=== PATIENT | male | born 1940 | race Caucasian/White ===

== ENCOUNTER → 2016-12-11 | Outpatient (CLI) | payer MEDICARE, OTHER ==
[~2016-12-11] MED LIST: ACET-461 PO; ACET325T49; ACHD5005 PO; ALBU17AE23; ALBU17AE23 IH; ALBU18HF2 INH; ALBU8.5H2 IH; AMLO10TA82 PO; ASPI-892 PO; ATEN25TA PO; ATOR40TA PO; ATOR40TA70 PO; AZEL137S7 NS; AZEL6DRO5 OP; AZELASTINE 0.05% OU; CETI10TA17 PO; CHOL10003 PO; CHOL2000 PO; CITA40TA19 PO; CLOP75TA PO; CLOP75TA28 PO; CTLP20T PO; CYCL10TA9 PO; DCS100C PO; DEXL60CA5 PO; DIPH1TAB25 PO; DOCU100T7 PO; DULO60CA58 PO; ESCI20TA2; FAMO40TA6 PO; FISH OIL 1,2001 EAC1 PO; FLUO20CA42 PO; FRSM40T PO; GABA600T2 PO; HYDR-2941 PO; HYDR-34 PO; HYDR-3816 PO; HYDR1TAB66 PO; IPRA0.2S51 IH; IPRA30SP NS; IPRATROPIUM 0.06% NSEACH; LACT1CAP8 PO; LEVO5TAB2; LEVO750T39 PO; LOSA100T16 PO; LOSA100T28 PO; MELO-195 PO; METR500T PO; NFIPRATRNS NS; NITR0.3T6 SL; NTR.4SL SL; OMEP-10; ONDN4T PO; PANT40SU PO; PNT40TEC PO; PREG100C PO; RT-ALBUINH IH; SENN1TAB76 PO; SIMV80TA3 PO; ZOLP10TA5 PO; ZYRTEC OTC PO; [UNRECOGNIZED DRUG - SUPPLY]
[2016-12-11 15:12] LABS: RED BLOOD COUNT 4.67 10^6/uL (4.35-5.85)
--- NOTE | 2016-12-11 15:19 | Diagnostic Imaging Report ---
INDICATION: Cough and congestion with shortness of breath x 4 days. TECHNIQUE: Two view chest, 3:09 p.m. CORRELATION STUDY: 10/19/2015. FINDINGS: The heart size, mediastinal configuration and pulmonary vasculature are within normal limits. Lung grant are mildly hyperinflated. There is suggestion of perhaps minimal increased density at the left lung base which may reflect minimal atelectasis or less likely infiltrate. Multilevel degenerative changes with bridging osteophytes of the thoracic spine. Old healed right superior rib fractures. IMPRESSION: Suggestion of a very small area of atelectasis or early developing infiltrate at the left lung base superimposed on hyperinflated lung grant. Dictated by: Dictated on workstation # [id number]
== END ==
LOC: RAD 14:19
PROVIDERS: ATTEND Nurse Practitioner
DX: R05 Cough (principal); R09.89 Other specified symptoms and signs involving the circulatory and respiratory systems
CPT/HCPCS: 36415; 71020; 85027

== ENCOUNTER 2016-12-25 10:10 | Observation (INO) | payer MEDICARE, OTHER ==
[~2016-12-25] VITALS: Ht 177.8 cm; Wt 107.6 kg
[~2016-12-25 10:10] MED LIST changes: -ALBU18HF2 INH; -CYCL10TA9 PO; -PREG100C PO
[2016-12-25] MEDS ORDERED: NS IV 1000 ML 3,000 ML IV PRN (10:30)
[2016-12-25 11:05] LABS: BASOPHILS % (AUTO) 0 % (0-10); EOSINOPHILS # (AUTO) 0.1 10^3/uL (0.0-0.3); EOSINOPHILS % (AUTO) 2 % (0-10); LYMPHOCYTES # (AUTO) 1.5 X 10^3 (1.0-4.0); LYMPHOCYTES % (AUTO) 16 % (12-44); MEAN CORPUSCULAR HEMOGLOBIN 30 PG (25-34); MEAN CORPUSCULAR HGB CONC 33 G/DL (32-36); MEAN CORPUSCULAR VOLUME 91 FL (80-99); MEAN PLATELET VOLUME 9.9 FL (7.4-10.4); MONOCYTES # (AUTO) 1.4 X 10^3 (0.0-1.0); MONOCYTES % (AUTO) 15 % (0-12); NEUTROPHILS % (AUTO) 67 % (42-75); PLATELET COUNT 212 10^3/uL (130-400); RED BLOOD COUNT 4.82 10^6/uL (4.35-5.85); RED CELL DISTRIBUTION WIDTH 14.9 % (10.0-14.5); WHITE BLOOD COUNT 9.1 10^3/uL (4.3-11.0)
--- NOTE | 2016-12-25 11:07 | Diagnostic Imaging Report ---
INDICATION: Hypotension. Portable chest 10:54 a.m. Heart size and pulmonary vascularity are normal. Lungs are clear. There are no effusions or pneumothoraces. IMPRESSION: Negative chest. Dictated by: Dictated on workstation # [id number]
[2016-12-25 11:15] LABS: PROTHROMBIN TIME PATIENT 12.9 SEC (12.2-14.7)
[2016-12-25 11:24] LABS: ALANINE AMINOTRANSFERASE 44 U/L (0-55); ALBUMIN 3.3 G/DL (3.2-4.5); ANION GAP 7 MMOL/L (5-14); ASPARTATE AMINO TRANSFERASE 22 U/L (5-34); BILIRUBIN,TOTAL 0.8 MG/DL (0.1-1.0); BLOOD UREA NITROGEN 38 MG/DL (7-18); BUN/CREATININE RATIO 37; CALCIUM 8.4 MG/DL (8.5-10.1); CARBON DIOXIDE 24 MMOL/L (21-32); CHLORIDE 105 MMOL/L (98-107); CREATININE SERUM 1.03 MG/DL (0.60-1.30); GFR ESTIMATED > 60; GLUCOSE 96 MG/DL (70-105); POTASSIUM 4.8 MMOL/L (3.6-5.0); SODIUM 136 MMOL/L (135-145)
--- NOTE | 2016-12-25 11:26 | ED General ---
General Chief Complaint: Cardiac/General Problems Stated Complaint: LOW BLOOD PRESSURE Nursing Triage Note: ARRIVED VIA WC FROM HOME. STATES HIS BP HAS BEEN LOW X2 DAYS ET UNABLE TO GET IT UP. Nursing Sepsis Screen: No Definite Risk Source of Information: Patient Exam Limitations: No Limitations History of Present Illness Time Seen by Provider: 10:15 Initial Comments Here from home with report of low blood pressure over the last couple of days. He is very weak when he tries to get up. Recently treated for pneumonia but states that is improved. Denies nausea or vomiting. Denies fevers. Does report 20 pound weight loss in the last couple of months. His is in the hospital and he is at home tending for himself with respect to meals. He admits to not eating very much and states he is drinking okay but not sure. He states that his blood pressure home was too low for his blood pressure cuff to read Timing/Duration: 2-3 Days, Getting Worse Severity: Moderate Associated Systoms: No Chest Pain, No Fever/Chills, No Nausea/Vomiting, No Shortness of Air, Weakness Allergies and Home Medications Allergies Coded Allergies: Sulfa (Sulfonamide Antibiotics) (Verified Allergy, Unknown, 08/20/15) Home Medications Acetaminophen 500 Mg Tablet, 1,000 MG PO Q6H PRN, (Reported) TAKES 2 (500 MG) TABLETS Albuterol Sulfate 18 Gm Hfa.aer.ad, 2 PUFF INH Q4H PRN for SHORTNESS OF BREATH, (Reported) Aspirin 81 Mg Tablet., 81 MG PO DAILY, (Reported) Atenolol 25 Mg Tablet, 25 MG PO BID, (Reported) Atorvastatin Calcium 40 Mg Tablet, 40 MG PO HS, (Reported) Clopidogrel Bisulfate 75 Mg Tablet, 75 MG PO EVERY OTHER DAY, (Reported) Dexlansoprazole 60 Mg Cap., 60 MG PO DAILY, (Reported) Docusate Sodium 100 Mg Capsule, 100 MG PO BID PRN for CONSTIPATION, (Reported) Duloxetine HCl 60 Mg Capsule., 60 MG PO BID, (Reported) Famotidine 40 Mg Tablet, 40 MG PO HS, (Reported) Gabapentin 600 Mg Tablet, 600 MG PO TID, (Reported) Hydrocodone/Acetaminophen 1 Each Tablet, 1 TAB PO TID PRN for PAIN, (Reported) Ipratropium [place] 15 Ml Naspr, 2 SPRAYS NS DAILY PRN for ALLERGIES, (Reported) Losartan Potassium 100 Mg Tablet, 100 MG PO DAILY, (Reported) Nitroglycerin 0.4 Mg Tab, 0 SL PRN, (Reported) 1 TAB EVERY 5 MINUTES X 3 DOSES NEEDED FOR CHEST PAIN [place]-3 Fatty Acids/Fish Oil 1 Each Capsule, 1,200 MG PO DAILY, (Reported) Pregabalin 100 Mg Capsule, 100 MG PO BID, (Reported) Zolpidem Tartrate 10 Mg Tablet, 10 MG PO HS, (Reported) Constitutional: see HPI, No chills, No fever, weakness EENTM: see HPI Respiratory: no symptoms reported, No short of breath, No wheezing Cardiovascular: No chest pain, edema, No palpitations Gastrointestinal: No abdominal pain, No nausea, No vomiting Genitourinary: no symptoms reported, No dysuria, No pain Musculoskeletal: No back pain, muscle weakness Skin: lesions (abrasion to the forehead from fall) Psychiatric/Neurological: Denies Headache, Weakness Hematologic/Lymphatic: No Symptoms Reported All Other Systems Reviewed Negative Unless Noted: Yes Past Iigvgkk-Yjcsuf-Clkvtp Hx Patient Social History Alcohol Use: Occasionally Uses Recreational Drug Use: No Smoking Status: Former Smoker Former Smoker/When Quit: December 30, 2011 Recent Foreign Travel: No Contact w/Someone Who Travel: No Recent Infectious Disease Expo: Yes Recent Hopitalizations: Yes Immunizations Up To Date Tetanus Booster (TDap): More than 5yrs PED Vaccines UTD: No Date of Pneumonia Vaccine: May 31, 2014 Date of Influenza Vaccine: May 31, 2015 Surgeries HX Surgeries: Yes (back, prostate, colonoscopy, CARDIAC CATH/STENT) Surgeries: Cardiac, Coronary Stent, Eye Surgery, Orthopedic Respiratory Hx Respiratory Disorders: Yes (COPD) Respiratory Disorders: Pneumonia, Sleep Apnea, COPD Cardiovascular Hx Cardiac Disorders: Yes (STENTS) Cardiac Disorders: Coronary Artery Disease, High Cholesterol, Hypertension Neurological Hx Neurological Disorders: No Reproductive System Hx Reproductive Disorders: No Sexually Transmitted Disease: No HIV/AIDS: No Genitourinary Hx Genitourinary Disorders: Yes Gastrointestinal Hx Gastrointestinal Disorders: Yes (ABDOMINAL PAIN AT TIMES) Gastrointestinal Disorders: Gastroesophageal Reflux, Diverticulosis, Hemorrhoids Musculoskeletal Hx Musculoskeletal Disorders: Yes (ARTHRITIS "ALL OVER") Musculoskeletal Disorders: Arthritis Endocrine Hx Endocrine Disorders: No HEENT HX ENT Disorders: No Loss of Vision: Denies Hearing Impairment: Denies Cancer Hx Cancer: No Psychosocial Hx Psychiatric Problems: Yes Behavioral Health Disorders: Depression Integumentary HX Skin/Integumentary Disorder: No Blood Transfusions Hx Blood Disorders: No Reviewed Nursing Assessment Reviewed/Agree w Nursing PMH: Yes Family Medical History Significant Family History: No Pertinent Family Hx Family Medial History: Patient reports no known family medical history. Physical Exam-Suspected Sepsis Physical Exam Vital Signs Vital Sign - Last 12Hours 12/25/16 10:10 Temp 97.4 Pulse 74 Resp 16 B/P (MAP) 77/56 Pulse Ox 100 Capillary Refill : Less Than 3 Seconds Blood Pressure Mean: 63 General Appearance: WD/WN, Mild Distress (weakness) HEENT: PERRL/EOMI, Pharynx Normal Neck: Non Tender, Supple Respiratory: Lungs Clear, Normal Breath Sounds Cardiovascular: Regular Rate, Rhythm, No Murmur Gastrointestinal: Non Tender, Soft Back: Normal Inspection, No CVA Tenderness, No Vertebral Tenderness Extremity: Normal Range of Motion, Non Tender, Pedal Edema (1+ bilateral lower extremities) Neurologic/Psychiatric: Alert, Oriented x3, Motor Weakness (global) Skin: warm/dry, pallor, other (2 x 2 centimeter abrasion to the center of the forehead at hairline.) Focused Exam Lactic Acid Level Laboratory Tests Test 12/25/16 10:46 Lactic Acid Level 1.12 MMOL/L (0.50-2.00) Progress/Results/Core Measures Suspected Sepsis Recent Fever Within 48 Hours: Yes Infection Criteria Present: Suspected New Infection New/Unexplained Altered Menta: No Sepsis Screen: No Definite Risk Sepsis Diagnosis: SIRS Temperature:97.4 Pulse: 74 Respiratory Rate: 16 Laboratory Tests 12/25/16 10:46: White Blood Count 9.1 Blood Pressure 77 /56 Mean: 63 Laboratory Tests 12/25/16 10:46: Creatinine 1.03, INR Comment 1.0, Platelet Count 212, Total Bilirubin 0.8 Results/Orders Lab Results Laboratory Tests Test 12/25/16 10:46 12/25/16 11:23 Range/Units White Blood Count 9.1 4.3-11.0 10^3/uL Red Blood Count 4.82 4.35-5.85 10^6/uL Hemoglobin 14.6 13.3-17.7 G/DL Hematocrit 44 40-54 % Mean Corpuscular Volume 91 80-99 FL Mean Corpuscular Hemoglobin 30 25-34 PG Mean Corpuscular Hemoglobin Concent 33 32-36 G/DL Red Cell Distribution Width 14.9 H 10.0-14.5 % Platelet Count 212 130-400 10^3/uL Mean Platelet Volume 9.9 7.4-10.4 FL Neutrophils (%) (Auto) 67 42-75 % Lymphocytes (%) (Auto) 16 12-44 % Monocytes (%) (Auto) 15 H 0-12 % Eosinophils (%) (Auto) 2 0-10 % Basophils (%) (Auto) 0 0-10 % Neutrophils # (Auto) 6.0 1.8-7.8 X 10^3 Lymphocytes # (Auto) 1.5 1.0-4.0 X 10^3 Monocytes # (Auto) 1.4 H 0.0-1.0 X 10^3 Eosinophils # (Auto) 0.1 0.0-0.3 10^3/uL Basophils # (Auto) 0.0 0.0-0.1 10^3/uL Prothrombin Time 12.9 12.2-14.7 SEC INR Comment 1.0 0.8-1.4 Activated Partial Thromboplast Time 26 24-35 SEC Sodium Level 136 135-145 MMOL/L Potassium Level 4.8 3.6-5.0 MMOL/L Chloride Level 105 98-107 MMOL/L Carbon Dioxide Level 24 21-32 MMOL/L Anion Gap 7 5-14 MMOL/L Blood Urea Nitrogen 38 H 7-18 MG/DL Creatinine 1.03 0.60-1.30 MG/DL Estimat Glomerular Filtration Rate > 60 BUN/Creatinine Ratio 37 Glucose Level 96 70-105 MG/DL Lactic Acid Level 1.12 0.50-2.00 MMOL/L Calcium Level 8.4 L 8.5-10.1 MG/DL Total Bilirubin 0.8 0.1-1.0 MG/DL Aspartate Amino Transf (AST/SGOT) 22 5-34 U/L Alanine Aminotransferase (ALT/SGPT) 44 0-55 U/L Alkaline Phosphatase 71 40-136 U/L Troponin I < 0.30 <0.30 NG/ML Total Protein 6.0 L 6.4-8.2 G/DL Albumin 3.3 3.2-4.5 G/DL Urine Color YELLOW Urine Clarity CLEAR Urine pH 6 5-9 Urine Specific [place] 1.015 L 1.016-1.022 Urine Protein NEGATIVE NEGATIVE Urine Glucose (UA) NEGATIVE NEGATIVE Urine Ketones NEGATIVE NEGATIVE Urine Nitrite NEGATIVE NEGATIVE Urine Bilirubin NEGATIVE NEGATIVE Urine Urobilinogen NORMAL NORMAL MG/DL Urine Leukocyte Esterase NEGATIVE NEGATIVE Urine RBC (Auto) NEGATIVE NEGATIVE Urine RBC NONE /HPF Urine WBC NONE /HPF Urine Squamous Epithelial Cells 0-2 /HPF Urine Crystals NONE /LPF Urine Bacteria NEGATIVE /HPF Urine Casts NONE /LPF Urine Mucus NEGATIVE /LPF Urine Culture Indicated NO My Orders Orders - CALIN QUILES MD Cbc With Automated Diff (12/25/16 10:25) Comprehensive Metabolic Panel (12/25/16 10:25) Lactic Acid Analyzer (12/25/16 10:25) Blood Culture (12/25/16 10:25) Sputum Culture (12/25/16 10:25) Ua Culture If Indicated (12/25/16 10:25) Protime With Inr (12/25/16 10:25) Partial Thromboplastin Time (12/25/16 10:25) Chest 1 View, Ap/Pa Only (12/25/16 10:25) O2 (12/25/16 10:25) Saline Lock/Iv-Start (12/25/16 10:25) Saline Lock/Iv-Start (12/25/16 10:25) Ekg Tracing (12/25/16 10:25) Troponin I (12/25/16 10:25) Vital Signs Adult Sepsis Patie Q1HR (12/25/16 10:25) Remove Rings In Anticipation O (12/25/16 10:25) Ns Iv 1000 Ml (Sodium Chloride 0.9%) (12/25/16 10:30) Ct Head Wo (12/25/16 11:26) Medications Given in ED Current Medications Medications Dose Ordered Sig/Zohreh Route Start Time Stop Time Status Last Admin Dose Admin Sodium Chloride 3,000 ml @ 1,500 mls/hr PRN PRN IV 12/25/16 10:30 12/25/16 10:35 1,500 MLS/HR Vital Signs/I&O Vital Sign - Last 12Hours 12/25/16 12/25/16 10:10 12:00 Temp 97.4 Pulse 74 57 60 64 Resp 16 B/P (MAP) 77/56 Pulse Ox 100 Capillary Refill : Less Than 3 Seconds Blood Pressure Mean: 63 Progress Note : Progress Note Seen and evaluated. Initial blood pressure 70s over 50s. IV, labs, UA, EKG, chest x-ray, normal saline 30 mL/kg bolus, blood cultures and lactic acid ordered. We will get CT head due to fall yesterday and abrasion to the forehead. Monitor patient. Patient is improving throughout course of fluid administration. 1215: Orthostatic blood pressures taken and patient remains orthostatic with respect to blood pressure with a drop of 20 points on systolic pressure. Heart rate is remaining the same and I think this is medication effect. Patient states he feels better but still gets dizzy with standing and still is on the hypotensive side. 1242: I did discuss the case with Dr. Piper. She accepts patient for admission, observation status. She is finishing his third liter of fluid now and blood pressure is 98/49 with heart rate of 60. ECG Initial ECG Impression Date: Dec 25, 2016 Initial ECG Impression Time: 10:19 Initial ECG Rate: 59 Initial ECG Rhythm: Normal Sinus Comment Sinus rhythm with normal axis. No evidence of ST elevation MO. Similar to previous of 10/19/15. Interpreted by me. Diagnostic Imaging Diagonstic Imaging: Xray Plain Films/CT/US/NM/MRI: chest Comments [facility] [place], [place] NAME: STEPHANY TIJERINA [facility] REC#: [id number] PT STATUS: REG ER : 1940 PHYSICIAN: CALIN QUILES MD ADMIT DATE: 12/25/16/ER Draft Date of Exam:12/25/16 CHEST 1 VIEW, AP/PA ONLY INDICATION: Hypotension. Portable chest 10:54 a.m. Heart size and pulmonary vascularity are normal. Lungs are clear. There are no effusions or pneumothoraces. IMPRESSION: Negative chest. Dictated on workstation # [id number] Dict: 12/25/16 1104 Trans: 12/25/16 1107 [facility] [id number] Interpreted by: CALIN ALMANZAR Electronically signed by: Diagonstic Imaging: CT Plain Films/CT/US/NM/MRI: head Comments [facility]. [place], [place] NAME: STEPHANY TIJERINA [facility] REC#: [id number] PT STATUS: REG ER : 1940 PHYSICIAN: CALIN QUILES MD ADMIT DATE: 12/25/16/ER Draft Date of Exam:12/25/16 CT HEAD WO PROCEDURE: CT head without contrast. TECHNIQUE: Multiple contiguous axial images were obtained through the brain without the use of intravenous contrast. INDICATION: Low blood pressure and confusion when the patient stands. No prior similar studies are available for comparison. FINDINGS: There is no intracranial hemorrhage. Prominent periventricular and deep white hypodensities are likely secondary to chronic microvascular ischemic changes. No ventriculomegaly and no extra-axial fluid collection seen. The calvarium, the paranasal sinuses and orbits appear grossly unremarkable. IMPRESSION: White matter findings are suggestive of chronic microvascular ischemic changes. No intracranial hemorrhage. Dictated on workstation # [id number] Dict: 12/25/16 1153 Trans: 12/25/16 1158 [facility] [id number] Interpreted by: JHON DIAZ MD Electronically signed by: Departure Communication Time/Spoke to Admitting Phy: 12:42 Impression Impression: Primary Impression: Orthostatic hypotension Disposition: ADMITTED INPATIENT Condition: Stable Decision to Admit Reason: Admit from ER (General) Decision to Admit/Date: Dec 25, 2016 Time/Decision to Admit Time: 12:42 Departure-Patient Inst. Referrals: KENYETTA PIPER DO (PCP/Family) Primary Care Physician CALIN QUILES MD Dec 25, 2016 11:26
[2016-12-25 11:30] LABS: TROPONIN I < 0.30 NG/ML (<0.30)
[2016-12-25 11:36] LABS: BILIRUBIN,URINE NEGATIVE (NEGATIVE); KETONES,URINE NEGATIVE (NEGATIVE); LEUKOCYTE ESTERASE ,URINE NEGATIVE (NEGATIVE); NITRITE,URINE NEGATIVE (NEGATIVE); PH,URINE 6 (5-9); PROTEIN,URINE NEGATIVE (NEGATIVE); UROBILINOGEN,URINE NORMAL (NORMAL)
[2016-12-25 11:45] LABS: SQUAMOUS EPITHELIAL CELL,UR 0-2 /HPF
--- NOTE | 2016-12-25 11:58 | Diagnostic Imaging Report ---
PROCEDURE: CT head without contrast. TECHNIQUE: Multiple contiguous axial images were obtained through the brain without the use of intravenous contrast. INDICATION: Low blood pressure and confusion when the patient stands. No prior similar studies are available for comparison. FINDINGS: There is no intracranial hemorrhage. Prominent periventricular and deep white hypodensities are likely secondary to chronic microvascular ischemic changes. No ventriculomegaly and no extra-axial fluid collection seen. The calvarium, the paranasal sinuses and orbits appear grossly unremarkable. IMPRESSION: White matter findings are suggestive of chronic microvascular ischemic changes. No intracranial hemorrhage. Dictated by: Dictated on workstation # [id number]
[2016-12-25] MEDS ORDERED: PREG100C PO (12:49)
[2016-12-25] MEDS ORDERED: ALBU18HF2 INH (12:49)
[2016-12-25] MEDS ORDERED: CATHETER FLUSH 10 ML SYR IV PRN (14:30)
[2016-12-25] MEDS ORDERED: CYCL10TA9 PO (14:38)
[2016-12-25 14:40] VITALS: BP 141/74
[2016-12-25] MEDS: NS IV 1000 ML 1,000 ML IV SCH (14:47)
[2016-12-25] MEDS ORDERED: RT-ALBUTEROL SULF 2.5 MG/3 ML PRE-MIX VIAL IH PRN (16:30)
[2016-12-25 16:50] VITALS: BP 104/54
[2016-12-25] MEDS ORDERED: PATIENT MAY USE OWN MEDS, ALL MC SCH (18:15)
[2016-12-25] MEDS ORDERED: TEMAZEPAM 15 MG (RESTORIL) CAP PO PRN (18:15)
[2016-12-25] MEDS ORDERED: RX-ALBUTEROL INHALER (VENTOLIN HFA) 18 GM IH PRN (18:15)
[2016-12-25] MEDS ORDERED: ACETAMINOPHEN 500 MG TAB (TYLENOL) PO PRN (18:15)
[2016-12-25] MEDS ORDERED: CYCLOBENZAPRINE 10 MG (FLEXERIL) TAB PO PRN (18:15)
--- NOTE | 2016-12-25 18:17 | History & Physicial ---
History of Present Illness History of Present Illness Reason for visit/HPI This is a 76 year old male who presented to the emergency room with complaint of low blood pressure and weakness. He was found to be hypotensive in the emergency room with a blood pressure of 77/56 and was severely orthostatic as well. He was given IV boluses in the emergency room but remained hypotensive and orthostatic. He does admit to poor recent oral intake due to recent pneumonia and his being in the hospital. His workup in the emergency room was essentially normal except for his hypotension and orthostasis. It was decided to admit him for observation and monitor his vitals and adjust his blood pressure medications. Date of Admission Dec 25, 2016 at 13:08 I consulted on this patient on 12/25/16 18:12 Attending Physician Haylee Piper DO Admitting Physician Haylee Piper DO Consult Allergies and Home Medications Allergies Coded Allergies: Sulfa (Sulfonamide Antibiotics) (Verified Allergy, Unknown, 08/20/15) Home Medications Acetaminophen 500 Mg Tablet, 1,000 MG PO Q6H PRN for PAIN-MILD, (Reported) TAKES 2 (500 MG) TABLETS Albuterol Sulfate 18 Gm Hfa.aer.ad, 2 PUFF INH Q4H PRN for SHORTNESS OF BREATH, (Reported) Aspirin 81 Mg Tablet.dr, 81 MG PO DAILY, (Reported) Atenolol 25 Mg Tablet, 25 MG PO BID, (Reported) Atorvastatin Calcium 40 Mg Tablet, 40 MG PO DAILY, (Reported) Cyclobenzaprine HCl 10 Mg Tablet, 10 MG PO TID PRN for MUSCLE SPASMS, (Reported) Dexlansoprazole 60 Mg Cap.mp, 60 MG PO DAILY, (Reported) Docusate Sodium 100 Mg Capsule, 100 MG PO HS, (Reported) Duloxetine HCl 60 Mg Capsule.dr, 60 MG PO BID, (Reported) Ipratropium [place] 15 Ml Naspr, 2 SPRAYS NS DAILY PRN for ALLERGIES, (Reported) Losartan Potassium 100 Mg Tablet, 100 MG PO DAILY, (Reported) [place]-3 Fatty Acids/Fish Oil 1 Each Capsule, 1,200 MG PO DAILY, (Reported) Pregabalin 100 Mg Capsule, 100 MG PO BID, (Reported) Past [place]-Hgvvgw-Wqeaak Hx Patient Social History Alcohol Use: Denies Use Recreational Drug Use: No Smoking Status: Never a Smoker Former smoker/When Quit: December 30, 2011 Physical Abuse Screen: No Sexual Abuse: No Recent Foreign Travel: No Contact w/other who traveled: No Recent Hopitalizations: No Recent Infectious Disease Expo: No Immunizations Up To Date Tetanus Booster (TDap): More than 5yrs Date of Pneumonia Vaccine: May 31, 2014 Date of Influenza Vaccine: May 31, 2015 Seasonal Allergies Seasonal Allergies: Yes Surgeries HX Surgeries: Yes (back, prostate, colonoscopy, CARDIAC CATH/STENT) Surgeries: Cardiac, Coronary Stent, Eye Surgery, Orthopedic Respiratory Hx Respiratory Disorders: Yes (COPD) Respiratory Disorders: COPD Cardiovascular Hx Cardiovascular Disorders: Yes (STENTS) Cardiac Disorders: Coronary Artery Disease, High Cholesterol, Hypertension Neurological Hx Neurological Disorders: No Reproductive System Hx Reproductive Disorders: No Sexually Transmitted Disease: No HIV/AIDS: No Genitourinary Hx Genitourinary Disorders: Yes Gastrointestinal Hx Gastrointestinal Disorders: Yes (ABDOMINAL PAIN AT TIMES) Gastrointestinal Disorders: Gastroesophageal Reflux, Diverticulosis, Hemorrhoids Musculoskeletal Hx Musculoskeletal Disorders: Yes (ARTHRITIS "ALL OVER") Musculoskeletal Disorders: Arthritis Endocrine Hx Endocrine Disorders: No HEENT HX ENT Disorders: No Loss of Vision: Denies Hearing Impairment: Denies Cancer Hx Cancer: No Psychosocial Hx Psychiatric Problems: Yes Behavioral Health Disorders: Depression Integumentary HX Skin/Integumentary Disorder: No Blood Transfusions Hx Blood Disorders: No Adverse Reaction to a Blood Tr: No Reviewed Nursing Assessment Reviewed/Agree w Nursing PMH: Yes Family Medical History Significant Family History: No Pertinent Family Hx Family Hx: Patient reports no known family medical history. Constitutional: weakness EENTM: No blurred vision, No dental problems, No double vision, No ear discharge, No ear pain, No epistaxis, No eye pain, No hearing loss, No hoarseness, No mouth pain, No mouth swelling, No no symptoms reported, No nose congestion, No nose pain, No other, No see HPI, No tearing, No throat pain, No throat swelling, No vision loss Respiratory: No no symptoms reported, No see HPI, No cough, No dyspnea on exertion, No hemoptysis, No orthopnea, No phlegm, No short of breath, No stridor , No wheezing, No other Cardiovascular: other (low blood pressure) Gastrointestinal: No RUQ, No LUQ, No RLQ, No LLQ, No no symptoms reported, No see HPI, No abdominal pain, No constipation, No diarrhea, No dysphagia, No hematemesis, No heartburn, No jaundice, No loss of appetite, No melena, No nausea, No vomiting, No other Genitourinary: No no symptoms reported, No see HPI, No decreased output, No discharge, No dysuria, No frequency, No hematuria, No hesitancy, No incontinence , No nocturia, No pain, No other Musculoskeletal: back pain (chronic) Skin: No no symptoms reported, No see HPI, No change in color, No change in hair/nails, No dryness, No hx of skin cancer, No lesions, No lumps, No pruritus , No rash, No other Psychiatric/Neurological: Pre-Existing Deficit, Weakness Physical Exam Vital Signs Vital Sign - Last 12Hours 12/25/16 12/25/16 10:10 14:40 Temp 97.4 Pulse 74 Resp 16 B/P (MAP) 77/56 Pulse Ox 100 O2 Delivery Room Air Capillary Refill : Less Than 3 Seconds General Appearance: No Apparent Distress HEENT: Normal ENT Inspection Neck: Supple Respiratory: Lungs Clear Cardiovascular: Regular Rate, Rhythm, Systolic Murmur Gastrointestinal: Normal Bowel Sounds, Non Tender, Soft Rectal: Deferred Back: No CVA Tenderness Extremity: Non Tender, No Calf Tenderness, No Pedal Edema Neurologic/Psychiatric: Alert, Oriented x3, Motor Weakness (generalized) Skin: Normal Color, Warm/Dry Comments Laboratory Tests 12/25/16 10:46: White Blood Count 9.1, Red Blood Count 4.82, Hemoglobin 14.6, Hematocrit 44, Mean Corpuscular Volume 91, Mean Corpuscular Hemoglobin 30, Mean Corpuscular Hemoglobin Concent 33, Red Cell Distribution Width 14.9H, Platelet Count 212, Mean Platelet Volume 9.9, Neutrophils (%) (Auto) 67, Lymphocytes (%) (Auto) 16, Monocytes (%) (Auto) 15H, Eosinophils (%) (Auto) 2, Basophils (%) (Auto) 0, Neutrophils # (Auto) 6.0, Lymphocytes # (Auto) 1.5, Monocytes # (Auto) 1.4H, Eosinophils # (Auto) 0.1, Basophils # (Auto) 0.0, Prothrombin Time 12.9, INR Comment 1.0, Activated Partial Thromboplast Time 26, Sodium Level 136, Potassium Level 4.8, Chloride Level 105, Carbon Dioxide Level 24, Anion Gap 7, Blood Urea Nitrogen 38H, Creatinine 1.03, Estimat Glomerular Filtration Rate > 60, BUN/Creatinine Ratio 37, Glucose Level 96, Lactic Acid Level 1.12, Calcium Level 8.4L, Total Bilirubin 0.8, Aspartate Amino Transf (AST/SGOT) 22, Alanine Aminotransferase (ALT/SGPT) 44, Alkaline Phosphatase 71, Troponin I < 0.30, Total Protein 6.0L, Albumin 3.3 12/25/16 11:23: Urine Color YELLOW, Urine Clarity CLEAR, Urine pH 6, Urine Specific [place] 1.015L, Urine Protein NEGATIVE, Urine Glucose (UA) NEGATIVE, Urine Ketones NEGATIVE, Urine Nitrite NEGATIVE, Urine Bilirubin NEGATIVE, Urine Urobilinogen NORMAL, Urine Leukocyte Esterase NEGATIVE, Urine RBC (Auto) NEGATIVE, Urine RBC NONE, Urine WBC NONE, Urine Squamous Epithelial Cells 0-2, Urine Crystals NONE, Urine Bacteria NEGATIVE, Urine Casts NONE, Urine Mucus NEGATIVE, Urine Culture Indicated NO Assessment/Plan Assessment and Plan 1. Acute Hypotension with Orthostasis--admit, hydrate, hold BP meds, monitor BP 2. Sinus Bradycardia--hold atenolol and monitor on telemetry 3. COPD--stable 4. Recent pneumonia--resolved 5. Chronic Back Pain--stable Problems: Clinical Quality Measures DVT/VTE Risk/Contraindication: Risk Factor Score Per Nursin RFS Level Per Nursing on Admit: 4+=Very High HAYLEE PIPER DO Dec 25, 2016 18:17
[2016-12-25 18:25] VITALS: BP 131/61
[2016-12-25 20:05] VITALS: BP 130/74
[2016-12-25] MEDS: Duloxetine HCl 60 MG PO SCH (20:44)
[2016-12-25] MEDS: PREGABALIN 50 MG (LYRICA) CAP PO SCH (20:44)
[2016-12-25] MEDS ORDERED: DOCUSATE SODIUM 100 MG (COLACE) CAP PO SCH (21:00)
[2016-12-25] MEDS ORDERED: ATORVASTATIN 40 MG (LIPITOR) TABLET PO SCH (21:00)
[2016-12-26 00:31] VITALS: BP 128/70
[2016-12-26] MEDS: NS IV 1000 ML 1,000 ML IV SCH (02:30)
[2016-12-26 04:34] VITALS: BP 141/66
[2016-12-26 06:55] LABS: BASOPHILS % (AUTO) 0 % (0-10); EOSINOPHILS # (AUTO) 0.1 10^3/uL (0.0-0.3); EOSINOPHILS % (AUTO) 2 % (0-10); LYMPHOCYTES # (AUTO) 1.9 X 10^3 (1.0-4.0); LYMPHOCYTES % (AUTO) 23 % (12-44); MEAN CORPUSCULAR HEMOGLOBIN 30 PG (25-34); MEAN CORPUSCULAR HGB CONC 33 G/DL (32-36); MEAN CORPUSCULAR VOLUME 93 FL (80-99); MEAN PLATELET VOLUME 10.3 FL (7.4-10.4); MONOCYTES # (AUTO) 1.2 X 10^3 (0.0-1.0); MONOCYTES % (AUTO) 15 % (0-12); NEUTROPHILS % (AUTO) 61 % (42-75); PLATELET COUNT 170 10^3/uL (130-400); RED BLOOD COUNT 4.31 10^6/uL (4.35-5.85); RED CELL DISTRIBUTION WIDTH 15.1 % (10.0-14.5); WHITE BLOOD COUNT 8.1 10^3/uL (4.3-11.0)
[2016-12-26 07:16] LABS: ALANINE AMINOTRANSFERASE 35 U/L (0-55); ALBUMIN 2.9 G/DL (3.2-4.5); ANION GAP 7 MMOL/L (5-14); ASPARTATE AMINO TRANSFERASE 19 U/L (5-34); BILIRUBIN,TOTAL 0.5 MG/DL (0.1-1.0); BLOOD UREA NITROGEN 29 MG/DL (7-18); BUN/CREATININE RATIO 32; CALCIUM 7.8 MG/DL (8.5-10.1); CARBON DIOXIDE 23 MMOL/L (21-32); CHLORIDE 110 MMOL/L (98-107); CREATININE SERUM 0.92 MG/DL (0.60-1.30); GFR ESTIMATED > 60; GLUCOSE 89 MG/DL (70-105); POTASSIUM 4.9 MMOL/L (3.6-5.0); SODIUM 140 MMOL/L (135-145); TOTAL PROTEIN 5.3 G/DL (6.4-8.2)
[2016-12-26 07:30] VITALS: BP 127/74
[2016-12-26] MEDS ORDERED: ASPIRIN E.C. 81 MG (ECOTRIN) TAB PO SCH (09:00)
[2016-12-26] MEDS ORDERED: DEXLANSOPRAZOLE 60 MG PO SCH (09:00)
[2016-12-26] MEDS ORDERED: LOSA100T28 PO (09:08)
[2016-12-26] MEDS ORDERED: ATEN25TA PO (09:08)
--- NOTE | 2016-12-26 09:09 | Discharge Inst-Simple/Standard ---
Discharge Inst-Standard Patient Instructions/Follow Up Plan of Care/Instructions/FU: Fwup with me in 1 week Activity as Tolerated: Yes Discharge Diet: Cardiac Diet KENYETTA BALDWIN DO Dec 26, 2016 09:09
[2016-12-26] MEDS: Duloxetine HCl 60 MG PO SCH (09:13)
--- NOTE | 2016-12-26 09:13 | Discharge Summary ---
Diagnosis/Chief Complaint Date of Admission Dec 25, 2016 at 13:08 Date of Discharge Discharge Date: Dec 26, 2016 Admission Diagnosis Admission Diagnosis 1. Acute Hypotension with Orthostasis--admit, hydrate, hold BP meds, monitor BP 2. Sinus Bradycardia--hold atenolol and monitor on telemetry 3. COPD--stable 4. Recent pneumonia--resolved 5. Chronic Back Pain--stable Discharge Diagnosis 1. Acute Hypotension with Orthostasis--admit, hydrate, hold BP meds, monitor BP 2. Sinus Bradycardia--hold atenolol and monitor on telemetry 3. COPD--stable 4. Recent pneumonia--resolved 5. Chronic Back Pain--stable Reason Hospital Visit This is a 76 year old male who presented to the emergency room with complaint of low blood pressure and weakness. He was found to be hypotensive in the emergency room with a blood pressure of 77/56 and was severely orthostatic as well. He was given IV boluses in the emergency room but remained hypotensive and orthostatic. He does admit to poor recent oral intake due to recent pneumonia and his being in the hospital. His workup in the emergency room was essentially normal except for his hypotension and orthostasis. It was decided to admit him for observation and monitor his vitals and adjust his blood pressure medications. Discharge Summary Hospital Course Hospital Course This is a 76 year old male who presented to the emergency room with complaint of low blood pressure and weakness. He was found to be hypotensive in the emergency room with a blood pressure of 77/56 and was severely orthostatic as well. He was given IV boluses in the emergency room but remained hypotensive and orthostatic. He does admit to poor recent oral intake due to recent pneumonia and his being in the hospital. His workup in the emergency room was essentially normal except for his hypotension and orthostasis. It was decided to admit him for observation and monitor his vitals and adjust his blood pressure medications. He was admitted to the medical floor and his atenolol and cozaar were held. His blood pressure improved with hydration. His pulse also improved up to the 70s from the 50s. He was feeling much better by the following morning and was up ambulating with no weakness and no dizziness. It was decided he could go home with adjustment of his BP meds decreasing his cozaar to 50mg q AM and atenolol to 25mg q HS. He will followup in my office in 1 week. Labs Laboratory Tests 12/25/16 10:46: Red Cell Distribution Width 14.9H, Monocytes (%) (Auto) 15H, Monocytes # (Auto) 1.4H, Blood Urea Nitrogen 38H, Calcium Level 8.4L, Total Protein 6.0L 12/25/16 11:23: Urine Specific Ward 1.015L 12/26/16 05:42: Red Cell Distribution Width 15.1H, Monocytes (%) (Auto) 15H, Monocytes # (Auto) 1.2H, Blood Urea Nitrogen 29H, Calcium Level 7.8L, Total Protein 5.3L, Red Blood Count 4.31L, Hemoglobin 13.0L, Chloride Level 110H, Albumin 2.9L Procedures None. Discharge Physical Examination Allergies: Coded Allergies: Sulfa (Sulfonamide Antibiotics) (Verified Allergy, Unknown, 08/20/15) Vitals & I&Os Vital Signs Date Time Temp Pulse Resp B/P (MAP) Pulse Ox O2 Delivery O2 Flow Rate FiO2 12/26/16 07:30 96.3 70 16 127/74 97 Room Air General Appearance: Alert, Oriented X3, Cooperative, No Acute Distress Respiratory: Clear to Auscultation Cardiovascular: Regular Rate Abdominal: Normal Bowel Sounds, Soft Extremities: No Clubbing, No Cyanosis, No Edema Neuro: Normal Gait, Normal Speech Psych/Mental Status: Mental Status NL, Mood NL Discharge Home Medications Reviewed and agree with Discharge Medication list on patient's Discharge Instruction sheet Instructions to Patient/Family Please see electonic discharge instructions given to patient. Clinical Quality Measures DVT/VTE Risk/Contraindication: Risk Factor Score Per Nursin RFS Level Per Nursing on Admit: 4+=Very High KENYETTA BALDWIN DO Dec 26, 2016 09:13
[2016-12-26] MEDS: PREGABALIN 50 MG (LYRICA) CAP PO SCH (09:26)
== END 2016-12-26 09:08 | disposition home or self-care (01) ==
LOC: EDUNIT# 10:10 → ER 10:12 → UNDOADMOB 13:08 → 4TH 13:08 → UNDODISOB 12-26 11:18
PROVIDERS: ADMIT Family Medicine; ATTEND Family Medicine
DX: I95.1 Orthostatic hypotension (principal); R00.1 Bradycardia, unspecified; J44.9 Chronic obstructive pulmonary disease, unspecified; I10 Essential (primary) hypertension; M54.9 Dorsalgia, unspecified; Z87.01 Personal history of pneumonia (recurrent); Z95.5 Presence of coronary angioplasty implant and graft; Z87.891 Personal history of nicotine dependence
CPT/HCPCS: 36415; 70450; 71010; 80053; 81000; 83605; 84484; 85025; 85610; 85730; 87040; 93005; 94760; 96360; 96361; 99211; G0378

== ENCOUNTER → 2016-12-30 | Outpatient (CLI) | payer MEDICARE, OTHER ==
[~2016-12-30] MED LIST changes: +ALBU18HF2 INH; +CYCL10TA9 PO; +PREG100C PO
--- NOTE | 2017-01-01 08:36 | ECHOCARDIOGRAPHY REPORT ---
DATE OF SERVICE: 12/30/2016 DATE OF SERVICE; 12/30/2016 ORDERING PHYSICIAN: Dr. Evans. PRIMARY PHYSICIAN: Dr. Piper. CLINICAL DIAGNOSIS: Shortness of breath, coronary artery disease. MEASUREMENTS: Left atrium 3.7 Aortic root 3.5 LV diameter, diastolic 4.3. IVS thickness, diastolic 1. LVPW thickness, diastolic 1. DESCRIPTION: Two-dimensional echocardiography shows normal global left ventricular systolic function. The study is technically difficult and not ideal for wall motion analysis. Aortic, mitral and tricuspid valve leaflets, to the extent visualized, seems to have good leaflet excursion. The aortic valve leaflet structure is not very well visualized. There appears to mild mitral annular calcification and mild aortic valve sclerosis. There is no significant pericardial effusion. Doppler imaging does not indicate any significant valvular stenosis. Doppler imaging is indicative of trivial mitral and tricuspid regurgitation. Pulmonary artery systolic pressure is estimated at approximately 25 to 30 mmHg. Good subcostal views are not available. On the views available, there was no evidence of any significant intracardiac shunt. Inferior vena cava appears to be of normal size and does exhibit inspiratory collapse. CONCLUSIONS: 1. Technically difficult study. 2. Normal global left ventricular systolic function with ejection fraction of approximately 50 to 55%. 3. Trivial mitral and tricuspid regurgitation. 4. Pulmonary artery systolic pressure is estimated at 25 to 30 mmHg. Job ID: [id number] DocumentID: [id number] Dictated Date: 12/31/2016 16:16:04 [employer] Date: 01/01/2017 08:07:48 Dictated By: JIM EVANS MD, MA, FACP, FACC,
== END ==
LOC: CARD 10:38
PROVIDERS: ATTEND Internal Medicine Cardiovascular Disease
DX: I25.10 Atherosclerotic heart disease of native coronary artery without angina pectoris (principal); R06.02 Shortness of breath; I65.23 Occlusion and stenosis of bilateral carotid arteries; J43.8 Other emphysema; Z87.891 Personal history of nicotine dependence; E78.4 Other hyperlipidemia; I10 Essential (primary) hypertension; I70.213 Atherosclerosis of native arteries of extremities with intermittent claudication, bilateral legs
CPT/HCPCS: 93306; 93923

== ENCOUNTER 2017-01-16 11:01 | Outpatient (CLI) | payer MEDICARE, OTHER ==
[~2017-01-16] VITALS: Ht 177.8 cm; Wt 107.6 kg
[2017-01-16] MEDS ORDERED: TRIAMCINOLONE ACET (KENALOG-40) 40 MG/ML 1 ML VIAL ONE (11:15)
[2017-01-16] MEDS ORDERED: BUPIVACAINE 0.25% 30 ML (SENSORCAINE) VIAL ONE (11:15)
[2017-01-16 11:21] VITALS: BP 127/57
[2017-01-16 12:00] VITALS: BP 137/57
--- NOTE | 2017-01-16 12:41 | Pain Medicine-Procedure ---
Procedure Pre-Op/Post-Op Diagnosis Diagnosis: disc disorder with radiculopathy, lumbar Indications for Operation Low back pain Attending Surgeon Magui Procedure Date of Service: January 16, 2017 Procedure: Lumbar Epidural Steroid Injection at the L5-S1 level under Fluoroscopic Guidance Procedure: Patient was identified in the holding area. After risks, benefits, and alternatives were discussed with the patient, informed consent was obtained. Patient was brought to the fluoroscopy suite and placed prone on the procedure room table. A time out was performed. Vital signs were monitored throughout the procedure. The patients low back was prepped and draped in the usual sterile fashion. The patients skin was anesthetized using 2% Lidocaine. A Tuohy needle was inserted and advanced to the L5-S1 epidural space under fluoroscopic guidance using the loss of resistance technique and intermittent projection of fluoroscopy. There was no paresthesia with needle placement. The needle position was confirmed in both the AP and lateral view. After negative aspiration 2ml of contrast was injected under live fluoroscopy which showed good spread of the contrast in the epidural space at the appropriate level, there was no intravascular or subarachnoid spread. Again, after negative aspiration for heme or CSF, 2 ml of 0.25% Bupivicaine, 2ml of preservative free normal saline, and 80mg of Kenalog was injected. The needle was removed and a sterile bandage was placed and the patient was transferred to the recovery area in stable condition. After a brief period of observation, patient was discharged to home with no new neurological deficits and no apparent complications. Complications none YAYA MARIE MD January 16, 2017 12:41 pm
== END 2017-01-16 12:02 | disposition home or self-care (01) ==
LOC: CARD 11:01
PROVIDERS: ATTEND Pain Medicine Pain Medicine
DX: M51.16 Intervertebral disc disorders with radiculopathy, lumbar region (principal); Z79.899 Other long term (current) drug therapy; M79.1 Myalgia
CPT/HCPCS: 62323

== ENCOUNTER 2017-04-29 19:43 | Inpatient (IN) | payer MEDICARE, OTHER, MEDICAID ==
[~2017-04-29] VITALS: Ht 157.5 cm; Wt 114.8 kg
[2017-04-29] MEDS ORDERED: DOPamine DRIP 250 ML IV ONE (19:54)
[2017-04-29] MEDS ORDERED: NS IV 1000 ML 1,000 ML IV ONE (20:00)
[2017-04-29] MEDS ORDERED: LACTATED RINGERS 1,000 ML IV ONE (20:00)
[2017-04-29] MEDS ORDERED: DOPamine DRIP 250 ML IV SCH (20:00)
[2017-04-29] MEDS ORDERED: ONDANSETRON 4 MG/2 ML (SDV) Z0FRAN ONE (20:04)
[2017-04-29 20:09] LABS: BASOPHILS # (AUTO) 0.1 10^3/uL (0.0-0.1); BASOPHILS % (AUTO) 2 % (0-10); EOSINOPHILS # (AUTO) 0.2 10^3/uL (0.0-0.3); EOSINOPHILS % (AUTO) 4 % (0-10); LYMPHOCYTES # (AUTO) 1.7 X 10^3 (1.0-4.0); LYMPHOCYTES % (AUTO) 32 % (12-44); MEAN CORPUSCULAR HEMOGLOBIN 32 PG (25-34); MEAN CORPUSCULAR HGB CONC 33 G/DL (32-36); MEAN CORPUSCULAR VOLUME 97 FL (80-99); MONOCYTES % (AUTO) 18 % (0-12); NEUTROPHILS # (AUTO) 2.4 X 10^3 (1.8-7.8); NEUTROPHILS % (AUTO) 45 % (42-75); PLATELET COUNT 220 10^3/uL (130-400); RED BLOOD COUNT 3.88 10^6/uL (4.35-5.85); RED CELL DISTRIBUTION WIDTH 12.5 % (10.0-14.5); WHITE BLOOD COUNT 5.4 10^3/uL (4.3-11.0)
[2017-04-29] MEDS ORDERED: ONDANSETRON 4 MG/2 ML (SDV) Z0FRAN IVP ONE ×2 (20:15→22:30)
[2017-04-29 20:20] LABS: PROTHROMBIN TIME PATIENT 13.7 SEC (12.2-14.7)
[2017-04-29 20:30] LABS: ALBUMIN 3.5 GM/DL (3.2-4.5); BILIRUBIN,TOTAL 0.5 MG/DL (0.1-1.0); CALCIUM 8.3 MG/DL (8.5-10.1); CREATININE SERUM 1.22 MG/DL (0.60-1.30); MAGNESIUM 2.1 MG/DL (1.8-2.4); POTASSIUM 4.1 MMOL/L (3.6-5.0); TOTAL PROTEIN 6.6 GM/DL (6.4-8.2)
[2017-04-29 20:37] LABS: BAND NEUTROPHILS 0 %; BASOPHILS % (MANUAL) 1 %; EOSINOPHILS % (MANUAL) 4 %; LYMPHOCYTES % (MANUAL) 27 %; NEUTROPHILS % (MANUAL) 53 %
[2017-04-29] MEDS ORDERED: fentaNYL INJECTION 100 MCG/2 ML AMP ONE (20:37)
[2017-04-29] MEDS ORDERED: fentaNYL INJECTION 100 MCG/2 ML AMP IVP STA ×2 (20:42→21:14)
--- NOTE | 2017-04-29 20:50 | Diagnostic Imaging Report ---
INDICATION: Hypertensive and bradycardia Semiupright portable view of the chest is obtained. Comparison is made to study of 12/25/2016. FINDINGS: Heart size and pulmonary vascularity are within normal limits, and the lungs are clear, bilaterally. IMPRESSION: Unremarkable chest. Dictated by: Dictated on workstation # [id number]
[2017-04-29] MEDS ORDERED: morphine INJ 10 MG/ML 1ML (SYR OR VIAL) IVP STA ×3 (21:21→22:21)
[2017-04-29] MEDS ORDERED: HEParin 1000 UNIT/ML (10ML VIAL) FOR BOLUS IV SCH (21:45)
[2017-04-29] MEDS ORDERED: ASPIRIN 81 MG CHEW (CHILDREN'S ASA) PO ONE (21:45)
[2017-04-29] MEDS ORDERED: NITROGLYCERIN DRIP 25 MG/D5W 250 ML IV SCH (21:45)
[2017-04-29] MEDS ORDERED: CLOPIDOGREL 300 MG (PLAVIX) TABLET PO ONE (21:45)
[2017-04-29] MEDS ORDERED: PANTOPRAZOLE 40 MG/10 ML (PROTONIX) VIAL IV ONE (22:30)
[2017-04-29] MEDS ORDERED: SCOPOLAMINE 1.5 MG (TRANSDERM-SCOP) PATCH TD ONE (22:45)
[2017-04-29 23:00] VITALS: BP 99/58
[2017-04-29] MEDS ORDERED: morphine INJ 4 MG/ML 1 ML (VIAL/SYRINGE) IV PRN (23:15)
[2017-04-29] MEDS ORDERED: 1/2 NS IV SOLUTION 1,000 ML IV SCH (23:15)
[2017-04-29] MEDS ORDERED: NITROGLYCERIN SUBLINGUAL 0.4 MG TAB (NITROSTAT) SL PRN (23:15)
[2017-04-29] MEDS: D5 1/2 NS 1000 ML IV SOLUTION 1,000 ML IV SCH (23:29)
[2017-04-30] VITALS (24 sets, daily range): BP systolic 94–136; BP diastolic 44–82
[2017-04-30] MEDS: DOPamine DRIP 400 MG/250 ML D5W (PRE-MIX) IV SCH ×4 (01:03→22:01)
[2017-04-30] MEDS: NITROGLYCERIN DRIP 25 MG/250 ML D5W (PRE-MIX) IV SCH ×2 (02:48→22:46)
--- NOTE | 2017-04-30 02:49 | ED General ---
General Chief Complaint: Cardiac/General Problems Stated Complaint: CHEST PAIN WITH ACUTE ISCHEMIC EKG CHANGES Nursing Triage Note: Pt. presented via EMS secondary to hypotension and difficulty staying awake. Pt. was hypotensive and bradycardiac upon EMS arrival. Nursing Sepsis Screen: No Definite Risk Source of Information: Patient Exam Limitations: No Limitations History of Present Illness Time Seen by Provider: 19:50 Initial Comments PT ARRIVES VIA EMS FROM HOME PT STATES HE BECAME VERY WEAK AND TIRED--STATES HE HASN'T FELT WELL ALL DAY WITH GENERALIZED WEAKNESS AND FATIGUE, BUT 30 MINUTES AGO, HE HAD JUST TAKEN HIS EVENING MEDICATIONS ( INCLUDING LYRICA 100 MG, HYDROCODONE 7.5 MG AND ATENOLOL, AMONG OTHERS ) AND SHORTLY AFTER THAT HE BEGAN TO FEEL MUCH WORSE-- THESE ARE ALL NORMAL/REGULAR MEDICATIONS/ REGULAR DOSES AND DID NOT TAKE MORE THAN PRESCRIBED NO SYNCOPE--JUST GENERALIZED WEAKNESS AND TOO WEAK TO STAND PT DENIES CHEST PAIN NO SHORTNESS OF BREATH + NAUSEA, NO VOMITING NO HEADACHE NO VISION CHANGES NO PARESTHESIAS OR MOTOR DEFICITS HAS NOT HAD MUCH INTAKE TODAY, STATES HE HAS BEEN DRINKING WATER, AND HAS VOIDED 3-4 TIMES TODAY NO PROBLEMS URINATING NO ABDOMINAL PAIN PT HAS CHRONIC BACK PAIN AND BILATERAL HIP PAIN AND HAD A TRIAL/TEMPORARY NERVE/ SPINAL STIMULATOR REMOVED [address] 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 BALDWIN GRAINING MACHINE OPERATOR: DR. SPARROW Allergies and Home Medications Allergies Coded Allergies: Sulfa (Sulfonamide Antibiotics) (Verified Allergy, Unknown, 08/20/15) Home Medications Acetaminophen 500 Mg Tablet, 1,000 MG PO Q6H PRN for PAIN-MILD, (Reported) TAKES 2 (500 MG) TABLETS Albuterol Sulfate 18 Gm Hfa.aer.ad, 2 PUFF INH Q4H PRN for SHORTNESS OF BREATH, (Reported) Aspirin 81 Mg Tablet., 81 MG PO DAILY, (Reported) Atenolol 25 Mg Tablet, 25 MG PO HS for 30 Days, #30 Prescribed by: KENYETTA BALDWIN on 12/26/16 0908 Atorvastatin Calcium 40 Mg Tablet, 40 MG PO DAILY, (Reported) Cyclobenzaprine HCl 10 Mg Tablet, 10 MG PO TID PRN for MUSCLE SPASMS, (Reported) Dexlansoprazole 60 Mg Cap.mp, 60 MG PO DAILY, (Reported) Docusate Sodium 100 Mg Capsule, 100 MG PO HS, (Reported) Duloxetine HCl 60 Mg Capsule.dr, 60 MG PO BID, (Reported) Ipratropium [place] 15 Ml Naspr, 2 SPRAYS NS DAILY PRN for ALLERGIES, (Reported) Losartan Potassium 100 Mg Tablet, 50 MG PO DAILY, #30 Take 1/2 tab of 100mg dose in AM Prescribed by: KENYETTA BALDWIN on 12/26/16 0908 [place]-3 Fatty Acids/Fish Oil 1 Each Capsule, 1,200 MG PO DAILY, (Reported) Pregabalin 100 Mg Capsule, 100 MG PO BID, (Reported) Constitutional: see HPI, No chills, No diaphoresis, No dizziness, No fever, malaise, weakness EENTM: no symptoms reported Respiratory: no symptoms reported, No cough, No dyspnea on exertion, No short of breath, No wheezing Cardiovascular: no symptoms reported, No chest pain, No edema, Hx of Intervention, No palpitations, No syncope, vascular heart diseas, other (S/P STENTS IN LEGS, HEART AND CAROTIDS) Gastrointestinal: see HPI, No abdominal pain, No diarrhea, loss of appetite, nausea, No vomiting Genitourinary: no symptoms reported Musculoskeletal: see HPI, back pain, other (BILATERAL HIP PAIN ) Skin: no symptoms reported Psychiatric/Neurological: No Symptoms Reported, Denies Headache, Denies Numbness, Denies Paresthesia, Denies Seizure, Denies Tingling, Denies Tremors, Denies Weakness Hematologic/Lymphatic: No Symptoms Reported Immunological/Allergic: no symptoms reported Past Ygqbcbo-Cjevrd-Bozonu Hx Patient Social History Alcohol Use: Denies Use Recreational Drug Use: No Smoking Status: Former Smoker Type Used: Cigarettes Former Smoker, Quit: Aug 31, 2012 Recent Foreign Travel: No Contact w/Someone Who Travel: No Recent Infectious Disease Expo: No Recent Hopitalizations: No Physical Abuse: No Sexual Abuse: No Immunizations Up To Date Tetanus Booster (TDap): More than 5yrs PED Vaccines UTD: No Date of Pneumonia Vaccine: May 31, 2014 Date of Influenza Vaccine: May 31, 2015 Seasonal Allergies Seasonal Allergies: Yes Surgeries History of Surgeries: Yes (back, prostate, colonoscopy, CARDIAC CATH/STENTS, STENTS IN CAROTID ARTERY, STENTS IN LEGS; TEMPORARY/TRIAL NERVE/SPINAL STIMULATOR) Surgeries: Cardiac, Coronary Stent, Eye Surgery, Orthopedic, Vascular Surgery Respiratory History of Respiratory Disorde: Yes (COPD) Respiratory Disorders: Pneumonia, COPD Currently Using CPAP: No Currently Using BIPAP: No Cardiovascular History of Cardiac Disorders: Yes (STENTS IN HEART, CAROTID ARTERY, LEGS) Cardiac Disorders: Coronary Artery Disease, High Cholesterol, Hypertension, Peripheral Vascular Neurological History of Neurological Disord: No Reproductive System Hx Reproductive Disorders: No Sexually Transmitted Disease: No HIV/AIDS: No Genitourinary History of Genitourinary Disor: Yes Genitourinary Disorders: Prostate Problems Gastrointestinal History of Gastrointestinal Di: Yes (ABDOMINAL PAIN AT TIMES) Gastrointestinal Disorders: Gastroesophageal Reflux, Diverticulosis, Hemorrhoids Musculoskeletal History of Musculoskeletal Dis: Yes (ARTHRITIS "ALL OVER") Musculoskeletal Disorders: Degenerate Disk Disease, Arthritis, Chronic Back Pain Endocrine History of Endocrine Disorders: No HEENT History of HEENT Disorders: No Loss of Vision: Denies Hearing Impairment: Denies Cancer History of Cancer: No Psychosocial History of Psychiatric Problem: Yes Behavioral Health Disorders: Depression Suicide Risk Score: 0 Integumentary History of Skin or Integumenta: No Blood Transfusions History of Blood Disorders: No Adverse Reaction to a Blood Tr: No Family Medical History Significant Family History: No Pertinent Family Hx Family Medial History: Patient reports no known family medical history. Physical Exam Vital Signs Vital Sign - Last 12Hours 04/29/17 04/29/17 04/29/17 20:09 20:16 23:00 Temp 96.8 Pulse 54 Resp 14 B/P (MAP) 71/24 Pulse Ox 98 O2 Delivery Nasal Cannula O2 Flow Rate 2.00 FiO2 100 Capillary Refill : Greater Than 3 Seconds General Appearance: Other (LETHARGIC, KEEPS EYES CLOSED, BUT DOES OPEN THEM ON COMMAND AND ANSWERS ALL QUESTIONS APPROPRIATELY. ) HEENT: PERRL/EOMI, Other (ORAL MUCOSA DRY) Neck: Non Tender Respiratory: Normal Breath Sounds, No Accessory Muscle Use, No Respiratory Distress Cardiovascular: Regular Rate, Rhythm, No Murmur Gastrointestinal: Normal Bowel Sounds, No Organomegaly, No Pulsatile Mass, Non Tender, Soft Back: No CVA Tenderness, Other (TENDERNESS TO GENERAL LUMBAR AREA. 2 PUNCTURE SITES TO UPPER/MID LUMBAR AREA ( ONE ON EACH SIDE OF SPINE) WITH BANDAIDS THAT AREA CLEAN, DRY AND INTACT. NO EVIDENCE OF INFECTION OR BLEEDING OR DRAINAGE OF CSF. ) Extremity: Normal Range of Motion, Non Tender, No Calf Tenderness, Pedal Edema (TRACE BILATERALLY) Neurologic/Psychiatric: Alert (BUT LETHARGIC), Oriented x3, No Motor/Sensory Deficits, sew on operator II-XII Norm as Tested Skin: Warm/Dry, Pallor Focused Exam Evaluation Lactate Level Laboratory Tests 04/29/17 20:30: Lactic Acid Level 1.38 Progress/Results/Core Measures Results/Orders Lab Results Laboratory Tests Test 04/29/17 20:00 04/29/17 20:30 04/29/17 22:40 Range/Units White Blood Count 5.4 4.3-11.0 10^3/uL Red Blood Count 3.88 L 4.35-5.85 10^6/uL Hemoglobin 12.3 L 13.3-17.7 G/DL Hematocrit 38 L 40-54 % Mean Corpuscular Volume 97 80-99 FL Mean Corpuscular Hemoglobin 32 25-34 PG Mean Corpuscular Hemoglobin Concent 33 32-36 G/DL Red Cell Distribution Width 12.5 10.0-14.5 % Platelet Count 220 130-400 10^3/uL Mean Platelet Volume 10.0 7.4-10.4 FL Neutrophils (%) (Auto) 45 42-75 % Lymphocytes (%) (Auto) 32 12-44 % Monocytes (%) (Auto) 18 H 0-12 % Eosinophils (%) (Auto) 4 0-10 % Basophils (%) (Auto) 2 0-10 % Neutrophils # (Auto) 2.4 1.8-7.8 X 10^3 Lymphocytes # (Auto) 1.7 1.0-4.0 X 10^3 Monocytes # (Auto) 1.0 0.0-1.0 X 10^3 Eosinophils # (Auto) 0.2 0.0-0.3 10^3/uL Basophils # (Auto) 0.1 0.0-0.1 10^3/uL Neutrophils % (Manual) 53 % Lymphocytes % (Manual) 27 % Monocytes % (Manual) 15 % Eosinophils % (Manual) 4 % Basophils % (Manual) 1 % Band Neutrophils 0 % Blood Morphology Comment NORMAL Prothrombin Time 13.7 12.2-14.7 SEC INR Comment 1.0 0.8-1.4 Activated Partial Thromboplast Time 30 24-35 SEC Sodium Level 138 135-145 MMOL/L Potassium Level 4.1 3.6-5.0 MMOL/L Chloride Level 103 98-107 MMOL/L Carbon Dioxide Level 24 21-32 MMOL/L Anion Gap 11 5-14 MMOL/L Blood Urea Nitrogen 27 H 7-18 MG/DL Creatinine 1.22 0.60-1.30 MG/DL Estimat Glomerular Filtration Rate 58 BUN/Creatinine Ratio 22 Glucose Level 98 70-105 MG/DL Calcium Level 8.3 L 8.5-10.1 MG/DL Magnesium Level 2.1 1.8-2.4 MG/DL Total Bilirubin 0.5 0.1-1.0 MG/DL Aspartate Amino Transf (AST/SGOT) 21 5-34 U/L Alanine Aminotransferase (ALT/SGPT) 17 0-55 U/L Alkaline Phosphatase 63 40-136 U/L Troponin I < 0.30 < 0.30 <0.30 NG/ML B-Type Natriuretic Peptide 73.7 <100.0 PG/ML Total Protein 6.6 6.4-8.2 GM/DL Albumin 3.5 3.2-4.5 GM/DL TSH [place] Testing 4.78 0.35-4.94 UIU/ML Lactic Acid Level 1.38 0.50-2.00 MMOL/L My Orders Orders - MELISSA LYNCH DO Saline Lock/Iv-Start (04/29/17 20:00) Ekg Tracing (04/29/17 20:00) O2 (04/29/17 20:00) Monitor-Rhythm Ecg Trace Only (04/29/17 20:00) Cbc With Automated Diff (04/29/17 20:00) Comprehensive Metabolic Panel (04/29/17 20:00) Lactic Acid Analyzer (04/29/17 20:00) Magnesium (04/29/17 20:00) Protime With Inr (04/29/17 20:00) Partial Thromboplastin Time (04/29/17 20:00) Ua Culture If Indicated (04/29/17 20:00) Blood Culture (04/29/17 20:00) Saline Lock/Iv-Start (04/29/17 20:00) Ns Iv 1000 Ml (Sodium Chloride 0.9%) (04/29/17 20:00) Lactated Ringers (Lr 1000 Ml Iv Solution (04/29/17 20:00) Dopamine Drip (Dopamine Drip) (04/29/17 20:00) Dopamine Drip (Dopamine Drip) (04/29/17 19:54) Ondansetron Injection (Zofran Injectio (04/29/17 20:15) Ondansetron Injection (Zofran Injectio (04/29/17 20:04) Chest 1 View, Ap/Pa Only (04/29/17 20:11) Manual Differential (04/29/17 20:00) Troponin I (04/29/17 20:13) BNP (04/29/17 20:42) Fentanyl Injection (Sublimaze Injection (04/29/17 20:42) Fentanyl Injection (Sublimaze Injection (04/29/17 20:37) Fentanyl Injection (Sublimaze Injection (04/29/17 21:14) Morphine Injection (Morphine Injection (04/29/17 21:21) Aspirin Chewable Tablet (Baby Aspirin Ch (04/29/17 21:45) Clopidogrel Tablet (Plavix Tablet) (04/29/17 21:45) Heparin (Bolus Per Protocol) (Heparin (B (04/29/17 21:45) Nitroglycerin Drip 25 Mg/D5w (Nitroglyce (04/29/17 21:45) Ekg Tracing (04/29/17 21:57) Ekg Tracing (04/29/17 21:57) Morphine Injection (Morphine Injection (04/29/17 22:08) Cortisol Pm (04/29/17 22:15) Thyroid Analyzer (04/29/17 22:15) Ondansetron Injection (Zofran Injectio (04/29/17 22:30) Morphine Injection (Morphine Injection (04/29/17 22:21) Pantoprazole Injection (Protonix Injecti (04/29/17 22:30) Ekg Tracing (04/29/17 22:26) Troponin I (04/29/17 22:27) Scopolamine Patch (Transderm-Scop Patch) (04/29/17 22:45) Medications Given in ED Current Medications Medications Dose Ordered Sig/Zohreh Route Start Time Stop Time Status Last Admin Dose Admin Aspirin 324 mg ONCE ONCE PO 04/29/17 21:45 04/29/17 21:46 DC 04/29/17 21:46 324 MG Clopidogrel Bisulfate 300 mg ONCE ONCE PO 04/29/17 21:45 04/29/17 21:46 DC 04/29/17 21:45 300 MG Lactated Ringer's 1,000 ml @ 0 mls/hr Q0M ONCE IV 04/29/17 20:00 04/29/17 20:02 DC 04/29/17 20:15 0 MLS/HR Ondansetron HCl 8 mg ONCE ONCE IVP 04/29/17 20:15 04/29/17 20:16 DC 04/29/17 20:15 8 MG Sodium Chloride 1,000 ml @ 0 mls/hr Q0M ONCE IV 04/29/17 20:00 04/29/17 20:02 DC 04/29/17 20:15 0 MLS/HR Vital Signs/I&O Vital Sign - Last 12Hours 04/29/17 04/29/17 04/29/17 04/29/17 20:09 20:14 20:16 21:48 Pulse 54 Resp 14 B/P (MAP) 71/24 64/26 96/43 Pulse Ox 98 98 98 O2 Delivery Nasal Cannula O2 Flow Rate 2.00 FiO2 100 04/29/17 04/29/17 04/29/17 04/30/17 22:50 23:00 23:15 00:00 Temp 96.8 Pulse 84 92 Resp 16 B/P (MAP) 99/58 Pulse Ox 98 97 97 O2 Delivery Room Air Nasal Cannula Nasal Cannula Nasal Cannula O2 Flow Rate 4.00 4.00 3.00 04/30/17 04/30/17 04/30/17 00:00 01:00 01:03 Temp 96.8 Pulse 89 79 89 Resp 16 B/P (MAP) 108/63 108/63 Pulse Ox 98 98 O2 Delivery Nasal Cannula Nasal Cannula O2 Flow Rate 4.00 4.00 Blood Pressure Mean: 78 Progress Note : Progress Note BP SHOWED NO IMPROVEMENT WITH FLUID BOLUS, AND CONTINUED TO DROP INTO 60'S/30'S SO DOPAMINE DRIP INITIATED AND BP UP TO MID 80'S TO MID 90'S 2030--PT BEGAN TO C/O MID CHEST PAIN RATES 7-8/10 --REPEAT EKG DONE WHICH SHOWS DIFFUSE ACUTE ISCHEMIC CHANGES. GIVEN FENTANYL WITH PAIN DOWN TO A 3/10 PT CONTINUED TO HAVE WAXING AND WANING OF CHEST PAIN, WITHOUT COMPLETE RELIEF OF PAIN --GIVEN ADDITIONAL FENTANYL AND THEN MORPHINE, WITH IMPROVEMENT IN PAIN OVERALL. 2224--PT NOW WITH INCREASED CHEST PAIN AGAIN--REPEAT EKG DOES NOT SHOW ANY WORSENING, AND SHOWS DECREASE IN ST SEGMENT DEPRESSION AND T-WAVE INVERSION. ORDERS FOR ADDITION OF NITROGLYCERINE DRIP WITH INCREASE IN DOPAMINE DOSE PER DR. GLEZ PAIN BACK DOWN TO 3/10 WITH THE ABOVE AND ADDITIONAL MORPHINE. ECG Initial ECG Impression Time: 19:50 Initial ECG Rate: 53 Initial ECG Rhythm: Normal Sinus Initial ECG Impression: Normal Initial ECG Comparisson: No Previous ECG Available EKG : EKG Time: 20:37 Rate: 87 Rhythm: Normal Sinus (WITH ACUTE SIGNIFICANT ST SEGMENT DEPRESSION AND T- WAVE INVERSION IN INFERIOR AND ANTERIOR-LATERAL LEADS. CHANGED FROM PREVIOUS) Comment EKG#3 AT 2111--NSR, RATE 87. STILL WITH DIFFUSE ST SEGMENT DEPRESSION AND T- WAVE INVERSION, BUT NOT QUITE PRONOUNCED THE ONE DONE AT 2036 EKG#4 AT 2225--NSR, RATE 94. ST SEGMENT DEPRESSION AND T-WAVE INVERSION LESS PRONOUNCED THAN THE ONE DONE AT 2111 Diagnostic Imaging Comments CXR--NO ACUTE PROCESS, PER RADIOLOGIST REPORT @ 2224 Reviewed: Reviewed by Me Critical Care Note Critical Care Total Time (minutes) 2 HOURS Departure Communication (Admissions) Family Conversation DISCUSSED THE SERIOUSNESS / CRITICAL NATURE AND COMPLEXITIES OF PT'S CONDITION WITH PT AND SON. THEY BOTH APPEAR TO UNDERSTAND BOTH PT AND SON STATE THAT PT IS TO BE A DNR, AND HAVE SIGNED PAPERS HERE IN THE PAST FOR THIS. Progress Notes 2044--SPOKE WITH DR. GLEZ, GRAINING MACHINE OPERATOR MICROFILM CAMERA OPERATOR. HE CANNOT ADVISE ON WHETHER TO GIVE ANY ANTICOAGULATION OR ANY MEDICATIONS AT THIS TIME, ( DUE TO RECENT SURGERY, PERSISTENT HYPOTENSION, ETC) HE ADVISES TO CONSULT DR. BURGER, AND ORTHOPEDIC SURGEON 2050--SPOKE WITH DR. BURGER, DIGITAL MEDIA STRATEGIST/CRITICAL CARE PHYSICIAN. HE WILL SEE PT IN CONSULT, HE ADVISES ECHOCARDIOGRAM IN AM, ADDITIONAL LAB, HE CANNOT ADVISE ON WHETHER TO GIVE PT ANTICOAGULATION OR ANY MEDICATIONS AT THIS TIME. 2058--SPOKE WITH DR. FLOWER, ORTHOPEDIC SURGEON MICROFILM CAMERA OPERATOR FOR ORTHO-4 STATES. HE DEFERS TO CARDIOLOGY FOR DECISION ON ANTICOAGULATION. 2104--SPOKE WITH DR. BALDWIN, PT'S PCP. SHE ACCEPTS PT FOR ADMIT AND WILL CONSULT OTHERS. SHE DEFERS TO CARDIOLOGY FOR DECISION ON ANTICOAGULATION 2116--SPOKE WITH DR. GLEZ AGAIN. I WILL ATTEMPT TO CONTACT SPINE SURGEON AND WILL CALL HIM BACK. 2122--SPOKE WITH DR. FLOWER AGAIN AND HE WILL CONTACT DR. BRADY AND HAVE HIM CALL ME 2129--SPOKE WITH DR. BRADY. PT IS NEUROLOGICALLY INTACT, WITH NO MRI CAPABILITIES TONIGHT, AND HAS UNSTABLE VITAL SIGNS, WITH EVIDENCE OF ACUTE CARDIAC EVENT/ISCHEMIA HE ADVISES TO PROCEED WITH ANTICOAGULATION AND TREAT THE ACUTE CARDIAC PROBLEM. 2139--SPOKE WITH DR. GLEZ AGAIN AND HE ADVISES TO GIVE FULL ASPIRIN, PLAVIX 300 MG AND HEPARIN BOLUS OF 5000 UNITS. PHOTOS OF EKG'S TAKEN AND SENT IN TEXT TO HIM BY GAS STATION MANAGER AT DR. GLEZ'S REQUEST. 2225--SPOKE WITH DR. GLEZ AGAIN AND HE ADVISES NITROGLYCERINE DRIP WITH INCREASED DOSE OF DOPAMINE, PT IS STILL HAVING CHEST PAIN. Impression Impression: Primary Impression: CHEST PAIN WITH ACUTE ISCHEMIC CHANGES ON EKG Additional Impressions: Severe hypotension RECENT REMOVAL OF TRIAL/TEMPORARY SPINAL STIMULATOR CHRONIC BACK PAIN DIFFUSE ASVD Dehydration Disposition: ADMITTED INPATIENT Condition: Critical Admissions Decision to Admit Reason: Admit from ER (General) Decision to Admit/Date: Apr 29, 2017 Time/Decision to Admit Time: 21:40 Departure-Patient Inst. Referrals: KENYETAT BALDWIN DO (PCP) Primary Care Physician MELISSA LYNCH DO Apr 30, 2017 02:49
[2017-04-30 05:02] LABS: BASOPHILS # (AUTO) 0.1 10^3/uL (0.0-0.1); BASOPHILS % (AUTO) 1 % (0-10); EOSINOPHILS # (AUTO) 0.1 10^3/uL (0.0-0.3); EOSINOPHILS % (AUTO) 1 % (0-10); LYMPHOCYTES # (AUTO) 1.6 X 10^3 (1.0-4.0); LYMPHOCYTES % (AUTO) 17 % (12-44); MEAN CORPUSCULAR HEMOGLOBIN 31 PG (25-34); MEAN CORPUSCULAR HGB CONC 33 G/DL (32-36); MEAN CORPUSCULAR VOLUME 96 FL (80-99); MEAN PLATELET VOLUME 9.8 FL (7.4-10.4); MONOCYTES # (AUTO) 2.2 X 10^3 (0.0-1.0); MONOCYTES % (AUTO) 24 % (0-12); NEUTROPHILS # (AUTO) 5.2 X 10^3 (1.8-7.8); NEUTROPHILS % (AUTO) 57 % (42-75); PLATELET COUNT 212 10^3/uL (130-400); RED BLOOD COUNT 3.67 10^6/uL (4.35-5.85); RED CELL DISTRIBUTION WIDTH 12.1 % (10.0-14.5); WHITE BLOOD COUNT 9.2 10^3/uL (4.3-11.0)
[2017-04-30] MEDS ORDERED: LIDOCAINE UROJET 2% GEL 10 ML PKG ONE (05:21)
[2017-04-30 05:27] LABS: ALANINE AMINOTRANSFERASE 15 U/L (0-55); ALBUMIN 3.3 GM/DL (3.2-4.5); ANION GAP 8 MMOL/L (5-14); ASPARTATE AMINO TRANSFERASE 17 U/L (5-34); BILIRUBIN,TOTAL 0.5 MG/DL (0.1-1.0); BLOOD UREA NITROGEN 27 MG/DL (7-18); BUN/CREATININE RATIO 20; CALCIUM 7.7 MG/DL (8.5-10.1); CARBON DIOXIDE 22 MMOL/L (21-32); CHLORIDE 104 MMOL/L (98-107); CREATININE SERUM 1.37 MG/DL (0.60-1.30); GFR ESTIMATED 51; GLUCOSE 194 MG/DL (70-105); MAGNESIUM 1.7 MG/DL (1.8-2.4); POTASSIUM 4.2 MMOL/L (3.6-5.0); SODIUM 134 MMOL/L (135-145); TOTAL PROTEIN 5.9 GM/DL (6.4-8.2)
[2017-04-30 05:37] LABS: MYOGLOBIN SERUM 161.4 NG/ML (10.0-92.0)
[2017-04-30] MEDS: D5 1/2 NS 1000 ML IV SOLUTION 1,000 ML IV SCH (06:02)
[2017-04-30 06:08] LABS: PH,URINE 6 (5-9)
[2017-04-30 06:09] LABS: BILIRUBIN,URINE NEGATIVE (NEGATIVE); KETONES,URINE NEGATIVE (NEGATIVE); LEUKOCYTE ESTERASE ,URINE NEGATIVE (NEGATIVE); NITRITE,URINE NEGATIVE (NEGATIVE); PROTEIN,URINE NEGATIVE (NEGATIVE); UROBILINOGEN,URINE NORMAL (NORMAL)
[2017-04-30 06:10] LABS: HYALINE CASTS, URINE RARE /LPF; SQUAMOUS EPITHELIAL CELL,UR RARE /HPF
[2017-04-30] MEDS ORDERED: NS IV 1000 ML 1,000 ML ONE ×2 (06:33→12:47)
--- NOTE | 2017-04-30 07:01 | Pulmonary Consultation ---
History of Present Illness History of Present Illness Date of Consultation 04/30/17 06:54 Time Seen by Provider: 06:54 Date of Admission History of Present Illness 76yo with hx of chronic back pain and recent nerve stimulater removal 2 days prior to admission presented to ED secondary to generalized weakness, and fatigue. Pt does take lyrica, hydrocodone at home. PT received 10mg of morphine and fentanyl in the ED. Upon ED admission patient was too weak to stand. During ED admission pt started having CP and EKG changes per ED doctor. Pt has also been complaining of severe midepigastric 10/10 abdominal pain and nausea. PT is currently very lethargic and will not stay awake to questions. unable to obtain ROS. I am consulted for ICU management. Pt was also lethargic in ED however did receive 10mg of morphine in ED. Allergies and Home Medications Allergies Coded Allergies: Sulfa (Sulfonamide Antibiotics) (Verified Allergy, Unknown, 08/20/15) Home Medications Acetaminophen 500 Mg Tablet, 1,000 MG PO Q6H PRN for PAIN-MILD, (Reported) TAKES 2 (500 MG) TABLETS Albuterol Sulfate 18 Gm Hfa.aer.ad, 2 PUFF INH Q4H PRN for SHORTNESS OF BREATH, (Reported) Aspirin 81 Mg Tablet., 81 MG PO DAILY, (Reported) Atenolol 25 Mg Tablet, 25 MG PO HS for 30 Days, #30 Prescribed by: KENYETTA BALDWIN on 12/26/16 0908 Atorvastatin Calcium 40 Mg Tablet, 40 MG PO DAILY, (Reported) Cyclobenzaprine HCl 10 Mg Tablet, 10 MG PO TID PRN for MUSCLE SPASMS, (Reported) Dexlansoprazole 60 Mg Cap., 60 MG PO DAILY, (Reported) Docusate Sodium 100 Mg Capsule, 100 MG PO HS, (Reported) Duloxetine HCl 60 Mg Capsule., 60 MG PO BID, (Reported) Ipratropium [place] 15 Ml Naspr, 2 SPRAYS NS DAILY PRN for ALLERGIES, (Reported) Losartan Potassium 100 Mg Tablet, 50 MG PO DAILY, #30 Take 1/2 tab of 100mg dose in AM Prescribed by: KENYETTA BALDWIN on 12/26/16 0908 [place]-3 Fatty Acids/Fish Oil 1 Each Capsule, 1,200 MG PO DAILY, (Reported) Pregabalin 100 Mg Capsule, 100 MG PO BID, (Reported) Past Ojduojn-Qsgouq-Oxsniz Hx Patient Social History Alcohol Use: Denies Use Recreational Drug Use: No Smoking Status: Former Smoker Type Used: Cigarettes Former Smoker, Quit: Aug 31, 2012 Recent Foreign Travel: No Contact w/Someone Who Travel: No Recent Infectious Disease Expo: No Recent Hopitalizations: No Physical Abuse: No Sexual Abuse: No Immunizations Up To Date Tetanus Booster (TDap): More than 5yrs PED Vaccines UTD: No Date of Pneumonia Vaccine: May 31, 2014 Date of Influenza Vaccine: May 31, 2015 Seasonal Allergies Seasonal Allergies: Yes Surgeries History of Surgeries: Yes (back, prostate, colonoscopy, CARDIAC CATH/STENTS, STENTS IN CAROTID ARTERY, STENTS IN LEGS; TEMPORARY/TRIAL NERVE/SPINAL STIMULATOR) Surgeries: Cardiac, Coronary Stent, Eye Surgery, Orthopedic, Vascular Surgery Respiratory History of Respiratory Disorde: Yes (COPD) Respiratory Disorders: Pneumonia, COPD Currently Using CPAP: No Currently Using BIPAP: No Cardiovascular History of Cardiac Disorders: Yes (STENTS IN HEART, CAROTID ARTERY, LEGS) Cardiac Disorders: Coronary Artery Disease, High Cholesterol, Hypertension, Peripheral Vascular Neurological History of Neurological Disord: No Reproductive System Hx Reproductive Disorders: No Sexually Transmitted Disease: No HIV/AIDS: No Genitourinary History of Genitourinary Disor: Yes Genitourinary Disorders: Prostate Problems Gastrointestinal History of Gastrointestinal Di: Yes (ABDOMINAL PAIN AT TIMES) Gastrointestinal Disorders: Gastroesophageal Reflux, Diverticulosis, Hemorrhoids Musculoskeletal History of Musculoskeletal Dis: Yes (ARTHRITIS "ALL OVER") Musculoskeletal Disorders: Degenerate Disk Disease, Arthritis, Chronic Back Pain Endocrine History of Endocrine Disorders: No HEENT History of HEENT Disorders: No Loss of Vision: Denies Hearing Impairment: Denies Cancer History of Cancer: No Psychosocial History of Psychiatric Problem: Yes Behavioral Health Disorders: Depression Suicide Risk Score: 0 Integumentary History of Skin or Integumenta: No Blood Transfusions History of Blood Disorders: No Adverse Reaction to a Blood Tr: No Family Medical History Significant Family History: No Pertinent Family Hx Family Medial History: Patient reports no known family medical history. Review of Systems Time Seen by Provider: 07:20 Exam Exam Vital Signs Date Time Temp Pulse Resp B/P (MAP) Pulse Ox O2 Delivery O2 Flow Rate FiO2 04/30/17 06:00 65 27 96/45 98 Nasal Cannula 3.00 04/30/17 05:00 67 14 100/57 99 Nasal Cannula 3.00 04/30/17 04:00 72 14 94/73 100 Nasal Cannula 3.00 04/30/17 04:00 98.6 04/30/17 04:00 98 Nasal Cannula 3.00 04/30/17 03:00 77 114/74 100 Nasal Cannula 3.00 04/30/17 02:00 64 116/66 97 Nasal Cannula 3.00 04/30/17 01:03 96.8 89 16 108/63 98 Nasal Cannula 4.00 04/30/17 01:00 79 04/30/17 01:00 77 108/68 98 Nasal Cannula 3.00 04/30/17 00:40 97.6 Nasal Cannula 3.00 04/30/17 00:00 89 108/63 98 Nasal Cannula 4.00 04/30/17 00:00 97 Nasal Cannula 3.00 04/29/17 23:15 Nasal Cannula 4.00 04/29/17 23:00 96.8 92 99/58 97 Nasal Cannula 4.00 04/29/17 22:50 84 16 98 Room Air 04/29/17 21:48 96/43 04/29/17 20:16 98 Nasal Cannula 2.00 100 04/29/17 20:14 64/26 98 04/29/17 20:09 54 14 71/24 98 General Appearance: Other (LETHARGIC, KEEPS EYES CLOSED, BUT DOES OPEN THEM ON COMMAND AND ANSWERS ALL QUESTIONS APPROPRIATELY. ) HEENT: PERRL/EOMI, Other (ORAL MUCOSA DRY) Neck: Non Tender Respiratory: Normal Breath Sounds, No Accessory Muscle Use, No Respiratory Distress Cardiovascular: Regular Rate, Rhythm, No Murmur Capillary Refill: Greater Than 3 Seconds Extremity: Normal Range of Motion, Non Tender, No Calf Tenderness, Pedal Edema (TRACE BILATERALLY) Neurologic/Psychiatric: Alert (BUT LETHARGIC), Oriented x3, No Motor/Sensory Deficits, bilingual research interviewer II-XII Norm as Tested, Depressed Affect Skin: Warm/Dry, Pallor Results Lab Laboratory Tests 04/29/17 20:00 04/30/17 04:35 Assessment/Plan Assessment/Plan Hypotension probably secondary to dehydration -check thyroid studies, random cortisol -Echocardiogram this AM -antunez cultures pending -IVF - Change IVF to NS -Start solucortef 100mg IV Q8 as trial Dehydration with decreased UO -IVF Chronic back pain Recent removal of spinal stimulator -ortho consulted -MRI is pending -Pt received 10mg of morphine in ED plus fentanyl Lethargic probably secondary to pain meds in ED -check CT of head with and without -check ABG, and accu check -Hold pain meds until patient is more awake CP with EKG changes in ED -cardiology consulted -troponins pending -repeat EKG Abdominal pain -Pt was complaining of 10/10 abdominal pain last night however currently he is too lethargic to access MS -CT of abdomen with and without Morbid obesity 255 Clinical Quality Measures DVT/VTE Risk/Contraindication: Risk Factor Score Per Nursin RFS Level Per Nursing on Admit: 2=Moderate OTONIEL BURGER DO Apr 30, 2017 07:01
[2017-04-30] MEDS ORDERED: SODIUM PHOSPHATE INJ 30 MM in NS (IVPB) 250 ML IV NR (07:15)
[2017-04-30] MEDS ORDERED: NS IV 1000 ML 1,000 ML IV SCH (07:15)
[2017-04-30 07:38] LABS: ABG BASE EXCESS -5.3 MMOL/L (-2.5-2.5); ABG HCO3 21 MMOL/L (23-27); ABG OXYGEN SATURATION 98 % (94-100); ABG PCO2 50 MMHG (35-45); ABG PO2 98 MMHG (79-93); ABG TCO2 22.5 MMOL/L (21.0-31.0)
[2017-04-30 07:44] LABS: ABG PH 7.24 (7.37-7.43); ALLENS TEST YES-POS; PATIENT TEMP 96.8
[2017-04-30] MEDS: MAGNESIUM 1 GM/100 ML IVPB 100 ML IV SCH ×2 (07:56→10:00)
[2017-04-30] MEDS ORDERED: CATHETER FLUSH 10 ML SYR IV PRN (08:00)
[2017-04-30] MEDS ORDERED: NS 100 ML (IVPB) BAG IV ONE (08:00)
[2017-04-30] MEDS ORDERED: IOHEXOL 350 MG/ML 100 ML (OMNIPAQUE 350) VIAL IV ONE (08:00)
[2017-04-30] MEDS: ASPIRIN E.C. 325 MG (ECOTRIN) TABLET PO SCH (08:14)
--- NOTE | 2017-04-30 08:57 | Consultation-Cardiology ---
HPI-Cardiology Cardiology Consultation: Date of Consultation 04/30/17 Time Seen by Provider: 09:30 Date of Admission 04-29-17 Attending Physician Kenyetta Piper DO Admitting Physician Kenyetta Piper DO Consulting Physician Juanjo Evans MD HPI: Chief Complaint: Chest pain Mr. Nichols is a 76 year old male admitted to ICU from the ED. He is currently lethargic and on Bi-pap. His daughter is at the bedside. He opens his eyes to verbal stimuli. He denies any chest pain at this time. He states he does not recall the events of last evening. The daughter at the bedside does not live locally and is unaware of the events leading up to his admission. Information has been obtained from a chart review and speaking with the nurse. He had a back stimulator removed approx a week ago at [facility] [place] [facility]. He began to feel weak and unwell yesterday with increasing lethargy. According to the ED he c/o CP, mid-sternal in the ED. Review of Systems-Cardiology Review of Systems Constitutional: As described under HPI Respiratory: As described under HPI Cardiovascular: As described under HPI Other comments ROS to the extent that it could be obtained is as noted in HPI [id number]-Tpyifj Hx Patient Social History Alcohol Use: Denies Use Recreational Drug Use: No Smoking Status: Former Smoker Former smoker/When Quit: December 30, 2011 Type Used: Cigarettes Recent Foreign Travel: No Recent Infectious Disease Expo: No Physical Abuse Screen: No Sexual Abuse: No Immunizations Up To Date Tetanus Booster (TDap): More than 5yrs Date of Pneumonia Vaccine: May 31, 2014 Date of Influenza Vaccine: May 31, 2015 Past Medical History PMH As described under Assessment. Family Medical History Family History: Patient reports no known family medical history. Allergies and Home Medications Allergies Coded Allergies: Sulfa (Sulfonamide Antibiotics) (Verified Allergy, Unknown, 08/20/15) Home Medications Acetaminophen 500 Mg Tablet, 1,000 MG PO Q6H PRN for PAIN-MILD, (Reported) TAKES 2 (500 MG) TABLETS Albuterol Sulfate 18 Gm Hfa.aer.ad, 2 PUFF INH Q4H PRN for SHORTNESS OF BREATH, (Reported) Aspirin 81 Mg Tablet.dr, 81 MG PO DAILY, (Reported) Atenolol 25 Mg Tablet, 25 MG PO BID, (Reported) Atorvastatin Calcium 40 Mg Tablet, 40 MG PO DAILY, (Reported) Dexlansoprazole 60 Mg Cap.bp, 60 MG PO DAILY, (Reported) Docusate Sodium 100 Mg Capsule, 100 MG PO HS PRN for CONSTIPATION-1ST LINE, ( Reported) Duloxetine HCl 60 Mg Capsule.dr, 60 MG PO BID, (Reported) Hydrocodone/Acetaminophen 1 Each Tablet, 1 TAB PO Q6H PRN for PAIN-MODERATE, ( Reported) Ipratropium [place] 15 Ml Naspr, 2 SPRAYS NS DAILY PRN for ALLERGIES, (Reported) Losartan Potassium 100 Mg Tablet, 100 MG PO DAILY, (Reported) [place]-3 Fatty Acids/Fish Oil 1 Each Capsule, 1,200 MG PO DAILY, (Reported) Pregabalin 100 Mg Capsule, 100 MG PO BID, (Reported) Tizanidine HCl 4 Mg Tablet, 4 MG PO BID PRN for MUSCLE SPASMS, (Reported) Physical Exam-Cardiology Physical Exam Vital Signs/I&O Vital Sign - Last 12Hours 04/29/17 04/29/17 04/29/17 04/30/17 22:50 23:00 23:15 00:00 Temp 96.8 Pulse 84 92 Resp 16 B/P (MAP) 99/58 Pulse Ox 98 97 97 O2 Delivery Room Air Nasal Cannula Nasal Cannula Nasal Cannula O2 Flow Rate 4.00 4.00 3.00 04/30/17 04/30/17 04/30/17 04/30/17 00:00 00:40 01:00 01:00 Temp 97.6 Pulse 89 77 79 B/P (MAP) 108/63 108/68 Pulse Ox 98 98 O2 Delivery Nasal Cannula Nasal Cannula Nasal Cannula O2 Flow Rate 4.00 3.00 3.00 04/30/17 04/30/17 04/30/17 04/30/17 01:03 02:00 03:00 04:00 Temp 96.8 Pulse 89 64 77 Resp 16 B/P (MAP) 108/63 116/66 114/74 Pulse Ox 98 97 100 98 O2 Delivery Nasal Cannula Nasal Cannula Nasal Cannula Nasal Cannula O2 Flow Rate 4.00 3.00 3.00 3.00 04/30/17 04/30/17 04/30/17 04/30/17 04:00 04:00 05:00 06:00 Temp 98.6 Pulse 72 67 65 Resp 14 14 27 B/P (MAP) 94/73 100/57 96/45 Pulse Ox 100 99 98 O2 Delivery Nasal Cannula Nasal Cannula Nasal Cannula O2 Flow Rate 3.00 3.00 3.00 04/30/17 04/30/17 04/30/17 07:00 07:55 09:41 Temp 96.8 Pulse 67 67 95 Resp 13 16 B/P (MAP) 121/72 Pulse Ox 100 99 O2 Delivery Nasal Cannula O2 Flow Rate 2.00 21.00 Capillary Refill : Greater Than 3 Seconds Constitutional: other (Lethargic) HEENT: PERRL, No discharge, hearing is well preserved, oral hygience is good, No ulceration, No xanthelasmas are seen Neck: No carotid bruit, carotid pulses are 2 + bilaterally Respiratory: other (diminished bases bilat; fair air entry) Cardiovascular: regular rate-rhythm, No JVD, S1 and S2 Gastrointestinal: No tender, soft, audible bowel sounds Rectal: deferred Genital/Rectal: other (Urinary catheter to DD with yellow urine) Extremities: no lower extremity edema bilateral Neurologic/Psychiatric: other (lethargic, moves all extremities) Skin: No ulcerations Data Review Labs Laboratory Tests 04/29/17 20:00: White Blood Count 5.4, Red Blood Count 3.88L, Hemoglobin 12.3L, Hematocrit 38L, Mean Corpuscular Volume 97, Mean Corpuscular Hemoglobin 32, Mean Corpuscular Hemoglobin Concent 33, Red Cell Distribution Width 12.5, Platelet Count 220, Mean Platelet Volume 10.0, Neutrophils (%) (Auto) 45, Lymphocytes (%) (Auto) 32 , Monocytes (%) (Auto) 18H, Eosinophils (%) (Auto) 4, Basophils (%) (Auto) 2, Neutrophils # (Auto) 2.4, Lymphocytes # (Auto) 1.7, Monocytes # (Auto) 1.0, Eosinophils # (Auto) 0.2, Basophils # (Auto) 0.1, Neutrophils % (Manual) 53, Lymphocytes % (Manual) 27, Monocytes % (Manual) 15, Eosinophils % (Manual) 4, Basophils % (Manual) 1, Band Neutrophils 0, Blood Morphology Comment NORMAL, Prothrombin Time 13.7, INR Comment 1.0, Activated Partial Thromboplast Time 30, Sodium Level 138, Potassium Level 4.1, Chloride Level 103, Carbon Dioxide Level 24, Anion Gap 11, Blood Urea Nitrogen 27H, Creatinine 1.22, Estimat Glomerular Filtration Rate 58, BUN/Creatinine Ratio 22, Glucose Level 98, Calcium Level 8.3L, Magnesium Level 2.1, Total Bilirubin 0.5, Aspartate Amino Transf (AST/SGOT ) 21, Alanine Aminotransferase (ALT/SGPT) 17, Alkaline Phosphatase 63, Troponin I < 0.30, B-Type Natriuretic Peptide 73.7, Total Protein 6.6, Albumin 3.5, TSH [place] Testing 4.78 04/29/17 20:30: Lactic Acid Level 1.38 04/29/17 22:40: Troponin I < 0.30 04/30/17 04:35: White Blood Count 9.2, Red Blood Count 3.67L, Hemoglobin 11.5L, Hematocrit 35L, Mean Corpuscular Volume 96, Mean Corpuscular Hemoglobin 31, Mean Corpuscular Hemoglobin Concent 33, Red Cell Distribution Width 12.1, Platelet Count 212, Mean Platelet Volume 9.8, Neutrophils (%) (Auto) 57, Lymphocytes (%) (Auto) 17, Monocytes (%) (Auto) 24H, Eosinophils (%) (Auto) 1, Basophils (%) (Auto) 1, Neutrophils # (Auto) 5.2, Lymphocytes # (Auto) 1.6, Monocytes # (Auto) 2.2H, Eosinophils # (Auto) 0.1, Basophils # (Auto) 0.1, Sodium Level 134L, Potassium Level 4.2, Chloride Level 104, Carbon Dioxide Level 22, Anion Gap 8, Blood Urea Nitrogen 27H, Creatinine 1.37H, Estimat Glomerular Filtration Rate 51, BUN/ Creatinine Ratio 20, Glucose Level 194H, Calcium Level 7.7L, Magnesium Level 1.7L, Total Bilirubin 0.5, Aspartate Amino Transf (AST/SGOT) 17, Alanine Aminotransferase (ALT/SGPT) 15, Alkaline Phosphatase 60, Troponin I < 0.30, Total Protein 5.9L, Albumin 3.3, Phosphorus Level 2.0L, Myoglobin 161.4H 04/30/17 05:50: Urine Color YELLOW, Urine Clarity CLEAR, Urine pH 6, Urine Specific [place] 1.015L, Urine Protein NEGATIVE, Urine Glucose (UA) NEGATIVE, Urine Ketones NEGATIVE, Urine Nitrite NEGATIVE, Urine Bilirubin NEGATIVE, Urine Urobilinogen NORMAL, Urine Leukocyte Esterase NEGATIVE, Urine RBC (Auto) NEGATIVE, Urine RBC NONE, Urine WBC NONE, Urine Squamous Epithelial Cells RARE, Urine Crystals NONE , Urine Bacteria NEGATIVE, Urine Casts PRESENT, Urine Hyaline Casts RARE, Urine Mucus NEGATIVE, Urine Culture Indicated NO 04/30/17 07:25: Blood Gas Puncture Site RT RAD, Blood Gas Patient Temperature 96.8, Arterial Blood pH 7.24*L, Arterial Blood Partial Pressure CO2 50H, Arterial Blood Partial Pressure O2 98H, Arterial Blood HCO3 21L, Arterial Blood Total CO2 22.5 , Arterial Blood Oxygen Saturation 98, Arterial Blood Base Excess -5.3L, [place] Test YES-POS, Blood Gas Ventilator Setting NO, Blood Gas Inspired Oxygen 2L Radiology NAME: STEPHANY NICHOLS MED REC#: [id number] PT STATUS: ADM IN : 1940 PHYSICIAN: KENYETTA PIPER DO ADMIT DATE: 04/29/17/ICU Draft Date of Exam:04/30/17 CHEST 1 VIEW, AP/PA ONLY Clinical indication: Patient with chest pain. Exam: Portable chest x-ray semiupright view. Comparison: Portable chest x-ray dated 04/29/2017. Findings: Low lung volumes are seen with suspected mild bibasilar atelectasis. Otherwise, lungs are clear. There is no pleural effusion or pneumothorax. Cardiac silhouette is upper limits of normal for portable projection. There is no significant pulmonary vascular congestion. There are degenerative spurs seen throughout the spine. Impression: Mild bibasilar atelectasis. Otherwise there is no radiographic evidence of acute cardiopulmonary process. Dictated on workstation # [id number] Dict: 04/30/17 0744 Trans: 04/30/17 0910 [facility] [id number] Interpreted by: CHRISSIE PLASCENCIA MD Electronically signed by: NAME: STEPHANY NICHOLS MED REC#: [id number] PT STATUS: ADM IN : 1940 PHYSICIAN: OTONIEL QUIROS DO ADMIT DATE: 04/29/17/ICU Draft Date of Exam:04/30/17 CT HEAD W WO Clinical indication: Patient with lethargy. Exam: Axial CT scan of the brain performed without and with IV contrast. Comparison: Head CT without contrast dated 12/25/2016. Findings: There is no evidence of acute cerebral infarct, intracranial hemorrhage, hydrocephalus, or gross mass effect. There is no abnormal IV contrast enhancement. There are patchy confluent areas of low-attenuation white matter changes seen throughout both cerebral hemispheres which are also noted on the prior study. There is no new areas of transcortical low-attenuation abnormalities. There is normal lake-white matter distinction. The brain parenchymal volume appears appropriate for patient's age. There is no significant midline shift or herniation. There is no evidence of hydrocephalus. The basal cisterns are unremarkable. The skull, extracranial soft tissue, and orbits are unremarkable. There is mild mucosal thickening involving ethmoid sinus and both maxillary sinuses. Impression: 1: There is no interval evidence of acute cerebral infarction, intracranial hemorrhage, hydrocephalus, or enhancing mass. 2: Age-related brain parenchymal changes with chronic small vessel ischemic disease. 3: Mild paranasal sinus disease. Dictated on workstation # [id number] Dict: 04/30/17 0918 Trans: 04/30/17 0927 [facility] [id number] Interpreted by: CHRISSIE PLASCENCIA MD Electronically signed by: NAME: STEPHANY NICHOLS [facility] REC#: [id number] PT STATUS: ADM IN : 1940 PHYSICIAN: OTONIEL QUIROS DO ADMIT DATE: 04/29/17/ICU Draft Date of Exam:04/30/17 CT ABDOMEN/PELVIS W PROCEDURE: CT abdomen and pelvis with contrast. TECHNIQUE: Multiple contiguous axial images were obtained through the abdomen and pelvis after administration of intravenous contrast. INDICATION: Lethargy While I have no previous for comparison the exam can be interpreted in correlation with relevant overlapped images obtained at the time of chest CT 11/19/2015. Lung bases were nonacute. The liver and gallbladder are unremarkable. The spleen, adrenals and pancreas unremarkable. There are nonobstructing calculi within left lower pole calyces measuring maximal 5.5 mm. Stone mid third right renal cortical cyst with a diameter of 1.9 cm showing no complexity. There is no hydronephrosis and no enhancing solid or suspicious renal nodularity. The adrenals are negative. There is no abdominal pelvic ascites, abscess, hematoma or fluid collection. Urinary bladder nearly empty collapsed around an inflated Morrison retention balloon which likely accounts for the small amount of intravesical air. The appendix is normal. There is no pneumatosis or free air. There is no bowel obstruction nor evidence for ileus. There is at least moderate severity of aortoiliac and mesenteric atherosclerotic vascular disease showing a mixed calcified and noncalcified plaque without aneurysm. The aorta showed no hemodynamically significant stenosis. Calcified plaque at the celiac takeoff did not result in a hemodynamically significant stenosis. Mixed plaque at the proximal SMA narrows the lumen by about 50%. The FRANNIE is identified and patent. Renal ostial plaques did not result in a high-grade stenosis. There were no findings suggestive of CT evidence for end organ involvement by ischemia. IMPRESSION: Nonobstructing left-sided nephrolithiasis, nonaneurysmal atherosclerosis without findings of acute end organ ischemia, no obstructive phenomena or inflammatory process or acute appearing abnormalities identified. Dictated on workstation # [id number] Dict: 04/30/17 0914 Trans: 04/30/17 0926 [facility] [id number] Interpreted by: ANUP BARRIOS Electronically signed by: ECG Impression ECG Comment EKG of 04-30-17 0501 - NSR A/P-Cardiology Assessment/Admission Diagnosis Shock, non-cardiac, etiology undetermined Transient coronary ischemia (without CT) due to shock on top of known moderate CAD, now resolved with improvement of bp Acute renal insufficiency - likely ATN d/t hypotension Confusion and lethargy of undetermined etiology - possibly d/t pain medications Removal of a spine stimulatory approx a [facility] ago [facility] There is at least moderate severity of aortoiliac and mesenteric atherosclerotic vascular disease per CT of 04-30-17 Coronary artery disease with a history of drug-eluting stenting of the left circumflex and obtuse marginal in November 2004. Left cardiac catheterization of May 2011 showed that the stents were patent and there was moderate disease of the coronary arteries. Left ventricular ejection fraction was 50-55 percent. LVEDP was elevated MPI of June 28, 2015 showed no evidence of significant myocardial ischemia or infarction. Normal regional wall motion. LVEF 72% Echo of 12/30/16: LVEF 50-55%, triv MR & TR, PASP 25-30 mmHg. 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 on MRI of October 2010 Hypertension Intolerance to SANGEETHA inhibitors because of cough Nonspecific intolerance to ezetimibe and also to statins, but currently able to take atorvastatin Degenerative joint disease Chronic low backache and bilateral sciatica Chronic obstructive pulmonary disease History of tobacco use from which he is now refraining History of prostate problems Chronic neuropathy involving both arms History of cervical spinal surgery several years ago Obesity with a body mass index of approximately 38.5 Osteoporosis and osteomalacia Sleep apnea being treated with CPAP, but studies of 2014, according to the patient, indicate resolution of sleep apnea. This is followed by Dr Flores No evidence of abdominal aortic aneurysm on abdominal aortic ultrasound of 12/10 Discussion and Recomendations Chest pain of undetermined etiology, no evidence of AMI. EKG in ED shows ischemic changes, possibly r/t hypotension. EKG this morning has returned to his baseline. No further c/o CP. He remains lethargic, but is improving gradually. Remains on Bi-pap. Remains on Dopamine gtt d/t hypotension which is being titrated down. Hypotension possibly d/t pain medications and intravascular volume depletion. Continue IVF. Hold anti-hypertensives for now. Resume ASA and Plavix PHU. Echocardiogram pending. Monitor lab closely. Further recommendations will be based on his hospital course. We would like to thank medical services for this consult. This consult is being scribed by Concepcion Conrad APRN on behalf of Dr. Evans after discussion regarding plan of care. Clinical Quality Measures DVT/VTE Risk/Contraindication: Risk Factor Score Per Nursin RFS Level Per Nursing on Admit: 2=Moderate Physician Assessment Physician Assessment No cp at this time. Somewhat confused. On BiPAP Lungs: fair air entry; increase exp phase; a few scattered rhoncih Cor: S1, S2, regular, soft RALF at cardiac base Ext: no c/c/e A&R * As documented in our note above that I updated (italics) and as noted below * LVEF and ECG are currently normal and there is no evidence of ac CT. Shock appears non-cardiogenic. Given this clinical scenarion and acute renal insuff and mental obtundation, card cath may offer more risk than benefit at this stage * We have discontinued heparin * Continue antiplatelet therapy (given h/o CAD) if no Medical/Surgical contraindications * Prognosis is guarded * I discussed his case in detail with his fam (daughter) * I discussed his case in detail with Dr Quiros of the ICU Svce * Dr Otoole covering the Card Svce beginning this evening ERICK CONRAD [facility] Apr 30, 2017 08:57 JUANJO EVANS [facility] Apr 30, 2017 10:40
[2017-04-30] MEDS ORDERED: PANTOPRAZOLE 40 MG/10 ML (PROTONIX) VIAL IV SCH (09:00)
--- NOTE | 2017-04-30 09:11 | Diagnostic Imaging Report ---
Clinical indication: Patient with chest pain. Exam: Portable chest x-ray semiupright view. Comparison: Portable chest x-ray dated 04/29/2017. Findings: Low lung volumes are seen with suspected mild bibasilar atelectasis. Otherwise, lungs are clear. There is no pleural effusion or pneumothorax. Cardiac silhouette is upper limits of normal for portable projection. There is no significant pulmonary vascular congestion. There are degenerative spurs seen throughout the spine. Impression: Mild bibasilar atelectasis. Otherwise there is no radiographic evidence of acute cardiopulmonary process. Dictated by: Dictated on workstation # [id number]
--- NOTE | 2017-04-30 09:26 | Diagnostic Imaging Report ---
PROCEDURE: CT abdomen and pelvis with contrast. TECHNIQUE: Multiple contiguous axial images were obtained through the abdomen and pelvis after administration of intravenous contrast. INDICATION: Lethargy While I have no previous for comparison the exam can be interpreted in correlation with relevant overlapped images obtained at the time of chest CT 11/19/2015. Lung bases were nonacute. The liver and gallbladder are unremarkable. The spleen, adrenals and pancreas unremarkable. There are nonobstructing calculi within left lower pole calyces measuring maximal 5.5 mm. Stone mid third right renal cortical cyst with a diameter of 1.9 cm showing no complexity. There is no hydronephrosis and no enhancing solid or suspicious renal nodularity. The adrenals are negative. There is no abdominal pelvic ascites, abscess, hematoma or fluid collection. Urinary bladder nearly empty collapsed around an inflated Morrison retention balloon which likely accounts for the small amount of intravesical air. The appendix is normal. There is no pneumatosis or free air. There is no bowel obstruction nor evidence for ileus. There is at least moderate severity of aortoiliac and mesenteric atherosclerotic vascular disease showing a mixed calcified and noncalcified plaque without aneurysm. The aorta showed no hemodynamically significant stenosis. Calcified plaque at the celiac takeoff did not result in a hemodynamically significant stenosis. Mixed plaque at the proximal SMA narrows the lumen by about 50%. The FRANNIE is identified and patent. Renal ostial plaques did not result in a high-grade stenosis. There were no findings suggestive of CT evidence for end organ involvement by ischemia. IMPRESSION: Nonobstructing left-sided nephrolithiasis, nonaneurysmal atherosclerosis without findings of acute end organ ischemia, no obstructive phenomena or inflammatory process or acute appearing abnormalities identified. Dictated by: Dictated on workstation # [id number]
--- NOTE | 2017-04-30 09:28 | Diagnostic Imaging Report ---
Clinical indication: Patient with lethargy. Exam: Axial CT scan of the brain performed without and with IV contrast. Comparison: Head CT without contrast dated 12/25/2016. Findings: There is no evidence of acute cerebral infarct, intracranial hemorrhage, hydrocephalus, or gross mass effect. There is no abnormal IV contrast enhancement. There are patchy confluent areas of low-attenuation white matter changes seen throughout both cerebral hemispheres which are also noted on the prior study. There is no new areas of transcortical low-attenuation abnormalities. There is normal lake-white matter distinction. The brain parenchymal volume appears appropriate for patient's age. There is no significant midline shift or herniation. There is no evidence of hydrocephalus. The basal cisterns are unremarkable. The skull, extracranial soft tissue, and orbits are unremarkable. There is mild mucosal thickening involving ethmoid sinus and both maxillary sinuses. Impression: 1: There is no interval evidence of acute cerebral infarction, intracranial hemorrhage, hydrocephalus, or enhancing mass. 2: Age-related brain parenchymal changes with chronic small vessel ischemic disease. 3: Mild paranasal sinus disease. Dictated by: Dictated on workstation # [id number]
[2017-04-30] MEDS ORDERED: TIZA4TAB3 PO (09:31)
[2017-04-30] MEDS ORDERED: LOSA100T28 PO (09:31)
[2017-04-30] MEDS ORDERED: HYDR-3816 PO (09:31)
[2017-04-30] MEDS ORDERED: ATEN25TA PO (09:31)
[2017-04-30] MEDS ORDERED: DEXL60CA PO (09:31)
[2017-04-30] MEDS: NS IV 1000 ML 1,000 ML IV SCH ×2 (12:57→17:59)
[2017-04-30] MEDS: HYDROCORTISONE 100 MG/2 ML (Solu-CORTEF) VIAL IV SCH ×2 (14:00→22:02)
--- NOTE | 2017-04-30 18:03 | History & Physicial ---
History of Present Illness History of Present Illness Reason for visit/HPI This is a 76 year old male who was brought to the emergency room with weakness and lethargy. He has a history of chronic back pain and had a nerve stimulator removed 2 days prior. Upon examination in the emergency room he was complaining of severe epigastric pain as well as chest pain and did have new EKG changes. He was given morphine and fentanyl and then had lethargy and did require placement on BIPAP and admission to the ICU. He was found to be dehydrated with hypotension as well as acute renal insufficiency. He will be admitted to the ICU with both cardiology and pulmonology consult. Date of Admission Apr 29, 2017 at 10:07 pm Date Seen by Provider: Apr 30, 2017 Time Seen by Provider: 11:45 I consulted on this patient on 04/30/17 17:56 Attending Physician Haylee Piper DO Admitting Physician Haylee Piper DO Consult Allergies and Home Medications Allergies Coded Allergies: Sulfa (Sulfonamide Antibiotics) (Verified Allergy, Unknown, 08/20/15) Home Medications Acetaminophen 500 Mg Tablet, 1,000 MG PO Q6H PRN for PAIN-MILD, (Reported) TAKES 2 (500 MG) TABLETS Albuterol Sulfate 18 Gm Hfa.aer.ad, 2 PUFF INH Q4H PRN for SHORTNESS OF BREATH, (Reported) Aspirin 81 Mg Tablet., 81 MG PO DAILY, (Reported) Atenolol 25 Mg Tablet, 25 MG PO BID, (Reported) Atorvastatin Calcium 40 Mg Tablet, 40 MG PO DAILY, (Reported) Dexlansoprazole 60 Mg Cap.bp, 60 MG PO DAILY, (Reported) Docusate Sodium 100 Mg Capsule, 100 MG PO HS PRN for CONSTIPATION-1ST LINE, ( Reported) Duloxetine HCl 60 Mg Capsule.dr, 60 MG PO BID, (Reported) Hydrocodone/Acetaminophen 1 Each Tablet, 1 TAB PO Q6H PRN for PAIN-MODERATE, ( Reported) Ipratropium [place] 15 Ml Naspr, 2 SPRAYS NS DAILY PRN for ALLERGIES, (Reported) Losartan Potassium 100 Mg Tablet, 100 MG PO DAILY, (Reported) [place]-3 Fatty Acids/Fish Oil 1 Each Capsule, 1,200 MG PO DAILY, (Reported) Pregabalin 100 Mg Capsule, 100 MG PO BID, (Reported) Tizanidine HCl 4 Mg Tablet, 4 MG PO BID PRN for MUSCLE SPASMS, (Reported) Past Vthpaap-Fpeplp-Fwouov Hx Patient Social History Alcohol Use: Denies Use Recreational Drug Use: No Smoking Status: Former Smoker Former Smoker, Quit: Aug 31, 2012 Type Used: Cigarettes Physical Abuse Screen: No Sexual Abuse: No Recent Foreign Travel: No Contact w/other who traveled: No Recent Hopitalizations: No Recent Infectious Disease Expo: No Immunizations Up To Date Tetanus Booster (TDap): More than 5yrs Pediatric: No Date of Pneumonia Vaccine: May 31, 2014 Date of Influenza Vaccine: May 31, 2015 Seasonal Allergies Seasonal Allergies: Yes Surgeries Yes (back, prostate, colonoscopy, CARDIAC CATH/STENTS, STENTS IN CAROTID ARTERY , STENTS IN LEGS; TEMPORARY/TRIAL NERVE/SPINAL STIMULATOR) Cardiac, Coronary Stent, Eye Surgery, Orthopedic, Vascular Surgery Respiratory Yes (COPD) COPD Currently Using CPAP: No Currently Using BIPAP: No Cardiovascular Yes (STENTS IN HEART, CAROTID ARTERY, LEGS) Coronary Artery Disease, High Cholesterol, Hypertension, Peripheral Vascular Neurological No Reproductive System Hx Reproductive Disorders: No Sexually Transmitted Disease: No HIV/AIDS: No Genitourinary Yes Prostate Problems Gastrointestinal Yes (ABDOMINAL PAIN AT TIMES) Gastroesophageal Reflux, Diverticulosis, Hemorrhoids Musculoskeletal Yes (ARTHRITIS "ALL OVER") Degenerate Disk Disease, Arthritis, Chronic Back Pain Endocrine History of Endocrine Disorders: No HEENT History of HEENT Disorders: No Loss of Vision: Denies Hearing Impairment: Denies Cancer No Psychosocial History of Psychiatric Problem: Yes Behavioral Health Disorders: Depression Integumentary History of Skin or Integumenta: No Blood Transfusions History of Blood Disorders: No Adverse Reaction to a Blood Tr: No Family Medical History Significant Family History: No Pertinent Family Hx Family Hx: Patient reports no known family medical history. Constitutional: weakness EENTM: No see HPI, No no symptoms reported, No ear discharge, No hearing loss, No ear pain, No blurred vision, No double vision, No eye pain, No tearing, No vision loss, No dental problems, No hoarseness, No mouth pain, No mouth swelling , No epistaxis, No nose congestion, No nose pain, No throat pain, No throat swelling, No other Respiratory: No no symptoms reported, No see HPI, No cough, No dyspnea on exertion, No hemoptysis, No orthopnea, No phlegm, No short of breath, No stridor , No wheezing, No other Cardiovascular: chest pain Gastrointestinal: abdominal pain Genitourinary: decreased output Musculoskeletal: back pain Skin: No no symptoms reported, No see HPI, No change in color, No change in hair/nails, No dryness, No hx of skin cancer, No lesions, No lumps, No pruritus , No rash, No other Psychiatric/Neurological: Numbness, Weakness Physical Exam Vital Signs Vital Sign - Last 12Hours 04/29/17 04/29/17 04/29/17 20:09 20:16 23:00 Temp 96.8 Pulse 54 Resp 14 B/P (MAP) 71/24 Pulse Ox 98 O2 Delivery Nasal Cannula O2 Flow Rate 2.00 FiO2 100 Capillary Refill : Greater Than 3 Seconds General Appearance: Other (drowsy on BIPAP) HEENT: Other (on BIPAP) Neck: Supple Respiratory: Lungs Clear, Decreased Breath Sounds Cardiovascular: Regular Rate, Rhythm, Systolic Murmur, Gallop/S4 Gastrointestinal: Normal Bowel Sounds, Non Tender, Soft Rectal: Deferred Back: No CVA Tenderness Extremity: Non Tender, No Calf Tenderness, No Pedal Edema Neurologic/Psychiatric: Disoriented x3 Skin: Warm/Dry Comments Laboratory Tests 04/29/17 20:00: White Blood Count 5.4, Red Blood Count 3.88L, Hemoglobin 12.3L, Hematocrit 38L, Mean Corpuscular Volume 97, Mean Corpuscular Hemoglobin 32, Mean Corpuscular Hemoglobin Concent 33, Red Cell Distribution Width 12.5, Platelet Count 220, Mean Platelet Volume 10.0, Neutrophils (%) (Auto) 45, Lymphocytes (%) (Auto) 32 , Monocytes (%) (Auto) 18H, Eosinophils (%) (Auto) 4, Basophils (%) (Auto) 2, Neutrophils # (Auto) 2.4, Lymphocytes # (Auto) 1.7, Monocytes # (Auto) 1.0, Eosinophils # (Auto) 0.2, Basophils # (Auto) 0.1, Neutrophils % (Manual) 53, Lymphocytes % (Manual) 27, Monocytes % (Manual) 15, Eosinophils % (Manual) 4, Basophils % (Manual) 1, Band Neutrophils 0, Blood Morphology Comment NORMAL, Prothrombin Time 13.7, INR Comment 1.0, Activated Partial Thromboplast Time 30, Sodium Level 138, Potassium Level 4.1, Chloride Level 103, Carbon Dioxide Level 24, Anion Gap 11, Blood Urea Nitrogen 27H, Creatinine 1.22, Estimat Glomerular Filtration Rate 58, BUN/Creatinine Ratio 22, Glucose Level 98, Calcium Level 8.3L, Magnesium Level 2.1, Total Bilirubin 0.5, Aspartate Amino Transf (AST/SGOT ) 21, Alanine Aminotransferase (ALT/SGPT) 17, Alkaline Phosphatase 63, Troponin I < 0.30, B-Type Natriuretic Peptide 73.7, Total Protein 6.6, Albumin 3.5, TSH [place] Testing 4.78 04/29/17 20:30: Lactic Acid Level 1.38 04/29/17 22:40: Troponin I < 0.30 04/30/17 04:35: White Blood Count 9.2, Red Blood Count 3.67L, Hemoglobin 11.5L, Hematocrit 35L, Mean Corpuscular Volume 96, Mean Corpuscular Hemoglobin 31, Mean Corpuscular Hemoglobin Concent 33, Red Cell Distribution Width 12.1, Platelet Count 212, Mean Platelet Volume 9.8, Neutrophils (%) (Auto) 57, Lymphocytes (%) (Auto) 17, Monocytes (%) (Auto) 24H, Eosinophils (%) (Auto) 1, Basophils (%) (Auto) 1, Neutrophils # (Auto) 5.2, Lymphocytes # (Auto) 1.6, Monocytes # (Auto) 2.2H, Eosinophils # (Auto) 0.1, Basophils # (Auto) 0.1, Sodium Level 134L, Potassium Level 4.2, Chloride Level 104, Carbon Dioxide Level 22, Anion Gap 8, Blood Urea Nitrogen 27H, Creatinine 1.37H, Estimat Glomerular Filtration Rate 51, BUN/ Creatinine Ratio 20, Glucose Level 194H, Calcium Level 7.7L, Magnesium Level 1.7L, Total Bilirubin 0.5, Aspartate Amino Transf (AST/SGOT) 17, Alanine Aminotransferase (ALT/SGPT) 15, Alkaline Phosphatase 60, Troponin I < 0.30, Total Protein 5.9L, Albumin 3.3, Phosphorus Level 2.0L, Myoglobin 161.4H, Free Thyroxine 0.77 04/30/17 05:50: Urine Color YELLOW, Urine Clarity CLEAR, Urine pH 6, Urine Specific [place] 1.015L, Urine Protein NEGATIVE, Urine Glucose (UA) NEGATIVE, Urine Ketones NEGATIVE, Urine Nitrite NEGATIVE, Urine Bilirubin NEGATIVE, Urine Urobilinogen NORMAL, Urine Leukocyte Esterase NEGATIVE, Urine RBC (Auto) NEGATIVE, Urine RBC NONE, Urine WBC NONE, Urine Squamous Epithelial Cells RARE, Urine Crystals NONE , Urine Bacteria NEGATIVE, Urine Casts PRESENT, Urine Hyaline Casts RARE, Urine Mucus NEGATIVE, Urine Culture Indicated NO, Urine Opiates Screen POSITIVEH, Urine Oxycodone Screen NEGATIVE, Urine Methadone Screen NEGATIVE, Urine Propoxyphene Screen NEGATIVE, Urine Barbiturates Screen NEGATIVE, Ur Tricyclic Antidepressants Screen NEGATIVE, Urine Phencyclidine Screen NEGATIVE, Urine Amphetamines Screen NEGATIVE, Urine Methamphetamines Screen NEGATIVE, Urine Benzodiazepines Screen NEGATIVE, Urine Cocaine Screen NEGATIVE, Urine Cannabinoids Screen NEGATIVE 04/30/17 07:25: Blood Gas Puncture Site RT RAD, Blood Gas Patient Temperature 96.8, Arterial Blood pH 7.24*L, Arterial Blood Partial Pressure CO2 50H, Arterial Blood Partial Pressure O2 98H, Arterial Blood HCO3 21L, Arterial Blood Total CO2 22.5 , Arterial Blood Oxygen Saturation 98, Arterial Blood Base Excess -5.3L, [place] Test YES-POS, Blood Gas Ventilator Setting NO, Blood Gas Inspired Oxygen 2L Microbiology 04/29/17 Blood Culture - Preliminary, Resulted No growth Assessment/Plan Assessment and Plan 1. Acute Hypotension due to Dehydration--admit and hydrate and monitor BP 2. Acute Renal Insufficiency--monitor Cr with hydration 3. Altered Mental Status--on BIPAP, likely from fentanyl and morphine 4. Chronic Back Pain with recent removal of nerve stimulator--cultures pending 5. Chest Pain with EKG changes--cardiology consulted Problems: Clinical Quality Measures DVT/VTE Risk/Contraindication: Risk Factor Score Per Nursin RFS Level Per Nursing on Admit: 2=Moderate HAYLEE PIPER DO Apr 30, 2017 6:03 pm
[2017-05-01] VITALS (12 sets, daily range): BP systolic 102–162; BP diastolic 49–79
[2017-05-01] MEDS: NS IV 1000 ML 1,000 ML IV SCH ×4 (01:00→21:40)
[2017-05-01 05:09] LABS: BASOPHILS % (AUTO) 0 % (0-10); EOSINOPHILS % (AUTO) 0 % (0-10); LYMPHOCYTES # (AUTO) 0.9 X 10^3 (1.0-4.0); LYMPHOCYTES % (AUTO) 12 % (12-44); MEAN CORPUSCULAR HEMOGLOBIN 31 PG (25-34); MEAN CORPUSCULAR HGB CONC 32 G/DL (32-36); MEAN CORPUSCULAR VOLUME 97 FL (80-99); MEAN PLATELET VOLUME 10.2 FL (7.4-10.4); MONOCYTES # (AUTO) 0.8 X 10^3 (0.0-1.0); MONOCYTES % (AUTO) 10 % (0-12); NEUTROPHILS # (AUTO) 5.9 X 10^3 (1.8-7.8); NEUTROPHILS % (AUTO) 78 % (42-75); PLATELET COUNT 155 10^3/uL (130-400); RED BLOOD COUNT 3.38 10^6/uL (4.35-5.85); RED CELL DISTRIBUTION WIDTH 12.4 % (10.0-14.5); WHITE BLOOD COUNT 7.5 10^3/uL (4.3-11.0)
[2017-05-01 05:33] LABS: ANION GAP 9 MMOL/L (5-14); BLOOD UREA NITROGEN 18 MG/DL (7-18); BUN/CREATININE RATIO 20; CALCIUM 7.5 MG/DL (8.5-10.1); CARBON DIOXIDE 17 MMOL/L (21-32); CHLORIDE 114 MMOL/L (98-107); CREATININE SERUM 0.91 MG/DL (0.60-1.30); GFR ESTIMATED > 60; GLUCOSE 117 MG/DL (70-105); MAGNESIUM 1.9 MG/DL (1.8-2.4); PHOSPHORUS 2.6 MG/DL (2.3-4.7); POTASSIUM 4.6 MMOL/L (3.6-5.0); SODIUM 140 MMOL/L (135-145)
--- NOTE | 2017-05-01 06:22 | Pulmonary Progress Note ---
Subjective Time Seen by Provider: 06:28 Subjective/Events-last exam PT is doing much better. He is awake/alert and off dopamine. Exam Exam Vital Signs Date Time Temp Pulse Resp B/P (MAP) Pulse Ox O2 Delivery O2 Flow Rate FiO2 05/01/17 06:00 64 12 124/56 98 Room Air 05/01/17 05:00 64 21 126/57 100 Room Air 05/01/17 04:07 98.1 Room Air 05/01/17 04:00 62 11 131/53 100 Room Air 05/01/17 04:00 98 Room Air 05/01/17 03:00 62 13 100 Room Air 05/01/17 02:00 64 12 111/53 100 Room Air 05/01/17 01:00 73 05/01/17 01:00 75 16 106/49 98 Room Air 05/01/17 00:57 99.1 Room Air 05/01/17 00:00 65 10 102/51 99 Room Air 05/01/17 00:00 97 Room Air 04/30/17 23:00 64 12 103/63 100 Room Air 04/30/17 22:01 100.0 66 16 102/50 100 2.00 04/30/17 22:00 64 11 136/72 98 Room Air 04/30/17 21:00 66 16 102/50 100 Room Air 04/30/17 21:00 NIV Bilevel 21 04/30/17 20:26 98 Nasal Cannula 2.00 04/30/17 20:00 62 18 126/78 97 NIV Bilevel 21.00 04/30/17 20:00 63 14 97 21.00 04/30/17 19:49 100.0 61 18 114/57 98 NIV Bilevel 21.00 04/30/17 19:00 63 04/30/17 18:00 76 14 126/55 96 NIV Bilevel 21.00 04/30/17 17:00 78 11 129/53 95 NIV Bilevel 21.00 04/30/17 16:36 75 16 96 21.00 04/30/17 16:25 NIV Bilevel 21 04/30/17 16:25 98.5 04/30/17 16:00 79 11 122/49 96 NIV Bilevel 21.00 04/30/17 15:00 69 17 124/58 96 NIV Bilevel 21.00 04/30/17 14:07 72 10 96/39 97 NIV/Bilevel 21.00 04/30/17 14:00 70 16 95/81 97 NIV Bilevel 21.00 04/30/17 14:00 69 16 96 21.00 04/30/17 13:00 70 14 112/54 96 NIV Bilevel 21.00 04/30/17 13:00 71 04/30/17 12:05 98.6 04/30/17 12:05 NIV Bilevel 21 04/30/17 12:00 73 12 121/82 95 NIV Bilevel 21.00 04/30/17 11:03 67 16 97 21.00 04/30/17 11:00 69 11 105/52 96 NIV Bilevel 21.00 04/30/17 10:00 66 12 109/62 95 NIV Bilevel 21.00 04/30/17 09:41 95 16 99 21.00 04/30/17 09:25 NIV Bilevel 21.00 04/30/17 09:05 97.6 04/30/17 09:00 71 11 101/44 95 Nasal Cannula 3.00 04/30/17 08:00 Nasal Cannula 2.00 04/30/17 08:00 69 13 108/81 95 Nasal Cannula 3.00 04/30/17 07:55 96.8 67 13 121/72 100 Nasal Cannula 2.00 04/30/17 07:45 96.8 04/30/17 07:00 66 11 101/62 100 Nasal Cannula 3.00 04/30/17 07:00 67 General Appearance: No Apparent Distress, WD/WN, Other HEENT: PERRL/EOMI, Pharynx Normal Neck: Supple Respiratory: Lungs Clear, Decreased Breath Sounds Cardiovascular: Regular Rate, Rhythm, Systolic Murmur, Gallop/S4 Capillary Refill: Greater Than 3 Seconds Extremity: Non Tender, No Calf Tenderness, No Pedal Edema Neurologic/Psychiatric: Alert, Oriented x3 Skin: Normal Color, Warm/Dry Lymphatic: No Adenopathy Results Lab Laboratory Tests 04/29/17 20:00 04/30/17 04:35 05/01/17 04:51 Assessment/Plan Assessment/Plan Hypotension probably secondary to dehydration -thyroid studies, random cortisol pending -antunez cultures pending -IVF -Start solucortef 100mg IV Q8 --D/C Dehydration with decreased UO -IVF Chronic back pain Recent removal of spinal stimulator -ortho consulted -MRI is pending Lethargic probably secondary to pain meds in ED -probably secondary to pain meds and c02 narcosis CP with EKG changes in ED - Abdominal pain -CT of abdomen reviewed Morbid obesity Labs and radiology reviewed Transfer to 4th floor. D/C aravind, ashly retana 30 min spent with patient and medical team discussing current management. Clinical Quality Measures DVT/VTE Risk/Contraindication: Risk Factor Score Per Nursin RFS Level Per Nursing on Admit: 2=Moderate OTONIEL BURGER DO May 01, 2017 06:22
--- NOTE | 2017-05-01 08:00 | Diagnostic Imaging Report ---
INDICATION: Followup chest, chest pain, ICU care management. COMPARISON STUDY: Chest radiograph from yesterday. FINDINGS: Portable upright view of the chest demonstrates previous mild prominence of the pulmonary vessels have resolved. Heart size remains upper normal with mild calcification of the aorta. A central venous catheter has been placed with its tip near the atriocaval junction. No pneumothorax or pleural effusion is present. IMPRESSION: 1. Interval placement of a right subclavian catheter in good position. 2. Mild congestion has resolved. Dictated by: Dictated on workstation # [id number]
[2017-05-01] MEDS: ASPIRIN E.C. 325 MG (ECOTRIN) TABLET PO SCH (08:55)
[2017-05-01] MEDS ORDERED: ACETAMINOPHEN 500 MG TAB (TYLENOL) PO PRN (11:15)
[2017-05-01] MEDS ORDERED: PATIENT MAY USE OWN MEDS, ALL MC SCH (11:15)
[2017-05-01] MEDS ORDERED: DOCUSATE SODIUM 100 MG (COLACE) CAP PO PRN (11:15)
[2017-05-01] MEDS ORDERED: HYDROcodone/APAP 7.5 MG/325 MG (LORTAB, LORCET PLUS) TABLET PO PRN (11:15)
--- NOTE | 2017-05-01 11:24 | Progress Note (SOAP) ---
Subjective Date Seen by Provider: May 01, 2017 Time Seen by Provider: 11:15 Subjective/Events-last exam Fwup acute hypotension due to dehydration, acute renal insufficiency, altered mental status, chronic back pain with recent nerve stimulator trial and removal. Off of dopamine drip and BIPAP and awake and alert. Patient states he took 7 days of lasix during his nerve stimulator trial as he had swelling in his feet and legs. Then following the removal of the nerve stimulator, he had clear fluid draining from the site for at least 24hrs. The family still reports some confusion at times. The patient is asking to go home today. Objective Exam Vital Signs Date Time Temp Pulse Resp B/P (MAP) Pulse Ox O2 Delivery O2 Flow Rate FiO2 05/01/17 08:00 98 Room Air 05/01/17 07:53 98.6 77 23 132/62 98 Room Air 05/01/17 07:00 64 05/01/17 06:00 64 12 124/56 98 Room Air 05/01/17 05:00 64 21 126/57 100 Room Air 05/01/17 04:07 98.1 Room Air 05/01/17 04:00 62 11 131/53 100 Room Air 05/01/17 04:00 98 Room Air 05/01/17 03:00 62 13 100 Room Air 05/01/17 02:00 64 12 111/53 100 Room Air 05/01/17 01:00 73 05/01/17 01:00 75 16 106/49 98 Room Air 05/01/17 00:57 99.1 Room Air 05/01/17 00:00 65 10 102/51 99 Room Air 05/01/17 00:00 97 Room Air 04/30/17 23:00 64 12 103/63 100 Room Air 04/30/17 22:01 100.0 66 16 102/50 100 2.00 04/30/17 22:00 64 11 136/72 98 Room Air 04/30/17 21:00 66 16 102/50 100 Room Air 04/30/17 21:00 NIV Bilevel 21 04/30/17 20:26 98 Nasal Cannula 2.00 04/30/17 20:00 62 18 126/78 97 NIV Bilevel 21.00 04/30/17 20:00 63 14 97 21.00 04/30/17 19:49 100.0 61 18 114/57 98 NIV Bilevel 21.00 8/31/17 19:00 63 04/30/17 18:00 76 14 126/55 96 NIV Bilevel 21.00 04/30/17 17:00 78 11 129/53 95 NIV Bilevel 21.00 04/30/17 16:36 75 16 96 21.00 04/30/17 16:25 NIV Bilevel 21 04/30/17 16:25 98.5 04/30/17 16:00 79 11 122/49 96 NIV Bilevel 21.00 04/30/17 15:00 69 17 124/58 96 NIV Bilevel 21.00 04/30/17 14:07 72 10 96/39 97 NIV/Bilevel 21.00 04/30/17 14:00 70 16 95/81 97 NIV Bilevel 21.00 04/30/17 14:00 69 16 96 21.00 04/30/17 13:00 70 14 112/54 96 NIV Bilevel 21.00 04/30/17 13:00 71 04/30/17 12:05 98.6 04/30/17 12:05 NIV Bilevel 21 04/30/17 12:00 73 12 121/82 95 NIV Bilevel 21.00 I & O 05/02/17 07:00 Intake Total 360 ml Output Total 650 ml Balance -290 ml Capillary Refill : Less Than 3 Seconds General Appearance: No Apparent Distress Neck: Supple Respiratory: Lungs Clear Cardiovascular: Regular Rate, Rhythm, Systolic Murmur, Gallop/S4 Gastrointestinal: normal bowel sounds, non tender, soft Extremity: Non Tender, No Calf Tenderness, No Pedal Edema Neurologic/Psychiatric: Alert, Oriented x3 Results Lab Laboratory Tests 05/01/17 04:51: White Blood Count 7.5, Red Blood Count 3.38L, Hemoglobin 10.6L, Hematocrit 33L, Mean Corpuscular Volume 97, Mean Corpuscular Hemoglobin 31, Mean Corpuscular Hemoglobin Concent 32, Red Cell Distribution Width 12.4, Platelet Count 155, Mean Platelet Volume 10.2, Neutrophils (%) (Auto) 78H, Lymphocytes (%) (Auto) 12 , Monocytes (%) (Auto) 10, Eosinophils (%) (Auto) 0, Basophils (%) (Auto) 0, Neutrophils # (Auto) 5.9, Lymphocytes # (Auto) 0.9L, Monocytes # (Auto) 0.8, Eosinophils # (Auto) 0.0, Basophils # (Auto) 0.0, Sodium Level 140, Potassium Level 4.6, Chloride Level 114H, Carbon Dioxide Level 17L, Anion Gap 9, Blood Urea Nitrogen 18, Creatinine 0.91, Estimat Glomerular Filtration Rate > 60, BUN/ Creatinine Ratio 20, Glucose Level 117H, Calcium Level 7.5L, Phosphorus Level 2.6, Magnesium Level 1.9 Microbiology 04/29/17 Blood Culture - Preliminary, Resulted No growth 04/29/17 MRSA Screen - Final, Complete MRSA not isolated Assessment/Plan Assessment/Plan Assess & Plan/Chief Complaint 1. Acute Hypotension due to Dehydration--off dopamine drip and Cr back to normal with BP much improved--will not restart cozaar or atenolol yet as BP is still running 120s/70s, cultures negative so far 2. Acute Renal Insufficiency--improved with hydration 3. Altered Mental Status--improving, felt to be secondary to narcotic buildup due to his renal insufficiency 4. Chronic Back Pain--Recent Nerve Stimulator trial--ortho has been called to assess patient 5. GERD--resume PPI 6. Chest Pain--Resolved 7. Abdominal Pain--resolved and CT scan of abdomen/pelvis negative for any acute process 8. Transfer to medical floor, remove nazario catheter, up to chair and ambulate Clinical Quality Measures DVT/VTE Risk/Contraindication: Risk Factor Score Per Nursin RFS Level Per Nursing on Admit: 2=Moderate KENYETTA BALDWIN DO May 01, 2017 11:24
[2017-05-01] MEDS ORDERED: DULoxetine 30 MG (CYMBALTA) CAP PO SCH (11:30)
[2017-05-01] MEDS: DEXLANSOPRAZOLE 60 MG PO SCH (12:04)
[2017-05-01] MEDS: DULoxetine 60 MG CAPSULE PO SCH (12:05)
[2017-05-01] MEDS ORDERED: RT-ALBUTEROL HFA (VENTOLIN) PER PUFF IH PRN (18:00)
[2017-05-01] MEDS ORDERED: RT-ALBUTEROL SULF 2.5 MG/3 ML PRE-MIX VIAL IH PRN (18:15)
[2017-05-01] MEDS ORDERED: RT-ALBUTEROL SULF 2.5 MG/3 ML PRE-MIX VIAL ONE (20:10)
[2017-05-01] MEDS: PREGABALIN 100 MG (LYRICA) CAPSULE PO SCH (20:30)
--- NOTE | 2017-05-01 21:47 | Cardiology Progress Note ---
Cardiology SOAP Progress Note Subjective: Late entry. patient seen at 7.30 am. No complaints. Normal mental status. Objective: I&O/Vital Signs Vital Sign - Last 12Hours 05/01/17 05/01/17 05/01/17 05/01/17 12:09 13:00 13:00 16:00 Temp 98.0 98.4 99.1 Pulse 81 88 78 83 Resp 17 20 22 B/P (MAP) 134/79 103/57 126/58 Pulse Ox 99 95 97 O2 Delivery Room Air Room Air Room Air 05/01/17 05/01/17 19:00 20:00 Temp 99.1 Pulse 76 83 Resp 20 B/P (MAP) 162/67 Pulse Ox 97 O2 Delivery Room Air Intake and Output 05/02/17 00:00 Intake Total 1600 ml Output Total 400 ml Balance 1200 ml Weight (Pounds): 254 Weight (Ounces): 1.0 Weight (Calculated Kilograms): 115.402399 Constitutional: other (Lethargic) Respiratory: other (diminished bases bilat; fair air entry) Cardiovascular: regular rate-rhythm, No JVD, S1 and S2 Gastrointestional: No tender, soft, audible bowel sounds Genital/Rectal: other (Urinary catheter to DD with yellow urine) Extremities: no lower extremity edema bilateral Neurologic/Psychiatric: No doughnut glazier II-XII nml as tested, No no motor/sensory deficits, No alert, No normal mood/affect, No oriented x 3, No abnormal cerebellar tests, No abnormal doughnut glazier II-XII, No abnormal gait, No aphasia, No EOM palsy, No facial droop, No motor weakness, No sensory deficit, No depressed affect, No disoriented x 3, No grossly intact, No power is 5/5 both on sides Skin: No ulcerations Results/Procedures: Labs Laboratory Tests 05/01/17 04:51: White Blood Count 7.5, Red Blood Count 3.38L, Hemoglobin 10.6L, Hematocrit 33L, Mean Corpuscular Volume 97, Mean Corpuscular Hemoglobin 31, Mean Corpuscular Hemoglobin Concent 32, Red Cell Distribution Width 12.4, Platelet Count 155, Mean Platelet Volume 10.2, Neutrophils (%) (Auto) 78H, Lymphocytes (%) (Auto) 12 , Monocytes (%) (Auto) 10, Eosinophils (%) (Auto) 0, Basophils (%) (Auto) 0, Neutrophils # (Auto) 5.9, Lymphocytes # (Auto) 0.9L, Monocytes # (Auto) 0.8, Eosinophils # (Auto) 0.0, Basophils # (Auto) 0.0, Sodium Level 140, Potassium Level 4.6, Chloride Level 114H, Carbon Dioxide Level 17L, Anion Gap 9, Blood Urea Nitrogen 18, Creatinine 0.91, Estimat Glomerular Filtration Rate > 60, BUN/ Creatinine Ratio 20, Glucose Level 117H, Calcium Level 7.5L, Phosphorus Level 2.6, Magnesium Level 1.9 Microbiology 04/29/17 Blood Culture - Preliminary, Resulted No growth 04/29/17 MRSA Screen - Final, Complete MRSA not isolated A/P: Assessment/Dx: Shock, non-cardiac, etiology undetermined Transient coronary ischemia (without MN) due to shock on top of known moderate CAD, now resolved with improvement of bp Acute renal insufficiency - likely ATN d/t hypotension Confusion and lethargy of undetermined etiology - possibly d/t pain medications Removal of a spine stimulatory approx a week ago at [facility] There is at least moderate severity of aortoiliac and mesenteric atherosclerotic vascular disease per CT of 04-30-17 Coronary artery disease with a history of drug-eluting stenting of the left circumflex and obtuse marginal in November 2004. Left cardiac catheterization of May 2011 showed that the stents were patent and there was moderate disease of the coronary arteries. Left ventricular ejection fraction was 50-55 percent. LVEDP was elevated MPI of June 28, 2015 showed no evidence of significant myocardial ischemia or infarction. Normal regional wall motion. LVEF 72% Echo of 12/30/16: LVEF 50-55%, triv MR & TR, PASP 25-30 mmHg. 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 on MRI of October 2010 Hypertension Intolerance to SANGEETHA inhibitors because of cough Nonspecific intolerance to ezetimibe and also to statins, but currently able to take atorvastatin Degenerative joint disease Chronic low backache and bilateral sciatica Chronic obstructive pulmonary disease History of tobacco use from which he is now refraining History of prostate problems Chronic neuropathy involving both arms History of cervical spinal surgery several years ago Obesity with a body mass index of approximately 38.5 Osteoporosis and osteomalacia Sleep apnea being treated with CPAP, but studies of 2014, according to the patient, indicate resolution of sleep apnea. This is followed by Dr Flores No evidence of abdominal aortic aneurysm on abdominal aortic ultrasound of 12/10 Plan: Chest pain likely due to cardiac underperfusion due to shock (which is likely non-cardiac in origin). No evidence of myocardial injury (MN) since three sets of troponin negative. EKG improved, shock resolved - could be non-cardiac in origin (dehydration, epidural pain meds?). Continue aspirin, plavix. no further heparin required. I do not recommend cath urgently since patient also has acute on chronic kidney injury. May need either nuclear stress test or cath in the near future. Thank you for your consultation. Please call me if you have any questions. Mary Otoole MD, FACP, FACC, FSCAI, FHRS, CCDS Interventional Cardiology Cardiac Electrophysiology Vascular Medicine and Endovascular Interventions Inga OTOOLE MD May 01, 2017 9:47 pm
[2017-05-02] VITALS (8 sets, daily range): BP systolic 121–150; BP diastolic 55–70
[2017-05-02] MEDS: DEXLANSOPRAZOLE 60 MG PO SCH (05:48)
[2017-05-02 06:06] LABS: BASOPHILS % (AUTO) 0 % (0-10); EOSINOPHILS % (AUTO) 0 % (0-10); LYMPHOCYTES # (AUTO) 1.1 X 10^3 (1.0-4.0); LYMPHOCYTES % (AUTO) 6 % (12-44); MEAN CORPUSCULAR HEMOGLOBIN 32 PG (25-34); MEAN CORPUSCULAR HGB CONC 33 G/DL (32-36); MEAN CORPUSCULAR VOLUME 96 FL (80-99); MEAN PLATELET VOLUME 10.2 FL (7.4-10.4); MONOCYTES % (AUTO) 11 % (0-12); NEUTROPHILS # (AUTO) 14.8 X 10^3 (1.8-7.8); NEUTROPHILS % (AUTO) 82 % (42-75); PLATELET COUNT 179 10^3/uL (130-400); RED BLOOD COUNT 3.55 10^6/uL (4.35-5.85); RED CELL DISTRIBUTION WIDTH 12.9 % (10.0-14.5); WHITE BLOOD COUNT 17.9 10^3/uL (4.3-11.0)
[2017-05-02 06:19] LABS: ANION GAP 9 MMOL/L (5-14); BLOOD UREA NITROGEN 13 MG/DL (7-18); BUN/CREATININE RATIO 17; CALCIUM 7.7 MG/DL (8.5-10.1); CARBON DIOXIDE 19 MMOL/L (21-32); CHLORIDE 110 MMOL/L (98-107); CREATININE SERUM 0.77 MG/DL (0.60-1.30); GFR ESTIMATED > 60; GLUCOSE 100 MG/DL (70-105); POTASSIUM 3.9 MMOL/L (3.6-5.0); SODIUM 138 MMOL/L (135-145)
[2017-05-02 06:24] LABS: BAND NEUTROPHILS 4 %; BASOPHILS % (MANUAL) 0 %; EOSINOPHILS % (MANUAL) 0 %; LYMPHOCYTES % (MANUAL) 3 %; NEUTROPHILS % (MANUAL) 78 %; REACTIVE LYMPHOCYTES 2 %
[2017-05-02] MEDS: RT-ALBUTEROL SULF 2.5 MG/3 ML PRE-MIX VIAL IH SCH ×2 (07:35→21:18)
[2017-05-02] MEDS ORDERED: ASPIRIN E.C. 81 MG (ECOTRIN) TAB PO SCH (09:00)
[2017-05-02] MEDS: DULoxetine 60 MG CAPSULE PO SCH ×2 (09:01→20:15)
[2017-05-02] MEDS: PREGABALIN 100 MG (LYRICA) CAPSULE PO SCH ×2 (09:01→20:14)
--- NOTE | 2017-05-02 09:37 | Progress Note-Hospitalist ---
Subjective HPI/CC On Admission Date Seen by Provider: May 02, 2017 Time Seen by Provider: 09:10 Subjective/Events-last exam patient has become progressively more hypoxic with desaturations with any movement. Blood pressure has recovered and he now is tachycardic. He appears weak and pale this morning. He has been afebrile however his white count is markedly elevated this morning. he has not received any doses of steroids. he seems to be confused and his is adamant that there is no way she can take him home in his current condition. He was a full assist just to sit him up for me to examine his back and listened to his lungs. Review of Systems Pulmonary: Dyspnea Neurological: Weakness Objective Exam Vital Signs Vital Sign - Last 12Hours 04/29/17 04/29/17 04/29/17 20:09 20:16 23:00 Temp 96.8 Pulse 54 Resp 14 B/P (MAP) 71/24 Pulse Ox 98 O2 Delivery Nasal Cannula O2 Flow Rate 2.00 FiO2 100 Capillary Refill : Less Than 3 Seconds General Appearance: Mild Distress, Obese HEENT: Pale Conjunctivae (R) Neck: Limited Range of Motion, Other (short thick full) Respiratory: Decreased Breath Sounds, Wheezing Cardiovascular: Tachycardia Gastrointestinal: Normal Bowel Sounds, Non Tender, Soft Rectal: Deferred Back: Normal Inspection Extremity: No Pedal Edema Neurologic/Psychiatric: Alert, Other (confused with a rambling speech) Skin: Pallor Results/Procedures Lab Laboratory Tests 05/02/17 05:50 Radiology portable chest x-ray per my exam this morning shows a right lower lobe infiltrate. Assessment/Plan Assessment and Plan Assess & Plan/Chief Complaint 1. Acute Hypotension due to Hjfbmafipnh-xjalgard-pt'll restart his beta alireza secondary to the tachycardia, monitor his blood pressure closely. 2. Acute Renal Insufficiency--resolved 3. Altered Mental Status--possibly secondary to hypercapnic respiratory failure we'll recheck his ABG 4. Chronic Back Pain--Recent Nerve Stimulator trial--ortho has been called to assess patient, there is no evidence of infection currently at the site 5. GERD--resume PPI 6. Chest Pain--Resolved-EKG this morning shows no evidence of acute process, only a sinus tachycardia 7. Abdominal Pain--resolved and CT scan of abdomen/pelvis negative for any acute process 8. Hospital acquired right lower lobe pneumonia with elevated white count of 19, 000. We'll begin vancomycin and cefepime. Blood cultures are negative. We'll recheck a ABG because of his increased confusion. Begin BiPAP as necessary. 9. underlying obstructive sleep apnea 10. DVT prophylaxis currently contraindicated secondary to recent removal of nerve stimulator per my understanding will check with orthopedic surgery as this patient is at high risk for DVT and pulmonary emboli SHANNAN RAMOS MD May 02, 2017 09:37
--- NOTE | 2017-05-02 09:37 | Diagnostic Imaging Report ---
CLINICAL INDICATION: Patient with hypoxia with increased WBC. EXAMINATION: Portable chest x-ray upright view. COMPARISON: Portable chest x-ray upright view dated 05/01/2017. FINDINGS: There is interval development of atelectasis in the right midlung field, right lung base. There is also minimal atelectasis in the left lung base. Cardiac silhouette is within upper limits of normal. Stable minimal prominent pulmonary vascular congestion. There is no pleural effusion or pneumothorax. Again seen right PICC line with tip in the cavoatrial junction. IMPRESSION: 1: Interval progression of bibasilar atelectasis. 2: Stable upper limits of normal heart size. 3: Stable minimal pulmonary vascular congestion. Dictated by: Dictated on workstation # [id number]
[2017-05-02] MEDS ORDERED: VANCOMYCIN INJECTION 1,750 MG in NS IV 500 ML 500 ML IV SCH (10:00)
[2017-05-02 10:17] LABS: ABG BASE EXCESS -5.4 MMOL/L (-2.5-2.5); ABG HCO3 18 MMOL/L (23-27); ABG OXYGEN SATURATION 98 % (94-100); ABG PCO2 29 MMHG (35-45); ABG PH 7.42 (7.37-7.43); ABG PO2 90 MMHG (79-93); ABG TCO2 19.2 MMOL/L (21.0-31.0)
[2017-05-02] MEDS: CEFEPIME INJECTION 2,000 MG in NS (IVPB) 50 ML IV SCH ×2 (10:25→20:15)
[2017-05-02] MEDS: ATENOLOL 25 MG (TENORMIN) TAB PO SCH ×2 (10:25→20:15)
[2017-05-02 10:34] LABS: ALLENS TEST YES-POS; PATIENT TEMP 98.2
[2017-05-02] MEDS ORDERED: FUROSEMIDE 40 MG/4 ML INJ (LASIX) IVP ONE (10:45)
--- NOTE | 2017-05-02 12:47 | Cardiology Progress Note ---
Cardiology SOAP Progress Note Subjective: No complaints Objective: I&O/Vital Signs Vital Sign - Last 12Hours 05/02/17 05/02/17 05/02/17 05/02/17 01:00 01:32 01:38 04:05 Temp 98.2 Pulse 111 104 104 119 Resp 32 22 B/P (MAP) 147/55 Pulse Ox 99 99 94 O2 Delivery Nasal Cannula O2 Flow Rate 28.00 2.00 FiO2 28 05/02/17 05/02/17 07:35 08:35 Temp 99.8 Pulse 116 Resp 22 B/P (MAP) 125/59 Pulse Ox 92 99 O2 Delivery Nasal Cannula Room Air O2 Flow Rate 2.00 Weight (Pounds): 260 Weight (Ounces): 0.0 Weight (Calculated Kilograms): 117.845960 Constitutional: other (Lethargic) Respiratory: wheezing, other (diminished bases bilat; fair air entry) Cardiovascular: regular rate-rhythm, No JVD, S1 and S2 Gastrointestional: No tender, soft, audible bowel sounds Genital/Rectal: other (Urinary catheter to DD with yellow urine) Extremities: no lower extremity edema bilateral Neurologic/Psychiatric: No cargo service agent II-XII nml as tested, No no motor/sensory deficits, No alert, No normal mood/affect, No oriented x 3, No abnormal cerebellar tests, No abnormal cargo service agent II-XII, No abnormal gait, No aphasia, No EOM palsy, No facial droop, No motor weakness, No sensory deficit, No depressed affect, No disoriented x 3, No grossly intact, No power is 5/5 both on sides Skin: No ulcerations Results/Procedures: Labs Laboratory Tests 05/02/17 05:50: White Blood Count 17.9H, Red Blood Count 3.55L, Hemoglobin 11.2L, Hematocrit 34L , Mean Corpuscular Volume 96, Mean Corpuscular Hemoglobin 32, Mean Corpuscular Hemoglobin Concent 33, Red Cell Distribution Width 12.9, Platelet Count 179, Mean Platelet Volume 10.2, Neutrophils (%) (Auto) 82H, Lymphocytes (%) (Auto) 6L , Monocytes (%) (Auto) 11, Eosinophils (%) (Auto) 0, Basophils (%) (Auto) 0, Neutrophils # (Auto) 14.8H, Lymphocytes # (Auto) 1.1, Monocytes # (Auto) 2.0H, Eosinophils # (Auto) 0.0, Basophils # (Auto) 0.0, Neutrophils % (Manual) 78, Lymphocytes % (Manual) 3, Monocytes % (Manual) 13, Eosinophils % (Manual) 0, Basophils % (Manual) 0, Band Neutrophils 4, Reactive Lymphocytes 2, Blood Morphology Comment NORMAL, Sodium Level 138, Potassium Level 3.9, Chloride Level 110H, Carbon Dioxide Level 19L, Anion Gap 9, Blood Urea Nitrogen 13, Creatinine 0.77, Estimat Glomerular Filtration Rate > 60, BUN/Creatinine Ratio 17, Glucose Level 100, Calcium Level 7.7L, Troponin I < 0.30, B-Type Natriuretic Peptide 582.9H 05/02/17 10:10: Blood Gas Puncture Site RT RADIAL, Blood Gas Patient Temperature 98.2, Arterial Blood pH 7.42, Arterial Blood Partial Pressure CO2 29L, Arterial Blood Partial Pressure O2 90, Arterial Blood HCO3 18L, Arterial Blood Total CO2 19.2L, Arterial Blood Oxygen Saturation 98, Arterial Blood Base Excess -5.4L, Esau Test YES-POS, Blood Gas Ventilator Setting NO, Blood Gas Inspired Oxygen 2 Microbiology 04/29/17 Blood Culture - Preliminary, Resulted No growth 04/29/17 MRSA Screen - Final, Complete MRSA not isolated A/P: Assessment/Dx: Shock, non-cardiac, etiology undetermined Transient coronary ischemia (without TX) due to shock on top of known moderate CAD, resolved Acute renal insufficiency - likely ATN d/t hypotension Confusion and lethargy of undetermined etiology - possibly d/t pain medications Removal of a spine stimulatory approx a week ago at [facility] There is at least moderate severity of aortoiliac and mesenteric atherosclerotic vascular disease per CT of 04-30-17 Coronary artery disease with a history of drug-eluting stenting of the left circumflex and obtuse marginal in November 2004. Left cardiac catheterization of May 2011 showed that the stents were patent and there was moderate disease of the coronary arteries. Left ventricular ejection fraction was 50-55 percent. LVEDP was elevated MPI of June 28, 2015 showed no evidence of significant myocardial ischemia or infarction. Normal regional wall motion. LVEF 72% Echo of 12/30/16: LVEF 50-55%, triv MR & TR, PASP 25-30 mmHg. 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 on MRI of October 2010 Hypertension Intolerance to SANGEETHA inhibitors because of cough Nonspecific intolerance to ezetimibe and also to statins, but currently able to take atorvastatin Degenerative joint disease Chronic low backache and bilateral sciatica Chronic obstructive pulmonary disease History of tobacco use from which he is now refraining History of prostate problems Chronic neuropathy involving both arms History of cervical spinal surgery several years ago Obesity with a body mass index of approximately 38.5 Osteoporosis and osteomalacia Sleep apnea being treated with CPAP, but studies of 2014, according to the patient, indicate resolution of sleep apnea. This is followed by Dr Flores No evidence of abdominal aortic aneurysm on abdominal aortic ultrasound of 12/10 Plan: Chest pain likely due to cardiac underperfusion due to shock (which is likely non-cardiac in origin). No evidence of myocardial injury (TX) since three sets of troponin negative. EKG improved, shock resolved - could be non-cardiac in origin (dehydration, epidural pain meds?). Continue aspirin, plavix. no further heparin required. I do not recommend cath urgently since patient also has acute on chronic kidney injury. May need either nuclear stress test or cath in the near future. Follow-up with Dr. Evans as an outpatient. Thank you for your consultation. Please call me if you have any questions. Mary Glez MD, FACP, FACC, FSCAI, FHRS, CCDS Interventional Cardiology Cardiac Electrophysiology Vascular Medicine and Endovascular Interventions Inga GLEZ MD May 02, 2017 12:47 pm
[2017-05-02] MEDS: ASPIRIN E.C. 81 MG (ECOTRIN) TAB PO SCH (14:06)
[2017-05-02] MEDS: ENOXAPARIN 40 MG/0.4 ML (LOVENOX) SYR SC SCH (14:06)
[2017-05-02] MEDS: VANCOMYCIN 1250 MG/NS 250 ML IVPB IV SCH ×2 (20:46)
[2017-05-03 04:00] VITALS: BP 135/65
[2017-05-03 05:42] LABS: BASOPHILS % (AUTO) 0 % (0-10); EOSINOPHILS # (AUTO) 0.1 10^3/uL (0.0-0.3); EOSINOPHILS % (AUTO) 1 % (0-10); LYMPHOCYTES # (AUTO) 1.3 X 10^3 (1.0-4.0); LYMPHOCYTES % (AUTO) 9 % (12-44); MEAN CORPUSCULAR HEMOGLOBIN 32 PG (25-34); MEAN CORPUSCULAR HGB CONC 33 G/DL (32-36); MEAN CORPUSCULAR VOLUME 97 FL (80-99); MONOCYTES # (AUTO) 1.4 X 10^3 (0.0-1.0); MONOCYTES % (AUTO) 10 % (0-12); NEUTROPHILS # (AUTO) 11.8 X 10^3 (1.8-7.8); NEUTROPHILS % (AUTO) 81 % (42-75); PLATELET COUNT 155 10^3/uL (130-400); RED CELL DISTRIBUTION WIDTH 12.7 % (10.0-14.5); WHITE BLOOD COUNT 14.6 10^3/uL (4.3-11.0)
[2017-05-03 06:09] LABS: ALANINE AMINOTRANSFERASE 19 U/L (0-55); ALBUMIN 2.6 GM/DL (3.2-4.5); ANION GAP 10 MMOL/L (5-14); ASPARTATE AMINO TRANSFERASE 46 U/L (5-34); BILIRUBIN,TOTAL 0.7 MG/DL (0.1-1.0); BLOOD UREA NITROGEN 11 MG/DL (7-18); BUN/CREATININE RATIO 16; CALCIUM 7.5 MG/DL (8.5-10.1); CARBON DIOXIDE 19 MMOL/L (21-32); CHLORIDE 109 MMOL/L (98-107); GFR ESTIMATED > 60; GLUCOSE 104 MG/DL (70-105); POTASSIUM 3.8 MMOL/L (3.6-5.0); SODIUM 138 MMOL/L (135-145); TOTAL PROTEIN 5.5 GM/DL (6.4-8.2)
[2017-05-03] MEDS: DEXLANSOPRAZOLE 60 MG PO SCH (06:16)
[2017-05-03] MEDS: RT-ALBUTEROL SULF 2.5 MG/3 ML PRE-MIX VIAL IH SCH ×2 (07:58→19:38)
[2017-05-03 08:35] VITALS: BP 146/79
[2017-05-03] MEDS: ATENOLOL 25 MG (TENORMIN) TAB PO SCH ×2 (08:49→20:42)
[2017-05-03] MEDS: ASPIRIN E.C. 81 MG (ECOTRIN) TAB PO SCH (08:49)
[2017-05-03] MEDS: DULoxetine 60 MG CAPSULE PO SCH ×2 (08:50→20:43)
[2017-05-03] MEDS: CEFEPIME INJECTION 2,000 MG in NS (IVPB) 50 ML IV SCH ×2 (08:51→20:42)
[2017-05-03] MEDS ORDERED: TROUGH ORDER-PHARMACY XX NR (09:00)
[2017-05-03] MEDS: PREGABALIN 100 MG (LYRICA) CAPSULE PO SCH ×2 (09:02→20:46)
--- NOTE | 2017-05-03 09:44 | Progress Note-Hospitalist ---
Subjective HPI/CC On Admission Date Seen by Provider: May 03, 2017 Time Seen by Provider: 09:10 Subjective/Events-last exam patient says he feels much better today. He is awake and alert. He is full assist in trying to get him to sit up but then he says once up he can walk with a walker or cane. He is much more oriented today and not confused. Review of Systems Neurological: Weakness Objective Exam Vital Signs Vital Sign - Last 12Hours 04/29/17 04/29/17 04/29/17 20:09 20:16 23:00 Temp 96.8 Pulse 54 Resp 14 B/P (MAP) 71/24 Pulse Ox 98 O2 Delivery Nasal Cannula O2 Flow Rate 2.00 FiO2 100 Capillary Refill : Less Than 3 SecondsLess Than 3 Seconds General Appearance: Chronically ill HEENT: Normal ENT Inspection Neck: Normal Inspection Respiratory: Crackles, Decreased Breath Sounds Cardiovascular: Regular Rate, Rhythm, No Gallop, No Murmur Gastrointestinal: Normal Bowel Sounds, Soft Rectal: Deferred Extremity: Non Tender, No Calf Tenderness, No Pedal Edema Neurologic/Psychiatric: Alert, Oriented x3 Skin: Pallor Results/Procedures Lab Laboratory Tests 05/03/17 05:30 Assessment/Plan Assessment and Plan Assess & Plan/Chief Complaint 1. Acute Hypotension due to Awnszbnavmx-mvogiuek-vt'll restart his beta alireza secondary to the tachycardia, Will restart his ARB today secondary to the increased blood pressure 2. Acute Renal Insufficiency--resolved 3. Altered Mental Status--most likely secondary to development of a pneumonia, no evidence of hypercapnic respiratory failure on his ABG yesterday. 4. Chronic Back Pain--Recent Nerve Stimulator trial--ortho has been called to assess patient, there is no evidence of infection currently at the site-have started DVT prophylaxis after checking with Dr. Eugene. 5. GERD--resume PPI 6. Chest Pain--Resolved-EKG this morning shows no evidence of acute process, only a sinus tachycardia 7. Abdominal Pain--resolved and CT scan of abdomen/pelvis negative for any acute process 8. Hospital acquired right lower lobe pneumonia with elevated white count of 19, 000. We'll begin vancomycin and cefepime. Blood cultures are negative. ABG was okay. Begin BiPAP as necessary. 9. underlying obstructive sleep apnea 10. DVT prophylaxis started yesterday after okay from Dr. Eugene 11. Mild fluid overload improved today with a BNP down to 320 SHANNAN RAMOS MD May 03, 2017 9:44 am
[2017-05-03] MEDS: LOSARTAN 50 MG (COZAAR) TAB PO SCH (10:51)
[2017-05-03] MEDS: VANCOMYCIN 1250 MG/NS 250 ML IVPB IV SCH ×4 (10:51→21:17)
[2017-05-03 12:00] VITALS: BP 133/68
[2017-05-03] MEDS: ENOXAPARIN 40 MG/0.4 ML (LOVENOX) SYR SC SCH (14:50)
[2017-05-03 16:41] VITALS: BP 139/64
[2017-05-03 19:35] VITALS: BP 147/67
[2017-05-03 23:55] VITALS: BP 144/66
[2017-05-04 03:45] VITALS: BP 152/67
[2017-05-04] MEDS: DEXLANSOPRAZOLE 60 MG PO SCH (06:02)
[2017-05-04] MEDS: RT-ALBUTEROL SULF 2.5 MG/3 ML PRE-MIX VIAL IH SCH ×2 (07:18→20:40)
[2017-05-04 08:00] VITALS: BP 164/72
[2017-05-04] MEDS: CEFEPIME INJECTION 2,000 MG in NS (IVPB) 50 ML IV SCH ×2 (08:57→20:34)
[2017-05-04] MEDS: ATENOLOL 25 MG (TENORMIN) TAB PO SCH ×2 (08:57→20:34)
[2017-05-04] MEDS: PREGABALIN 100 MG (LYRICA) CAPSULE PO SCH ×2 (08:57→20:34)
[2017-05-04] MEDS: LOSARTAN 50 MG (COZAAR) TAB PO SCH ×2 (08:57→20:34)
[2017-05-04] MEDS: ASPIRIN E.C. 81 MG (ECOTRIN) TAB PO SCH (08:57)
[2017-05-04] MEDS: DULoxetine 60 MG CAPSULE PO SCH ×2 (08:58→20:35)
[2017-05-04] MEDS: VANCOMYCIN 1250 MG/NS 250 ML IVPB IV SCH ×4 (09:30→21:07)
[2017-05-04 12:00] VITALS: BP 145/66
--- NOTE | 2017-05-04 12:43 | Progress Note (SOAP) ---
Subjective Date Seen by Provider: May 04, 2017 Time Seen by Provider: 12:40 Subjective/Events-last exam Fwup hypotension/dehydration, AMS, GERD, chronic back pain, hospital acquired pneumonia. C/O constipation and dysuria/urinary retention. Started back on BP meds yesterday due to elevated BP. Objective Exam Vital Signs Date Time Temp Pulse Resp B/P (MAP) Pulse Ox O2 Delivery O2 Flow Rate FiO2 05/04/17 08:00 97.7 82 18 164/72 99 Nasal Cannula 2.00 05/04/17 07:51 Nasal Cannula 3.00 05/04/17 07:18 98 Nasal Cannula 2.00 05/04/17 03:45 97.6 81 18 152/67 97 Nasal Cannula 2.00 05/04/17 01:00 87 05/03/17 23:55 97.4 98 20 144/66 96 Nasal Cannula 2.00 05/03/17 20:15 Nasal Cannula 2.00 05/03/17 19:38 Nasal Cannula 2.00 05/03/17 19:35 97.0 65 20 147/67 98 Nasal Cannula 2.00 05/03/17 19:00 85 05/03/17 16:41 97.1 81 20 139/64 99 Nasal Cannula 2.00 I & O 05/05/17 07:00 Intake Total 312.5 ml Balance 312.5 ml Capillary Refill : Less Than 3 SecondsLess Than 3 Seconds General Appearance: No Apparent Distress Neck: Supple Respiratory: Crackles (bases), Decreased Breath Sounds Cardiovascular: Regular Rate, Rhythm Gastrointestinal: normal bowel sounds, non tender, soft Extremity: Non Tender, No Calf Tenderness, No Pedal Edema Neurologic/Psychiatric: Alert, Oriented x3 Skin: Warm/Dry Results Lab Microbiology 04/29/17 Blood Culture - Preliminary, Resulted No growth 04/29/17 MRSA Screen - Final, Complete MRSA not isolated Assessment/Plan Assessment/Plan Assess & Plan/Chief Complaint 1. Acute Hypotension due to Dehydration--resolved, now back to hypertensive 2. Acute Renal Insufficiency--improved with hydration 3. Altered Mental Status--resolved 4. Chronic Back Pain--Recent Nerve Stimulator trial, back on lower dose hydrocodone 5. GERD--on PPI 6. Chest Pain--Resolved 7. Abdominal Pain/Constipation--add MOM and senokot 8. Hospital Acquired Pneumonia--continue abx and repeat WBC count and CXR in AM 9. Dysuria/Urinary Retention--check UA 10. HTN--back on atenolol and cozaar but will increase cozaar dose Clinical Quality Measures DVT/VTE Risk/Contraindication: Risk Factor Score Per Nursin RFS Level Per Nursing on Admit: 2=Moderate KENYETTA BALDWIN DO May 04, 2017 12:43
[2017-05-04] MEDS ORDERED: SENNA W/DOCUSATE (SENOKOT S) TABLET PO ONE (12:45)
[2017-05-04] MEDS ORDERED: MILK OF MAGNESIA 400 MG/5 ML 30 ML UDC PO NR (12:45)
[2017-05-04] MEDS ORDERED: SENNOSIDES 8.6 MG (SENOKOT) TAB ONE (12:58)
[2017-05-04] MEDS: ENOXAPARIN 40 MG/0.4 ML (LOVENOX) SYR SC SCH (13:07)
[2017-05-04 16:00] VITALS: BP 162/70
--- NOTE | 2017-05-04 19:13 | Diagnostic Imaging Report ---
EXAM: Two views of the chest are compared to a prior study from May 02, 2017. INDICATION: Pneumonia. FINDINGS: Aeration of the right lung base appears improved. There are small bilateral pleural effusions demonstrated on the lateral view. There is flattening of diaphragms compatible with air trapping and underlying COPD. Heart size is stable. Right PICC line, unchanged in position. There is no pneumothorax. IMPRESSION: 1. Improving basilar aeration with persistent bilateral pleural effusions. 2. Pulmonary hyperinflation and air trapping. 3. Enlarged cardiac silhouette without evidence of failure. Dictated by: Dictated on workstation # [id number]
[2017-05-04 20:00] VITALS: BP 162/67
[2017-05-04 21:00] LABS: KETONES,URINE 1+ (NEGATIVE); LEUKOCYTE ESTERASE ,URINE 3+ (NEGATIVE); NITRITE,URINE NEGATIVE (NEGATIVE); PH,URINE 6 (5-9); PROTEIN,URINE 2+ (NEGATIVE); UROBILINOGEN,URINE 4 MG/DL (NORMAL)
[2017-05-04 21:20] LABS: BILIRUBIN,URINE 1+ (NEGATIVE); WBC,URINE 25-50 /HPF
[2017-05-05] VITALS (7 sets, daily range): BP systolic 154–168; BP diastolic 70–82
[2017-05-05] MEDS: DEXLANSOPRAZOLE 60 MG PO SCH (06:06)
[2017-05-05] MEDS: RT-ALBUTEROL SULF 2.5 MG/3 ML PRE-MIX VIAL IH SCH ×2 (06:26→19:16)
[2017-05-05 06:30] LABS: BASOPHILS % (AUTO) 1 % (0-10); EOSINOPHILS # (AUTO) 0.2 10^3/uL (0.0-0.3); EOSINOPHILS % (AUTO) 4 % (0-10); LYMPHOCYTES # (AUTO) 1.1 X 10^3 (1.0-4.0); LYMPHOCYTES % (AUTO) 23 % (12-44); MEAN CORPUSCULAR HEMOGLOBIN 31 PG (25-34); MEAN CORPUSCULAR HGB CONC 33 G/DL (32-36); MEAN CORPUSCULAR VOLUME 97 FL (80-99); MEAN PLATELET VOLUME 9.5 FL (7.4-10.4); MONOCYTES % (AUTO) 19 % (0-12); NEUTROPHILS # (AUTO) 2.6 X 10^3 (1.8-7.8); NEUTROPHILS % (AUTO) 53 % (42-75); PLATELET COUNT 192 10^3/uL (130-400); RED BLOOD COUNT 3.41 10^6/uL (4.35-5.85); RED CELL DISTRIBUTION WIDTH 12.8 % (10.0-14.5); WHITE BLOOD COUNT 4.9 10^3/uL (4.3-11.0)
[2017-05-05 06:47] LABS: ANION GAP 11 MMOL/L (5-14); BLOOD UREA NITROGEN 6 MG/DL (7-18); BUN/CREATININE RATIO 9; CARBON DIOXIDE 22 MMOL/L (21-32); CHLORIDE 110 MMOL/L (98-107); CREATININE SERUM 0.68 MG/DL (0.60-1.30); GFR ESTIMATED > 60; GLUCOSE 105 MG/DL (70-105); POTASSIUM 3.6 MMOL/L (3.6-5.0); SODIUM 143 MMOL/L (135-145)
[2017-05-05] MEDS: ASPIRIN E.C. 81 MG (ECOTRIN) TAB PO SCH (08:38)
[2017-05-05] MEDS: ATENOLOL 25 MG (TENORMIN) TAB PO SCH (08:38)
[2017-05-05] MEDS: LOSARTAN 50 MG (COZAAR) TAB PO SCH ×2 (08:38→20:38)
[2017-05-05] MEDS: DULoxetine 60 MG CAPSULE PO SCH ×2 (08:38→20:39)
[2017-05-05] MEDS: CATHETER FLUSH 10 ML SYR IV PRN ×4 (08:39→17:34)
[2017-05-05] MEDS: CEFEPIME INJECTION 2,000 MG in NS (IVPB) 50 ML IV SCH ×2 (08:39→20:38)
[2017-05-05] MEDS: PREGABALIN 100 MG (LYRICA) CAPSULE PO SCH ×2 (08:40→20:38)
[2017-05-05] MEDS: VANCOMYCIN 1250 MG/NS 250 ML IVPB IV SCH ×4 (09:19→21:26)
--- NOTE | 2017-05-05 10:40 | Progress Note-Cardiology ---
Cardiology SOAP Progress Note Subjective: Sitting up in bed with family x2 at the bedside. No c/o CP, palpitations, syncope or near syncope. C/O dyspnea. C/O expiratory wheezing. Objective: I&O/Vital Signs Vital Sign - Last 12Hours 05/05/17 05/05/17 05/05/17 05/05/17 00:00 01:00 04:00 06:26 Temp 97.3 98.4 Pulse 83 75 92 Resp 19 18 B/P (MAP) 160/71 168/82 Pulse Ox 96 97 98 O2 Delivery Nasal Cannula Nasal Cannula Nasal Cannula O2 Flow Rate 2.00 2.00 2.00 05/05/17 05/05/17 05/05/17 07:30 08:00 09:31 Temp 97.6 Pulse 80 92 Resp 20 B/P (MAP) 157/79 Pulse Ox 97 97 O2 Delivery Nasal Cannula Nasal Cannula O2 Flow Rate 2.00 2.00 FiO2 18 Weight (Pounds): 256 Weight (Ounces): 7.4 Weight (Calculated Kilograms): 116.545202 Constitutional: AAO x 3 Respiratory: wheezing (expiratoery wheezes) Cardiovascular: regular rate-rhythm, No JVD, S1 and S2 Gastrointestional: No tender, soft, audible bowel sounds Extremities: no lower extremity edema bilateral Neurologic/Psychiatric: grossly intact Skin: No ulcerations Results/Procedures: Labs Laboratory Tests 05/04/17 20:35: Urine Color YELLOW, Urine Clarity SLIGHTLY CLOUDY, Urine pH 6, Urine Specific [place] 1.020, Urine Protein 2+H, Urine Glucose (UA) NEGATIVE, Urine Ketones 1+H , Urine Nitrite NEGATIVE, Urine Bilirubin 1+H, Urine Urobilinogen 4H, Urine Leukocyte Esterase 3+H, Urine RBC (Auto) 3+H, Urine RBC 2-5H, Urine WBC 25-50H, Urine Squamous Epithelial Cells 5-10, Urine Crystals NONE, Urine Bacteria NEGATIVE, Urine Casts NONE, Urine Mucus NEGATIVE, Urine Other FEW SPERMH, Urine Culture Indicated YES 05/05/17 06:21: White Blood Count 4.9, Red Blood Count 3.41L, Hemoglobin 10.7L, Hematocrit 33L, Mean Corpuscular Volume 97, Mean Corpuscular Hemoglobin 31, Mean Corpuscular Hemoglobin Concent 33, Red Cell Distribution Width 12.8, Platelet Count 192, Mean Platelet Volume 9.5, Neutrophils (%) (Auto) 53, Lymphocytes (%) (Auto) 23, Monocytes (%) (Auto) 19H, Eosinophils (%) (Auto) 4, Basophils (%) (Auto) 1, Neutrophils # (Auto) 2.6, Lymphocytes # (Auto) 1.1, Monocytes # (Auto) 1.0, Eosinophils # (Auto) 0.2, Basophils # (Auto) 0.0, Sodium Level 143, Potassium Level 3.6, Chloride Level 110H, Carbon Dioxide Level 22, Anion Gap 11, Blood Urea Nitrogen 6L, Creatinine 0.68, Estimat Glomerular Filtration Rate > 60, BUN/ Creatinine Ratio 9, Glucose Level 105, Calcium Level 8.0L Microbiology 04/29/17 Blood Culture - Preliminary, Resulted No growth 04/29/17 MRSA Screen - Final, Complete MRSA not isolated Procedures NAME: STEPHANY TIJERINA [facility] REC#: [id number] PT STATUS: ADM IN : 1940 PHYSICIAN: KENYETTA BALDWIN DO ADMIT DATE: 04/29/17 Signed Date of Exam: 05/04/17 CHEST PA/LAT (2 VIEW) EXAM: Two views of the chest are compared to a prior study from May 02, 2017. INDICATION: Pneumonia. FINDINGS: Aeration of the right lung base appears improved. There are small bilateral pleural effusions demonstrated on the lateral view. There is flattening of diaphragms compatible with air trapping and underlying COPD. Heart size is stable. Right PICC line, unchanged in position. There is no pneumothorax. IMPRESSION: 1. Improving basilar aeration with persistent bilateral pleural effusions. 2. Pulmonary hyperinflation and air trapping. 3. Enlarged cardiac silhouette without evidence of failure. Dictated by: Dictated on workstation # [id number] Dict: 05/04/171851 Trans: 05/04/171930 Interpreted by: CLARITA MERRITT MD Electronically signed by: CLARITA MERRITT MD 05/04/171930 A/P: Assessment: Shock, non-cardiac, etiology undetermined - resolved Transient coronary ischemia (without PR) due to shock on top of known moderate CAD, now resolved with improvement of bp Acute renal insufficiency - likely ATN d/t hypotension - improved Confusion and lethargy of undetermined etiology - possibly d/t pain medications - resolved Removal of a spine stimulatory approx a week ago [facility] There is at least moderate severity of aortoiliac and mesenteric atherosclerotic vascular disease per CT of 04-30-17 Coronary artery disease with a history of drug-eluting stenting of the left circumflex and obtuse marginal in November 2004. Left cardiac catheterization of May 2011 showed that the stents were patent and there was moderate disease of the coronary arteries. Left ventricular ejection fraction was 50-55 percent. LVEDP was elevated MPI of June 28, 2015 showed no evidence of significant myocardial ischemia or infarction. Normal regional wall motion. LVEF 72% Echo of 12/30/16: LVEF 50-55%, triv MR & TR, PASP 25-30 mmHg. 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 on MRI of October 2010 Hypertension Intolerance to SANGEETHA inhibitors because of cough Nonspecific intolerance to ezetimibe and also to statins, but currently able to take atorvastatin Degenerative joint disease Chronic low backache and bilateral sciatica Chronic obstructive pulmonary disease History of tobacco use from which he is now refraining History of prostate problems Chronic neuropathy involving both arms History of cervical spinal surgery several years ago Obesity with a body mass index of approximately 38.5 Osteoporosis and osteomalacia Sleep apnea being treated with CPAP, but studies of 2014, according to the patient, indicate resolution of sleep apnea. This is followed by Dr Flores No evidence of abdominal aortic aneurysm on abdominal aortic ultrasound of 12/10 Plan: BP not well controlled - will increase Atenolol dose to 50mg BID Pt and family requesting pulmonology consult with Dr. Quiros Monitor labs Physician Assessment Physician Assessment Lungs: fair air entry, prolonged exp, exp wheezes Cor: reg Ext: no c/c/e A&R * As documented in our note above that I updated (italics) and as noted below * Conservative cardiac management * Ok to discharge from cardiac standpoint * I discussed his CV issue with him and his and answered questions * He requests that Dr Quiros see him regarding CPAP for sleep apnea ERICK NASH [facility] May 05, 2017 10:39 JIM SPARROW MD [facility] May 05, 2017 11:47
[2017-05-05] MEDS ORDERED: ATENOLOL 25 MG (TENORMIN) TAB PO NR (10:45)
--- NOTE | 2017-05-05 12:30 | Progress Note (SOAP) ---
Subjective Date Seen by Provider: May 05, 2017 Time Seen by Provider: 12:28 Subjective/Events-last exam Fwup hypotension/dehydration, AMS, GERD, chronic back pain, hospital acquired pneumonia. Had BM yesterday. C/O short of air/wheezy today. Objective Exam Vital Signs Date Time Temp Pulse Resp B/P (MAP) Pulse Ox O2 Delivery O2 Flow Rate FiO2 05/05/17 11:54 97 Nasal Cannula 2.00 05/05/17 09:31 92 97 18 05/05/17 08:00 97.6 80 20 157/79 97 Nasal Cannula 2.00 05/05/17 07:30 Nasal Cannula 2.00 05/05/17 06:26 98 Nasal Cannula 2.00 05/05/17 04:00 98.4 92 18 168/82 97 Nasal Cannula 2.00 05/05/17 01:00 75 05/05/17 00:00 97.3 83 19 160/71 96 Nasal Cannula 2.00 05/04/17 21:00 Nasal Cannula 2.00 05/04/17 20:42 96 Nasal Cannula 2.00 05/04/17 20:00 98.7 86 18 162/67 99 Nasal Cannula 2.00 05/04/17 19:00 65 05/04/17 16:00 98.6 76 18 162/70 98 Nasal Cannula 2.00 Capillary Refill : Less Than 3 SecondsLess Than 3 Seconds General Appearance: No Apparent Distress Neck: Supple Respiratory: Decreased Breath Sounds, Wheezing (bases) Cardiovascular: Regular Rate, Rhythm, Systolic Murmur, Gallop/S4 Gastrointestinal: normal bowel sounds, non tender, soft Extremity: Non Tender, No Calf Tenderness, No Pedal Edema Neurologic/Psychiatric: Alert, Oriented x3 Results Lab Laboratory Tests 05/04/17 20:35: Urine Color YELLOW, Urine Clarity SLIGHTLY CLOUDY, Urine pH 6, Urine Specific [place] 1.020, Urine Protein 2+H, Urine Glucose (UA) NEGATIVE, Urine Ketones 1+H , Urine Nitrite NEGATIVE, Urine Bilirubin 1+H, Urine Urobilinogen 4H, Urine Leukocyte Esterase 3+H, Urine RBC (Auto) 3+H, Urine RBC 2-5H, Urine WBC 25-50H, Urine Squamous Epithelial Cells 5-10, Urine Crystals NONE, Urine Bacteria NEGATIVE, Urine Casts NONE, Urine Mucus NEGATIVE, Urine Other FEW SPERMH, Urine Culture Indicated YES 05/05/17 06:21: White Blood Count 4.9, Red Blood Count 3.41L, Hemoglobin 10.7L, Hematocrit 33L, Mean Corpuscular Volume 97, Mean Corpuscular Hemoglobin 31, Mean Corpuscular Hemoglobin Concent 33, Red Cell Distribution Width 12.8, Platelet Count 192, Mean Platelet Volume 9.5, Neutrophils (%) (Auto) 53, Lymphocytes (%) (Auto) 23, Monocytes (%) (Auto) 19H, Eosinophils (%) (Auto) 4, Basophils (%) (Auto) 1, Neutrophils # (Auto) 2.6, Lymphocytes # (Auto) 1.1, Monocytes # (Auto) 1.0, Eosinophils # (Auto) 0.2, Basophils # (Auto) 0.0, Sodium Level 143, Potassium Level 3.6, Chloride Level 110H, Carbon Dioxide Level 22, Anion Gap 11, Blood Urea Nitrogen 6L, Creatinine 0.68, Estimat Glomerular Filtration Rate > 60, BUN/ Creatinine Ratio 9, Glucose Level 105, Calcium Level 8.0L Microbiology 04/29/17 Blood Culture - Preliminary, Resulted No growth 04/29/17 MRSA Screen - Final, Complete MRSA not isolated Assessment/Plan Assessment/Plan Assess & Plan/Chief Complaint 1. Acute Hypotension due to Dehydration--resolved, now back to hypertensive 2. Acute Renal Insufficiency--improved with hydration 3. Altered Mental Status--resolved 4. Chronic Back Pain--Recent Nerve Stimulator trial, back on lower dose hydrocodone 5. GERD--on PPI 6. Chest Pain--Resolved 7. Abdominal Pain/Constipation--improved after MOM and senokot 8. Hospital Acquired Pneumonia--improving but will add spiriva and solumedrol due to wheezing and shortness of air 9. Dysuria/Urinary Retention--looks like UTI--await urine culture 10. HTN--back on atenolol and cozaar but will increase cozaar dose Clinical Quality Measures DVT/VTE Risk/Contraindication: Risk Factor Score Per Nursin RFS Level Per Nursing on Admit: 2=Moderate KENYETTA BALDWIN DO May 05, 2017 12:30
[2017-05-05] MEDS: methylPREDNISolone 40 MG/ML (Solu-MEDROL) VIAL IV SCH ×3 (12:45→23:20)
--- NOTE | 2017-05-05 13:10 | Pulmonary Progress Note ---
Subjective Time Seen by Provider: 13:14 Subjective/Events-last exam PT feels more SOB. Exam Exam Vital Signs Date Time Temp Pulse Resp B/P (MAP) Pulse Ox O2 Delivery O2 Flow Rate FiO2 05/05/17 11:54 97 Nasal Cannula 2.00 05/05/17 09:31 92 97 18 05/05/17 08:00 97.6 80 20 157/79 97 Nasal Cannula 2.00 05/05/17 07:30 Nasal Cannula 2.00 05/05/17 06:26 98 Nasal Cannula 2.00 05/05/17 04:00 98.4 92 18 168/82 97 Nasal Cannula 2.00 05/05/17 01:00 75 05/05/17 00:00 97.3 83 19 160/71 96 Nasal Cannula 2.00 05/04/17 21:00 Nasal Cannula 2.00 05/04/17 20:42 96 Nasal Cannula 2.00 05/04/17 20:00 98.7 86 18 162/67 99 Nasal Cannula 2.00 05/04/17 19:00 65 05/04/17 16:00 98.6 76 18 162/70 98 Nasal Cannula 2.00 General Appearance: No Apparent Distress HEENT: Normal ENT Inspection Neck: Supple Respiratory: Decreased Breath Sounds, Wheezing (bases) Cardiovascular: Regular Rate, Rhythm, Systolic Murmur, Gallop/S4 Capillary Refill: Less Than 3 Seconds Gastrointestinal: normal bowel sounds, non tender, soft Extremity: Non Tender, No Calf Tenderness, No Pedal Edema Neurologic/Psychiatric: Alert, Oriented x3 Skin: Warm/Dry Lymphatic: No Adenopathy Results Lab Laboratory Tests 05/05/17 06:21 Assessment/Plan Assessment/Plan Pneumonia [facility] acute bronchitits -Solumedrol was added -Currently on vanco, cefepime -Cultures are negative S/P acute hypotension secondary to dehydration - now resolved MS changes - now improved PUlmoamry edema with increased SOB BNP is 324 -Lasix 40mg IV X 1 ACE -CPAP therapy -- pt needs a new machine. Will have him do a PSG as out patient in the lab so we can get him a new machine. PT will probably need oxygen with his CPAP vs BiPAP machine Abdominal pain -CT of abdomen reviewed Morbid obesity pt will need oxygen desaturation testing prior to discharge. 232 Clinical Quality Measures DVT/VTE Risk/Contraindication: Risk Factor Score Per Nursin RFS Level Per Nursing on Admit: 2=Moderate OTONIEL BURGER DO May 05, 2017 13:10
[2017-05-05] MEDS ORDERED: FUROSEMIDE 40 MG/4 ML INJ (LASIX) IVP NR (13:15)
[2017-05-05] MEDS: ENOXAPARIN 40 MG/0.4 ML (LOVENOX) SYR SC SCH (14:19)
[2017-05-05] MEDS: UMECLIDINIUM BROMIDE (INCRUSE ELLIPTA) 7'S IH SCH (14:36)
[2017-05-05] MEDS: ATENOLOL 50 MG (TENORMIN) TAB PO SCH (20:38)
[2017-05-06] VITALS: BP 169/73
[2017-05-06 04:00] VITALS: BP 162/72
[2017-05-06] MEDS: methylPREDNISolone 40 MG/ML (Solu-MEDROL) VIAL IV SCH ×2 (06:15→11:55)
[2017-05-06] MEDS: DEXLANSOPRAZOLE 60 MG PO SCH (06:16)
[2017-05-06 06:30] LABS: ANION GAP 10 MMOL/L (5-14); BLOOD UREA NITROGEN 11 MG/DL (7-18); BUN/CREATININE RATIO 15; CALCIUM 8.2 MG/DL (8.5-10.1); CARBON DIOXIDE 24 MMOL/L (21-32); CHLORIDE 109 MMOL/L (98-107); CREATININE SERUM 0.71 MG/DL (0.60-1.30); GFR ESTIMATED > 60; GLUCOSE 143 MG/DL (70-105); POTASSIUM 3.9 MMOL/L (3.6-5.0); SODIUM 143 MMOL/L (135-145)
[2017-05-06] MEDS: UMECLIDINIUM BROMIDE (INCRUSE ELLIPTA) 7'S IH SCH (07:16)
[2017-05-06] MEDS: RT-ALBUTEROL SULF 2.5 MG/3 ML PRE-MIX VIAL IH SCH (07:16)
[2017-05-06 08:07] VITALS: BP 158/68
[2017-05-06] MEDS: CEFEPIME INJECTION 2,000 MG in NS (IVPB) 50 ML IV SCH (09:31)
[2017-05-06] MEDS: CATHETER FLUSH 10 ML SYR IV PRN ×3 (09:31→11:55)
[2017-05-06] MEDS: ATENOLOL 50 MG (TENORMIN) TAB PO SCH (09:31)
[2017-05-06] MEDS: LOSARTAN 50 MG (COZAAR) TAB PO SCH (09:32)
[2017-05-06] MEDS: DULoxetine 60 MG CAPSULE PO SCH (09:32)
[2017-05-06] MEDS: ASPIRIN E.C. 81 MG (ECOTRIN) TAB PO SCH (09:33)
[2017-05-06] MEDS: PREGABALIN 100 MG (LYRICA) CAPSULE PO SCH (09:34)
[2017-05-06] MEDS: VANCOMYCIN 1250 MG/NS 250 ML IVPB IV SCH ×2 (10:11)
--- NOTE | 2017-05-06 12:07 | Pulmonary Progress Note ---
Subjective Time Seen by Provider: 08:15 Subjective/Events-last exam No complications noted. Pt has no complaints. Exam Exam Vital Signs Date Time Temp Pulse Resp B/P (MAP) Pulse Ox O2 Delivery O2 Flow Rate FiO2 05/06/17 11:23 96 2.00 05/06/17 08:07 96.8 63 20 158/68 96 Nasal Cannula 2.00 05/06/17 08:00 Nasal Cannula 2.00 05/06/17 07:16 96 Nasal Cannula 1.50 05/06/17 04:00 96.8 64 16 162/72 97 Nasal Cannula 2.50 05/06/17 01:00 64 05/06/17 00:00 97.4 61 20 169/73 96 Nasal Cannula 2.50 05/05/17 21:00 Nasal Cannula 2.00 05/05/17 19:32 99.6 67 19 157/73 95 Nasal Cannula 2.00 05/05/17 19:16 95 Nasal Cannula 1.50 05/05/17 19:00 66 05/05/17 16:16 100.3 69 18 154/70 100 Nasal Cannula 2.00 General Appearance: No Apparent Distress HEENT: Normal ENT Inspection Neck: Supple Respiratory: Decreased Breath Sounds, Wheezing (bases) Cardiovascular: Regular Rate, Rhythm, Systolic Murmur, Gallop/S4 Capillary Refill: Less Than 3 Seconds Gastrointestinal: normal bowel sounds, non tender, soft Extremity: Non Tender, No Calf Tenderness, No Pedal Edema Neurologic/Psychiatric: Alert, Oriented x3 Skin: Warm/Dry Lymphatic: No Adenopathy Results Lab Laboratory Tests 05/05/17 06:21 05/06/17 05:25 Assessment/Plan Assessment/Plan Pneumonia [facility] acute bronchitits -Solumedrol -Currently on vanco, cefepime -Cultures are negative S/P acute hypotension secondary to dehydration - now resolved MS changes - now improved PUlmoamry edema with increased SOB BNP is 324 -Lasix 40mg IV X 1 ACE -CPAP therapy -- pt needs a new machine. Will have him do a PSG as out patient in the lab so we can get him a new machine. PT will probably need oxygen with his CPAP vs BiPAP machine Abdominal pain -CT of abdomen reviewed Morbid obesity pt will need oxygen desaturation testing prior to discharge. 232 Clinical Quality Measures DVT/VTE Risk/Contraindication: Risk Factor Score Per Nursin RFS Level Per Nursing on Admit: 2=Moderate OTONIEL BURGER DO May 06, 2017 12:07
[2017-05-06 12:47] VITALS: BP 155/65
[2017-05-06] MEDS: ENOXAPARIN 40 MG/0.4 ML (LOVENOX) SYR SC SCH (13:04)
[2017-05-06] MEDS ORDERED: HYDR-3816 PO (13:06)
[2017-05-06] MEDS ORDERED: CEFD300C3 PO (13:06)
[2017-05-06] MEDS ORDERED: ATEN50TA PO (13:06)
[2017-05-06] MEDS ORDERED: PRD20T PO (13:06)
--- NOTE | 2017-05-06 13:10 | Discharge Inst-Simple/Standard ---
Discharge Inst-Standard Discharge Medications New, Converted or Re-Newed RX: Transmitted to Pharmacy Patient Instructions/Follow Up Plan of Care/Instructions/FU: Fwup with Dr. Quiros tomorrow Dr. Evans in [address] Piper in 2weeks Activity as Tolerated: Yes Discharge Diet: Cardiac Diet Planned Outpatient Orders/Ref. Home oxygen use KENYETTA PIPER DO May 06, 2017 1:10 pm
[2017-05-06 15:18] VITALS: BP 155/65
--- NOTE | 2017-05-06 17:57 | Progress Note-Cardiology ---
Cardiology SOAP Progress Note Subjective: Shortness of breath better today. No cp or palp or syncope. Wishes to go home Objective: I&O/Vital Signs Vital Sign - Last 12Hours 05/06/17 05/06/17 05/06/17 05/06/17 07:16 08:00 08:07 11:23 Temp 96.8 Pulse 63 Resp 20 B/P (MAP) 158/68 Pulse Ox 96 96 96 O2 Delivery Nasal Cannula Nasal Cannula Nasal Cannula O2 Flow Rate 1.50 2.00 2.00 2.00 05/06/17 05/06/17 12:47 15:18 Temp 97.8 Pulse 67 67 Resp 20 20 B/P (MAP) 155/65 155/65 Pulse Ox 95 95 O2 Delivery Nasal Cannula Nasal Cannula O2 Flow Rate 3.00 2.00 FiO2 100 Intake and Output 05/07/17 00:00 Intake Total 750 ml Output Total 275 ml Balance 475 ml Weight (Pounds): 253 Weight (Ounces): 3.0 Weight (Calculated Kilograms): 114.416353 Constitutional: AAO x 3 Respiratory: wheezing (expiratoery wheezes) Cardiovascular: regular rate-rhythm, No JVD, S1 and S2 Gastrointestional: No tender, soft, audible bowel sounds Extremities: no lower extremity edema bilateral Neurologic/Psychiatric: grossly intact Skin: No ulcerations Results/Procedures: Labs Laboratory Tests 05/06/17 05:25: Sodium Level 143, Potassium Level 3.9, Chloride Level 109H, Carbon Dioxide Level 24, Anion Gap 10, Blood Urea Nitrogen 11, Creatinine 0.71, Estimat Glomerular Filtration Rate > 60, BUN/Creatinine Ratio 15, Glucose Level 143H, Calcium Level 8.2L Microbiology 04/29/17 Blood Culture - Final, Complete No growth 04/29/17 MRSA Screen - Final, Complete MRSA not isolated 05/04/17 Urine Culture - Final, Complete NO GROWTH A/P: Assessment: Shock, non-cardiac, etiology undetermined - resolved Transient coronary ischemia (without CT) due to shock on top of known moderate CAD, now resolved with improvement of bp Acute renal insufficiency - likely ATN d/t hypotension - improved Confusion and lethargy of undetermined etiology - possibly d/t pain medications - resolved Removal of a spine stimulatory approx a week ago at [facility] There is at least moderate severity of aortoiliac and mesenteric atherosclerotic vascular disease per CT of 04-30-17 Coronary artery disease with a history of drug-eluting stenting of the left circumflex and obtuse marginal in November 2004. Left cardiac catheterization of May 2011 showed that the stents were patent and there was moderate disease of the coronary arteries. Left ventricular ejection fraction was 50-55 percent. LVEDP was elevated MPI of June 28, 2015 showed no evidence of significant myocardial ischemia or infarction. Normal regional wall motion. LVEF 72% Echo of 12/30/16: LVEF 50-55%, triv MR & TR, PASP 25-30 mmHg. 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 on MRI of October 2010 Hypertension Intolerance to SANGEETHA inhibitors because of cough Nonspecific intolerance to ezetimibe and also to statins, but currently able to take atorvastatin Degenerative joint disease Chronic low backache and bilateral sciatica Chronic obstructive pulmonary disease History of tobacco use from which he is now refraining History of prostate problems Chronic neuropathy involving both arms History of cervical spinal surgery several years ago Obesity with a body mass index of approximately 38.5 Osteoporosis and osteomalacia Sleep apnea being treated with CPAP, but studies of 2014, according to the patient, indicate resolution of sleep apnea. This is followed by Dr Flores No evidence of abdominal aortic aneurysm on abdominal aortic ultrasound of 12/10 Plan: I discussed his case in detail with Dr Quiros of pulm services today We recommend continuing conservative cardiac management We recommend close outpatient card f/y [facility]IM SPARROW MD [facility] May 06, 2017 17:57
--- NOTE | 2017-05-08 10:53 | Physician Query Clarification ---
PQ-Conflicting Diagnosis Admission/Discharge Admission Date: Apr 29, 2017 at 22:07 Discharge Date: May 06, 2017 at 15:23 The medical record reflects the following clinical scenario: History/Risk Factors: Dehydration Hypotension Clinical Findings: Blood pressure readings of 71/24, 64/26 on admission Treatment: IV fluids 1,000ml@0mls/hr wide open, IV Dopamine HCI/Dextrose Question: Do you agree with the impression of Shock, non-cardiac per Dr. Otoole and Dr. Evans consult and progress notes? Please document a response below. PHYSICIAN RESPONSE Do you agree w/Consulting Dx?: Yes In responding to this query, please exercise your independent professional judgment. The purpose of this communication is to more accurately reflect the complexity of your patients condition. The fact that a question is asked does not imply that any particular answer is desired or expected. Thank you for your timely response to this clarification. Requestors name: Ritu Nava [facility] Phone # ext [phone] or [phone] THIS PHYSICIAN QUERY FORM IS A PERMANENT PART OF THE MEDICAL RECORD RITU NAVA May 08, 2017 10:53 KEYNETTA BALDWIN DO May 12, 2017 15:10
--- NOTE | 2017-05-08 11:11 | Physician Query Clarification ---
PQ-Conflicting Diagnosis Admission/Discharge Admission Date: Apr 29, 2017 at 22:07 Discharge Date: May 06, 2017 at 15:23 The medical record reflects the following clinical scenario: History/Risk Factors: Dehydration Hypotension Clinical Findings: BUN 27, Creatinine 1.22 and 1.37, eGFR 58. Treatment: IV Sodium Chloride 1,000ml@0 mls/hr wide open, IV Lactated Ringer's 1,000ml@0mls /hr wide open IV Dopamine HCI/Dextrose 250 ml@0mls/hr protocol Question: Do you agree with the impression of "likely acute tubular necrosis per Dr. Otoole and Dr. Evans consult/progress notes? Please document a response below. PHYSICIAN RESPONSE Do you agree w/Consulting Dx?: No In responding to this query, please exercise your independent professional judgment. The purpose of this communication is to more accurately reflect the complexity of your patients condition. The fact that a question is asked does not imply that any particular answer is desired or expected. Thank you for your timely response to this clarification. Requestors name: Ritu Nava [facility] Phone # ext [phone] or [phone] THIS PHYSICIAN QUERY FORM IS A PERMANENT PART OF THE MEDICAL RECORD RITU NAVA May 08, 2017 11:11 KENYETTA BALDWIN DO May 12, 2017 15:10
--- NOTE | 2017-05-12 20:15 | Discharge Summary ---
Diagnosis/Chief Complaint Date of Admission Apr 29, 2017 at 22:07 Date of Discharge May 06, 2017 at 15:23 Discharge Date: May 06, 2017 Admission Diagnosis Admission Diagnosis 1. Acute Hypotension due to Dehydration--admit and hydrate and monitor BP 2. Acute Renal Insufficiency--monitor Cr with hydration 3. Altered Mental Status--on BIPAP, likely from fentanyl and morphine 4. Chronic Back Pain with recent removal of nerve stimulator--cultures pending 5. Chest Pain with EKG changes--cardiology consulted Discharge Diagnosis 1. Acute Hypotension/Noncardiac Shock due to Dehydration--resolved 2. Acute Renal Insufficiency due to Dehydration--resolved 3. Altered Mental Status--likely from pain medications 4. Chronic Back Pain with recent removal of nerve stimulator--stable 5. Chest Pain with EKG changes--known CAD but no evidence of acute coronary syndrome 6. Hospital Acquired Pneumonia--resolved 7. Exacerbation of COPD--improved 8. Pulmonary Edema--improved 9. Hypertension--stable, back on home meds 10. GERD--improved Reason Hospital Visit This is a 76 year old male who was brought to the emergency room with weakness and lethargy. He has a history of chronic back pain and had a nerve stimulator removed 2 days prior. Upon examination in the emergency room he was complaining of severe epigastric pain as well as chest pain and did have new EKG changes. He was given morphine and fentanyl and then had lethargy and did require placement on BIPAP and admission to the ICU. He was found to be dehydrated with hypotension as well as acute renal insufficiency. He will be admitted to the ICU with both cardiology and pulmonology consult. Discharge Summary Hospital Course Hospital Course This is a 76 year old male who was brought to the emergency room with weakness and lethargy. He has a history of chronic back pain and had a nerve stimulator removed 2 days prior. Upon examination in the emergency room he was complaining of severe epigastric pain as well as chest pain and did have new EKG changes. He was given morphine and fentanyl and then had lethargy and did require placement on BIPAP and admission to the ICU. He was found to be dehydrated with hypotensive noncardiogenic shock as well as acute renal insufficiency. He was admitted to the ICU with both cardiology and pulmonology consult. The EKG changes were felt to be related to his noncardiogenic shock and there was no evidence of an acute coronary syndrome. He was able to be taken off of the BIPAP by the following hospital day once he was less lethargic and more alert. He did have to be placed on dopamine for his hypotension but was weaned off of this during his second hospital day and continued on IVFs. He was able to be transferred to the medical floor but the following day developed cough, fever, elevated WBC and new infiltrates on CXR. He was started on IV vancomycin and cefepime. His WBC count improved to 4.9 the day prior to discharge and his CXR showed resolution of his infiltrates. He did have exacerbation of his COPD requiring IV solumedrol but his wheezing was resolved after 24hrs of the solumedrol. His initial creatinine was 1.22 with a high of 1.37 on hospital day #2 and was down to 0.71 by discharge. He had to be restarted on his home blood pressure medications due to elevated blood pressure prior to discharge. He was also restarted on his home hydrocodone for pain but the dose was reduced to 1/2 tablet. By the time of discharge, he was awake, alert and afebrile. He had no cough or wheezing and had been up ambulating with no shortness of air. It was decided that he could be discharged home on oral prednisone and oral antibiotics and he will followup with pulmonology tomorrow. He will followup in my office in 1week and with cardiology in 2 weeks. Procedures None. Discharge Physical Examination Allergies: Coded Allergies: Sulfa (Sulfonamide Antibiotics) (Verified Allergy, Unknown, 08/20/15) Vitals & I&Os Vital Signs Date Time Temp Pulse Resp B/P (MAP) Pulse Ox O2 Delivery O2 Flow Rate FiO2 05/06/17 15:18 67 20 155/65 95 Nasal Cannula 2.00 100 05/06/17 12:47 97.8 General Appearance: Alert, Oriented X3, No Acute Distress Respiratory: Clear to Auscultation Cardiovascular: Regular Rate Abdominal: Normal Bowel Sounds, Soft, No Tenderness Extremities: No Clubbing, No Cyanosis, No Edema Psych/Mental Status: Mental Status NL Discharge Home Medications Reviewed and agree with Discharge Medication list on patient's Discharge Instruction sheet Instructions to Patient/Family Please see electronic discharge instructions given to patient. Clinical Quality Measures DVT/VTE Risk/Contraindication: Risk Factor Score Per Nursin RFS Level Per Nursing on Admit: 2=Moderate ORENDER,KENYETTA S DO May 12, 2017 20:15
== END 2017-05-06 15:23 | disposition home or self-care (01) | DRG 314 ==
LOC: EDUNIT# 19:43 → ER 19:44 → ICU 22:07 → 4TH 05-01 12:16
PROVIDERS: ADMIT Family Medicine; ATTEND Family Medicine
DX: I95.9 Hypotension, unspecified (principal); R57.8 Other shock; E86.0 Dehydration; N28.9 Disorder of kidney and ureter, unspecified; J44.1 Chronic obstructive pulmonary disease with (acute) exacerbation; J44.0 Chronic obstructive pulmonary disease with (acute) lower respiratory infection; J18.9 Pneumonia, unspecified organism; Z68.42 Body mass index [BMI] 45.0-49.9, adult; Z66 Do not resuscitate; J81.1 Chronic pulmonary edema; R07.9 Chest pain, unspecified; R94.31 Abnormal electrocardiogram [ECG] [EKG]; J20.9 Acute bronchitis, unspecified; I10 Essential (primary) hypertension; I25.10 Atherosclerotic heart disease of native coronary artery without angina pectoris; I70.0 Atherosclerosis of aorta; K21.9 Gastro-esophageal reflux disease without esophagitis; R41.82 Altered mental status, unspecified; R53.83 Other fatigue; T40.2X5A Adverse effect of other opioids, initial encounter; T40.4X5A Adverse effect of other synthetic narcotics, initial encounter; M54.9 Dorsalgia, unspecified; G47.33 Obstructive sleep apnea (adult) (pediatric); E87.70 Fluid overload, unspecified; R33.9 Retention of urine, unspecified; K59.00 Constipation, unspecified; Z98.890 Other specified postprocedural states; E66.01 Morbid (severe) obesity due to excess calories; Z95.1 Presence of aortocoronary bypass graft; Z95.5 Presence of coronary angioplasty implant and graft
CPT/HCPCS: 36415; 36569; 70470; 71010; 71020; 74177; 76937; 80048; 80053; 80202; 80306; 81000; 82533; 82805; 83605; 83735; 83874; 83880; 84100; 84439; 84443; 84481; 84484; 85007; 85025; 85027; 85610; 85730; 87040; 87081; 87088; 93005; 93041; 93306; 94640; 94660; 94664; 94760; 94761; 96374; 96375; 96376

== ENCOUNTER → 2017-05-18 | Outpatient (CLI) | payer MEDICARE, OTHER ==
[~2017-05-18] MED LIST changes: +ATEN50TA PO; +CEFD300C3 PO; +DEXL60CA PO; +PRD20T PO; +RT-ALBUTEROL SULF 2.5 MG/3 ML PRE-MIX VIAL IH ONE; +RT-ALBUTEROL SULF 2.5 MG/3 ML PRE-MIX VIAL ONE; +TIZA4TAB3 PO
== END ==
LOC: RT 14:17
PROVIDERS: ATTEND Nurse Practitioner Family
DX: J43.8 Other emphysema (principal); R09.02 Hypoxemia
CPT/HCPCS: 94060; 94640; 94726; 94729

== ENCOUNTER 2017-05-23 19:54 | Outpatient (CLI) | payer MEDICARE, OTHER, MEDICAID ==
[~2017-05-23 19:54] MED LIST changes: -RT-ALBUTEROL SULF 2.5 MG/3 ML PRE-MIX VIAL IH ONE; -RT-ALBUTEROL SULF 2.5 MG/3 ML PRE-MIX VIAL ONE
== END 2017-05-24 06:30 | disposition home or self-care (01) ==
LOC: SLEEP 19:54
PROVIDERS: ATTEND Nurse Practitioner Family
DX: G47.33 Obstructive sleep apnea (adult) (pediatric) (principal); G47.50 Parasomnia, unspecified; R09.02 Hypoxemia
CPT/HCPCS: 95810

== ENCOUNTER → 2017-05-26 | Outpatient (CLI) | payer MEDICARE, OTHER ==
[~2017-05-26] MED LIST changes: +CATHETER FLUSH 10 ML SYR IV PRN; +REGADENOSON 0.4 MG/5 ML SYR (LEXISCAN) IV ONE
[2017-05-26 09:15] VITALS: BP 188/77
[2017-05-26 09:20] VITALS: BP 161/68
--- NOTE | 2017-05-27 08:09 | STRESS TEST ---
DATE OF SERVICE: 05/26/2017 RESTING AND POST REGADENOSON [id number]-A TETROFOSMIN SPECT CT IMAGING CLINICAL DIAGNOSIS: Baseline images were carried out after injection of 10.96 mCi [id number]-74-w Tetrofosmin. This was followed by 0.4 mg of Regadenoson and 31.1 mCi of [id number]-95-x Tetrofosmin for stress imaging. The electrocardiogram showed sinus rhythm at baseline and it did not change significantly with the Regadenoson infusion. There was nonspecific ST abnormality throughout the study. Overall, he tolerated the procedure well. Review of images at rest and following stress does not indicate any significant perfusion defects consistent with significant myocardial ischemia or infarction. Gated images show normal global left ventricular systolic function with normal regional wall motion. Left ventricular ejection fraction is calculated to be 70%. Left ventricular end diastolic volume is 49 mL. TID is absent (0.99). CONCLUSIONS: 1. No evidence of any significant myocardial ischemia or infarction on this study. 2. Normal regional wall motion. 3. Normal global left ventricular systolic function with a calculated ejection fraction of 70%. Job ID: [id number] DocumentID: [id number] Dictated Date: 05/26/2017 14:54:30 Bass Singer Date: 05/27/2017 07:08:10 Dictated By: JIM SPARROW MD, MA, FACP, FACC,
== END ==
LOC: CARD 07:35
PROVIDERS: ATTEND Internal Medicine Cardiovascular Disease
DX: I25.10 Atherosclerotic heart disease of native coronary artery without angina pectoris (principal); I65.23 Occlusion and stenosis of bilateral carotid arteries; J43.8 Other emphysema; I10 Essential (primary) hypertension; E78.4 Other hyperlipidemia; I95.2 Hypotension due to drugs
CPT/HCPCS: 78452; 93017

== ENCOUNTER 2018-05-15 11:06 | Emergency (ER) | payer MEDICARE, OTHER ==
[~2018-05-15] VITALS: Ht 177.8 cm; Wt 109.8 kg
[~2018-05-15 11:06] MED LIST changes: -CATHETER FLUSH 10 ML SYR IV PRN; -HYDR-3816 PO; -LOSA100T28 PO; +LOSA100T8 PO; -REGADENOSON 0.4 MG/5 ML SYR (LEXISCAN) IV ONE
--- OUTSIDE RECORDS SUMMARY | 2018-05-15 11:18 | XMS REPORT | Continuity of Care Document ---
Author Author [facility] Organization [facility] Address Unknown Phone Unavailable Allergies Active Description Code Type Severity Reaction Onset Reported/Identified Relationship to Patient Clinical Status Yes Sulfa (Sulfonamide Antibiotics) [id number] Drug Allergy Unknown N/A 2014 Medications There is no data. Problems Date Dx Coded Attending Type Code Diagnosis Diagnosed By 06/05/2011 Ot 272.4 06/05/2011 Ot 305.1 06/05/2011 Ot 414.00 06/05/2011 Ot 786.05 06/05/2011 Ot 786.50 06/05/2011 Ot V45.82 06/05/2011 Ot V58.66 06/05/2011 Ot V58.69 06/17/2011 Ot 305.1 06/17/2011 Ot 401.9 06/17/2011 Ot 414.01 06/17/2011 Ot 447.9 06/17/2011 Ot 786.05 06/17/2011 Ot 786.50 06/17/2011 Ot V58.63 06/17/2011 Ot V58.66 06/17/2011 Ot V58.69 12/25/2011 Ot 278.00 OBESITY, NOS 12/25/2011 Ot 305.1 TOBACCO USE DISORDER 12/25/2011 Ot 354.9 MONONEURITIS ARM NOS 12/25/2011 Ot 401.9 HYPERTENSION NOS 12/25/2011 Ot 414.01 CORONARY ATHEROSCLEROSIS OF THE [place] CORON 12/25/2011 Ot 433.10 CAROTID ARTERY OCCLUSION W O CEREBRAL IN 12/25/2011 Ot 443.9 PERIPH VASCULAR DIS NOS 12/25/2011 Ot 496 CHR AIRWAY OBSTRUCT NEC 12/25/2011 Ot 715.90 OSTEOARTHROS NOS-UNSPEC 12/25/2011 Ot 722.0 CERVICAL DISC DISPLACMNT 12/25/2011 Ot 729.81 SWELLING OF LIMB 12/25/2011 Ot 733.00 OSTEOPOROSIS NOS 12/25/2011 Ot 780.57 UNSPECIFIED SLEEP APNEA 12/25/2011 Ot 786.59 CHEST PAIN NEC 12/25/2011 Ot 789.06 ABDOMINAL PAIN, EPIGASTRIC 12/25/2011 Ot V45.82 PERCUTANEOUS TRANSLUM CORON ANGIOPLASTY 12/25/2011 Ot V85.36 BODY MASS INDEX 36.0-36.9, ADULT 02/06/2012 Ot 530.11 REFLUX ESOPHAGITIS 02/06/2012 Ot 535.40 OTH SPECIFIED GASTRITIS,W/O MENTION OF H 02/06/2012 Ot 553.3 DIAPHRAGMATIC HERNIA 01/29/2013 TOYA MAHAJAN, JERONIMO Ball Ot 241.0 NONTOX UNINODULAR GOITER 04/27/2013 MERCEDES SMART MD Ot 211.3 BENIGN NEOPLASM LG BOWEL 04/27/2013 MERCEDES SMART MD Ot 455.0 INT HEMORRHOID W/O COMPL 04/27/2013 MERCEDES SMART MD Ot 455.3 EXT HEMORRHOID W/O COMPL 04/27/2013 MERCEDES SMART MD Ot 562.10 DIVERTICULOSIS COLON (W/O MENT OF HEMORR 08/05/2013 TRIXIE MAHAJAN, VANDANA Diaz Ot 787.01 NAUSEA WITH VOMITING 08/05/2013 TRIXIE MAHAJAN, VANDANA Diaz Ot 787.91 DIARRHEA 08/05/2013 TRIXIE MAHAJAN, VANDANA Diaz Ot 789.00 ABDOMINAL PAIN, UNSPECIFIED SITE 11/05/2013 TRIXIE MAHAJAN, VANDANA Diaz Ot 787.91 DIARRHEA 01/23/2014 CATINA MAHAJAN, MAGDA S Ot 787.91 DIARRHEA 10/28/2014 Ot 327.51 PERIODIC LIMB MOVEMENT DISORDER 10/28/2014 Ot 786.09 RESPIRATORY ABNORM NEC 12/06/2014 MERCEDES SMART MD Ot 211.4 BENIGN NEOPL RECTUM/ANUS 12/06/2014 MERCEDES SMART MD Ot 272.0 PURE HYPERCHOLESTEROLEM 12/06/2014 MERCEDES SMART MD Ot 401.9 HYPERTENSION NOS 12/06/2014 MERCEDES SMART MD Ot 414.01 CORONARY ATHEROSCLEROSIS OF THE [place] CORON 12/06/2014 MERCEDES SMART MD Ot 455.0 INT HEMORRHOID W/O COMPL 12/06/2014 MERCEDES SMART MD Ot 455.3 EXT HEMORRHOID W/O COMPL 12/06/2014 MERCEDES SMART MD Ot 496 CHR AIRWAY OBSTRUCT NEC 12/06/2014 MERCEDES SMART MD Ot 562.10 DIVERTICULOSIS COLON (W/O MENT OF HEMORR 12/08/2014 Ot 592.0 12/08/2014 Ot V72.81 12/08/2014 Ot V72.83 12/08/2014 Ot V74.8 12/08/2014 Ot 592.0 12/08/2014 Ot 414.01 12/08/2014 Ot 553.1 12/08/2014 Ot V72.63 12/08/2014 Ot V72.81 12/08/2014 Ot V74.8 12/08/2014 Ot 553.1 12/08/2014 Ot 722.4 12/08/2014 Ot 401.9 12/08/2014 Ot 414.00 12/08/2014 Ot 443.9 12/08/2014 Ot 786.05 12/08/2014 Ot 786.50 12/08/2014 Ot V58.63 12/08/2014 Ot V58.66 12/08/2014 Ot V58.69 12/08/2014 Ot V72.63 12/08/2014 Ot V72.81 12/08/2014 Ot 241.0 12/08/2014 Ot 241.0 12/08/2014 Ot V72.84 12/08/2014 Ot 722.52 12/08/2014 Ot 241.0 12/08/2014 Ot 241.0 12/08/2014 Ot 719.45 12/08/2014 TOYA MAHAJAN, JERONIMO P Ot 241.0 12/08/2014 TOYA MAHAJAN, JERONIMO P Ot 241.0 12/08/2014 TOYA MAHAJAN, JERONIMO P Ot V72.63 12/08/2014 TOYA MAHAJAN, JERONIMO P Ot V72.81 12/08/2014 TOYA MAHAJAN, JERONIMO P Ot V74.8 12/08/2014 BING MAHAJAN, MERCEDES Ot V72.84 12/08/2014 BING MAHAJAN, MERCEDES Ot 787.91 12/08/2014 BING MAHAJAN, MERCEDES Ot 789.1 12/08/2014 BING MAHAJAN, MERCEDES Ot 787.3 12/08/2014 BING MAHAJAN, MERCEDES Ot 787.91 12/08/2014 BING MAHAJAN, MERCEDES Ot 789.00 12/08/2014 KYARA MAHAJAN FACC, JIM [facility] CCDS Ot 414.01 12/08/2014 KYARA MAHAJAN FACC, JIM [facility] CCDS Ot 786.50 12/08/2014 Ot 787.91 12/08/2014 CHENG FATIMA DO Ot 787.91 12/08/2014 Ot 787.91 12/08/2014 BING MAHAJAN, MERCEDES Ot V72.84 12/19/2014 BING MAHAJAN, MERCEDES Ot V72.84 03/06/2015 Ot 414.01 03/06/2015 Ot 553.1 03/06/2015 Ot V72.63 03/06/2015 Ot V72.81 03/06/2015 Ot V74.8 03/06/2015 Ot 553.1 03/06/2015 Ot 722.4 03/06/2015 Ot 401.9 03/06/2015 Ot 414.00 03/06/2015 Ot 443.9 03/06/2015 Ot 786.05 03/06/2015 Ot 786.50 03/06/2015 Ot V58.63 03/06/2015 Ot V58.66 03/06/2015 Ot V58.69 03/06/2015 Ot V72.63 03/06/2015 Ot V72.81 03/06/2015 Ot 241.0 03/06/2015 Ot 241.0 03/06/2015 Ot V72.84 03/06/2015 Ot 722.52 03/06/2015 Ot 241.0 03/06/2015 Ot 241.0 03/06/2015 Ot 719.45 03/06/2015 TOYA MAHAJAN, JREONIMO P Ot 241.0 03/06/2015 TOYA MAHAJAN, JERONIMO P Ot 241.0 03/06/2015 TOYA MAHAJAN, JERONIMO P Ot V72.63 03/06/2015 TOYA MAHAJAN, JERONIMO P Ot V72.81 03/06/2015 TOYA MAHAJAN, JERONIMO P Ot V74.8 03/06/2015 BING MAHAJAN, MERCEDES Ot V72.84 03/06/2015 BING MAHAJAN, MERCEDES Ot 787.91 03/06/2015 BING MAHAJAN, MERCEDES Ot 789.1 03/06/2015 BING MAHAJAN, MERCEDES Ot 787.3 03/06/2015 BING MAHAJAN, MERCEDES Ot 787.91 03/06/2015 BING MAHAJAN, MERCEDES Ot 789.00 03/06/2015 KYARA MAHAJAN [facility], ALI [facility] CCDS Ot 414.01 03/06/2015 KYARA MAHAJAN FAC, ALI FACP CCDS Ot 786.50 03/06/2015 Ot 787.91 03/06/2015 YARAARCNEIO DO CHENG Willian Ot 787.91 03/06/2015 Ot 787.91 03/06/2015 BING MAHAJAN, MERCEDES Ot V72.84 06/12/2015 Ot 553.1 06/12/2015 Ot V72.63 06/12/2015 Ot V72.81 06/12/2015 Ot V74.8 06/12/2015 Ot 553.1 06/12/2015 Ot 722.4 06/12/2015 Ot 401.9 06/12/2015 Ot 414.00 06/12/2015 Ot 443.9 06/12/2015 Ot 786.05 06/12/2015 Ot 786.50 06/12/2015 Ot V58.63 06/12/2015 Ot V58.66 06/12/2015 Ot V58.69 06/12/2015 Ot V72.63 06/12/2015 Ot V72.81 06/12/2015 Ot 241.0 06/12/2015 Ot 241.0 06/12/2015 Ot V72.84 06/12/2015 Ot 722.52 06/12/2015 Ot 241.0 06/12/2015 Ot 241.0 06/12/2015 Ot 719.45 06/12/2015 TOYA MAHAJAN, JERONIMO P Ot 241.0 06/12/2015 TOYA MAHAJAN, JERONIMO P Ot 241.0 06/12/2015 TOYA MAHAJAN, JERONIMO P Ot V72.63 06/12/2015 TOYA MAHAJAN, JERONIMO P Ot V72.81 06/12/2015 TOYA MAHAJAN, JERONIMO P Ot V74.8 06/12/2015 BING MAHAJAN, MERCEDES Ot V72.84 06/12/2015 BING MAHAJAN, TOMAAKI Ot 787.91 06/12/2015 BING MAHAJAN, MERCEDES Ot 789.1 06/12/2015 BING MAHAJAN, MERCEDES Ot 787.3 06/12/2015 BING MAHAJAN, MERCEDES Ot 787.91 06/12/2015 BING MAHAJAN, TOMAAKI Ot 789.00 06/12/2015 KYARA MAHAJAN [facility], [facility] CCDS Ot 414.01 06/12/2015 KYARA MAHAJAN FAC, ALI FACP CCDS Ot 786.50 06/12/2015 Ot 787.91 06/12/2015 CHENG FATIMA DO Ot 787.91 06/12/2015 Ot 787.91 06/12/2015 MERCEDES SMART MD Ot V72.84 06/22/2015 Ot 553.1 06/22/2015 Ot V72.63 06/22/2015 Ot V72.81 06/22/2015 Ot V74.8 06/22/2015 Ot 553.1 06/22/2015 Ot 722.4 06/22/2015 Ot 401.9 06/22/2015 Ot 414.00 06/22/2015 Ot 443.9 06/22/2015 Ot 786.05 06/22/2015 Ot 786.50 06/22/2015 Ot V58.63 06/22/2015 Ot V58.66 06/22/2015 Ot V58.69 06/22/2015 Ot V72.63 06/22/2015 Ot V72.81 06/22/2015 Ot 241.0 06/22/2015 Ot 241.0 06/22/2015 Ot V72.84 06/22/2015 Ot 722.52 06/22/2015 Ot 241.0 06/22/2015 Ot 241.0 06/22/2015 Ot 719.45 06/22/2015 TOYA MAHAJAN, JERONIMO Ball Ot 241.0 06/22/2015 TOYA MAHAJAN, JERONIMO P Ot 241.0 06/22/2015 TOYA MAHAJAN, JERONIMO P Ot V72.63 06/22/2015 TOYA MAHAJAN, JERONIMO P Ot V72.81 06/22/2015 TOYA MAHAJAN, JERONIMO Ball Ot V74.8 06/22/2015 BING MAHAJAN, MERCEDES Ot V72.84 06/22/2015 BING MAHAJAN, MERCEDES Ot 787.91 06/22/2015 BING MAHAJAN, MERCEDES Ot 789.1 06/22/2015 BING MAHAJAN, MERCEDES Ot 787.3 06/22/2015 BING MAHAJAN, MERCEDES Ot 787.91 06/22/2015 BING MAHAJAN, MERCEDES Ot 789.00 06/22/2015 KYARA MAHAJAN FACC, ALI FACP CCDS Ot 414.01 06/22/2015 KYARA MAHAJAN FACC, ALI FACP CCDS Ot 786.50 06/22/2015 Ot 787.91 06/22/2015 AKUA RESENDIZ CHENG Willian Ot 787.91 06/22/2015 Ot 787.91 06/22/2015 BING MAHAJAN, MERCEDES Ot V72.84 06/27/2015 Ot 553.1 06/27/2015 Ot V72.63 06/27/2015 Ot V72.81 06/27/2015 Ot V74.8 06/27/2015 Ot 553.1 06/27/2015 Ot 722.4 06/27/2015 Ot 401.9 06/27/2015 Ot 414.00 06/27/2015 Ot 443.9 06/27/2015 Ot 786.05 06/27/2015 Ot 786.50 06/27/2015 Ot V58.63 06/27/2015 Ot V58.66 06/27/2015 Ot V58.69 06/27/2015 Ot V72.63 06/27/2015 Ot V72.81 06/27/2015 Ot 241.0 06/27/2015 Ot 241.0 06/27/2015 Ot V72.84 06/27/2015 Ot 722.52 06/27/2015 Ot 241.0 06/27/2015 Ot 241.0 06/27/2015 Ot 719.45 06/27/2015 TOYA MAHAJAN, JERONIMO Ball Ot 241.0 06/27/2015 TOYA MAHAJAN, JERONIMO Ball Ot 241.0 06/27/2015 TOYA MAHAJAN, JERONIMO Ball Ot V72.63 06/27/2015 TOYA MAHAJAN, JERONIMO Ball Ot V72.81 06/27/2015 TOYA MAHAJAN, JERONIMO Ball Ot V74.8 06/27/2015 BING MAHAJAN, MERCEDES Ot V72.84 06/27/2015 BING MAHAJAN, MERCEDES Ot 787.91 06/27/2015 BING MAHAJAN, MERCEDES Ot 789.1 06/27/2015 BING MAHAJAN, MERCEDES Ot 787.3 06/27/2015 BING MAHAJAN, MERCEDES Ot 787.91 06/27/2015 BING MAHAJAN, MERCEDES Ot 789.00 06/27/2015 KYARA MAHAJAN FACC, ALI FACP CCDS Ot 414.01 06/27/2015 KYARA MAHAJAN FACC, ALI FACP CCDS Ot 786.50 06/27/2015 Ot 787.91 06/27/2015 CHENG FATIMA DO Ot 787.91 06/27/2015 Ot 787.91 06/27/2015 MERCEDES SMART MD Ot V72.84 07/02/2015 HAYLEE BLADWIN DO Ot E04.1 07/02/2015 BAIMA, ERICK L BUSINESS EMPLOYMENT SPECIALIST Ot E78.5 07/02/2015 BAIMA, ERICK L BUSINESS EMPLOYMENT SPECIALIST Ot I10 07/02/2015 BAIMA, ERICK L BUSINESS EMPLOYMENT SPECIALIST Ot I25.10 07/02/2015 BAIMA, ERICK L BUSINESS EMPLOYMENT SPECIALIST Ot I73.9 07/02/2015 BAIMA, ERICK L BUSINESS EMPLOYMENT SPECIALIST Ot I77.9 07/02/2015 BAIMA, ERICK L BUSINESS EMPLOYMENT SPECIALIST Ot R07.9 07/18/2015 HAYLEE BALDWIN DO Ot E04.1 07/23/2015 BAIMA, ERICK L BUSINESS EMPLOYMENT SPECIALIST Ot E78.5 07/23/2015 BAIMA, ERICK L BUSINESS EMPLOYMENT SPECIALIST Ot I10 07/23/2015 BAIMA, ERICK L BUSINESS EMPLOYMENT SPECIALIST Ot I25.10 07/23/2015 BAIMA, ERICK L BUSINESS EMPLOYMENT SPECIALIST Ot I73.9 07/23/2015 BAIMA, ERICK L BUSINESS EMPLOYMENT SPECIALIST Ot I77.9 07/23/2015 BAIMA, ERICK L BUSINESS EMPLOYMENT SPECIALIST Ot R07.9 07/30/2015 FRANK MAHAJAN, YAYA Moreno Ot M54.5 07/30/2015 FRANK MAHAJAN, YAYA Moreno Ot M54.6 08/02/2015 HAYLEE BALDWIN DO S Ot E04.1 08/02/2015 BAIMA, ERICK L BUSINESS EMPLOYMENT SPECIALIST Ot E78.5 08/02/2015 BAIMA, ERICK L BUSINESS EMPLOYMENT SPECIALIST Ot I10 08/02/2015 BAIMA, ERICK L BUSINESS EMPLOYMENT SPECIALIST Ot I25.10 08/02/2015 BAIMA, ERICK L BUSINESS EMPLOYMENT SPECIALIST Ot I73.9 08/02/2015 BAIMA, ERICK L BUSINESS EMPLOYMENT SPECIALIST Ot I77.9 08/02/2015 BAIMA, ERICK L BUSINESS EMPLOYMENT SPECIALIST Ot R07.9 08/02/2015 BAIMA, ERICK L BUSINESS EMPLOYMENT SPECIALIST Ot E78.5 08/02/2015 BAIMA, ERICK L BUSINESS EMPLOYMENT SPECIALIST Ot I10 08/02/2015 BAIMAERICK BUSINESS EMPLOYMENT SPECIALIST Ot I25.10 08/02/2015 BAIMAERICK L BUSINESS EMPLOYMENT SPECIALIST Ot I73.9 08/02/2015 BAIMAERICK L BUSINESS EMPLOYMENT SPECIALIST Ot I77.9 08/02/2015 BAIMAERICK L BUSINESS EMPLOYMENT SPECIALIST Ot R07.9 08/02/2015 BAIMAERICK L BUSINESS EMPLOYMENT SPECIALIST Ot E78.5 08/02/2015 BAIMAERICK L BUSINESS EMPLOYMENT SPECIALIST Ot I10 08/02/2015 BAIMAERICK L BUSINESS EMPLOYMENT SPECIALIST Ot I25.10 08/02/2015 BAIMAERICK BUSINESS EMPLOYMENT SPECIALIST Ot I73.9 08/02/2015 BAIMAERICK L BUSINESS EMPLOYMENT SPECIALIST Ot I77.9 08/02/2015 BAIMAERICK BUSINESS EMPLOYMENT SPECIALIST Ot R07.9 08/02/2015 HAYLEE BALDWIN DO Ot E04.1 08/13/2015 YAYA MARIE MD Ot M54.5 08/13/2015 YAYA MARIE MD Ot M54.6 08/13/2015 YAYA MARIE MD Ot M54.5 08/13/2015 YAYA MARIE MD Ot M54.6 08/20/2015 Ot 787.91 08/20/2015 Ot 787.91 08/23/2015 CHENG FATIMA DO Ot D72.829 ELEVATED WHITE BLOOD CELL COUNT, UNSPECI 08/23/2015 CHENG FATIMA DO Ot F32.9 MAJOR DEPRESSIVE DISORDER, SINGLE EPISOD 08/23/2015 CHENG FATIMA DO Ot J18.9 PNEUMONIA, UNSPECIFIED ORGANISM 08/23/2015 CHENG FATIMA DO Ot J44.9 CHRONIC OBSTRUCTIVE PULMONARY DISEASE, U 08/23/2015 CHENG FATIMA DO Ot K21.9 GASTRO-ESOPHAGEAL REFLUX DISEASE WITHOUT 08/23/2015 CHENG FATIMA DO Ot R91.1 SOLITARY PULMONARY NODULE 08/23/2015 CHENG FATIMA DO Ot Z87.891 PERSONAL HISTORY OF NICOTINE DEPENDENCE 09/06/2015 YAYA MARIE MD Ot M47.816 09/06/2015 YAYA MARIE MD Ot M51.16 09/06/2015 YAYA MARIE MD, Ot Z79.899 09/14/2015 YAYA MARIE MD Ot M47.816 09/14/2015 YAYA MARIE MD, Ot M51.16 09/14/2015 YAYA MARIE MD, Ot Z79.899 09/14/2015 YAYA MARIE MD, Ot M47.816 09/14/2015 YAYA MARIE MD, Ot M51.16 09/14/2015 YAYA MARIE MD, Ot Z79.899 10/05/2015 YAYA MARIE MD, Ot M47.816 SPONDYLOSIS W/O MYELOPATHY OR RADICULOPA 10/05/2015 YAYA MARIE MD, Ot M51.16 INTERVERTEBRAL DISC DISORDERS W RADICULO 10/05/2015 YAYA MARIE MD, Ot Z79.02 SENIOR LIVING (CURRENT) USE OF ANTITHROMBOTI 10/05/2015 YAYA MARIE MD, Ot Z79.899 OTHER SENIOR LIVING (CURRENT) DRUG THERAPY 10/19/2015 MELISSA LYNCH DO Ot F17.211 NICOTINE DEPENDENCE, CIGARETTES, IN [place] 10/19/2015 MELISSA LYNCH DO Ot I10 ESSENTIAL (PRIMARY) HYPERTENSION 10/19/2015 MELISSA LYNCH DO Ot J44.9 CHRONIC OBSTRUCTIVE PULMONARY DISEASE, U 12/11/2015 BAIMA, ERICK L BUSINESS EMPLOYMENT SPECIALIST Ot E78.5 12/11/2015 BAIMA, ERICK L BUSINESS EMPLOYMENT SPECIALIST Ot I10 12/11/2015 BAIMA, ERICK L BUSINESS EMPLOYMENT SPECIALIST Ot I25.10 12/11/2015 BAIMA, ERICK L BUSINESS EMPLOYMENT SPECIALIST Ot I73.9 12/11/2015 BAIMA, ERICK L BUSINESS EMPLOYMENT SPECIALIST Ot I77.9 12/11/2015 BAIMA, ERICK L BUSINESS EMPLOYMENT SPECIALIST Ot R07.9 12/11/2015 BAIMA, ERICK L BUSINESS EMPLOYMENT SPECIALIST Ot E78.5 12/11/2015 BAIMA, ERICK L BUSINESS EMPLOYMENT SPECIALIST Ot I10 12/11/2015 BAIMA, ERICK L BUSINESS EMPLOYMENT SPECIALIST Ot I25.10 12/11/2015 BAIMA, ERICK L BUSINESS EMPLOYMENT SPECIALIST Ot I73.9 12/11/2015 BAIMA, ERICK L BUSINESS EMPLOYMENT SPECIALIST Ot I77.9 12/11/2015 BAIMA, ERICK L BUSINESS EMPLOYMENT SPECIALIST Ot R07.9 12/11/2015 HAYLEE BALDWIN DO Ot E04.1 12/11/2015 YAYA MARIE MD Ot M54.5 12/11/2015 YAYA MARIE MD Ot M54.6 12/11/2015 YAYA MARIE MD Ot M47.816 12/11/2015 YAYA MARIE MD Ot M51.16 12/11/2015 YAYA MARIE MD, Ot Z79.899 12/11/2015 LATRICIA ALVARES TECHNOLOGY PROGRAM MANAGER Ot M47.21 12/11/2015 LATRICIA ALVARES APRN Ot R91.1 12/11/2015 BAIMAERICK L BUSINESS EMPLOYMENT SPECIALIST Ot E78.5 12/11/2015 BAIMA ERICK L BUSINESS EMPLOYMENT SPECIALIST Ot I10 12/11/2015 BAIMA ERICK L BUSINESS EMPLOYMENT SPECIALIST Ot I25.10 12/11/2015 BAIMA, ERICK L BUSINESS EMPLOYMENT SPECIALIST Ot I73.9 12/11/2015 BAIMA ERICK L BUSINESS EMPLOYMENT SPECIALIST Ot I77.9 12/11/2015 BAIMA ERICK L BUSINESS EMPLOYMENT SPECIALIST Ot R07.9 12/11/2015 HAYLEE BALDWIN DO Ot E04.1 12/11/2015 YAYA MARIE MD Ot M54.5 12/11/2015 YAYA MARIE MD Ot M54.6 12/11/2015 YAYA MARIE MD Ot M47.816 12/11/2015 YAYA MARIE MD Ot M51.16 12/11/2015 YAYA MARIE MD Ot Z79.899 12/11/2015 LATRICIA ALVARES APRN Ot M47.21 12/11/2015 LATRICIA ALVARES APRN Ot R91.1 12/11/2015 LATRICIA ALVARES APRN Ot M47.21 12/11/2015 LATRICIA ALVARES APRN Ot R91.1 12/17/2015 YAYA MARIE MD Ot M47.816 SPONDYLOSIS W/O MYELOPATHY OR RADICULOPA 12/17/2015 YAYA MARIE MD Ot M51.16 INTERVERTEBRAL DISC DISORDERS W RADICULO 12/17/2015 YAYA MARIE MD Ot Z79.02 FORM MAKER (CURRENT) USE OF ANTITHROMBOTI 12/17/2015 YAYA MARIE MD Ot Z79.899 OTHER SENIOR LIVING (CURRENT) DRUG THERAPY 12/24/2015 LATRICIA ALVARES APRN Ot 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, OCCIPT- 12/24/2015 LATRICIA ALVARES APRN Ot R91.1 SOLITARY PULMONARY NODULE 12/24/2015 LATRICIA ALVARES APRN Ot 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, OCCIPT- 12/24/2015 LATRICIA ALVARES APRN Ot R91.1 SOLITARY PULMONARY NODULE 01/07/2016 LATRICIA ALVARES APRN Ot 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, OCCIPT- 01/07/2016 LATRICIA ALVARES APRN Ot R91.1 SOLITARY PULMONARY NODULE 07/08/2016 HAYLEE BALDWIN DO Ot E04.1 NONTOXIC SINGLE THYROID NODULE 12/11/2016 Ot 241.0 NONTOX UNINODULAR GOITER 12/11/2016 Ot 241.0 NONTOX UNINODULAR GOITER 12/11/2016 Ot V72.84 EXAM PRE- OPERATIVE NOS 12/11/2016 Ot 722.52 LUMB/ LUMBOSAC DISC DEGEN 12/11/2016 Ot 241.0 NONTOX UNINODULAR GOITER 12/11/2016 Ot 241.0 NONTOX UNINODULAR GOITER 12/11/2016 Ot 719.45 JOINT PAIN- PELVIS 12/11/2016 TOYA MAHAJAN, JERONIMO Ball Ot 241.0 NONTOX UNINODULAR GOITER 12/11/2016 TOYA MAHAJAN, JERONIMO Ball Ot 241.0 NONTOX UNINODULAR GOITER 12/11/2016 TOYA MAHAJAN, JERONIMO Ball Ot V72.63 PRE-PROCEDURAL LABORATORY EXAMINATION 12/11/2016 JERONIMO PITTMAN MD Ot V72.81 XAVU-COL-IJJNINITO CARDIOVASCULAR 12/11/2016 JERONIMO PITTMAN MD Ot V74.8 SCREEN-BACTERIAL DIS NEC 12/11/2016 MERCEDES SMART MD Ot V72.84 EXAM PRE-OPERATIVE NOS 12/11/2016 MERCEDES SMART MD Ot 787.91 DIARRHEA 12/11/2016 MERCEDES SMART MD Ot 789.1 HEPATOMEGALY 12/11/2016 MERCEDES SMART MD Ot 787.3 FLATUL/ERUCTAT/GAS PAIN 12/11/2016 MERCEDES SMART MD Ot 787.91 DIARRHEA 12/11/2016 MERCEDES SMART MD Ot 789.00 ABDOMINAL PAIN, UNSPECIFIED SITE 12/11/2016 KYARA MAHAJAN [facility], [facility] CCDS Ot 414.01 CORONARY ATHEROSCLEROSIS OF THE [place] CORON 12/11/2016 KYARA MAHAJAN [facility], [facility] CCDS Ot 786.50 CHEST PAIN NOS 12/11/2016 Ot 787.91 DIARRHEA 12/11/2016 CHENG FATIMA DO Ot 787.91 DIARRHEA 12/11/2016 Ot 787.91 DIARRHEA 12/11/2016 MERCEDES SMART MD Ot V72.84 EXAM PRE-OPERATIVE NOS 12/11/2016 ERICK NASH BUSINESS EMPLOYMENT SPECIALIST Ot E78.5 HYPERLIPIDEMIA, UNSPECIFIED 12/11/2016 BAIFLACO FORTUNEHER L BUSINESS EMPLOYMENT SPECIALIST Ot I10 ESSENTIAL (PRIMARY) HYPERTENSION 12/11/2016 BAIERICK FROTUNE L BUSINESS EMPLOYMENT SPECIALIST Ot 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 12/11/2016 BAIMAFLACOERICK L BUSINESS EMPLOYMENT SPECIALIST Ot I73.9 PERIPHERAL VASCULAR DISEASE, UNSPECIFIED 12/11/2016 ZOËMAERICK L BUSINESS EMPLOYMENT SPECIALIST Ot I77.9 DISORDER OF ARTERIES AND ARTERIOLES, UNS 12/11/2016 BAIERICK FORTUNE L BUSINESS EMPLOYMENT SPECIALIST Ot R07.9 CHEST PAIN, UNSPECIFIED 12/11/2016 HAYLEE BALDWIN DO Ot E04.1 NONTOXIC SINGLE THYROID NODULE 12/11/2016 YAYA MARIE MD Ot M54.5 LOW BACK PAIN 12/11/2016 YAYA MARIE MD Ot M54.6 PAIN IN THORACIC SPINE 12/11/2016 YAYA MARIE MD Ot M47.816 SPONDYLOSIS W/O MYELOPATHY OR RADICULOPA 12/11/2016 YAYA MARIE MD Ot M51.16 INTERVERTEBRAL DISC DISORDERS W RADICULO 12/11/2016 YAYA MARIE MD Ot Z79.899 OTHER SENIOR LIVING (CURRENT) DRUG THERAPY 12/11/2016 LATRICIA ALVARES APRN Ot 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, OCCIPT- 12/11/2016 LATRICIA ALVARES APRN Ot R91.1 SOLITARY PULMONARY NODULE 12/16/2016 LATRICIA ALVARES APRN Ot R05 COUGH 12/16/2016 LATRICIA ALVARES TECHNOLOGY PROGRAM MANAGER Ot R09.89 OTH SYMPTOMS AND SIGNS INVOLVING THE CIR 12/19/2016 KYARA MAHAJAN [facility], [facility] CCDS Ot 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 12/22/2016 KYARA MAHAJAN [facility], [facility] CCDS Ot 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 12/26/2016 SEEMA BALDWIN DOLINE S Ot I10 ESSENTIAL (PRIMARY) HYPERTENSION 12/26/2016 GILNDSEEMA MARKHAM DOLINE S Ot I95.1 ORTHOSTATIC HYPOTENSION 12/26/2016 GILNDER KARIME RESENDIZHAYLEE S Ot J44.9 CHRONIC OBSTRUCTIVE PULMONARY DISEASE, U 12/26/2016 GILNDER DO, HAYLEE S Ot M54.9 DORSALGIA, UNSPECIFIED 12/26/2016 GILNDER SEEMA RESENDIZLINE S Ot R00.1 BRADYCARDIA, UNSPECIFIED 12/26/2016 GILNDER , HAYLEE S Ot Z87.01 PERSONAL HISTORY OF PNEUMONIA (RECURRENT 12/26/2016 SEEMA BALDWIN DOLINE S Ot Z87.891 PERSONAL HISTORY OF NICOTINE DEPENDENCE 12/26/2016 SEEMA BALDWIN DOLINE S Ot Z95.5 PRESENCE OF CORONARY ANGIOPLASTY IMPLANT 12/30/2016 Ot 241.0 NONTOX UNINODULAR GOITER 12/30/2016 Ot 241.0 NONTOX UNINODULAR GOITER 12/30/2016 Ot V72.84 EXAM PRE- OPERATIVE NOS 12/30/2016 Ot 722.52 LUMB/ LUMBOSAC DISC DEGEN 12/30/2016 Ot 241.0 NONTOX UNINODULAR GOITER 12/30/2016 Ot 241.0 NONTOX UNINODULAR GOITER 12/30/2016 Ot 719.45 JOINT PAIN- PELVIS 12/30/2016 JERONIMO PITTMAN MD Ot 241.0 NONTOX UNINODULAR GOITER 12/30/2016 JERONIMO PITTMAN MD Ot 241.0 NONTOX UNINODULAR GOITER 12/30/2016 JERONIMO PITTMAN MD Ot V72.63 PRE-PROCEDURAL LABORATORY EXAMINATION 12/30/2016 JERONIMO PITTMAN MD Ot V72.81 [id number] CARDIOVASCULAR 12/30/2016 JERONIMO PITTMAN MD Ot V74.8 SCREEN-BACTERIAL DIS NEC 12/30/2016 MERCEDES SMART MD Ot V72.84 EXAM PRE-OPERATIVE NOS 12/30/2016 MERCEDES SMART MD Ot 787.91 DIARRHEA 12/30/2016 BING MAHAJAN, MERCEDES Ot 789.1 HEPATOMEGALY 12/30/2016 MERCEDES SMART MD Ot 787.3 FLATUL/ERUCTAT/GAS PAIN 12/30/2016 MERCEDES SMART MD Ot 787.91 DIARRHEA 12/30/2016 MERCEDES SMART MD Ot 789.00 ABDOMINAL PAIN, UNSPECIFIED SITE 12/30/2016 KYARA MAHAJAN FAC, ALI FAC CCDS Ot 414.01 CORONARY ATHEROSCLEROSIS OF THE [place] CORON 12/30/2016 KYARA MAHAJAN FAC, ALI FAC CCDS Ot 786.50 CHEST PAIN NOS 12/30/2016 Ot 787.91 DIARRHEA 12/30/2016 CHENG FATIMA DO Ot 787.91 DIARRHEA 12/30/2016 Ot 787.91 DIARRHEA 12/30/2016 MERCEDES SMART MD Ot V72.84 EXAM PRE-OPERATIVE NOS 12/30/2016 ERICK NASH BUSINESS EMPLOYMENT SPECIALIST Ot E78.5 HYPERLIPIDEMIA, UNSPECIFIED 12/30/2016 ERICK NASH BUSINESS EMPLOYMENT SPECIALIST Ot I10 ESSENTIAL (PRIMARY) HYPERTENSION 12/30/2016 ERICK NASH BUSINESS EMPLOYMENT SPECIALIST Ot 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 12/30/2016 ERICK NASH BUSINESS EMPLOYMENT SPECIALIST Ot I73.9 PERIPHERAL VASCULAR DISEASE, UNSPECIFIED 12/30/2016 ERICK NASH BUSINESS EMPLOYMENT SPECIALIST Ot I77.9 DISORDER OF ARTERIES AND ARTERIOLES, UNS 12/30/2016 ERICK NASH BUSINESS EMPLOYMENT SPECIALIST Ot R07.9 CHEST PAIN, UNSPECIFIED 12/30/2016 HAYLEE BALDWIN DO Ot E04.1 NONTOXIC SINGLE THYROID NODULE 12/30/2016 YAYA MARIE MD Ot M54.5 LOW BACK PAIN 12/30/2016 YAYA MARIE MD Ot M54.6 PAIN IN THORACIC SPINE 12/30/2016 YAYA MARIE MD Ot M47.816 SPONDYLOSIS W/O MYELOPATHY OR RADICULOPA 12/30/2016 YAYA MARIE MD Ot M51.16 INTERVERTEBRAL DISC DISORDERS W RADICULO 12/30/2016 YAYA MARIE MD Ot Z79.899 OTHER FORM MAKER (CURRENT) DRUG THERAPY 12/30/2016 LATRICIA ALVARES APRN Ot 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, OCCIPT- 12/30/2016 LATRICIA ALVARES TECHNOLOGY PROGRAM MANAGER Ot R91.1 SOLITARY PULMONARY NODULE 12/30/2016 LATRICIA ALVARES TECHNOLOGY PROGRAM MANAGER Ot R05 COUGH 12/30/2016 LATRICIA ALVARES TECHNOLOGY PROGRAM MANAGER Ot R09.89 OTH SYMPTOMS AND SIGNS INVOLVING THE CIR 12/30/2016 KYARA MAHAJAN FACC, ALI FACP CCDS Ot 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 12/30/2016 KYARA MAHAJAN FACC, ALI FACP CCDS Ot 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 12/30/2016 KYARA MAHAJAN FACC, ALI FACP CCDS Ot 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 12/30/2016 KYARA MAHAJAN FACC, ALI FACP CCDS Ot 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 12/31/2016 KYARA MAHAJAN FACC, ALI FACP CCDS Ot E78.4 OTHER HYPERLIPIDEMIA 12/31/2016 KYARA MAHAJAN FACC, ALI FACP CCDS Ot I10 ESSENTIAL (PRIMARY) HYPERTENSION 12/31/2016 KYARA MAHAJAN FACC, ALI FACP CCDS Ot 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 12/31/2016 KYARA MAHAJAN FACC, ALI FACP CCDS Ot 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 12/31/2016 KYARA MAHAJAN FACC, ALI FACP CCDS Ot I70.213 ATHSCL [place] ARTERIES OF EXTRM W INTRMT 12/31/2016 KYARA MAHAJAN FACC, ALI FACP CCDS Ot J43.8 OTHER EMPHYSEMA 12/31/2016 KYARA MAHAJAN FACC, ALI FACP CCDS Ot R06.02 SHORTNESS OF BREATH 12/31/2016 KYARA MAHAJAN FACC, ALI FACP CCDS Ot Z87.891 PERSONAL HISTORY OF NICOTINE DEPENDENCE 01/07/2017 LATRICIA ALVARES TECHNOLOGY PROGRAM MANAGER Ot R05 COUGH 01/07/2017 LATRICIA ALVARES TECHNOLOGY PROGRAM MANAGER Ot R09.89 OTH SYMPTOMS AND SIGNS INVOLVING THE CIR 01/13/2017 LATRICIA ALVARES TECHNOLOGY PROGRAM MANAGER Ot R05 COUGH 01/13/2017 LATRICIA ALVARES TECHNOLOGY PROGRAM MANAGER Ot R09.89 OTH SYMPTOMS AND SIGNS INVOLVING THE CIR 01/16/2017 YAYA MARIE MD Ot M51.16 INTERVERTEBRAL DISC DISORDERS W RADICULO 01/16/2017 YAYA MARIE MD Ot M79.1 MYALGIA 01/16/2017 YAYA MARIE MD Ot Z79.899 OTHER FORM MAKER (CURRENT) DRUG THERAPY 01/21/2017 KYARA MAHAJAN FACC, ALI FACP CCDS Ot E78.4 OTHER HYPERLIPIDEMIA 01/21/2017 KYARA MAHAJAN FACC, ALI FACP CCDS Ot I10 ESSENTIAL (PRIMARY) HYPERTENSION 01/21/2017 KYARA MAHAJAN FACWillie, ALI FACP CCDS Ot 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 01/21/2017 KYARA MAHAJAN FACC, ALI FACP CCDS Ot 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 01/21/2017 KYARA MAHAJAN FACC, ALI FACP CCDS Ot I70.213 ATHSCL [place] ARTERIES OF EXTRM W INTRMT 01/21/2017 KYARA DENSONC, ALI FACP CCDS Ot J43.8 OTHER EMPHYSEMA 01/21/2017 KYARA MAHAJAN FACC, ALI FACP CCDS Ot R06.02 SHORTNESS OF BREATH 01/21/2017 KYARA MAHAJAN FACC, ALI FACP CCDS Ot Z87.891 PERSONAL HISTORY OF NICOTINE DEPENDENCE 01/21/2017 YAYA MARIE MD Ot M51.16 INTERVERTEBRAL DISC DISORDERS W RADICULO 01/21/2017 YAYA MARIE MD Ot M79.1 MYALGIA 01/21/2017 YAYA MARIE MD Ot Z79.899 OTHER [facility]ENIOR LIVING (CURRENT) DRUG THERAPY 02/02/2017 KYARA MAHAJAN FACC, JIM FACP CCDS Ot E78.4 OTHER HYPERLIPIDEMIA 02/02/2017 KYARA MAHAJAN FACC, ALI FACP CCDS Ot I10 ESSENTIAL (PRIMARY) HYPERTENSION 02/02/2017 KYARA MAHAJAN FACC, ALI FACP CCDS Ot 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 02/02/2017 KYARA MAHAJAN FACC, ALI FACP CCDS Ot 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 02/02/2017 KYRAA MAHAJAN FACC, ALI FACP CCDS Ot I70.213 ATHSCL [place] ARTERIES OF EXTRM W INTRMT 02/02/2017 KYARA MAHAJAN FACC, ALI FACP CCDS Ot J43.8 OTHER EMPHYSEMA 02/02/2017 KYARA MAHAJAN FACC, ALI FAC CCDS Ot R06.02 SHORTNESS OF BREATH 02/02/2017 KYARA MAHAJAN [facility] CCDS Ot Z87.891 PERSONAL HISTORY OF NICOTINE DEPENDENCE 05/02/2017 SEEMA BALDWIN DOLINE S Ot E66.01 MORBID (SEVERE) OBESITY DUE TO EXCESS CA 05/02/2017 GILNDER , HAYLEE S Ot E86.0 DEHYDRATION 05/02/2017 SEEMA BALDWIN DOLINE S Ot 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 05/02/2017 GILNDER , HAYLEE S Ot I70.0 ATHEROSCLEROSIS OF [place] 05/02/2017 GILNDSHAHRZAD RESENDIZ, HAYLEE S Ot K55.1 CHRONIC VASCULAR DISORDERS OF INTESTINE 05/02/2017 KEITHER DO HAYLEE S Ot M54.9 DORSALGIA, UNSPECIFIED 05/02/2017 GILNDER HAYLEE S Ot N17.0 ACUTE KIDNEY FAILURE WITH TUBULAR NECROS 05/02/2017 GILNDER HAYLEE S Ot N28.9 DISORDER OF KIDNEY AND URETER, UNSPECIFI 05/02/2017 GILNDER DO HAYLEE S Ot R07.9 CHEST PAIN, UNSPECIFIED 05/02/2017 GILNDER DO, HAYLEE S Ot R10.13 EPIGASTRIC PAIN 05/02/2017 NICOLASA RESENDIZ, HAYLEE S Ot R41.82 ALTERED MENTAL STATUS, UNSPECIFIED 05/02/2017 GILNDER , HAYLEE S Ot R53.83 OTHER FATIGUE 05/02/2017 GILNDER HAYLEE S Ot R57.9 SHOCK, UNSPECIFIED 05/02/2017 GILNDER DO, HAYLEE S Ot T40.2X5A ADVERSE EFFECT OF OTHER OPIOIDS, INITIAL 05/02/2017 GILNDER , HAYLEE S Ot T40.4X5A ADVERSE EFFECT OF OTHER SYNTHETIC NARCOT 05/02/2017 GILNDSHAHRZAD RESENDIZ, HAYLEE S Ot Z68.42 BODY MASS INDEX (BMI) 45.0-49.9, ADULT 05/02/2017 GILNDER HAYLEE S Ot Z95.1 PRESENCE OF AORTOCORONARY BYPASS GRAFT 05/02/2017 KEITHSHAHRZAD RESENDIZ HAYLEE S Ot Z95.5 PRESENCE OF CORONARY ANGIOPLASTY IMPLANT 05/02/2017 SEEMA BALDWIN DOLINE S Ot Z98.890 OTHER SPECIFIED POSTPROCEDURAL STATES 05/02/2017 HAYLEE BALDWIN DO S Ot E66.01 MORBID (SEVERE) OBESITY DUE TO EXCESS CA 05/02/2017 SEEMA BALDWIN DOLINE S Ot E86.0 DEHYDRATION 05/02/2017 SEEMA BALDWIN DOLINE S Ot 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 05/02/2017 SEEMA BALDWIN DOLINE S Ot I70.0 ATHEROSCLEROSIS OF [place] 05/02/2017 SEEMA BALDWIN DOLINE S Ot K55.1 CHRONIC VASCULAR DISORDERS OF INTESTINE 05/02/2017 SEEMA BALDWIN DOLINE S Ot M54.9 DORSALGIA, UNSPECIFIED 05/02/2017 SEEMA BALDWIN DOLINE S Ot N17.0 ACUTE KIDNEY FAILURE WITH TUBULAR NECROS 05/02/2017 SEEMA BALDWIN DOLINE S Ot N28.9 DISORDER OF KIDNEY AND URETER, UNSPECIFI 05/02/2017 NICOLASA RESENDIZ HAYLEE S Ot R07.9 CHEST PAIN, UNSPECIFIED 05/02/2017 NICOLASA RESENDIZ HAYLEE S Ot R10.13 EPIGASTRIC PAIN 05/02/2017 SEEMA BALDWIN DOLINE S Ot R41.82 ALTERED MENTAL STATUS, UNSPECIFIED 05/02/2017 SEEMA BALDWIN DOLINE S Ot R53.83 OTHER FATIGUE 05/02/2017 SEEMA BALDWIN DOLINE S Ot R57.9 SHOCK, UNSPECIFIED 05/02/2017 NICOLASA RESENDIZ HAYLEE S Ot T40.2X5A ADVERSE EFFECT OF OTHER OPIOIDS, INITIAL 05/02/2017 SEEMA BALDWIN DOLINE S Ot T40.4X5A ADVERSE EFFECT OF OTHER SYNTHETIC NARCOT 05/02/2017 SEEMA BALDWIN DOLINE S Ot Z68.42 BODY MASS INDEX (BMI) 45.0-49.9, ADULT 05/02/2017 SEEMA BALDWIN DOLINE S Ot Z95.1 PRESENCE OF AORTOCORONARY BYPASS GRAFT 05/02/2017 NICOLASA RESENDIZ HAYLEE S Ot Z95.5 PRESENCE OF CORONARY ANGIOPLASTY IMPLANT 05/02/2017 NICOLASA RESENDIZ HAYLEE S Ot Z98.890 OTHER SPECIFIED POSTPROCEDURAL STATES 05/03/2017 GILNDER SEEMA RESENDIZLINE S Ot E66.01 MORBID (SEVERE) OBESITY DUE TO EXCESS CA 05/03/2017 NICOLASA RESENDIZ, HAYLEE S Ot E86.0 DEHYDRATION 05/03/2017 KEITHER , HAYLEE S Ot 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 05/03/2017 SEEMA BALDWIN DOLINE S Ot I70.0 ATHEROSCLEROSIS OF [place] 05/03/2017 SEEMA BALDWIN DOLINE S Ot K55.1 CHRONIC VASCULAR DISORDERS OF INTESTINE 05/03/2017 KEITHER , HAYLEE S Ot M54.9 DORSALGIA, UNSPECIFIED 05/03/2017 GILNDER , HAYLEE S Ot N17.0 ACUTE KIDNEY FAILURE WITH TUBULAR NECROS 05/03/2017 KEITHER , HAYLEE S Ot N28.9 DISORDER OF KIDNEY AND URETER, UNSPECIFI 05/03/2017 KEITHER HAYLEE S Ot R07.9 CHEST PAIN, UNSPECIFIED 05/03/2017 KEITHER , HAYLEE S Ot R10.13 EPIGASTRIC PAIN 05/03/2017 NICOLASA RESENDIZ, HAYLEE S Ot R41.82 ALTERED MENTAL STATUS, UNSPECIFIED 05/03/2017 NICOLASA RESENDIZ, HAYLEE S Ot R53.83 OTHER FATIGUE 05/03/2017 NICOLASA RESENDIZ, HAYLEE S Ot R57.9 SHOCK, UNSPECIFIED 05/03/2017 SEEMA BALDWIN DOLINE S Ot T40.2X5A ADVERSE EFFECT OF OTHER OPIOIDS, INITIAL 05/03/2017 SEEMA BALDWIN DOLINE S Ot T40.4X5A ADVERSE EFFECT OF OTHER SYNTHETIC NARCOT 05/03/2017 NICOLASA RESENDIZ, HAYLEE S Ot Z68.42 BODY MASS INDEX (BMI) 45.0-49.9, ADULT 05/03/2017 NICOLASA RESENDIZ HAYLEE S Ot Z95.1 PRESENCE OF AORTOCORONARY BYPASS GRAFT 05/03/2017 NICOLASA RESENDIZ, HAYLEE S Ot Z95.5 PRESENCE OF CORONARY ANGIOPLASTY IMPLANT 05/03/2017 NICOLASA RESENDIZ HAYLEE S Ot Z98.890 OTHER SPECIFIED POSTPROCEDURAL STATES 05/04/2017 ORENDER DO, HAYLEE S Ot E66.01 MORBID (SEVERE) OBESITY DUE TO EXCESS CA 05/04/2017 GILNDSEEMA MARKHAM DOLINE S Ot E86.0 DEHYDRATION 05/04/2017 NICOLASA RESENDIZ HAYLEE S Ot 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 05/04/2017 SEEMA BALDWIN DOLINE S Ot I70.0 ATHEROSCLEROSIS OF [place] 05/04/2017 HAYLEE BALDWIN DO S Ot K55.1 CHRONIC VASCULAR DISORDERS OF INTESTINE 05/04/2017 GILNDER HAYLEE S Ot M54.9 DORSALGIA, UNSPECIFIED 05/04/2017 GILNDER HAYLEE S Ot N17.0 ACUTE KIDNEY FAILURE WITH TUBULAR NECROS 05/04/2017 NICOLASA RESENDIZ HAYLEE S Ot N28.9 DISORDER OF KIDNEY AND URETER, UNSPECIFI 05/04/2017 NICOLASA RESENDIZ HAYLEE S Ot R07.9 CHEST PAIN, UNSPECIFIED 05/04/2017 NICOLASA RESENDIZ HAYLEE S Ot R10.13 EPIGASTRIC PAIN 05/04/2017 NICOLASA RESENDIZ HAYLEE S Ot R41.82 ALTERED MENTAL STATUS, UNSPECIFIED 05/04/2017 NICOLASA RESENDIZ HAYLEE S Ot R53.83 OTHER FATIGUE 05/04/2017 NICOLASA RESENDIZ HAYLEE S Ot R57.9 SHOCK, UNSPECIFIED 05/04/2017 NICOLASA RESENDIZ HAYLEE S Ot T40.2X5A ADVERSE EFFECT OF OTHER OPIOIDS, INITIAL 05/04/2017 NICOLASA RESNEDIZ HAYLEE S Ot T40.4X5A ADVERSE EFFECT OF OTHER SYNTHETIC NARCOT 05/04/2017 NICOLASA RESENDIZ HAYLEE S Ot Z68.42 BODY MASS INDEX (BMI) 45.0-49.9, ADULT 05/04/2017 NICOLASA RESENDIZ HAYLEE S Ot Z95.1 PRESENCE OF AORTOCORONARY BYPASS GRAFT 05/04/2017 KEITHSHAHRZAD RESENDIZ HAYLEE S Ot Z95.5 PRESENCE OF CORONARY ANGIOPLASTY IMPLANT 05/04/2017 KEITHSHAHRZAD RESENDIZ HAYLEE S Ot Z98.890 OTHER SPECIFIED POSTPROCEDURAL STATES 05/05/2017 KEITHSHAHRZAD RESENDIZ HAYLEE S Ot E66.01 MORBID (SEVERE) OBESITY DUE TO EXCESS CA 05/05/2017 SEEMA BALDWIN DOLINE S Ot E86.0 DEHYDRATION 05/05/2017 SEEMA BALDWIN DOLINE S Ot 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 05/05/2017 SEEMA BALDWIN DOLINE S Ot I70.0 ATHEROSCLEROSIS OF [place] 05/05/2017 NICOLASA RESENDIZ HAYLEE S Ot K55.1 CHRONIC VASCULAR DISORDERS OF INTESTINE 05/05/2017 NICOLASA RESENDIZ HAYLEE S Ot M54.9 DORSALGIA, UNSPECIFIED 05/05/2017 NICOLASA RESENDIZ HAYLEE S Ot N17.0 ACUTE KIDNEY FAILURE WITH TUBULAR NECROS 05/05/2017 NICOLASA RESENDIZ HAYLEE S Ot N28.9 DISORDER OF KIDNEY AND URETER, UNSPECIFI 05/05/2017 NICOLASA RESENDIZ HAYLEE S Ot R07.9 CHEST PAIN, UNSPECIFIED 05/05/2017 NICOLASA RESENDIZ HAYLEE S Ot R10.13 EPIGASTRIC PAIN 05/05/2017 NICOLASA RESENDIZ HAYLEE S Ot R41.82 ALTERED MENTAL STATUS, UNSPECIFIED 05/05/2017 NICOLASA RESENDIZ HAYLEE S Ot R53.83 OTHER FATIGUE 05/05/2017 NICOLASA RESENDIZ HAYLEE S Ot R57.9 SHOCK, UNSPECIFIED 05/05/2017 NICOLASA RESENDIZ HAYLEE S Ot T40.2X5A ADVERSE EFFECT OF OTHER OPIOIDS, INITIAL 05/05/2017 NICOLASA RESENDIZ HAYLEE S Ot T40.4X5A ADVERSE EFFECT OF OTHER SYNTHETIC NARCOT 05/05/2017 GILFRANCISCO RESENDIZ HAYLEE S Ot Z68.42 BODY MASS INDEX (BMI) 45.0-49.9, ADULT 05/05/2017 GILFRANCISCO RESENDIZ HAYLEE S Ot Z95.1 PRESENCE OF AORTOCORONARY BYPASS GRAFT 05/05/2017 KEITHSHAHRZAD RESENDIZ HAYLEE S Ot Z95.5 PRESENCE OF CORONARY ANGIOPLASTY IMPLANT 05/05/2017 KEITHSHAHRZAD RESENDIZ HAYLEE S Ot Z98.890 OTHER SPECIFIED POSTPROCEDURAL STATES 05/06/2017 KEITHSHAHRZAD RESENDIZ HAYLEE S Ot E66.01 MORBID (SEVERE) OBESITY DUE TO EXCESS CA 05/06/2017 GILCONORSHAHRZAD RESENDIZ HAYLEE S Ot E86.0 DEHYDRATION 05/06/2017 NICOLASA RESENDIZ HAYLEE S Ot 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 05/06/2017 NICOLASA RESENDIZ HAYLEE S Ot I70.0 ATHEROSCLEROSIS OF [place] 05/06/2017 NICOLASA RESENDIZ HAYLEE S Ot K55.1 CHRONIC VASCULAR DISORDERS OF INTESTINE 05/06/2017 NICOLASA RESENDIZ HAYLEE S Ot M54.9 DORSALGIA, UNSPECIFIED 05/06/2017 NICOLASA RESENDIZ HAYLEE S Ot N17.0 ACUTE KIDNEY FAILURE WITH TUBULAR NECROS 05/06/2017 NICOLASA RESENDIZ HAYLEE S Ot N28.9 DISORDER OF KIDNEY AND URETER, UNSPECIFI 05/06/2017 NICOLASA RESENDIZ HAYLEE S Ot R07.9 CHEST PAIN, UNSPECIFIED 05/06/2017 NICOLASA RESENDIZ HAYLEE S Ot R10.13 EPIGASTRIC PAIN 05/06/2017 NICOLASA RESENDIZ HAYLEE S Ot R41.82 ALTERED MENTAL STATUS, UNSPECIFIED 05/06/2017 NICOLASA RESENDIZ HAYLEE S Ot R53.83 OTHER FATIGUE 05/06/2017 NICOLASA RESENDIZ HAYLEE S Ot R57.9 SHOCK, UNSPECIFIED 05/06/2017 NICOLASA RESENDIZ HAYLEE S Ot T40.2X5A ADVERSE EFFECT OF OTHER OPIOIDS, INITIAL 05/06/2017 NICOLASA RESENDIZ HAYLEE S Ot T40.4X5A ADVERSE EFFECT OF OTHER SYNTHETIC NARCOT 05/06/2017 GILFRANCISCO RESENDIZ HAYLEE S Ot Z68.42 BODY MASS INDEX (BMI) 45.0-49.9, ADULT 05/06/2017 KEITHSHAHRZAD DO HAYLEE S Ot Z95.1 PRESENCE OF AORTOCORONARY BYPASS GRAFT 05/06/2017 KEITHSHAHRZAD DO HAYLEE S Ot Z95.5 PRESENCE OF CORONARY ANGIOPLASTY IMPLANT 05/06/2017 KEITHSHAHRZAD DO HAYLEE S Ot Z98.890 OTHER SPECIFIED POSTPROCEDURAL STATES 05/06/2017 KEITHSHAHRZAD DO HAYLEE S Ot E66.01 MORBID (SEVERE) OBESITY DUE TO EXCESS CA 05/06/2017 KEITHSHAHRZAD DO HAYLEE S Ot E86.0 DEHYDRATION 05/06/2017 NICOLASA RESENDIZ HAYLEE S Ot E87.70 FLUID OVERLOAD, UNSPECIFIED 05/06/2017 ORENDER DO, HYALEE S Ot G47.33 OBSTRUCTIVE SLEEP APNEA (ADULT) (PEDIATR 05/06/2017 ORENDER DO, HAYLEE S Ot I10 ESSENTIAL (PRIMARY) HYPERTENSION 05/06/2017 ORENDER DO, HAYLEE S Ot 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 05/06/2017 ORENDER DO, HAYLEE S Ot I70.0 ATHEROSCLEROSIS OF [place] 05/06/2017 ORENDER DO, HAYLEE S Ot I95.9 HYPOTENSION, UNSPECIFIED 05/06/2017 ORENDER DO, HAYLEE S Ot J18.9 PNEUMONIA, UNSPECIFIED ORGANISM 05/06/2017 ORENDER DO, HAYLEE S Ot J20.9 ACUTE BRONCHITIS, UNSPECIFIED 05/06/2017 ORENDER DO, HAYLEE S Ot J44.0 CHRONIC OBSTRUCTIVE PULMON DISEASE W ACU 05/06/2017 ORENDER DO HAYLEE S Ot J44.1 CHRONIC OBSTRUCTIVE PULMONARY DISEASE W 05/06/2017 GILNDER DOKARIMEHAYLEE S Ot J81.1 CHRONIC PULMONARY EDEMA 05/06/2017 ORENDER DO HAYLEE S Ot K21.9 GASTRO-ESOPHAGEAL REFLUX DISEASE WITHOUT 05/06/2017 ORENDER DO, HAYLEE S Ot K55.1 CHRONIC VASCULAR DISORDERS OF INTESTINE 05/06/2017 GILNDER DO, HAYLEE S Ot K59.00 CONSTIPATION, UNSPECIFIED 05/06/2017 ORENDER DO, HAYLEE S Ot M54.9 DORSALGIA, UNSPECIFIED 05/06/2017 ORENDER DO, HAYLEE S Ot N17.0 ACUTE KIDNEY FAILURE WITH TUBULAR NECROS 05/06/2017 ORENDER DO, HAYLEE S Ot N28.9 DISORDER OF KIDNEY AND URETER, UNSPECIFI 05/06/2017 ORENDER DO, HAYLEE S Ot R07.9 CHEST PAIN, UNSPECIFIED 05/06/2017 ORENDER DO, HAYLEE S Ot R33.9 RETENTION OF URINE, UNSPECIFIED 05/06/2017 ORENDER DO, HAYLEE S Ot R41.82 ALTERED MENTAL STATUS, UNSPECIFIED 05/06/2017 ORENDER DO, HAYLEE S Ot R53.83 OTHER FATIGUE 05/06/2017 ORENDER DO, HAYLEE S Ot R57.8 OTHER SHOCK 05/06/2017 SEEMA BALDWIN DOLINE S Ot R57.9 SHOCK, UNSPECIFIED 05/06/2017 SEEMA BALDWIN DOLINE S Ot R94.31 ABNORMAL ELECTROCARDIOGRAM [ECG] [EKG] 05/06/2017 HAYLEE BALDWIN DO Ot T40.2X5A ADVERSE EFFECT OF OTHER OPIOIDS, INITIAL 05/06/2017 SEEMA BALDWIN DOLINE S Ot T40.4X5A ADVERSE EFFECT OF OTHER SYNTHETIC NARCOT 05/06/2017 SEEMA BALDWIN DOLINE S Ot Z66 DO NOT RESUSCITATE 05/06/2017 SEEMA BALDWIN DOLINE S Ot Z68.42 BODY MASS INDEX (BMI) 45.0-49.9, ADULT 05/06/2017 SEEMA BALDWIN DOLINE S Ot Z95.1 PRESENCE OF AORTOCORONARY BYPASS GRAFT 05/06/2017 SEEMA BALDWIN DOLINE S Ot Z95.5 PRESENCE OF CORONARY ANGIOPLASTY IMPLANT 05/06/2017 SEEMA BALDWIN DOLINE S Ot Z98.890 OTHER SPECIFIED POSTPROCEDURAL STATES 05/20/2017 MYRNA PANDYA TECHNOLOGY PROGRAM MANAGER Ot J43.8 OTHER EMPHYSEMA 05/20/2017 MYRNA PANDYA TECHNOLOGY PROGRAM MANAGER Ot R09.02 HYPOXEMIA 05/22/2017 KRANTHI PANDYAINE E TECHNOLOGY PROGRAM MANAGER Ot G47.33 OBSTRUCTIVE SLEEP APNEA (ADULT) (PEDIATR 05/23/2017 KRANTHI PANDYAINE E TECHNOLOGY PROGRAM MANAGER Ot G47.33 OBSTRUCTIVE SLEEP APNEA (ADULT) (PEDIATR 05/24/2017 MUMTAZ MYRNA E TECHNOLOGY PROGRAM MANAGER Ot G47.33 OBSTRUCTIVE SLEEP APNEA (ADULT) (PEDIATR 05/24/2017 MUMTAZ MYRNA E TECHNOLOGY PROGRAM MANAGER Ot G47.50 PARASOMNIA, UNSPECIFIED 05/24/2017 MUMTAZ MYRNA E TECHNOLOGY PROGRAM MANAGER Ot R09.02 HYPOXEMIA 05/25/2017 MYRNA PANDYA E TECHNOLOGY PROGRAM MANAGER Ot G47.33 OBSTRUCTIVE SLEEP APNEA (ADULT) (PEDIATR 05/25/2017 MUMTAZ MYRNA E TECHNOLOGY PROGRAM MANAGER Ot G47.50 PARASOMNIA, UNSPECIFIED 05/25/2017 MYRNA PANDYA TECHNOLOGY PROGRAM MANAGER Ot R09.02 HYPOXEMIA 05/27/2017 KYARA MAHAJAN FACC, JIM FLORES CCDS Ot E78.4 OTHER HYPERLIPIDEMIA 05/27/2017 KYARA MAHAJAN FACC, ALI FACP CCDS Ot I10 ESSENTIAL (PRIMARY) HYPERTENSION 05/27/2017 KYARA MAHAJAN FACC, ALI FACP CCDS Ot 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 05/27/2017 KYARA MAHAJAN FACC, ALI FACP CCDS Ot 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 05/27/2017 KYARA MAHAJAN FACC, ALI FACP CCDS Ot I95.2 HYPOTENSION DUE TO DRUGS 05/27/2017 KYARA MAHAJAN FACC, ALI FACP CCDS Ot J43.8 OTHER EMPHYSEMA 05/27/2017 KYARA MAHAJAN FACC, ALI FACP CCDS Ot E78.4 OTHER HYPERLIPIDEMIA 05/27/2017 KYARA MAHAJAN FACC, ALI FACP CCDS Ot I10 ESSENTIAL (PRIMARY) HYPERTENSION 05/27/2017 KYARA MAHAJAN FACC, ALI FACP CCDS Ot 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 05/27/2017 KYARA MAHAJAN FACC, ALI FACP CCDS Ot 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 05/27/2017 KYARA MAHAJAN FACC, ALI FACP CCDS Ot I95.2 HYPOTENSION DUE TO DRUGS 05/27/2017 KYARA MAHAJAN FACC, ALI FACP CCDS Ot J43.8 OTHER EMPHYSEMA 06/16/2017 KYARA MAHAJAN FACC, ALI FACP CCDS Ot E78.4 OTHER HYPERLIPIDEMIA 06/16/2017 KYARA MAHAJAN FACC, ALI FACP CCDS Ot I10 ESSENTIAL (PRIMARY) HYPERTENSION 06/16/2017 KYARA MAHAJAN FACC, ALI FACP CCDS Ot 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 06/16/2017 KYARA MAHAJAN FACC, ALI FACP CCDS Ot 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 06/16/2017 KYARA MAHAJAN FACC, ALI FACP CCDS Ot I95.2 HYPOTENSION DUE TO DRUGS 06/16/2017 KYARA MAHAJAN FACC, ALI FACP CCDS Ot J43.8 OTHER EMPHYSEMA 06/29/2017 KYARA MAHAJAN FACC, ALI FACP CCDS Ot E78.4 OTHER HYPERLIPIDEMIA 06/29/2017 KYARA MAHAJAN FACC, ALI FACP CCDS Ot I10 ESSENTIAL (PRIMARY) HYPERTENSION 06/29/2017 KYARA MAHAJAN FACC, ALI FACP CCDS Ot 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 06/29/2017 KYARA MAHAJAN FACC, ALI FACP CCDS Ot 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 06/29/2017 KYARA MAHAJAN FACC, ALI FACP CCDS Ot I95.2 HYPOTENSION DUE TO DRUGS 06/29/2017 KYARA MAHAJAN FACC, ALI FACP CCDS Ot J43.8 OTHER EMPHYSEMA 06/29/2017 KYARA MAHAJAN FACC, ALI FACP CCDS Ot E78.4 OTHER HYPERLIPIDEMIA 06/29/2017 KYARA MAHAJAN FACC, ALI FACP CCDS Ot I10 ESSENTIAL (PRIMARY) HYPERTENSION 06/29/2017 KYARA MAHAJAN FACC, ALI FACP CCDS Ot 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 06/29/2017 KYARA MAHAJAN FACC, ALI FACP CCDS Ot 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 06/29/2017 KYARA MAHAJAN FACC, ALI FACP CCDS Ot I95.2 HYPOTENSION DUE TO DRUGS 06/29/2017 KYARA MAHAJAN FAC, ALI FACP CCDS Ot J43.8 OTHER EMPHYSEMA 07/08/2017 MYRNA PANDYA TECHNOLOGY PROGRAM MANAGER Ot J43.8 OTHER EMPHYSEMA 07/08/2017 MYRNA PANDYA TECHNOLOGY PROGRAM MANAGER Ot R09.02 HYPOXEMIA 07/27/2017 MYRNA PANDYA TECHNOLOGY PROGRAM MANAGER Ot J43.8 OTHER EMPHYSEMA 07/27/2017 MYRNA PANDYA TECHNOLOGY PROGRAM MANAGER Ot R09.02 HYPOXEMIA 12/15/2017 Ot 241.0 NONTOX UNINODULAR GOITER 12/15/2017 Ot 719.45 JOINT PAIN- PELVIS 12/15/2017 JERONIMO PITTMAN MD Ot 241.0 NONTOX UNINODULAR GOITER 12/15/2017 JERONIMO PITTMAN MD Ot 241.0 NONTOX UNINODULAR GOITER 12/15/2017 JERONIMO PITTMAN MD Ot V72.63 PRE-PROCEDURAL LABORATORY EXAMINATION 12/15/2017 JERONIMO PITTMAN MD Ot V72.81 [id number] CARDIOVASCULAR 12/15/2017 JERONIMO PITTMAN MD Ot V74.8 SCREEN-BACTERIAL DIS NEC 12/15/2017 MERCEDES SMART MD Ot V72.84 EXAM PRE-OPERATIVE NOS 12/15/2017 MERCEDES SMART MD Ot 787.91 DIARRHEA 12/15/2017 MERCEDES SMART MD Ot 789.1 HEPATOMEGALY 12/15/2017 MERCEDES SMART MD Ot 787.3 FLATUL/ERUCTAT/GAS PAIN 12/15/2017 MERCEDES SMART MD Ot 787.91 DIARRHEA 12/15/2017 MERCEDES SMART MD Ot 789.00 ABDOMINAL PAIN, UNSPECIFIED SITE 12/15/2017 KYARA MAHAJAN FAC, ALI FACP CCDS Ot 414.01 CORONARY ATHEROSCLEROSIS OF THE [place] CORON 12/15/2017 KYARA MAHAJAN FAC, ALI FACP CCDS Ot 786.50 CHEST PAIN NOS 12/15/2017 Ot 787.91 DIARRHEA 12/15/2017 CHENG FATIMA DO Ot 787.91 DIARRHEA 12/15/2017 Ot 787.91 DIARRHEA 12/15/2017 MERCEDES SMART MD Ot V72.84 EXAM PRE-OPERATIVE NOS 12/15/2017 ERICK NASH BUSINESS EMPLOYMENT SPECIALIST Ot E78.5 HYPERLIPIDEMIA, UNSPECIFIED 12/15/2017 ERICK NASH L BUSINESS EMPLOYMENT SPECIALIST Ot I10 ESSENTIAL (PRIMARY) HYPERTENSION 12/15/2017 ERICK NASH L BUSINESS EMPLOYMENT SPECIALIST Ot 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 12/15/2017 ERICK NASH L BUSINESS EMPLOYMENT SPECIALIST Ot I73.9 PERIPHERAL VASCULAR DISEASE, UNSPECIFIED 12/15/2017 ERICK NASH L BUSINESS EMPLOYMENT SPECIALIST Ot I77.9 DISORDER OF ARTERIES AND ARTERIOLES, UNS 12/15/2017 ERICK NASH L BUSINESS EMPLOYMENT SPECIALIST Ot R07.9 CHEST PAIN, UNSPECIFIED 12/15/2017 HAYLEE BALDWIN DO Ot E04.1 NONTOXIC SINGLE THYROID NODULE 12/15/2017 YAYA MARIE MD Ot M54.5 LOW BACK PAIN 12/15/2017 YAYA MARIE MD Ot M54.6 PAIN IN THORACIC SPINE 12/15/2017 YAYA MARIE MD Ot M47.816 SPONDYLOSIS W/O MYELOPATHY OR RADICULOPA 12/15/2017 YAYA MARIE MD Ot M51.16 INTERVERTEBRAL DISC DISORDERS W RADICULO 12/15/2017 YAYA MARIE MD Ot Z79.899 OTHER SENIOR LIVING (CURRENT) DRUG THERAPY 12/15/2017 LATRICIA ALVARES APRN Ot 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, OCCIPT- 12/15/2017 DIA, ALTRICIA N TECHNOLOGY PROGRAM MANAGER Ot R91.1 SOLITARY PULMONARY NODULE 12/15/2017 LATRICIA ALVARES TECHNOLOGY PROGRAM MANAGER Ot R05 COUGH 12/15/2017 LATRICIA ALVARES TECHNOLOGY PROGRAM MANAGER Ot R09.89 OTH SYMPTOMS AND SIGNS INVOLVING THE CIR 12/15/2017 KYARA MAHAJAN FACC, ALI FACP CCDS Ot E78.4 OTHER HYPERLIPIDEMIA 12/15/2017 KYARA MAHAJAN FACC, ALI FACP CCDS Ot I10 ESSENTIAL (PRIMARY) HYPERTENSION 12/15/2017 KYARA MAHAJAN FACC, ALI FACP CCDS Ot 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 12/15/2017 KYARA MAHAJAN FACC, ALI FACP CCDS Ot 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 12/15/2017 KYARA MAHAJAN FACC, ALI FACP CCDS Ot I70.213 ATHSCL [place] ARTERIES OF EXTRM W INTRMT 12/15/2017 KYARA MAHAJAN FACC, ALI FACP CCDS Ot J43.8 OTHER EMPHYSEMA 12/15/2017 KYARA MAHAJAN FACC, ALI FACP CCDS Ot R06.02 SHORTNESS OF BREATH 12/15/2017 KYARA MAHAJAN FACC, ALI FACP CCDS Ot Z87.891 PERSONAL HISTORY OF NICOTINE DEPENDENCE 12/15/2017 MYRNA PANDYA APRN Ot J43.8 OTHER EMPHYSEMA 12/15/2017 MYRNA PANDYA APRN Ot R09.02 HYPOXEMIA 12/15/2017 KYARA MAHAJAN FACC, ALI FACP CCDS Ot E78.4 OTHER HYPERLIPIDEMIA 12/15/2017 KYARA MAHAJAN FACC, ALI FACP CCDS Ot I10 ESSENTIAL (PRIMARY) HYPERTENSION 12/15/2017 KYARA MAHAJAN FACC, ALI FACP CCDS Ot 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 12/15/2017 KYARA MAHAJAN FACC, ALI FACP CCDS Ot 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 12/15/2017 KYARA MAHAJAN FACC, ALI FACP CCDS Ot I95.2 HYPOTENSION DUE TO DRUGS 12/15/2017 KYARA MAHAJAN FACC, ALI FACP CCDS Ot J43.8 OTHER EMPHYSEMA Procedures Code Description Performed By Performed On 01.29 THYROID FIELD ASPIRATION 12/23/2012 Results Test Result Range Automated blood complete blood count (hemogram) panel - 12/11/16 15:09 Blood leukocytes automated count (number/volume) 18.0 10*3/uL 4.3-11.0 Blood erythrocytes automated count (number/volume) 4.67 10*6/uL 4.35-5.85 Venous blood hemoglobin measurement (mass/volume) 14.0 g/dL 13.3-17.7 Blood hematocrit (volume fraction) 43 % 40-54 Automated erythrocyte mean corpuscular volume 92 [foz_us] 80-99 Automated erythrocyte mean corpuscular hemoglobin (mass per erythrocyte) 30 pg 25-34 Automated erythrocyte mean corpuscular hemoglobin concentration measurement ( mass/volume) 33 g/dL 32-36 Automated erythrocyte distribution width ratio 15.0 % 10.0-14.5 Automated blood platelet count (count/volume) 189 10*3/uL 130-400 Automated blood platelet mean volume measurement 10.0 [foz_us] 7.4-10.4 Complete blood count (CBC) with automated white blood cell (WBC) differential - 12/25/16 10:46 Blood leukocytes automated count (number/volume) 9.1 10*3/uL 4.3-11.0 Blood erythrocytes automated count (number/volume) 4.82 10*6/uL 4.35-5.85 Venous blood hemoglobin measurement (mass/volume) 14.6 g/dL 13.3-17.7 Blood hematocrit (volume fraction) 44 % 40-54 Automated erythrocyte mean corpuscular volume 91 [foz_us] 80-99 Automated erythrocyte mean corpuscular hemoglobin (mass per erythrocyte) 30 pg 25-34 Automated erythrocyte mean corpuscular hemoglobin concentration measurement ( mass/volume) 33 g/dL 32-36 Automated erythrocyte distribution width ratio 14.9 % 10.0-14.5 Automated blood platelet count (count/volume) 212 10*3/uL 130-400 Automated blood platelet mean volume measurement 9.9 [foz_us] 7.4-10.4 Automated blood neutrophils/100 leukocytes 67 % 42-75 Automated blood lymphocytes/100 leukocytes 16 % 12-44 Blood monocytes/100 leukocytes 15 % 0-12 Automated blood eosinophils/100 leukocytes 2 % 0-10 Automated blood basophils/100 leukocytes 0 % 0-10 Blood neutrophils automated count (number/volume) 6.0 10*3 1.8-7.8 Blood lymphocytes automated count (number/volume) 1.5 10*3 1.0-4.0 Blood monocytes automated count (number/volume) 1.4 10*3 0.0-1.0 Automated eosinophil count 0.1 10*3/uL 0.0-0.3 Automated blood basophil count (count/volume) 0.0 10*3/uL 0.0-0.1 PT panel in platelet poor plasma by coagulation assay - 12/25/16 10:46 Prothrombin time (PT) in platelet poor plasma by coagulation assay 12.9 s 12.2-14.7 INR in platelet poor plasma or blood by coagulation assay 1.0 0.8-1.4 Activated partial thromboplastin time (aPTT) in platelet poor plasma bycoagulation assay - 12/25/16 10:46 Activated partial thromboplastin time (aPTT) in platelet poor plasma bycoagulation assay 26 s 24-35 Blood lactic acid measurement (moles/volume) - 12/25/16 10:46 Blood lactic acid measurement (moles/volume) 1.12 mmol/L 0.50-2.00 Comprehensive metabolic panel - 12/25/16 10:46 Serum or plasma sodium measurement (moles/volume) 136 mmol/L 135-145 Serum or plasma potassium measurement (moles/volume) 4.8 mmol/L 3.6-5.0 Serum or plasma chloride measurement (moles/volume) 105 mmol/L 98-107 Carbon dioxide 24 mmol/L 21-32 Serum or plasma anion gap determination (moles/volume) 7 mmol/L 5-14 Serum or plasma urea nitrogen measurement (mass/volume) 38 mg/dL 7-18 Serum or plasma creatinine measurement (mass/volume) 1.03 mg/dL 0.60-1.30 Serum or plasma urea nitrogen/creatinine mass ratio 37 NRG Serum or plasma creatinine measurement with calculation of estimated glomerular filtration rate > NRG Serum or plasma glucose measurement (mass/volume) 96 mg/dL 70-105 Serum or plasma calcium measurement (mass/volume) 8.4 mg/dL 8.5-10.1 Serum or plasma total bilirubin measurement (mass/volume) 0.8 mg/dL 0.1-1.0 Serum or plasma alkaline phosphatase measurement (enzymatic activity/volume) 71 U/L 40-136 Serum or plasma aspartate aminotransferase measurement (enzymatic activity/ volume) 22 U/L 5-34 Serum or plasma alanine aminotransferase measurement (enzymatic activity/volume ) 44 U/L 0-55 Serum or plasma protein measurement (mass/volume) 6.0 g/dL 6.4-8.2 Serum or plasma albumin measurement (mass/volume) 3.3 g/dL 3.2-4.5 Serum or plasma troponin i.cardiac measurement (mass/volume) - 12/25/16 10:46 Serum or plasma troponin i.cardiac measurement (mass/volume) < ng/ mL <0.30 Bacterial blood culture - 12/25/16 10:46 Bacterial blood culture NG NRG Bacterial blood culture - 12/25/16 10:58 Bacterial blood culture NG NRG Complete urinalysis with reflex to culture - 12/25/16 11:23 Urine color determination YELLOW NRG Urine clarity determination CLEAR NRG Urine pH measurement by test strip 6 5-9 Specific gravity of urine by test strip 1.015 1.016- 1.022 Urine protein assay by test strip, semi-quantitative NEGATIVE NEGATIVE Urine glucose detection by automated test strip NEGATIVE NEGATIVE Erythrocytes detection in urine sediment by light microscopy NEGATIVE NEGATIVE Urine ketones detection by automated test strip NEGATIVE NEGATIVE Urine nitrite detection by test strip NEGATIVE NEGATIVE Urine total bilirubin detection by test strip NEGATIVE NEGATIVE Urine urobilinogen measurement by automated test strip (mass/volume) NORMAL NORMAL Urine leukocyte esterase detection by dipstick NEGATIVE NEGATIVE Automated urine sediment erythrocyte count by microscopy (number/high power field) NONE NRG Automated urine sediment leukocyte count by microscopy (number/high power field ) NONE NRG Bacteria detection in urine sediment by light microscopy NEGATIVE NRG Squamous epithelial cells detection in urine sediment by light microscopy 0-2 NRG Crystals detection in urine sediment by light microscopy NONE NRG Casts detection in urine sediment by light microscopy NONE NRG Mucus detection in urine sediment by light microscopy NEGATIVE NRG Complete urinalysis with reflex to culture NO NRG Complete blood count (CBC) with automated white blood cell (WBC) differential - 12/26/16 05:42 Blood leukocytes automated count (number/volume) 8.1 10*3/uL 4.3-11.0 Blood erythrocytes automated count (number/volume) 4.31 10*6/uL 4.35-5.85 Venous blood hemoglobin measurement (mass/volume) 13.0 g/dL 13.3-17.7 Blood hematocrit (volume fraction) 40 % 40-54 Automated erythrocyte mean corpuscular volume 93 [foz_us] 80-99 Automated erythrocyte mean corpuscular hemoglobin (mass per erythrocyte) 30 pg 25-34 Automated erythrocyte mean corpuscular hemoglobin concentration measurement ( mass/volume) 33 g/dL 32-36 Automated erythrocyte distribution width ratio 15.1 % 10.0-14.5 Automated blood platelet count (count/volume) 170 10*3/uL 130-400 Automated blood platelet mean volume measurement 10.3 [foz_us] 7.4-10.4 Automated blood neutrophils/100 leukocytes 61 % 42-75 Automated blood lymphocytes/100 leukocytes 23 % 12-44 Blood monocytes/100 leukocytes 15 % 0-12 Automated blood eosinophils/100 leukocytes 2 % 0-10 Automated blood basophils/100 leukocytes 0 % 0-10 Blood neutrophils automated count (number/volume) 5.0 10*3 1.8-7.8 Blood lymphocytes automated count (number/volume) 1.9 10*3 1.0-4.0 Blood monocytes automated count (number/volume) 1.2 10*3 0.0-1.0 Automated eosinophil count 0.1 10*3/uL 0.0-0.3 Automated blood basophil count (count/volume) 0.0 10*3/uL 0.0-0.1 Comprehensive metabolic panel - 12/26/16 05:42 Serum or plasma sodium measurement (moles/volume) 140 mmol/L 135-145 Serum or plasma potassium measurement (moles/volume) 4.9 mmol/L 3.6-5.0 Serum or plasma chloride measurement (moles/volume) 110 mmol/L 98-107 Carbon dioxide 23 mmol/L 21-32 Serum or plasma anion gap determination (moles/volume) 7 mmol/L 5-14 Serum or plasma urea nitrogen measurement (mass/volume) 29 mg/dL 7-18 Serum or plasma creatinine measurement (mass/volume) 0.92 mg/dL 0.60-1.30 Serum or plasma urea nitrogen/creatinine mass ratio 32 NRG Serum or plasma creatinine measurement with calculation of estimated glomerular filtration rate > NRG Serum or plasma glucose measurement (mass/volume) 89 mg/dL 70-105 Serum or plasma calcium measurement (mass/volume) 7.8 mg/dL 8.5-10.1 Serum or plasma total bilirubin measurement (mass/volume) 0.5 mg/dL 0.1-1.0 Serum or plasma alkaline phosphatase measurement (enzymatic activity/volume) 71 U/L 40-136 Serum or plasma aspartate aminotransferase measurement (enzymatic activity/ volume) 19 U/L 5-34 Serum or plasma alanine aminotransferase measurement (enzymatic activity/volume ) 35 U/L 0-55 Serum or plasma protein measurement (mass/volume) 5.3 g/dL 6.4-8.2 Serum or plasma albumin measurement (mass/volume) 2.9 g/dL 3.2-4.5 Complete blood count (CBC) with automated white blood cell (WBC) differential - 04/29/17 20:00 Blood leukocytes automated count (number/volume) 5.4 10*3/uL 4.3-11.0 Blood erythrocytes automated count (number/volume) 3.88 10*6/uL 4.35-5.85 Venous blood hemoglobin measurement (mass/volume) 12.3 g/dL 13.3-17.7 Blood hematocrit (volume fraction) 38 % 40-54 Automated erythrocyte mean corpuscular volume 97 [foz_us] 80-99 Automated erythrocyte mean corpuscular hemoglobin (mass per erythrocyte) 32 pg 25-34 Automated erythrocyte mean corpuscular hemoglobin concentration measurement ( mass/volume) 33 g/dL 32-36 Automated erythrocyte distribution width ratio 12.5 % 10.0-14.5 Automated blood platelet count (count/volume) 220 10*3/uL 130-400 Automated blood platelet mean volume measurement 10.0 [foz_us] 7.4-10.4 Automated blood neutrophils/100 leukocytes 45 % 42-75 Automated blood lymphocytes/100 leukocytes 32 % 12-44 Blood monocytes/100 leukocytes 18 % 0-12 Automated blood eosinophils/100 leukocytes 4 % 0-10 Automated blood basophils/100 leukocytes 2 % 0-10 Blood neutrophils automated count (number/volume) 2.4 10*3 1.8-7.8 Blood lymphocytes automated count (number/volume) 1.7 10*3 1.0-4.0 Blood monocytes automated count (number/volume) 1.0 10*3 0.0-1.0 Automated eosinophil count 0.2 10*3/uL 0.0-0.3 Automated blood basophil count (count/volume) 0.1 10*3/uL 0.0-0.1 PT panel in platelet poor plasma by coagulation assay - 04/29/17 20:00 Prothrombin time (PT) in platelet poor plasma by coagulation assay 13.7 s 12.2-14.7 INR in platelet poor plasma or blood by coagulation assay 1.0 0.8-1.4 Activated partial thromboplastin time (aPTT) in platelet poor plasma bycoagulation assay - 04/29/17 20:00 Activated partial thromboplastin time (aPTT) in platelet poor plasma bycoagulation assay 30 s 24-35 Comprehensive metabolic panel - 04/29/17 20:00 Serum or plasma sodium measurement (moles/volume) 138 mmol/L 135-145 Serum or plasma potassium measurement (moles/volume) 4.1 mmol/L 3.6-5.0 Serum or plasma chloride measurement (moles/volume) 103 mmol/L 98-107 Carbon dioxide 24 mmol/L 21-32 Serum or plasma anion gap determination (moles/volume) 11 mmol/L 5-14 Serum or plasma urea nitrogen measurement (mass/volume) 27 mg/dL 7-18 Serum or plasma creatinine measurement (mass/volume) 1.22 mg/dL 0.60-1.30 Serum or plasma urea nitrogen/creatinine mass ratio 22 NRG Serum or plasma creatinine measurement with calculation of estimated glomerular filtration rate 58 NRG Serum or plasma glucose measurement (mass/volume) 98 mg/dL 70-105 Serum or plasma calcium measurement (mass/volume) 8.3 mg/dL 8.5-10.1 Serum or plasma total bilirubin measurement (mass/volume) 0.5 mg/dL 0.1-1.0 Serum or plasma alkaline phosphatase measurement (enzymatic activity/volume) 63 U/L 40-136 Serum or plasma aspartate aminotransferase measurement (enzymatic activity/ volume) 21 U/L 5-34 Serum or plasma alanine aminotransferase measurement (enzymatic activity/volume ) 17 U/L 0-55 Serum or plasma protein measurement (mass/volume) 6.6 g/dL 6.4-8.2 Serum or plasma albumin measurement (mass/volume) 3.5 g/dL 3.2-4.5 Magnesium - 04/29/17 20:00 Magnesium 2.1 mg/dL 1.8-2.4 Blood manual differential performed detection - 04/29/17 20:00 Blood monocytes/100 leukocytes 15 % NRG Manual blood segmented neutrophils/100 leukocytes 53 % NRG Blood band neutrophils/100 leukocytes 0 % NRG Manual blood lymphocytes/100 leukocytes 27 % NRG Manual eosinophils/100 leukocytes in nose 4 % NRG Manual blood basophils/100 leukocytes 1 % NRG Blood erythrocyte morphology finding identification NORMAL NRG Serum or plasma lithium measurement (moles/volume) - 04/29/17 20:00 BNP level 73.7 pg/mL <100.0 Serum or plasma troponin i.cardiac measurement (mass/volume) - 04/29/17 20:00 Serum or plasma troponin i.cardiac measurement (mass/volume) < ng/ mL <0.30 Serum or plasma thyrotropin measurement by detection limit <=0.05 miu/l (units/ volume) - 04/29/17 20:00 Serum or plasma thyrotropin measurement by detection limit <=0.05 miu/l (units/ volume) 4.78 u[iU]/mL 0.35-4.94 Serum or plasma cortisol measurement (mass/volume) - 04/29/17 20:00 Cortisol PM 7.3 % 3.0-16.0 Bacterial blood culture - 04/29/17 20:10 Bacterial blood culture NG NRG Blood lactic acid measurement (moles/volume) - 04/29/17 20:30 Blood lactic acid measurement (moles/volume) 1.38 mmol/L 0.50-2.00 Bacterial blood culture - 04/29/17 20:30 Bacterial blood culture NG NRG Serum or plasma troponin i.cardiac measurement (mass/volume) - 04/29/17 22:40 Serum or plasma troponin i.cardiac measurement (mass/volume) < ng/ mL <0.30 Methicillin resistant Staphylococcus aureus (MRSA) screening culture - 23:05 Methicillin resistant Staphylococcus aureus (MRSA) screening culture NEG NRG Complete blood count (CBC) with automated white blood cell (WBC) differential - 04/30/17 04:35 Blood leukocytes automated count (number/volume) 9.2 10*3/uL 4.3-11.0 Blood erythrocytes automated count (number/volume) 3.67 10*6/uL 4.35-5.85 Venous blood hemoglobin measurement (mass/volume) 11.5 g/dL 13.3-17.7 Blood hematocrit (volume fraction) 35 % 40-54 Automated erythrocyte mean corpuscular volume 96 [foz_us] 80-99 Automated erythrocyte mean corpuscular hemoglobin (mass per erythrocyte) 31 pg 25-34 Automated erythrocyte mean corpuscular hemoglobin concentration measurement ( mass/volume) 33 g/dL 32-36 Automated erythrocyte distribution width ratio 12.1 % 10.0-14.5 Automated blood platelet count (count/volume) 212 10*3/uL 130-400 Automated blood platelet mean volume measurement 9.8 [foz_us] 7.4-10.4 Automated blood neutrophils/100 leukocytes 57 % 42-75 Automated blood lymphocytes/100 leukocytes 17 % 12-44 Blood monocytes/100 leukocytes 24 % 0-12 Automated blood eosinophils/100 leukocytes 1 % 0-10 Automated blood basophils/100 leukocytes 1 % 0-10 Blood neutrophils automated count (number/volume) 5.2 10*3 1.8-7.8 Blood lymphocytes automated count (number/volume) 1.6 10*3 1.0-4.0 Blood monocytes automated count (number/volume) 2.2 10*3 0.0-1.0 Automated eosinophil count 0.1 10*3/uL 0.0-0.3 Automated blood basophil count (count/volume) 0.1 10*3/uL 0.0-0.1 Comprehensive metabolic panel - 04/30/17 04:35 Serum or plasma sodium measurement (moles/volume) 134 mmol/L 135-145 Serum or plasma potassium measurement (moles/volume) 4.2 mmol/L 3.6-5.0 Serum or plasma chloride measurement (moles/volume) 104 mmol/L 98-107 Carbon dioxide 22 mmol/L 21-32 Serum or plasma anion gap determination (moles/volume) 8 mmol/L 5-14 Serum or plasma urea nitrogen measurement (mass/volume) 27 mg/dL 7-18 Serum or plasma creatinine measurement (mass/volume) 1.37 mg/dL 0.60-1.30 Serum or plasma urea nitrogen/creatinine mass ratio 20 NRG Serum or plasma creatinine measurement with calculation of estimated glomerular filtration rate 51 NRG Serum or plasma glucose measurement (mass/volume) 194 mg/dL 70-105 Serum or plasma calcium measurement (mass/volume) 7.7 mg/dL 8.5-10.1 Serum or plasma total bilirubin measurement (mass/volume) 0.5 mg/dL 0.1-1.0 Serum or plasma alkaline phosphatase measurement (enzymatic activity/volume) 60 U/L 40-136 Serum or plasma aspartate aminotransferase measurement (enzymatic activity/ volume) 17 U/L 5-34 Serum or plasma alanine aminotransferase measurement (enzymatic activity/volume ) 15 U/L 0-55 Serum or plasma protein measurement (mass/volume) 5.9 g/dL 6.4-8.2 Serum or plasma albumin measurement (mass/volume) 3.3 g/dL 3.2-4.5 Serum or plasma phosphate measurement (mass/volume) - 04/30/17 04:35 Serum or plasma phosphate measurement (mass/volume) 2.0 mg/dL 2.3-4.7 Magnesium - 04/30/17 04:35 Magnesium 1.7 mg/dL 1.8-2.4 Serum or plasma troponin i.cardiac measurement (mass/volume) - 04/30/17 04:35 Serum or plasma troponin i.cardiac measurement (mass/volume) < ng/ mL <0.30 Myoglobin, serum - 04/30/17 04:35 Myoglobin, serum 161.4 ng/mL 10.0-92.0 Serum or plasma thyroxine (T4) free measurement (mass/volume) - 04/30/17 04:35 Serum or plasma thyroxine (T4) free measurement (mass/volume) 0.77 ng/dL 0.70-1.48 Complete urinalysis with reflex to culture - 04/30/17 05:50 Urine color determination YELLOW NRG Urine clarity determination CLEAR NRG Urine pH measurement by test strip 6 5-9 Specific gravity of urine by test strip 1.015 1.016- 1.022 Urine protein assay by test strip, semi-quantitative NEGATIVE NEGATIVE Urine glucose detection by automated test strip NEGATIVE NEGATIVE Erythrocytes detection in urine sediment by light microscopy NEGATIVE NEGATIVE Urine ketones detection by automated test strip NEGATIVE NEGATIVE Urine nitrite detection by test strip NEGATIVE NEGATIVE Urine total bilirubin detection by test strip NEGATIVE NEGATIVE Urine urobilinogen measurement by automated test strip (mass/volume) NORMAL NORMAL Urine leukocyte esterase detection by dipstick NEGATIVE NEGATIVE Automated urine sediment erythrocyte count by microscopy (number/high power field) NONE NRG Automated urine sediment leukocyte count by microscopy (number/high power field ) NONE NRG Bacteria detection in urine sediment by light microscopy NEGATIVE NRG Squamous epithelial cells detection in urine sediment by light microscopy RARE NRG Crystals detection in urine sediment by light microscopy NONE NRG Casts detection in urine sediment by light microscopy PRESENT NRG Mucus detection in urine sediment by light microscopy NEGATIVE NRG Complete urinalysis with reflex to culture NO NRG Hyaline casts detection in urine sediment by light microscopy RARE NRG Urine drug screening test - 04/30/17 05:50 Urine phencyclidine detection by screening method NEGATIVE NEGATIVE Urine benzodiazepines detection by screening method NEGATIVE NEGATIVE Urine cocaine detection NEGATIVE NEGATIVE Urine amphetamines detection by screening method NEGATIVE NEGATIVE Urine methamphetamine detection by screening method NEGATIVE NEGATIVE Urine cannabinoids detection by screening method NEGATIVE NEGATIVE Urine opiates detection by screening method POSITIVE NEGATIVE Urine barbiturates detection NEGATIVE NEGATIVE Screening urine tricyclic antidepressants detection NEGATIVE NEGATIVE Urine methadone detection by screening method NEGATIVE NEGATIVE Urine oxycodone detection NEGATIVE NEGATIVE Urine propoxyphene detection NEGATIVE NEGATIVE Arterial blood gas measurement - 04/30/17 07:25 Blood pCO2 50 mm[Hg] 35-45 Blood pO2 98 mm[Hg] 79-93 Arterial blood bicarbonate measurement (moles/volume) 21 mmol/L 23-27 Arterial blood base excess by calculation -5.3 mmol/L - 2.5-2.5 Arterial blood oxygen saturation measurement 98 % 94-100 * Inhaled oxygen flow rate 2L NRG Arterial blood pH measurement with patient temperature correction 7.24 7.37-7.43 Arterial blood carbon dioxide, total measurement (moles/volume) 22.5 mmol/L 21.0-31.0 Body site RT RAD NRG Assessment of wrist artery patency prior to arterial puncture YES- POS NRG Setting of ventilation mode NO NRG Measurement of body temperature 96.8 NRG TRIIODOTHRYONINE T3 FREE - 04/30/17 07:25 TRIIODOTHYRONINE T3 FREE 2.4 pg/mL 2.4-4.5 Complete blood count (CBC) with automated white blood cell (WBC) differential - 05/01/17 04:51 Blood leukocytes automated count (number/volume) 7.5 10*3/uL 4.3-11.0 Blood erythrocytes automated count (number/volume) 3.38 10*6/uL 4.35-5.85 Venous blood hemoglobin measurement (mass/volume) 10.6 g/dL 13.3-17.7 Blood hematocrit (volume fraction) 33 % 40-54 Automated erythrocyte mean corpuscular volume 97 [foz_us] 80-99 Automated erythrocyte mean corpuscular hemoglobin (mass per erythrocyte) 31 pg 25-34 Automated erythrocyte mean corpuscular hemoglobin concentration measurement ( mass/volume) 32 g/dL 32-36 Automated erythrocyte distribution width ratio 12.4 % 10.0-14.5 Automated blood platelet count (count/volume) 155 10*3/uL 130-400 Automated blood platelet mean volume measurement 10.2 [foz_us] 7.4-10.4 Automated blood neutrophils/100 leukocytes 78 % 42-75 Automated blood lymphocytes/100 leukocytes 12 % 12-44 Blood monocytes/100 leukocytes 10 % 0-12 Automated blood eosinophils/100 leukocytes 0 % 0-10 Automated blood basophils/100 leukocytes 0 % 0-10 Blood neutrophils automated count (number/volume) 5.9 10*3 1.8-7.8 Blood lymphocytes automated count (number/volume) 0.9 10*3 1.0-4.0 Blood monocytes automated count (number/volume) 0.8 10*3 0.0-1.0 Automated eosinophil count 0.0 10*3/uL 0.0-0.3 Automated blood basophil count (count/volume) 0.0 10*3/uL 0.0-0.1 Whole blood basic metabolic panel - 05/01/17 04:51 Serum or plasma sodium measurement (moles/volume) 140 mmol/L 135-145 Serum or plasma potassium measurement (moles/volume) 4.6 mmol/L 3.6-5.0 Serum or plasma chloride measurement (moles/volume) 114 mmol/L 98-107 Carbon dioxide 17 mmol/L 21-32 Serum or plasma anion gap determination (moles/volume) 9 mmol/L 5-14 Serum or plasma urea nitrogen measurement (mass/volume) 18 mg/dL 7-18 Serum or plasma creatinine measurement (mass/volume) 0.91 mg/dL 0.60-1.30 Serum or plasma urea nitrogen/creatinine mass ratio 20 NRG Serum or plasma creatinine measurement with calculation of estimated glomerular filtration rate > NRG Serum or plasma glucose measurement (mass/volume) 117 mg/dL 70-105 Serum or plasma calcium measurement (mass/volume) 7.5 mg/dL 8.5-10.1 Serum or plasma phosphate measurement (mass/volume) - 05/01/17 04:51 Serum or plasma phosphate measurement (mass/volume) 2.6 mg/dL 2.3-4.7 Magnesium - 05/01/17 04:51 Magnesium 1.9 mg/dL 1.8-2.4 Complete blood count (CBC) with automated white blood cell (WBC) differential - 05/02/17 05:50 Blood leukocytes automated count (number/volume) 17.9 10*3/uL 4.3-11.0 Blood erythrocytes automated count (number/volume) 3.55 10*6/uL 4.35-5.85 Venous blood hemoglobin measurement (mass/volume) 11.2 g/dL 13.3-17.7 Blood hematocrit (volume fraction) 34 % 40-54 Automated erythrocyte mean corpuscular volume 96 [foz_us] 80-99 Automated erythrocyte mean corpuscular hemoglobin (mass per erythrocyte) 32 pg 25-34 Automated erythrocyte mean corpuscular hemoglobin concentration measurement ( mass/volume) 33 g/dL 32-36 Automated erythrocyte distribution width ratio 12.9 % 10.0-14.5 Automated blood platelet count (count/volume) 179 10*3/uL 130-400 Automated blood platelet mean volume measurement 10.2 [foz_us] 7.4-10.4 Automated blood neutrophils/100 leukocytes 82 % 42-75 Automated blood lymphocytes/100 leukocytes 6 % 12-44 Blood monocytes/100 leukocytes 11 % 0-12 Automated blood eosinophils/100 leukocytes 0 % 0-10 Automated blood basophils/100 leukocytes 0 % 0-10 Blood neutrophils automated count (number/volume) 14.8 10*3 1.8-7.8 Blood lymphocytes automated count (number/volume) 1.1 10*3 1.0-4.0 Blood monocytes automated count (number/volume) 2.0 10*3 0.0-1.0 Automated eosinophil count 0.0 10*3/uL 0.0-0.3 Automated blood basophil count (count/volume) 0.0 10*3/uL 0.0-0.1 Whole blood basic metabolic panel - 05/02/17 05:50 Serum or plasma sodium measurement (moles/volume) 138 mmol/L 135-145 Serum or plasma potassium measurement (moles/volume) 3.9 mmol/L 3.6-5.0 Serum or plasma chloride measurement (moles/volume) 110 mmol/L 98-107 Carbon dioxide 19 mmol/L 21-32 Serum or plasma anion gap determination (moles/volume) 9 mmol/L 5-14 Serum or plasma urea nitrogen measurement (mass/volume) 13 mg/dL 7-18 Serum or plasma creatinine measurement (mass/volume) 0.77 mg/dL 0.60-1.30 Serum or plasma urea nitrogen/creatinine mass ratio 17 NRG Serum or plasma creatinine measurement with calculation of estimated glomerular filtration rate > NRG Serum or plasma glucose measurement (mass/volume) 100 mg/dL 70-105 Serum or plasma calcium measurement (mass/volume) 7.7 mg/dL 8.5-10.1 Blood manual differential performed detection - 05/02/17 05:50 Blood monocytes/100 leukocytes 13 % NRG Manual blood segmented neutrophils/100 leukocytes 78 % NRG Blood band neutrophils/100 leukocytes 4 % NRG Manual blood lymphocytes/100 leukocytes 3 % NRG Manual eosinophils/100 leukocytes in nose 0 % NRG Manual blood basophils/100 leukocytes 0 % NRG Blood lymphocytes variant/100 leukocytes 2 % NRG Blood erythrocyte morphology finding identification NORMAL NRG Serum or plasma troponin i.cardiac measurement (mass/volume) - 05/02/17 05:50 Serum or plasma troponin i.cardiac measurement (mass/volume) < ng/ mL <0.30 Serum or plasma lithium measurement (moles/volume) - 05/02/17 05:50 BNP level 582.9 pg/mL <100.0 Arterial blood gas measurement - 05/02/17 10:10 Blood pCO2 29 mm[Hg] 35-45 Blood pO2 90 mm[Hg] 79-93 Arterial blood bicarbonate measurement (moles/volume) 18 mmol/L 23-27 Arterial blood base excess by calculation -5.4 mmol/L - 2.5-2.5 Arterial blood oxygen saturation measurement 98 % 94-100 * Inhaled oxygen flow rate 2 NRG Arterial blood pH measurement with patient temperature correction 7.42 7.37-7.43 Arterial blood carbon dioxide, total measurement (moles/volume) 19.2 mmol/L 21.0-31.0 Body site RT RADIAL NRG Assessment of wrist artery patency prior to arterial puncture YES- POS NRG Setting of ventilation mode NO NRG Measurement of body temperature 98.2 NRG Complete blood count (CBC) with automated white blood cell (WBC) differential - 05/03/17 05:30 Blood leukocytes automated count (number/volume) 14.6 10*3/uL 4.3-11.0 Blood erythrocytes automated count (number/volume) 3.20 10*6/uL 4.35-5.85 Venous blood hemoglobin measurement (mass/volume) 10.1 g/dL 13.3-17.7 Blood hematocrit (volume fraction) 31 % 40-54 Automated erythrocyte mean corpuscular volume 97 [foz_us] 80-99 Automated erythrocyte mean corpuscular hemoglobin (mass per erythrocyte) 32 pg 25-34 Automated erythrocyte mean corpuscular hemoglobin concentration measurement ( mass/volume) 33 g/dL 32-36 Automated erythrocyte distribution width ratio 12.7 % 10.0-14.5 Automated blood platelet count (count/volume) 155 10*3/uL 130-400 Automated blood platelet mean volume measurement 10.0 [foz_us] 7.4-10.4 Automated blood neutrophils/100 leukocytes 81 % 42-75 Automated blood lymphocytes/100 leukocytes 9 % 12-44 Blood monocytes/100 leukocytes 10 % 0-12 Automated blood eosinophils/100 leukocytes 1 % 0-10 Automated blood basophils/100 leukocytes 0 % 0-10 Blood neutrophils automated count (number/volume) 11.8 10*3 1.8-7.8 Blood lymphocytes automated count (number/volume) 1.3 10*3 1.0-4.0 Blood monocytes automated count (number/volume) 1.4 10*3 0.0-1.0 Automated eosinophil count 0.1 10*3/uL 0.0-0.3 Automated blood basophil count (count/volume) 0.0 10*3/uL 0.0-0.1 Comprehensive metabolic panel - 05/03/17 05:30 Serum or plasma sodium measurement (moles/volume) 138 mmol/L 135-145 Serum or plasma potassium measurement (moles/volume) 3.8 mmol/L 3.6-5.0 Serum or plasma chloride measurement (moles/volume) 109 mmol/L 98-107 Carbon dioxide 19 mmol/L 21-32 Serum or plasma anion gap determination (moles/volume) 10 mmol/L 5-14 Serum or plasma urea nitrogen measurement (mass/volume) 11 mg/dL 7-18 Serum or plasma creatinine measurement (mass/volume) 0.70 mg/dL 0.60-1.30 Serum or plasma urea nitrogen/creatinine mass ratio 16 NRG Serum or plasma creatinine measurement with calculation of estimated glomerular filtration rate > NRG Serum or plasma glucose measurement (mass/volume) 104 mg/dL 70-105 Serum or plasma calcium measurement (mass/volume) 7.5 mg/dL 8.5-10.1 Serum or plasma total bilirubin measurement (mass/volume) 0.7 mg/dL 0.1-1.0 Serum or plasma alkaline phosphatase measurement (enzymatic activity/volume) 56 U/L 40-136 Serum or plasma aspartate aminotransferase measurement (enzymatic activity/ volume) 46 U/L 5-34 Serum or plasma alanine aminotransferase measurement (enzymatic activity/volume ) 19 U/L 0-55 Serum or plasma protein measurement (mass/volume) 5.5 g/dL 6.4-8.2 Serum or plasma albumin measurement (mass/volume) 2.6 g/dL 3.2-4.5 Serum or plasma lithium measurement (moles/volume) - 05/03/17 05:30 BNP level 324.2 pg/mL <100.0 Vancomycin trough - 05/03/17 08:55 Vancomycin trough 15.5 ug/mL 10.0-20.0 Complete urinalysis with reflex to culture - 05/04/17 20:35 Urine color determination YELLOW NRG Urine clarity determination SLIGHTLY CLOUDY NRG Urine pH measurement by test strip 6 5-9 Specific gravity of urine by test strip 1.020 1.016- 1.022 Urine protein assay by test strip, semi-quantitative 2+ NEGATIVE Urine glucose detection by automated test strip NEGATIVE NEGATIVE Erythrocytes detection in urine sediment by light microscopy 3+ NEGATIVE Urine ketones detection by automated test strip 1+ NEGATIVE Urine nitrite detection by test strip NEGATIVE NEGATIVE Urine total bilirubin detection by test strip 1+ NEGATIVE Urine urobilinogen measurement by automated test strip (mass/volume) 4 mg/dL NORMAL Urine leukocyte esterase detection by dipstick 3+ NEGATIVE Automated urine sediment erythrocyte count by microscopy (number/high power field) [HPF] NRG Automated urine sediment leukocyte count by microscopy (number/high power field ) [HPF] NRG Bacteria detection in urine sediment by light microscopy NEGATIVE NRG Squamous epithelial cells detection in urine sediment by light microscopy 5-10 NRG Crystals detection in urine sediment by light microscopy NONE NRG Casts detection in urine sediment by light microscopy NONE NRG Mucus detection in urine sediment by light microscopy NEGATIVE NRG Complete urinalysis with reflex to culture YES NRG Other elements identification in urine sediment by light microscopy FEW SPERM NRG Bacterial urine culture - 05/04/17 20:35 Bacterial urine culture NG NRG Complete blood count (CBC) with automated white blood cell (WBC) differential - 05/05/17 06:21 Blood leukocytes automated count (number/volume) 4.9 10*3/uL 4.3-11.0 Blood erythrocytes automated count (number/volume) 3.41 10*6/uL 4.35-5.85 Venous blood hemoglobin measurement (mass/volume) 10.7 g/dL 13.3-17.7 Blood hematocrit (volume fraction) 33 % 40-54 Automated erythrocyte mean corpuscular volume 97 [foz_us] 80-99 Automated erythrocyte mean corpuscular hemoglobin (mass per erythrocyte) 31 pg 25-34 Automated erythrocyte mean corpuscular hemoglobin concentration measurement ( mass/volume) 33 g/dL 32-36 Automated erythrocyte distribution width ratio 12.8 % 10.0-14.5 Automated blood platelet count (count/volume) 192 10*3/uL 130-400 Automated blood platelet mean volume measurement 9.5 [foz_us] 7.4-10.4 Automated blood neutrophils/100 leukocytes 53 % 42-75 Automated blood lymphocytes/100 leukocytes 23 % 12-44 Blood monocytes/100 leukocytes 19 % 0-12 Automated blood eosinophils/100 leukocytes 4 % 0-10 Automated blood basophils/100 leukocytes 1 % 0-10 Blood neutrophils automated count (number/volume) 2.6 10*3 1.8-7.8 Blood lymphocytes automated count (number/volume) 1.1 10*3 1.0-4.0 Blood monocytes automated count (number/volume) 1.0 10*3 0.0-1.0 Automated eosinophil count 0.2 10*3/uL 0.0-0.3 Automated blood basophil count (count/volume) 0.0 10*3/uL 0.0-0.1 Whole blood basic metabolic panel - 05/05/17 06:21 Serum or plasma sodium measurement (moles/volume) 143 mmol/L 135-145 Serum or plasma potassium measurement (moles/volume) 3.6 mmol/L 3.6-5.0 Serum or plasma chloride measurement (moles/volume) 110 mmol/L 98-107 Carbon dioxide 22 mmol/L 21-32 Serum or plasma anion gap determination (moles/volume) 11 mmol/L 5-14 Serum or plasma urea nitrogen measurement (mass/volume) 6 mg/dL 7-18 Serum or plasma creatinine measurement (mass/volume) 0.68 mg/dL 0.60-1.30 Serum or plasma urea nitrogen/creatinine mass ratio 9 NRG Serum or plasma creatinine measurement with calculation of estimated glomerular filtration rate > NRG Serum or plasma glucose measurement (mass/volume) 105 mg/dL 70-105 Serum or plasma calcium measurement (mass/volume) 8.0 mg/dL 8.5-10.1 Whole blood basic metabolic panel - 05/06/17 05:25 Serum or plasma sodium measurement (moles/volume) 143 mmol/L 135-145 Serum or plasma potassium measurement (moles/volume) 3.9 mmol/L 3.6-5.0 Serum or plasma chloride measurement (moles/volume) 109 mmol/L 98-107 Carbon dioxide 24 mmol/L 21-32 Serum or plasma anion gap determination (moles/volume) 10 mmol/L 5-14 Serum or plasma urea nitrogen measurement (mass/volume) 11 mg/dL 7-18 Serum or plasma creatinine measurement (mass/volume) 0.71 mg/dL 0.60-1.30 Serum or plasma urea nitrogen/creatinine mass ratio 15 NRG Serum or plasma creatinine measurement with calculation of estimated glomerular filtration rate > NRG Serum or plasma glucose measurement (mass/volume) 143 mg/dL 70-105 Serum or plasma calcium measurement (mass/volume) 8.2 mg/dL 8.5-10.1 Encounters ACCT No. Visit Date/Time Discharge Status Pt. Type Provider Facility Loc./Unit Complaint [id number] 05/26/2017 07:35:00 05/26/2017 23:59:59 CLS Outpatient KYARA MAHAJAN FACC, JIM FLORES CCDS [facility] CARD CAD I25.10 [id number] 05/23/2017 19:54:00 05/24/2017 06:30:00 DIS Outpatient MYRNA PANDYA APRN [facility] SLEEP ACE G47.33 [id number] 05/18/2017 14:17:00 05/18/2017 23:59:59 CLS Outpatient MYRNA PANDYA APRN [facility] RT COPD J43.8 [id number] 04/29/2017 22:07:00 05/06/2017 15:23:00 DIS Inpatient HAYLEE BALDWIN DO [facility] 4TH CHEST PAIN WITH ACUTE ISCHEMIC EKG CHANGES [id number] 01/16/2017 11:01:00 01/16/2017 12:02:00 DIS Outpatient YAYA MARIE MD [facility] CARD DISC DISORDER [id number] 12/30/2016 10:38:00 12/30/2016 23:59:59 CLS Outpatient KYARA MAHAJAN FACC, JIM FLORES CCDS [facility] CARD R06.02 I25.10 I65.23 [id number] 12/25/2016 13:08:00 12/26/2016 11:18:00 DIS Inpatient NICOLASA HAYLEE RESENDIZ S [facility] 4TH ORTHOSTATIC HTN [id number] 12/11/2016 14:19:00 12/11/2016 23:59:59 CLS Outpatient LATRICIA ALVARES APRN [facility] RAD COUGH,CHEST CONGESTION [id number] 12/17/2015 12:28:00 12/17/2015 13:26:00 DIS Outpatient YAYA MARIE MD [facility] CARD DISC DISORDER W/ RADICULOPATHY [id number] 11/19/2015 10:13:00 11/19/2015 23:59:59 CLS Outpatient LATRICIA ALVARES APRN [facility] RAD FOLLOW UP FOR LUNG NODULE [id number] 10/19/2015 18:11:00 10/19/2015 20:07:00 DIS Emergency SYED MELISSA RESENDIZ [facility] ER PULSE;BP [id number] 10/05/2015 07:23:00 10/05/2015 08:12:00 DIS Outpatient YAYA MARIE MD [facility] CARD DISC DISORDER [id number] 08/21/2015 08:27:00 08/23/2015 13:24:00 DIS Inpatient CHENG FATIMA DO [facility] 4TH LLL PNEUMONIA LEUKOCYTOSIS [id number] 08/13/2015 13:07:00 08/13/2015 23:59:59 CLS Outpatient YAYA MARIE MD [facility] CARD DISC DISORDER W/ RADICULOPATHY LUMBAR [id number] 07/04/2015 08:51:00 07/04/2015 23:59:59 CLS Outpatient YAYA MARIE MD [facility] RAD LOW BACK PAIN [id number] 06/28/2015 07:01:00 06/28/2015 23:59:59 CLS Outpatient ZOËTONG ERICK Jesus COPPOLA [facility] CARD CAD,CP [id number] 06/27/2015 08:19:00 06/27/2015 23:59:59 CLS Outpatient GILHAYLEE SINGH DO [facility] RAD THYROID NODULE [id number] 12/06/2014 09:10:00 12/06/2014 12:49:00 DIS [facility]; BLOOD IN STOOLS [id number] 12/05/2014 05:44:00 12/05/2014 23:59:59 CLS Outpatient MERCEDES SMART MD [facility] PREOP HISTORY OF POLYPS; BLOOD IN STOOLS [id number] 10/25/2013 11:42:00 01/23/2014 00:01:00 DIS Outpatient MAGDA DOMINIQUE MD [facility] LAB DIARRHEA [id number] 11/15/2013 13:00:00 11/15/2013 23:59:59 CLS Outpatient CHENG FATIMA DO [facility] LAB DIARRHEA [id number] 08/11/2013 12:00:00 11/05/2013 00:01:00 DIS Outpatient VANDANA MARCUM MD [facility] LAB CHRONIC DIARRHEA [id number] 08/05/2013 10:55:00 08/05/2013 14:55:00 DIS Emergency VANDANA MARCUM MD [facility] ER DIARRHEA/VOMITING [id number] 06/20/2013 10:31:00 06/20/2013 23:59:59 CLS Outpatient KYARA MAHAJAN FACC, JIM DENSONP CCDS [facility] RAD CP,CAD,HTN, HLP [id number] 04/28/2013 09:29:00 04/28/2013 23:59:59 CLS Outpatient MERCEDES SMART MD [facility] RAD ABD PAIN,BLOATING, DIARRHEA [id number] 04/27/2013 08:35:00 04/27/2013 13:00:00 DIS Outpatient MERCEDES SMART MD [facility] ABDOMINAL PAIN [id number] 04/22/2013 07:38:00 04/22/2013 23:59:59 CLS Outpatient MERCEDES SMART MD [facility] RAD DIARRHEA [id number] 04/20/2013 07:15:00 04/20/2013 23:59:59 CLS Outpatient MERCEDES SMART MD [facility] PREOP ABDOMINAL PAIN [id number] 01/28/2013 06:51:00 01/29/2013 08:00:00 DIS Outpatient JERONIMO PITTMAN MD [facility] RIGHT THYROID NODULE [id number] 01/25/2013 14:31:00 01/25/2013 23:59:59 CLS Outpatient JERONIMO PITTMAN MD [facility] PREOP RIGHT THYROID NODULE [id number] 12/23/2012 10:27:00 12/23/2012 23:59:59 CLS Outpatient JERONIMO PITTMAN MD [facility] RAD THYROID NODULE [id number] 05/15/2018 11:09:00 ACT Emergency VANDANA MARCUM MD [facility] ER WHEEZING,COUGH,HEADACHE [id number] 12/08/2014 09:56:00 Document Registration [id number] 12/08/2014 09:56:00 Document Registration [id number] 12/08/2014 09:56:00 Document Registration [id number] 12/08/2014 09:56:00 Document Registration [id number] 12/08/2014 09:56:00 Document Registration [id number] 12/08/2014 09:56:00 Document Registration [id number] 12/08/2014 09:56:00 Document Registration [id number] 10/27/2014 20:51:00 Document Registration [id number] 01/24/2014 00:00:00 Document Registration [id number] 11/06/2013 00:00:00 Document Registration [id number] 11/25/2012 09:48:00 Document Registration [id number] 09/09/2012 07:57:00 Document Registration [id number] 05/19/2012 12:16:00 Document Registration [id number] 02/06/2012 08:09:00 Document Registration [id number] 02/05/2012 08:37:00 Document Registration [id number] 01/08/2012 07:20:00 Document Registration [id number] 12/29/2011 13:23:00 Document Registration [id number] 12/24/2011 16:05:00 Document Registration [id number] 06/17/2011 05:31:00 Document Registration [id number] 06/16/2011 09:40:00 Document Registration [id number] 06/05/2011 15:31:00 Document Registration [id number] 11/28/2010 09:37:00 Document Registration [id number] 04/02/2010 06:01:00 Document Registration [id number] 07/19/2009 13:39:00 Document Registration [id number] 07/02/2009 08:41:00 Document Registration 12/201505/12/2018 15:09:16 Haylee Maldonado
[2018-05-15 11:39] VITALS: BP 145/70
[2018-05-15 11:43] VITALS: BP 145/69
[2018-05-15 11:44] VITALS: BP 143/60
--- NOTE | 2018-05-15 11:46 | ED General ---
General Chief Complaint: Cough/Cold/Flu Symptoms Stated Complaint: WHEEZING,COUGH,HEADACHE Nursing Triage Note: complaint of cough/headache since thursday Nursing Sepsis Screen: No Definite Risk Source of Information: Patient Exam Limitations: No Limitations History of Present Illness Date Seen by Provider: May 15, 2018 Time Seen by Provider: 11:20 Initial Comments This 77-year-old gentleman presents to the emergency room with several complaints. He has not been feeling well since last week. He complains of cough and shortness of breath. He was wheezing significantly earlier today at home. His son also notes that his oxygen saturation on a home pulse oximeter was in the 70s. Patient uses oxygen at night and does have COPD for which she uses inhalers. He does not have a nebulizer machine. He also complains of rather diffuse generalized aching and arthralgias. He has headache and lightheadedness as well as exacerbation of chronic tinnitus. Head symptoms seem to be worse upon standing. He has been afebrile. He denies any known tick bites. He has had no recent medication changes. Allergies and Home Medications Allergies Coded Allergies: Sulfa (Sulfonamide Antibiotics) (Verified Allergy, Unknown, 08/20/15) Home Medications Acetaminophen 500 Mg Tablet, 1,000 MG PO Q6H PRN for PAIN-MILD, (Reported) TAKES 2 (500 MG) TABLETS Albuterol Sulfate 18 Gm Hfa.aer.ad, 2 PUFF INH Q4H PRN for SHORTNESS OF BREATH, (Reported) Aspirin 81 Mg Tablet., 81 MG PO DAILY, (Reported) Atenolol 50 Mg Tablet, 50 MG PO BID Prescribed by: KENYETTA BALDWIN on 05/06/17 1306 Atorvastatin Calcium 40 Mg Tablet, 40 MG PO DAILY, (Reported) Cefdinir 300 Mg Capsule, 300 MG PO BID Prescribed by: KENYETTA BALDWIN on 05/06/17 1306 Dexlansoprazole 60 Mg Cap.bp, 60 MG PO DAILY, (Reported) Docusate Sodium 100 Mg Capsule, 100 MG PO HS PRN for CONSTIPATION-1ST LINE, ( Reported) Duloxetine HCl 60 Mg Capsule., 60 MG PO BID, (Reported) Hydrocodone Bit/Acetaminophen 1 Each Tablet, 0.5 EA PO Q4H PRN for PAIN-MODERATE Prescribed by: KENYETTA BALDWIN on 05/06/17 1306 Ipratropium [place] 15 Ml Naspr, 2 SPRAYS NS DAILY PRN for ALLERGIES, (Reported) Losartan Potassium 100 Mg Tablet, 100 MG PO DAILY, (Reported) Polson-3 Fatty Acids/Fish Oil 1 Each Capsule, 1,200 MG PO DAILY, (Reported) Prednisone 20 Mg Tab, 20 MG PO BID Prescribed by: KENYETTA BALDWIN on 05/06/17 1306 Pregabalin 100 Mg Capsule, 100 MG PO BID, (Reported) Patient Home Medication List Home Medication List Reviewed: Yes Review of Systems Review of Systems Constitutional: see HPI EENTM: see HPI Respiratory: see HPI Cardiovascular: see HPI Gastrointestinal: no symptoms reported Genitourinary: frequency Musculoskeletal: see HPI Skin: no symptoms reported Psychiatric/Neurological: See HPI Hematologic/Lymphatic: No Symptoms Reported Past Wxtphrx-Fvlvzs-Pvcfec Hx Patient Social History Type Used: Cigarettes Former Smoker, Quit: Aug 31, 2012 Recent Foreign Travel: No Contact w/Someone Who Travel: No Recent Infectious Disease Expo: No Recent Hopitalizations: No Physical Abuse: No Sexual Abuse: No Mistreated: No Fear: No Immunizations Up To Date Tetanus Booster (TDap): More than 5yrs PED Vaccines UTD: No Date of Pneumonia Vaccine: May 31, 2014 Date of Influenza Vaccine: May 31, 2015 Seasonal Allergies Seasonal Allergies: Yes Past Medical History Surgeries: Yes Cardiac, Coronary Stent, Eye Surgery, Orthopedic, Vascular Surgery Respiratory: Yes (COPD) Pneumonia, COPD Currently Using CPAP: No Currently Using BIPAP: No Cardiac: Yes (STENTS IN HEART, CAROTID ARTERY, LEGS) Coronary Artery Disease, High Cholesterol, Hypertension, Peripheral Vascular Neurological: No Reproductive Disorders: No Sexually Transmitted Disease: No HIV/AIDS: No Genitourinary: Yes Prostate Problems Gastrointestinal: Yes (ABDOMINAL PAIN AT TIMES) Gastroesophageal Reflux, Diverticulosis, Hemorrhoids Musculoskeletal: Yes (ARTHRITIS "ALL OVER") Degenerate Disk Disease, Arthritis, Chronic Back Pain Endocrine: No HEENT: No Loss of Vision: Denies Hearing Impairment: Denies Cancer: No Psychosocial: Yes Depression Integumentary: No Blood Disorders: No Adverse Reaction/Blood Tranf: No Family Medical History Patient reports no known family medical history. No Pertinent Family Hx Physical Exam Vital Signs Vital Signs - First Documented 05/15/18 11:27 Temp 99.8 Pulse 71 Resp 20 B/P (MAP) 131/57 (81) Pulse Ox 95 O2 Delivery Room Air Capillary Refill : Less Than 3 Seconds Height, Weight, BMI Height: 5'10.00" Weight: 242lbs. 3.0oz. 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 Norm as Tested Skin: Normal Color, Warm/Dry Progress/Results/Core Measures Suspected Sepsis Recent Fever Within 48 Hours: No Infection Criteria Present: None New/Unexplained Altered Menta: No Sepsis Screen: No Definite Risk SIRS Temperature:99.8 Pulse: 71 Respiratory Rate: 20 Laboratory Tests 05/15/18 11:40: White Blood Count 12.8H Blood Pressure 131 /57 Mean: 81 Laboratory Tests 05/15/18 11:40: Creatinine 0.88, Platelet Count 187, Total Bilirubin 1.1H Results/Orders Lab Results Laboratory Tests Test 05/15/18 11:40 05/15/18 12:30 Range/Units White Blood Count 12.8 H 4.3-11.0 10^3/uL Red Blood Count 3.86 L 4.35-5.85 10^6/uL Hemoglobin 13.0 L 13.3-17.7 G/DL Hematocrit 39 L 40-54 % Mean Corpuscular Volume 101 H 80-99 FL Mean Corpuscular Hemoglobin 34 25-34 PG Mean Corpuscular Hemoglobin Concent 33 32-36 G/DL Red Cell Distribution Width 13.6 10.0-14.5 % Platelet Count 187 130-400 10^3/uL Mean Platelet Volume 10.0 7.4-10.4 FL Neutrophils (%) (Auto) 73 42-75 % Lymphocytes (%) (Auto) 9 L 12-44 % Monocytes (%) (Auto) 17 H 0-12 % Eosinophils (%) (Auto) 1 0-10 % Basophils (%) (Auto) 0 0-10 % Neutrophils # (Auto) 9.3 H 1.8-7.8 X 10^3 Lymphocytes # (Auto) 1.2 1.0-4.0 X 10^3 Monocytes # (Auto) 2.1 H 0.0-1.0 X 10^3 Eosinophils # (Auto) 0.1 0.0-0.3 10^3/uL Basophils # (Auto) 0.0 0.0-0.1 10^3/uL Sodium Level 134 L 135-145 MMOL/L Potassium Level 4.4 3.6-5.0 MMOL/L Chloride Level 97 L 98-107 MMOL/L Carbon Dioxide Level 26 21-32 MMOL/L Anion Gap 11 5-14 MMOL/L Blood Urea Nitrogen 11 7-18 MG/DL Creatinine 0.88 0.60-1.30 MG/DL Estimat Glomerular Filtration Rate > 60 BUN/Creatinine Ratio 13 Glucose Level 119 H 70-105 MG/DL Calcium Level 8.9 8.5-10.1 MG/DL Corrected Calcium 9.1 8.5-10.1 MG/DL Magnesium Level 1.9 1.8-2.4 MG/DL Total Bilirubin 1.1 H 0.1-1.0 MG/DL Aspartate Amino Transf (AST/SGOT) 14 5-34 U/L Alanine Aminotransferase (ALT/SGPT) 17 0-55 U/L Alkaline Phosphatase 71 40-136 U/L Total Creatine Kinase 75 30-200 U/L Troponin I < 0.30 <0.30 NG/ML C-Reactive Protein High Sensitivity 19.46 H 0.00-0.50 MG/DL B-Type Natriuretic Peptide 138.1 H <100.0 PG/ML Total Protein 7.2 6.4-8.2 GM/DL Albumin 3.8 3.2-4.5 GM/DL TSH [place] Testing 2.07 0.35-4.94 UIU/ML Urine Color MAGDA H Urine Clarity SLIGHTLY CLOUDY Urine pH 6 5-9 Urine Specific [place] 1.010 L 1.016-1.022 Urine Protein 1+ H NEGATIVE Urine Glucose (UA) NEGATIVE NEGATIVE Urine Ketones NEGATIVE NEGATIVE Urine Nitrite NEGATIVE NEGATIVE Urine Bilirubin NEGATIVE NEGATIVE Urine Urobilinogen 1 NORMAL MG/DL Urine Leukocyte Esterase 1+ H NEGATIVE Urine RBC (Auto) NEGATIVE NEGATIVE Urine RBC NONE /HPF Urine WBC 0-2 /HPF Urine Squamous Epithelial Cells 0-2 /HPF Urine Crystals NONE /LPF Urine Bacteria NEGATIVE /HPF Urine Casts NONE /LPF Urine Mucus NEGATIVE /LPF Urine Culture Indicated NO My Orders Orders - VANDANA MARCUM MD BNP (05/15/18 11:31) Cbc With Automated Diff (05/15/18 11:31) Comprehensive Metabolic Panel (05/15/18 11:31) Creatine Kinase (05/15/18 11:31) Hs C Reactive Protein (05/15/18 11:31) Magnesium (05/15/18 11:31) Thyroid Analyzer (05/15/18 11:31) Troponin I (05/15/18 11:31) Ua Culture If Indicated (05/15/18 11:31) Chest Pa/Lat (2 View) (05/15/18 11:31) Saline Lock/Iv-Start (05/15/18 11:31) Ekg Tracing (05/15/18 11:31) Orthostatic Vital Signs (Adult (05/15/18 11:31) Vital Signs/I&O 05/15/18 05/15/18 05/15/18 05/15/18 11:27 11:27 11:39 11:43 Temp 99.8 Pulse 71 73 71 Resp 20 B/P (MAP) 131/57 (81) 145/70 (95) 145/69 (94) Pulse Ox 95 O2 Delivery Room Air Room Air 05/15/18 05/15/18 11:44 14:01 Temp 98.0 Pulse 73 88 Resp 20 B/P (MAP) 145/65 143/60 (87) Pulse Ox 98 O2 Delivery Room Air Capillary Refill : Less Than 3 Seconds Blood Pressure Mean: 81 Progress Note : Progress Note Workup was unremarkable except for leukocytosis and CRP. No source of infection can be found. Patient was offered empiric antibiotics but declined. He commits to returning if symptoms worsen. He was advised to follow-up with his primary care provider on Thursday morning. Patient dismissal was delayed due to other critical emergencies. Patient chose to leave without receiving his written discharge instructions. Oxygen saturation prior to departure was in the low to mid 90s on room air. ECG Initial ECG Impression Date: May 15, 2018 Initial ECG Impression Time: 11:38 Initial ECG Rate: 64 Initial ECG Rhythm: Normal Sinus Initial ECG Intervals: Normal Initial ECG Impression: Normal Comment Normal sinus rhythm with no ST elevation or depression. No abnormal intervals or axis deviation. Diagnostic Imaging Diagonstic Imaging: Xray Plain Films/CT/US/NM/MRI: chest Comments Chest x-ray viewed by me and report reviewed. See report below: NAME: STEPHANY TIJERINA MED REC#: [id number] PT STATUS: REG ER : 1940 PHYSICIAN: VANDANA MARCUM MD ADMIT DATE: 05/15/18/ER Draft Date of Exam:05/15/18 CHEST PA/LAT (2 VIEW) INDICATION: Shortness of breath. COMPARISON: 05/04/2017. FINDINGS: No focal pneumonic consolidation, pleural effusion or pneumothorax. Normal heart size and pulmonary vasculature. Epidural spinal stimulator leads are seen terminating over the mid thoracic vertebral levels. IMPRESSION: No acute cardiopulmonary process. Dictated on workstation # [id number] Dict: 05/15/18 1213 Trans: 05/15/18 1217 [facility] [id number] Interpreted by: RAFA MONTGOMERY MD Departure Impression Primary Impression: Leukocytosis Qualified Codes: D72.829 - Elevated white blood cell count, unspecified Additional Impressions: Myalgia COPD (chronic obstructive pulmonary disease) Qualified Codes: J44.9 - Chronic obstructive pulmonary disease, unspecified Lightheadedness Disposition: 01 HOME, SELF-CARE Condition: Stable Departure-Patient Inst. Decision time for Depature: 14:01 Referrals: KENYETTA BALDWIN DO (PCP/Family) Primary Care Physician Patient Instructions: Chronic Obstructive Pulmonary Disease (COPD), Including Emphysema Copy Copies To 1: KENYETTA BALDWIN DO Copies To 2: JIM SPARROW MD [facility] VANDANA MARCUM MD May 15, 2018 11:46
[2018-05-15 11:51] VITALS: BP 143/60
[2018-05-15 11:51] LABS: BASOPHILS % (AUTO) 0 % (0-10); EOSINOPHILS # (AUTO) 0.1 10^3/uL (0.0-0.3); EOSINOPHILS % (AUTO) 1 % (0-10); HEMATOCRIT 39 % (40-54); LYMPHOCYTES # (AUTO) 1.2 X 10^3 (1.0-4.0); LYMPHOCYTES % (AUTO) 9 % (12-44); MEAN CORPUSCULAR HEMOGLOBIN 34 PG (25-34); MEAN CORPUSCULAR HGB CONC 33 G/DL (32-36); MEAN CORPUSCULAR VOLUME 101 FL (80-99); MONOCYTES # (AUTO) 2.1 X 10^3 (0.0-1.0); MONOCYTES % (AUTO) 17 % (0-12); NEUTROPHILS # (AUTO) 9.3 X 10^3 (1.8-7.8); NEUTROPHILS % (AUTO) 73 % (42-75); PLATELET COUNT 187 10^3/uL (130-400); RED BLOOD COUNT 3.86 10^6/uL (4.35-5.85); RED CELL DISTRIBUTION WIDTH 13.6 % (10.0-14.5); WHITE BLOOD COUNT 12.8 10^3/uL (4.3-11.0)
[2018-05-15 12:12] LABS: ALANINE AMINOTRANSFERASE 17 U/L (0-55); ALBUMIN 3.8 GM/DL (3.2-4.5); ALKALINE PHOSPHATASE 71 U/L (40-136); BILIRUBIN,TOTAL 1.1 MG/DL (0.1-1.0); BUN/CREATININE RATIO 13; CALCIUM 8.9 MG/DL (8.5-10.1); CARBON DIOXIDE 26 MMOL/L (21-32); CHLORIDE 97 MMOL/L (98-107); CREATINE KINASE 75 U/L (30-200); CREATININE SERUM 0.88 MG/DL (0.60-1.30); GFR ESTIMATED > 60; GLUCOSE 119 MG/DL (70-105); MAGNESIUM 1.9 MG/DL (1.8-2.4); POTASSIUM 4.4 MMOL/L (3.6-5.0); SODIUM 134 MMOL/L (135-145); TOTAL PROTEIN 7.2 GM/DL (6.4-8.2)
--- NOTE | 2018-05-15 12:17 | Diagnostic Imaging Report ---
CHEST PA/LAT (2 VIEW) INDICATION: Shortness of breath. COMPARISON: 05/04/2017. FINDINGS: No focal pneumonic consolidation, pleural effusion or pneumothorax. Normal heart size and pulmonary vasculature. Epidural spinal stimulator leads are seen terminating over the mid thoracic vertebral levels. IMPRESSION: No acute cardiopulmonary process. Dictated by: Dictated on workstation # [id number]
[2018-05-15 12:25] LABS: TSH (THYROID ANALYZER) 2.07 UIU/ML (0.35-4.94)
[2018-05-15 12:41] LABS: BILIRUBIN,URINE NEGATIVE (NEGATIVE); CLARITY,URINE SLIGHTLY CLOUDY; COLOR,URINE AMBER; GLUCOSE, URINE (UA) NEGATIVE (NEGATIVE); KETONES,URINE NEGATIVE (NEGATIVE); LEUKOCYTE ESTERASE ,URINE 1+ (NEGATIVE); NITRITE,URINE NEGATIVE (NEGATIVE); PH,URINE 6 (5-9); PROTEIN,URINE 1+ (NEGATIVE); UROBILINOGEN,URINE 1 MG/DL (NORMAL)
[2018-05-15 13:11] LABS: BACTERIA,URINE NEGATIVE /HPF; SQUAMOUS EPITHELIAL CELL,UR 0-2 /HPF; WBC,URINE 0-2 /HPF
[2018-05-15 14:01] VITALS: BP 145/65
== END 2018-05-15 14:01 | disposition home or self-care (01) ==
LOC: EDUNIT# 11:06 → ER 11:09
DX: D72.829 Elevated white blood cell count, unspecified (principal); J44.9 Chronic obstructive pulmonary disease, unspecified; M79.1 Myalgia; R42 Dizziness and giddiness; I25.10 Atherosclerotic heart disease of native coronary artery without angina pectoris; I10 Essential (primary) hypertension; E78.00 Pure hypercholesterolemia, unspecified; I73.9 Peripheral vascular disease, unspecified; F32.9 Major depressive disorder, single episode, unspecified; K21.9 Gastro-esophageal reflux disease without esophagitis; Z87.19 Personal history of other diseases of the digestive system; Z88.2 Allergy status to sulfonamides; Z79.51 Long term (current) use of inhaled steroids; Z79.82 Long term (current) use of aspirin; Z99.81 Dependence on supplemental oxygen; Z87.891 Personal history of nicotine dependence; Z95.5 Presence of coronary angioplasty implant and graft; Z87.01 Personal history of pneumonia (recurrent)
CPT/HCPCS: 36415; 71046; 80053; 81000; 82550; 83735; 83880; 84443; 84484; 85025; 86141; 93005

== ENCOUNTER 2019-03-16 05:38 | Outpatient (CLI) | payer MEDICARE, OTHER ==
[~2019-03-16] VITALS: Ht 177.8 cm; Wt 111.2 kg
[~2019-03-16 05:38] MED LIST changes: -GABA600T2 PO; +GBPN600T PO; +LOSA100T57 PO; -LOSA100T8 PO
[2019-03-17] MEDS ORDERED: FURO40TA4 PO (08:50)
[2019-03-17] MEDS ORDERED: METH750T3 PO (08:50)
[2019-03-17] MEDS ORDERED: DOCU100T7 PO (08:50)
[2019-03-17] MEDS ORDERED: BUDE10.2 IH (08:50)
[2019-03-17] MEDS ORDERED: MONT10TA24 PO (08:50)
[2019-03-17] MEDS ORDERED: ASPI-999 PO (08:50)
[2019-03-17] MEDS ORDERED: PREG150C PO (08:50)
== END 2019-03-17 08:54 | disposition home or self-care (01) ==
LOC: PREOP 05:38
PROVIDERS: ATTEND Specialist
DX: Z01.818 Encounter for other preprocedural examination (principal)

== ENCOUNTER 2019-03-18 09:27 | Day surgery (SDC) | payer MEDICARE, OTHER ==
[~2019-03-18] VITALS: Ht 177.8 cm; Wt 111.2 kg
[~2019-03-18 09:27] MED LIST changes: +ASPI-999 PO; +BUDE10.2 IH; +FURO40TA4 PO; +METH750T3 PO; +MONT10TA24 PO; +PREG150C PO
[2019-03-18] MEDS ORDERED: TIMOLOL MALEATE 0.5% 5 ML (TIMOPTIC) BTL OU PRN (09:45)
[2019-03-18] MEDS ORDERED: LIDOCAINE PF 1% 2 ML AMP IR PRN (09:45)
[2019-03-18] MEDS ORDERED: POVIDONE (BETADINE) OPHTH SOLN 5% 30 ML OP ONE (09:45)
[2019-03-18] MEDS ORDERED: MOXIFLOXACIN OPHTH SOLN 5 MG/ML 0.3 ML SYRINGE OP ONE (09:45)
[2019-03-18] MEDS: TETRACAINE 0.5% OPHTH SOLN 4 ML BTL (SINGLE DOSE ONLY) OU PRN ×4 (09:46→10:12)
[2019-03-18 09:47] VITALS: BP 136/66
[2019-03-18] MEDS: CYCLOPENTOLATE 1% (CYCLOGYL) 2 ML DROPS OP SCH ×3 (10:02→10:13)
[2019-03-18] MEDS: PHENYLEPHRINE 10% OPHTH (NEO-SYN) 5 ML BTL OU SCH ×3 (10:02→10:13)
--- NOTE | 2019-03-18 10:23 | Ophthalmologist Pre-Op Note ---
Pre-Operative Progress Note H&P Reviewed The H&P was reviewed, patient examined and no changes noted. Date H&P Reviewed: Mar 18, 2019 Time H&P Reviewed: 10:22 Pre-Op Dx Cataract, Right Eye LULU LENZ MD Mar 18, 2019 10:22
[2019-03-18] MEDS ORDERED: MIDAZOLAM 2 MG/2 ML (VERSED) VIAL ONE (10:26)
--- NOTE | 2019-03-18 10:58 | Ophthalmology Operative Report ---
Cataract removal/placement IOL PREOPERATIVE DIAGNOSIS: Cataract Right Eye POSTOPERATIVE DIAGNOSIS: Cataract Right Eye PROCEDURE: Cataract removal and placement of posterior chamber implant, right eye SURGEON: Ahsan Lenz ANESTHESIA: Topical with sedation COMPLICATIONS: None ESTIMATED BLOOD LOSS: Minimal DESCRIPTION OF PROCEDURE: After proper informed consent was obtained, the patient, a [id number] male, was taken to the Operating Room and the right eye was anesthetized with tetracaine. The right eye was then prepped and draped in the usual manner. A wire lid speculum was placed. A paracentesis was made at the left hand position. Preservative free lidocaine was injected into the anterior chamber followed by viscoelastic. A clear corneal incision was made in the temporal position. A capsulorrhexis was preformed and the central nuclear and cortical material were removed. The posterior capsule was polished and Piter 21.5 [id number] IOL was placed into the capsular bag. The residual viscoelastic was aspirated and balanced saline solution was injected into the anterior chamber. Moxifloxacin was injected into the anterior chamber. The wound was checked and found to be water tight. The patient tolerated the procedure well without complications. AHSAN LENZ MD Mar 18, 2019 10:58
[2019-03-18 11:02] VITALS: BP 131/62
--- NOTE | 2019-03-18 12:50 | Anesthesia-General Post-Op ---
MAC Patient Condition Mental Status/LOC: Same as Preop Cardiovascular: Satisfactory Nausea/Vomiting: Absent Respiratory: Satisfactory Pain: Controlled Complications: Absent Post Op Complications Complications None Follow Up Care/Instructions Patient Instructions None needed. Anesthesiology Discharge Order Discharge Order Patient is doing well, no complaints, stable vital signs, no apparent adverse anesthesia problems. No complications reported per nursing. HIRAM ANDREA CRNA Mar 18, 2019 12:49
--- OUTSIDE RECORDS SUMMARY | 2019-03-18 19:05 | XMS REPORT | Continuity of Care Document ---
Author Organization Unknown Address Unknown Allergies Active Description Code Type Severity Reaction Onset Reported/Identified Relationship to Patient Clinical Status Yes Sulfa (Sulfonamide Antibiotics) [id number] Drug Allergy Unknown N/A 03/16/2019 Medications There is no data. 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 12/06/2014 MERCEDES SMART MD Ot 272.0 PURE HYPERCHOLESTEROLEM 12/06/2014 MERCEDES SMART MD Ot 401.9 HYPERTENSION NOS 12/06/2014 MERCEDES SMART MD Ot 414.01 CORONARY ATHEROSCLEROSIS OF [place] CORON 12/06/2014 MERCEDES SMART MD Ot 455.0 [...] MAHAJAN, MERCEDES Ot V72.84 12/08/2014 BING MAHAJAN, TOMAAKI Ot 787.91 12/08/2014 BING MAHAJAN, TOMAAKI Ot 789.1 12/08/2014 BING MAHAJAN, TOMAACHUCK Ot 787.3 12/08/2014 BING MAHAJAN, TAKAACHUCK Ot 787.91 12/08/2014 BING MAHAJAN, TAKAACHUCK Ot 789.00 12/08/2014 KYARA MAHAJAN FACC, ALI FACP CCDS Ot 414.01 12/08/2014 KYARA MAHAJAN FACC, ALI FACP CCDS Ot 786.50 12/08/2014 Ot 787.91 12/08/2014 AKUA CHENG RESENDIZ Ot 787.91 12/08/2014 Ot 787.91 12/08/2014 BING [...] 241.0 03/06/2015 Ot 719.45 03/06/2015 TOYA MAHAJAN, JERONIMO P Ot 241.0 03/06/2015 TOYA MAHAJAN, JERONIMO P Ot 241.0 03/06/2015 TOYA MAHAJAN, JERONIMO P Ot V72.63 03/06/2015 TOYA MAHAJAN, JERONIMO P Ot V72.81 03/06/2015 TOYA MAHAJAN, JERONIMO P Ot V74.8 03/06/2015 BING MAHAJAN, MERCEDES Ot V72.84 03/06/2015 BING MAHAJAN, MERCEDES Ot 787.91 03/06/2015 BING MAHAJAN, MERCEEDS Ot 789.1 03/06/2015 BING MAHAJAN, MERCEDES Ot 787.3 03/06/2015 BING MAHAJAN, MERCEDES Ot 787.91 03/06/2015 BING MAHAJAN, MERCEDES Ot 789.00 03/06/2015 KYARA MAHAJAN [facility], [facility] CCDS Ot 414.01 03/06/2015 KYARA MAHAJAN FAC, ALI FAC CCDS Ot 786.50 03/06/2015 Ot 787.91 03/06/2015 AKUA RESENDIZ CHENG Dorsey Ot 787.91 03/06/2015 Ot 787.91 03/06/2015 BING [...] MAHAJAN, MERCEDES Ot V72.84 06/12/2015 BING MAHAJAN, MERCEDES Ot 787.91 06/12/2015 BING MAHAJAN, MERCEDES Ot 789.1 06/12/2015 BING MAHAJAN, MERCEDES Ot 787.3 06/12/2015 BING MAHAJAN, MERCEDES Ot 787.91 06/12/2015 BING MAHAJAN, MERCEDES Ot 789.00 06/12/2015 KYARA MAHAJAN FAC, ALI FAC CCDS Ot 414.01 06/12/2015 KYARA MAHAJAN FACC, ALI FACP CCDS Ot 786.50 06/12/2015 Ot 787.91 06/12/2015 CHENG FATIMA DO Ot 787.91 06/12/2015 Ot 787.91 06/12/2015 BING MAHAJAN, MERCEDES Ot V72.84 06/22/2015 Ot 553.1 06/22/2015 Ot [...] Ball Ot 241.0 06/22/2015 TOYA MAHAJAN, JERONIMO Ball Ot 241.0 06/22/2015 TOYA MAHAJAN, JERONIMO Ball Ot V72.63 06/22/2015 TOYA MAHAJAN, JERONIMO Ball Ot V72.81 06/22/2015 TOYA MAHAJAN, JERONIMO Ball [...] CCDS Ot 786.50 06/22/2015 Ot 787.91 06/22/2015 CHENG FATIMA DO Ot 787.91 06/22/2015 Ot 787.91 06/22/2015 MERCEDES SMART MD Ot V72.84 06/27/2015 Ot 553.1 06/27/2015 Ot [...] TOYA MAHAJAN, JERONIMO Ball Ot V74.8 06/27/2015 MERCEDES SMART MD Ot V72.84 06/27/2015 MERCEDES SMART MD Ot 787.91 06/27/2015 MERCEDES SMART MD Ot 789.1 06/27/2015 MERCEDES SMART MD Ot 787.3 06/27/2015 MERCEDES SMART MD Ot 787.91 06/27/2015 MERCEDES SMART MD Ot 789.00 06/27/2015 KYARA MAHAJAN FACWillie, JIM FACP CCDS Ot 414.01 06/27/2015 KYARA MAHAJAN FACWillie, ALI FACP CCDS Ot 786.50 06/27/2015 Ot 787.91 06/27/2015 CHENG FATIMA DO Ot 787.91 06/27/2015 Ot 787.91 06/27/2015 BING MAHAJAN, MERCEDES Ot V72.84 07/02/2015 KENYETTA BALDWIN DO Ot E04.1 07/02/2015 BAIMA, ERICK L ACCOUNTS RECEIVABLE COLLECTOR Ot E78.5 07/02/2015 BAIMA, ERICK L ACCOUNTS RECEIVABLE COLLECTOR Ot I10 07/02/2015 BAIMA, ERICK L ACCOUNTS RECEIVABLE COLLECTOR Ot I25.10 07/02/2015 BAIMA, ERICK L ACCOUNTS RECEIVABLE COLLECTOR Ot I73.9 07/02/2015 BAIMA, ERICK L ACCOUNTS RECEIVABLE COLLECTOR Ot I77.9 07/02/2015 BAIMA, ERICK L ACCOUNTS RECEIVABLE COLLECTOR Ot R07.9 07/18/2015 KENYETTA BALDWIN DO Ot E04.1 07/23/2015 BAIMA, ERICK L ACCOUNTS RECEIVABLE COLLECTOR Ot E78.5 07/23/2015 BAIMA, ERICK L ACCOUNTS RECEIVABLE COLLECTOR Ot I10 07/23/2015 BAIMA, ERICK L ACCOUNTS RECEIVABLE COLLECTOR Ot I25.10 07/23/2015 BAIMA, ERICK L ACCOUNTS RECEIVABLE COLLECTOR Ot I73.9 07/23/2015 BAIMA, ERICK L ACCOUNTS RECEIVABLE COLLECTOR Ot I77.9 07/23/2015 BAIMA, ERICK L ACCOUNTS RECEIVABLE COLLECTOR Ot R07.9 07/30/2015 FRANK MAHAJAN, YAYA Moreno Ot M54.5 07/30/2015 FRANK MAHAJAN, YAYA Moreno Ot M54.6 08/02/2015 KENYETTA BALDWIN DO S Ot E04.1 08/02/2015 BAIMA, ERICK L ACCOUNTS RECEIVABLE COLLECTOR Ot E78.5 08/02/2015 BAIMA, ERICK L ACCOUNTS RECEIVABLE COLLECTOR Ot I10 08/02/2015 BAIMA, ERICK L ACCOUNTS RECEIVABLE COLLECTOR Ot I25.10 08/02/2015 BAIMA, ERICK L ACCOUNTS RECEIVABLE COLLECTOR Ot I73.9 08/02/2015 BAIMA, ERICK L ACCOUNTS RECEIVABLE COLLECTOR Ot I77.9 08/02/2015 BAIMA, ERICK L ACCOUNTS RECEIVABLE COLLECTOR Ot R07.9 08/02/2015 BAIMA, ERICK L ACCOUNTS RECEIVABLE COLLECTOR Ot E78.5 08/02/2015 BAIMA, ERICK L ACCOUNTS RECEIVABLE COLLECTOR Ot I10 08/02/2015 BAIMA, ERICK L ACCOUNTS RECEIVABLE COLLECTOR Ot I25.10 08/02/2015 BAIMAERICK ACCOUNTS RECEIVABLE COLLECTOR Ot I73.9 08/02/2015 BAIMAERICK ACCOUNTS RECEIVABLE COLLECTOR Ot I77.9 08/02/2015 BAIMAERICK ACCOUNTS RECEIVABLE COLLECTOR Ot R07.9 08/02/2015 BAIMAERICK ACCOUNTS RECEIVABLE COLLECTOR Ot E78.5 08/02/2015 BAIMAERICK L ACCOUNTS RECEIVABLE COLLECTOR Ot I10 08/02/2015 BAIMAERICK ACCOUNTS RECEIVABLE COLLECTOR Ot I25.10 08/02/2015 BAIMAERICK ACCOUNTS RECEIVABLE COLLECTOR Ot I73.9 08/02/2015 BAIMAERICK ACCOUNTS RECEIVABLE COLLECTOR Ot I77.9 08/02/2015 BAIMAERICK ACCOUNTS RECEIVABLE COLLECTOR Ot R07.9 08/02/2015 KENYETTA BALDWIN DO Ot E04.1 08/13/2015 YAYA MARIE [...] MARIE MD Ot M51.16 09/06/2015 YAYA MARIE MD Ot Z79.899 09/14/2015 YAYA MARIE MD Ot M47.816 09/14/2015 YAYA MARIE MD, Ot M51.16 09/14/2015 YAYA MARIE MD Ot Z79.899 09/14/2015 YAYA MARIE MD, Ot M47.816 09/14/2015 YAYA MARIE MD, Ot M51.16 09/14/2015 YAYA MARIE MD, Ot Z79.899 10/05/2015 YAYA MARIE MD, Ot M47.816 SPONDYLOSIS W/O MYELOPATHY OR RADICULOPA 10/05/2015 YAYA MARIE MD, Ot M51.16 INTERVERTEBRAL DISC DISORDERS W RADICULO 10/05/2015 YAYA MARIE MD, Ot Z79.02 FPC (CURRENT) USE OF ANTITHROMBOTI 10/05/2015 YAYA MARIE MD, Ot Z79.899 OTHER FPC (CURRENT) DRUG THERAPY 10/19/2015 MELISSA LYNCH DO Ot F17.211 NICOTINE DEPENDENCE, CIGARETTES, IN [place] 10/19/2015 MELISSA LYNCH DO Ot I10 ESSENTIAL (PRIMARY) HYPERTENSION 10/19/2015 MELISSA LYNCH DO Ot J44.9 CHRONIC OBSTRUCTIVE PULMONARY DISEASE, U 12/11/2015 BAIMA, ERICK L ACCOUNTS RECEIVABLE COLLECTOR Ot E78.5 12/11/2015 BAIMA, ERICK L ACCOUNTS RECEIVABLE COLLECTOR Ot I10 12/11/2015 BAIMA, ERICK L ACCOUNTS RECEIVABLE COLLECTOR Ot I25.10 12/11/2015 BAIMA, ERICK L ACCOUNTS RECEIVABLE COLLECTOR Ot I73.9 12/11/2015 BAIMA, ERICK L ACCOUNTS RECEIVABLE COLLECTOR Ot I77.9 12/11/2015 BAIMA, ERICK L ACCOUNTS RECEIVABLE COLLECTOR Ot R07.9 12/11/2015 BAIMA, ERICK L ACCOUNTS RECEIVABLE COLLECTOR Ot E78.5 12/11/2015 BAIMA, ERICK L ACCOUNTS RECEIVABLE COLLECTOR Ot I10 12/11/2015 BAIMA, ERICK L ACCOUNTS RECEIVABLE COLLECTOR Ot I25.10 12/11/2015 BAIMA, ERICK L ACCOUNTS RECEIVABLE COLLECTOR Ot I73.9 12/11/2015 BAIMA, ERICK L ACCOUNTS RECEIVABLE COLLECTOR Ot I77.9 12/11/2015 BAIMA, ERICK L ACCOUNTS RECEIVABLE COLLECTOR Ot R07.9 12/11/2015 KENYETTA BALDWIN DO Ot E04.1 12/11/2015 YAYA MARIE MD Ot M54.5 12/11/2015 YAYA MARIE MD Ot M54.6 12/11/2015 YAYA MARIE MD, Ot M47.816 12/11/2015 YAYA MARIE MD Ot M51.16 12/11/2015 YAYA MARIE MD, Ot Z79.899 12/11/2015 LATRICIA ALVARES APRN Ot M47.21 12/11/2015 LATRICIA ALVARES APRN Ot R91.1 12/11/2015 BAIERICK FORTUNE Jesus ACCOUNTS RECEIVABLE COLLECTOR Ot E78.5 12/11/2015 BAIMA ERICK L ACCOUNTS RECEIVABLE COLLECTOR Ot I10 12/11/2015 BAIMA ERICK L ACCOUNTS RECEIVABLE COLLECTOR Ot I25.10 12/11/2015 BAIMA ERICK L ACCOUNTS RECEIVABLE COLLECTOR Ot I73.9 12/11/2015 BAIMA ERICK L ACCOUNTS RECEIVABLE COLLECTOR Ot I77.9 12/11/2015 BAIMAERICK L ACCOUNTS RECEIVABLE COLLECTOR Ot R07.9 12/11/2015 KENYETTA BALDWIN DO Ot E04.1 12/11/2015 YAYA MARIE MD Ot M54.5 12/11/2015 YAYA MARIE MD Ot M54.6 12/11/2015 YAYA MARIE MD Ot M47.816 12/11/2015 YAAY MARIE MD Ot M51.16 12/11/2015 YAYA MARIE MD, Ot Z79.899 12/11/2015 LATRICIA ALVARES APRN Ot M47.21 12/11/2015 LATRICIA ALVARES APRN Ot R91.1 12/11/2015 LATRICIA ALVARES APRN Ot M47.21 12/11/2015 LATRICIA ALVARES APRN Ot R91.1 12/17/2015 YAYA MARIE MD Ot M47.816 SPONDYLOSIS W/O MYELOPATHY OR RADICULOPA 12/17/2015 YAYA MARIE MD Ot M51.16 INTERVERTEBRAL DISC DISORDERS W RADICULO 12/17/2015 YAYA MARIE MD Ot Z79.02 FPC (CURRENT) USE OF ANTITHROMBOTI 12/17/2015 YAYA MARIE MD Ot Z79.899 OTHER FPC (CURRENT) DRUG THERAPY 12/24/2015 LATRICIA ALVARES APRN Ot 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, OCCIPT- 12/24/2015 LATRICIA ALVARES PRICE ECONOMIST Ot R91.1 SOLITARY PULMONARY NODULE 12/24/2015 LATRICIA ALVARES PRICE ECONOMIST Ot M47.21 OT SPONDYLOSIS W RADICULOPATHY, OCCIPT- 12/24/2015 LATRICIA ALVARES PRICE ECONOMIST Ot R91.1 SOLITARY PULMONARY NODULE 01/07/2016 LATRICIA ALVARES PRICE ECONOMIST Ot M47.21 OT SPONDYLOSIS W RADICULOPATHY, OCCIPT- 01/07/2016 LATRICIA ALVARES PRICE ECONOMIST Ot R91.1 SOLITARY PULMONARY NODULE 07/08/2016 KENYETTA BALDWIN DO Ot E04.1 NONTOXIC SINGLE THYROID NODULE 12/11/2016 Ot 241.0 NONTOX UNINODULAR GOITER 12/11/2016 Ot 241.0 NONTOX UNINODULAR GOITER 12/11/2016 Ot V72.84 EXAM PRE-OPERATIVE NOS 12/11/2016 Ot 722.52 LUMB/LUMBOSAC DISC DEGEN 12/11/2016 Ot 241.0 NONTOX UNINODULAR GOITER 12/11/2016 Ot 241.0 NONTOX UNINODULAR GOITER 12/11/2016 Ot 719.45 JOINT PAIN-PELVIS 12/11/2016 TOYA MAHAJAN, JERONIMO Ball Ot 241.0 NONTOX UNINODULAR GOITER 12/11/2016 TOYA MAHAJAN, JERONIMO Ball Ot 241.0 NONTOX UNINODULAR GOITER 12/11/2016 TOYA MAHAJAN, JERONIMO Ball Ot V72.63 PRE-PROCEDURAL LABORATORY EXAMINATION 12/11/2016 TOYA MAHAJAN, JERONIMO Ball Ot V72.81 [id number] CARDIOVASCULAR 12/11/2016 TOYA MAHAAJN, JERONIMO Ball Ot V74.8 SCREEN-BACTERIAL DIS NEC 12/11/2016 MERCEDES SMART MD Ot V72.84 EXAM PRE-OPERATIVE NOS 12/11/2016 MERCEDES SMART MD Ot 787.91 DIARRHEA 12/11/2016 MERCEDES SMART MD Ot 789.1 HEPATOMEGALY 12/11/2016 MERCEDES SMART MD Ot 787.3 FLATUL/ERUCTAT/GAS PAIN 12/11/2016 MERCEDES SMART MD Ot 787.91 DIARRHEA 12/11/2016 KIDO MD, TAKAAKI Ot 789.00 ABDOMINAL PAIN, UNSPECIFIED SITE 12/11/2016 KYARA MAHAJAN [facility], ALI JARETT CCDS Ot 414.01 CORONARY ATHEROSCLEROSIS OF [place] CORON 12/11/2016 KYARA MAHAJAN [facility], [facility] CCDS Ot 786.50 CHEST PAIN NOS 12/11/2016 Ot 787.91 DIARRHEA 12/11/2016 CHENG FATIMA DO Ot 787.91 DIARRHEA 12/11/2016 Ot 787.91 DIARRHEA 12/11/2016 MERCEDES SMART MD Ot V72.84 EXAM PRE-OPERATIVE NOS 12/11/2016 SAAD ERICK L ACCOUNTS RECEIVABLE COLLECTOR Ot E78.5 HYPERLIPIDEMIA, UNSPECIFIED 12/11/2016 BAIMA ERICK L ACCOUNTS RECEIVABLE COLLECTOR Ot I10 ESSENTIAL (PRIMARY) HYPERTENSION 12/11/2016 BAIMA ERICK L ACCOUNTS RECEIVABLE COLLECTOR Ot I25.10 ATHSCL HEART DISEASE OF [place] CORONARY 12/11/2016 BAIFLACO FORTUNEHER L ACCOUNTS RECEIVABLE COLLECTOR Ot I73.9 PERIPHERAL VASCULAR DISEASE, UNSPECIFIED 12/11/2016 ERICK NASH L ACCOUNTS RECEIVABLE COLLECTOR Ot I77.9 DISORDER OF ARTERIES AND ARTERIOLES, UNS 12/11/2016 ZOËMA ERICK L ACCOUNTS RECEIVABLE COLLECTOR Ot R07.9 CHEST PAIN, UNSPECIFIED 12/11/2016 KENYETTA BALDWIN DO Ot E04.1 NONTOXIC SINGLE THYROID NODULE 12/11/2016 YAYA MARIE MD Ot M54.5 LOW BACK PAIN 12/11/2016 YAYA MARIE MD Ot M54.6 PAIN IN THORACIC SPINE 12/11/2016 YAYA MARIE MD Ot M47.816 SPONDYLOSIS W/O MYELOPATHY OR RADICULOPA 12/11/2016 YAYA MARIE MD Ot M51.16 INTERVERTEBRAL DISC DISORDERS W RADICULO 12/11/2016 YAYA MARIE MD Ot Z79.899 OTHER ASSET SPECIALIST (CURRENT) DRUG THERAPY 12/11/2016 LATRICIA ALVARSE APRN Ot 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, OCCIPT- 12/11/2016 LATRICIA ALVARES PRICE ECONOMIST Ot R91.1 SOLITARY PULMONARY NODULE 12/16/2016 LATRICIA ALVARES PRICE ECONOMIST Ot R05 COUGH 12/16/2016 LATRICIA ALVARES PRICE ECONOMIST Ot R09.89 OTH SYMPTOMS AND SIGNS INVOLVING THE CIR 12/19/2016 KYARA MAHAJAN [facility], [facility] Ot I25.10 ATHSCL HEART DISEASE OF [place] CORONARY 12/22/2016 KYARA MAHAJAN [facility], [facility] Ot I25.10 ATHSCL HEART DISEASE OF [place] CORONARY 12/26/2016 SEEMA BALDWIN DOLINE S Ot I10 ESSENTIAL (PRIMARY) HYPERTENSION 12/26/2016 SEEMA BALDWIN DOLINE S Ot I95.1 ORTHOSTATIC HYPOTENSION 12/26/2016 SEEMA BALDWIN DOLINE S Ot J44.9 CHRONIC OBSTRUCTIVE PULMONARY DISEASE, U 12/26/2016 SEEMA BALDWIN DOLINE S Ot M54.9 DORSALGIA, UNSPECIFIED 12/26/2016 SEEMA BALDWIN DOLINE S Ot R00.1 BRADYCARDIA, UNSPECIFIED 12/26/2016 SEEMA BALDWIN DOLINE S Ot Z87.01 PERSONAL HISTORY OF PNEUMONIA (RECURRENT 12/26/2016 SEEMA BALDWIN DOLINE S Ot Z87.891 PERSONAL HISTORY OF NICOTINE DEPENDENCE 12/26/2016 SEEMA BALDWIN DOLINE S Ot Z95.5 PRESENCE OF CORONARY ANGIOPLASTY IMPLANT 12/30/2016 Ot 241.0 NONTOX UNINODULAR GOITER 12/30/2016 Ot 241.0 NONTOX UNINODULAR GOITER 12/30/2016 Ot V72.84 EXAM PRE-OPERATIVE NOS 12/30/2016 Ot 722.52 LUMB/LUMBOSAC DISC DEGEN 12/30/2016 Ot 241.0 NONTOX UNINODULAR GOITER 12/30/2016 Ot 241.0 NONTOX UNINODULAR GOITER 12/30/2016 Ot 719.45 JOINT PAIN-PELVIS 12/30/2016 JERONIMO PITTMAN MD Ot 241.0 NONTOX UNINODULAR GOITER 12/30/2016 JERONIMO PITTMAN MD Ot 241.0 NONTOX UNINODULAR GOITER 12/30/2016 JERONIMO PITTMAN MD Ot V72.63 PRE-PROCEDURAL LABORATORY EXAMINATION 12/30/2016 JERONIMO PITTMAN MD Ot V72.81 [id number] CARDIOVASCULAR 12/30/2016 JERONIMO PITTMAN MD Ot V74.8 SCREEN-BACTERIAL DIS NEC 12/30/2016 MERCEDES SMART MD Ot V72.84 EXAM PRE-OPERATIVE NOS 12/30/2016 MERCEDES SMART MD Ot 787.91 DIARRHEA 12/30/2016 MERCEDES SMART MD Ot 789.1 HEPATOMEGALY 12/30/2016 MERCEDES SMART MD Ot 787.3 FLATUL/ERUCTAT/GAS PAIN 12/30/2016 MERCEDES SMART MD Ot 787.91 DIARRHEA 12/30/2016 MERCEDES SMART MD Ot 789.00 ABDOMINAL PAIN, UNSPECIFIED SITE 12/30/2016 KYARA MAHAJAN FAC, AL[facility] CCDS Ot 414.01 CORONARY ATHEROSCLEROSIS OF [place] CORON 12/30/2016 KYARA MAHAJAN FAC, ALI [facility] CCDS Ot 786.50 CHEST PAIN NOS 12/30/2016 Ot 787.91 DIARRHEA 12/30/2016 GELARCENIO RESENDIZ CHENG Willian Ot 787.91 DIARRHEA 12/30/2016 Ot 787.91 DIARRHEA 12/30/2016 MERCEDES SMART MD Ot V72.84 EXAM PRE-OPERATIVE NOS 12/30/2016 ERICK NASH ACCOUNTS RECEIVABLE COLLECTOR Ot E78.5 HYPERLIPIDEMIA, UNSPECIFIED 12/30/2016 ERICK NASH L ACCOUNTS RECEIVABLE COLLECTOR Ot I10 ESSENTIAL (PRIMARY) HYPERTENSION 12/30/2016 ERICK NASH ACCOUNTS RECEIVABLE COLLECTOR Ot I25.10 ATHSCL HEART DISEASE OF [place] CORONARY 12/30/2016 ERICK NASH ACCOUNTS RECEIVABLE COLLECTOR Ot I73.9 PERIPHERAL VASCULAR DISEASE, UNSPECIFIED 12/30/2016 ERICK NASH ACCOUNTS RECEIVABLE COLLECTOR Ot I77.9 DISORDER OF ARTERIES AND ARTERIOLES, UNS 12/30/2016 ERICK NASH ACCOUNTS RECEIVABLE COLLECTOR Ot R07.9 CHEST PAIN, UNSPECIFIED 12/30/2016 KENYETTA BALDWIN DO Ot E04.1 NONTOXIC SINGLE THYROID NODULE 12/30/2016 YAYA MARIE MD Ot M54.5 LOW BACK PAIN 12/30/2016 YAYA MARIE MD Ot M54.6 PAIN IN THORACIC SPINE 12/30/2016 YAYA MARIE MD Ot M47.816 SPONDYLOSIS W/O MYELOPATHY OR RADICULOPA 12/30/2016 YAYA MARIE MD Ot M51.16 INTERVERTEBRAL DISC DISORDERS W RADICULO 12/30/2016 YAYA MARIE MD Ot Z79.899 OTHER FPC (CURRENT) DRUG THERAPY 12/30/2016 LATRICIA ALVARES APRN Ot 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, OCCIPT- 12/30/2016 LATRICIA ALVARES PRICE ECONOMIST Ot R91.1 SOLITARY PULMONARY NODULE 12/30/2016 LATRICIA ALVARES PRICE ECONOMIST Ot R05 COUGH 12/30/2016 LATRICIA ALVARES PRICE ECONOMIST Ot R09.89 OTH SYMPTOMS AND SIGNS INVOLVING THE CIR 12/30/2016 KYARA MAHAJAN FACC, ALI FACP CCDS Ot I25.10 ATHSCL HEART DISEASE OF [place] CORONARY 12/30/2016 KYARA DENSONC, ALI FACP CCDS Ot I25.10 ATHSCL HEART DISEASE OF [place] CORONARY 12/30/2016 KYARA DENSONC, ALI FACP CCDS Ot I25.10 ATHSCL HEART DISEASE OF [place] CORONARY 12/30/2016 KYARA MAHAJAN FACC, ALI FACP CCDS Ot I25.10 ATHSCL HEART DISEASE OF [place] CORONARY 12/31/2016 KYARA MAHAJAN FACC, ALI FACP CCDS Ot E78.4 OTHER HYPERLIPIDEMIA 12/31/2016 KYARA MAHAJAN FACC, ALI FACP CCDS Ot I10 ESSENTIAL (PRIMARY) HYPERTENSION 12/31/2016 KYARA MAHAJAN FACC, ALI FACP CCDS Ot I25.10 ATHSCL HEART DISEASE OF [place] CORONARY 12/31/2016 KYARA MAHAJAN FACC, ALI FACP CCDS Ot 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 12/31/2016 KYARA MAHAJAN FACC, ALI FACP CCDS Ot I70.213 ATHSCL [place] ARTERIES OF EXTRM W INTRMT 12/31/2016 KYARA DENSONC, ALI FACP CCDS Ot J43.8 OTHER EMPHYSEMA 12/31/2016 KYARA MAHAJAN FACC, ALI FACP CCDS Ot R06.02 SHORTNESS OF BREATH 12/31/2016 KYARA MAHAJAN FACC, ALI FACP CCDS Ot Z87.891 PERSONAL HISTORY OF NICOTINE DEPENDENCE 01/07/2017 LATRICIA ALVARES PRICE ECONOMIST Ot R05 COUGH 01/07/2017 LATRICIA ALVARES PRICE ECONOMIST Ot R09.89 OTH SYMPTOMS AND SIGNS INVOLVING THE CIR 01/13/2017 LATRICIA ALVARES PRICE ECONOMIST Ot R05 COUGH 01/13/2017 LATRICIA ALAVRES PRICE ECONOMIST Ot R09.89 OTH SYMPTOMS AND SIGNS INVOLVING THE CIR 01/16/2017 YAYA MARIE MD Ot M51.16 INTERVERTEBRAL DISC DISORDERS W RADICULO 01/16/2017 YAYA MARIE MD Ot M79.1 MYALGIA 01/16/2017 YAYA MARIE MD Ot Z79.899 OTHER ASSET SPECIALIST (CURRENT) DRUG THERAPY 01/21/2017 KYARA MAHAJAN FACC, ALI FACP CCDS Ot E78.4 OTHER HYPERLIPIDEMIA 01/21/2017 KYARA MAHAJAN FACC, ALI FACP CCDS Ot I10 ESSENTIAL (PRIMARY) HYPERTENSION 01/21/2017 KYARA MAHAJAN FACWillie, ALI FACP CCDS Ot I25.10 ATHSCL HEART DISEASE OF [place] CORONARY 01/21/2017 KYARA MAHAJAN FACC, ALI FACP CCDS Ot 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 01/21/2017 KYARA MAHAJAN FACC, ALI FACP CCDS Ot I70.213 ATHSCL [place] ARTERIES OF EXTRM W INTRMT 01/21/2017 KYARA MAHAJAN FACC, ALI FACP CCDS Ot J43.8 OTHER EMPHYSEMA 01/21/2017 KYARA MAHAJAN FACC, ALI FACP CCDS Ot R06.02 SHORTNESS OF BREATH 01/21/2017 KYARA MAHAJAN FACC, ALI FACP CCDS Ot Z87.891 PERSONAL HISTORY OF NICOTINE DEPENDENCE 01/21/2017 YAYA MARIE MD Ot M51.16 INTERVERTEBRAL DISC DISORDERS W RADICULO 01/21/2017 YAYA MARIE MD Ot M79.1 MYALGIA 01/21/2017 YAYA MARIE MD Ot Z79.899 OTHER FPC (CURRENT) DRUG THERAPY 02/02/2017 KYARA MAHAJAN FACC, JIM FACP CCDS Ot E78.4 OTHER HYPERLIPIDEMIA 02/02/2017 KYARA MAHAJAN FACC, ALI FACP CCDS Ot I10 ESSENTIAL (PRIMARY) HYPERTENSION 02/02/2017 KYARA MAHAJAN FACC, ALI FACP CCDS Ot I25.10 ATHSCL HEART DISEASE OF [place] CORONARY 02/02/2017 KYARA MAHAJAN FACC, ALI FACP CCDS Ot 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 02/02/2017 KYARA DENSONC, ALI FACP CCDS Ot I70.213 ATHSCL [place] ARTERIES OF EXTRM W INTRMT 02/02/2017 KYARA MAHAJAN FACC, ALI FACP CCDS Ot J43.8 OTHER EMPHYSEMA 02/02/2017 KYARA DENSONC, ALI FACP CCDS Ot R06.02 SHORTNESS OF BREATH 02/02/2017 KYARA MAHAJAN [facility], [facility] CCDS Ot Z87.891 PERSONAL HISTORY OF NICOTINE DEPENDENCE 05/02/2017 SEEMA BALDWIN DOLINE S Ot E66.01 MORBID (SEVERE) OBESITY DUE TO EXCESS CA 05/02/2017 GILNDER , KENYETTA S Ot E86.0 DEHYDRATION 05/02/2017 GILNDSEEMA MARKHAM DOLINE S Ot I25.10 ATHSCL HEART DISEASE OF [place] CORONARY 05/02/2017 GILNDER DO, KENYETTA S Ot I70.0 ATHEROSCLEROSIS OF [place] 05/02/2017 GILNDER , KENYETTA S Ot K55.1 CHRONIC VASCULAR DISORDERS OF INTESTINE 05/02/2017 GILNDER DO, KENYETTA S Ot M54.9 DORSALGIA, UNSPECIFIED 05/02/2017 GILNDER DO, KENYETTA S Ot N17.0 ACUTE KIDNEY FAILURE WITH TUBULAR NECROS 05/02/2017 GILNDER KENYETTA S Ot N28.9 DISORDER OF KIDNEY AND URETER, UNSPECIFI 05/02/2017 GILNDER DO, KENYETTA S Ot R07.9 CHEST PAIN, UNSPECIFIED 05/02/2017 GILNDER DO, KENYETTA S Ot R10.13 EPIGASTRIC PAIN 05/02/2017 GILNDER , KENYETTA S Ot R41.82 ALTERED MENTAL STATUS, UNSPECIFIED 05/02/2017 GILNDER DO, KENYETTA S Ot R53.83 OTHER FATIGUE 05/02/2017 GILNDER , KENYETTA S Ot R57.9 SHOCK, UNSPECIFIED 05/02/2017 GILNDER , KENYETTA S Ot T40.2X5A ADVERSE EFFECT OF OTHER OPIOIDS, INITIAL 05/02/2017 GILNDER DO, KENYETTA S Ot T40.4X5A ADVERSE EFFECT OF OTHER SYNTHETIC NARCOT 05/02/2017 GILNDER DO, KENYETTA S Ot Z68.42 BODY MASS INDEX (BMI) 45.0-49.9, ADULT 05/02/2017 GILNDER DO, KENYETTA S Ot Z95.1 PRESENCE OF AORTOCORONARY BYPASS GRAFT 05/02/2017 GILNDER DO KENYETTA S Ot Z95.5 PRESENCE OF CORONARY ANGIOPLASTY IMPLANT 05/02/2017 GILNDER DO, KENYETTA S Ot Z98.890 OTHER SPECIFIED POSTPROCEDURAL STATES 05/02/2017 SEEMA BALDWIN DOLINE S Ot E66.01 MORBID (SEVERE) OBESITY DUE TO EXCESS CA 05/02/2017 SEEMA BALDWIN DOLINE S Ot E86.0 DEHYDRATION 05/02/2017 SEEMA BALDWIN DOLINE S Ot I25.10 ATHSCL HEART DISEASE OF [place] CORONARY 05/02/2017 SEEMA BALDWIN DOLINE S Ot I70.0 ATHEROSCLEROSIS OF [place] 05/02/2017 NICOLASA RESENDIZ KENYETTA S Ot K55.1 CHRONIC VASCULAR DISORDERS OF INTESTINE 05/02/2017 NICOLASA RESENDIZ KENYETTA S Ot M54.9 DORSALGIA, UNSPECIFIED 05/02/2017 NICOLASA RESENDIZ KENYETTA S Ot N17.0 ACUTE KIDNEY FAILURE WITH TUBULAR NECROS 05/02/2017 NICOLASA RESENDIZ KENYETTA S Ot N28.9 DISORDER OF KIDNEY AND URETER, UNSPECIFI 05/02/2017 NICOLASA RESENDIZ KENYETTA S Ot R07.9 CHEST PAIN, UNSPECIFIED 05/02/2017 NICOLASA RESENDIZ KENYETTA S Ot R10.13 EPIGASTRIC PAIN 05/02/2017 NICOLASA RESENDIZ KENYETTA S Ot R41.82 ALTERED MENTAL STATUS, UNSPECIFIED 05/02/2017 NICOLASA RESENDIZ KENYETTA S Ot R53.83 OTHER FATIGUE 05/02/2017 NICOLASA RESENDIZ KENYETTA S Ot R57.9 SHOCK, UNSPECIFIED 05/02/2017 NICOLASA RESENDIZ KENYETTA S Ot T40.2X5A ADVERSE EFFECT OF OTHER OPIOIDS, INITIAL 05/02/2017 NICOLASA RESENDIZ KENYETTA S Ot T40.4X5A ADVERSE EFFECT OF OTHER SYNTHETIC NARCOT 05/02/2017 GILNDSHAHRZAD RESENDIZ KENYETTA S Ot Z68.42 BODY MASS INDEX (BMI) 45.0-49.9, ADULT 05/02/2017 GILFRANCISCO RESENDIZ KENYETTA S Ot Z95.1 PRESENCE OF AORTOCORONARY BYPASS GRAFT 05/02/2017 KEITHSHAHRZAD RESENDIZ KENYETTA S Ot Z95.5 PRESENCE OF CORONARY ANGIOPLASTY IMPLANT 05/02/2017 NICOLASA RESENDIZ KENYETTA S Ot Z98.890 OTHER SPECIFIED POSTPROCEDURAL STATES 05/03/2017 SEEMA BALDWIN DOLINE S Ot E66.01 MORBID (SEVERE) OBESITY DUE TO EXCESS CA 05/03/2017 SEEMA BALDWIN DOLINE S Ot E86.0 DEHYDRATION 05/03/2017 SEEMA BALDWIN DOLINE S Ot I25.10 ATHSCL HEART DISEASE OF [place] CORONARY 05/03/2017 SEEMA BALDWIN DOLINE S Ot I70.0 ATHEROSCLEROSIS OF [place] 05/03/2017 SEEMA BALDWIN DOLINE S Ot K55.1 CHRONIC VASCULAR DISORDERS OF INTESTINE 05/03/2017 NICOLASA RESENDIZ KENYETTA S Ot M54.9 DORSALGIA, UNSPECIFIED 05/03/2017 SEEMA BALDWIN DOLINE S Ot N17.0 ACUTE KIDNEY FAILURE WITH TUBULAR NECROS 05/03/2017 SEEMA BALDWIN DOLINE S Ot N28.9 DISORDER OF KIDNEY AND URETER, UNSPECIFI 05/03/2017 NICOLASA RESENDIZ KENYETTA S Ot R07.9 CHEST PAIN, UNSPECIFIED 05/03/2017 NICOLASA RESENDIZ KENYETTA S Ot R10.13 EPIGASTRIC PAIN 05/03/2017 NICOLASA RESENDIZ KENYETTA S Ot R41.82 ALTERED MENTAL STATUS, UNSPECIFIED 05/03/2017 SEEMA BALDWIN DOLINE S Ot R53.83 OTHER FATIGUE 05/03/2017 SEEMA BALDWIN DOLINE S Ot R57.9 SHOCK, UNSPECIFIED 05/03/2017 SEEMA BALDWIN DOLINE S Ot T40.2X5A ADVERSE EFFECT OF OTHER OPIOIDS, INITIAL 05/03/2017 SEEMA BALDWIN DOLINE S Ot T40.4X5A ADVERSE EFFECT OF OTHER SYNTHETIC NARCOT 05/03/2017 NICOLASA RESENDIZ KENYETTA S Ot Z68.42 BODY MASS INDEX (BMI) 45.0-49.9, ADULT 05/03/2017 SEEMA BALDWIN DOLINE S Ot Z95.1 PRESENCE OF AORTOCORONARY BYPASS GRAFT 05/03/2017 NICOLASA RESENDIZ KENYETTA S Ot Z95.5 PRESENCE OF CORONARY ANGIOPLASTY IMPLANT 05/03/2017 SEEMA BALDWIN DOLINE S Ot Z98.890 OTHER SPECIFIED POSTPROCEDURAL STATES 05/04/2017 NICOLASA RESENDIZ KENYETTA S Ot E66.01 MORBID (SEVERE) OBESITY DUE TO EXCESS CA 05/04/2017 GILNDER DO, KENYETTA S Ot E86.0 DEHYDRATION 05/04/2017 GILNDER SEEMA RESENDIZLINE S Ot I25.10 ATHSCL HEART DISEASE OF [place] CORONARY 05/04/2017 NICOLASA RESENDIZ, KENYETTA S Ot I70.0 ATHEROSCLEROSIS OF [place] 05/04/2017 GILNDER , KENYETTA S Ot K55.1 CHRONIC VASCULAR DISORDERS OF INTESTINE 05/04/2017 GILNDER DO, KENYETTA S Ot M54.9 DORSALGIA, UNSPECIFIED 05/04/2017 GILNDER DO, KENYETTA S Ot N17.0 ACUTE KIDNEY FAILURE WITH TUBULAR NECROS 05/04/2017 GILNDER DO, KENYETTA S Ot N28.9 DISORDER OF KIDNEY AND URETER, UNSPECIFI 05/04/2017 GILNDER DO, KENYETTA S Ot R07.9 CHEST PAIN, UNSPECIFIED 05/04/2017 GILNDER DO, KENYETTA S Ot R10.13 EPIGASTRIC PAIN 05/04/2017 NICOLASA RESENDIZ, KENYETTA S Ot R41.82 ALTERED MENTAL STATUS, UNSPECIFIED 05/04/2017 GILNDER DO, KENYETTA S Ot R53.83 OTHER FATIGUE 05/04/2017 GILNDER DO, KENYETTA S Ot R57.9 SHOCK, UNSPECIFIED 05/04/2017 GILNDER DO, KENYETTA S Ot T40.2X5A ADVERSE EFFECT OF OTHER OPIOIDS, INITIAL 05/04/2017 GILNDER SEEMA RESENDIZLINE S Ot T40.4X5A ADVERSE EFFECT OF OTHER SYNTHETIC NARCOT 05/04/2017 SEEMA BALDWIN DOLINE S Ot Z68.42 BODY MASS INDEX (BMI) 45.0-49.9, ADULT 05/04/2017 GILNDER , KENYETTA S Ot Z95.1 PRESENCE OF AORTOCORONARY BYPASS GRAFT 05/04/2017 GILNDER , KENYETTA S Ot Z95.5 PRESENCE OF CORONARY ANGIOPLASTY IMPLANT 05/04/2017 NICOLASA RESENDIZ, KENYETTA S Ot Z98.890 OTHER SPECIFIED POSTPROCEDURAL STATES 05/05/2017 GILNDSEEMA MARKHAM DOLINE S Ot E66.01 MORBID (SEVERE) OBESITY DUE TO EXCESS CA 05/05/2017 GILNDER DO, KENYETTA S Ot E86.0 DEHYDRATION 05/05/2017 NICOLASA RESENDIZ KENYETTA S Ot I25.10 ATHSCL HEART DISEASE OF [place] CORONARY 05/05/2017 NICOLASA RESENDIZ KENYETTA S Ot I70.0 ATHEROSCLEROSIS OF [place] 05/05/2017 NICOLASA RESENDIZ KENYETTA S Ot K55.1 CHRONIC VASCULAR DISORDERS OF INTESTINE 05/05/2017 NICOLASA RESENDIZ KENYETTA S Ot M54.9 DORSALGIA, UNSPECIFIED 05/05/2017 NICOLASA RESENDIZ KENYETTA S Ot N17.0 ACUTE KIDNEY FAILURE WITH TUBULAR NECROS 05/05/2017 [facility] S Ot N28.9 DISORDER OF KIDNEY AND URETER, UNSPECIFI 05/05/2017 NICOLASA RESENDIZ KENYETTA S Ot R07.9 CHEST PAIN, UNSPECIFIED 05/05/2017 KEITH KENYETTA S Ot R10.13 EPIGASTRIC PAIN 05/05/2017 NICOLASA RESENDIZ KENYETTA S Ot R41.82 ALTERED MENTAL STATUS, UNSPECIFIED 05/05/2017 NICOLASA RESENDIZ KENYETTA S Ot R53.83 OTHER FATIGUE 05/05/2017 KEITH KENYETTA S Ot R57.9 SHOCK, UNSPECIFIED 05/05/2017 NICOLASA RESENDIZ KENYETTA S Ot T40.2X5A ADVERSE EFFECT OF OTHER OPIOIDS, INITIAL 05/05/2017 NICOLASA RESENDIZ KENYETTA S Ot T40.4X5A ADVERSE EFFECT OF OTHER SYNTHETIC NARCOT 05/05/2017 GILFRANCISCO RESENDIZ KENYETTA S Ot Z68.42 BODY MASS INDEX (BMI) 45.0-49.9, ADULT 05/05/2017 NICOLASA RESENDIZ KENYETTA S Ot Z95.1 PRESENCE OF AORTOCORONARY BYPASS GRAFT 05/05/2017 KEITHSHAHRZAD RESENDIZ KENYETTA S Ot Z95.5 PRESENCE OF CORONARY ANGIOPLASTY IMPLANT 05/05/2017 KEITHSHAHRZAD RESENDIZ KENYETTA S Ot Z98.890 OTHER SPECIFIED POSTPROCEDURAL STATES 05/06/2017 KEITHSHAHRZAD RESENDIZ KENYETTA S Ot E66.01 MORBID (SEVERE) OBESITY DUE TO EXCESS CA 05/06/2017 KEITHSHAHRZAD DO KENYETTA S Ot E86.0 DEHYDRATION 05/06/2017 GILFRANCISCO RESENDIZ KENYETTA S Ot I25.10 ATHSCL HEART DISEASE OF [place] CORONARY 05/06/2017 NICOLASA RESENDIZ KENYETTA S Ot I70.0 ATHEROSCLEROSIS OF [place] 05/06/2017 KEITHSHAHRZAD RESENDIZ KENYETTA S Ot K55.1 CHRONIC VASCULAR DISORDERS OF INTESTINE 05/06/2017 NICOLASA RESENDIZ KENYETTA S Ot M54.9 DORSALGIA, UNSPECIFIED 05/06/2017 GILCONORER DO KENYETTA S Ot N17.0 ACUTE KIDNEY FAILURE WITH TUBULAR NECROS 05/06/2017 GILNDER KENYETTA S Ot N28.9 DISORDER OF KIDNEY AND URETER, UNSPECIFI 05/06/2017 KEITHER KENYETTA S Ot R07.9 CHEST PAIN, UNSPECIFIED 05/06/2017 KEITHSHAHRZAD RESENDIZ KENYETTA S Ot R10.13 EPIGASTRIC PAIN 05/06/2017 NICOLASA RESENDIZ KENYETTA S Ot R41.82 ALTERED MENTAL STATUS, UNSPECIFIED 05/06/2017 NICOLASA RESENDIZ KENYETTA S Ot R53.83 OTHER FATIGUE 05/06/2017 KEITHSHAHRZAD RESENDIZ KENYETTA S Ot R57.9 SHOCK, UNSPECIFIED 05/06/2017 KEITHSHAHRZAD RESENDIZ KENYETTA S Ot T40.2X5A ADVERSE EFFECT OF OTHER OPIOIDS, INITIAL 05/06/2017 KEITHSHAHRZAD RESENDIZ KENYETTA S Ot T40.4X5A ADVERSE EFFECT OF OTHER SYNTHETIC NARCOT 05/06/2017 NICOLASA RESENDIZ KENYETTA S Ot Z68.42 BODY MASS INDEX (BMI) 45.0-49.9, ADULT 05/06/2017 NICOLASA RESENDIZ KENYETTA S Ot Z95.1 PRESENCE OF AORTOCORONARY BYPASS GRAFT 05/06/2017 NICOLASA RESENDIZ KENYETTA S Ot Z95.5 PRESENCE OF CORONARY ANGIOPLASTY IMPLANT 05/06/2017 NICOLASA RESENDIZ KENYETTA S Ot Z98.890 OTHER SPECIFIED POSTPROCEDURAL STATES 05/06/2017 NICOLASA RESENDIZ KENYETTA S Ot E66.01 MORBID (SEVERE) OBESITY DUE TO EXCESS CA 05/06/2017 SEEMA BALDWIN DOLINE S Ot E86.0 DEHYDRATION 05/06/2017 NICOLASA RESENDIZ KENYETTA S Ot E87.70 FLUID OVERLOAD, UNSPECIFIED 05/06/2017 ORENDER DO, KENYETTA S Ot G47.33 OBSTRUCTIVE SLEEP APNEA (ADULT) (PEDIATR 05/06/2017 ORENDER DO, KENYETTA S Ot I10 ESSENTIAL (PRIMARY) HYPERTENSION 05/06/2017 GILNDER DO KENYETTA S Ot I25.10 ATHSCL HEART DISEASE OF [place] CORONARY 05/06/2017 ORENDER DO, KENYETTA S Ot I70.0 ATHEROSCLEROSIS OF [place] 05/06/2017 GILNDER DO KENYETTA S Ot I95.9 HYPOTENSION, UNSPECIFIED 05/06/2017 ORENDER DO, KENYETTA S Ot J18.9 PNEUMONIA, UNSPECIFIED ORGANISM 05/06/2017 ORENDER DO KENYETTA S Ot J20.9 ACUTE BRONCHITIS, UNSPECIFIED 05/06/2017 GILNDER DO KENYETTA S Ot J44.0 CHRONIC OBSTRUCTIVE PULMON DISEASE W ACU 05/06/2017 GILNDER DOKARIMEKENYETTA S Ot J44.1 CHRONIC OBSTRUCTIVE PULMONARY DISEASE W 05/06/2017 GILNDER SEEMA RESENDIZLINE S Ot J81.1 CHRONIC PULMONARY EDEMA 05/06/2017 GILNDER DO KENYETTA S Ot K21.9 GASTRO-ESOPHAGEAL REFLUX DISEASE WITHOUT 05/06/2017 ORENDER DO, KENYETTA S Ot K55.1 CHRONIC VASCULAR DISORDERS OF INTESTINE 05/06/2017 GILNDER DOKARIMEKENYETTA S Ot K59.00 CONSTIPATION, UNSPECIFIED 05/06/2017 GILNDER DO KENYETTA S Ot M54.9 DORSALGIA, UNSPECIFIED 05/06/2017 GILNDER DO KENYETTA S Ot N17.0 ACUTE KIDNEY FAILURE WITH TUBULAR NECROS 05/06/2017 GILNDER DO, KENYETTA S Ot N28.9 DISORDER OF KIDNEY AND URETER, UNSPECIFI 05/06/2017 GILNDER DO, KENYETTA S Ot R07.9 CHEST PAIN, UNSPECIFIED 05/06/2017 GILNDER DO, KENYETTA S Ot R33.9 RETENTION OF URINE, UNSPECIFIED 05/06/2017 GILNDER DO, KENYETTA S Ot R41.82 ALTERED MENTAL STATUS, UNSPECIFIED 05/06/2017 ORENDER DO KENYETTA S Ot R53.83 OTHER FATIGUE 05/06/2017 ORENDER DO, KENYETTA S Ot R57.8 OTHER SHOCK 05/06/2017 SEEMA BALDWIN DOLINE S Ot R57.9 SHOCK, UNSPECIFIED 05/06/2017 KENYETTA BALDWIN DO Ot R94.31 ABNORMAL ELECTROCARDIOGRAM [ECG] [EKG] 05/06/2017 KENYETTA BALDWIN DO Ot T40.2X5A ADVERSE EFFECT OF [...] Ot Z98.890 OTHER SPECIFIED POSTPROCEDURAL STATES 05/20/2017 KRANTHI PANDYAINE E PRICE ECONOMIST Ot J43.8 OTHER EMPHYSEMA 05/20/2017 KRANTHI PANDYAINE E PRICE ECONOMIST Ot R09.02 HYPOXEMIA 05/22/2017 KRANTHI PANDYAINE E PRICE ECONOMIST Ot G47.33 OBSTRUCTIVE SLEEP APNEA (ADULT) (PEDIATR 05/23/2017 KRANTHI PANDYAINE E PRICE ECONOMIST Ot G47.33 OBSTRUCTIVE SLEEP APNEA (ADULT) (PEDIATR 05/24/2017 KRANTHI PANDYAINE E PRICE ECONOMIST Ot G47.33 OBSTRUCTIVE SLEEP APNEA (ADULT) (PEDIATR 05/24/2017 MUMTAZ MYRNA E PRICE ECONOMIST Ot G47.50 PARASOMNIA, UNSPECIFIED 05/24/2017 MUMTAZ MYRNA E PRICE ECONOMIST Ot R09.02 HYPOXEMIA 05/25/2017 KRANTHI PANDYAINE E PRICE ECONOMIST Ot G47.33 OBSTRUCTIVE SLEEP APNEA (ADULT) (PEDIATR 05/25/2017 KRANTHI PANDYAINE E PRICE ECONOMIST Ot G47.50 PARASOMNIA, UNSPECIFIED 05/25/2017 MYRNA PANDYA PRICE ECONOMIST Ot R09.02 HYPOXEMIA 05/27/2017 KYARA MAHAJAN FACC, JIM DENSONP CCDS Ot E78.4 OTHER HYPERLIPIDEMIA 05/27/2017 KYARA MAHAJAN FACC, ALI FACP CCDS Ot I10 ESSENTIAL (PRIMARY) HYPERTENSION 05/27/2017 KYARA MAHAJAN FACC, ALI FACP CCDS Ot I25.10 ATHSCL HEART DISEASE OF [place] CORONARY 05/27/2017 KYARA MAHAJAN FACC, ALI FACP [...] CCDS Ot I25.10 ATHSCL HEART DISEASE OF [place] CORONARY 05/27/2017 KYARA MAHAJAN FACC, ALI FACP CCDS Ot 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 05/27/2017 KYARA MAHAJAN FACC, ALI FACP CCDS Ot I95.2 HYPOTENSION DUE TO DRUGS 05/27/2017 KYARA DENSONC, ALI FACP CCDS Ot J43.8 OTHER EMPHYSEMA 06/16/2017 KYARA MAHAJAN FACC, ALI FACP CCDS Ot E78.4 OTHER HYPERLIPIDEMIA 06/16/2017 KYARA MAHAJAN FACC, ALI FACP CCDS Ot I10 ESSENTIAL (PRIMARY) HYPERTENSION 06/16/2017 KYARA MAHAJAN FACC, ALI FACP CCDS Ot I25.10 ATHSCL HEART DISEASE OF [place] CORONARY 06/16/2017 KYARA MAHAJAN FACC, ALI FACP [...] CCDS Ot I25.10 ATHSCL HEART DISEASE OF [place] CORONARY 06/29/2017 KYARA MAHAJAN FAC, ALI FACP CCDS Ot I65.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 AND [...] CCDS Ot I25.10 ATHSCL HEART DISEASE OF [place] CORONARY 06/29/2017 KYARA MAHAJAN FACC, ALI FACP CCDS Ot 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 06/29/2017 KYARA MAHAJAN FACC, ALI FACP CCDS Ot I95.2 HYPOTENSION DUE TO DRUGS 06/29/2017 KYARA MAHAJAN FAC, ALI FACP CCDS Ot J43.8 OTHER EMPHYSEMA 07/08/2017 MYRNA PANDYA PRICE ECONOMIST Ot J43.8 OTHER EMPHYSEMA 07/08/2017 MYRNA PANDYA PRICE ECONOMIST Ot R09.02 HYPOXEMIA 07/27/2017 MYRNA PANDYA PRICE ECONOMIST Ot J43.8 OTHER EMPHYSEMA 07/27/2017 MYRNA PANDYA PRICE ECONOMIST Ot R09.02 HYPOXEMIA 12/15/2017 Ot 241.0 NONTOX UNINODULAR GOITER 12/15/2017 Ot 719.45 JOINT PAIN-PELVIS 12/15/2017 JERONIMO PITTMAN MD Ot 241.0 NONTOX UNINODULAR GOITER 12/15/2017 JERONIMO PITTMAN MD Ot 241.0 NONTOX UNINODULAR GOITER 12/15/2017 JERONIMO PITTMAN MD Ot V72.63 PRE-PROCEDURAL LABORATORY EXAMINATION 12/15/2017 JERONIMO PITTMAN MD Ot V72.81 [id number] CARDIOVASCULAR 12/15/2017 JERONIMO PITTMAN MD Ot V74.8 SCREEN-BACTERIAL DIS NEC 12/15/2017 MERCEDES SMART MD Ot V72.84 EXAM PRE-OPERATIVE NOS 12/15/2017 MERCEDES SMART MD Ot 787.91 DIARRHEA 12/15/2017 MERCEDES SMART MD Ot 789.1 HEPATOMEGALY 12/15/2017 KIDO MD, TAKAAKI Ot 787.3 FLATUL/ERUCTAT/GAS PAIN 12/15/2017 MERCEDES SMART MD Ot 787.91 DIARRHEA 12/15/2017 MERCEDES SMART MD Ot 789.00 ABDOMINAL PAIN, UNSPECIFIED SITE 12/15/2017 KYARA MAHAJAN FAC, ALI FACP CCDS Ot 414.01 CORONARY ATHEROSCLEROSIS OF [place] CORON 12/15/2017 KYARA MAHAJAN FAC, ALI FACP CCDS Ot 786.50 CHEST PAIN NOS 12/15/2017 Ot 787.91 DIARRHEA 12/15/2017 CHENG FATIMA DO Ot 787.91 DIARRHEA 12/15/2017 Ot 787.91 DIARRHEA 12/15/2017 MERCEDES SMART MD Ot V72.84 EXAM PRE-OPERATIVE NOS 12/15/2017 ERICK NASH ACCOUNTS RECEIVABLE COLLECTOR Ot E78.5 HYPERLIPIDEMIA, UNSPECIFIED 12/15/2017 BAIERICK FORTUNE L ACCOUNTS RECEIVABLE COLLECTOR Ot I10 ESSENTIAL (PRIMARY) HYPERTENSION 12/15/2017 BAIERICK FORTUNE L ACCOUNTS RECEIVABLE COLLECTOR Ot I25.10 ATHSCL HEART DISEASE OF [place] CORONARY 12/15/2017 BAIMAERICK L ACCOUNTS RECEIVABLE COLLECTOR Ot I73.9 PERIPHERAL VASCULAR DISEASE, UNSPECIFIED 12/15/2017 BAIMAERICK L ACCOUNTS RECEIVABLE COLLECTOR Ot I77.9 DISORDER OF ARTERIES AND ARTERIOLES, UNS 12/15/2017 ERICK NASH ACCOUNTS RECEIVABLE COLLECTOR Ot R07.9 CHEST PAIN, UNSPECIFIED 12/15/2017 NICOLASA RESENDIZ KENYETTA S Ot E04.1 NONTOXIC SINGLE THYROID NODULE 12/15/2017 YAYA MAREI MD Ot M54.5 LOW BACK PAIN 12/15/2017 YAYA MARIE MD Ot M54.6 PAIN IN THORACIC SPINE 12/15/2017 YAYA MARIE MD Ot M47.816 SPONDYLOSIS W/O MYELOPATHY OR RADICULOPA 12/15/2017 YAYA MARIE MD Ot M51.16 INTERVERTEBRAL DISC DISORDERS W RADICULO 12/15/2017 YAYA MARIE MD Ot Z79.899 OTHER ASSET SPECIALIST (CURRENT) DRUG THERAPY 12/15/2017 LATRICIA ALVARES APRN Ot 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, OCCIPT- 12/15/2017 LATRICIA ALVARES APRN Ot R91.1 SOLITARY PULMONARY NODULE 12/15/2017 LATRICIA ALVARES PRICE ECONOMIST Ot R05 COUGH 12/15/2017 LATRICIA ALVARES PRICE ECONOMIST Ot R09.89 OTH SYMPTOMS AND SIGNS INVOLVING THE CIR 12/15/2017 KYARA MAHAJAN FACC, ALI FACP CCDS Ot E78.4 OTHER HYPERLIPIDEMIA 12/15/2017 KYARA DENSONC, ALI FACP CCDS Ot I10 ESSENTIAL (PRIMARY) HYPERTENSION 12/15/2017 KYARA MAHAJAN FACC, ALI FACP CCDS Ot I25.10 ATHSCL HEART DISEASE OF [place] CORONARY 12/15/2017 KYARA DENSONC, ALI FACP CCDS Ot 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 12/15/2017 KYARA MAHAJAN FACC, ALI FACP CCDS Ot I70.213 ATHSCL [place] ARTERIES OF EXTRM W INTRMT 12/15/2017 KYARA [...] CCDS Ot I25.10 ATHSCL HEART DISEASE OF [place] CORONARY 12/15/2017 KYARA MAHAJAN FACC, ALI FACP CCDS Ot 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 12/15/2017 KYARA MAHAJAN FACC, ALI FACP CCDS Ot I95.2 HYPOTENSION DUE TO DRUGS 12/15/2017 KYARA MAHAJAN FACC, ALI FACP CCDS Ot J43.8 OTHER EMPHYSEMA 05/15/2018 Ot 241.0 NONTOX UNINODULAR GOITER 05/15/2018 JERONIMO PITTMAN MD Ot 241.0 NONTOX UNINODULAR GOITER 05/15/2018 JERONIMO PITTMAN MD Ot 241.0 NONTOX UNINODULAR GOITER 05/15/2018 TOYA MAHAJAN, JERONIMO Ball Ot V72.63 PRE-PROCEDURAL LABORATORY EXAMINATION 05/15/2018 TOYA MAHAJAN, JERONIMO Ball Ot V72.81 [id number] CARDIOVASCULAR 05/15/2018 JERONIMO PITTMAN MD Ot V74.8 SCREEN-BACTERIAL DIS NEC 05/15/2018 MERCEDES SMART MD Ot V72.84 EXAM PRE-OPERATIVE NOS 05/15/2018 BING MAHAJAN, MERCEDES Ot 787.91 DIARRHEA 05/15/2018 MERCEDES SMART MD Ot 789.1 HEPATOMEGALY 05/15/2018 MERCEDES SMART MD Ot 787.3 FLATUL/ERUCTAT/GAS PAIN 05/15/2018 MERCEDES SMART MD Ot 787.91 DIARRHEA 05/15/2018 MERCEDES SMART MD Ot 789.00 ABDOMINAL PAIN, UNSPECIFIED SITE 05/15/2018 KYARA MAHAJAN FACC, ALI FACP CCDS Ot 414.01 CORONARY ATHEROSCLEROSIS OF [place] CORON 05/15/2018 KYARA MAHAJAN FACC, ALI FACP CCDS Ot 786.50 CHEST PAIN NOS 05/15/2018 Ot 787.91 DIARRHEA 05/15/2018 GELARCENIO RESENDIZ CHENG Willian Ot 787.91 DIARRHEA 05/15/2018 Ot 787.91 DIARRHEA 05/15/2018 MERCEDES SMART MD Ot V72.84 EXAM PRE-OPERATIVE NOS 05/15/2018 ERICK NASH ACCOUNTS RECEIVABLE COLLECTOR Ot E78.5 HYPERLIPIDEMIA, UNSPECIFIED 05/15/2018 ERICK NASH ACCOUNTS RECEIVABLE COLLECTOR Ot I10 ESSENTIAL (PRIMARY) HYPERTENSION 05/15/2018 ERICK NASH ACCOUNTS RECEIVABLE COLLECTOR Ot I25.10 ATHSCL HEART DISEASE OF [place] CORONARY 05/15/2018 ERICK NSAH ACCOUNTS RECEIVABLE COLLECTOR Ot I73.9 PERIPHERAL VASCULAR DISEASE, UNSPECIFIED 05/15/2018 ERICK NASH ACCOUNTS RECEIVABLE COLLECTOR Ot I77.9 DISORDER OF ARTERIES AND ARTERIOLES, UNS 05/15/2018 ERICK NASH ACCOUNTS RECEIVABLE COLLECTOR Ot R07.9 CHEST PAIN, UNSPECIFIED 05/15/2018 KENYETTA BALDWIN DO Ot E04.1 NONTOXIC SINGLE THYROID NODULE 05/15/2018 FRANK MAAHJAN, YAYA Moreno Ot M54.5 LOW BACK PAIN 05/15/2018 YAYA MARIE MD Ot M54.6 PAIN IN THORACIC SPINE 05/15/2018 YAYA MARIE MD Ot M47.816 SPONDYLOSIS W/O MYELOPATHY OR RADICULOPA 05/15/2018 YAYA MARIE MD Ot M51.16 INTERVERTEBRAL DISC DISORDERS W RADICULO 05/15/2018 YAYA MARIE MD Ot Z79.899 OTHER FPC (CURRENT) DRUG THERAPY 05/15/2018 LATRICIA ALVARES PRICE ECONOMIST Ot 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, OCCIPT- 05/15/2018 LATRICIA ALVARES PRICE ECONOMIST Ot R91.1 SOLITARY PULMONARY NODULE 05/15/2018 LATRICIA ALVARES PRICE ECONOMIST Ot R05 COUGH 05/15/2018 LATRICIA ALVARES PRICE ECONOMIST Ot R09.89 OTH SYMPTOMS AND SIGNS INVOLVING THE CIR 05/15/2018 KYARA MAHAJAN FACC, ALI FACP CCDS Ot E78.4 OTHER HYPERLIPIDEMIA 05/15/2018 KYARA MAHAJAN FACC, ALI FACP CCDS Ot I10 ESSENTIAL (PRIMARY) HYPERTENSION 05/15/2018 KYARA MAHAJAN FACC, ALI FACP CCDS Ot I25.10 ATHSCL HEART DISEASE OF [place] CORONARY 05/15/2018 KYARA MAHAJAN FACC, ALI FACP CCDS Ot 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 05/15/2018 KYARA MAHAJAN FACC, ALI FACP CCDS Ot I70.213 ATHSCL [place] ARTERIES OF EXTRM W INTRMT 05/15/2018 KYARA MAHAJAN FACC, ALI FACP CCDS Ot J43.8 OTHER EMPHYSEMA 05/15/2018 KYARA MAHAJAN FACC, ALI FACP CCDS Ot R06.02 SHORTNESS OF BREATH 05/15/2018 KYARA MAHAJAN FACC, ALI FACP CCDS Ot Z87.891 PERSONAL HISTORY OF NICOTINE DEPENDENCE 05/15/2018 MYRNA PANDYA APRN Ot J43.8 OTHER EMPHYSEMA 05/15/2018 MYRNA PANDYA APRN Ot R09.02 HYPOXEMIA 05/15/2018 KYARA MAHAJAN FACC, ALI FACP CCDS Ot E78.4 OTHER HYPERLIPIDEMIA 05/15/2018 KYARA MAHAJAN FACC, ALI FACP CCDS Ot I10 ESSENTIAL (PRIMARY) HYPERTENSION 05/15/2018 KYARA MAHAJAN FACC, ALI FACP CCDS Ot I25.10 ATHSCL HEART DISEASE OF [place] CORONARY 05/15/2018 KYARA MAHAJAN FAC, ALI FACP CCDS Ot 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 05/15/2018 KYARA MAHAJAN FAC, ALI FACP CCDS Ot I95.2 HYPOTENSION DUE TO DRUGS 05/15/2018 KYARA MAHAJAN FAC, ALI FACP CCDS Ot J43.8 OTHER EMPHYSEMA 05/15/2018 VANDANA MARCUM MD Ot D72.829 ELEVATED WHITE BLOOD CELL COUNT, UNSPECI 05/15/2018 VANDANA MARCUM MD Ot E78.00 PURE HYPERCHOLESTEROLEMIA, UNSPECIFIED 05/15/2018 VANDANA MARCUM MD Ot F32.9 MAJOR DEPRESSIVE DISORDER, SINGLE EPISOD 05/15/2018 VANDANA MARCUM MD Ot I10 ESSENTIAL (PRIMARY) HYPERTENSION 05/15/2018 VANDANA MARCUM MD Ot I25.10 ATHSCL HEART DISEASE OF [place] CORONARY 05/15/2018 VANDANA MARCUM MD Ot I73.9 PERIPHERAL VASCULAR DISEASE, UNSPECIFIED 05/15/2018 VANDANA MARCUM MD Ot J44.9 CHRONIC OBSTRUCTIVE PULMONARY DISEASE, U 05/15/2018 VANDANA MARCUM MD Ot K21.9 GASTRO-ESOPHAGEAL REFLUX DISEASE WITHOUT 05/15/2018 VANDANA MARCUM MD Ot M79.1 MYALGIA 05/15/2018 VANDANA MARCUM MD Ot R05 COUGH 05/15/2018 VANDANA MARCUM MD, Ot R42 DIZZINESS AND GIDDINESS 05/15/2018 VANDANA MARCUM MD Ot Z79.51 ASSET SPECIALIST (CURRENT) USE OF INHALED STERO 05/15/2018 VANDANA MARCUM MD Ot Z79.82 ASSET SPECIALIST (CURRENT) USE OF ASPIRIN 05/15/2018 VANDANA MARCUM MD, Ot Z87.01 PERSONAL HISTORY OF PNEUMONIA (RECURRENT 05/15/2018 VANDANA MARCUM MD, Ot Z87.19 PERSONAL HISTORY OF OTHER DISEASES OF TH 05/15/2018 VANDANA MARCUM MD, Ot Z87.891 PERSONAL HISTORY OF NICOTINE DEPENDENCE 05/15/2018 VANDANA MARCUM MD, Ot Z88.2 ALLERGY STATUS TO SULFONAMIDES STATUS 05/15/2018 VANDANA MARCUM MD Ot Z95.5 PRESENCE OF CORONARY ANGIOPLASTY IMPLANT 05/15/2018 VANDANA MARCUM MD, Ot Z99.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 ON SUPPLEMENTAL OXYGEN 05/18/2018 VANDANA MARCUM MD, Ot D72.829 ELEVATED WHITE BLOOD CELL COUNT, UNSPECI 05/18/2018 VANDANA MARCUM MD Ot E78.00 PURE HYPERCHOLESTEROLEMIA, UNSPECIFIED 05/18/2018 VANDANA MARCUM MD, Ot F32.9 MAJOR DEPRESSIVE DISORDER, SINGLE EPISOD 05/18/2018 VANDANA MARCUM MD, Ot I10 ESSENTIAL (PRIMARY) HYPERTENSION 05/18/2018 VANDANA MARCUM MD, Ot I25.10 ATHSCL HEART DISEASE OF [place] CORONARY 05/18/2018 VANDANA MARCUM MD, Ot I73.9 PERIPHERAL VASCULAR DISEASE, UNSPECIFIED 05/18/2018 VANDANA MARCUM MD, Ot J44.9 CHRONIC OBSTRUCTIVE PULMONARY DISEASE, U 05/18/2018 VANDANA MARCUM MD, Ot K21.9 GASTRO-ESOPHAGEAL REFLUX DISEASE WITHOUT 05/18/2018 VANDANA MARCUM MD Ot M79.1 MYALGIA 05/18/2018 VANDANA MARCUM MD, Ot R05 COUGH 05/18/2018 VANDANA MARCUM MD, Ot R42 DIZZINESS AND GIDDINESS 05/18/2018 VANDANA MARCUM MD Ot Z79.51 FPC (CURRENT) USE OF INHALED STERO 05/18/2018 VANDANA MARCUM MD, Ot Z79.82 ASSET SPECIALIST (CURRENT) USE OF ASPIRIN 05/18/2018 VANDANA MARCUM MD, Ot Z87.01 PERSONAL HISTORY OF PNEUMONIA (RECURRENT 05/18/2018 VANDANA MARCUM MD, Ot Z87.19 PERSONAL HISTORY OF OTHER DISEASES OF TH 05/18/2018 VANDANA MARCUM MD, Ot Z87.891 PERSONAL HISTORY OF NICOTINE DEPENDENCE 05/18/2018 VANDANA MARCUM MD, Ot Z88.2 ALLERGY STATUS TO SULFONAMIDES STATUS 05/18/2018 TRIXIE MAHAJAN, VANDANA Diaz Ot Z95.5 PRESENCE OF CORONARY ANGIOPLASTY IMPLANT 05/18/2018 TRIXIE MAHAJAN, VANDANA Diaz Ot Z99.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 ON SUPPLEMENTAL OXYGEN 03/16/2019 Ot 787.91 DIARRHEA 03/16/2019 Ot 787.91 DIARRHEA 03/17/2019 YOANNA MAHAJAN, LULU Lee Ot Z01.818 ENCOUNTER FOR OTHER PREPROCEDURAL EXAMIN Procedures Code Description Performed By Performed On [...] Automated erythrocyte mean corpuscular hemoglobin concentration measurement (mass/volume) 33 g/dL 32-36 Automated erythrocyte distribution width ratio 15.0 % 10.0- 14.5 Automated blood platelet count (count/volume) 189 10*3/uL [...] Automated erythrocyte mean corpuscular hemoglobin concentration measurement (mass/volume) 33 g/dL 32-36 Automated erythrocyte distribution width ratio 14.9 % 10.0- 14.5 Automated blood platelet count (count/volume) 212 10*3/uL [...] Blood monocytes automated count (number/volume) 1.4 10*3 0.0- 1.0 Automated eosinophil count 0.1 10*3/uL 0.0-0.3 Automated [...] Blood lactic acid measurement (moles/volume) 1.12 mmol/L 0.50- 2.00 Comprehensive metabolic panel - 12/25/16 10:46 Serum [...] Serum or plasma aspartate aminotransferase measurement (enzymatic activity/volume) 22 U/L 5-34 Serum or plasma alanine aminotransferase measurement (enzymatic activity/volume) 44 U/L 0-55 Serum or plasma protein measurement (mass/volume) 6.0 g/dL 6.4-8.2 Serum or plasma albumin measurement (mass/volume) 3.3 g/dL 3.2-4.5 Serum or plasma troponin i.cardiac measurement (mass/volume) - 12/25/16 10:46 Serum or plasma troponin i.cardiac measurement (mass/volume) < ng/mL <0.30 Bacterial blood culture - 12/25/16 10:46 Bacterial blood culture NG NRG Bacterial blood culture - 12/25/16 10:58 Bacterial blood culture NG NRG Complete urinalysis with reflex to culture - 12/25/16 11:23 Urine color determination YELLOW NRG Urine clarity determination CLEAR NRG Urine pH measurement by test strip 6 5-9 Specific gravity of urine by test strip 1.015 1.016-1.022 Urine protein assay by test strip, semi-quantitative [...] sediment leukocyte count by microscopy (number/high power field) NONE NRG Bacteria detection in urine sediment [...] Automated erythrocyte mean corpuscular hemoglobin concentration measurement (mass/volume) 33 g/dL 32-36 Automated erythrocyte distribution width ratio 15.1 % 10.0- 14.5 Automated blood platelet count (count/volume) 170 10*3/uL [...] Blood monocytes automated count (number/volume) 1.2 10*3 0.0- 1.0 Automated eosinophil count 0.1 10*3/uL 0.0-0.3 Automated [...] Serum or plasma aspartate aminotransferase measurement (enzymatic activity/volume) 19 U/L 5-34 Serum or plasma alanine aminotransferase measurement (enzymatic activity/volume) 35 U/L 0-55 Serum or plasma protein [...] Automated erythrocyte mean corpuscular hemoglobin concentration measurement (mass/volume) 33 g/dL 32-36 Automated erythrocyte distribution width ratio 12.5 % 10.0- 14.5 Automated blood platelet count (count/volume) 220 10*3/uL [...] Blood monocytes automated count (number/volume) 1.0 10*3 0.0- 1.0 Automated eosinophil count 0.2 10*3/uL 0.0-0.3 Automated [...] Serum or plasma aspartate aminotransferase measurement (enzymatic activity/volume) 21 U/L 5-34 Serum or plasma alanine aminotransferase measurement (enzymatic activity/volume) 17 U/L 0-55 Serum or plasma protein [...] or plasma troponin i.cardiac measurement (mass/volume) < ng/mL <0.30 Serum or plasma thyrotropin measurement by detection limit <=0.05 miu/l (units/volume) - 04/29/17 20:00 Serum or plasma thyrotropin measurement by detection limit <=0.05 miu/l (units/volume) 4.78 u[iU]/mL 0.35-4.94 Serum or plasma cortisol measurement (mass/volume) - 04/29/17 20:00 Cortisol PM 7.3 % 3.0-16.0 Bacterial blood culture - 04/29/17 20:10 Bacterial blood culture NG NRG Blood lactic acid measurement (moles/volume) - 04/29/17 20:30 Blood lactic acid measurement (moles/volume) 1.38 mmol/L 0.50- 2.00 Bacterial blood culture - 04/29/17 20:30 Bacterial blood culture NG NRG Serum or plasma troponin i.cardiac measurement (mass/volume) - 04/29/17 22:40 Serum or plasma troponin i.cardiac measurement (mass/volume) < ng/mL <0.30 Methicillin resistant Staphylococcus aureus (MRSA) screening culture - 08/30/17 23:05 Methicillin resistant Staphylococcus aureus (MRSA) screening [...] Automated erythrocyte mean corpuscular hemoglobin concentration measurement (mass/volume) 33 g/dL 32-36 Automated erythrocyte distribution width ratio 12.1 % 10.0- 14.5 Automated blood platelet count (count/volume) 212 10*3/uL [...] Blood monocytes automated count (number/volume) 2.2 10*3 0.0- 1.0 Automated eosinophil count 0.1 10*3/uL 0.0-0.3 Automated [...] Serum or plasma aspartate aminotransferase measurement (enzymatic activity/volume) 17 U/L 5-34 Serum or plasma alanine aminotransferase measurement (enzymatic activity/volume) 15 U/L 0-55 Serum or plasma protein [...] or plasma troponin i.cardiac measurement (mass/volume) < ng/mL <0.30 Myoglobin, serum - 04/30/17 04:35 Myoglobin, [...] gravity of urine by test strip 1.015 1.016-1.022 Urine protein assay by test strip, semi-quantitative [...] sediment leukocyte count by microscopy (number/high power field) NONE NRG Bacteria detection in urine sediment [...] blood base excess by calculation -5.3 mmol/L -2.5-2.5 Arterial blood oxygen saturation measurement 98 % 94-100 * Inhaled oxygen flow rate 2L NRG Arterial blood pH measurement with patient temperature correction 7.24 7.37-7.43 Arterial blood carbon dioxide, total measurement (moles/volume) 22.5 mmol/L 21.0-31.0 Body site RT RAD NRG Assessment of wrist artery patency prior to arterial puncture YES-POS NRG Setting of ventilation mode NO NRG [...] Automated erythrocyte mean corpuscular hemoglobin concentration measurement (mass/volume) 32 g/dL 32-36 Automated erythrocyte distribution width ratio 12.4 % 10.0- 14.5 Automated blood platelet count (count/volume) 155 10*3/uL [...] Blood monocytes automated count (number/volume) 0.8 10*3 0.0- 1.0 Automated eosinophil count 0.0 10*3/uL 0.0-0.3 Automated [...] Automated erythrocyte mean corpuscular hemoglobin concentration measurement (mass/volume) 33 g/dL 32-36 Automated erythrocyte distribution width ratio 12.9 % 10.0- 14.5 Automated blood platelet count (count/volume) 179 10*3/uL [...] Blood monocytes automated count (number/volume) 2.0 10*3 0.0- 1.0 Automated eosinophil count 0.0 10*3/uL 0.0-0.3 Automated [...] or plasma troponin i.cardiac measurement (mass/volume) < ng/mL <0.30 Serum or plasma lithium measurement (moles/volume) - 05/02/17 05:50 BNP level 582.9 pg/mL <100.0 Arterial blood gas measurement - 05/02/17 10:10 Blood pCO2 29 mm[Hg] 35-45 Blood pO2 90 mm[Hg] 79-93 Arterial blood bicarbonate measurement (moles/volume) 18 mmol/L 23-27 Arterial blood base excess by calculation -5.4 mmol/L -2.5-2.5 Arterial blood oxygen saturation measurement 98 % 94-100 * Inhaled oxygen flow rate 2 NRG Arterial blood pH measurement with patient temperature correction 7.42 7.37-7.43 Arterial blood carbon dioxide, total measurement (moles/volume) 19.2 mmol/L 21.0-31.0 Body site RT RADIAL NRG Assessment of wrist artery patency prior to arterial puncture YES-POS NRG Setting of ventilation mode NO NRG [...] Automated erythrocyte mean corpuscular hemoglobin concentration measurement (mass/volume) 33 g/dL 32-36 Automated erythrocyte distribution width ratio 12.7 % 10.0- 14.5 Automated blood platelet count (count/volume) 155 10*3/uL [...] Blood monocytes automated count (number/volume) 1.4 10*3 0.0- 1.0 Automated eosinophil count 0.1 10*3/uL 0.0-0.3 Automated [...] Serum or plasma aspartate aminotransferase measurement (enzymatic activity/volume) 46 U/L 5-34 Serum or plasma alanine aminotransferase measurement (enzymatic activity/volume) 19 U/L 0-55 Serum or plasma protein [...] gravity of urine by test strip 1.020 1.016-1.022 Urine protein assay by test strip, semi-quantitative [...] sediment leukocyte count by microscopy (number/high power field) [HPF] NRG Bacteria detection in urine sediment [...] Automated erythrocyte mean corpuscular hemoglobin concentration measurement (mass/volume) 33 g/dL 32-36 Automated erythrocyte distribution width ratio 12.8 % 10.0- 14.5 Automated blood platelet count (count/volume) 192 10*3/uL [...] Blood monocytes automated count (number/volume) 1.0 10*3 0.0- 1.0 Automated eosinophil count 0.2 10*3/uL 0.0-0.3 Automated [...] plasma calcium measurement (mass/volume) 8.2 mg/dL 8.5-10.1 Complete blood count (CBC) with automated white blood cell (WBC) differential - 05/15/18 11:40 Blood leukocytes automated count (number/volume) 12.8 10*3/uL 4.3-11.0 Blood erythrocytes automated count (number/volume) 3.86 10*6/uL 4.35-5.85 Venous blood hemoglobin measurement (mass/volume) 13.0 g/dL 13.3-17.7 Blood hematocrit (volume fraction) 39 % 40-54 Automated erythrocyte mean corpuscular volume 101 [foz_us] 80-99 Automated erythrocyte mean corpuscular hemoglobin (mass per erythrocyte) 34 pg 25-34 Automated erythrocyte mean corpuscular hemoglobin concentration measurement (mass/volume) 33 g/dL 32-36 Automated erythrocyte distribution width ratio 13.6 % 10.0- 14.5 Automated blood platelet count (count/volume) 187 10*3/uL 130-400 Automated blood platelet mean volume measurement 10.0 [foz_us] 7.4-10.4 Automated blood neutrophils/100 leukocytes 73 % 42-75 Automated blood lymphocytes/100 leukocytes 9 % 12-44 Blood monocytes/100 leukocytes 17 % 0-12 Automated blood eosinophils/100 leukocytes 1 % 0-10 Automated blood basophils/100 leukocytes 0 % 0-10 Blood neutrophils automated count (number/volume) 9.3 10*3 1.8-7.8 Blood lymphocytes automated count (number/volume) 1.2 10*3 1.0-4.0 Blood monocytes automated count (number/volume) 2.1 10*3 0.0- 1.0 Automated eosinophil count 0.1 10*3/uL 0.0-0.3 Automated blood basophil count (count/volume) 0.0 10*3/uL 0.0-0.1 Comprehensive metabolic panel - 05/15/18 11:40 Serum or plasma sodium measurement (moles/volume) 134 mmol/L 135-145 Serum or plasma potassium measurement (moles/volume) 4.4 mmol/L 3.6-5.0 Serum or plasma chloride measurement (moles/volume) 97 mmol/L 98-107 Carbon dioxide 26 mmol/L 21-32 Serum or plasma anion gap determination (moles/volume) 11 mmol/L 5-14 Serum or plasma urea nitrogen measurement (mass/volume) 11 mg/dL 7-18 Serum or plasma creatinine measurement (mass/volume) 0.88 mg/dL 0.60-1.30 Serum or plasma urea nitrogen/creatinine mass ratio 13 NRG Serum or plasma creatinine measurement with calculation of estimated glomerular filtration rate > NRG Serum or plasma glucose measurement (mass/volume) 119 mg/dL 70-105 Serum or plasma calcium measurement (mass/volume) 8.9 mg/dL 8.5-10.1 Serum or plasma total bilirubin measurement (mass/volume) 1.1 mg/dL 0.1-1.0 Serum or plasma alkaline phosphatase measurement (enzymatic activity/volume) 71 U/L 40-136 Serum or plasma aspartate aminotransferase measurement (enzymatic activity/volume) 14 U/L 5-34 Serum or plasma alanine aminotransferase measurement (enzymatic activity/volume) 17 U/L 0-55 Serum or plasma protein measurement (mass/volume) 7.2 g/dL 6.4-8.2 Serum or plasma albumin measurement (mass/volume) 3.8 g/dL 3.2-4.5 CALCIUM CORRECTED 9.1 mg/dL 8.5-10.1 Magnesium - 05/15/18 11:40 Magnesium 1.9 mg/dL 1.8-2.4 Serum or plasma creatine kinase measurement (enzymatic activity/volume) - 05/15/18 11:40 Serum or plasma creatine kinase measurement (enzymatic activity/volume) 75 U/L 30-200 Serum or plasma troponin i.cardiac measurement (mass/volume) - 05/15/18 11:40 Serum or plasma troponin i.cardiac measurement (mass/volume) < ng/mL <0.30 Serum or plasma lithium measurement (moles/volume) - 05/15/18 11:40 BNP level 138.1 pg/mL <100.0 Serum or plasma thyrotropin measurement by detection limit <=0.05 miu/l (units/volume) - 05/15/18 11:40 Serum or plasma thyrotropin measurement by detection limit <=0.05 miu/l (units/volume) 2.07 u[iU]/mL 0.35-4.94 Serum or plasma C reactive protein measurement (mass/volume) - 05/15/18 11:40 Serum or plasma C reactive protein measurement (mass/volume) 19.46 mg/dL 0.00-0.50 Complete urinalysis with reflex to culture - 05/15/18 12:30 Urine color determination MAGDA NRG Urine clarity determination SLIGHTLY CLOUDY NRG Urine pH measurement by test strip 6 5-9 Specific gravity of urine by test strip 1.010 1.016-1.022 Urine protein assay by test strip, semi-quantitative 1+ NEGATIVE Urine glucose detection by automated test strip NEGATIVE NEGATIVE Erythrocytes detection in urine sediment by light microscopy NEGATIVE NEGATIVE Urine ketones detection by automated test strip NEGATIVE NEGATIVE Urine nitrite detection by test strip NEGATIVE NEGATIVE Urine total bilirubin detection by test strip NEGATIVE NEGATIVE Urine urobilinogen measurement by automated test strip (mass/volume) 1 mg/dL NORMAL Urine leukocyte esterase detection by dipstick 1+ NEGATIVE Automated urine sediment erythrocyte count by microscopy (number/high power field) NONE NRG Automated urine sediment leukocyte count by microscopy (number/high power field) [HPF] NRG Bacteria detection in urine sediment by light microscopy NEGATIVE NRG Squamous epithelial cells detection in urine sediment by light microscopy 0-2 NRG Crystals detection in urine sediment by light microscopy NONE NRG Casts detection in urine sediment by light microscopy NONE NRG Mucus detection in urine sediment by light microscopy NEGATIVE NRG Complete urinalysis with reflex to culture NO NRG Encounters ACCT No. Visit Date/Time Discharge Status Pt. Type Provider Facility Loc./Unit Complaint [id number] 03/18/2019 09:27:00 03/18/2019 11:02:00 DIS Outpatient LULU LENZ MD [facility] SDC RIGHT EYE [id number] 03/16/2019 05:38:00 03/17/2019 08:54:00 DIS Outpatient LULU LENZ MD [facility] PREOP RIGHT CATARACT [id number] 05/15/2018 11:09:00 05/15/2018 14:01:00 DIS Emergency VANDANA MARCUM MD [facility] ER WHEEZING,COUGH,HEADACHE [id number] 05/26/2017 07:35:00 05/26/2017 23:59:59 CLS Outpatient KYARA MAHAJAN FACC, JIM FLORES CCDS [facility] CARD CAD I25.10 [id number] 05/23/2017 19:54:00 05/24/2017 06:30:00 DIS Outpatient MYRNA PANDYA APRN [facility] SLEEP ACE G47.33 [id number] 05/18/2017 14:17:00 05/18/2017 23:59:59 CLS Outpatient MYRNA PANDYA APRN [facility] RT COPD J43.8 [id number] 04/29/2017 22:07:00 05/06/2017 15:23:00 DIS Inpatient GILKENYETTA SINGH DO [facility] 4TH CHEST PAIN WITH ACUTE ISCHEMIC EKG CHANGES [id number] 01/16/2017 11:01:00 01/16/2017 12:02:00 DIS Outpatient YAYA MARIE MD [facility] CARD DISC DISORDER [id number] 12/30/2016 10:38:00 12/30/2016 23:59:59 CLS Outpatient KYARA MAHAJAN FACC, JIM FLORES CCDS [facility] CARD R06.02 I25.10 I65.23 [id number] 12/25/2016 13:08:00 12/26/2016 11:18:00 DIS Inpatient KENYETTA BALDWIN DO [facility] 4TH ORTHOSTATIC HTN [id number] 12/11/2016 14:19:00 12/11/2016 23:59:59 CLS Outpatient LATRICIA ALVARES APRN [facility] RAD COUGH,CHEST CONGESTION [id number] 12/17/2015 12:28:00 12/17/2015 13:26:00 DIS Outpatient YAYA MARIE MD [facility] CARD DISC DISORDER W/RADICULOPATHY [id number] 11/19/2015 10:13:00 11/19/2015 23:59:59 CLS Outpatient LATRICIA ALVARES PRICE ECONOMIST [facility] RAD FOLLOW UP FOR LUNG NODULE [id number] 10/19/2015 18:11:00 10/19/2015 20:07:00 DIS Emergency SYED MELISSA RESENDIZ [facility] ER PULSE;BP [id number] 10/05/2015 07:23:00 10/05/2015 08:12:00 DIS Outpatient YAYA MARIE MD [facility] CARD DISC DISORDER [id number] 08/21/2015 08:27:00 08/23/2015 13:24:00 DIS Inpatient CHENG FATIMA DO [facility] 4TH LLL PNEUMONIA LEUKOCYTOSIS [id number] 08/13/2015 13:07:00 08/13/2015 23:59:59 CLS Outpatient YAYA MARIE MD [facility] CARD DISC DISORDER W/ RADICULOPATHY LUMBAR [id number] 07/04/2015 08:51:00 07/04/2015 23:59:59 CLS Outpatient YAYA MARIE MD [facility] RAD LOW BACK PAIN [id number] 06/28/2015 07:01:00 06/28/2015 23:59:59 CLS Outpatient ERICK NASH [facility] CARD CAD,CP [id number] 06/27/2015 08:19:00 06/27/2015 23:59:59 CLS Outpatient KENYETTA BALDWIN DO [facility] RAD THYROID NODULE [id number] 12/06/2014 09:10:00 12/06/2014 12:49:00 DIS Out[facility]; BLOOD IN STOOLS [id number] 12/05/2014 05:44:00 12/05/2014 23:59:59 CLS Outpatient MERCEDES SMART MD [facility] PREOP HISTORY OF POLYPS; BLOOD IN STOOLS [id number] 10/25/2013 11:42:00 01/23/2014 00:01:00 DIS Outpatient MAGDA DOMINIQUE MD [facility] LAB DIARRHEA [id number] 11/15/2013 13:00:00 11/15/2013 23:59:59 CLS Outpatient CHENG FATIMA DO [facility] LAB DIARRHEA [id number] 08/11/2013 12:00:00 11/05/2013 00:01:00 DIS Outpatient VANDANA MARCUM MD [facility] LAB CHRONIC DIARRHEA [id number] 08/05/2013 10:55:00 08/05/2013 14:55:00 DIS Emergency VANDANA MARCUM MD [facility] ER DIARRHEA/VOMITING [id number] 06/20/2013 10:31:00 06/20/2013 23:59:59 CLS Outpatient KYARA MAHAJAN FACC, ALI FACP CCDS [facility] RAD CP,CAD,HTN,HLP [id number] 04/28/2013 09:29:00 04/28/2013 23:59:59 CLS Outpatient MERCEDES SMART MD [facility] RAD ABD PAIN,BLOATING,DIARRHEA [id number] 04/27/2013 08:35:00 04/27/2013 13:00:00 DIS Outpatient MERCEDES SMART MD [facility] SDC ABDOMINAL PAIN [id number] 04/22/2013 07:38:00 04/22/2013 23:59:59 CLS Outpatient MERCEDES SMART MD [facility] RAD DIARRHEA [id number] 04/20/2013 07:15:00 04/20/2013 23:59:59 CLS Outpatient MERCEDES SMART MD [facility] PREOP ABDOMINAL PAIN [id number] 01/28/2013 06:51:00 01/29/2013 08:00:00 DIS Outpatient JERONIMO PITTMAN MD [facility] SDC RIGHT THYROID NODULE [id number] 01/25/2013 14:31:00 01/25/2013 23:59:59 CLS Outpatient JERONIMO PITTMAN MD [facility] PREOP RIGHT THYROID NODULE [id number] 12/23/2012 10:27:00 12/23/2012 23:59:59 CLS Outpatient JERONIMO PITTMAN MD [facility] RAD THYROID NODULE [id number] 12/08/2014 09:56:00 Document Registration [id number] 12/08/2014 09:56:00 Document Registration [id number] 12/08/2014 09:56:00 Document Registration [id number] 12/08/2014 09:56:00 Document Registration [id number] 12/08/2014 09:56:00 Document Registration [id number] 12/08/2014 09:56:00 Document Registration [id number] 12/08/2014 09:56:00 Document Registration [id number] 10/27/2014 20:51:00 Document Registration [id number] 01/24/2014 00:00:00 Document Registration [id number] 11/06/2013 00:00:00 Document Registration [id number] 11/25/2012 09:48:00 Document Registration [id number] 09/09/2012 07:57:00 Document Registration [id number] 05/19/2012 12:16:00 Document Registration [id number] 02/06/2012 08:09:00 Document Registration [id number] 02/05/2012 08:37:00 Document Registration [id number] 01/08/2012 07:20:00 Document Registration [id number] 12/29/2011 13:23:00 Document Registration [id number] 12/24/2011 16:05:00 Document Registration [id number] 06/17/2011 05:31:00 Document Registration [id number] 06/16/2011 09:40:00 Document Registration [id number] 06/05/2011 15:31:00 Document Registration [id number] 11/28/2010 09:37:00 Document Registration [id number] 04/02/2010 06:01:00 Document Registration [id number] 07/19/2009 13:39:00 Document Registration [id number] 07/02/2009 08:41:00 Document Registration
== END 2019-03-18 11:02 | disposition home or self-care (01) ==
LOC: SDC 09:27
PROVIDERS: ATTEND Specialist
DX: H25.11 Age-related nuclear cataract, right eye (principal); Z80.3 Family history of malignant neoplasm of breast; Z87.891 Personal history of nicotine dependence; I11.0 Hypertensive heart disease with heart failure; I50.9 Heart failure, unspecified; J45.909 Unspecified asthma, uncomplicated; I06.9 Rheumatic aortic valve disease, unspecified; F32.9 Major depressive disorder, single episode, unspecified; E78.00 Pure hypercholesterolemia, unspecified; E78.5 Hyperlipidemia, unspecified; Z79.82 Long term (current) use of aspirin; Z79.899 Other long term (current) drug therapy

== ENCOUNTER 2019-09-21 12:03 | Inpatient (IN) | payer MEDICARE, OTHER ==
[~2019-09-21] VITALS: Ht 177.8 cm; Wt 110.9 kg
[~2019-09-21 12:03] MED LIST changes: -DULO60CA58 PO; +DULO60CA59 PO; -TIZA4TAB3 PO; +TIZA4TAB4 PO
--- NOTE | 2019-09-21 12:20 | NUR ---
STEPHANY TIJERINA SR admitted to room 411-1, with an admitting diagnosis of COMMUNITY ACQUIRED PNEUMONIA AND COPD EXACERBATION, on 09/21/19 from DIRECT ADMIT via AMBULATORY, accompanied by . STEPHANY TIJERINA SR introduced to surroundings, call light, bed controls, phone, TV, temperature control, lights, meal times, smoking policy, visitor policy, side rail policy, bathrooms and showers. Patient Rights given to patient in the handbook. STEPHANY TIJERINA SR verbalizes understanding that [facility] is not responsible for the loss or damage to any personal effects or valuables that are kept in the patients possession during their hospitalization. The following Patient Care Plans were discussed with the PATIENT: Discharge Planning, PNEUMONIA, COPD and KNOWLEDGE DEFICIT. STEPHANY TIJERINA SR verbalizes understanding of Interdisciplinary Patient Education. Patient and/or family were informed about the Rapid Response Team and its purpose.
[2019-09-21 12:25] VITALS: BP 144/64
[2019-09-21] MEDS ORDERED: PATIENT MAY USE OWN MEDS, ALL PO SCH (12:30)
[2019-09-21] MEDS ORDERED: methylPREDNISolone 125 MG (Solu-MEDROL) VIAL IM NR (12:30)
[2019-09-21] MEDS ORDERED: HYDROcodone/APAP 10 MG/325 MG (LORTAB) TAB PO PRN (12:30)
[2019-09-21] MEDS ORDERED: ACETAMINOPHEN 325 MG TABLET PO PRN (12:30)
--- NOTE | 2019-09-21 12:39 | History & Physical ---
History of Present Illness History of Present Illness Reason for visit/HPI This is a 78 year old male with a known history of COPD who had been seen at my office the last 2 days for COPD exacerbation with a lower respiratory tract infection. He had been given rocephin IM and solumedrol IM in my office and was doing nebulizer treatments at home with duoneb. However, today he was worse with hypoxia in my office as well. It was decided to directly admit him for fur ther evaluation and treatment. Date of Admission Sep 21, 2019 at 12:14 Date Seen by a Provider: Sep 21, 2019 Time Seen by a Provider: 11:30 I consulted on this patient on 09/21/19 12:32 Attending Physician Haylee Piper DO Admitting Physician Haylee Piper DO Consult Allergies and Home Medications Allergies Coded Allergies: Sulfa (Sulfonamide Antibiotics) (Verified Allergy, Unknown, 03/16/19) Home Medications Albuterol Sulfate 18 Gm Hfa.aer.ad, 2 PUFF INH Q4H PRN for SHORTNESS OF BREATH, (Reported) Aspirin 81 Mg Tab.chew, 81 MG PO DAILY, (Reported) Atenolol 50 Mg Tablet, 50 MG PO BID Prescribed by: HAYLEE PIPER on 05/06/17 1306 Atorvastatin Calcium 40 Mg Tablet, 40 MG PO DAILY, (Reported) Budesonide/Formoterol Fumarate 10.2 Gm Hfa.aer.ad, 2 PUFF IH BID, (Reported) Dexlansoprazole 60 Mg Cap.bp, 60 MG PO DAILY, (Reported) Docusate Sodium 100 Mg Tablet, 100 MG PO DAILY, (Reported) Duloxetine HCl 60 Mg Capsule.dr, 60 MG PO DAILY, (Reported) Furosemide 40 Mg Tablet, 40 MG PO DAILY, (Reported) Hydrocodone Bit/Acetaminophen 1 Each Tablet, 0.5 EA PO Q4H PRN for PAIN-MODERATE Prescribed by: HAYLEE PIPER on 05/06/17 1306 Methocarbamol 750 Mg Tablet, 750 MG PO HS, (Reported) Montelukast Sodium 10 Mg Tablet, 10 MG PO DAILY, (Reported) Pregabalin 150 Mg Capsule, 150 MG PO BID, (Reported) Patient Home Medication List Home Medication List Reviewed: Yes Past Mssguzc-Eluafg-Nujppt Hx Past Med/Social Hx: Reviewed Nursing Past Med/Soc Hx Patient Social History Former Smoker, Quit: Aug 31, 2012 Type Used: Cigarettes Recent Foreign Travel: No Contact w/other who traveled: No Recent Hopitalizations: No Immunizations Up To Date Tetanus Booster (TDap): More than 5yrs Pediatric: No Date of Pneumonia Vaccine: May 31, 2014 Date of Influenza Vaccine: May 31, 2015 Seasonal Allergies Seasonal Allergies: Yes Past Medical History Surgeries: Cardiac, Coronary Stent, Eye Surgery, Orthopedic, Vascular Surgery Respiratory: COPD Currently Using CPAP: No Currently Using BIPAP: No Cardiac: Coronary Artery Disease, High Cholesterol, Hypertension, Peripheral Vascular Reproductive: No Sexually Transmitted Disease: No HIV/AIDS: No Genitourinary: Prostate Problems Gastrointestinal: Gastroesophageal Reflux, Diverticulosis, Hemorrhoids Musculoskeletal: Degenerate Disk Disease, Arthritis, Chronic Back Pain Loss of Vision: Denies Hearing Impairment: Denies Psychosocial: Depression History of Blood Disorders: No Adverse Reaction to Blood Humphreys: No Family History Patient reports no known family medical history. No Pertinent Family Hx Review of Systems Constitutional: diaphoresis, weakness EENTM: nose congestion Respiratory: cough, dyspnea on exertion, short of breath, wheezing Cardiovascular: No no symptoms reported, No see HPI, No chest pain, No edema, No Hx of Intervention, No palpitations, No syncope, No vascular heart diseas, No other Gastrointestinal: No RUQ, No LUQ, No RLQ, No LLQ, No no symptoms reported, No see HPI, No abdominal pain, No constipation, No diarrhea, No dysphagia, No hematemesis, No heartburn, No jaundice, No loss of appetite, No melena, No nausea, No vomiting, No other Genitourinary: No no symptoms reported, No see HPI, No decreased output, No discharge, No dysuria, No frequency, No hematuria, No hesitancy, No incontinence, No nocturia, No pain, No other Musculoskeletal: back pain (chronic), muscle weakness Skin: No no symptoms reported, No see HPI, No change in color, No change in hair/nails, No dryness, No hx of skin cancer, No lesions, No lumps, No pruritus, No rash, No other Psychiatric/Neurological: Pre-Existing Deficit, Weakness Physical Exam Vital Signs Capillary Refill : Height, Weight, BMI Height: 5'10.00" Weight: 245lbs. 3.0oz. 111.955418ro; 45.4 BMI Method:Stated General Appearance: Mild Distress HEENT: TMs Normal, Pharyngeal Erythema Neck: Supple Respiratory: Decreased Breath Sounds, Rhonci, Wheezing Cardiovascular: Regular Rate, Rhythm, Systolic Murmur, Gallop/S4 Gastrointestinal: Normal Bowel Sounds, Non Tender, Soft Rectal: Deferred Back: No CVA Tenderness Extremity: Non Tender, No Calf Tenderness, No Pedal Edema Neurologic/Psychiatric: Alert, Oriented x3, Motor Weakness (using cane) Skin: Warm/Dry, Ecchymosis (senile) Assessment/Plan Assessment and Plan 1. Acute Pneumonia--admit and check CXR, cover with rocephin and zithromax, check sputum culture 2. COPD with acute exacerbation--admit and start SVNs with duoneb as well as IV solumedrol 3. Hypoxia--start oxygen via NC at 2L 4. Hypertension--resume home atenolol 5. Chronic Back Pain with Lower Extremity Weakness--weakness worsening with current illness Admission Diagnosis Admission Status: Inpatient Order (span 2 midnights) Reason for Inpatient Admission: Will need IV antibiotics due to failed outpatient treatment as well as IV solumedrol then weaned from the solumedrol HAYLEE PIPER DO Sep 21, 2019 12:39
[2019-09-21] MEDS ORDERED: AZITHROMYCIN INJECTION 500 MG in NS (IVPB) 250 ML IV NR (12:45)
--- NOTE | 2019-09-21 12:58 | Diagnostic Imaging Report ---
INDICATION: Shortness of air. COMPARISON: 05/15/2018. FINDINGS: The lungs are clear. The heart size and vascularity are within normal limits. There is no effusion or pneumothorax. No failure pattern. Spinal stimulator paddles project in stable alignment. IMPRESSION: Stable chest. Dictated by: Dictated on workstation # [id number]
[2019-09-21 13:31] LABS: BASOPHILS % (AUTO) 1 % (0-10); EOSINOPHILS % (AUTO) 0 % (0-10); HEMATOCRIT 32 % (40-54); HEMOGLOBIN 10.6 G/DL (13.3-17.7); LYMPHOCYTES # (AUTO) 0.8 X 10^3 (1.0-4.0); LYMPHOCYTES % (AUTO) 20 % (12-44); MEAN CORPUSCULAR HEMOGLOBIN 36 PG (25-34); MEAN CORPUSCULAR HGB CONC 33 G/DL (32-36); MEAN CORPUSCULAR VOLUME 108 FL (80-99); MEAN PLATELET VOLUME 10.5 FL (7.4-10.4); MONOCYTES # (AUTO) 0.9 X 10^3 (0.0-1.0); MONOCYTES % (AUTO) 23 % (0-12); NEUTROPHILS # (AUTO) 2.2 X 10^3 (1.8-7.8); NEUTROPHILS % (AUTO) 57 % (42-75); RED CELL DISTRIBUTION WIDTH 14.6 % (10.0-14.5); WHITE BLOOD COUNT 3.9 10^3/uL (4.3-11.0)
[2019-09-21 13:32] LABS: PLATELET COUNT 82 10^3/uL (130-400)
[2019-09-21 13:51] VITALS: BP 144/64
[2019-09-21] MEDS ORDERED: RT-ALBUTEROL/IPRATROPIUM 3 ML (DUONEB) VIAL INH PRN (14:00)
[2019-09-21] MEDS: cefTRIAXone FOR IV USE 1,000 MG in WATER (STERILE) FOR INJECTION 10 ML IV SCH (14:01)
[2019-09-21] MEDS ORDERED: ENOXAPARIN 40 MG/0.4 ML (LOVENOX) SYR SC SCH (14:30)
[2019-09-21 14:50] LABS: BAND NEUTROPHILS 1 %; BASOPHILS % (MANUAL) 0 %; EOSINOPHILS % (MANUAL) 1 %; LYMPHOCYTES % (MANUAL) 26 %; MONOCYTES % (MANUAL) 20 %; NEUTROPHILS % (MANUAL) 51 %; REACTIVE LYMPHOCYTES 1 %
[2019-09-21 14:51] LABS: ANISOCYTOSIS SLIGHT
[2019-09-21] MEDS ORDERED: NFIPRATRNS NS (15:17)
[2019-09-21] MEDS ORDERED: BACL20TA PO (15:17)
[2019-09-21] MEDS ORDERED: ASPI-983 PO (15:17)
[2019-09-21] MEDS ORDERED: DOCU-143 PO (15:17)
[2019-09-21] MEDS ORDERED: KETO15CR2 TOP (15:17)
[2019-09-21] MEDS ORDERED: HYDR-3816 PO (15:17)
[2019-09-21] MEDS ORDERED: CHOL100048 PO (15:17)
[2019-09-21] MEDS ORDERED: KETO120S5 TOP (15:17)
[2019-09-21] MEDS ORDERED: MTP100TCR PO (15:17)
--- NOTE | 2019-09-21 15:22 | NUR ---
PATIENT HAD HIS BOTTLES WITH HIM WITH THE EXCEPTION OF SOME OF HIS PRN MEDS. I COMPARED THEM WITH THE EXT MED HX AND HE VERIFIED HOW HE TAKES THEM. HE STATES HE IS NO LONGER TAKING THE LYRICA, IT HAS BEEN DISCONTINUED. HE HAS AN ALBUTEROL INHALER ON HAND NEEDED, I DO NOT SEE IT ON THE EXT MED HX THEREFORE CAN NOT VERIFY THE LAST FILL DATE. HE TAKES THE FOLLOWING OTC: ASPIRIN 81MG DAILY VITAMIN D DAILY COLACE BID
[2019-09-21 16:09] VITALS: BP 189/79
[2019-09-21] MEDS: methylPREDNISolone 125 MG (Solu-MEDROL) VIAL IVP SCH ×2 (18:32→23:42)
[2019-09-21] MEDS: RT-ALBUTEROL/IPRATROPIUM 3 ML (DUONEB) VIAL INH SCH ×2 (18:52→22:47)
[2019-09-21] MEDS: ATENOLOL 50 MG (TENORMIN) TAB PO SCH (20:33)
[2019-09-21 20:35] VITALS: BP 159/67
[2019-09-21 23:55] VITALS: BP 149/97
[2019-09-22] MEDS: RT-ALBUTEROL/IPRATROPIUM 3 ML (DUONEB) VIAL INH SCH ×6 (02:10→22:27)
[2019-09-22 04:10] VITALS: BP 163/72
[2019-09-22] MEDS: methylPREDNISolone 125 MG (Solu-MEDROL) VIAL IVP SCH (06:32)
[2019-09-22] MEDS: PANTOPRAZOLE 40 MG (PROTONIX) TAB PO SCH (06:33)
[2019-09-22 06:39] LABS: BASOPHILS % (AUTO) 0 % (0-10); EOSINOPHILS % (AUTO) 0 % (0-10); HEMATOCRIT 30 % (40-54); LYMPHOCYTES # (AUTO) 0.5 X 10^3 (1.0-4.0); LYMPHOCYTES % (AUTO) 27 % (12-44); MEAN CORPUSCULAR HEMOGLOBIN 36 PG (25-34); MEAN CORPUSCULAR HGB CONC 34 G/DL (32-36); MEAN CORPUSCULAR VOLUME 108 FL (80-99); MEAN PLATELET VOLUME 9.8 FL (7.4-10.4); MONOCYTES # (AUTO) 0.1 X 10^3 (0.0-1.0); MONOCYTES % (AUTO) 4 % (0-12); NEUTROPHILS # (AUTO) 1.2 X 10^3 (1.8-7.8); NEUTROPHILS % (AUTO) 69 % (42-75); PLATELET COUNT 65 10^3/uL (130-400); RED CELL DISTRIBUTION WIDTH 13.9 % (10.0-14.5); WHITE BLOOD COUNT 1.7 10^3/uL (4.3-11.0)
[2019-09-22 07:09] LABS: ALANINE AMINOTRANSFERASE 34 U/L (0-55); ALBUMIN 3.5 GM/DL (3.2-4.5); ALKALINE PHOSPHATASE 61 U/L (40-136); BILIRUBIN,TOTAL 0.3 MG/DL (0.1-1.0); BUN/CREATININE RATIO 22; CALCIUM 8.4 MG/DL (8.5-10.1); CARBON DIOXIDE 22 MMOL/L (21-32); CHLORIDE 107 MMOL/L (98-107); CREATININE SERUM 0.81 MG/DL (0.60-1.30); GFR ESTIMATED > 60; GLUCOSE 171 MG/DL (70-105); POTASSIUM 4.3 MMOL/L (3.6-5.0); SODIUM 139 MMOL/L (135-145); TOTAL PROTEIN 6.4 GM/DL (6.4-8.2)
[2019-09-22] MEDS: ASPIRIN E.C. 81 MG (ECOTRIN) TAB PO SCH (08:00)
[2019-09-22] MEDS: ATENOLOL 50 MG (TENORMIN) TAB PO SCH (08:00)
[2019-09-22 08:49] VITALS: BP 120/60
--- NOTE | 2019-09-22 11:49 | NUR ---
CALLED DR BALDWIN'S OFFICE TO REQUEST HOME MEDICATIONS BE RESTARTED TALKED TO LEWIS. PUT ON HOLD TO TALK TO A NURSE. AFTER A VERY LONG WAIT THE MUSIC STOPPED AND THE PHONE STARTED RINGING AGAIN AND THEN LEWIS ANSWERED THE PHONE AGAIN AND ASKED IF HE COULD HELP ME. THIS RN ASKED HIM IF I COULD LEAVE AW MESSAGE WITH HIM FOR HIM TO GIVE TO THE DOCTOR OR HER NURSE REQUESTING THAT THE PATIENT'S HOME MEDICATIONS B E RESTARTED.
[2019-09-22 12:00] VITALS: BP 135/65
--- NOTE | 2019-09-22 12:20 | NUR ---
DR BALDWIN ON THE FLOOR. LET HER KNOW THAT THE PATIENT WANTED HIS HOME MEDICATIONS RESTARTED
[2019-09-22] MEDS ORDERED: guaiFENesin (MUCINEX) 600 MG TAB PO NR (12:45)
[2019-09-22] MEDS ORDERED: methylPREDNISolone 40 MG/ML (Solu-MEDROL) VIAL IV NR (12:45)
[2019-09-22] MEDS: cefTRIAXone FOR IV USE 1,000 MG in WATER (STERILE) FOR INJECTION 10 ML IV SCH (13:12)
[2019-09-22 15:24] VITALS: BP 161/63
[2019-09-22] MEDS: methylPREDNISolone 40 MG/ML (Solu-MEDROL) VIAL IV SCH (18:07)
[2019-09-22] MEDS ORDERED: meTOproloL SUCCINATE 50 MG (TOPROL XL) TAB PO NR (19:00)
[2019-09-22 19:06] VITALS: BP 164/50
--- NOTE | 2019-09-22 19:21 | Progress Note ---
Subjective Date Seen by a Provider: Sep 22, 2019 Time Seen by a Provider: 12:30 Subjective/Events-last exam Fwup pneumonia, COPD exacerbation, HTN, pancytopenia. Still having episodes of wheezing and severe coughing episodes with difficulty breathing. Objective Exam Vital Signs Date Time Temp Pulse Resp B/P (MAP) Pulse Ox O2 Delivery O2 Flow Rate FiO2 09/22/19 19:06 36.1 78 20 164/50 (88) 99 Nasal Cannula 0.50 09/22/19 15:24 36.0 75 20 161/63 (95) 100 Nasal Cannula 0.50 09/22/19 12:00 36.3 80 20 135/65 (88) 100 Nasal Cannula 0.50 09/22/19 09:59 94 Room Air 0.00 09/22/19 08:49 36.7 72 20 120/60 (80) 96 Room Air 09/22/19 08:00 96 Room Air 09/22/19 06:36 94 Nasal Cannula 0.00 09/22/19 04:10 36.2 78 16 163/72 (102) 96 Room Air 09/21/19 23:55 36.4 78 16 149/97 (114) 95 Room Air 09/21/19 22:48 94 Room Air 09/21/19 20:35 35.4 93 20 159/67 (97) 95 Room Air 09/21/19 20:10 Room Air I & O 09/22/19 07:00 Intake Total 1200 ml Balance 1200 ml Capillary Refill : Less Than 3 Seconds General Appearance: No Apparent Distress Neck: Supple Respiratory: Lungs Clear, Decreased Breath Sounds Cardiovascular: Regular Rate, Rhythm Gastrointestinal: normal bowel sounds, non tender, soft Extremity: Non Tender, No Calf Tenderness, No Pedal Edema Neurologic/Psychiatric: Alert, Oriented x3 Skin: Warm/Dry Results Lab Laboratory Tests 09/22/19 06:25: White Blood Count 1.7L, Red Blood Count 2.76L, Hemoglobin 10.0L, Hematocrit 30L, Mean Corpuscular Volume 108H, Mean Corpuscular Hemoglobin 36H, Mean Corpuscular Hemoglobin Concent 34, Red Cell Distribution Width 13.9, Platelet Count 65L, Mean Platelet Volume 9.8, Neutrophils (%) (Auto) 69, Lymphocytes (%) (Auto) 27, Monocytes (%) (Auto) 4, Eosinophils (%) (Auto) 0, Basophils (%) (Auto) 0, Neutrophils # (Auto) 1.2L, Lymphocytes # (Auto) 0.5L, Monocytes # (Auto) 0.1, Eosinophils # (Auto) 0.0, Basophils # (Auto) 0.0, Sodium Level 139, Potassium Level 4.3, Chloride Level 107, Carbon Dioxide Level 22, Anion Gap 10, Blood Urea Nitrogen 18, Creatinine 0.81, Estimat Glomerular Filtration Rate > 60, BUN/Creatinine Ratio 22, Glucose Level 171H, Calcium Level 8.4L, Corrected Calcium 8.8, Total Bilirubin 0.3, Aspartate Amino Transf (AST/SGOT) 28, Alanine Aminotransferase (ALT/SGPT) 34, Alkaline Phosphatase 61, Total Protein 6.4, Albumin 3.5 Microbiology 09/21/19 Gram Stain - Final, Resulted 09/21/19 Sputum Culture - Preliminary, Resulted Usual upper respiratory altaf 09/21/19 Blood Culture - Preliminary, Resulted No growth Assessment/Plan Assessment/Plan Assess & Plan/Chief Complaint 1. Acute Community Acquired Pneumonia--continue with rocephin/zithromax 2. Acute Exacerbation of COPD--Increase IV solumedrol to 80mg IV q6hrs and add singulair and mucinex 3. Pancytopenia--worsening with this hospital stay, hold lovenox and repeat in AM, patient had declined workup for this as an outpatient 4. Hypertension--restart metoprolol Clinical Quality Measures Admission Status Admission Dx 1. Acute Pneumonia--admit and check CXR, cover with rocephin and zithromax, check sputum culture 2. COPD with acute exacerbation--admit and start SVNs with duoneb as well as IV solumedrol 3. Hypoxia--start oxygen via NC at 2L 4. Hypertension--resume home atenolol 5. Chronic Back Pain with Lower Extremity Weakness--weakness worsening with current illness DVT/VTE Risk/Contraindication: Risk Factor Score Per Nursin RFS Level Per Nursing on Admit: 3=High KENYETTA BALDWIN DO Sep 22, 2019 19:21
[2019-09-22] MEDS: DULoxetine 30 MG (CYMBALTA) CAP PO SCH (20:37)
[2019-09-22] MEDS: DOCUSATE SODIUM 100 MG (COLACE) CAP PO SCH (20:38)
[2019-09-22] MEDS: guaiFENesin (MUCINEX) 600 MG TAB PO SCH (20:38)
[2019-09-22] MEDS: MONTELUKAST 10 MG (SINGULAIR) TAB PO SCH (20:38)
[2019-09-22] MEDS ORDERED: NON-FORMULARY MEDICATION 1 EA EA (Duloxetine HCl 60 MG) PO SCH (21:00)
[2019-09-23] VITALS: BP 156/63
[2019-09-23] MEDS: methylPREDNISolone 40 MG/ML (Solu-MEDROL) VIAL IV SCH ×5 (00:22→23:59)
[2019-09-23] MEDS: RT-ALBUTEROL/IPRATROPIUM 3 ML (DUONEB) VIAL INH SCH ×6 (02:48→22:10)
[2019-09-23 04:00] VITALS: BP 162/71
[2019-09-23 05:13] LABS: BASOPHILS % (AUTO) 0 % (0-10); EOSINOPHILS % (AUTO) 0 % (0-10); HEMATOCRIT 31 % (40-54); HEMOGLOBIN 10.1 G/DL (13.3-17.7); LYMPHOCYTES # (AUTO) 0.5 X 10^3 (1.0-4.0); LYMPHOCYTES % (AUTO) 25 % (12-44); MEAN CORPUSCULAR HEMOGLOBIN 36 PG (25-34); MEAN CORPUSCULAR HGB CONC 33 G/DL (32-36); MEAN CORPUSCULAR VOLUME 107 FL (80-99); MEAN PLATELET VOLUME 10.9 FL (7.4-10.4); MONOCYTES # (AUTO) 0.1 X 10^3 (0.0-1.0); MONOCYTES % (AUTO) 5 % (0-12); NEUTROPHILS # (AUTO) 1.4 X 10^3 (1.8-7.8); NEUTROPHILS % (AUTO) 71 % (42-75); PLATELET COUNT 72 10^3/uL (130-400)
[2019-09-23] MEDS: PANTOPRAZOLE 40 MG (PROTONIX) TAB PO SCH ×2 (06:00→20:53)
[2019-09-23 08:00] VITALS: BP 160/69
[2019-09-23] MEDS: guaiFENesin (MUCINEX) 600 MG TAB PO SCH ×2 (09:03→20:53)
[2019-09-23] MEDS: AZITHROMYCIN 250 MG TAB (ZITHROMAX) PO SCH (09:04)
[2019-09-23] MEDS: meTOprolol SUCCINATE 100 MG (TOPROL XL) TAB PO SCH (09:04)
[2019-09-23] MEDS: ASPIRIN E.C. 81 MG (ECOTRIN) TAB PO SCH (09:04)
[2019-09-23] MEDS: DULoxetine 30 MG (CYMBALTA) CAP PO SCH ×2 (09:05→20:53)
[2019-09-23] MEDS: DOCUSATE SODIUM 100 MG (COLACE) CAP PO SCH ×2 (09:05→20:53)
[2019-09-23] MEDS ORDERED: ONDANSETRON 4 MG/2 ML (SDV) Z0FRAN ONE (10:27)
[2019-09-23] MEDS ORDERED: ONDANSETRON 4 MG/2 ML (SDV) Z0FRAN IVP PRN (10:30)
--- NOTE | 2019-09-23 10:30 | NUR ---
ZOFRAN 4MG IV FOR NAUSEA.
[2019-09-23 12:00] VITALS: BP 137/63
[2019-09-23] MEDS: cefTRIAXone FOR IV USE 1,000 MG in WATER (STERILE) FOR INJECTION 10 ML IV SCH (12:55)
--- NOTE | 2019-09-23 14:29 | Progress Note ---
Subjective Date Seen by a Provider: Sep 23, 2019 Time Seen by a Provider: 14:26 Subjective/Events-last exam Fwup pneumonia, COPD exacerbation, HTN, pancytopenia. Wheezing and coughing better today. Off oxygen since last night. Had nausea this morning but better after zofran. Objective Exam Vital Signs Date Time Temp Pulse Resp B/P (MAP) Pulse Ox O2 Delivery O2 Flow Rate FiO2 09/23/19 12:00 36.3 89 18 137/63 (87) 100 Room Air 0.00 09/23/19 08:00 36.2 89 20 160/69 (99) 95 Nasal Cannula 0.50 09/23/19 07:16 90 Room Air 0.00 09/23/19 04:00 36.2 70 20 162/71 (101) 96 Nasal Cannula 0.50 09/23/19 00:00 36.7 73 18 156/63 (94) 98 Nasal Cannula 0.50 09/22/19 22:28 98 Room Air 0.00 09/22/19 20:00 96 Room Air 09/22/19 19:17 95 Room Air 0.00 09/22/19 19:06 36.1 78 20 164/50 (88) 99 Nasal Cannula 0.50 09/22/19 15:24 36.0 75 20 161/63 (95) 100 Nasal Cannula 0.50 I & O 09/23/19 07:00 Intake Total 1260 ml Balance 1260 ml Capillary Refill : Less Than 3 Seconds General Appearance: No Apparent Distress Neck: Supple Respiratory: Lungs Clear Cardiovascular: Regular Rate, Rhythm Gastrointestinal: normal bowel sounds, non tender, soft Extremity: Non Tender, No Calf Tenderness, No Pedal Edema Neurologic/Psychiatric: Alert, Oriented x3 Skin: Warm/Dry Results Lab Laboratory Tests 09/23/19 04:25: White Blood Count 2.0L, Red Blood Count 2.84L, Hemoglobin 10.1L, Hematocrit 31L, Mean Corpuscular Volume 107H, Mean Corpuscular Hemoglobin 36H, Mean Corpuscular Hemoglobin Concent 33, Red Cell Distribution Width 14.0, Platelet Count 72L, Mean Platelet Volume 10.9H, Neutrophils (%) (Auto) 71, Lymphocytes (%) (Auto) 25, Monocytes (%) (Auto) 5, Eosinophils (%) (Auto) 0, Basophils (%) (Auto) 0, Neutrophils # (Auto) 1.4L, Lymphocytes # (Auto) 0.5L, Monocytes # (Auto) 0.1, Eosinophils # (Auto) 0.0, Basophils # (Auto) 0.0 Microbiology 09/21/19 Gram Stain - Final, Resulted 09/21/19 Sputum Culture - Preliminary, Resulted Usual upper respiratory altaf 09/21/19 Blood Culture - Preliminary, Resulted No growth Assessment/Plan Assessment/Plan Assess & Plan/Chief Complaint 1. Acute Community Acquired Pneumonia--continue with rocephin/zithromax 2. Acute Exacerbation of COPD--Wean IV solumedrol 3. Pancytopenia--counts mildy improved today, once again discussed further workup with patient and his and he wants to get over this illness then discuss any further workup at a later date 4. Hypertension--restarted metoprolol, will give amlodopine dose now 5. GERD/Nausea--increase protonix to BID and add zofran prn Clinical Quality Measures Admission Status Admission Dx 1. Acute Pneumonia--admit and check CXR, cover with rocephin and zithromax, check sputum culture 2. COPD with acute exacerbation--admit and start SVNs with duoneb as well as IV solumedrol 3. Hypoxia--start oxygen via NC at 2L 4. Hypertension--resume home atenolol 5. Chronic Back Pain with Lower Extremity Weakness--weakness worsening with current illness DVT/VTE Risk/Contraindication: Risk Factor Score Per Nursin RFS Level Per Nursing on Admit: 3=High KENYETTA BALDWIN DO Sep 23, 2019 14:29
[2019-09-23] MEDS ORDERED: DULO60CA59 PO (14:39)
[2019-09-23] MEDS ORDERED: AZIT250T12 PO (14:39)
[2019-09-23] MEDS ORDERED: PRD20T PO (14:39)
[2019-09-23] MEDS ORDERED: CEFD300C3 PO (14:39)
[2019-09-23] MEDS ORDERED: amLODIPine 5 MG (NORVASC) TAB PO NR (14:45)
[2019-09-23 16:21] VITALS: BP 159/73
[2019-09-23 19:42] VITALS: BP 155/65
[2019-09-23] MEDS: MONTELUKAST 10 MG (SINGULAIR) TAB PO SCH (20:53)
[2019-09-24] VITALS: BP 129/58
[2019-09-24] MEDS: RT-ALBUTEROL/IPRATROPIUM 3 ML (DUONEB) VIAL INH SCH ×2 (02:19→06:55)
[2019-09-24 04:00] VITALS: BP 144/65
[2019-09-24 04:55] LABS: BASOPHILS % (AUTO) 0 % (0-10); EOSINOPHILS % (AUTO) 0 % (0-10); HEMATOCRIT 30 % (40-54); LYMPHOCYTES # (AUTO) 0.5 X 10^3 (1.0-4.0); LYMPHOCYTES % (AUTO) 26 % (12-44); MEAN CORPUSCULAR HEMOGLOBIN 35 PG (25-34); MEAN CORPUSCULAR HGB CONC 33 G/DL (32-36); MEAN CORPUSCULAR VOLUME 107 FL (80-99); MEAN PLATELET VOLUME 10.5 FL (7.4-10.4); MONOCYTES # (AUTO) 0.1 X 10^3 (0.0-1.0); MONOCYTES % (AUTO) 5 % (0-12); NEUTROPHILS # (AUTO) 1.2 X 10^3 (1.8-7.8); NEUTROPHILS % (AUTO) 70 % (42-75); PLATELET COUNT 70 10^3/uL (130-400); RED CELL DISTRIBUTION WIDTH 14.1 % (10.0-14.5); WHITE BLOOD COUNT 1.8 10^3/uL (4.3-11.0)
[2019-09-24 05:30] LABS: ANISOCYTOSIS MODERATE; BAND NEUTROPHILS 4 %; LYMPHOCYTES % (MANUAL) 25 %; MONOCYTES % (MANUAL) 3 %; MYELOCYTES % 1 %; NEUTROPHILS % (MANUAL) 67 %; NUCLEATED RED BLOOD CELLS 1; POLYCHROMASIA SLIGHT
[2019-09-24] MEDS: methylPREDNISolone 40 MG/ML (Solu-MEDROL) VIAL IV SCH (05:53)
[2019-09-24 08:00] VITALS: BP 120/56
[2019-09-24] MEDS: DOCUSATE SODIUM 100 MG (COLACE) CAP PO SCH (09:05)
[2019-09-24] MEDS: PANTOPRAZOLE 40 MG (PROTONIX) TAB PO SCH (09:10)
[2019-09-24] MEDS: meTOprolol SUCCINATE 100 MG (TOPROL XL) TAB PO SCH (09:10)
[2019-09-24] MEDS: guaiFENesin (MUCINEX) 600 MG TAB PO SCH (09:10)
[2019-09-24] MEDS: DULoxetine 30 MG (CYMBALTA) CAP PO SCH (09:10)
[2019-09-24] MEDS: ASPIRIN E.C. 81 MG (ECOTRIN) TAB PO SCH (09:10)
[2019-09-24] MEDS: AZITHROMYCIN 250 MG TAB (ZITHROMAX) PO SCH (09:10)
[2019-09-24 10:52] VITALS: BP 120/56
--- NOTE | 2019-09-24 11:27 | Discharge Summary ---
Discharge Summary Hospital Course Was the Problem List Reviewed?: Yes Hospital Course Date of Admission: Sep 21, 2019 at 12:14 Admission Diagnosis : community-acquired pneumonia Family Physician/Provider: Kenyetta Piper DO Date of Discharge: 09/24/19 Discharge Diagnosis: community acquired pneumonia, COPD exacerbation Hospital Course: Andrea Nichols is a 78-year-old male who presented with shortness of breath and was admitted with pneumonia and acute exacerbation of COPD. He was treated with IV antibiotics initially and responded well. He was transitioned to oral antibiotics and will complete a course of Omnicef and azithromycin. He was also treated for acute exacerbation of COPD with breathing treatments and steroids. He will complete a course of steroids as an outpatient. He should follow-up with Dr. Piper in about one week. His course was complicated by pancytopenia, which has been a recent issue, which will continue to be evaluated as an outpatient. Labs and Pending Lab Test: Laboratory Tests 09/24/19 04:29: White Blood Count 1.8L, Red Blood Count 2.83L, Hemoglobin 10.0L, Hematocrit 30L, Mean Corpuscular Volume 107H, Mean Corpuscular Hemoglobin 35H, Mean Corpuscular Hemoglobin Concent 33, Red Cell Distribution Width 14.1, Platelet Count 70L, Mean Platelet Volume 10.5H, Neutrophils (%) (Auto) 70, Lymphocytes (%) (Auto) 26, Monocytes (%) (Auto) 5, Eosinophils (%) (Auto) 0, Basophils (%) (Auto) 0, Neutrophils # (Auto) 1.2L, Lymphocytes # (Auto) 0.5L, Monocytes # (Auto) 0.1, Eosinophils # (Auto) 0.0, Basophils # (Auto) 0.0, Neutrophils % (Manual) 67, Lymphocytes % (Manual) 25, Monocytes % (Manual) 3, Myelocytes % 1, Band Neutrophils 4, Nucleated Red Blood Cells 1, Polychromasia SLIGHT, Anisocytosis MODERATE, Macrocytosis MODERATE Microbiology 09/21/19 Gram Stain - Final, Resulted 09/21/19 Sputum Culture - Preliminary, Resulted Usual upper respiratory altaf 09/21/19 Blood Culture - Preliminary, Resulted No growth Home Meds Active Prednisone 20 Mg Tab 0 PO DAILY 1 three times a day for 3 days then twice a day for 3 days then one a day for 3 days Cefdinir 300 Mg Capsule 300 Mg PO BID Azithromycin 250 Mg Tablet 250 Mg PO DAILY 3 Days Duloxetine HCl 60 Mg Capsule. 60 Mg PO DAILY Reported Vitamin D3 (Cholecalciferol (Vitamin D3)) 25 Mcg Capsule 25 Mcg PO DAILY Metoprolol Succinate 100 Mg Tab.er.24h 100 Mg PO DAILY Hydrocodone-Acetamin 7.5-325 (Hydrocodone/Acetaminophen) 1 Each Tablet 1 Tab PO Q4H PRN Ketoconazole 15 Gm Cream..g. TOP DAILY PRN Nizoral (Ketoconazole) 120 Ml Shampoo TOP UD PRN Ipratropium [place] 15 Ml Naspr 2 Sprays NS DAILY Colace (Docusate Sodium) 100 Mg Capsule 100 Mg PO BID Aspirin EC (Aspirin) 81 Mg Tablet. 81 Mg PO DAILY Montelukast Sodium 10 Mg Tablet 10 Mg PO HS Dexilant (Dexlansoprazole) 60 Mg Cap.bp 60 Mg PO DAILY Ventolin Hfa (Albuterol Sulfate) 18 Gm Hfa.aer.ad 2 Puff INH Q4H PRN Atorvastatin Calcium 40 Mg Tablet 40 Mg PO DAILY Assessment/Pt Instructions take medications as prescribed. Complete year course of antibiotics even if you're feeling better. Complete your taper of steroids. Follow-up with Dr. Piper in about a week. Return to the hospital with worsening shortness of breath, fevers, or if you feel like you're getting worse. Discharge Planning: <30 minutes discharge planning Discharge Instructions Discharge Diet: No Restrictions Activity as Tolerated: Yes Discharge Physical Examination Vital Signs Vital Signs Date Time Temp Pulse Resp B/P (MAP) Pulse Ox O2 Delivery O2 Flow Rate FiO2 09/24/19 10:52 36.5 66 18 120/56 97 Room Air 0.00 09/21/19 13:51 21 General Appearance: No Apparent Distress, WD/WN HEENT: PERRL/EOMI, Pharynx Normal Respiratory: No Respiratory Distress, Wheezing Cardiovascular: Regular Rate, Rhythm, No Edema, No Murmur Gastrointestinal: Normal Bowel Sounds, Non Tender, Soft Extremity: Normal Inspection, Non Tender, No Pedal Edema Skin: Normal Color, Warm/Dry Neurologic/Psychiatric: Alert, Oriented x3, No Motor/Sensory Deficits, Normal Mood/Affect Allergies: Coded Allergies: Sulfa (Sulfonamide Antibiotics) (Verified Allergy, Unknown, 03/16/19) Copy Copies To 1: KENYETTA PIPER DO Discharge Summary Date of Admission Sep 21, 2019 at 12:14 Date of Discharge Discharge Date: Sep 24, 2019 Discharge Time: 11:26 Admission Diagnosis pneumonia Discharge Diagnosis community acquired pneumonia, COPD exacerbation (1) COPD with exacerbation Status: Acute (2) Community acquired pneumonia Status: Acute Clinical Quality Measures DVT/VTE Risk/Contraindication: Risk Factor Score Per Nursin RFS Level Per Nursing on Admit: 3=High JUVENCIO MEADOWS MD Sep 24, 2019 11:27
== END 2019-09-24 10:55 | disposition home or self-care (01) | DRG 190 ==
LOC: 4TH 12:14
PROVIDERS: ADMIT Family Medicine; ATTEND Family Medicine
DX: J44.0 Chronic obstructive pulmonary disease with (acute) lower respiratory infection (principal); J18.9 Pneumonia, unspecified organism; J44.1 Chronic obstructive pulmonary disease with (acute) exacerbation; D61.818 Other pancytopenia; R09.02 Hypoxemia; J30.2 Other seasonal allergic rhinitis; I25.10 Atherosclerotic heart disease of native coronary artery without angina pectoris; I10 Essential (primary) hypertension; E78.00 Pure hypercholesterolemia, unspecified; I73.9 Peripheral vascular disease, unspecified; K21.9 Gastro-esophageal reflux disease without esophagitis; M19.91 Primary osteoarthritis, unspecified site; M54.9 Dorsalgia, unspecified; F32.9 Major depressive disorder, single episode, unspecified; R53.1 Weakness; Z87.891 Personal history of nicotine dependence; Z95.5 Presence of coronary angioplasty implant and graft; Z87.19 Personal history of other diseases of the digestive system
CPT/HCPCS: 36415; 71045; 80053; 85007; 85025; 85027; 87040; 87070; 87205; 87804; 94640; 94760

== ENCOUNTER 2019-10-07 12:40 | Emergency (ER) | payer MEDICARE, OTHER ==
[~2019-10-07] VITALS: Ht 177.8 cm; Wt 110.9 kg
[~2019-10-07 12:40] MED LIST changes: +ASPI-983 PO; +AZIT250T12 PO; +BACL20TA PO; +CHOL100048 PO; +DOCU-143 PO; +HYDR-3816 PO; +KETO120S5 TOP; +KETO15CR2 TOP; +MTP100TCR PO
--- NOTE | 2019-10-07 13:33 | ED General ---
General Chief Complaint: General Problems/Pain Stated Complaint: ABNORMAL LAB RESULTS;WEAKNESS Nursing Triage Note: PT TO RM 8 BY WHEELCHAIR AFTER BEING SENT OVER FROM DR DANIELS OFFICE. STATES WAS TOLD TO COME TO ER TO HAVE BLOOD WORK AFTER HAVING ABNORMAL PLATELET COUNT. PT WAS RECENTLY DISCHARGED FROM HOSPITAL. Nursing Sepsis Screen: No Definite Risk Source of Information: Patient Exam Limitations: No Limitations History of Present Illness Date Seen by Provider: Oct 07, 2019 Time Seen by Provider: 13:30 Initial Comments To ER with reports of abnormal labs, was referred to the emergency room due to a platelet count of 23,000 on outpatient labs this morning, he was discharged from the hospital recently about 2 weeks ago. He's had generalized weakness since being discharged. He denies any bleeding gums, dark tarry stools or any other indication that he might have bleeding. Timing/Duration: 1-2 Days Severity: Moderate Associated Systoms: Weakness Allergies and Home Medications Allergies Coded Allergies: Sulfa (Sulfonamide Antibiotics) (Verified Allergy, Unknown, 03/16/19) Home Medications Albuterol Sulfate 18 Gm Hfa.aer.ad, 2 PUFF INH Q4H PRN for SHORTNESS OF BREATH, (Reported) Aspirin 81 Mg Tablet., 81 MG PO DAILY, (Reported) Atorvastatin Calcium 40 Mg Tablet, 40 MG PO DAILY, (Reported) Azithromycin 250 Mg Tablet, 250 MG PO DAILY Prescribed by: KENYETTA PIPER on 09/23/19 1439 Cefdinir 300 Mg Capsule, 300 MG PO BID Prescribed by: KENYETTA PIPER on 09/23/19 1439 Cholecalciferol (Vitamin D3) 25 Mcg Capsule, 25 MCG PO DAILY, (Reported) Dexlansoprazole 60 Mg Frank.bp, 60 MG PO DAILY, (Reported) Docusate Sodium 100 Mg Capsule, 100 MG PO BID, (Reported) Duloxetine HCl 60 Mg Capsule., 60 MG PO DAILY Prescribed by: KENYETTA PIPER on 09/23/19 1439 Hydrocodone/Acetaminophen 1 Each Tablet, 1 TAB PO Q4H PRN for PAIN-MODERATE (5- 7), (Reported) Ipratropium [place] 15 Ml Naspr, 2 SPRAYS NS DAILY, (Reported) Ketoconazole 120 Ml Shampoo, TOP UD PRN for WHEN TAKING A SHOWER, (Reported) Ketoconazole 15 Gm Cream..g., TOP DAILY PRN for RED SPOTS, (Reported) Metoprolol Succinate 100 Mg Tab.er.24h, 100 MG PO DAILY, (Reported) Montelukast Sodium 10 Mg Tablet, 10 MG PO HS, (Reported) Prednisone 20 Mg Tab, 0 PO DAILY 1 three times a day for 3 days then twice a day for 3 days then one a day for 3 days Prescribed by: KENYETTA PIPER on 09/23/19 1389 Patient Home Medication List Home Medication List Reviewed: Yes Review of Systems Review of Systems Constitutional: see HPI EENTM: see HPI Respiratory: no symptoms reported Cardiovascular: no symptoms reported Genitourinary: no symptoms reported Musculoskeletal: no symptoms reported Skin: no symptoms reported Psychiatric/Neurological: No Symptoms Reported Hematologic/Lymphatic: No Symptoms Reported Immunological/Allergic: no symptoms reported Past Jlsqivh-Nqwmxd-Uyrivd Hx Patient Social History Alcohol Use: Denies Use Recreational Drug Use: No Smoking Status: Former Smoker Type Used: Cigarettes Former Smoker, Quit: Aug 31, 2012 Recent Foreign Travel: No Contact w/Someone Who Travel: No Recent Infectious Disease Expo: No Recent Hopitalizations: No Immunizations Up To Date Tetanus Booster (TDap): More than 5yrs PED Vaccines UTD: No Date of Pneumonia Vaccine: May 31, 2014 Date of Influenza Vaccine: May 31, 2019 Seasonal Allergies Seasonal Allergies: Yes Past Medical History Surgeries: Yes Cardiac, Coronary Stent, Eye Surgery, Orthopedic, Vascular Surgery Respiratory: Yes (COPD) Pneumonia, COPD Currently Using CPAP: No Currently Using BIPAP: No Cardiac: Yes (STENTS IN HEART, CAROTID ARTERY, LEGS) Coronary Artery Disease, High Cholesterol, Hypertension, Peripheral Vascular Neurological: No Reproductive Disorders: No Sexually Transmitted Disease: No HIV/AIDS: No Genitourinary: Yes Prostate Problems Gastrointestinal: Yes (ABDOMINAL PAIN AT TIMES) Gastroesophageal Reflux, Diverticulosis, Hemorrhoids Musculoskeletal: Yes (ARTHRITIS "ALL OVER") Degenerate Disk Disease, Arthritis, Chronic Back Pain Endocrine: No HEENT: No Loss of Vision: Denies Hearing Impairment: Denies Cancer: No Psychosocial: Yes Depression Integumentary: No Blood Disorders: No Adverse Reaction/Blood Tranf: No Family Medical History Patient reports no known family medical history. No Pertinent Family Hx Physical Exam Vital Signs Vital Signs - First Documented 10/07/19 12:45 Temp 37.4 Pulse 60 Resp 15 B/P (MAP) 127/37 (67) Pulse Ox 94 O2 Delivery Room Air Capillary Refill : Less Than 3 Seconds Height, Weight, BMI Height: 5'10.00" Weight: 245lbs. 3.0oz. 111.263179zr; 35.00 BMI Method:Stated General Appearance: No Apparent Distress, WD/WN Eyes: Bilateral Eye Normal Inspection, Bilateral Eye PERRL HEENT: PERRL/EOMI, TMs Normal Respiratory: No Accessory Muscle Use, No Respiratory Distress Extremity: Normal Capillary Refill, Normal Inspection Neurologic/Psychiatric: Alert, Oriented x3 Skin: Normal Color, Warm/Dry Progress/Results/Core Measures Suspected Sepsis Recent Fever Within 48 Hours: No Infection Criteria Present: None New/Unexplained Altered Menta: No Sepsis Screen: No Definite Risk SIRS Temperature: Pulse: 60 Respiratory Rate: 15 Laboratory Tests 10/07/19 13:29: White Blood Count 2.4L Blood Pressure 127 /37 Mean: 67 Laboratory Tests 10/07/19 13:29: Creatinine 0.91, Platelet Count 26*L, Total Bilirubin 0.6 Results/Orders Lab Results Laboratory Tests Test 10/07/19 13:29 Range/Units White Blood Count 2.4 L 4.3-11.0 10^3/uL Red Blood Count 3.19 L 4.35-5.85 10^6/uL Hemoglobin 11.5 L 13.3-17.7 G/DL Hematocrit 34 L 40-54 % Mean Corpuscular Volume 108 H 80-99 FL Mean Corpuscular Hemoglobin 36 H 25-34 PG Mean Corpuscular Hemoglobin Concent 34 32-36 G/DL Red Cell Distribution Width 13.6 10.0-14.5 % Platelet Count 26 *L 130-400 10^3/uL Mean Platelet Volume 11.3 H 7.4-10.4 FL Neutrophils (%) (Auto) 42 42-75 % Lymphocytes (%) (Auto) 41 12-44 % Monocytes (%) (Auto) 16 H 0-12 % Eosinophils (%) (Auto) 0 0-10 % Basophils (%) (Auto) 0 0-10 % Neutrophils # (Auto) 1.0 L 1.8-7.8 X 10^3 Lymphocytes # (Auto) 1.0 1.0-4.0 X 10^3 Monocytes # (Auto) 0.4 0.0-1.0 X 10^3 Eosinophils # (Auto) 0.0 0.0-0.3 10^3/uL Basophils # (Auto) 0.0 0.0-0.1 10^3/uL Sodium Level 134 L 135-145 MMOL/L Potassium Level 5.1 H 3.6-5.0 MMOL/L Chloride Level 101 98-107 MMOL/L Carbon Dioxide Level 23 21-32 MMOL/L Anion Gap 10 5-14 MMOL/L Blood Urea Nitrogen 17 7-18 MG/DL Creatinine 0.91 0.60-1.30 MG/DL Estimat Glomerular Filtration Rate > 60 BUN/Creatinine Ratio 19 Glucose Level 112 H 70-105 MG/DL Calcium Level 8.7 8.5-10.1 MG/DL Corrected Calcium 9.0 8.5-10.1 MG/DL Total Bilirubin 0.6 0.1-1.0 MG/DL Aspartate Amino Transf (AST/SGOT) 20 5-34 U/L Alanine Aminotransferase (ALT/SGPT) 50 0-55 U/L Alkaline Phosphatase 67 40-136 U/L Total Protein 6.6 6.4-8.2 GM/DL Albumin 3.6 3.2-4.5 GM/DL Smear Scan YES My Orders Orders - YULIANA TEJADA APRN Cbc With Automated Diff (10/07/19 13:14) Comprehensive Metabolic Panel (10/07/19 13:14) Vital Signs/I&O 10/07/19 12:45 Temp 37.4 Pulse 60 Resp 15 B/P (MAP) 127/37 (67) Pulse Ox 94 O2 Delivery Room Air Capillary Refill : Less Than 3 Seconds Blood Pressure Mean: 67 Departure Communication (Admissions) Spoke with Dr. Durga Gaytan who is cotton grader for Dr. Piper, he has no sign of bleeding his platelet count Was 26,000, we'll discharge home for outpatient follow-up. Impression Primary Impression: Pancytopenia Disposition: HOME, SELF-CARE Condition: Stable Departure-Patient Inst. Decision time for Depature: 15:12 Referrals: KENYETTA PIPER DO (PCP/Family) Primary Care Physician Patient Instructions: NO INSTRUCTIONS GIVEN Add. Discharge Instructions: 1. No aspirin and no ibuprofen. Follow up with Dr. PIPER on Thursday. Return to the emergency room in the meantime for any sign of bleeding such as bloody nose, bleeding gums, dark tarry stools, lightheadedness or any other concerns. All discharge instructions reviewed with patient and/or family. Voiced understanding. Copy Copies To 1: KENYETTA PIPER PETER J APRN Oct 07, 2019 13:33
[2019-10-07 13:42] LABS: BASOPHILS % (AUTO) 0 % (0-10); EOSINOPHILS % (AUTO) 0 % (0-10); HEMATOCRIT 34 % (40-54); HEMOGLOBIN 11.5 G/DL (13.3-17.7); LYMPHOCYTES % (AUTO) 41 % (12-44); MEAN CORPUSCULAR HEMOGLOBIN 36 PG (25-34); MEAN CORPUSCULAR HGB CONC 34 G/DL (32-36); MEAN CORPUSCULAR VOLUME 108 FL (80-99); MEAN PLATELET VOLUME 11.3 FL (7.4-10.4); MONOCYTES # (AUTO) 0.4 X 10^3 (0.0-1.0); MONOCYTES % (AUTO) 16 % (0-12); NEUTROPHILS % (AUTO) 42 % (42-75); RED CELL DISTRIBUTION WIDTH 13.6 % (10.0-14.5); WHITE BLOOD COUNT 2.4 10^3/uL (4.3-11.0)
[2019-10-07 13:47] LABS: PLATELET COUNT 26 10^3/uL (130-400); SMEAR SCAN COMMENT YES
[2019-10-07 14:02] LABS: ALANINE AMINOTRANSFERASE 50 U/L (0-55); ALBUMIN 3.6 GM/DL (3.2-4.5); ALKALINE PHOSPHATASE 67 U/L (40-136); BILIRUBIN,TOTAL 0.6 MG/DL (0.1-1.0); BUN/CREATININE RATIO 19; CALCIUM 8.7 MG/DL (8.5-10.1); CARBON DIOXIDE 23 MMOL/L (21-32); CHLORIDE 101 MMOL/L (98-107); CREATININE SERUM 0.91 MG/DL (0.60-1.30); GFR ESTIMATED > 60; GLUCOSE 112 MG/DL (70-105); POTASSIUM 5.1 MMOL/L (3.6-5.0); SODIUM 134 MMOL/L (135-145); TOTAL PROTEIN 6.6 GM/DL (6.4-8.2)
[2019-10-07 15:23] VITALS: BP 119/55
== END 2019-10-07 15:23 | disposition home or self-care (01) ==
LOC: EDUNIT# 12:40 → ER 12:42
DX: D61.818 Other pancytopenia (principal); J44.9 Chronic obstructive pulmonary disease, unspecified; I10 Essential (primary) hypertension; E78.00 Pure hypercholesterolemia, unspecified; I25.10 Atherosclerotic heart disease of native coronary artery without angina pectoris; F32.9 Major depressive disorder, single episode, unspecified; K21.9 Gastro-esophageal reflux disease without esophagitis; Z88.2 Allergy status to sulfonamides; Z79.82 Long term (current) use of aspirin; Z87.891 Personal history of nicotine dependence
CPT/HCPCS: 36415; 80053; 85025

== ENCOUNTER 2019-10-18 07:34 | Outpatient (CLI) | payer MEDICARE, OTHER ==
[~2019-10-18] VITALS: Ht 177 cm; Wt 110.9 kg
[2019-10-18] VITALS (10 sets, daily range): BP systolic 116–175; BP diastolic 43–93
[2019-10-18] MEDS ORDERED: NS IV 1000 ML 1,000 ML IV STA (07:47)
[2019-10-18] MEDS ORDERED: fentaNYL INJECTION 100 MCG/2 ML AMP IVP ONE (08:00)
[2019-10-18] MEDS ORDERED: MIDAZOLAM 2 MG/2 ML (VERSED) VIAL IVP ONE (08:00)
[2019-10-18] MEDS ORDERED: LIDOCAINE 1% INJ 20 ML 20 ML VIAL INJ ONE (08:00)
[2019-10-18 08:17] LABS: ABSOLUTE RETIC # 23 10e9/L (24-90); BASOPHILS % (AUTO) 1 % (0-10); EOSINOPHILS % (AUTO) 1 % (0-10); HEMATOCRIT 29 % (40-54); HEMOGLOBIN 9.4 G/DL (13.3-17.7); LYMPHOCYTES # (AUTO) 1.5 X 10^3 (1.0-4.0); LYMPHOCYTES % (AUTO) 75 % (12-44); MEAN CORPUSCULAR HEMOGLOBIN 35 PG (25-34); MEAN CORPUSCULAR HGB CONC 33 G/DL (32-36); MEAN CORPUSCULAR VOLUME 107 FL (80-99); MEAN PLATELET VOLUME 11.2 FL (7.4-10.4); MONOCYTES # (AUTO) 0.2 X 10^3 (0.0-1.0); MONOCYTES % (AUTO) 9 % (0-12); NEUTROPHILS # (AUTO) 0.3 X 10^3 (1.8-7.8); NEUTROPHILS % (AUTO) 15 % (42-75); PROTHROMBIN TIME PATIENT 13.2 SEC (12.2-14.7); RED CELL DISTRIBUTION WIDTH 13.4 % (10.0-14.5); RETICULOCYTE % 0.87 % (0.50-2.40)
[2019-10-18 08:21] LABS: PLATELET COUNT 26 10^3/uL (130-400)
[2019-10-18 08:55] LABS: ANISOCYTOSIS MODERATE; LYMPHOCYTES % (MANUAL) 73 %; MONOCYTES % (MANUAL) 8 %; NEUTROPHILS % (MANUAL) 19 %; POLYCHROMASIA SLIGHT
--- NOTE | 2019-10-18 08:55 | NUR ---
Dr. Eugene notified of critical platelet result. Other labs, including coagulation studies, also reviewed.
[2019-10-18 08:56] LABS: BURR CELLS SLIGHT; ELLIPT/OVALOCYTES SLIGHT
[2019-10-18] MEDS ORDERED: HYDROcodone/APAP 5 MG/325 MG (LORTAB) TAB PO PRN (10:15)
--- NOTE | 2019-10-18 10:48 | Diagnostic Imaging Report ---
INDICATION: Thrombocytopenia. TECHNIQUE AND FINDINGS: The patient was placed on the table in the prone position. Conscious sedation was performed with 75 mcg of fentanyl and 1 mg of Versed during constant nursing supervision. Procedure started at 9:42 and ended at 9:49. A preliminary CT scan was obtained for localization purposes. The patient's back was prepped and draped utilizing maximal sterile barrier technique. Local anesthesia was obtained 2% lidocaine. Bone marrow drill was used to advance the needle into the right iliac crest. 20 mL of aspirate was submitted directly to pathology. Needle was advanced approximately a centimeter and a half. This was then withdrawn. Core biopsy was also submitted to pathology. Following the procedure adequate hemostasis was obtained. Patient tolerated procedure well and left the department in stable condition. IMPRESSION: Successful CT-guided bone marrow biopsy as described. Dictated by: Dictated on workstation # [id number]
== END 2019-10-18 12:00 | disposition home or self-care (01) ==
LOC: SDC 07:34
PROVIDERS: ATTEND Internal Medicine Hematology & Oncology
DX: D46.9 Myelodysplastic syndrome, unspecified (principal); D69.6 Thrombocytopenia, unspecified; D61.818 Other pancytopenia; Z79.899 Other long term (current) drug therapy; Z88.2 Allergy status to sulfonamides; I10 Essential (primary) hypertension; I73.9 Peripheral vascular disease, unspecified; J44.9 Chronic obstructive pulmonary disease, unspecified; I25.10 Atherosclerotic heart disease of native coronary artery without angina pectoris; Z99.81 Dependence on supplemental oxygen; Z95.5 Presence of coronary angioplasty implant and graft; E78.00 Pure hypercholesterolemia, unspecified; Z86.010 Personal history of colon polyps; M47.9 Spondylosis, unspecified; Z87.891 Personal history of nicotine dependence; Z80.3 Family history of malignant neoplasm of breast
CPT/HCPCS: 36415; 38222; 77012; 85007; 85027; 85045; 85610; 85730; 99156

== ENCOUNTER 2019-11-09 09:14 | Outpatient (CLI) | payer MEDICARE, OTHER ==
[~2019-11-09] VITALS: Ht 175 cm; Wt 100.0 kg
[~2019-11-09 09:14] MED LIST changes: -HYDR-3816 PO; -MONT10TA24 PO; +MONT10TA26 PO
[2019-11-10] MEDS ORDERED: HYDR15SO6 PO (11:46)
[2019-11-10] MEDS ORDERED: BACL20TA PO (12:57)
[2019-11-10] MEDS ORDERED: IPRA30SP NS (12:57)
[2019-11-10] MEDS ORDERED: FURO-124 PO (12:57)
[2019-11-10] MEDS ORDERED: ONDA8TAB13 PO (12:57)
[2019-11-10] MEDS ORDERED: AMLO5TAB9 PO (12:57)
[2019-11-10] MEDS ORDERED: POTA10TA PO (12:57)
== END 2019-11-09 10:12 | disposition home or self-care (01) ==
LOC: PREOP 09:14
PROVIDERS: ATTEND Surgery
DX: Z01.818 Encounter for other preprocedural examination (principal)

== ENCOUNTER 2019-11-10 11:26 | Day surgery (SDC) | payer MEDICARE, OTHER ==
[~2019-11-10] VITALS: Ht 175 cm; Wt 100.0 kg
[2019-11-10] VITALS (7 sets, daily range): BP systolic 110–165; BP diastolic 45–67
--- NOTE | 2019-11-10 06:44 | HISTORY AND PHYSICAL ---
DATE OF SERVICE: PROCEDURE DATE: 11/10/2019. HISTORY OF PRESENT ILLNESS: The patient is a 78-year-old male who is known to us. He has been seen by us before in the past for history of gastroesophageal reflux disease and underwent an EGD on 02/06/2012, which showed reflux esophagitis class B, small hiatal hernia approximately 1.5 cm in size as well as moderate severity gastritis. Biopsies were negative for H. pylori as well as negative for Balderas's esophagus. He was placed on Dexilant, which did help with his symptoms. He also then developed an episode of rectal bleeding as well as diarrhea and constipation. He did have a colonoscopy in 2005. An adenomatous polyp was identified. He did undergo a colonoscopy by us on 04/27/2013. He was found to have a small polyp of the sigmoid colon, which was biopsied and found to be benign. He then underwent another colonoscopy by us in 11/2014 where he was found to have chronic stage II external and internal hemorrhoids as well as 2 small adjacent hyperplastic polyp of the rectum and mild to moderate sigmoid diverticulosis. On today's visit, the patient reports that for the last several months to the last couple of years, he has been having increasing weakness as well as shortness of breath. He was in the hospital a few months ago and was found to have thrombocytopenia. He reports that he did receive several blood transfusions since that time and reports that has brought his platelets as well as blood counts up some. He reports that he was then sent for a bone marrow biopsy in October of this year and was found to have myelodysplastic syndrome with excess blast. He reports he was then sent for oncology and reports it was decided to proceed with chemotherapy and reports that he has currently undergone 2 rounds of chemotherapy and is now needing a Groshong port to continue treatment. PAST MEDICAL HISTORY: COPD, sleep apnea, hypertension, hypercholesterolemia, coronary artery disease, history of nephrolithiasis, thyroid nodule, bilateral sciatica, chronic back pain, emphysema, lumbar spinal stenosis and spondylosis, neuropathy, osteoporosis, osteomalacia. PAST SURGICAL HISTORY: Umbilical hernia repair, cervical diskectomy in 1997, cardiac catheterization and stent placement x2 in 2007, carotid stent in 2008, eye surgery in 1967. Spinal stimulator placed in August 2017 and right cataracts removed 2018. ALLERGIES: SULFA. MEDICATIONS: Singulair 10 mg daily, atenolol 50 mg b.i.d., Lyrica 150 mg b.i.d., Cymbalta 60 mg b.i.d., atorvastatin 40 mg daily, Dexilant 60 mg daily, stool softener 100 mg b.i.d., Ventolin 90 mcg inhaler p.r.n., hydrocodone 7.5/25 mg p.r.n., Tylenol p.r.n., methocarbamol 750 mg p.r.n., potassium 10 mEq p.r.n., Lasix 40 mg p.r.n., oxycodone 5/325 mg p.r.n., Symbicort 160/4.5 mcg 2 puffs b.i.d. SOCIAL HISTORY: Previous for smoke 50 pack years, quit in 2010, negative for alcohol. FAMILY HISTORY: Mother with breast cancer. Maternal grandfather, myocardial infarction in his 70s. VITAL SIGNS: Stable. Current weight is 232 pounds at 5 feet 10 inches. REVIEW OF SYSTEMS: Well-nourished male in no acute distress. He does report episodes of shortness of breath, but no difficulty breathing. No chest pain, palpitations or diaphoresis. No nausea, vomiting or abdominal pain. No diarrhea, but does report was found to be constipation. No red blood per rectum. No dark tarry stools. No fever or chills. No recent inadvertent weight loss. He does report increased weakness. All other review of systems negative. PHYSICAL EXAMINATION: CHEST: Clear. Good breath sounds bilaterally. HEART: Regular, no murmurs. EXTREMITIES: No lower extremity edema. Negative Homans sign. HEENT: No scleral icterus. NECK: No cervical lymphadenopathy. ABDOMEN: Soft, nontender, nondistended. SKIN: Warm, dry and pink. NEUROLOGIC: Awake, alert and oriented x3. ASSESSMENT AND PLAN: A 78-year-old male with a myelodysplastic syndrome with excess blast. At this time, he is needing to continue to undergo chemotherapy and will need a Groshong port. The risks and benefits of the procedure as well as the procedure and home care instructions were explained to the patient. The patient verbalized understanding of instructions and agrees to proceed as planned. At this time, we will proceed with placement of an internal Groshong catheter. Job ID: [id number] DocumentID: [id number] Dictated Date: 11/08/2019 16:58:30 Scale Reclamation Tender Date: 11/08/2019 17:34:19 Dictated By: SURESH MENDOSA APRN
[2019-11-10] MEDS ORDERED: LACTATED RINGERS 1,000 ML IV PRN (11:32)
--- NOTE | 2019-11-10 11:44 | Progress Note-Pre Operative ---
Pre-Operative Progress Note H&P Reviewed The H&P was reviewed, patient examined and no changes noted. Date Seen by Provider: Nov 10, 2019 Time Seen by Provider: 11:00 Date H&P Reviewed: Nov 10, 2019 Time H&P Reviewed: 11:00 Pre-Operative Diagnosis: myelodysplastic syndrome MERCEDES SMART MD Nov 10, 2019 11:44
[2019-11-10] MEDS ORDERED: ACETAMINOPHEN 325 MG TABLET PO PRN (11:45)
[2019-11-10] MEDS ORDERED: HYDROcodone/APAP 5 MG/325 MG (LORTAB) TAB PO ONE (11:45)
[2019-11-10] MEDS ORDERED: ONDANSETRON 4 MG/2 ML (SDV) Z0FRAN IVP PRN ×2 (11:45→14:15)
[2019-11-10] MEDS ORDERED: ceFAZolin 2 GM/50 ML NS 50 ML IV ONE (11:45)
[2019-11-10] MEDS ORDERED: morphine INJ 10 MG/ML 1ML (SYR OR VIAL) IVP PRN ×2 (11:45)
[2019-11-10] MEDS ORDERED: HYDR15SO6 PO (11:46)
--- NOTE | 2019-11-10 11:46 | Discharge Inst-Surgical ---
D/C Lap Instructions-BING New, Converted, or Re-Newed RX: RX on Chart Follow Up Appt in 2 weeks Activity as tolerated No driving for 24 hours No driving while on pain medications Incentive Spirometry use every 2 hours while awake Regular Diet Symptoms to Report: Fever over 101 degree F, Nausea/Vomiting Infection Signs and Symptoms to report: Increased redness, Foul odor of wound, Increased drainage Bathing instructions: May shower Operative Area Clean/Dry; Keep incision clean/dry If any problems/questions: Contact your physician or go to Emergency Room MERCEDES SMART MD Nov 10, 2019 11:46
[2019-11-10] MEDS ORDERED: ceFAZolin 2 GM IV Premixed 50 ML IV ONE (12:00)
[2019-11-10] MEDS ORDERED: HEParin (CENTRAL IV FLUSH) 500 UNIT/5 ML SYR ONE (12:41)
[2019-11-10] MEDS ORDERED: 0.9% SODIUM CHLORIDE PF INJ 20 ML VIAL ONE (12:41)
[2019-11-10] MEDS ORDERED: BUP/EPI 0.5% 1:200,000 (SENSORCAINE) 30 ML VIAL ONE (12:41)
[2019-11-10] MEDS ORDERED: PROPOFOL INJECTION 50 ML IV ONE (12:42)
[2019-11-10] MEDS ORDERED: fentaNYL INJECTION 100 MCG/2 ML AMP ONE (12:42)
[2019-11-10] MEDS ORDERED: ONDA8TAB13 PO (12:57)
[2019-11-10] MEDS ORDERED: BACL20TA PO (12:57)
[2019-11-10] MEDS ORDERED: AMLO5TAB9 PO (12:57)
[2019-11-10] MEDS ORDERED: FURO-124 PO (12:57)
[2019-11-10] MEDS ORDERED: IPRA30SP NS (12:57)
[2019-11-10] MEDS ORDERED: POTA10TA PO (12:57)
--- NOTE | 2019-11-10 14:08 | Progress Note-Post Operative ---
Post-Operative Progess Note Surgeon (s)/Lump Receiver (s) Surgeon MERCEDES SMART MD Lump Receiver: delroy montanez TECHNICAL INTERN Pre-Operative Diagnosis myelodysplastic syndrome Post-Operative Diagnosis same Procedure & Operative Findings Date of Procedure 11/10/19 Procedure Performed/Findings left subclavian groshong implantable cath placement under flouroscopy. Anesthesia Type mac Estimated Blood Loss Estimated blood loss (mL): minimal Specimens/Packing Specimens Removed none MERCEDES SMART MD Nov 10, 2019 14:08
[2019-11-10] MEDS ORDERED: morphine INJ 10 MG/ML 1ML (SYR OR VIAL) IVP ONE (14:15)
[2019-11-10] MEDS ORDERED: MEPERIDINE (DEMEROL) INJ 50 MG/ML IVP ONE (14:15)
[2019-11-10] MEDS ORDERED: fentaNYL INJECTION 100 MCG/2 ML AMP IVP ONE (14:15)
--- NOTE | 2019-11-10 14:44 | Diagnostic Imaging Report ---
INDICATION: Postop, Port-A-Cath placement. Frontal chest obtained at 2:36 p.m. and compared to 09/21/2019. FINDINGS: Heart is borderline in size. Mediastinal silhouette is unremarkable. The lungs are clear. There is no pneumothorax or pleural fluid. There is a Port-A-Cath over the left chest with catheter entering the left subclavian vein and catheter tip overlying the mid SVC. IMPRESSION: Postop films demonstrate Port-A-Cath placement as above with no acute complicating feature. Dictated by: Dictated on workstation # [id number]
--- NOTE | 2019-11-10 14:59 | Anesthesia-General Post-Op ---
MAC Patient Condition Mental Status/LOC: Same as Preop Cardiovascular: Satisfactory Nausea/Vomiting: Absent Respiratory: Satisfactory Pain: Controlled Complications: Absent Post Op Complications Complications None Follow Up Care/Instructions Patient Instructions None needed. Anesthesiology Discharge Order Discharge Order Patient is doing well, no complaints, stable vital signs, no apparent adverse anesthesia problems. SAVANNAH RUDD DO Nov 10, 2019 14:58
--- NOTE | 2019-11-10 15:41 | Diagnostic Imaging Report ---
INDICATION: Port-A-Cath placement Intraoperative fluoroscopy used during Port-A-Cath placement in surgery. 2 seconds of fluoroscopy time was used. Fluoroscopic views demonstrate port with tip overlying the SVC. IMPRESSION: Intraoperative views demonstrate Port-A-Cath placement as above. Dictated by: Dictated on workstation # [id number]
--- NOTE | 2019-11-10 19:11 | OPERATIVE REPORT ---
DATE OF SERVICE: 11/10/2019 ATTENDING PRIMARY CARE PHYSICIAN: Haylee Piper DO PREOPERATIVE DIAGNOSIS: Myelodysplastic syndrome. POSTOPERATIVE DIAGNOSIS: Myelodysplastic syndrome. PROCEDURE: Placement of left subclavian Groshong implantable catheter under fluoroscopy. SURGEON: Elaine Smart MD CLIENT TECHNICAL SPECIALIST: Julian Brown APRN ANESTHESIA: Monitored anesthesia care. ESTIMATED BLOOD LOSS: Minimal. FINDINGS: Catheter tip at superior vena cava -- right atrial junction. DISPOSITION: The patient tolerated the procedure well. INDICATIONS: The patient is a 78-year-old male who was admitted a few weeks ago for pneumonia. During that admission, he was found to be severely thrombocytopenic. He was medically treated and transfuse; however, continued to be thrombocytopenic. He then underwent oncologic workup as a bone marrow biopsy was performed, which did show myelodysplastic syndrome. Since being diagnosed, he has been treated with chemotherapy and his platelet levels have improved. He will require a Groshong implantable catheter for frequent IV drugs as well as chemotherapy. DESCRIPTION OF PROCEDURE: The patient was brought to the operating room, laid supine on the table. After adequate IV pain and sedative medications and monitored anesthesia care, the chest and neck were prepped and draped in standard surgical fashion. A 1% lidocaine with epinephrine was then used to anesthetize the overlying skin in the left subclavian region. Left subclavian vein was then cannulated with drawing of venous blood. The guidewire was then inserted without any resistance under fluoroscopy. The cannulating needle removed and a skin incision made using a 15 blade. The dilator and sheath were then placed over the guidewire. The dilator and guidewire were then removed and the Groshong implantable catheter placed until the catheter tip was at the superior vena cava -- right atrial junction. The sheath was then removed. The inner wire within the catheter was then removed. Catheter cut down to size and the port placed onto the catheter. The chest reservoir was then created by extending the skin incision laterally and a plane between the subcutaneous fat and the anterior pectoralis fascia was then created using blunt dissection as well as electrocautery. Good hemostasis was observed. The port was placed into the chest reservoir and then sutured to the anterior pectoralis fascia using interrupted 3-0 Vicryl sutures. Subcutaneous tissue was then reapproximated using 3-0 Vicryl interrupted sutures and the skin was closed using 4-0 Monocryl running subcuticular suture. Wound was then cleaned and covered with Dermabond. The port was accessed for immediate use and covered with sterile gauze followed by Op-Site. We will get a post-procedure chest x-ray once confirmation of placement of the port may be used at any time. Job ID: [id number] DocumentID: [id number] Dictated Date: 11/10/2019 14:12:52 Ict Trainer Date: 11/10/2019 19:10:17 Dictated By: ELAINE SMART MD
== END 2019-11-10 15:50 | disposition home or self-care (01) ==
LOC: SDC 11:26
PROVIDERS: ATTEND Surgery
DX: D46.9 Myelodysplastic syndrome, unspecified (principal); G47.30 Sleep apnea, unspecified; I10 Essential (primary) hypertension; E78.00 Pure hypercholesterolemia, unspecified; E78.5 Hyperlipidemia, unspecified; I25.10 Atherosclerotic heart disease of native coronary artery without angina pectoris; G89.29 Other chronic pain; K21.9 Gastro-esophageal reflux disease without esophagitis; J43.9 Emphysema, unspecified; M48.061 Spinal stenosis, lumbar region without neurogenic claudication; M47.896 Other spondylosis, lumbar region; M79.7 Fibromyalgia; M81.0 Age-related osteoporosis without current pathological fracture; Z79.891 Long term (current) use of opiate analgesic; Z79.899 Other long term (current) drug therapy; Z87.891 Personal history of nicotine dependence; Z88.2 Allergy status to sulfonamides
CPT/HCPCS: 71045; 87081

== ENCOUNTER 2019-12-12 13:20 | Observation (INO) | payer MEDICARE, OTHER ==
[~2019-12-12] VITALS: Ht 177.8 cm; Wt 102.8 kg
[~2019-12-12 13:20] MED LIST changes: +AMLO5TAB9 PO; +FURO-124 PO; +HYDR15SO6 PO; +ONDA8TAB13 PO; +POTA10TA PO
[2019-12-12] MEDS ORDERED: NS IV 1000 ML 1,000 ML IV SCH (13:35)
--- NOTE | 2019-12-12 13:43 | ED General ---
General Chief Complaint: Dizziness/Syncope Stated Complaint: DIZZINESS History of Present Illness Date Seen by Provider: Dec 12, 2019 Time Seen by Provider: 13:25 Initial Comments 78 year male brought by EMS for weakness and dizziness. He finished his first round of chemo for myelodysplastic syndrome and was to start again today at 1300. He becomes dehydrated easily and required multiple PRBCs and platelets throughout the cycle. He has chronic weakness after an injury in his 50s. Patient has spoken to his family and he wishes to be a DNR. Patient reports he was standing up, shaving, he became extremely weak and dizzy. He last received a transfusion of blood on 12/01/19 and platelets on 11/24/19. No known COVID 19 exposure or risk. No fever or cough, he is homebound. Timing/Duration: 4-6 Hours Severity: Mild Associated Systoms: No Chest Pain, No Cough, No Diaphoresis, No Headaches; Loss of Appetite, Malaise; No Nausea/Vomiting, No Rash, No Seizure, No Shortness of Air, No Syncope; Weakness Allergies and Home Medications Allergies Coded Allergies: Sulfa (Sulfonamide Antibiotics) (Verified Allergy, Unknown, 11/09/19) Home Medications Albuterol Sulfate 18 Gm Hfa.aer.ad, 2 PUFF INH Q4H PRN for SHORTNESS OF BREATH, (Reported) Amlodipine Besylate 5 Mg Tablet, 5 MG PO DAILY PRN for IF BP >170, (Reported) Atorvastatin Calcium 40 Mg Tablet, 40 MG PO DAILY, (Reported) Baclofen 20 Mg Tablet, 20 MG PO BID PRN for SPASMS, (Reported) Cholecalciferol (Vitamin D3) 25 Mcg Capsule, 25 MCG PO DAILY, (Reported) Dexlansoprazole 60 Mg bp, 60 MG PO DAILY, (Reported) Docusate Sodium 100 Mg Capsule, 100 MG PO BID, (Reported) Duloxetine HCl 60 Mg Capsule., 60 MG PO DAILY Prescribed by: KENYETTA PIPER on 09/23/19 1439 Furosemide 40 Mg Tablet, 40 MG PO PRN, (Reported) Hydrocodone Bit/Acetaminophen 1 Each Tablet, 1 TAB PO Q4H PRN for PAIN-MODERATE (5-7), (Reported) Hydrocodone Bit/Acetaminophen 15 Ml Solution, 15 ML PO Q4H Prescribed by: MERCEDES SMART on 11/10/19 1146 Ipratropium [place] 15 Ml Naspr, 2 SPRAYS NS DAILY, (Reported) Ipratropium [place] 30 Ml [place], 30 ML NS for PRN, (Reported) Metoprolol Succinate 100 Mg Tab.er.24h, 100 MG PO DAILY, (Reported) Montelukast Sodium 10 Mg Tablet, 10 MG PO HS, (Reported) Ondansetron 8 Mg Tab.rapdis, 8 MG PO Q8H PRN for NAUSEA/VOMITING-1ST LINE, (Reported) Potassium Chloride 10 Meq Tablet.er, 10 MEQ PO DAILY PRN for WITH LASIX, (Reported) Patient Home Medication List Home Medication List Reviewed: Yes Review of Systems Review of Systems Constitutional: see HPI, malaise, weakness Respiratory: no symptoms reported, see HPI; No cough Cardiovascular: no symptoms reported, see HPI; No chest pain Gastrointestinal: No abdominal pain, No constipation, No dysphagia, No heartburn; loss of appetite; No nausea All Other Systems Reviewed Negative Unless Noted: Yes Past Bzvnpxw-Bpkgvx-Dctyun Hx Past Med/Social Hx: Reviewed Nursing Past Med/Soc Hx Patient Social History Type Used: Cigarettes Former Smoker, Quit: Aug 31, 2012 2nd Hand Smoke Exposure: No Recent Hopitalizations: No Immunizations Up To Date Tetanus Booster (TDap): More than 5yrs PED Vaccines UTD: No Date of Pneumonia Vaccine: May 31, 2014 Date of Influenza Vaccine: May 31, 2019 Seasonal Allergies Seasonal Allergies: Yes Past Medical History Surgeries: Yes (CATARACTS) Cardiac, Coronary Stent, Eye Surgery, Orthopedic, Vascular Surgery Respiratory: Yes (COPD) Pneumonia, COPD Currently Using CPAP: No Currently Using BIPAP: No Cardiac: Yes (STENTS IN HEART, CAROTID ARTERY, LEGS) Coronary Artery Disease, High Cholesterol, Hypertension, Peripheral Vascular Neurological: No Reproductive Disorders: No Sexually Transmitted Disease: No HIV/AIDS: No Genitourinary: Yes Prostate Problems Gastrointestinal: Yes (ABDOMINAL PAIN AT TIMES) Gastroesophageal Reflux, Diverticulosis, Hemorrhoids Musculoskeletal: Yes (ARTHRITIS "ALL OVER") Degenerate Disk Disease, Arthritis, Chronic Back Pain Endocrine: No HEENT: No Loss of Vision: Denies Hearing Impairment: Denies Cancer: No Psychosocial: Yes Depression Integumentary: No Blood Disorders: No Adverse Reaction/Blood Tranf: No Family Medical History Patient reports no known family medical history. No Pertinent Family Hx Physical Exam Vital Signs Vital Signs - First Documented 12/12/19 13:20 Temp 36.4 Pulse 73 Resp 16 B/P (MAP) 105/47 (66) Pulse Ox 100 O2 Delivery Room Air Capillary Refill : Height, Weight, BMI Height: 5'10.00" Weight: 245lbs. 3.0oz. 111.872118oz; 32.65 BMI Method:Stated General Appearance: No Apparent Distress, WD/WN Eyes: Bilateral Eye Normal Inspection, Bilateral Eye PERRL, Bilateral Eye EOMI HEENT: PERRL/EOMI, TMs Normal, Normal ENT Inspection, Pharynx Normal, Other (Oral mucosa pale and moist) Neck: Full Range of Motion, Normal Inspection, Non Tender, Supple Respiratory: Chest Non Tender, Lungs Clear, Normal Breath Sounds, Other (port to left chest wall) Cardiovascular: Regular Rate, Rhythm, No Murmur, Normal Peripheral Pulses Gastrointestinal: Normal Bowel Sounds, Non Tender, Soft; No Distended, No Rebound, No Tenderness Back: Normal Inspection, No CVA Tenderness, No Vertebral Tenderness Extremity: Normal Capillary Refill, Normal Inspection, Normal Range of Motion, Non Tender, No Pedal Edema Neurologic/Psychiatric: Alert, Oriented x3, No Motor/Sensory Deficits, Normal Mood/Affect Skin: Warm/Dry, Pallor; No Rash Focused Exam Lactate Level 12/12/19 13:25: Lactic Acid Level 2.12*H 12/12/19 16:05: Lactic Acid Level Laboratory Tests Test 12/12/19 13:25 12/12/19 16:05 Lactic Acid Level 2.12 MMOL/L (0.50-2.00) *H Progress/Results/Core Measures Suspected Sepsis SIRS Temperature: Pulse: Respiratory Rate: Laboratory Tests 12/12/19 13:25: White Blood Count 0.8*L Blood Pressure / Mean: 12/12/19 13:25: Lactic Acid Level 2.12*H 12/12/19 16:05: Laboratory Tests 12/12/19 13:25: Creatinine 0.79, INR Comment 1.0, Platelet Count 67L, Total Bilirubin 0.8 Results/Orders Lab Results Laboratory Tests Test 12/12/19 13:25 12/12/19 16:05 Range/Units White Blood Count 0.8 *L 4.3-11.0 10^3/uL Red Blood Count 2.19 L 4.35-5.85 10^6/uL Hemoglobin 6.9 *L 13.3-17.7 G/DL Hematocrit 21 L 40-54 % Mean Corpuscular Volume 94 80-99 FL Mean Corpuscular Hemoglobin 32 25-34 PG Mean Corpuscular Hemoglobin Concent 34 32-36 G/DL Red Cell Distribution Width 20.1 H 10.0-14.5 % Platelet Count 67 L 130-400 10^3/uL Mean Platelet Volume 9.6 7.4-10.4 FL Neutrophils (%) (Auto) 16 L 42-75 % Lymphocytes (%) (Auto) 76 H 12-44 % Monocytes (%) (Auto) 5 0-12 % Eosinophils (%) (Auto) 1 0-10 % Basophils (%) (Auto) 1 0-10 % Neutrophils # (Auto) 0.1 L 1.8-7.8 X 10^3 Lymphocytes # (Auto) 0.6 L 1.0-4.0 X 10^3 Monocytes # (Auto) 0.0 0.0-1.0 X 10^3 Eosinophils # (Auto) 0.0 0.0-0.3 10^3/uL Basophils # (Auto) 0.0 0.0-0.1 10^3/uL Neutrophils % (Manual) 8 % Lymphocytes % (Manual) 86 % Monocytes % (Manual) 6 % Eosinophils % (Manual) 0 % Basophils % (Manual) 0 % Band Neutrophils 0 % Anisocytosis MARKED Prothrombin Time 13.5 12.2-14.7 SEC INR Comment 1.0 0.8-1.4 Activated Partial Thromboplast Time 44 H 24-35 SEC Sodium Level 138 135-145 MMOL/L Potassium Level 4.2 3.6-5.0 MMOL/L Chloride Level 105 98-107 MMOL/L Carbon Dioxide Level 24 21-32 MMOL/L Anion Gap 9 5-14 MMOL/L Blood Urea Nitrogen 11 7-18 MG/DL Creatinine 0.79 0.60-1.30 MG/DL Estimat Glomerular Filtration Rate > 60 BUN/Creatinine Ratio 14 Glucose Level 124 H 70-105 MG/DL Lactic Acid Level 2.12 *H 0.50-2.00 MMOL/L Calcium Level 8.4 L 8.5-10.1 MG/DL Corrected Calcium 8.9 8.5-10.1 MG/DL Total Bilirubin 0.8 0.1-1.0 MG/DL Aspartate Amino Transf (AST/SGOT) 10 5-34 U/L Alanine Aminotransferase (ALT/SGPT) 9 0-55 U/L Alkaline Phosphatase 74 40-136 U/L Total Protein 6.2 L 6.4-8.2 GM/DL Albumin 3.4 3.2-4.5 GM/DL My Orders Orders - REJI LOPEZ COMBER SETTER Cbc With Automated Diff (12/12/19 13:35) Comprehensive Metabolic Panel (12/12/19 13:35) Blood Culture (12/12/19 13:35) Sputum Culture (12/12/19 13:35) Protime With Inr (12/12/19:35) Partial Thromboplastin Time (12/12/19 13:35) Chest 1 View, Ap/Pa Only (12/12/19 13:35) Ed Iv/Invasive Line Start (12/12/19 13:35) Ns Iv 1000 Ml (Sodium Chloride 0.9%) (12/12/19 13:35) Lactic Acid Analyzer (12/12/19 13:35) Ua Culture If Indicated (12/12/19 13:35) Manual Differential (12/12/19 13:25) Red Cells Leukocytes Reduced (12/12/19 14:50) Type And Screen (12/12/19 14:50) Vital Signs/I&O 12/12/19 13:20 Temp 36.4 Pulse 73 Resp 16 B/P (MAP) 105/47 (66) Pulse Ox 100 O2 Delivery Room Air Capillary Refill : Progress Note : Time: 13:25 Progress Note Patient seen and evaluated, will obtain labs. Cancer Center notified that patient is here. 1400 Blood pressure improved with IVF, 120-130/70s. Pulse 80s. No pain or n/v. Patient concerned with weakness and trying to return home. [address] [place], agrees with plan to admit and give 1 Unit PRBC. [address] Piper, agreeable to admission. 1545 Patient has been stable, no complaints at this time. Attempted to stand and obtain UA, no urine output at this time. Diagnostic Imaging Diagonstic Imaging: Xray Plain Films/CT/US/NM/MRI: chest Comments NAME: STEPHANY TIJERINA [facility] REC#: [id number] PT STATUS: REG ER : 1940 PHYSICIAN: REJI LOPEZ ADMIT DATE: 12/12/19/ER Draft Date of Exam:12/12/19 CHEST 1 VIEW, AP/PA ONLY EXAMINATION: Chest 1 view HISTORY: Dizziness and nausea COMPARISON: None available. FINDINGS: The lungs are clear without edema or pneumonia. No pleural effusion or pneumothorax. Heart size is normal. There are old right-sided rib fractures. Left port catheter tip terminates in the superior vena cava. Spinal stimulator is present. IMPRESSION: 1. Clear lungs. Dictated on workstation # [id number] Dict: 12/12/19 1409 Trans: 12/12/19 1415 CVB [id number] Interpreted by: DON COX MD Electronically signed by: Reviewed: Reviewed by Me Departure Impression Primary Impression: Pancytopenia Additional Impression: Myelodysplastic syndrome Disposition: ADMITTED INPATIENT Condition: Stable Admissions Decision to Admit Reason: Admit from ER (General) Decision to Admit/Date: Dec 12, 2019 Time/Decision to Admit Time: 14:30 Departure-Patient Inst. Referrals: KENYETTA PIPER DO (PCP/Family) Primary Care Physician Copy Copies To 1: CRISTINE NAPOLES; KENYETTA PIPER AMY ARNP Dec 12, 2019 13:43
[2019-12-12 13:48] LABS: BASOPHILS % (AUTO) 1 % (0-10); EOSINOPHILS % (AUTO) 1 % (0-10); HEMATOCRIT 21 % (40-54); LYMPHOCYTES # (AUTO) 0.6 X 10^3 (1.0-4.0); LYMPHOCYTES % (AUTO) 76 % (12-44); MEAN CORPUSCULAR HEMOGLOBIN 32 PG (25-34); MEAN CORPUSCULAR HGB CONC 34 G/DL (32-36); MEAN CORPUSCULAR VOLUME 94 FL (80-99); MEAN PLATELET VOLUME 9.6 FL (7.4-10.4); MONOCYTES % (AUTO) 5 % (0-12); NEUTROPHILS # (AUTO) 0.1 X 10^3 (1.8-7.8); NEUTROPHILS % (AUTO) 16 % (42-75); PLATELET COUNT 67 10^3/uL (130-400); PROTHROMBIN TIME PATIENT 13.5 SEC (12.2-14.7); RED CELL DISTRIBUTION WIDTH 20.1 % (10.0-14.5)
[2019-12-12 13:50] LABS: HEMOGLOBIN 6.9 G/DL (13.3-17.7); WHITE BLOOD COUNT 0.8 10^3/uL (4.3-11.0)
[2019-12-12 13:56] LABS: ALBUMIN 3.4 GM/DL (3.2-4.5)
[2019-12-12 13:57] LABS: CHLORIDE 105 MMOL/L (98-107); POTASSIUM 4.2 MMOL/L (3.6-5.0); SODIUM 138 MMOL/L (135-145)
[2019-12-12 13:58] LABS: CALCIUM 8.4 MG/DL (8.5-10.1)
[2019-12-12 13:59] LABS: GLUCOSE 124 MG/DL (70-105); TOTAL PROTEIN 6.2 GM/DL (6.4-8.2)
[2019-12-12 14:00] LABS: CARBON DIOXIDE 24 MMOL/L (21-32)
[2019-12-12 14:01] LABS: BILIRUBIN,TOTAL 0.8 MG/DL (0.1-1.0)
[2019-12-12 14:02] LABS: ALKALINE PHOSPHATASE 74 U/L (40-136); CREATININE SERUM 0.79 MG/DL (0.60-1.30); GFR ESTIMATED > 60
[2019-12-12 14:04] LABS: BUN/CREATININE RATIO 14
[2019-12-12 14:05] LABS: ALANINE AMINOTRANSFERASE 9 U/L (0-55)
--- NOTE | 2019-12-12 14:16 | Diagnostic Imaging Report ---
EXAMINATION: Chest 1 view HISTORY: Dizziness and nausea COMPARISON: None available. FINDINGS: The lungs are clear without edema or pneumonia. No pleural effusion or pneumothorax. Heart size is normal. There are old right-sided rib fractures. Left port catheter tip terminates in the superior vena cava. Spinal stimulator is present. IMPRESSION: 1. Clear lungs. Dictated by: Dictated on workstation # [id number]
[2019-12-12 15:04] LABS: ANISOCYTOSIS MARKED; BAND NEUTROPHILS 0 %; BASOPHILS % (MANUAL) 0 %; EOSINOPHILS % (MANUAL) 0 %; LYMPHOCYTES % (MANUAL) 86 %; MONOCYTES % (MANUAL) 6 %; NEUTROPHILS % (MANUAL) 8 %
--- NOTE | 2019-12-12 16:40 | NUR ---
PT TO ROOM 417 FROM ED. ORIENTED TO ROOM/CALL LIGHT.
[2019-12-12] MEDS ORDERED: NS IV 500 ML 500 ML IV SCH (16:45)
[2019-12-12] MEDS ORDERED: CATHETER FLUSH 10 ML SYR IV PRN (16:45)
[2019-12-12] MEDS ORDERED: ACETAMINOPHEN 325 MG TABLET PO PRN (16:45)
[2019-12-12] MEDS ORDERED: ONDANSETRON 4 MG/2 ML (SDV) Z0FRAN IV PRN (16:45)
[2019-12-12 16:48] VITALS: BP 151/67
[2019-12-12] MEDS ORDERED: PANTOPRAZOLE 40 MG (PROTONIX) VIAL IV NR (17:30)
[2019-12-12] MEDS ORDERED: PATIENT MAY USE OWN MEDS, ALL MC SCH (17:30)
[2019-12-12] MEDS ORDERED: BACLOFEN 10 MG (LIORESAL) TAB PO PRN (17:30)
--- NOTE | 2019-12-12 17:31 | History & Physical ---
History of Present Illness History of Present Illness Reason for visit/HPI This is a 78 year old male with a history of myelodysplastic syndrome who was brought to the emergency room after an episode of weakness and dizziness with near-syncope. He stated he has not been able to eat and drink. He has been having to have frequent blood and platelet transfusions at the cancer center. He did have nausea but only had dry heaves. He was found to be hypotensive with dehydration as well as pancytopenic with a hemoglobin down to 6.9. He will be admitted for blood transfusion as well as IVFs and observation. Date of Admission Dec 12, 2019 at 15:00 Date Seen by a Provider: Dec 12, 2019 Time Seen by a Provider: 17:23 I consulted on this patient on 12/12/19 17:22 Attending Physician Haylee Piper DO Admitting Physician Haylee Piper DO Consult Allergies and Home Medications Allergies Coded Allergies: Sulfa (Sulfonamide Antibiotics) (Verified Allergy, Unknown, 11/09/19) Home Medications Albuterol Sulfate 18 Gm Hfa.aer.ad, 2 PUFF INH Q4H PRN for SHORTNESS OF BREATH, (Reported) Amlodipine Besylate 5 Mg Tablet, 5 MG PO DAILY PRN for IF BP >170, (Reported) Atorvastatin Calcium 40 Mg Tablet, 40 MG PO DAILY, (Reported) Baclofen 20 Mg Tablet, 20 MG PO BID PRN for SPASMS, (Reported) Cholecalciferol (Vitamin D3) 25 Mcg Capsule, 25 MCG PO DAILY, (Reported) Dexlansoprazole 60 Mg Cap.bp, 60 MG PO DAILY, (Reported) Docusate Sodium 100 Mg Capsule, 100 MG PO BID, (Reported) Duloxetine HCl 60 Mg Capsule.dr, 60 MG PO DAILY Prescribed by: HAYLEE PIPER on 09/23/19 1439 Furosemide 40 Mg Tablet, 40 MG PO PRN, (Reported) Hydrocodone Bit/Acetaminophen 1 Each Tablet, 1 TAB PO Q4H PRN for PAIN-MODERATE (5-7), (Reported) Hydrocodone Bit/Acetaminophen 15 Ml Solution, 15 ML PO Q4H Prescribed by: MERCEDES SMART on 11/10/19 1146 Ipratropium [place] 15 Ml Naspr, 2 SPRAYS NS DAILY, (Reported) Ipratropium [place] 30 Ml [place], 30 ML NS for PRN, (Reported) Metoprolol Succinate 100 Mg Tab.er.24h, 100 MG PO DAILY, (Reported) Montelukast Sodium 10 Mg Tablet, 10 MG PO HS, (Reported) Ondansetron 8 Mg Tab.rapdis, 8 MG PO Q8H PRN for NAUSEA/VOMITING-1ST LINE, (Reported) Potassium Chloride 10 Meq Tablet.er, 10 MEQ PO DAILY PRN for WITH LASIX, (Reported) Patient Home Medication List Home Medication List Reviewed: Yes Past Gppxioa-Tlegsm-Mrclmw Hx Past Med/Social Hx: Reviewed Nursing Past Med/Soc Hx Patient Social History Alcohol Use: Denies Use Recreational Drug Use: No Smoking Status: Former Smoker Former Smoker, Quit: Aug 31, 2012 Type Used: Cigarettes 2nd Hand Smoke Exposure: No Recent Foreign Travel: No Contact w/other who traveled: No Recent Hopitalizations: No Recent Infectious Disease Expo: No Immunizations Up To Date Tetanus Booster (TDap): More than 5yrs Pediatric: No Date of Pneumonia Vaccine: May 31, 2014 Date of Influenza Vaccine: May 31, 2019 Seasonal Allergies Seasonal Allergies: Yes Past Medical History Surgeries: Cardiac, Coronary Stent, Eye Surgery, Orthopedic, Vascular Surgery Respiratory: COPD Currently Using CPAP: No Currently Using BIPAP: No Cardiac: Coronary Artery Disease, High Cholesterol, Hypertension, Peripheral Vascular Reproductive: No Sexually Transmitted Disease: No HIV/AIDS: No Genitourinary: Prostate Problems Gastrointestinal: Gastroesophageal Reflux, Diverticulosis, Hemorrhoids Musculoskeletal: Degenerate Disk Disease, Arthritis, Chronic Back Pain Loss of Vision: Denies Hearing Impairment: Denies Did You Recieve Any Treatments: Yes What Type of Treatment Did You: Chemotherapy Psychosocial: Depression History of Blood Disorders: No Adverse Reaction to Blood Humphreys: No Family History Patient reports no known family medical history. No Pertinent Family Hx Review of Systems Constitutional: weakness EENTM: No see HPI, No no symptoms reported, No ear discharge, No hearing loss, No ear pain, No blurred vision, No double vision, No eye pain, No tearing, No vision loss, No dental problems, No hoarseness, No mouth pain, No mouth swelling, No epistaxis, No nose congestion, No nose pain, No throat pain, No throat swelling, No other Respiratory: cough, dyspnea on exertion, short of breath Cardiovascular: No no symptoms reported, No see HPI, No chest pain, No edema, No Hx of Intervention, No palpitations, No syncope, No vascular heart diseas, No other Gastrointestinal: constipation, loss of appetite, nausea Genitourinary: decreased output Musculoskeletal: back pain, muscle weakness Skin: No no symptoms reported, No see HPI, No change in color, No change in hair/nails, No dryness, No hx of skin cancer, No lesions, No lumps, No pruritus, No rash, No other Psychiatric/Neurological: Depressed (getting more bitter), Numbness, Weakness Physical Exam Vital Signs Vital Signs - First Documented 12/12/19 13:20 Temp 36.4 Pulse 73 Resp 16 B/P (MAP) 105/47 (66) Pulse Ox 100 O2 Delivery Room Air Capillary Refill : Less Than 3 Seconds Height, Weight, BMI Height: 5'10.00" Weight: 245lbs. 3.0oz. [id number]; 32.51 BMI Method:Stated General Appearance: No Apparent Distress HEENT: Other (dry MM) Neck: Supple Respiratory: Lungs Clear Cardiovascular: Regular Rate, Rhythm, Systolic Murmur Gastrointestinal: Normal Bowel Sounds, Non Tender, Soft Rectal: Deferred Back: No CVA Tenderness Extremity: Non Tender, No Calf Tenderness, No Pedal Edema Neurologic/Psychiatric: Alert, Oriented x3 Skin: Warm/Dry, Pallor Comments Laboratory Tests 12/12/19 13:25: White Blood Count 0.8*L, Red Blood Count 2.19L, Hemoglobin 6.9*L, Hematocrit 21L , Mean Corpuscular Volume 94, Mean Corpuscular Hemoglobin 32, Mean Corpuscular Hemoglobin Concent 34, Red Cell Distribution Width 20.1H, Platelet Count 67L, Mean Platelet Volume 9.6, Neutrophils (%) (Auto) 16L, Lymphocytes (%) (Auto) 76H , Monocytes (%) (Auto) 5, Eosinophils (%) (Auto) 1, Basophils (%) (Auto) 1, Neutrophils # (Auto) 0.1L, Lymphocytes # (Auto) 0.6L, Monocytes # (Auto) 0.0, Eosinophils # (Auto) 0.0, Basophils # (Auto) 0.0, Neutrophils % (Manual) 8, Lymphocytes % (Manual) 86, Monocytes % (Manual) 6, Eosinophils % (Manual) 0, Basophils % (Manual) 0, Band Neutrophils 0, Anisocytosis MARKED, Prothrombin Time 13.5, INR Comment 1.0, Activated Partial Thromboplast Time 44H, Sodium Level 138, Potassium Level 4.2, Chloride Level 105, Carbon Dioxide Level 24, Anion Gap 9, Blood Urea Nitrogen 11, Creatinine 0.79, Estimat Glomerular Filtration Rate > 60, BUN/Creatinine Ratio 14, Glucose Level 124H, Lactic Acid Level 2.12*H, Calcium Level 8.4L, Corrected Calcium 8.9, Total Bilirubin 0.8, Aspartate Amino Transf (AST/SGOT) 10, Alanine Aminotransferase (ALT/SGPT) 9, Alkaline Phosphatase 74, Total Protein 6.2L, Albumin 3.4 12/12/19 16:05: Lactic Acid Level 1.49 Assessment/Plan Assessment and Plan 1. Acute Vertigo/Dizziness with Near-Syncope--likely from dehydration/anemia 2. Myelodysplastic Syndrome with Chronic Pancytopenia and Hgb down to 6.9--give 1u pRBCs, oncology consulted 3. COPD--has not been using inhalers or oxygen 4. Hypertension/History of CAD--hold BP meds and monitor BP level 5. 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 Dyspepsia/Anorexia--IV protonix and zofran IV prn 7. Constipation--took a laxative so does not want any treatment while in hospital Admission Diagnosis Admission Status: Observation HAYLEE PIPER DO Dec 12, 2019 17:30
[2019-12-12] MEDS: NS IV 1000 ML 1,000 ML IV SCH (17:55)
[2019-12-12 18:00] VITALS: BP 158/67
[2019-12-12 18:00] LABS: BILIRUBIN,URINE NEGATIVE (NEGATIVE); CLARITY,URINE CLEAR; COLOR,URINE YELLOW; GLUCOSE, URINE (UA) NEGATIVE (NEGATIVE); KETONES,URINE NEGATIVE (NEGATIVE); LEUKOCYTE ESTERASE ,URINE NEGATIVE (NEGATIVE); NITRITE,URINE NEGATIVE (NEGATIVE); PROTEIN,URINE NEGATIVE (NEGATIVE)
[2019-12-12 18:10] LABS: BACTERIA,URINE NEGATIVE /HPF; RBC,URINE RARE /HPF; SQUAMOUS EPITHELIAL CELL,UR RARE /HPF; WBC,URINE RARE /HPF
[2019-12-12 18:11] LABS: URINE OTHER MOD SPERM /HPF
[2019-12-12 18:24] VITALS: BP 139/62
[2019-12-12 20:16] VITALS: BP 125/64
[2019-12-12 21:05] VITALS: BP 123/57
[2019-12-12 23:20] VITALS: BP 162/67
[2019-12-13 04:00] VITALS: BP 124/60
[2019-12-13 05:15] LABS: BASOPHILS % (AUTO) 1 % (0-10); EOSINOPHILS % (AUTO) 2 % (0-10); HEMATOCRIT 22 % (40-54); HEMOGLOBIN 7.4 G/DL (13.3-17.7); LYMPHOCYTES # (AUTO) 0.8 X 10^3 (1.0-4.0); LYMPHOCYTES % (AUTO) 76 % (12-44); MEAN CORPUSCULAR HEMOGLOBIN 32 PG (25-34); MEAN CORPUSCULAR HGB CONC 34 G/DL (32-36); MEAN CORPUSCULAR VOLUME 94 FL (80-99); MEAN PLATELET VOLUME 9.2 FL (7.4-10.4); MONOCYTES # (AUTO) 0.1 X 10^3 (0.0-1.0); MONOCYTES % (AUTO) 6 % (0-12); NEUTROPHILS # (AUTO) 0.2 X 10^3 (1.8-7.8); NEUTROPHILS % (AUTO) 16 % (42-75); PLATELET COUNT 56 10^3/uL (130-400); RED CELL DISTRIBUTION WIDTH 18.7 % (10.0-14.5)
[2019-12-13 05:19] LABS: ALBUMIN 3.1 GM/DL (3.2-4.5); CHLORIDE 108 MMOL/L (98-107); POTASSIUM 4.1 MMOL/L (3.6-5.0); SODIUM 140 MMOL/L (135-145)
[2019-12-13 05:20] LABS: CALCIUM 7.6 MG/DL (8.5-10.1)
[2019-12-13 05:21] LABS: GLUCOSE 103 MG/DL (70-105)
[2019-12-13 05:22] LABS: TOTAL PROTEIN 5.5 GM/DL (6.4-8.2)
[2019-12-13 05:23] LABS: BILIRUBIN,TOTAL 1.1 MG/DL (0.1-1.0); CARBON DIOXIDE 21 MMOL/L (21-32)
[2019-12-13 05:25] LABS: ALKALINE PHOSPHATASE 72 U/L (40-136); CREATININE SERUM 0.65 MG/DL (0.60-1.30); GFR ESTIMATED > 60
[2019-12-13 05:26] LABS: BUN/CREATININE RATIO 14
[2019-12-13 05:28] LABS: ALANINE AMINOTRANSFERASE 11 U/L (0-55)
[2019-12-13] MEDS: NS IV 1000 ML 1,000 ML IV SCH (06:10)
[2019-12-13 08:00] VITALS: BP 131/56
[2019-12-13] MEDS ORDERED: PANTOPRAZOLE 40 MG (PROTONIX) VIAL IV SCH (09:00)
[2019-12-13] MEDS ORDERED: NS IV 500 ML 500 ML IV SCH (09:15)
[2019-12-13 09:46] VITALS: BP 135/63
[2019-12-13 10:07] VITALS: BP 136/71
--- NOTE | 2019-12-13 10:45 | Physical Therapy Evaluation ---
PT Evaluation-General Medical Diagnosis Admission Date Dec 12, 2019 at 15:00 Medical Diagnosis: anemia/weakness/panocytopenia Onset Date: Dec 12, 2019 Therapy Diagnosis Therapy Diagnosis: debility Height/Weight Height (Feet): 5 Height (Inches): 10.00 Weight (Pounds): 245 Weight (Ounces): 3.0 Precautions Precautions/Isolations: Fall Prevention, Standard Precautions Weight Bear Status Right Lower Extremity: Right Weight Bearing/Tolerated Left Lower Extremity: Left Weight Bearing/Tolerated Referral Physician: Feliz Reason for Referral: Evaluation/Treatment Medical History Pertinent Medical History: CAD, COPD, HTN, PVD Current History ER with c/o dizziness/finished first round of chemo for myelodysplasia Reviewed History: Yes Social History Home: Single Level Current Living Status: Spouse Prior Prior Level of Function SCALE: Activities may be completed with or without assistive devices. 4-Hipqfuesjs-hpgnnai completes the activity by him/herself with no assistance from a helper. 5-Set-up or Clean-up Assistance-helper sets up or cleans up; patient completes activity. Eustace assists only prior to or following the activity. 4-Supervision or Touching Assistance-helper provides verbal cues and/or touching/steadying and/or contact guard assistance as patient completes activity. Assistance may be provided throughout the activity or intermittently. 3-Partial/Moderate Assistance-helper does LESS THAN HALF the effort. Eustace lifts, holds or supports trunk or limbs, but provides less than half the effort. 2-Substantial/Maximal Assistance-helper does MORE THAN HALF the effort. Eustace lifts or holds trunk or limbs and provides more than half the effort. 1-Ezmdwrrbs-vmtokb does ALL the effort. Patient does none of the effort to com plete the activity. Or, the assistance of 2 or more helpers is required for the patient to complete the activity. If activity was not attempted, code reason: 7-Patient Refused. 9-Not Applicable-not attempted and the patient did not perform the activity before the current illness, exacerbation or injury. 10-Not Attempted due to Environmental Limitations-(lack of equipment, weather restraints, etc.). 88-Not Attempted due to Medical Conditions or Safety Concerns. Bed Mobility: 6 Transfers (B,C,W/C): 6 Gait: 6 Indoor Mobility (Ambulation): Independent Prior Devices Use: Walker PT Evaluation-Current Subjective Patient agrees to PT. Pain Numeric Pain Scale: 0-No Pain Location: No Pain Reported Objective Patient Orientation: Normal For Age Attachments: IV ROM/Strength ROM Lower Extremities bilateral LE WFL Strength Lower Extremities left LE 4-/5 grossly/right LE 4/5 grossly Integumentary/Posture Integumentary refer to nursing notes Bowel Incontinence: No Bladder Incontinence: No Posture WFL Neuromuscular (Tone, Coordination, Reflexes) grossly intact Sensory Vision: Functional Hearing: Functional Sensation Right Lower Extremit: Impaired Sensation Left Lower Extremity: Impaired Transfers Roll Left to Right (QC): 5 Sit to Lying (QC): 5 Lying to Sitting/Side of Bed(Q: 5 Sit to Stand (QC): 5 Chair/Quc-uh-Bhobk Xfer(QC): 5 Gait Does the Patient Walk?: Yes Mode of Locomotion: Walk Anticipated Mode of Locomotion: Walk Walk 10 feet (QC): 5 Walk 50 ft with 2 Turns(QC): 5 Walk 150 ft (QC): 5 Distance: 350' Gait Assistive Device: FWW Comments/Gait Description safe and functional with no deviation Balance Sitting Static: Normal Sitting Dynamic: Normal Standing Static: Normal Standing Dynamic: Normal Assessment/Needs 78 y.o. male, will be seen short term by skilled therapy to address functional strength and mobility to ensure safe return to home at maximum LOF. Rehab Potential: Fair PT Automatic Trimming Sewer Goals Automatic Trimming Sewer Goals PT Automatic Trimming Sewer Goals Time Frame: Dec 24, 2019 Roll Left & Right (QC): 6 Sit to Lying (QC): 6 Lying-Sitting on Side/Bed(QC): 6 Sit to Stand (QC): 6 Chair/Cgz-xw-Cyfgq Xfer(QC): 6 Toilet Transfer (QC): 6 Does the Patient Walk: Yes Walk 10 feet (QC): 6 Walk 50ft with 2 Turns (QC): 6 Walk 150 ft (QC): 6 PT Plan Treatment/Plan Treatment Plan: Continue Plan of Care Treatment Plan: Education, Functional Activity [place], Functional Strength, Gait, Safety, Therapeutic Exercise Treatment Duration: Dec 24, 2019 Frequency: 6 times per week Estimated Hrs Per Day: .25 hour per day Patient and/or Family Agrees t: Yes Time/GCodes Time In: 810 Time Out: 826 Total Billed Treatment Time: 16 Total Billed Treatment 1 visit EVMod 16 min LYNN ARROYO PT Dec 13, 2019 10:45
[2019-12-13 11:38] VITALS: BP 140/73
[2019-12-13 12:00] VITALS: BP 130/46
--- NOTE | 2019-12-13 13:19 | NUR ---
"RD ASSESSMENT PMHx: myelodysplastic syndrome; COPD; CAD; hypercholesterolemia; HTN; GERD; diverticulosis PT INTERACTION: Pt was awake and pleasant during dietary consult for MST score. Pt states current appetite is poor and has been for the last 2-3 months. Note avg PO intake 63% x2meal, per chart review. Pt states following a regular diet at home and has no issues with chewing/swallowing food. Pt states some recent issues with nausea and constipation, and that his last BM was 12/12. Note pt not currently on bowel regimen per chart review. Pt states recent 20# wt loss x2-3mon. Note recent 18# wt loss x2mon, per chart review. This is significant wt loss at 7.4% x2mon. Upon visual exam, pt appears to be adequately nourished with no visible signs of muscle/fat wasting, and a BMI of 32.5. Given poor PO intake and significant wt loss, pt meets criteria for malnutrition per ASPEN guidelines. ABNORMAL NUTRITION-RELATED LAB VALUES LOW: Ca 7.6; Pro 5.5; alb 3.1 HIGH: Cl 108; bili 1.1 Est. kcal needs: 5945-5199 kcal | 20-25 kcal/kg Est. Pro needs: 103-123 g Pro | 1.0-1.2 g Pro/kg PES STATEMENT: Inadequate oral intake (NI-2.1) related to loss of appetite (x2-3mon) | nausea | constipation as evidenced by pt interview | avg PO intake 63% x2meal INTERVENTION: Continue with current diet order of Regular diet. Continue with current supplementation order of Ensure Enlive (lisa) with meals TID, for increased kcal intake. Provides 350 kcal and 13 g Pro per serving. Encouraged pt to eat when able. Will continue to follow and reassess as pt needs, intake, and status change. MONITOR/EVALUATE: PO Intake; Plan of Care; Hydration Status; Weight Status; Lab Values Pro Duff, MS, RD, LD"
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
--- NOTE | 2019-12-13 16:02 | Discharge Summary ---
Diagnosis/Chief Complaint Date of Admission Dec 12, 2019 at 15:00 Date of Discharge Dec 13, 2019 at 14:01 Discharge Date: Dec 13, 2019 Discharge Diagnosis 1. Acute Vertigo/Dizziness with Near-Syncope--likely from dehydration/anemia, improved 2. Myelodysplastic Syndrome with Chronic Pancytopenia and Hgb down to 6.9--S/P blood transfusion x 2 units 3. COPD--stable, has not been using inhalers or oxygen 4. Hypertension/History of CAD--stable 5. 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 Dyspepsia/Anorexia--stable 7. Constipation--deferred meds during hospital stay Reason Hospital Visit This is a 78 year old male with a history of myelodysplastic syndrome who was brought to the emergency room after an episode of weakness and dizziness with near-syncope. He stated he has not been able to eat and drink. He has been having to have frequent blood and platelet transfusions at the cancer center. He did have nausea but only had dry heaves. He was found to be hypotensive with dehydration as well as pancytopenic with a hemoglobin down to 6.9. He will be admitted for blood transfusion as well as IVFs and observation. Discharge Summary Hospital Course Was the Problem List Reviewed?: Yes Hospital Course This is a 78 year old male with a history of myelodysplastic syndrome who was brought to the emergency room after an episode of weakness and dizziness with near-syncope. He stated he has not been able to eat and drink. He has been having to have frequent blood and platelet transfusions at the cancer center. He did have nausea but only had dry heaves. He was found to be hypotensive with dehydration as well as pancytopenic with a hemoglobin down to 6.9. He will be admitted for blood transfusion as well as IVFs and observation. He was given a 1 liter bolus of NS in the emergency room then was continued on IVFs at 75cc/hr after admit. He was given 1 unit of pRBCs on admit and his hemoglobin was 7.3 the following morning so he was transfused another unit of pRBCs on the day of discharge. After the IVFs and 2units of blood he was feeling better. His dizziness was resolved and he had been up ambulating with PT with no issues. He was anxious to go home and had been seen by Dr. Wynne with a plan to repeat his bloodwork and resume chemotherapy in 6 days. Labs Laboratory Tests 12/12/19 13:25: White Blood Count 0.8*L, Red Blood Count 2.19L, Hemoglobin 6.9*L, Hematocrit 21L , Red Cell Distribution Width 20.1H, Platelet Count 67L, Neutrophils (%) (Auto) 16L, Lymphocytes (%) (Auto) 76H, Neutrophils # (Auto) 0.1L, Lymphocytes # (Auto) 0.6L, Activated Partial Thromboplast Time 44H, Glucose Level 124H, Lactic Acid Level 2.12*H, Calcium Level 8.4L, Total Protein 6.2L 12/12/19 16:05: 12/12/19 17:45: Urine Other MOD SPERMH 12/12/19 23:00: Hemoglobin 7.3L 12/13/19 04:55: White Blood Count 1.0*L, Red Blood Count 2.32L, Hemoglobin 7.4L, Hematocrit 22L, Red Cell Distribution Width 18.7H, Platelet Count 56L, Neutrophils (%) (Auto) 16L, Lymphocytes (%) (Auto) 76H, Neutrophils # (Auto) 0.2L, Lymphocytes # (Auto) 0.8L, Chloride Level 108H, Calcium Level 7.6L, Corrected Calcium 8.3L, Total Bilirubin 1.1H, Total Protein 5.5L, Albumin 3.1L 12/13/19 11:11: Procedures None. Discharge Physical Examination Allergies: Coded Allergies: Sulfa (Sulfonamide Antibiotics) (Verified Allergy, Unknown, 11/09/19) Vitals & I&Os Vital Signs Date Time Temp Pulse Resp B/P (MAP) Pulse Ox O2 Delivery O2 Flow Rate FiO2 12/13/19 13:11 12/13/19 12:00 36.8 102 16 99 Room Air General Appearance: Alert, Oriented X3, Cooperative, No Acute Distress Respiratory: Clear to Auscultation Cardiovascular: Regular Rate Abdominal: Normal Bowel Sounds, Soft, No Tenderness Extremities: No Clubbing, No Cyanosis, No Edema Skin: Other (pallor) Psych/Mental Status: Mental Status NL Discharge Home Medications Reviewed and agree with Discharge Medication list on patient's Discharge Instruction sheet Instructions to Patient/Family Please see electronic discharge instructions given to patient. Clinical Quality Measures DVT/VTE Risk/Contraindication: Risk Factor Score Per Nursin RFS Level Per Nursing on Admit: 4+=Very High KENYETTA BALDWIN DO Dec 13, 2019 16:02
== END 2019-12-13 14:01 | disposition home or self-care (01) ==
LOC: EDUNIT# 13:20 → ER 13:26 → 4TH 15:00
PROVIDERS: ADMIT Family Medicine; ATTEND Family Medicine
DX: D46.9 Myelodysplastic syndrome, unspecified (principal); I25.10 Atherosclerotic heart disease of native coronary artery without angina pectoris; I95.9 Hypotension, unspecified; I10 Essential (primary) hypertension; E78.00 Pure hypercholesterolemia, unspecified; K21.9 Gastro-esophageal reflux disease without esophagitis; M19.90 Unspecified osteoarthritis, unspecified site; M50.30 Other cervical disc degeneration, unspecified cervical region; M51.36 Other intervertebral disc degeneration, lumbar region; M54.9 Dorsalgia, unspecified; J44.9 Chronic obstructive pulmonary disease, unspecified; G89.29 Other chronic pain; D61.818 Other pancytopenia; R55 Syncope and collapse; E86.0 Dehydration; K59.00 Constipation, unspecified; F32.9 Major depressive disorder, single episode, unspecified; Z88.2 Allergy status to sulfonamides; Z79.899 Other long term (current) drug therapy; Z79.891 Long term (current) use of opiate analgesic; Z87.891 Personal history of nicotine dependence
CPT/HCPCS: 36415; 36430; 71045; 80053; 81000; 83605; 85007; 85018; 85025; 85027; 85610; 85730; 86850; 86900; 86901; 86920; 87040; 96360; G0378

== ENCOUNTER 2019-12-16 14:02 | Emergency (ER) | payer MEDICARE, OTHER ==
[~2019-12-16] VITALS: Ht 177 cm; Wt 100.0 kg
--- OUTSIDE RECORDS SUMMARY | 2019-12-16 14:23 | XMS REPORT | CCD ---
Author Author Andrea Piper D.O. 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 PP Unavailable CCM Unavailable Summary Purpose Interface Exchange Insurance Providers Payer name Policy type / Coverage type Covered libertarian ID Effective Begin Date Effective End Date WPS MEDICARE PART B [place] Medicare Part B [id number] Unknown [employer] [place] Medicare Part B [id number] Unknown Family history Mother Diagnosis Age At Onset Breast cancer Unknown Brother Diagnosis Age At Onset Hypertension Unknown Grandfather Diagnosis Age At Onset Myocardial infarction Unknown Social History Social History Element Codes Description Effective Dates Tobacco history SNOMED CT: 549132775 Never smoker 05/18/2015 Marital status Unknown 01/18/2015 Number of children Unknown 3 01/18/2015 Employment Unknown Retired 01/18/[address]: 294676500 Never drinks alcohol 2014 Has the patient ever used illegal drugs? Unknown Has nev er used illegal drugs 01/18/2015 Allergies, Adverse Reactions, Alerts Substance Reaction Codes Entered Date Inactivated Date Status * NO KNOWN FOOD ALLERGIES Unknown 01/18/2015 No Inactiv e Date Active SULFA (SULFONAMIDES) reaction, Unknown 01/18/2015 No Inactive Roque e Active * NO KNOWN ENVIRONMENTAL ALLERGIES Unknown 01/18/2015 N o Inactive Date Active Problems Condition Codes Effective Dates Condition Status Pancytopenia ICD-9: 284.19 ICD-10: D61.818 09/05/2019 Active Thrombocytopenia ICD-9: 287.5 ICD-10: D69.6 10/10/2019 Active Hypertension Unknown 10/06/2019 Active Chronic obstructive pulmonary disease, unspecified ICD -9: 496 ICD-10: J44.9 08/11/2018 Active Essential (primary) hypertension ICD-9: 401.9 ICD-10: I10 10/06/2019 Active Chronic obstructive pulmonary disease with (acute) exa cerbation ICD-9: 491.21 ICD-10: J44.1 07/20/2016 Active Chronic obstructive pulmonary disease with acute lower respiratory infection ICD-9: 496 ICD-10: J44.0 05/17/2018 Active Other fatigue ICD-9: 780.79 ICD-10: R53.83 05/12/2018 Active Other intervertebral disc degeneration, lumbar region ICD-9: 722.52 ICD-10: M51.36 01/18/2015 Active Unsteadiness ICD-9: 781.2 ICD-10: R26.81 08/29/2019 Active Vitamin B12 deficiency anemia, unspecified ICD-9: 281. 1 ICD-10: D51.9 02/16/2019 Active FLU VACCINE ICD-9: V04.81 ICD-10: Z23 07/20/2016 Active PNEUMOCOCCAL VACCINE ICD-9: V03.82 ICD-10: Z23 05/12/2018 Active Anemia Unknown 05/23/2019 Active B12 deficiency ICD-9: 266.2 ICD-10: E53.8 05/23/2019 Active Iron deficiency anemia ICD-9: 280.9 ICD-10: D50.9 05/23/2019 Active Vitamin D deficiency, unspecified ICD-9: 268.9 ICD-10: E55.9 02/14/2019 Active Hyperglycemia, unspecified ICD-9: 790.29 ICD-10: R73.9 02/14/2019 Active Other spondylosis with radiculopathy, lumbosacral say on ICD-9: 722.52 ICD-10: M47.27 01/18/2015 Active Hypoxemia ICD-9: 799.02 ICD-10: R09.02 11/11/2018 Active Acute bronchitis, unspecified ICD-9: 466.0 ICD-10: J20.9 12/10/2016 Active Other specified respiratory disorders ICD-9: 519.8 ICD-10: J98.8 10/29/2018 Active Acute bronchitis due to other specified organisms ICD- 9: 466.0 ICD-10: J20.8 10/26/2018 Active Cervicalgia ICD-9: 723.1 ICD-10: M54.2 08/11/2018 Active Other muscle spasm ICD-9: 728.85 ICD-10: M62.838 08/11/2018 Active Acute gastritis without bleeding ICD-9: 535.00 ICD-10: K29.00 06/11/2018 Active Dizziness and giddiness ICD-9: 780.4 ICD-10: R42 10/17/2015 Active Atherosclerotic heart disease of [place] coronary arter y without angina pectoris ICD-9: 414.00 ICD-10: I25.10 01/18/2015 Active Primary insomnia ICD-9: 780.52 ICD-10: F51.01 05/12/2018 Active Candidal stomatitis ICD-9: 112.0 ICD-10: B37.0 07/07/2017 Active Anemia, unspecified ICD-9: 285.9 ICD-10: D64.9 05/19/2017 Active Disorder of kidney and ureter, unspecified ICD-9: 593. 9 ICD-10: N28.9 05/19/2017 Active Localized edema ICD-9: 782.3 ICD-10: R60.0 06/17/2017 Active Dysuria ICD-9: 788.1 ICD-10: R30.0 05/21/2017 Active Encounter for other specified special examinations ICD -9: V72.85 ICD-10: Z01.89 05/19/2017 Active URI, ACUTE ICD-9: 465.9 ICD-10: J06.9 02/24/2017 Active Bradycardia, unspecified ICD-9: 427.89 ICD-10: R00.1 01/01/2017 Active Hypotension, unspecified ICD-9: 458.9 ICD-10: I95.9 10/17/2015 Active Pneumonia, unspecified organism ICD-9: 486 ICD-10: J18.9 08/29/2015 Active Mild intermittent asthma with (acute) exacerbation ICD -9: 466.0 ICD-10: J45.21 12/15/2016 Active Unspecified asthma with (acute) exacerbation ICD-9: 49 3.92 ICD-10: J45.901 12/10/2016 Active Unspecified open wound of right forearm, initial encou nter ICD-9: 881.00 ICD-10: S51.801A 05/29/2016 Active Mixed hyperlipidemia ICD-9: 272.4 ICD-10: E78.2 03/17/2016 Active Other amnesia ICD-9: 780.93 ICD-10: R41.3 02/07/2015 Active Solitary pulmonary nodule ICD-9: 793.11 ICD-10: R91.1 10/09/2015 Active Gastro-esophageal reflux disease with esophagitis ICD- 9: 530.11 ICD-10: K21.0 06/24/2015 Active Nontoxic single thyroid nodule ICD-9: 241.0 ICD-10: E04.1 06/24/2015 Active MALAISE AND FATIGUE ICD-9: 780.79 02/26/2015 Active Memory disturbance ICD-9: 780.93 02/07/2015 Active Tremor ICD-9: 781.0 02/07/2015 Active Coronary artery disease ICD-9: 414.00 01/18/2015 Active DEPRESSIVE DISORDER NEC ICD-9: 311 01/18/2015 Active INSOMNIA NOS ICD-9: 780.52 01/18/2015 Active Leg weakness ICD-9: 729.89 01/18/2015 Active Lumbar degenerative disc disease ICD-9: 722.52 01/18/2015 Active Peripheral vascular disease ICD-9: 443.9 01/18/2015 Acti ve Medications Medication Codes Instructions Start Date Stop Date Status Fill Instructions Dexilant 60 mg capsule, delayed release RxNorm: 925786 TAKE ONE CAPSULE BY MOUTH DAILY 12/14/2019 No Stop Date Active Cymbalta 60 mg capsule,delayed release RxNorm: 489728 2 Capsule (s) Oral QD 10/24/2019 04/20/2020 Active Dexilant 60 mg capsule, delayed release RxNorm: 997982 TAKE ONE CAPSULE BY MOUTH DAILY 09/19/2019 2019 Inactive Lyrica 50 mg capsule RxNorm: 789348 2 Capsule(s) Oral Q PM for 3 days then 1 po q PM for 3 days then stop 09/05/2019 10/09/2019 Inactive Lyrica 150 mg capsule RxNorm: 908575 1 Capsule(s) Oral every ni ght at bedtime 09/05/2019 09/05/2019 Inactive metoprolol succinate ER 100 mg tablet,extended release 24 hr RxNorm: 940145 1 Tablet(s) Oral QD 08/29/2019 11/27/2019 Inactive hydrocodone 7.5 mg-acetaminophen 325 mg tablet RxNorm: 64210 5 1 Tablet(s) Oral Q4H as needed for pain 08/15/2019 08/21/2019 Inactive Lyrica 150 mg capsule RxNorm: 950194 TAKE ONE CAPSULE BY MOUTH TWICE A DAY 08/11/2019 09/04/2019 Inactive baclofen 20 mg tablet RxNorm: 288747 TAKE ONE TABLET BY MOUTH EVERY NIGHT AT BEDTIME FOR MUSCLE SPASMS AND TAKE ONE TABLET EVERY MORNING NEEDED 08/10/2019 No Stop Date Active Dexilant 60 mg capsule, delayed release RxNorm: 995693 TAKE ONE CAPSULE BY MOUTH DAILY 07/19/2019 09/18/2019 Inactive Cymbalta 60 mg capsule,delayed release RxNorm: 536367 T LASHAUN TWO CAPSULES BY MOUTH DAILY 07/06/2019 10/23/2019 Inactive cyanocobalamin (vit B-12) 1,000 mcg/mL injection solution Rx Norm: 226868 1 Milliliter(s) Intramuscular every two weeks 06/02/2019 06/02/2019 Inac tive cyanocobalamin (vit B-12) 1,000 mcg/mL injection solution Rx Norm: 157607 1 Milliliter(s) Intramuscular every two weeks 05/23/2019 06/01/2019 Inac tive Dexilant 60 mg capsule, delayed release RxNorm: 462370 TAKE ONE CAPSULE BY MOUTH DAILY 05/19/2019 07/17/2019 Inactive Lyrica 150 mg capsule RxNorm: 269070 1 Capsule(s) PO BID 05/11/2019 1 10/09/2018 Inactive Cymbalta 60 mg capsule,delayed release RxNorm: 633276 2 Capsule (s) PO QD 04/04/2019 07/02/2019 Inactive cyanocobalamin (vit B-12) 1,000 mcg/mL injection solution Rx Norm: 674723 1 Milliliter(s) IM QW 03/17/2019 05/22/2019 Inactive Lyrica 150 mg capsule RxNorm: 622657 TAKE ONE CAPSULE BY MOUTH TWICE A DAY 03/08/2019 03/09/2019 Inactive cyanocobalamin (vit B-12) 1,000 mcg/mL injection solution Rx Norm: 420365 1 Milliliter(s) IM QW 02/16/2019 03/16/2019 Inactive Lyrica 150 mg capsule RxNorm: 580937 TAKE ONE CAPSULE BY MOUTH TWICE A DAY 02/08/2019 03/08/2019 Inactive Dexilant 60 mg capsule, delayed release RxNorm: 890675 1 Capsul e(s) PO QD 02/08/2019 05/08/2019 Inactive Dexilant 60 mg capsule, delayed release RxNorm: 099480 TAKE ONE CAPSULE BY MOUTH DAILY 01/03/2019 02/08/2019 Inactive Lyrica 150 mg capsule RxNorm: 657462 1 Capsule(s) PO BID 01/03/2019 0 02/08/2019 Inactive Cymbalta 60 mg capsule,delayed release RxNorm: 189975 T LASHAUN TWO CAPSULES BY MOUTH DAILY 12/27/2018 04/04/2019 Inactive Dexilant 60 mg capsule, delayed release RxNorm: 142098 TAKE ONE CAPSULE BY MOUTH DAILY 12/07/2018 01/02/2019 Inactive prednisone 20 mg tablet RxNorm: 225328 Take 3 tabs by m outh for 3 days, then 2 tabs by mouth for 3 days, then 1 tab by mouth for 3 days Take 2 tabs for 10/29/2018 11/07/2018 Inactive doxycycline hyclate 100 mg tablet RxNorm: 9624192 1 Tablet(s) PO BI D 10/26/2018 11/04/2018 Inactive doxycycline hyclate 100 mg tablet RxNorm: 9782216 1 Tablet(s) PO BI D 10/26/2018 10/25/2018 Inactive Dexilant 60 mg capsule, delayed release RxNorm: 070462 TAKE ONE CAPSULE BY MOUTH DAILY 10/04/2018 12/06/2018 Inactive Lyrica 150 mg capsule RxNorm: 096331 TAKE ONE CAPSULE BY MOUTH TWICE A DAY 10/04/2018 11/02/2018 Inactive baclofen 20 mg tablet RxNorm: 099981 1 Tablet(s) PO QHS for muscle spasm and q AM prn 08/11/2018 08/09/2019 Inactive Lyrica 150 mg capsule RxNorm: 664139 1 Capsule(s) PO BID 08/06/2018 0 10/04/2018 Inactive Dexilant 60 mg capsule, delayed release RxNorm: 236906 TAKE ONE CAPSULE BY MOUTH DAILY 07/07/2018 10/03/2018 Inactive Cymbalta 60 mg capsule,delayed release RxNorm: 484521 T LASHAUN TWO CAPSULES BY MOUTH DAILY 06/28/2018 12/24/2018 Inactive prednisone 20 mg tablet RxNorm: 049259 1 Tablet(s) PO BID 06/17/2018 06/21/2018 Inactive Zithromax Z-Osman 250 mg tablet RxNorm: 780262 Tablet(s) PO take as directed 06/17/2018 08/10/2018 Inactive Flagyl 500 mg tablet RxNorm: 572454 1 Tablet(s) PO BID 06/11/2018 Inactive Cipro 250 mg tablet RxNorm: 748612 1 Tablet(s) PO BID 06/11/201805/31 Inactive atenolol 50 mg tablet RxNorm: 843310 1 Tablet(s) PO BID 05/31/2018 Inactive albuterol sulfate 2.5 mg/3 mL (0.083 %) solution for n ebulization RxNorm: 148255 3 Milliliter(s) INH Q4H as needed 05/17/2018 No Stop Date Active Zithromax Z-Osman 250 mg tablet RxNorm: 026013 Tablet(s) PO take as directed 05/17/2018 06/10/2018 Inactive Lyrica 150 mg capsule RxNorm: 208426 1 Capsule(s) PO BID 05/12/2018 1 10/07/2017 Inactive hydrocodone 7.5 mg-acetaminophen 325 mg tablet RxNorm: 21892 5 1 Tablet(s) PO Q4H as needed for pain 05/12/2018 05/18/2018 Inactive Cymbalta 60 mg capsule,delayed release RxNorm: 579442 T LASHAUN TWO CAPSULES BY MOUTH DAILY 04/01/2018 04/04/2018 Inactive Lyrica 100 mg capsule RxNorm: 213926 Capsule(s) TAKE ON E CAPSULE BY MOUTH TWICE A DAY 03/01/2018 05/11/2018 Inactive Dexilant 60 mg capsule, delayed release RxNorm: 138639 1 Capsul e(s) PO QD 01/06/2018 07/04/2018 Inactive atenolol 50 mg tablet RxNorm: 783652 1 Tablet(s) PO BID 12/30/2017 Inactive Lyrica 100 mg capsule RxNorm: 083643 Capsule(s) TAKE ON E CAPSULE BY MOUTH TWICE A DAY 12/30/2017 02/26/2018 Inactive Cymbalta 60 mg capsule,delayed release RxNorm: 741859 2 Capsule (s) PO QD 12/30/2017 03/29/2018 Inactive ProAir HFA 90 mcg/actuation aerosol inhaler RxNorm: 264915 INHALE 2 PUFFS FOUR TIMES A DAY 11/12/2017 01/25/2018 Inactive Cymbalta 60 mg capsule,delayed release RxNorm: 093775 2 Capsule (s) PO QD 10/06/2017 12/30/2017 Inactive Lyrica 100 mg capsule RxNorm: 838975 TAKE ONE CAPSULE BY MOUTH TWICE A DAY 09/28/2017 10/26/2017 Inactive Lyrica 100 mg capsule RxNorm: 182569 1 Capsule(s) PO BID 08/26/2017 0 09/28/2017 Inactive Zithromax Z-Osman 250 mg tablet RxNorm: 042487 Tablet(s) PO As Di rected 08/07/2017 05/11/2018 Inactive Diflucan 150 mg tablet RxNorm: 884253 1 Tablet(s) PO Q72H 07/20/2017 05/11/2018 Inactive nystatin 100,000 unit/mL oral suspension RxNorm: 388777 5 Milliliter(s) PO QID swish and spit for 2 weeks 07/07/2017 07/20/2017 Inactive fluconazole 100 mg tablet RxNorm: 815494 1 Tablet(s) PO QD 07/07/20 17 07/13/2017 Inactive Dexilant 60 mg capsule, delayed release RxNorm: 868847 1 Capsul e(s) PO QD 07/01/2017 01/06/2018 Inactive Cymbalta 60 mg capsule,delayed release RxNorm: 300555 2 Capsule (s) PO QD 07/01/2017 09/28/2017 Inactive atenolol 50 mg tablet RxNorm: 934595 1 Tablet(s) PO BID 06/17/2017 Inactive atenolol 50 mg tablet RxNorm: 840724 1 Tablet(s) PO BID 06/17/2017 Inactive atenolol 25 mg tablet RxNorm: 128525 1 Tablet(s) PO QD 06/16/2017 Inactive Cipro 250 mg tablet RxNorm: 512153 1 Tablet(s) PO BID 05/26/201705/02 Inactive Cipro 250 mg tablet RxNorm: 702113 1 Tablet(s) PO BID 05/26/201710/2016 Inactive Cymbalta 60 mg capsule,delayed release RxNorm: 947699 2 Capsule (s) PO QD 04/02/2017 07/01/2017 Inactive Zanaflex 4 mg tablet RxNorm: 001234 1 Tablet(s) PO BID as neede d for spasm 03/18/2017 05/11/2018 Inactive methocarbamol 750 mg tablet RxNorm: 960044 1 Tablet(s) PO TID as needed for muscle spasm 03/17/2017 03/17/2017 Inactive Cymbalta 60 mg capsule,delayed release RxNorm: 353216 T LASHAUN TWO CAPSULES BY MOUTH DAILY 01/01/2017 04/02/2017 Inactive atenolol 25 mg tablet RxNorm: 366496 1 Tablet(s) PO QD 01/01/2017 Inactive Dexilant 60 mg capsule, delayed release RxNorm: 352991 1 Capsul e(s) PO QD 12/24/2016 07/01/2017 Inactive prednisone 20 mg tablet RxNorm: 550676 1 Tablet(s) PO BID 12/17/2016 12/23/2016 Inactive doxycycline hyclate 100 mg capsule RxNorm: 4266304 1 Capsule(s) PO BID 12/11/2016 12/20/2016 Inactive doxycycline hyclate 100 mg capsule RxNorm: 5673796 1 Capsule(s) PO BID 12/11/2016 12/10/2016 Inactive albuterol sulfate 2.5 mg/3 mL (0.083 %) solution for n ebulization RxNorm: 140834 3 Milliliter(s) INH Q4H as needed 12/11/2016 05/16/2018 Inactiv e guaifenesin 400 mg tablet RxNorm: 866635 1 Tablet(s) PO QID 017 05/11/2018 Inactive Tessalon Perles 100 mg capsule RxNorm: 787158 1 Capsule (s) PO TID as needed for cough 12/10/2016 12/31/2016 Inactive ProAir HFA 90 mcg/actuation aerosol inhaler RxNorm: 813652 INHALE 2 PUFFS FOUR TIMES A DAY 08/12/2016 11/12/2017 Inactive Dexilant 60 mg capsule, delayed release RxNorm: 660593 TAKE ONE CAPSULE BY MOUTH DAILY 06/16/2016 12/24/2016 Inactive Cymbalta 60 mg capsule,delayed release RxNorm: 236461 2 Capsule (s) PO QD 06/16/2016 12/12/2016 Inactive zolpidem 10 mg tablet RxNorm: 020929 TAKE ONE TABLET BY MOUTH A T BEDTIME 03/10/2016 05/28/2016 Inactive Dexilant 60 mg capsule, delayed release RxNorm: 707271 TAKE ONE CAPSULE BY MOUTH DAILY 02/06/2016 06/04/2016 Inactive Cymbalta 60 mg capsule,delayed release RxNorm: 984835 2 Capsule (s) PO QD 11/19/2015 05/16/2016 Inactive zolpidem 10 mg tablet RxNorm: 511845 TAKE ONE TABLET BY MOUTH A T BEDTIME 10/02/2015 03/10/2016 Inactive Dexilant 60 mg capsule, delayed release RxNorm: 195000 TAKE ONE CAPSULE BY MOUTH DAILY 08/28/2015 01/24/2016 Inactive ProAir HFA 90 mcg/actuation aerosol inhaler RxNorm: 071670 2 Pu ff(s) INH QID 06/25/2015 10/22/2015 Inactive famotidine 40 mg tablet RxNorm: 033018 1 Tablet(s) PO QHS 06/25/2015 10/09/2015 Inactive Dexilant 60 mg capsule, delayed release RxNorm: 334696 1 Capsul e(s) PO QD 06/07/2015 08/27/2015 Inactive zolpidem 10 mg tablet RxNorm: 772646 TAKE ONE TABLET BY MOUTH EVERY NIGHT AT BEDTIME 06/01/2015 10/03/2015 Inactive Cymbalta 60 mg capsule,delayed release RxNorm: 537097 2 Capsule (s) PO QD 05/10/2015 11/19/2015 Inactive Cymbalta 60 mg capsule,delayed release RxNorm: 643426 2 Capsule (s) PO QD 04/11/2015 05/10/2015 Inactive zolpidem 10 mg tablet RxNorm: 455459 TAKE ONE TABLET BY MOUTH A T BEDTIME 04/06/2015 06/01/2015 Inactive zolpidem 10 mg tablet RxNorm: 370102 TAKE ONE TABLET BY MOUTH A T BEDTIME 03/05/2015 04/06/2015 Inactive zolpidem 10 mg tablet RxNorm: 154238 1 Tablet(s) PO QHS as need ed for sleep 02/27/2015 03/04/2015 Inactive Cymbalta 60 mg capsule,delayed release RxNorm: 753761 1 Capsule (s) PO QD 01/18/2015 04/10/2015 Inactive [AttnRPh: Saving clare ly/adjudicate RxGRP:[id number] RxBIN:[id number] RxPCN: ID#:[id number]] Trazadone 75mg Tablet RxNorm: 1-2 Tablet(s) PO QHS as ne eded for sleep 01/18/2015 02/26/2015 Inactive Singulair 10 mg tablet RxNorm: 124115 1 Tablet(s) PO QD No Start Date Active Tylenol Extra Strength 500 mg tablet RxNorm: 219762 Tablet(s) P O as needed No Start Date Active methocarbamol 750 mg tablet RxNorm: 353296 Tablet(s) PO as needed N o Start Date Active Vitamin D3 1,000 unit capsule RxNorm: 823668 1 Capsule(s) PO BID No Start Date Active aspirin 81 mg tablet RxNorm: 595814 1 Tablet(s) PO QD No Start Date Active Symbicort 160 mcg-4.5 mcg/actuation HFA aerosol inhaler RxNo rm: 8165499 2 Puff(s) INH BID No Start Date Active atorvastatin 40 mg tablet RxNorm: 391358 1 Tablet(s) PO QD No Start D ate Active potassium chloride ER 10 mEq tablet,extended release RxNorm: 202248 Tablet(s) PO as needed No Start Date Active furosemide 40 mg tablet RxNorm: 220840 Tablet(s) PO as needed No Star t Date Active Trazadone 100 100mg mg Tablet RxNorm: 1-2 Tablet(s) PO QHS No Start Date 01/17/2015 Inactive Fish Oil 1,000 mg capsule RxNorm: 1 Capsule(s) PO QD No Start Date 05/16/2018 Inactive multivitamin with iron tablet RxNorm: 1 Tablet(s) PO QD No Sta rt Date 05/16/2018 Inactive Spiriva Respimat inhalation RxNorm: 670509 inhalation No Start Date 1 09/05/2016 Inactive atenolol 25 mg tablet RxNorm: 954122 1 Tablet(s) PO BID No Start Da te 12/31/2016 Inactive Spiriva Respimat 2.5 mcg/actuation solution for inhalation R xNorm: 3923953 2 Puff(s) INH QD No Start Date 05/11/2018 Inactive Zithromax Z-Osman 250 mg tablet RxNorm: 999567 Tablet(s) PO As Di rected No Start Date 08/06/2017 Inactive Zanaflex 4 mg tablet RxNorm: 484856 1 Tablet(s) PO BID as neede d for spasm No Start Date 03/17/2017 Inactive gabapentin 800 mg tablet RxNorm: 422406 1 Tablet(s) PO TID No Start Date 03/17/2016 Inactive losartan 100 mg tablet RxNorm: 883882 1 Tablet(s) PO QD No Start Da te 12/31/2016 Inactive cyclobenzaprine 10 mg tablet RxNorm: 609782 1 Tablet(s) PO TID as needed for muscle spasm No Start Date 05/11/2018 Inactive gabapentin 300 mg capsule RxNorm: 591483 1 Capsule(s) PO TID No Sta rt Date 10/09/2015 Inactive ferrous sulfate 325 mg (65 mg iron) tablet RxNorm: 329434 1 Tab let(s) PO QD No Start Date 09/04/2019 Inactive Dexilant 60 mg capsule, delayed release RxNorm: 640146 1 Capsul e(s) PO QD No Start Date 06/06/2015 Inactive amitriptyline 25 mg tablet RxNorm: 468530 1-2 Tablet(s) PO QHS as needed for sleep --replaces ambien No Start Date 07/20/2016 Inactive hydrocodone 7.5 mg-acetaminophen 325 mg tablet RxNorm: 21327 5 1 Tablet(s) PO TID No Start Date 05/11/2018 Inactive Lyrica 75 mg capsule RxNorm: 253473 1 Capsule(s) PO BID No Start Da te 05/11/2018 Inactive gabapentin 300 mg capsule RxNorm: 071835 1 Capsule(s) PO QHS No Sta rt Date 02/07/2015 Inactive Lyrica 50 mg capsule RxNorm: 585441 1 Capsule(s) PO BID No Start Da te 07/20/2016 Inactive zolpidem 10 mg tablet RxNorm: 130746 1 Tablet(s) PO QHS No Start Da te 02/07/2015 Inactive citalopram 40 mg tablet RxNorm: 903324 1 Tablet(s) PO QD No Start D ate 01/17/2015 Inactive hydrocodone 7.5 mg-acetaminophen 325 mg tablet RxNorm: 51391 5 1 Tablet(s) PO Q6H as needed for pain No Start Date 03/17/2016 Inactive losartan 100 mg tablet RxNorm: 053235 1/2 Tablet(s) PO QD No Start Date 05/18/2017 Inactive cyanocobalamin (vit B-12) 1,000 mcg/mL injection solution Rx Norm: 720828 1 Milliliter(s) IM QW No Start Date 02/15/2019 Inactive ProAir HFA 90 mcg/actuation aerosol inhaler RxNorm: 2939991 2 Pu ff(s) INH TID No Start Date 06/24/2015 Inactive methocarbamol 750 mg tablet RxNorm: 878250 1 Tablet(s) PO TID as needed for muscle spasm No Start Date 03/17/2016 Inactive Medication Administered No Medication Administered data Immunizations Vaccine Codes Date Status Influenza CVX: 135 06/06/2019 Complete Influenza CVX: 135 06/06/2019 Complete Pneumococcal CVX: 33 06/06/2019 Complete Pneumococcal CVX: 33 06/06/2019 Complete Influenza CVX: 135 05/12/2018 Complete Pneumococcal CVX: 133 05/12/2018 Complete Influenza CVX: 135 06/17/2017 Complete Influenza CVX: 135 07/21/2016 Complete Influenza CVX: 135 06/25/2015 Results Observation Observation Code Item Item Code Result Date S ervice Location NCDF [id number] Neutrophil 27 % 10/11/2019 Unknown NCDF [id number] BAND 0 % 10/11/2019 Unknown NCDF [id number] Lymphocyte 59 % 10/11/2019 Unknown NCDF [id number] Monocyte 13 % 10/11/2019 Unknown NCDF [id number] Eosinophil 1 % 10/11/2019 Unknown NCDF [id number] Basophil 0 % 10/11/2019 Unknown NCDF [id number] Platelet Est Decreased 10/11/2019 Unkno wn NCDF [id number] Large Plts Present 10/11/2019 Unknown COMPLETE BLOOD COUNT [id number] WBC 2.4 10e9/L 10/10/19 20 Unknown COMPLETE BLOOD COUNT [id number] RBC 3.15 10e12/L 2019 Unknown COMPLETE BLOOD COUNT [id number] HEMOGLOBIN 11.4 g/dL 10/10/19 20 Unknown COMPLETE BLOOD COUNT [id number] HEMATOCRIT 35.0 % 10/10/19 20 Unknown COMPLETE BLOOD COUNT [id number] MCV 111.1 fL 0 Unknown COMPLETE BLOOD COUNT [id number] MCH 36.2 pg 0 Unknown COMPLETE BLOOD COUNT [id number] MCHC 32.6 g/dL 0 Unknown COMPLETE BLOOD COUNT [id number] PLATELET COUNT 18 10e9/L 10/01 Unknown COMPLETE BLOOD COUNT [id number] Mean Plt Volume 11.3 fL 05/2020 Unknown COMPLETE BLOOD COUNT [id number] Neut Auto 27.9 % 0 Unknown COMPLETE BLOOD COUNT [id number] Lymph Auto 58.5 % 10/10/19 20 Unknown COMPLETE BLOOD COUNT [id number] Scott Auto 12.0 % 0 Unknown COMPLETE BLOOD COUNT [id number] RDW 14.0 % 0 Unknown COMPLETE BLOOD COUNT [id number] Eos Auto 0.4 % 0 Unknown COMPLETE BLOOD COUNT [id number] Baso Auto 1.2 % 0 Unknown COMPLETE BLOOD COUNT [id number] Neutrophil Abs 0.67 10e9/L Unknown COMPLETE BLOOD COUNT [id number] Lymphocyte Abs 1.40 10e9/L Unknown COMPLETE BLOOD COUNT [id number] Monocyte Abs 0.29 10e9/L 10/01 Unknown COMPLETE BLOOD COUNT [id number] Eosinophil Abs 0.01 10e9/L Unknown COMPLETE BLOOD COUNT [id number] RDW-SD 54.2 fL 0 Unknown COMPLETE BLOOD COUNT [id number] Basophil Abs 0.03 10e9/L 10/01 Unknown NCDF [id number] Neutrophil 32 % 08/30/2019 Unknown NCDF [id number] BAND 4 % 08/30/2019 Unknown NCDF [id number] Lymphocyte 43 % 08/30/2019 Unknown NCDF 9333424 Monocyte 20 % 08/30/2019 Unknown NCDF [id number] Eosinophil 1 % 08/30/2019 Unknown NCDF [id number] Basophil 0 % 08/30/2019 Unknown NCDF [id number] Platelet Est Decreased 08/30/2019 Unkno wn VITAMIN B 12 08256 VITAMIN B12 716 pg/mL 08/29/2019 Unkn own COMPLETE BLOOD COUNT [id number] WBC 3.0 10e9/L 08/29/20 19 Unknown COMPLETE BLOOD COUNT [id number] RBC 3.19 10e12/L 2018 Unknown COMPLETE BLOOD COUNT [id number] HEMOGLOBIN 11.5 g/dL 08/29/20 19 Unknown COMPLETE BLOOD COUNT [id number] HEMATOCRIT 35.6 % 08/29/20 19 Unknown COMPLETE BLOOD COUNT [id number] MCV 111.6 fL 9 Unknown COMPLETE BLOOD COUNT [id number] MCH 36.1 pg 9 Unknown COMPLETE BLOOD COUNT [id number] MCHC 32.3 g/dL 9 Unknown COMPLETE BLOOD COUNT [id number] PLATELET COUNT 79 10e9/L 08/02 Unknown COMPLETE BLOOD COUNT [id number] Mean Plt Volume 11.1 fL Unknown COMPLETE BLOOD COUNT [id number] Neut Auto 32.7 % 9 Unknown COMPLETE BLOOD COUNT [id number] Lymph Auto 39.6 % 08/29/20 19 Unknown COMPLETE BLOOD COUNT [id number] Scott Auto 24.4 % 9 Unknown COMPLETE BLOOD COUNT [id number] RDW 14.0 % 9 Unknown COMPLETE BLOOD COUNT [id number] Eos Auto 2.0 % 9 Unknown COMPLETE BLOOD COUNT [id number] Baso Auto 1.3 % 9 Unknown COMPLETE BLOOD COUNT [id number] Neutrophil Abs 0.98 10e9/L Unknown COMPLETE BLOOD COUNT [id number] Lymphocyte Abs 1.19 10e9/L Unknown COMPLETE BLOOD COUNT [id number] Monocyte Abs 0.73 10e9/L 08/02 Unknown COMPLETE BLOOD COUNT [id number] Eosinophil Abs 0.06 10e9/L Unknown COMPLETE BLOOD COUNT [id number] RDW-SD 54.5 fL 9 Unknown COMPLETE BLOOD COUNT [id number] Basophil Abs 0.04 10e9/L 08/02 Unknown NCDF [id number] Neutrophil 37 % 05/24/2019 Unknown NCDF [id number] BAND 5 % 05/24/2019 Unknown NCDF [id number] Lymphocyte 34 % 05/24/2019 Unknown NCDF [id number] Monocyte 19 % 05/24/2019 Unknown NCDF [id number] Eosinophil 3 % 05/24/2019 Unknown NCDF [id number] Basophil 2 % 05/24/2019 Unknown NCDF [id number] Platelet Est Adequate 05/24/2019 Unknow n VITAMIN B 12 09437 VITAMIN B12 788 pg/mL 05/23/2019 Unkn own IRON 53354 Iron 152 ug/dL 05/23/2019 Unknown COMPLETE BLOOD COUNT [id number] WBC 3.9 10e9/L 05/23/20 19 Unknown COMPLETE BLOOD COUNT [id number] RBC 3.61 10e12/L 2018 Unknown COMPLETE BLOOD COUNT [id number] HEMOGLOBIN 12.5 g/dL 05/23/20 19 Unknown COMPLETE BLOOD COUNT [id number] HEMATOCRIT 38.2 % 05/23/20 19 Unknown COMPLETE BLOOD COUNT [id number] MCV 105.8 fL 9 Unknown COMPLETE BLOOD COUNT [id number] MCH 34.6 pg 9 Unknown COMPLETE BLOOD COUNT [id number] MCHC 32.7 g/dL 9 Unknown COMPLETE BLOOD COUNT [id number] PLATELET COUNT 157 10e9/L Unknown COMPLETE BLOOD COUNT [id number] Mean Plt Volume 10.4 fL Unknown COMPLETE BLOOD COUNT [id number] Neut Auto 35.6 % 9 Unknown COMPLETE BLOOD COUNT [id number] Lymph Auto 33.2 % 05/23/20 19 Unknown COMPLETE BLOOD COUNT [id number] Scott Auto 26.6 % 9 Unknown COMPLETE BLOOD COUNT [id number] RDW 14.1 % 9 Unknown COMPLETE BLOOD COUNT [id number] Eos Auto 1.8 % 9 Unknown COMPLETE BLOOD COUNT [id number] Baso Auto 2.8 % 9 Unknown COMPLETE BLOOD COUNT [id number] Neutrophil Abs 1.39 10e9/L Unknown COMPLETE BLOOD COUNT [id number] Lymphocyte Abs 1.29 10e9/L Unknown COMPLETE BLOOD COUNT [id number] Monocyte Abs 1.04 10e9/L 05/02 Unknown COMPLETE BLOOD COUNT [id number] Eosinophil Abs 0.07 10e9/L Unknown COMPLETE BLOOD COUNT [id number] RDW-SD 53.5 fL 9 Unknown COMPLETE BLOOD COUNT [id number] Basophil Abs 0.11 10e9/L 05/02 Unknown COMPLETE BLOOD COUNT [id number] WBC 5.4 10e9/L 06/11/20 18 Unknown COMPLETE BLOOD COUNT [id number] RBC 4.05 10e12/L 2017 Unknown COMPLETE BLOOD COUNT [id number] HEMOGLOBIN 13.5 g/dL 06/11/20 18 Unknown COMPLETE BLOOD COUNT [id number] HEMATOCRIT 41.3 % 06/11/20 18 Unknown COMPLETE BLOOD COUNT [id number] MCV 102.0 fL 8 Unknown COMPLETE BLOOD COUNT [id number] MCH 33.3 pg 8 Unknown COMPLETE BLOOD COUNT [id number] MCHC 32.7 g/dL 8 Unknown COMPLETE BLOOD COUNT [id number] PLATELET COUNT 210 10e9/L 07/2018 Unknown COMPLETE BLOOD COUNT [id number] Mean Plt Volume 10.0 fL 07/2018 Unknown COMPLETE BLOOD COUNT [id number] Neut Auto 35.2 % 8 Unknown COMPLETE BLOOD COUNT [id number] Lymph Auto 29.2 % 06/11/20 18 Unknown COMPLETE BLOOD COUNT [id number] Scott Auto 17.3 % 8 Unknown COMPLETE BLOOD COUNT 1965304 RDW 13.8 % 8 Unknown COMPLETE BLOOD COUNT [id number] Eos Auto 16.4 % 8 Unknown COMPLETE BLOOD COUNT [id number] Baso Auto 1.9 % 8 Unknown COMPLETE BLOOD COUNT [id number] Neutrophil Abs 1.90 10e9/L Unknown COMPLETE BLOOD COUNT [id number] Lymphocyte Abs 1.58 10e9/L Unknown COMPLETE BLOOD COUNT [id number] Monocyte Abs 0.93 10e9/L 05/31 Unknown COMPLETE BLOOD COUNT [id number] Eosinophil Abs 0.89 10e9/L Unknown COMPLETE BLOOD COUNT [id number] RDW-SD 50.2 fL 8 Unknown COMPLETE BLOOD COUNT [id number] Basophil Abs 0.10 10e9/L 05/31 Unknown GFR CALC [id number] GFR Afr Amr >60 mL/min 06/11/2018 Unknow n GFR CALC [id number] GFR Non Afr Amr >60 mL/min 06/11/2018 Un known COMPREHENSIVE METABOLIC 45608 AST 15 U/L 2017 Unknown COMPREHENSIVE METABOLIC 86996 ALT 18 U/L 2017 Unknown COMPREHENSIVE METABOLIC 37309 BUN 11 mg/dL 2017 Unknown COMPREHENSIVE METABOLIC 97393 ALBUMIN 3.7 g/dL 2017 Unknown COMPREHENSIVE METABOLIC 77176 CHLORIDE 102 mmol/L 06/11 Unknown COMPREHENSIVE METABOLIC 07041 Bili Total 0.6 mg/dL 06/11 Unknown COMPREHENSIVE METABOLIC 29753 ALK PHOS 98 U/L 2017 Unknown COMPREHENSIVE METABOLIC 53785 SODIUM 139 mmol/L 06/11 Unknown COMPREHENSIVE METABOLIC 39751 CREATININE 0.89 mg/dL 05/31 Unknown COMPREHENSIVE METABOLIC 33147 CALCIUM 8.7 mg/dL 2017 Unknown COMPREHENSIVE METABOLIC 07634 POTASSIUM 3.9 mmol/L 06/11 Unknown COMPREHENSIVE METABOLIC 12563 Total Protein 6.7 g/dL Unknown COMPREHENSIVE METABOLIC 78962 Glucose 112 mg/dL 2017 Unknown COMPREHENSIVE METABOLIC 53286 Bicarbonate 35 mmol/L 05/31 Unknown COMPREHENSIVE METABOLIC 24623 AGAP 2 mmol/L 2017 Unknown COMPLETE BLOOD COUNT [id number] WBC 7.4 10e9/L 10/17/19 16 Unknown COMPLETE BLOOD COUNT [id number] RBC 4.42 10e12/L 2015 Unknown COMPLETE BLOOD COUNT 3548195 HGB 13.8 g/dL 6 Unknown COMPLETE BLOOD COUNT 4795761 HCT DET 40.8 % 6 Unknown COMPLETE BLOOD COUNT 7656367 MCV 92.3 fL 6 Unknown COMPLETE BLOOD COUNT 1796527 MCH 31.2 pg 6 Unknown COMPLETE BLOOD COUNT 6874517 MCHC 33.8 g/dL 6 Unknown COMPLETE BLOOD COUNT 5117269 PLT 247 10e9/L 10/17/19 16 Unknown COMPLETE BLOOD COUNT 5338617 MPV 9.3 fL 6 Unknown COMPLETE BLOOD COUNT [id number] YANNICK % 63.0 % 6 Unknown COMPLETE BLOOD COUNT 7843204 LY % 19.2 % 6 Unknown COMPLETE BLOOD COUNT 9739874 MON % 15.8 % 6 Unknown COMPLETE BLOOD COUNT 3065118 EOS % 1.1 % 6 Unknown COMPLETE BLOOD COUNT [id number] BASO % 0.9 % 6 Unknown COMPLETE BLOOD COUNT 1463242 RDW 13.7 % 6 Unknown COMPLETE BLOOD COUNT [id number] ABS YANNICK 4.66 10e9/L 016 Unknown COMPLETE BLOOD COUNT [id number] ABS LYMPH 1.42 10e9/L 016 Unknown COMPLETE BLOOD COUNT [id number] ABS MONO 1.17 10e9/L 016 Unknown COMPLETE BLOOD COUNT [id number] ABS EOS 0.08 10e9/L 016 Unknown COMPLETE BLOOD COUNT [id number] ABS BASO 0.07 10e9/L 016 Unknown COMPLETE BLOOD COUNT [id number] RDW-SD 44.9 fL 6 Unknown GFR CALC [id number] GFR AA 46.0L ML/MIN 10/17/2015 Unknow n GFR CALC [id number] GFR NON-AA 37.0L ML/MIN 10/17/2015 Unkno wn C-REACTIVE PROTEIN (CRP) QUANT 68267 CRP 0.5 MG/DL 10/17/2015 Unknown COMPREHENSIVE METABOLIC 44057 AST 18 U/L 2015 Unknown COMPREHENSIVE METABOLIC 34936 ALT 27 U/L 2015 Unknown COMPREHENSIVE METABOLIC 52047 BUN 38 MG/DL 2015 Unknown COMPREHENSIVE METABOLIC 26862 ALBUMIN 3.7 GM/DL 2015 Unknown COMPREHENSIVE METABOLIC 89705 CHLORIDE 100 MMOL/L 10/17 Unknown COMPREHENSIVE METABOLIC 81866 BILI TOT 0.8 MG/DL 2015 Unknown COMPREHENSIVE METABOLIC 83987 ALK PHOS 70 U/L 2015 Unknown COMPREHENSIVE METABOLIC 57980 SODIUM 137 MMOL/L 10/17 Unknown COMPREHENSIVE METABOLIC 95910 CREATININE 1.80 MG/DL 10/01 Unknown COMPREHENSIVE METABOLIC 27574 CALCIUM 8.9 MG/DL 2015 Unknown COMPREHENSIVE METABOLIC 93540 POTASSIUM 5.1 MMOL/L 10/17 Unknown COMPREHENSIVE METABOLIC 31471 PROT TOT 6.6 GM/DL 2015 Unknown COMPREHENSIVE METABOLIC 51786 Glucose 99 MG/DL 2015 Unknown COMPREHENSIVE METABOLIC 40553 BICARB 22 MMOL/L 2015 Unknown COMPREHENSIVE METABOLIC 75758 ANION GAP 15 MMOL/L 2015 Unknown Procedures Procedure Codes Date ROUTINE VENIPUNCTURE CPT-4: 99634 10/10/2019 COMPLETE CBC W/AUTO DIFF WBC CPT-4: 11888 10/10/2019 THER/PROPH/DIAG INJ SC/IM CPT-4: 18738 09/20/2019 TRIAMCINOLONE ACET INJ NOS CPT-4: J3301 09/20/2019 CEFTRIAXONE SODIUM INJECTION CPT-4: J0696 09/20/2019 THER/PROPH/DIAG INJ SC/IM CPT-4: 76823 09/20/2019 THER/PROPH/DIAG INJ SC/IM CPT-4: 47753 09/19/2019 METHYLPREDNISOLONE INJECTION CPT-4: J2930 09/19/2019 CEFTRIAXONE SODIUM INJECTION CPT-4: J0696 09/19/2019 THER/PROPH/DIAG INJ SC/IM CPT-4: 30584 09/19/2019 ROUTINE VENIPUNCTURE CPT-4: 29126 08/29/2019 COMPLETE CBC W/AUTO DIFF WBC CPT-4: 17285 08/29/2019 VITAMIN B-12 CPT-4: 25473 08/29/2019 THER/PROPH/DIAG INJ SC/IM CPT-4: 53978 08/29/2019 THER/PROPH/DIAG INJ SC/IM CPT-4: 89630 08/15/2019 THER/PROPH/DIAG INJ SC/IM CPT-4: 22507 08/01/2019 THER/PROPH/DIAG INJ SC/IM CPT-4: 74016 07/18/2019 THER/PROPH/DIAG INJ SC/IM CPT-4: 26763 07/04/2019 THER/PROPH/DIAG INJ SC/IM CPT-4: 03036 06/20/2019 FLU VACC PRSV FREE INC ANTIG 65 AND OLDER CPT-4: 24950 06/06/2019 THER/PROPH/DIAG INJ SC/IM CPT-4: 56753 06/06/2019 FLU VACC PRSV FREE INC ANTIG 65 AND OLDER CPT-4: 15276 06/06/2019 PNEUMOCOCCAL VACC 23 GAIL IM CPT-4: 03141 06/06/2019 ADMIN INFLUENZA VIRUS VAC CPT-4: G0008 06/06/2019 ADMIN PNEUMOCOCCAL VACCINE CPT-4: G0009 06/06/2019 ROUTINE VENIPUNCTURE CPT-4: 71009 05/23/2019 COMPLETE CBC W/AUTO DIFF WBC CPT-4: 24556 05/23/2019 ASSAY OF IRON CPT-4: 38180 05/23/2019 VITAMIN B-12 CPT-4: 29572 05/23/2019 THER/PROPH/DIAG INJ SC/IM CPT-4: 98995 05/18/2019 THER/PROPH/DIAG INJ SC/IM CPT-4: 32092 05/04/2019 THER/PROPH/DIAG INJ SC/IM CPT-4: 72457 04/27/2019 THER/PROPH/DIAG INJ SC/IM CPT-4: 93594 04/20/2019 THER/PROPH/DIAG INJ SC/IM CPT-4: 65372 04/06/2019 THER/PROPH/DIAG INJ SC/IM CPT-4: 47863 03/23/2019 VITAMIN B12 INJECTION CPT-4: J3420 03/23/2019 THER/PROPH/DIAG INJ SC/IM CPT-4: 65057 03/14/2019 THER/PROPH/DIAG INJ SC/IM CPT-4: 65887 03/07/2019 THER/PROPH/DIAG INJ SC/IM CPT-4: 87878 02/24/2019 THER/PROPH/DIAG INJ SC/IM CPT-4: 19297 02/16/2019 CEFTRIAXONE SODIUM INJECTION CPT-4: J0696 10/29/2018 THER/PROPH/DIAG INJ SC/IM CPT-4: 59640 10/29/2018 THER/PROPH/DIAG INJ SC/IM CPT-4: 83736 10/26/2018 METHYLPREDNISOLONE INJECTION CPT-4: J2930 10/26/2018 THER/PROPH/DIAG INJ SC/IM CPT-4: 87349 06/23/2018 METHYLPREDNISOLONE INJECTION CPT-4: J2930 06/23/2018 COMPLETE CBC W/AUTO DIFF WBC CPT-4: 06801 06/11/2018 COMPREHEN METABOLIC PANEL CPT-4: 70723 06/11/2018 CEFTRIAXONE SODIUM INJECTION CPT-4: J0696 05/18/2018 THER/PROPH/DIAG INJ SC/IM CPT-4: 84905 05/18/2018 CEFTRIAXONE SODIUM INJECTION CPT-4: J0696 05/17/2018 THER/PROPH/DIAG INJ SC/IM CPT-4: 79956 05/17/2018 THER/PROPH/DIAG INJ SC/IM CPT-4: 17342 05/17/2018 METHYLPREDNISOLONE INJECTION CPT-4: J2930 05/17/2018 FLU VACC PRSV FREE INC ANTIG 65 AND OLDER CPT-4: 05313 05/12/2018 PNEUMOCOCCAL VACC 13 GAIL IM CPT-4: 41232 05/12/2018 ADMIN INFLUENZA VIRUS VAC CPT-4: G0008 05/12/2018 ADMIN PNEUMOCOCCAL VACCINE CPT-4: G0009 05/12/2018 FLU VACC PRSV FREE INC ANTIG 65 AND OLDER CPT-4: 71904 06/17/2017 ADMIN INFLUENZA VIRUS VAC CPT-4: G0008 06/17/2017 URINALYSIS NONAUTO W/O SCOPE CPT-4: 65299 05/21/2017 URINE CULTURE/ COLONY COUNT CPT-4: 74336 05/21/2017 CEFTRIAXONE SODIUM INJECTION CPT-4: J0696 12/16/2016 THER/PROPH/DIAG INJ SC/IM CPT-4: 14171 12/16/2016 THER/PROPH/DIAG INJ SC/IM CPT-4: 28582 12/16/2016 METHYLPREDNISOLONE INJECTION CPT-4: J2930 12/16/2016 CEFTRIAXONE SODIUM INJECTION CPT-4: J0696 12/15/2016 THER/PROPH/DIAG INJ SC/IM CPT-4: 14484 12/15/2016 THER/PROPH/DIAG INJ SC/IM CPT-4: 15532 12/15/2016 METHYLPREDNISOLONE INJECTION CPT-4: J2930 12/15/2016 THER/PROPH/DIAG INJ SC/IM CPT-4: 65776 12/10/2016 TRIAMCINOLONE ACET INJ NOS CPT-4: J3301 12/10/2016 DEXAMETHASONE SODIUM PHOS CPT-4: J1100 12/10/2016 FLU VACC PRSV FREE INC ANTIG 65 AND OLDER CPT-4: 80493 07/21/2016 ADMIN INFLUENZA VIRUS VAC CPT-4: G0008 07/21/2016 ROUTINE VENIPUNCTURE CPT-4: 83797 10/17/2015 COMPLETE CBC W/AUTO DIFF WBC CPT-4: 66017 10/17/2015 COMPREHEN METABOLIC PANEL CPT-4: 90296 10/17/2015 C-REACTIVE PROTEIN CPT-4: 26415 10/17/2015 FLU VACC PRSV FREE INC ANTIG 65 AND OLDER CPT-4: 01656 06/25/2015 ADMIN INFLUENZA VIRUS VAC CPT-4: G0008 06/25/2015 PRESCRIP TRANSMIT VIA ERX SY CPT-4: G8553 06/25/2015 PRESCRIP TRANSMIT VIA ERX SY CPT-4: G8553 04/11/2015 URINALYSIS NONAUTO W/O SCOPE CPT-4: 34731 02/08/2015 PRESCRIP TRANSMIT VIA ERX SY CPT-4: G8553 01/18/2015 Vital Signs Date Vital 10/10/2019 Blood Pressure 1: 146/77 Code: 8480-6 Heart Rate 1: 76 bpm Respiratory Rate: 23 bpm SpO2: 95% Temperature: 36.5 (C) / 97.7 (F) We ight: 09/29/2019 Blood Pressure 1: 126/66 Code: 8480-6 Heart Rate 1: 76 bpm Respiratory Rate: 26 bpm SpO2: 96% Temperature: 36.6 (C) / 97.8 (F) We ight: 244 lbs 09/21/2019 Blood Pressure 1: 142/80 Code: 8480-6 Heart Rate 1: 92 bpm Respiratory Rate: 28 bpm SpO2: 90% Temperature: 36.9 (C) / 98.4 (F) 09/20/2019 Blood Pressure 1: 146/82 Code: 8480-6 Heart Rate 1: 100 bpm Respiratory Rate: 24 bpm SpO2: 92% Temperature: 36.6 (C) / 97.9 (F) 09/19/2019 Blood Pressure 1: 148/70 Code: 8480-6 Heart Rate 1: 84 bpm Respiratory Rate: 26 bpm SpO2: 96% Temperature: 36.8 (C) / 98.2 (F) 09/05/2019 Blood Pressure 1: 118/62 Code: 8480-6 Heart Rate 1: 76 bpm Respiratory Rate: 24 bpm Temperature: 36.8 (C) / 98.2 (F) Weight: 248 lbs 08/29/2019 Blood Pressure 1: 132/64 Code: 8480-6 Heart Rate 1: 56 bpm Respiratory Rate: 20 bpm SpO2: 95% Temperature: 36.8 (C) / 98.2 (F) We ight: 249 lbs 05/23/2019 Blood Pressure 1: 132/80 Code: 8480-6 Heart Rate 1: 76 bpm Respiratory Rate: 20 bpm Temperature: 36.7 (C) / 98.0 (F) Weight: 248 lbs 04/06/2019 Weight: 243 lbs 03/17/2019 Blood Pressure 1: 132/62 Code: 8480-6 Heart Rate 1: 70 bpm SpO2: 90% Temperature: 36.9 (C) / 98.4 (F) Weight: 248 lbs 02/14/2019 Blood Pressure 1: 128/64 Code: 8480-6 Heart Rate 1: 68 bpm Respiratory Rate: 20 bpm SpO2: 96% Temperature: 36.6 (C) / 97.8 (F) We ight: 245 lbs 11/11/2018 Blood Pressure 1: 126/74 Code: 8480-6 Heart Rate 1: 56 bpm Respiratory Rate: 22 bpm SpO2: 95% Temperature: 36.8 (C) / 98.2 (F) We ight: 239 lbs 10/29/2018 Blood Pressure 1: 148/78 Code: 8480-6 Heart Rate 1: 84 bpm Respiratory Rate: 22 bpm SpO2: 96% Temperature: 36.8 (C) / 98.2 (F) 10/26/2018 Blood Pressure 1: 148/70 Code: 8480-6 Heart Rate 1: 58 bpm Respiratory Rate: 22 bpm SpO2: 93% Temperature: 35.6 (C) / 96.1 (F) We ight: 248 lbs 08/11/2018 Blood Pressure 1: 148/74 Code: 8480-6 BMI: 35.2 Code: 58507-7 Heart Rate 1: 64 bpm Height: 5'10" Respiratory Rate: 20 bpm SpO2: 97% Tempera ture: 36.9 (C) / 98.4 (F) Weight: 245 lbs 06/17/2018 Blood Pressure 1: 140/64 Code: 8480-6 Heart Rate 1: 64 bpm Respiratory Rate: 22 bpm SpO2: 96% Temperature: 36.3 (C) / 97.4 (F) We ight: 240 lbs 06/11/2018 Blood Pressure 1: 140/78 Code: 8480-6 Heart Rate 1: 64 bpm Respiratory Rate: 24 bpm SpO2: 100% Temperature: 36.2 (C) / 97.1 (F) We ight: 236 lbs 05/18/2018 Blood Pressure 1: 150/80 Code: 8480-6 Heart Rate 1: 78 bpm Respiratory Rate: 24 bpm SpO2: 96% Temperature: 36.6 (C) / 97.8 (F) We ight: 240 lbs 05/17/2018 Blood Pressure 1: 142/78 Code: 8480-6 Heart Rate 1: 79 bpm Respiratory Rate: 22 bpm SpO2: 92% Temperature: 36.7 (C) / 98.0 (F) We ight: 241 lbs 05/12/2018 Blood Pressure 1: 126/70 Code: 8480-6 BMI: 34.9 Code: 25246-2 Heart Rate 1: 64 bpm Height: 5'10" Respiratory Rate: 20 bpm SpO2: 96% Tempera ture: 36.8 (C) / 98.3 (F) Weight: 243 lbs 07/20/2017 Blood Pressure 1: 136/78 Code: 8480-6 Heart Rate 1: 74 bpm Height: 5'10" Respiratory Rate: 22 bpm SpO2: 98% Temperature: 36.2 (C) / 97.1 (F) Weight: 07/07/2017 Blood Pressure 1: 136/78 Code: 8480-6 BMI: 35.3 Code: 61835-1 Heart Rate 1: 72 bpm Height: 5'10" Respiratory Rate: 20 bpm SpO2: 95% Tempera ture: 36.7 (C) / 98.1 (F) Weight: 246 lbs 06/17/2017 Blood Pressure 1: 128/68 Code: 8480-6 BMI: 34.7 Code: 83100-5 Heart Rate 1: 80 bpm Height: 5'10" Respiratory Rate: 22 bpm SpO2: 94% Tempera ture: 36.7 (C) / 98.0 (F) Weight: 242 lbs 05/19/2017 Blood Pressure 1: 112/68 Code: 8480-6 BMI: 34.9 Code: 77808-6 Heart Rate 1: 84 bpm Height: 5'10" Respiratory Rate: 18 bpm SpO2: 97% Tempera ture: 36.4 (C) / 97.6 (F) Weight: 243 lbs 02/24/2017 Blood Pressure 1: 122/62 Code: 8480-6 Heart Rate 1: 66 bpm Height: 5'10" Respiratory Rate: 18 bpm SpO2: 95% Temperature: 36 .6 (C) / 97.9 (F) 01/01/2017 Blood Pressure 1: 126/58 Code: 8480-6 BMI: 34.9 Code: 31998-3 Heart Rate 1: 72 bpm Height: 5'10" Respiratory Rate: 22 bpm SpO2: 97% Tempera ture: 36.6 (C) / 97.8 (F) Weight: 243 lbs 12/22/2016 Blood Pressure 1: 108/68 Code: 8480-6 Heart Rate 1: 68 bpm Respiratory Rate: 20 bpm SpO2: 97% Temperature: 36.1 (C) / 97.0 (F) We ight: 235 lbs 12/17/2016 Blood Pressure 1: 126/70 Code: 8480-6 Heart Rate 1: 72 bpm Respiratory Rate: 22 bpm SpO2: 96% Temperature: 36.8 (C) / 98.3 (F) We ight: 238 lbs 12/16/2016 Blood Pressure 1: 118/64 Code: 8480-6 Heart Rate 1: 90 bpm Height: Respiratory Rate: 24 bpm SpO2: 97% Temperature: 36.5 (C) / 97.7 (F) We ight: 12/15/2016 Blood Pressure 1: 136/82 Code: 8480-6 Heart Rate 1: 88 bpm Respiratory Rate: 22 bpm SpO2: 94% Temperature: 36.1 (C) / 97.0 (F) We ight: 241 lbs 12/11/2016 Blood Pressure 1: 124/78 Code: 8480-6 Heart Rate 1: 10 2 bpm Height: Respiratory Rate: 20 bpm SpO2: 92% Temperature: 36.2 (C) / 97.2 (F) We ight: 12/10/2016 Blood Pressure 1: 110/76 Code: 8480-6 Heart Rate 1: 72 bpm Height: 5'10" Respiratory Rate: 18 bpm SpO2: 90% Temperature: 35.9 (C) / 96.6 (F) Weight: 07/21/2016 Blood Pressure 1: 124/68 Code: 8480-6 BMI: 35.4 Code: 43583-4 Heart Rate 1: 84 bpm Height: 5'10" Respiratory Rate: 20 bpm SpO2: 94% Tempera ture: 37.0 (C) / 98.6 (F) Weight: 247 lbs 05/29/2016 Blood Pressure 1: 112/72 Code: 8480-6 BMI: 36.0 Code: 84484-9 Heart Rate 1: 108 bpm Height: 5'10" Respiratory Rate: 24 bpm SpO2: 91% Tempera ture: 36.4 (C) / 97.6 (F) Weight: 251 lbs 03/18/2016 Blood Pressure 1: 122/64 Code: 8480-6 BMI: 35.6 Code: 03872-4 Heart Rate 1: 64 bpm Height: 5'10" Respiratory Rate: 20 bpm Temperature: 36 .3 (C) / 97.4 (F) Weight: 248 lbs 10/18/2015 Blood Pressure 1: 124/62 Code: 8480-6 Heart Rate 1: 72 bpm Height: 5'10" Respiratory Rate: 24 bpm Temperature: 36.6 (C) / 97.9 (F) We ight: 10/17/2015 Blood Pressure 1: 88/48 Code: 8480-6 Heart Rate 1: 72 bpm Respiratory Rate: 24 bpm SpO2: 97% Temperature: 36.2 (C) / 97.2 (F) 10/10/2015 Blood Pressure 1: 134/78 Code: 8480-6 BMI: 35.9 Code: 81848-6 Heart Rate 1: 72 bpm Height: 5'10" Respiratory Rate: 20 bpm Temperature: 36 .9 (C) / 98.4 (F) Weight: 250 lbs 08/30/2015 Blood Pressure 1: 128/62 Code: 8480-6 Heart Rate 1: 78 bpm Respiratory Rate: 20 bpm SpO2: 96% Temperature: 35.9 (C) / 96.6 (F) We ight: 252 lbs 06/25/2015 Blood Pressure 1: 126/70 Code: 8480-6 BMI: 36.9 Code: 89808-2 Heart Rate 1: 64 bpm Height: 5'10" Respiratory Rate: 20 bpm Temperature: 36 .6 (C) / 97.9 (F) Weight: 257 lbs 04/25/2015 Blood Pressure 1: 130/80 Code: 8480-6 BMI: 37.3 Code: 28734-0 Heart Rate 1: 64 bpm Height: 5'10" Respiratory Rate: 22 bpm Temperature: 36 .4 (C) / 97.6 (F) Weight: 260 lbs 04/11/2015 Blood Pressure 1: 148/70 Code: 8480-6 BMI: 37.3 Code: 33765-2 Heart Rate 1: 66 bpm Height: 5'10" Respiratory Rate: 18 bpm Temperature: 36 .5 (C) / 97.7 (F) Weight: 260 lbs 02/27/2015 Blood Pressure 1: 122/58 Code: 8480-6 BMI: 36.0 Code: 56975-8 Heart Rate 1: 80 bpm Height: 5'10" Respiratory Rate: 20 bpm Temperature: 36 .7 (C) / 98.1 (F) Weight: 251 lbs 02/08/2015 Blood Pressure 1: 140/68 Code: 8480-6 BMI: 36.7 Code: 45475-3 Heart Rate 1: 64 bpm Height: 5'10" Respiratory Rate: 20 bpm Temperature: 36 .9 (C) / 98.5 (F) Weight: 256 lbs 01/18/2015 Blood Pressure 1: 136/68 Code: 8480-6 BMI: 33.0 Code: 91637-1 Heart Rate 1: 60 bpm Height: 5'10" Respiratory Rate: 20 bpm Temperature: 36 .7 (C) / 98.0 (F) Weight: 230 lbs Functional Status No Functional Status data Reason For Visit Reason For Visit Effective Dates Notes lab draw 10/10/2019 follow up 10/10/2019 pt presents to clini c to discuss recent lab results. follow up 09/29/2019 Hospital fwup follow up 09/21/2019 follow up 09/20/2019 cough 09/19/2019 follow up 09/05/2019 follow up 08/29/2019 injection(s) 08/15/2019 b12 shot injection(s) 08/01/2019 b12 shot injection(s) 07/18/2019 lab draw 07/04/2019 injection(s) 06/20/2019 b12 shot injection(s) 06/06/2019 B12, Flu and Pneumov ax booster follow up 05/23/2019 injection(s) 05/18/2019 b12 shot injection(s) 05/04/2019 injection(s) 04/27/2019 injection(s) 04/20/2019 injection(s) 04/06/2019 injection(s) 03/23/2019 follow up 03/17/2019 left leg pain injection(s) 03/14/2019 b12 shot injection(s) 03/07/2019 b12 shot injection(s) 02/24/2019 B12 injection injection(s) 02/16/2019 B-12 injection follow up 02/14/2019 3mo fwup follow up 11/11/2018 cough 10/29/2018 cough 10/26/2018 follow up 08/11/2018 injection(s) 06/23/2018 here for steroid inj ection sinus congestion 06/17/2018 green/yellow product ion diarrhea 06/11/2018 grayish looking stoo ls cough 05/17/2018 coughing up yellow s putum - had a chest xray on 05-[address] [facility] pain, generalized 05/12/2018 follow up 07/20/2017 Patient has been hav ing recurrent thrush since discharged from hospital from multiple antibiotic usage. Patient has been off of oral nystatin for 2 weeks oral pain 07/07/2017 follow up 06/17/2017 painful urination 05/21/2017 follow up 05/19/2017 Hospital Discharge on 05/06/2017- Patient was brought to ER for weakness and lethargy. Patient was complaining of severe epigastric pain as well as chest pain and had new EKG changes. Cardiology and pulmonology was consulted due to patient being placed on BIPAP. Patient discharged on oral prednisone and oral antibiotics. sinus congestion 02/24/2017 follow up 01/01/2017 Hospital fwup follow up 12/22/2016 Initial treatment baker s been with Steroid Injections- currently on Lasix and Prednisone follow up 12/17/2016 follow up 12/16/2016 1 day- patient given Rocephin 1 Gram and Solu-Medrol yesterday follow up 12/15/2016 Currently on doxycyc line 100mg BID and albuterol treatments every 4 hours follow up 12/11/2016 Patient is is magnus andino being treated for recurrent asthma and bronchitis. Kenalog/Dexamethasone injection given in office yesterday and patient started on mucinex and tessalon pearles cough 12/10/2016 follow up 07/21/2016 4mo fwup sores 05/30/2016 Dressing change to r ight arm---applied bactroban ointment, telfa and tegaderm dressing laceration of the arm 05/29/2016 Patient states fel l in own home last tearing through skin and is having a hard time with healing. Patient has cleaned with peroxide daily and applying triple antbiotic ointment. follow up 03/18/2016 4mo fwup follow up 10/18/2015 low blood pressure 10/17/2015 follow up 10/10/[address] from Jul 2015 follow up 08/30/2015 Hospital follow up 06/25/2015 Requests flu shot follow up 04/25/2015 2 weeks follow up 04/11/2015 patient would like m edication changed from Cymbalta follow up 02/27/2015 edema 02/08/2015 Located in hands and legs ~generic 01/18/2015 New Patient---establ ishing visit Encounters Encounter Performer Location Codes Date ([id number]) NURSE/OUTPATIENT VISIT EST Diagnosis: Thrombocytopenia[ICD10: D69.6] Haylee KUMARI Alexis Cristy JUNBASIASHAHRZAD [employer] CPT-4: 33729 10/10/2019 ([id number]) NO CHARGE Diagnosis: Pancytopenia[ICD10: D61.818] Haylee KUMARI AlexisCristy JUNBASIASHAHRZAD [employer] CPT-4: 13332 10/10/2019 ([id number]) OFFICE/OUTPATIENT VISIT EST Diagnosis: Chronic obstructive pulmonary disease, unspecified[ICD10: J44.9] Diagnosis: Pancytopenia[ICD10: D61.818] Haylee Mast JUNFRANCISCO [employer] CPT-4: 82063 09/29/2019 ([id number]) NO CHARGE Diagnosis: Chronic obstructive pulmonary disease with (acute) exacerbation[ICD10: J44.1] Haylee KUMARI AlexisCristy JUNBASIASHAHRZAD [employer] CPT- 4: 00293 09/21/2019 ([id number]) OFFICE/OUTPATIENT VISIT EST Diagnosis: Chronic obstructive pulmonary disease with acute lower respiratory infection[ICD10: J44.0] Diagnosis: Chronic obstructive pulmonary disease with (acute) exacerbation[ICD10: J44.1] Haylee Mast JUNBASIASHAHRZAD [employer] CPT- 4: 13815 09/20/2019 ([id number]) OFFICE/OUTPATIENT VISIT EST Diagnosis: COPD with lower respiratory infection[ICD10: J44.0] Diagnosis: COPD with exacerbation[ICD10: J44.1] Haylee Mast JUNBASIASHAHRZAD [employer] CPT-4: 00500 09/19/2019 ([id number]) OFFICE/OUTPATIENT VISIT EST Diagnosis: Other fatigue[ICD10: R53.83] Diagnosis: Pancytopenia[ICD10: D61.818] Diagnosis: Other intervertebral disc degeneration, 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] Haylee Mast JUNFRANCISCO DO [facility] CPT-4: 27157 09/05/2019 ([id number]) OFFICE/OUTPATIENT VISIT EST Diagnosis: Vitamin B12 deficiency anemia, unspecified[ICD10: D51.9] Diagnosis: Other fatigue[ICD10: R53.83] Diagnosis: Unsteadiness[ICD10: R26.81] Haylee ESCOBAR DO [facility] CPT-4: 19691 08/29/2019 ([id number]) NURSE/OUTPATIENT VISIT EST Diagnosis: Vitamin B12 deficiency anemia, unspecified[ICD10: D51.9] Haylee PIPER DO [facility] CPT-4: 91646 08/15/2019 ([id number]) NURSE/OUTPATIENT VISIT EST Diagnosis: Vitamin B12 deficiency anemia, unspecified[ICD10: D51.9] Haylee PIPER DO [facility] CPT-4: 97699 08/01/2019 ([id number]) NURSE/OUTPATIENT VISIT EST Diagnosis: Vitamin B12 deficiency anemia, unspecified[ICD10: D51.9] Haylee PIPER DO [facility] CPT-4: 88835 07/18/2019 ([id number]) NURSE/OUTPATIENT VISIT EST Diagnosis: Vitamin B12 deficiency anemia, unspecified[ICD10: D51.9] Haylee PIPER DO [facility] CPT-4: 06338 07/04/2019 ([id number]) NURSE/OUTPATIENT VISIT EST Diagnosis: Vitamin B12 deficiency anemia, unspecified[ICD10: D51.9] Haylee PIPER DO [facility] CPT-4: 18326 06/20/2019 ([id number]) NURSE/OUTPATIENT VISIT EST Diagnosis: Vitamin B12 deficiency anemia, unspecified[ICD10: D51.9] Diagnosis: FLU VACCINE[ICD10: Z23] Diagnosis: PNEUMOCOCCAL VACCINE[ICD10: Z23] Haylee PIPER DO [facility] CPT-4: 72386 06/06/2019 ([id number]) OFFICE/OUTPATIENT VISIT EST Diagnosis: Other fatigue[ICD10: R53.83] Diagnosis: B12 deficiency[ICD10: E53.8] Diagnosis: Iron deficiency anemia[ICD10: D50.9] Haylee PIPER DO [facility] CPT-4: 41879 05/23/2019 ([id number]) NURSE/OUTPATIENT VISIT EST Diagnosis: Vitamin B12 deficiency anemia, unspecified[ICD10: D51.9] Haylee PIPER DO [facility] CPT-4: 21676 05/18/2019 ([id number]) NURSE/OUTPATIENT VISIT EST Diagnosis: Vitamin B12 deficiency anemia, unspecified[ICD10: D51.9] Haylee PIPER DO [facility] CPT-4: 11152 05/04/2019 ([id number]) NURSE/OUTPATIENT VISIT EST Diagnosis: Vitamin B12 deficiency anemia, unspecified[ICD10: D51.9] Haylee PIPER DO [facility] CPT-4: 54059 04/27/2019 ([id number]) NURSE/OUTPATIENT VISIT EST Diagnosis: Vitamin B12 deficiency anemia, unspecified[ICD10: D51.9] Haylee PIPER DO [facility] CPT-4: 70283 04/20/2019 ([id number]) NURSE/OUTPATIENT VISIT EST Diagnosis: Vitamin B12 deficiency anemia, unspecified[ICD10: D51.9] Haylee PIPER DO [facility] CPT-4: 76348 04/06/2019 ([id number]) NURSE/OUTPATIENT VISIT EST Diagnosis: Vitamin B12 deficiency anemia, unspecified[ICD10: D51.9] Haylee PIPER DO [facility] CPT-4: 82789 03/23/2019 ([id number]) OFFICE/OUTPATIENT VISIT EST Diagnosis: Other intervertebral disc degeneration, 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] Diagnosis: Vitamin B12 deficiency anemia, unspecified[ICD10: D51.9] Diagnosis: Vitamin D deficiency, unspecified[ICD10: E55.9] Haylee PIPER DO [facility] CPT-4: 51213 03/17/2019 ([id number]) NURSE/OUTPATIENT VISIT EST Diagnosis: Vitamin B12 deficiency anemia, unspecified[ICD10: D51.9] Hayleeania PIPER DO [facility] CPT-4: 69844 03/14/2019 ([id number]) NURSE/OUTPATIENT VISIT EST Diagnosis: Vitamin B12 deficiency anemia, unspecified[ICD10: D51.9] Haylee PIPER DO [facility] CPT-4: 34557 03/07/2019 ([id number]) NURSE/OUTPATIENT VISIT EST Diagnosis: Vitamin B12 deficiency anemia, unspecified[ICD10: D51.9] Haylee PIPER DO [facility] CPT-4: 67716 02/24/2019 ([id number]) NURSE/OUTPATIENT VISIT EST Diagnosis: Vitamin B12 deficiency anemia, unspecified[ICD10: D51.9] Haylee PIPER DO [facility] CPT-4: 18006 02/16/2019 ([id number]) OFFICE/OUTPATIENT VISIT EST Diagnosis: Other fatigue[ICD10: R53.83] Diagnosis: Chronic obstructive pulmonary disease, unspecified[ICD10: J44.9] Diagnosis: Other spondylosis with radiculopathy, 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] Diagnosis: Vitamin D deficiency, unspecified[ICD10: E55.9] Diagnosis: Hyperglycemia, unspecified[ICD10: R73.9] Haylee PIPER [facility] CPT-4: 38663 02/14/2019 ([id number]) OFFICE/OUTPATIENT VISIT EST Diagnosis: Chronic obstructive pulmonary disease, unspecified[ICD10: J44.9] Diagnosis: Hypoxemia[ICD10: R09.02] Haylee MATHEWS [facility] CPT-4: 90908 11/11/2018 ([id number]) OFFICE/OUTPATIENT VISIT EST Diagnosis: Acute bronchitis, unspecified[ICD10: J20.9] Diagnosis: Other specified respiratory disorders[ICD10: J98.8] Diagnosis: Chronic obstructive pulmonary disease with (acute) exacerbation[ICD10: J44.1] Chula Balbuena HAYLEE PIPER DO [facility] CPT- 4: 63570 10/29/2018 OFFICE/OUTPATIENT VISIT EST Diagnosis: Acute bronchitis due to other specified organisms[ICD10: J20.8] Diagnosis: Chronic obstructive pulmonary disease, unspecified[ICD10: J44.9] Chula PIPER [facility] CPT-4: 48942 10/26/2018 OFFICE/OUTPATIENT VISIT EST Diagnosis: Cervicalgia[ICD10: M54.2] Diagnosis: Other muscle spasm[ICD10: M62.838] Diagnosis: Chronic obstructive pulmonary disease, unspecified[ICD10: J44.9] Haylee PIPER [facility] CPT-4: 08789 08/11/2018 ([id number]) NURSE/OUTPATIENT VISIT EST Diagnosis: Acute bronchitis, unspecified[ICD10: J20.9] Haylee PIPER [facility] CPT-4: 65745 06/23/2018 ([id number]) OFFICE/OUTPATIENT VISIT EST Diagnosis: Acute bronchitis, unspecified[ICD10: J20.9] Columba PIPER [facility] CPT-4: 00606 06/17/2018 ([id number]) OFFICE/OUTPATIENT VISIT EST Diagnosis: Acute gastritis without bleeding[ICD10: K29.00] Columba PIPER DO [facility] CPT-4: 17573 06/11/2018 ([id number]) OFFICE/OUTPATIENT VISIT EST Diagnosis: Acute bronchitis, unspecified[ICD10: J20.9] Columba PIPER DO [facility] CPT-4: 33950 05/18/2018 ([id number]) OFFICE/OUTPATIENT VISIT EST Diagnosis: Dizziness and giddiness[ICD10: R42] Diagnosis: Acute bronchitis, unspecified[ICD10: J20.9] Diagnosis: Chronic obstructive pulmonary disease with acute lower respiratory infection[ICD10: J44.0] Columba PIPER DO [facility] CPT-4: 76744 05/17/2018 ([id number]) OFFICE/OUTPATIENT VISIT EST Diagnosis: Primary insomnia[ICD10: F51.01] Diagnosis: Other fatigue[ICD10: R53.83] 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] Diagnosis: Other spondylosis with radiculopathy, 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] Diagnosis: PNEUMOCOCCAL VACCINE[ICD10: Z23] Diagnosis: FLU VACCINE[ICD10: Z23] Haylee MARKHAM [facility] CPT-4: 79731 05/12/2018 OFFICE/OUTPATIENT VISIT EST Diagnosis: Candidal stomatitis[ICD10: B37.0] Columba PIPER DO [facility] CPT-4: 69675 07/20/2017 ([id number]) OFFICE/OUTPATIENT VISIT EST Diagnosis: Candidal stomatitis[ICD10: B37.0] Haylee PIPER DO [facility] CPT-4: 68056 07/07/2017 ([id number]) OFFICE/OUTPATIENT VISIT EST Diagnosis: Localized edema[ICD10: R60.0] Diagnosis: Anemia, unspecified[ICD10: D64.9] Diagnosis: Disorder of kidney and ureter, unspecified[ICD10: N28.9] Diagnosis: FLU VACCINE[ICD10: Z23] Haylee MARKHAM [facility] CPT-4: 90029 06/17/2017 ([id number]) OFFICE/OUTPATIENT VISIT EST Diagnosis: Dysuria[ICD10: R30.0] Haylee PIPER [facility] CPT-4: 54665 05/21/2017 OFFICE/OUTPATIENT VISIT EST Diagnosis: Encounter for other specified special examinations[ICD10: Z01.89] Diagnosis: Disorder of kidney and ureter, unspecified[ICD10: N28.9] Diagnosis: Anemia, unspecified[ICD10: D64.9] Mayra Arguello TWIN PIPER [facility] CPT-4: 92074 05/19/2017 ([id number]) OFFICE/OUTPATIENT VISIT EST Diagnosis: URI, ACUTE[ICD10: J06.9] Haylee ESPARZA [facility] CPT-4: 89414 02/24/2017 ([id number]) OFFICE/OUTPATIENT VISIT EST Diagnosis: Hypotension, unspecified[ICD10: I95.9] Diagnosis: Bradycardia, unspecified[ICD10: R00.1] Haylee Junfrancisco MCRAE Pro PIPER [facility] CPT-4: 27110 01/01/2017 ([id number]) NO CHARGE Diagnosis: Chronic obstructive pulmonary disease with (acute) exacerbation[ICD10: J44.1] Diagnosis: Pneumonia, unspecified organism[ICD10: J18.9] Susie PIPER [facility] CPT-4: 56369 12/22/2016 OFFICE/OUTPATIENT VISIT EST Diagnosis: Pneumonia, unspecified organism[ICD10: J18.9] Diagnosis: Chronic obstructive pulmonary disease with (acute) exacerbation[ICD10: J44.1] Haylee PIPER [facility] CPT- 4: 22898 12/17/2016 OFFICE/OUTPATIENT VISIT EST Diagnosis: Pneumonia, unspecified organism[ICD10: J18.9] Diagnosis: Mild intermittent asthma with (acute) exacerbation[ICD10: J45.21] Diagnosis: Chronic obstructive pulmonary disease with (acute) exacerbation[ICD10: J44.1] Haylee PIPER [facility] CPT- 4: 16168 12/16/2016 ([id number]) OFFICE/OUTPATIENT VISIT EST Diagnosis: Mild intermittent asthma with (acute) exacerbation[ICD10: J45.21] Diagnosis: Pneumonia, unspecified organism[ICD10: J18.9] Haylee PIPER [facility] CPT-4: 93892 12/15/2016 ([id number]) OFFICE/OUTPATIENT VISIT EST Diagnosis: Acute bronchitis, unspecified[ICD10: J20.9] Diagnosis: Unspecified asthma with (acute) exacerbation[ICD10: J45.901] Susie PIPER [facility] CPT-4: 00377 12/11/2016 ([id number]) OFFICE/OUTPATIENT VISIT EST Diagnosis: Acute bronchitis, unspecified[ICD10: J20.9] Diagnosis: Unspecified asthma with (acute) exacerbation[ICD10: J45.901] Susie PIPER [facility] CPT-4: 44659 12/10/2016 ([id number]) OFFICE/OUTPATIENT VISIT EST Diagnosis: Chronic obstructive pulmonary disease with (acute) exacerbation[ICD10: J44.1] Diagnosis: Other spondylosis with radiculopathy, 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] Diagnosis: Other intervertebral disc degeneration, 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] Diagnosis: FLU VACCINE[ICD10: Z23] Haylee PARKER [facility] CPT-4: 60199 07/21/2016 ([id number]) OFFICE/OUTPATIENT VISIT EST Diagnosis: Unspecified open wound of right forearm, initial encounter[ICD10: S51.801A] [facility]: 44053 05/30/2016 ([id number]) OFFICE/OUTPATIENT VISIT EST Diagnosis: Unspecified open wound of right forearm, initial encounter[ICD10: S51.801A] Susie [facility]PT[facility]: 53228 ([id number]) OFFICE/OUTPATIENT VISIT EST 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] Diagnosis: Mixed hyperlipidemia[ICD10: E78.2] Diagnosis: Other intervertebral disc degeneration, 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] [facility]: 67693 03/18/2016 OFFICE/OUTPATIENT VISIT EST Diagnosis: Hypotension, unspecified[ICD10: I95.9] Diagnosis: Dizziness and giddiness[ICD10: R42] Haylee SCHAFFERJAYESHRubi Mast [facility] CPT-4: 22232 10/18/2015 ([id number]) OFFICE/OUTPATIENT VISIT EST Diagnosis: Hypotension, unspecified[ICD10: I95.9] Haylee Mast [facility] CPT-4: 52687 10/17/2015 ([id number]) OFFICE/OUTPATIENT VISIT EST Diagnosis: Solitary pulmonary nodule[ICD10: R91.1] Diagnosis: Other spondylosis with radiculopathy, 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] Diagnosis: FLU VACCINE[ICD10: Z23] Haylee STEPHENSONLINE AlexisCristy KEITH MARKHAM [facility] CPT-4: 74520 06/25/2015 OFFICE/OUTPATIENT VISIT EST Diagnosis: DEPRESSIVE DISORDER NEC[ICD9: 311] Diagnosis: INSOMNIA NOS[ICD9: 780.52] Kat YoungGolden KUMARI AlexisCristy EMILIA URIBE [facility] CPT-4: 80996 04/25/2015 OFFICE/OUTPATIENT VISIT EST Diagnosis: DEPRESSIVE DISORDER NEC[ICD9: 311] Kat YoungNormatalataida CHUN Alex[facility]Cristy [facility] CPT-4: 21184 04/11/2015 ([id number]) OFFICE/OUTPATIENT VISIT EST Diagnosis: MALAISE AND FATIGUE[ICD9: 780.79] Diagnosis: Lumbar degenerative disc disease[ICD9: 722.52] Diagnosis: Leg weakness[ICD9: 729.89] Haylee STEPHENSONLINE AlexisCristy [facility] CPT-[facility]: 39876 02/27/2015 ([id number]) OFFICE/OUTPATIENT VISIT EST Diagnosis: Tremor[ICD9: 781.0] Diagnosis: Memory disturbance[ICD9: 780.93] Haylee STEPHENSONLINE AlexisCristy [facility] CPT-4: 53490 02/08/2015 ([id number]) OFFICE/OUTPATIENT VISIT NEW Diagnosis: INSOMNIA NOS[ICD9: 780.52] Diagnosis: Lumbar degenerative disc disease[ICD9: 722.52] Diagnosis: Leg weakness[ICD9: 729.89] Diagnosis: DEPRESSIVE DISORDER NEC[ICD9: 311] Diagnosis: Coronary artery disease[ICD9: 414.00] Diagnosis: Peripheral vascular disease[ICD9: 443.9] Haylee Junbasiashahrzad HAYLEE AlexisCristy NICOLASA [facility] CPT-4: 56818 01/18/2015 Plan of Care Planned Activity Notes Codes Status Date Visit Diagnosis Plan: Pancytopenia Discussion: Discuss ed options including hospice Patient has decided that he wants to proceed with oncology/hematology eval. so will try to arrange for that this week Once again discussed bleeding risks and reasons to seek immediate care ICD-9 : 284.19 ICD-10 : D61.818 10/10/2019 Appointment: Haylee Piper WPtel: [address] [place], [place] [phone] [place] LAB 10/10/2019 Appointment: Haylee Piper WPtel: [address] [place], [place] [phone] [place] WORK IN 10/10/2019 Patient Education: Dexilant- [employer] Coupon [id number] [email or web address]/getResource/[email or web address] Completed 10/10/2019 Care Plan: COMPREHEN METABOLIC PANEL [place] : 52167-6 Pending 10/06/2019 Care Plan: COMPLETE CBC W/AUTO DIFF WBC LOINC : 16969-0 Pending 10/06/2019 Visit Diagnosis Plan: Chronic obstructive pulmonary di sease, unspecified Discussion: Restart Symbicort Start pulmonary rehab Use oxygen q HS and prn Use SVNs with abuterol at least QID ICD-9 : 496 ICD-10 : J44.9 09/29/2019 Visit Diagnosis Plan: Pancytopenia Discussion: CBC in 1 week Once again discussed hematology consult ICD-9 : 284.19 ICD-10 : D61.818 09/29/2019 Appointment: Haylee Piper WPtel: [address] [place], [place] [phone] Hospital Follow Up 09/29/2019 Visit Diagnosis Plan: Chronic obstructiv e pulmonary disease with (acute) exacerbation Discussion: Direct admit to hospital ICD-9 : 491.21 ICD-10 : J44.1 09/21/2019 Appointment: Haylee Piper WPtel: [address] [place], [place] [phone] [place] WORK IN 09/21/2019 Visit Diagnosis Plan: Chronic obstructiv e pulmonary disease with acute lower respiratory infection Discussion: Repeat rocephin 1gm IM Reche ck tomorrow ICD-9 : 496 ICD-10 : J44.0 09/20/2019 Visit Diagnosis Plan: Chronic obstructiv e pulmonary disease with (acute) exacerbation Discussion: Continue SVNS with duoneb q4 hrs Kenalog 40mg IM today Fwup tomorrow ICD-9 : 491.21 ICD-10 : J44.1 09/20/2019 Appointment: Haylee Piper WPtel: [address] [place], [place] [phone] [place] WORK IN 09/20/2019 Visit Diagnosis Plan: COPD with exacerbation Discussio n: Solumedrol 125mg IM now SVNs with duoneb q4hrs Recheck tomorrow ICD-9 : 491.21 ICD-10 : J44.1 09/19/2019 Visit Diagnosis Plan: COPD with lower respiratory infe ction Discussion: Rocephin 1gm IM now Recheck tomorrow ICD-9 : 496 ICD-10 : J44.0 09/19/2019 Appointment: aHylee Piper WPtel: [address] [place], [place] [phone] [place] FOLLOW UP 09/19/2019 Appointment: Haylee Piper WPtel: [address] [place], [place] [phone] 09/02/19---moved him to a cancellation spot on Thursday09-05-19 (km) CANCELED 09/07/2019 Visit Diagnosis Plan: Pancytopenia Discussion: Discuss ed etiologies including recent virus, myelodysplasia, cancer Patient would like blood count rechecked in a couple of weeks and then will decide on hematology/oncology consult Discussed Bone Marrow Biopsy ICD-9 : 284.19 ICD-10 : D61.818 09/05/2019 Visit Diagnosis Plan: Other intervertebral disc degene ration, lumbar region Discussion: Decrease lyrica to 100mg po q HS for 3 days then 50mg po q HS for 3 days then stop ICD-9 : 722.52 ICD-10 : M51.36 09/05/2019 Appointment: Haylee Piper WPtel: [address] [place], [place] [phone] [place] FOLLOW UP 09/05/2019 Patient Education: Lyrica- [employer] [place] [id number] [email or web address]/sampleThinkCERCA/resources/getResource/61/[email or web address].pdf Completed 09/05/2019 Visit Diagnosis Plan: Vitamin B12 deficiency anemia, u nspecified Discussion: Check CBC, B12 level B12 shot given ICD-9 : 281.1 ICD-10 : D51.9 08/29/2019 Visit Diagnosis Plan: Unsteadiness Discussion: Decreas e lyrica to 150mg po q HS for 2 weeks then will plan on decreasing to 100mg for 1 week then 50mg for 1 week then stop and see him 2-3 weeks after he is weaned off this medication ICD-9 : 781.2 ICD-10 : R26.81 08/29/2019 Appointment: Haylee Piper WPtel: [address] [place], [place] [phone] [place] MEDICATION REVIEW 08/29/2019 Appointment: Haylee Piper WPtel: [address] [place], [place] [phone] [place] INJECTION 08/15/2019 Appointment: Haylee Piper WPtel: [address] [place] [phone] [place] INJECTION 08/01/2019 Appointment: Haylee Piper WPtel: [address] [place], [place] [phone] [place] INJECTION 07/18/2019 Appointment: Haylee Piper WPtel: [address] [place], [place] [phone] [place] INJECTION 07/04/2019 Appointment: Haylee Piper WPtel: [address] [place], [place] [phone] [place] INJECTION 06/20/2019 Appointment: Haylee Piper WPtel: [address] [place], [place] [phone] [place] INJECTION 06/06/2019 Appointment: Haylee Piper WPtel: [address] [place] [phone] [place] 06/02/19 1340---SENT REFILL OF B12 TO [facility], PATIENT WILL BE BACK THURSDAY (KM) CANCELED 06/02/2019 Visit Diagnosis Plan: Iron deficiency anemia Discussio n: Check iron level ICD-9 : 280.9 ICD-10 : D50.9 05/23/2019 Visit Diagnosis Plan: Other fatigue Discussion: Check CBC Improving with B12 shots ICD-9 : 780.79 ICD-10 : R53.83 05/23/2019 Visit Diagnosis Plan: B12 deficiency Discussion: Check B12 level ICD-9 : 266.2 ICD-10 : E53.8 05/23/2019 Appointment: Haylee Piper WPtel: [address] [place], [place] [phone] [place] FOLLOW UP 05/23/2019 Appointment: Haylee Piper WPtel: [address] [place], [place] [phone] [place] INJECTION 05/18/2019 Appointment: Haylee Piper WPtel: [address] [place] [phone] [place] INJECTION 05/04/2019 Appointment: Haylee Piper WPtel: [address] [place], [place] [phone] [place] INJECTION 04/27/2019 Appointment: Haylee Piper WPtel: [address] [place] [phone] [place] INJECTION 04/20/2019 Appointment: Haylee Piper WPtel: [address] [place], [place] [phone] [place] INJECTION 04/06/2019 Appointment: Haylee Piper WPtel: [address] [place] [phone] [place] INJECTION 03/23/2019 Visit Diagnosis Plan: Other intervertebral disc degene ration, lumbar region Discussion: Referral to Dr. Rajput for possible injection ICD-9 : 722.52 ICD-10 : M51.36 03/17/2019 Visit Diagnosis Plan: Vitamin D deficiency, unspecifie d Discussion: Continue current higher dose ICD-9 : 268.9 ICD-10 : E55.9 03/17/2019 Visit Diagnosis Plan: Vitamin B12 deficiency anemia, u nspecified Discussion: Go to B12 every 2 weeks and fwup in 2mos ICD-9 : 281.1 ICD-10 : D51.9 03/17/2019 Appointment: Haylee Piper WPtel: [address] [place] [phone] [place] lm FOLLOW UP 03/17/2019 Care Plan: Referral Order SNOMED-CT : [id number] Pending 03/17/2019 Appointment: Haylee Piper WPtel: [address] [place] [phone] [place] INJECTION 03/14/2019 Appointment: Haylee Piper WPtel: [address] [place] [phone] [place] INJECTION 03/07/2019 Appointment: Haylee Piper WPtel: [address] [place] [phone] [place] INJECTION 02/24/2019 Appointment: Haylee Piper WPtel: [address] [place] [phone] [place] INJECTION 02/16/2019 Visit Diagnosis Plan: Chronic obstructive pulmonary di sease, unspecified Discussion: Stable ICD-9 : 496 ICD-10 : J44.9 02/14/2019 Visit Diagnosis Plan: Vitamin D deficiency, unspecifie d Discussion: Check Vitamin D ICD-9 : 268.9 ICD-10 : E55.9 02/14/2019 Visit Diagnosis Plan: Hyperglycemia, unspecified Discu ssion: Check HbA1C ICD-9 : 790.29 ICD-10 : R73.9 02/14/2019 Visit Diagnosis Plan: Other spondylosis with radiculop athy, lumbosacral region Discussion: Hydrocodone rx given ICD-9 : 722.52 ICD-10 : M47.27 02/14/2019 Visit Diagnosis Plan: Other fatigue Discussion: Check CBC, TSH, Free T4, B12, Testosterone, iron/ferritin ICD-9 : 780.79 ICD-10 : R53.83 02/14/2019 Appointment: Haylee Piper WPtel: [address] [place] [address] [place] FOLLOW UP 02/14/2019 Visit Diagnosis Plan: Hypoxemia Discussion: Currently using oxygen routinely and continues to need and benefit from use--does need oxygen humidified due to nosebleeds and also recommend a 30 degree pillow wedge for bed for sleeping to help oxygenation ICD-9 : 799.02 ICD-10 : R09.02 11/11/2018 Visit Diagnosis Plan: Chronic obstructive pulmonary di sease, unspecified Discussion: Recommend pulmonary rehab Follow Up: 3 months ICD-9 : 496 ICD-10 : J44.9 11/11/2018 Appointment: Haylee Piper WPtel: [address] [place] [address] [place] FOLLOW UP 11/11/2018 Visit Diagnosis Plan: Acute bronchitis, unspecified Di scussion: Rocephin 1 gram- administered in clinic. Patient tolerated well. Prednisone taper- start today. COntinue albuterol treatments every 4 hours as needed for wheezing. Advise wearing O2 during the day as well as night time. Complete course of doxycycline started this week. GO to ED over the weekend with increased shortness of breath, development of fever, or other worsening symptoms. Patient encouraged to take Mucinex to help thin the mucus and expectorate. Patient states understanding. ICD-9 : 466.0 ICD-10 : J20.9 10/29/2018 Appointment: Chula Balbuena [address] [place], [place] [phone] ACUTE ILLNESS 10/29/2018 Patient Education: prednisone- [employer] Coupon [id number] https://www.[email or web address]/samplemd/resources/getResource/61/370n416p-[email or web address] Completed 10/29/2018 Visit Diagnosis Plan: Acute bronchitis due to other sp ecified organisms Discussion: Solu-medrol 125 mg IM administered in clinic. Patient tolerated well. Patient education concerning increase in blood sugars temporarily with steroid injection. Doxycycline 100 mg BID x 10- take with food. Advise using nebulizer for wheezing and shortness of breath. Avoid hot, dry AIR. ICD-9 : 466.0 ICD-10 : J20.8 10/26/2018 Visit Diagnosis Plan: Chronic obstructive pulmonary di sease, unspecified Discussion: Continue with Symbicort inhaler and rescue inhaler as needed. RTC with worsening symptoms, including development of fever and increased shortness of breath. Patient states understanding of all instruction. ICD-9 : 496 ICD-10 : J44.9 10/26/2018 Appointment: Chula Balbuena [address] [place], [place] [phone] [place] Schedule medicare annual wellness ACUTE ILLNESS 10/26/2018 Patient Education: doxycycline hyclate- [employer] [facility] [id number] https://[email or web address].SetJam/samplemd/resources/getResource/61/[email or web address]-[email or web address]-[email or web address] Completed 10/26/2018 Visit Diagnosis Plan: Chronic obstructive pulmonary di sease, unspecified Discussion: Stable Following routinely with Dr. Quiros Using oxygen q HS routinely and getting ongoing benefit Follow Up: 3 months ICD-9 : 496 ICD-10 : J44.9 08/11/2018 Visit Diagnosis Plan: Cervicalgia Discussion: Add bacl ofen 20gm q HS routinely with tylenol XS 2po q HS routinely the next month and see how does ICD-9 : 723.1 ICD-10 : M54.2 08/11/2018 Appointment: Haylee Pipre WPtel: [address] [place], [place] [phone] FOLLOW UP 08/11/2018 Appointment: Haylee Piper WPtel: [address] [place], [place] [phone] [place] INJECTION 06/23/2018 Patient Education: Patient Medication Summary Completed 06/23/2018 Visit Diagnosis Plan: Acute bronchitis, unspecified Di scussion: prednisone and zithromax prescribed for symptom relief. instructed to continue with rescue inhaler/albuterol every 4 hours as needed but to wait 4 hours between the rescue inhaler and albuterol. call office with worsening issues or no improvement. ICD-9 : 466.0 ICD-10 : J20.9 06/17/2018 Appointment: Columba Curtis [address] ACUTE ILLNESS 06/17/2018 Patient Education: Patient Medication Summary Completed 06/17/2018 Visit Diagnosis Plan: Acute gastritis without bleeding Discussion: cipro and flagyl prescribed to cover diverticulitis since has hx of divertulusis. cbc, cmp ordered as well due to length of symptoms. instructed to increase fluid intake to prevent dehydration with diarrhea. bland diet as well with no greasy or spicy foods to allow for bowel rest. call thursday if no improvement. go to ED with any coffee ground emesis or rectal bleeding. patient is due for repeat colonoscopy with dr. alvarado so will refer to jenny once patient improved. ICD-9 : 535.00 ICD-10 : K29.00 06/11/2018 Appointment: Columba Curtis [address] [place] [address] ACUTE ILLNESS 06/11/2018 Patient Education: Patient Medication Summary Completed 06/11/2018 Visit Diagnosis Plan: Acute bronchitis, unspecified Di scussion: much improved. lung sounds improved and oxygen levels improved. additional rocephin injection given in office today. instructed to continue with zpack. albuterol every 4 hours while awake for next 2 days and then prn. if worsening by end of week, call clinic before weekend, otherwise, call if needed. continue with deep breathing exercises and coughing to remove built up secretions. continue with oxygen during the day as well for the next 2 days. ICD-9 : 466.0 ICD-10 : J20.9 05/18/2018 Appointment: Columba Curtis [address] [place], [place] [address] FOLLOW UP 05/18/2018 Patient Education: Patient Medication Summary Completed 05/18/2018 Visit Diagnosis Plan: Dizziness and giddiness Discussi on: discussed with patient that dizziness most likely r/t start of hydrocodone and decreased oxygen to brain. instructed to wear oxygen at all times during the day until feeling better. reduce amount of hydrocodone take to reduce the risk of falls. ICD-9 : 780.4 ICD-10 : R42 05/17/2018 Visit Diagnosis Plan: Acute bronchitis, unspecified Di scussion: rocephin and solumedrol given in office due to clinical s/s. gracie prescribed to start tomorrow. instructed to use albuterol treatments every 4 hours when at home and to wear oxygen at all times. increase fluid intake. follow up tomorrow for recheck of symptoms. ICD-9 : 466.0 ICD-10 : J20.9 05/17/2018 Appointment: Columba Curtis [address] [place], [place] [id number] ACUTE ILLNESS 05/17/2018 Patient Education: Patient Medication Summary Completed 05/17/2018 Visit Diagnosis Plan: Other fatigue Discussion: Check CBC, TSH, Free T4 ICD-9 : 780.79 ICD-10 : R53.83 05/12/2018 Visit Diagnosis Plan: Atherosclerotic he art disease of [place] coronary artery without angina pectoris Discussion: Following with cardiology ICD-9 : 414.00 ICD-10 : I25.10 05/12/2018 Visit Diagnosis Plan: Other spondylosis with radiculop athy, lumbosacral region Discussion: Increaase lyrica to 150mg po BID Follow Up: 3 months ICD-9 : 722.52 ICD-10 : M47.27 05/12/2018 Visit Diagnosis Plan: Primary insomnia Discussion: [place] rubi use hydrocodone 7.5/325mg po q HS routinely to see if helps sleep/pain High dose flu and prevnar 13 given ICD-9 : 780.52 ICD-10 : F51.01 05/12/2018 Appointment: Haylee Piper WPtel: [address] [place], [place] [phone] [place] FOLLOW UP 05/12/2018 Patient Education: Patient Medication Summary Completed 05/12/2018 Appointment: Haylee Piper WPtel: [address] [place], [place] [phone] [place] CANCELED 09/21/2017 Visit Diagnosis Plan: Candidal stomatitis Discussion: diflucan ordered x 2 doses. patient sees dentist on thursday and instructed him to let him know as well. if no improvement by thursday, may have to refer to dr. rodney. educated on rinsing mouth out each time inhaler is used. hydrate throughout the day with water. ICD-9 : 112.0 ICD-10 : B37.0 07/20/2017 Appointment: Columba Curtis [address] [place] [address] ACUTE ILLNESS 07/20/2017 Patient Education: Patient Medication Summary Completed 07/20/2017 Visit Diagnosis Plan: Candidal stomatitis Discussion: Diflucan for 1 week plus Nystatin swish and spit for full 2 weeks Patient states is going to hold symbicort and spiriva until goes back to pulmonology as is doing okay with albuterol prior to bedtime and thinks these are what caused his thrush ICD-9 : 112.0 ICD-10 : B37.0 07/07/2017 Appointment: Haylee Pipertel: [address] [place] [address] FOLLOW UP 07/07/2017 Patient Education: Patient Medication Summary Completed 07/07/2017 Visit Diagnosis Plan: Localized edema Discussion: Star t lasix 20mg with potassium every other day and check Chem 7 in 2 weeks Flu shot given ICD-9 : 782.3 ICD-10 : R60.0 06/17/2017 Appointment: Haylee Piper WPtel: [address] [place] [address] FOLLOW UP 06/17/2017 Patient Education: Patient Medication Summary Completed 06/17/2017 Appointment: Haylee Piper WPtel: [address] [place] [address] UA 05/21/2017 Patient Education: Patient Medication Summary Completed 05/21/2017 Appointment: Haylee Piper WPtel: [address] [place] [address] RESCHEDULED 05/20/2017 Visit Plan: Plan labs within the week CB C, CMP to check anemia, kidney status RTC in [address] Piper and for any worsening before that time. 05/19/2017 Appointment: Mayra Arguellol: [id number] [facility] Follow Up 05/19/2017 Patient Education: Patient Medication Summary Completed 05/19/2017 Visit Plan: Supportive care. Rest, Fluid s, Tylenol/Motrin prn fever or bodyaches. Notify if worsening symptoms. 02/24/2017 Visit Diagnosis Plan: URI, ACUTE Discussion: Continue nasal spray BID Recommend claritin 10mg qam until symptoms resolve Supportive care Call if symptoms persist or worsen ICD-9 : 465.9 ICD-10 : J06.9 02/24/2017 Visit NOS Plan: Plan Notes: Supportive care. Rest, Fluids... 02/24/2017 Appointment: Haylee Piper WPtel: [address] [place], [place] [phone] [employer] WORK IN 02/24/2017 Patient Education: Patient Medication Summary Completed 02/24/2017 Visit Diagnosis Plan: Hypotension, unspecified Discuss ion: Continue lower dose of cozaar at 50mg daily Continue lower dose of atenolol at 25mg daily ICD-9 : 458.9 ICD-10 : I95.9 01/01/2017 Visit Diagnosis Plan: Bradycardia, unspecified Discuss ion: Improved with lower dose of atenolol Has fwup with Cardiology next week ICD-9 : 427.89 ICD-10 : R00.1 01/01/2017 Appointment: Haylee Piper WPtel: [address] [place], [place] [phone] Hospital Follow Up 01/01/2017 Patient Education: Patient Medication Summary Completed 01/01/2017 Visit Diagnosis Plan: Chronic obstructiv e pulmonary disease with (acute) exacerbation Discussion: Exam, vitals and patient fee ling better is reassuring Finish rxs previously given Continue nebs PRN Follow up PRN ICD-9 : 491.21 ICD-10 : J44.1 12/22/2016 Appointment: Susie Paniagua [address] [place], [place] [phone] FOLLOW UP 12/22/2016 Patient Education: Patient Medication Summary Completed 12/22/2016 Visit Diagnosis Plan: Pneumonia, unspecified organism Discussion: Finish doxycycline ICD-9 : 486 ICD-10 : J18.9 12/17/2016 Visit Diagnosis Plan: Chronic obstructiv e pulmonary disease with (acute) exacerbation Discussion: Continue SVNS with albuterol Add prednisone Daily lasix potassium until fwup Follow Up: 5 days ICD-9 : 491.21 ICD-10 : J44.1 12/17/2016 Appointment: Haylee Piper WPtel: [id number] [employer] WORK IN 12/17/2016 Patient Education: Patient Medication Summary Completed 12/17/2016 Visit Diagnosis Plan: Mild intermittent asthma with (a cute) exacerbation Discussion: Repeat solumedrol Continue SVNs with albuterol Go home and take 2 lasix and 2 potassium Recheck tomorrow ICD-9 : 466.0 ICD-10 : J45.21 12/16/2016 Visit Diagnosis Plan: Pneumonia, unspecified organism Discussion: Repeat rocephin Continue doxycycline ICD-9 : 486 ICD-10 : J18.9 12/16/2016 Appointment: Haylee Piper WPtel: [id number] WORK IN 12/16/2016 Patient Education: Patient Medication Summary Completed 12/16/2016 Visit Diagnosis Plan: Pneumonia, unspecified organism Discussion: Rocephin 1gm IM now x1 Continue doxycycline Recheck 1 day ICD-9 : 486 ICD-10 : J18.9 12/15/2016 Visit Diagnosis Plan: Mild intermittent asthma with (a cute) exacerbation Discussion: Solumedrol 125mg IM now x1 Continue SVNs with albuterol ICD-9 : 466.0 ICD-10 : J45.21 12/15/2016 Appointment: Haylee Piper WPtel: [id number] WORK IN 12/15/2016 Patient Education: Patient Medication Summary Completed 12/15/2016 Visit Diagnosis Plan: Acute bronchitis, unspecified Di scussion: Lungs do sound more coarse today and he is feeling somewhat worse Will proceed with cbc and cxr - ordered stat so to hopefully see before the end of the day Albuterol neb solution sent out as well Will call with results yanna ICD-9 : 466.0 ICD-10 : J20.9 12/11/2016 Appointment: Susie Paniagua [phone] [id number] FOLLOW UP 12/11/2016 Patient Education: Patient Medication Summary Completed 12/11/2016 Care Plan: CHEST X-RAY 2VW FRONTAL&LATL LOINC : 10248-2 Pending 12/11/2016 Care Plan: CBC Pending 12/11/2016 Visit Diagnosis Plan: Acute bronchitis, unspecified Di scussion: Injection in clinic today Continue proair Rxs as above Vicks, humidifier, etc Recheck tomorrow in clinic Will get CXR and labs if not starting to improve ICD-9 : 466.0 ICD-10 : J20.9 12/10/2016 Appointment: Susie Paniagua [phone] [id number] AC[facility]LL[facility] 12/10/2016 Patient Education: Patient Medication Summary Completed 12/10/2016 Visit Plan: Flu shot given Breo 100mcg 1 p BID for 2weeks with proair prn Notify if worsening or persists Fwup first part of October and sooner with needed 07/21/2016 Appointment: Haylee Piper WPtel: [address] [place], [place] [phone] 07/17 confirmed~sl FOLLOW UP 07/21/2016 Patient Education: Patient Medication Summary Completed 07/21/2016 Visit Plan: GAUTAM Paniagua---wear esteban ssing through weekend and then take off to leave open to air 05/30/2016 Appointment: Haylee Piper WPtel: [id number] [facility] Consult 05/30/2016 Patient Education: Patient Medication Summary Completed 05/30/2016 Visit Plan: Wound cleansed with hibiclea nse Bactroban, telfa and tegaderm dressiing applied Will recheck wound in the morning and change dressing If doing well, will let patient continue dressing changes as directed at home with close monitoring Advised he follow up at the [facility] today for a tdap since no record can be found that he is up to date on this Hold on flu shot until after tdap updated 05/29/2016 Appointment: Susie Paniagua [id number] AC[facility]LL[facility] 05/29/2016 Patient Education: Patient Medication Summary Completed 05/29/2016 Visit Plan: Continue current meds Patien t sees Dr. Eugene next week to see if would be surgical candidate 03/18/2016 Appointment: Haylee Piper WPtel: [address] [place], [place] [phone] 03/17 confirmed ~sl FOLLOW UP 03/18/2016 Patient Education: Patient Medication Summary Completed 03/18/2016 Visit Plan: Continue to hold atenolol an d monitor BP Take 1/2 of atenolol if BP greater then 150/90 8-10 oz of gatorade daily for next week and hydrate unless develops edema BP check 1week 10/18/2015 Appointment: Haylee Piper WPtel: [address] [place], [place] [phone] FOLLOW UP 10/18/2015 Patient Education: Patient Medication Summary Completed 10/18/2015 Visit Plan: Hold atenolol Hydrate, rest Refuses hospital but agrees will go to [facility] if worsens Recheck tomorrow Check CBC, CMP, CRP now 10/17/2015 Appointment: Haylee Piper WPtel: [address] [place], [place] [phone] WORK IN 10/17/2015 Patient Education: Patient Medication Summary Completed 10/17/2015 Visit Plan: Check CT scan of lungs November 18 Change proair to ventolin Fw with Dr. Kilgore at end of month 10/10/2015 Appointment: Haylee Piper WPtel: [address] [place], [place] [phone] [place] 10/09 confirmed~lb FOLLOW UP 10/10/2015 Patient Education: Patient Medication Summary Completed 10/10/2015 Visit Plan: Obtain CT scan of chest resu lts Discussed that will likely need repeat scan pending reviewing above results but we will notify him once CT scan results reviewed 08/30/2015 Appointment: Haylee Piper WPtel: [address] [place], [place] [phone] 08/29 appt confirmed cn Hospital Follow Up 08/30 Patient Education: Patient Medication Summary Completed 08/30/2015 Visit Plan: Continue dexilant and add Pe pcid 40mg q HS Discussed may need EGD Update thyroid US Flu shot given 06/25/2015 Appointment: Haylee Piper WPtel: [address] [place], [place] [phone] 06/22 confirmed ~sl FOLLOW UP 06/25/2015 Patient Education: Patient Medication Summary Completed 06/25/2015 Visit Plan: Continue Cymbalta at 120 mg PO daily Follow-up in 6 weeks Encouraged finding interest in a hobbie such as reading 04/25/2015 Appointment: Kat Carmona WPtel: [address] [place], [place] [phone] FOLLOW UP 04/25/2015 Patient Education: Patient Medication Summary Completed 04/25/2015 Visit Plan: Increase Cymbalta to 120 mg PO daily Follow-up in [address] Piper 04/11/2015 Appointment: Kat Carmona WPtel: [address] [place] [address] 04/09/2015 spoke with patient to make appointment FOLLOW UP 04/11/2015 Patient Education: Patient Medication Summary Completed 04/11/2015 Visit Plan: Continue Cymbalta, Neurontin Look out for tremor Discussed B12 supplement Given sample of Metanx 02/27/2015 Appointment: Haylee Piper WPtel: [address] [place], [place] [phone] 02/26 appt confirmed cn FOLLOW UP 02/28/20 15 Patient Education: Patient Medication Summary Completed 02/27/2015 Visit Plan: Stop trazadone Decrease jj pentin to 300mg q HS Restart ambien for sleep since we know what side effects are for him with this medicine Sees Dr. Kilgore next week and me the following week May need to totally DC neurontin if tremors persist 02/08/2015 Appointment: Haylee Piper WPtel: [phone] [id number] FO[facility] UP 02/08/2015 Patient Education: Patient Medication Summary Completed 02/08/2015 Appointment: Haylee Piper WPtel: [phone] [id number] NEW PATIENT 01/18/2015 Patient Education: Patient Medication Summary Completed 01/18/2015 Patient Education: [facility] - [employer] - [place] - 18+ - Dynamic Portal ID Completed 01/18/2015 Referral: Vernon Rajput WPtel: [facility] [address], [address] [place] Referral Appointment Requested Instructions Comment . Plan labs within the week CBC, CMP to check anemia, kidney status RTC in [address] Piper and for any worsening before that time. . Supportive care. Rest, Fluids, Tyleno l/Motrin prn fever or bodyaches. Notify if worsening symptoms. . Flu shot given Breo 100mcg 1 p BID for 2weeks with proair prn Notify if worsening or persists Fwup first part of October and sooner with needed . GAUTAM Paniagua---wear dressing thro ugh weekend and then take off to leave open to air . Wound cleansed with hibicleanse Bactroban, telfa and tegaderm dressiing applied Will recheck wound in the morning and change dressing If doing well, will let patient continue dressing changes as directed at home with close monitoring Advised he follow up at the health department today for a tdap since no record can be found that he is up to date on this Hold on flu shot until after tdap updated . Continue current meds Patient sees Dr. Eugene next week to see if would be surgical candidate . Continue to hold atenolol and monitor BP Take 1/2 of atenolol if BP greater then 150/90 8-10 oz of gatorade daily for next week and hydrate unless develops edema BP check 1week . Hold atenolol Hydrate, rest Refuses hospital but agrees will go to [facility] if worsens Recheck tomorrow Check CBC, CMP, CRP now . Check CT scan of lungs November 18 Change proair to ventolin Fwup with Dr. Kilgore at end of month . Obtain CT scan of chest results Discussed that will likely need repeat scan pending reviewing above results but we will notify him once CT scan results reviewed . Continue dexilant and add Pepcid 40mg q HS Discussed may need EGD Update thyroid US Flu shot given . Continue Cymbalta at 120 mg PO daily Follow-up in 6 weeks Encouraged finding interest in a hobbie such as reading . Increase Cymbalta to 120 mg PO daily Follow-up in [address] Piper . Continue Cymbalta, Neurontin Look out for tremor Discussed B12 supplement Given sample of Metanx . Stop trazadone Decrease gabapentin to 300mg q HS Restart ambien for sleep since we know what side effects are for him with this medicine Sees Dr. Kilgore next week and me the following week May need to totally DC neurontin if tremors persist Medical Equipment No Medical Equipment data Health Concerns Section Health Concerns data not found Goals Section Goals data not found Interventions Section Interventions data not found Health Status Evaluations/Outcomes Section Health Status Evaluations/Outcomes data not found Advance Directives No Advance Directive data
--- OUTSIDE RECORDS SUMMARY | 2019-12-16 14:24 | XMS REPORT | CCD ---
Author Author Andrea Piper D.O. 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 PP Unavailable CCM Unavailable Summary Purpose Interface Exchange Insurance Providers Payer name Policy type / Coverage type Covered green party ID Effective Begin Date Effective End Date WPS MEDICARE PART B [place] Medicare Part B [id number] Unknown [employer] [place] Medicare Part B [id number] Unknown Family history Mother Diagnosis Age At Onset Breast cancer Unknown Brother Diagnosis Age At Onset Hypertension Unknown Grandfather Diagnosis Age At Onset Myocardial infarction Unknown Social History Social History Element Codes Description Effective Dates Tobacco history SNOMED CT: 345817680 Never smoker 05/18/2015 Marital status Unknown 01/18/2015 Number of children Unknown 3 01/18/2015 Employment Unknown Retired 01/18/[address]: 874826713 Never drinks alcohol 2014 Has the patient [...] R42 10/17/2015 Active 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: [...] Start Date Stop Date Status Fill Instructions Cymbalta 60 mg capsule,delayed release RxNorm: 967758 2 Capsule (s) Oral QD 10/24/2019 04/20/2020 Active Dexilant 60 mg capsule, delayed release RxNorm: 220819 TAKE ONE CAPSULE BY MOUTH DAILY 09/19/2019 No Stop Date Active Lyrica 50 mg capsule RxNorm: 063997 2 Capsule(s) Oral Q PM for 3 days then 1 po q PM for 3 days then stop 09/05/2019 10/09/2019 Inactive Lyrica 150 mg capsule RxNorm: 683952 1 Capsule(s) Oral every ni ght at bedtime 09/05/2019 09/05/2019 Inactive metoprolol succinate ER 100 mg tablet,extended release 24 hr RxNorm: 284290 1 Tablet(s) Oral QD 08/29/2019 11/27/2019 Active hydrocodone 7.5 mg-acetaminophen 325 mg tablet RxNorm: 90696 5 1 Tablet(s) Oral Q4H as needed for pain 08/15/2019 08/21/2019 Inactive Lyrica 150 mg capsule RxNorm: 522157 TAKE ONE CAPSULE BY MOUTH TWICE A DAY 08/11/2019 09/04/2019 Inactive baclofen 20 mg tablet RxNorm: 099412 TAKE ONE TABLET BY MOUTH EVERY NIGHT AT BEDTIME FOR MUSCLE SPASMS AND TAKE ONE TABLET EVERY MORNING NEEDED 08/10/2019 No Stop Date Active Dexilant 60 mg capsule, delayed release RxNorm: 008261 TAKE ONE CAPSULE BY MOUTH DAILY 07/19/2019 09/18/2019 Inactive Cymbalta 60 mg capsule,delayed release RxNorm: 173377 T LASHAUN TWO CAPSULES BY MOUTH DAILY 07/06/2019 10/23/2019 Inactive cyanocobalamin (vit B-12) 1,000 mcg/mL injection solution Rx Norm: 331127 1 Milliliter(s) Intramuscular every two weeks 06/02/2019 06/02/2019 Inac tive cyanocobalamin (vit B-12) 1,000 mcg/mL injection solution Rx Norm: 003040 1 Milliliter(s) Intramuscular every two weeks 05/23/2019 06/01/2019 Inac tive Dexilant 60 mg capsule, delayed release RxNorm: 611331 TAKE ONE CAPSULE BY MOUTH DAILY 05/19/2019 07/17/2019 Inactive Lyrica 150 mg capsule RxNorm: 774911 1 Capsule(s) PO BID 05/11/2019 1 10/09/2018 Inactive Cymbalta 60 mg capsule,delayed release RxNorm: 667131 2 Capsule (s) PO QD 04/04/2019 07/02/2019 Inactive cyanocobalamin (vit B-12) 1,000 mcg/mL injection solution Rx Norm: 033888 1 Milliliter(s) IM QW 03/17/2019 05/22/2019 Inactive Lyrica 150 mg capsule RxNorm: 727734 TAKE ONE CAPSULE BY MOUTH TWICE A DAY 03/08/2019 03/09/2019 Inactive cyanocobalamin (vit B-12) 1,000 mcg/mL injection solution Rx Norm: 265825 1 Milliliter(s) IM QW 02/16/2019 03/16/2019 Inactive Lyrica 150 mg capsule RxNorm: 020504 TAKE ONE CAPSULE BY MOUTH TWICE A DAY 02/08/2019 03/08/2019 Inactive Dexilant 60 mg capsule, delayed release RxNorm: 331319 1 Capsul e(s) PO QD 02/08/2019 05/08/2019 Inactive Dexilant 60 mg capsule, delayed release RxNorm: 756378 TAKE ONE CAPSULE BY MOUTH DAILY 01/03/2019 02/08/2019 Inactive Lyrica 150 mg capsule RxNorm: 891190 1 Capsule(s) PO BID 01/03/2019 0 02/08/2019 Inactive Cymbalta 60 mg capsule,delayed release RxNorm: 832883 T LASHAUN TWO CAPSULES BY MOUTH DAILY 12/27/2018 04/04/2019 Inactive Dexilant 60 mg capsule, delayed release RxNorm: 505823 TAKE ONE CAPSULE BY MOUTH DAILY 12/07/2018 01/02/2019 Inactive prednisone 20 mg tablet RxNorm: 697770 Take 3 tabs by m outh for 3 days, then 2 tabs by mouth for 3 days, then 1 tab by mouth for 3 days Take 2 tabs for 10/29/2018 11/07/2018 Inactive doxycycline hyclate 100 mg tablet RxNorm: 7545102 1 Tablet(s) PO BI D 10/26/2018 11/04/2018 Inactive doxycycline hyclate 100 mg tablet RxNorm: 9622668 1 Tablet(s) PO BI D 10/26/2018 10/25/2018 Inactive Dexilant 60 mg capsule, delayed release RxNorm: 867297 TAKE ONE CAPSULE BY MOUTH DAILY 10/04/2018 12/06/2018 Inactive Lyrica 150 mg capsule RxNorm: 040569 TAKE ONE CAPSULE BY MOUTH TWICE A DAY 10/04/2018 11/02/2018 Inactive baclofen 20 mg tablet RxNorm: 883889 1 Tablet(s) PO QHS for muscle spasm and q AM prn 08/11/2018 08/09/2019 Inactive Lyrica 150 mg capsule RxNorm: 936033 1 Capsule(s) PO BID 08/06/2018 0 10/04/2018 Inactive Dexilant 60 mg capsule, delayed release RxNorm: 709634 TAKE ONE CAPSULE BY MOUTH DAILY 07/07/2018 10/03/2018 Inactive Cymbalta 60 mg capsule,delayed release RxNorm: 191086 T LASHAUN TWO CAPSULES BY MOUTH DAILY 06/28/2018 12/24/2018 Inactive prednisone 20 mg tablet RxNorm: 856343 1 Tablet(s) PO BID 06/17/2018 06/21/2018 Inactive Zithromax Z-Osman 250 mg tablet RxNorm: 702791 Tablet(s) PO take as directed 06/17/2018 08/10/2018 Inactive Flagyl 500 mg tablet RxNorm: 774012 1 Tablet(s) PO BID 06/11/2018 Inactive Cipro 250 mg tablet RxNorm: 602152 1 Tablet(s) PO BID 06/11/201805/31 Inactive atenolol 50 mg tablet RxNorm: 012430 1 Tablet(s) PO BID 05/31/2018 Inactive albuterol sulfate 2.5 mg/3 mL (0.083 %) solution for n ebulization RxNorm: 077270 3 Milliliter(s) INH Q4H as needed 05/17/2018 No Stop Date Active Zithromax Z-Osman 250 mg tablet RxNorm: 046708 Tablet(s) PO take as directed 05/17/2018 06/10/2018 Inactive Lyrica 150 mg capsule RxNorm: 608650 1 Capsule(s) PO BID 05/12/2018 1 10/07/2017 Inactive hydrocodone 7.5 mg-acetaminophen 325 mg tablet RxNorm: 82220 5 1 Tablet(s) PO Q4H as needed for pain 05/12/2018 05/18/2018 Inactive Cymbalta 60 mg capsule,delayed release RxNorm: 204172 T LASHAUN TWO CAPSULES BY MOUTH DAILY 04/01/2018 04/04/2018 Inactive Lyrica 100 mg capsule RxNorm: 976837 Capsule(s) TAKE ON E CAPSULE BY MOUTH TWICE A DAY 03/01/2018 05/11/2018 Inactive Dexilant 60 mg capsule, delayed release RxNorm: 150048 1 Capsul e(s) PO QD 01/06/2018 07/04/2018 Inactive atenolol 50 mg tablet RxNorm: 141325 1 Tablet(s) PO BID 12/30/2017 Inactive Lyrica 100 mg capsule RxNorm: 892315 Capsule(s) TAKE ON E CAPSULE BY MOUTH TWICE A DAY 12/30/2017 02/26/2018 Inactive Cymbalta 60 mg capsule,delayed release RxNorm: 540218 2 Capsule (s) PO QD 12/30/2017 03/29/2018 Inactive ProAir HFA 90 mcg/actuation aerosol inhaler RxNorm: 132695 INHALE 2 PUFFS FOUR TIMES A DAY 11/12/2017 01/25/2018 Inactive Cymbalta 60 mg capsule,delayed release RxNorm: 999154 2 Capsule (s) PO QD 10/06/2017 12/30/2017 Inactive Lyrica 100 mg capsule RxNorm: 944762 TAKE ONE CAPSULE BY MOUTH TWICE A DAY 09/28/2017 10/26/2017 Inactive Lyrica 100 mg capsule RxNorm: 389591 1 Capsule(s) PO BID 08/26/2017 0 09/28/2017 Inactive Zithromax Z-Osman 250 mg tablet RxNorm: 468349 Tablet(s) PO As Di rected 08/07/2017 05/11/2018 Inactive Diflucan 150 mg tablet RxNorm: 739826 1 Tablet(s) PO Q72H 07/20/2017 05/11/2018 Inactive nystatin 100,000 unit/mL oral suspension RxNorm: 134488 5 Milliliter(s) PO QID swish and spit for 2 weeks 07/07/2017 07/20/2017 Inactive fluconazole 100 mg tablet RxNorm: 750343 1 Tablet(s) PO QD 07/07/20 17 07/13/2017 Inactive Dexilant 60 mg capsule, delayed release RxNorm: 568703 1 Capsul e(s) PO QD 07/01/2017 01/06/2018 Inactive Cymbalta 60 mg capsule,delayed release RxNorm: 584544 2 Capsule (s) PO QD 07/01/2017 09/28/2017 Inactive atenolol 50 mg tablet RxNorm: 053290 1 Tablet(s) PO BID 06/17/2017 Inactive atenolol 50 mg tablet RxNorm: 967026 1 Tablet(s) PO BID 06/17/2017 Inactive atenolol 25 mg tablet RxNorm: 698691 1 Tablet(s) PO QD 06/16/2017 Inactive Cipro 250 mg tablet RxNorm: 164184 1 Tablet(s) PO BID 05/26/201705/02 Inactive Cipro 250 mg tablet RxNorm: 411954 1 Tablet(s) PO BID 05/26/201710/2016 Inactive Cymbalta 60 mg capsule,delayed release RxNorm: 274521 2 Capsule (s) PO QD 04/02/2017 07/01/2017 Inactive Zanaflex 4 mg tablet RxNorm: 936563 1 Tablet(s) PO BID as neede d for spasm 03/18/2017 05/11/2018 Inactive methocarbamol 750 mg tablet RxNorm: 313089 1 Tablet(s) PO TID as needed for muscle spasm 03/17/2017 03/17/2017 Inactive Cymbalta 60 mg capsule,delayed release RxNorm: 856779 T LASHAUN TWO CAPSULES BY MOUTH DAILY 01/01/2017 04/02/2017 Inactive atenolol 25 mg tablet RxNorm: 113205 1 Tablet(s) PO QD 01/01/2017 Inactive Dexilant 60 mg capsule, delayed release RxNorm: 946374 1 Capsul e(s) PO QD 12/24/2016 07/01/2017 Inactive prednisone 20 mg tablet RxNorm: 470141 1 Tablet(s) PO BID 12/17/2016 12/23/2016 Inactive doxycycline hyclate 100 mg capsule RxNorm: 0535178 1 Capsule(s) PO BID 12/11/2016 12/20/2016 Inactive doxycycline hyclate 100 mg capsule RxNorm: 3767879 1 Capsule(s) PO BID 12/11/2016 12/10/2016 Inactive albuterol sulfate 2.5 mg/3 mL (0.083 %) solution for n ebulization RxNorm: 828352 3 Milliliter(s) INH Q4H as needed 12/11/2016 05/16/2018 Inactiv e guaifenesin 400 mg tablet RxNorm: 672741 1 Tablet(s) PO QID 017 05/11/2018 Inactive Tessalon Perles 100 mg capsule RxNorm: 565033 1 Capsule (s) PO TID as needed for cough 12/10/2016 12/31/2016 Inactive ProAir HFA 90 mcg/actuation aerosol inhaler RxNorm: 593469 INHALE 2 PUFFS FOUR TIMES A DAY 08/12/2016 11/12/2017 Inactive Dexilant 60 mg capsule, delayed release RxNorm: 356506 TAKE ONE CAPSULE BY MOUTH DAILY 06/16/2016 12/24/2016 Inactive Cymbalta 60 mg capsule,delayed release RxNorm: 562524 2 Capsule (s) PO QD 06/16/2016 12/12/2016 Inactive zolpidem 10 mg tablet RxNorm: 487037 TAKE ONE TABLET BY MOUTH A T BEDTIME 03/10/2016 05/28/2016 Inactive Dexilant 60 mg capsule, delayed release RxNorm: 518864 TAKE ONE CAPSULE BY MOUTH DAILY 02/06/2016 06/04/2016 Inactive Cymbalta 60 mg capsule,delayed release RxNorm: 003022 2 Capsule (s) PO QD 11/19/2015 05/16/2016 Inactive zolpidem 10 mg tablet RxNorm: 350998 TAKE ONE TABLET BY MOUTH A T BEDTIME 10/02/2015 03/10/2016 Inactive Dexilant 60 mg capsule, delayed release RxNorm: 568566 TAKE ONE CAPSULE BY MOUTH DAILY 08/28/2015 01/24/2016 Inactive ProAir HFA 90 mcg/actuation aerosol inhaler RxNorm: 204227 2 Pu ff(s) INH QID 06/25/2015 10/22/2015 Inactive famotidine 40 mg tablet RxNorm: 289313 1 Tablet(s) PO QHS 06/25/2015 10/09/2015 Inactive Dexilant 60 mg capsule, delayed release RxNorm: 419470 1 Capsul e(s) PO QD 06/07/2015 08/27/2015 Inactive zolpidem 10 mg tablet RxNorm: 068327 TAKE ONE TABLET BY MOUTH EVERY NIGHT AT BEDTIME 06/01/2015 10/03/2015 Inactive Cymbalta 60 mg capsule,delayed release RxNorm: 225203 2 Capsule (s) PO QD 05/10/2015 11/19/2015 Inactive Cymbalta 60 mg capsule,delayed release RxNorm: 207524 2 Capsule (s) PO QD 04/11/2015 05/10/2015 Inactive zolpidem 10 mg tablet RxNorm: 244425 TAKE ONE TABLET BY MOUTH A T BEDTIME 04/06/2015 06/01/2015 Inactive zolpidem 10 mg tablet RxNorm: 665505 TAKE ONE TABLET BY MOUTH A T BEDTIME 03/05/2015 04/06/2015 Inactive zolpidem 10 mg tablet RxNorm: 895863 1 Tablet(s) PO QHS as need ed for sleep 02/27/2015 03/04/2015 Inactive Cymbalta 60 mg capsule,delayed release RxNorm: 846091 1 Capsule (s) PO QD 01/18/2015 04/10/2015 Inactive [AttnRPh: Saving clare ly/adjudicate RxGRP:[id number] RxBIN:[id number] RxPCN:HT ID#:[id number]] Trazadone 75mg Tablet RxNorm: 1-2 Tablet(s) PO QHS as ne eded for sleep 01/18/2015 02/26/2015 Inactive Singulair 10 mg tablet RxNorm: 038887 1 Tablet(s) PO QD No Start Date Active Tylenol Extra Strength 500 mg tablet RxNorm: 531779 Tablet(s) P O as needed No Start Date Active methocarbamol 750 mg tablet RxNorm: 671858 Tablet(s) PO as needed N o Start Date Active Vitamin D3 1,000 unit capsule RxNorm: 202101 1 Capsule(s) PO BID No Start Date Active aspirin 81 mg tablet RxNorm: 906596 1 Tablet(s) PO QD No Start Date Active Symbicort 160 mcg-4.5 mcg/actuation HFA aerosol inhaler RxNo rm: 6725566 2 Puff(s) INH BID No Start Date Active atorvastatin 40 mg tablet RxNorm: 190739 1 Tablet(s) PO QD No Start D ate Active potassium chloride ER 10 mEq tablet,extended release RxNorm: 676790 Tablet(s) PO as needed No Start Date Active furosemide 40 mg tablet RxNorm: 125518 Tablet(s) PO as needed No Star t Date Active Trazadone 100 100mg mg Tablet RxNorm: 1-2 Tablet(s) PO QHS No Start Date 01/17/2015 Inactive Fish Oil 1,000 mg capsule RxNorm: 1 Capsule(s) PO QD No Start Date 05/16/2018 Inactive multivitamin with iron tablet RxNorm: 1 Tablet(s) PO QD No Sta rt Date 05/16/2018 Inactive Spiriva Respimat inhalation RxNorm: 980237 inhalation No Start Date 1 09/05/2016 Inactive atenolol 25 mg tablet RxNorm: 561036 1 Tablet(s) PO BID No Start Da te 12/31/2016 Inactive Spiriva Respimat 2.5 mcg/actuation solution for inhalation R xNorm: 1257061 2 Puff(s) INH QD No Start Date 05/11/2018 Inactive Zithromax Z-Osman 250 mg tablet RxNorm: 676089 Tablet(s) PO As Di rected No Start Date 08/06/2017 Inactive Zanaflex 4 mg tablet RxNorm: 772442 1 Tablet(s) PO BID as neede d for spasm No Start Date 03/17/2017 Inactive gabapentin 800 mg tablet RxNorm: 223171 1 Tablet(s) PO TID No Start Date 03/17/2016 Inactive losartan 100 mg tablet RxNorm: 373869 1 Tablet(s) PO QD No Start Da te 12/31/2016 Inactive cyclobenzaprine 10 mg tablet RxNorm: 095036 1 Tablet(s) PO TID as needed for muscle spasm No Start Date 05/11/2018 Inactive gabapentin 300 mg capsule RxNorm: 975140 1 Capsule(s) PO TID No Sta rt Date 10/09/2015 Inactive ferrous sulfate 325 mg (65 mg iron) tablet RxNorm: 572291 1 Tab let(s) PO QD No Start Date 09/04/2019 Inactive Dexilant 60 mg capsule, delayed release RxNorm: 151108 1 Capsul e(s) PO QD No Start Date 06/06/2015 Inactive amitriptyline 25 mg tablet RxNorm: 312583 1-2 Tablet(s) PO QHS as needed for sleep --replaces ambien No Start Date 07/20/2016 Inactive hydrocodone 7.5 mg-acetaminophen 325 mg tablet RxNorm: 93740 5 1 Tablet(s) PO TID No Start Date 05/11/2018 Inactive Lyrica 75 mg capsule RxNorm: 120832 1 Capsule(s) PO BID No Start Da te 05/11/2018 Inactive gabapentin 300 mg capsule RxNorm: 178557 1 Capsule(s) PO QHS No Sta rt Date 02/07/2015 Inactive Lyrica 50 mg capsule RxNorm: 162445 1 Capsule(s) PO BID No Start Da te 07/20/2016 Inactive zolpidem 10 mg tablet RxNorm: 224602 1 Tablet(s) PO QHS No Start Da te 02/07/2015 Inactive citalopram 40 mg tablet RxNorm: 992713 1 Tablet(s) PO QD No Start D ate 01/17/2015 Inactive hydrocodone 7.5 mg-acetaminophen 325 mg tablet RxNorm: 98237 5 1 Tablet(s) PO Q6H as needed for pain No Start Date 03/17/2016 Inactive losartan 100 mg tablet RxNorm: 266693 1/2 Tablet(s) PO QD No Start Date 05/18/2017 Inactive cyanocobalamin (vit B-12) 1,000 mcg/mL injection solution Rx Norm: 608362 1 Milliliter(s) IM QW No Start Date 02/15/2019 Inactive ProAir HFA 90 mcg/actuation aerosol inhaler RxNorm: 8433931 2 Pu ff(s) INH TID No Start Date 06/24/2015 Inactive methocarbamol 750 mg tablet RxNorm: 835360 1 Tablet(s) PO TID as needed for [...] Code Result Date S ervice Location NCDF [id number] Neutrophil 27 % 10/11/2019 Unknown NCDF 2274552 BAND 0 % 10/11/2019 Unknown NCDF 5183589 Lymphocyte 59 % 10/11/2019 Unknown NCDF 3897748 Monocyte 13 % 10/11/2019 Unknown NCDF 5981991 Eosinophil 1 % 10/11/2019 Unknown NCDF 2658662 Basophil 0 % 10/11/2019 Unknown NCDF 2718347 Platelet Est Decreased 10/11/2019 Unkno wn NCDF 8044124 Large Plts Present 10/11/2019 Unknown COMPLETE BLOOD COUNT [id number] WBC 2.4 10e9/L 10/10/19 20 Unknown COMPLETE BLOOD COUNT [id number] RBC 3.15 10e12/L 2019 Unknown COMPLETE BLOOD COUNT [id number] HEMOGLOBIN 11.4 g/dL 10/10/19 20 Unknown COMPLETE BLOOD COUNT [id number] HEMATOCRIT 35.0 % 10/10/19 20 Unknown COMPLETE BLOOD COUNT [id number] MCV 111.1 fL 0 Unknown COMPLETE BLOOD COUNT [id number] MCH 36.2 pg 0 Unknown COMPLETE BLOOD COUNT 9451588 MCHC 32.6 g/dL 0 Unknown COMPLETE BLOOD COUNT [id number] PLATELET COUNT 18 10e9/L 10/01 Unknown COMPLETE BLOOD COUNT [id number] Mean Plt Volume 11.3 fL 05/2020 Unknown COMPLETE BLOOD COUNT [id number] Neut Auto 27.9 % 0 Unknown COMPLETE BLOOD COUNT [id number] Lymph Auto 58.5 % 10/10/19 20 Unknown COMPLETE BLOOD COUNT [id number] Trinity Auto 12.0 % 0 Unknown COMPLETE BLOOD COUNT [id number] RDW 14.0 % 0 Unknown COMPLETE BLOOD COUNT [id number] Eos Auto 0.4 % 0 Unknown COMPLETE BLOOD COUNT [id number] Baso Auto 1.2 % 0 Unknown COMPLETE BLOOD COUNT [id number] Neutrophil Abs 0.67 10e9/L Unknown COMPLETE BLOOD COUNT [id number] Lymphocyte Abs 1.40 10e9/L Unknown COMPLETE BLOOD COUNT [id number] Monocyte Abs 0.29 10e9/L 10/01 Unknown COMPLETE BLOOD COUNT [id number] Eosinophil Abs 0.01 10e9/L Unknown COMPLETE BLOOD COUNT [id number] RDW-SD 54.2 fL 0 Unknown COMPLETE BLOOD COUNT [id number] Basophil Abs 0.03 10e9/L 10/01 Unknown NCDF 3215854 Neutrophil 32 % 08/30/2019 Unknown NCDF 6997752 BAND 4 % 08/30/2019 Unknown NCDF 3062529 Lymphocyte 43 % 08/30/2019 Unknown NCDF 3246522 Monocyte 20 % 08/30/2019 Unknown NCDF 3979566 Eosinophil 1 % 08/30/2019 Unknown NCDF 9684688 Basophil 0 % 08/30/2019 Unknown NCDF 0928097 Platelet Est Decreased 08/30/2019 Unkno wn VITAMIN B 12 67319 VITAMIN B12 716 pg/mL 08/29/2019 Unkn own COMPLETE BLOOD COUNT [id number] WBC 3.0 10e9/L 08/29/20 19 Unknown COMPLETE BLOOD COUNT [id number] RBC 3.19 10e12/L 2018 Unknown COMPLETE BLOOD COUNT [id number] HEMOGLOBIN 11.5 g/dL 08/29/20 19 Unknown COMPLETE BLOOD COUNT [id number] HEMATOCRIT 35.6 % 08/29/20 19 Unknown COMPLETE BLOOD COUNT [id number] MCV 111.6 fL 9 Unknown COMPLETE BLOOD COUNT [id number] MCH 36.1 pg 9 Unknown COMPLETE BLOOD COUNT [id number] MCHC 32.3 g/dL 9 Unknown COMPLETE BLOOD COUNT [id number] PLATELET COUNT 79 10e9/L 08/02 Unknown COMPLETE BLOOD COUNT [id number] Mean Plt Volume 11.1 fL Unknown COMPLETE BLOOD COUNT 9359744 Neut Auto 32.7 % 9 Unknown COMPLETE BLOOD COUNT [id number] Lymph Auto 39.6 % 08/29/20 19 Unknown COMPLETE BLOOD COUNT [id number] Trinity Auto 24.4 % 9 Unknown COMPLETE BLOOD COUNT 5605384 RDW 14.0 % 9 Unknown COMPLETE BLOOD COUNT 1697251 Eos Auto 2.0 % 9 Unknown COMPLETE BLOOD COUNT [id number] Baso Auto 1.3 % 9 Unknown COMPLETE BLOOD COUNT [id number] Neutrophil Abs 0.98 10e9/L Unknown COMPLETE BLOOD COUNT 4345351 Lymphocyte Abs 1.19 10e9/L Unknown COMPLETE BLOOD COUNT [id number] Monocyte Abs 0.73 10e9/L 08/02 Unknown COMPLETE BLOOD COUNT [id number] Eosinophil Abs 0.06 10e9/L Unknown COMPLETE BLOOD COUNT [id number] RDW-SD 54.5 fL 9 Unknown COMPLETE BLOOD COUNT [id number] Basophil Abs 0.04 10e9/L 08/02 Unknown NCDF 8731240 Neutrophil 37 % 05/24/2019 Unknown NCDF 9392254 BAND 5 % 05/24/2019 Unknown NCDF 2984947 Lymphocyte 34 % 05/24/2019 Unknown NCDF 2358542 Monocyte 19 % 05/24/2019 Unknown NCDF 7664166 Eosinophil 3 % 05/24/2019 Unknown NCDF 2073061 Basophil 2 % 05/24/2019 Unknown NCDF 5866563 Platelet Est Adequate 05/24/2019 Unknow n VITAMIN B 12 17947 VITAMIN B12 788 pg/mL 05/23/2019 Unkn own IRON 54977 Iron 152 ug/dL 05/23/2019 Unknown COMPLETE BLOOD COUNT [id number] WBC 3.9 10e9/L 05/23/20 19 Unknown COMPLETE BLOOD COUNT [id number] RBC 3.61 10e12/L 2018 Unknown COMPLETE BLOOD COUNT [id number] HEMOGLOBIN 12.5 g/dL 05/23/20 19 Unknown COMPLETE BLOOD COUNT [id number] HEMATOCRIT 38.2 % 05/23/20 19 Unknown COMPLETE BLOOD COUNT [id number] MCV 105.8 fL 9 Unknown COMPLETE BLOOD COUNT [id number] MCH 34.6 pg 9 Unknown COMPLETE BLOOD COUNT 3879501 MCHC 32.7 g/dL 9 Unknown COMPLETE BLOOD COUNT [id number] PLATELET COUNT 157 10e9/L Unknown COMPLETE BLOOD COUNT 6001213 Mean Plt Volume 10.4 fL Unknown COMPLETE BLOOD COUNT 0804170 Neut Auto 35.6 % 9 Unknown COMPLETE BLOOD COUNT [id number] Lymph Auto 33.2 % 05/23/20 19 Unknown COMPLETE BLOOD COUNT 8878328 Trinity Auto 26.6 % 9 Unknown COMPLETE BLOOD COUNT 7877300 Eos Auto 1.8 % 9 Unknown COMPLETE BLOOD COUNT 7302188 RDW 14.1 % 9 Unknown COMPLETE BLOOD COUNT 1272542 Baso Auto 2.8 % 9 Unknown COMPLETE BLOOD COUNT 6712799 Neutrophil Abs 1.39 10e9/L Unknown COMPLETE BLOOD COUNT [id number] Lymphocyte Abs 1.29 10e9/L Unknown COMPLETE BLOOD COUNT [id number] Monocyte Abs 1.04 10e9/L 05/02 Unknown COMPLETE BLOOD COUNT [id number] Eosinophil Abs 0.07 10e9/L Unknown COMPLETE BLOOD COUNT [id number] RDW-SD 53.5 fL 9 Unknown COMPLETE BLOOD COUNT [id number] Basophil Abs 0.11 10e9/L 05/02 Unknown COMPLETE BLOOD COUNT [id number] WBC 5.4 10e9/L 06/11/20 18 Unknown COMPLETE BLOOD COUNT [id number] RBC 4.05 10e12/L 2017 Unknown COMPLETE BLOOD COUNT [id number] HEMOGLOBIN 13.5 g/dL 06/11/20 18 Unknown COMPLETE BLOOD COUNT [id number] HEMATOCRIT 41.3 % 06/11/20 18 Unknown COMPLETE BLOOD COUNT 1481414 MCV 102.0 fL 8 Unknown COMPLETE BLOOD COUNT [id number] MCH 33.3 pg 8 Unknown COMPLETE BLOOD COUNT [id number] MCHC 32.7 g/dL 8 Unknown COMPLETE BLOOD COUNT [id number] PLATELET COUNT 210 10e9/L 07/2018 Unknown COMPLETE BLOOD COUNT [id number] Mean Plt Volume 10.0 fL 07/2018 Unknown COMPLETE BLOOD COUNT [id number] Neut Auto 35.2 % 8 Unknown COMPLETE BLOOD COUNT [id number] Lymph Auto 29.2 % 06/11/20 18 Unknown COMPLETE BLOOD COUNT [id number] Trinity Auto 17.3 % 8 Unknown COMPLETE BLOOD COUNT 8019130 RDW 13.8 % 8 Unknown COMPLETE BLOOD COUNT [id number] Eos Auto 16.4 % 8 Unknown COMPLETE BLOOD COUNT 6649056 Baso Auto 1.9 % 8 Unknown COMPLETE BLOOD COUNT 0673308 Neutrophil Abs 1.90 10e9/L Unknown COMPLETE BLOOD COUNT [id number] Lymphocyte Abs 1.58 10e9/L Unknown COMPLETE BLOOD COUNT [id number] Monocyte Abs 0.93 10e9/L 05/31 Unknown COMPLETE BLOOD COUNT 3704158 Eosinophil Abs 0.89 10e9/L Unknown COMPLETE BLOOD COUNT [id number] Basophil Abs 0.10 10e9/L 05/31 Unknown COMPLETE BLOOD COUNT [id number] RDW-SD 50.2 fL 8 Unknown GFR CALC 5905753 GFR Non Afr Amr >60 mL/min 06/11/2018 Un known GFR CALC [id number] GFR Afr Amr >60 mL/min 06/11/2018 Unknow n COMPREHENSIVE METABOLIC 62402 AST 15 U/L 2017 Unknown COMPREHENSIVE METABOLIC 87348 ALT 18 U/L 2017 Unknown COMPREHENSIVE METABOLIC 23752 BUN 11 mg/dL 2017 Unknown COMPREHENSIVE METABOLIC 92650 ALBUMIN 3.7 g/dL 2017 Unknown COMPREHENSIVE METABOLIC 90126 CHLORIDE 102 mmol/L 06/11 Unknown COMPREHENSIVE METABOLIC 49231 Bili Total 0.6 mg/dL 06/11 Unknown COMPREHENSIVE METABOLIC 99093 ALK PHOS 98 U/L 2017 Unknown COMPREHENSIVE METABOLIC 93789 SODIUM 139 mmol/L 06/11 Unknown COMPREHENSIVE METABOLIC 61567 CREATININE 0.89 mg/dL 05/31 Unknown COMPREHENSIVE METABOLIC 28787 CALCIUM 8.7 mg/dL 2017 Unknown COMPREHENSIVE METABOLIC 82477 POTASSIUM 3.9 mmol/L 06/11 Unknown COMPREHENSIVE METABOLIC 16566 Total Protein 6.7 g/dL Unknown COMPREHENSIVE METABOLIC 74968 Glucose 112 mg/dL 2017 Unknown COMPREHENSIVE METABOLIC 51884 Bicarbonate 35 mmol/L 05/31 Unknown COMPREHENSIVE METABOLIC 47759 AGAP 2 mmol/L 2017 Unknown COMPLETE BLOOD COUNT [id number] WBC 7.4 10e9/L 10/17/19 16 Unknown COMPLETE BLOOD COUNT [id number] RBC 4.42 10e12/L 2015 Unknown COMPLETE BLOOD COUNT 5818394 HGB 13.8 g/dL 6 Unknown COMPLETE BLOOD COUNT 3195764 HCT DET 40.8 % 6 Unknown COMPLETE BLOOD COUNT 8635976 MCV 92.3 fL 6 Unknown COMPLETE BLOOD COUNT 9634456 MCH 31.2 pg 6 Unknown COMPLETE BLOOD COUNT 9379033 MCHC 33.8 g/dL 6 Unknown COMPLETE BLOOD COUNT 3595351 PLT 247 10e9/L 10/17/19 16 Unknown COMPLETE BLOOD COUNT 2349520 MPV 9.3 fL 6 Unknown COMPLETE BLOOD COUNT 2282852 YANNICK % 63.0 % 6 Unknown COMPLETE BLOOD COUNT 8887273 LY % 19.2 % 6 Unknown COMPLETE BLOOD COUNT [id number] MON % 15.8 % 6 Unknown COMPLETE BLOOD COUNT [id number] EOS % 1.1 % 6 Unknown COMPLETE BLOOD COUNT [id number] BASO % 0.9 % 6 Unknown COMPLETE BLOOD COUNT [id number] RDW 13.7 % 6 Unknown COMPLETE BLOOD COUNT [id number] ABS YANNICK 4.66 10e9/L 016 Unknown COMPLETE BLOOD COUNT [id number] ABS LYMPH 1.42 10e9/L 016 Unknown COMPLETE BLOOD COUNT [id number] ABS MONO 1.17 10e9/L 016 Unknown COMPLETE BLOOD COUNT [id number] ABS EOS 0.08 10e9/L 016 Unknown COMPLETE BLOOD COUNT [id number] ABS BASO 0.07 10e9/L 016 Unknown COMPLETE BLOOD COUNT [id number] RDW-SD 44.9 fL 6 Unknown GFR CALC [id number] GFR AA 46.0L ML/MIN 10/17/2015 Unknow n GFR CALC [id number] GFR NON-AA 37.0L ML/MIN 10/17/2015 Unkno wn C-REACTIVE PROTEIN (CRP) QUANT [id number] CRP 0.5 MG/DL 10/17/2015 Unknown COMPREHENSIVE METABOLIC [id number] AST 18 U/L 2015 Unknown COMPREHENSIVE METABOLIC [id number] ALT 27 U/L 2015 Unknown COMPREHENSIVE METABOLIC 08264 BUN 38 MG/DL 2015 Unknown COMPREHENSIVE METABOLIC 98109 ALBUMIN 3.7 GM/DL 2015 Unknown COMPREHENSIVE METABOLIC 92403 CHLORIDE 100 MMOL/L 10/17 Unknown COMPREHENSIVE METABOLIC 69555 BILI TOT 0.8 MG/DL 2015 Unknown COMPREHENSIVE METABOLIC 26873 ALK PHOS 70 U/L 2015 Unknown COMPREHENSIVE METABOLIC 83993 SODIUM 137 MMOL/L 10/17 Unknown COMPREHENSIVE METABOLIC 11336 CREATININE 1.80 MG/DL 10/01 Unknown COMPREHENSIVE METABOLIC 38764 CALCIUM 8.9 MG/DL 2015 Unknown COMPREHENSIVE METABOLIC 77425 POTASSIUM 5.1 MMOL/L 10/17 Unknown COMPREHENSIVE METABOLIC 07093 PROT TOT 6.6 GM/DL 2015 Unknown COMPREHENSIVE METABOLIC 62694 Glucose 99 MG/DL 2015 Unknown COMPREHENSIVE METABOLIC 79165 BICARB 22 MMOL/L 2015 Unknown COMPREHENSIVE METABOLIC 00821 ANION GAP 15 MMOL/L 2015 Unknown Procedures Procedure Codes Date ROUTINE VENIPUNCTURE CPT-4: 31919 10/10/2019 COMPLETE CBC W/AUTO DIFF WBC CPT-4: 28633 10/10/2019 THER/PROPH/DIAG INJ SC/IM CPT-4: 94376 09/20/2019 TRIAMCINOLONE ACET INJ NOS CPT-4: J3301 09/20/2019 CEFTRIAXONE SODIUM INJECTION CPT-4: J0696 09/20/2019 THER/PROPH/DIAG INJ SC/IM CPT-4: 51291 09/20/2019 THER/PROPH/DIAG INJ SC/IM CPT-4: 66853 09/19/2019 METHYLPREDNISOLONE INJECTION CPT-4: J2930 09/19/2019 CEFTRIAXONE SODIUM INJECTION CPT-4: J0696 09/19/2019 THER/PROPH/DIAG INJ SC/IM CPT-4: 63831 09/19/2019 ROUTINE VENIPUNCTURE CPT-4: 95640 08/29/2019 COMPLETE CBC W/AUTO DIFF WBC CPT-4: 04255 08/29/2019 VITAMIN B-12 CPT-4: 31384 08/29/2019 THER/PROPH/DIAG INJ SC/IM CPT-4: 69463 08/29/2019 THER/PROPH/DIAG INJ SC/IM CPT-4: 85638 08/15/2019 THER/PROPH/DIAG INJ SC/IM CPT-4: 40584 08/01/2019 THER/PROPH/DIAG INJ SC/IM CPT-4: 84607 07/18/2019 THER/PROPH/DIAG INJ SC/IM CPT-4: 29587 07/04/2019 THER/PROPH/DIAG INJ SC/IM CPT-4: 34360 06/20/2019 FLU VACC PRSV FREE INC ANTIG 65 AND OLDER CPT-4: 52166 06/06/2019 THER/PROPH/DIAG INJ SC/IM CPT-4: 58079 06/06/2019 FLU VACC PRSV FREE INC ANTIG 65 AND OLDER CPT-4: 31828 06/06/2019 PNEUMOCOCCAL VACC 23 GAIL IM CPT-4: 73117 06/06/2019 ADMIN INFLUENZA VIRUS VAC CPT-4: G0008 06/06/2019 ADMIN PNEUMOCOCCAL VACCINE CPT-4: G0009 06/06/2019 ROUTINE VENIPUNCTURE CPT-4: 48559 05/23/2019 COMPLETE CBC W/AUTO DIFF WBC CPT-4: 57910 05/23/2019 ASSAY OF IRON CPT-4: 55486 05/23/2019 VITAMIN B-12 CPT-4: 85258 05/23/2019 THER/PROPH/DIAG INJ SC/IM CPT-4: 14380 05/18/2019 THER/PROPH/DIAG INJ SC/IM CPT-4: 50684 05/04/2019 THER/PROPH/DIAG INJ SC/IM CPT-4: 37757 04/27/2019 THER/PROPH/DIAG INJ SC/IM CPT-4: 95340 04/20/2019 THER/PROPH/DIAG INJ SC/IM CPT-4: 35458 04/06/2019 THER/PROPH/DIAG INJ SC/IM CPT-4: 36871 03/23/2019 VITAMIN B12 INJECTION CPT-4: J3420 03/23/2019 THER/PROPH/DIAG INJ SC/IM CPT-4: 59226 03/14/2019 THER/PROPH/DIAG INJ SC/IM CPT-4: 60421 03/07/2019 THER/PROPH/DIAG INJ SC/IM CPT-4: 06796 02/24/2019 THER/PROPH/DIAG INJ SC/IM CPT-4: 49357 02/16/2019 CEFTRIAXONE SODIUM INJECTION CPT-4: J0696 10/29/2018 THER/PROPH/DIAG INJ SC/IM CPT-4: 20418 10/29/2018 THER/PROPH/DIAG INJ SC/IM CPT-4: 95694 10/26/2018 METHYLPREDNISOLONE INJECTION CPT-4: J2930 10/26/2018 THER/PROPH/DIAG INJ SC/IM CPT-4: 23465 06/23/2018 METHYLPREDNISOLONE INJECTION CPT-4: J2930 06/23/2018 COMPLETE CBC W/AUTO DIFF WBC CPT-4: 50328 06/11/2018 COMPREHEN METABOLIC PANEL CPT-4: 15740 06/11/2018 CEFTRIAXONE SODIUM INJECTION CPT-4: J0696 05/18/2018 THER/PROPH/DIAG INJ SC/IM CPT-4: 75816 05/18/2018 CEFTRIAXONE SODIUM INJECTION CPT-4: J0696 05/17/2018 THER/PROPH/DIAG INJ SC/IM CPT-4: 45098 05/17/2018 THER/PROPH/DIAG INJ SC/IM CPT-4: 48307 05/17/2018 METHYLPREDNISOLONE INJECTION CPT-4: J2930 05/17/2018 FLU VACC PRSV FREE INC ANTIG 65 AND OLDER CPT-4: 79347 05/12/2018 PNEUMOCOCCAL VACC 13 GAIL IM CPT-4: 28131 05/12/2018 ADMIN INFLUENZA VIRUS VAC CPT-4: G0008 05/12/2018 ADMIN PNEUMOCOCCAL VACCINE CPT-4: G0009 05/12/2018 FLU VACC PRSV FREE INC ANTIG 65 AND OLDER CPT-4: 56977 06/17/2017 ADMIN INFLUENZA VIRUS VAC CPT-4: G0008 06/17/2017 URINALYSIS NONAUTO W/O SCOPE CPT-4: 01831 05/21/2017 URINE CULTURE/ COLONY COUNT CPT-4: 50668 05/21/2017 CEFTRIAXONE SODIUM INJECTION CPT-4: J0696 12/16/2016 THER/PROPH/DIAG INJ SC/IM CPT-4: 32307 12/16/2016 THER/PROPH/DIAG INJ SC/IM CPT-4: 97768 12/16/2016 METHYLPREDNISOLONE INJECTION CPT-4: J2930 12/16/2016 CEFTRIAXONE SODIUM INJECTION CPT-4: J0696 12/15/2016 THER/PROPH/DIAG INJ SC/IM CPT-4: 53748 12/15/2016 THER/PROPH/DIAG INJ SC/IM CPT-4: 30101 12/15/2016 METHYLPREDNISOLONE INJECTION CPT-4: J2930 12/15/2016 THER/PROPH/DIAG INJ SC/IM CPT-4: 48567 12/10/2016 TRIAMCINOLONE ACET INJ NOS CPT-4: J3301 12/10/2016 DEXAMETHASONE SODIUM PHOS CPT-4: J1100 12/10/2016 FLU VACC PRSV FREE INC ANTIG 65 AND OLDER CPT-4: 26320 07/21/2016 ADMIN INFLUENZA VIRUS VAC CPT-4: G0008 07/21/2016 ROUTINE VENIPUNCTURE CPT-4: 50139 10/17/2015 COMPLETE CBC W/AUTO DIFF WBC CPT-4: 01182 10/17/2015 COMPREHEN METABOLIC PANEL CPT-4: 04525 10/17/2015 C-REACTIVE PROTEIN CPT-4: 16455 10/17/2015 FLU VACC PRSV FREE INC ANTIG 65 AND OLDER CPT-4: 51628 06/25/2015 ADMIN INFLUENZA VIRUS VAC CPT-4: G0008 06/25/2015 PRESCRIP TRANSMIT VIA ERX SY CPT-4: G8553 06/25/2015 PRESCRIP TRANSMIT VIA ERX SY CPT-4: G8553 04/11/2015 URINALYSIS NONAUTO W/O SCOPE CPT-4: 88778 02/08/2015 PRESCRIP TRANSMIT VIA ERX SY CPT-4: [...] 1: 148/74 Code: 8480-6 BMI: 35.2 Code: 88010-8 Heart Rate 1: 64 bpm Height: 5'10" [...] 1: 126/70 Code: 8480-6 BMI: 34.9 Code: 44110-2 Heart Rate 1: 64 bpm Height: 5'10" Respiratory Rate: 20 bpm SpO2: 96% Tempera ture: 36.8 (C) / 98.3 (F) Weight: 243 lbs 07/20/2017 Blood Pressure 1: 136/78 Code: 8480-6 Heart Rate 1: 74 bpm Height: 5'10" Respiratory Rate: 22 bpm SpO2: 98% Temperature: 36.2 (C) / 97.1 (F) Weight: 07/07/2017 Blood Pressure 1: 13678 Code: 8480-6 BMI: 35.3 Code: 97774-0 Heart Rate 1: 72 bpm Height: 5'10" Respiratory Rate: 20 bpm SpO2: 95% Tempera ture: 36.7 (C) / 98.1 (F) Weight: 246 lbs 06/17/2017 Blood Pressure 1: 128/68 Code: 8480-6 BMI: 34.7 Code: 84594-1 Heart Rate 1: 80 bpm Height: 5'10" Respiratory Rate: 22 bpm SpO2: 94% Tempera ture: 36.7 (C) / 98.0 (F) Weight: 242 lbs 05/19/2017 Blood Pressure 1: 112/68 Code: 8480-6 BMI: 34.9 Code: 28577-3 Heart Rate 1: 84 bpm Height: 5'10" Respiratory Rate: 18 bpm SpO2: 97% Tempera ture: 36.4 (C) / 97.6 (F) Weight: 243 lbs 02/24/2017 Blood Pressure 1: 122/62 Code: 8480-6 Heart Rate 1: 66 bpm Height: 5'10" Respiratory Rate: 18 bpm SpO2: 95% Temperature: 36 .6 (C) / 97.9 (F) 01/01/2017 Blood Pressure 1: 126/58 Code: 8480-6 BMI: 34.9 Code: 80134-3 Heart Rate 1: 72 bpm Height: 5'10" [...] 1: 124/68 Code: 8480-6 BMI: 35.4 Code: 78754-5 Heart Rate 1: 84 bpm Height: 5'10" Respiratory Rate: 20 bpm SpO2: 94% Tempera ture: 37.0 (C) / 98.6 (F) Weight: 247 lbs 05/29/2016 Blood Pressure 1: 112/72 Code: 8480-6 BMI: 36.0 Code: 62248-4 Heart Rate 1: 108 bpm Height: 5'10" Respiratory Rate: 24 bpm SpO2: 91% Tempera ture: 36.4 (C) / 97.6 (F) Weight: 251 lbs 03/18/2016 Blood Pressure 1: 122/64 Code: 8480-6 BMI: 35.6 Code: 24580-4 Heart Rate 1: 64 bpm Height: 5'10" [...] 1: 134/78 Code: 8480-6 BMI: 35.9 Code: 70189-1 Heart Rate 1: 72 bpm Height: 5'10" Respiratory Rate: 20 bpm Temperature: 36 .9 (C) / 98.4 (F) Weight: 250 lbs 08/30/2015 Blood Pressure 1: 128/62 Code: 8480-6 Heart Rate 1: 78 bpm Respiratory Rate: 20 bpm SpO2: 96% Temperature: 35.9 (C) / 96.6 (F) We ight: 252 lbs 06/25/2015 Blood Pressure 1: 126/70 Code: 8480-6 BMI: 36.9 Code: 64360-2 Heart Rate 1: 64 bpm Height: 5'10" Respiratory Rate: 20 bpm Temperature: 36 .6 (C) / 97.9 (F) Weight: 257 lbs 04/25/2015 Blood Pressure 1: 130/80 Code: 8480-6 BMI: 37.3 Code: 85968-4 Heart Rate 1: 64 bpm Height: 5'10" Respiratory Rate: 22 bpm Temperature: 36 .4 (C) / 97.6 (F) Weight: 260 lbs 04/11/2015 Blood Pressure 1: 148/70 Code: 8480-6 BMI: 37.3 Code: 45369-2 Heart Rate 1: 66 bpm Height: 5'10" Respiratory Rate: 18 bpm Temperature: 36 .5 (C) / 97.7 (F) Weight: 260 lbs 02/27/2015 Blood Pressure 1: 122/58 Code: 8480-6 BMI: 36.0 Code: 13416-2 Heart Rate 1: 80 bpm Height: 5'10" Respiratory Rate: 20 bpm Temperature: 36 .7 (C) / 98.1 (F) Weight: 251 lbs 02/08/2015 Blood Pressure 1: 140/68 Code: 8480-6 BMI: 36.7 Code: 58386-5 Heart Rate 1: 64 bpm Height: 5'10" Respiratory Rate: 20 bpm Temperature: 36 .9 (C) / 98.5 (F) Weight: 256 lbs 01/18/2015 Blood Pressure 1: 136/68 Code: 8480-6 BMI: 33.0 Code: 70523-2 Heart Rate 1: 60 bpm Height: 5'10" [...] visit Encounters Encounter Performer Location Codes Date () NURSE/OUTPATIENT VISIT EST Diagnosis: Thrombocytopenia[ICD10: D69.6] Haylee PIPER DO [employer] CPT-4: 02962 10/10/2019 ([id number]) NO CHARGE Diagnosis: Pancytopenia[ICD10: D61.818] Haylee PIPER DO [facility] CPT-4: 39251 10/10/2019 ([id number]) OFFICE/OUTPATIENT VISIT EST Diagnosis: Chronic obstructive pulmonary disease, unspecified[ICD10: J44.9] Diagnosis: Pancytopenia[ICD10: D61.818] Haylee PIPER DO [employer] CPT-4: 58528 09/29/2019 ([id number]) NO CHARGE Diagnosis: Chronic obstructive pulmonary disease with (acute) exacerbation[ICD10: J44.1] Haylee PIPER DO [employer] CPT- 4: 75897 09/21/2019 ([id number]) OFFICE/OUTPATIENT VISIT EST Diagnosis: Chronic obstructive pulmonary disease with acute lower respiratory infection[ICD10: J44.0] Diagnosis: Chronic obstructive pulmonary disease with (acute) exacerbation[ICD10: J44.1] Haylee PIPER DO [employer] CPT- 4: 02686 09/20/2019 ([id number]) OFFICE/OUTPATIENT VISIT EST Diagnosis: COPD with lower respiratory infection[ICD10: J44.0] Diagnosis: COPD with exacerbation[ICD10: J44.1] Haylee PIPER [employer] CPT-4: 10835 09/19/2019 ([id number]) OFFICE/OUTPATIENT VISIT EST Diagnosis: Other fatigue[ICD10: R53.83] Diagnosis: Pancytopenia[ICD10: D61.818] Diagnosis: Other intervertebral disc degeneration, 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] Haylee PIPER DO [employer] CPT-4: 43271 09/05/2019 ([id number]) OFFICE/OUTPATIENT VISIT EST Diagnosis: Vitamin B12 deficiency anemia, unspecified[ICD10: D51.9] Diagnosis: Other fatigue[ICD10: R53.83] Diagnosis: Unsteadiness[ICD10: R26.81] Haylee ESCOBAR DO [facility] CPT-4: 74580 08/29/2019 ([id number]) NURSE/OUTPATIENT VISIT EST Diagnosis: Vitamin B12 deficiency anemia, unspecified[ICD10: D51.9] Haylee PIPER DO [facility] CPT-4: 91563 08/15/2019 ([id number]) NURSE/OUTPATIENT VISIT EST Diagnosis: Vitamin B12 deficiency anemia, unspecified[ICD10: D51.9] Haylee PIPER [facility] CPT-4: 42348 08/01/2019 ([id number]) NURSE/OUTPATIENT VISIT EST Diagnosis: Vitamin B12 deficiency anemia, unspecified[ICD10: D51.9] Haylee PIPER [facility] CPT-4: 23670 07/18/2019 ([id number]) NURSE/OUTPATIENT VISIT EST Diagnosis: Vitamin B12 deficiency anemia, unspecified[ICD10: D51.9] Haylee PIPER DO [facility] CPT-4: 70306 07/04/2019 ([id number]) NURSE/OUTPATIENT VISIT EST Diagnosis: Vitamin B12 deficiency anemia, unspecified[ICD10: D51.9] Haylee PIPER DO [facility] CPT-4: 34467 06/20/2019 ([id number]) NURSE/OUTPATIENT VISIT EST Diagnosis: Vitamin B12 deficiency anemia, unspecified[ICD10: D51.9] Diagnosis: FLU VACCINE[ICD10: Z23] Diagnosis: PNEUMOCOCCAL VACCINE[ICD10: Z23] Haylee PIPER DO [facility] CPT-4: 18491 06/06/2019 ([id number]) OFFICE/OUTPATIENT VISIT EST Diagnosis: Other fatigue[ICD10: R53.83] Diagnosis: B12 deficiency[ICD10: E53.8] Diagnosis: Iron deficiency anemia[ICD10: D50.9] Haylee PIPER [facility] CPT-4: 65687 05/23/2019 ([id number]) NURSE/OUTPATIENT VISIT EST Diagnosis: Vitamin B12 deficiency anemia, unspecified[ICD10: D51.9] Haylee PIPER DO [facility] CPT-4: 33357 05/18/2019 ([id number]) NURSE/OUTPATIENT VISIT EST Diagnosis: Vitamin B12 deficiency anemia, unspecified[ICD10: D51.9] Haylee PIPER DO [facility] CPT-4: 14503 05/04/2019 ([id number]) NURSE/OUTPATIENT VISIT EST Diagnosis: Vitamin B12 deficiency anemia, unspecified[ICD10: D51.9] Haylee PIPER DO [employer] CPT-4: 92341 04/27/2019 ([id number]) NURSE/OUTPATIENT VISIT EST Diagnosis: Vitamin B12 deficiency anemia, unspecified[ICD10: D51.9] Haylee PIPER DO [employer] CPT-4: 27715 04/20/2019 ([id number]) NURSE/OUTPATIENT VISIT EST Diagnosis: Vitamin B12 deficiency anemia, unspecified[ICD10: D51.9] Haylee PIPER DO [employer] CPT-4: 65582 04/06/2019 ([id number]) NURSE/OUTPATIENT VISIT EST Diagnosis: Vitamin B12 deficiency anemia, unspecified[ICD10: D51.9] Haylee PIPER DO [employer] CPT-4: 77590 03/23/2019 ([id number]) OFFICE/OUTPATIENT VISIT EST Diagnosis: Other intervertebral disc degeneration, 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] Diagnosis: Vitamin B12 deficiency anemia, unspecified[ICD10: D51.9] Diagnosis: Vitamin D deficiency, unspecified[ICD10: E55.9] Haylee PIPER DO [facility] CPT-4: 36100 03/17/2019 ([id number]) NURSE/OUTPATIENT VISIT EST Diagnosis: Vitamin B12 deficiency anemia, unspecified[ICD10: D51.9] Haylee PIPER DO [employer] CPT-4: 73804 03/14/2019 ([id number]) NURSE/OUTPATIENT VISIT EST Diagnosis: Vitamin B12 deficiency anemia, unspecified[ICD10: D51.9] Haylee PIPER DO [facility] CPT-4: 68478 03/07/2019 ([id number]) NURSE/OUTPATIENT VISIT EST Diagnosis: Vitamin B12 deficiency anemia, unspecified[ICD10: D51.9] Haylee PIPER DO [facility] CPT-4: 33174 02/24/2019 ([id number]) NURSE/OUTPATIENT VISIT EST Diagnosis: Vitamin B12 deficiency anemia, unspecified[ICD10: D51.9] Haylee PIPER DO [facility] CPT-4: 21566 02/16/2019 ([id number]) OFFICE/OUTPATIENT VISIT EST Diagnosis: Other fatigue[ICD10: R53.83] Diagnosis: Chronic obstructive pulmonary disease, unspecified[ICD10: J44.9] Diagnosis: Other spondylosis with radiculopathy, 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] Diagnosis: Vitamin D deficiency, unspecified[ICD10: E55.9] Diagnosis: Hyperglycemia, unspecified[ICD10: R73.9] Haylee PIPER DO [facility] CPT-4: 20380 02/14/2019 ([id number]) OFFICE/OUTPATIENT VISIT EST Diagnosis: Chronic obstructive pulmonary disease, unspecified[ICD10: J44.9] Diagnosis: Hypoxemia[ICD10: R09.02] Haylee MCCOLLUM [facility] CPT-4: 43390 11/11/2018 ([id number]) OFFICE/OUTPATIENT VISIT EST Diagnosis: Acute bronchitis, unspecified[ICD10: J20.9] Diagnosis: Other specified respiratory disorders[ICD10: J98.8] Diagnosis: Chronic obstructive pulmonary disease with (acute) exacerbation[ICD10: J44.1] Chula Sree PIPER DO [facility] CPT- 4: 79431 10/29/2018 OFFICE/OUTPATIENT VISIT EST Diagnosis: Acute bronchitis due to other specified organisms[ICD10: J20.8] Diagnosis: Chronic obstructive pulmonary disease, unspecified[ICD10: J44.9] Chula Sree PIPER [employer] [facility] CPT-4: 57023 10/26/2018 OFFICE/OUTPATIENT VISIT EST Diagnosis: Cervicalgia[ICD10: M54.2] Diagnosis: Other muscle spasm[ICD10: M62.838] Diagnosis: Chronic obstructive pulmonary disease, unspecified[ICD10: J44.9] Haylee PIPER DO [facility] CPT-4: 19942 08/11/2018 ([id number]) NURSE/OUTPATIENT VISIT EST Diagnosis: Acute bronchitis, unspecified[ICD10: J20.9] Haylee PIPER DO [facility] CPT-4: 12580 06/23/2018 ([id number]) OFFICE/OUTPATIENT VISIT EST Diagnosis: Acute bronchitis, unspecified[ICD10: J20.9] Columba PIPER DO [facility] CPT-4: 23354 06/17/2018 ([id number]) OFFICE/OUTPATIENT VISIT EST Diagnosis: Acute gastritis without bleeding[ICD10: K29.00] Columba PIPER DO [facility] CPT-4: 52080 06/11/2018 ([id number]) OFFICE/OUTPATIENT VISIT EST Diagnosis: Acute bronchitis, unspecified[ICD10: J20.9] Columba PIPER DO [facility] CPT-4: 09016 05/18/2018 ([id number]) OFFICE/OUTPATIENT VISIT EST Diagnosis: Dizziness and giddiness[ICD10: R42] Diagnosis: Acute bronchitis, unspecified[ICD10: J20.9] Diagnosis: Chronic obstructive pulmonary disease with acute lower respiratory infection[ICD10: J44.0] Columba PIPER DO [facility] CPT-4: 68005 05/17/2018 ([id number]) OFFICE/OUTPATIENT VISIT EST Diagnosis: Primary insomnia[ICD10: F51.01] Diagnosis: Other fatigue[ICD10: R53.83] 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] Diagnosis: Other spondylosis with radiculopathy, 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] Diagnosis: PNEUMOCOCCAL VACCINE[ICD10: Z23] Diagnosis: FLU VACCINE[ICD10: Z23] Haylee MARKHAM [facility] CPT-4: 08052 05/12/2018 OFFICE/OUTPATIENT VISIT EST Diagnosis: Candidal stomatitis[ICD10: B37.0] Columba PIPER DO [facility] CPT-4: 12366 07/20/2017 ([id number]) OFFICE/OUTPATIENT VISIT EST Diagnosis: Candidal stomatitis[ICD10: B37.0] Haylee PIPER [facility] CPT-4: 75411 07/07/2017 ([id number]) OFFICE/OUTPATIENT VISIT EST Diagnosis: Localized edema[ICD10: R60.0] Diagnosis: Anemia, unspecified[ICD10: D64.9] Diagnosis: Disorder of kidney and ureter, unspecified[ICD10: N28.9] Diagnosis: FLU VACCINE[ICD10: Z23] Haylee PARKER [facility] CPT-4: 62100 06/17/2017 ([id number]) OFFICE/OUTPATIENT VISIT EST Diagnosis: Dysuria[ICD10: R30.0] Haylee PIPER [facility] CPT-4: 94309 05/21/2017 OFFICE/OUTPATIENT VISIT EST Diagnosis: Encounter for other specified special examinations[ICD10: Z01.89] Diagnosis: Disorder of kidney and ureter, unspecified[ICD10: N28.9] Diagnosis: Anemia, unspecified[ICD10: D64.9] May[facility]guello [facility]: 60376 05/19/2017 ([id number]) OFFICE/OUTPATIENT VISIT EST Diagnosis: URI, ACUTE[ICD10: J06.9] Haylee ESPARZA [facility] CPT-4: 17712 02/24/2017 ([id number]) OFFICE/OUTPATIENT VISIT EST Diagnosis: Hypotension, unspecified[ICD10: I95.9] Diagnosis: Bradycardia, unspecified[ICD10: R00.1] Haylee BARAHONANDSHAHRZAD [facility] CPT-4: 09690 01/01/2017 ([id number]) NO CHARGE Diagnosis: Chronic obstructive pulmonary disease with (acute) exacerbation[ICD10: J44.1] Diagnosis: Pneumonia, unspecified organism[ICD10: J18.9] Susie PIPER [facility] CPT-4: 62785 12/22/2016 OFFICE/OUTPATIENT VISIT EST Diagnosis: Pneumonia, unspecified organism[ICD10: J18.9] Diagnosis: Chronic obstructive pulmonary disease with (acute) exacerbation[ICD10: J44.1] Haylee PIPER [facility] CPT- 4: 70417 12/17/2016 OFFICE/OUTPATIENT VISIT EST Diagnosis: Pneumonia, unspecified organism[ICD10: J18.9] Diagnosis: Mild intermittent asthma with (acute) exacerbation[ICD10: J45.21] Diagnosis: Chronic obstructive pulmonary disease with (acute) exacerbation[ICD10: J44.1] [facility]: 81205 12/16/2016 ([id number]) OFFICE/OUTPATIENT VISIT EST Diagnosis: Mild intermittent asthma with (acute) exacerbation[ICD10: J45.21] Diagnosis: Pneumonia, unspecified organism[ICD10: J18.9] [facility]: 62833 12/15/2016 ([id number]) OFFICE/OUTPATIENT VISIT EST Diagnosis: Acute bronchitis, unspecified[ICD10: J20.9] Diagnosis: Unspecified asthma with (acute) exacerbation[ICD10: J45.901] [facility]: 62346 12/11/2016 ([id number]) OFFICE/OUTPATIENT VISIT EST Diagnosis: Acute bronchitis, unspecified[ICD10: J20.9] Diagnosis: Unspecified asthma with (acute) exacerbation[ICD10: J45.901] [facility]: 19091 12/10/2016 ([id number]) OFFICE/OUTPATIENT VISIT EST Diagnosis: Chronic obstructive pulmonary disease with (acute) exacerbation[ICD10: J44.1] Diagnosis: Other spondylosis with radiculopathy, 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] Diagnosis: Other intervertebral disc degeneration, 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] Diagnosis: FLU VACCINE[ICD10: Z23] Haylee MARKHAM [facility] CPT-4: 93682 07/21/2016 ([id number]) OFFICE/OUTPATIENT VISIT EST Diagnosis: Unspecified open wound of right forearm, initial encounter[ICD10: S51.801A] Haylee PIPER [facility] CPT-4: 35946 05/30/2016 ([id number]) OFFICE/OUTPATIENT VISIT EST Diagnosis: Unspecified open wound of right forearm, initial encounter[ICD10: S51.801A] Susie PIPER [facility] CPT-4: 62079 ([id number]) OFFICE/OUTPATIENT VISIT EST 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] Diagnosis: Mixed hyperlipidemia[ICD10: E78.2] Diagnosis: Other intervertebral disc degeneration, 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] Haylee Jungreg HAYLEE [facility]: 92068 03/18/2016 OFFICE/OUTPATIENT VISIT EST Diagnosis: Hypotension, unspecified[ICD10: I95.9] Diagnosis: Dizziness and giddiness[ICD10: R42] Haylee STACY Pro [facility] CPT-[facility]: 55554 10/18/2015 ([id number]) OFFICE/OUTPATIENT VISIT EST Diagnosis: Hypotension, unspecified[ICD10: I95.9] Haylee MCRAE Pro [facility] CPT-[facility]: 46147 10/17/2015 ([id number]) OFFICE/OUTPATIENT VISIT EST Diagnosis: Solitary pulmonary nodule[ICD10: R91.1] Diagnosis: Other spondylosis with radiculopathy, 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] Diagnosis: Other amnesia[ICD10: R41.3] Haylee KUMARI AlexisCristy Evelina [facility] CPT-4: 36024 10/10/2015 ([id number]) OFFICE/OUTPATIENT VISIT EST Diagnosis: Pneumonia, unspecified organism[ICD10: J18.9] Diagnosis: Solitary pulmonary nodule[ICD10: R91.1] Haylee SANCHEZ AlexisCristy KEITH [employer] [facility] CPT-4: 83297 08/30/2015 ([id number]) OFFICE/OUTPATIENT VISIT EST Diagnosis: Gastro-esophageal reflux disease with esophagitis[ICD10: K21.0] 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] Diagnosis: FLU VACCINE[ICD10: Z23] Haylee PARKER [employer] [facility] CPT-4: 21664 06/25/2015 OFFICE/OUTPATIENT VISIT EST Diagnosis: DEPRESSIVE DISORDER NEC[ICD9: 311] Diagnosis: INSOMNIA NOS[ICD9: 780.52] Kat YoungNormaumair STEPHENSONLINE [employer] [facility] CPT-4: 08053 04/25/2015 OFFICE/OUTPATIENT VISIT EST Diagnosis: DEPRESSIVE DISORDER NEC[ICD9: 311] Kat YoungNormaumair PARKER [employer] [facility] CPT-4: 81565 04/11/2015 ([id number]) OFFICE/OUTPATIENT VISIT EST Diagnosis: MALAISE AND FATIGUE[ICD9: 780.79] Diagnosis: Lumbar degenerative disc disease[ICD9: 722.52] Diagnosis: Leg weakness[ICD9: 729.89] Haylee ROLLINSER [employer] [facility] CPT-4: 53758 02/27/2015 ([id number]) OFFICE/OUTPATIENT VISIT EST Diagnosis: Tremor[ICD9: 781.0] Diagnosis: Memory disturbance[ICD9: 780.93] Haylee PARKER [employer] [facility] CPT-4: 13397 02/08/2015 ([id number]) OFFICE/OUTPATIENT VISIT NEW Diagnosis: INSOMNIA NOS[ICD9: 780.52] Diagnosis: Lumbar degenerative disc disease[ICD9: 722.52] Diagnosis: Leg weakness[ICD9: 729.89] Diagnosis: DEPRESSIVE DISORDER NEC[ICD9: 311] Diagnosis: Coronary artery disease[ICD9: 414.00] Diagnosis: Peripheral vascular disease[ICD9: 443.9] Haylee Barahonabasiashahrzad STEPHENSONHAYLEE Pro PARKER [employer] [facility] CPT-4: 53689 01/18/2015 Plan of Care Planned Activity Notes Codes Status Date Visit Diagnosis Plan: Pancytopenia Discussion: Discuss ed options including hospice Patient has decided that he wants to proceed with oncology/hematology eval. so will try to arrange for that this week Once again discussed bleeding risks and reasons to seek immediate care ICD-9 : 284.19 ICD-10 : D61.818 10/10/2019 Appointment: Haylee Piper WPtel: [address] [place], [place] [phone] LAB 10/10/2019 Appointment: Haylee Piper WPtel: [address] [place], [place] [phone] WORK IN 10/10/2019 Patient Education: [employer]- [employer] Coupon [id number] [email or web address] Completed 10/10/2019 Care Plan: COMPREHEN METABOLIC PANEL [place]UB [place] : 19800-3 Pending 10/06/2019 Care Plan: COMPLETE CBC W/AUTO DIFF WBC LOINC : 98005-8 Pending 10/06/2019 Visit Diagnosis Plan: Chronic obstructive pulmonary di sease, unspecified Discussion: Restart Symbicort Start pulmonary rehab Use oxygen q HS and prn Use SVNs with abuterol at least QID ICD-9 : 496 ICD-10 : J44.9 09/29/2019 Visit Diagnosis Plan: Pancytopenia Discussion: CBC in 1 week Once again discussed hematology consult ICD-9 : 284.19 ICD-10 : D61.818 09/29/2019 Appointment: Haylee Piper WPtel: 67 [address] [place], [place] [id number] Follow Up 09/29/2019 Visit Diagnosis Plan: Chronic obstructiv e pulmonary disease with (acute) exacerbation Discussion: Direct admit to hospital ICD-9 : 491.21 ICD-10 : J44.1 09/21/2019 Appointment: Haylee Piper WPtel: [address] [place], [place] [phone] WORK IN 09/21/2019 Visit Diagnosis Plan: Chronic [...] : J44.1 09/20/2019 Appointment: Haylee Piper WPtel: [address] [place], [place] [phone] [place] WORK IN 09/20/2019 Visit Diagnosis Plan: COPD with exacerbation Discussio n: Solumedrol 125mg IM now SVNs with duoneb q4hrs Recheck tomorrow ICD-9 : 491.21 ICD-10 : J44.1 09/19/2019 Visit Diagnosis Plan: COPD with lower respiratory infe ction Discussion: Rocephin 1gm IM now Recheck tomorrow ICD-9 : 496 ICD-10 : J44.0 09/19/2019 Appointment: Haylee Piper WPtel: [address] [place], [place] [phone] FOLLOW UP 09/19/2019 Appointment: Haylee Pipertel: [address] [place], [place] [phone] 09/02/19---moved him to a cancellation spot on [...] : M51.36 09/05/2019 Appointment: Haylee Piper WPtel: [address] [place], [place] [phone] [place] FOLLOW UP 09/05/2019 Patient Education: Lyrica- OptimizeRX Coupon [id number] [email or web address]/sampleKiro'[email or web address] Games/resources/getResource/[email or web address] Completed 09/05/2019 Visit Diagnosis Plan: Vitamin B12 [...] : R26.81 08/29/2019 Appointment: Haylee Piper WPtel: [address] [place], [place] [phone] [place] MEDICATION REVIEW 08/29/2019 Appointment: Haylee Piper WPtel: [address] [place], [place] [phone] [place] INJECTION 08/15/2019 Appointment: Haylee Piper WPtel: [address] [place], [place] [phone] [place] INJECTION 08/01/2019 Appointment: Haylee Piper WPtel: [address] [place], [place] [phone] [place] INJECTION 07/18/2019 Appointment: Haylee Piper WPtel: [address] [place], [place] [phone] [place] INJECTION 07/04/2019 Appointment: Haylee Piper WPtel: [address] [place], [place] [phone] [place] INJECTION 06/20/2019 Appointment: Haylee Piper WPtel: [address] [place], [place] [phone] [place] INJECTION 06/06/2019 Appointment: Haylee Piper WPtel: [address] [place], [place] [phone] [place] 06/02/19 1340---SENT REFILL OF B12 TO [facility], PATIENT WILL BE BACK THURSDAY (KM) CANCELED [...] : E53.8 05/23/2019 Appointment: Haylee Piper WPtel: [address] [place], [place] [phone] [place] FOLLOW UP 05/23/2019 Appointment: Haylee Piper WPtel: [address] [place], [place] [phone] [place] INJECTION 05/18/2019 Appointment: Haylee Piper WPtel: [address] [place] [phone] [place] INJECTION 05/04/2019 Appointment: Haylee Piper WPtel: [address] [place] [phone] [place] INJECTION 04/27/2019 Appointment: Haylee Piper WPtel: [address] [place] [phone] [place] INJECTION 04/20/2019 Appointment: Haylee Piper WPtel: [address] [place] [phone] [place] INJECTION 04/06/2019 Appointment: Haylee Piper WPtel: [address] [place], [place] [phone] [place] INJECTION 03/23/2019 Visit Diagnosis Plan: Other [...] : D51.9 03/17/2019 Appointment: Haylee Piper WPtel: [address] [place] [address] [place] lm FOLLOW UP 03/17/2019 Care Plan: Referral Order SNOMED-CT : [id number] Pending 03/17/2019 Appointment: Haylee Piper WPtel: [address] [place], [place] [phone] [place] INJECTION 03/14/2019 Appointment: Haylee Piper WPtel: [address] [place], [place] [phone] [place] INJECTION 03/07/2019 Appointment: Haylee Piper WPtel: [address] [place], [place] [phone] [place] INJECTION 02/24/2019 Appointment: Haylee Piper WPtel: [address] [place] [address] [place] INJECTION 02/16/2019 Visit Diagnosis Plan: Chronic [...] : R53.83 02/14/2019 Appointment: Haylee Piper WPtel: [address] [place] [address] [place] FOLLOW UP 02/14/2019 Visit Diagnosis Plan: [...] : J44.9 11/11/2018 Appointment: Haylee Piper WPtel: [address] [place] [address] FOLLOW UP 11/11/2018 Visit Diagnosis Plan: Acute [...] ICD-10 : J20.9 10/29/2018 Appointment: Chula Balbuena [address] [place] [address] ACUTE ILLNESS 10/29/2018 Patient Education: prednisone- OptimizeRX Coupon [id number] [email or web address]://www.[email or web address]/samplemd/resources/getResource/61/[email or web address] Completed 10/29/2018 Visit Diagnosis Plan: Acute bronchitis [...] ICD-10 : J44.9 10/26/2018 Appointment: Chula Balbuena [address] [place] [place] Schedule medicare annual wellness ACUTE ILLNESS 10/26/2018 Patient Education: doxycycline hyclate- OptimizeRX Cou brooke [id number] https://[email or web address]/Cittadinomd/resources/getResource/61/[email or web address] Completed 10/26/2018 Visit Diagnosis Plan: Chronic obstructive [...] 723.1 ICD-10 : M54.2 08/11/2018 Appointment: Haylee Piper WPtel: [address] [place], [place] [phone] FOLLOW UP 08/11/2018 Appointment: Haylee Piper WPtel: [address] [place], [place] [phone] [place] INJECTION 06/23/2018 Patient Education: Patient Medication [...] : J20.9 06/17/2018 Appointment: Columba Curtis [address] [phone] ACUTE ILLNESS 06/17/2018 Patient Education: Patient Medication [...] ICD-10 : K29.00 06/11/2018 Appointment: Columba Curtis [address] [place], [place] [address] ACUTE ILLNESS 06/11/2018 Patient Education: Patient Medication [...] ICD-10 : J20.9 05/18/2018 Appointment: Columba Curtis [address] [facility] FOLLOW UP 05/18/2018 Patient Education: Patient Medication [...] ICD-10 : J20.9 05/17/2018 Appointment: Columba Curtis [address] [place], [place] [phone] ACUTE ILLNESS 05/17/2018 Patient Education: Patient Medication Summary Completed 05/17/2018 Visit Diagnosis Plan: Other fatigue Discussion: Check CBC, TSH, Free T4 ICD-9 : 780.79 ICD-10 : R53.83 05/12/2018 Visit Diagnosis Plan: 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 Discussion: Following [...] : F51.01 05/12/2018 Appointment: Haylee Piper WPtel: [address] [place], [place] [phone] FOLLOW UP 05/12/2018 Patient Education: Patient Medication Summary Completed 05/12/2018 Appointment: Haylee Piper WPtel: [facility] [place] CANCELED 09/21/2017 Visit Diagnosis Plan: Candidal [...] ICD-10 : B37.0 07/20/2017 Appointment: Columba Curtis [address] [place] [address] ACUTE ILLNESS 07/20/2017 Patient Education: Patient Medication [...] 112.0 ICD-10 : B37.0 07/07/2017 Appointment: Haylee Piper WPtel: [address] [place] [address] FOLLOW UP 07/07/2017 Patient Education: Patient Medication Summary Completed 07/07/2017 Visit Diagnosis Plan: Localized edema Discussion: Star t lasix 20mg with potassium every other day and check Chem 7 in 2 weeks Flu shot given ICD-9 : 782.3 ICD-10 : R60.0 06/17/2017 Appointment: Haylee Piper WPtel: [address] [place] [address] FOLLOW UP 06/17/2017 Patient Education: Patient Medication Summary Completed 06/17/2017 Appointment: Haylee Piper WPtel: [address] [place] [address] 05/21/2017 Patient Education: Patient Medication Summary Completed 05/21/2017 Appointment: Haylee Piper WPtel: [address] [place] [address] RESCHEDULED 05/20/2017 Visit Plan: Plan labs within the week CB C, CMP to check anemia, kidney status RTC in [address] Piper and for any worsening before that time. 05/19/2017 Appointment: Mayra Arguello WPtel: [address] [place] [address] Follow Up 05/19/2017 Patient Education: Patient Medication [...] Rest, Fluids... 02/24/2017 Appointment: Haylee Piper WPtel: [facility] WORK IN 02/24/2017 Patient Education: Patient Medication [...] : R00.1 01/01/2017 Appointment: Haylee Piper WPtel: [address] [place], [place] [address] [facility] Follow Up 01/01/2017 Patient Education: Patient Medication Summary Completed 01/01/2017 Visit Diagnosis Plan: Chronic obstructiv e pulmonary disease with (acute) exacerbation Discussion: Exam, vitals and patient fee ling better is reassuring Finish rxs previously given Continue nebs PRN Follow up PRN ICD-9 : 491.21 ICD-10 : J44.1 12/22/2016 Appointment: Susie Paniagua [address] [place] [address] FOLLOW UP 12/22/2016 Patient Education: Patient Medication [...] : J44.1 12/17/2016 Appointment: Haylee Piper WPtel: [address] [place], [place] [phone] [place] WORK IN 12/17/2016 Patient Education: Patient Medication [...] : J18.9 12/16/2016 Appointment: Haylee Piper WPtel: [address] [place], [place] [phone] [place] WORK IN 12/16/2016 Patient Education: Patient Medication [...] : J45.21 12/15/2016 Appointment: Haylee Piper WPtel: [address] [place], [place] [phone] [place] WORK IN 12/15/2016 Patient Education: Patient Medication [...] ICD-10 : J20.9 12/11/2016 Appointment: Susie Paniagua [address] [facility] [place] FOLLOW UP 12/11/2016 Patient Education: Patient Medication Summary Completed 12/11/2016 Care Plan: CHEST X-RAY 2VW FRONTAL&LATL LOINC : 82041-7 Pending 12/11/2016 Care Plan: CBC Pending 12/11/2016 Visit Diagnosis Plan: Acute bronchitis, unspecified Di scussion: Injection in clinic today Continue proair Rxs as above Vicks, humidifier, etc Recheck tomorrow in clinic Will get CXR and labs if not starting to improve ICD-9 : 466.0 ICD-10 : J20.9 12/10/2016 Appointment: Susie Paniagua [address] [place], [place] [phone] ACUTE ILLNESS 12/10/2016 Patient Education: Patient Medication Summary Completed 12/10/2016 Visit Plan: Flu shot given Breo 100mcg 1 p BID for 2weeks with proair prn Notify if worsening or persists Fwup first part of October and sooner with needed 07/21/2016 Appointment: Haylee Piper WPtel: [facility] 07/17 confirmed~sl FOLLOW UP 07/21/2016 Patient Education: Patient Medication Summary Completed 07/21/2016 Visit Plan: GAUTAM Paniagua---wear esteban ssing through weekend and then take off to leave open to air 05/30/2016 Appointment: Haylee Piper WPtel: [address] [place], [place] [phone] [place] Consult 05/30/2016 Patient Education: Patient Medication [...] after tdap updated 05/29/2016 Appointment: Susie Paniagua [address] [place], [place] [phone] ACUTE ILLNESS 05/29/2016 Patient Education: Patient Medication Summary Completed 05/29/2016 Visit Plan: Continue current meds Patien t sees Dr. Eugene next week to see if would be surgical candidate 03/18/2016 Appointment: Haylee Pipertel: [address] [place], [place] [phone] 03/17 confirmed ~sl FOLLOW UP 03/18/2016 Patient Education: Patient Medication Summary Completed 03/18/2016 Visit Plan: Continue to hold atenolol an d monitor BP Take 1/2 of atenolol if BP greater then 150/90 8-10 oz of gatorade daily for next week and hydrate unless develops edema BP check 1week 10/18/2015 Appointment: Haylee Piper WPtel: [address] [place], [place] [phone] FOLLOW UP 10/18/2015 Patient Education: Patient Medication Summary Completed 10/18/2015 Visit Plan: Hold atenolol Hydrate, rest Refuses hospital but agrees will go to [facility] if worsens Recheck tomorrow Check CBC, CMP, CRP now 10/17/2015 Appointment: Haylee Piper WPtel: [address] [place], [place] [phone] WORK IN 10/17/2015 Patient Education: Patient Medication Summary Completed 10/17/2015 Visit Plan: Check CT scan of lungs November 18 Change proair to ventolin Fwup with Dr. Kilgore at end of month 10/10/2015 Appointment: Haylee Piper WPtel: [address] [place], [place] [phone] [place] 10/09 confirmed~lb FOLLOW UP 10/10/2015 Patient Education: Patient Medication Summary Completed 10/10/2015 Visit Plan: Obtain CT scan of chest resu lts Discussed that will likely need repeat scan pending reviewing above results but we will notify him once CT scan results reviewed 08/30/2015 Appointment: Haylee Piper WPtel: [address] [place], [place] [phone] [place] 08/29 appt confirmed cn Hospital Follow Up 08/30 Patient Education: Patient Medication Summary Completed 08/30/2015 Visit Plan: Continue dexilant and add Pe pcid 40mg q HS Discussed may need EGD Update thyroid US Flu shot given 06/25/2015 Appointment: Haylee Piper WPtel: [address] [place], [place] [phone] 06/22 confirmed ~sl FOLLOW UP 06/25/2015 Patient Education: Patient Medication Summary Completed 06/25/2015 Visit Plan: Continue Cymbalta at 120 mg PO daily Follow-up in 6 weeks Encouraged finding interest in a hobbie such as reading 04/25/2015 Appointment: Kat Carmona WPtel: [address] [place] [address] FOLLOW UP 04/25/2015 Patient Education: Patient Medication Summary Completed 04/25/2015 Visit Plan: Increase Cymbalta to 120 mg PO daily Follow-up in [address] Piper 04/11/2015 Appointment: Kat Carmona WPtel: [address] [place], [place] [phone] 04/09/2015 spoke with patient to make appointment FOLLOW UP 04/11/2015 Patient Education: Patient Medication Summary Completed 04/11/2015 Visit Plan: Continue Cymbalta, Neurontin Look out for tremor Discussed B12 supplement Given sample of Metanx 02/27/2015 Appointment: Haylee Piper WPtel: [address] [place], [place] [phone] 02/26 appt confirmed cn FOLLOW UP 02/28/20 [...] tremors persist 02/08/2015 Appointment: Haylee Piper WPtel: [address] [place], [place] [phone] FOLLOW UP 02/08/2015 Patient Education: Patient Medication Summary Completed 02/08/2015 Appointment: Haylee Piper WPtel: [phone] [place] NEW PATIENT 01/18/2015 Patient Education: Patient Medication Summary Completed 01/18/2015 Patient Education: [facility] - Saving AutoInj - Cymbalta - 18+ - Dynamic Portal ID Completed 01/18/2015 Referral: Vernon Rajput WPtel: [facility] [address] [place] Referral Appointment Requested Instructions Comment . Plan [...] Refuses hospital but agrees will go to [facility] if worsens Recheck tomorrow Check CBC, CMP, [...]
--- NOTE | 2019-12-16 14:36 | ED EENT ---
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 Bleeding controlled upon arrival, pt reports feeling blood running down throat. Source: patient, old records Exam Limitations: no limitations History of Present Illness Date Seen by Provider: Dec 16, 2019 Time Seen by Provider: 14:20 Initial Comments This 79-year-old gentleman with myelodysplastic syndrome and pancytopenia presents to the emergency room with left-sided nasal bleed. Bleeding started about 30 minutes prior to arrival. He feels blood trickling down the back of his throat. By the time of my assessment bleeding seemed to stop. Patient is having his cell counts monitored closely by the [facility]. He last had blood work obtained 3 days ago and has blood work scheduled again in another 3 days. His platelets have been stable over the past week. Vital signs are within normal limits. He does not take any antiplatelet or anticoagulant medications. Allergies and Home Medications Allergies Coded Allergies: Sulfa (Sulfonamide Antibiotics) (Verified Allergy, Unknown, 11/09/19) Home Medications Albuterol Sulfate 18 Gm Hfa.aer.ad, 2 PUFF INH Q4H PRN for SHORTNESS OF BREATH, (Reported) Amlodipine Besylate 5 Mg Tablet, 5 MG PO DAILY PRN for IF BP >170, (Reported) Atorvastatin Calcium 40 Mg Tablet, 40 MG PO DAILY, (Reported) Baclofen 20 Mg Tablet, 20 MG PO BID PRN for SPASMS, (Reported) Cholecalciferol (Vitamin D3) 25 Mcg Capsule, 25 MCG PO DAILY, (Reported) Dexlansoprazole 60 Mg bp, 60 MG PO DAILY, (Reported) Docusate Sodium 100 Mg Capsule, 100 MG PO BID, (Reported) Duloxetine HCl 60 Mg Capsule.dr, 60 MG PO DAILY Prescribed by: KENYETTA BALDWIN on 09/23/19 1439 Furosemide 40 Mg Tablet, 40 MG PO PRN, (Reported) Hydrocodone Bit/Acetaminophen 1 Each Tablet, 1 TAB PO Q4H PRN for PAIN-MODERATE (5-7), (Reported) Ipratropium [place] 15 Ml Naspr, 2 SPRAYS NS DAILY, (Reported) Ipratropium [place] 30 Ml Phyllis, 30 ML NS for PRN, (Reported) Metoprolol Succinate 100 Mg Tab.er.24h, 100 MG PO DAILY, (Reported) Montelukast Sodium 10 Mg Tablet, 10 MG PO HS, (Reported) Ondansetron 8 Mg Tab.rapdis, 8 MG PO Q8H PRN for NAUSEA/VOMITING-1ST LINE, (Reported) Potassium Chloride 10 Meq Tablet.er, 10 MEQ PO DAILY PRN for WITH LASIX, (Reported) Patient Home Medication List Home Medication List Reviewed: Yes Review of Systems Review of Systems Constitutional: no symptoms reported Eyes: No Symptoms Reported Ears: No Symptoms Reported Nose: see HPI Mouth: no symptoms reported Throat: no symptoms reported Respiratory: no symptoms reported Cardiovascular: no symptoms reported Hematologic/Lymphatic: See HPI Past Nrlkmul-Jqrrkp-Pachbl Hx Past Med/Social Hx: Reviewed Nursing Past Med/Soc Hx Patient Social History Alcohol Use: Denies Use Recreational Drug Use: No Smoking Status: Former Smoker Type Used: Cigarettes Former Smoker, Quit: Aug 31, 2012 2nd Hand Smoke Exposure: No Recent Foreign Travel: No Contact w/Someone Who Travel: No Recent Infectious Disease Expo: No Recent Hopitalizations: No Immunizations Up To Date Tetanus Booster (TDap): More than 5yrs PED Vaccines UTD: No Date of Pneumonia Vaccine: Jun 30, 2019 Date of Influenza Vaccine: May 31, 2019 Seasonal Allergies Seasonal Allergies: Yes Past Medical History Surgeries: Yes (CATARACTS) Cardiac, Coronary Stent, Eye Surgery, Orthopedic, Vascular Surgery Respiratory: Yes (COPD) Pneumonia, COPD Currently Using CPAP: No Currently Using BIPAP: No Cardiac: Yes (STENTS IN HEART, CAROTID ARTERY, LEGS) Coronary Artery Disease, High Cholesterol, Hypertension, Peripheral Vascular Neurological: No Reproductive Disorders: No Sexually Transmitted Disease: No HIV/AIDS: No Genitourinary: Yes Prostate Problems Gastrointestinal: Yes (ABDOMINAL PAIN AT TIMES) Gastroesophageal Reflux, Diverticulosis, Hemorrhoids Musculoskeletal: Yes (ARTHRITIS "ALL OVER") Degenerate Disk Disease, Arthritis, Chronic Back Pain Endocrine: No HEENT: No Loss of Vision: Denies Hearing Impairment: Denies Cancer: Yes (bone marrow cancer) Did You Recieve Any Treatments: Yes What Type of Treatment Did You: Chemotherapy Psychosocial: Yes Depression Integumentary: No Blood Disorders: No Adverse Reaction/Blood Tranf: No Family Medical History Reviewed Nursing Family Hx Patient reports no known family medical history. No Pertinent Family Hx Physical Exam Vital Signs Vital Signs - First Documented 12/16/19 14:12 Temp 36.5 Pulse 70 Resp 18 B/P (MAP) 134/69 (90) Pulse Ox 99 O2 Delivery Room Air Height, Weight, BMI Height: 5'10.00" Weight: 245lbs. 3.0oz. 111.834038pd; 31.00 BMI Method:Stated General Appearance: WD/WN, no apparent distress Nose: normal inspection; No active bleeding Mouth/Throat: normal mouth inspection, pharynx normal Neck: normal inspection Cardiovascular: regular rate, rhythm, no murmur Respiratory: lungs clear, normal breath sounds, no respiratory distress Neurologic/Psychiatric: medical consultant II-XII nml as tested, no motor/sensory deficits, alert, normal mood/affect, oriented x 3 Skin: normal color, warm/dry Progress/Results/Core Measures Results/Orders Vital Signs/I&O 12/16/19 14:12 Temp 36.5 Pulse 70 Resp 18 B/P (MAP) 134/69 (90) Pulse Ox 99 O2 Delivery Room Air Blood Pressure Mean: 90 Progress Progress Note : Progress Note Patient was reluctant to have his blood work checked as this requires accessing his port. His peripheral vascular access is very poor. We observed him for about 30 minutes and he developed no additional epistaxis. We reviewed discharge instructions and return precautions. He was dismissed home to outpatient follow-up. Departure Impression Primary Impression: Myelodysplastic syndrome Additional Impression: Epistaxis Disposition: HOME, SELF-CARE Condition: Improved Departure-Patient Inst. Decision time for Depature: 14:54 Referrals: KENYETTA BALDWIN DO (PCP/Family) Primary Care Physician Patient Instructions: Nosebleeds (DC), Myelodysplastic Syndromes (MDS) (DC) Add. Discharge Instructions: Avoid rubbing, blowing, or otherwise disrupting your nose for the next few days. If bleeding returns, spray 2 squirts of Afrin (oxymetazoline) in each nostril and apply direct pressure to your nose in a pinching fashion. If bleeding does not stop within 10-15 minutes, return to the emergency room. Follow-up with the Cancer Center as directed on Thursday to obtain cell counts. All discharge instructions reviewed with patient and/or family. Voiced understanding. Copy Copies To 1: KENYETTA BALDWIN DO Copies To 2: CRISTINE NAPOLES JOSHUA T MD Dec 16, 2019 14:36
--- OUTSIDE RECORDS SUMMARY | 2019-12-16 14:47 | XMS REPORT | Continuity of Care Document ---
Author Organization Unknown Address Unknown Phone Unavailable Allergies Active Description Code Type Severity Reaction Onset Reported/Identified Relationship to Patient Clinical Status Yes Sulfa (Sulfonamide Antibiotics) [id number] 0491 Drug Allergy Unknown N/A 020 Medications There is no data. 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 12/25/2011 Ot 729.81 SWE LLING OF LIMB 12/25/2011 Ot 733.00 OST EOPOROSIS NOS 12/25/2011 Ot 780.57 UNS PECIFIED SLEEP APNEA 12/25/[address] PAIN NEC 12/25/2011 Ot 789.06 ABD OMINAL PAIN, EPIGASTRIC 12/25/2011 Ot V45.82 PER CUTANEOUS TRANSLUM CORON ANGIOPLASTY 12/25/2011 Ot V85.36 BOD Y MASS INDEX 36.0-36.9, ADULT 02/06/2012 Ot 530.11 REF LUX ESOPHAGITIS 02/06/2012 Ot 535.40 OTH SPECIFIED GASTRITIS,W/O MENTION OF H 02/06/2012 Ot 553.3 DIAP HRAGMATIC HERNIA 01/29/2013 TOYA MAHAJAN, JERONIMO Ball Ot 241 .0 NONTOX UNINODULAR GOITER 04/27/2013 BING MAHAJAN, MERCEDES Ot 211.3 BENIGN NEOPLASM LG BOWEL 04/27/2013 [...] S Ot 787.91 DIARRHEA 10/28/2014 Ot 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 10/28/2014 Ot 786.09 RES PIRATORY ABNORM NEC 12/06/2014 MERCEDES SMART MD Ot 211.4 BENIGN NEOPL RECTUM/ANUS 12/06/2014 MERCEDES SMART MD Ot 272.0 PURE HYPERCHOLESTEROLEM 12/06/2014 MERCEDES SMART MD Ot 401.9 HYPERTENSION NOS 12/06/2014 MERCEDES SMART MD Ot 414.01 CORONARY ATHEROSCLEROSIS OF [place] CORON 12/06/2014 MERCEDES SMART MD Ot 455.0 INT HEMORRHOID W/O COMPL 12/06/2014 MERCEDES SMART MD Ot 455.3 EXT HEMORRHOID W/O COMPL 12/06/2014 MERCEDES SMART MD Ot 496 CHR AIRWAY OBSTRUCT NEC 12/06/2014 BING MAHAJAN, MERCEDES Ot 562.10 DIVERTICULOSIS COLON (W/O MENT OF [...] 719.45 12/08/2014 TOYA MAHAJAN, JERONIMO P Ot 241 .0 12/08/2014 TOYA MAHAJAN, JERONIMO P Ot 241 .0 12/08/2014 TOYA MAHAJAN, JERONIMO P Ot V72.63 12/08/2014 TOYA MAHAJAN, JERONIMO P Ot V72.81 12/08/2014 TOYA MAHAJAN, JERONIMO P Ot V74 .8 12/08/2014 BING MAHAJAN, MERCEDES Ot V72.84 12/08/2014 BING MAHAJAN, MERCEDES Ot 787.91 12/08/2014 BING MAHAJAN, MERCEDES Ot 789.1 12/08/2014 BING MAHAJAN, MERCEDES Ot 787.3 12/08/2014 BING MAHAJAN, MERCEDES Ot 787.91 12/08/2014 BING MAHAJAN, MERCEDES Ot 789.00 12/08/2014 KYARA MAHAJAN [facility], [facility] CCDS Ot 414.01 12/08/2014 KYARA MAHAJAN FAC, [facility] CCDS Ot 786.50 12/08/2014 Ot 787.91 12/08/2014 [...] 719.45 03/06/2015 TOYA MAHAJAN, JERONIMO P Ot 241 .0 03/06/2015 TOYA MAHAJAN, JERONIMO P Ot 241 .0 03/06/2015 TOYA MAHAJAN, JERONIMO P Ot V72.63 03/06/2015 TOYA MAHAJAN, JERONIMO P Ot V72.81 03/06/2015 TOYA MAHAJAN, JERONIMO Ball Ot V74 .8 03/06/2015 BING MAHAJAN, MERCEDES Ot V72.84 03/06/2015 BING MAHAJAN, MERCEDES Ot 787.91 03/06/2015 BING MAHAJAN, MERCEDES Ot 789.1 03/06/2015 BING MAHAJAN, MERCEDES Ot 787.3 03/06/2015 BING MAHAJAN, MERCEDES Ot 787.91 03/06/2015 BING MAHAJAN, MERCEDES Ot 789.00 03/06/2015 KYARA MAHAJAN [facility], [facility] CCDS Ot 414.01 03/06/2015 KYARA MAHAJAN FAC, [facility] CCDS Ot 786.50 03/06/2015 Ot 787.91 03/06/2015 CHENG FATIMA DO Ot 787.91 03/06/2015 Ot 787.91 03/06/2015 MERCEDES SMART MD Ot V72.84 06/12/2015 Ot 553.1 06/12/2015 Ot [...] 719.45 06/12/2015 TOYA MAHAJAN, JERONIMO P Ot 241 .0 06/12/2015 TOYA MAHAJAN, JERONIMO P Ot 241 .0 06/12/2015 TOYA MAHAJAN, JERONIMO P Ot V72.63 06/12/2015 TOYA MAHAJAN, JERONIMO P Ot V72.81 06/12/2015 TOYA MAHAJAN, JERONIMO P Ot V74 .8 06/12/2015 BING MAHAJAN, MERCEDES Ot V72.84 06/12/2015 BING MAHAJAN, MERCEDES Ot 787.91 06/12/2015 BING MAHAJAN, MERCEDES Ot 789.1 06/12/2015 BING MAHAJAN, MERCEDES Ot 787.3 06/12/2015 BING MAHAJAN, MERCEDES Ot 787.91 06/12/2015 BING MAHAJAN, MERCEDES Ot 789.00 06/12/2015 KYARA MAHAJAN [facility], [facility] CCDS Ot 414.01 06/12/2015 KYARA DENSON, [facility] CCDS Ot 786.50 06/12/2015 Ot 787.91 06/12/2015 [...] 719.45 06/22/2015 TOYA MAHAJAN, JERONIMO Ball Ot 241 .0 06/22/2015 TOYA MAHAJAN, JERONIMO P Ot 241 .0 06/22/2015 TOYA MAHAJAN, JERONIMO P Ot V72.63 06/22/2015 TOYA MAHAJAN, JERONIMO P Ot V72.81 06/22/2015 TOYA MAHAJAN, JERONIMO P Ot V74 .8 06/22/2015 BING MAHAJAN, MERCEDES Ot V72.84 06/22/2015 BING MAHAJAN, MERCEDES Ot 787.91 06/22/2015 BING MAHAJAN, MERCEDES Ot 789.1 06/22/2015 BING MAHAJAN, MERCEDES Ot 787.3 06/22/2015 BING MAHAJAN, MERCEDES Ot 787.91 06/22/2015 BING MAHAJAN, MERCEDES Ot 789.00 06/22/2015 KYARA MAHAJAN [facility], ALI FACP CCDS Ot 414.01 06/22/2015 KYARA MAHAJAN FAC, [facility] F[facility] CCDS Ot 786.50 06/22/2015 Ot 787.91 06/22/2015 YARALUISMCCOLLUM CHENG Willian Ot 787.91 06/22/2015 Ot 787.91 06/22/2015 MERCEDES [...] 06/27/2015 Ot 719.45 06/27/2015 TOYA MAHAJAN, JERONIMO P Ot 241 .0 06/27/2015 TOYA MAHAJAN, JERONIMO P Ot 241 .0 06/27/2015 TOYA MAHAJAN, JERONIMO P Ot V72.63 06/27/2015 TOYA MAHAJAN, JERONIMO P Ot V72.81 06/27/2015 TOYA MAHAJAN, JERONIMO P Ot V74 .8 06/27/2015 BING MAHAJAN, MERCEDES Ot V72.84 06/27/2015 BING MAHAJAN, MERCEDES Ot 787.91 06/27/2015 BING MAHAJAN, MERCEDES Ot 789.1 06/27/2015 BING MAHAJAN, MERCEDES Ot 787.3 06/27/2015 BING MAHAJAN, MERCEDES Ot 787.91 06/27/2015 BING MAHAJAN, MERCEDES Ot 789.00 06/27/2015 KYARA MAHAJAN FACC, ALI FACP CCDS Ot 414.01 06/27/2015 KYARA MAHAJAN [facility], [facility] CCDS Ot 786.50 06/27/2015 Ot 787.91 06/27/2015 CHENG FATIMA DO Ot 787.91 06/27/2015 Ot 787.91 06/27/2015 MERCEDES SMART MD Ot V72.84 07/02/2015 HAYLEE PIPER DO S Ot E04.1 07/02/2015 BAIMA, ERICK L SLEEVE SETTER Ot E78.5 07/02/2015 BAIMA, ERICK L SLEEVE SETTER Ot I 10 07/02/2015 BAIMA, ERICK L SLEEVE SETTER Ot I25.10 07/02/2015 BAIMA, ERICK L SLEEVE SETTER Ot I73.9 07/02/2015 BAIMA, ERICK L SLEEVE SETTER Ot I77.9 07/02/2015 BAIMA, ERICK L SLEEVE SETTER Ot R07.9 07/18/2015 HAYLEE PIPER DO S Ot E04.1 07/23/2015 BAIMA, ERICK L SLEEVE SETTER Ot E78.5 07/23/2015 BAIMA, ERICK L SLEEVE SETTER Ot I 10 07/23/2015 BAIMA, ERICK L SLEEVE SETTER Ot I25.10 07/23/2015 BAIMA, ERICK L SLEEVE SETTER Ot I73.9 07/23/2015 BAIMA, ERICK L SLEEVE SETTER Ot I77.9 07/23/2015 BAIMA, ERICK L SLEEVE SETTER Ot R07.9 07/30/2015 YAYA MARIE MD Ot M54. 5 07/30/2015 YAYA MARIE MD Ot M54. 6 08/02/2015 HAYLEE PIPER DO S Ot E04.1 08/02/2015 BAIMA, ERICK L SLEEVE SETTER Ot E78.5 08/02/2015 BAIMA, ERICK L SLEEVE SETTER Ot I 10 08/02/2015 BAIMA, ERICK L SLEEVE SETTER Ot I25.10 08/02/2015 BAIMA, ERICK L SLEEVE SETTER Ot I73.9 08/02/2015 BAIMA, ERICK L SLEEVE SETTER Ot I77.9 08/02/2015 BAIMA, ERICK L SLEEVE SETTER Ot R07.9 08/02/2015 BAIMA, ERICK L SLEEVE SETTER Ot E78.5 08/02/2015 BAIMAERICK L SLEEVE SETTER Ot I 10 08/02/2015 BAIMA, ERICK L SLEEVE SETTER Ot I25.10 08/02/2015 BAIMA, ERICK L SLEEVE SETTER Ot I73.9 08/02/2015 BAIMA, ERICK L SLEEVE SETTER Ot I77.9 08/02/2015 BAIMA, ERICK L SLEEVE SETTER Ot R07.9 08/02/2015 BAIMA, ERICK L SLEEVE SETTER Ot E78.5 08/02/2015 BAIMA, ERICK L SLEEVE SETTER Ot I 10 08/02/2015 BAIMA, ERICK L SLEEVE SETTER Ot I25.10 08/02/2015 BAIMA, ERICK L SLEEVE SETTER Ot I73.9 08/02/2015 BAIMA, ERICK L SLEEVE SETTER Ot I77.9 08/02/2015 BAIMA, ERICK Lee SLEEVE SETTER Ot R07.9 08/02/2015 HAYLEE PIPER DO Ot E04.1 08/13/2015 YAYA MARIE MD Ot M54. 5 08/13/2015 YAYA MARIE MD Ot M54. 6 08/13/2015 YAYA MARIE MD Ot M54. 5 08/13/2015 YAYA MARIE MD Ot M54. 6 08/20/2015 Ot 787.91 08/20/2015 Ot 787.91 08/23/2015 [...] Ot M47.816 09/06/2015 YAYA MARIE MD Ot M51. 16 09/06/2015 YAYA MARIE MD, Ot Z79.899 09/14/2015 YAYA MARIE MD, Ot M47.816 09/14/2015 YAYA MARIE MD, Ot M51. 16 09/14/2015 YAYA MARIE MD, Ot Z79.899 09/14/2015 YAYA MARIE MD, Ot M47.816 09/14/2015 YAYA MARIE MD, Ot M51. 16 09/14/2015 YAYA MARIE MD, Ot Z79.899 10/05/2015 YAYA MARIE MD, Ot M47.816 SPONDYLOSIS W/O MYELOPATHY OR RADICULOPA 10/05/2015 YAYA MARIE MD, Ot M51. 16 INTERVERTEBRAL DISC DISORDERS W RADICULO 10/05/2015 YAYA MARIE MD, Ot Z79. 02 MOTH PROOFER (CURRENT) USE OF ANTITHROMBOTI 10/05/2015 YAYA MARIE MD, Ot Z79.899 OTHER CORRECTION (CURRENT) DRUG THERAPY 10/19/2015 MELISSA LYNCH DO Ot F17.211 NICOTINE DEPENDENCE, CIGARETTES, IN [place] 10/19/2015 MELISSA LYNCH DO Ot I10 ESSENTIAL (PRIMARY) HYPERTENSION 10/19/2015 MELISSA LYNCH DO Ot J44.9 CHRONIC OBSTRUCTIVE PULMONARY DISEASE, U 12/11/2015 ERICK NASH SLEEVE SETTER Ot E78.5 12/11/2015 BAIERICK FORTUNE SLEEVE SETTER Ot I 10 12/11/2015 BAIERICK FORTUNE L SLEEVE SETTER Ot I25.10 12/11/2015 BAIMAFLACOERICK L SLEEVE SETTER Ot I73.9 12/11/2015 BAIMA ERICK L SLEEVE SETTER Ot I77.9 12/11/2015 BAIMA ERICK L SLEEVE SETTER Ot R07.9 12/11/2015 BAIMA ERICK L SLEEVE SETTER Ot E78.5 12/11/2015 BAIMA ERICK L SLEEVE SETTER Ot I 10 12/11/2015 BAIMA ERICK L SLEEVE SETTER Ot I25.10 12/11/2015 BAIMAERICK L SLEEVE SETTER Ot I73.9 12/11/2015 BAIMA ERICK L SLEEVE SETTER Ot I77.9 12/11/2015 BAIMA ERICK L SLEEVE SETTER Ot R07.9 12/11/2015 HAYLEE PIPER DO S Ot E04.1 12/11/2015 YAYA MARIE MD Ot M54. 5 12/11/2015 YAYA MARIE MD Ot M54. 6 12/11/2015 YAYA MARIE MD Ot M47.816 12/11/2015 YAYA MARIE MD Ot M51. 16 12/11/2015 YAYA MARIE MD Ot Z79.899 12/11/2015 LATRICIA ALVARES DIRECTOR OF INDIVIDUAL GIVING Ot M47.21 12/11/2015 LATRICIA ALVARES APRN Ot R91.1 12/11/2015 BAIERICK FORTUNE SLEEVE SETTER Ot E78.5 12/11/2015 ERICK NASH SLEEVE SETTER Ot I 10 12/11/2015 BAIERICK FORTUNE SLEEVE SETTER Ot I25.10 12/11/2015 BAIERICK FORTUNE SLEEVE SETTER Ot I73.9 12/11/2015 ERICK NASH SLEEVE SETTER Ot I77.9 12/11/2015 ERICK NASH SLEEVE SETTER Ot R07.9 12/11/2015 HAYLEE PIPER DO S Ot E04.1 12/11/2015 YAYA MARIE MD Ot M54. 5 12/11/2015 YAYA MARIE MD Ot M54. 6 12/11/2015 YAYA MARIE MD Ot M47.816 12/11/2015 YAYA MARIE MD Ot M51. 16 12/11/2015 YAYA MARIE MD Ot Z79.899 12/11/2015 LATRICIA ALVARES DIRECTOR OF INDIVIDUAL GIVING Ot M47.21 12/11/2015 LATRICIA ALVARES APRN Ot R91.1 12/11/2015 LATRICIA ALVARES DIRECTOR OF INDIVIDUAL GIVING Ot M47.21 12/11/2015 LATRICIA ALVARES APRN Ot R91.1 12/17/2015 YAYA MARIE MD Ot M47.816 SPONDYLOSIS W/O MYELOPATHY OR RADICULOPA 12/17/2015 YAYA MARIE MD Ot M51. 16 INTERVERTEBRAL DISC DISORDERS W RADICULO 12/17/2015 YAYA MARIE MD Ot Z79. 02 MOTH PROOFER (CURRENT) USE OF ANTITHROMBOTI 12/17/2015 YAYA MARIE MD, Ot Z79.899 OTHER MOTH PROOFER (CURRENT) DRUG THERAPY 12/24/2015 LATRICIA ALVARES DIRECTOR OF INDIVIDUAL GIVING Ot 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, OCCIPT- 12/24/2015 LATRICIA ALVARES DIRECTOR OF INDIVIDUAL GIVING Ot R91.1 SOLITARY PULMONARY NODULE 12/24/2015 LATRICIA ALVARES APRN Ot 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, OCCIPT- 12/24/2015 LATRICIA ALVARES Edwin DIRECTOR OF INDIVIDUAL GIVING Ot R91.1 SOLITARY PULMONARY NODULE 01/07/2016 LATRICIA ALVARES APRN Ot 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, OCCIPT- 01/07/2016 LATRICIA ALVARES APRN Ot R91.1 SOLITARY PULMONARY NODULE 07/08/2016 HAYLEE PIPER DO Ot E04.1 NONTOXIC SINGLE THYROID NODULE 12/11/2016 Ot 241.0 NONT OX UNINODULAR GOITER 12/11/2016 Ot 241.0 NONT OX UNINODULAR GOITER 12/11/2016 Ot V72.84 EXA M PRE- OPERATIVE NOS 12/11/2016 Ot 722.52 LUM B/LUMBOSAC DISC DEGEN 12/11/2016 Ot 241.0 NONT OX UNINODULAR GOITER 12/11/2016 Ot 241.0 NONT OX UNINODULAR GOITER 12/11/2016 Ot 719.45 SAIRA NT PAIN-PELVIS 12/11/2016 TOYA MAHAJAN, JERONIMO Ball Ot 241 .0 NONTOX UNINODULAR GOITER 12/11/2016 JERONIMO PITTMAN MD Ot 241 .0 NONTOX UNINODULAR GOITER 12/11/2016 TOYA MAHAJAN, JERONIMO Ball Ot V72.63 PRE-PROCEDURAL LABORATORY EXAMINATION 12/11/2016 JERONIMO PITTMAN MD Ot V72.81 OETN-QEN-[id number] CARDIOVASCULAR 12/11/2016 JEROINMO PITTMAN MD Ot V74 .8 SCREEN-BACTERIAL DIS NEC 12/11/2016 MERCEDES SMART MD Ot V72.84 EXAM PRE-OPERATIVE NOS 12/11/2016 MERCEDES SMART MD Ot 787.91 DIARRHEA 12/11/2016 MERCEDES SMART MD Ot 789.1 HEPATOMEGALY 12/11/2016 MERCEDES SMART MD Ot 787.3 FLATUL/ERUCTAT/GAS PAIN 12/11/2016 MERCEDES SMART MD Ot 787.91 DIARRHEA 12/11/2016 MERCEDES SMART MD Ot 789.00 ABDOMINAL PAIN, UNSPECIFIED SITE 12/11/2016 KYARA MAHAJAN [facility], [facility] CCDS Ot 414.01 CORONARY ATHEROSCLEROSIS OF [place] CORON 12/11/2016 KYARA MAHAJAN [facility], [facility] MARK CCDS Ot 786.50 CHEST PAIN NOS 12/11/2016 Ot 787.91 GODFREY RRHEA 12/11/2016 GELCHENG RG DO Willian Ot 787.91 DIARRHEA 12/11/2016 Ot 787.91 GODFREY RRHEA 12/11/2016 MERCEDES SMART MD Ot V72.84 EXAM PRE-OPERATIVE NOS 12/11/2016 ERICK NASH SLEEVE SETTER Ot E78.5 HYPERLIPIDEMIA, UNSPECIFIED 12/11/2016 ERICK NASH SLEEVE SETTER Ot I 10 ESSENTIAL (PRIMARY) HYPERTENSION 12/11/2016 ERICK NASH SLEEVE SETTER Ot I25.10 ATHSCL HEART DISEASE OF [place] CORONARY 12/11/2016 ERICK NASH SLEEVE SETTER Ot I73.9 PERIPHERAL VASCULAR DISEASE, UNSPECIFIED 12/11/2016 BAIERICK FORTUNE SLEEVE SETTER Ot I77.9 DISORDER OF ARTERIES AND ARTERIOLES, UNS 12/11/2016 ERICK NSAH SLEEVE SETTER Ot R07.9 CHEST PAIN, UNSPECIFIED 12/11/2016 HAYLEE PIPER DO Ot E04.1 NONTOXIC SINGLE THYROID NODULE 12/11/2016 YAYA MARIE MD Ot M54. 5 LOW BACK PAIN 12/11/2016 YAYA MARIE MD Ot M54. 6 PAIN IN THORACIC SPINE 12/11/2016 YAYA MARIE MD Ot M47.816 SPONDYLOSIS W/O MYELOPATHY OR RADICULOPA 12/11/2016 YAYA MARIE MD Ot M51. 16 INTERVERTEBRAL DISC DISORDERS W RADICULO 12/11/2016 YAYA MARIE MD Ot Z79.899 OTHER MOTH PROOFER (CURRENT) DRUG THERAPY 12/11/2016 LATRICIA ALVARES APRN Ot 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, OCCIPT- 12/11/2016 LATRICIA ALVARES APRN Ot R91.1 SOLITARY PULMONARY NODULE 12/16/2016 LATRICIA ALVARES APRN Ot R05 COUGH 12/16/2016 LATRICIA ALVARES DIRECTOR OF INDIVIDUAL GIVING Ot R09.89 OTH SYMPTOMS AND SIGNS INVOLVING THE CIR 12/19/2016 KYARA MAHAJAN [facility], [facility] CCDS Ot I25.10 ATHSCL HEART DISEASE OF [place] CORONARY 12/22/2016 KYARA MAHAJAN [facility], [facility] CCDS Ot I25.10 ATHSCL HEART DISEASE OF [place] CORONARY 12/26/2016 ORENDER DO, HAYLEE S Ot I10 ESSENTIAL (PRIMARY) HYPERTENSION 12/26/2016 ORENDER DO, HAYLEE S Ot I95.1 ORTHOSTATIC HYPOTENSION 12/26/2016 ORENDER DO, HAYLEE S Ot J44.9 CHRONIC OBSTRUCTIVE PULMONARY DISEASE, U 12/26/2016 ORENDER DO, HAYLEE S Ot M54.9 DORSALGIA, UNSPECIFIED 12/26/2016 ORENDER DO, HAYLEE S Ot R00.1 BRADYCARDIA, UNSPECIFIED 12/26/2016 ORENDER DO, HAYLEE S Ot Z87.01 PERSONAL HISTORY OF PNEUMONIA (RECURRENT 12/26/2016 ORENDER DO, HAYLEE S Ot Z87.891 PERSONAL HISTORY OF NICOTINE DEPENDENCE 12/26/2016 ORENDER DO, HAYLEE S Ot Z95.5 PRESENCE OF CORONARY ANGIOPLASTY IMPLANT 12/30/2016 Ot 241.0 NONT OX UNINODULAR GOITER 12/30/2016 Ot 241.0 NONT OX UNINODULAR GOITER 12/30/2016 Ot V72.84 EXA M PRE- OPERATIVE NOS 12/30/2016 Ot 722.52 LUM B/LUMBOSAC DISC DEGEN 12/30/2016 Ot 241.0 NONT OX UNINODULAR GOITER 12/30/2016 Ot 241.0 NONT OX UNINODULAR GOITER 12/30/2016 Ot 719.45 SAIRA NT PAIN-PELVIS 12/30/2016 JERONIMO PITTMAN MD Ot 241 .0 NONTOX UNINODULAR GOITER 12/30/2016 JERONIMO PITTMAN MD Ot 241 .0 NONTOX UNINODULAR GOITER 12/30/2016 JERONIMO PITTMAN MD Ot V72.63 PRE-PROCEDURAL LABORATORY EXAMINATION 12/30/2016 JERONIMO PITTMAN MD Ot V72.81 DWRD-OME-KIDUZDBIH CARDIOVASCULAR 12/30/2016 JERONIMO PITTMAN MD Ot V74 .8 SCREEN-BACTERIAL DIS NEC 12/30/2016 MERCEDES SMART MD Ot V72.84 EXAM PRE-OPERATIVE NOS 12/30/2016 MERCEDES SMART MD Ot 787.91 DIARRHEA 12/30/2016 MERCEDES SMART MD Ot 789.1 HEPATOMEGALY 12/30/2016 MERCEDES SMART MD Ot 787.3 FLATUL/ERUCTAT/GAS PAIN 12/30/2016 MERCEDES SMART MD Ot 787.91 DIARRHEA 12/30/2016 MERCEDES SMART MD Ot 789.00 ABDOMINAL PAIN, UNSPECIFIED SITE 12/30/2016 KYARA MAHAJAN FAC, [facility] CCDS Ot 414.01 CORONARY ATHEROSCLEROSIS OF [place] CORON 12/30/2016 KYARA MAHAJAN FAC, [facility] CCDS Ot 786.50 CHEST PAIN NOS 12/30/2016 Ot 787.91 GODFREY RRHEA 12/30/2016 CHENG FATIMA DO Ot 787.91 DIARRHEA 12/30/2016 Ot 787.91 GODFREY RRHEA 12/30/2016 MERCEDES SMART MD Ot V72.84 EXAM PRE-OPERATIVE NOS 12/30/2016 ERICK NASH SLEEVE SETTER Ot E78.5 HYPERLIPIDEMIA, UNSPECIFIED 12/30/2016 ERICK NASH SLEEVE SETTER Ot I 10 ESSENTIAL (PRIMARY) HYPERTENSION 12/30/2016 ERICK NASH SLEEVE SETTER Ot I25.10 ATHSCL HEART DISEASE OF [place] CORONARY 12/30/2016 ERICK NASH SLEEVE SETTER Ot I73.9 PERIPHERAL VASCULAR DISEASE, UNSPECIFIED 12/30/2016 ERICK NASH SLEEVE SETTER Ot I77.9 DISORDER OF ARTERIES AND ARTERIOLES, UNS 12/30/2016 ERICK NASH SLEEVE SETTER Ot R07.9 CHEST PAIN, UNSPECIFIED 12/30/2016 KEITHSHAHRZAD DO HAYLEE S Ot E04.1 NONTOXIC SINGLE THYROID NODULE 12/30/2016 YAYA MARIE MD Ot M54. 5 LOW BACK PAIN 12/30/2016 YAYA MARIE MD Ot M54. 6 PAIN IN THORACIC SPINE 12/30/2016 YAYA MARIE MD Ot M47.816 SPONDYLOSIS W/O MYELOPATHY OR RADICULOPA 12/30/2016 YAYA MARIE MD Ot M51. 16 INTERVERTEBRAL DISC DISORDERS W RADICULO 12/30/2016 YAYA MARIE MD Ot Z79.899 OTHER CORRECTION (CURRENT) DRUG THERAPY 12/30/2016 LATRICIA ALVARES DIRECTOR OF INDIVIDUAL GIVING Ot 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, OCCIPT- 12/30/2016 LATRICIA ALVARES DIRECTOR OF INDIVIDUAL GIVING Ot R91.1 SOLITARY PULMONARY NODULE 12/30/2016 LATRICIA ALVARES DIRECTOR OF INDIVIDUAL GIVING Ot R05 COUGH 12/30/2016 LATRICIA ALVARES DIRECTOR OF INDIVIDUAL GIVING Ot R09.89 OTH SYMPTOMS AND SIGNS INVOLVING THE CIR 12/30/2016 KYARA MAHAJAN FACC, ALI FACP CCDS Ot I25.10 ATHSCL HEART DISEASE OF [place] CORONARY 12/30/2016 KYARA MAHAJAN FACC, ALI FACP CCDS Ot I25.10 ATHSCL HEART DISEASE OF [place] CORONARY 12/30/2016 KYARA MAHAJAN FACC, ALI FACP CCDS Ot I25.10 ATHSCL HEART DISEASE OF [place] CORONARY 12/30/2016 KYARA MAHAJAN FACC, ALI FACP CCDS Ot I25.10 ATHSCL HEART DISEASE OF [place] CORONARY 12/31/2016 KYARA MAHAJAN FACC, ALI FACP CCDS Ot E78.4 OTHER HYPERLIPIDEMIA 12/31/2016 KYARA MAHAJAN FACC, ALI FACP CCDS Ot I10 ESSENTIAL (PRIMARY) HYPERTENSION 12/31/2016 KYARA MAHAJAN FACC, ALI FACP CCDS Ot I25.10 ATHSCL HEART DISEASE OF [place] CORONARY 12/31/2016 KYARA MAHAJAN FACC, ALI FACP CCDS Ot 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 12/31/2016 KYARA MAHAJAN FACC, ALI FACP CCDS Ot I70.213 ATHSCL [place] ARTERIES OF EXTRM W INTRMT 12/31/2016 KYARA MAHAJAN FACC, ALI FACP CCDS Ot J43.8 OTHER EMPHYSEMA 12/31/2016 KYARA MAHAJAN FACC, ALI FACP CCDS Ot R06.02 SHORTNESS OF BREATH 12/31/2016 KYARA MAHAJAN FACC, ALI FACP CCDS Ot Z87.891 PERSONAL HISTORY OF NICOTINE DEPENDENCE 01/07/2017 LATRICIA ALVARES DIRECTOR OF INDIVIDUAL GIVING Ot R05 COUGH 01/07/2017 LATRICIA ALVARES DIRECTOR OF INDIVIDUAL GIVING Ot R09.89 OTH SYMPTOMS AND SIGNS INVOLVING THE CIR 01/13/2017 LATRICIA ALVARES DIRECTOR OF INDIVIDUAL GIVING Ot R05 COUGH 01/13/2017 LATRICIA ALVARES DIRECTOR OF INDIVIDUAL GIVING Ot R09.89 OTH SYMPTOMS AND SIGNS INVOLVING THE CIR 01/16/2017 YAYA MARIE MD, Ot M51. 16 INTERVERTEBRAL DISC DISORDERS W RADICULO 01/16/2017 YAYA MARIE MD Ot M79. 1 MYALGIA 01/16/2017 YAYA MARIE MD, Ot Z79.899 OTHER MOTH PROOFER (CURRENT) DRUG THERAPY 01/21/2017 KYARA DENSONC, ALI FACP CCDS Ot E78.4 OTHER HYPERLIPIDEMIA 01/21/2017 KYARA MAHAJAN FACC, ALI FACP CCDS Ot I10 ESSENTIAL (PRIMARY) HYPERTENSION 01/21/2017 KYARA MAHAJAN FACC, ALI FACP CCDS Ot I25.10 ATHSCL HEART DISEASE OF [place] CORONARY 01/21/2017 KYARA MAHAJAN FACC, ALI FACP CCDS Ot 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 01/21/2017 KYARA MAHAJAN FACC, ALI FACP CCDS Ot I70.213 ATHSCL [place] ARTERIES OF EXTRM W INTRMT 01/21/2017 KYARA MAHAJAN FACC, ALI FACP CCDS Ot J43.8 OTHER EMPHYSEMA 01/21/2017 KYARA MAHAJAN FACC, ALI FACP CCDS Ot R06.02 SHORTNESS OF BREATH 01/21/2017 KYARA MAHAJAN FACC, ALI FACP CCDS Ot Z87.891 PERSONAL HISTORY OF NICOTINE DEPENDENCE 01/21/2017 YAYA MARIE MD, Ot M51. 16 INTERVERTEBRAL DISC DISORDERS W RADICULO 01/21/2017 YAYA MARIE MD Ot M79. 1 MYALGIA 01/21/2017 YAYA MARIE MD Ot Z79.899 OTHER CORRECTION (CURRENT) DRUG THERAPY 02/02/2017 KYARA DENSONC, ALI FACP CCDS Ot E78.4 OTHER HYPERLIPIDEMIA 02/02/2017 KYARA MAHAJAN FACC, ALI FACP CCDS Ot I10 ESSENTIAL (PRIMARY) HYPERTENSION 02/02/2017 KYARA MAHAJAN FACC, ALI FACP CCDS Ot I25.10 ATHSCL HEART DISEASE OF [place] CORONARY 02/02/2017 KYARA MAHAJAN FACC, ALI FACP CCDS Ot 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 02/02/2017 KYARA MAHAJAN FACC, ALI FACP CCDS Ot I70.213 ATHSCL [place] ARTERIES OF EXTRM W INTRMT 02/02/2017 KYARA MAHAJAN FAC, ALI [facility] CCDS Ot J43.8 OTHER EMPHYSEMA 02/02/2017 KYARA MAHAJAN FAC, [facility] CCD[facility] Ot R06.02 SHORTNESS OF BREATH 02/02/2017 KYARA MAHAJAN FAC, [facility] CCDS Ot Z87.891 PERSONAL HISTORY OF NICOTINE DEPENDENCE 05/02/2017 ORENDER DO, HAYLEE S Ot E66.01 MORBID (SEVERE) OBESITY DUE TO EXCESS CA 05/02/2017 ORENDER DO, HAYLEE S Ot E86.0 DEHYDRATION 05/02/2017 ORENDER DO, HAYLEE S Ot I25.10 ATHSCL HEART DISEASE OF [place] CORONARY 05/02/2017 JUNNDER DO, HAYLEE S Ot I70.0 ATHEROSCLEROSIS OF [place] 05/02/2017 ORENDER DO, HAYLEE S Ot K55.1 CHRONIC VASCULAR DISORDERS OF INTESTINE 05/02/2017 ORENDER DO, HAYLEE S Ot M54.9 DORSALGIA, UNSPECIFIED 05/02/2017 ORENDER DO, HAYLEE S Ot N17.0 ACUTE KIDNEY FAILURE WITH TUBULAR NECROS 05/02/2017 ORENDER DO, HAYLEE S Ot N28.9 DISORDER OF KIDNEY AND URETER, UNSPECIFI 05/02/2017 ORENDER DO, HAYLEE S Ot R07.9 CHEST PAIN, UNSPECIFIED 05/02/2017 ORENDER DO, HAYLEE S Ot R10.13 EPIGASTRIC PAIN 05/02/2017 ORENDER DO, HAYLEE S Ot R41.82 ALTERED MENTAL STATUS, UNSPECIFIED 05/02/2017 ORENDER DO, HAYLEE S Ot R53.83 OTHER FATIGUE 05/02/2017 ORENDER DO, HAYLEE S Ot R57.9 SHOCK, UNSPECIFIED 05/02/2017 ORENDER DO, HAYLEE S Ot T40.2X5A ADVERSE EFFECT OF OTHER OPIOIDS, INITIAL 05/02/2017 ORENDER DO, HAYLEE S Ot T40.4X5A ADVERSE EFFECT OF OTHER SYNTHETIC NARCOT 05/02/2017 ORENDER DO, HAYLEE S Ot Z68.42 BODY MASS INDEX (BMI) 45.0-49.9, ADULT 05/02/2017 ORENDER DO, HAYLEE S Ot Z95.1 PRESENCE OF AORTOCORONARY BYPASS GRAFT 05/02/2017 FELIZ RESENDIZ HAYLEE S Ot Z95.5 PRESENCE OF CORONARY ANGIOPLASTY IMPLANT 05/02/2017 FELIZ RESENDIZ HAYLEE Alexis Ot Z98.890 OTHER SPECIFIED POSTPROCEDURAL STATES 05/02/2017 FELIZ RESENDIZ HAYLEE Alexis Ot E66.01 MORBID (SEVERE) OBESITY DUE TO EXCESS CA 05/02/2017 JUNCONORSHAHRZAD RESENDIZ HAYLEE S Ot E86.0 DEHYDRATION 05/02/2017 FELIZ RESENDIZ HAYLEE S Ot I25.10 ATHSCL HEART DISEASE OF [place] CORONARY 05/02/2017 FELIZ RESENDIZ HAYLEE S Ot I70.0 ATHEROSCLEROSIS OF [place] 05/02/2017 JUNFRANCISCO RESENDIZ HAYLEE S Ot K55.1 CHRONIC VASCULAR DISORDERS OF INTESTINE 05/02/2017 FELIZ RESENDIZ HAYLEE S Ot M54.9 DORSALGIA, UNSPECIFIED 05/02/2017 KEITHSHAHRZAD RESENDIZ HAYLEE S Ot N17.0 ACUTE KIDNEY FAILURE WITH TUBULAR NECROS 05/02/2017 FELIZ RESENDIZ HAYLEE S Ot N28.9 DISORDER OF KIDNEY AND URETER, UNSPECIFI 05/02/2017 FELIZ RESENDIZ HAYLEE S Ot R07.9 CHEST PAIN, UNSPECIFIED 05/02/2017 KEITHSHAHRZAD RESENDIZ HAYLEE S Ot R10.13 EPIGASTRIC PAIN 05/02/2017 KEITHSHAHRZAD RESENDIZ HAYLEE S Ot R41.82 ALTERED MENTAL STATUS, UNSPECIFIED 05/02/2017 JUNCONORSHAHRZAD RESENDIZ HAYLEE S Ot R53.83 OTHER FATIGUE 05/02/2017 JUNCONORSHAHRZAD RESENDIZ HAYLEE S Ot R57.9 SHOCK, UNSPECIFIED 05/02/2017 KEITHSHAHRZAD RESENDIZ HAYLEE S Ot T40.2X5A ADVERSE EFFECT OF OTHER OPIOIDS, INITIAL 05/02/2017 KEITHSHAHRZAD RESENDIZ HAYLEE S Ot T40.4X5A ADVERSE EFFECT OF OTHER SYNTHETIC NARCOT 05/02/2017 KEITHSHAHRZAD RESENDIZ HAYLEE S Ot Z68.42 BODY MASS INDEX (BMI) 45.0-49.9, ADULT 05/02/2017 KEITHSHAHRZAD RESENDIZ HAYLEE S Ot Z95.1 PRESENCE OF AORTOCORONARY BYPASS GRAFT 05/02/2017 SEEMA PIPER DOLINE S Ot Z95.5 PRESENCE OF CORONARY ANGIOPLASTY IMPLANT 05/02/2017 SEEMA PIPER DOLINE S Ot Z98.890 OTHER SPECIFIED POSTPROCEDURAL STATES 05/03/2017 SEEMA PIPER DOLINE S Ot E66.01 MORBID (SEVERE) OBESITY DUE TO EXCESS CA 05/03/2017 SEEMA PIPER DOLINE S Ot E86.0 DEHYDRATION 05/03/2017 FELIZ RESENDIZ HAYLEE S Ot I25.10 ATHSCL HEART DISEASE OF [place] CORONARY 05/03/2017 FELIZ RESENDIZ HAYLEE S Ot I70.0 ATHEROSCLEROSIS OF [place] 05/03/2017 FELIZ RESEDNIZ HAYLEE S Ot K55.1 CHRONIC VASCULAR DISORDERS OF INTESTINE 05/03/2017 FELIZ RESENDIZ HAYLEE S Ot M54.9 DORSALGIA, UNSPECIFIED 05/03/2017 FELIZ RESENDIZ HAYLEE S Ot N17.0 ACUTE KIDNEY FAILURE WITH TUBULAR NECROS 05/03/2017 FELIZ RESENDIZ HAYLEE S Ot N28.9 DISORDER OF KIDNEY AND URETER, UNSPECIFI 05/03/2017 FELIZ RESENDIZ HAYLEE S Ot R07.9 CHEST PAIN, UNSPECIFIED 05/03/2017 FELIZ RESENDIZ HAYLEE S Ot R10.13 EPIGASTRIC PAIN 05/03/2017 FELIZ RESENDIZ HAYLEE S Ot R41.82 ALTERED MENTAL STATUS, UNSPECIFIED 05/03/2017 FELIZ RESENDIZ HAYLEE S Ot R53.83 OTHER FATIGUE 05/03/2017 FELIZ RESENDIZ HAYLEE S Ot R57.9 SHOCK, UNSPECIFIED 05/03/2017 FELIZ RESENDIZ HAYLEE S Ot T40.2X5A ADVERSE EFFECT OF OTHER OPIOIDS, INITIAL 05/03/2017 EFLIZ RESENDIZ HAYLEE S Ot T40.4X5A ADVERSE EFFECT OF OTHER SYNTHETIC NARCOT 05/03/2017 JUNFRANCISCO RESENDIZ HAYLEE S Ot Z68.42 BODY MASS INDEX (BMI) 45.0-49.9, ADULT 05/03/2017 FELIZ RESENDIZ HAYLEE S Ot Z95.1 PRESENCE OF AORTOCORONARY BYPASS GRAFT 05/03/2017 KEITHSHAHRZAD RESENDIZ HAYLEE S Ot Z95.5 PRESENCE OF CORONARY ANGIOPLASTY IMPLANT 05/03/2017 SEEMA PIPER DOLINE S Ot Z98.890 OTHER SPECIFIED POSTPROCEDURAL STATES 05/04/2017 HAYLEE PIPER DO S Ot E66.01 MORBID (SEVERE) OBESITY DUE TO EXCESS CA 05/04/2017 FELIZ RESENDIZ HAYLEE S Ot E86.0 DEHYDRATION 05/04/2017 SEEMA PIPER DOLINE S Ot I25.10 ATHSCL HEART DISEASE OF [place] CORONARY 05/04/2017 FELIZ RESENDIZ HAYLEE S Ot I70.0 ATHEROSCLEROSIS OF [place] 05/04/2017 FELIZ RESENDIZ HAYLEE S Ot K55.1 CHRONIC VASCULAR DISORDERS OF INTESTINE 05/04/2017 FELIZ RESENDIZ HAYLEE S Ot M54.9 DORSALGIA, UNSPECIFIED 05/04/2017 FELIZ RESENDIZ HAYLEE S Ot N17.0 ACUTE KIDNEY FAILURE WITH TUBULAR NECROS 05/04/2017 FELIZ RESENDIZ HAYLEE S Ot N28.9 DISORDER OF KIDNEY AND URETER, UNSPECIFI 05/04/2017 FELIZ RESENDIZ HAYLEE S Ot R07.9 CHEST PAIN, UNSPECIFIED 05/04/2017 FELIZ RESENDIZ HAYLEE S Ot R10.13 EPIGASTRIC PAIN 05/04/2017 FELIZ RESENDIZ HAYLEE S Ot R41.82 ALTERED MENTAL STATUS, UNSPECIFIED 05/04/2017 FELIZ RESENDIZ HAYLEE S Ot R53.83 OTHER FATIGUE 05/04/2017 FELIZ RESENDIZ HAYLEE S Ot R57.9 SHOCK, UNSPECIFIED 05/04/2017 FELIZ RESENDIZ HAYLEE S Ot T40.2X5A ADVERSE EFFECT OF OTHER OPIOIDS, INITIAL 05/04/2017 FELIZ RESENDIZ HAYLEE S Ot T40.4X5A ADVERSE EFFECT OF OTHER SYNTHETIC NARCOT 05/04/2017 FELIZ RESENDIZ HAYLEE S Ot Z68.42 BODY MASS INDEX (BMI) 45.0-49.9, ADULT 05/04/2017 FELIZ RESENDIZ HAYLEE S Ot Z95.1 PRESENCE OF AORTOCORONARY BYPASS GRAFT 05/04/2017 FELIZ RESENDIZ HAYLEE S Ot Z95.5 PRESENCE OF CORONARY ANGIOPLASTY IMPLANT 05/04/2017 FELIZ RESENDIZ HAYLEE S Ot Z98.890 OTHER SPECIFIED POSTPROCEDURAL STATES 05/05/2017 SEEMA PIPER DOLINE S Ot E66.01 MORBID (SEVERE) OBESITY DUE TO EXCESS CA 05/05/2017 SEEMA PIPER DOLINE S Ot E86.0 DEHYDRATION 05/05/2017 SEEMA PIPER DOLINE S Ot I25.10 ATHSCL HEART DISEASE OF [place] CORONARY 05/05/2017 SEEMA PIPER DOLINE S Ot I70.0 ATHEROSCLEROSIS OF [place] 05/05/2017 ESEMA PIPER DOLINE S Ot K55.1 CHRONIC VASCULAR DISORDERS OF INTESTINE 05/05/2017 FELIZ RESENDIZ, HAYLEE S Ot M54.9 DORSALGIA, UNSPECIFIED 05/05/2017 FELIZ RESENDIZ, HAYLEE S Ot N17.0 ACUTE KIDNEY FAILURE WITH TUBULAR NECROS 05/05/2017 SEEMA PIPER DOLINE S Ot N28.9 DISORDER OF KIDNEY AND URETER, UNSPECIFI 05/05/2017 SEEMA PIPER DOLINE S Ot R07.9 CHEST PAIN, UNSPECIFIED 05/05/2017 FELIZ RESENDIZ, HAYLEE S Ot R10.13 EPIGASTRIC PAIN 05/05/2017 FELIZ RESENDIZ, HAYLEE S Ot R41.82 ALTERED MENTAL STATUS, UNSPECIFIED 05/05/2017 SEEMA PIPER DOLINE S Ot R53.83 OTHER FATIGUE 05/05/2017 FELIZ RESENDIZ, HAYLEE S Ot R57.9 SHOCK, UNSPECIFIED 05/05/2017 SEEMA PIPER DOLINE S Ot T40.2X5A ADVERSE EFFECT OF OTHER OPIOIDS, INITIAL 05/05/2017 SEEMA PIPER DOLINE S Ot T40.4X5A ADVERSE EFFECT OF OTHER SYNTHETIC NARCOT 05/05/2017 FELIZ RESENDIZ, HAYLEE S Ot Z68.42 BODY MASS INDEX (BMI) 45.0-49.9, ADULT 05/05/2017 SEEMA PIPER DOLINE S Ot Z95.1 PRESENCE OF AORTOCORONARY BYPASS GRAFT 05/05/2017 FELIZ RESENDIZ HAYELE S Ot Z95.5 PRESENCE OF CORONARY ANGIOPLASTY IMPLANT 05/05/2017 SEEMA PIPER DOLINE S Ot Z98.890 OTHER SPECIFIED POSTPROCEDURAL STATES 05/06/2017 SEEMA PIPER DOLINE S Ot E66.01 MORBID (SEVERE) OBESITY DUE TO EXCESS CA 05/06/2017 SEEMA PIPER DOLINE S Ot E86.0 DEHYDRATION 05/06/2017 SEEMA PIPER DOLINE S Ot I25.10 ATHSCL HEART DISEASE OF [place] CORONARY 05/06/2017 SEEMA PIPER DOLINE S Ot I70.0 ATHEROSCLEROSIS OF [place] 05/06/2017 SEEMA PIPER DOLINE S Ot K55.1 CHRONIC VASCULAR DISORDERS OF INTESTINE 05/06/2017 JUNNDSHARHZAD RESENDIZ, HAYLEE S Ot M54.9 DORSALGIA, UNSPECIFIED 05/06/2017 JUNNDER , HAYLEE S Ot N17.0 ACUTE KIDNEY FAILURE WITH TUBULAR NECROS 05/06/2017 FELIZ RESENDIZ HAYLEE S Ot N28.9 DISORDER OF KIDNEY AND URETER, UNSPECIFI 05/06/2017 FELIZ RESENDIZ HAYLEE S Ot R07.9 CHEST PAIN, UNSPECIFIED 05/06/2017 FELIZ RESENDIZ HAYLEE S Ot R10.13 EPIGASTRIC PAIN 05/06/2017 FELIZ RESENDIZ HAYLEE S Ot R41.82 ALTERED MENTAL STATUS, UNSPECIFIED 05/06/2017 FELIZ RESENDIZ HAYLEE S Ot R53.83 OTHER FATIGUE 05/06/2017 FELIZ RESENDIZ HALYEE S Ot R57.9 SHOCK, UNSPECIFIED 05/06/2017 FELIZ RESEDNIZ HAYLEE S Ot T40.2X5A ADVERSE EFFECT OF OTHER OPIOIDS, INITIAL 05/06/2017 SEEMA PIPER DOLINE S Ot T40.4X5A ADVERSE EFFECT OF OTHER SYNTHETIC NARCOT 05/06/2017 FELIZ RESENDIZ HAYLEE S Ot Z68.42 BODY MASS INDEX (BMI) 45.0-49.9, ADULT 05/06/2017 FELIZ RESENDIZ HAYLEE S Ot Z95.1 PRESENCE OF AORTOCORONARY BYPASS GRAFT 05/06/2017 JUNFRANCISCO RESENDIZ HAYLEE S Ot Z95.5 PRESENCE OF CORONARY ANGIOPLASTY IMPLANT 05/06/2017 FELIZ RESENDIZ HAYLEE S Ot Z98.890 OTHER SPECIFIED POSTPROCEDURAL STATES 05/06/2017 FELIZ RESENDIZ HAYLEE S Ot E66.01 MORBID (SEVERE) OBESITY DUE TO EXCESS CA 05/06/2017 JUNNDER DO, HAYLEE S Ot E86.0 DEHYDRATION 05/06/2017 JUNNDER DOKARIMEHAYLEE S Ot E87.70 FLUID OVERLOAD, UNSPECIFIED 05/06/2017 JUNNDER DOKARIMEHAYLEE S Ot G47.33 OBSTRUCTIVE SLEEP APNEA (ADULT) (PEDIATR 05/06/2017 ORENDER DO HAYLEE S Ot I10 ESSENTIAL (PRIMARY) HYPERTENSION 05/06/2017 JUNNDER DO HAYLEE S Ot I25.10 ATHSCL HEART DISEASE OF [place] CORONARY 05/06/2017 JUNNDER DO, HAYLEE S Ot I70.0 ATHEROSCLEROSIS OF [place] 05/06/2017 JUNNDER DO, HAYLEE S Ot I95.9 HYPOTENSION, UNSPECIFIED 05/06/2017 JUNNDER DOKARIMEHAYLEE S Ot J18.9 PNEUMONIA, UNSPECIFIED ORGANISM 05/06/2017 JUNNDER DOKARIMEHAYLEE S Ot J20.9 ACUTE BRONCHITIS, UNSPECIFIED 05/06/2017 JUNNDER DOKARIMEHAYLEE S Ot J44.0 CHRONIC OBSTRUCTIVE PULMON DISEASE W ACU 05/06/2017 JUNNDER DOKARIMEHAYLEE S Ot J44.1 CHRONIC OBSTRUCTIVE PULMONARY DISEASE W 05/06/2017 JUNNDER DOSEEMAHAYLEE S Ot J81.1 CHRONIC PULMONARY EDEMA 05/06/2017 JUNNDER SEEMA RESENDIZLINE S Ot K21.9 GASTRO-ESOPHAGEAL REFLUX DISEASE WITHOUT 05/06/2017 JUNNDER DOKARIMEHAYLEE S Ot K55.1 CHRONIC VASCULAR DISORDERS OF INTESTINE 05/06/2017 JUNNDER DOKARIMEHAYLEE S Ot K59.00 CONSTIPATION, UNSPECIFIED 05/06/2017 JUNNDER DOKARIMEHAYLEE S Ot M54.9 DORSALGIA, UNSPECIFIED 05/06/2017 JUNNDER DO HAYLEE S Ot N17.0 ACUTE KIDNEY FAILURE WITH TUBULAR NECROS 05/06/2017 JUNNDER DO HAYLEE S Ot N28.9 DISORDER OF KIDNEY AND URETER, UNSPECIFI 05/06/2017 JUNNDER DO HAYLEE S Ot R07.9 CHEST PAIN, UNSPECIFIED 05/06/2017 JUNNDER DOKARIMEHAYLEE S Ot R33.9 RETENTION OF URINE, UNSPECIFIED 05/06/2017 JUNNDER DO HAYLEE S Ot R41.82 ALTERED MENTAL STATUS, UNSPECIFIED 05/06/2017 JUNNDER SEEMA RESENDIZLINE S Ot R53.83 OTHER FATIGUE 05/06/2017 JUNNDER DO, HAYLEE S Ot R57.8 OTHER SHOCK 05/06/2017 JUNNDER DOSEEMAHAYLEE S Ot R57.9 SHOCK, UNSPECIFIED 05/06/2017 JUNNDSEEMA MARKHAM DOLINE S Ot R94.31 ABNORMAL ELECTROCARDIOGRAM [ECG] [EKG] 05/06/2017 JUNNDSEEMA MARKHAM DOLINE S Ot T40.2X5A ADVERSE EFFECT OF OTHER OPIOIDS, INITIAL 05/06/2017 JUNNDER SEEMA RESENDIZLINE S Ot T40.4X5A ADVERSE EFFECT OF OTHER SYNTHETIC NARCOT 05/06/2017 JUNNDSEEMA MARKHAM DOLINE S Ot Z66 DO NOT RESUSCITATE 05/06/2017 SEEMA PIPER DOLINE S Ot Z68.42 BODY MASS INDEX (BMI) 45.0-49.9, ADULT 05/06/2017 SEEMA PIPER DOLINE S Ot Z95.1 PRESENCE OF AORTOCORONARY BYPASS GRAFT 05/06/2017 SEEMA PIPER DOLINE S Ot Z95.5 PRESENCE OF CORONARY ANGIOPLASTY IMPLANT 05/06/2017 SEEMA PIPER DOLINE S Ot Z98.890 OTHER SPECIFIED POSTPROCEDURAL STATES 05/20/2017 MYRNA PANDYA APRN Ot J43.8 OTHER EMPHYSEMA 05/20/2017 MYRNA PANDYA APRN Ot R09.02 HYPOXEMIA 05/22/2017 MYRNA PANDYA APRN Ot G47.33 OBSTRUCTIVE SLEEP APNEA (ADULT) (PEDIATR 05/23/2017 MYRNA PANDYA DIRECTOR OF INDIVIDUAL GIVING Ot G47.33 OBSTRUCTIVE SLEEP APNEA (ADULT) (PEDIATR 05/24/2017 MYRNA PANDYA DIRECTOR OF INDIVIDUAL GIVING Ot G47.33 OBSTRUCTIVE SLEEP APNEA (ADULT) (PEDIATR 05/24/2017 MYRNA PANDYA DIRECTOR OF INDIVIDUAL GIVING Ot G47.50 PARASOMNIA, UNSPECIFIED 05/24/2017 MYRNA PANDYA DIRECTOR OF INDIVIDUAL GIVING Ot R09.02 HYPOXEMIA 05/25/2017 MYRNA PANDYA DIRECTOR OF INDIVIDUAL GIVING Ot G47.33 OBSTRUCTIVE SLEEP APNEA (ADULT) (PEDIATR 05/25/2017 MYRNA PANDYA DIRECTOR OF INDIVIDUAL GIVING Ot G47.50 PARASOMNIA, UNSPECIFIED 05/25/2017 MYRNA PANDYA APRN Ot R09.02 HYPOXEMIA 05/27/2017 KYARA DENSONC, ALI FACP CCDS Ot E78.4 OTHER HYPERLIPIDEMIA 05/27/2017 KYARA MAHAJAN FACC, ALI FACP CCDS Ot I10 ESSENTIAL (PRIMARY) HYPERTENSION 05/27/2017 KYARA MAHAJAN FACC, ALI FACP CCDS Ot I25.10 ATHSCL HEART DISEASE OF [place] CORONARY 05/27/2017 KYARA AMHAJAN FACC, ALI FACP CCDS Ot I65.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 [...] CCDS Ot I25.10 ATHSCL HEART DISEASE OF [place] CORONARY 05/27/2017 KYARA MAHAJAN FACC, ALI FACP [...] Ot I10 ESSENTIAL (PRIMARY) HYPERTENSION 06/16/2017 KYARA DENSONC, ALI FACP CCDS Ot I25.10 ATHSCL HEART DISEASE OF [place] CORONARY 06/16/2017 KYARA MAHAJAN FACC, ALI FACP CCDS Ot 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 06/16/2017 KYARA MAHAJAN FACC, ALI FACP CCDS Ot I95.2 HYPOTENSION DUE TO DRUGS 06/16/2017 KYARA MAHAJAN FACC, ALI FACP CCDS Ot J43.8 OTHER EMPHYSEMA 06/29/2017 KYARA MAHAJAN FACC, ALI FACP CCDS Ot E78.4 OTHER HYPERLIPIDEMIA 06/29/2017 KYARA MD FACC, ALI FACP CCDS Ot I10 ESSENTIAL (PRIMARY) HYPERTENSION 06/29/2017 KYARA MAHAJAN FACC, ALI FACP CCDS Ot I25.10 ATHSCL HEART DISEASE OF [place] CORONARY 06/29/2017 KYARA MAHAJAN FACC, ALI FACP CCDS Ot 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 06/29/2017 KYARA MD FACC, ALI FACP CCDS Ot I95.2 HYPOTENSION DUE TO DRUGS 06/29/2017 KYARA MAHAJAN FACC, ALI FACP CCDS Ot J43.8 OTHER EMPHYSEMA 06/29/2017 KYARA MD FACC, ALI FACP CCDS Ot E78.4 OTHER HYPERLIPIDEMIA 06/29/2017 KYARA MD FACC, ALI FACP CCDS Ot I10 ESSENTIAL (PRIMARY) HYPERTENSION 06/29/2017 KYARA MAHAJAN FACC, ALI FACP CCDS Ot I25.10 ATHSCL HEART DISEASE OF [place] CORONARY 06/29/2017 KYARA MAHAJAN FACC, ALI FACP CCDS Ot 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 06/29/2017 KYARA MAHAJAN FACC, ALI FACP CCDS Ot I95.2 HYPOTENSION DUE TO DRUGS 06/29/2017 KYARA MAHAJAN FACC, ALI FACP CCDS Ot J43.8 OTHER EMPHYSEMA 07/08/2017 MYRNA PANDYA DIRECTOR OF INDIVIDUAL GIVING Ot J43.8 OTHER EMPHYSEMA 07/08/2017 MYRNA PANDYA DIRECTOR OF INDIVIDUAL GIVING Ot R09.02 HYPOXEMIA 07/27/2017 MYRNA PANDYA DIRECTOR OF INDIVIDUAL GIVING Ot J43.8 OTHER EMPHYSEMA 07/27/2017 MYRNA PANDYA APRN Ot R09.02 HYPOXEMIA 12/15/2017 Ot 241.0 NONT OX UNINODULAR GOITER 12/15/2017 Ot 719.45 SAIRA NT PAIN-PELVIS 12/15/2017 JERONIMO PITTMAN MD Ot 241 .0 NONTOX UNINODULAR GOITER 12/15/2017 JERONIMO PITTMAN MD Ot 241 .0 NONTOX UNINODULAR GOITER 12/15/2017 JERONIMO PITTMAN MD Ot V72.63 PRE-PROCEDURAL LABORATORY EXAMINATION 12/15/2017 JERONIMO PITTMAN MD Ot V72.81 [id number] CARDIOVASCULAR 12/15/2017 JERONIMO PITTMAN MD Ot V74 .8 SCREEN-BACTERIAL DIS NEC 12/15/2017 MERCEEDS SMART MD Ot V72.84 EXAM PRE-OPERATIVE NOS 12/15/2017 BING MAHAJAN, MERCEDES Ot 787.91 DIARRHEA 12/15/2017 MERCEDES SMART MD Ot 789.1 HEPATOMEGALY 12/15/2017 MERCEDES SMART MD Ot 787.3 FLATUL/ERUCTAT/GAS PAIN 12/15/2017 MERCEDES SMART MD Ot 787.91 DIARRHEA 12/15/2017 MERCEDES SMART MD Ot 789.00 ABDOMINAL PAIN, UNSPECIFIED SITE 12/15/2017 KYARA MAHAJAN FAC, ALI FACP CCDS Ot 414.01 CORONARY ATHEROSCLEROSIS OF [place] CORON 12/15/2017 KYARA MAHAJAN FAC, ALI FACP CCDS Ot 786.50 CHEST PAIN NOS 12/15/2017 Ot 787.91 GODFREY RRHEA 12/15/2017 GELCHENG RG DO A Ot 787.91 DI[place]A 12/15/2017 Ot 787.91 GODFREY RRHEA 12/15/2017 MERCEDES SMART MD Ot V72.84 EXAM PRE-OPERATIVE NOS 12/15/2017 ERICK NASH SLEEVE SETTER Ot E78.5 HYPERLIPIDEMIA, UNSPECIFIED 12/15/2017 ERICK NASH L SLEEVE SETTER Ot I 10 ESSENTIAL (PRIMARY) HYPERTENSION 12/15/2017 ERICK NASH SLEEVE SETTER Ot I25.10 ATHSCL HEART DISEASE OF [place] CORONARY 12/15/2017 ERICK NASH SLEEVE SETTER Ot I73.9 PERIPHERAL VASCULAR DISEASE, UNSPECIFIED 12/15/2017 ERICK NASH L SLEEVE SETTER Ot I77.9 DISORDER OF ARTERIES AND ARTERIOLES, UNS 12/15/2017 ERICK NASH SLEEVE SETTER Ot R07.9 CHEST PAIN, UNSPECIFIED 12/15/2017 KEITHSHAHRZAD RESENDIZ HAYLEE S Ot E04.1 NONTOXIC SINGLE THYROID NODULE 12/15/2017 YAYA MARIE MD Ot M54. 5 LOW BACK PAIN 12/15/2017 YAYA MARIE MD Ot M54. 6 PAIN IN THORACIC SPINE 12/15/2017 YAYA MARIE MD Ot M47.816 SPONDYLOSIS W/O MYELOPATHY OR RADICULOPA 12/15/2017 YAYA MARIE MD Ot M51. 16 INTERVERTEBRAL DISC DISORDERS W RADICULO 12/15/2017 YAYA MARIE MD Ot Z79.899 OTHER MOTH PROOFER (CURRENT) DRUG THERAPY 12/15/2017 LATRICIA ALVARES Edwin DIRECTOR OF INDIVIDUAL GIVING Ot 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, OCCIPT- 12/15/2017 NICOLASA ALVARESANTONIO Pineda DIRECTOR OF INDIVIDUAL GIVING Ot R91.1 SOLITARY PULMONARY NODULE 12/15/2017 LATRICIA ALVARES Edwin DIRECTOR OF INDIVIDUAL GIVING Ot R05 COUGH 12/15/2017 LATRICIA ALVARES Edwin DIRECTOR OF INDIVIDUAL GIVING Ot R09.89 OTH SYMPTOMS AND SIGNS INVOLVING THE CIR 12/15/2017 KYARA DENSONC, ALI FACP CCDS Ot E78.4 OTHER HYPERLIPIDEMIA 12/15/2017 KYARA DENSONC, ALI FACP CCDS Ot I10 ESSENTIAL (PRIMARY) HYPERTENSION 12/15/2017 KYARA MAHAJAN FACC, ALI FACP CCDS Ot I25.10 ATHSCL HEART DISEASE OF [place] CORONARY 12/15/2017 KYARA MAHAJAN FACC, ALI FACP CCDS Ot 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 12/15/2017 KYARA MAHAJAN FACC, ALI FACP CCDS Ot I70.213 ATHSCL [place] ARTERIES OF EXTRM W INTRMT 12/15/2017 KYARA DENSONC, ALI FACP CCDS Ot J43.8 OTHER EMPHYSEMA 12/15/2017 KYARA MAHAJAN FACC, ALI FACP CCDS Ot R06.02 SHORTNESS OF BREATH 12/15/2017 KYARA MAHAJAN FACC, ALI FACP CCDS Ot Z87.891 PERSONAL HISTORY OF NICOTINE DEPENDENCE 12/15/2017 MYRNA PANDYA DIRECTOR OF INDIVIDUAL GIVING Ot J43.8 OTHER EMPHYSEMA 12/15/2017 MYRNA PANDYA APRN Ot R09.02 HYPOXEMIA 12/15/2017 KYARA MAHAJAN FACC, ALI FACP CCDS Ot E78.4 OTHER HYPERLIPIDEMIA 12/15/2017 KYARA MAHAJAN FACC, ALI FACP CCDS Ot I10 ESSENTIAL (PRIMARY) HYPERTENSION 12/15/2017 KYARA MAHAJAN FACC, ALI FACP CCDS Ot I25.10 ATHSCL HEART DISEASE OF [place] CORONARY 12/15/2017 YKARA MAHAJAN FACC, ALI FACP CCDS Ot 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 12/15/2017 KYARA MAHAJAN FACC, ALI FACP CCDS Ot I95.2 HYPOTENSION DUE TO DRUGS 12/15/2017 KYARA MAHAJAN FACC, ALI FACP CCDS Ot J43.8 OTHER EMPHYSEMA 05/15/2018 Ot 241.0 NONT OX UNINODULAR GOITER 05/15/2018 JERONIMO PITTMAN MD Ot 241 .0 NONTOX UNINODULAR GOITER 05/15/2018 JERONIMO PITTMAN MD Ot 241 .0 NONTOX UNINODULAR GOITER 05/15/2018 JERONIMO PITTMAN MD Ot V72.63 PRE-PROCEDURAL LABORATORY EXAMINATION 05/15/2018 JERONIMO PITTMAN MD Ot V72.81 [id number] CARDIOVASCULAR 05/15/2018 JERONIMO PITTMAN MD Ot V74 .8 SCREEN-BACTERIAL DIS NEC 05/15/2018 MERCEDES SMART MD Ot V72.84 EXAM PRE-OPERATIVE NOS 05/15/2018 MERCEDES SMART MD Ot 787.91 DIARRHEA 05/15/2018 MERCEDES SMART MD Ot 789.1 HEPATOMEGALY 05/15/2018 MERCEDES SMART MD Ot 787.3 FLATUL/ERUCTAT/GAS PAIN 05/15/2018 MERCEDES SMART MD Ot 787.91 DIARRHEA 05/15/2018 MERCEDES SMART MD Ot 789.00 ABDOMINAL PAIN, UNSPECIFIED SITE 05/15/2018 KYARA MAHAJAN FAC, JIM FLORES CCDS Ot 414.01 CORONARY ATHEROSCLEROSIS OF [place] CORON 05/15/2018 KYARA MAHAJAN FACC, JIM FLORES CCDS Ot 786.50 CHEST PAIN NOS 05/15/2018 Ot 787.91 GODFREY RRHEA 05/15/2018 GELLENREID DO, CHENG A Ot 787.91 DIARRHEA 05/15/2018 Ot 787.91 GODFREY RRHEA 05/15/2018 MERCEDES SMART MD Ot V72.84 EXAM PRE-OPERATIVE NOS 05/15/2018 ERICK NASH SLEEVE SETTER Ot E78.5 HYPERLIPIDEMIA, UNSPECIFIED 05/15/2018 ERICK NASH SLEEVE SETTER Ot I 10 ESSENTIAL (PRIMARY) HYPERTENSION 05/15/2018 ERICK NASH SLEEVE SETTER Ot I25.10 ATHSCL HEART DISEASE OF [place] CORONARY 05/15/2018 ERICK NASH SLEEVE SETTER Ot I73.9 PERIPHERAL VASCULAR DISEASE, UNSPECIFIED 05/15/2018 ERICK NASH SLEEVE SETTER Ot I77.9 DISORDER OF ARTERIES AND ARTERIOLES, UNS 05/15/2018 ERICK NASH SLEEVE SETTER Ot R07.9 CHEST PAIN, UNSPECIFIED 05/15/2018 HAYLEE PIPER DO Ot E04.1 NONTOXIC SINGLE THYROID NODULE 05/15/2018 YAYA MARIE MD Ot M54. 5 LOW BACK PAIN 05/15/2018 YAYA MARIE MD Ot M54. 6 PAIN IN THORACIC SPINE 05/15/2018 YAYA MARIE MD Ot M47.816 SPONDYLOSIS W/O MYELOPATHY OR RADICULOPA 05/15/2018 YAYA MARIE MD Ot M51. 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, OCCIPT- 05/15/2018 LATRICIA ALVARES DIRECTOR OF INDIVIDUAL GIVING Ot R91.1 SOLITARY PULMONARY NODULE 05/15/2018 LATRICIA ALVARES DIRECTOR OF INDIVIDUAL GIVING Ot R05 COUGH 05/15/2018 LATRICIA ALVARES DIRECTOR OF INDIVIDUAL GIVING Ot R09.89 OTH SYMPTOMS AND SIGNS INVOLVING THE CIR 05/15/2018 KYARA MAHAJAN FACC, ALI FACP CCDS Ot E78.4 OTHER HYPERLIPIDEMIA 05/15/2018 KYARA MAHAJAN FACC, ALI FACP CCDS Ot I10 ESSENTIAL (PRIMARY) HYPERTENSION 05/15/2018 KYARA MAHAJAN FACC, ALI FACP CCDS Ot I25.10 ATHSCL HEART DISEASE OF [place] CORONARY 05/15/2018 KYARA MAHAJAN FACC, ALI FACP CCDS Ot 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 05/15/2018 KYARA MAHAJAN FACC, ALI FACP CCDS Ot I70.213 ATHSCL [place] ARTERIES OF EXTRM W INTRMT 05/15/2018 KYARA MAHAJAN FACC, ALI FACP CCDS Ot J43.8 OTHER EMPHYSEMA 05/15/2018 KYARA MAHAJAN FACC, ALI FACP CCDS Ot R06.02 SHORTNESS OF BREATH 05/15/2018 KYARA MAHAJAN FACC, ALI FACP CCDS Ot Z87.891 PERSONAL HISTORY OF NICOTINE DEPENDENCE 05/15/2018 MYRNA PANDYA APRN Ot J43.8 OTHER EMPHYSEMA 05/15/2018 MYRNA PANDYA APRN Ot R09.02 HYPOXEMIA 05/15/2018 KYARA MD FACC, ALI FACP CCDS Ot E78.4 OTHER HYPERLIPIDEMIA 05/15/2018 KYARA MAHAJAN [facility], ALI FACP CCDS Ot I10 ESSENTIAL (PRIMARY) HYPERTENSION 05/15/2018 KYARA MAHAJAN [facility], ALI FACP CCDS Ot I25.10 ATHSCL HEART DISEASE OF [place] CORONARY 05/15/2018 KYARA MAHAJAN [facility], ALI FACP CCDS Ot 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 05/15/2018 KYARA MAHAJAN [facility], ALI FACP CCDS Ot I95.2 HYPOTENSION DUE TO DRUGS 05/15/2018 KYARA MAHAJAN [facility], ALI FACP CCDS Ot J43.8 OTHER EMPHYSEMA 05/15/2018 VANDANA MARCUM MD Ot D72.829 ELEVATED WHITE BLOOD CELL COUNT, UNSPECI 05/15/2018 VANDANA MARCUM MD Ot E78.00 PURE HYPERCHOLESTEROLEMIA, UNSPECIFIED 05/15/2018 VANDANA MARCUM MD Ot F32.9 MAJOR DEPRESSIVE DISORDER, SINGLE EPISOD 05/15/2018 VANDANA MARCUM MD Ot I10 ESSENTIAL (PRIMARY) HYPERTENSION 05/15/2018 VANDANA MARCUM MD Ot I25.10 ATHSCL HEART DISEASE OF [place] CORONARY 05/15/2018 VANDANA MARCUM MD Ot I73.9 PERIPHERAL VASCULAR DISEASE, UNSPECIFIED 05/15/2018 VANDANA MARCUM MD Ot J44.9 CHRONIC OBSTRUCTIVE PULMONARY DISEASE, U 05/15/2018 VANDANA MARCUM MD Ot K21.9 GASTRO-ESOPHAGEAL REFLUX DISEASE WITHOUT 05/15/2018 VANDANA MARCUM MD Ot M79.1 MYALGIA 05/15/2018 VANDANA MARCUM MD Ot R05 COUGH 05/15/2018 VANDANA MARCUM MD Ot R42 DIZZINESS AND GIDDINESS 05/15/2018 VANDANA MARCUM MD Ot Z79.51 MOTH PROOFER (CURRENT) USE OF INHALED STERO 05/15/2018 VANDANA MARCUM MD Ot Z79.82 CORRECTION (CURRENT) USE OF ASPIRIN 05/15/2018 VANDANA MARCUM MD Ot Z87.01 PERSONAL HISTORY OF PNEUMONIA (RECURRENT 05/15/2018 VANDANA MARCUM MD, Ot Z87.19 PERSONAL HISTORY OF OTHER DISEASES OF TH 05/15/2018 VANDANA MARCUM MD, Ot Z87.891 PERSONAL HISTORY OF NICOTINE DEPENDENCE 05/15/2018 VANDANA MARCUM MD, Ot Z88.2 ALLERGY STATUS TO SULFONAMIDES STATUS 05/15/2018 VANDANA MARCUM MD, Ot Z95.5 PRESENCE OF CORONARY ANGIOPLASTY IMPLANT 05/15/2018 VANDANA MARCUM MD, Ot Z99.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 ON SUPPLEMENTAL OXYGEN 05/18/2018 VANDANA MARCUM MD, Ot D72.829 ELEVATED WHITE BLOOD CELL COUNT, UNSPECI 05/18/2018 VANDANA MARCUM MD, Ot E78.00 PURE HYPERCHOLESTEROLEMIA, UNSPECIFIED 05/18/2018 VANDANA MARCUM MD, Ot F32.9 MAJOR DEPRESSIVE DISORDER, SINGLE EPISOD 05/18/2018 VANDANA MARCUM MD, Ot I10 ESSENTIAL (PRIMARY) HYPERTENSION 05/18/2018 VANDANA MARCUM MD, Ot I25.10 ATHSCL HEART DISEASE OF [place] CORONARY 05/18/2018 VANDANA MARCUM MD, Ot I73.9 PERIPHERAL VASCULAR DISEASE, UNSPECIFIED 05/18/2018 VANDANA MARCUM MD, Ot J44.9 CHRONIC OBSTRUCTIVE PULMONARY DISEASE, U 05/18/2018 VANDANA MARCUM MD, Ot K21.9 GASTRO-ESOPHAGEAL REFLUX DISEASE WITHOUT 05/18/2018 VANDANA MARCUM MD, Ot M79.1 MYALGIA 05/18/2018 VANDANA MARCUM MD, Ot R05 COUGH 05/18/2018 VANDANA MARCUM MD, Ot R42 DIZZINESS AND GIDDINESS 05/18/2018 VANDANA MARCUM MD, Ot Z79.51 CORRECTION (CURRENT) USE OF INHALED STERO 05/18/2018 VANDANA MARCUM MD, Ot Z79.82 CORRECTION (CURRENT) USE OF ASPIRIN 05/18/2018 VANDANA MARCUM MD, Ot Z87.01 PERSONAL HISTORY OF PNEUMONIA (RECURRENT 05/18/2018 BRUEGGEMANN MD, VANDANA T Ot Z87.19 PERSONAL HISTORY OF OTHER DISEASES OF TH 05/18/2018 VANDANA MARCUM MD Ot Z87.891 PERSONAL HISTORY OF NICOTINE DEPENDENCE 05/18/2018 VANDANA MARCUM MD Ot Z88.2 ALLERGY STATUS TO SULFONAMIDES STATUS 05/18/2018 VANDANA MARCUM MD Ot Z95.5 PRESENCE OF CORONARY ANGIOPLASTY IMPLANT 05/18/2018 VANDANA MARCUM MD Ot Z99.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 ON SUPPLEMENTAL OXYGEN 03/16/2019 Ot 787.91 GODFREY RRHEA 03/16/2019 Ot 787.91 GODFREY RRHEA 03/17/2019 LULU LENZ MD Ot Z01.818 ENCOUNTER FOR OTHER PREPROCEDURAL EXAMIN 03/17/2019 LULU LENZ MD Ot Z01.818 ENCOUNTER FOR OTHER PREPROCEDURAL EXAMIN 03/18/2019 LULU LENZ MD Ot E78.00 PURE HYPERCHOLESTEROLEMIA, UNSPECIFIED 03/18/2019 LULU LENZ MD Ot E78 .5 HYPERLIPIDEMIA, UNSPECIFIED 03/18/2019 LULU LENZ MD Ot F32 .9 MAJOR DEPRESSIVE DISORDER, SINGLE EPISOD 03/18/2019 LULU LENZ MD Ot H25.11 AGE-RELATED NUCLEAR CATARACT, RIGHT EYE 03/18/2019 LULU LENZ MD Ot I06 .9 RHEUMATIC AORTIC VALVE DISEASE, UNSPECIF 03/18/2019 LULU LENZ MD Ot I11 .0 HYPERTENSIVE HEART DISEASE WITH HEART FA 03/18/2019 LULU LENZ MD Ot I50 .9 HEART FAILURE, UNSPECIFIED 03/18/2019 LULU LENZ MD Ot J45.909 UNSPECIFIED ASTHMA, UNCOMPLICATED 03/18/2019 LULU LENZ MD Ot Z79.82 MOTH PROOFER (CURRENT) USE OF ASPIRIN 03/18/2019 LULU LENZ MD Ot Z79.899 OTHER MOTH PROOFER (CURRENT) DRUG THERAPY 03/18/2019 LULU LENZ MD Ot Z80 .3 FAMILY HISTORY OF MALIGNANT NEOPLASM OF 03/18/2019 LULU LENZ MD Ot Z87.891 PERSONAL HISTORY OF NICOTINE DEPENDENCE 03/28/2019 LULU LENZ MD Ot E78.00 PURE HYPERCHOLESTEROLEMIA, UNSPECIFIED 03/28/2019 YOANNA MAHAJAN, LULU Lee Ot E78 .5 HYPERLIPIDEMIA, UNSPECIFIED 03/28/2019 LULU LENZ MD Ot F32 .9 MAJOR DEPRESSIVE DISORDER, SINGLE EPISOD 03/28/2019 LULU LENZ MD Ot H25.11 AGE-RELATED NUCLEAR CATARACT, RIGHT EYE 03/28/2019 LULU LENZ MD Ot I06 .9 RHEUMATIC AORTIC VALVE DISEASE, UNSPECIF 03/28/2019 LULU LENZ MD Ot I11 .0 HYPERTENSIVE HEART DISEASE WITH HEART FA 03/28/2019 LULU LENZ MD Ot I50 .9 HEART FAILURE, UNSPECIFIED 03/28/2019 LULU LENZ MD Ot J45.909 UNSPECIFIED ASTHMA, UNCOMPLICATED 03/28/2019 LULU LENZ MD Ot Z79.82 MOTH PROOFER (CURRENT) USE OF ASPIRIN 03/28/2019 LULU LENZ MD Ot Z79.899 OTHER MOTH PROOFER (CURRENT) DRUG THERAPY 03/28/2019 LULU LENZ MD Ot Z80 .3 FAMILY HISTORY OF MALIGNANT NEOPLASM OF 03/28/2019 LULU LENZ MD Ot Z87.891 PERSONAL HISTORY OF NICOTINE DEPENDENCE 09/24/2019 ORENDER DO, HAYLEE S Ot D61.818 OTHER PANCYTOPENIA 09/24/2019 ORENDER DO, HYALEE S Ot E78.00 PURE HYPERCHOLESTEROLEMIA, UNSPECIFIED 09/24/2019 ORENDER DO, HAYLEE S Ot F32.9 MAJOR DEPRESSIVE DISORDER, SINGLE EPISOD 09/24/2019 ORENDER DO, HAYLEE S Ot I10 ESSENTIAL (PRIMARY) HYPERTENSION 09/24/2019 ORENDER DO, HAYLEE S Ot I25.10 ATHSCL HEART DISEASE OF [place] CORONARY 09/24/2019 ORENDER DO, HAYLEE S Ot I73.9 PERIPHERAL VASCULAR DISEASE, UNSPECIFIED 09/24/2019 ORENDER DO, HAYLEE S Ot J18.9 PNEUMONIA, UNSPECIFIED ORGANISM 09/24/2019 ORENDER DO, HAYLEE S Ot J30.2 OTHER SEASONAL ALLERGIC RHINITIS 09/24/2019 ORENDER DO, HAYLEE S Ot J44.0 CHR OBSTRUCTIVE PULMON DISEASE WITH (ACU 09/24/2019 ORENDER DO, HAYLEE S Ot J44.1 CHRONIC OBSTRUCTIVE PULMONARY DISEASE W 09/24/2019 ORENDER DO, HAYLEE S Ot K21.9 GASTRO-ESOPHAGEAL REFLUX DISEASE WITHOUT 09/24/2019 ORENDER DO, HAYLEE S Ot M19.91 PRIMARY OSTEOARTHRITIS, UNSPECIFIED SITE 09/24/2019 ORENDER DO, HAYLEE S Ot M54.9 DORSALGIA, UNSPECIFIED 09/24/2019 ORENDER DO, HAYLEE S Ot R09.02 HYPOXEMIA 09/24/2019 ORENDER DO, HAYLEE S Ot R53.1 WEAKNESS 09/24/2019 ORENDER DO, HAYLEE S Ot Z87.19 PERSONAL HISTORY OF OTHER DISEASES OF TH 09/24/2019 ORENDER DO, HAYLEE S Ot Z87.891 PERSONAL HISTORY OF NICOTINE DEPENDENCE 09/24/2019 ORENDER DO, HAYLEE S Ot Z95.5 PRESENCE OF CORONARY ANGIOPLASTY IMPLANT 10/07/2019 YULIANA TEJADA APRN Ot D61.818 OTHER PANCYTOPENIA 10/07/2019 YULIANA TEJADA APRN Ot E78.00 PURE HYPERCHOLESTEROLEMIA, UNSPECIFIED 10/07/2019 YULIANA TEJADA APRN Ot F32 .9 MAJOR DEPRESSIVE DISORDER, SINGLE EPISOD 10/07/2019 YULIANA TEJADA APRN Ot I10 ESSENTIAL (PRIMARY) HYPERTENSION 10/07/2019 YULIANA TEJADA APRN Ot I25.10 ATHSCL HEART DISEASE OF [place] CORONARY 10/07/2019 YULIANA TEJADA APRN Ot J44 .9 CHRONIC OBSTRUCTIVE PULMONARY DISEASE, U 10/07/2019 YULIANA TEJADA APRN Ot K21 .9 GASTRO-ESOPHAGEAL REFLUX DISEASE WITHOUT 10/07/2019 YULIANA TEJADA APRN Ot R53 .1 WEAKNESS 10/07/2019 YULIANA TEJADA APRN Ot Z79.82 CORRECTION (CURRENT) USE OF ASPIRIN 10/07/2019 YULIANA TEJADA APRN Ot Z87.891 PERSONAL HISTORY OF NICOTINE DEPENDENCE 10/07/2019 YULIANA TEJADA APRN Ot Z88 .2 ALLERGY STATUS TO SULFONAMIDES STATUS 10/11/2019 YULIANA TEJADA APRN Ot D61.818 OTHER PANCYTOPENIA 10/11/2019 YULIANA TEJADA APRN Ot E78.00 PURE HYPERCHOLESTEROLEMIA, UNSPECIFIED 10/11/2019 YULIANA TEJADA APRN Ot F32 .9 MAJOR DEPRESSIVE DISORDER, SINGLE EPISOD 10/11/2019 YULIANA TEJAAD APRN Ot I10 ESSENTIAL (PRIMARY) HYPERTENSION 10/11/2019 YULIANA TEJADA APRN Ot I25.10 ATHSCL HEART DISEASE OF [place] CORONARY 10/11/2019 YULIANA TEJADA APRN Ot J44 .9 CHRONIC OBSTRUCTIVE PULMONARY DISEASE, U 10/11/2019 YULIANA TEJADA APRN Ot K21 .9 GASTRO-ESOPHAGEAL REFLUX DISEASE WITHOUT 10/11/2019 YULIANA TEJADA APRN Ot R53 .1 WEAKNESS 10/11/2019 YULIANA TEJADA APRN Ot Z79.82 MOTH PROOFER (CURRENT) USE OF ASPIRIN 10/11/2019 YULIANA TEJADA APRN Ot Z87.891 PERSONAL HISTORY OF NICOTINE DEPENDENCE 10/11/2019 YULIANA TEJADA APRN Ot Z88 .2 ALLERGY STATUS TO SULFONAMIDES STATUS 10/18/2019 CRISTINE NAPOLES Ot R79.1 ABNORMAL COAGULATION PROFILE 10/18/2019 CRISTINE NAPOLES Ot R79.1 ABNORMAL COAGULATION PROFILE 10/18/2019 CRISTINE NAPOLES Ot 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, UNSPECIFIED 10/18/2019 CRISTINE NAPOLES Ot D61.818 OTHER PANCYTOPENIA 10/18/2019 CRISTINE NAPOLES Ot D69.6 THROMBOCYTOPENIA, UNSPECIFIED 10/18/2019 CRISTINE NAPOLES Ot E78.00 PURE HYPERCHOLESTEROLEMIA, UNSPECIFIED 10/18/2019 CRISTINE NAPOLES Ot I10 ESSENTIAL (PRIMARY) HYPERTENSION 10/18/2019 CRISTINE NAPOLES Ot I25.10 ATHSCL HEART DISEASE OF [place] CORONARY 10/18/2019 CRISTINE NAPOLES Ot I73.9 PERIPHERAL VASCULAR DISEASE, UNSPECIFIED 10/18/2019 CRISTINE NAPOLES Ot J44.9 CHRONIC OBSTRUCTIVE PULMONARY DISEASE, U 10/18/2019 CRISTINE NAPOLES Ot M47.9 SPONDYLOSIS, UNSPECIFIED 10/18/2019 CRISTINE NAPOLES Ot Z79.899 OTHER CORRECTION (CURRENT) DRUG THERAPY 10/18/2019 CRISTINE NAPOLES Ot Z80.3 FAMILY HISTORY OF MALIGNANT NEOPLASM OF 10/18/2019 CRISTINE NAPOLES Ot Z86.010 PERSONAL HISTORY OF COLONIC POLYPS 10/18/2019 YESIKACRISTINE Ot Z87.891 PERSONAL HISTORY OF NICOTINE DEPENDENCE 10/18/2019 YESIKACRISTINE Ot Z88.2 ALLERGY STATUS TO SULFONAMIDES STATUS 10/18/2019 YESIKACRISTINE Ot Z95.5 PRESENCE OF CORONARY ANGIOPLASTY IMPLANT 10/18/2019 YESIKACRISTINE Ot Z99.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 ON SUPPLEMENTAL OXYGEN 10/18/2019 YESIKACRISTINE Ot R79.1 ABNORMAL COAGULATION PROFILE 10/26/2019 YESIKACRISTINE Ot 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, UNSPECIFIED 10/26/2019 YESIKACRISTINE Ot D61.818 OTHER PANCYTOPENIA 10/26/2019 CRISTINE NAPOLES Ot D69.6 THROMBOCYTOPENIA, UNSPECIFIED 10/26/2019 CRISTINE NAPOLES Ot E78.00 PURE HYPERCHOLESTEROLEMIA, UNSPECIFIED 10/26/2019 CRISTINE NAPOLES Ot I10 ESSENTIAL (PRIMARY) HYPERTENSION 10/26/2019 CRISTINE NAPOLES Ot I25.10 ATHSCL HEART DISEASE OF [place] CORONARY 10/26/2019 YESIKACRISTINE Ot I73.9 PERIPHERAL VASCULAR DISEASE, UNSPECIFIED 10/26/2019 CRISTINE NAPOLES Ot J44.9 CHRONIC OBSTRUCTIVE PULMONARY DISEASE, U 10/26/2019 CRISTINE NAPOLES Ot M47.9 SPONDYLOSIS, UNSPECIFIED 10/26/2019 YESIKACRISTINE Ot Z79.899 OTHER MOTH PROOFER (CURRENT) DRUG THERAPY 10/26/2019 CRISTINE NAPOLES Ot Z80.3 FAMILY HISTORY OF MALIGNANT NEOPLASM OF 10/26/2019 CRISTINE NAPOLES Ot Z86.010 PERSONAL HISTORY OF COLONIC POLYPS 10/26/2019 YESIKACRISTINE Ot Z87.891 PERSONAL HISTORY OF NICOTINE DEPENDENCE 10/26/2019 YESIKACRISTINE Ot Z88.2 ALLERGY STATUS TO SULFONAMIDES STATUS 10/26/2019 CRISTINE NAPOLES Ot Z95.5 PRESENCE OF CORONARY ANGIOPLASTY IMPLANT 10/26/2019 CRISTINE NAPOLES Ot Z99.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 ON SUPPLEMENTAL OXYGEN 10/27/2019 CRISTINE NAPOLES Ot 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, UNSPECIFIED 10/27/2019 CRISTINE NAPOLES Ot D61.818 OTHER PANCYTOPENIA 10/27/2019 CRISTINE NAPOLES Ot D69.6 THROMBOCYTOPENIA, UNSPECIFIED 10/27/2019 CRISTINE NAPOLES Edwin Ot E78.00 PURE HYPERCHOLESTEROLEMIA, UNSPECIFIED 10/27/2019 CRISTINE NAPOLES Edwin Ot I10 ESSENTIAL (PRIMARY) HYPERTENSION 10/27/2019 CRISTINE NAPOLES Edwin Ot I25.10 ATHSCL HEART DISEASE OF [place] CORONARY 10/27/2019 CRISTINE NAPOLES Edwin Ot I73.9 PERIPHERAL VASCULAR DISEASE, UNSPECIFIED 10/27/2019 CRISTINE NAPOLES Edwin Ot J44.9 CHRONIC OBSTRUCTIVE PULMONARY DISEASE, U 10/27/2019 CRISTINE NAPOLES Edwin Ot M47.9 SPONDYLOSIS, UNSPECIFIED 10/27/2019 CRISTINE NAPOLES Edwin Ot Z79.899 OTHER CORRECTION (CURRENT) DRUG THERAPY 10/27/2019 CRISTINE NAPOLES Edwin Ot Z80.3 FAMILY HISTORY OF MALIGNANT NEOPLASM OF 10/27/2019 CRISTINE NAPOLES Edwin Ot Z86.010 PERSONAL HISTORY OF COLONIC POLYPS 10/27/2019 CRISTINE NAPOLES Edwin Ot Z87.891 PERSONAL HISTORY OF NICOTINE DEPENDENCE 10/27/2019 CRISTINE NAPOLES Edwin Ot Z88.2 ALLERGY STATUS TO SULFONAMIDES STATUS 10/27/2019 CRISTINE NAPOLES Edwin Ot Z95.5 PRESENCE OF CORONARY ANGIOPLASTY IMPLANT 10/27/2019 CRISTINE NAPOLES Edwin Ot Z99.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 ON SUPPLEMENTAL OXYGEN 10/28/2019 W D69.6 Thro mbocytopenia Feliz, Haylee S. 10/28/2019 W D61.818 Ot her pancytopenia Junnder, Haylee S. 10/28/2019 W I10 Essent ial (primary) hypertension Junnder, Haylee S. 10/28/2019 W J44.9 Sole Stitcher Hand reyna obstructive pulmonary disease, unspecified Orender, Haylee S. 10/28/2019 W D61.818 Pa ncytopenia Junnder, Haylee S. 10/28/2019 W J44.0 Sole Stitcher Hand reyna obstructive pulmonary disease with acute lower respiratory infection Orendshahrzad Haylee S. 10/28/2019 W J44.1 Sole Stitcher Hand reyna obstructive pulmonary disease with (acute) exacerbation Junnder, Haylee S. 10/28/2019 W J44.0 COPD with lower respiratory infection Seema Piperline S. 10/28/2019 W J44.1 COPD with exacerbation Seema Piperline S. 10/28/2019 W D61.818 Pa ncytopenia Karime Piperqueline S. 10/28/2019 W J44.9 Sole Stitcher Hand reyna obstructive pulmonary disease, unspecified Junnder, Haylee S. 10/28/2019 W J44.1 Sole Stitcher Hand reyna obstructive pulmonary disease with (acute) exacerbation Seema Piperline S. 11/02/2019 YESIKA, BOBAN N Ot D61.818 OTHER PANCYTOPENIA 11/02/2019 YESIKA, BOBAN N Ot E78.00 PURE HYPERCHOLESTEROLEMIA, UNSPECIFIED 11/02/2019 YESIKA, BOBAN N Ot F32.9 MAJOR DEPRESSIVE DISORDER, SINGLE EPISOD 11/02/2019 YESIKA, BOBAN N Ot I10 ESSENTIAL (PRIMARY) HYPERTENSION 11/02/2019 YESIKA, BOBAN N Ot I25.10 ATHSCL HEART DISEASE OF [place] CORONARY 11/02/2019 YESIKA, BOBAN N Ot J44.9 CHRONIC OBSTRUCTIVE PULMONARY DISEASE, U 11/02/2019 YESIKA, BOBAN N Ot Z79.82 MOTH PROOFER (CURRENT) USE OF ASPIRIN 11/02/2019 YESIKA, BOBAN N Ot Z87.891 PERSONAL HISTORY OF NICOTINE DEPENDENCE 11/09/2019 YESIKA, BOBAN N Ot D61.818 OTHER PANCYTOPENIA 11/09/2019 YESIKA, BOBAN N Ot E78.00 PURE HYPERCHOLESTEROLEMIA, UNSPECIFIED 11/09/2019 YESIKA, BOBAN N Ot F32.9 MAJOR DEPRESSIVE DISORDER, SINGLE EPISOD 11/09/2019 YESIKA, BOBAN N Ot I10 ESSENTIAL (PRIMARY) HYPERTENSION 11/09/2019 YESIKA, BOBAN N Ot I25.10 ATHSCL HEART DISEASE OF [place] CORONARY 11/09/2019 YESIKA, BOBAN N Ot J44.9 CHRONIC OBSTRUCTIVE PULMONARY DISEASE, U 11/09/2019 YESIKA, BOBAN N Ot Z79.82 CORRECTION (CURRENT) USE OF ASPIRIN 11/09/2019 YESIKA, BOBAN N Ot Z87.891 PERSONAL HISTORY OF NICOTINE DEPENDENCE 11/09/2019 MERCEDES SMART MD Ot Z01.81 8 ENCOUNTER FOR OTHER PREPROCEDURAL EXAMIN 11/10/2019 ERICK NASH SLEEVE SETTER Ot E78.5 HYPERLIPIDEMIA, UNSPECIFIED 11/10/2019 ERICK NASH SLEEVE SETTER Ot I 10 ESSENTIAL (PRIMARY) HYPERTENSION 11/10/2019 ERICK NASH SLEEVE SETTER Ot I25.10 ATHSCL HEART DISEASE OF [place] CORONARY 11/10/2019 ERICK NASH SLEEVE SETTER Ot I73.9 PERIPHERAL VASCULAR DISEASE, UNSPECIFIED 11/10/2019 ERICK NASH SLEEVE SETTER Ot I77.9 DISORDER OF ARTERIES AND ARTERIOLES, UNS 11/10/2019 ERICK NASH SLEEVE SETTER Ot R07.9 CHEST PAIN, UNSPECIFIED 11/10/2019 FELIZ DO HAYLEE S Ot E04.1 NONTOXIC SINGLE THYROID NODULE 11/10/2019 YAYA MARIE MD Ot M54. 5 LOW BACK PAIN 11/10/2019 YAYA MARIE MD Ot M54. 6 PAIN IN THORACIC SPINE 11/10/2019 YAYA MARIE MD Ot M47.816 SPONDYLOSIS W/O MYELOPATHY OR RADICULOPA 11/10/2019 YAYA MARIE MD Ot M51. 16 INTERVERTEBRAL DISC DISORDERS W RADICULO 11/10/2019 YAYA MARIE MD Ot Z79.899 OTHER CORRECTION (CURRENT) DRUG THERAPY 11/10/2019 LATRICIA ALVARES APRN Ot 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, OCCIPT- 11/10/2019 LATRICIA ALVARES DIRECTOR OF INDIVIDUAL GIVING Ot R91.1 SOLITARY PULMONARY NODULE 11/10/2019 LATRICIA ALVARES DIRECTOR OF INDIVIDUAL GIVING Ot R05 COUGH 11/10/2019 LATRICIA ALVARES DIRECTOR OF INDIVIDUAL GIVING Ot R09.89 OTH SYMPTOMS AND SIGNS INVOLVING THE CIR 11/10/2019 KYARA MAHAJAN FACC, JIM DENSONP CCDS Ot E78.4 OTHER HYPERLIPIDEMIA 11/10/2019 KYARA MAHAJAN FACC, ALI FACP CCDS Ot I10 ESSENTIAL (PRIMARY) HYPERTENSION 11/10/2019 KYARA MAHAJAN FACC, JIM FACP CCDS Ot I25.10 ATHSCL HEART DISEASE OF [place] CORONARY 11/10/2019 KYARA MAHAJAN FACC, ALI FACP CCDS Ot 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 11/10/2019 KYARA MAHAJAN FACC, ALI FACP CCDS Ot I70.213 ATHSCL [place] ARTERIES OF EXTRM W INTRMT 11/10/2019 KYARA MAHAJAN [facility], ALI FACP CCDS Ot J43.8 OTHER EMPHYSEMA 11/10/2019 KYARA MAHAJAN [facility], ALI FACP CCDS Ot R06.02 SHORTNESS OF BREATH 11/10/2019 KYARA MAHAJAN [facility], ALI FACP CCDS Ot Z87.891 PERSONAL HISTORY OF NICOTINE DEPENDENCE 11/10/2019 MYRNA PANDYA APRN Ot J43.8 OTHER EMPHYSEMA 11/10/2019 MYRNA PANDYA DIRECTOR OF INDIVIDUAL GIVING Ot R09.02 HYPOXEMIA 11/10/2019 KYARA MAHAJAN [facility], ALI FACP CCDS Ot E78.4 OTHER HYPERLIPIDEMIA 11/10/2019 KYARA MAHAJAN [facility], ALI FACP CCDS Ot I10 ESSENTIAL (PRIMARY) HYPERTENSION 11/10/2019 KYARA MAHAJAN [facility], ALI FACP CCDS Ot I25.10 ATHSCL HEART DISEASE OF [place] CORONARY 11/10/2019 KYARA MAHAJAN [facility], ALI FACP CCDS Ot 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 11/10/2019 KYARA MAHAJAN [facility], ALI FACP CCDS Ot I95.2 HYPOTENSION DUE TO DRUGS 11/10/2019 KYARA MAHAJAN [facility], ALI FACP CCDS Ot J43.8 OTHER EMPHYSEMA 11/10/2019 CRISTINE NAPOLES Ot D61.818 OTHER PANCYTOPENIA 11/10/2019 CRISTINE NAPOLES Ot E78.00 PURE HYPERCHOLESTEROLEMIA, UNSPECIFIED 11/10/2019 CRISTINE NAPOLES Ot F32.9 MAJOR DEPRESSIVE DISORDER, SINGLE EPISOD 11/10/2019 CRISTINE NAPOLES Ot I10 ESSENTIAL (PRIMARY) HYPERTENSION 11/10/2019 CRISTINE NAPOLES Ot I25.10 ATHSCL HEART DISEASE OF [place] CORONARY 11/10/2019 CRISTINE NAPOLES Ot J44.9 CHRONIC OBSTRUCTIVE PULMONARY DISEASE, U 11/10/2019 CRISTINE NAPOLES Ot Z79.82 MOTH PROOFER (CURRENT) USE OF ASPIRIN 11/10/2019 CRISTINE NAPOLES Ot Z87.891 PERSONAL HISTORY OF NICOTINE DEPENDENCE 11/10/2019 MERCEDES SMART MD, Ot 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, UNSPECIFIED 11/10/2019 MERCEDES SMART MD, Ot E78.00 PURE HYPERCHOLESTEROLEMIA, UNSPECIFIED 11/10/2019 MERCEDES SMART MD, Ot E78.5 HYPERLIPIDEMIA, UNSPECIFIED 11/10/2019 MERCEDES SMART MD Ot G47.30 SLEEP APNEA, UNSPECIFIED 11/10/2019 MERCEDES SMART MD Ot G89.29 OTHER CHRONIC PAIN 11/10/2019 MERCEDES SMART MD Ot I10 ESSENTIAL (PRIMARY) HYPERTENSION 11/10/2019 MERCEDES SMART MD Ot I25.10 ATHSCL HEART DISEASE OF [place] CORONARY 11/10/2019 MERCEDES SMART MD Ot J43.9 EMPHYSEMA, UNSPECIFIED 11/10/2019 MERCEDES SMART MD Ot K21.9 GASTRO-ESOPHAGEAL REFLUX DISEASE WITHOUT 11/10/2019 MERCEDES SMART MD, Ot M47.89 6 OTHER SPONDYLOSIS, LUMBAR REGION 11/10/2019 MERCEDES SMART MD, Ot M48.06 1 SPINAL STENOSIS, LUMBAR REGION WITHOUT N 11/10/2019 MERCEDES SMART MD Ot M79.7 FIBROMYALGIA 11/10/2019 MERCEDES SMART MD, Ot M81.0 AGE-RELATED OSTEOPOROSIS W/O CURRENT PAT 11/10/2019 MERCEDES SMART MD Ot Z79.89 1 MOTH PROOFER (CURRENT) USE OF OPIATE ANALGE 11/10/2019 MERCEDES SMART MD Ot Z79.89 9 OTHER CORRECTION (CURRENT) DRUG THERAPY 11/10/2019 MERCEDES SMART MD Ot Z87.89 1 PERSONAL HISTORY OF NICOTINE DEPENDENCE 11/10/2019 MERCEDES SMART MD, Ot Z88.2 ALLERGY STATUS TO SULFONAMIDES STATUS 11/16/2019 MERCEDES SMART MD Ot 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, UNSPECIFIED 11/16/2019 MERCEDES SMART MD Ot E78.00 PURE HYPERCHOLESTEROLEMIA, UNSPECIFIED 11/16/2019 MERCEDES SMART MD Ot E78.5 HYPERLIPIDEMIA, UNSPECIFIED 11/16/2019 MERCEDES SMART MD, Ot G47.30 SLEEP APNEA, UNSPECIFIED 11/16/2019 MERCEDES SMART MD Ot G89.29 OTHER CHRONIC PAIN 11/16/2019 MERCEDES SMART MD Ot I10 ESSENTIAL (PRIMARY) HYPERTENSION 11/16/2019 MERCEDES SMART MD Ot I25.10 ATHSCL HEART DISEASE OF [place] CORONARY 11/16/2019 MERCEDES SMART MD, Ot J43.9 EMPHYSEMA, UNSPECIFIED 11/16/2019 MERCEDES SMART MD, Ot K21.9 GASTRO-ESOPHAGEAL REFLUX DISEASE WITHOUT 11/16/2019 MERCEDES SMART MD, Ot M47.89 6 OTHER SPONDYLOSIS, LUMBAR REGION 11/16/2019 MERCEDES SMART MD, Ot M48.06 1 SPINAL STENOSIS, LUMBAR REGION WITHOUT N 11/16/2019 MERCEDES SMART MD, Ot M79.7 FIBROMYALGIA 11/16/2019 MERCEDES SMART MD, Ot M81.0 AGE-RELATED OSTEOPOROSIS W/O CURRENT PAT 11/16/2019 MERCEDES SMART MD, Ot Z79.89 1 MOTH PROOFER (CURRENT) USE OF OPIATE ANALGE 11/16/2019 MERCEDES SMART MD, Ot Z79.89 9 OTHER CORRECTION (CURRENT) DRUG THERAPY 11/16/2019 MERCEDES SMART MD, Ot Z87.89 1 PERSONAL HISTORY OF NICOTINE DEPENDENCE 11/16/2019 MERCEDES SMART MD, Ot Z88.2 ALLERGY STATUS TO SULFONAMIDES STATUS 11/26/2019 CRISTINE NAPOLES Ot D61.818 OTHER PANCYTOPENIA 11/26/2019 CRISTINE NAPOLES Ot E78.00 PURE HYPERCHOLESTEROLEMIA, UNSPECIFIED 11/26/2019 CRISTINE NAPOLES Ot F32.9 MAJOR DEPRESSIVE DISORDER, SINGLE EPISOD 11/26/2019 CRISTINE NAPOLES Ot I10 ESSENTIAL (PRIMARY) HYPERTENSION 11/26/2019 CRISTINE NAPOLES Ot I25.10 ATHSCL HEART DISEASE OF [place] CORONARY 11/26/2019 CRISTINE NAPOLES Ot J44.9 CHRONIC OBSTRUCTIVE PULMONARY DISEASE, U 11/26/2019 CRISTINE NAPOLES Ot Z79.82 MOTH PROOFER (CURRENT) USE OF ASPIRIN 11/26/2019 CRISTINE NAPOLES Ot Z87.891 PERSONAL HISTORY OF NICOTINE DEPENDENCE Procedures Code Description Performed By Per chandler On 01.29 THYR OID FIELD ASPIRATION 12/23/2012 Results Test Result Range Automated blood complete blood count (he mogram) panel - 12/11/16 15:09 Blood leukocytes automated count (number/volume) 18.0 10*3/uL 4.3-11.0 Blood erythrocytes automated count (number/volume) 4.67 10*6/uL 4.35-5.85 Venous blood hemoglobin measurement (mass/volume) 14.0 g/dL 13.3-17.7 Blood hematocrit (volume fraction) 43 % 40-54 Automated erythrocyte mean corpuscular volume 92 [ foz_us] 80-99 Automated erythrocyte mean corpuscular h emoglobin (mass per erythrocyte) 30 pg 25-34 Automated erythrocyte mean corpuscular h emoglobin concentration measurement (mass/volume) 33 g/dL 32-36 Automated erythrocyte distribution width ratio 15. 0 % 10.0- 14.5 Automated blood platelet count (count/volume) 189 10*3/uL 130-400 Automated blood platelet mean volume measurement 10.0 [foz_us] 7.4-10.4 Complete blood count (CBC) with automate d white blood cell (WBC) differential - 12/25/16 10:46 Blood leukocytes automated count (number/volume) 9.1 10*3/uL 4.3-11.0 Blood erythrocytes automated count (number/volume) 4.82 10*6/uL 4.35-5.85 Venous blood hemoglobin measurement (mass/volume) 14.6 g/dL 13.3-17.7 Blood hematocrit (volume fraction) 44 % 40-54 Automated erythrocyte mean corpuscular volume 91 [ foz_us] 80-99 Automated erythrocyte mean corpuscular h emoglobin (mass per erythrocyte) 30 pg 25-34 Automated erythrocyte mean corpuscular h emoglobin concentration measurement (mass/volume) 33 g/dL 32-36 Automated erythrocyte distribution width ratio 14. 9 % 10.0- 14.5 Automated blood platelet count [...] 10*3 1.0-4.0 Blood monocytes automated count (number/volume) 1. 4 10*3 0.0-1.0 Automated eosinophil count 0.1 10*3/uL 0 .0-0.3 Automated blood basophil count (count/volume) 0.0 10*3/uL 0.0-0.1 PT panel in platelet poor plasma by coag ulation assay - 12/25/16 10:46 Prothrombin time (PT) in platelet poor plasma by coagu lation assay 12.9 s 12.2-14.7 INR in platelet poor plasma or blood by coagulation as say 1.0 0.8-1.4 Activated partial thromboplastin time (a PTT) in platelet poor plasma bycoagulation assay - 12/25/16 10:46 Activated partial thromboplastin time (a PTT) in platelet poor plasma bycoagulation assay 26 s 24-35 Blood lactic acid measurement (moles/vol ume) - 12/25/16 10:46 Blood lactic acid measurement [...] 5-14 Serum or plasma urea nitrogen measurement (mass/volume ) 38 mg/dL 7-18 Serum or plasma creatinine measurement (mass/volume) 1.03 mg/dL 0.60-1.30 Serum or plasma urea nitrogen/creatinine mass ratio 37 NRG Serum or plasma creatinine measurement w ith calculation of estimated glomerular filtration rate > NRG Serum or plasma glucose measurement (mass/volume) 96 mg/dL 70-105 Serum or plasma calcium measurement (mass/volume) 8.4 mg/dL 8.5-10.1 Serum or plasma total bilirubin measurement (mass/volu me) 0.8 mg/dL 0.1-1.0 Serum or plasma alkaline phosphatase travis surement (enzymatic activity/volume) 71 U/L 40-136 Serum or plasma aspartate aminotransfera se measurement (enzymatic activity/volume) 22 U/L 5-34 Serum or plasma alanine aminotransferase measurement (enzymatic activity/volume) 44 U/L 0-55 Serum or plasma protein measurement (mass/volume) 6.0 g/dL 6.4-8.2 Serum or plasma albumin measurement (mass/volume) 3.3 g/dL 3.2-4.5 Serum or plasma troponin i.cardiac measu rement (mass/volume) - 12/25/16 10:46 Serum or plasma troponin i.cardiac measurement (mass/v olume) < ng/mL <0.30 Bacterial blood culture - 12/25/16 10:46 Bacterial blood culture NG NRG Bacterial blood culture - 12/25/16 10:58 Bacterial blood culture NG NRG Complete urinalysis with reflex to cultu re - 12/25/16 11:23 Urine color determination YELLOW NRG Urine clarity determination CLEAR NR G Urine pH measurement by test strip 6 5-9 Specific gravity of urine by test strip 1.015 1.016-1.022 Urine protein assay by test strip, semi-quantitative NEGATIVE NEGATIVE Urine glucose detection by automated test strip NE GATIVE NEGATIVE Erythrocytes detection in urine sediment by light micr oscopy NEGATIVE NEGATIVE Urine ketones detection by automated test strip NE GATIVE NEGATIVE Urine nitrite detection by test strip NEGATIVE NEGATIVE Urine total bilirubin detection by test strip NEGA TIVE NEGATIVE Urine urobilinogen measurement by automated test strip (mass/volume) NORMAL NORMAL Urine leukocyte esterase detection by dipstick NEG ATIVE NEGATIVE Automated urine sediment erythrocyte cou nt by microscopy (number/high power field) NONE NRG Automated urine sediment leukocyte count by microscopy (number/high power field) NONE NRG Bacteria detection in urine sediment by light microsco py NEGATIVE NRG Squamous epithelial cells detection in u rine sediment by light microscopy 0-2 NRG Crystals detection in urine sediment by light microsco py NONE NRG Casts detection in urine sediment by light microscopy NONE NRG Mucus detection in urine sediment by light microscopy NEGATIVE NRG Complete urinalysis with reflex to culture NO NRG Complete blood count (CBC) with automate d white blood cell (WBC) differential - 12/26/16 05:42 Blood leukocytes automated count (number/volume) 8.1 10*3/uL 4.3-11.0 Blood erythrocytes automated count (number/volume) 4.31 10*6/uL 4.35-5.85 Venous blood hemoglobin measurement (mass/volume) 13.0 g/dL 13.3-17.7 Blood hematocrit (volume fraction) 40 % 40-54 Automated erythrocyte mean corpuscular volume 93 [ foz_us] 80-99 Automated erythrocyte mean corpuscular h emoglobin (mass per erythrocyte) 30 pg 25-34 Automated erythrocyte mean corpuscular h emoglobin concentration measurement (mass/volume) 33 g/dL 32-36 Automated erythrocyte distribution width ratio 15. 1 % 10.0- 14.5 Automated blood platelet count [...] 10*3 1.0-4.0 Blood monocytes automated count (number/volume) 1. 2 10*3 0.0-1.0 Automated eosinophil count 0.1 10*3/uL 0 .0-0.3 Automated blood basophil count (count/volume) 0.0 10*3/uL 0.0-0.1 Comprehensive metabolic panel - 12/26/16 05:42 Serum or plasma sodium measurement (moles/volume) 140 mmol/L 135-145 Serum or plasma potassium measurement (moles/volume) 4.9 mmol/L 3.6-5.0 Serum or plasma chloride measurement (moles/volume) 110 mmol/L 98-107 Carbon dioxide 23 mmol/L 21-32 Serum or plasma anion gap determination (moles/volume) 7 mmol/L 5-14 Serum or plasma urea nitrogen measurement (mass/volume ) 29 mg/dL 7-18 Serum or plasma creatinine measurement (mass/volume) 0.92 mg/dL 0.60-1.30 Serum or plasma urea nitrogen/creatinine mass ratio 32 NRG Serum or plasma creatinine measurement w ith calculation of estimated glomerular filtration rate > NRG Serum or plasma glucose measurement (mass/volume) 89 mg/dL 70-105 Serum or plasma calcium measurement (mass/volume) 7.8 mg/dL 8.5-10.1 Serum or plasma total bilirubin measurement (mass/volu me) 0.5 mg/dL 0.1-1.0 Serum or plasma alkaline phosphatase travis surement (enzymatic activity/volume) 71 U/L 40-136 Serum or plasma aspartate aminotransfera se measurement (enzymatic activity/volume) 19 U/L 5-34 Serum or plasma alanine aminotransferase measurement (enzymatic activity/volume) 35 U/L 0-55 Serum or plasma protein measurement (mass/volume) 5.3 g/dL 6.4-8.2 Serum or plasma albumin measurement (mass/volume) 2.9 g/dL 3.2-4.5 Complete blood count (CBC) with automate d white blood cell (WBC) differential - 04/29/17 20:00 Blood leukocytes automated count (number/volume) 5.4 10*3/uL 4.3-11.0 Blood erythrocytes automated count (number/volume) 3.88 10*6/uL 4.35-5.85 Venous blood hemoglobin measurement (mass/volume) 12.3 g/dL 13.3-17.7 Blood hematocrit (volume fraction) 38 % 40-54 Automated erythrocyte mean corpuscular volume 97 [ foz_us] 80-99 Automated erythrocyte mean corpuscular h emoglobin (mass per erythrocyte) 32 pg 25-34 Automated erythrocyte mean corpuscular h emoglobin concentration measurement (mass/volume) 33 g/dL 32-36 Automated erythrocyte distribution width ratio 12. 5 % 10.0- 14.5 Automated blood platelet count [...] 10*3 1.0-4.0 Blood monocytes automated count (number/volume) 1. 0 10*3 0.0-1.0 Automated eosinophil count 0.2 10*3/uL 0 .0-0.3 Automated blood basophil count (count/volume) 0.1 10*3/uL 0.0-0.1 PT panel in platelet poor plasma by coag ulation assay - 04/29/17 20:00 Prothrombin time (PT) in platelet poor plasma by coagu lation assay 13.7 s 12.2-14.7 INR in platelet poor plasma or blood by coagulation as say 1.0 0.8-1.4 Activated partial thromboplastin time (a PTT) in platelet poor plasma bycoagulation assay - 04/29/17 20:00 Activated partial thromboplastin time (a PTT) in platelet poor plasma bycoagulation assay 30 s 24-35 Comprehensive metabolic panel - 04/29/17 20:00 Serum or plasma sodium measurement (moles/volume) 138 mmol/L 135-145 Serum or plasma potassium measurement (moles/volume) 4.1 mmol/L 3.6-5.0 Serum or plasma chloride measurement (moles/volume) 103 mmol/L 98-107 Carbon dioxide 24 mmol/L 21-32 Serum or plasma anion gap determination (moles/volume) 11 mmol/L 5-14 Serum or plasma urea nitrogen measurement (mass/volume ) 27 mg/dL 7-18 Serum or plasma creatinine measurement (mass/volume) 1.22 mg/dL 0.60-1.30 Serum or plasma urea nitrogen/creatinine mass ratio 22 NRG Serum or plasma creatinine measurement w ith calculation of estimated glomerular filtration rate 58 NRG Serum or plasma glucose measurement (mass/volume) 98 mg/dL 70-105 Serum or plasma calcium measurement (mass/volume) 8.3 mg/dL 8.5-10.1 Serum or plasma total bilirubin measurement (mass/volu me) 0.5 mg/dL 0.1-1.0 Serum or plasma alkaline phosphatase travis surement (enzymatic activity/volume) 63 U/L 40-136 Serum or plasma aspartate aminotransfera se measurement (enzymatic activity/volume) 21 U/L 5-34 Serum or plasma alanine aminotransferase measurement (enzymatic activity/volume) 17 U/L 0-55 Serum or plasma protein measurement (mass/volume) 6.6 g/dL 6.4-8.2 Serum or plasma albumin measurement (mass/volume) 3.5 g/dL 3.2-4.5 Magnesium - 04/29/17 20:00 Magnesium 2.1 mg/dL 1.8-2.4 Blood manual differential performed dete ction - 04/29/17 20:00 Blood monocytes/100 leukocytes 15 % NRG Manual blood segmented neutrophils/100 leukocytes 53 % NRG Blood band neutrophils/100 leukocytes 0 % NRG Manual blood lymphocytes/100 leukocytes 27 % NRG Manual eosinophils/100 leukocytes in nose 4 % NRG Manual blood basophils/100 leukocytes 1 % NRG Blood erythrocyte morphology finding identification NORMAL NRG Serum or plasma lithium measurement (mol es/volume) - 04/29/17 20:00 BNP level 73.7 pg/mL <100.0 Serum or plasma troponin i.cardiac measu rement (mass/volume) - 04/29/17 20:00 Serum or plasma troponin i.cardiac measurement (mass/v olume) < ng/mL <0.30 Serum or plasma thyrotropin measurement by detection limit <=0.05 miu/l (units/volume) - 04/29/17 20:00 Serum or plasma thyrotropin measurement by detection limit <=0.05 miu/l (units/volume) 4.78 u[iU]/mL 0.35-4.94 Serum or plasma cortisol measurement (ma ss/volume) - 04/29/17 20:00 Cortisol PM 7.3 % 3.0-16.0 Bacterial blood culture - 04/29/17 20:10 Bacterial blood culture NG NRG Blood lactic acid measurement (moles/vol ume) - 04/29/17 20:30 Blood lactic acid measurement (moles/volume) 1.38 mmol/L 0.50-2.00 Bacterial blood culture - 04/29/17 20:30 Bacterial blood culture NG NRG Serum or plasma troponin i.cardiac measu rement (mass/volume) - 04/29/17 22:40 Serum or plasma troponin i.cardiac measurement (mass/v olume) < ng/mL <0.30 Methicillin resistant Staphylococcus aur eus (MRSA) screening culture - 04/29/17 23:05 Methicillin resistant Staphylococcus aureus (MRSA) scr eening culture NEG NRG Complete blood count (CBC) with automate d white blood cell (WBC) differential - 04/30/17 04:35 Blood leukocytes automated count (number/volume) 9.2 10*3/uL 4.3-11.0 Blood erythrocytes automated count (number/volume) 3.67 10*6/uL 4.35-5.85 Venous blood hemoglobin measurement (mass/volume) 11.5 g/dL 13.3-17.7 Blood hematocrit (volume fraction) 35 % 40-54 Automated erythrocyte mean corpuscular volume 96 [ foz_us] 80-99 Automated erythrocyte mean corpuscular h emoglobin (mass per erythrocyte) 31 pg 25-34 Automated erythrocyte mean corpuscular h emoglobin concentration measurement (mass/volume) 33 g/dL 32-36 Automated erythrocyte distribution width ratio 12. 1 % 10.0- 14.5 Automated blood platelet count [...] 10*3 1.0-4.0 Blood monocytes automated count (number/volume) 2. 2 10*3 0.0-1.0 Automated eosinophil count 0.1 10*3/uL 0 .0-0.3 Automated blood basophil count (count/volume) 0.1 10*3/uL 0.0-0.1 Comprehensive metabolic panel - 04/30/17 04:35 Serum or plasma sodium measurement (moles/volume) 134 mmol/L 135-145 Serum or plasma potassium measurement (moles/volume) 4.2 mmol/L 3.6-5.0 Serum or plasma chloride measurement (moles/volume) 104 mmol/L 98-107 Carbon dioxide 22 mmol/L 21-32 Serum or plasma anion gap determination (moles/volume) 8 mmol/L 5-14 Serum or plasma urea nitrogen measurement (mass/volume ) 27 mg/dL 7-18 Serum or plasma creatinine measurement (mass/volume) 1.37 mg/dL 0.60-1.30 Serum or plasma urea nitrogen/creatinine mass ratio 20 NRG Serum or plasma creatinine measurement w ith calculation of estimated glomerular filtration rate 51 NRG Serum or plasma glucose measurement (mass/volume) 194 mg/dL 70-105 Serum or plasma calcium measurement (mass/volume) 7.7 mg/dL 8.5-10.1 Serum or plasma total bilirubin measurement (mass/volu me) 0.5 mg/dL 0.1-1.0 Serum or plasma alkaline phosphatase travis surement (enzymatic activity/volume) 60 U/L 40-136 Serum or plasma aspartate aminotransfera se measurement (enzymatic activity/volume) 17 U/L 5-34 Serum or plasma alanine aminotransferase measurement (enzymatic activity/volume) 15 U/L 0-55 Serum or plasma protein measurement (mass/volume) 5.9 g/dL 6.4-8.2 Serum or plasma albumin measurement (mass/volume) 3.3 g/dL 3.2-4.5 Serum or plasma phosphate measurement (m ass/volume) - 04/30/17 04:35 Serum or plasma phosphate measurement (mass/volume) 2.0 mg/dL 2.3-4.7 Magnesium - 04/30/17 04:35 Magnesium 1.7 mg/dL 1.8-2.4 Serum or plasma troponin i.cardiac measu rement (mass/volume) - 04/30/17 04:35 Serum or plasma troponin i.cardiac measurement (mass/v olume) < ng/mL <0.30 Myoglobin, serum - 04/30/17 04:35 Myoglobin, serum 161.4 ng/mL 10.0-92.0 Serum or plasma thyroxine (T4) free trupti urement (mass/volume) - 04/30/17 04:35 Serum or plasma thyroxine (T4) free measurement (mass/ volume) 0.77 ng/dL 0.70-1.48 Complete urinalysis with reflex to cultu re - 04/30/17 05:50 Urine color determination YELLOW NRG Urine clarity determination CLEAR NR G Urine pH measurement by test strip 6 5-9 Specific gravity of urine by test strip 1.015 1.016-1.022 Urine protein assay by test strip, semi-quantitative NEGATIVE NEGATIVE Urine glucose detection by automated test strip NE GATIVE NEGATIVE Erythrocytes detection in urine sediment by light micr oscopy NEGATIVE NEGATIVE Urine ketones detection by automated test strip NE GATIVE NEGATIVE Urine nitrite detection by test strip NEGATIVE NEGATIVE Urine total bilirubin detection by test strip NEGA TIVE NEGATIVE Urine urobilinogen measurement by automated test strip (mass/volume) NORMAL NORMAL Urine leukocyte esterase detection by dipstick NEG ATIVE NEGATIVE Automated urine sediment erythrocyte cou nt by microscopy (number/high power field) NONE NRG Automated urine sediment leukocyte count by microscopy (number/high power field) NONE NRG Bacteria detection in urine sediment by light microsco py NEGATIVE NRG Squamous epithelial cells detection in u rine sediment by light microscopy RARE NRG Crystals detection in urine sediment by light microsco py NONE NRG Casts detection in urine sediment by light microscopy PRESENT NRG Mucus detection in urine sediment by light microscopy NEGATIVE NRG Complete urinalysis with reflex to culture NO NRG Hyaline casts detection in urine sediment by light gosia roscopy RARE NRG Urine drug screening test - 04/30/17 05: 50 Urine phencyclidine detection by screening method NEGATIVE NEGATIVE Urine benzodiazepines detection by screening method NEGATIVE NEGATIVE Urine cocaine detection NEGATIVE NEGATI VE Urine amphetamines detection by screening method N EGATIVE NEGATIVE Urine methamphetamine detection by screening method NEGATIVE NEGATIVE Urine cannabinoids detection by screening method N EGATIVE NEGATIVE Urine opiates detection by screening method POSITI VE NEGATIVE Urine barbiturates detection NEGATIVE N EGATIVE Screening urine tricyclic antidepressants detection NEGATIVE NEGATIVE Urine methadone detection by screening method NEGA TIVE NEGATIVE Urine oxycodone detection NEGATIVE NEGA TIVE Urine propoxyphene detection NEGATIVE N EGATIVE Arterial blood gas measurement - 7 07:25 Blood pCO2 50 mm[Hg] 35-45 Blood pO2 98 mm[Hg] 79-93 Arterial blood bicarbonate measurement (moles/volume) 21 mmol/L 23-27 Arterial blood base excess by calculation -5.3 mmo l/L -2.5-2.5 Arterial blood oxygen saturation measurement 98 % 94-100 * Inhaled oxygen flow rate 2L NRG Arterial blood pH measurement with patient temperature correction 7.24 7.37-7.43 Arterial blood carbon dioxide, total measurement (mole s/volume) 22.5 mmol/L 21.0-31.0 Body site RT RAD NRG Assessment of wrist artery patency prior to arterial p uncture YES-POS NRG Setting of ventilation mode NO NR G Measurement of body temperature 96.8 NRG TRIIODOTHRYONINE T3 FREE - 04/30/17 07:2 5 TRIIODOTHYRONINE T3 FREE 2.4 pg/mL 2.4-4 .5 Complete blood count (CBC) with automate d white blood cell (WBC) differential - 05/01/17 04:51 Blood leukocytes automated count (number/volume) 7.5 10*3/uL 4.3-11.0 Blood erythrocytes automated count (number/volume) 3.38 10*6/uL 4.35-5.85 Venous blood hemoglobin measurement (mass/volume) 10.6 g/dL 13.3-17.7 Blood hematocrit (volume fraction) 33 % 40-54 Automated erythrocyte mean corpuscular volume 97 [ foz_us] 80-99 Automated erythrocyte mean corpuscular h emoglobin (mass per erythrocyte) 31 pg 25-34 Automated erythrocyte mean corpuscular h emoglobin concentration measurement (mass/volume) 32 g/dL 32-36 Automated erythrocyte distribution width ratio 12. 4 % 10.0- 14.5 Automated blood platelet count [...] 10*3 1.0-4.0 Blood monocytes automated count (number/volume) 0. 8 10*3 0.0-1.0 Automated eosinophil count 0.0 10*3/uL 0 .0-0.3 Automated blood basophil count (count/volume) 0.0 10*3/uL 0.0-0.1 Whole blood basic metabolic panel - 09/16 04:51 Serum or plasma sodium measurement (moles/volume) 140 mmol/L 135-145 Serum or plasma potassium measurement (moles/volume) 4.6 mmol/L 3.6-5.0 Serum or plasma chloride measurement (moles/volume) 114 mmol/L 98-107 Carbon dioxide 17 mmol/L 21-32 Serum or plasma anion gap determination (moles/volume) 9 mmol/L 5-14 Serum or plasma urea nitrogen measurement (mass/volume ) 18 mg/dL 7-18 Serum or plasma creatinine measurement (mass/volume) 0.91 mg/dL 0.60-1.30 Serum or plasma urea nitrogen/creatinine mass ratio 20 NRG Serum or plasma creatinine measurement w ith calculation of estimated glomerular filtration rate > NRG Serum or plasma glucose measurement (mass/volume) 117 mg/dL 70-105 Serum or plasma calcium measurement (mass/volume) 7.5 mg/dL 8.5-10.1 Serum or plasma phosphate measurement (m ass/volume) - 05/01/17 04:51 Serum or plasma phosphate measurement (mass/volume) 2.6 mg/dL 2.3-4.7 Magnesium - 05/01/17 04:51 Magnesium 1.9 mg/dL 1.8-2.4 Complete blood count (CBC) with automate d white blood cell (WBC) differential - 05/02/17 05:50 Blood leukocytes automated count (number/volume) 17.9 10*3/uL 4.3-11.0 Blood erythrocytes automated count (number/volume) 3.55 10*6/uL 4.35-5.85 Venous blood hemoglobin measurement (mass/volume) 11.2 g/dL 13.3-17.7 Blood hematocrit (volume fraction) 34 % 40-54 Automated erythrocyte mean corpuscular volume 96 [ foz_us] 80-99 Automated erythrocyte mean corpuscular h emoglobin (mass per erythrocyte) 32 pg 25-34 Automated erythrocyte mean corpuscular h emoglobin concentration measurement (mass/volume) 33 g/dL 32-36 Automated erythrocyte distribution width ratio 12. 9 % 10.0- 14.5 Automated blood platelet count [...] 10*3 1.0-4.0 Blood monocytes automated count (number/volume) 2. 0 10*3 0.0-1.0 Automated eosinophil count 0.0 10*3/uL 0 .0-0.3 Automated blood basophil count (count/volume) 0.0 10*3/uL 0.0-0.1 Whole blood basic metabolic panel - 10/17 05:50 Serum or plasma sodium measurement (moles/volume) 138 mmol/L 135-145 Serum or plasma potassium measurement (moles/volume) 3.9 mmol/L 3.6-5.0 Serum or plasma chloride measurement (moles/volume) 110 mmol/L 98-107 Carbon dioxide 19 mmol/L 21-32 Serum or plasma anion gap determination (moles/volume) 9 mmol/L 5-14 Serum or plasma urea nitrogen measurement (mass/volume ) 13 mg/dL 7-18 Serum or plasma creatinine measurement (mass/volume) 0.77 mg/dL 0.60-1.30 Serum or plasma urea nitrogen/creatinine mass ratio 17 NRG Serum or plasma creatinine measurement w ith calculation of estimated glomerular filtration rate > NRG Serum or plasma glucose measurement (mass/volume) 100 mg/dL 70-105 Serum or plasma calcium measurement (mass/volume) 7.7 mg/dL 8.5-10.1 Blood manual differential performed dete ction - 05/02/17 05:50 Blood monocytes/100 leukocytes 13 [...] NORMAL NRG Serum or plasma troponin i.cardiac measu rement (mass/volume) - 05/02/17 05:50 Serum or plasma troponin i.cardiac measurement (mass/v olume) < ng/mL <0.30 Serum or plasma lithium measurement (mol es/volume) - 05/02/17 05:50 BNP level 582.9 pg/mL <100.0 Arterial blood gas measurement - 7 10:10 Blood pCO2 29 mm[Hg] 35-45 Blood pO2 90 mm[Hg] 79-93 Arterial blood bicarbonate measurement (moles/volume) 18 mmol/L 23-27 Arterial blood base excess by calculation -5.4 mmo l/L -2.5-2.5 Arterial blood oxygen saturation measurement 98 % 94-100 * Inhaled oxygen flow rate 2 NRG Arterial blood pH measurement with patient temperature correction 7.42 7.37-7.43 Arterial blood carbon dioxide, total measurement (mole s/volume) 19.2 mmol/L 21.0-31.0 Body site RT RADIAL NRG Assessment of wrist artery patency prior to arterial p uncture YES-POS NRG Setting of ventilation mode NO NR G Measurement of body temperature 98.2 NRG Complete blood count (CBC) with automate d white blood cell (WBC) differential - 05/03/17 05:30 Blood leukocytes automated count (number/volume) 14.6 10*3/uL 4.3-11.0 Blood erythrocytes automated count (number/volume) 3.20 10*6/uL 4.35-5.85 Venous blood hemoglobin measurement (mass/volume) 10.1 g/dL 13.3-17.7 Blood hematocrit (volume fraction) 31 % 40-54 Automated erythrocyte mean corpuscular volume 97 [ foz_us] 80-99 Automated erythrocyte mean corpuscular h emoglobin (mass per erythrocyte) 32 pg 25-34 Automated erythrocyte mean corpuscular h emoglobin concentration measurement (mass/volume) 33 g/dL 32-36 Automated erythrocyte distribution width ratio 12. 7 % 10.0- 14.5 Automated blood platelet count [...] 10*3 1.0-4.0 Blood monocytes automated count (number/volume) 1. 4 10*3 0.0-1.0 Automated eosinophil count 0.1 10*3/uL 0 .0-0.3 Automated blood basophil count (count/volume) 0.0 10*3/uL 0.0-0.1 Comprehensive metabolic panel - 05/03/17 05:30 Serum or plasma sodium measurement (moles/volume) 138 mmol/L 135-145 Serum or plasma potassium measurement (moles/volume) 3.8 mmol/L 3.6-5.0 Serum or plasma chloride measurement (moles/volume) 109 mmol/L 98-107 Carbon dioxide 19 mmol/L 21-32 Serum or plasma anion gap determination (moles/volume) 10 mmol/L 5-14 Serum or plasma urea nitrogen measurement (mass/volume ) 11 mg/dL 7-18 Serum or plasma creatinine measurement (mass/volume) 0.70 mg/dL 0.60-1.30 Serum or plasma urea nitrogen/creatinine mass ratio 16 NRG Serum or plasma creatinine measurement w ith calculation of estimated glomerular filtration rate > NRG Serum or plasma glucose measurement (mass/volume) 104 mg/dL 70-105 Serum or plasma calcium measurement (mass/volume) 7.5 mg/dL 8.5-10.1 Serum or plasma total bilirubin measurement (mass/volu me) 0.7 mg/dL 0.1-1.0 Serum or plasma alkaline phosphatase travis surement (enzymatic activity/volume) 56 U/L 40-136 Serum or plasma aspartate aminotransfera se measurement (enzymatic activity/volume) 46 U/L 5-34 Serum or plasma alanine aminotransferase measurement (enzymatic activity/volume) 19 U/L 0-55 Serum or plasma protein measurement (mass/volume) 5.5 g/dL 6.4-8.2 Serum or plasma albumin measurement (mass/volume) 2.6 g/dL 3.2-4.5 Serum or plasma lithium measurement (mol es/volume) - 05/03/17 05:30 BNP level 324.2 pg/mL <100.0 Vancomycin trough - 05/03/17 08:55 Vancomycin trough 15.5 ug/mL 10.0-20.0 Complete urinalysis with reflex to cultu re - 05/04/17 20:35 Urine color determination YELLOW NRG Urine clarity determination SLIGHTLY CLOUDY NRG Urine pH measurement by test strip 6 5-9 Specific gravity of urine by test strip 1.020 1.016-1.022 Urine protein assay by test strip, semi-quantitative 2+ NEGATIVE Urine glucose detection by automated test strip NE GATIVE NEGATIVE Erythrocytes detection in urine sediment by light micr oscopy 3+ NEGATIVE Urine ketones detection by automated test strip 1+ NEGATIVE Urine nitrite detection by test strip NEGATIVE NEGATIVE Urine total bilirubin detection by test strip 1+ NEGATIVE Urine urobilinogen measurement by automated test strip (mass/volume) 4 mg/dL NORMAL Urine leukocyte esterase detection by dipstick 3+ NEGATIVE Automated urine sediment erythrocyte cou nt by microscopy (number/high power field) [HPF] NRG Automated urine sediment leukocyte count by microscopy (number/high power field) [HPF] NRG Bacteria detection in urine sediment by light microsco py NEGATIVE NRG Squamous epithelial cells detection in u rine sediment by light microscopy 5-10 NRG Crystals detection in urine sediment by light microsco py NONE NRG Casts detection in urine sediment by light microscopy NONE NRG Mucus detection in urine sediment by light microscopy NEGATIVE NRG Complete urinalysis with reflex to culture YES NRG Other elements identification in urine sediment by lig ht microscopy FEW SPERM NRG Bacterial urine culture - 05/04/17 20:35 Bacterial urine culture NG NRG Complete blood count (CBC) with automate d white blood cell (WBC) differential - 05/05/17 06:21 Blood leukocytes automated count (number/volume) 4.9 10*3/uL 4.3-11.0 Blood erythrocytes automated count (number/volume) 3.41 10*6/uL 4.35-5.85 Venous blood hemoglobin measurement (mass/volume) 10.7 g/dL 13.3-17.7 Blood hematocrit (volume fraction) 33 % 40-54 Automated erythrocyte mean corpuscular volume 97 [ foz_us] 80-99 Automated erythrocyte mean corpuscular h emoglobin (mass per erythrocyte) 31 pg 25-34 Automated erythrocyte mean corpuscular h emoglobin concentration measurement (mass/volume) 33 g/dL 32-36 Automated erythrocyte distribution width ratio 12. 8 % 10.0- 14.5 Automated blood platelet count [...] 10*3 1.0-4.0 Blood monocytes automated count (number/volume) 1. 0 10*3 0.0-1.0 Automated eosinophil count 0.2 10*3/uL 0 .0-0.3 Automated blood basophil count (count/volume) 0.0 10*3/uL 0.0-0.1 Whole blood basic metabolic panel - 01/14 06:21 Serum or plasma sodium measurement (moles/volume) 143 mmol/L 135-145 Serum or plasma potassium measurement (moles/volume) 3.6 mmol/L 3.6-5.0 Serum or plasma chloride measurement (moles/volume) 110 mmol/L 98-107 Carbon dioxide 22 mmol/L 21-32 Serum or plasma anion gap determination (moles/volume) 11 mmol/L 5-14 Serum or plasma urea nitrogen measurement (mass/volume ) 6 mg/dL 7-18 Serum or plasma creatinine measurement (mass/volume) 0.68 mg/dL 0.60-1.30 Serum or plasma urea nitrogen/creatinine mass ratio 9 NRG Serum or plasma creatinine measurement w ith calculation of estimated glomerular filtration rate > NRG Serum or plasma glucose measurement (mass/volume) 105 mg/dL 70-105 Serum or plasma calcium measurement (mass/volume) 8.0 mg/dL 8.5-10.1 Whole blood basic metabolic panel - 02/14 05:25 Serum or plasma sodium measurement (moles/volume) 143 mmol/L 135-145 Serum or plasma potassium measurement (moles/volume) 3.9 mmol/L 3.6-5.0 Serum or plasma chloride measurement (moles/volume) 109 mmol/L 98-107 Carbon dioxide 24 mmol/L 21-32 Serum or plasma anion gap determination (moles/volume) 10 mmol/L 5-14 Serum or plasma urea nitrogen measurement (mass/volume ) 11 mg/dL 7-18 Serum or plasma creatinine measurement (mass/volume) 0.71 mg/dL 0.60-1.30 Serum or plasma urea nitrogen/creatinine mass ratio 15 NRG Serum or plasma creatinine measurement w ith calculation of estimated glomerular filtration rate > NRG Serum or plasma glucose measurement (mass/volume) 143 mg/dL 70-105 Serum or plasma calcium measurement (mass/volume) 8.2 mg/dL 8.5-10.1 Complete blood count (CBC) with automate d white blood cell (WBC) differential - 05/15/18 11:40 Blood leukocytes automated count (number/volume) 12.8 10*3/uL 4.3-11.0 Blood erythrocytes automated count (number/volume) 3.86 10*6/uL 4.35-5.85 Venous blood hemoglobin measurement (mass/volume) 13.0 g/dL 13.3-17.7 Blood hematocrit (volume fraction) 39 % 40-54 Automated erythrocyte mean corpuscular volume 101 [foz_us] 80-99 Automated erythrocyte mean corpuscular h emoglobin (mass per erythrocyte) 34 pg 25-34 Automated erythrocyte mean corpuscular h emoglobin concentration measurement (mass/volume) 33 g/dL 32-36 Automated erythrocyte distribution width ratio 13. 6 % 10.0- 14.5 Automated blood platelet count [...] 10*3 1.0-4.0 Blood monocytes automated count (number/volume) 2. 1 10*3 0.0-1.0 Automated eosinophil count 0.1 10*3/uL 0 .0-0.3 Automated blood basophil count (count/volume) 0.0 10*3/uL 0.0-0.1 Comprehensive metabolic panel - 05/15/18 11:40 Serum or plasma sodium measurement (moles/volume) 134 mmol/L 135-145 Serum or plasma potassium measurement (moles/volume) 4.4 mmol/L 3.6-5.0 Serum or plasma chloride measurement (moles/volume) 97 mmol/L 98-107 Carbon dioxide 26 mmol/L 21-32 Serum or plasma anion gap determination (moles/volume) 11 mmol/L 5-14 Serum or plasma urea nitrogen measurement (mass/volume ) 11 mg/dL 7-18 Serum or plasma creatinine measurement (mass/volume) 0.88 mg/dL 0.60-1.30 Serum or plasma urea nitrogen/creatinine mass ratio 13 NRG Serum or plasma creatinine measurement w ith calculation of estimated glomerular filtration rate > NRG Serum or plasma glucose measurement (mass/volume) 119 mg/dL 70-105 Serum or plasma calcium measurement (mass/volume) 8.9 mg/dL 8.5-10.1 Serum or plasma total bilirubin measurement (mass/volu me) 1.1 mg/dL 0.1-1.0 Serum or plasma alkaline phosphatase travis surement (enzymatic activity/volume) 71 U/L 40-136 Serum or plasma aspartate aminotransfera se measurement (enzymatic activity/volume) 14 U/L 5-34 Serum or plasma alanine aminotransferase measurement (enzymatic activity/volume) 17 U/L 0-55 Serum or plasma protein measurement (mass/volume) 7.2 g/dL 6.4-8.2 Serum or plasma albumin measurement (mass/volume) 3.8 g/dL 3.2-4.5 CALCIUM CORRECTED 9.1 mg/dL 8.5-10.1 Magnesium - 05/15/18 11:40 Magnesium 1.9 mg/dL 1.8-2.4 Serum or plasma creatine kinase measurem ent (enzymatic activity/volume) - 05/15/18 11:40 Serum or plasma creatine kinase measurem ent (enzymatic activity/volume) 75 U/L 30-200 Serum or plasma troponin i.cardiac measu rement (mass/volume) - 05/15/18 11:40 Serum or plasma troponin i.cardiac measurement (mass/v olume) < ng/mL <0.30 Serum or plasma lithium measurement (mol es/volume) - 05/15/18 11:40 BNP level 138.1 pg/mL <100.0 Serum or plasma thyrotropin measurement by detection limit <=0.05 miu/l (units/volume) - 05/15/18 11:40 Serum or plasma thyrotropin measurement by detection limit <=0.05 miu/l (units/volume) 2.07 u[iU]/mL 0.35-4.94 Serum or plasma C reactive protein measu rement (mass/volume) - 05/15/18 11:40 Serum or plasma C reactive protein measurement (mass/v olume) 19.46 mg/dL 0.00-0.50 Complete urinalysis with reflex to cultu re - 05/15/18 12:30 Urine color determination MAGDA NRG Urine clarity determination SLIGHTLY CLOUDY NRG Urine pH measurement by test strip 6 5-9 Specific gravity of urine by test strip 1.010 1.016-1.022 Urine protein assay by test strip, semi-quantitative 1+ NEGATIVE Urine glucose detection by automated test strip NE GATIVE NEGATIVE Erythrocytes detection in urine sediment by light micr oscopy NEGATIVE NEGATIVE Urine ketones detection by automated test strip NE GATIVE NEGATIVE Urine nitrite detection by test strip NEGATIVE NEGATIVE Urine total bilirubin detection by test strip NEGA TIVE NEGATIVE Urine urobilinogen measurement by automated test strip (mass/volume) 1 mg/dL NORMAL Urine leukocyte esterase detection by dipstick 1+ NEGATIVE Automated urine sediment erythrocyte cou nt by microscopy (number/high power field) NONE NRG Automated urine sediment leukocyte count by microscopy (number/high power field) [HPF] NRG Bacteria detection in urine sediment by light microsco py NEGATIVE NRG Squamous epithelial cells detection in u rine sediment by light microscopy 0-2 NRG Crystals detection in urine sediment by light microsco py NONE NRG Casts detection in urine sediment by light microscopy NONE NRG Mucus detection in urine sediment by light microscopy NEGATIVE NRG Complete urinalysis with reflex to culture NO NRG Complete blood count (CBC) with automate d white blood cell (WBC) differential - 09/21/19 12:59 Blood leukocytes automated count (number/volume) 3.9 10*3/uL 4.3-11.0 Blood erythrocytes automated count (number/volume) 2.97 10*6/uL 4.35-5.85 Venous blood hemoglobin measurement (mass/volume) 10.6 g/dL 13.3-17.7 Blood hematocrit (volume fraction) 32 % 40-54 Automated erythrocyte mean corpuscular volume 108 [foz_us] 80-99 Automated erythrocyte mean corpuscular h emoglobin (mass per erythrocyte) 36 pg 25-34 Automated erythrocyte mean corpuscular h emoglobin concentration measurement (mass/volume) 33 g/dL 32-36 Automated erythrocyte distribution width ratio 14. 6 % 10.0- 14.5 Automated blood platelet count (count/volume) 82 1 0*3/uL 130-400 Automated blood platelet mean volume measurement 10.5 [foz_us] 7.4-10.4 Automated blood neutrophils/100 leukocytes 57 % 42-75 Automated blood lymphocytes/100 leukocytes 20 % 12-44 Blood monocytes/100 leukocytes 23 % 0-12 Automated blood eosinophils/100 leukocytes 0 % 0-10 Automated blood basophils/100 leukocytes 1 % 0-10 Blood neutrophils automated count (number/volume) 2.2 10*3 1.8-7.8 Blood lymphocytes automated count (number/volume) 0.8 10*3 1.0-4.0 Blood monocytes automated count (number/volume) 0. 9 10*3 0.0-1.0 Automated eosinophil count 0.0 10*3/uL 0 .0-0.3 Automated blood basophil count (count/volume) 0.0 10*3/uL 0.0-0.1 Manual absolute plasma cell count - 09/01 10/20 12:59 Blood monocytes/100 leukocytes 20 % NR Manual blood segmented neutrophils/100 leukocytes 51 % NRG Blood band neutrophils/100 leukocytes 1 % NRG Manual blood lymphocytes/100 leukocytes 26 % NRG Manual eosinophils/100 leukocytes in nose 1 % NRG Manual blood basophils/100 leukocytes 0 % NRG Blood lymphocytes variant/100 leukocytes 1 % NRG Blood anisocytosis detection by light microscopy S LIGHT NRG Blood macrocytes detection by light microscopy SLI GHT [facility] Bacterial blood culture - 09/21/19 12:59 Bacterial blood culture NG [facility] Bacterial blood culture - 09/21/19 12:59 Bacterial blood culture NG [facility] Influenza virus A and B antigen detectio n - 09/21/19 15:20 FLU RESULT NEGATIVE FOR INFLUENZA A AND B ANTIGENS BY IA [facility] Sputum Gram stain - 09/21/19 15:55 Sputum Gram stain relevant, interpret with caution . [facility] Bacterial sputum culture - 09/21/19 15:5 5 QUANTITY OF GROWTH . [facility] Bacterial sputum culture SEE COMMEN [facility] Complete blood count (CBC) with automate d white blood cell (WBC) differential - 09/22/19 06:25 Blood leukocytes automated count (number/volume) 1.7 10*3/uL 4.3-11.0 Blood erythrocytes automated count (number/volume) 2.76 10*6/uL 4.35-5.85 Venous blood hemoglobin measurement (mass/volume) 10.0 g/dL 13.3-17.7 Blood hematocrit (volume fraction) 30 % 40-54 Automated erythrocyte mean corpuscular volume 108 [foz_us] 80-99 Automated erythrocyte mean corpuscular h emoglobin (mass per erythrocyte) 36 pg 25-34 Automated erythrocyte mean corpuscular h emoglobin concentration measurement (mass/volume) 34 g/dL 32-36 Automated erythrocyte distribution width ratio 13. 9 % 10.0- 14.5 Automated blood platelet count (count/volume) 65 1 0*3/uL 130-400 Automated blood platelet mean volume measurement 9.8 [foz_us] 7.4-10.4 Automated blood neutrophils/100 leukocytes 69 % 42-75 Automated blood lymphocytes/100 leukocytes 27 % 12-44 Blood monocytes/100 leukocytes 4 % 0-12 Automated blood eosinophils/100 leukocytes 0 % 0-10 Automated blood basophils/100 leukocytes 0 % 0-10 Blood neutrophils automated count (number/volume) 1.2 10*3 1.8-7.8 Blood lymphocytes automated count (number/volume) 0.5 10*3 1.0-4.0 Blood monocytes automated count (number/volume) 0. 1 10*3 0.0-1.0 Automated eosinophil count 0.0 10*3/uL 0 .0-0.3 Automated blood basophil count (count/volume) 0.0 10*3/uL 0.0-0.1 Comprehensive metabolic panel - 09/22/19 06:25 Serum or plasma sodium measurement (moles/volume) 139 mmol/L 135-145 Serum or plasma potassium measurement (moles/volume) 4.3 mmol/L 3.6-5.0 Serum or plasma chloride measurement (moles/volume) 107 mmol/L 98-107 Carbon dioxide 22 mmol/L 21-32 Serum or plasma anion gap determination (moles/volume) 10 mmol/L 5-14 Serum or plasma urea nitrogen measurement (mass/volume ) 18 mg/dL 7-18 Serum or plasma creatinine measurement (mass/volume) 0.81 mg/dL 0.60-1.30 Serum or plasma urea nitrogen/creatinine mass ratio 22 NRG Serum or plasma creatinine measurement w ith calculation of estimated glomerular filtration rate > NRG Serum or plasma glucose measurement (mass/volume) 171 mg/dL 70-105 Serum or plasma calcium measurement (mass/volume) 8.4 mg/dL 8.5-10.1 Serum or plasma total bilirubin measurement (mass/volu me) 0.3 mg/dL 0.1-1.0 Serum or plasma alkaline phosphatase travis surement (enzymatic activity/volume) 61 U/L 40-136 Serum or plasma aspartate aminotransfera se measurement (enzymatic activity/volume) 28 U/L 5-34 Serum or plasma alanine aminotransferase measurement (enzymatic activity/volume) 34 U/L 0-55 Serum or plasma protein measurement (mass/volume) 6.4 g/dL 6.4-8.2 Serum or plasma albumin measurement (mass/volume) 3.5 g/dL 3.2-4.5 CALCIUM CORRECTED 8.8 mg/dL 8.5-10.1 Complete blood count (CBC) with automate d white blood cell (WBC) differential - 09/23/19 04:25 Blood leukocytes automated count (number/volume) 2.0 10*3/uL 4.3-11.0 Blood erythrocytes automated count (number/volume) 2.84 10*6/uL 4.35-5.85 Venous blood hemoglobin measurement (mass/volume) 10.1 g/dL 13.3-17.7 Blood hematocrit (volume fraction) 31 % 40-54 Automated erythrocyte mean corpuscular volume 107 [foz_us] 80-99 Automated erythrocyte mean corpuscular h emoglobin (mass per erythrocyte) 36 pg 25-34 Automated erythrocyte mean corpuscular h emoglobin concentration measurement (mass/volume) 33 g/dL 32-36 Automated erythrocyte distribution width ratio 14. 0 % 10.0- 14.5 Automated blood platelet count (count/volume) 72 1 0*3/uL 130-400 Automated blood platelet mean volume measurement 10.9 [foz_us] 7.4-10.4 Automated blood neutrophils/100 leukocytes 71 % 42-75 Automated blood lymphocytes/100 leukocytes 25 % 12-44 Blood monocytes/100 leukocytes 5 % 0-12 Automated blood eosinophils/100 leukocytes 0 % 0-10 Automated blood basophils/100 leukocytes 0 % 0-10 Blood neutrophils automated count (number/volume) 1.4 10*3 1.8-7.8 Blood lymphocytes automated count (number/volume) 0.5 10*3 1.0-4.0 Blood monocytes automated count (number/volume) 0. 1 10*3 0.0-1.0 Automated eosinophil count 0.0 10*3/uL 0 .0-0.3 Automated blood basophil count (count/volume) 0.0 10*3/uL 0.0-0.1 Blood CBC with ordered manual differenti al panel - 09/24/19 04:29 Blood leukocytes automated count (number/volume) 1.8 10*3/uL 4.3-11.0 Blood erythrocytes automated count (number/volume) 2.83 10*6/uL 4.35-5.85 Venous blood hemoglobin measurement (mass/volume) 10.0 g/dL 13.3-17.7 Blood hematocrit (volume fraction) 30 % 40-54 Automated erythrocyte mean corpuscular volume 107 [foz_us] 80-99 Automated erythrocyte mean corpuscular h emoglobin (mass per erythrocyte) 35 pg 25-34 Automated erythrocyte mean corpuscular h emoglobin concentration measurement (mass/volume) 33 g/dL 32-36 Automated erythrocyte distribution width ratio 14. 1 % 10.0- 14.5 Automated blood platelet count (count/volume) 70 1 0*3/uL 130-400 Automated blood platelet mean volume measurement 10.5 [foz_us] 7.4-10.4 Automated blood neutrophils/100 leukocytes 70 % 42-75 Automated blood lymphocytes/100 leukocytes 26 % 12-44 Blood monocytes/100 leukocytes 3 % NRG Automated blood eosinophils/100 leukocytes 0 % 0-10 Automated blood basophils/100 leukocytes 0 % 0-10 Blood neutrophils automated count (number/volume) 1.2 10*3 1.8-7.8 Blood lymphocytes automated count (number/volume) 0.5 10*3 1.0-4.0 Blood monocytes automated count (number/volume) 0. 1 10*3 0.0-1.0 Automated eosinophil count 0.0 10*3/uL 0 .0-0.3 Automated blood basophil count (count/volume) 0.0 10*3/uL 0.0-0.1 Manual blood segmented neutrophils/100 leukocytes 67 % NRG Blood band neutrophils/100 leukocytes 4 % NRG Manual blood lymphocytes/100 leukocytes 25 % NRG Blood polychromasia detection by light microscopy SLIGHT NRG Blood anisocytosis detection by light microscopy M ODERATE NRG Blood macrocytes detection by light microscopy MOD ERATE NRG Manual blood nucleated erythrocytes/100 leukocytes ratio 1 NRG Manual blood myelocytes/100 leukocytes 1 % NRG Complete blood count (CBC) with automate d white blood cell (WBC) differential - 10/07/19 13:29 Blood leukocytes automated count (number/volume) 2.4 10*3/uL 4.3-11.0 Blood erythrocytes automated count (number/volume) 3.19 10*6/uL 4.35-5.85 Venous blood hemoglobin measurement (mass/volume) 11.5 g/dL 13.3-17.7 Blood hematocrit (volume fraction) 34 % 40-54 Automated erythrocyte mean corpuscular volume 108 [foz_us] 80-99 Automated erythrocyte mean corpuscular h emoglobin (mass per erythrocyte) 36 pg 25-34 Automated erythrocyte mean corpuscular h emoglobin concentration measurement (mass/volume) 34 g/dL 32-36 Automated erythrocyte distribution width ratio 13. 6 % 10.0- 14.5 Automated blood platelet count (count/volume) 26 1 0*3/uL 130-400 Automated blood platelet mean volume measurement 11.3 [foz_us] 7.4-10.4 Automated blood neutrophils/100 leukocytes 42 % 42-75 Automated blood lymphocytes/100 leukocytes 41 % 12-44 Blood monocytes/100 leukocytes 16 % 0-12 Automated blood eosinophils/100 leukocytes 0 % 0-10 Automated blood basophils/100 leukocytes 0 % 0-10 Blood neutrophils automated count (number/volume) 1.0 10*3 1.8-7.8 Blood lymphocytes automated count (number/volume) 1.0 10*3 1.0-4.0 Blood monocytes automated count (number/volume) 0. 4 10*3 0.0-1.0 Automated eosinophil count 0.0 10*3/uL 0 .0-0.3 Automated blood basophil count (count/volume) 0.0 10*3/uL 0.0-0.1 Blood blood smear finding identification by light micr oscopy YES [facility] Comprehensive metabolic panel - 10/07/19 13:29 Serum or plasma sodium measurement (moles/volume) 134 mmol/L 135-145 Serum or plasma potassium measurement (moles/volume) 5.1 mmol/L 3.6-5.0 Serum or plasma chloride measurement (moles/volume) 101 mmol/L 98-107 Carbon dioxide 23 mmol/L 21-32 Serum or plasma anion gap determination (moles/volume) 10 mmol/L 5-14 Serum or plasma urea nitrogen measurement (mass/volume ) 17 mg/dL 7-18 Serum or plasma creatinine measurement (mass/volume) 0.91 mg/dL 0.60-1.30 Serum or plasma urea nitrogen/creatinine mass ratio 19 NRG Serum or plasma creatinine measurement w ith calculation of estimated glomerular filtration rate > NRG Serum or plasma glucose measurement (mass/volume) 112 mg/dL 70-105 Serum or plasma calcium measurement (mass/volume) 8.7 mg/dL 8.5-10.1 Serum or plasma total bilirubin measurement (mass/volu me) 0.6 mg/dL 0.1-1.0 Serum or plasma alkaline phosphatase travis surement (enzymatic activity/volume) 67 U/L 40-136 Serum or plasma aspartate aminotransfera se measurement (enzymatic activity/volume) 20 U/L 5-34 Serum or plasma alanine aminotransferase measurement (enzymatic activity/volume) 50 U/L 0-55 Serum or plasma protein measurement (mass/volume) 6.6 g/dL 6.4-8.2 Serum or plasma albumin measurement (mass/volume) 3.6 g/dL 3.2-4.5 CALCIUM CORRECTED 9.0 mg/dL 8.5-10.1 Blood CBC with ordered manual differenti al panel - 10/18/19 07:55 Blood leukocytes automated count (number/volume) 2.0 10*3/uL 4.3-11.0 Blood erythrocytes automated count (number/volume) 2.66 10*6/uL 4.35-5.85 Venous blood hemoglobin measurement (mass/volume) 9.4 g/dL 13.3-17.7 Blood hematocrit (volume fraction) 29 % 40-54 Automated erythrocyte mean corpuscular volume 107 [foz_us] 80-99 Automated erythrocyte mean corpuscular h emoglobin (mass per erythrocyte) 35 pg 25-34 Automated erythrocyte mean corpuscular h emoglobin concentration measurement (mass/volume) 33 g/dL 32-36 Automated erythrocyte distribution width ratio 13. 4 % 10.0- 14.5 Automated blood platelet count (count/volume) 26 1 0*3/uL 130-400 Automated blood platelet mean volume measurement 11.2 [foz_us] 7.4-10.4 Automated blood neutrophils/100 leukocytes 15 % 42-75 Automated blood lymphocytes/100 leukocytes 75 % 12-44 Blood monocytes/100 leukocytes 8 % NRG Automated blood eosinophils/100 leukocytes 1 % 0-10 Automated blood basophils/100 leukocytes 1 % 0-10 Blood neutrophils automated count (number/volume) 0.3 10*3 1.8-7.8 Blood lymphocytes automated count (number/volume) 1.5 10*3 1.0-4.0 Blood monocytes automated count (number/volume) 0. 2 10*3 0.0-1.0 Automated eosinophil count 0.0 10*3/uL 0 .0-0.3 Automated blood basophil count (count/volume) 0.0 10*3/uL 0.0-0.1 Manual blood segmented neutrophils/100 leukocytes 19 % NRG Manual blood lymphocytes/100 leukocytes 73 % NRG Blood polychromasia detection by light microscopy SLIGHT NRG Blood anisocytosis detection by light microscopy M ODERATE NRG Blood macrocytes detection by light microscopy MOD ERATE NRG Blood ovalocytes detection by light microscopy I [facility] NR Blood sarahy cells detection by light microscopy [facility] Automated reticulocyte percentage - 10/01 04/19 07:55 Blood reticulocytes count (number/volume) 23 10*9/ L 24-90 Blood reticulocytes/100 erythrocytes 0.87 % 0.50-2.40 PT panel in platelet poor plasma by coag ulation assay - 10/18/19 07:55 Prothrombin time (PT) in platelet poor plasma by coagu lation assay 13.2 s 12.2-14.7 INR in platelet poor plasma or blood by coagulation as say 1.0 0.8-1.4 Activated partial thromboplastin time (a PTT) in platelet poor plasma bycoagulation assay - 10/18/19 07:55 Activated partial thromboplastin time (a PTT) in platelet poor plasma bycoagulation assay 60 s 24-35 Methicillin resistant Staphylococcus aur eus (MRSA) screening culture - 11/10/19 11:55 Methicillin resistant Staphylococcus aureus (MRSA) scr eening culture NEG NRG PLATELET PHERESIS LR - 11/17/19 13:31 PLATELET PHERESIS LR PRSMD TR FSD 11/17/19 1352 NRG Complete blood count (CBC) with automate d white blood cell (WBC) differential - 12/08/19 09:30 Blood leukocytes automated count (number/volume) 0.9 10*3/uL 4.3-11.0 Blood erythrocytes automated count (number/volume) 2.22 10*6/uL 4.35-5.85 Venous blood hemoglobin measurement (mass/volume) 7.0 g/dL 13.3-17.7 Blood hematocrit (volume fraction) 21 % 40-54 Automated erythrocyte mean corpuscular volume 93 [ foz_us] 80-99 Automated erythrocyte mean corpuscular h emoglobin (mass per erythrocyte) 32 pg 25-34 Automated erythrocyte mean corpuscular h emoglobin concentration measurement (mass/volume) 34 g/dL 32-36 Automated erythrocyte distribution width ratio 18. 3 % 10.0- 14.5 Automated blood platelet count (count/volume) 59 1 0*3/uL 130-400 Automated blood platelet mean volume measurement 9.4 [foz_us] 7.4-10.4 Automated blood neutrophils/100 leukocytes 11 % 42-75 Automated blood lymphocytes/100 leukocytes 84 % 12-44 Blood monocytes/100 leukocytes 4 % 0-12 Automated blood eosinophils/100 leukocytes 1 % 0-10 Automated blood basophils/100 leukocytes 1 % 0-10 Blood neutrophils automated count (number/volume) 0.1 10*3 1.8-7.8 Blood lymphocytes automated count (number/volume) 0.7 10*3 1.0-4.0 Blood monocytes automated count (number/volume) 0. 0 10*3 0.0-1.0 Automated eosinophil count 0.0 10*3/uL 0 .0-0.3 Automated blood basophil count (count/volume) 0.0 10*3/uL 0.0-0.1 PT panel in platelet poor plasma by coag ulation assay - 12/12/19 13:25 Prothrombin time (PT) in platelet poor plasma by coagu lation assay 13.5 s 12.2-14.7 INR in platelet poor plasma or blood by coagulation as say 1.0 0.8-1.4 Activated partial thromboplastin time (a PTT) in platelet poor plasma bycoagulation assay - 12/12/19 13:25 Activated partial thromboplastin time (a PTT) in platelet poor plasma bycoagulation assay 44 s 24-35 Complete blood count (CBC) with automate d white blood cell (WBC) differential - 12/12/19 13:25 Blood leukocytes automated count (number/volume) 0.8 10*3/uL 4.3-11.0 Blood erythrocytes automated count (number/volume) 2.19 10*6/uL 4.35-5.85 Venous blood hemoglobin measurement (mass/volume) 6.9 g/dL 13.3-17.7 Blood hematocrit (volume fraction) 21 % 40-54 Automated erythrocyte mean corpuscular volume 94 [ foz_us] 80-99 Automated erythrocyte mean corpuscular h emoglobin (mass per erythrocyte) 32 pg 25-34 Automated erythrocyte mean corpuscular h emoglobin concentration measurement (mass/volume) 34 g/dL 32-36 Automated erythrocyte distribution width ratio 20. 1 % 10.0- 14.5 Automated blood platelet count (count/volume) 67 1 0*3/uL 130-400 Automated blood platelet mean volume measurement 9.6 [foz_us] 7.4-10.4 Automated blood neutrophils/100 leukocytes 16 % 42-75 Automated blood lymphocytes/100 leukocytes 76 % 12-44 Blood monocytes/100 leukocytes 5 % 0-12 Automated blood eosinophils/100 leukocytes 1 % 0-10 Automated blood basophils/100 leukocytes 1 % 0-10 Blood neutrophils automated count (number/volume) 0.1 10*3 1.8-7.8 Blood lymphocytes automated count (number/volume) 0.6 10*3 1.0-4.0 Blood monocytes automated count (number/volume) 0. 0 10*3 0.0-1.0 Automated eosinophil count 0.0 10*3/uL 0 .0-0.3 Automated blood basophil count (count/volume) 0.0 10*3/uL 0.0-0.1 Comprehensive metabolic panel - 12/12/19 13:25 Serum or plasma sodium measurement (moles/volume) 138 mmol/L 135-145 Serum or plasma potassium measurement (moles/volume) 4.2 mmol/L 3.6-5.0 Serum or plasma chloride measurement (moles/volume) 105 mmol/L 98-107 Carbon dioxide 24 mmol/L 21-32 Serum or plasma anion gap determination (moles/volume) 9 mmol/L 5-14 Serum or plasma urea nitrogen measurement (mass/volume ) 11 mg/dL 7-18 Serum or plasma creatinine measurement (mass/volume) 0.79 mg/dL 0.60-1.30 Serum or plasma urea nitrogen/creatinine mass ratio 14 NRG Serum or plasma creatinine measurement w ith calculation of estimated glomerular filtration rate > NRG Serum or plasma glucose measurement (mass/volume) 124 mg/dL 70-105 Serum or plasma calcium measurement (mass/volume) 8.4 mg/dL 8.5-10.1 Serum or plasma total bilirubin measurement (mass/volu me) 0.8 mg/dL 0.1-1.0 Serum or plasma alkaline phosphatase tarvis surement (enzymatic activity/volume) 74 U/L 40-136 Serum or plasma aspartate aminotransfera se measurement (enzymatic activity/volume) 10 U/L 5-34 Serum or plasma alanine aminotransferase measurement (enzymatic activity/volume) 9 U/L 0-55 Serum or plasma protein measurement (mass/volume) 6.2 g/dL 6.4-8.2 Serum or plasma albumin measurement (mass/volume) 3.4 g/dL 3.2-4.5 CALCIUM CORRECTED 8.9 mg/dL 8.5-10.1 Blood lactic acid measurement (moles/vol ume) - 12/12/19 13:25 Blood lactic acid measurement (moles/volume) 2.12 mmol/L 0.50-2.00 Manual absolute plasma cell count - 11/29 11/17 13:25 Blood monocytes/100 leukocytes 6 % NRG Manual blood segmented neutrophils/100 leukocytes 8 % NRG Blood band neutrophils/100 leukocytes 0 % NRG Manual blood lymphocytes/100 leukocytes 86 % NRG Manual eosinophils/100 leukocytes in nose 0 % NRG Manual blood basophils/100 leukocytes 0 % NRG Blood anisocytosis detection by light microscopy M ARKED NRG Bacterial blood culture - 12/12/19 13:25 Bacterial blood culture NG NRG RED CELLS LEUKO REDUCED AS1 - 12/12/19 1 4:53 RED CELLS LEUKO REDUCED AS1 T RANSFUSED 12/12/19 1750 NRG Blood type T Indirect antibody screen pa adrienne - 12/12/19 14:53 WRISTBAND NUMBER [id number] NRG ABO+Rh group OP NRG Blood group antibody screen NEGATIVE NR G Serum or plasma lactate measurement (mol es/volume) - 12/12/19 16:05 Serum or plasma lactate measurement (moles/volume) 1.49 mmol/L 0.50-2.00 Bacterial blood culture - 12/12/19 16:05 Bacterial blood culture NG NRG Complete urinalysis with reflex to cultu re - 12/12/19 17:45 Urine color determination YELLOW NRG Urine clarity determination CLEAR NR G Urine pH measurement by test strip 6.0 5-9 Specific gravity of urine by test strip 1.020 1.016-1.022 Urine protein assay by test strip, semi-quantitative NEGATIVE NEGATIVE Urine glucose detection by automated test strip NE GATIVE NEGATIVE Erythrocytes detection in urine sediment by light micr oscopy NEGATIVE NEGATIVE Urine ketones detection by automated test strip NE GATIVE NEGATIVE Urine nitrite detection by test strip NEGATIVE NEGATIVE Urine total bilirubin detection by test strip NEGA TIVE NEGATIVE Urine urobilinogen measurement by automated test strip (mass/volume) 0.2 mg/dL < = 1.0 Urine leukocyte esterase detection by dipstick NEG ATIVE NEGATIVE Automated urine sediment erythrocyte cou nt by microscopy (number/high power field) RARE NRG Automated urine sediment leukocyte count by microscopy (number/high power field) RARE NRG Bacteria detection in urine sediment by light microsco py NEGATIVE NRG Squamous epithelial cells detection in u rine sediment by light microscopy RARE NRG Crystals detection in urine sediment by light microsco py NONE NRG Casts detection in urine sediment by light microscopy NONE NRG Mucus detection in urine sediment by light microscopy NEGATIVE NRG Complete urinalysis with reflex to culture NO NRG Other elements identification in urine sediment by lig ht microscopy MOD SPERM NRG Venous blood hemoglobin measurement (mas s/volume) - 12/12/19 23:00 Venous blood hemoglobin measurement (mass/volume) 7.3 g/dL 13.3-17.7 Comprehensive metabolic panel - 12/13/19 04:55 Serum or plasma sodium measurement (moles/volume) 140 mmol/L 135-145 Serum or plasma potassium measurement (moles/volume) 4.1 mmol/L 3.6-5.0 Serum or plasma chloride measurement (moles/volume) 108 mmol/L 98-107 Carbon dioxide 21 mmol/L 21-32 Serum or plasma anion gap determination (moles/volume) 11 mmol/L 5-14 Serum or plasma urea nitrogen measurement (mass/volume ) 9 mg/dL 7-18 Serum or plasma creatinine measurement (mass/volume) 0.65 mg/dL 0.60-1.30 Serum or plasma urea nitrogen/creatinine mass ratio 14 NRG Serum or plasma creatinine measurement w ith calculation of estimated glomerular filtration rate > NRG Serum or plasma glucose measurement (mass/volume) 103 mg/dL 70-105 Serum or plasma calcium measurement (mass/volume) 7.6 mg/dL 8.5-10.1 Serum or plasma total bilirubin measurement (mass/volu me) 1.1 mg/dL 0.1-1.0 Serum or plasma alkaline phosphatase travis surement (enzymatic activity/volume) 72 U/L 40-136 Serum or plasma aspartate aminotransfera se measurement (enzymatic activity/volume) 8 U/L 5-34 Serum or plasma alanine aminotransferase measurement (enzymatic activity/volume) 11 U/L 0-55 Serum or plasma protein measurement (mass/volume) 5.5 g/dL 6.4-8.2 Serum or plasma albumin measurement (mass/volume) 3.1 g/dL 3.2-4.5 CALCIUM CORRECTED 8.3 mg/dL 8.5-10.1 Complete blood count (CBC) with automate d white blood cell (WBC) differential - 12/13/19 04:55 Blood leukocytes automated count (number/volume) 1.0 10*3/uL 4.3-11.0 Blood erythrocytes automated count (number/volume) 2.32 10*6/uL 4.35-5.85 Venous blood hemoglobin measurement (mass/volume) 7.4 g/dL 13.3-17.7 Blood hematocrit (volume fraction) 22 % 40-54 Automated erythrocyte mean corpuscular volume 94 [ foz_us] 80-99 Automated erythrocyte mean corpuscular h emoglobin (mass per erythrocyte) 32 pg 25-34 Automated erythrocyte mean corpuscular h emoglobin concentration measurement (mass/volume) 34 g/dL 32-36 Automated erythrocyte distribution width ratio 18. 7 % 10.0- 14.5 Automated blood platelet count (count/volume) 56 1 0*3/uL 130-400 Automated blood platelet mean volume measurement 9.2 [foz_us] 7.4-10.4 Automated blood neutrophils/100 leukocytes 16 % 42-75 Automated blood lymphocytes/100 leukocytes 76 % 12-44 Blood monocytes/100 leukocytes 6 % 0-12 Automated blood eosinophils/100 leukocytes 2 % 0-10 Automated blood basophils/100 leukocytes 1 % 0-10 Blood neutrophils automated count (number/volume) 0.2 10*3 1.8-7.8 Blood lymphocytes automated count (number/volume) 0.8 10*3 1.0-4.0 Blood monocytes automated count (number/volume) 0. 1 10*3 0.0-1.0 Automated eosinophil count 0.0 10*3/uL 0 .0-0.3 Automated blood basophil count (count/volume) 0.0 10*3/uL 0.0-0.1 Encounters ACCT No. Visit Date/Time Discharge Status Pt. Type Provider Facility Loc./Unit Complaint [id number] 12/06/2014 09:11:16 ACT Document Registration [id number] 12/12/2019 15:00:00 14:01:00 DIS Inpatient HAYLEE PIPER DO Via [facility] 4TH ANEMIA,WEAKNESS,PANCYTOPENIA,POOR APPETITE [id number] 12/05/2019 12:41:00 23:59:59 CLS Outpatient CRISTINE NAPOLES [facility] ONC [id number] 11/10/2019 11:26:00 15:50:00 DIS Outpatient MERCEDES SMART MD [facility] MYELODYSPLASTIC SYNDROM E [id number] 11/09/2019 09:14:00 10:12:00 DIS Outpatient MERCEDES SMART MD [facility] PREOP MYELODYSPLASTIC SYNDROM E [id number] 10/19/2019 15:30:00 23:59:59 CLS Preadmit HAYLEE PIPER DO [facility] PULM COPD [id number] 10/18/2019 07:34:00 12:00:00 [facility] [id number] 10/07/2019 12:42:00 02/07/2 020 15:23:00 DIS Emergency TEJADA, PETER J DIRECTOR OF INDIVIDUAL GIVING [facility] ER ABNORMAL LAB RESULTS;CRYS GUERRA [id number] 09/21/2019 12:14:00 020 10:55:00 DIS Inpatient HAYLEE PIPER DO [facility] 4TH PNEUMONIA,COPD EXACERBATION [id number] 09/21/2019 11:46:00 020 23:59:59 CLS Preadmit SEEMA PIPER DOLINE S PNEUMONIA,COPD [id number] 03/18/2019 09:27:00 019 11:02:00 DIS Outpatient [facility]Z [facility] RIGHT EYE [id number] 03/16/2019 05:38:00 019 08:54:00 DIS Outpatient LULU LENZ MD [facility] PREOP RIGHT CATARACT [id number] 05/15/2018 11:09:00 018 14:01:00 DIS Emergency TRIXIE MAHAJAN, VANDANA Diaz [facility] ER WHEEZING,COUGH, HEADACHE [id number] 05/26/2017 07:35:00 017 23:59:59 CLS Outpatient KYARA MAHAJAN FACC, JIM FLORES CC DS [facility] CARD CAD I25.10 [id number] 05/23/2017 19:54:00 017 06:30:00 DIS Outpatient MYRNA PANDYA DIRECTOR OF INDIVIDUAL GIVING [facility] SLEEP ACE G47.33 [id number] 05/18/2017 14:17:00 017 23:59:59 CLS Outpatient MYRNA PANDYA APRN [facility] RT COPD J43.8 [id number] 04/29/2017 22:07:00 017 15:23:00 DIS Inpatient SEEMA PIPER DOLINE Alexis [facility] 4TH CHEST PAIN WITH ACUTE ISCHEMIC EKG CHANGES [id number] 01/16/2017 11:01:00 017 12:02:00 DIS Outpatient YAYA MARIE MD [facility] CARD DISC DISORDER [id number] 12/30/2016 10:38:00 017 23:59:59 CLS Outpatient KYARA MAHAJAN FACC, JIM FLORES CC DS [facility] CARD R06.02 I25. 10 I65.23 [id number] 12/25/2016 13:08:00 017 11:18:00 DIS Inpatient FELIZ RESENDIZ HAYLEE S [facility] 4TH ORTHOSTATIC HTN [id number] 12/11/2016 14:19:00 017 23:59:59 CLS Outpatient LATRICIA ALVARES APRN [facility] RAD COUGH,CHEST CON GESTION [id number] 12/17/2015 12:28:00 016 13:26:00 DIS Outpatient YAYA MARIE MD [facility] CARD DISC DISORDER W/RADICUL OPATHY [id number] 11/19/2015 10:13:00 016 23:59:59 CLS Outpatient LATRICIA ALVARES APRN [facility] RAD FOLLOW UP FOR L ALBERTO NODULE [id number] 10/19/2015 18:11:00 016 20:07:00 DIS Emergency SYED RESENDIZLYNETTEA Albina Vi [facility] ER PULSE;BP [id number] 10/05/2015 07:23:00 016 08:12:00 DIS Outpatient YAYA MARIE MD [facility] CARD DISC DISORDER [id number] 08/21/2015 08:27:00 015 13:24:00 DIS Inpatient GELLENMCCOLLUM CHENG A [facility] 4TH LLL PNEUMONIA L EUKOCYTOSIS [id number] 08/13/2015 13:07:00 23:59:59 CLS Outpatient YAYA MARIE MD [facility] CARD DISC DISORDER W/ RADICU LOPATHY LUMBAR [id number] 07/04/2015 08:51:00 23:59:59 CLS Outpatient YAYA MARIE MD [facility] RAD LOW BACK PAIN [id number] 06/28/2015 07:01:00 23:59:59 CLS Outpatient ERICK NASH [facility] CARD CAD,CP [id number] 06/27/2015 08:19:00 23:59:59 CLS Outpatient JUNHAYLEE SINGH DO [facility] RAD THYROID NODULE [id number] 12/06/2014 09:10:00 12:49:00 DIS Outpatient [facility] H[facility]ORY [facility]PS; BLOO D IN STOOLS [id number] 12/05/2014 05:44:00 23:59:59 CLS Outpatient MERCEDES SMART MD [facility] PREOP HISTORY OF POLYPS; BLOO D IN STOOLS [id number] 10/25/2013 11:42:00 014 00:01:00 DIS Outpatient MAGDA DOMINIQUE MD [facility] LAB DIARRHEA [id number] 11/15/2013 13:00:00 014 23:59:59 CLS Outpatient CHENG FATIMA DO [facility] LAB DIARRHEA [id number] 08/11/2013 12:00:00 014 00:01:00 DIS Outpatient VANDANA MARCUM MD [facility] LAB CHRONIC DIARRHE A [id number] 08/05/2013 10:55:00 14:55:00 DIS Emergency VANDANA MARCUM MD [facility] ER DIARRHEA/VOMITI NG [id number] 06/20/2013 10:31:00 23:59:59 CLS Outpatient KYARA MAHAJAN FACC, JIM FLORES CC DS [facility] RAD CP,CAD,HTN, HLP [id number] 04/28/2013 09:29:00 23:59:59 CLS Outpatient MERCEDES SMART MD [facility] RAD ABD PAIN,BLOATING,DIARR HEA [id number] 04/27/2013 08:35:00 13:00:00 DIS Outpatient MERCEDES SMART MD [facility] ABDOMINAL PAIN [id number] 04/22/2013 07:38:00 23:59:59 CLS Outpatient MERCEDES SMART MD [facility] RAD DIARRHEA [id number] 04/20/2013 07:15:00 23:59:59 CLS Outpatient MERCEDES SMART MD [facility] PREOP ABDOMINAL PAIN [id number] 01/28/2013 06:51:00 08:00:00 DIS Outpatient JERONIMO PITTMAN MD [facility] RIGHT THYROID NODULE [id number] 01/25/2013 14:31:00 23:59:59 CLS Outpatient JERONIMO PITTMAN MD [facility] PREOP RIGHT THYROID NODULE [id number] 12/23/2012 10:27:00 23:59:59 CLS Outpatient JERONIMO PITTMAN MD [facility] RAD THYROID NODULE [id number] 12/08/2014 09:56:00 Document Registration [id number] 12/08/2014 09:56:00 Document Registration [id number] 12/08/2014 09:56:00 Document Registration [id number] 12/08/2014 09:56:00 Document Registration [id number] 12/08/2014 09:56:00 Document Registration [id number] 12/08/2014 09:56:00 Document Registration [id number] 12/08/2014 09:56:00 Document Registration [id number] 10/27/2014 20:51:00 Document Registration [id number] 01/24/2014 00:00:00 Document Registration [id number] 11/06/2013 00:00:00 Document Registration [id number] 11/25/2012 09:48:00 Document Registration [id number] 09/09/2012 07:57:00 Document Registration [id number] 05/19/2012 12:16:00 Document Registration [id number] 02/06/2012 08:09:00 Document Registration [id number] 02/05/2012 08:37:00 Document Registration [id number] 01/08/2012 07:20:00 Document Registration [id number] 12/29/2011 13:23:00 Document Registration [id number] 12/24/2011 16:05:00 Document Registration [id number] 06/17/2011 05:31:00 Document Registration [id number] 06/16/2011 09:40:00 Document Registration [id number] 06/05/2011 15:31:00 Document Registration [id number] 11/28/2010 09:37:00 Document Registration [id number] 04/02/2010 06:01:00 Document Registration [id number] 07/19/2009 13:39:00 Document Registration [id number] 07/02/2009 08:41:00 Document Registration 12/201509/02/2019 11:49:49 09/02/2019 23:59 :59 Haylee Gerard [id number] 10/10/2019 11:21:00 Document Registration
[2019-12-16 15:08] VITALS: BP 114/57
== END 2019-12-16 15:08 | disposition home or self-care (01) ==
LOC: EDUNIT# 14:02 → ER 14:03
DX: D46.9 Myelodysplastic syndrome, unspecified (principal); J44.9 Chronic obstructive pulmonary disease, unspecified; I10 Essential (primary) hypertension; I25.10 Atherosclerotic heart disease of native coronary artery without angina pectoris; E78.00 Pure hypercholesterolemia, unspecified; K21.9 Gastro-esophageal reflux disease without esophagitis; F32.9 Major depressive disorder, single episode, unspecified; Z88.2 Allergy status to sulfonamides; Z85.830 Personal history of malignant neoplasm of bone; Z87.891 Personal history of nicotine dependence; Z95.5 Presence of coronary angioplasty implant and graft
CPT/HCPCS: 99282

== ENCOUNTER 2020-01-09 12:59 | Outpatient (RCR) | payer MEDICARE, OTHER ==
--- NOTE | 2019-10-11 12:28 | NUR ---
PT SCHEDULED FOR PULMONARY REHAB EVALUATION; LOOKED UP PT'S FILE TO SEE IF CURRENT PFT IN RECORDS (FOR EVAL) AND TO GET MAILING ADDRESS TO SEND PAPERWORK
[2019-10-12 09:34] LABS: BASOPHILS % (AUTO) 0 % (0-10); EOSINOPHILS % (AUTO) 1 % (0-10); HEMATOCRIT 32 % (40-54); HEMOGLOBIN 10.6 G/DL (13.3-17.7); LYMPHOCYTES # (AUTO) 1.6 X 10^3 (1.0-4.0); LYMPHOCYTES % (AUTO) 68 % (12-44); MEAN CORPUSCULAR HEMOGLOBIN 36 PG (25-34); MEAN CORPUSCULAR HGB CONC 33 G/DL (32-36); MEAN CORPUSCULAR VOLUME 107 FL (80-99); MONOCYTES # (AUTO) 0.2 X 10^3 (0.0-1.0); MONOCYTES % (AUTO) 9 % (0-12); NEUTROPHILS # (AUTO) 0.5 X 10^3 (1.8-7.8); NEUTROPHILS % (AUTO) 21 % (42-75); RED CELL DISTRIBUTION WIDTH 13.4 % (10.0-14.5); WHITE BLOOD COUNT 2.3 10^3/uL (4.3-11.0)
[2019-10-12 09:36] LABS: PLATELET COUNT 20 10^3/uL (130-400)
[2019-10-12 09:55] LABS: ALANINE AMINOTRANSFERASE 28 U/L (0-55); ALBUMIN 3.7 GM/DL (3.2-4.5); ALKALINE PHOSPHATASE 69 U/L (40-136); BILIRUBIN,TOTAL 0.5 MG/DL (0.1-1.0); BUN/CREATININE RATIO 16; CALCIUM 9.1 MG/DL (8.5-10.1); CARBON DIOXIDE 26 MMOL/L (21-32); CHLORIDE 103 MMOL/L (98-107); CREATININE SERUM 0.96 MG/DL (0.60-1.30); GFR ESTIMATED > 60; GLUCOSE 126 MG/DL (70-105); POTASSIUM 4.4 MMOL/L (3.6-5.0); SODIUM 137 MMOL/L (135-145); TOTAL PROTEIN 6.7 GM/DL (6.4-8.2)
[2019-10-31 10:38] LABS: BASOPHILS % (AUTO) 1 % (0-10); EOSINOPHILS % (AUTO) 1 % (0-10); HEMATOCRIT 21 % (40-54); HEMOGLOBIN 7.2 G/DL (13.3-17.7); LYMPHOCYTES % (AUTO) 76 % (12-44); MEAN CORPUSCULAR HEMOGLOBIN 37 PG (25-34); MEAN CORPUSCULAR HGB CONC 35 G/DL (32-36); MEAN CORPUSCULAR VOLUME 107 FL (80-99); MONOCYTES # (AUTO) 0.1 X 10^3 (0.0-1.0); MONOCYTES % (AUTO) 10 % (0-12); NEUTROPHILS # (AUTO) 0.2 X 10^3 (1.8-7.8); NEUTROPHILS % (AUTO) 12 % (42-75); RED CELL DISTRIBUTION WIDTH 13.2 % (10.0-14.5)
[2019-10-31 10:41] LABS: PLATELET COUNT 21 10^3/uL (130-400); WHITE BLOOD COUNT 1.4 10^3/uL (4.3-11.0)
[2019-11-03 09:48] LABS: BASOPHILS % (AUTO) 0 % (0-10); EOSINOPHILS % (AUTO) 1 % (0-10); HEMATOCRIT 25 % (40-54); HEMOGLOBIN 8.3 G/DL (13.3-17.7); LYMPHOCYTES # (AUTO) 0.9 X 10^3 (1.0-4.0); LYMPHOCYTES % (AUTO) 84 % (12-44); MEAN CORPUSCULAR HEMOGLOBIN 34 PG (25-34); MEAN CORPUSCULAR HGB CONC 34 G/DL (32-36); MEAN CORPUSCULAR VOLUME 101 FL (80-99); MEAN PLATELET VOLUME 10.5 FL (7.4-10.4); MONOCYTES # (AUTO) 0.1 X 10^3 (0.0-1.0); MONOCYTES % (AUTO) 7 % (0-12); NEUTROPHILS # (AUTO) 0.1 X 10^3 (1.8-7.8); NEUTROPHILS % (AUTO) 8 % (42-75); RED CELL DISTRIBUTION WIDTH 18.3 % (10.0-14.5)
[2019-11-03 09:50] LABS: PLATELET COUNT 21 10^3/uL (130-400); WHITE BLOOD COUNT 1.1 10^3/uL (4.3-11.0)
[2019-11-07 13:38] LABS: BASOPHILS % (AUTO) 0 % (0-10); EOSINOPHILS % (AUTO) 1 % (0-10); HEMATOCRIT 23 % (40-54); HEMOGLOBIN 7.8 G/DL (13.3-17.7); LYMPHOCYTES # (AUTO) 0.7 X 10^3 (1.0-4.0); LYMPHOCYTES % (AUTO) 75 % (12-44); MEAN CORPUSCULAR HEMOGLOBIN 34 PG (25-34); MEAN CORPUSCULAR HGB CONC 34 G/DL (32-36); MEAN CORPUSCULAR VOLUME 102 FL (80-99); MEAN PLATELET VOLUME 11.1 FL (7.4-10.4); MONOCYTES # (AUTO) 0.1 X 10^3 (0.0-1.0); MONOCYTES % (AUTO) 9 % (0-12); NEUTROPHILS # (AUTO) 0.1 X 10^3 (1.8-7.8); NEUTROPHILS % (AUTO) 15 % (42-75); RED CELL DISTRIBUTION WIDTH 17.3 % (10.0-14.5)
[2019-11-07 13:44] LABS: PLATELET COUNT 22 10^3/uL (130-400); WHITE BLOOD COUNT 0.9 10^3/uL (4.3-11.0)
[2019-11-07 13:57] LABS: ALANINE AMINOTRANSFERASE 15 U/L (0-55); ALBUMIN 3.7 GM/DL (3.2-4.5); ALKALINE PHOSPHATASE 72 U/L (40-136); BILIRUBIN,TOTAL 0.7 MG/DL (0.1-1.0); BUN/CREATININE RATIO 19; CALCIUM 8.6 MG/DL (8.5-10.1); CARBON DIOXIDE 25 MMOL/L (21-32); CHLORIDE 104 MMOL/L (98-107); CREATININE SERUM 0.79 MG/DL (0.60-1.30); GFR ESTIMATED > 60; GLUCOSE 113 MG/DL (70-105); POTASSIUM 4.2 MMOL/L (3.6-5.0); SODIUM 138 MMOL/L (135-145); TOTAL PROTEIN 6.6 GM/DL (6.4-8.2)
[2019-11-10 16:10] LABS: BASOPHILS % (AUTO) 0 % (0-10); EOSINOPHILS % (AUTO) 1 % (0-10); HEMATOCRIT 26 % (40-54); HEMOGLOBIN 8.7 G/DL (13.3-17.7); LYMPHOCYTES # (AUTO) 1.5 X 10^3 (1.0-4.0); LYMPHOCYTES % (AUTO) 74 % (12-44); MEAN CORPUSCULAR HEMOGLOBIN 34 PG (25-34); MEAN CORPUSCULAR HGB CONC 34 G/DL (32-36); MEAN CORPUSCULAR VOLUME 99 FL (80-99); MEAN PLATELET VOLUME 11.5 FL (7.4-10.4); MONOCYTES # (AUTO) 0.2 X 10^3 (0.0-1.0); MONOCYTES % (AUTO) 9 % (0-12); NEUTROPHILS # (AUTO) 0.3 X 10^3 (1.8-7.8); NEUTROPHILS % (AUTO) 17 % (42-75); RED CELL DISTRIBUTION WIDTH 18.1 % (10.0-14.5)
[2019-11-10 16:11] LABS: PLATELET COUNT 25 10^3/uL (130-400)
[2019-11-14 14:02] LABS: BASOPHILS % (AUTO) 1 % (0-10); EOSINOPHILS % (AUTO) 1 % (0-10); HEMATOCRIT 25 % (40-54); HEMOGLOBIN 8.3 G/DL (13.3-17.7); LYMPHOCYTES # (AUTO) 0.6 X 10^3 (1.0-4.0); LYMPHOCYTES % (AUTO) 69 % (12-44); MEAN CORPUSCULAR HEMOGLOBIN 33 PG (25-34); MEAN CORPUSCULAR HGB CONC 34 G/DL (32-36); MEAN CORPUSCULAR VOLUME 98 FL (80-99); MEAN PLATELET VOLUME 10.2 FL (7.4-10.4); MONOCYTES % (AUTO) 4 % (0-12); NEUTROPHILS # (AUTO) 0.2 X 10^3 (1.8-7.8); NEUTROPHILS % (AUTO) 24 % (42-75); RED CELL DISTRIBUTION WIDTH 17.1 % (10.0-14.5)
[2019-11-14 14:04] LABS: PLATELET COUNT 16 10^3/uL (130-400); WHITE BLOOD COUNT 0.9 10^3/uL (4.3-11.0)
[2019-11-14 14:16] LABS: BUN/CREATININE RATIO 24; CALCIUM 8.5 MG/DL (8.5-10.1); CARBON DIOXIDE 25 MMOL/L (21-32); CHLORIDE 100 MMOL/L (98-107); GFR ESTIMATED > 60; GLUCOSE 113 MG/DL (70-105); POTASSIUM 4.1 MMOL/L (3.6-5.0); SODIUM 134 MMOL/L (135-145)
[2019-11-17 13:13] LABS: BASOPHILS % (AUTO) 0 % (0-10); EOSINOPHILS % (AUTO) 0 % (0-10); HEMATOCRIT 23 % (40-54); HEMOGLOBIN 7.8 G/DL (13.3-17.7); LYMPHOCYTES # (AUTO) 1.5 X 10^3 (1.0-4.0); LYMPHOCYTES % (AUTO) 81 % (12-44); MEAN CORPUSCULAR HEMOGLOBIN 33 PG (25-34); MEAN CORPUSCULAR HGB CONC 34 G/DL (32-36); MEAN CORPUSCULAR VOLUME 99 FL (80-99); MEAN PLATELET VOLUME 10.8 FL (7.4-10.4); MONOCYTES # (AUTO) 0.1 X 10^3 (0.0-1.0); MONOCYTES % (AUTO) 3 % (0-12); NEUTROPHILS # (AUTO) 0.3 X 10^3 (1.8-7.8); NEUTROPHILS % (AUTO) 16 % (42-75); RED CELL DISTRIBUTION WIDTH 17.3 % (10.0-14.5); WHITE BLOOD COUNT 1.8 10^3/uL (4.3-11.0)
[2019-11-17 13:16] LABS: PLATELET COUNT 14 10^3/uL (130-400)
[2019-11-21 12:21] LABS: BASOPHILS % (AUTO) 0 % (0-10); EOSINOPHILS % (AUTO) 1 % (0-10); HEMATOCRIT 22 % (40-54); HEMOGLOBIN 7.3 G/DL (13.3-17.7); LYMPHOCYTES # (AUTO) 0.9 X 10^3 (1.0-4.0); LYMPHOCYTES % (AUTO) 68 % (12-44); MEAN CORPUSCULAR HEMOGLOBIN 33 PG (25-34); MEAN CORPUSCULAR HGB CONC 34 G/DL (32-36); MEAN CORPUSCULAR VOLUME 97 FL (80-99); MEAN PLATELET VOLUME 8.6 FL (7.4-10.4); MONOCYTES # (AUTO) 0.1 X 10^3 (0.0-1.0); MONOCYTES % (AUTO) 5 % (0-12); NEUTROPHILS # (AUTO) 0.4 X 10^3 (1.8-7.8); NEUTROPHILS % (AUTO) 26 % (42-75); RED CELL DISTRIBUTION WIDTH 17.6 % (10.0-14.5)
[2019-11-21 12:22] LABS: PLATELET COUNT 32 10^3/uL (130-400); WHITE BLOOD COUNT 1.3 10^3/uL (4.3-11.0)
[2019-11-21 12:35] LABS: BUN/CREATININE RATIO 16; CALCIUM 8.7 MG/DL (8.5-10.1); CARBON DIOXIDE 21 MMOL/L (21-32); CHLORIDE 102 MMOL/L (98-107); CREATININE SERUM 0.97 MG/DL (0.60-1.30); GFR ESTIMATED > 60; GLUCOSE 119 MG/DL (70-105); POTASSIUM 4.8 MMOL/L (3.6-5.0); SODIUM 137 MMOL/L (135-145)
[2019-11-24 11:18] LABS: BASOPHILS % (AUTO) 0 % (0-10); EOSINOPHILS % (AUTO) 1 % (0-10); LYMPHOCYTES # (AUTO) 0.8 X 10^3 (1.0-4.0); LYMPHOCYTES % (AUTO) 80 % (12-44); MEAN CORPUSCULAR HEMOGLOBIN 33 PG (25-34); MEAN CORPUSCULAR HGB CONC 34 G/DL (32-36); MEAN CORPUSCULAR VOLUME 96 FL (80-99); MEAN PLATELET VOLUME 9.2 FL (7.4-10.4); MONOCYTES % (AUTO) 3 % (0-12); NEUTROPHILS # (AUTO) 0.2 X 10^3 (1.8-7.8); NEUTROPHILS % (AUTO) 17 % (42-75); RED CELL DISTRIBUTION WIDTH 17.3 % (10.0-14.5)
[2019-11-24 11:21] LABS: HEMATOCRIT 19 % (40-54); HEMOGLOBIN 6.4 G/DL (13.3-17.7); PLATELET COUNT 17 10^3/uL (130-400)
[2019-11-28 13:18] LABS: BASOPHILS % (AUTO) 0 % (0-10); EOSINOPHILS % (AUTO) 0 % (0-10); HEMATOCRIT 21 % (40-54); LYMPHOCYTES # (AUTO) 0.7 X 10^3 (1.0-4.0); LYMPHOCYTES % (AUTO) 80 % (12-44); MEAN CORPUSCULAR HEMOGLOBIN 31 PG (25-34); MEAN CORPUSCULAR HGB CONC 33 G/DL (32-36); MEAN CORPUSCULAR VOLUME 92 FL (80-99); MEAN PLATELET VOLUME 9.4 FL (7.4-10.4); MONOCYTES % (AUTO) 3 % (0-12); NEUTROPHILS # (AUTO) 0.2 X 10^3 (1.8-7.8); NEUTROPHILS % (AUTO) 17 % (42-75); RED CELL DISTRIBUTION WIDTH 18.6 % (10.0-14.5)
[2019-11-28 13:22] LABS: PLATELET COUNT 35 10^3/uL (130-400); WHITE BLOOD COUNT 0.9 10^3/uL (4.3-11.0)
[2019-12-01 11:19] LABS: BASOPHILS % (AUTO) 0 % (0-10); EOSINOPHILS % (AUTO) 0 % (0-10); LYMPHOCYTES # (AUTO) 0.6 X 10^3 (1.0-4.0); LYMPHOCYTES % (AUTO) 86 % (12-44); MEAN CORPUSCULAR HEMOGLOBIN 31 PG (25-34); MEAN CORPUSCULAR HGB CONC 34 G/DL (32-36); MEAN CORPUSCULAR VOLUME 93 FL (80-99); MEAN PLATELET VOLUME 9.2 FL (7.4-10.4); MONOCYTES % (AUTO) 4 % (0-12); NEUTROPHILS # (AUTO) 0.1 X 10^3 (1.8-7.8); NEUTROPHILS % (AUTO) 10 % (42-75); RED CELL DISTRIBUTION WIDTH 18.7 % (10.0-14.5)
[2019-12-01 11:20] LABS: WHITE BLOOD COUNT 0.7 10^3/uL (4.3-11.0)
[2019-12-01 11:21] LABS: HEMATOCRIT 19 % (40-54); HEMOGLOBIN 6.4 G/DL (13.3-17.7); PLATELET COUNT 39 10^3/uL (130-400)
[2019-12-05 12:57] LABS: BASOPHILS % (AUTO) 1 % (0-10); EOSINOPHILS % (AUTO) 1 % (0-10); HEMATOCRIT 22 % (40-54); HEMOGLOBIN 7.4 G/DL (13.3-17.7); LYMPHOCYTES # (AUTO) 0.6 X 10^3 (1.0-4.0); LYMPHOCYTES % (AUTO) 84 % (12-44); MEAN CORPUSCULAR HEMOGLOBIN 31 PG (25-34); MEAN CORPUSCULAR HGB CONC 34 G/DL (32-36); MEAN CORPUSCULAR VOLUME 92 FL (80-99); MEAN PLATELET VOLUME 8.8 FL (7.4-10.4); MONOCYTES % (AUTO) 3 % (0-12); NEUTROPHILS # (AUTO) 0.1 X 10^3 (1.8-7.8); NEUTROPHILS % (AUTO) 11 % (42-75); PLATELET COUNT 50 10^3/uL (130-400); RED CELL DISTRIBUTION WIDTH 17.6 % (10.0-14.5)
[2019-12-05 13:01] LABS: WHITE BLOOD COUNT 0.8 10^3/uL (4.3-11.0)
[2019-12-05 13:15] LABS: ALANINE AMINOTRANSFERASE 9 U/L (0-55); ALBUMIN 3.5 GM/DL (3.2-4.5); ALKALINE PHOSPHATASE 82 U/L (40-136); BILIRUBIN,TOTAL 0.8 MG/DL (0.1-1.0); BUN/CREATININE RATIO 17; CALCIUM 8.5 MG/DL (8.5-10.1); CARBON DIOXIDE 23 MMOL/L (21-32); CHLORIDE 105 MMOL/L (98-107); CREATININE SERUM 0.78 MG/DL (0.60-1.30); GFR ESTIMATED > 60; GLUCOSE 124 MG/DL (70-105); POTASSIUM 4.3 MMOL/L (3.6-5.0); SODIUM 138 MMOL/L (135-145); TOTAL PROTEIN 6.1 GM/DL (6.4-8.2)
[2019-12-08 10:06] LABS: BASOPHILS % (AUTO) 1 % (0-10); EOSINOPHILS % (AUTO) 1 % (0-10); HEMATOCRIT 21 % (40-54); LYMPHOCYTES # (AUTO) 0.7 X 10^3 (1.0-4.0); LYMPHOCYTES % (AUTO) 84 % (12-44); MEAN CORPUSCULAR HEMOGLOBIN 32 PG (25-34); MEAN CORPUSCULAR HGB CONC 34 G/DL (32-36); MEAN CORPUSCULAR VOLUME 93 FL (80-99); MEAN PLATELET VOLUME 9.4 FL (7.4-10.4); MONOCYTES % (AUTO) 4 % (0-12); NEUTROPHILS # (AUTO) 0.1 X 10^3 (1.8-7.8); NEUTROPHILS % (AUTO) 11 % (42-75); PLATELET COUNT 59 10^3/uL (130-400); RED CELL DISTRIBUTION WIDTH 18.3 % (10.0-14.5)
[2019-12-08 10:11] LABS: WHITE BLOOD COUNT 0.9 10^3/uL (4.3-11.0)
[2019-12-19 13:27] LABS: BASOPHILS % (AUTO) 0 % (0-10); EOSINOPHILS % (AUTO) 1 % (0-10); HEMATOCRIT 26 % (40-54); HEMOGLOBIN 8.8 G/DL (13.3-17.7); LYMPHOCYTES # (AUTO) 0.6 X 10^3 (1.0-4.0); LYMPHOCYTES % (AUTO) 66 % (12-44); MEAN CORPUSCULAR HEMOGLOBIN 32 PG (25-34); MEAN CORPUSCULAR HGB CONC 34 G/DL (32-36); MEAN CORPUSCULAR VOLUME 94 FL (80-99); MEAN PLATELET VOLUME 9.2 FL (7.4-10.4); MONOCYTES # (AUTO) 0.1 X 10^3 (0.0-1.0); MONOCYTES % (AUTO) 13 % (0-12); NEUTROPHILS # (AUTO) 0.2 X 10^3 (1.8-7.8); NEUTROPHILS % (AUTO) 20 % (42-75); PLATELET COUNT 67 10^3/uL (130-400); RED CELL DISTRIBUTION WIDTH 19.8 % (10.0-14.5)
[2019-12-19 13:43] LABS: BUN/CREATININE RATIO 14; CALCIUM 8.4 MG/DL (8.5-10.1); CARBON DIOXIDE 25 MMOL/L (21-32); CHLORIDE 105 MMOL/L (98-107); CREATININE SERUM 0.72 MG/DL (0.60-1.30); GFR ESTIMATED > 60; GLUCOSE 128 MG/DL (70-105); POTASSIUM 4.1 MMOL/L (3.6-5.0); SODIUM 137 MMOL/L (135-145)
[2019-12-22 13:30] LABS: BASOPHILS % (AUTO) 0 % (0-10); EOSINOPHILS % (AUTO) 1 % (0-10); HEMATOCRIT 26 % (40-54); HEMOGLOBIN 8.5 G/DL (13.3-17.7); LYMPHOCYTES # (AUTO) 1.3 X 10^3 (1.0-4.0); LYMPHOCYTES % (AUTO) 67 % (12-44); MEAN CORPUSCULAR HEMOGLOBIN 31 PG (25-34); MEAN CORPUSCULAR HGB CONC 32 G/DL (32-36); MEAN CORPUSCULAR VOLUME 95 FL (80-99); MEAN PLATELET VOLUME 8.8 FL (7.4-10.4); MONOCYTES # (AUTO) 0.2 X 10^3 (0.0-1.0); MONOCYTES % (AUTO) 9 % (0-12); NEUTROPHILS # (AUTO) 0.5 X 10^3 (1.8-7.8); NEUTROPHILS % (AUTO) 25 % (42-75); PLATELET COUNT 88 10^3/uL (130-400); RED CELL DISTRIBUTION WIDTH 20.9 % (10.0-14.5); WHITE BLOOD COUNT 1.9 10^3/uL (4.3-11.0)
[2019-12-26 13:05] LABS: BASOPHILS % (AUTO) 1 % (0-10); EOSINOPHILS % (AUTO) 2 % (0-10); HEMATOCRIT 26 % (40-54); HEMOGLOBIN 8.7 G/DL (13.3-17.7); LYMPHOCYTES # (AUTO) 0.8 X 10^3 (1.0-4.0); LYMPHOCYTES % (AUTO) 56 % (12-44); MEAN CORPUSCULAR HEMOGLOBIN 31 PG (25-34); MEAN CORPUSCULAR HGB CONC 33 G/DL (32-36); MEAN CORPUSCULAR VOLUME 94 FL (80-99); MEAN PLATELET VOLUME 9.2 FL (7.4-10.4); MONOCYTES # (AUTO) 0.1 X 10^3 (0.0-1.0); MONOCYTES % (AUTO) 9 % (0-12); NEUTROPHILS # (AUTO) 0.5 X 10^3 (1.8-7.8); NEUTROPHILS % (AUTO) 32 % (42-75); PLATELET COUNT 82 10^3/uL (130-400); RED CELL DISTRIBUTION WIDTH 20.8 % (10.0-14.5); WHITE BLOOD COUNT 1.5 10^3/uL (4.3-11.0)
[2019-12-29 12:57] LABS: BASOPHILS % (AUTO) 0 % (0-10); EOSINOPHILS % (AUTO) 0 % (0-10); HEMATOCRIT 24 % (40-54); HEMOGLOBIN 8.2 G/DL (13.3-17.7); LYMPHOCYTES # (AUTO) 1.2 X 10^3 (1.0-4.0); LYMPHOCYTES % (AUTO) 51 % (12-44); MEAN CORPUSCULAR HEMOGLOBIN 32 PG (25-34); MEAN CORPUSCULAR HGB CONC 34 G/DL (32-36); MEAN CORPUSCULAR VOLUME 95 FL (80-99); MEAN PLATELET VOLUME 9.4 FL (7.4-10.4); MONOCYTES # (AUTO) 0.2 X 10^3 (0.0-1.0); MONOCYTES % (AUTO) 8 % (0-12); NEUTROPHILS # (AUTO) 0.9 X 10^3 (1.8-7.8); NEUTROPHILS % (AUTO) 41 % (42-75); PLATELET COUNT 71 10^3/uL (130-400); RED CELL DISTRIBUTION WIDTH 21.7 % (10.0-14.5); WHITE BLOOD COUNT 2.3 10^3/uL (4.3-11.0)
[2020-01-02 13:08] LABS: BASOPHILS % (AUTO) 1 % (0-10); EOSINOPHILS % (AUTO) 1 % (0-10); HEMATOCRIT 24 % (40-54); HEMOGLOBIN 8.2 G/DL (13.3-17.7); LYMPHOCYTES # (AUTO) 0.9 X 10^3 (1.0-4.0); LYMPHOCYTES % (AUTO) 43 % (12-44); MEAN CORPUSCULAR HEMOGLOBIN 32 PG (25-34); MEAN CORPUSCULAR HGB CONC 34 G/DL (32-36); MEAN CORPUSCULAR VOLUME 94 FL (80-99); MEAN PLATELET VOLUME 9.5 FL (7.4-10.4); MONOCYTES # (AUTO) 0.2 X 10^3 (0.0-1.0); MONOCYTES % (AUTO) 9 % (0-12); NEUTROPHILS # (AUTO) 0.9 X 10^3 (1.8-7.8); NEUTROPHILS % (AUTO) 46 % (42-75); PLATELET COUNT 68 10^3/uL (130-400); RED CELL DISTRIBUTION WIDTH 22.4 % (10.0-14.5)
[2020-01-02 13:30] LABS: BUN/CREATININE RATIO 19; CALCIUM 8.7 MG/DL (8.5-10.1); CARBON DIOXIDE 22 MMOL/L (21-32); CHLORIDE 103 MMOL/L (98-107); CREATININE SERUM 0.79 MG/DL (0.60-1.30); GFR ESTIMATED > 60; GLUCOSE 136 MG/DL (70-105); POTASSIUM 3.7 MMOL/L (3.6-5.0); SODIUM 137 MMOL/L (135-145)
[2020-01-05 13:35] LABS: BASOPHILS % (AUTO) 2 % (0-10); EOSINOPHILS % (AUTO) 1 % (0-10); HEMATOCRIT 25 % (40-54); HEMOGLOBIN 8.1 G/DL (13.3-17.7); LYMPHOCYTES # (AUTO) 0.9 X 10^3 (1.0-4.0); LYMPHOCYTES % (AUTO) 48 % (12-44); MEAN CORPUSCULAR HEMOGLOBIN 32 PG (25-34); MEAN CORPUSCULAR HGB CONC 33 G/DL (32-36); MEAN CORPUSCULAR VOLUME 98 FL (80-99); MEAN PLATELET VOLUME 10.2 FL (7.4-10.4); MONOCYTES # (AUTO) 0.2 X 10^3 (0.0-1.0); MONOCYTES % (AUTO) 10 % (0-12); NEUTROPHILS # (AUTO) 0.7 X 10^3 (1.8-7.8); NEUTROPHILS % (AUTO) 40 % (42-75); PLATELET COUNT 79 10^3/uL (130-400); RED CELL DISTRIBUTION WIDTH 24.5 % (10.0-14.5); WHITE BLOOD COUNT 1.8 10^3/uL (4.3-11.0)
[~2020-01-09] VITALS: Ht 177.8 cm; Wt 105.2 kg
[~2020-01-09 12:59] MED LIST changes: +ACETAMINOPHEN 500 MG TAB (TYLENOL) CANCER CTR ONE; +AZACITIDINE SQ SCH; +NS (IVPB) CANCER CENTER 250 ML ONE; +NS IV 500 ML (CANCER CENTER) 500 ML ONE; +NS SQ SCH; +ONDANSETRON MDV (CANCER CENTER 16 MG, DEXAMETHASONE INJ (CANCER CTR) 4 MG in NS (IVPB) ... IV SCH; +ONDANSETRON MDV (CANCER CENTER 16 MG, DEXAMETHASONE INJECTION 10 MG in NS (IVPB) CANCER... IV SCH; +PALONOSETRON HCL 0.25 MG, DEXAMETHASONE INJ (CANCER CTR) 4 MG in NS (IVPB) CANCER CENTE... IV SCH; +PALONOSETRON HCL 0.25 MG, DEXAMETHASONE INJECTION 10 MG in NS (IVPB) CANCER CENTER 50 ML IV SCH; +diphenhydrAMINE 25 MG TAB (BENADRYL) CANCER CENTER PO ONE
[2020-01-09 13:28] LABS: BASOPHILS % (AUTO) 3 % (0-10); EOSINOPHILS % (AUTO) 2 % (0-10); HEMATOCRIT 24 % (40-54); HEMOGLOBIN 7.7 G/DL (13.3-17.7); LYMPHOCYTES # (AUTO) 0.5 X 10^3 (1.0-4.0); LYMPHOCYTES % (AUTO) 45 % (12-44); MEAN CORPUSCULAR HEMOGLOBIN 33 PG (25-34); MEAN CORPUSCULAR HGB CONC 32 G/DL (32-36); MEAN CORPUSCULAR VOLUME 103 FL (80-99); MEAN PLATELET VOLUME 9.1 FL (7.4-10.4); MONOCYTES # (AUTO) 0.1 X 10^3 (0.0-1.0); MONOCYTES % (AUTO) 9 % (0-12); NEUTROPHILS # (AUTO) 0.5 X 10^3 (1.8-7.8); NEUTROPHILS % (AUTO) 41 % (42-75); PLATELET COUNT 132 10^3/uL (130-400)
[2020-01-09 13:32] LABS: WHITE BLOOD COUNT 1.2 10^3/uL (4.3-11.0)
[2020-01-09 13:35] LABS: CHLORIDE 104 MMOL/L (98-107); POTASSIUM 4.1 MMOL/L (3.6-5.0); SODIUM 139 MMOL/L (135-145)
[2020-01-09 13:36] LABS: CALCIUM 8.6 MG/DL (8.5-10.1); GLUCOSE 111 MG/DL (70-105)
[2020-01-09 13:38] LABS: CARBON DIOXIDE 25 MMOL/L (21-32)
[2020-01-09 13:40] LABS: CREATININE SERUM 0.84 MG/DL (0.60-1.30); GFR ESTIMATED > 60
[2020-01-09 13:41] LABS: BUN/CREATININE RATIO 13
== END 2020-01-10 | disposition home or self-care (01) ==
LOC: ONC 12:59
PROVIDERS: ATTEND Internal Medicine Hematology & Oncology
DX: D61.818 Other pancytopenia (principal); J44.9 Chronic obstructive pulmonary disease, unspecified; I10 Essential (primary) hypertension; E78.00 Pure hypercholesterolemia, unspecified; I25.10 Atherosclerotic heart disease of native coronary artery without angina pectoris; F32.9 Major depressive disorder, single episode, unspecified; Z79.82 Long term (current) use of aspirin; Z87.891 Personal history of nicotine dependence
CPT/HCPCS: 36415; 36430; 36591; 80048; 80053; 82607; 82746; 83615; 84443; 85007; 85025; 86850; 86900; 86901; 86920; 96374; 96375; 96409; 99213; 99214

== ENCOUNTER 2020-02-05 14:49 | Emergency (ER) | payer MEDICARE, OTHER ==
[~2020-02-05] VITALS: Ht 177 cm; Wt 96.0 kg
[~2020-02-05 14:49] MED LIST changes: -ACETAMINOPHEN 500 MG TAB (TYLENOL) CANCER CTR ONE; -AZACITIDINE SQ SCH; -NS (IVPB) CANCER CENTER 250 ML ONE; -NS IV 500 ML (CANCER CENTER) 500 ML ONE; -NS SQ SCH; -ONDANSETRON MDV (CANCER CENTER 16 MG, DEXAMETHASONE INJ (CANCER CTR) 4 MG in NS (IVPB) ... IV SCH; -ONDANSETRON MDV (CANCER CENTER 16 MG, DEXAMETHASONE INJECTION 10 MG in NS (IVPB) CANCER... IV SCH; -PALONOSETRON HCL 0.25 MG, DEXAMETHASONE INJ (CANCER CTR) 4 MG in NS (IVPB) CANCER CENTE... IV SCH; -PALONOSETRON HCL 0.25 MG, DEXAMETHASONE INJECTION 10 MG in NS (IVPB) CANCER CENTER 50 ML IV SCH; -diphenhydrAMINE 25 MG TAB (BENADRYL) CANCER CENTER PO ONE
--- OUTSIDE RECORDS SUMMARY | 2020-02-05 15:00 | XMS REPORT | CCD ---
Author Author Andrea Piper D.O. 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 PP Unavailable CCM Unavailable Summary Purpose Interface Exchange Insurance Providers Payer name Policy type / Coverage type Covered constitution party ID Effective Begin Date Effective End Date WPS MEDICARE PART B [place] Medicare Part B [id number] Unknown [employer] [place] Medicare Part B [id number] Unknown Family history Mother Diagnosis Age At Onset Breast cancer Unknown Brother Diagnosis Age At Onset Hypertension Unknown Grandfather Diagnosis Age At Onset Myocardial infarction Unknown Social History Social History Element Codes Description Effective Dates Tobacco history SNOMED CT: 021878798 Never smoker 05/18/2015 Marital status Unknown 01/18/2015 Number of children Unknown 3 01/18/2015 Employment Unknown Retired 01/18/[address]: 342153535 Never drinks alcohol 2014 Has the patient [...] Problems Condition Codes Effective Dates Condition Status Chronic depressive disorder ICD-9: 301.12 ICD-10: F32.9 01/04/2020 Active Pancytopenia ICD-9: 284.19 ICD-10: D61.818 09/05/2019 Active [...] R42 10/17/2015 Active Atherosclerotic heart disease of [place] coronary arter y without angina pectoris ICD-9: [...] Start Date Stop Date Status Fill Instructions Wellbutrin XL 150 mg 24 hr tablet, extended release RxNorm: 387889 TAKE ONE TABLET BY MOUTH EVERY MORNING. THIS REPLACES DULOXETINE 01/26/2020 No S top Date Active escitalopram 10 mg tablet RxNorm: 214688 1 Tablet(s) Or al QPM for mood--replaces duloxetine 01/04/2020 02/03/2020 Active Zofran 8 mg tablet RxNorm: 152262 1 Tablet(s) Oral as needed fo r nausea 01/04/2020 No Stop Date Active Wellbutrin XL 150 mg 24 hr tablet, extended release RxNorm: 880365 1 Tablet(s) Oral QAM replaces duloxetine 01/04/2020 01/25/2020 Inactive baclofen 20 mg tablet RxNorm: 434026 TAKE ONE TABLET BY MOUTH EVERY NIGHT AT BEDTIME FOR MUSCLE SPASMS AND TAKE ONE TABLET EVERY MORNING NEEDED 01/02/2020 No Stop Date Active Dexilant 60 mg capsule, delayed release RxNorm: 036569 TAKE ONE CAPSULE BY MOUTH DAILY 12/14/2019 No Stop Date Active Cymbalta 60 mg capsule,delayed release RxNorm: 937348 2 Capsule (s) Oral QD 10/24/2019 01/03/2020 Inactive Dexilant 60 mg capsule, delayed release RxNorm: 423517 TAKE ONE CAPSULE BY MOUTH DAILY 09/19/2019 2019 Inactive Lyrica 50 mg capsule RxNorm: 373111 2 Capsule(s) Oral Q PM for 3 days then 1 po q PM for 3 days then stop 09/05/2019 10/09/2019 Inactive Lyrica 150 mg capsule RxNorm: 656064 1 Capsule(s) Oral every ni ght at bedtime 09/05/2019 09/05/2019 Inactive metoprolol succinate ER 100 mg tablet,extended release 24 hr RxNorm: 154039 1 Tablet(s) Oral QD 08/29/2019 11/27/2019 Inactive hydrocodone 7.5 mg-acetaminophen 325 mg tablet RxNorm: 27592 5 1 Tablet(s) Oral Q4H as needed for pain 08/15/2019 08/21/2019 Inactive Lyrica 150 mg capsule RxNorm: 278998 TAKE ONE CAPSULE BY MOUTH TWICE A DAY 08/11/2019 09/04/2019 Inactive baclofen 20 mg tablet RxNorm: 431756 TAKE ONE TABLET BY MOUTH EVERY NIGHT AT BEDTIME FOR MUSCLE SPASMS AND TAKE ONE TABLET EVERY MORNING NEEDED 08/10/2019 01/01/2020 Inactive Dexilant 60 mg capsule, delayed release RxNorm: 921270 TAKE ONE CAPSULE BY MOUTH DAILY 07/19/2019 09/18/2019 Inactive Cymbalta 60 mg capsule,delayed release RxNorm: 399185 T LASHAUN TWO CAPSULES BY MOUTH DAILY 07/06/2019 10/23/2019 Inactive cyanocobalamin (vit B-12) 1,000 mcg/mL injection solution Rx Norm: 524448 1 Milliliter(s) Intramuscular every two weeks 06/02/2019 06/02/2019 Inac tive cyanocobalamin (vit B-12) 1,000 mcg/mL injection solution Rx Norm: 584939 1 Milliliter(s) Intramuscular every two weeks 05/23/2019 06/01/2019 Inac tive Dexilant 60 mg capsule, delayed release RxNorm: 400373 TAKE ONE CAPSULE BY MOUTH DAILY 05/19/2019 07/17/2019 Inactive Lyrica 150 mg capsule RxNorm: 842590 1 Capsule(s) PO BID 05/11/2019 1 10/09/2018 Inactive Cymbalta 60 mg capsule,delayed release RxNorm: 911289 2 Capsule (s) PO QD 04/04/2019 07/02/2019 Inactive cyanocobalamin (vit B-12) 1,000 mcg/mL injection solution Rx Norm: 623771 1 Milliliter(s) IM QW 03/17/2019 05/22/2019 Inactive Lyrica 150 mg capsule RxNorm: 524965 TAKE ONE CAPSULE BY MOUTH TWICE A DAY 03/08/2019 03/09/2019 Inactive cyanocobalamin (vit B-12) 1,000 mcg/mL injection solution Rx Norm: 520440 1 Milliliter(s) IM QW 02/16/2019 03/16/2019 Inactive Lyrica 150 mg capsule RxNorm: 329935 TAKE ONE CAPSULE BY MOUTH TWICE A DAY 02/08/2019 03/08/2019 Inactive Dexilant 60 mg capsule, delayed release RxNorm: 934708 1 Capsul e(s) PO QD 02/08/2019 05/08/2019 Inactive Dexilant 60 mg capsule, delayed release RxNorm: 207031 TAKE ONE CAPSULE BY MOUTH DAILY 01/03/2019 02/08/2019 Inactive Lyrica 150 mg capsule RxNorm: 240659 1 Capsule(s) PO BID 01/03/2019 0 02/08/2019 Inactive Cymbalta 60 mg capsule,delayed release RxNorm: 853935 T LASHAUN TWO CAPSULES BY MOUTH DAILY 12/27/2018 04/04/2019 Inactive Dexilant 60 mg capsule, delayed release RxNorm: 753550 TAKE ONE CAPSULE BY MOUTH DAILY 12/07/2018 01/02/2019 Inactive prednisone 20 mg tablet RxNorm: 957626 Take 3 tabs by m outh for 3 days, then 2 tabs by mouth for 3 days, then 1 tab by mouth for 3 days Take 2 tabs for 10/29/2018 11/07/2018 Inactive doxycycline hyclate 100 mg tablet RxNorm: 7229471 1 Tablet(s) PO BI D 10/26/2018 11/04/2018 Inactive doxycycline hyclate 100 mg tablet RxNorm: 1009069 1 Tablet(s) PO BI D 10/26/2018 10/25/2018 Inactive Dexilant 60 mg capsule, delayed release RxNorm: 866605 TAKE ONE CAPSULE BY MOUTH DAILY 10/04/2018 12/06/2018 Inactive Lyrica 150 mg capsule RxNorm: 023881 TAKE ONE CAPSULE BY MOUTH TWICE A DAY 10/04/2018 11/02/2018 Inactive baclofen 20 mg tablet RxNorm: 724712 1 Tablet(s) PO QHS for muscle spasm and q AM prn 08/11/2018 08/09/2019 Inactive Lyrica 150 mg capsule RxNorm: 088668 1 Capsule(s) PO BID 08/06/2018 0 10/04/2018 Inactive Dexilant 60 mg capsule, delayed release RxNorm: 822275 TAKE ONE CAPSULE BY MOUTH DAILY 07/07/2018 10/03/2018 Inactive Cymbalta 60 mg capsule,delayed release RxNorm: 122898 T LASHAUN TWO CAPSULES BY MOUTH DAILY 06/28/2018 12/24/2018 Inactive prednisone 20 mg tablet RxNorm: 726166 1 Tablet(s) PO BID 06/17/2018 06/21/2018 Inactive Zithromax Z-Osman 250 mg tablet RxNorm: 059344 Tablet(s) PO take as directed 06/17/2018 08/10/2018 Inactive Flagyl 500 mg tablet RxNorm: 135354 1 Tablet(s) PO BID 06/11/2018 Inactive Cipro 250 mg tablet RxNorm: 099588 1 Tablet(s) PO BID 06/11/201805/31 Inactive atenolol 50 mg tablet RxNorm: 028682 1 Tablet(s) PO BID 05/31/2018 Inactive albuterol sulfate 2.5 mg/3 mL (0.083 %) solution for n ebulization RxNorm: 938555 3 Milliliter(s) INH Q4H as needed 05/17/2018 No Stop Date Active Zithromax Z-Osman 250 mg tablet RxNorm: 260861 Tablet(s) PO take as directed 05/17/2018 06/10/2018 Inactive Lyrica 150 mg capsule RxNorm: 152010 1 Capsule(s) PO BID 05/12/2018 1 10/07/2017 Inactive hydrocodone 7.5 mg-acetaminophen 325 mg tablet RxNorm: 18150 5 1 Tablet(s) PO Q4H as needed for pain 05/12/2018 05/18/2018 Inactive Cymbalta 60 mg capsule,delayed release RxNorm: 319732 T LASHAUN TWO CAPSULES BY MOUTH DAILY 04/01/2018 04/04/2018 Inactive Lyrica 100 mg capsule RxNorm: 954532 Capsule(s) TAKE ON E CAPSULE BY MOUTH TWICE A DAY 03/01/2018 05/11/2018 Inactive Dexilant 60 mg capsule, delayed release RxNorm: 754585 1 Capsul e(s) PO QD 01/06/2018 07/04/2018 Inactive atenolol 50 mg tablet RxNorm: 849935 1 Tablet(s) PO BID 12/30/2017 Inactive Lyrica 100 mg capsule RxNorm: 944546 Capsule(s) TAKE ON E CAPSULE BY MOUTH TWICE A DAY 12/30/2017 02/26/2018 Inactive Cymbalta 60 mg capsule,delayed release RxNorm: 835459 2 Capsule (s) PO QD 12/30/2017 03/29/2018 Inactive ProAir HFA 90 mcg/actuation aerosol inhaler RxNorm: 455419 INHALE 2 PUFFS FOUR TIMES A DAY 11/12/2017 01/25/2018 Inactive Cymbalta 60 mg capsule,delayed release RxNorm: 233702 2 Capsule (s) PO QD 10/06/2017 12/30/2017 Inactive Lyrica 100 mg capsule RxNorm: 342855 TAKE ONE CAPSULE BY MOUTH TWICE A DAY 09/28/2017 10/26/2017 Inactive Lyrica 100 mg capsule RxNorm: 604816 1 Capsule(s) PO BID 08/26/2017 0 09/28/2017 Inactive Zithromax Z-Osman 250 mg tablet RxNorm: 946820 Tablet(s) PO As Di rected 08/07/2017 05/11/2018 Inactive Diflucan 150 mg tablet RxNorm: 758044 1 Tablet(s) PO Q72H 07/20/2017 05/11/2018 Inactive nystatin 100,000 unit/mL oral suspension RxNorm: 829225 5 Milliliter(s) PO QID swish and spit for 2 weeks 07/07/2017 07/20/2017 Inactive fluconazole 100 mg tablet RxNorm: 433502 1 Tablet(s) PO QD 07/07/2007/13/2017 Inactive Dexilant 60 mg capsule, delayed release RxNorm: 066745 1 Capsul e(s) PO QD 07/01/2017 01/06/2018 Inactive Cymbalta 60 mg capsule,delayed release RxNorm: 220661 2 Capsule (s) PO QD 07/01/2017 09/28/2017 Inactive atenolol 50 mg tablet RxNorm: 883967 1 Tablet(s) PO BID 06/17/2017 Inactive atenolol 50 mg tablet RxNorm: 891463 1 Tablet(s) PO BID 06/17/2017 Inactive atenolol 25 mg tablet RxNorm: 291097 1 Tablet(s) PO QD 06/16/2017 Inactive Cipro 250 mg tablet RxNorm: 941598 1 Tablet(s) PO BID 05/26/201705/02 Inactive Cipro 250 mg tablet RxNorm: 795221 1 Tablet(s) PO BID 05/26/201710/2016 Inactive Cymbalta 60 mg capsule,delayed release RxNorm: 245623 2 Capsule (s) PO QD 04/02/2017 07/01/2017 Inactive Zanaflex 4 mg tablet RxNorm: 082084 1 Tablet(s) PO BID as neede d for spasm 03/18/2017 05/11/2018 Inactive methocarbamol 750 mg tablet RxNorm: 914177 1 Tablet(s) PO TID as needed for muscle spasm 03/17/2017 03/17/2017 Inactive Cymbalta 60 mg capsule,delayed release RxNorm: 399722 T LASHAUN TWO CAPSULES BY MOUTH DAILY 01/01/2017 04/02/2017 Inactive atenolol 25 mg tablet RxNorm: 017235 1 Tablet(s) PO QD 01/01/2017 Inactive Dexilant 60 mg capsule, delayed release RxNorm: 781914 1 Capsul e(s) PO QD 12/24/2016 07/01/2017 Inactive prednisone 20 mg tablet RxNorm: 784092 1 Tablet(s) PO BID 12/17/2016 12/23/2016 Inactive doxycycline hyclate 100 mg capsule RxNorm: 0428739 1 Capsule(s) PO BID 12/11/2016 12/20/2016 Inactive doxycycline hyclate 100 mg capsule RxNorm: 3988786 1 Capsule(s) PO BID 12/11/2016 12/10/2016 Inactive albuterol sulfate 2.5 mg/3 mL (0.083 %) solution for n ebulization RxNorm: 250843 3 Milliliter(s) INH Q4H as needed 12/11/2016 05/16/2018 Inactiv e guaifenesin 400 mg tablet RxNorm: 251572 1 Tablet(s) PO QID 017 05/11/2018 Inactive Tessalon Perles 100 mg capsule RxNorm: 063272 1 Capsule (s) PO TID as needed for cough 12/10/2016 12/31/2016 Inactive ProAir HFA 90 mcg/actuation aerosol inhaler RxNorm: 124463 INHALE 2 PUFFS FOUR TIMES A DAY 08/12/2016 11/12/2017 Inactive Dexilant 60 mg capsule, delayed release RxNorm: 856599 TAKE ONE CAPSULE BY MOUTH DAILY 06/16/2016 12/24/2016 Inactive Cymbalta 60 mg capsule,delayed release RxNorm: 571507 2 Capsule (s) PO QD 06/16/2016 12/12/2016 Inactive zolpidem 10 mg tablet RxNorm: 110459 TAKE ONE TABLET BY MOUTH A T BEDTIME 03/10/2016 05/28/2016 Inactive Dexilant 60 mg capsule, delayed release RxNorm: 221640 TAKE ONE CAPSULE BY MOUTH DAILY 02/06/2016 06/04/2016 Inactive Cymbalta 60 mg capsule,delayed release RxNorm: 679898 2 Capsule (s) PO QD 11/19/2015 05/16/2016 Inactive zolpidem 10 mg tablet RxNorm: 545957 TAKE ONE TABLET BY MOUTH A T BEDTIME 10/02/2015 03/10/2016 Inactive Dexilant 60 mg capsule, delayed release RxNorm: 884360 TAKE ONE CAPSULE BY MOUTH DAILY 08/28/2015 01/24/2016 Inactive ProAir HFA 90 mcg/actuation aerosol inhaler RxNorm: 928041 2 Pu ff(s) INH QID 06/25/2015 10/22/2015 Inactive famotidine 40 mg tablet RxNorm: 438768 1 Tablet(s) PO QHS 06/25/2015 10/09/2015 Inactive Dexilant 60 mg capsule, delayed release RxNorm: 760029 1 Capsul e(s) PO QD 06/07/2015 08/27/2015 Inactive zolpidem 10 mg tablet RxNorm: 245730 TAKE ONE TABLET BY MOUTH EVERY NIGHT AT BEDTIME 06/01/2015 10/03/2015 Inactive Cymbalta 60 mg capsule,delayed release RxNorm: 889227 2 Capsule (s) PO QD 05/10/2015 11/19/2015 Inactive Cymbalta 60 mg capsule,delayed release RxNorm: 256288 2 Capsule (s) PO QD 04/11/2015 05/10/2015 Inactive zolpidem 10 mg tablet RxNorm: 857643 TAKE ONE TABLET BY MOUTH A T BEDTIME 04/06/2015 06/01/2015 Inactive zolpidem 10 mg tablet RxNorm: 983578 TAKE ONE TABLET BY MOUTH A T BEDTIME 03/05/2015 04/06/2015 Inactive zolpidem 10 mg tablet RxNorm: 486798 1 Tablet(s) PO QHS as need ed for sleep 02/27/2015 03/04/2015 Inactive Cymbalta 60 mg capsule,delayed release RxNorm: 943649 1 Capsule (s) PO QD 01/18/2015 04/10/2015 Inactive [AttnRPh: Saving clare ly/adjudicate RxGRP:[id number] RxBIN:[id number] RxPCN: ID#:[id number]] Trazadone 75mg Tablet RxNorm: 1-2 Tablet(s) PO QHS as ne eded for sleep 01/18/2015 02/26/2015 Inactive Singulair 10 mg tablet RxNorm: 290530 1 Tablet(s) PO QD No Start Date Active Tylenol Extra Strength 500 mg tablet RxNorm: 047651 Tablet(s) P O as needed No Start Date Active methocarbamol 750 mg tablet RxNorm: 083585 Tablet(s) PO as needed N o Start Date Active Vitamin D3 1,000 unit capsule RxNorm: 098684 1 Capsule(s) PO BID No Start Date Active aspirin 81 mg tablet RxNorm: 744794 1 Tablet(s) PO QD No Start Date Active Symbicort 160 mcg-4.5 mcg/actuation HFA aerosol inhaler RxNo rm: 9712203 2 Puff(s) INH BID No Start Date Active atorvastatin 40 mg tablet RxNorm: 441910 1 Tablet(s) PO QD No Start D ate Active Trazadone 100 100mg mg Tablet RxNorm: 1-2 Tablet(s) PO QHS No Start Date 01/17/2015 Inactive Fish Oil 1,000 mg capsule RxNorm: 1 Capsule(s) PO QD No Start Date 05/16/2018 Inactive multivitamin with iron tablet RxNorm: 1 Tablet(s) PO QD No Sta rt Date 05/16/2018 Inactive Spiriva Respimat inhalation RxNorm: 969145 inhalation No Start Date 1 09/05/2016 Inactive atenolol 25 mg tablet RxNorm: 532212 1 Tablet(s) PO BID No Start Da te 12/31/2016 Inactive Spiriva Respimat 2.5 mcg/actuation solution for inhalation R xNorm: 8682009 2 Puff(s) INH QD No Start Date 05/11/2018 Inactive Zithromax Z-Osman 250 mg tablet RxNorm: 808130 Tablet(s) PO As Di rected No Start Date 08/06/2017 Inactive Zanaflex 4 mg tablet RxNorm: 021215 1 Tablet(s) PO BID as neede d for spasm No Start Date 03/17/2017 Inactive gabapentin 800 mg tablet RxNorm: 729863 1 Tablet(s) PO TID No Start Date 03/17/2016 Inactive losartan 100 mg tablet RxNorm: 381475 1 Tablet(s) PO QD No Start Da te 12/31/2016 Inactive cyclobenzaprine 10 mg tablet RxNorm: 995714 1 Tablet(s) PO TID as needed for muscle spasm No Start Date 05/11/2018 Inactive potassium chloride ER 10 mEq tablet,extended release RxNorm: 439381 Tablet(s) PO as needed No Start Date 01/04/2020 Inactive gabapentin 300 mg capsule RxNorm: 199524 1 Capsule(s) PO TID No Sta rt Date 10/09/2015 Inactive furosemide 40 mg tablet RxNorm: 417962 Tablet(s) PO as needed No St art Date 01/04/2020 Inactive ferrous sulfate 325 mg (65 mg iron) tablet RxNorm: 258259 1 Tab let(s) PO QD No Start Date 09/04/2019 Inactive Dexilant 60 mg capsule, delayed release RxNorm: 295900 1 Capsul e(s) PO QD No Start Date 06/06/2015 Inactive amitriptyline 25 mg tablet RxNorm: 573106 1-2 Tablet(s) PO QHS as needed for sleep --replaces ambien No Start Date 07/20/2016 Inactive hydrocodone 7.5 mg-acetaminophen 325 mg tablet RxNorm: 54552 5 1 Tablet(s) PO TID No Start Date 05/11/2018 Inactive Lyrica 75 mg capsule RxNorm: 651494 1 Capsule(s) PO BID No Start Da te 05/11/2018 Inactive gabapentin 300 mg capsule RxNorm: 254717 1 Capsule(s) PO QHS No Sta rt Date 02/07/2015 Inactive Lyrica 50 mg capsule RxNorm: 385931 1 Capsule(s) PO BID No Start Da te 07/20/2016 Inactive zolpidem 10 mg tablet RxNorm: 103736 1 Tablet(s) PO QHS No Start Da te 02/07/2015 Inactive citalopram 40 mg tablet RxNorm: 507444 1 Tablet(s) PO QD No Start D ate 01/17/2015 Inactive hydrocodone 7.5 mg-acetaminophen 325 mg tablet RxNorm: 09728 5 1 Tablet(s) PO Q6H as needed for pain No Start Date 03/17/2016 Inactive losartan 100 mg tablet RxNorm: 836887 1/2 Tablet(s) PO QD No Start Date 05/18/2017 Inactive cyanocobalamin (vit B-12) 1,000 mcg/mL injection solution Rx Norm: 947767 1 Milliliter(s) IM QW No Start Date 02/15/2019 Inactive ProAir HFA 90 mcg/actuation aerosol inhaler RxNorm: 3549748 2 Pu ff(s) INH TID No Start Date 06/24/2015 Inactive methocarbamol 750 mg tablet RxNorm: 586583 1 Tablet(s) PO TID as needed for [...] Code Result Date S ervice Location NCDF [id number] Neutrophil 27 % 10/11/2019 Unknown NCDF [id number] BAND 0 % 10/11/2019 Unknown [facility] [id number] Lymphocyte 59 % 10/11/2019 Unknown [facility] [id number] Monocyte 13 % 10/11/2019 Unknown [facility] [id number] Eosinophil 1 % 10/11/2019 [facility] [id number] Basophil 0 % 10/11/2019 Unknown [facility] [id number] Platelet Est Decreased 10/11/2019 Unkno wn NCDF [id number] Large Plts Present 10/11/2019 Unknown COMPLETE BLOOD COUNT [id number] WBC 2.4 10e9/L 10/10/19 20 Unknown COMPLETE BLOOD COUNT [id number] RBC 3.15 10e12/L 2019 Unknown COMPLETE BLOOD COUNT [id number] HEMOGLOBIN 11.4 g/dL 10/10/19 20 Unknown COMPLETE BLOOD COUNT [id number] HEMATOCRIT 35.0 % 10/10/19 20 Unknown COMPLETE BLOOD COUNT [id number] MCV 111.1 fL 0 Unknown COMPLETE BLOOD COUNT [id number] MCH 36.2 pg 0 Unknown COMPLETE BLOOD COUNT [id number] MCHC 32.6 g/dL 0 Unknown COMPLETE BLOOD COUNT [id number] PLATELET COUNT 18 10e9/L 10/01 Unknown COMPLETE BLOOD COUNT [id number] Mean Plt Volume 11.3 fL 05/2020 Unknown COMPLETE BLOOD COUNT [id number] Neut Auto 27.9 % 0 Unknown COMPLETE BLOOD COUNT [id number] Lymph Auto 58.5 % 10/10/19 20 Unknown COMPLETE BLOOD COUNT [id number] Leake Auto 12.0 % 0 Unknown COMPLETE BLOOD COUNT [id number] Eos Auto 0.4 % 0 Unknown COMPLETE BLOOD COUNT [id number] RDW 14.0 % 0 Unknown COMPLETE BLOOD COUNT 1143225 Baso Auto 1.2 % 0 Unknown COMPLETE BLOOD COUNT [id number] Neutrophil Abs 0.67 10e9/L Unknown COMPLETE BLOOD COUNT [id number] Lymphocyte Abs 1.40 10e9/L Unknown COMPLETE BLOOD COUNT [id number] Monocyte Abs 0.29 10e9/L 10/01 Unknown COMPLETE BLOOD COUNT [id number] Eosinophil Abs 0.01 10e9/L Unknown COMPLETE BLOOD COUNT [id number] Basophil Abs 0.03 10e9/L 10/01 Unknown COMPLETE BLOOD COUNT [id number] RDW-SD 54.2 fL 0 Unknown NCDF 7228515 Neutrophil 32 % 08/30/2019 Unknown NCDF [id number] BAND 4 % 08/30/2019 Unknown NCDF 8049222 Lymphocyte 43 % 08/30/2019 Unknown NCDF [id number] Monocyte 20 % 08/30/2019 Unknown NCDF 5448578 Eosinophil 1 % 08/30/2019 Unknown NCDF [id number] Basophil 0 % 08/30/2019 Unknown NCDF [id number] Platelet Est Decreased 08/30/2019 Unkno wn VITAMIN B 12 65523 VITAMIN B12 716 pg/mL 08/29/2019 Unkn own COMPLETE BLOOD COUNT [id number] WBC 3.0 10e9/L 08/29/20 19 Unknown COMPLETE BLOOD COUNT [id number] RBC 3.19 10e12/L 2018 Unknown COMPLETE BLOOD COUNT [id number] HEMOGLOBIN 11.5 g/dL 08/29/20 19 Unknown COMPLETE BLOOD COUNT [id number] HEMATOCRIT 35.6 % 08/29/20 19 Unknown COMPLETE BLOOD COUNT [id number] MCV 111.6 fL 9 Unknown COMPLETE BLOOD COUNT [id number] MCH 36.1 pg 9 Unknown COMPLETE BLOOD COUNT [id number] MCHC 32.3 g/dL 9 Unknown COMPLETE BLOOD COUNT [id number] PLATELET COUNT 79 10e9/L 08/02 Unknown COMPLETE BLOOD COUNT [id number] Mean Plt Volume 11.1 fL Unknown COMPLETE BLOOD COUNT [id number] Neut Auto 32.7 % 9 Unknown COMPLETE BLOOD COUNT [id number] Lymph Auto 39.6 % 08/29/20 19 Unknown COMPLETE BLOOD COUNT [id number] [place]ake Auto 24.4 % 9 Unknown COMPLETE BLOOD COUNT [id number] RDW 14.0 % 9 Unknown COMPLETE BLOOD COUNT [id number] Eos Auto 2.0 % 9 Unknown COMPLETE BLOOD COUNT [id number] Baso Auto 1.3 % 9 Unknown COMPLETE BLOOD COUNT [id number] Neutrophil Abs 0.98 10e9/L Unknown COMPLETE BLOOD COUNT [id number] Lymphocyte Abs 1.19 10e9/L Unknown COMPLETE BLOOD COUNT [id number] Monocyte Abs 0.73 10e9/L 08/02 Unknown COMPLETE BLOOD COUNT [id number] Eosinophil Abs 0.06 10e9/L Unknown COMPLETE BLOOD COUNT 7787804 RDW-SD 54.5 fL 9 Unknown COMPLETE BLOOD COUNT [id number] Basophil Abs 0.04 10e9/L 08/02 Unknown NCDF 8784417 Neutrophil 37 % 05/24/2019 Unknown NCDF 4906645 BAND 5 % 05/24/2019 Unknown NCDF 6294093 Lymphocyte 34 % 05/24/2019 Unknown NCDF 8340384 Monocyte 19 % 05/24/2019 Unknown NCDF 8444957 Eosinophil 3 % 05/24/2019 Unknown NCDF 7705919 Basophil 2 % 05/24/2019 Unknown NCDF 4030149 Platelet Est Adequate 05/24/2019 Unknow n VITAMIN B 12 67046 VITAMIN B12 788 pg/mL 05/23/2019 Unkn own IRON 13143 Iron 152 ug/dL 05/23/2019 Unknown COMPLETE BLOOD COUNT [id number] WBC 3.9 10e9/L 05/23/20 19 Unknown COMPLETE BLOOD COUNT [id number] RBC 3.61 10e12/L 2018 Unknown COMPLETE BLOOD COUNT [id number] HEMOGLOBIN 12.5 g/dL 05/23/20 19 Unknown COMPLETE BLOOD COUNT [id number] HEMATOCRIT 38.2 % 05/23/20 19 Unknown COMPLETE BLOOD COUNT [id number] MCV 105.8 fL 9 Unknown COMPLETE BLOOD COUNT [id number] MCH 34.6 pg 9 Unknown COMPLETE BLOOD COUNT [id number] MCHC 32.7 g/dL 9 Unknown COMPLETE BLOOD COUNT [id number] PLATELET COUNT 157 10e9/L Unknown COMPLETE BLOOD COUNT 7577056 Mean Plt Volume 10.4 fL Unknown COMPLETE BLOOD COUNT 8660941 Neut Auto 35.6 % 9 Unknown COMPLETE BLOOD COUNT [id number] Lymph Auto 33.2 % 05/23/20 19 Unknown COMPLETE BLOOD COUNT [id number] Leake Auto 26.6 % 9 Unknown COMPLETE BLOOD COUNT 5811742 RDW 14.1 % 9 Unknown COMPLETE BLOOD COUNT [id number] Eos Auto 1.8 % 9 Unknown COMPLETE BLOOD COUNT 7039410 Baso Auto 2.8 % 9 Unknown COMPLETE BLOOD COUNT [id number] Neutrophil Abs 1.39 10e9/L Unknown COMPLETE BLOOD COUNT [id number] Lymphocyte Abs 1.29 10e9/L Unknown COMPLETE BLOOD COUNT [id number] Monocyte Abs 1.04 10e9/L 05/02 Unknown COMPLETE BLOOD COUNT [id number] Eosinophil Abs 0.07 10e9/L Unknown COMPLETE BLOOD COUNT [id number] Basophil Abs 0.11 10e9/L 05/02 Unknown COMPLETE BLOOD COUNT [id number] RDW-SD 53.5 fL 9 Unknown COMPLETE BLOOD COUNT [id number] WBC 5.4 10e9/L 06/11/20 18 Unknown COMPLETE BLOOD COUNT [id number] RBC 4.05 10e12/L 2017 Unknown COMPLETE BLOOD COUNT [id number] HEMOGLOBIN 13.5 g/dL 06/11/20 18 Unknown COMPLETE BLOOD COUNT [id number] HEMATOCRIT 41.3 % 06/11/20 18 Unknown COMPLETE BLOOD COUNT [id number] MCV 102.0 fL 8 Unknown COMPLETE BLOOD COUNT [id number] MCH 33.3 pg 8 Unknown COMPLETE BLOOD COUNT 8554483 MCHC 32.7 g/dL 8 Unknown COMPLETE BLOOD COUNT [id number] PLATELET COUNT 210 10e9/L 07/2018 Unknown COMPLETE BLOOD COUNT [id number] Mean Plt Volume 10.0 fL 07/2018 Unknown COMPLETE BLOOD COUNT 8558806 Neut Auto 35.2 % 8 Unknown COMPLETE BLOOD COUNT [id number] Lymph Auto 29.2 % 06/11/20 18 Unknown COMPLETE BLOOD COUNT [id number] Leake Auto 17.3 % 8 Unknown COMPLETE BLOOD COUNT 0829822 Eos Auto 16.4 % 8 Unknown COMPLETE BLOOD COUNT 8309153 RDW 13.8 % 8 Unknown COMPLETE BLOOD COUNT 3013707 Baso Auto 1.9 % 8 Unknown COMPLETE BLOOD COUNT [id number] Neutrophil Abs 1.90 10e9/L Unknown COMPLETE BLOOD COUNT [id number] Lymphocyte Abs 1.58 10e9/L Unknown COMPLETE BLOOD COUNT [id number] Monocyte Abs 0.93 10e9/L 05/31 Unknown COMPLETE BLOOD COUNT [id number] Eosinophil Abs 0.89 10e9/L Unknown COMPLETE BLOOD COUNT [id number] RDW-SD 50.2 fL 8 Unknown COMPLETE BLOOD COUNT [id number] Basophil Abs 0.10 10e9/L 05/31 Unknown GFR CALC [id number] GFR Non Afr Amr >60 mL/min 06/11/2018 Un known GFR CALC [id number] GFR Afr Amr >60 mL/min 06/11/2018 Unknow n COMPREHENSIVE METABOLIC 14647 AST 15 U/L 2017 Unknown COMPREHENSIVE METABOLIC 55802 ALT 18 U/L 2017 Unknown COMPREHENSIVE METABOLIC 43197 BUN 11 mg/dL 2017 Unknown COMPREHENSIVE METABOLIC 47445 ALBUMIN 3.7 g/dL 2017 Unknown COMPREHENSIVE METABOLIC 16099 CHLORIDE 102 mmol/L 06/11 Unknown COMPREHENSIVE METABOLIC 42628 Bili Total 0.6 mg/dL 06/11 Unknown COMPREHENSIVE METABOLIC 27712 ALK PHOS 98 U/L 2017 Unknown COMPREHENSIVE METABOLIC 32043 SODIUM 139 mmol/L 06/11 Unknown COMPREHENSIVE METABOLIC 57848 CREATININE 0.89 mg/dL 05/31 Unknown COMPREHENSIVE METABOLIC 75966 CALCIUM 8.7 mg/dL 2017 Unknown COMPREHENSIVE METABOLIC 05153 POTASSIUM 3.9 mmol/L 06/11 Unknown COMPREHENSIVE METABOLIC 06581 Total Protein 6.7 g/dL Unknown COMPREHENSIVE METABOLIC 75703 Glucose 112 mg/dL 2017 Unknown COMPREHENSIVE METABOLIC 09184 Bicarbonate 35 mmol/L 05/31 Unknown COMPREHENSIVE METABOLIC 88789 AGAP 2 mmol/L 2017 Unknown COMPLETE BLOOD COUNT [id number] WBC 7.4 10e9/L 10/17/19 16 Unknown COMPLETE BLOOD COUNT [id number] RBC 4.42 10e12/L 2015 Unknown COMPLETE BLOOD COUNT [id number] HGB 13.8 g/dL 6 Unknown COMPLETE BLOOD COUNT [id number] HCT DET 40.8 % 6 Unknown COMPLETE BLOOD COUNT [id number] MCV 92.3 fL 6 Unknown COMPLETE BLOOD COUNT [id number] MCH 31.2 pg 6 Unknown COMPLETE BLOOD COUNT [id number] MCHC 33.8 g/dL 6 Unknown COMPLETE BLOOD COUNT [id number] PLT 247 10e9/L 10/17/19 16 Unknown COMPLETE BLOOD COUNT [id number] MPV 9.3 fL 6 Unknown COMPLETE BLOOD COUNT [id number] YANNICK % 63.0 % 6 Unknown COMPLETE BLOOD COUNT [id number] LY % 19.2 % 6 Unknown COMPLETE BLOOD COUNT [id number] MON % 15.8 % 6 Unknown COMPLETE BLOOD COUNT [id number] EOS % 1.1 % 6 Unknown COMPLETE BLOOD COUNT [id number] BASO % 0.9 % 6 Unknown COMPLETE BLOOD COUNT [id number] RDW 13.7 % 6 Unknown COMPLETE BLOOD COUNT [id number] ABS YANNICK 4.66 10e9/L 016 Unknown COMPLETE BLOOD COUNT [id number] ABS LYMPH 1.42 10e9/L 016 Unknown COMPLETE BLOOD COUNT [id number] ABS MONO 1.17 10e9/L 016 Unknown COMPLETE BLOOD COUNT [id number] ABS EOS 0.08 10e9/L 016 Unknown COMPLETE BLOOD COUNT [id number] ABS BASO 0.07 10e9/L 016 Unknown COMPLETE BLOOD COUNT [id number] RDW-SD 44.9 fL 6 Unknown GFR CALC [id number] GFR AA 46.0L ML/MIN 10/17/2015 Unknow n GFR CALC [id number] GFR NON-AA 37.0L ML/MIN 10/17/2015 Unkno wn C-REACTIVE PROTEIN (CRP) QUANT 05207 CRP 0.5 MG/DL 10/17/2015 Unknown COMPREHENSIVE METABOLIC 25983 AST 18 U/L 2015 Unknown COMPREHENSIVE METABOLIC 30689 ALT 27 U/L 2015 Unknown COMPREHENSIVE METABOLIC 91553 BUN 38 MG/DL 2015 Unknown COMPREHENSIVE METABOLIC 49303 ALBUMIN 3.7 GM/DL 2015 Unknown COMPREHENSIVE METABOLIC 74707 CHLORIDE 100 MMOL/L 10/17 Unknown COMPREHENSIVE METABOLIC 53924 BILI TOT 0.8 MG/DL 2015 Unknown COMPREHENSIVE METABOLIC 08375 ALK PHOS 70 U/L 2015 Unknown COMPREHENSIVE METABOLIC 21781 SODIUM 137 MMOL/L 10/17 Unknown COMPREHENSIVE METABOLIC 11742 CREATININE 1.80 MG/DL 10/01 Unknown COMPREHENSIVE METABOLIC 49507 CALCIUM 8.9 MG/DL 2015 Unknown COMPREHENSIVE METABOLIC 11856 POTASSIUM 5.1 MMOL/L 10/17 Unknown COMPREHENSIVE METABOLIC 42171 PROT TOT 6.6 GM/DL 2015 Unknown COMPREHENSIVE METABOLIC 31307 Glucose 99 MG/DL 2015 Unknown COMPREHENSIVE METABOLIC 71181 BICARB 22 MMOL/L 2015 Unknown COMPREHENSIVE METABOLIC 74930 ANION GAP 15 MMOL/L 2015 Unknown Procedures Procedure Codes Date ROUTINE VENIPUNCTURE CPT-4: 98091 10/10/2019 COMPLETE CBC W/AUTO DIFF WBC CPT-4: 42768 10/10/2019 THER/PROPH/DIAG INJ SC/IM CPT-4: 77290 09/20/2019 TRIAMCINOLONE ACET INJ NOS CPT-4: J3301 09/20/2019 CEFTRIAXONE SODIUM INJECTION CPT-4: J0696 09/20/2019 THER/PROPH/DIAG INJ SC/IM CPT-4: 53489 09/20/2019 THER/PROPH/DIAG INJ SC/IM CPT-4: 57549 09/19/2019 METHYLPREDNISOLONE INJECTION CPT-4: J2930 09/19/2019 CEFTRIAXONE SODIUM INJECTION CPT-4: J0696 09/19/2019 THER/PROPH/DIAG INJ SC/IM CPT-4: 31088 09/19/2019 ROUTINE VENIPUNCTURE CPT-4: 90735 08/29/2019 COMPLETE CBC W/AUTO DIFF WBC CPT-4: 56761 08/29/2019 VITAMIN B-12 CPT-4: 71655 08/29/2019 THER/PROPH/DIAG INJ SC/IM CPT-4: 67009 08/29/2019 THER/PROPH/DIAG INJ SC/IM CPT-4: 46311 08/15/2019 THER/PROPH/DIAG INJ SC/IM CPT-4: 29948 08/01/2019 THER/PROPH/DIAG INJ SC/IM CPT-4: 85243 07/18/2019 THER/PROPH/DIAG INJ SC/IM CPT-4: 53896 07/04/2019 THER/PROPH/DIAG INJ SC/IM CPT-4: 83408 06/20/2019 FLU VACC PRSV FREE INC ANTIG 65 AND OLDER CPT-4: 41424 06/06/2019 THER/PROPH/DIAG INJ SC/IM CPT-4: 11372 06/06/2019 FLU VACC PRSV FREE INC ANTIG 65 AND OLDER CPT-4: 14131 06/06/2019 PNEUMOCOCCAL VACC 23 GAIL IM CPT-4: 24547 06/06/2019 ADMIN INFLUENZA VIRUS VAC CPT-4: G0008 06/06/2019 ADMIN PNEUMOCOCCAL VACCINE CPT-4: G0009 06/06/2019 ROUTINE VENIPUNCTURE CPT-4: 21812 05/23/2019 COMPLETE CBC W/AUTO DIFF WBC CPT-4: 39840 05/23/2019 ASSAY OF IRON CPT-4: 45961 05/23/2019 VITAMIN B-12 CPT-4: 13399 05/23/2019 THER/PROPH/DIAG INJ SC/IM CPT-4: 43700 05/18/2019 THER/PROPH/DIAG INJ SC/IM CPT-4: 55881 05/04/2019 THER/PROPH/DIAG INJ SC/IM CPT-4: 63078 04/27/2019 THER/PROPH/DIAG INJ SC/IM CPT-4: 09652 04/20/2019 THER/PROPH/DIAG INJ SC/IM CPT-4: 73208 04/06/2019 THER/PROPH/DIAG INJ SC/IM CPT-4: 05914 03/23/2019 VITAMIN B12 INJECTION CPT-4: J3420 03/23/2019 THER/PROPH/DIAG INJ SC/IM CPT-4: 41347 03/14/2019 THER/PROPH/DIAG INJ SC/IM CPT-4: 25281 03/07/2019 THER/PROPH/DIAG INJ SC/IM CPT-4: 63313 02/24/2019 THER/PROPH/DIAG INJ SC/IM CPT-4: 86352 02/16/2019 CEFTRIAXONE SODIUM INJECTION CPT-4: J0696 10/29/2018 THER/PROPH/DIAG INJ SC/IM CPT-4: 97097 10/29/2018 THER/PROPH/DIAG INJ SC/IM CPT-4: 19325 10/26/2018 METHYLPREDNISOLONE INJECTION CPT-4: J2930 10/26/2018 THER/PROPH/DIAG INJ SC/IM CPT-4: 43795 06/23/2018 METHYLPREDNISOLONE INJECTION CPT-4: J2930 06/23/2018 COMPLETE CBC W/AUTO DIFF WBC CPT-4: 28599 06/11/2018 COMPREHEN METABOLIC PANEL CPT-4: 20490 06/11/2018 CEFTRIAXONE SODIUM INJECTION CPT-4: J0696 05/18/2018 THER/PROPH/DIAG INJ SC/IM CPT-4: 31073 05/18/2018 CEFTRIAXONE SODIUM INJECTION CPT-4: J0696 05/17/2018 THER/PROPH/DIAG INJ SC/IM CPT-4: 07177 05/17/2018 THER/PROPH/DIAG INJ SC/IM CPT-4: 98514 05/17/2018 METHYLPREDNISOLONE INJECTION CPT-4: J2930 05/17/2018 FLU VACC PRSV FREE INC ANTIG 65 AND OLDER CPT-4: 45995 05/12/2018 PNEUMOCOCCAL VACC 13 GAIL IM CPT-4: 00628 05/12/2018 ADMIN INFLUENZA VIRUS VAC CPT-4: G0008 05/12/2018 ADMIN PNEUMOCOCCAL VACCINE CPT-4: G0009 05/12/2018 FLU VACC PRSV FREE INC ANTIG 65 AND OLDER CPT-4: 89729 06/17/2017 ADMIN INFLUENZA VIRUS VAC CPT-4: G0008 06/17/2017 URINALYSIS NONAUTO W/O SCOPE CPT-4: 83786 05/21/2017 URINE CULTURE/ COLONY COUNT CPT-4: 43596 05/21/2017 CEFTRIAXONE SODIUM INJECTION CPT-4: J0696 12/16/2016 THER/PROPH/DIAG INJ SC/IM CPT-4: 39472 12/16/2016 THER/PROPH/DIAG INJ SC/IM CPT-4: 48683 12/16/2016 METHYLPREDNISOLONE INJECTION CPT-4: J2930 12/16/2016 CEFTRIAXONE SODIUM INJECTION CPT-4: J0696 12/15/2016 THER/PROPH/DIAG INJ SC/IM CPT-4: 96661 12/15/2016 THER/PROPH/DIAG INJ SC/IM CPT-4: 55972 12/15/2016 METHYLPREDNISOLONE INJECTION CPT-4: J2930 12/15/2016 THER/PROPH/DIAG INJ SC/IM CPT-4: 26982 12/10/2016 TRIAMCINOLONE ACET INJ NOS CPT-4: J3301 12/10/2016 DEXAMETHASONE SODIUM PHOS CPT-4: J1100 12/10/2016 FLU VACC PRSV FREE INC ANTIG 65 AND OLDER CPT-4: 11420 07/21/2016 ADMIN INFLUENZA VIRUS VAC CPT-4: G0008 07/21/2016 ROUTINE VENIPUNCTURE CPT-4: 41893 10/17/2015 COMPLETE CBC W/AUTO DIFF WBC CPT-4: 12523 10/17/2015 COMPREHEN METABOLIC PANEL CPT-4: 01085 10/17/2015 C-REACTIVE PROTEIN CPT-4: 35864 10/17/2015 FLU VACC PRSV FREE INC ANTIG 65 AND OLDER CPT-4: 43894 06/25/2015 ADMIN INFLUENZA VIRUS VAC CPT-4: G0008 06/25/2015 PRESCRIP TRANSMIT VIA ERX SY CPT-4: G8553 06/25/2015 PRESCRIP TRANSMIT VIA ERX SY CPT-4: G8553 04/11/2015 URINALYSIS NONAUTO W/O SCOPE CPT-4: 61086 02/08/2015 PRESCRIP TRANSMIT VIA ERX SY CPT-4: [...] 1: 148/74 Code: 8480-6 BMI: 35.2 Code: 04204-8 Heart Rate 1: 64 bpm Height: 5'10" [...] 1: 126/70 Code: 8480-6 BMI: 34.9 Code: 16800-0 Heart Rate 1: 64 bpm Height: 5'10" Respiratory Rate: 20 bpm SpO2: 96% Tempera ture: 36.8 (C) / 98.3 (F) Weight: 243 lbs 07/20/2017 Blood Pressure 1: 136/78 Code: 8480-6 Heart Rate 1: 74 bpm Height: 5'10" Respiratory Rate: 22 bpm SpO2: 98% Temperature: 36.2 (C) / 97.1 (F) Weight: 07/07/2017 Blood Pressure 1: 136/78 Code: 8480-6 BMI: 35.3 Code: 52180-5 Heart Rate 1: 72 bpm Height: 5'10" Respiratory Rate: 20 bpm SpO2: 95% Tempera ture: 36.7 (C) / 98.1 (F) Weight: 246 lbs 06/17/2017 Blood Pressure 1: 128/68 Code: 8480-6 BMI: 34.7 Code: 37585-8 Heart Rate 1: 80 bpm Height: 5'10" Respiratory Rate: 22 bpm SpO2: 94% Tempera ture: 36.7 (C) / 98.0 (F) Weight: 242 lbs 05/19/2017 Blood Pressure 1: 112/68 Code: 8480-6 BMI: 34.9 Code: 08320-8 Heart Rate 1: 84 bpm Height: 5'10" Respiratory Rate: 18 bpm SpO2: 97% Tempera ture: 36.4 (C) / 97.6 (F) Weight: 243 lbs 02/24/2017 Blood Pressure 1: 122/62 Code: 8480-6 Heart Rate 1: 66 bpm Height: 5'10" Respiratory Rate: 18 bpm SpO2: 95% Temperature: 36 .6 (C) / 97.9 (F) 01/01/2017 Blood Pressure 1: 126/58 Code: 8480-6 BMI: 34.9 Code: 39265-6 Heart Rate 1: 72 bpm Height: 5'10" [...] 1: 124/68 Code: 8480-6 BMI: 35.4 Code: 10301-3 Heart Rate 1: 84 bpm Height: 5'10" Respiratory Rate: 20 bpm SpO2: 94% Tempera ture: 37.0 (C) / 98.6 (F) Weight: 247 lbs 05/29/2016 Blood Pressure 1: 112/72 Code: 8480-6 BMI: 36.0 Code: 36822-7 Heart Rate 1: 108 bpm Height: 5'10" Respiratory Rate: 24 bpm SpO2: 91% Tempera ture: 36.4 (C) / 97.6 (F) Weight: 251 lbs 03/18/2016 Blood Pressure 1: 122/64 Code: 8480-6 BMI: 35.6 Code: 95326-7 Heart Rate 1: 64 bpm Height: 5'10" [...] 1: 134/78 Code: 8480-6 BMI: 35.9 Code: 98930-3 Heart Rate 1: 72 bpm Height: 5'10" Respiratory Rate: 20 bpm Temperature: 36 .9 (C) / 98.4 (F) Weight: 250 lbs 08/30/2015 Blood Pressure 1: 128/62 Code: 8480-6 Heart Rate 1: 78 bpm Respiratory Rate: 20 bpm SpO2: 96% Temperature: 35.9 (C) / 96.6 (F) We ight: 252 lbs 06/25/2015 Blood Pressure 1: 126/70 Code: 8480-6 BMI: 36.9 Code: 25058-5 Heart Rate 1: 64 bpm Height: 5'10" Respiratory Rate: 20 bpm Temperature: 36 .6 (C) / 97.9 (F) Weight: 257 lbs 04/25/2015 Blood Pressure 1: 130/80 Code: 8480-6 BMI: 37.3 Code: 70460-0 Heart Rate 1: 64 bpm Height: 5'10" Respiratory Rate: 22 bpm Temperature: 36 .4 (C) / 97.6 (F) Weight: 260 lbs 04/11/2015 Blood Pressure 1: 148/70 Code: 8480-6 BMI: 37.3 Code: 04408-3 Heart Rate 1: 66 bpm Height: 5'10" Respiratory Rate: 18 bpm Temperature: 36 .5 (C) / 97.7 (F) Weight: 260 lbs 02/27/2015 Blood Pressure 1: 122/58 Code: 8480-6 BMI: 36.0 Code: 24655-5 Heart Rate 1: 80 bpm Height: 5'10" Respiratory Rate: 20 bpm Temperature: 36 .7 (C) / 98.1 (F) Weight: 251 lbs 02/08/2015 Blood Pressure 1: 140/68 Code: 8480-6 BMI: 36.7 Code: 15103-3 Heart Rate 1: 64 bpm Height: 5'10" Respiratory Rate: 20 bpm Temperature: 36 .9 (C) / 98.5 (F) Weight: 256 lbs 01/18/2015 Blood Pressure 1: 136/68 Code: 8480-6 BMI: 33.0 Code: 53503-1 Heart Rate 1: 60 bpm Height: 5'10" Respiratory Rate: 20 bpm Temperature: 36 .7 (C) / 98.0 (F) Weight: 230 lbs Functional Status No Functional Status data Reason For Visit Reason For Visit Effective Dates Notes anxiety 01/04/2020 lab draw 10/10/2019 follow up 10/10/2019 pt [...] Encounters Encounter Performer Location Codes Date () OFFICE/OUTPATIENT VISIT EST Diagnosis: Chronic depressive disorder[ICD10: F32.9] Haylee Piper [facility] CPT-4: 32205 01/04/2020 ([id number]) NURSE/OUTPATIENT VISIT EST Diagnosis: Thrombocytopenia[ICD10: D69.6] Haylee PIPER DO [facility] CPT-4: 16028 10/10/2019 ([id number]) NO CHARGE Diagnosis: Pancytopenia[ICD10: D61.818] Haylee PIPER DO [facility] CPT-4: 51409 10/10/2019 ([id number]) OFFICE/OUTPATIENT VISIT EST Diagnosis: Chronic obstructive pulmonary disease, unspecified[ICD10: J44.9] Diagnosis: Pancytopenia[ICD10: D61.818] Haylee PIPER DO [facility] CPT-4: 01251 09/29/2019 ([id number]) NO CHARGE Diagnosis: Chronic obstructive pulmonary disease with (acute) exacerbation[ICD10: J44.1] Haylee PIPER DO [facility] CPT- 4: 09698 09/21/2019 ([id number]) OFFICE/OUTPATIENT VISIT EST Diagnosis: Chronic obstructive pulmonary disease with acute lower respiratory infection[ICD10: J44.0] Diagnosis: Chronic obstructive pulmonary disease with (acute) exacerbation[ICD10: J44.1] Haylee PIPER DO [facility] CPT- 4: 18393 09/20/2019 ([id number]) OFFICE/OUTPATIENT VISIT EST Diagnosis: COPD with lower respiratory infection[ICD10: J44.0] Diagnosis: COPD with exacerbation[ICD10: J44.1] Haylee PIPER [facility] CPT-4: 56286 09/19/2019 ([id number]) OFFICE/OUTPATIENT VISIT EST Diagnosis: Other fatigue[ICD10: R53.83] Diagnosis: Pancytopenia[ICD10: D61.818] Diagnosis: Other intervertebral disc degeneration, 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] Haylee PIPER [facility] CPT-4: 19338 09/05/2019 ([id number]) OFFICE/OUTPATIENT VISIT EST Diagnosis: Vitamin B12 deficiency anemia, unspecified[ICD10: D51.9] Diagnosis: Other fatigue[ICD10: R53.83] Diagnosis: Unsteadiness[ICD10: R26.81] Haylee ESCOBAR [facility] CPT-4: 11949 08/29/2019 ([id number]) NURSE/OUTPATIENT VISIT EST Diagnosis: Vitamin B12 deficiency anemia, unspecified[ICD10: D51.9] Haylee PIPER DO [facility] CPT-4: 32245 08/15/2019 ([id number]) NURSE/OUTPATIENT VISIT EST Diagnosis: Vitamin B12 deficiency anemia, unspecified[ICD10: D51.9] Haylee PIPER [facility] CPT-4: 41630 08/01/2019 ([id number]) NURSE/OUTPATIENT VISIT EST Diagnosis: Vitamin B12 deficiency anemia, unspecified[ICD10: D51.9] Haylee PIPER DO [facility] CPT-4: 54827 07/18/2019 ([id number]) NURSE/OUTPATIENT VISIT EST Diagnosis: Vitamin B12 deficiency anemia, unspecified[ICD10: D51.9] Haylee PIPER DO [facility] CPT-4: 46273 07/04/2019 ([id number]) NURSE/OUTPATIENT VISIT EST Diagnosis: Vitamin B12 deficiency anemia, unspecified[ICD10: D51.9] Haylee PIPER DO [facility] CPT-4: 12688 06/20/2019 ([id number]) NURSE/OUTPATIENT VISIT EST Diagnosis: Vitamin B12 deficiency anemia, unspecified[ICD10: D51.9] Diagnosis: FLU VACCINE[ICD10: Z23] Diagnosis: PNEUMOCOCCAL VACCINE[ICD10: Z23] Haylee PIPER DO [facility] CPT-4: 51727 06/06/2019 ([id number]) OFFICE/OUTPATIENT VISIT EST Diagnosis: Other fatigue[ICD10: R53.83] Diagnosis: B12 deficiency[ICD10: E53.8] Diagnosis: Iron deficiency anemia[ICD10: D50.9] Haylee PIPER DO [facility] CPT-4: 30387 05/23/2019 ([id number]) NURSE/OUTPATIENT VISIT EST Diagnosis: Vitamin B12 deficiency anemia, unspecified[ICD10: D51.9] Haylee PIPER DO [facility] CPT-4: 53929 05/18/2019 ([id number]) NURSE/OUTPATIENT VISIT EST Diagnosis: Vitamin B12 deficiency anemia, unspecified[ICD10: D51.9] Haylee PIPER DO [facility] CPT-4: 25767 05/04/2019 ([id number]) NURSE/OUTPATIENT VISIT EST Diagnosis: Vitamin B12 deficiency anemia, unspecified[ICD10: D51.9] Haylee PIPER DO [facility] CPT-4: 18980 04/27/2019 ([id number]) NURSE/OUTPATIENT VISIT EST Diagnosis: Vitamin B12 deficiency anemia, unspecified[ICD10: D51.9] Haylee PIPER DO [facility] CPT-4: 55534 04/20/2019 ([id number]) NURSE/OUTPATIENT VISIT EST Diagnosis: Vitamin B12 deficiency anemia, unspecified[ICD10: D51.9] Haylee PIPER DO [facility] CPT-4: 83145 04/06/2019 ([id number]) NURSE/OUTPATIENT VISIT EST Diagnosis: Vitamin B12 deficiency anemia, unspecified[ICD10: D51.9] Haylee PIPER DO [facility] CPT-4: 56019 03/23/2019 ([id number]) OFFICE/OUTPATIENT VISIT EST Diagnosis: Other intervertebral disc degeneration, 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] Diagnosis: Vitamin B12 deficiency anemia, unspecified[ICD10: D51.9] Diagnosis: Vitamin D deficiency, unspecified[ICD10: E55.9] Haylee PIPER DO [facility] CPT-4: 43272 03/17/2019 ([id number]) NURSE/OUTPATIENT VISIT EST Diagnosis: Vitamin B12 deficiency anemia, unspecified[ICD10: D51.9] Haylee PIPER DO [facility] CPT-4: 16340 03/14/2019 ([id number]) NURSE/OUTPATIENT VISIT EST Diagnosis: Vitamin B12 deficiency anemia, unspecified[ICD10: D51.9] Haylee PIPER DO [facility] CPT-4: 54789 03/07/2019 ([id number]) NURSE/OUTPATIENT VISIT EST Diagnosis: Vitamin B12 deficiency anemia, unspecified[ICD10: D51.9] Haylee PIPER DO [facility] CPT-4: 71936 02/24/2019 ([id number]) NURSE/OUTPATIENT VISIT EST Diagnosis: Vitamin B12 deficiency anemia, unspecified[ICD10: D51.9] Haylee PIPER DO [facility] CPT-4: 65567 02/16/2019 ([id number]) OFFICE/OUTPATIENT VISIT EST Diagnosis: Other fatigue[ICD10: R53.83] Diagnosis: Chronic obstructive pulmonary disease, unspecified[ICD10: J44.9] Diagnosis: Other spondylosis with radiculopathy, 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] Diagnosis: Vitamin D deficiency, unspecified[ICD10: E55.9] Diagnosis: Hyperglycemia, unspecified[ICD10: R73.9] Haylee PIPER [facility] CPT-4: 70806 02/14/2019 ([id number]) OFFICE/OUTPATIENT VISIT EST Diagnosis: Chronic obstructive pulmonary disease, unspecified[ICD10: J44.9] Diagnosis: Hypoxemia[ICD10: R09.02] Haylee MATHEWS [facility] CPT-4: 34414 11/11/2018 ([id number]) OFFICE/OUTPATIENT VISIT EST Diagnosis: Acute bronchitis, unspecified[ICD10: J20.9] Diagnosis: Other specified respiratory disorders[ICD10: J98.8] Diagnosis: Chronic obstructive pulmonary disease with (acute) exacerbation[ICD10: J44.1] Chula PIPER [facility] CPT- 4: 67927 10/29/2018 OFFICE/OUTPATIENT VISIT EST Diagnosis: Acute bronchitis due to other specified organisms[ICD10: J20.8] Diagnosis: Chronic obstructive pulmonary disease, unspecified[ICD10: J44.9] Chula PIPER [facility] CPT-4: 72446 10/26/2018 OFFICE/OUTPATIENT VISIT EST Diagnosis: Cervicalgia[ICD10: M54.2] Diagnosis: Other muscle spasm[ICD10: M62.838] Diagnosis: Chronic obstructive pulmonary disease, unspecified[ICD10: J44.9] Haylee PIPER [facility] CPT-4: 56052 08/11/2018 ([id number]) NURSE/OUTPATIENT VISIT EST Diagnosis: Acute bronchitis, unspecified[ICD10: J20.9] Haylee PIPER [facility] CPT-4: 08907 06/23/2018 ([id number]) OFFICE/OUTPATIENT VISIT EST Diagnosis: Acute bronchitis, unspecified[ICD10: J20.9] Columba Curtis [facility] CPT-4: 60717 06/17/2018 ([id number]) OFFICE/OUTPATIENT VISIT EST Diagnosis: Acute gastritis without bleeding[ICD10: K29.00] Columba PIPER DO [facility] CPT-4: 06480 06/11/2018 ([id number]) OFFICE/OUTPATIENT VISIT EST Diagnosis: Acute bronchitis, unspecified[ICD10: J20.9] Columba PIPER DO [facility] CPT-4: 32373 05/18/2018 ([id number]) OFFICE/OUTPATIENT VISIT EST Diagnosis: Dizziness and giddiness[ICD10: R42] Diagnosis: Acute bronchitis, unspecified[ICD10: J20.9] Diagnosis: Chronic obstructive pulmonary disease with acute lower respiratory infection[ICD10: J44.0] Columba PIPER [facility] CPT-4: 52714 05/17/2018 ([id number]) OFFICE/OUTPATIENT VISIT EST Diagnosis: Primary insomnia[ICD10: F51.01] Diagnosis: Other fatigue[ICD10: R53.83] 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] Diagnosis: Other spondylosis with radiculopathy, 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] Diagnosis: PNEUMOCOCCAL VACCINE[ICD10: Z23] Diagnosis: FLU VACCINE[ICD10: Z23] Haylee MARKHAM [facility] CPT-4: 38446 05/12/2018 OFFICE/OUTPATIENT VISIT EST Diagnosis: Candidal stomatitis[ICD10: B37.0] Columba PIPER [facility] CPT-4: 50463 07/20/2017 ([id number]) OFFICE/OUTPATIENT VISIT EST Diagnosis: Candidal stomatitis[ICD10: B37.0] Haylee PIPER [facility] CPT-4: 59248 07/07/2017 ([id number]) OFFICE/OUTPATIENT VISIT EST Diagnosis: Localized edema[ICD10: R60.0] Diagnosis: Anemia, unspecified[ICD10: D64.9] Diagnosis: Disorder of kidney and ureter, unspecified[ICD10: N28.9] Diagnosis: FLU VACCINE[ICD10: Z23] Haylee MARKHAM [facility] CPT-4: 67987 06/17/2017 ([id number]) OFFICE/OUTPATIENT VISIT EST Diagnosis: Dysuria[ICD10: R30.0] Haylee PIPER DO [facility] CPT-4: 27262 05/21/2017 OFFICE/OUTPATIENT VISIT EST Diagnosis: Encounter for other specified special examinations[ICD10: Z01.89] Diagnosis: Disorder of kidney and ureter, unspecified[ICD10: N28.9] Diagnosis: Anemia, unspecified[ICD10: D64.9] Mayra Arguello [facility] CPT-4: 35615 05/19/2017 ([id number]) OFFICE/OUTPATIENT VISIT EST Diagnosis: URI, ACUTE[ICD10: J06.9] Haylee MATHEWS [facility] CPT-4: 03967 02/24/2017 ([id number]) OFFICE/OUTPATIENT VISIT EST Diagnosis: Hypotension, unspecified[ICD10: I95.9] Diagnosis: Bradycardia, unspecified[ICD10: R00.1] Haylee [facility] CPT-4: 43740 01/01/2017 ([id number]) NO CHARGE Diagnosis: Chronic obstructive pulmonary disease with (acute) exacerbation[ICD10: J44.1] Diagnosis: Pneumonia, unspecified organism[ICD10: J18.9] Susie Paniagua HYALEE PIPER [facility] CPT-4: 20438 12/22/2016 OFFICE/OUTPATIENT VISIT EST Diagnosis: Pneumonia, unspecified organism[ICD10: J18.9] Diagnosis: Chronic obstructive pulmonary disease with (acute) exacerbation[ICD10: J44.1] Haylee PIPER [facility] CPT- 4: 97511 12/17/2016 OFFICE/OUTPATIENT VISIT EST Diagnosis: Pneumonia, unspecified organism[ICD10: J18.9] Diagnosis: Mild intermittent asthma with (acute) exacerbation[ICD10: J45.21] Diagnosis: Chronic obstructive pulmonary disease with (acute) exacerbation[ICD10: J44.1] Haylee PIPER DO [facility] CPT- 4: 34245 12/16/2016 ([id number]) OFFICE/OUTPATIENT VISIT EST Diagnosis: Mild intermittent asthma with (acute) exacerbation[ICD10: J45.21] Diagnosis: Pneumonia, unspecified organism[ICD10: J18.9] Haylee PIPER DO [facility] CPT-4: 14047 12/15/2016 ([id number]) OFFICE/OUTPATIENT VISIT EST Diagnosis: Acute bronchitis, unspecified[ICD10: J20.9] Diagnosis: Unspecified asthma with (acute) exacerbation[ICD10: J45.901] Susie PIPER DO [facility] CPT-4: 23508 12/11/2016 ([id number]) OFFICE/OUTPATIENT VISIT EST Diagnosis: Acute bronchitis, unspecified[ICD10: J20.9] Diagnosis: Unspecified asthma with (acute) exacerbation[ICD10: J45.901] Susie PIPER [facility] CPT-4: 19053 12/10/2016 ([id number]) OFFICE/OUTPATIENT VISIT EST Diagnosis: Chronic obstructive pulmonary disease with (acute) exacerbation[ICD10: J44.1] Diagnosis: Other spondylosis with radiculopathy, 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] Diagnosis: Other intervertebral disc degeneration, 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] Diagnosis: FLU VACCINE[ICD10: Z23] Haylee MARKHAM [facility] CPT-4: 28685 07/21/2016 ([id number]) OFFICE/OUTPATIENT VISIT EST Diagnosis: Unspecified open wound of right forearm, initial encounter[ICD10: S51.801A] Haylee PIPER DO [facility] CPT-4: 69581 05/30/2016 ([id number]) OFFICE/OUTPATIENT VISIT EST Diagnosis: Unspecified open wound of right forearm, initial encounter[ICD10: S51.801A] Susie PIPER DO [facility] CPT-4: 11197 ([id number]) OFFICE/OUTPATIENT VISIT EST 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 GILND ER [facility] CPT-4: 05089 06/25/2015 OFFICE/OUTPATIENT VISIT EST Diagnosis: DEPRESSIVE DISORDER NEC[ICD9: 311] Diagnosis: INSOMNIA NOS[ICD9: 780.52] Kat Mast OR JOJO [facility] CPT-4: 15934 04/25/2015 OFFICE/OUTPATIENT VISIT EST Diagnosis: DEPRESSIVE DISORDER NEC[ICD9: 311] Kat CHUN Pro [facility] CPT-4: 63093 04/11/2015 ([id number]) OFFICE/OUTPATIENT VISIT EST Diagnosis: MALAISE AND FATIGUE[ICD9: 780.79] Diagnosis: Lumbar degenerative disc disease[ICD9: 722.52] Diagnosis: Leg weakness[ICD9: 729.89] Haylee KUMARI Pro URIBE [facility] CPT-4: 73736 02/27/2015 ([id number]) OFFICE/OUTPATIENT VISIT EST Diagnosis: Tremor[ICD9: 781.0] Diagnosis: Memory disturbance[ICD9: 780.93] Haylee KUMARI AlexisCristy NICOLASA [facility] CPT-4: 13789 02/08/2015 ([id number]) OFFICE/OUTPATIENT VISIT NEW Diagnosis: INSOMNIA NOS[ICD9: 780.52] Diagnosis: Lumbar degenerative disc disease[ICD9: 722.52] Diagnosis: Leg weakness[ICD9: 729.89] Diagnosis: DEPRESSIVE DISORDER NEC[ICD9: 311] Diagnosis: Coronary artery disease[ICD9: 414.00] Diagnosis: Peripheral vascular disease[ICD9: 443.9] Haylee KUMARI AlexisCristy NICOLASA [facility] CPT-4: 06270 01/18/2015 Plan of Care Planned Activity Notes Codes Status Date Visit Diagnosis Plan: Chronic depressive disorder Disc ussion: Change duloxetine to Wellbutrin XL in AM and Escitalopram 10mg q PM Follow Up: 4 weeks ICD-9 : 301.12 ICD-10 : F32.9 01/04/2020 Appointment: Haylee Piepr [facility]Ptel[facility] [address] [facility] [facility] 01/04/2020 Patient Education: escitalopram oxalate- [facility] [place] upon [id number] https://www.HealthCare.com/Piaochong.com/resources/getResource/61/32ynb20y-v427-6340-2v Completed 01/04/2020 Patient Education: Wellbutrin XL- [employer] Coupon [id number] https://www.P[employer]och[employer].com.9GAG/Piaochong.com/resources/getResource/61/x7w5t13s-41tj-8j0v-4e Completed 01/04/2020 Visit Diagnosis Plan: Pancytopenia Discussion: Discuss ed options including hospice Patient has decided that he wants to proceed with oncology/hematology eval. so will try to arrange for that this week Once again discussed bleeding risks and reasons to seek immediate care ICD-9 : 284.19 ICD-10 : D61.818 10/10/2019 Appointment: Haylee Piper WPtel: [address] [place], [place] [phone] [place] LAB 10/10/2019 Appointment: Haylee Piper WPtel: [address] [place], [place] [phone] [place] WORK IN 10/10/2019 Patient Education: Dexilant- [employer] Coupon [id number] https://www.HealthCare.com/sampleEpoq/resources/getResource/61/80798404-0ex3-6342-ix Completed 10/10/2019 Care Plan: COMPREHEN METABOLIC PANEL JAKUB NC : 14007-5 Pending 10/06/2019 Care Plan: COMPLETE CBC W/AUTO DIFF WBC LOINC : 70258-5 Pending 10/06/2019 Visit Diagnosis Plan: Chronic obstructive pulmonary di sease, unspecified Discussion: Restart Symbicort Start pulmonary rehab Use oxygen q HS and prn Use SVNs with abuterol at least QID ICD-9 : 496 ICD-10 : J44.9 09/29/2019 Visit Diagnosis Plan: Pancytopenia Discussion: CBC in 1 week Once again discussed hematology consult ICD-9 : 284.19 ICD-10 : D61.818 09/29/2019 Appointment: Haylee Piper WPtel: [address] [place], [place] [id number] Hospital Follow Up 09/29/2019 Visit Diagnosis Plan: Chronic obstructiv e pulmonary disease with (acute) exacerbation Discussion: Direct admit to hospital ICD-9 : 491.21 ICD-10 : J44.1 09/21/2019 Appointment: Haylee Piper WPtel: [address] [place], [place] [id number] [place] WORK IN 09/21/2019 Visit Diagnosis Plan: [...] : J44.1 09/20/2019 Appointment: Haylee Piper WPtel: [address] [place], [place] [phone] [place] WORK IN 09/20/2019 Visit Diagnosis Plan: COPD with exacerbation Discussio n: Solumedrol 125mg IM now SVNs with duoneb q4hrs Recheck tomorrow ICD-9 : 491.21 ICD-10 : J44.1 09/19/2019 Visit Diagnosis Plan: COPD with lower respiratory infe ction Discussion: Rocephin 1gm IM now Recheck tomorrow ICD-9 : 496 ICD-10 : J44.0 09/19/2019 Appointment: Haylee Piper WPtel: [address] [place], [place] [phone] FOLLOW UP 09/19/2019 Appointment: Haylee Piper WPtel: [address] [place], [place] [phone] 09/02/19---moved him to a cancellation spot on [...] : M51.36 09/05/2019 Appointment: Haylee Piper WPtel: [address] [place], [place] [phone] [place] FOLLOW UP 09/05/2019 Patient Education: Lyrica- [employer] Silvia [id number] https://www.HealthCare.com/sampleEpoq/resources/getResource/61/07u00782-p10u-73ja-71 a3-15382lb3ba1l.pdf Completed 09/05/2019 Visit Diagnosis Plan: Vitamin B12 [...] : R26.81 08/29/2019 Appointment: Haylee Piper WPtel: [address] [place], [place] [phone] [place] MEDICATION REVIEW 08/29/2019 Appointment: Haylee Piper WPtel: [address] [place], [place] [phone] [place] INJECTION 08/15/2019 Appointment: Haylee Piper WPtel: [address] [place], [place] [phone] [place] INJECTION 08/01/2019 Appointment: Haylee Piper WPtel: [address] [place], [place] [id number] [place] INJECTION 07/18/2019 Appointment: Haylee Piper WPtel: [address] [place], [place] [phone] [place] INJECTION 07/04/2019 Appointment: Haylee Piper WPtel: [address] [place] [phone] [place] INJECTION 06/20/2019 Appointment: Haylee Piper WPtel: [address] [place] [phone] [place] INJECTION 06/06/2019 Appointment: Haylee Piper WPtel: [address] [place] [phone] [place] 06/02/19 1340---SENT REFILL OF B12 TO [...] : E53.8 05/23/2019 Appointment: Haylee Piper WPtel: [address] [place] [phone] [place] FOLLOW UP 05/23/2019 Appointment: Haylee Piper WPtel: [address] [place], [place] [phone] [place] INJECTION 05/18/2019 Appointment: Haylee Piper WPtel: [address] [place] [phone] [place] INJECTION 05/04/2019 Appointment: Haylee Piper WPtel: [address] [place], [place] [id number] [place] INJECTION 04/27/2019 Appointment: Haylee Piper WPtel: [address] [place] [phone] [place] INJECTION 04/20/2019 Appointment: Haylee Piper WPtel: [address] [place] [phone] [place] INJECTION 04/06/2019 Appointment: Haylee Piper WPtel: [address] [place], [place] [phone] [place] INJECTION 03/23/2019 Visit Diagnosis Plan: Other [...] : D51.9 03/17/2019 Appointment: Haylee Piper WPtel: [address] [place] [phone] [place] lm FOLLOW UP 03/17/2019 Care Plan: Referral Order SNOMED-CT : [id number] Pending 03/17/2019 Appointment: Haylee Piper WPtel: [address] [place], [place] [phone] [place] INJECTION 03/14/2019 Appointment: Haylee Piper WPtel: [address] [place] [phone] [place] INJECTION 03/07/2019 Appointment: Haylee Piper WPtel: [address] [place], [place] [phone] [place] INJECTION 02/24/2019 Appointment: Haylee Piper WPtel: [address] [place] [phone] [place] INJECTION 02/16/2019 Visit Diagnosis Plan: Chronic [...] : R53.83 02/14/2019 Appointment: Haylee Piper WPtel: [address] [place] [address] US FOLLOW UP 02/14/2019 Visit Diagnosis Plan: [...] : J44.9 11/11/2018 Appointment: Haylee Piper WPtel: [address] [place] [address] US FOLLOW UP 11/11/2018 Visit Diagnosis Plan: [...] ICD-10 : J20.9 10/29/2018 Appointment: [facility] [address] ACUTE ILLNESS 10/29/2018 Patient Education: prednisone- [employer] Coupon [id number] https://www.Piaochong.com.com/samplemd/resources/getResource/61/809q181r-0k62-9uo7-88 Completed 10/29/2018 Visit Diagnosis Plan: Acute bronchitis [...] ICD-10 : J44.9 10/26/2018 Appointment: Chula Balbuena [address] [place], [place] [phone] [place] Schedule medicare annual wellness ACUTE ILLNESS 10/26/2018 Patient Education: doxycycline hyclate- [facility] [id number] https://www.Piaochong.com.9GAG/samplemd/resources/getResource/61/224512g9-e87s-0902-0a Completed 10/26/2018 Visit Diagnosis Plan: Chronic obstructive [...] : M54.2 08/11/2018 Appointment: Haylee Piper WPtel: [address] [place], [place] [phone] FOLLOW UP 08/11/2018 Appointment: Haylee Piper WPtel: [address] [place], [place] [phone] [place] INJECTION 06/23/2018 Patient Education: Patient Medication [...] : J20.9 06/17/2018 Appointment: Columba Curtis [address] [id number] ACUTE ILLNESS 06/17/2018 Patient Education: Patient Medication [...] ICD-10 : K29.00 06/11/2018 Appointment: Columba Curtis [address] [id number] ACUTE ILLNESS 06/11/2018 Patient Education: Patient Medication [...] ICD-10 : J20.9 05/18/2018 Appointment: Columba Curtis [address] [place], [place] [address] FOLLOW UP 05/18/2018 Patient Education: Patient Medication [...] ICD-10 : J20.9 05/17/2018 Appointment: Columba Curtis [address] [place], [place] [id number] ACUTE ILLNESS 05/17/2018 Patient Education: Patient Medication Summary Completed 05/17/2018 Visit Diagnosis Plan: Other fatigue Discussion: Check CBC, TSH, Free T4 ICD-9 : 780.79 ICD-10 : R53.83 05/12/2018 Visit Diagnosis Plan: 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 Discussion: Following with cardiology ICD-9 : 414.00 ICD-10 : I25.10 05/12/2018 Visit Diagnosis Plan: Other spondylosis with radiculop athy, lumbosacral region Discussion: Increaase lyrica to 150mg po BID Follow Up: 3 months ICD-9 : 722.52 ICD-10 : M47.27 05/12/2018 Visit Diagnosis Plan: Primary insomnia Discussion: [place] use hydrocodone 7.5/325mg po q HS routinely to see if helps sleep/pain High dose flu and prevnar 13 given ICD-9 : 780.52 ICD-10 : F51.01 05/12/2018 Appointment: Haylee Piper WPtel: [address] [place], [place] [phone] [place] FOLLOW UP 05/12/2018 Patient Education: Patient Medication Summary Completed 05/12/2018 Appointment: Haylee Piper WPtel: [facility] [place] CANCELED 09/21/2017 Visit Diagnosis Plan: Candidal [...] ICD-10 : B37.0 07/20/2017 Appointment: Columba Curtis [address] [place] [address] ACUTE ILLNESS 07/20/2017 Patient Education: Patient Medication [...] : B37.0 07/07/2017 Appointment: Haylee Piper WPtel: [address] [place] [address] FOLLOW UP 07/07/2017 Patient Education: Patient Medication Summary Completed 07/07/2017 Visit Diagnosis Plan: Localized edema Discussion: Star t lasix 20mg with potassium every other day and check Chem 7 in 2 weeks Flu shot given ICD-9 : 782.3 ICD-10 : R60.0 06/17/2017 Appointment: Haylee Piper WPtel: [address] [place] [address] FOLLOW UP 06/17/2017 Patient Education: Patient Medication Summary Completed 06/17/2017 Appointment: Haylee Piper WPtel: [address] [place] [address] UA 05/21/2017 Patient Education: Patient Medication Summary Completed 05/21/2017 Appointment: Haylee Piper WPtel: [address] [place] [address] [place] RESCHEDULED 05/20/2017 Visit Plan: Plan labs within the week CB C, CMP to check anemia, kidney status RTC in [address] Piper and for any worsening before that time. 05/19/2017 Appointment: Mayra Arguello WPtel: [facility] Hospital Follow Up 05/19/2017 Patient Education: Patient [...] Rest, Fluids... 02/24/2017 Appointment: Haylee Piper WPtel: [address] [place], [place] [phone] [employer] WORK IN 02/24/2017 Patient Education: Patient Medication [...] : R00.1 01/01/2017 Appointment: Haylee Piper WPtel: [address] [place], [place] [phone] Hospital Follow Up 01/01/2017 Patient Education: Patient Medication Summary Completed 01/01/2017 Visit Diagnosis Plan: Chronic obstructiv e pulmonary disease with (acute) exacerbation Discussion: Exam, vitals and patient fee ling better is reassuring Finish rxs previously given Continue nebs PRN Follow up PRN ICD-9 : 491.21 ICD-10 : J44.1 12/22/2016 Appointment: Susie Paniagua [address] [place], [place] [phone] FOLLOW UP 12/22/2016 Patient Education: Patient Medication [...] : J44.1 12/17/2016 Appointment: Haylee Piper WPtel: [facility] WORK IN 12/17/2016 Patient Education: Patient Medication [...] : J18.9 12/16/2016 Appointment: Haylee Piper WPtel: [facility] WORK IN 12/16/2016 Patient Education: Patient Medication [...] : J45.21 12/15/2016 Appointment: Haylee Piper WPtel: [phone] [facility] WORK IN 12/15/2016 Patient Education: Patient Medication [...] ICD-10 : J20.9 12/11/2016 Appointment: Susie Paniagua [address] [place], [place] [id number] FOLLOW UP 12/11/2016 Patient Education: Patient Medication Summary Completed 12/11/2016 Care Plan: CHEST X-RAY 2VW FRONTAL&LATL LOINC : 66973-4 Pending 12/11/2016 Care Plan: CBC Pending 12/11/2016 Visit Diagnosis Plan: Acute bronchitis, unspecified Di scussion: Injection in clinic today Continue proair Rxs as above Vicks, humidifier, etc Recheck tomorrow in clinic Will get CXR and labs if not starting to improve ICD-9 : 466.0 ICD-10 : J20.9 12/10/2016 Appointment: Susie Paniagua [address] [facility] ACUTE ILLNESS 12/10/2016 Patient Education: Patient Medication Summary Completed 12/10/2016 Visit Plan: Flu shot given Breo 100mcg 1 p BID for 2weeks with proair prn Notify if worsening or persists Fwup first part of October and sooner with needed 07/21/2016 Appointment: Haylee Piper WPtel: [address] [place], [place] [phone] 07/17 confirmed~sl FOLLOW UP 07/21/2016 Patient Education: Patient Medication Summary Completed 07/21/2016 Visit Plan: GAUTAM Paniagua---wear esteban ssing through weekend and then take off to leave open to air 05/30/2016 Appointment: Haylee Piper WPtel: [address] [place], [place] [phone] [place] Consult 05/30/2016 Patient Education: Patient Medication [...] after tdap updated 05/29/2016 [facility]ment[facility] [facility] 05/29/2016 Patient Education: Patient Medication Summary Completed 05/29/2016 Visit Plan: Continue current meds Patien t sees Dr. Eugene next week to see if would be surgical candidate 03/18/2016 Appointment: Haylee Piper WPtel: [address] [place], [place] [phone] 03/17 confirmed ~sl FOLLOW UP 03/18/2016 Patient Education: Patient Medication Summary Completed 03/18/2016 Visit Plan: Continue to hold atenolol an d monitor BP Take 1/2 of atenolol if BP greater then 150/90 8-10 oz of gatorade daily for next week and hydrate unless develops edema BP check 1week 10/18/2015 Appointment: Haylee Piper WPtel: [address] [place], [place] [phone] FOLLOW UP 10/18/2015 Patient Education: Patient Medication Summary Completed 10/18/2015 Visit Plan: Hold atenolol Hydrate, rest Refuses hospital but agrees will go to [facility] if worsens Recheck tomorrow Check CBC, CMP, CRP now 10/17/2015 Appointment: Haylee Piper WPtel: [address] [place], [place] [phone] WORK IN 10/17/2015 Patient Education: Patient Medication Summary Completed 10/17/2015 Visit Plan: Check CT scan of lungs November 18 Change proair to ventolin Fwup with Dr. Kilgore at end of month 10/10/2015 Appointment: Haylee Piper WPtel: [address] [place], [place] [phone] [place] 10/09 confirmed~lb FOLLOW UP 10/10/2015 Patient Education: Patient Medication Summary Completed 10/10/2015 Visit Plan: Obtain CT scan of chest resu lts Discussed that will likely need repeat scan pending reviewing above results but we will notify him once CT scan results reviewed 08/30/2015 Appointment: Haylee Piper WPtel: [address] [place], [place] [phone] 08/29 appt confirmed cn Hospital Follow Up 08/30 Patient Education: Patient Medication Summary Completed 08/30/2015 Visit Plan: Continue dexilant and add Pe pcid 40mg q HS Discussed may need EGD Update thyroid US Flu shot given 06/25/2015 Appointment: Haylee Piper WPtel: [address] [place], [place] [address] 06/22 confirmed ~sl FOLLOW UP 06/25/2015 Patient Education: Patient Medication Summary Completed 06/25/2015 Visit Plan: Continue Cymbalta at 120 mg PO daily Follow-up in 6 weeks Encouraged finding interest in a hobbie such as reading 04/25/2015 Appointment: Kat Carmona WPtel: [address] [place] [address] FOLLOW UP 04/25/2015 Patient Education: Patient Medication Summary Completed 04/25/2015 Visit Plan: Increase Cymbalta to 120 mg PO daily Follow-up in [address] Piper 04/11/2015 Appointment: Kat Carmona WPtel: [address] [place] [address] 04/09/2015 spoke with patient to make appointment FOLLOW UP 04/11/2015 Patient Education: Patient Medication Summary Completed 04/11/2015 Visit Plan: Continue Cymbalta, Neurontin Look out for tremor Discussed B12 supplement Given sample of Metanx 02/27/2015 Appointment: Haylee Piper WPtel: [address] [place], [place] [phone] 02/26 appt confirmed cn FOLLOW UP 02/28/20 [...] persist 02/08/2015 Appointment: [facility]el[facility] [facility] [facility] FO[facility] UP 02/08/2015 Patient Education: Patient Medication Summary Completed 02/08/2015 Appointment: Haylee Piper [facility]Ptel[facility] [address] [facility] [place] NEW PATIENT 01/18/2015 Patient Education: Patient Medication Summary Completed 01/18/2015 Patient Education: [facility] - [employer] - Cyjamiealta - 18+ - Dynamic Portal ID Completed 01/18/2015 Referral: Vernon Rajput WPtel: [facility] [address], [address] [place] Referral Appointment Requested Instructions Comment [...] Refuses hospital but agrees will go to [facility] if worsens Recheck tomorrow Check CBC, CMP, CRP now . Check CT scan of lungs March 21 Change proair to ventolin Fwup with Dr. [...]
--- OUTSIDE RECORDS SUMMARY | 2020-02-05 15:00 | XMS REPORT | CCD ---
Author Author Andrea Piper D.O. 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 PP Unavailable CCM Unavailable Summary Purpose Interface Exchange Insurance Providers Payer name Policy type / Coverage type Covered alliance party ID Effective Begin Date Effective End Date WPS MEDICARE PART B [place] Medicare Part B [id number] Unknown [employer] [place] Medicare Part B [id number] Unknown Family history Mother Diagnosis Age At Onset Breast cancer Unknown Brother Diagnosis Age At Onset Hypertension Unknown Grandfather Diagnosis Age At Onset Myocardial infarction Unknown Social History Social History Element Codes Description Effective Dates Tobacco history SNOMED CT: 014501073 Never smoker 05/18/2015 Marital status Unknown 01/18/2015 Number of children Unknown 3 01/18/2015 Employment Unknown Retired 01/18/[address]: 871817079 Never drinks alcohol 2014 Has the patient [...] R42 10/17/2015 Active 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 THIS REPLACES DULOXETINE 01/26/2020/2 03/2020 Inactive bupropion HCl XL 300 mg 24 hr tablet, extended release RxNor m: 032755 1 Tablet(s) Oral QAM 01/26/2020 01/25/2020 Inactive Zofran 8 mg tablet RxNorm: 711994 1 Tablet(s) Oral as needed fo r nausea 01/04/2020 No Stop Date Active escitalopram 10 mg tablet RxNorm: 710953 1 Tablet(s) Or al QPM for mood--replaces duloxetine 01/04/2020 01/25/2020 Inactive Wellbutrin XL 150 mg 24 hr tablet, extended release RxNorm: 799205 1 Tablet(s) Oral QAM replaces duloxetine 01/04/2020 01/25/2020 Inactive baclofen 20 mg tablet RxNorm: 149708 TAKE ONE TABLET BY MOUTH EVERY NIGHT AT BEDTIME FOR MUSCLE SPASMS AND TAKE ONE TABLET EVERY MORNING NEEDED 01/02/2020 No Stop Date Active Dexilant 60 mg capsule, delayed release RxNorm: 306912 TAKE ONE CAPSULE BY MOUTH DAILY 12/14/2019 No Stop Date Active Cymbalta 60 mg capsule,delayed release RxNorm: 533312 2 Capsule (s) Oral QD 10/24/2019 01/03/2020 Inactive Dexilant 60 mg capsule, delayed release RxNorm: 137658 TAKE ONE CAPSULE BY MOUTH DAILY 09/19/2019 2019 Inactive Lyrica 50 mg capsule RxNorm: 393825 2 Capsule(s) Oral Q PM for 3 days then 1 po q PM for 3 days then stop 09/05/2019 10/09/2019 Inactive Lyrica 150 mg capsule RxNorm: 164298 1 Capsule(s) Oral every ni ght at bedtime 09/05/2019 09/05/2019 Inactive metoprolol succinate ER 100 mg tablet,extended release 24 hr RxNorm: 954233 1 Tablet(s) Oral QD 08/29/2019 11/27/2019 Inactive hydrocodone 7.5 mg-acetaminophen 325 mg tablet RxNorm: 79226 5 1 Tablet(s) Oral Q4H as needed for pain 08/15/2019 08/21/2019 Inactive Lyrica 150 mg capsule RxNorm: 142958 TAKE ONE CAPSULE BY MOUTH TWICE A DAY 08/11/2019 09/04/2019 Inactive baclofen 20 mg tablet RxNorm: 369460 TAKE ONE TABLET BY MOUTH EVERY NIGHT AT BEDTIME FOR MUSCLE SPASMS AND TAKE ONE TABLET EVERY MORNING NEEDED 08/10/2019 01/01/2020 Inactive Dexilant 60 mg capsule, delayed release RxNorm: 311433 TAKE ONE CAPSULE BY MOUTH DAILY 07/19/2019 09/18/2019 Inactive Cymbalta 60 mg capsule,delayed release RxNorm: 447344 T LASHAUN TWO CAPSULES BY MOUTH DAILY 07/06/2019 10/23/2019 Inactive cyanocobalamin (vit B-12) 1,000 mcg/mL injection solution Rx Norm: 231323 1 Milliliter(s) Intramuscular every two weeks 06/02/2019 06/02/2019 Inac tive cyanocobalamin (vit B-12) 1,000 mcg/mL injection solution Rx Norm: 058238 1 Milliliter(s) Intramuscular every two weeks 05/23/2019 06/01/2019 Inac tive Dexilant 60 mg capsule, delayed release RxNorm: 141551 TAKE ONE CAPSULE BY MOUTH DAILY 05/19/2019 07/17/2019 Inactive Lyrica 150 mg capsule RxNorm: 962552 1 Capsule(s) PO BID 05/11/2019 1 10/09/2018 Inactive Cymbalta 60 mg capsule,delayed release RxNorm: 942975 2 Capsule (s) PO QD 04/04/2019 07/02/2019 Inactive cyanocobalamin (vit B-12) 1,000 mcg/mL injection solution Rx Norm: 388112 1 Milliliter(s) IM QW 03/17/2019 05/22/2019 Inactive Lyrica 150 mg capsule RxNorm: 473547 TAKE ONE CAPSULE BY MOUTH TWICE A DAY 03/08/2019 03/09/2019 Inactive cyanocobalamin (vit B-12) 1,000 mcg/mL injection solution Rx Norm: 303483 1 Milliliter(s) IM QW 02/16/2019 03/16/2019 Inactive Lyrica 150 mg capsule RxNorm: 531182 TAKE ONE CAPSULE BY MOUTH TWICE A DAY 02/08/2019 03/08/2019 Inactive Dexilant 60 mg capsule, delayed release RxNorm: 970725 1 Capsul e(s) PO QD 02/08/2019 05/08/2019 Inactive Dexilant 60 mg capsule, delayed release RxNorm: 194246 TAKE ONE CAPSULE BY MOUTH DAILY 01/03/2019 02/08/2019 Inactive Lyrica 150 mg capsule RxNorm: 263266 1 Capsule(s) PO BID 01/03/2019 0 02/08/2019 Inactive Cymbalta 60 mg capsule,delayed release RxNorm: 417741 T LASHAUN TWO CAPSULES BY MOUTH DAILY 12/27/2018 04/04/2019 Inactive Dexilant 60 mg capsule, delayed release RxNorm: 972824 TAKE ONE CAPSULE BY MOUTH DAILY 12/07/2018 01/02/2019 Inactive prednisone 20 mg tablet RxNorm: 532023 Take 3 tabs by m outh for 3 days, then 2 tabs by mouth for 3 days, then 1 tab by mouth for 3 days Take 2 tabs for 10/29/2018 11/07/2018 Inactive doxycycline hyclate 100 mg tablet RxNorm: 2972865 1 Tablet(s) PO BI D 10/26/2018 11/04/2018 Inactive doxycycline hyclate 100 mg tablet RxNorm: 2810082 1 Tablet(s) PO BI D 10/26/2018 10/25/2018 Inactive Dexilant 60 mg capsule, delayed release RxNorm: 081361 TAKE ONE CAPSULE BY MOUTH DAILY 10/04/2018 12/06/2018 Inactive Lyrica 150 mg capsule RxNorm: 221889 TAKE ONE CAPSULE BY MOUTH TWICE A DAY 10/04/2018 11/02/2018 Inactive baclofen 20 mg tablet RxNorm: 829612 1 Tablet(s) PO QHS for muscle spasm and q AM prn 08/11/2018 08/09/2019 Inactive Lyrica 150 mg capsule RxNorm: 073424 1 Capsule(s) PO BID 08/06/2018 0 10/04/2018 Inactive Dexilant 60 mg capsule, delayed release RxNorm: 092976 TAKE ONE CAPSULE BY MOUTH DAILY 07/07/2018 10/03/2018 Inactive Cymbalta 60 mg capsule,delayed release RxNorm: 505466 T LASHAUN TWO CAPSULES BY MOUTH DAILY 06/28/2018 12/24/2018 Inactive prednisone 20 mg tablet RxNorm: 763972 1 Tablet(s) PO BID 06/17/2018 06/21/2018 Inactive Zithromax Z-Osman 250 mg tablet RxNorm: 744728 Tablet(s) PO take as directed 06/17/2018 08/10/2018 Inactive Flagyl 500 mg tablet RxNorm: 385156 1 Tablet(s) PO BID 06/11/2018 Inactive Cipro 250 mg tablet RxNorm: 857193 1 Tablet(s) PO BID 06/11/201805/31 Inactive atenolol 50 mg tablet RxNorm: 304001 1 Tablet(s) PO BID 05/31/2018 Inactive albuterol sulfate 2.5 mg/3 mL (0.083 %) solution for n ebulization RxNorm: 166028 3 Milliliter(s) INH Q4H as needed 05/17/2018 No Stop Date Active Zithromax Z-Osman 250 mg tablet RxNorm: 232063 Tablet(s) PO take as directed 05/17/2018 06/10/2018 Inactive Lyrica 150 mg capsule RxNorm: 949211 1 Capsule(s) PO BID 05/12/2018 1 10/07/2017 Inactive hydrocodone 7.5 mg-acetaminophen 325 mg tablet RxNorm: 92256 5 1 Tablet(s) PO Q4H as needed for pain 05/12/2018 05/18/2018 Inactive Cymbalta 60 mg capsule,delayed release RxNorm: 976134 T LASHAUN TWO CAPSULES BY MOUTH DAILY 04/01/2018 04/04/2018 Inactive Lyrica 100 mg capsule RxNorm: 936932 Capsule(s) TAKE ON E CAPSULE BY MOUTH TWICE A DAY 03/01/2018 05/11/2018 Inactive Dexilant 60 mg capsule, delayed release RxNorm: 977104 1 Capsul e(s) PO QD 01/06/2018 07/04/2018 Inactive atenolol 50 mg tablet RxNorm: 182251 1 Tablet(s) PO BID 12/30/2017 Inactive Lyrica 100 mg capsule RxNorm: 257866 Capsule(s) TAKE ON E CAPSULE BY MOUTH TWICE A DAY 12/30/2017 02/26/2018 Inactive Cymbalta 60 mg capsule,delayed release RxNorm: 696564 2 Capsule (s) PO QD 12/30/2017 03/29/2018 Inactive ProAir HFA 90 mcg/actuation aerosol inhaler RxNorm: 337590 INHALE 2 PUFFS FOUR TIMES A DAY 11/12/2017 01/25/2018 Inactive Cymbalta 60 mg capsule,delayed release RxNorm: 832333 2 Capsule (s) PO QD 10/06/2017 12/30/2017 Inactive Lyrica 100 mg capsule RxNorm: 516736 TAKE ONE CAPSULE BY MOUTH TWICE A DAY 09/28/2017 10/26/2017 Inactive Lyrica 100 mg capsule RxNorm: 702028 1 Capsule(s) PO BID 08/26/2017 0 09/28/2017 Inactive Zithromax Z-Osman 250 mg tablet RxNorm: 677970 Tablet(s) PO As Di rected 08/07/2017 05/11/2018 Inactive Diflucan 150 mg tablet RxNorm: 141390 1 Tablet(s) PO Q72H 07/20/2017 05/11/2018 Inactive nystatin 100,000 unit/mL oral suspension RxNorm: 949066 5 Milliliter(s) PO QID swish and spit for 2 weeks 07/07/2017 07/20/2017 Inactive fluconazole 100 mg tablet RxNorm: 249214 1 Tablet(s) PO QD 07/07/2007/13/2017 Inactive Dexilant 60 mg capsule, delayed release RxNorm: 136176 1 Capsul e(s) PO QD 07/01/2017 01/06/2018 Inactive Cymbalta 60 mg capsule,delayed release RxNorm: 512662 2 Capsule (s) PO QD 07/01/2017 09/28/2017 Inactive atenolol 50 mg tablet RxNorm: 128640 1 Tablet(s) PO BID 06/17/2017 Inactive atenolol 50 mg tablet RxNorm: 279888 1 Tablet(s) PO BID 06/17/2017 Inactive atenolol 25 mg tablet RxNorm: 851429 1 Tablet(s) PO QD 06/16/2017 Inactive Cipro 250 mg tablet RxNorm: 652972 1 Tablet(s) PO BID 05/26/201705/02 Inactive Cipro 250 mg tablet RxNorm: 297631 1 Tablet(s) PO BID 05/26/201710/2016 Inactive Cymbalta 60 mg capsule,delayed release RxNorm: 696927 2 Capsule (s) PO QD 04/02/2017 07/01/2017 Inactive Zanaflex 4 mg tablet RxNorm: 357708 1 Tablet(s) PO BID as neede d for spasm 03/18/2017 05/11/2018 Inactive methocarbamol 750 mg tablet RxNorm: 709067 1 Tablet(s) PO TID as needed for muscle spasm 03/17/2017 03/17/2017 Inactive Cymbalta 60 mg capsule,delayed release RxNorm: 642346 T LASHAUN TWO CAPSULES BY MOUTH DAILY 01/01/2017 04/02/2017 Inactive atenolol 25 mg tablet RxNorm: 299938 1 Tablet(s) PO QD 01/01/2017 Inactive Dexilant 60 mg capsule, delayed release RxNorm: 714017 1 Capsul e(s) PO QD 12/24/2016 07/01/2017 Inactive prednisone 20 mg tablet RxNorm: 636305 1 Tablet(s) PO BID 12/17/2016 12/23/2016 Inactive doxycycline hyclate 100 mg capsule RxNorm: 6985876 1 Capsule(s) PO BID 12/11/2016 12/20/2016 Inactive doxycycline hyclate 100 mg capsule RxNorm: 1360979 1 Capsule(s) PO BID 12/11/2016 12/10/2016 Inactive albuterol sulfate 2.5 mg/3 mL (0.083 %) solution for n ebulization RxNorm: 857078 3 Milliliter(s) INH Q4H as needed 12/11/2016 05/16/2018 Inactiv e guaifenesin 400 mg tablet RxNorm: 259335 1 Tablet(s) PO QID 017 05/11/2018 Inactive Tessalon Perles 100 mg capsule RxNorm: 320550 1 Capsule (s) PO TID as needed for cough 12/10/2016 12/31/2016 Inactive ProAir HFA 90 mcg/actuation aerosol inhaler RxNorm: 817250 INHALE 2 PUFFS FOUR TIMES A DAY 08/12/2016 11/12/2017 Inactive Dexilant 60 mg capsule, delayed release RxNorm: 173343 TAKE ONE CAPSULE BY MOUTH DAILY 06/16/2016 12/24/2016 Inactive Cymbalta 60 mg capsule,delayed release RxNorm: 648673 2 Capsule (s) PO QD 06/16/2016 12/12/2016 Inactive zolpidem 10 mg tablet RxNorm: 465283 TAKE ONE TABLET BY MOUTH A T BEDTIME 03/10/2016 05/28/2016 Inactive Dexilant 60 mg capsule, delayed release RxNorm: 543929 TAKE ONE CAPSULE BY MOUTH DAILY 02/06/2016 06/04/2016 Inactive Cymbalta 60 mg capsule,delayed release RxNorm: 401865 2 Capsule (s) PO QD 11/19/2015 05/16/2016 Inactive zolpidem 10 mg tablet RxNorm: 443855 TAKE ONE TABLET BY MOUTH A T BEDTIME 10/02/2015 03/10/2016 Inactive Dexilant 60 mg capsule, delayed release RxNorm: 404419 TAKE ONE CAPSULE BY MOUTH DAILY 08/28/2015 01/24/2016 Inactive ProAir HFA 90 mcg/actuation aerosol inhaler RxNorm: 344295 2 Pu ff(s) INH QID 06/25/2015 10/22/2015 Inactive famotidine 40 mg tablet RxNorm: 471906 1 Tablet(s) PO QHS 06/25/2015 10/09/2015 Inactive Dexilant 60 mg capsule, delayed release RxNorm: 235411 1 Capsul e(s) PO QD 06/07/2015 08/27/2015 Inactive zolpidem 10 mg tablet RxNorm: 887498 TAKE ONE TABLET BY MOUTH EVERY NIGHT AT BEDTIME 06/01/2015 10/03/2015 Inactive Cymbalta 60 mg capsule,delayed release RxNorm: 392062 2 Capsule (s) PO QD 05/10/2015 11/19/2015 Inactive Cymbalta 60 mg capsule,delayed release RxNorm: 377108 2 Capsule (s) PO QD 04/11/2015 05/10/2015 Inactive zolpidem 10 mg tablet RxNorm: 569222 TAKE ONE TABLET BY MOUTH A T BEDTIME 04/06/2015 06/01/2015 Inactive zolpidem 10 mg tablet RxNorm: 883860 TAKE ONE TABLET BY MOUTH A T BEDTIME 03/05/2015 04/06/2015 Inactive zolpidem 10 mg tablet RxNorm: 599698 1 Tablet(s) PO QHS as need ed for sleep 02/27/2015 03/04/2015 Inactive Cymbalta 60 mg capsule,delayed release RxNorm: 138715 1 Capsule (s) PO QD 01/18/2015 04/10/2015 Inactive [AttnRPh: Saving clare ly/adjudicate RxGRP:[id number] RxBIN:[id number] RxPCN: ID#:[id number]] Trazadone 75mg Tablet RxNorm: 1-2 Tablet(s) PO QHS as ne eded for sleep 01/18/2015 02/26/2015 Inactive Singulair 10 mg tablet RxNorm: 019944 1 Tablet(s) PO QD No Start Date Active Tylenol Extra Strength 500 mg tablet RxNorm: 060115 Tablet(s) P O as needed No Start Date Active methocarbamol 750 mg tablet RxNorm: 665894 Tablet(s) PO as needed N o Start Date Active Vitamin D3 1,000 unit capsule RxNorm: 012903 1 Capsule(s) PO BID No Start Date Active aspirin 81 mg tablet RxNorm: 789964 1 Tablet(s) PO QD No Start Date Active Symbicort 160 mcg-4.5 mcg/actuation HFA aerosol inhaler RxNo rm: 6344162 2 Puff(s) INH BID No Start Date Active atorvastatin 40 mg tablet RxNorm: 329046 1 Tablet(s) PO QD No Start D ate Active Trazadone 100 100mg mg Tablet RxNorm: 1-2 Tablet(s) PO QHS No Start Date 01/17/2015 Inactive Fish Oil 1,000 mg capsule RxNorm: 1 Capsule(s) PO QD No Start Date 05/16/2018 Inactive multivitamin with iron tablet RxNorm: 1 Tablet(s) PO QD No Sta rt Date 05/16/2018 Inactive Spiriva Respimat inhalation RxNorm: 563210 inhalation No Start Date 1 09/05/2016 Inactive atenolol 25 mg tablet RxNorm: 927255 1 Tablet(s) PO BID No Start Da te 12/31/2016 Inactive Spiriva Respimat 2.5 mcg/actuation solution for inhalation R xNorm: 0692547 2 Puff(s) INH QD No Start Date 05/11/2018 Inactive Zithromax Z-Osman 250 mg tablet RxNorm: 725704 Tablet(s) PO As Di rected No Start Date 08/06/2017 Inactive Zanaflex 4 mg tablet RxNorm: 027529 1 Tablet(s) PO BID as neede d for spasm No Start Date 03/17/2017 Inactive gabapentin 800 mg tablet RxNorm: 999184 1 Tablet(s) PO TID No Start Date 03/17/2016 Inactive losartan 100 mg tablet RxNorm: 597529 1 Tablet(s) PO QD No Start Da te 12/31/2016 Inactive cyclobenzaprine 10 mg tablet RxNorm: 347675 1 Tablet(s) PO TID as needed for muscle spasm No Start Date 05/11/2018 Inactive potassium chloride ER 10 mEq tablet,extended release RxNorm: 488993 Tablet(s) PO as needed No Start Date 01/04/2020 Inactive gabapentin 300 mg capsule RxNorm: 189307 1 Capsule(s) PO TID No Sta rt Date 10/09/2015 Inactive furosemide 40 mg tablet RxNorm: 836051 Tablet(s) PO as needed No St art Date 01/04/2020 Inactive ferrous sulfate 325 mg (65 mg iron) tablet RxNorm: 848694 1 Tab let(s) PO QD No Start Date 09/04/2019 Inactive Dexilant 60 mg capsule, delayed release RxNorm: 995993 1 Capsul e(s) PO QD No Start Date 06/06/2015 Inactive amitriptyline 25 mg tablet RxNorm: 076194 1-2 Tablet(s) PO QHS as needed for sleep --replaces ambien No Start Date 07/20/2016 Inactive hydrocodone 7.5 mg-acetaminophen 325 mg tablet RxNorm: 81082 5 1 Tablet(s) PO TID No Start Date 05/11/2018 Inactive Lyrica 75 mg capsule RxNorm: 515602 1 Capsule(s) PO BID No Start Da te 05/11/2018 Inactive gabapentin 300 mg capsule RxNorm: 534949 1 Capsule(s) PO QHS No Sta rt Date 02/07/2015 Inactive Lyrica 50 mg capsule RxNorm: 642370 1 Capsule(s) PO BID No Start Da te 07/20/2016 Inactive zolpidem 10 mg tablet RxNorm: 608830 1 Tablet(s) PO QHS No Start Da te 02/07/2015 Inactive citalopram 40 mg tablet RxNorm: 450381 1 Tablet(s) PO QD No Start D ate 01/17/2015 Inactive hydrocodone 7.5 mg-acetaminophen 325 mg tablet RxNorm: 02447 5 1 Tablet(s) PO Q6H as needed for pain No Start Date 03/17/2016 Inactive losartan 100 mg tablet RxNorm: 233439 1/2 Tablet(s) PO QD No Start Date 05/18/2017 Inactive cyanocobalamin (vit B-12) 1,000 mcg/mL injection solution Rx Norm: 129751 1 Milliliter(s) IM QW No Start Date 02/15/2019 Inactive ProAir HFA 90 mcg/actuation aerosol inhaler RxNorm: 5364032 2 Pu ff(s) INH TID No Start Date 06/24/2015 Inactive methocarbamol 750 mg tablet RxNorm: 550583 1 Tablet(s) PO TID as needed for [...] Code Result Date S ervice Location NCDF [id number] Neutrophil 27 % 10/11/2019 Unknown NCDF [id number] BAND 0 % 10/11/2019 Unknown NCDF 2755621 Lymphocyte 59 % 10/11/2019 Unknown NCDF 0522308 Monocyte 13 % 10/11/2019 Unknown NCDF 5639658 Eosinophil 1 % 10/11/2019 Unknown NCDF 3941364 Basophil 0 % 10/11/2019 Unknown NCDF 4219153 Platelet Est Decreased 10/11/2019 Unkno wn NCDF [id number] Large Plts Present 10/11/2019 Unknown COMPLETE BLOOD COUNT [id number] WBC 2.4 10e9/L 10/10/19 20 Unknown COMPLETE BLOOD COUNT [id number] RBC 3.15 10e12/L 2019 Unknown COMPLETE BLOOD COUNT [id number] HEMOGLOBIN 11.4 g/dL 10/10/19 20 Unknown COMPLETE BLOOD COUNT [id number] HEMATOCRIT 35.0 % 10/10/19 20 Unknown COMPLETE BLOOD COUNT [id number] MCV 111.1 fL 0 Unknown COMPLETE BLOOD COUNT [id number] MCH 36.2 pg 0 Unknown COMPLETE BLOOD COUNT [id number] MCHC 32.6 g/dL 0 Unknown COMPLETE BLOOD COUNT [id number] PLATELET COUNT 18 10e9/L 10/01 Unknown COMPLETE BLOOD COUNT [id number] Mean Plt Volume 11.3 fL 05/2020 Unknown COMPLETE BLOOD COUNT [id number] Neut Auto 27.9 % 0 Unknown COMPLETE BLOOD COUNT [id number] Lymph Auto 58.5 % 10/10/19 20 Unknown COMPLETE BLOOD COUNT [id number] [place] Auto 12.0 % 0 Unknown COMPLETE BLOOD COUNT [id number] RDW 14.0 % 0 Unknown COMPLETE BLOOD COUNT [id number] Eos Auto 0.4 % 0 Unknown COMPLETE BLOOD COUNT [id number] Baso Auto 1.2 % 0 Unknown COMPLETE BLOOD COUNT [id number] Neutrophil Abs 0.67 10e9/L Unknown COMPLETE BLOOD COUNT [id number] Lymphocyte Abs 1.40 10e9/L Unknown COMPLETE BLOOD COUNT [id number] Monocyte Abs 0.29 10e9/L 10/01 Unknown COMPLETE BLOOD COUNT [id number] Eosinophil Abs 0.01 10e9/L Unknown COMPLETE BLOOD COUNT [id number] RDW-SD 54.2 fL 0 Unknown COMPLETE BLOOD COUNT [id number] Basophil Abs 0.03 10e9/L 10/01 Unknown NCDF 4815473 Neutrophil 32 % 08/30/2019 Unknown NCDF 0062305 BAND 4 % 08/30/2019 Unknown NCDF 9763376 Lymphocyte 43 % 08/30/2019 Unknown NCDF 4159083 Monocyte 20 % 08/30/2019 Unknown NCDF 4154987 Eosinophil 1 % 08/30/2019 Unknown NCDF 8381310 Basophil 0 % 08/30/2019 Unknown NCDF 7323858 Platelet Est Decreased 08/30/2019 Unkno wn VITAMIN B 12 86581 VITAMIN B12 716 pg/mL 08/29/2019 Unkn own COMPLETE BLOOD COUNT [id number] WBC 3.0 10e9/L 08/29/20 19 Unknown COMPLETE BLOOD COUNT [id number] RBC 3.19 10e12/L 2018 Unknown COMPLETE BLOOD COUNT [id number] HEMOGLOBIN 11.5 g/dL 08/29/20 19 Unknown COMPLETE BLOOD COUNT [id number] HEMATOCRIT 35.6 % 08/29/20 19 Unknown COMPLETE BLOOD COUNT [id number] MCV 111.6 fL 9 Unknown COMPLETE BLOOD COUNT [id number] MCH 36.1 pg 9 Unknown COMPLETE BLOOD COUNT [id number] MCHC 32.3 g/dL 9 Unknown COMPLETE BLOOD COUNT [id number] PLATELET COUNT 79 10e9/L 08/02 Unknown COMPLETE BLOOD COUNT [id number] Mean Plt Volume 11.1 fL Unknown COMPLETE BLOOD COUNT [id number] Neut Auto 32.7 % 9 Unknown COMPLETE BLOOD COUNT [id number] Lymph Auto 39.6 % 08/29/20 19 Unknown COMPLETE BLOOD COUNT [id number] [place] Auto 24.4 % 9 Unknown COMPLETE BLOOD COUNT [id number] RDW 14.0 % 9 Unknown COMPLETE BLOOD COUNT [id number] Eos Auto 2.0 % 9 Unknown COMPLETE BLOOD COUNT 9855670 Baso Auto 1.3 % 9 Unknown COMPLETE BLOOD COUNT [id number] Neutrophil Abs 0.98 10e9/L Unknown COMPLETE BLOOD COUNT [id number] Lymphocyte Abs 1.19 10e9/L Unknown COMPLETE BLOOD COUNT [id number] Monocyte Abs 0.73 10e9/L 08/02 Unknown COMPLETE BLOOD COUNT [id number] Eosinophil Abs 0.06 10e9/L Unknown COMPLETE BLOOD COUNT [id number] RDW-SD 54.5 fL 9 Unknown COMPLETE BLOOD COUNT [id number] Basophil Abs 0.04 10e9/L 08/02 Unknown NCDF 1093374 Neutrophil 37 % 05/24/2019 Unknown NCDF 3663335 BAND 5 % 05/24/2019 Unknown NCDF 7345079 Lymphocyte 34 % 05/24/2019 Unknown NCDF 6046773 Monocyte 19 % 05/24/2019 Unknown NCDF 1402448 Eosinophil 3 % 05/24/2019 Unknown NCDF 5885987 Basophil 2 % 05/24/2019 Unknown NCDF 4930108 Platelet Est Adequate 05/24/2019 Unknow n VITAMIN B 12 00175 VITAMIN B12 788 pg/mL 05/23/2019 Unkn own IRON 29546 Iron 152 ug/dL 05/23/2019 Unknown COMPLETE BLOOD COUNT [id number] WBC 3.9 10e9/L 05/23/20 19 Unknown COMPLETE BLOOD COUNT [id number] RBC 3.61 10e12/L 2018 Unknown COMPLETE BLOOD COUNT [id number] HEMOGLOBIN 12.5 g/dL 05/23/20 19 Unknown COMPLETE BLOOD COUNT [id number] HEMATOCRIT 38.2 % 05/23/20 19 Unknown COMPLETE BLOOD COUNT [id number] MCV 105.8 fL 9 Unknown COMPLETE BLOOD COUNT [id number] MCH 34.6 pg 9 Unknown COMPLETE BLOOD COUNT [id number] MCHC 32.7 g/dL 9 Unknown COMPLETE BLOOD COUNT [id number] PLATELET COUNT 157 10e9/L Unknown COMPLETE BLOOD COUNT [id number] Mean Plt Volume 10.4 fL Unknown COMPLETE BLOOD COUNT [id number] Neut Auto 35.6 % 9 Unknown COMPLETE BLOOD COUNT [id number] Lymph Auto 33.2 % 05/23/20 19 Unknown COMPLETE BLOOD COUNT [id number] [place] Auto 26.6 % 9 Unknown COMPLETE BLOOD COUNT [id number] RDW 14.1 % 9 Unknown COMPLETE BLOOD COUNT 4321305 Eos Auto 1.8 % 9 Unknown COMPLETE BLOOD COUNT [id number] Baso Auto 2.8 % 9 Unknown COMPLETE BLOOD COUNT [id number] Neutrophil Abs 1.39 10e9/L Unknown COMPLETE BLOOD COUNT [id number] Lymphocyte Abs 1.29 10e9/L Unknown COMPLETE BLOOD COUNT [id number] Monocyte Abs 1.04 10e9/L 05/02 Unknown COMPLETE BLOOD COUNT [id number] Eosinophil Abs 0.07 10e9/L Unknown COMPLETE BLOOD COUNT [id number] RDW-SD 53.5 fL 9 Unknown COMPLETE BLOOD COUNT [id number] Basophil Abs 0.11 10e9/L 05/02 Unknown COMPLETE BLOOD COUNT [id number] WBC 5.4 10e9/L 06/11/20 18 Unknown COMPLETE BLOOD COUNT [id number] RBC 4.05 10e12/L 2017 Unknown COMPLETE BLOOD COUNT [id number] HEMOGLOBIN 13.5 g/dL 06/11/20 18 Unknown COMPLETE BLOOD COUNT [id number] HEMATOCRIT 41.3 % 06/11/20 18 Unknown COMPLETE BLOOD COUNT [id number] MCV 102.0 fL 8 Unknown COMPLETE BLOOD COUNT [id number] MCH 33.3 pg 8 Unknown COMPLETE BLOOD COUNT [id number] MCHC 32.7 g/dL 8 Unknown COMPLETE BLOOD COUNT [id number] PLATELET COUNT 210 10e9/L 07/2018 Unknown COMPLETE BLOOD COUNT [id number] Mean Plt Volume 10.0 fL 07/2018 Unknown COMPLETE BLOOD COUNT [id number] Neut Auto 35.2 % 8 Unknown COMPLETE BLOOD COUNT [id number] Lymph Auto 29.2 % 06/11/20 18 Unknown COMPLETE BLOOD COUNT [id number] [place] Auto 17.3 % 8 Unknown COMPLETE BLOOD COUNT 0835903 RDW 13.8 % 8 Unknown COMPLETE BLOOD COUNT [id number] Eos Auto 16.4 % 8 Unknown COMPLETE BLOOD COUNT [id number] Baso Auto 1.9 % 8 Unknown COMPLETE BLOOD COUNT [id number] Neutrophil Abs 1.90 10e9/L Unknown COMPLETE BLOOD COUNT 7040521 Lymphocyte Abs 1.58 10e9/L Unknown COMPLETE BLOOD COUNT [id number] Monocyte Abs 0.93 10e9/L 05/31 Unknown COMPLETE BLOOD COUNT [id number] Eosinophil Abs 0.89 10e9/L Unknown COMPLETE BLOOD COUNT [id number] RDW-SD 50.2 fL 8 Unknown COMPLETE BLOOD COUNT [id number] Basophil Abs 0.10 10e9/L 05/31 Unknown GFR CALC [id number] GFR Non Afr Amr >60 mL/min 06/11/2018 Un known GFR CALC 8900549 GFR Afr Amr >60 mL/min 06/11/2018 Unknow n COMPREHENSIVE METABOLIC 09063 AST 15 U/L 2017 Unknown COMPREHENSIVE METABOLIC 25580 ALT 18 U/L 2017 Unknown COMPREHENSIVE METABOLIC 65069 BUN 11 mg/dL 2017 Unknown COMPREHENSIVE METABOLIC 61329 ALBUMIN 3.7 g/dL 2017 Unknown COMPREHENSIVE METABOLIC 39926 CHLORIDE 102 mmol/L 06/11 Unknown COMPREHENSIVE METABOLIC 75557 Bili Total 0.6 mg/dL 06/11 Unknown COMPREHENSIVE METABOLIC 97182 ALK PHOS 98 U/L 2017 Unknown COMPREHENSIVE METABOLIC 74757 SODIUM 139 mmol/L 06/11 Unknown COMPREHENSIVE METABOLIC 58473 CREATININE 0.89 mg/dL 05/31 Unknown COMPREHENSIVE METABOLIC 35669 CALCIUM 8.7 mg/dL 2017 Unknown COMPREHENSIVE METABOLIC 46076 POTASSIUM 3.9 mmol/L 06/11 Unknown COMPREHENSIVE METABOLIC 95410 Total Protein 6.7 g/dL Unknown COMPREHENSIVE METABOLIC 21932 Glucose 112 mg/dL 2017 Unknown COMPREHENSIVE METABOLIC 66260 Bicarbonate 35 mmol/L 05/31 Unknown COMPREHENSIVE METABOLIC 91878 AGAP 2 mmol/L 2017 Unknown COMPLETE BLOOD COUNT [id number] WBC 7.4 10e9/L 10/17/19 16 Unknown COMPLETE BLOOD COUNT [id number] RBC 4.42 10e12/L 2015 Unknown COMPLETE BLOOD COUNT [id number] HGB 13.8 g/dL 6 Unknown COMPLETE BLOOD COUNT [id number] HCT DET 40.8 % 6 Unknown COMPLETE BLOOD COUNT [id number] MCV 92.3 fL 6 Unknown COMPLETE BLOOD COUNT [id number] MCH 31.2 pg 6 Unknown COMPLETE BLOOD COUNT [id number] MCHC 33.8 g/dL 6 Unknown COMPLETE BLOOD COUNT [id number] PLT 247 10e9/L 10/17/19 16 Unknown COMPLETE BLOOD COUNT [id number] MPV 9.3 fL 6 Unknown COMPLETE BLOOD COUNT [id number] YANNICK % 63.0 % 6 Unknown COMPLETE BLOOD COUNT [id number] LY % 19.2 % 6 Unknown COMPLETE BLOOD COUNT [id number] MON % 15.8 % 6 Unknown COMPLETE BLOOD COUNT [id number] EOS % 1.1 % 6 Unknown COMPLETE BLOOD COUNT [id number] BASO % 0.9 % 6 Unknown COMPLETE BLOOD COUNT [id number] RDW 13.7 % 6 Unknown COMPLETE BLOOD COUNT [id number] ABS YANNICK 4.66 10e9/L 016 Unknown COMPLETE BLOOD COUNT [id number] ABS LYMPH 1.42 10e9/L 016 Unknown COMPLETE BLOOD COUNT [id number] ABS MONO 1.17 10e9/L 016 Unknown COMPLETE BLOOD COUNT [id number] ABS EOS 0.08 10e9/L 016 Unknown COMPLETE BLOOD COUNT [id number] ABS BASO 0.07 10e9/L 016 Unknown COMPLETE BLOOD COUNT [id number] RDW-SD 44.9 fL 6 Unknown GFR CALC [id number] GFR AA 46.0L ML/MIN 10/17/2015 Unknow n GFR CALC [id number] GFR NON-AA 37.0L ML/MIN 10/17/2015 Unkno wn C-REACTIVE PROTEIN (CRP) QUANT 37483 CRP 0.5 MG/DL 10/17/2015 Unknown COMPREHENSIVE METABOLIC 20380 AST 18 U/L 2015 Unknown COMPREHENSIVE METABOLIC 05624 ALT 27 U/L 2015 Unknown COMPREHENSIVE METABOLIC 89398 BUN 38 MG/DL 2015 Unknown COMPREHENSIVE METABOLIC 22317 ALBUMIN 3.7 GM/DL 2015 Unknown COMPREHENSIVE METABOLIC 59508 CHLORIDE 100 MMOL/L 10/17 Unknown COMPREHENSIVE METABOLIC 33639 BILI TOT 0.8 MG/DL 2015 Unknown COMPREHENSIVE METABOLIC 80655 ALK PHOS 70 U/L 2015 Unknown COMPREHENSIVE METABOLIC 61977 SODIUM 137 MMOL/L 10/17 Unknown COMPREHENSIVE METABOLIC 55297 CREATININE 1.80 MG/DL 10/01 Unknown COMPREHENSIVE METABOLIC 06012 CALCIUM 8.9 MG/DL 2015 Unknown COMPREHENSIVE METABOLIC 28430 POTASSIUM 5.1 MMOL/L 10/17 Unknown COMPREHENSIVE METABOLIC 65494 PROT TOT 6.6 GM/DL 2015 Unknown COMPREHENSIVE METABOLIC 55236 Glucose 99 MG/DL 2015 Unknown COMPREHENSIVE METABOLIC 91148 BICARB 22 MMOL/L 2015 Unknown COMPREHENSIVE METABOLIC 98354 ANION GAP 15 MMOL/L 2015 Unknown Procedures Procedure Codes Date ROUTINE VENIPUNCTURE CPT-4: 25475 10/10/2019 COMPLETE CBC W/AUTO DIFF WBC CPT-4: 30389 10/10/2019 THER/PROPH/DIAG INJ SC/IM CPT-4: 86091 09/20/2019 TRIAMCINOLONE ACET INJ NOS CPT-4: J3301 09/20/2019 CEFTRIAXONE SODIUM INJECTION CPT-4: J0696 09/20/2019 THER/PROPH/DIAG INJ SC/IM CPT-4: 03062 09/20/2019 THER/PROPH/DIAG INJ SC/IM CPT-4: 19024 09/19/2019 METHYLPREDNISOLONE INJECTION CPT-4: J2930 09/19/2019 CEFTRIAXONE SODIUM INJECTION CPT-4: J0696 09/19/2019 THER/PROPH/DIAG INJ SC/IM CPT-4: 72663 09/19/2019 ROUTINE VENIPUNCTURE CPT-4: 48109 08/29/2019 COMPLETE CBC W/AUTO DIFF WBC CPT-4: 88905 08/29/2019 VITAMIN B-12 CPT-4: 37056 08/29/2019 THER/PROPH/DIAG INJ SC/IM CPT-4: 98454 08/29/2019 THER/PROPH/DIAG INJ SC/IM CPT-4: 83591 08/15/2019 THER/PROPH/DIAG INJ SC/IM CPT-4: 30027 08/01/2019 THER/PROPH/DIAG INJ SC/IM CPT-4: 54931 07/18/2019 THER/PROPH/DIAG INJ SC/IM CPT-4: 52963 07/04/2019 THER/PROPH/DIAG INJ SC/IM CPT-4: 95783 06/20/2019 FLU VACC PRSV FREE INC ANTIG 65 AND OLDER CPT-4: 69158 06/06/2019 THER/PROPH/DIAG INJ SC/IM CPT-4: 53712 06/06/2019 FLU VACC PRSV FREE INC ANTIG 65 AND OLDER CPT-4: 44819 06/06/2019 PNEUMOCOCCAL VACC 23 GAIL IM CPT-4: 93103 06/06/2019 ADMIN INFLUENZA VIRUS VAC CPT-4: G0008 06/06/2019 ADMIN PNEUMOCOCCAL VACCINE CPT-4: G0009 06/06/2019 ROUTINE VENIPUNCTURE CPT-4: 20433 05/23/2019 COMPLETE CBC W/AUTO DIFF WBC CPT-4: 67488 05/23/2019 ASSAY OF IRON CPT-4: 21027 05/23/2019 VITAMIN B-12 CPT-4: 49229 05/23/2019 THER/PROPH/DIAG INJ SC/IM CPT-4: 23664 05/18/2019 THER/PROPH/DIAG INJ SC/IM CPT-4: 37830 05/04/2019 THER/PROPH/DIAG INJ SC/IM CPT-4: 94669 04/27/2019 THER/PROPH/DIAG INJ SC/IM CPT-4: 67208 04/20/2019 THER/PROPH/DIAG INJ SC/IM CPT-4: 40348 04/06/2019 THER/PROPH/DIAG INJ SC/IM CPT-4: 77161 03/23/2019 VITAMIN B12 INJECTION CPT-4: J3420 03/23/2019 THER/PROPH/DIAG INJ SC/IM CPT-4: 11637 03/14/2019 THER/PROPH/DIAG INJ SC/IM CPT-4: 57250 03/07/2019 THER/PROPH/DIAG INJ SC/IM CPT-4: 09520 02/24/2019 THER/PROPH/DIAG INJ SC/IM CPT-4: 34861 02/16/2019 CEFTRIAXONE SODIUM INJECTION CPT-4: J0696 10/29/2018 THER/PROPH/DIAG INJ SC/IM CPT-4: 52750 10/29/2018 THER/PROPH/DIAG INJ SC/IM CPT-4: 73305 10/26/2018 METHYLPREDNISOLONE INJECTION CPT-4: J2930 10/26/2018 THER/PROPH/DIAG INJ SC/IM CPT-4: 72869 06/23/2018 METHYLPREDNISOLONE INJECTION CPT-4: J2930 06/23/2018 COMPLETE CBC W/AUTO DIFF WBC CPT-4: 66605 06/11/2018 COMPREHEN METABOLIC PANEL CPT-4: 23506 06/11/2018 CEFTRIAXONE SODIUM INJECTION CPT-4: J0696 05/18/2018 THER/PROPH/DIAG INJ SC/IM CPT-4: 45451 05/18/2018 CEFTRIAXONE SODIUM INJECTION CPT-4: J0696 05/17/2018 THER/PROPH/DIAG INJ SC/IM CPT-4: 89507 05/17/2018 THER/PROPH/DIAG INJ SC/IM CPT-4: 28510 05/17/2018 METHYLPREDNISOLONE INJECTION CPT-4: J2930 05/17/2018 FLU VACC PRSV FREE INC ANTIG 65 AND OLDER CPT-4: 35976 05/12/2018 PNEUMOCOCCAL VACC 13 GAIL IM CPT-4: 20694 05/12/2018 ADMIN INFLUENZA VIRUS VAC CPT-4: G0008 05/12/2018 ADMIN PNEUMOCOCCAL VACCINE CPT-4: G0009 05/12/2018 FLU VACC PRSV FREE INC ANTIG 65 AND OLDER CPT-4: 40649 06/17/2017 ADMIN INFLUENZA VIRUS VAC CPT-4: G0008 06/17/2017 URINALYSIS NONAUTO W/O SCOPE CPT-4: 83685 05/21/2017 URINE CULTURE/ COLONY COUNT CPT-4: 48421 05/21/2017 CEFTRIAXONE SODIUM INJECTION CPT-4: J0696 12/16/2016 THER/PROPH/DIAG INJ SC/IM CPT-4: 69818 12/16/2016 THER/PROPH/DIAG INJ SC/IM CPT-4: 70020 12/16/2016 METHYLPREDNISOLONE INJECTION CPT-4: J2930 12/16/2016 CEFTRIAXONE SODIUM INJECTION CPT-4: J0696 12/15/2016 THER/PROPH/DIAG INJ SC/IM CPT-4: 90237 12/15/2016 THER/PROPH/DIAG INJ SC/IM CPT-4: 02317 12/15/2016 METHYLPREDNISOLONE INJECTION CPT-4: J2930 12/15/2016 THER/PROPH/DIAG INJ SC/IM CPT-4: 54400 12/10/2016 TRIAMCINOLONE ACET INJ NOS CPT-4: J3301 12/10/2016 DEXAMETHASONE SODIUM PHOS CPT-4: J1100 12/10/2016 FLU VACC PRSV FREE INC ANTIG 65 AND OLDER CPT-4: 86804 07/21/2016 ADMIN INFLUENZA VIRUS VAC CPT-4: G0008 07/21/2016 ROUTINE VENIPUNCTURE CPT-4: 03639 10/17/2015 COMPLETE CBC W/AUTO DIFF WBC CPT-4: 33820 10/17/2015 COMPREHEN METABOLIC PANEL CPT-4: 38871 10/17/2015 C-REACTIVE PROTEIN CPT-4: 88062 10/17/2015 FLU VACC PRSV FREE INC ANTIG 65 AND OLDER CPT-4: 55746 06/25/2015 ADMIN INFLUENZA VIRUS VAC CPT-4: G0008 06/25/2015 PRESCRIP TRANSMIT VIA ERX SY CPT-4: G8553 06/25/2015 PRESCRIP TRANSMIT VIA ERX SY CPT-4: G8553 04/11/2015 URINALYSIS NONAUTO W/O SCOPE CPT-4: 32071 02/08/2015 PRESCRIP TRANSMIT VIA ERX SY CPT-4: [...] 1: 148/74 Code: 8480-6 BMI: 35.2 Code: 17629-9 Heart Rate 1: 64 bpm Height: 5'10" [...] 1: 126/70 Code: 8480-6 BMI: 34.9 Code: 83314-5 Heart Rate 1: 64 bpm Height: 5'10" Respiratory Rate: 20 bpm SpO2: 96% Tempera ture: 36.8 (C) / 98.3 (F) Weight: 243 lbs 07/20/2017 Blood Pressure 1: 136/78 Code: 8480-6 Heart Rate 1: 74 bpm Height: 5'10" Respiratory Rate: 22 bpm SpO2: 98% Temperature: 36.2 (C) / 97.1 (F) Weight: 07/07/2017 Blood Pressure 1: 136/78 Code: 8480-6 BMI: 35.3 Code: 48355-0 Heart Rate 1: 72 bpm Height: 5'10" Respiratory Rate: 20 bpm SpO2: 95% Tempera ture: 36.7 (C) / 98.1 (F) Weight: 246 lbs 06/17/2017 Blood Pressure 1: 128/68 Code: 8480-6 BMI: 34.7 Code: 30920-7 Heart Rate 1: 80 bpm Height: 5'10" Respiratory Rate: 22 bpm SpO2: 94% Tempera ture: 36.7 (C) / 98.0 (F) Weight: 242 lbs 05/19/2017 Blood Pressure 1: 112/68 Code: 8480-6 BMI: 34.9 Code: 70156-7 Heart Rate 1: 84 bpm Height: 5'10" Respiratory Rate: 18 bpm SpO2: 97% Tempera ture: 36.4 (C) / 97.6 (F) Weight: 243 lbs 02/24/2017 Blood Pressure 1: 122/62 Code: 8480-6 Heart Rate 1: 66 bpm Height: 5'10" Respiratory Rate: 18 bpm SpO2: 95% Temperature: 36 .6 (C) / 97.9 (F) 01/01/2017 Blood Pressure 1: 126/58 Code: 8480-6 BMI: 34.9 Code: 77530-8 Heart Rate 1: 72 bpm Height: 5'10" [...] 1: 124/68 Code: 8480-6 BMI: 35.4 Code: 17485-9 Heart Rate 1: 84 bpm Height: 5'10" Respiratory Rate: 20 bpm SpO2: 94% Tempera ture: 37.0 (C) / 98.6 (F) Weight: 247 lbs 05/29/2016 Blood Pressure 1: 112/72 Code: 8480-6 BMI: 36.0 Code: 39819-3 Heart Rate 1: 108 bpm Height: 5'10" Respiratory Rate: 24 bpm SpO2: 91% Tempera ture: 36.4 (C) / 97.6 (F) Weight: 251 lbs 03/18/2016 Blood Pressure 1: 122/64 Code: 8480-6 BMI: 35.6 Code: 03443-6 Heart Rate 1: 64 bpm Height: 5'10" [...] 1: 134/78 Code: 8480-6 BMI: 35.9 Code: 25443-7 Heart Rate 1: 72 bpm Height: 5'10" Respiratory Rate: 20 bpm Temperature: 36 .9 (C) / 98.4 (F) Weight: 250 lbs 08/30/2015 Blood Pressure 1: 128/62 Code: 8480-6 Heart Rate 1: 78 bpm Respiratory Rate: 20 bpm SpO2: 96% Temperature: 35.9 (C) / 96.6 (F) We ight: 252 lbs 06/25/2015 Blood Pressure 1: 126/70 Code: 8480-6 BMI: 36.9 Code: 16626-5 Heart Rate 1: 64 bpm Height: 5'10" Respiratory Rate: 20 bpm Temperature: 36 .6 (C) / 97.9 (F) Weight: 257 lbs 04/25/2015 Blood Pressure 1: 130/80 Code: 8480-6 BMI: 37.3 Code: 28512-3 Heart Rate 1: 64 bpm Height: 5'10" Respiratory Rate: 22 bpm Temperature: 36 .4 (C) / 97.6 (F) Weight: 260 lbs 04/11/2015 Blood Pressure 1: 148/70 Code: 8480-6 BMI: 37.3 Code: 90131-5 Heart Rate 1: 66 bpm Height: 5'10" Respiratory Rate: 18 bpm Temperature: 36 .5 (C) / 97.7 (F) Weight: 260 lbs 02/27/2015 Blood Pressure 1: 122/58 Code: 8480-6 BMI: 36.0 Code: 79851-3 Heart Rate 1: 80 bpm Height: 5'10" Respiratory Rate: 20 bpm Temperature: 36 .7 (C) / 98.1 (F) Weight: 251 lbs 02/08/2015 Blood Pressure 1: 140/68 Code: 8480-6 BMI: 36.7 Code: 57462-9 Heart Rate 1: 64 bpm Height: 5'10" Respiratory Rate: 20 bpm Temperature: 36 .9 (C) / 98.5 (F) Weight: 256 lbs 01/18/2015 Blood Pressure 1: 136/68 Code: 8480-6 BMI: 33.0 Code: 03170-2 Heart Rate 1: 60 bpm Height: 5'10" [...] Hospital fwup follow up 12/22/2016 Initial treatment abker s been with Steroid Injections- currently on [...] hands and legs ~generic 01/18/2015 New Patient---establ remiing visit Encounters Encounter Performer Location Codes Date ([id number]) OFFICE/OUTPATIENT VISIT EST Diagnosis: Chronic depressive disorder[ICD10: F32.9] Haylee Piper [facility] CPT-4: 31818 01/04/2020 ([id number]) NURSE/OUTPATIENT VISIT EST Diagnosis: Thrombocytopenia[ICD10: D69.6] Haylee PIPER DO [facility] CPT-4: 23240 10/10/2019 ([id number]) NO CHARGE Diagnosis: Pancytopenia[ICD10: D61.818] Haylee PIPER DO [facility] CPT-4: 15426 10/10/2019 ([id number]) OFFICE/OUTPATIENT VISIT EST Diagnosis: Chronic obstructive pulmonary disease, unspecified[ICD10: J44.9] Diagnosis: Pancytopenia[ICD10: D61.818] Haylee PIPER DO [facility] CPT-4: 01987 09/29/2019 ([id number]) NO CHARGE Diagnosis: Chronic obstructive pulmonary disease with (acute) exacerbation[ICD10: J44.1] Haylee PIPER DO [facility] CPT- 4: 29934 09/21/2019 ([id number]) OFFICE/OUTPATIENT VISIT EST Diagnosis: Chronic obstructive pulmonary disease with acute lower respiratory infection[ICD10: J44.0] Diagnosis: Chronic obstructive pulmonary disease with (acute) exacerbation[ICD10: J44.1] Haylee PIPER DO [facility] CPT- 4: 22982 09/20/2019 ([id number]) OFFICE/OUTPATIENT VISIT EST Diagnosis: COPD with lower respiratory infection[ICD10: J44.0] Diagnosis: COPD with exacerbation[ICD10: J44.1] Haylee PIPER DO [facility] CPT-4: 69221 09/19/2019 ([id number]) OFFICE/OUTPATIENT VISIT EST Diagnosis: Other fatigue[ICD10: R53.83] Diagnosis: Pancytopenia[ICD10: D61.818] Diagnosis: Other intervertebral disc degeneration, 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] Haylee PIPER DO [facility] CPT-4: 65610 09/05/2019 ([id number]) OFFICE/OUTPATIENT VISIT EST Diagnosis: Vitamin B12 deficiency anemia, unspecified[ICD10: D51.9] Diagnosis: Other fatigue[ICD10: R53.83] Diagnosis: Unsteadiness[ICD10: R26.81] Hayleeromain ESCOBAR DO [facility] CPT-4: 05873 08/29/2019 ([id number]) NURSE/OUTPATIENT VISIT EST Diagnosis: Vitamin B12 deficiency anemia, unspecified[ICD10: D51.9] Haylee PIPER DO [facility] CPT-4: 13813 08/15/2019 ([id number]) NURSE/OUTPATIENT VISIT EST Diagnosis: Vitamin B12 deficiency anemia, unspecified[ICD10: D51.9] Haylee PIPER DO [facility] CPT-4: 94051 08/01/2019 ([id number]) NURSE/OUTPATIENT VISIT EST Diagnosis: Vitamin B12 deficiency anemia, unspecified[ICD10: D51.9] Haylee PIPER DO [facility] CPT-4: 93992 07/18/2019 ([id number]) NURSE/OUTPATIENT VISIT EST Diagnosis: Vitamin B12 deficiency anemia, unspecified[ICD10: D51.9] Haylee PIPER DO [facility] CPT-4: 54105 07/04/2019 ([id number]) NURSE/OUTPATIENT VISIT EST Diagnosis: Vitamin B12 deficiency anemia, unspecified[ICD10: D51.9] Haylee PIPER DO [facility] CPT-4: 39474 06/20/2019 ([id number]) NURSE/OUTPATIENT VISIT EST Diagnosis: Vitamin B12 deficiency anemia, unspecified[ICD10: D51.9] Diagnosis: FLU VACCINE[ICD10: Z23] Diagnosis: PNEUMOCOCCAL VACCINE[ICD10: Z23] Haylee PIPER DO [facility] CPT-4: 76045 06/06/2019 ([id number]) OFFICE/OUTPATIENT VISIT EST Diagnosis: Other fatigue[ICD10: R53.83] Diagnosis: B12 deficiency[ICD10: E53.8] Diagnosis: Iron deficiency anemia[ICD10: D50.9] Haylee PIPER DO [facility] CPT-4: 05957 05/23/2019 ([id number]) NURSE/OUTPATIENT VISIT EST Diagnosis: Vitamin B12 deficiency anemia, unspecified[ICD10: D51.9] Haylee PIPER DO [facility] CPT-4: 39660 05/18/2019 ([id number]) NURSE/OUTPATIENT VISIT EST Diagnosis: Vitamin B12 deficiency anemia, unspecified[ICD10: D51.9] Haylee PIPER DO [facility] CPT-4: 90292 05/04/2019 ([id number]) NURSE/OUTPATIENT VISIT EST Diagnosis: Vitamin B12 deficiency anemia, unspecified[ICD10: D51.9] Haylee PIPER DO [facility] CPT-4: 00485 04/27/2019 ([id number]) NURSE/OUTPATIENT VISIT EST Diagnosis: Vitamin B12 deficiency anemia, unspecified[ICD10: D51.9] Haylee PIPER DO [facility] CPT-4: 14695 04/20/2019 ([id number]) NURSE/OUTPATIENT VISIT EST Diagnosis: Vitamin B12 deficiency anemia, unspecified[ICD10: D51.9] Haylee PIPER DO [facility] CPT-4: 83979 04/06/2019 ([id number]) NURSE/OUTPATIENT VISIT EST Diagnosis: Vitamin B12 deficiency anemia, unspecified[ICD10: D51.9] Haylee PIPER DO [facility] CPT-4: 39479 03/23/2019 ([id number]) OFFICE/OUTPATIENT VISIT EST Diagnosis: Other intervertebral disc degeneration, 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] Diagnosis: Vitamin B12 deficiency anemia, unspecified[ICD10: D51.9] Diagnosis: Vitamin D deficiency, unspecified[ICD10: E55.9] Haylee PIPER DO [facility] CPT-4: 79572 03/17/2019 ([id number]) NURSE/OUTPATIENT VISIT EST Diagnosis: Vitamin B12 deficiency anemia, unspecified[ICD10: D51.9] Haylee PIPER DO [facility] CPT-4: 00227 03/14/2019 ([id number]) NURSE/OUTPATIENT VISIT EST Diagnosis: Vitamin B12 deficiency anemia, unspecified[ICD10: D51.9] Haylee PIPER DO [facility] CPT-4: 48557 03/07/2019 ([id number]) NURSE/OUTPATIENT VISIT EST Diagnosis: Vitamin B12 deficiency anemia, unspecified[ICD10: D51.9] Haylee PIPER DO [facility] CPT-4: 49739 02/24/2019 ([id number]) NURSE/OUTPATIENT VISIT EST Diagnosis: Vitamin B12 deficiency anemia, unspecified[ICD10: D51.9] Haylee PIPER DO [facility] CPT-4: 50127 02/16/2019 ([id number]) OFFICE/OUTPATIENT VISIT EST Diagnosis: Other fatigue[ICD10: R53.83] Diagnosis: Chronic obstructive pulmonary disease, unspecified[ICD10: J44.9] Diagnosis: Other spondylosis with radiculopathy, 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] Diagnosis: Vitamin D deficiency, unspecified[ICD10: E55.9] Diagnosis: Hyperglycemia, unspecified[ICD10: R73.9] Haylee PIPER DO [facility] CPT-4: 82362 02/14/2019 ([id number]) OFFICE/OUTPATIENT VISIT EST Diagnosis: Chronic obstructive pulmonary disease, unspecified[ICD10: J44.9] Diagnosis: Hypoxemia[ICD10: R09.02] Haylee MCCOLLUM [facility] CPT-4: 10688 11/11/2018 ([id number]) OFFICE/OUTPATIENT VISIT EST Diagnosis: Acute bronchitis, unspecified[ICD10: J20.9] Diagnosis: Other specified respiratory disorders[ICD10: J98.8] Diagnosis: Chronic obstructive pulmonary disease with (acute) exacerbation[ICD10: J44.1] Chula PIPER DO [facility] CPT- 4: 72860 10/29/2018 OFFICE/OUTPATIENT VISIT EST Diagnosis: Acute bronchitis due to other specified organisms[ICD10: J20.8] Diagnosis: Chronic obstructive pulmonary disease, unspecified[ICD10: J44.9] Chula PIPER DO [facility] CPT-4: 22105 10/26/2018 OFFICE/OUTPATIENT VISIT EST Diagnosis: Cervicalgia[ICD10: M54.2] Diagnosis: Other muscle spasm[ICD10: M62.838] Diagnosis: Chronic obstructive pulmonary disease, unspecified[ICD10: J44.9] Haylee PIPER DO [facility] CPT-4: 18357 08/11/2018 ([id number]) NURSE/OUTPATIENT VISIT EST Diagnosis: Acute bronchitis, unspecified[ICD10: J20.9] Haylee PIPER DO [facility] CPT-4: 63947 06/23/2018 ([id number]) OFFICE/OUTPATIENT VISIT EST Diagnosis: Acute bronchitis, unspecified[ICD10: J20.9] Columba PIPER DO [facility] CPT-4: 05887 06/17/2018 ([id number]) OFFICE/OUTPATIENT VISIT EST Diagnosis: Acute gastritis without bleeding[ICD10: K29.00] Columba PIPER DO [facility] CPT-4: 60576 06/11/2018 ([id number]) OFFICE/OUTPATIENT VISIT EST Diagnosis: Acute bronchitis, unspecified[ICD10: J20.9] Columba PIPER DO [facility] CPT-4: 51089 05/18/2018 ([id number]) OFFICE/OUTPATIENT VISIT EST Diagnosis: Dizziness and giddiness[ICD10: R42] Diagnosis: Acute bronchitis, unspecified[ICD10: J20.9] Diagnosis: Chronic obstructive pulmonary disease with acute lower respiratory infection[ICD10: J44.0] Columba PIPER DO [facility] CPT-4: 34477 05/17/2018 ([id number]) OFFICE/OUTPATIENT VISIT EST Diagnosis: Primary insomnia[ICD10: F51.01] Diagnosis: Other fatigue[ICD10: R53.83] 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] Diagnosis: Other spondylosis with radiculopathy, 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] Diagnosis: PNEUMOCOCCAL VACCINE[ICD10: Z23] Diagnosis: FLU VACCINE[ICD10: Z23] Haylee MARKHAM [facility] CPT-4: 02650 05/12/2018 OFFICE/OUTPATIENT VISIT EST Diagnosis: Candidal stomatitis[ICD10: B37.0] Columba PIPER DO [facility] CPT-4: 14913 07/20/2017 ([id number]) OFFICE/OUTPATIENT VISIT EST Diagnosis: Candidal stomatitis[ICD10: B37.0] Haylee PIPER DO [facility] CPT-4: 48441 07/07/2017 ([id number]) OFFICE/OUTPATIENT VISIT EST Diagnosis: Localized edema[ICD10: R60.0] Diagnosis: Anemia, unspecified[ICD10: D64.9] Diagnosis: Disorder of kidney and ureter, unspecified[ICD10: N28.9] Diagnosis: FLU VACCINE[ICD10: Z23] Haylee MARKHAM DO [facility] CPT-4: 18718 06/17/2017 ([id number]) OFFICE/OUTPATIENT VISIT EST Diagnosis: Dysuria[ICD10: R30.0] Haylee PIPER DO [facility] CPT-4: 57312 05/21/2017 OFFICE/OUTPATIENT VISIT EST Diagnosis: Encounter for other specified special examinations[ICD10: Z01.89] Diagnosis: Disorder of kidney and ureter, unspecified[ICD10: N28.9] Diagnosis: Anemia, unspecified[ICD10: D64.9] Mayra Arguello TWIN PIPER [facility] CPT-4: 05313 05/19/2017 ([id number]) OFFICE/OUTPATIENT VISIT EST Diagnosis: URI, ACUTE[ICD10: J06.9] Haylee Barahonabasiayoung MATHEWS [facility] CPT-4: 77992 02/24/2017 ([id number]) OFFICE/OUTPATIENT VISIT EST Diagnosis: Hypotension, unspecified[ICD10: I95.9] Diagnosis: Bradycardia, unspecified[ICD10: R00.1] Haylee SCHAFFERMatt ArguellesANA PIPER DO [facility] CPT-4: 63251 01/01/2017 ([id number]) NO CHARGE Diagnosis: Chronic obstructive pulmonary disease with (acute) exacerbation[ICD10: J44.1] Diagnosis: Pneumonia, unspecified organism[ICD10: J18.9] Susie SCHAFFERQUELINE Pro PIPER [facility] CPT-4: 92784 12/22/2016 OFFICE/OUTPATIENT VISIT EST Diagnosis: Pneumonia, unspecified organism[ICD10: J18.9] Diagnosis: Chronic obstructive pulmonary disease with (acute) exacerbation[ICD10: J44.1] Haylee PIPER [facility] CPT- 4: 17892 12/17/2016 OFFICE/OUTPATIENT VISIT EST Diagnosis: Pneumonia, unspecified organism[ICD10: J18.9] Diagnosis: Mild intermittent asthma with (acute) exacerbation[ICD10: J45.21] Diagnosis: Chronic obstructive pulmonary disease with (acute) exacerbation[ICD10: J44.1] Haylee PIPER [facility] CPT- 4: 71981 12/16/2016 ([id number]) OFFICE/OUTPATIENT VISIT EST Diagnosis: Mild intermittent asthma with (acute) exacerbation[ICD10: J45.21] Diagnosis: Pneumonia, unspecified organism[ICD10: J18.9] Haylee PIPER [facility] CPT-4: 03342 12/15/2016 ([id number]) OFFICE/OUTPATIENT VISIT EST Diagnosis: Acute bronchitis, unspecified[ICD10: J20.9] Diagnosis: Unspecified asthma with (acute) exacerbation[ICD10: J45.901] [facility] 07818 12/11/2016 ([id number]) OFFICE/OUTPATIENT VISIT EST Diagnosis: Acute bronchitis, unspecified[ICD10: J20.9] Diagnosis: Unspecified asthma with (acute) exacerbation[ICD10: J45.901] [facility]: 62235 12/10/2016 ([id number]) OFFICE/OUTPATIENT VISIT EST Diagnosis: Chronic obstructive pulmonary disease with (acute) exacerbation[ICD10: J44.1] Diagnosis: Other spondylosis with radiculopathy, 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] Diagnosis: Other intervertebral disc degeneration, 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] Diagnosis: FLU VACCINE[ICD10: Z23] Haylee PARKER [employer] [facility] CPT-4: 01328 07/21/2016 ([id number]) OFFICE/OUTPATIENT VISIT EST Diagnosis: Unspecified open wound of right forearm, initial encounter[ICD10: S51.801A] [facility]: 53891 05/30/2016 ([id number]) OFFICE/OUTPATIENT VISIT EST Diagnosis: Unspecified open wound of right forearm, initial encounter[ICD10: S51.801A] [facility]: 13572 ([id number]) OFFICE/OUTPATIENT VISIT EST 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] Diagnosis: Mixed hyperlipidemia[ICD10: E78.2] Diagnosis: Other intervertebral disc degeneration, 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] Haylee Jungreg HAYLEE Pro [facility] CPT-[facility]: 75189 03/18/2016 OFFICE/OUTPATIENT VISIT EST Diagnosis: Hypotension, unspecified[ICD10: I95.9] Diagnosis: Dizziness and giddiness[ICD10: R42] Haylee FLORES [facility] CPT-4: 25430 10/18/2015 ([id number]) OFFICE/OUTPATIENT VISIT EST Diagnosis: Hypotension, unspecified[ICD10: I95.9] Haylee VAZQUEZ BlaneANA [facility] CPT-4: 35547 10/17/2015 ([id number]) OFFICE/OUTPATIENT VISIT EST Diagnosis: Solitary pulmonary nodule[ICD10: R91.1] Diagnosis: Other spondylosis with radiculopathy, 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] Diagnosis: FLU VACCINE[ICD10: Z23] Haylee KUMARI AlexisCristy KEITH MARKHAM [employer] CPT-4: 10505 06/25/2015 OFFICE/OUTPATIENT VISIT EST Diagnosis: DEPRESSIVE DISORDER NEC[ICD9: 311] Diagnosis: INSOMNIA NOS[ICD9: 780.52] Kat YoungGolden KUMARI Pro URIBE [facility] [facility] CPT-4: 54313 04/25/2015 OFFICE/OUTPATIENT VISIT EST Diagnosis: DEPRESSIVE DISORDER NEC[ICD9: 311] Kat YoungGolden CHUN Pro PARK[facility] [facility] CPT-4: 59300 04/11/2015 ([id number]) OFFICE/OUTPATIENT VISIT EST Diagnosis: MALAISE AND FATIGUE[ICD9: 780.79] Diagnosis: Lumbar degenerative disc disease[ICD9: 722.52] Diagnosis: Leg weakness[ICD9: 729.89] Hayleeromain KUMARI AlexisCristy EMILIA ROLLINSER [facility] [facility] CPT-4: 06196 02/27/2015 ([id number]) OFFICE/OUTPATIENT VISIT EST Diagnosis: Tremor[ICD9: 781.0] Diagnosis: Memory disturbance[ICD9: 780.93] Haylee KUMARI AlexisCristy KEITH [facility] CPT-4: 63813 02/08/2015 ([id number]) OFFICE/OUTPATIENT VISIT NEW Diagnosis: INSOMNIA NOS[ICD9: 780.52] Diagnosis: Lumbar degenerative disc disease[ICD9: 722.52] Diagnosis: Leg weakness[ICD9: 729.89] Diagnosis: DEPRESSIVE DISORDER NEC[ICD9: 311] Diagnosis: Coronary artery disease[ICD9: 414.00] Diagnosis: Peripheral vascular disease[ICD9: 443.9] Haylee Junbasiayoung HAYLEE AlexisCristy NICOLASA [facility] [facility] CPT-4: 82245 01/18/2015 Plan of Care Planned Activity Notes Codes Status Date Visit Diagnosis Plan: Chronic depressive disorder Disc ussion: Change duloxetine to Wellbutrin XL in AM and Escitalopram 10mg q PM Follow Up: 4 weeks ICD-9 : 301.12 ICD-10 : F32.9 01/04/2020 Appointment: Haylee Piper WPtel: [phone] [facility] [facility] [place] TELEMEDICINE 01/04/2020 Patient Education: escitalopram oxalate- OptimizeRX Co upon [id number] https://www.[employer]/Yabidu/resources/getResource/61/68gbo33d-r700-0714-3b Completed 01/04/2020 Patient Education: Wellbutrin XL- OptimizeRX Coupon [id number] https://www.[employer]/Yabidu/resources/getResource/61/h3h6d18o-92xb-0b4y-7v Completed 01/04/2020 Visit Diagnosis Plan: Pancytopenia Discussion: Discuss ed options including hospice Patient has decided that he wants to proceed with oncology/hematology eval. so will try to arrange for that this week Once again discussed bleeding risks and reasons to seek immediate care ICD-9 : 284.19 ICD-10 : D61.818 10/10/2019 Appointment: Haylee Piper WPtel: [address] [place], [place] [id number] LAB 10/10/2019 Appointment: Haylee Piper WPtel: [address] [place], [place] [id number] WORK IN 10/10/2019 Patient Education: Dexilant- OptimizeRX Coupon [id number] https://www.[employer]/Yabidu/resources/getResource/61/73769276-9qr2-6271-rk Completed 10/10/2019 Care Plan: [place]AB[place] : 378[address]-2 Pending 10/06/2019 Care Plan: COMPLETE CBC W/AUTO DIFF WBC LOINC : 54740-7 Pending 10/06/2019 Visit Diagnosis Plan: Chronic obstructive pulmonary di sease, unspecified Discussion: Restart Symbicort Start pulmonary rehab Use oxygen q HS and prn Use SVNs with abuterol at least QID ICD-9 : 496 ICD-10 : J44.9 09/29/2019 Visit Diagnosis Plan: Pancytopenia Discussion: CBC in 1 week Once again discussed hematology consult ICD-9 : 284.19 ICD-10 : D61.818 09/29/2019 Appointment: Haylee Piper WPtel: [address] [place], [place] [id number] Hospital Follow Up 09/29/2019 Visit Diagnosis Plan: Chronic obstructiv e pulmonary disease with (acute) exacerbation Discussion: Direct admit to hospital ICD-9 : 491.21 ICD-10 : J44.1 09/21/2019 Appointment: Haylee Piper WPtel: [address] [place] [address] [place] WORK IN 09/21/2019 Visit Diagnosis Plan: [...] : J44.1 09/20/2019 Appointment: Haylee Piper WPtel: [address] [place] [address] [place] WORK IN 09/20/2019 Visit Diagnosis Plan: COPD with exacerbation Discussio n: Solumedrol 125mg IM now SVNs with duoneb q4hrs Recheck tomorrow ICD-9 : 491.21 ICD-10 : J44.1 09/19/2019 Visit Diagnosis Plan: COPD with lower respiratory infe ction Discussion: Rocephin 1gm IM now Recheck tomorrow ICD-9 : 496 ICD-10 : J44.0 09/19/2019 Appointment: Haylee Piper WPtel: [address] [place] [address] [place] FOLLOW UP 09/19/2019 Appointment: Haylee Piper WPtel: [address] [place], [place] [id number] 09/02/19---moved him to a cancellation spot on [...] : M51.36 09/05/2019 Appointment: Haylee Piper WPtel: [address] [place], [place] [id number] [place] FOLLOW UP 09/05/2019 Patient Education: Lyrica- OptimizeRX Coupon [id number] https://www.[employer]/Yabidu/resources/getResource/61/[email or web address] [email or web address].pdf Completed 09/05/2019 Visit Diagnosis Plan: Vitamin B12 [...] : R26.81 08/29/2019 Appointment: Haylee Piper WPtel: [address] [place], [place] [address] [place] MEDICATION REVIEW 08/29/2019 Appointment: Haylee Piper WPtel: [address] [place] [address] [place] INJECTION 08/15/2019 Appointment: Haylee Piper WPtel: [address] [place] [id number] [place] INJECTION 08/01/2019 Appointment: Haylee Piper WPtel: [address] [place], [place] [phone] [place] INJECTION 07/18/2019 Appointment: Haylee Piper WPtel: [address] [place], [place] [phone] [place] INJECTION 07/04/2019 Appointment: Haylee Piper WPtel: [address] [place], [place] [phone] [place] INJECTION 06/20/2019 Appointment: Haylee Piper WPtel: [address] [place], [place] [id number] [place] INJECTION 06/06/2019 Appointment: Haylee Piper WPtel: [address] [place], [place] [phone] [place] 06/02/19 1340---SENT REFILL OF B12 TO [...] : E53.8 05/23/2019 Appointment: Haylee Piper WPtel: [address] [place] [address] [place] FOLLOW UP 05/23/2019 Appointment: Haylee Piper WPtel: [address] [place], [place] [phone] [place] INJECTION 05/18/2019 Appointment: Haylee Piper WPtel: [address] [place], [place] [phone] [place] INJECTION 05/04/2019 Appointment: [facility]Ptel[facility] [address] [facility] [place] [facility]JE[facility] 04/27/2019 Appointment: Haylee Piper WPtel: [address] [place], [place] [phone] [place] INJECTION 04/20/2019 Appointment: Haylee Piper WPtel: [address] [place], [place] [phone] [place] INJECTION 04/06/2019 Appointment: Haylee Piper WPtel: [address] [place], [place] [phone] [place] INJECTION 03/23/2019 Visit Diagnosis Plan: Other [...] : D51.9 03/17/2019 Appointment: Haylee Piper WPtel: [address] [place], [place] [phone] [place] lm FOLLOW UP 03/17/2019 Care Plan: Referral Order SNOMED-CT : 30 [id number] Pending 03/17/2019 Appointment: Haylee Piper WPtel: [address] [place], [place] [address] [place] INJECTION 03/14/2019 Appointment: Haylee Piper WPtel: [address] [place] [address] [place] INJECTION 03/07/2019 Appointment: Haylee Piper WPtel: [address] [place], [place] [phone] [place] INJECTION 02/24/2019 Appointment: Haylee Piper WPtel: [facility] US INJECTION 02/16/2019 Visit Diagnosis Plan: Chronic [...] : R53.83 02/14/2019 Appointment: Haylee Piper WPtel: [address] [place], [place] [phone] US FOLLOW UP 02/14/2019 Visit Diagnosis Plan: [...] : J44.9 11/11/2018 Appointment: Haylee Piper WPtel: [address] [place], [place] [phone] [place] FOLLOW UP 11/11/2018 Visit Diagnosis Plan: [...] ICD-10 : J20.9 10/29/2018 Appointment: Chula Balbuena [address] [place], [place] [phone] ACUTE ILLNESS 10/29/2018 Patient Education: prednisone- OptimizeRX Coupon [id number] https://www.Yabidu.[employer]/samplemd/resources/getResource/61/941k225z-0d38-7fc5-92 Completed 10/29/2018 Visit Diagnosis Plan: Acute bronchitis [...] ICD-10 : J44.9 10/26/2018 Appointment: Chula Balbuena [address] [place], [place] [phone] [place] Schedule medicare annual wellness ACUTE ILLNESS 10/26/2018 Patient Education: doxycycline hyclate- OptimizeRX Cou brooke [id number] https://www.Yabidu.[employer]/samplemd/resources/getResource/61/863285j0-x10n-9889-0j Completed 10/26/2018 Visit Diagnosis Plan: Chronic obstructive [...] : M54.2 08/11/2018 Appointment: Haylee Piper WPtel: [address] [facility] FOLLOW UP 08/11/2018 Appointment: Haylee Piper WPtel: [address] [facility] US INJECTION 06/23/2018 Patient Education: Patient Medication [...] : J20.9 06/17/2018 Appointment: Columba Curtis [address] ACUTE ILLNESS 06/17/2018 Patient Education: Patient [...] : K29.00 06/11/2018 Appointment: Columba Curtis 504 [facility] ACUTE ILLNESS 06/11/2018 Patient Education: Patient Medication [...] ICD-10 : J20.9 05/18/2018 Appointment: Columba Curtis [address] [place], [place] [phone] FOLLOW UP 05/18/2018 Patient Education: Patient Medication [...] given in office due to clinical s/s. zpack prescribed to start tomorrow. instructed to use albuterol treatments every 4 hours when at home and to wear oxygen at all times. increase fluid intake. follow up tomorrow for recheck of symptoms. 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 Discussion: Following [...] : F51.01 05/12/2018 Appointment: Haylee Piper WPtel: [address] [place] [address] US FOLLOW UP 05/12/2018 Patient Education: Patient Medication Summary Completed 05/12/2018 Appointment: Haylee Piper WPtel: [address] [place] [address] US CANCELED 09/21/2017 Visit Diagnosis Plan: Candidal [...] ICD-10 : B37.0 07/20/2017 Appointment: Columba Curtis [address] [place] [address] ACUTE ILLNESS 07/20/2017 Patient Education: Patient Medication [...] : B37.0 07/07/2017 Appointment: Haylee Piper WPtel: [address] [place] [address] US FOLLOW UP 07/07/2017 Patient Education: Patient Medication Summary Completed 07/07/2017 Visit Diagnosis Plan: Localized edema Discussion: Star t lasix 20mg with potassium every other day and check Chem 7 in 2 weeks Flu shot given ICD-9 : 782.3 ICD-10 : R60.0 06/17/2017 Appointment: Haylee Piper WPtel: [address] [place] [address] US FOLLOW UP 06/17/2017 Patient Education: Patient Medication Summary Completed 06/17/2017 Appointment: Haylee Piper WPtel: [facility] [facility] 05/21/2017 Patient Education: Patient Medication Summary Completed 05/21/2017 Appointment: Haylee Piper WPtel: [address] [place], [place] [phone] RESCHEDULED 05/20/2017 Visit Plan: Plan labs within the week CB C, CMP to check anemia, kidney status RTC in [address] Piper and for any worsening before that time. 05/19/2017 Appointment: Mayra Arguello WPtel: [address] [place] [address] Hospital Follow Up 05/19/2017 Patient Education: Patient [...] Rest, Fluids... 02/24/2017 Appointment: Haylee Piper WPtel: [address] [place], [place] [phone] WORK IN 02/24/2017 Patient Education: Patient Medication [...] : R00.1 01/01/2017 Appointment: Haylee Piper WPtel: [address] [place], [place] [phone] Hospital Follow Up 01/01/2017 Patient Education: Patient Medication Summary Completed 01/01/2017 Visit Diagnosis Plan: Chronic obstructiv e pulmonary disease with (acute) exacerbation Discussion: Exam, vitals and patient fee ling better is reassuring Finish rxs previously given Continue nebs PRN Follow up PRN ICD-9 : 491.21 ICD-10 : J44.1 12/22/2016 Appointment: Siav Susie [address] [place], [place] [phone] FOLLOW UP 12/22/2016 Patient Education: Patient Medication [...] : J44.1 12/17/2016 Appointment: Haylee Piper WPtel: [address] [place], [place] [phone] [place] WORK IN 12/17/2016 Patient Education: Patient [...] : J18.9 12/16/2016 Appointment: Haylee Piper WPtel: [facility] WORK IN 12/16/2016 Patient Education: Patient Medication [...] : J45.21 12/15/2016 Appointment: Haylee Piper WPtel: [facility] WORK IN 12/15/2016 Patient Education: Patient Medication Summary Completed 12/15/2016 Visit Diagnosis Plan: Acute bronchitis, unspecified Di scussion: Lungs do sound more coarse today and he is feeling somewhat worse Will proceed with cbc and cxr - ordered stat so to hopefully see before the end of the day Albuterol neb solution sent out as well Will call with results [facility] ICD-9 : 466.0 ICD-10 : J20.9 12/11/2016 Appointment: Susie Paniagua [address] [place], [place] [phone] FOLLOW UP 12/11/2016 Patient Education: Patient Medication Summary Completed 12/11/2016 Care Plan: CHEST X-RAY 2VW FRONTAL&LATL LOINC : 53052-6 Pending 12/11/2016 Care Plan: CBC Pending 12/11/2016 Visit Diagnosis Plan: Acute bronchitis, unspecified Di scussion: Injection in clinic today Continue proair Rxs as above Vicks, humidifier, etc Recheck tomorrow in clinic Will get CXR and labs if not starting to improve ICD-9 : 466.0 ICD-10 : J20.9 12/10/2016 Appointment: Susie Paniagua [address] [place], [place] [phone] ACUTE ILLNESS 12/10/2016 Patient Education: Patient Medication Summary Completed 12/10/2016 Visit Plan: Flu shot given Breo 100mcg 1 p BID for 2weeks with proair prn Notify if worsening or persists Fwup first part of October and sooner with needed 07/21/2016 Appointment: Haylee Piper WPtel: [phone] [facility] 07/17 confirmed~sl FOLLOW UP 07/21/2016 Patient Education: Patient Medication Summary Completed 07/21/2016 Visit Plan: GAUTAM Paniagua---wear esteban ssing through weekend and then take off to leave open to air 05/30/2016 Appointment: Haylee Piper WPtel: [address] [place], [place] [address] [place] Consult 05/30/2016 Patient Education: Patient Medication [...] tdap updated 05/29/2016 Appointment: Susie Paniagua [phone] [facility] ACUTE ILLNESS 05/29/2016 Patient Education: Patient Medication Summary Completed 05/29/2016 Visit Plan: Continue current meds Patien t sees Dr. Eugene next week to see if would be surgical candidate 03/18/2016 Appointment: Haylee Piper WPtel: [address] [place], [place] [phone] 03/17 confirmed ~sl FOLLOW UP 03/18/2016 Patient Education: Patient Medication Summary Completed 03/18/2016 Visit Plan: Continue to hold atenolol an d monitor BP Take 1/2 of atenolol if BP greater then 150/90 8-10 oz of gatorade daily for next week and hydrate unless develops edema BP check 1week 10/18/2015 Appointment: Haylee Piper WPtel: [address] [place], [place] [phone] FOLLOW UP 10/18/2015 Patient Education: Patient Medication Summary Completed 10/18/2015 Visit Plan: Hold atenolol Hydrate, rest Refuses hospital but agrees will go to [facility] if worsens Recheck tomorrow Check CBC, CMP, CRP now 10/17/2015 Appointment: Haylee Piper WPtel: [address] [place], [place] [phone] [place] WORK IN 10/17/2015 Patient Education: Patient Medication Summary Completed 10/17/2015 Visit Plan: Check CT scan of lungs November 18 Change proair to ventolin Fwup with Dr. Kilgore at end of month 10/10/2015 Appointment: Haylee Piper WPtel: [address] [place], [place] [phone] 10/09 confirmed~lb FOLLOW UP 10/10/2015 Patient Education: Patient Medication Summary Completed 10/10/2015 Visit Plan: Obtain CT scan of chest resu lts Discussed that will likely need repeat scan pending reviewing above results but we will notify him once CT scan results reviewed 08/30/2015 Appointment: Haylee Piper WPtel: [address] [place], [place] [phone] 08/29 appt confirmed cn Hospital Follow Up 08/30 Patient Education: Patient Medication Summary Completed 08/30/2015 Visit Plan: Continue dexilant and add Pe pcid 40mg q HS Discussed may need EGD Update thyroid US Flu shot given 06/25/2015 Appointment: Haylee Piper WPtel: [address] [place], [place] [phone] 06/22 confirmed ~sl FOLLOW UP 06/25/2015 Patient Education: Patient Medication Summary Completed 06/25/2015 Visit Plan: Continue Cymbalta at 120 mg PO daily Follow-up in 6 weeks Encouraged finding interest in a hobbie such as reading 04/25/2015 Appointment: Kat Carmona WPtel: [address] [place], [place] [phone] [place] FOLLOW UP 04/25/2015 Patient Education: Patient Medication Summary Completed 04/25/2015 Visit Plan: Increase Cymbalta to 120 mg PO daily Follow-up [place] [address] Piper 04/11/2015 Appointment: Kat Carmona WPtel: [address] [place], [place] [phone] 04/09/2015 spoke with patient to make appointment FOLLOW UP 04/11/2015 Patient Education: Patient Medication Summary Completed 04/11/2015 Visit Plan: Continue Cymbalta, Neurontin Look out for tremor Discussed B12 supplement Given sample of Metanx 02/27/2015 Appointment: Haylee Piper [facility]Ptel: [phone] [facility] 02/26 appt confirmed cn FOLLOW UP 02/28/20 [...] tremors persist 02/08/2015 Appointment: Haylee Piper WPtel: [facility] [facility] [facility] 02/08/2015 Patient Education: Patient Medication Summary Completed 02/08/2015 Appointment: Haylee Piper WPtel: [phone] [facility] [place] NEW PATIENT 01/18/2015 Patient Education: Patient Medication Summary Completed 01/18/2015 Patient Education: [facility] - Saving [employer] - Cymbalta - 18+ - Dynamic Portal ID Completed 01/18/2015 Referral: Vernon Rajput WPtel: [facility] [address] Referral Appointment Requested Instructions Comment . Plan [...] Refuses hospital but agrees will go to [facility] if worsens Recheck tomorrow Check CBC, CMP, CRP now . Check CT scan of lungs November 18 Change proair to [facility] with Dr. Kilgore at end of month [...]
--- OUTSIDE RECORDS SUMMARY | 2020-02-05 15:01 | XMS REPORT | CCD ---
Author Author Andrea Piper D.O. [facility] Organization [facility] Address [address] [place] [address] Phone Care Team Providers Care Director Loan Name Role Phone Haylee Piper D.O. PP Unavailable CCM Unavailable Summary Purpose Interface Exchange Insurance Providers Payer name Policy type / Coverage type Covered constitution party ID Effective Begin Date Effective End Date WPS MEDICARE PART B [place] Medicare Part B [id number] Unknown Bankers [place] Medicare Part B [id number] Unknown Family history Mother Diagnosis Age At Onset Breast cancer Unknown Brother Diagnosis Age At Onset Hypertension Unknown Grandfather Diagnosis Age At Onset Myocardial infarction Unknown Social History Social History Element Codes Description Effective Dates Tobacco history SNOMED CT: 863128587 Never smoker 05/18/2015 Marital status Unknown 01/18/2015 Number of children Unknown 3 01/18/2015 Employment Unknown Retired 01/18/[address]: 972200972 Never drinks alcohol 2014 Has the patient [...] R42 10/17/2015 Active 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: [...] Start Date Stop Date Status Fill Instructions escitalopram 10 mg tablet RxNorm: 382110 1 Tablet(s) Or al QPM for mood--replaces duloxetine 01/04/2020 02/03/2020 Active Zofran 8 mg tablet RxNorm: 238865 1 Tablet(s) Oral as needed fo r nausea 01/04/2020 No Stop Date Active Wellbutrin XL 150 mg 24 hr tablet, extended release RxNorm: 510241 1 Tablet(s) Oral QAM replaces duloxetine 01/04/2020 02/03/2020 Active baclofen 20 mg tablet RxNorm: 027140 TAKE ONE TABLET BY MOUTH EVERY NIGHT AT BEDTIME FOR MUSCLE SPASMS AND TAKE ONE TABLET EVERY MORNING NEEDED 01/02/2020 No Stop Date Active Dexilant 60 mg capsule, delayed release RxNorm: 049729 TAKE ONE CAPSULE BY MOUTH DAILY 12/14/2019 No Stop Date Active Cymbalta 60 mg capsule,delayed release RxNorm: 437721 2 Capsule (s) Oral QD 10/24/2019 01/03/2020 Inactive Dexilant 60 mg capsule, delayed release RxNorm: 775215 TAKE ONE CAPSULE BY MOUTH DAILY 09/19/2019 2019 Inactive Lyrica 50 mg capsule RxNorm: 043407 2 Capsule(s) Oral Q PM for 3 days then 1 po q PM for 3 days then stop 09/05/2019 10/09/2019 Inactive Lyrica 150 mg capsule RxNorm: 611683 1 Capsule(s) Oral every ni ght at bedtime 09/05/2019 09/05/2019 Inactive metoprolol succinate ER 100 mg tablet,extended release 24 hr RxNorm: 322457 1 Tablet(s) Oral QD 08/29/2019 11/27/2019 Inactive hydrocodone 7.5 mg-acetaminophen 325 mg tablet RxNorm: 98026 5 1 Tablet(s) Oral Q4H as needed for pain 08/15/2019 08/21/2019 Inactive Lyrica 150 mg capsule RxNorm: 815603 TAKE ONE CAPSULE BY MOUTH TWICE A DAY 08/11/2019 09/04/2019 Inactive baclofen 20 mg tablet RxNorm: 645192 TAKE ONE TABLET BY MOUTH EVERY NIGHT AT BEDTIME FOR MUSCLE SPASMS AND TAKE ONE TABLET EVERY MORNING NEEDED 08/10/2019 01/01/2020 Inactive Dexilant 60 mg capsule, delayed release RxNorm: 258411 TAKE ONE CAPSULE BY MOUTH DAILY 07/19/2019 09/18/2019 Inactive Cymbalta 60 mg capsule,delayed release RxNorm: 171734 T LASHAUN TWO CAPSULES BY MOUTH DAILY 07/06/2019 10/23/2019 Inactive cyanocobalamin (vit B-12) 1,000 mcg/mL injection solution Rx Norm: 456027 1 Milliliter(s) Intramuscular every two weeks 06/02/2019 06/02/2019 Inac tive cyanocobalamin (vit B-12) 1,000 mcg/mL injection solution Rx Norm: 517203 1 Milliliter(s) Intramuscular every two weeks 05/23/2019 06/01/2019 Inac tive Dexilant 60 mg capsule, delayed release RxNorm: 007816 TAKE ONE CAPSULE BY MOUTH DAILY 05/19/2019 07/17/2019 Inactive Lyrica 150 mg capsule RxNorm: 811471 1 Capsule(s) PO BID 05/11/2019 1 10/09/2018 Inactive Cymbalta 60 mg capsule,delayed release RxNorm: 214201 2 Capsule (s) PO QD 04/04/2019 07/02/2019 Inactive cyanocobalamin (vit B-12) 1,000 mcg/mL injection solution Rx Norm: 808798 1 Milliliter(s) IM QW 03/17/2019 05/22/2019 Inactive Lyrica 150 mg capsule RxNorm: 467927 TAKE ONE CAPSULE BY MOUTH TWICE A DAY 03/08/2019 03/09/2019 Inactive cyanocobalamin (vit B-12) 1,000 mcg/mL injection solution Rx Norm: 307024 1 Milliliter(s) IM QW 02/16/2019 03/16/2019 Inactive Lyrica 150 mg capsule RxNorm: 045670 TAKE ONE CAPSULE BY MOUTH TWICE A DAY 02/08/2019 03/08/2019 Inactive Dexilant 60 mg capsule, delayed release RxNorm: 367819 1 Capsul e(s) PO QD 02/08/2019 05/08/2019 Inactive Dexilant 60 mg capsule, delayed release RxNorm: 536384 TAKE ONE CAPSULE BY MOUTH DAILY 01/03/2019 02/08/2019 Inactive Lyrica 150 mg capsule RxNorm: 021901 1 Capsule(s) PO BID 01/03/2019 0 02/08/2019 Inactive Cymbalta 60 mg capsule,delayed release RxNorm: 242932 T LASHAUN TWO CAPSULES BY MOUTH DAILY 12/27/2018 04/04/2019 Inactive Dexilant 60 mg capsule, delayed release RxNorm: 198681 TAKE ONE CAPSULE BY MOUTH DAILY 12/07/2018 01/02/2019 Inactive prednisone 20 mg tablet RxNorm: 755643 Take 3 tabs by m outh for 3 days, then 2 tabs by mouth for 3 days, then 1 tab by mouth for 3 days Take 2 tabs for 10/29/2018 11/07/2018 Inactive doxycycline hyclate 100 mg tablet RxNorm: 1202695 1 Tablet(s) PO BI D 10/26/2018 11/04/2018 Inactive doxycycline hyclate 100 mg tablet RxNorm: 2664520 1 Tablet(s) PO BI D 10/26/2018 10/25/2018 Inactive Dexilant 60 mg capsule, delayed release RxNorm: 257816 TAKE ONE CAPSULE BY MOUTH DAILY 10/04/2018 12/06/2018 Inactive Lyrica 150 mg capsule RxNorm: 345721 TAKE ONE CAPSULE BY MOUTH TWICE A DAY 10/04/2018 11/02/2018 Inactive baclofen 20 mg tablet RxNorm: 407655 1 Tablet(s) PO QHS for muscle spasm and q AM prn 08/11/2018 08/09/2019 Inactive Lyrica 150 mg capsule RxNorm: 852545 1 Capsule(s) PO BID 08/06/2018 0 10/04/2018 Inactive Dexilant 60 mg capsule, delayed release RxNorm: 274628 TAKE ONE CAPSULE BY MOUTH DAILY 07/07/2018 10/03/2018 Inactive Cymbalta 60 mg capsule,delayed release RxNorm: 752884 T LASHAUN TWO CAPSULES BY MOUTH DAILY 06/28/2018 12/24/2018 Inactive prednisone 20 mg tablet RxNorm: 638932 1 Tablet(s) PO BID 06/17/2018 06/21/2018 Inactive Zithromax Z-Osman 250 mg tablet RxNorm: 623624 Tablet(s) PO take as directed 06/17/2018 08/10/2018 Inactive Flagyl 500 mg tablet RxNorm: 793377 1 Tablet(s) PO BID 06/11/2018 Inactive Cipro 250 mg tablet RxNorm: 886615 1 Tablet(s) PO BID 06/11/201805/31 Inactive atenolol 50 mg tablet RxNorm: 685896 1 Tablet(s) PO BID 05/31/2018 Inactive albuterol sulfate 2.5 mg/3 mL (0.083 %) solution for n ebulization RxNorm: 816904 3 Milliliter(s) INH Q4H as needed 05/17/2018 No Stop Date Active Zithromax Z-Osman 250 mg tablet RxNorm: 680085 Tablet(s) PO take as directed 05/17/2018 06/10/2018 Inactive Lyrica 150 mg capsule RxNorm: 061904 1 Capsule(s) PO BID 05/12/2018 1 10/07/2017 Inactive hydrocodone 7.5 mg-acetaminophen 325 mg tablet RxNorm: 61931 5 1 Tablet(s) PO Q4H as needed for pain 05/12/2018 05/18/2018 Inactive Cymbalta 60 mg capsule,delayed release RxNorm: 025544 T LASHAUN TWO CAPSULES BY MOUTH DAILY 04/01/2018 04/04/2018 Inactive Lyrica 100 mg capsule RxNorm: 031424 Capsule(s) TAKE ON E CAPSULE BY MOUTH TWICE A DAY 03/01/2018 05/11/2018 Inactive Dexilant 60 mg capsule, delayed release RxNorm: 710250 1 Capsul e(s) PO QD 01/06/2018 07/04/2018 Inactive atenolol 50 mg tablet RxNorm: 293591 1 Tablet(s) PO BID 12/30/2017 Inactive Lyrica 100 mg capsule RxNorm: 257743 Capsule(s) TAKE ON E CAPSULE BY MOUTH TWICE A DAY 12/30/2017 02/26/2018 Inactive Cymbalta 60 mg capsule,delayed release RxNorm: 249166 2 Capsule (s) PO QD 12/30/2017 03/29/2018 Inactive ProAir HFA 90 mcg/actuation aerosol inhaler RxNorm: 281319 INHALE 2 PUFFS FOUR TIMES A DAY 11/12/2017 01/25/2018 Inactive Cymbalta 60 mg capsule,delayed release RxNorm: 249815 2 Capsule (s) PO QD 10/06/2017 12/30/2017 Inactive Lyrica 100 mg capsule RxNorm: 717954 TAKE ONE CAPSULE BY MOUTH TWICE A DAY 09/28/2017 10/26/2017 Inactive Lyrica 100 mg capsule RxNorm: 268493 1 Capsule(s) PO BID 08/26/2017 0 09/28/2017 Inactive Zithromax Z-Osman 250 mg tablet RxNorm: 511806 Tablet(s) PO As Di rected 08/07/2017 05/11/2018 Inactive Diflucan 150 mg tablet RxNorm: 687362 1 Tablet(s) PO Q72H 07/20/2017 05/11/2018 Inactive nystatin 100,000 unit/mL oral suspension RxNorm: 822864 5 Milliliter(s) PO QID swish and spit for 2 weeks 07/07/2017 07/20/2017 Inactive fluconazole 100 mg tablet RxNorm: 266886 1 Tablet(s) PO QD 07/07/20 07/13/2017 Inactive Dexilant 60 mg capsule, delayed release RxNorm: 381110 1 Capsul e(s) PO QD 07/01/2017 01/06/2018 Inactive Cymbalta 60 mg capsule,delayed release RxNorm: 405060 2 Capsule (s) PO QD 07/01/2017 09/28/2017 Inactive atenolol 50 mg tablet RxNorm: 264455 1 Tablet(s) PO BID 06/17/2017 Inactive atenolol 50 mg tablet RxNorm: 822133 1 Tablet(s) PO BID 06/17/2017 Inactive atenolol 25 mg tablet RxNorm: 374655 1 Tablet(s) PO QD 06/16/2017 Inactive Cipro 250 mg tablet RxNorm: 708939 1 Tablet(s) PO BID 05/26/201705/02 Inactive Cipro 250 mg tablet RxNorm: 589141 1 Tablet(s) PO BID 05/26/201710/2016 Inactive Cymbalta 60 mg capsule,delayed release RxNorm: 902368 2 Capsule (s) PO QD 04/02/2017 07/01/2017 Inactive Zanaflex 4 mg tablet RxNorm: 622929 1 Tablet(s) PO BID as neede d for spasm 03/18/2017 05/11/2018 Inactive methocarbamol 750 mg tablet RxNorm: 576535 1 Tablet(s) PO TID as needed for muscle spasm 03/17/2017 03/17/2017 Inactive Cymbalta 60 mg capsule,delayed release RxNorm: 985865 T LASHAUN TWO CAPSULES BY MOUTH DAILY 01/01/2017 04/02/2017 Inactive atenolol 25 mg tablet RxNorm: 995349 1 Tablet(s) PO QD 01/01/2017 Inactive Dexilant 60 mg capsule, delayed release RxNorm: 712075 1 Capsul e(s) PO QD 12/24/2016 07/01/2017 Inactive prednisone 20 mg tablet RxNorm: 764853 1 Tablet(s) PO BID 12/17/2016 12/23/2016 Inactive doxycycline hyclate 100 mg capsule RxNorm: 9039950 1 Capsule(s) PO BID 12/11/2016 12/20/2016 Inactive doxycycline hyclate 100 mg capsule RxNorm: 8260200 1 Capsule(s) PO BID 12/11/2016 12/10/2016 Inactive albuterol sulfate 2.5 mg/3 mL (0.083 %) solution for n ebulization RxNorm: 932605 3 Milliliter(s) INH Q4H as needed 12/11/2016 05/16/2018 Inactiv e guaifenesin 400 mg tablet RxNorm: 015418 1 Tablet(s) PO QID 017 05/11/2018 Inactive Tessalon Perles 100 mg capsule RxNorm: 385589 1 Capsule (s) PO TID as needed for cough 12/10/2016 12/31/2016 Inactive ProAir HFA 90 mcg/actuation aerosol inhaler RxNorm: 941889 INHALE 2 PUFFS FOUR TIMES A DAY 08/12/2016 11/12/2017 Inactive Dexilant 60 mg capsule, delayed release RxNorm: 970773 TAKE ONE CAPSULE BY MOUTH DAILY 06/16/2016 12/24/2016 Inactive Cymbalta 60 mg capsule,delayed release RxNorm: 764536 2 Capsule (s) PO QD 06/16/2016 12/12/2016 Inactive zolpidem 10 mg tablet RxNorm: 260079 TAKE ONE TABLET BY MOUTH A T BEDTIME 03/10/2016 05/28/2016 Inactive Dexilant 60 mg capsule, delayed release RxNorm: 095507 TAKE ONE CAPSULE BY MOUTH DAILY 02/06/2016 06/04/2016 Inactive Cymbalta 60 mg capsule,delayed release RxNorm: 135053 2 Capsule (s) PO QD 11/19/2015 05/16/2016 Inactive zolpidem 10 mg tablet RxNorm: 790995 TAKE ONE TABLET BY MOUTH A T BEDTIME 10/02/2015 03/10/2016 Inactive Dexilant 60 mg capsule, delayed release RxNorm: 706811 TAKE ONE CAPSULE BY MOUTH DAILY 08/28/2015 01/24/2016 Inactive ProAir HFA 90 mcg/actuation aerosol inhaler RxNorm: 699841 2 Pu ff(s) INH QID 06/25/2015 10/22/2015 Inactive famotidine 40 mg tablet RxNorm: 991455 1 Tablet(s) PO QHS 06/25/2015 10/09/2015 Inactive Dexilant 60 mg capsule, delayed release RxNorm: 689471 1 Capsul e(s) PO QD 06/07/2015 08/27/2015 Inactive zolpidem 10 mg tablet RxNorm: 195584 TAKE ONE TABLET BY MOUTH EVERY NIGHT AT BEDTIME 06/01/2015 10/03/2015 Inactive Cymbalta 60 mg capsule,delayed release RxNorm: 588682 2 Capsule (s) PO QD 05/10/2015 11/19/2015 Inactive Cymbalta 60 mg capsule,delayed release RxNorm: 348196 2 Capsule (s) PO QD 04/11/2015 05/10/2015 Inactive zolpidem 10 mg tablet RxNorm: 790972 TAKE ONE TABLET BY MOUTH A T BEDTIME 04/06/2015 06/01/2015 Inactive zolpidem 10 mg tablet RxNorm: 798508 TAKE ONE TABLET BY MOUTH A T BEDTIME 03/05/2015 04/06/2015 Inactive zolpidem 10 mg tablet RxNorm: 210532 1 Tablet(s) PO QHS as need ed for sleep 02/27/2015 03/04/2015 Inactive Cymbalta 60 mg capsule,delayed release RxNorm: 254380 1 Capsule (s) PO QD 01/18/2015 04/10/2015 Inactive [AttnRPh: Saving clare ly/adjudicate RxGRP:[id number] RxBIN:[id number] RxPCN: ID#:[id number]] Trazadone 75mg Tablet RxNorm: 1-2 Tablet(s) PO QHS as ne eded for sleep 01/18/2015 02/26/2015 Inactive Singulair 10 mg tablet RxNorm: 999506 1 Tablet(s) PO QD No Start Date Active Tylenol Extra Strength 500 mg tablet RxNorm: 199936 Tablet(s) P O as needed No Start Date Active methocarbamol 750 mg tablet RxNorm: 814652 Tablet(s) PO as needed N o Start Date Active Vitamin D3 1,000 unit capsule RxNorm: 614641 1 Capsule(s) PO BID No Start Date Active aspirin 81 mg tablet RxNorm: 150363 1 Tablet(s) PO QD No Start Date Active Symbicort 160 mcg-4.5 mcg/actuation HFA aerosol inhaler RxNo rm: 6591590 2 Puff(s) INH BID No Start Date Active atorvastatin 40 mg tablet RxNorm: 638769 1 Tablet(s) PO QD No Start D ate Active Trazadone 100 100mg mg Tablet RxNorm: 1-2 Tablet(s) PO QHS No Start Date 01/17/2015 Inactive Fish Oil 1,000 mg capsule RxNorm: 1 Capsule(s) PO QD No Start Date 05/16/2018 Inactive multivitamin with iron tablet RxNorm: 1 Tablet(s) PO QD No Sta rt Date 05/16/2018 Inactive Spiriva Respimat inhalation RxNorm: 579026 inhalation No Start Date 1 09/05/2016 Inactive atenolol 25 mg tablet RxNorm: 302307 1 Tablet(s) PO BID No Start Da te 12/31/2016 Inactive Spiriva Respimat 2.5 mcg/actuation solution for inhalation R xNorm: 4307030 2 Puff(s) INH QD No Start Date 05/11/2018 Inactive Zithromax Z-Osman 250 mg tablet RxNorm: 149930 Tablet(s) PO As Di rected No Start Date 08/06/2017 Inactive Zanaflex 4 mg tablet RxNorm: 585911 1 Tablet(s) PO BID as neede d for spasm No Start Date 03/17/2017 Inactive gabapentin 800 mg tablet RxNorm: 872274 1 Tablet(s) PO TID No Start Date 03/17/2016 Inactive losartan 100 mg tablet RxNorm: 678556 1 Tablet(s) PO QD No Start Da te 12/31/2016 Inactive cyclobenzaprine 10 mg tablet RxNorm: 956524 1 Tablet(s) PO TID as needed for muscle spasm No Start Date 05/11/2018 Inactive potassium chloride ER 10 mEq tablet,extended release RxNorm: 313285 Tablet(s) PO as needed No Start Date 01/04/2020 Inactive gabapentin 300 mg capsule RxNorm: 702856 1 Capsule(s) PO TID No Sta rt Date 10/09/2015 Inactive furosemide 40 mg tablet RxNorm: 864086 Tablet(s) PO as needed No St art Date 01/04/2020 Inactive ferrous sulfate 325 mg (65 mg iron) tablet RxNorm: 179776 1 Tab let(s) PO QD No Start Date 09/04/2019 Inactive Dexilant 60 mg capsule, delayed release RxNorm: 471310 1 Capsul e(s) PO QD No Start Date 06/06/2015 Inactive amitriptyline 25 mg tablet RxNorm: 789156 1-2 Tablet(s) PO QHS as needed for sleep --replaces ambien No Start Date 07/20/2016 Inactive hydrocodone 7.5 mg-acetaminophen 325 mg tablet RxNorm: 73451 5 1 Tablet(s) PO TID No Start Date 05/11/2018 Inactive Lyrica 75 mg capsule RxNorm: 939209 1 Capsule(s) PO BID No Start Da te 05/11/2018 Inactive gabapentin 300 mg capsule RxNorm: 330604 1 Capsule(s) PO QHS No Sta rt Date 02/07/2015 Inactive Lyrica 50 mg capsule RxNorm: 427669 1 Capsule(s) PO BID No Start Da te 07/20/2016 Inactive zolpidem 10 mg tablet RxNorm: 157284 1 Tablet(s) PO QHS No Start Da te 02/07/2015 Inactive citalopram 40 mg tablet RxNorm: 402809 1 Tablet(s) PO QD No Start D ate 01/17/2015 Inactive hydrocodone 7.5 mg-acetaminophen 325 mg tablet RxNorm: 05269 5 1 Tablet(s) PO Q6H as needed for pain No Start Date 03/17/2016 Inactive losartan 100 mg tablet RxNorm: 122421 1/2 Tablet(s) PO QD No Start Date 05/18/2017 Inactive cyanocobalamin (vit B-12) 1,000 mcg/mL injection solution Rx Norm: 516686 1 Milliliter(s) IM QW No Start Date 02/15/2019 Inactive ProAir HFA 90 mcg/actuation aerosol inhaler RxNorm: 3251175 2 Pu ff(s) INH TID No Start Date 06/24/2015 Inactive methocarbamol 750 mg tablet RxNorm: 215847 1 Tablet(s) PO TID as needed for [...] Item Code Result Date S ervice Location [facility] [id number] Neutrophil 27 % 10/11/2019 Unknown [facility] [id number] BAND 0 % 10/11/2019 Unknown [facility] [id number] Lymphocyte 59 % 10/11/2019 Unknown [facility] [id number] Monocyte 13 % 10/11/2019 Unknown [facility] [id number] Eosinophil 1 % 10/11/2019 Unknown [facility] [id number] Basophil 0 % 10/11/2019 Unknown [facility] [id number] Platelet Est Decreased 10/11/2019 Unkno wn [facility] [id number] Large Plts Present 10/11/2019 Unknown COMPLETE BLOOD COUNT [id number] WBC 2.4 10e9/L 10/10/19 20 Unknown COMPLETE BLOOD COUNT [id number] RBC 3.15 10e12/L 2019 Unknown COMPLETE BLOOD COUNT [id number] HEMOGLOBIN 11.4 g/dL 10/10/19 20 Unknown COMPLETE BLOOD COUNT [id number] HEMATOCRIT 35.0 % 10/10/19 20 Unknown COMPLETE BLOOD COUNT [id number] MCV 111.1 fL 0 Unknown COMPLETE BLOOD COUNT [id number] MCH 36.2 pg 0 Unknown COMPLETE BLOOD COUNT [id number] MCHC 32.6 g/dL 0 Unknown COMPLETE BLOOD COUNT [id number] PLATELET COUNT 18 10e9/L 10/01 Unknown COMPLETE BLOOD COUNT [id number] Mean Plt Volume 11.3 fL 05/2020 Unknown COMPLETE BLOOD COUNT [id number] Neut Auto 27.9 % 0 Unknown COMPLETE BLOOD COUNT [id number] Lymph Auto 58.5 % 10/10/19 20 Unknown COMPLETE BLOOD COUNT [id number] Early Auto 12.0 % 0 Unknown COMPLETE BLOOD COUNT [id number] RDW 14.0 % 0 Unknown COMPLETE BLOOD COUNT [id number] Eos Auto 0.4 % 0 Unknown COMPLETE BLOOD COUNT [id number] Baso Auto 1.2 % 0 Unknown COMPLETE BLOOD COUNT [id number] Neutrophil Abs 0.67 10e9/L Unknown COMPLETE BLOOD COUNT [id number] Lymphocyte Abs 1.40 10e9/L Unknown COMPLETE BLOOD COUNT [id number] Monocyte Abs 0.29 10e9/L 10/01 Unknown COMPLETE BLOOD COUNT [id number] Eosinophil Abs 0.01 10e9/L Unknown COMPLETE BLOOD COUNT [id number] RDW-SD 54.2 fL 0 Unknown COMPLETE BLOOD COUNT [id number] Basophil Abs 0.03 10e9/L 10/01 Unknown NCDF [id number] Neutrophil 32 % 08/30/2019 Unknown NCDF [id number] BAND 4 % 08/30/2019 Unknown NCDF [id number] Lymphocyte 43 % 08/30/2019 Unknown NCDF [id number] Monocyte 20 % 08/30/2019 Unknown NCDF 7703707 Eosinophil 1 % 08/30/2019 Unknown NCDF 9953021 Basophil 0 % 08/30/2019 Unknown NCDF [id number] Platelet Est Decreased 08/30/2019 Unkno wn VITAMIN B 12 52392 VITAMIN B12 716 pg/mL 08/29/2019 Unkn own COMPLETE BLOOD COUNT [id number] WBC 3.0 10e9/L 08/29/20 19 Unknown COMPLETE BLOOD COUNT [id number] RBC 3.19 10e12/L 2018 Unknown COMPLETE BLOOD COUNT [id number] HEMOGLOBIN 11.5 g/dL 08/29/20 19 Unknown COMPLETE BLOOD COUNT [id number] HEMATOCRIT 35.6 % 08/29/20 19 Unknown COMPLETE BLOOD COUNT [id number] MCV 111.6 fL 9 Unknown COMPLETE BLOOD COUNT [id number] MCH 36.1 pg 9 Unknown COMPLETE BLOOD COUNT [id number] MCHC 32.3 g/dL 9 Unknown COMPLETE BLOOD COUNT [id number] PLATELET COUNT 79 10e9/L 08/02 Unknown COMPLETE BLOOD COUNT [id number] Mean Plt Volume 11.1 fL Unknown COMPLETE BLOOD COUNT [id number] Neut Auto 32.7 % 9 Unknown COMPLETE BLOOD COUNT [id number] Lymph Auto 39.6 % 08/29/20 19 Unknown COMPLETE BLOOD COUNT [id number] Early Auto 24.4 % 9 Unknown COMPLETE BLOOD COUNT [id number] RDW 14.0 % 9 Unknown COMPLETE BLOOD COUNT [id number] Eos Auto 2.0 % 9 Unknown COMPLETE BLOOD COUNT [id number] Baso Auto 1.3 % 9 Unknown COMPLETE BLOOD COUNT [id number] Neutrophil Abs 0.98 10e9/L Unknown COMPLETE BLOOD COUNT [id number] Lymphocyte Abs 1.19 10e9/L Unknown COMPLETE BLOOD COUNT [id number] Monocyte Abs 0.73 10e9/L 08/02 Unknown COMPLETE BLOOD COUNT [id number] Eosinophil Abs 0.06 10e9/L Unknown COMPLETE BLOOD COUNT [id number] RDW-SD 54.5 fL 9 Unknown COMPLETE BLOOD COUNT [id number] Basophil Abs 0.04 10e9/L 08/02 Unknown NCDF [id number] Neutrophil 37 % 05/24/2019 Unknown NCDF [id number] BAND 5 % 05/24/2019 Unknown NCDF 2676024 Lymphocyte 34 % 05/24/2019 Unknown NCDF [id number] Monocyte 19 % 05/24/2019 Unknown NCDF [id number] Eosinophil 3 % 05/24/2019 Unknown NCDF 4209005 Basophil 2 % 05/24/2019 Unknown NCDF [id number] Platelet Est Adequate 05/24/2019 Unknow n VITAMIN B 12 06382 VITAMIN B12 788 pg/mL 05/23/2019 Unkn own IRON 29418 Iron 152 ug/dL 05/23/2019 Unknown COMPLETE BLOOD COUNT [id number] WBC 3.9 10e9/L 05/23/20 19 Unknown COMPLETE BLOOD COUNT [id number] RBC 3.61 10e12/L 2018 Unknown COMPLETE BLOOD COUNT [id number] HEMOGLOBIN 12.5 g/dL 05/23/20 19 Unknown COMPLETE BLOOD COUNT [id number] HEMATOCRIT 38.2 % 05/23/20 19 Unknown COMPLETE BLOOD COUNT [id number] MCV 105.8 fL 9 Unknown COMPLETE BLOOD COUNT [id number] MCH 34.6 pg 9 Unknown COMPLETE BLOOD COUNT 1095305 MCHC 32.7 g/dL 9 Unknown COMPLETE BLOOD COUNT 1053546 PLATELET COUNT 157 10e9/L Unknown COMPLETE BLOOD COUNT 4397860 Mean Plt Volume 10.4 fL Unknown COMPLETE BLOOD COUNT 8931599 Neut Auto 35.6 % 9 Unknown COMPLETE BLOOD COUNT [id number] Lymph Auto 33.2 % 05/23/20 19 Unknown COMPLETE BLOOD COUNT [id number] Early Auto 26.6 % 9 Unknown COMPLETE BLOOD COUNT 7508000 RDW 14.1 % 9 Unknown COMPLETE BLOOD COUNT 2529338 Eos Auto 1.8 % 9 Unknown COMPLETE BLOOD COUNT [id number] Baso Auto 2.8 % 9 Unknown COMPLETE BLOOD COUNT [id number] Neutrophil Abs 1.39 10e9/L Unknown COMPLETE BLOOD COUNT [id number] Lymphocyte Abs 1.29 10e9/L Unknown COMPLETE BLOOD COUNT [id number] Monocyte Abs 1.04 10e9/L 05/02 Unknown COMPLETE BLOOD COUNT [id number] Eosinophil Abs 0.07 10e9/L Unknown COMPLETE BLOOD COUNT [id number] RDW-SD 53.5 fL 9 Unknown COMPLETE BLOOD COUNT [id number] Basophil Abs 0.11 10e9/L 05/02 Unknown COMPLETE BLOOD COUNT [id number] WBC 5.4 10e9/L 06/11/20 18 Unknown COMPLETE BLOOD COUNT [id number] RBC 4.05 10e12/L 2017 Unknown COMPLETE BLOOD COUNT [id number] HEMOGLOBIN 13.5 g/dL 06/11/20 18 Unknown COMPLETE BLOOD COUNT [id number] HEMATOCRIT 41.3 % 06/11/20 18 Unknown COMPLETE BLOOD COUNT [id number] MCV 102.0 fL 8 Unknown COMPLETE BLOOD COUNT 7689752 MCH 33.3 pg 8 Unknown COMPLETE BLOOD COUNT [id number] MCHC 32.7 g/dL 8 Unknown COMPLETE BLOOD COUNT [id number] PLATELET COUNT 210 10e9/L 07/2018 Unknown COMPLETE BLOOD COUNT [id number] Mean Plt Volume 10.0 fL 07/2018 Unknown COMPLETE BLOOD COUNT [id number] Neut Auto 35.2 % 8 Unknown COMPLETE BLOOD COUNT 2548934 Lymph Auto 29.2 % 06/11/20 18 Unknown COMPLETE BLOOD COUNT [id number] Early Auto 17.3 % 8 Unknown COMPLETE BLOOD COUNT 7338135 RDW 13.8 % 8 Unknown COMPLETE BLOOD COUNT [id number] Eos Auto 16.4 % 8 Unknown COMPLETE BLOOD COUNT 2765932 Baso Auto 1.9 % 8 Unknown COMPLETE BLOOD COUNT [id number] Neutrophil Abs 1.90 10e9/L Unknown COMPLETE BLOOD COUNT [id number] Lymphocyte Abs 1.58 10e9/L Unknown COMPLETE BLOOD COUNT [id number] Monocyte Abs 0.93 10e9/L 05/31 Unknown COMPLETE BLOOD COUNT [id number] Eosinophil Abs 0.89 10e9/L Unknown COMPLETE BLOOD COUNT 1790022 RDW-SD 50.2 fL 8 Unknown COMPLETE BLOOD COUNT [id number] Basophil Abs 0.10 10e9/L 05/31 Unknown GFR CALC [id number] GFR Non Afr Amr >60 mL/min 06/11/2018 Un known GFR CALC [id number] GFR Afr Amr >60 mL/min 06/11/2018 Unknow n COMPREHENSIVE METABOLIC 52569 AST 15 U/L 2017 Unknown COMPREHENSIVE METABOLIC 55063 ALT 18 U/L 2017 Unknown COMPREHENSIVE METABOLIC 76631 BUN 11 mg/dL 2017 Unknown COMPREHENSIVE METABOLIC 43394 ALBUMIN 3.7 g/dL 2017 Unknown COMPREHENSIVE METABOLIC 26517 CHLORIDE 102 mmol/L 06/11 Unknown COMPREHENSIVE METABOLIC 81940 Bili Total 0.6 mg/dL 06/11 Unknown COMPREHENSIVE METABOLIC 88878 ALK PHOS 98 U/L 2017 Unknown COMPREHENSIVE METABOLIC 34070 SODIUM 139 mmol/L 06/11 Unknown COMPREHENSIVE METABOLIC 17050 CREATININE 0.89 mg/dL 05/31 Unknown COMPREHENSIVE METABOLIC 68572 CALCIUM 8.7 mg/dL 2017 Unknown COMPREHENSIVE METABOLIC 76598 POTASSIUM 3.9 mmol/L 06/11 Unknown COMPREHENSIVE METABOLIC 65064 Total Protein 6.7 g/dL Unknown COMPREHENSIVE METABOLIC 61980 Glucose 112 mg/dL 2017 Unknown COMPREHENSIVE METABOLIC 65542 Bicarbonate 35 mmol/L 05/31 Unknown COMPREHENSIVE METABOLIC 49852 AGAP 2 mmol/L 2017 Unknown COMPLETE BLOOD COUNT [id number] WBC 7.4 10e9/L 10/17/19 16 Unknown COMPLETE BLOOD COUNT [id number] RBC 4.42 10e12/L 2015 Unknown COMPLETE BLOOD COUNT [id number] HGB 13.8 g/dL 6 Unknown COMPLETE BLOOD COUNT [id number] HCT DET 40.8 % 6 Unknown COMPLETE BLOOD COUNT [id number] MCV 92.3 fL 6 Unknown COMPLETE BLOOD COUNT [id number] MCH 31.2 pg 6 Unknown COMPLETE BLOOD COUNT [id number] MCHC 33.8 g/dL 6 Unknown COMPLETE BLOOD COUNT [id number] PLT 247 10e9/L 10/17/19 16 Unknown COMPLETE BLOOD COUNT [id number] MPV 9.3 fL 6 Unknown COMPLETE BLOOD COUNT [id number] YANNICK % 63.0 % 6 Unknown COMPLETE BLOOD COUNT [id number] LY % 19.2 % 6 Unknown COMPLETE BLOOD COUNT [id number] MON % 15.8 % 6 Unknown COMPLETE BLOOD COUNT [id number] EOS % 1.1 % 6 Unknown COMPLETE BLOOD COUNT [id number] BASO % 0.9 % 6 Unknown COMPLETE BLOOD COUNT [id number] RDW 13.7 % 6 Unknown COMPLETE BLOOD COUNT [id number] ABS YANNICK 4.66 10e9/L 016 Unknown COMPLETE BLOOD COUNT [id number] ABS LYMPH 1.42 10e9/L 016 Unknown COMPLETE BLOOD COUNT [id number] ABS MONO 1.17 10e9/L 016 Unknown COMPLETE BLOOD COUNT [id number] ABS EOS 0.08 10e9/L 016 Unknown COMPLETE BLOOD COUNT [id number] ABS BASO 0.07 10e9/L 016 Unknown COMPLETE BLOOD COUNT [id number] RDW-SD 44.9 fL 6 Unknown GFR CALC [id number] GFR AA 46.0L ML/MIN 10/17/2015 Unknow n GFR CALC [id number] GFR NON-AA 37.0L ML/MIN 10/17/2015 Unkno wn C-REACTIVE PROTEIN (CRP) QUANT 15717 CRP 0.5 MG/DL 10/17/2015 Unknown COMPREHENSIVE METABOLIC 07209 AST 18 U/L 2015 Unknown COMPREHENSIVE METABOLIC 58458 ALT 27 U/L 2015 Unknown COMPREHENSIVE METABOLIC 85162 BUN 38 MG/DL 2015 Unknown COMPREHENSIVE METABOLIC 53189 ALBUMIN 3.7 GM/DL 2015 Unknown COMPREHENSIVE METABOLIC 93537 CHLORIDE 100 MMOL/L 10/17 Unknown COMPREHENSIVE METABOLIC 46231 BILI TOT 0.8 MG/DL 2015 Unknown COMPREHENSIVE METABOLIC 81627 ALK PHOS 70 U/L 2015 Unknown COMPREHENSIVE METABOLIC 42549 SODIUM 137 MMOL/L 10/17 Unknown COMPREHENSIVE METABOLIC 95342 CREATININE 1.80 MG/DL 10/01 Unknown COMPREHENSIVE METABOLIC 26936 CALCIUM 8.9 MG/DL 2015 Unknown COMPREHENSIVE METABOLIC 98191 POTASSIUM 5.1 MMOL/L 10/17 Unknown COMPREHENSIVE METABOLIC 86543 PROT TOT 6.6 GM/DL 2015 Unknown COMPREHENSIVE METABOLIC 47712 Glucose 99 MG/DL 2015 Unknown COMPREHENSIVE METABOLIC 27303 BICARB 22 MMOL/L 2015 Unknown COMPREHENSIVE METABOLIC 22513 ANION GAP 15 MMOL/L 2015 Unknown Procedures Procedure Codes Date ROUTINE VENIPUNCTURE CPT-4: 26254 10/10/2019 COMPLETE CBC W/AUTO DIFF WBC CPT-4: 03201 10/10/2019 THER/PROPH/DIAG INJ SC/IM CPT-4: 04233 09/20/2019 TRIAMCINOLONE ACET INJ NOS CPT-4: J3301 09/20/2019 CEFTRIAXONE SODIUM INJECTION CPT-4: J0696 09/20/2019 THER/PROPH/DIAG INJ SC/IM CPT-4: 67299 09/20/2019 THER/PROPH/DIAG INJ SC/IM CPT-4: 07626 09/19/2019 METHYLPREDNISOLONE INJECTION CPT-4: J2930 09/19/2019 CEFTRIAXONE SODIUM INJECTION CPT-4: J0696 09/19/2019 THER/PROPH/DIAG INJ SC/IM CPT-4: 80497 09/19/2019 ROUTINE VENIPUNCTURE CPT-4: 60604 08/29/2019 COMPLETE CBC W/AUTO DIFF WBC CPT-4: 13894 08/29/2019 VITAMIN B-12 CPT-4: 80518 08/29/2019 THER/PROPH/DIAG INJ SC/IM CPT-4: 51547 08/29/2019 THER/PROPH/DIAG INJ SC/IM CPT-4: 77004 08/15/2019 THER/PROPH/DIAG INJ SC/IM CPT-4: 36810 08/01/2019 THER/PROPH/DIAG INJ SC/IM CPT-4: 29468 07/18/2019 THER/PROPH/DIAG INJ SC/IM CPT-4: 31370 07/04/2019 THER/PROPH/DIAG INJ SC/IM CPT-4: 03566 06/20/2019 FLU VACC PRSV FREE INC ANTIG 65 AND OLDER CPT-4: 19527 06/06/2019 THER/PROPH/DIAG INJ SC/IM CPT-4: 27125 06/06/2019 FLU VACC PRSV FREE INC ANTIG 65 AND OLDER CPT-4: 12589 06/06/2019 PNEUMOCOCCAL VACC 23 GAIL IM CPT-4: 30347 06/06/2019 ADMIN INFLUENZA VIRUS VAC CPT-4: G0008 06/06/2019 ADMIN PNEUMOCOCCAL VACCINE CPT-4: G0009 06/06/2019 ROUTINE VENIPUNCTURE CPT-4: 06046 05/23/2019 COMPLETE CBC W/AUTO DIFF WBC CPT-4: 07355 05/23/2019 ASSAY OF IRON CPT-4: 11633 05/23/2019 VITAMIN B-12 CPT-4: 43294 05/23/2019 THER/PROPH/DIAG INJ SC/IM CPT-4: 07699 05/18/2019 THER/PROPH/DIAG INJ SC/IM CPT-4: 91416 05/04/2019 THER/PROPH/DIAG INJ SC/IM CPT-4: 94457 04/27/2019 THER/PROPH/DIAG INJ SC/IM CPT-4: 22049 04/20/2019 THER/PROPH/DIAG INJ SC/IM CPT-4: 41295 04/06/2019 THER/PROPH/DIAG INJ SC/IM CPT-4: 81216 03/23/2019 VITAMIN B12 INJECTION CPT-4: J3420 03/23/2019 THER/PROPH/DIAG INJ SC/IM CPT-4: 47994 03/14/2019 THER/PROPH/DIAG INJ SC/IM CPT-4: 98403 03/07/2019 THER/PROPH/DIAG INJ SC/IM CPT-4: 85823 02/24/2019 THER/PROPH/DIAG INJ SC/IM CPT-4: 47492 02/16/2019 CEFTRIAXONE SODIUM INJECTION CPT-4: J0696 10/29/2018 THER/PROPH/DIAG INJ SC/IM CPT-4: 19575 10/29/2018 THER/PROPH/DIAG INJ SC/IM CPT-4: 99787 10/26/2018 METHYLPREDNISOLONE INJECTION CPT-4: J2930 10/26/2018 THER/PROPH/DIAG INJ SC/IM CPT-4: 59213 06/23/2018 METHYLPREDNISOLONE INJECTION CPT-4: J2930 06/23/2018 COMPLETE CBC W/AUTO DIFF WBC CPT-4: 09314 06/11/2018 COMPREHEN METABOLIC PANEL CPT-4: 21691 06/11/2018 CEFTRIAXONE SODIUM INJECTION CPT-4: J0696 05/18/2018 THER/PROPH/DIAG INJ SC/IM CPT-4: 16423 05/18/2018 CEFTRIAXONE SODIUM INJECTION CPT-4: J0696 05/17/2018 THER/PROPH/DIAG INJ SC/IM CPT-4: 90907 05/17/2018 THER/PROPH/DIAG INJ SC/IM CPT-4: 53401 05/17/2018 METHYLPREDNISOLONE INJECTION CPT-4: J2930 05/17/2018 FLU VACC PRSV FREE INC ANTIG 65 AND OLDER CPT-4: 22668 05/12/2018 PNEUMOCOCCAL VACC 13 GAIL IM CPT-4: 00578 05/12/2018 ADMIN INFLUENZA VIRUS VAC CPT-4: G0008 05/12/2018 ADMIN PNEUMOCOCCAL VACCINE CPT-4: G0009 05/12/2018 FLU VACC PRSV FREE INC ANTIG 65 AND OLDER CPT-4: 88461 06/17/2017 ADMIN INFLUENZA VIRUS VAC CPT-4: G0008 06/17/2017 URINALYSIS NONAUTO W/O SCOPE CPT-4: 77923 05/21/2017 URINE CULTURE/ COLONY COUNT CPT-4: 73252 05/21/2017 CEFTRIAXONE SODIUM INJECTION CPT-4: J0696 12/16/2016 THER/PROPH/DIAG INJ SC/IM CPT-4: 64093 12/16/2016 THER/PROPH/DIAG INJ SC/IM CPT-4: 73973 12/16/2016 METHYLPREDNISOLONE INJECTION CPT-4: J2930 12/16/2016 CEFTRIAXONE SODIUM INJECTION CPT-4: J0696 12/15/2016 THER/PROPH/DIAG INJ SC/IM CPT-4: 02428 12/15/2016 THER/PROPH/DIAG INJ SC/IM CPT-4: 37017 12/15/2016 METHYLPREDNISOLONE INJECTION CPT-4: J2930 12/15/2016 THER/PROPH/DIAG INJ SC/IM CPT-4: 74959 12/10/2016 TRIAMCINOLONE ACET INJ NOS CPT-4: J3301 12/10/2016 DEXAMETHASONE SODIUM PHOS CPT-4: J1100 12/10/2016 FLU VACC PRSV FREE INC ANTIG 65 AND OLDER CPT-4: 67922 07/21/2016 ADMIN INFLUENZA VIRUS VAC CPT-4: G0008 07/21/2016 ROUTINE VENIPUNCTURE CPT-4: 86372 10/17/2015 COMPLETE CBC W/AUTO DIFF WBC CPT-4: 19436 10/17/2015 COMPREHEN METABOLIC PANEL CPT-4: 86369 10/17/2015 C-REACTIVE PROTEIN CPT-4: 84820 10/17/2015 FLU VACC PRSV FREE INC ANTIG 65 AND OLDER CPT-4: 31078 06/25/2015 ADMIN INFLUENZA VIRUS VAC CPT-4: G0008 06/25/2015 PRESCRIP TRANSMIT VIA ERX SY CPT-4: G8553 06/25/2015 PRESCRIP TRANSMIT VIA ERX SY CPT-4: G8553 04/11/2015 URINALYSIS NONAUTO W/O SCOPE CPT-4: 19323 02/08/2015 PRESCRIP TRANSMIT VIA ERX SY CPT-4: [...] 1: 148/74 Code: 8480-6 BMI: 35.2 Code: 32195-5 Heart Rate 1: 64 bpm Height: 5'10" [...] 1: 126/70 Code: 8480-6 BMI: 34.9 Code: 04779-1 Heart Rate 1: 64 bpm Height: 5'10" Respiratory Rate: 20 bpm SpO2: 96% Tempera ture: 36.8 (C) / 98.3 (F) Weight: 243 lbs 07/20/2017 Blood Pressure 1: 136/78 Code: 8480-6 Heart Rate 1: 74 bpm Height: 5'10" Respiratory Rate: 22 bpm SpO2: 98% Temperature: 36.2 (C) / 97.1 (F) Weight: 07/07/2017 Blood Pressure 1: 136/78 Code: 8480-6 BMI: 35.3 Code: 16672-8 Heart Rate 1: 72 bpm Height: 5'10" Respiratory Rate: 20 bpm SpO2: 95% Tempera ture: 36.7 (C) / 98.1 (F) Weight: 246 lbs 06/17/2017 Blood Pressure 1: 128/68 Code: 8480-6 BMI: 34.7 Code: 83323-3 Heart Rate 1: 80 bpm Height: 5'10" Respiratory Rate: 22 bpm SpO2: 94% Tempera ture: 36.7 (C) / 98.0 (F) Weight: 242 lbs 05/19/2017 Blood Pressure 1: 112/68 Code: 8480-6 BMI: 34.9 Code: 64491-2 Heart Rate 1: 84 bpm Height: 5'10" Respiratory Rate: 18 bpm SpO2: 97% Tempera ture: 36.4 (C) / 97.6 (F) Weight: 243 lbs 02/24/2017 Blood Pressure 1: 122/62 Code: 8480-6 Heart Rate 1: 66 bpm Height: 5'10" Respiratory Rate: 18 bpm SpO2: 95% Temperature: 36 .6 (C) / 97.9 (F) 01/01/2017 Blood Pressure 1: 126/58 Code: 8480-6 BMI: 34.9 Code: 92719-7 Heart Rate 1: 72 bpm Height: 5'10" [...] 1: 124/68 Code: 8480-6 BMI: 35.4 Code: 98966-5 Heart Rate 1: 84 bpm Height: 5'10" Respiratory Rate: 20 bpm SpO2: 94% Tempera ture: 37.0 (C) / 98.6 (F) Weight: 247 lbs 05/29/2016 Blood Pressure 1: 112/72 Code: 8480-6 BMI: 36.0 Code: 69837-7 Heart Rate 1: 108 bpm Height: 5'10" Respiratory Rate: 24 bpm SpO2: 91% Tempera ture: 36.4 (C) / 97.6 (F) Weight: 251 lbs 03/18/2016 Blood Pressure 1: 122/64 Code: 8480-6 BMI: 35.6 Code: 22935-8 Heart Rate 1: 64 bpm Height: 5'10" [...] 1: 134/78 Code: 8480-6 BMI: 35.9 Code: 52656-6 Heart Rate 1: 72 bpm Height: 5'10" Respiratory Rate: 20 bpm Temperature: 36 .9 (C) / 98.4 (F) Weight: 250 lbs 08/30/2015 Blood Pressure 1: 128/62 Code: 8480-6 Heart Rate 1: 78 bpm Respiratory Rate: 20 bpm SpO2: 96% Temperature: 35.9 (C) / 96.6 (F) We ight: 252 lbs 06/25/2015 Blood Pressure 1: 126/70 Code: 8480-6 BMI: 36.9 Code: 64511-8 Heart Rate 1: 64 bpm Height: 5'10" Respiratory Rate: 20 bpm Temperature: 36 .6 (C) / 97.9 (F) Weight: 257 lbs 04/25/2015 Blood Pressure 1: 130/80 Code: 8480-6 BMI: 37.3 Code: 89044-9 Heart Rate 1: 64 bpm Height: 5'10" Respiratory Rate: 22 bpm Temperature: 36 .4 (C) / 97.6 (F) Weight: 260 lbs 04/11/2015 Blood Pressure 1: 148/70 Code: 8480-6 BMI: 37.3 Code: 91319-9 Heart Rate 1: 66 bpm Height: 5'10" Respiratory Rate: 18 bpm Temperature: 36 .5 (C) / 97.7 (F) Weight: 260 lbs 02/27/2015 Blood Pressure 1: 122/58 Code: 8480-6 BMI: 36.0 Code: 37387-0 Heart Rate 1: 80 bpm Height: 5'10" Respiratory Rate: 20 bpm Temperature: 36 .7 (C) / 98.1 (F) Weight: 251 lbs 02/08/2015 Blood Pressure 1: 140/68 Code: 8480-6 BMI: 36.7 Code: 17406-5 Heart Rate 1: 64 bpm Height: 5'10" Respiratory Rate: 20 bpm Temperature: 36 .9 (C) / 98.5 (F) Weight: 256 lbs 01/18/2015 Blood Pressure 1: 136/68 Code: 8480-6 BMI: 33.0 Code: 69326-8 Heart Rate 1: 60 bpm Height: 5'10" [...] Diagnosis: Chronic depressive disorder[ICD10: F32.9] Haylee [facility] CPT-4: 31534 01/04/2020 ([id number]) NURSE/OUTPATIENT VISIT EST Diagnosis: Thrombocytopenia[ICD10: D69.6] Haylee Muniz [employer] CPT-4: 81638 10/10/2019 ([id number]) NO CHARGE Diagnosis: Pancytopenia[ICD10: D61.818] Haylee Mast [employer] CPT-4: 06760 10/10/2019 ([id number]) OFFICE/OUTPATIENT VISIT EST Diagnosis: Chronic obstructive pulmonary disease, unspecified[ICD10: J44.9] Diagnosis: Pancytopenia[ICD10: D61.818] Haylee Mast [employer] CPT-4: 06950 09/29/2019 ([id number]) NO CHARGE Diagnosis: Chronic obstructive pulmonary disease with (acute) exacerbation[ICD10: J44.1] Haylee PIPER DO [facility] CPT- 4: 01258 09/21/2019 ([id number]) OFFICE/OUTPATIENT VISIT EST Diagnosis: Chronic obstructive pulmonary disease with acute lower respiratory infection[ICD10: J44.0] Diagnosis: Chronic obstructive pulmonary disease with (acute) exacerbation[ICD10: J44.1] Haylee PIPER DO [facility] CPT- 4: 13765 09/20/2019 ([id number]) OFFICE/OUTPATIENT VISIT EST Diagnosis: COPD with lower respiratory infection[ICD10: J44.0] Diagnosis: COPD with exacerbation[ICD10: J44.1] Haylee PIPER DO [facility] CPT-4: 57392 09/19/2019 ([id number]) OFFICE/OUTPATIENT VISIT EST Diagnosis: Other fatigue[ICD10: R53.83] Diagnosis: Pancytopenia[ICD10: D61.818] Diagnosis: Other intervertebral disc degeneration, 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] Haylee PIPER DO [facility] CPT-4: 91633 09/05/2019 ([id number]) OFFICE/OUTPATIENT VISIT EST Diagnosis: Vitamin B12 deficiency anemia, unspecified[ICD10: D51.9] Diagnosis: Other fatigue[ICD10: R53.83] Diagnosis: Unsteadiness[ICD10: R26.81] Haylee ESCOBAR DO [facility] CPT-4: 21506 08/29/2019 ([id number]) NURSE/OUTPATIENT VISIT EST Diagnosis: Vitamin B12 deficiency anemia, unspecified[ICD10: D51.9] Haylee PIPER DO [facility] CPT-4: 58982 08/15/2019 ([id number]) NURSE/OUTPATIENT VISIT EST Diagnosis: Vitamin B12 deficiency anemia, unspecified[ICD10: D51.9] Haylee PIPER DO [facility] CPT-4: 32668 08/01/2019 ([id number]) NURSE/OUTPATIENT VISIT EST Diagnosis: Vitamin B12 deficiency anemia, unspecified[ICD10: D51.9] Haylee PIPER DO [facility] CPT-4: 46420 07/18/2019 ([id number]) NURSE/OUTPATIENT VISIT EST Diagnosis: Vitamin B12 deficiency anemia, unspecified[ICD10: D51.9] Haylee PIPER DO [facility] CPT-4: 00355 07/04/2019 ([id number]) NURSE/OUTPATIENT VISIT EST Diagnosis: Vitamin B12 deficiency anemia, unspecified[ICD10: D51.9] Haylee PIPER DO [facility] CPT-4: 04253 06/20/2019 ([id number]) NURSE/OUTPATIENT VISIT EST Diagnosis: Vitamin B12 deficiency anemia, unspecified[ICD10: D51.9] Diagnosis: FLU VACCINE[ICD10: Z23] Diagnosis: PNEUMOCOCCAL VACCINE[ICD10: Z23] Haylee PIPER DO [facility] CPT-4: 72270 06/06/2019 ([id number]) OFFICE/OUTPATIENT VISIT EST Diagnosis: Other fatigue[ICD10: R53.83] Diagnosis: B12 deficiency[ICD10: E53.8] Diagnosis: Iron deficiency anemia[ICD10: D50.9] Haylee PIPER DO [facility] CPT-4: 83348 05/23/2019 ([id number]) NURSE/OUTPATIENT VISIT EST Diagnosis: Vitamin B12 deficiency anemia, unspecified[ICD10: D51.9] Haylee PIPER DO [facility] CPT-4: 86902 05/18/2019 ([id number]) NURSE/OUTPATIENT VISIT EST Diagnosis: Vitamin B12 deficiency anemia, unspecified[ICD10: D51.9] Haylee PIPER DO [facility] CPT-4: 76336 05/04/2019 ([id number]) NURSE/OUTPATIENT VISIT EST Diagnosis: Vitamin B12 deficiency anemia, unspecified[ICD10: D51.9] Hayele PIPER DO [facility] CPT-4: 64056 04/27/2019 ([id number]) NURSE/OUTPATIENT VISIT EST Diagnosis: Vitamin B12 deficiency anemia, unspecified[ICD10: D51.9] Haylee PIPER DO [facility] CPT-4: 22980 04/20/2019 ([id number]) NURSE/OUTPATIENT VISIT EST Diagnosis: Vitamin B12 deficiency anemia, unspecified[ICD10: D51.9] Haylee PIPER DO [facility] CPT-4: 59384 04/06/2019 ([id number]) NURSE/OUTPATIENT VISIT EST Diagnosis: Vitamin B12 deficiency anemia, unspecified[ICD10: D51.9] Haylee PIPER DO [facility] CPT-4: 86992 03/23/2019 ([id number]) OFFICE/OUTPATIENT VISIT EST Diagnosis: Other intervertebral disc degeneration, 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] Diagnosis: Vitamin B12 deficiency anemia, unspecified[ICD10: D51.9] Diagnosis: Vitamin D deficiency, unspecified[ICD10: E55.9] Haylee PIPER DO [facility] CPT-4: 54975 03/17/2019 ([id number]) NURSE/OUTPATIENT VISIT EST Diagnosis: Vitamin B12 deficiency anemia, unspecified[ICD10: D51.9] Haylee PIPER DO [facility] CPT-4: 74817 03/14/2019 ([id number]) NURSE/OUTPATIENT VISIT EST Diagnosis: Vitamin B12 deficiency anemia, unspecified[ICD10: D51.9] Haylee PIPER DO [facility] CPT-4: 23956 03/07/2019 ([id number]) NURSE/OUTPATIENT VISIT EST Diagnosis: Vitamin B12 deficiency anemia, unspecified[ICD10: D51.9] Haylee PIPER DO [facility] CPT-4: 66813 02/24/2019 ([id number]) NURSE/OUTPATIENT VISIT EST Diagnosis: Vitamin B12 deficiency anemia, unspecified[ICD10: D51.9] Haylee PIPER DO [facility] CPT-4: 18398 02/16/2019 ([id number]) OFFICE/OUTPATIENT VISIT EST Diagnosis: Other fatigue[ICD10: R53.83] Diagnosis: Chronic obstructive pulmonary disease, unspecified[ICD10: J44.9] Diagnosis: Other spondylosis with radiculopathy, 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] Diagnosis: Vitamin D deficiency, unspecified[ICD10: E55.9] Diagnosis: Hyperglycemia, unspecified[ICD10: R73.9] Haylee PIPER DO [facility] CPT-4: 41047 02/14/2019 ([id number]) OFFICE/OUTPATIENT VISIT EST Diagnosis: Chronic obstructive pulmonary disease, unspecified[ICD10: J44.9] Diagnosis: Hypoxemia[ICD10: R09.02] Haylee MATHEWS [facility] CPT-4: 46215 11/11/2018 ([id number]) OFFICE/OUTPATIENT VISIT EST Diagnosis: Acute bronchitis, unspecified[ICD10: J20.9] Diagnosis: Other specified respiratory disorders[ICD10: J98.8] Diagnosis: Chronic obstructive pulmonary disease with (acute) exacerbation[ICD10: J44.1] Chula PIPER DO [facility] CPT- 4: 12085 10/29/2018 OFFICE/OUTPATIENT VISIT EST Diagnosis: Acute bronchitis due to other specified organisms[ICD10: J20.8] Diagnosis: Chronic obstructive pulmonary disease, unspecified[ICD10: J44.9] Chula PIPER DO [facility] CPT-4: 74043 10/26/2018 OFFICE/OUTPATIENT VISIT EST Diagnosis: Cervicalgia[ICD10: M54.2] Diagnosis: Other muscle spasm[ICD10: M62.838] Diagnosis: Chronic obstructive pulmonary disease, unspecified[ICD10: J44.9] Haylee PIPER DO [facility] CPT-4: 12383 08/11/2018 ([id number]) NURSE/OUTPATIENT VISIT EST Diagnosis: Acute bronchitis, unspecified[ICD10: J20.9] Haylee PIPER DO [facility] CPT-4: 89067 06/23/2018 ([id number]) OFFICE/OUTPATIENT VISIT EST Diagnosis: Acute bronchitis, unspecified[ICD10: J20.9] Columba PIPER DO [facility] CPT-4: 98647 06/17/2018 ([id number]) OFFICE/OUTPATIENT VISIT EST Diagnosis: Acute gastritis without bleeding[ICD10: K29.00] Columba PIPER DO [facility] CPT-4: 76588 06/11/2018 ([id number]) OFFICE/OUTPATIENT VISIT EST Diagnosis: Acute bronchitis, unspecified[ICD10: J20.9] Columba PIPER DO [facility] CPT-4: 37276 05/18/2018 ([id number]) OFFICE/OUTPATIENT VISIT EST Diagnosis: Dizziness and giddiness[ICD10: R42] Diagnosis: Acute bronchitis, unspecified[ICD10: J20.9] Diagnosis: Chronic obstructive pulmonary disease with acute lower respiratory infection[ICD10: J44.0] Columba PIPER DO [facility] CPT-4: 85154 05/17/2018 ([id number]) OFFICE/OUTPATIENT VISIT EST Diagnosis: Primary insomnia[ICD10: F51.01] Diagnosis: Other fatigue[ICD10: R53.83] 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] Diagnosis: Other spondylosis with radiculopathy, 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] Diagnosis: PNEUMOCOCCAL VACCINE[ICD10: Z23] Diagnosis: FLU VACCINE[ICD10: Z23] Haylee PARKER [facility] CPT-4: 77008 05/12/2018 OFFICE/OUTPATIENT VISIT EST Diagnosis: Candidal stomatitis[ICD10: B37.0] Columba PIPER DO [facility] CPT-4: 96357 07/20/2017 ([id number]) OFFICE/OUTPATIENT VISIT EST Diagnosis: Candidal stomatitis[ICD10: B37.0] Haylee PIPER DO [facility] CPT-4: 11867 07/07/2017 ([id number]) OFFICE/OUTPATIENT VISIT EST Diagnosis: Localized edema[ICD10: R60.0] Diagnosis: Anemia, unspecified[ICD10: D64.9] Diagnosis: Disorder of kidney and ureter, unspecified[ICD10: N28.9] Diagnosis: FLU VACCINE[ICD10: Z23] Haylee PARKER [facility] CPT-4: 93730 06/17/2017 ([id number]) OFFICE/OUTPATIENT VISIT EST Diagnosis: Dysuria[ICD10: R30.0] Haylee PIPER DO [facility] CPT-4: 79849 05/21/2017 OFFICE/OUTPATIENT VISIT EST Diagnosis: Encounter for other specified special examinations[ICD10: Z01.89] Diagnosis: Disorder of kidney and ureter, unspecified[ICD10: N28.9] Diagnosis: Anemia, unspecified[ICD10: D64.9] Mayra Arguello TWIN PIPER DO [facility] CPT-4: 20599 05/19/2017 ([id number]) OFFICE/OUTPATIENT VISIT EST Diagnosis: URI, ACUTE[ICD10: J06.9] Haylee MATHEWS [facility] CPT-4: 69169 02/24/2017 ([id number]) OFFICE/OUTPATIENT VISIT EST Diagnosis: Hypotension, unspecified[ICD10: I95.9] Diagnosis: Bradycardia, unspecified[ICD10: R00.1] [facility] 66768 01/01/2017 ([id number]) NO CHARGE Diagnosis: Chronic obstructive pulmonary disease with (acute) exacerbation[ICD10: J44.1] Diagnosis: Pneumonia, unspecified organism[ICD10: J18.9] [facility]: 26207 12/22/2016 OFFICE/OUTPATIENT VISIT EST Diagnosis: Pneumonia, unspecified organism[ICD10: J18.9] Diagnosis: Chronic obstructive pulmonary disease with (acute) exacerbation[ICD10: J44.1] Haylee PIPER [facility] CPT- 4: 36602 12/17/2016 OFFICE/OUTPATIENT VISIT EST Diagnosis: Pneumonia, unspecified organism[ICD10: J18.9] Diagnosis: Mild intermittent asthma with (acute) exacerbation[ICD10: J45.21] Diagnosis: Chronic obstructive pulmonary disease with (acute) exacerbation[ICD10: J44.1] Haylee PIPER DO [facility] CPT- 4: 92672 12/16/2016 ([id number]) OFFICE/OUTPATIENT VISIT EST Diagnosis: Mild intermittent asthma with (acute) exacerbation[ICD10: J45.21] Diagnosis: Pneumonia, unspecified organism[ICD10: J18.9] Haylee PIPER [facility] CPT-4: 11205 12/15/2016 ([id number]) OFFICE/OUTPATIENT VISIT EST Diagnosis: Acute bronchitis, unspecified[ICD10: J20.9] Diagnosis: Unspecified asthma with (acute) exacerbation[ICD10: J45.901] Susie STEPHENSONLINE Pro PIPER [facility] CPT-4: 76543 12/11/2016 ([id number]) OFFICE/OUTPATIENT VISIT EST Diagnosis: Acute bronchitis, unspecified[ICD10: J20.9] Diagnosis: Unspecified asthma with (acute) exacerbation[ICD10: J45.901] Susie PIPER [facility] CPT-4: 87053 12/10/2016 ([id number]) OFFICE/OUTPATIENT VISIT EST Diagnosis: Chronic obstructive pulmonary disease with (acute) exacerbation[ICD10: J44.1] Diagnosis: Other spondylosis with radiculopathy, 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] Diagnosis: Other intervertebral disc degeneration, 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] Diagnosis: FLU VACCINE[ICD10: Z23] Haylee PARKER [facility] CPT-4: 65137 07/21/2016 ([id number]) OFFICE/OUTPATIENT VISIT EST Diagnosis: Unspecified open wound of right forearm, initial encounter[ICD10: S51.801A] Haylee PIPER [facility] CPT-4: 80478 05/30/2016 ([id number]) OFFICE/OUTPATIENT VISIT EST Diagnosis: Unspecified open wound of right forearm, initial encounter[ICD10: S51.801A] Susie STEPHEN[employer]LINE [employer] PIPER [facility] CPT-4: 67835 ([id number]) OFFICE/OUTPATIENT VISIT EST 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] Diagnosis: Mixed hyperlipidemia[ICD10: E78.2] Diagnosis: Other intervertebral disc degeneration, 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] [facility]: 12466 03/18/2016 OFFICE/OUTPATIENT VISIT EST Diagnosis: Hypotension, unspecified[ICD10: I95.9] Diagnosis: Dizziness and giddiness[ICD10: R42] [facility]: 18422 10/18/2015 ([id number]) OFFICE/OUTPATIENT VISIT EST Diagnosis: Hypotension, unspecified[ICD10: I95.9] [facility]: 47999 10/17/2015 ([id number]) OFFICE/OUTPATIENT VISIT EST Diagnosis: Solitary pulmonary nodule[ICD10: R91.1] Diagnosis: Other spondylosis with radiculopathy, 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] Diagnosis: Other amnesia[ICD10: R41.3] Haylee Piper HAYLEE [facility] CPT-4: 74718 10/10/2015 ([id number]) OFFICE/OUTPATIENT VISIT EST Diagnosis: Pneumonia, unspecified organism[ICD10: J18.9] Diagnosis: Solitary pulmonary nodule[ICD10: R91.1] [facility] CPT-4: 89858 08/30/2015 ([id number]) OFFICE/OUTPATIENT VISIT EST Diagnosis: Gastro-esophageal reflux disease with esophagitis[ICD10: K21.0] 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 CPT-4: 12346 04/11/2015 ([id number]) OFFICE/OUTPATIENT VISIT EST Diagnosis: MALAISE AND FATIGUE[ICD9: 780.79] Diagnosis: Lumbar degenerative disc disease[ICD9: 722.52] Diagnosis: Leg weakness[ICD9: 729.89] Haylee ROLL[facility] CPT-4: 63869 02/27/2015 ([id number]) OFFICE/OUTPATIENT VISIT EST Diagnosis: Tremor[ICD9: 781.0] Diagnosis: Memory disturbance[ICD9: 780.93] Haylee PIPER [facility] CPT-4: 05395 02/08/2015 ([id number]) OFFICE/OUTPATIENT VISIT NEW Diagnosis: INSOMNIA NOS[ICD9: 780.52] Diagnosis: Lumbar degenerative disc disease[ICD9: 722.52] Diagnosis: Leg weakness[ICD9: 729.89] Diagnosis: DEPRESSIVE DISORDER NEC[ICD9: 311] Diagnosis: Coronary artery disease[ICD9: 414.00] Diagnosis: Peripheral vascular disease[ICD9: 443.9] Haylee PIPER [facility] CPT-4: 65410 01/18/2015 Plan of Care Planned Activity Notes Codes Status Date Visit Diagnosis Plan: Chronic depressive disorder Disc ussion: Change duloxetine to Wellbutrin XL in AM and Escitalopram 10mg q PM Follow Up: 4 weeks ICD-9 : 301.12 ICD-10 : F32.9 01/04/2020 Patient Education: escitalopram oxalate- [employer] Co upon [id number] [email or web address] Completed 01/04/2020 Patient Education: Wellbutrin XL- [employer] Coupon 11 [id number] [email or web address] Completed 01/04/2020 Visit Diagnosis Plan: Pancytopenia Discussion: Discuss ed options including hospice Patient has decided that he wants to proceed with oncology/hematology eval. so will try to arrange for that this week Once again discussed bleeding risks and reasons to seek immediate care ICD-9 : 284.19 ICD-10 : D61.818 10/10/2019 Appointment: Haylee Piperl: 93 [address] [place], [place] [phone] [place] LAB 10/10/2019 Appointment: Haylee Piper WPtel: [address] [place], [place] [address] WORK IN 10/10/2019 Patient Education: Dexilant- OptimizeRX Coupon [id number] [email or web address]://www.Ifinity/Lucidux/resources/getResource/61/02308700-7vf0-8207-yo Completed 10/10/2019 Care Plan: COMPREHEN METABOLIC PANEL JAKUB NC : 00434-2 Pending 10/06/2019 Care Plan: COMPLETE CBC W/AUTO DIFF WBC LOINC : 86880-9 Pending 10/06/2019 Visit Diagnosis Plan: Chronic obstructive pulmonary di sease, unspecified Discussion: Restart Symbicort Start pulmonary rehab Use oxygen q HS and prn Use SVNs with abuterol at least QID ICD-9 : 496 ICD-10 : J44.9 09/29/2019 Visit Diagnosis Plan: Pancytopenia Discussion: CBC in 1 week Once again discussed hematology consult ICD-9 : 284.19 ICD-10 : D61.818 09/29/2019 Appointment: Haylee Piper WPtel: [address] [place] [address] Hospital Follow Up 09/29/2019 Visit Diagnosis Plan: Chronic obstructiv e pulmonary disease with (acute) exacerbation Discussion: Direct admit to hospital ICD-9 : 491.21 ICD-10 : J44.1 09/21/2019 Appointment: Haylee Piper WPtel: [address] [place], [place] [phone] [place] WORK IN 09/21/2019 Visit Diagnosis Plan: [...] : J44.1 09/20/2019 Appointment: Haylee Piper WPtel: [address] [place], [place] [phone] [place] WORK IN 09/20/2019 Visit Diagnosis Plan: COPD with exacerbation Discussio n: Solumedrol 125mg IM now SVNs with duoneb q4hrs Recheck tomorrow ICD-9 : 491.21 ICD-10 : J44.1 09/19/2019 Visit Diagnosis Plan: COPD with lower respiratory infe ction Discussion: Rocephin 1gm IM now Recheck tomorrow ICD-9 : 496 ICD-10 : J44.0 09/19/2019 Appointment: Haylee Piper WPtel: [address] [place] [address] US FOLLOW UP 09/19/2019 Appointment: Haylee Piper WPtel: [address] [place], [place] [phone] [place] 09/02/19---moved him to a cancellation spot on [...] : M51.36 09/05/2019 Appointment: Haylee Piper WPtel: [address] [place], [place] [phone] [place] FOLLOW UP 09/05/2019 Patient Education: Lyrica- OptimizeRX Beccapon [id number] https://www.Ifinity/samplemd/resources/getResource/61/01b89820-k45s-52rl-48 a3-79166lo2ww0q.pdf Completed 09/05/2019 Visit Diagnosis Plan: Vitamin B12 [...] 781.2 ICD-10 : R26.81 08/29/2019 Appointment: Haylee Pipertel: [address] [place], [place] [phone] [place] MEDICATION REVIEW 08/29/2019 Appointment: Haylee Piper WPtel: [address] [place], [place] [phone] [place] INJECTION 08/15/2019 Appointment: Haylee Piper WPtel: [address] [place], [place] [phone] [place] INJECTION 08/01/2019 Appointment: Haylee Piper WPtel: [address] [place], [place] [phone] [place] INJECTION 07/18/2019 Appointment: Haylee Piper WPtel: [address] [place], [place] [phone] US INJECTION 07/04/2019 Appointment: Haylee Piper WPtel: [address] [place], [place] [phone] [place] INJECTION 06/20/2019 Appointment: Haylee Piper WPtel: [address] [place], [place] [phone] [place] INJECTION 06/06/2019 Appointment: Haylee Piper WPtel: [address] [place], [place] [phone] [place] 06/02/19 1340---SENT REFILL OF B12 TO [...] : E53.8 05/23/2019 Appointment: Haylee Piper WPtel: [address] [place] [address] US FOLLOW UP 05/23/2019 Appointment: Haylee Piper WPtel: [address] [place], [place] [phone] US INJECTION 05/18/2019 Appointment: Haylee Piper WPtel: [address] [place], [place] [phone] US INJECTION 05/04/2019 Appointment: Haylee Piper WPtel: [address] [place] [phone] US INJECTION 04/27/2019 Appointment: Haylee Piper WPtel: [address] [place], [place] [phone] US INJECTION 04/20/2019 Appointment: Haylee Piper WPtel: [address] [place], [place] [phone] US INJECTION 04/06/2019 Appointment: Haylee Piper WPtel: [address] [place], [place] [phone] US INJECTION 03/23/2019 Visit Diagnosis Plan: Other [...] : D51.9 03/17/2019 Appointment: Haylee Piper WPtel: [address] [place] [address] [place] lm FOLLOW UP 03/17/2019 Care Plan: Referral Order SNOMED-CT : [id number] Pending 03/17/2019 Appointment: Haylee Piper WPtel: [address] [place], [place] [phone] [place] INJECTION 03/14/2019 Appointment: Haylee Piper WPtel: [address] [place] [phone] US INJECTION 03/07/2019 Appointment: Haylee Piper WPtel: [address] [place], [place] [phone] [place] INJECTION 02/24/2019 Appointment: Haylee Piper WPtel: [address] [place] [phone] [place] INJECTION 02/16/2019 Visit Diagnosis Plan: Chronic [...] : R53.83 02/14/2019 Appointment: Haylee Piper WPtel: [address] [place] [phone] [place] FOLLOW UP 02/14/2019 Visit Diagnosis Plan: [...] : J44.9 11/11/2018 Appointment: Haylee Piper WPtel: [address] [place], [place] [phone] [place] FOLLOW UP 11/11/2018 Visit Diagnosis Plan: [...] ICD-10 : J20.9 10/29/2018 Appointment: Chula Balbuena [address] [place], [place] [id number] ACUTE ILLNESS 10/29/2018 Patient Education: prednisone- OptimizeRX Coupon [id number] https://www.Lucidux.com/samplemd/resources/getResource/61/922o088j-2h41-9ax4-73 Completed 10/29/2018 Visit Diagnosis Plan: Acute bronchitis [...] ILLNESS 10/26/2018 Patient Education: doxycycline hyclate- OptimizeRX [facility] [id number] https://www.Lucidux.InTouch Technology/samplemd/resources/getResource/61/540874u4-x90h-2567-7t Completed 10/26/2018 Visit Diagnosis Plan: Chronic obstructive [...] : M54.2 08/11/2018 Appointment: Haylee Piper WPtel: [address] [place], [place] [address] FOLLOW UP 08/11/2018 Appointment: Haylee Piper WPtel: [address] [place], [place] [phone] [place] INJECTION 06/23/2018 Patient Education: Patient Medication [...] ICD-10 : J20.9 06/17/2018 Appointment: Columba Curtis [address] [place] [address] ACUTE ILLNESS 06/17/2018 Patient Education: Patient Medication [...] ICD-10 : K29.00 06/11/2018 Appointment: Columba Curtis [address] [place] [address] ACUTE ILLNESS 06/11/2018 Patient Education: Patient Medication [...] ICD-10 : J20.9 05/18/2018 Appointment: Columba Curtis [address] [place] [address] FOLLOW UP 05/18/2018 Patient Education: Patient Medication [...] ICD-10 : J20.9 05/17/2018 Appointment: Columba Curtis [address] [place] [address] ACUTE ILLNESS 05/17/2018 Patient Education: Patient Medication Summary Completed 05/17/2018 Visit Diagnosis Plan: Other fatigue Discussion: Check CBC, TSH, Free T4 ICD-9 : 780.79 ICD-10 : R53.83 05/12/2018 Visit Diagnosis Plan: 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 Discussion: Following [...] : F51.01 05/12/2018 Appointment: Haylee Piper WPtel: [address] [place] [address] FOLLOW UP 05/12/2018 Patient Education: Patient Medication Summary Completed 05/12/2018 Appointment: Haylee Piper WPtel: [address] [place] [address] [place] CANCELED 09/21/2017 Visit Diagnosis Plan: Candidal [...] ICD-10 : B37.0 07/20/2017 Appointment: Columba Curtis [address] [place] [address] ACUTE ILLNESS 07/20/2017 Patient Education: Patient Medication [...] : B37.0 07/07/2017 Appointment: Haylee Piper WPtel: [address] [place] [address] FOLLOW UP 07/07/2017 Patient Education: Patient Medication Summary Completed 07/07/2017 Visit Diagnosis Plan: Localized edema Discussion: Star t lasix 20mg with potassium every other day and check Chem 7 in 2 weeks Flu shot given ICD-9 : 782.3 ICD-10 : R60.0 06/17/2017 Appointment: Haylee Piper WPtel: [address] [place] [address] FOLLOW UP 06/17/2017 Patient Education: Patient Medication Summary Completed 06/17/2017 Appointment: Haylee Piper WPtel: [address] [place] [address] 05/21/2017 Patient Education: Patient Medication Summary Completed 05/21/2017 Appointment: Haylee Piper WPtel: [address] [place] [address] RESCHEDULED 05/20/2017 Visit Plan: Plan labs within the week CB C, CMP to check anemia, kidney status RTC in [address] Piper and for any worsening before that time. 05/19/2017 Appointment: Mayra Arguello WPtel: [address] [place] [address] Hospital Follow Up 05/19/2017 Patient Education: Patient [...] Supportive care. Rest, Fluids... 02/24/2017 Appointment: Haylee Pipertel: [address] [place], [place] [phone] WORK IN 02/24/2017 Patient Education: Patient Medication [...] : R00.1 01/01/2017 Appointment: Haylee Piper WPtel: [address] [place], [place] [phone] Hospital Follow Up 01/01/2017 Patient Education: Patient Medication Summary Completed 01/01/2017 Visit Diagnosis Plan: Chronic obstructiv e pulmonary disease with (acute) exacerbation Discussion: Exam, vitals and patient fee ling better is reassuring Finish rxs previously given Continue nebs PRN Follow up PRN ICD-9 : 491.21 ICD-10 : J44.1 12/22/2016 Appointment: Susie Paniagua [address] [facility] FOLLOW UP 12/22/2016 Patient Education: Patient Medication [...] : J44.1 12/17/2016 Appointment: Haylee Piper WPtel[facility] [facility] 12/17/2016 Patient Education: Patient [...] : J18.9 12/16/2016 Appointment: Haylee Piper WPtel: [address] [place] [id number] [place] WORK IN 12/16/2016 Patient Education: Patient [...] : J45.21 12/15/2016 Appointment: Haylee Piper WPtel: [address] [place] [id number] [place] WORK IN 12/15/2016 Patient Education: Patient [...] ICD-10 : J20.9 12/11/2016 Appointment: Susie Paniagua [address] [place], [place] [id number] FOLLOW UP 12/11/2016 Patient Education: Patient Medication Summary Completed 12/11/2016 Care Plan: CHEST X-RAY 2VW FRONTAL&LATL LOINC : 61343-1 Pending 12/11/2016 Care Plan: CBC Pending 12/11/2016 Visit Diagnosis Plan: Acute bronchitis, unspecified Di scussion: Injection in clinic today Continue proair Rxs as above Vicks, humidifier, etc Recheck tomorrow in clinic Will get CXR and labs if not starting to improve ICD-9 : 466.0 ICD-10 : J20.9 12/10/2016 Appointment: Susie Paniagua [address] [place] [address] ACUTE ILLNESS 12/10/2016 Patient Education: Patient Medication Summary Completed 12/10/2016 Visit Plan: Flu shot given Breo 100mcg 1 p BID for 2weeks with proair prn Notify if worsening or persists Fwup first part of October and sooner with needed 07/21/2016 Appointment: Haylee Piper WPtel: [address] [place] [address] 07/17 confirmed~sl FOLLOW UP 07/21/2016 Patient Education: Patient Medication Summary Completed 07/21/2016 Visit Plan: GAUTAM Paniagua---wear esteban ssing through weekend and then take off to leave open to air 05/30/2016 Appointment: Haylee Piper WPtel: [address] [place] [address] Consult 05/30/2016 Patient Education: Patient Medication Summary [...] after tdap updated 05/29/2016 Appointment: Susie Paniagua [address] [place] [address] ACUTE ILLNESS 05/29/2016 Patient Education: Patient Medication Summary Completed 05/29/2016 Visit Plan: Continue current meds Patien t sees Dr. Eugene next week to see if would be surgical candidate 03/18/2016 Appointment: Haylee Piper WPtel: [facility] 03/17 confirmed ~sl FOLLOW UP 03/18/2016 Patient Education: Patient Medication Summary Completed 03/18/2016 Visit Plan: Continue to hold atenolol an d monitor BP Take 1/2 of atenolol if BP greater then 150/90 8-10 oz of gatorade daily for next week and hydrate unless develops edema BP check 1week 10/18/2015 Appointment: Haylee Piper WPtel: [address] [place], [place] [phone] [place] FOLLOW UP 10/18/2015 Patient Education: Patient Medication Summary Completed 10/18/2015 Visit Plan: Hold atenolol Hydrate, rest Refuses hospital but agrees will go to [facility] if worsens Recheck tomorrow Check CBC, CMP, CRP now 10/17/2015 Appointment: Haylee Piper WPtel: [address] [place], [place] [phone] WORK IN 10/17/2015 Patient Education: Patient Medication Summary Completed 10/17/2015 Visit Plan: Check CT scan of lungs November 18 Change proair to ventolin Fwup with Dr. Kilgore at end of month 10/10/2015 Appointment: Haylee Piper WPtel: [address] [place], [place] [phone] [place] 10/09 confirmed~lb FOLLOW UP 10/10/2015 Patient Education: Patient Medication Summary Completed 10/10/2015 Visit Plan: Obtain CT scan of chest resu lts Discussed that will likely need repeat scan pending reviewing above results but we will notify him once CT scan results reviewed 08/30/2015 Appointment: Haylee Piper WPtel: [address] [place], [place] [phone] [place] 08/29 appt confirmed cn Hospital Follow Up 08/30 Patient Education: Patient Medication Summary Completed 08/30/2015 Visit Plan: Continue dexilant and add Pe pcid 40mg q HS Discussed may need EGD Update thyroid US Flu shot given 06/25/2015 Appointment: Haylee Piper WPtel: [address] [place], [place] [phone] 06/22 confirmed ~sl FOLLOW UP 06/25/2015 Patient Education: Patient Medication Summary Completed 06/25/2015 Visit Plan: Continue Cymbalta at 120 mg PO daily Follow-up in 6 weeks Encouraged finding interest in a hobbie such as reading 04/25/2015 Appointment: Kat Carmona WPtel: [address] [place] [address] FOLLOW UP 04/25/2015 Patient Education: Patient Medication Summary Completed 04/25/2015 Visit Plan: Increase Cymbalta to 120 mg PO daily Follow-up in [address] Piper 04/11/2015 Appointment: Kat Carmona WPtel: [address] [place] [address] 04/09/2015 spoke with patient to make appointment FOLLOW UP 04/11/2015 Patient Education: Patient Medication Summary Completed 04/11/2015 Visit Plan: Continue Cymbalta, Neurontin Look out for tremor Discussed B12 supplement Given sample of Metanx 02/27/2015 Appointment: Haylee Piper WPtel: [address] [place] [address] 02/26 appt confirmed cn FOLLOW UP 02/28/20 [...] tremors persist 02/08/2015 Appointment: Haylee Piper WPtel: [address] [place] [address] FOLLOW UP 02/08/2015 Patient Education: Patient Medication Summary Completed 02/08/2015 Appointment: Haylee Piper WPtel: [address] [place] [address] [place] NEW PATIENT 01/18/2015 Patient Education: Patient Medication Summary Completed 01/18/2015 Patient Education: [facility] - Saving AutoInj - Cymbalta - 18+ - Dynamic Portal ID Completed 01/18/2015 Referral: Atiya Vernon Jesus WPtel: [facility] [address], [address] [id number] [place] Referral Appointment Requested Instructions Comment . [...] Refuses hospital but agrees will go to [facility] if worsens Recheck tomorrow Check CBC, [...]
--- OUTSIDE RECORDS SUMMARY | 2020-02-05 15:02 | XMS REPORT | CCD ---
Author Author Andrea Piper D.O. [facility] Organization [facility] Address [address] [place] [address] Phone Care Team Providers Care Associate Director Data & Analytics Name Role Phone Haylee Piper D.O. PP Unavailable CCM Unavailable Summary Purpose Interface Exchange Insurance Providers Payer name Policy type / Coverage type Covered democrat ID Effective Begin Date Effective End Date WPS MEDICARE PART B [place] Medicare Part B [id number] Unknown [employer] [place] Medicare Part B [id number] Unknown Family history Mother Diagnosis Age At Onset Breast cancer Unknown Brother Diagnosis Age At Onset Hypertension Unknown Grandfather Diagnosis Age At Onset Myocardial infarction Unknown Social History Social History Element Codes Description Effective Dates Tobacco history SNOMED CT: 201830276 Never smoker 05/18/2015 Marital status Unknown 01/18/2015 Number of children Unknown 3 01/18/2015 Employment Unknown Retired 01/18/[address]: 472330263 Never drinks alcohol 2014 Has the patient [...] R42 10/17/2015 Active 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: [...] Fill Instructions escitalopram 10 mg tablet RxNorm: 165941 1 Tablet(s) Or al QPM for mood--replaces duloxetine 01/04/2020 02/03/2020 Active Zofran 8 mg tablet RxNorm: 967175 1 Tablet(s) Oral as needed fo r nausea 01/04/2020 No Stop Date Active Wellbutrin XL 150 mg 24 hr tablet, extended release RxNorm: 545027 1 Tablet(s) Oral QAM replaces duloxetine 01/04/2020 02/03/2020 Active baclofen 20 mg tablet RxNorm: 821845 TAKE ONE TABLET BY MOUTH EVERY NIGHT AT BEDTIME FOR MUSCLE SPASMS AND TAKE ONE TABLET EVERY MORNING NEEDED 01/02/2020 No Stop Date Active Dexilant 60 mg capsule, delayed release RxNorm: 892311 TAKE ONE CAPSULE BY MOUTH DAILY 12/14/2019 No Stop Date Active Cymbalta 60 mg capsule,delayed release RxNorm: 361057 2 Capsule (s) Oral QD 10/24/2019 01/03/2020 Inactive Dexilant 60 mg capsule, delayed release RxNorm: 757458 TAKE ONE CAPSULE BY MOUTH DAILY 09/19/2019 2019 Inactive Lyrica 50 mg capsule RxNorm: 180863 2 Capsule(s) Oral Q PM for 3 days then 1 po q PM for 3 days then stop 09/05/2019 10/09/2019 Inactive Lyrica 150 mg capsule RxNorm: 059841 1 Capsule(s) Oral every ni ght at bedtime 09/05/2019 09/05/2019 Inactive metoprolol succinate ER 100 mg tablet,extended release 24 hr RxNorm: 744682 1 Tablet(s) Oral QD 08/29/2019 11/27/2019 Inactive hydrocodone 7.5 mg-acetaminophen 325 mg tablet RxNorm: 10108 5 1 Tablet(s) Oral Q4H as needed for pain 08/15/2019 08/21/2019 Inactive Lyrica 150 mg capsule RxNorm: 199767 TAKE ONE CAPSULE BY MOUTH TWICE A DAY 08/11/2019 09/04/2019 Inactive baclofen 20 mg tablet RxNorm: 809306 TAKE ONE TABLET BY MOUTH EVERY NIGHT AT BEDTIME FOR MUSCLE SPASMS AND TAKE ONE TABLET EVERY MORNING NEEDED 08/10/2019 01/01/2020 Inactive Dexilant 60 mg capsule, delayed release RxNorm: 682241 TAKE ONE CAPSULE BY MOUTH DAILY 07/19/2019 09/18/2019 Inactive Cymbalta 60 mg capsule,delayed release RxNorm: 474537 T LASHAUN TWO CAPSULES BY MOUTH DAILY 07/06/2019 10/23/2019 Inactive cyanocobalamin (vit B-12) 1,000 mcg/mL injection solution Rx Norm: 475635 1 Milliliter(s) Intramuscular every two weeks 06/02/2019 06/02/2019 Inac tive cyanocobalamin (vit B-12) 1,000 mcg/mL injection solution Rx Norm: 384731 1 Milliliter(s) Intramuscular every two weeks 05/23/2019 06/01/2019 Inac tive Dexilant 60 mg capsule, delayed release RxNorm: 083433 TAKE ONE CAPSULE BY MOUTH DAILY 05/19/2019 07/17/2019 Inactive Lyrica 150 mg capsule RxNorm: 648914 1 Capsule(s) PO BID 05/11/2019 1 10/09/2018 Inactive Cymbalta 60 mg capsule,delayed release RxNorm: 356327 2 Capsule (s) PO QD 04/04/2019 07/02/2019 Inactive cyanocobalamin (vit B-12) 1,000 mcg/mL injection solution Rx Norm: 887090 1 Milliliter(s) IM QW 03/17/2019 05/22/2019 Inactive Lyrica 150 mg capsule RxNorm: 629428 TAKE ONE CAPSULE BY MOUTH TWICE A DAY 03/08/2019 03/09/2019 Inactive cyanocobalamin (vit B-12) 1,000 mcg/mL injection solution Rx Norm: 509623 1 Milliliter(s) IM QW 02/16/2019 03/16/2019 Inactive Lyrica 150 mg capsule RxNorm: 432649 TAKE ONE CAPSULE BY MOUTH TWICE A DAY 02/08/2019 03/08/2019 Inactive Dexilant 60 mg capsule, delayed release RxNorm: 549039 1 Capsul e(s) PO QD 02/08/2019 05/08/2019 Inactive Dexilant 60 mg capsule, delayed release RxNorm: 341303 TAKE ONE CAPSULE BY MOUTH DAILY 01/03/2019 02/08/2019 Inactive Lyrica 150 mg capsule RxNorm: 416450 1 Capsule(s) PO BID 01/03/2019 0 02/08/2019 Inactive Cymbalta 60 mg capsule,delayed release RxNorm: 768572 T LASHAUN TWO CAPSULES BY MOUTH DAILY 12/27/2018 04/04/2019 Inactive Dexilant 60 mg capsule, delayed release RxNorm: 769620 TAKE ONE CAPSULE BY MOUTH DAILY 12/07/2018 01/02/2019 Inactive prednisone 20 mg tablet RxNorm: 722186 Take 3 tabs by m outh for 3 days, then 2 tabs by mouth for 3 days, then 1 tab by mouth for 3 days Take 2 tabs for 10/29/2018 11/07/2018 Inactive doxycycline hyclate 100 mg tablet RxNorm: 6472943 1 Tablet(s) PO BI D 10/26/2018 11/04/2018 Inactive doxycycline hyclate 100 mg tablet RxNorm: 8393792 1 Tablet(s) PO BI D 10/26/2018 10/25/2018 Inactive Dexilant 60 mg capsule, delayed release RxNorm: 855835 TAKE ONE CAPSULE BY MOUTH DAILY 10/04/2018 12/06/2018 Inactive Lyrica 150 mg capsule RxNorm: 315841 TAKE ONE CAPSULE BY MOUTH TWICE A DAY 10/04/2018 11/02/2018 Inactive baclofen 20 mg tablet RxNorm: 720305 1 Tablet(s) PO QHS for muscle spasm and q AM prn 08/11/2018 08/09/2019 Inactive Lyrica 150 mg capsule RxNorm: 932436 1 Capsule(s) PO BID 08/06/2018 0 10/04/2018 Inactive Dexilant 60 mg capsule, delayed release RxNorm: 115577 TAKE ONE CAPSULE BY MOUTH DAILY 07/07/2018 10/03/2018 Inactive Cymbalta 60 mg capsule,delayed release RxNorm: 530447 T LASHAUN TWO CAPSULES BY MOUTH DAILY 06/28/2018 12/24/2018 Inactive prednisone 20 mg tablet RxNorm: 918535 1 Tablet(s) PO BID 06/17/2018 06/21/2018 Inactive Zithromax Z-Osman 250 mg tablet RxNorm: 330878 Tablet(s) PO take as directed 06/17/2018 08/10/2018 Inactive Flagyl 500 mg tablet RxNorm: 803480 1 Tablet(s) PO BID 06/11/2018 Inactive Cipro 250 mg tablet RxNorm: 512416 1 Tablet(s) PO BID 06/11/201805/31 Inactive atenolol 50 mg tablet RxNorm: 332211 1 Tablet(s) PO BID 05/31/2018 Inactive albuterol sulfate 2.5 mg/3 mL (0.083 %) solution for n ebulization RxNorm: 949017 3 Milliliter(s) INH Q4H as needed 05/17/2018 No Stop Date Active Zithromax Z-Osman 250 mg tablet RxNorm: 136253 Tablet(s) PO take as directed 05/17/2018 06/10/2018 Inactive Lyrica 150 mg capsule RxNorm: 839576 1 Capsule(s) PO BID 05/12/2018 1 10/07/2017 Inactive hydrocodone 7.5 mg-acetaminophen 325 mg tablet RxNorm: 92543 5 1 Tablet(s) PO Q4H as needed for pain 05/12/2018 05/18/2018 Inactive Cymbalta 60 mg capsule,delayed release RxNorm: 130210 T LASHAUN TWO CAPSULES BY MOUTH DAILY 04/01/2018 04/04/2018 Inactive Lyrica 100 mg capsule RxNorm: 180801 Capsule(s) TAKE ON E CAPSULE BY MOUTH TWICE A DAY 03/01/2018 05/11/2018 Inactive Dexilant 60 mg capsule, delayed release RxNorm: 577957 1 Capsul e(s) PO QD 01/06/2018 07/04/2018 Inactive atenolol 50 mg tablet RxNorm: 191774 1 Tablet(s) PO BID 12/30/2017 Inactive Lyrica 100 mg capsule RxNorm: 432647 Capsule(s) TAKE ON E CAPSULE BY MOUTH TWICE A DAY 12/30/2017 02/26/2018 Inactive Cymbalta 60 mg capsule,delayed release RxNorm: 982892 2 Capsule (s) PO QD 12/30/2017 03/29/2018 Inactive ProAir HFA 90 mcg/actuation aerosol inhaler RxNorm: 955724 INHALE 2 PUFFS FOUR TIMES A DAY 11/12/2017 01/25/2018 Inactive Cymbalta 60 mg capsule,delayed release RxNorm: 008089 2 Capsule (s) PO QD 10/06/2017 12/30/2017 Inactive Lyrica 100 mg capsule RxNorm: 016207 TAKE ONE CAPSULE BY MOUTH TWICE A DAY 09/28/2017 10/26/2017 Inactive Lyrica 100 mg capsule RxNorm: 940594 1 Capsule(s) PO BID 08/26/2017 0 09/28/2017 Inactive Zithromax Z-Osman 250 mg tablet RxNorm: 888720 Tablet(s) PO As Di rected 08/07/2017 05/11/2018 Inactive Diflucan 150 mg tablet RxNorm: 795872 1 Tablet(s) PO Q72H 07/20/2017 05/11/2018 Inactive nystatin 100,000 unit/mL oral suspension RxNorm: 589420 5 Milliliter(s) PO QID swish and spit for 2 weeks 07/07/2017 07/20/2017 Inactive fluconazole 100 mg tablet RxNorm: 375722 1 Tablet(s) PO QD 07/07/20 07/13/2017 Inactive Dexilant 60 mg capsule, delayed release RxNorm: 659372 1 Capsul e(s) PO QD 07/01/2017 01/06/2018 Inactive Cymbalta 60 mg capsule,delayed release RxNorm: 418405 2 Capsule (s) PO QD 07/01/2017 09/28/2017 Inactive atenolol 50 mg tablet RxNorm: 388166 1 Tablet(s) PO BID 06/17/2017 Inactive atenolol 50 mg tablet RxNorm: 841044 1 Tablet(s) PO BID 06/17/2017 Inactive atenolol 25 mg tablet RxNorm: 281520 1 Tablet(s) PO QD 06/16/2017 Inactive Cipro 250 mg tablet RxNorm: 206032 1 Tablet(s) PO BID 05/26/201705/02 Inactive Cipro 250 mg tablet RxNorm: 347132 1 Tablet(s) PO BID 05/26/201710/2016 Inactive Cymbalta 60 mg capsule,delayed release RxNorm: 275058 2 Capsule (s) PO QD 04/02/2017 07/01/2017 Inactive Zanaflex 4 mg tablet RxNorm: 664517 1 Tablet(s) PO BID as neede d for spasm 03/18/2017 05/11/2018 Inactive methocarbamol 750 mg tablet RxNorm: 512182 1 Tablet(s) PO TID as needed for muscle spasm 03/17/2017 03/17/2017 Inactive Cymbalta 60 mg capsule,delayed release RxNorm: 347006 T LASHAUN TWO CAPSULES BY MOUTH DAILY 01/01/2017 04/02/2017 Inactive atenolol 25 mg tablet RxNorm: 501816 1 Tablet(s) PO QD 01/01/2017 Inactive Dexilant 60 mg capsule, delayed release RxNorm: 726978 1 Capsul e(s) PO QD 12/24/2016 07/01/2017 Inactive prednisone 20 mg tablet RxNorm: 659155 1 Tablet(s) PO BID 12/17/2016 12/23/2016 Inactive doxycycline hyclate 100 mg capsule RxNorm: 4187239 1 Capsule(s) PO BID 12/11/2016 12/20/2016 Inactive doxycycline hyclate 100 mg capsule RxNorm: 7781051 1 Capsule(s) PO BID 12/11/2016 12/10/2016 Inactive albuterol sulfate 2.5 mg/3 mL (0.083 %) solution for n ebulization RxNorm: 697766 3 Milliliter(s) INH Q4H as needed 12/11/2016 05/16/2018 Inactiv e guaifenesin 400 mg tablet RxNorm: 587837 1 Tablet(s) PO QID 017 05/11/2018 Inactive Tessalon Perles 100 mg capsule RxNorm: 145336 1 Capsule (s) PO TID as needed for cough 12/10/2016 12/31/2016 Inactive ProAir HFA 90 mcg/actuation aerosol inhaler RxNorm: 300249 INHALE 2 PUFFS FOUR TIMES A DAY 08/12/2016 11/12/2017 Inactive Dexilant 60 mg capsule, delayed release RxNorm: 057507 TAKE ONE CAPSULE BY MOUTH DAILY 06/16/2016 12/24/2016 Inactive Cymbalta 60 mg capsule,delayed release RxNorm: 373097 2 Capsule (s) PO QD 06/16/2016 12/12/2016 Inactive zolpidem 10 mg tablet RxNorm: 781577 TAKE ONE TABLET BY MOUTH A T BEDTIME 03/10/2016 05/28/2016 Inactive Dexilant 60 mg capsule, delayed release RxNorm: 634242 TAKE ONE CAPSULE BY MOUTH DAILY 02/06/2016 06/04/2016 Inactive Cymbalta 60 mg capsule,delayed release RxNorm: 703571 2 Capsule (s) PO QD 11/19/2015 05/16/2016 Inactive zolpidem 10 mg tablet RxNorm: 951724 TAKE ONE TABLET BY MOUTH A T BEDTIME 10/02/2015 03/10/2016 Inactive Dexilant 60 mg capsule, delayed release RxNorm: 585346 TAKE ONE CAPSULE BY MOUTH DAILY 08/28/2015 01/24/2016 Inactive ProAir HFA 90 mcg/actuation aerosol inhaler RxNorm: 825990 2 Pu ff(s) INH QID 06/25/2015 10/22/2015 Inactive famotidine 40 mg tablet RxNorm: 049175 1 Tablet(s) PO QHS 06/25/2015 10/09/2015 Inactive Dexilant 60 mg capsule, delayed release RxNorm: 959028 1 Capsul e(s) PO QD 06/07/2015 08/27/2015 Inactive zolpidem 10 mg tablet RxNorm: 759658 TAKE ONE TABLET BY MOUTH EVERY NIGHT AT BEDTIME 06/01/2015 10/03/2015 Inactive Cymbalta 60 mg capsule,delayed release RxNorm: 019689 2 Capsule (s) PO QD 05/10/2015 11/19/2015 Inactive Cymbalta 60 mg capsule,delayed release RxNorm: 419607 2 Capsule (s) PO QD 04/11/2015 05/10/2015 Inactive zolpidem 10 mg tablet RxNorm: 994889 TAKE ONE TABLET BY MOUTH A T BEDTIME 04/06/2015 06/01/2015 Inactive zolpidem 10 mg tablet RxNorm: 986763 TAKE ONE TABLET BY MOUTH A T BEDTIME 03/05/2015 04/06/2015 Inactive zolpidem 10 mg tablet RxNorm: 639026 1 Tablet(s) PO QHS as need ed for sleep 02/27/2015 03/04/2015 Inactive Cymbalta 60 mg capsule,delayed release RxNorm: 920607 1 Capsule (s) PO QD 01/18/2015 04/10/2015 Inactive [AttnRPh: Saving clare ly/adjudicate RxGRP:[id number] RxBIN:[id number] RxPCN: ID#:[id number]] Trazadone 75mg Tablet RxNorm: 1-2 Tablet(s) PO QHS as ne eded for sleep 01/18/2015 02/26/2015 Inactive Singulair 10 mg tablet RxNorm: 945062 1 Tablet(s) PO QD No Start Date Active Tylenol Extra Strength 500 mg tablet RxNorm: 965553 Tablet(s) P O as needed No Start Date Active methocarbamol 750 mg tablet RxNorm: 194721 Tablet(s) PO as needed N o Start Date Active Vitamin D3 1,000 unit capsule RxNorm: 107898 1 Capsule(s) PO BID No Start Date Active aspirin 81 mg tablet RxNorm: 846640 1 Tablet(s) PO QD No Start Date Active Symbicort 160 mcg-4.5 mcg/actuation HFA aerosol inhaler RxNo rm: 6583120 2 Puff(s) INH BID No Start Date Active atorvastatin 40 mg tablet RxNorm: 970796 1 Tablet(s) PO QD No Start D ate Active Trazadone 100 100mg mg Tablet RxNorm: 1-2 Tablet(s) PO QHS No Start Date 01/17/2015 Inactive Fish Oil 1,000 mg capsule RxNorm: 1 Capsule(s) PO QD No Start Date 05/16/2018 Inactive multivitamin with iron tablet RxNorm: 1 Tablet(s) PO QD No Sta rt Date 05/16/2018 Inactive Spiriva Respimat inhalation RxNorm: 813404 inhalation No Start Date 1 09/05/2016 Inactive atenolol 25 mg tablet RxNorm: 111902 1 Tablet(s) PO BID No Start Da te 12/31/2016 Inactive Spiriva Respimat 2.5 mcg/actuation solution for inhalation R xNorm: 4124661 2 Puff(s) INH QD No Start Date 05/11/2018 Inactive Zithromax Z-Osman 250 mg tablet RxNorm: 229794 Tablet(s) PO As Di rected No Start Date 08/06/2017 Inactive Zanaflex 4 mg tablet RxNorm: 701612 1 Tablet(s) PO BID as neede d for spasm No Start Date 03/17/2017 Inactive gabapentin 800 mg tablet RxNorm: 321048 1 Tablet(s) PO TID No Start Date 03/17/2016 Inactive losartan 100 mg tablet RxNorm: 707993 1 Tablet(s) PO QD No Start Da te 12/31/2016 Inactive cyclobenzaprine 10 mg tablet RxNorm: 485075 1 Tablet(s) PO TID as needed for muscle spasm No Start Date 05/11/2018 Inactive potassium chloride ER 10 mEq tablet,extended release RxNorm: 579947 Tablet(s) PO as needed No Start Date 01/04/2020 Inactive gabapentin 300 mg capsule RxNorm: 593202 1 Capsule(s) PO TID No Sta rt Date 10/09/2015 Inactive furosemide 40 mg tablet RxNorm: 957827 Tablet(s) PO as needed No St art Date 01/04/2020 Inactive ferrous sulfate 325 mg (65 mg iron) tablet RxNorm: 244571 1 Tab let(s) PO QD No Start Date 09/04/2019 Inactive Dexilant 60 mg capsule, delayed release RxNorm: 484601 1 Capsul e(s) PO QD No Start Date 06/06/2015 Inactive amitriptyline 25 mg tablet RxNorm: 753567 1-2 Tablet(s) PO QHS as needed for sleep --replaces ambien No Start Date 07/20/2016 Inactive hydrocodone 7.5 mg-acetaminophen 325 mg tablet RxNorm: 63296 5 1 Tablet(s) PO TID No Start Date 05/11/2018 Inactive Lyrica 75 mg capsule RxNorm: 469671 1 Capsule(s) PO BID No Start Da te 05/11/2018 Inactive gabapentin 300 mg capsule RxNorm: 450338 1 Capsule(s) PO QHS No Sta rt Date 02/07/2015 Inactive Lyrica 50 mg capsule RxNorm: 090333 1 Capsule(s) PO BID No Start Da te 07/20/2016 Inactive zolpidem 10 mg tablet RxNorm: 203769 1 Tablet(s) PO QHS No Start Da te 02/07/2015 Inactive citalopram 40 mg tablet RxNorm: 949165 1 Tablet(s) PO QD No Start D ate 01/17/2015 Inactive hydrocodone 7.5 mg-acetaminophen 325 mg tablet RxNorm: 12024 5 1 Tablet(s) PO Q6H as needed for pain No Start Date 03/17/2016 Inactive losartan 100 mg tablet RxNorm: 458896 1/2 Tablet(s) PO QD No Start Date 05/18/2017 Inactive cyanocobalamin (vit B-12) 1,000 mcg/mL injection solution Rx Norm: 944351 1 Milliliter(s) IM QW No Start Date 02/15/2019 Inactive ProAir HFA 90 mcg/actuation aerosol inhaler RxNorm: 5121128 2 Pu ff(s) INH TID No Start Date 06/24/2015 Inactive methocarbamol 750 mg tablet RxNorm: 386335 1 Tablet(s) PO TID as needed for [...] Item Code Result Date S ervice Location [facility] 7023027 Neutrophil 27 % 10/11/2019 Unknown [facility] [id number] BAND 0 % 10/11/2019 Unknown [facility] [id number] Lymphocyte 59 % 10/11/2019 Unknown [facility] [id number] Monocyte 13 % 10/11/2019 Unknown [facility] [id number] Eosinophil 1 % 10/11/2019 Unknown [facility] [id number] Basophil 0 % 10/11/2019 Unknown [facility] 7645311 Platelet Est Decreased 10/11/2019 Unkno wn [facility] [id number] Large Plts Present 10/11/2019 Unknown COMPLETE BLOOD COUNT [id number] WBC 2.4 10e9/L 10/10/19 20 Unknown COMPLETE BLOOD COUNT [id number] RBC 3.15 10e12/L 2019 Unknown COMPLETE BLOOD COUNT [id number] HEMOGLOBIN 11.4 g/dL 10/10/19 20 Unknown COMPLETE BLOOD COUNT [id number] HEMATOCRIT 35.0 % 10/10/19 20 Unknown COMPLETE BLOOD COUNT [id number] MCV 111.1 fL 0 Unknown COMPLETE BLOOD COUNT [id number] MCH 36.2 pg 0 Unknown COMPLETE BLOOD COUNT [id number] MCHC 32.6 g/dL 0 Unknown COMPLETE BLOOD COUNT [id number] PLATELET COUNT 18 10e9/L 10/01 Unknown COMPLETE BLOOD COUNT [id number] Mean Plt Volume 11.3 fL 05/2020 Unknown COMPLETE BLOOD COUNT [id number] Neut Auto 27.9 % 0 Unknown COMPLETE BLOOD COUNT [id number] Lymph Auto 58.5 % 10/10/19 20 Unknown COMPLETE BLOOD COUNT [id number] Sutter Auto 12.0 % 0 Unknown COMPLETE BLOOD COUNT [id number] RDW 14.0 % 0 Unknown COMPLETE BLOOD COUNT [id number] Eos Auto 0.4 % 0 Unknown COMPLETE BLOOD COUNT [id number] Baso Auto 1.2 % 0 Unknown COMPLETE BLOOD COUNT [id number] Neutrophil Abs 0.67 10e9/L Unknown COMPLETE BLOOD COUNT [id number] Lymphocyte Abs 1.40 10e9/L Unknown COMPLETE BLOOD COUNT [id number] Monocyte Abs 0.29 10e9/L 10/01 Unknown COMPLETE BLOOD COUNT [id number] Eosinophil Abs 0.01 10e9/L Unknown COMPLETE BLOOD COUNT [id number] RDW-SD 54.2 fL 0 Unknown COMPLETE BLOOD COUNT [id number] Basophil Abs 0.03 10e9/L 10/01 Unknown NCDF [id number] Neutrophil 32 % 08/30/2019 Unknown NCDF [id number] BAND 4 % 08/30/2019 Unknown NCDF [id number] Lymphocyte 43 % 08/30/2019 Unknown NCDF 3387049 Monocyte 20 % 08/30/2019 Unknown NCDF 9317353 Eosinophil 1 % 08/30/2019 Unknown NCDF [id number] Basophil 0 % 08/30/2019 Unknown NCDF 3032330 Platelet Est Decreased 08/30/2019 Unkno wn VITAMIN B 12 89261 VITAMIN B12 716 pg/mL 08/29/2019 Unkn own COMPLETE BLOOD COUNT [id number] WBC 3.0 10e9/L 08/29/20 19 Unknown COMPLETE BLOOD COUNT [id number] RBC 3.19 10e12/L 2018 Unknown COMPLETE BLOOD COUNT [id number] HEMOGLOBIN 11.5 g/dL 08/29/20 19 Unknown COMPLETE BLOOD COUNT [id number] HEMATOCRIT 35.6 % 08/29/20 19 Unknown COMPLETE BLOOD COUNT [id number] MCV 111.6 fL 9 Unknown COMPLETE BLOOD COUNT [id number] MCH 36.1 pg 9 Unknown COMPLETE BLOOD COUNT [id number] MCHC 32.3 g/dL 9 Unknown COMPLETE BLOOD COUNT [id number] PLATELET COUNT 79 10e9/L 08/02 Unknown COMPLETE BLOOD COUNT [id number] Mean Plt Volume 11.1 fL Unknown COMPLETE BLOOD COUNT [id number] Neut Auto 32.7 % 9 Unknown COMPLETE BLOOD COUNT [id number] Lymph Auto 39.6 % 08/29/20 19 Unknown COMPLETE BLOOD COUNT [id number] Sutter Auto 24.4 % 9 Unknown COMPLETE BLOOD COUNT 3121043 RDW 14.0 % 9 Unknown COMPLETE BLOOD COUNT [id number] Eos Auto 2.0 % 9 Unknown COMPLETE BLOOD COUNT [id number] Baso Auto 1.3 % 9 Unknown COMPLETE BLOOD COUNT [id number] Neutrophil Abs 0.98 10e9/L Unknown COMPLETE BLOOD COUNT [id number] Lymphocyte Abs 1.19 10e9/L Unknown COMPLETE BLOOD COUNT [id number] Monocyte Abs 0.73 10e9/L 08/02 Unknown COMPLETE BLOOD COUNT [id number] Eosinophil Abs 0.06 10e9/L Unknown COMPLETE BLOOD COUNT [id number] RDW-SD 54.5 fL 9 Unknown COMPLETE BLOOD COUNT [id number] Basophil Abs 0.04 10e9/L 08/02 Unknown NCDF 1836292 Neutrophil 37 % 05/24/2019 Unknown NCDF [id number] BAND 5 % 05/24/2019 Unknown NCDF [id number] Lymphocyte 34 % 05/24/2019 Unknown NCDF 4721355 Monocyte 19 % 05/24/2019 Unknown NCDF [id number] Eosinophil 3 % 05/24/2019 Unknown NCDF 1704761 Basophil 2 % 05/24/2019 Unknown NCDF [id number] Platelet Est Adequate 05/24/2019 Unknow n VITAMIN B 12 44115 VITAMIN B12 788 pg/mL 05/23/2019 Unkn own IRON 35223 Iron 152 ug/dL 05/23/2019 Unknown COMPLETE BLOOD COUNT [id number] WBC 3.9 10e9/L 05/23/20 19 Unknown COMPLETE BLOOD COUNT [id number] RBC 3.61 10e12/L 2018 Unknown COMPLETE BLOOD COUNT [id number] HEMOGLOBIN 12.5 g/dL 05/23/20 19 Unknown COMPLETE BLOOD COUNT [id number] HEMATOCRIT 38.2 % 05/23/20 19 Unknown COMPLETE BLOOD COUNT [id number] MCV 105.8 fL 9 Unknown COMPLETE BLOOD COUNT [id number] MCH 34.6 pg 9 Unknown COMPLETE BLOOD COUNT [id number] MCHC 32.7 g/dL 9 Unknown COMPLETE BLOOD COUNT [id number] PLATELET COUNT 157 10e9/L Unknown COMPLETE BLOOD COUNT 8738544 Mean Plt Volume 10.4 fL Unknown COMPLETE BLOOD COUNT 7370668 Neut Auto 35.6 % 9 Unknown COMPLETE BLOOD COUNT [id number] Lymph Auto 33.2 % 05/23/20 19 Unknown COMPLETE BLOOD COUNT [id number] Sutter Auto 26.6 % 9 Unknown COMPLETE BLOOD COUNT 9343766 RDW 14.1 % 9 Unknown COMPLETE BLOOD COUNT [id number] Eos Auto 1.8 % 9 Unknown COMPLETE BLOOD COUNT [id number] Baso Auto 2.8 % 9 Unknown COMPLETE BLOOD COUNT [id number] Neutrophil Abs 1.39 10e9/L Unknown COMPLETE BLOOD COUNT [id number] Lymphocyte Abs 1.29 10e9/L Unknown COMPLETE BLOOD COUNT [id number] Monocyte Abs 1.04 10e9/L 05/02 Unknown COMPLETE BLOOD COUNT [id number] Eosinophil Abs 0.07 10e9/L Unknown COMPLETE BLOOD COUNT [id number] RDW-SD 53.5 fL 9 Unknown COMPLETE BLOOD COUNT [id number] Basophil Abs 0.11 10e9/L 05/02 Unknown COMPLETE BLOOD COUNT [id number] WBC 5.4 10e9/L 06/11/20 18 Unknown COMPLETE BLOOD COUNT [id number] RBC 4.05 10e12/L 2017 Unknown COMPLETE BLOOD COUNT [id number] HEMOGLOBIN 13.5 g/dL 06/11/20 18 Unknown COMPLETE BLOOD COUNT [id number] HEMATOCRIT 41.3 % 06/11/20 18 Unknown COMPLETE BLOOD COUNT [id number] MCV 102.0 fL 8 Unknown COMPLETE BLOOD COUNT [id number] MCH 33.3 pg 8 Unknown COMPLETE BLOOD COUNT 3370305 MCHC 32.7 g/dL 8 Unknown COMPLETE BLOOD COUNT [id number] PLATELET COUNT 210 10e9/L 07/2018 Unknown COMPLETE BLOOD COUNT [id number] Mean Plt Volume 10.0 fL 07/2018 Unknown COMPLETE BLOOD COUNT [id number] Neut Auto 35.2 % 8 Unknown COMPLETE BLOOD COUNT [id number] Lymph Auto 29.2 % 06/11/20 18 Unknown COMPLETE BLOOD COUNT [id number] Sutter Auto 17.3 % 8 Unknown COMPLETE BLOOD COUNT [id number] RDW 13.8 % 8 Unknown COMPLETE BLOOD COUNT [id number] Eos Auto 16.4 % 8 Unknown COMPLETE BLOOD COUNT [id number] Baso Auto 1.9 % 8 Unknown COMPLETE BLOOD COUNT [id number] Neutrophil Abs 1.90 10e9/L Unknown COMPLETE BLOOD COUNT [id number] Lymphocyte Abs 1.58 10e9/L Unknown COMPLETE BLOOD COUNT [id number] Monocyte Abs 0.93 10e9/L 05/31 Unknown COMPLETE BLOOD COUNT [id number] Eosinophil Abs 0.89 10e9/L Unknown COMPLETE BLOOD COUNT [id number] RDW-SD 50.2 fL 8 Unknown COMPLETE BLOOD COUNT [id number] Basophil Abs 0.10 10e9/L 05/31 Unknown GFR CALC [id number] GFR Non Afr Amr >60 mL/min 06/11/2018 Un known GFR CALC [id number] GFR Afr Amr >60 mL/min 06/11/2018 Unknow n COMPREHENSIVE METABOLIC 70138 AST 15 U/L 2017 Unknown COMPREHENSIVE METABOLIC 36382 ALT 18 U/L 2017 Unknown COMPREHENSIVE METABOLIC 59360 BUN 11 mg/dL 2017 Unknown COMPREHENSIVE METABOLIC 09791 ALBUMIN 3.7 g/dL 2017 Unknown COMPREHENSIVE METABOLIC 88643 CHLORIDE 102 mmol/L 06/11 Unknown COMPREHENSIVE METABOLIC 59487 Bili Total 0.6 mg/dL 06/11 Unknown COMPREHENSIVE METABOLIC 42171 ALK PHOS 98 U/L 2017 Unknown COMPREHENSIVE METABOLIC 83093 SODIUM 139 mmol/L 06/11 Unknown COMPREHENSIVE METABOLIC 21998 CREATININE 0.89 mg/dL 05/31 Unknown COMPREHENSIVE METABOLIC 13077 CALCIUM 8.7 mg/dL 2017 Unknown COMPREHENSIVE METABOLIC 31072 POTASSIUM 3.9 mmol/L 06/11 Unknown COMPREHENSIVE METABOLIC 49348 Total Protein 6.7 g/dL Unknown COMPREHENSIVE METABOLIC 63044 Glucose 112 mg/dL 2017 Unknown COMPREHENSIVE METABOLIC 04325 Bicarbonate 35 mmol/L 05/31 Unknown COMPREHENSIVE METABOLIC 00325 AGAP 2 mmol/L 2017 Unknown COMPLETE BLOOD COUNT [id number] WBC 7.4 10e9/L 10/17/19 16 Unknown COMPLETE BLOOD COUNT [id number] RBC 4.42 10e12/L 2015 Unknown COMPLETE BLOOD COUNT [id number] HGB 13.8 g/dL 6 Unknown COMPLETE BLOOD COUNT [id number] HCT DET 40.8 % 6 Unknown COMPLETE BLOOD COUNT [id number] MCV 92.3 fL 6 Unknown COMPLETE BLOOD COUNT [id number] MCH 31.2 pg 6 Unknown COMPLETE BLOOD COUNT [id number] MCHC 33.8 g/dL 6 Unknown COMPLETE BLOOD COUNT 8139408 PLT 247 10e9/L 10/17/19 16 Unknown COMPLETE BLOOD COUNT [id number] MPV 9.3 fL 6 Unknown COMPLETE BLOOD COUNT 5344233 YANNICK % 63.0 % 6 Unknown COMPLETE BLOOD COUNT 9854408 LY % 19.2 % 6 Unknown COMPLETE BLOOD COUNT [id number] MON % 15.8 % 6 Unknown COMPLETE BLOOD COUNT [id number] EOS % 1.1 % 6 Unknown COMPLETE BLOOD COUNT [id number] BASO % 0.9 % 6 Unknown COMPLETE BLOOD COUNT [id number] RDW 13.7 % 6 Unknown COMPLETE BLOOD COUNT [id number] ABS YANNICK 4.66 10e9/L 016 Unknown COMPLETE BLOOD COUNT [id number] ABS LYMPH 1.42 10e9/L 016 Unknown COMPLETE BLOOD COUNT [id number] ABS MONO 1.17 10e9/L 016 Unknown COMPLETE BLOOD COUNT [id number] ABS EOS 0.08 10e9/L 016 Unknown COMPLETE BLOOD COUNT [id number] ABS BASO 0.07 10e9/L 016 Unknown COMPLETE BLOOD COUNT [id number] RDW-SD 44.9 fL 6 Unknown GFR CALC [id number] GFR AA 46.0L ML/MIN 10/17/2015 Unknow n GFR CALC [id number] GFR NON-AA 37.0L ML/MIN 10/17/2015 Unkno wn C-REACTIVE PROTEIN (CRP) QUANT 61122 CRP 0.5 MG/DL 10/17/2015 Unknown COMPREHENSIVE METABOLIC 82033 AST 18 U/L 2015 Unknown COMPREHENSIVE METABOLIC 37936 ALT 27 U/L 2015 Unknown COMPREHENSIVE METABOLIC 28800 BUN 38 MG/DL 2015 Unknown COMPREHENSIVE METABOLIC 03054 ALBUMIN 3.7 GM/DL 2015 Unknown COMPREHENSIVE METABOLIC 94968 CHLORIDE 100 MMOL/L 10/17 Unknown COMPREHENSIVE METABOLIC 51619 BILI TOT 0.8 MG/DL 2015 Unknown COMPREHENSIVE METABOLIC 40554 ALK PHOS 70 U/L 2015 Unknown COMPREHENSIVE METABOLIC 69465 SODIUM 137 MMOL/L 10/17 Unknown COMPREHENSIVE METABOLIC 74914 CREATININE 1.80 MG/DL 10/01 Unknown COMPREHENSIVE METABOLIC 40375 CALCIUM 8.9 MG/DL 2015 Unknown COMPREHENSIVE METABOLIC 45670 POTASSIUM 5.1 MMOL/L 10/17 Unknown COMPREHENSIVE METABOLIC 37608 PROT TOT 6.6 GM/DL 2015 Unknown COMPREHENSIVE METABOLIC 33835 Glucose 99 MG/DL 2015 Unknown COMPREHENSIVE METABOLIC 05101 BICARB 22 MMOL/L 2015 Unknown COMPREHENSIVE METABOLIC 21653 ANION GAP 15 MMOL/L 2015 Unknown Procedures Procedure Codes Date ROUTINE VENIPUNCTURE CPT-4: 44656 10/10/2019 COMPLETE CBC W/AUTO DIFF WBC CPT-4: 25606 10/10/2019 THER/PROPH/DIAG INJ SC/IM CPT-4: 90757 09/20/2019 TRIAMCINOLONE ACET INJ NOS CPT-4: J3301 09/20/2019 CEFTRIAXONE SODIUM INJECTION CPT-4: J0696 09/20/2019 THER/PROPH/DIAG INJ SC/IM CPT-4: 89512 09/20/2019 THER/PROPH/DIAG INJ SC/IM CPT-4: 47765 09/19/2019 METHYLPREDNISOLONE INJECTION CPT-4: J2930 09/19/2019 CEFTRIAXONE SODIUM INJECTION CPT-4: J0696 09/19/2019 THER/PROPH/DIAG INJ SC/IM CPT-4: 99639 09/19/2019 ROUTINE VENIPUNCTURE CPT-4: 12679 08/29/2019 COMPLETE CBC W/AUTO DIFF WBC CPT-4: 95964 08/29/2019 VITAMIN B-12 CPT-4: 42048 08/29/2019 THER/PROPH/DIAG INJ SC/IM CPT-4: 68922 08/29/2019 THER/PROPH/DIAG INJ SC/IM CPT-4: 06841 08/15/2019 THER/PROPH/DIAG INJ SC/IM CPT-4: 42167 08/01/2019 THER/PROPH/DIAG INJ SC/IM CPT-4: 79327 07/18/2019 THER/PROPH/DIAG INJ SC/IM CPT-4: 65001 07/04/2019 THER/PROPH/DIAG INJ SC/IM CPT-4: 79873 06/20/2019 FLU VACC PRSV FREE INC ANTIG 65 AND OLDER CPT-4: 96616 06/06/2019 THER/PROPH/DIAG INJ SC/IM CPT-4: 85847 06/06/2019 FLU VACC PRSV FREE INC ANTIG 65 AND OLDER CPT-4: 37503 06/06/2019 PNEUMOCOCCAL VACC 23 GAIL IM CPT-4: 50374 06/06/2019 ADMIN INFLUENZA VIRUS VAC CPT-4: G0008 06/06/2019 ADMIN PNEUMOCOCCAL VACCINE CPT-4: G0009 06/06/2019 ROUTINE VENIPUNCTURE CPT-4: 57868 05/23/2019 COMPLETE CBC W/AUTO DIFF WBC CPT-4: 28590 05/23/2019 ASSAY OF IRON CPT-4: 63045 05/23/2019 VITAMIN B-12 CPT-4: 85362 05/23/2019 THER/PROPH/DIAG INJ SC/IM CPT-4: 76773 05/18/2019 THER/PROPH/DIAG INJ SC/IM CPT-4: 51530 05/04/2019 THER/PROPH/DIAG INJ SC/IM CPT-4: 04131 04/27/2019 THER/PROPH/DIAG INJ SC/IM CPT-4: 44586 04/20/2019 THER/PROPH/DIAG INJ SC/IM CPT-4: 02596 04/06/2019 THER/PROPH/DIAG INJ SC/IM CPT-4: 48935 03/23/2019 VITAMIN B12 INJECTION CPT-4: J3420 03/23/2019 THER/PROPH/DIAG INJ SC/IM CPT-4: 89419 03/14/2019 THER/PROPH/DIAG INJ SC/IM CPT-4: 68576 03/07/2019 THER/PROPH/DIAG INJ SC/IM CPT-4: 44484 02/24/2019 THER/PROPH/DIAG INJ SC/IM CPT-4: 06453 02/16/2019 CEFTRIAXONE SODIUM INJECTION CPT-4: J0696 10/29/2018 THER/PROPH/DIAG INJ SC/IM CPT-4: 98938 10/29/2018 THER/PROPH/DIAG INJ SC/IM CPT-4: 56754 10/26/2018 METHYLPREDNISOLONE INJECTION CPT-4: J2930 10/26/2018 THER/PROPH/DIAG INJ SC/IM CPT-4: 60065 06/23/2018 METHYLPREDNISOLONE INJECTION CPT-4: J2930 06/23/2018 COMPLETE CBC W/AUTO DIFF WBC CPT-4: 27500 06/11/2018 COMPREHEN METABOLIC PANEL CPT-4: 46073 06/11/2018 CEFTRIAXONE SODIUM INJECTION CPT-4: J0696 05/18/2018 THER/PROPH/DIAG INJ SC/IM CPT-4: 23677 05/18/2018 CEFTRIAXONE SODIUM INJECTION CPT-4: J0696 05/17/2018 THER/PROPH/DIAG INJ SC/IM CPT-4: 63039 05/17/2018 THER/PROPH/DIAG INJ SC/IM CPT-4: 89292 05/17/2018 METHYLPREDNISOLONE INJECTION CPT-4: J2930 05/17/2018 FLU VACC PRSV FREE INC ANTIG 65 AND OLDER CPT-4: 85624 05/12/2018 PNEUMOCOCCAL VACC 13 GAIL IM CPT-4: 33741 05/12/2018 ADMIN INFLUENZA VIRUS VAC CPT-4: G0008 05/12/2018 ADMIN PNEUMOCOCCAL VACCINE CPT-4: G0009 05/12/2018 FLU VACC PRSV FREE INC ANTIG 65 AND OLDER CPT-4: 05395 06/17/2017 ADMIN INFLUENZA VIRUS VAC CPT-4: G0008 06/17/2017 URINALYSIS NONAUTO W/O SCOPE CPT-4: 27581 05/21/2017 URINE CULTURE/ COLONY COUNT CPT-4: 20370 05/21/2017 CEFTRIAXONE SODIUM INJECTION CPT-4: J0696 12/16/2016 THER/PROPH/DIAG INJ SC/IM CPT-4: 61672 12/16/2016 THER/PROPH/DIAG INJ SC/IM CPT-4: 08237 12/16/2016 METHYLPREDNISOLONE INJECTION CPT-4: J2930 12/16/2016 CEFTRIAXONE SODIUM INJECTION CPT-4: J0696 12/15/2016 THER/PROPH/DIAG INJ SC/IM CPT-4: 62099 12/15/2016 THER/PROPH/DIAG INJ SC/IM CPT-4: 71661 12/15/2016 METHYLPREDNISOLONE INJECTION CPT-4: J2930 12/15/2016 THER/PROPH/DIAG INJ SC/IM CPT-4: 72392 12/10/2016 TRIAMCINOLONE ACET INJ NOS CPT-4: J3301 12/10/2016 DEXAMETHASONE SODIUM PHOS CPT-4: J1100 12/10/2016 FLU VACC PRSV FREE INC ANTIG 65 AND OLDER CPT-4: 48796 07/21/2016 ADMIN INFLUENZA VIRUS VAC CPT-4: G0008 07/21/2016 ROUTINE VENIPUNCTURE CPT-4: 42806 10/17/2015 COMPLETE CBC W/AUTO DIFF WBC CPT-4: 25696 10/17/2015 COMPREHEN METABOLIC PANEL CPT-4: 80797 10/17/2015 C-REACTIVE PROTEIN CPT-4: 30971 10/17/2015 FLU VACC PRSV FREE INC ANTIG 65 AND OLDER CPT-4: 71910 06/25/2015 ADMIN INFLUENZA VIRUS VAC CPT-4: G0008 06/25/2015 PRESCRIP TRANSMIT VIA ERX SY CPT-4: G8553 06/25/2015 PRESCRIP TRANSMIT VIA ERX SY CPT-4: G8553 04/11/2015 URINALYSIS NONAUTO W/O SCOPE CPT-4: 03494 02/08/2015 PRESCRIP TRANSMIT VIA ERX SY CPT-4: [...] 1: 148/74 Code: 8480-6 BMI: 35.2 Code: 31563-0 Heart Rate 1: 64 bpm Height: 5'10" [...] 1: 126/70 Code: 8480-6 BMI: 34.9 Code: 42007-7 Heart Rate 1: 64 bpm Height: 5'10" Respiratory Rate: 20 bpm SpO2: 96% Tempera ture: 36.8 (C) / 98.3 (F) Weight: 243 lbs 07/20/2017 Blood Pressure 1: 136/78 Code: 8480-6 Heart Rate 1: 74 bpm Height: 5'10" Respiratory Rate: 22 bpm SpO2: 98% Temperature: 36.2 (C) / 97.1 (F) Weight: 07/07/2017 Blood Pressure 1: 136/78 Code: 8480-6 BMI: 35.3 Code: 92815-8 Heart Rate 1: 72 bpm Height: 5'10" Respiratory Rate: 20 bpm SpO2: 95% Tempera ture: 36.7 (C) / 98.1 (F) Weight: 246 lbs 06/17/2017 Blood Pressure 1: 128/68 Code: 8480-6 BMI: 34.7 Code: 43861-6 Heart Rate 1: 80 bpm Height: 5'10" Respiratory Rate: 22 bpm SpO2: 94% Tempera ture: 36.7 (C) / 98.0 (F) Weight: 242 lbs 05/19/2017 Blood Pressure 1: 112/68 Code: 8480-6 BMI: 34.9 Code: 97077-7 Heart Rate 1: 84 bpm Height: 5'10" Respiratory Rate: 18 bpm SpO2: 97% Tempera ture: 36.4 (C) / 97.6 (F) Weight: 243 lbs 02/24/2017 Blood Pressure 1: 122/62 Code: 8480-6 Heart Rate 1: 66 bpm Height: 5'10" Respiratory Rate: 18 bpm SpO2: 95% Temperature: 36 .6 (C) / 97.9 (F) 01/01/2017 Blood Pressure 1: 126/58 Code: 8480-6 BMI: 34.9 Code: 20556-6 Heart Rate 1: 72 bpm Height: 5'10" [...] 1: 124/68 Code: 8480-6 BMI: 35.4 Code: 83468-1 Heart Rate 1: 84 bpm Height: 5'10" Respiratory Rate: 20 bpm SpO2: 94% Tempera ture: 37.0 (C) / 98.6 (F) Weight: 247 lbs 05/29/2016 Blood Pressure 1: 112/72 Code: 8480-6 BMI: 36.0 Code: 06946-7 Heart Rate 1: 108 bpm Height: 5'10" Respiratory Rate: 24 bpm SpO2: 91% Tempera ture: 36.4 (C) / 97.6 (F) Weight: 251 lbs 03/18/2016 Blood Pressure 1: 122/64 Code: 8480-6 BMI: 35.6 Code: 68624-7 Heart Rate 1: 64 bpm Height: 5'10" [...] 1: 134/78 Code: 8480-6 BMI: 35.9 Code: 55287-3 Heart Rate 1: 72 bpm Height: 5'10" Respiratory Rate: 20 bpm Temperature: 36 .9 (C) / 98.4 (F) Weight: 250 lbs 08/30/2015 Blood Pressure 1: 128/62 Code: 8480-6 Heart Rate 1: 78 bpm Respiratory Rate: 20 bpm SpO2: 96% Temperature: 35.9 (C) / 96.6 (F) We ight: 252 lbs 06/25/2015 Blood Pressure 1: 126/70 Code: 8480-6 BMI: 36.9 Code: 06186-8 Heart Rate 1: 64 bpm Height: 5'10" Respiratory Rate: 20 bpm Temperature: 36 .6 (C) / 97.9 (F) Weight: 257 lbs 04/25/2015 Blood Pressure 1: 130/80 Code: 8480-6 BMI: 37.3 Code: 01477-9 Heart Rate 1: 64 bpm Height: 5'10" Respiratory Rate: 22 bpm Temperature: 36 .4 (C) / 97.6 (F) Weight: 260 lbs 04/11/2015 Blood Pressure 1: 148/70 Code: 8480-6 BMI: 37.3 Code: 60487-3 Heart Rate 1: 66 bpm Height: 5'10" Respiratory Rate: 18 bpm Temperature: 36 .5 (C) / 97.7 (F) Weight: 260 lbs 02/27/2015 Blood Pressure 1: 122/58 Code: 8480-6 BMI: 36.0 Code: 59425-1 Heart Rate 1: 80 bpm Height: 5'10" Respiratory Rate: 20 bpm Temperature: 36 .7 (C) / 98.1 (F) Weight: 251 lbs 02/08/2015 Blood Pressure 1: 140/68 Code: 8480-6 BMI: 36.7 Code: 64086-6 Heart Rate 1: 64 bpm Height: 5'10" Respiratory Rate: 20 bpm Temperature: 36 .9 (C) / 98.5 (F) Weight: 256 lbs 01/18/2015 Blood Pressure 1: 136/68 Code: 8480-6 BMI: 33.0 Code: 17761-8 Heart Rate 1: 60 bpm Height: 5'10" [...] Diagnosis: Chronic depressive disorder[ICD10: F32.9] Haylee Piper [facility] CPT-4: 08480 01/04/2020 ([id number]) NURSE/OUTPATIENT VISIT EST Diagnosis: Thrombocytopenia[ICD10: D69.6] Haylee Muniz [employer] CPT-4: 91478 10/10/2019 ([id number]) NO CHARGE Diagnosis: Pancytopenia[ICD10: D61.818] Haylee Mast [employer] CPT-4: 29496 10/10/2019 ([id number]) OFFICE/OUTPATIENT VISIT EST Diagnosis: Chronic obstructive pulmonary disease, unspecified[ICD10: J44.9] Diagnosis: Pancytopenia[ICD10: D61.818] Haylee Mast [employer] CPT-4: 91136 09/29/2019 ([id number]) NO CHARGE Diagnosis: Chronic obstructive pulmonary disease with (acute) exacerbation[ICD10: J44.1] Haylee PIPER DO [facility] CPT- 4: 29565 09/21/2019 ([id number]) OFFICE/OUTPATIENT VISIT EST Diagnosis: Chronic obstructive pulmonary disease with acute lower respiratory infection[ICD10: J44.0] Diagnosis: Chronic obstructive pulmonary disease with (acute) exacerbation[ICD10: J44.1] Haylee PIPER DO [facility] CPT- 4: 63911 09/20/2019 ([id number]) OFFICE/OUTPATIENT VISIT EST Diagnosis: COPD with lower respiratory infection[ICD10: J44.0] Diagnosis: COPD with exacerbation[ICD10: J44.1] Haylee PIPER DO [facility] CPT-4: 10544 09/19/2019 ([id number]) OFFICE/OUTPATIENT VISIT EST Diagnosis: Other fatigue[ICD10: R53.83] Diagnosis: Pancytopenia[ICD10: D61.818] Diagnosis: Other intervertebral disc degeneration, 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] Haylee PIPER DO [facility] CPT-4: 35313 09/05/2019 ([id number]) OFFICE/OUTPATIENT VISIT EST Diagnosis: Vitamin B12 deficiency anemia, unspecified[ICD10: D51.9] Diagnosis: Other fatigue[ICD10: R53.83] Diagnosis: Unsteadiness[ICD10: R26.81] Haylee ESCOBAR DO [facility] CPT-4: 09014 08/29/2019 ([id number]) NURSE/OUTPATIENT VISIT EST Diagnosis: Vitamin B12 deficiency anemia, unspecified[ICD10: D51.9] Haylee PIPER DO [facility] CPT-4: 90677 08/15/2019 ([id number]) NURSE/OUTPATIENT VISIT EST Diagnosis: Vitamin B12 deficiency anemia, unspecified[ICD10: D51.9] Haylee PIPER DO [facility] CPT-4: 26515 08/01/2019 ([id number]) NURSE/OUTPATIENT VISIT EST Diagnosis: Vitamin B12 deficiency anemia, unspecified[ICD10: D51.9] Haylee PIPER DO [facility] CPT-4: 63585 07/18/2019 ([id number]) NURSE/OUTPATIENT VISIT EST Diagnosis: Vitamin B12 deficiency anemia, unspecified[ICD10: D51.9] Haylee PIPER DO [facility] CPT-4: 35773 07/04/2019 ([id number]) NURSE/OUTPATIENT VISIT EST Diagnosis: Vitamin B12 deficiency anemia, unspecified[ICD10: D51.9] Haylee PIPER DO [facility] CPT-4: 69757 06/20/2019 ([id number]) NURSE/OUTPATIENT VISIT EST Diagnosis: Vitamin B12 deficiency anemia, unspecified[ICD10: D51.9] Diagnosis: FLU VACCINE[ICD10: Z23] Diagnosis: PNEUMOCOCCAL VACCINE[ICD10: Z23] Haylee PIPER DO [facility] CPT-4: 45359 06/06/2019 ([id number]) OFFICE/OUTPATIENT VISIT EST Diagnosis: Other fatigue[ICD10: R53.83] Diagnosis: B12 deficiency[ICD10: E53.8] Diagnosis: Iron deficiency anemia[ICD10: D50.9] Haylee PIPER DO [facility] CPT-4: 74743 05/23/2019 ([id number]) NURSE/OUTPATIENT VISIT EST Diagnosis: Vitamin B12 deficiency anemia, unspecified[ICD10: D51.9] Haylee PIPER DO [facility] CPT-4: 58750 05/18/2019 ([id number]) NURSE/OUTPATIENT VISIT EST Diagnosis: Vitamin B12 deficiency anemia, unspecified[ICD10: D51.9] Haylee PIPER DO [facility] CPT-4: 21945 05/04/2019 ([id number]) NURSE/OUTPATIENT VISIT EST Diagnosis: Vitamin B12 deficiency anemia, unspecified[ICD10: D51.9] Haylee PIPER DO [facility] CPT-4: 29695 04/27/2019 ([id number]) NURSE/OUTPATIENT VISIT EST Diagnosis: Vitamin B12 deficiency anemia, unspecified[ICD10: D51.9] Haylee PIPER DO [facility] CPT-4: 69124 04/20/2019 ([id number]) NURSE/OUTPATIENT VISIT EST Diagnosis: Vitamin B12 deficiency anemia, unspecified[ICD10: D51.9] Haylee PIPER DO [facility] CPT-4: 14057 04/06/2019 ([id number]) NURSE/OUTPATIENT VISIT EST Diagnosis: Vitamin B12 deficiency anemia, unspecified[ICD10: D51.9] Haylee PIPER DO [facility] CPT-4: 03964 03/23/2019 ([id number]) OFFICE/OUTPATIENT VISIT EST Diagnosis: Other intervertebral disc degeneration, 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] Diagnosis: Vitamin B12 deficiency anemia, unspecified[ICD10: D51.9] Diagnosis: Vitamin D deficiency, unspecified[ICD10: E55.9] Haylee PIPER DO [facility] CPT-4: 80853 03/17/2019 ([id number]) NURSE/OUTPATIENT VISIT EST Diagnosis: Vitamin B12 deficiency anemia, unspecified[ICD10: D51.9] Haylee PIPER DO [facility] CPT-4: 73722 03/14/2019 ([id number]) NURSE/OUTPATIENT VISIT EST Diagnosis: Vitamin B12 deficiency anemia, unspecified[ICD10: D51.9] Haylee PIPER DO [facility] CPT-4: 92230 03/07/2019 ([id number]) NURSE/OUTPATIENT VISIT EST Diagnosis: Vitamin B12 deficiency anemia, unspecified[ICD10: D51.9] Haylee PIPER DO [facility] CPT-4: 57310 02/24/2019 ([id number]) NURSE/OUTPATIENT VISIT EST Diagnosis: Vitamin B12 deficiency anemia, unspecified[ICD10: D51.9] Haylee PIPER DO [facility] CPT-4: 46151 02/16/2019 ([id number]) OFFICE/OUTPATIENT VISIT EST Diagnosis: Other fatigue[ICD10: R53.83] Diagnosis: Chronic obstructive pulmonary disease, unspecified[ICD10: J44.9] Diagnosis: Other spondylosis with radiculopathy, 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] Diagnosis: Vitamin D deficiency, unspecified[ICD10: E55.9] Diagnosis: Hyperglycemia, unspecified[ICD10: R73.9] Haylee PIPER DO [facility] CPT-4: 55896 02/14/2019 ([id number]) OFFICE/OUTPATIENT VISIT EST Diagnosis: Chronic obstructive pulmonary disease, unspecified[ICD10: J44.9] Diagnosis: Hypoxemia[ICD10: R09.02] Haylee [facility] CPT-4: 82392 11/11/2018 ([id number]) OFFICE/OUTPATIENT VISIT EST Diagnosis: Acute bronchitis, unspecified[ICD10: J20.9] Diagnosis: Other specified respiratory disorders[ICD10: J98.8] Diagnosis: Chronic obstructive pulmonary disease with (acute) exacerbation[ICD10: J44.1] Chula PIPER DO [facility] CPT- 4: 59692 10/29/2018 OFFICE/OUTPATIENT VISIT EST Diagnosis: Acute bronchitis due to other specified organisms[ICD10: J20.8] Diagnosis: Chronic obstructive pulmonary disease, unspecified[ICD10: J44.9] Chula PIPER DO [facility] CPT-4: 73833 10/26/2018 OFFICE/OUTPATIENT VISIT EST Diagnosis: Cervicalgia[ICD10: M54.2] Diagnosis: Other muscle spasm[ICD10: M62.838] Diagnosis: Chronic obstructive pulmonary disease, unspecified[ICD10: J44.9] Haylee PIPER DO [facility] CPT-4: 74179 08/11/2018 ([id number]) NURSE/OUTPATIENT VISIT EST Diagnosis: Acute bronchitis, unspecified[ICD10: J20.9] Haylee PIPER DO [facility] CPT-4: 52038 06/23/2018 ([id number]) OFFICE/OUTPATIENT VISIT EST Diagnosis: Acute bronchitis, unspecified[ICD10: J20.9] Columba PIPER DO [facility] CPT-4: 03901 06/17/2018 ([id number]) OFFICE/OUTPATIENT VISIT EST Diagnosis: Acute gastritis without bleeding[ICD10: K29.00] Columba PIPER DO [facility] CPT-4: 31285 06/11/2018 ([id number]) OFFICE/OUTPATIENT VISIT EST Diagnosis: Acute bronchitis, unspecified[ICD10: J20.9] Columba PIPER DO [facility] CPT-4: 73339 05/18/2018 ([id number]) OFFICE/OUTPATIENT VISIT EST Diagnosis: Dizziness and giddiness[ICD10: R42] Diagnosis: Acute bronchitis, unspecified[ICD10: J20.9] Diagnosis: Chronic obstructive pulmonary disease with acute lower respiratory infection[ICD10: J44.0] Columba PIPER DO [facility] CPT-4: 43567 05/17/2018 ([id number]) OFFICE/OUTPATIENT VISIT EST Diagnosis: Primary insomnia[ICD10: F51.01] Diagnosis: Other fatigue[ICD10: R53.83] 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] Diagnosis: Other spondylosis with radiculopathy, 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] Diagnosis: PNEUMOCOCCAL VACCINE[ICD10: Z23] Diagnosis: FLU VACCINE[ICD10: Z23] Haylee P[facility]ER [facility] CPT-4: 32585 05/12/2018 OFFICE/OUTPATIENT VISIT EST Diagnosis: Candidal stomatitis[ICD10: B37.0] Columba PIPER DO [facility] CPT-4: 62181 07/20/2017 ([id number]) OFFICE/OUTPATIENT VISIT EST Diagnosis: Candidal stomatitis[ICD10: B37.0] Haylee PIPER DO [facility] CPT-4: 15441 07/07/2017 ([id number]) OFFICE/OUTPATIENT VISIT EST Diagnosis: Localized edema[ICD10: R60.0] Diagnosis: Anemia, unspecified[ICD10: D64.9] Diagnosis: Disorder of kidney and ureter, unspecified[ICD10: N28.9] Diagnosis: FLU VACCINE[ICD10: Z23] Haylee PARKER [facility] CPT-4: 14245 06/17/2017 ([id number]) OFFICE/OUTPATIENT VISIT EST Diagnosis: Dysuria[ICD10: R30.0] Haylee PIPER DO [facility] CPT-4: 39472 05/21/2017 OFFICE/OUTPATIENT VISIT EST Diagnosis: Encounter for other specified special examinations[ICD10: Z01.89] Diagnosis: Disorder of kidney and ureter, unspecified[ICD10: N28.9] Diagnosis: Anemia, unspecified[ICD10: D64.9] Mayra Arguello TWIN PIPER DO [facility] CPT-4: 60421 05/19/2017 ([id number]) OFFICE/OUTPATIENT VISIT EST Diagnosis: URI, ACUTE[ICD10: J06.9] Haylee [facility] CPT-4: 28285 02/24/2017 ([id number]) OFFICE/OUTPATIENT VISIT EST Diagnosis: Hypotension, unspecified[ICD10: I95.9] Diagnosis: Bradycardia, unspecified[ICD10: R00.1] [facility]: 78992 01/01/2017 ([id number]) NO CHARGE Diagnosis: Chronic obstructive pulmonary disease with (acute) exacerbation[ICD10: J44.1] Diagnosis: Pneumonia, unspecified organism[ICD10: J18.9] [facility]: 28966 12/22/2016 OFFICE/OUTPATIENT VISIT EST Diagnosis: Pneumonia, unspecified organism[ICD10: J18.9] Diagnosis: Chronic obstructive pulmonary disease with (acute) exacerbation[ICD10: J44.1] Haylee PIPER [facility] CPT- 4: 86814 12/17/2016 OFFICE/OUTPATIENT VISIT EST Diagnosis: Pneumonia, unspecified organism[ICD10: J18.9] Diagnosis: Mild intermittent asthma with (acute) exacerbation[ICD10: J45.21] Diagnosis: Chronic obstructive pulmonary disease with (acute) exacerbation[ICD10: J44.1] Haylee PIPER DO [facility] CPT- 4: 31052 12/16/2016 ([id number]) OFFICE/OUTPATIENT VISIT EST Diagnosis: Mild intermittent asthma with (acute) exacerbation[ICD10: J45.21] Diagnosis: Pneumonia, unspecified organism[ICD10: J18.9] Haylee PIPER [facility] CPT-4: 75209 12/15/2016 ([id number]) OFFICE/OUTPATIENT VISIT EST Diagnosis: Acute bronchitis, unspecified[ICD10: J20.9] Diagnosis: Unspecified asthma with (acute) exacerbation[ICD10: J45.901] Susie STEPHENSONLINE Pro PIPER [facility] CPT-4: 24991 12/11/2016 ([id number]) OFFICE/OUTPATIENT VISIT EST Diagnosis: Acute bronchitis, unspecified[ICD10: J20.9] Diagnosis: Unspecified asthma with (acute) exacerbation[ICD10: J45.901] Susie PIPER [facility] CPT-4: 30779 12/10/2016 ([id number]) OFFICE/OUTPATIENT VISIT EST Diagnosis: Chronic obstructive pulmonary disease with (acute) exacerbation[ICD10: J44.1] Diagnosis: Other spondylosis with radiculopathy, 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] Diagnosis: Other intervertebral disc degeneration, 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] Diagnosis: FLU VACCINE[ICD10: Z23] Haylee PARKER [facility] CPT-4: 53979 07/21/2016 ([id number]) OFFICE/OUTPATIENT VISIT EST Diagnosis: Unspecified open wound of right forearm, initial encounter[ICD10: S51.801A] Haylee PIPER [facility] CPT-4: 49572 05/30/2016 ([id number]) OFFICE/OUTPATIENT VISIT EST Diagnosis: Unspecified open wound of right forearm, initial encounter[ICD10: S51.801A] Susie STE[employer]EN[employer]LINE [employer] PIPER [facility] CPT-4: 78275 ([id number]) OFFICE/OUTPATIENT VISIT EST 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] Diagnosis: Mixed hyperlipidemia[ICD10: E78.2] Diagnosis: Other intervertebral disc degeneration, 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] [facility]: 60020 03/18/2016 OFFICE/OUTPATIENT VISIT EST Diagnosis: Hypotension, unspecified[ICD10: I95.9] Diagnosis: Dizziness and giddiness[ICD10: R42] [facility]: 17744 10/18/2015 ([id number]) OFFICE/OUTPATIENT VISIT EST Diagnosis: Hypotension, unspecified[ICD10: I95.9] [facility]: 39863 10/17/2015 ([id number]) OFFICE/OUTPATIENT VISIT EST Diagnosis: Solitary pulmonary nodule[ICD10: R91.1] Diagnosis: Other spondylosis with radiculopathy, 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] Diagnosis: Other amnesia[ICD10: R41.3] Haylee Piper HAYLEE [employer] [facility] CPT-4: 31863 10/10/2015 ([id number]) OFFICE/OUTPATIENT VISIT EST Diagnosis: Pneumonia, unspecified organism[ICD10: J18.9] Diagnosis: Solitary pulmonary nodule[ICD10: R91.1] [facility] 919[facility] 08/30/2015 ([id number]) OFFICE/OUTPATIENT VISIT EST Diagnosis: Gastro-esophageal reflux disease with esophagitis[ICD10: K21.0] 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 CPT-4: 45800 04/11/2015 ([id number]) OFFICE/OUTPATIENT VISIT EST Diagnosis: MALAISE AND FATIGUE[ICD9: 780.79] Diagnosis: Lumbar degenerative disc disease[ICD9: 722.52] Diagnosis: Leg weakness[ICD9: 729.89] Haylee [facility] CPT-4: 88230 02/27/2015 ([id number]) OFFICE/OUTPATIENT VISIT EST Diagnosis: Tremor[ICD9: 781.0] Diagnosis: Memory disturbance[ICD9: 780.93] Haylee PIPER [facility] CPT-4: 58595 02/08/2015 ([id number]) OFFICE/OUTPATIENT VISIT NEW Diagnosis: INSOMNIA NOS[ICD9: 780.52] Diagnosis: Lumbar degenerative disc disease[ICD9: 722.52] Diagnosis: Leg weakness[ICD9: 729.89] Diagnosis: DEPRESSIVE DISORDER NEC[ICD9: 311] Diagnosis: Coronary artery disease[ICD9: 414.00] Diagnosis: Peripheral vascular disease[ICD9: 443.9] Haylee PIPER [facility] CPT-4: 35735 01/18/2015 Plan of Care Planned Activity Notes Codes Status Date Visit Diagnosis Plan: Chronic depressive disorder Disc ussion: Change duloxetine to Wellbutrin XL in AM and Escitalopram 10mg q PM Follow Up: 4 weeks ICD-9 : 301.12 ICD-10 : F32.9 01/04/2020 Patient Education: escitalopram oxalate- [employer] Co upon [id number] [email or web address] Completed 01/04/2020 Patient Education: Wellbutrin XL- [employer] Coupon 11 [id number] [email or web address] Completed 01/04/2020 Visit Diagnosis Plan: Pancytopenia Discussion: Discuss ed options including hospice Patient has decided that he wants to proceed with oncology/hematology eval. so will try to arrange for that this week Once again discussed bleeding risks and reasons to seek immediate care ICD-9 : 284.19 ICD-10 : D61.818 10/10/2019 Appointment: Haylee Piperl: [address] [place], [place] [phone] [place] LAB 10/10/2019 Appointment: Haylee Piper WPtel: [address] [place], [place] [address] WORK IN 10/10/2019 Patient Education: Dexilant- OptimizeRX Coupon [id number] [email or web address]/resources/getResource/[email or web address]-[email or web address] Completed 10/10/2019 Care Plan: COMPREHEN METABOLIC PANEL JAKUB [place] : 34956-9 Pending 10/06/2019 Care Plan: COMPLETE CBC W/AUTO DIFF WBC LOINC : 87722-4 Pending 10/06/2019 Visit Diagnosis Plan: Chronic obstructive pulmonary di sease, unspecified Discussion: Restart Symbicort Start pulmonary rehab Use oxygen q HS and prn Use SVNs with abuterol at least QID ICD-9 : 496 ICD-10 : J44.9 09/29/2019 Visit Diagnosis Plan: Pancytopenia Discussion: CBC in 1 week Once again discussed hematology consult ICD-9 : 284.19 ICD-10 : D61.818 09/29/2019 Appointment: Haylee Piper WPtel: [address] [place] [address] Hospital Follow Up 09/29/2019 Visit Diagnosis Plan: Chronic obstructiv e pulmonary disease with (acute) exacerbation Discussion: Direct admit to hospital ICD-9 : 491.21 ICD-10 : J44.1 09/21/2019 Appointment: Haylee Piper WPtel: [address] [place], [place] [phone] [place] WORK IN 09/21/2019 Visit Diagnosis Plan: [...] : J44.1 09/20/2019 Appointment: Haylee Piper WPtel: [address] [place] [phone] [place] WORK IN 09/20/2019 Visit Diagnosis Plan: COPD with exacerbation Discussio n: Solumedrol 125mg IM now SVNs with duoneb q4hrs Recheck tomorrow ICD-9 : 491.21 ICD-10 : J44.1 09/19/2019 Visit Diagnosis Plan: COPD with lower respiratory infe ction Discussion: Rocephin 1gm IM now Recheck tomorrow ICD-9 : 496 ICD-10 : J44.0 09/19/2019 Appointment: Haylee Piper WPtel: [address] [place] [address] US FOLLOW UP 09/19/2019 Appointment: Haylee Piper WPtel: [address] [place], [place] [phone] [place] 09/02/19---moved him to a cancellation spot [...] : M51.36 09/05/2019 Appointment: Haylee Piper WPtel: [address] [place] [phone] [place] FOLLOW UP 09/05/2019 Patient Education: Lyrica- OptimizeRX Beccapon [id number] [email or web address]/samplemd/resources/getResource/61/[email or web address].pdf Completed 09/05/2019 Visit Diagnosis Plan: Vitamin B12 [...] ICD-10 : R26.81 08/29/2019 Appointment: Haylee Pipertel: [address] [place], [place] [phone] US MEDICATION REVIEW 08/29/2019 Appointment: Haylee Piper WPtel: [address] [place] [phone] US INJECTION 08/15/2019 Appointment: Haylee Piper WPtel: [address] [place] [phone] US INJECTION 08/01/2019 Appointment: Haylee Piper WPtel: [address] [place] [phone] US INJECTION 07/18/2019 Appointment: Haylee Piper WPtel: [address] [place] [phone] US INJECTION 07/04/2019 Appointment: Haylee Piper WPtel: [address] [place] [phone] US INJECTION 06/20/2019 Appointment: Haylee Piper WPtel: [address] [place] [phone] US INJECTION 06/06/2019 Appointment: Haylee Piper WPtel: [address] [place] [phone] US 06/02/19 1340---SENT REFILL OF B12 TO [...] : E53.8 05/23/2019 Appointment: Haylee Piper WPtel: [address] [place] [address] US FOLLOW UP 05/23/2019 Appointment: Haylee Piper WPtel: [address] [place] [phone] US INJECTION 05/18/2019 Appointment: Haylee Piper WPtel: [address] [place] [phone] US INJECTION 05/04/2019 Appointment: Haylee Piper WPtel: [address] [place] [phone] US INJECTION 04/27/2019 Appointment: Haylee Piper WPtel: [address] [place] [phone] US INJECTION 04/20/2019 Appointment: Haylee Piper WPtel: [address] [place] [phone] US INJECTION 04/06/2019 Appointment: Haylee Piper WPtel: [address] [place] [phone] US INJECTION 03/23/2019 Visit Diagnosis Plan: Other [...] : D51.9 03/17/2019 Appointment: Haylee Piper WPtel: [address] [place] [address] US lm FOLLOW UP 03/17/2019 Care Plan: Referral Order SNOMED-CT : [id number] Pending 03/17/2019 Appointment: Haylee Piper WPtel: [address] [place] [phone] US INJECTION 03/14/2019 Appointment: Haylee Piper WPtel: [address] [place] [phone] US INJECTION 03/07/2019 Appointment: Haylee Piper WPtel: [address] [place], [place] [phone] US INJECTION 02/24/2019 Appointment: Haylee Piper WPtel: [address] [place] [phone] US INJECTION 02/16/2019 Visit Diagnosis Plan: Chronic [...] : R53.83 02/14/2019 Appointment: Haylee Piper WPtel: [address] [place] [phone] [place] FOLLOW UP 02/14/2019 Visit Diagnosis Plan: [...] : J44.9 11/11/2018 Appointment: Haylee Piper WPtel: [address] [place] [phone] US FOLLOW UP 11/11/2018 Visit Diagnosis Plan: [...] ICD-10 : J20.9 10/29/2018 Appointment: Chula Balbuena [address] [place], [place] [id number] ACUTE ILLNESS 10/29/2018 Patient Education: prednisone- OptimizeRX Coupon [id number] https://www.EmergenSee.com/samplemd/resources/getResource/61/[email or web address] Completed 10/29/2018 Visit Diagnosis Plan: Acute bronchitis [...] ILLNESS 10/26/2018 Patient Education: doxycycline hyclate- OptimizeRX [facility] [id number] [email or web address].[employer]/samplemd/resources/getResource/61/370767p3-g94m-2732-3o Completed 10/26/2018 Visit Diagnosis Plan: Chronic obstructive [...] : M54.2 08/11/2018 Appointment: Haylee Piper WPtel: [address] [place], [place] [address] FOLLOW UP 08/11/2018 Appointment: Haylee Piper WPtel: [address] [place], [place] [phone] [place] INJECTION 06/23/2018 Patient Education: Patient Medication [...] ICD-10 : J20.9 06/17/2018 Appointment: Columba Curtis [address] [place] [address] ACUTE ILLNESS 06/17/2018 Patient Education: Patient Medication [...] ICD-10 : K29.00 06/11/2018 Appointment: Columba Curtis [address] [place] [address] ACUTE ILLNESS 06/11/2018 Patient Education: Patient Medication [...] ICD-10 : J20.9 05/18/2018 Appointment: Columba Curtis [address] [place] [address] FOLLOW UP 05/18/2018 Patient Education: Patient Medication [...] ICD-10 : J20.9 05/17/2018 Appointment: Columba Curtis [address] [place] [address] ACUTE ILLNESS 05/17/2018 Patient Education: Patient Medication Summary Completed 05/17/2018 Visit Diagnosis Plan: Other fatigue Discussion: Check CBC, TSH, Free T4 ICD-9 : 780.79 ICD-10 : R53.83 05/12/2018 Visit Diagnosis Plan: 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 Discussion: Following [...] : F51.01 05/12/2018 Appointment: Haylee Piper WPtel: [address] [place] [address] FOLLOW UP 05/12/2018 Patient Education: Patient Medication Summary Completed 05/12/2018 Appointment: Haylee Piper WPtel: [address] [place] [address] US CANCELED 09/21/2017 Visit Diagnosis Plan: Candidal [...] ICD-10 : B37.0 07/20/2017 Appointment: Columba Curtis [address] [place] [address] ACUTE ILLNESS 07/20/2017 Patient Education: Patient Medication [...] : B37.0 07/07/2017 Appointment: Haylee Piper WPtel: [address] [place] [address] FOLLOW UP 07/07/2017 Patient Education: Patient Medication Summary Completed 07/07/2017 Visit Diagnosis Plan: Localized edema Discussion: Star t lasix 20mg with potassium every other day and check Chem 7 in 2 weeks Flu shot given ICD-9 : 782.3 ICD-10 : R60.0 06/17/2017 Appointment: Haylee Piper WPtel: [address] [place] [address] FOLLOW UP 06/17/2017 Patient Education: Patient Medication Summary Completed 06/17/2017 Appointment: Haylee Piper WPtel: [address] [place] [address] 05/21/2017 Patient Education: Patient Medication Summary Completed 05/21/2017 Appointment: Haylee Piper WPtel: [address] [place] [address] RESCHEDULED 05/20/2017 Visit Plan: Plan labs within the week CB C, CMP to check anemia, kidney status RTC in [address] Piper and for any worsening before that time. 05/19/2017 Appointment: Mayra Arguello WPtel: [address] [place] [address] Hospital Follow Up 05/19/2017 Patient Education: Patient [...] care. Rest, Fluids... 02/24/2017 Appointment: Haylee Pipertel: [address] [place] [phone] WORK IN 02/24/2017 Patient Education: Patient Medication [...] : R00.1 01/01/2017 Appointment: Haylee Piper WPtel: [address] [place] [phone] Hospital Follow Up 01/01/2017 Patient Education: Patient Medication Summary Completed 01/01/2017 Visit Diagnosis Plan: Chronic obstructiv e pulmonary disease with (acute) exacerbation Discussion: Exam, vitals and patient fee ling better is reassuring Finish rxs previously given Continue nebs PRN Follow up PRN ICD-9 : 491.21 ICD-10 : J44.1 12/22/2016 Appointment: Susie Paniagua [address] [facility] FOLLOW UP 12/22/2016 Patient Education: Patient Medication [...] : J44.1 12/17/2016 Appointment: Haylee Piper WPtel: [facility] [place] 2[facility] [facility] 12/17/2016 Patient Education: Patient [...] : J18.9 12/16/2016 Appointment: Haylee Piper WPtel: [address] [place], [place] [address] [place] WORK IN 12/16/2016 Patient Education: Patient [...] : J45.21 12/15/2016 Appointment: Haylee Piper WPtel: [address] [place], [place] [address] [place] WORK IN 12/15/2016 Patient Education: Patient [...] ICD-10 : J20.9 12/11/2016 Appointment: Susie Paniagua [address] [place], [place] [address] FOLLOW UP 12/11/2016 Patient Education: Patient Medication Summary Completed 12/11/2016 Care Plan: CHEST X-RAY 2VW FRONTAL&LATL LOINC : 77151-1 Pending 12/11/2016 Care Plan: CBC Pending 12/11/2016 Visit Diagnosis Plan: Acute bronchitis, unspecified Di scussion: Injection in clinic today Continue proair Rxs as above Vicks, humidifier, etc Recheck tomorrow in clinic Will get CXR and labs if not starting to improve ICD-9 : 466.0 ICD-10 : J20.9 12/10/2016 Appointment: Susie Paniagua [address] [place] [address] ACUTE ILLNESS 12/10/2016 Patient Education: Patient Medication Summary Completed 12/10/2016 Visit Plan: Flu shot given Breo 100mcg 1 p BID for 2weeks with proair prn Notify if worsening or persists Fwup first part of October and sooner with needed 07/21/2016 Appointment: Haylee Piper WPtel: [address] [place] [address] 07/17 confirmed~sl FOLLOW UP 07/21/2016 Patient Education: Patient Medication Summary Completed 07/21/2016 Visit Plan: GAUTAM Paniagua---wear esteban ssing through weekend and then take off to leave open to air 05/30/2016 Appointment: Haylee Piper WPtel: [address] [place] [address] Consult 05/30/2016 Patient Education: Patient Medication Summary [...] after tdap updated 05/29/2016 Appointment: Susie Paniagua [address] [place] [address] ACUTE ILLNESS 05/29/2016 Patient Education: Patient Medication Summary Completed 05/29/2016 Visit Plan: Continue current meds Patien t sees Dr. Eugene next week to see if would be surgical candidate 03/18/2016 Appointment: Haylee Piper WPtel: [facility] [place]note 2[facility] 03/17 confirmed ~sl FOLLOW UP 03/18/2016 Patient Education: Patient Medication Summary Completed 03/18/2016 Visit Plan: Continue to hold atenolol an d monitor BP Take 1/2 of atenolol if BP greater then 150/90 8-10 oz of gatorade daily for next week and hydrate unless develops edema BP check 1week 10/18/2015 Appointment: Haylee Piper WPtel: [address] [place] [phone] [place] FOLLOW UP 10/18/2015 Patient Education: Patient Medication Summary Completed 10/18/2015 Visit Plan: Hold atenolol Hydrate, rest Refuses hospital but agrees will go to [facility] if worsens Recheck tomorrow Check CBC, CMP, CRP now 10/17/2015 Appointment: Haylee Piper WPtel: [address] [place] [phone] WORK IN 10/17/2015 Patient Education: Patient Medication Summary Completed 10/17/2015 Visit Plan: Check CT scan of lungs November 18 Change proair to ventolin Fwup with Dr. Kilgore at end of month 10/10/2015 Appointment: Haylee Piper WPtel: [address] [place] [phone] [place] 10/09 confirmed~lb FOLLOW UP 10/10/2015 Patient Education: Patient Medication Summary Completed 10/10/2015 Visit Plan: Obtain CT scan of chest resu lts Discussed that will likely need repeat scan pending reviewing above results but we will notify him once CT scan results reviewed 08/30/2015 Appointment: Haylee Piper WPtel: [address] [place], [place] [phone] [place] 08/29 appt confirmed cn Hospital Follow Up 08/30 Patient Education: Patient Medication Summary Completed 08/30/2015 Visit Plan: Continue dexilant and add Pe pcid 40mg q HS Discussed may need EGD Update thyroid US Flu shot given 06/25/2015 Appointment: Haylee Piper WPtel: [address] [place] [phone] 06/22 confirmed ~sl FOLLOW UP 06/25/2015 Patient Education: Patient Medication Summary Completed 06/25/2015 Visit Plan: Continue Cymbalta at 120 mg PO daily Follow-up in 6 weeks Encouraged finding interest in a hobbie such as reading 04/25/2015 Appointment: Kat Carmona WPtel: [address] [place] [address] FOLLOW UP 04/25/2015 Patient Education: Patient Medication Summary Completed 04/25/2015 Visit Plan: Increase Cymbalta to 120 mg PO daily Follow-up [place] [address] Piper 04/11/2015 Appointment: Kat Carmona WPtel: [address] [place] [address] 04/09/2015 spoke with patient to make appointment FOLLOW UP 04/11/2015 Patient Education: Patient Medication Summary Completed 04/11/2015 Visit Plan: Continue Cymbalta, Neurontin Look out for tremor Discussed B12 supplement Given sample of Metanx 02/27/2015 Appointment: Haylee Piper WPtel: [address] [place] [address] 02/26 appt confirmed cn FOLLOW UP 02/28/20 [...] tremors persist 02/08/2015 Appointment: Haylee Piper WPtel: [address] [place] [address] FOLLOW UP 02/08/2015 Patient Education: Patient Medication Summary Completed 02/08/2015 Appointment: Haylee Piper WPtel: [address] [place] [address] [place] NEW PATIENT 01/18/2015 Patient Education: Patient Medication Summary Completed 01/18/2015 Patient Education: [facility] - Saving AutoInj - Cymbalta - 18+ - Dynamic Portal ID Completed 01/18/2015 Referral: Atiya Vernon Jesus WPtel: [facility] [address], [id number] [place] Referral Appointment Requested Instructions Comment . [...] Refuses hospital but agrees will go to [facility] if worsens Recheck tomorrow Check CBC, [...]
--- OUTSIDE RECORDS SUMMARY | 2020-02-05 15:03 | XMS REPORT | CCD ---
Author Author Andrea Piper D.O. 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 PP Unavailable CCM Unavailable Summary Purpose Interface Exchange Insurance Providers Payer name Policy type / Coverage type Covered green party ID Effective Begin Date Effective End Date WPS MEDICARE PART B [place] Medicare Part B [id number] Unknown Bankers [place] Medicare Part B [id number] Unknown Family history Mother Diagnosis Age At Onset Breast cancer Unknown Brother Diagnosis Age At Onset Hypertension Unknown Grandfather Diagnosis Age At Onset Myocardial infarction Unknown Social History Social History Element Codes Description Effective Dates Tobacco history SNOMED CT: 572686533 Never smoker 05/18/2015 Marital status Unknown 01/18/2015 Number of children Unknown 3 01/18/2015 Employment Unknown Retired 01/18/[address]: 854819622 Never drinks alcohol 2014 Has the patient [...] R42 10/17/2015 Active 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: [...] Fill Instructions escitalopram 10 mg tablet RxNorm: 478138 1 Tablet(s) Or al QPM for mood--replaces duloxetine 01/04/2020 02/03/2020 Active Zofran 8 mg tablet RxNorm: 435820 1 Tablet(s) Oral as needed fo r nausea 01/04/2020 No Stop Date Active Wellbutrin XL 150 mg 24 hr tablet, extended release RxNorm: 852379 1 Tablet(s) Oral QAM replaces duloxetine 01/04/2020 02/03/2020 Active baclofen 20 mg tablet RxNorm: 996925 TAKE ONE TABLET BY MOUTH EVERY NIGHT AT BEDTIME FOR MUSCLE SPASMS AND TAKE ONE TABLET EVERY MORNING NEEDED 01/02/2020 No Stop Date Active Dexilant 60 mg capsule, delayed release RxNorm: 107756 TAKE ONE CAPSULE BY MOUTH DAILY 12/14/2019 No Stop Date Active Cymbalta 60 mg capsule,delayed release RxNorm: 794890 2 Capsule (s) Oral QD 10/24/2019 01/03/2020 Inactive Dexilant 60 mg capsule, delayed release RxNorm: 916446 TAKE ONE CAPSULE BY MOUTH DAILY 09/19/2019 2019 Inactive Lyrica 50 mg capsule RxNorm: 649440 2 Capsule(s) Oral Q PM for 3 days then 1 po q PM for 3 days then stop 09/05/2019 10/09/2019 Inactive Lyrica 150 mg capsule RxNorm: 788705 1 Capsule(s) Oral every ni ght at bedtime 09/05/2019 09/05/2019 Inactive metoprolol succinate ER 100 mg tablet,extended release 24 hr RxNorm: 645894 1 Tablet(s) Oral QD 08/29/2019 11/27/2019 Inactive hydrocodone 7.5 mg-acetaminophen 325 mg tablet RxNorm: 01422 5 1 Tablet(s) Oral Q4H as needed for pain 08/15/2019 08/21/2019 Inactive Lyrica 150 mg capsule RxNorm: 087350 TAKE ONE CAPSULE BY MOUTH TWICE A DAY 08/11/2019 09/04/2019 Inactive baclofen 20 mg tablet RxNorm: 708120 TAKE ONE TABLET BY MOUTH EVERY NIGHT AT BEDTIME FOR MUSCLE SPASMS AND TAKE ONE TABLET EVERY MORNING NEEDED 08/10/2019 01/01/2020 Inactive Dexilant 60 mg capsule, delayed release RxNorm: 119730 TAKE ONE CAPSULE BY MOUTH DAILY 07/19/2019 09/18/2019 Inactive Cymbalta 60 mg capsule,delayed release RxNorm: 719756 T LASHAUN TWO CAPSULES BY MOUTH DAILY 07/06/2019 10/23/2019 Inactive cyanocobalamin (vit B-12) 1,000 mcg/mL injection solution Rx Norm: 549577 1 Milliliter(s) Intramuscular every two weeks 06/02/2019 06/02/2019 Inac tive cyanocobalamin (vit B-12) 1,000 mcg/mL injection solution Rx Norm: 027656 1 Milliliter(s) Intramuscular every two weeks 05/23/2019 06/01/2019 Inac tive Dexilant 60 mg capsule, delayed release RxNorm: 966860 TAKE ONE CAPSULE BY MOUTH DAILY 05/19/2019 07/17/2019 Inactive Lyrica 150 mg capsule RxNorm: 426226 1 Capsule(s) PO BID 05/11/2019 1 10/09/2018 Inactive Cymbalta 60 mg capsule,delayed release RxNorm: 645605 2 Capsule (s) PO QD 04/04/2019 07/02/2019 Inactive cyanocobalamin (vit B-12) 1,000 mcg/mL injection solution Rx Norm: 658461 1 Milliliter(s) IM QW 03/17/2019 05/22/2019 Inactive Lyrica 150 mg capsule RxNorm: 692674 TAKE ONE CAPSULE BY MOUTH TWICE A DAY 03/08/2019 03/09/2019 Inactive cyanocobalamin (vit B-12) 1,000 mcg/mL injection solution Rx Norm: 549912 1 Milliliter(s) IM QW 02/16/2019 03/16/2019 Inactive Lyrica 150 mg capsule RxNorm: 894643 TAKE ONE CAPSULE BY MOUTH TWICE A DAY 02/08/2019 03/08/2019 Inactive Dexilant 60 mg capsule, delayed release RxNorm: 096874 1 Capsul e(s) PO QD 02/08/2019 05/08/2019 Inactive Dexilant 60 mg capsule, delayed release RxNorm: 600472 TAKE ONE CAPSULE BY MOUTH DAILY 01/03/2019 02/08/2019 Inactive Lyrica 150 mg capsule RxNorm: 363106 1 Capsule(s) PO BID 01/03/2019 0 02/08/2019 Inactive Cymbalta 60 mg capsule,delayed release RxNorm: 809021 T LASHAUN TWO CAPSULES BY MOUTH DAILY 12/27/2018 04/04/2019 Inactive Dexilant 60 mg capsule, delayed release RxNorm: 474256 TAKE ONE CAPSULE BY MOUTH DAILY 12/07/2018 01/02/2019 Inactive prednisone 20 mg tablet RxNorm: 452620 Take 3 tabs by m outh for 3 days, then 2 tabs by mouth for 3 days, then 1 tab by mouth for 3 days Take 2 tabs for 10/29/2018 11/07/2018 Inactive doxycycline hyclate 100 mg tablet RxNorm: 7686301 1 Tablet(s) PO BI D 10/26/2018 11/04/2018 Inactive doxycycline hyclate 100 mg tablet RxNorm: 1050101 1 Tablet(s) PO BI D 10/26/2018 10/25/2018 Inactive Dexilant 60 mg capsule, delayed release RxNorm: 634955 TAKE ONE CAPSULE BY MOUTH DAILY 10/04/2018 12/06/2018 Inactive Lyrica 150 mg capsule RxNorm: 822039 TAKE ONE CAPSULE BY MOUTH TWICE A DAY 10/04/2018 11/02/2018 Inactive baclofen 20 mg tablet RxNorm: 352444 1 Tablet(s) PO QHS for muscle spasm and q AM prn 08/11/2018 08/09/2019 Inactive Lyrica 150 mg capsule RxNorm: 053200 1 Capsule(s) PO BID 08/06/2018 0 10/04/2018 Inactive Dexilant 60 mg capsule, delayed release RxNorm: 656820 TAKE ONE CAPSULE BY MOUTH DAILY 07/07/2018 10/03/2018 Inactive Cymbalta 60 mg capsule,delayed release RxNorm: 820162 T LASHAUN TWO CAPSULES BY MOUTH DAILY 06/28/2018 12/24/2018 Inactive prednisone 20 mg tablet RxNorm: 306500 1 Tablet(s) PO BID 06/17/2018 06/21/2018 Inactive Zithromax Z-Osman 250 mg tablet RxNorm: 422401 Tablet(s) PO take as directed 06/17/2018 08/10/2018 Inactive Flagyl 500 mg tablet RxNorm: 795022 1 Tablet(s) PO BID 06/11/2018 Inactive Cipro 250 mg tablet RxNorm: 841316 1 Tablet(s) PO BID 06/11/201805/31 Inactive atenolol 50 mg tablet RxNorm: 040427 1 Tablet(s) PO BID 05/31/2018 Inactive albuterol sulfate 2.5 mg/3 mL (0.083 %) solution for n ebulization RxNorm: 129023 3 Milliliter(s) INH Q4H as needed 05/17/2018 No Stop Date Active Zithromax Z-Osman 250 mg tablet RxNorm: 416837 Tablet(s) PO take as directed 05/17/2018 06/10/2018 Inactive Lyrica 150 mg capsule RxNorm: 075236 1 Capsule(s) PO BID 05/12/2018 1 10/07/2017 Inactive hydrocodone 7.5 mg-acetaminophen 325 mg tablet RxNorm: 22494 5 1 Tablet(s) PO Q4H as needed for pain 05/12/2018 05/18/2018 Inactive Cymbalta 60 mg capsule,delayed release RxNorm: 919556 T LASHAUN TWO CAPSULES BY MOUTH DAILY 04/01/2018 04/04/2018 Inactive Lyrica 100 mg capsule RxNorm: 887193 Capsule(s) TAKE ON E CAPSULE BY MOUTH TWICE A DAY 03/01/2018 05/11/2018 Inactive Dexilant 60 mg capsule, delayed release RxNorm: 093222 1 Capsul e(s) PO QD 01/06/2018 07/04/2018 Inactive atenolol 50 mg tablet RxNorm: 517704 1 Tablet(s) PO BID 12/30/2017 Inactive Lyrica 100 mg capsule RxNorm: 483583 Capsule(s) TAKE ON E CAPSULE BY MOUTH TWICE A DAY 12/30/2017 02/26/2018 Inactive Cymbalta 60 mg capsule,delayed release RxNorm: 883521 2 Capsule (s) PO QD 12/30/2017 03/29/2018 Inactive ProAir HFA 90 mcg/actuation aerosol inhaler RxNorm: 245677 INHALE 2 PUFFS FOUR TIMES A DAY 11/12/2017 01/25/2018 Inactive Cymbalta 60 mg capsule,delayed release RxNorm: 507535 2 Capsule (s) PO QD 10/06/2017 12/30/2017 Inactive Lyrica 100 mg capsule RxNorm: 129109 TAKE ONE CAPSULE BY MOUTH TWICE A DAY 09/28/2017 10/26/2017 Inactive Lyrica 100 mg capsule RxNorm: 588606 1 Capsule(s) PO BID 08/26/2017 0 09/28/2017 Inactive Zithromax Z-Osman 250 mg tablet RxNorm: 382911 Tablet(s) PO As Di rected 08/07/2017 05/11/2018 Inactive Diflucan 150 mg tablet RxNorm: 472082 1 Tablet(s) PO Q72H 07/20/2017 05/11/2018 Inactive nystatin 100,000 unit/mL oral suspension RxNorm: 376716 5 Milliliter(s) PO QID swish and spit for 2 weeks 07/07/2017 07/20/2017 Inactive fluconazole 100 mg tablet RxNorm: 658978 1 Tablet(s) PO QD 07/07/20 07/13/2017 Inactive Dexilant 60 mg capsule, delayed release RxNorm: 049820 1 Capsul e(s) PO QD 07/01/2017 01/06/2018 Inactive Cymbalta 60 mg capsule,delayed release RxNorm: 901951 2 Capsule (s) PO QD 07/01/2017 09/28/2017 Inactive atenolol 50 mg tablet RxNorm: 903511 1 Tablet(s) PO BID 06/17/2017 Inactive atenolol 50 mg tablet RxNorm: 041418 1 Tablet(s) PO BID 06/17/2017 Inactive atenolol 25 mg tablet RxNorm: 080369 1 Tablet(s) PO QD 06/16/2017 Inactive Cipro 250 mg tablet RxNorm: 039641 1 Tablet(s) PO BID 05/26/201705/02 Inactive Cipro 250 mg tablet RxNorm: 950108 1 Tablet(s) PO BID 05/26/201710/2016 Inactive Cymbalta 60 mg capsule,delayed release RxNorm: 004113 2 Capsule (s) PO QD 04/02/2017 07/01/2017 Inactive Zanaflex 4 mg tablet RxNorm: 796661 1 Tablet(s) PO BID as neede d for spasm 03/18/2017 05/11/2018 Inactive methocarbamol 750 mg tablet RxNorm: 584409 1 Tablet(s) PO TID as needed for muscle spasm 03/17/2017 03/17/2017 Inactive Cymbalta 60 mg capsule,delayed release RxNorm: 260002 T LASHAUN TWO CAPSULES BY MOUTH DAILY 01/01/2017 04/02/2017 Inactive atenolol 25 mg tablet RxNorm: 550516 1 Tablet(s) PO QD 01/01/2017 Inactive Dexilant 60 mg capsule, delayed release RxNorm: 797425 1 Capsul e(s) PO QD 12/24/2016 07/01/2017 Inactive prednisone 20 mg tablet RxNorm: 441216 1 Tablet(s) PO BID 12/17/2016 12/23/2016 Inactive doxycycline hyclate 100 mg capsule RxNorm: 8526298 1 Capsule(s) PO BID 12/11/2016 12/20/2016 Inactive doxycycline hyclate 100 mg capsule RxNorm: 7913613 1 Capsule(s) PO BID 12/11/2016 12/10/2016 Inactive albuterol sulfate 2.5 mg/3 mL (0.083 %) solution for n ebulization RxNorm: 872478 3 Milliliter(s) INH Q4H as needed 12/11/2016 05/16/2018 Inactiv e guaifenesin 400 mg tablet RxNorm: 859534 1 Tablet(s) PO QID 017 05/11/2018 Inactive Tessalon Perles 100 mg capsule RxNorm: 274165 1 Capsule (s) PO TID as needed for cough 12/10/2016 12/31/2016 Inactive ProAir HFA 90 mcg/actuation aerosol inhaler RxNorm: 565197 INHALE 2 PUFFS FOUR TIMES A DAY 08/12/2016 11/12/2017 Inactive Dexilant 60 mg capsule, delayed release RxNorm: 388179 TAKE ONE CAPSULE BY MOUTH DAILY 06/16/2016 12/24/2016 Inactive Cymbalta 60 mg capsule,delayed release RxNorm: 372480 2 Capsule (s) PO QD 06/16/2016 12/12/2016 Inactive zolpidem 10 mg tablet RxNorm: 878390 TAKE ONE TABLET BY MOUTH A T BEDTIME 03/10/2016 05/28/2016 Inactive Dexilant 60 mg capsule, delayed release RxNorm: 398487 TAKE ONE CAPSULE BY MOUTH DAILY 02/06/2016 06/04/2016 Inactive Cymbalta 60 mg capsule,delayed release RxNorm: 317205 2 Capsule (s) PO QD 11/19/2015 05/16/2016 Inactive zolpidem 10 mg tablet RxNorm: 011622 TAKE ONE TABLET BY MOUTH A T BEDTIME 10/02/2015 03/10/2016 Inactive Dexilant 60 mg capsule, delayed release RxNorm: 323780 TAKE ONE CAPSULE BY MOUTH DAILY 08/28/2015 01/24/2016 Inactive ProAir HFA 90 mcg/actuation aerosol inhaler RxNorm: 786390 2 Pu ff(s) INH QID 06/25/2015 10/22/2015 Inactive famotidine 40 mg tablet RxNorm: 974471 1 Tablet(s) PO QHS 06/25/2015 10/09/2015 Inactive Dexilant 60 mg capsule, delayed release RxNorm: 684022 1 Capsul e(s) PO QD 06/07/2015 08/27/2015 Inactive zolpidem 10 mg tablet RxNorm: 827036 TAKE ONE TABLET BY MOUTH EVERY NIGHT AT BEDTIME 06/01/2015 10/03/2015 Inactive Cymbalta 60 mg capsule,delayed release RxNorm: 902544 2 Capsule (s) PO QD 05/10/2015 11/19/2015 Inactive Cymbalta 60 mg capsule,delayed release RxNorm: 656177 2 Capsule (s) PO QD 04/11/2015 05/10/2015 Inactive zolpidem 10 mg tablet RxNorm: 858726 TAKE ONE TABLET BY MOUTH A T BEDTIME 04/06/2015 06/01/2015 Inactive zolpidem 10 mg tablet RxNorm: 891403 TAKE ONE TABLET BY MOUTH A T BEDTIME 03/05/2015 04/06/2015 Inactive zolpidem 10 mg tablet RxNorm: 941229 1 Tablet(s) PO QHS as need ed for sleep 02/27/2015 03/04/2015 Inactive Cymbalta 60 mg capsule,delayed release RxNorm: 837703 1 Capsule (s) PO QD 01/18/2015 04/10/2015 Inactive [AttnRPh: Saving clare ly/adjudicate RxGRP:[id number] RxBIN:[id number] RxPCN: ID#:[id number]] Trazadone 75mg Tablet RxNorm: 1-2 Tablet(s) PO QHS as ne eded for sleep 01/18/2015 02/26/2015 Inactive Singulair 10 mg tablet RxNorm: 328512 1 Tablet(s) PO QD No Start Date Active Tylenol Extra Strength 500 mg tablet RxNorm: 554719 Tablet(s) P O as needed No Start Date Active methocarbamol 750 mg tablet RxNorm: 669652 Tablet(s) PO as needed N o Start Date Active Vitamin D3 1,000 unit capsule RxNorm: 634935 1 Capsule(s) PO BID No Start Date Active aspirin 81 mg tablet RxNorm: 166857 1 Tablet(s) PO QD No Start Date Active Symbicort 160 mcg-4.5 mcg/actuation HFA aerosol inhaler RxNo rm: 0211607 2 Puff(s) INH BID No Start Date Active atorvastatin 40 mg tablet RxNorm: 090314 1 Tablet(s) PO QD No Start D ate Active Trazadone 100 100mg mg Tablet RxNorm: 1-2 Tablet(s) PO QHS No Start Date 01/17/2015 Inactive Fish Oil 1,000 mg capsule RxNorm: 1 Capsule(s) PO QD No Start Date 05/16/2018 Inactive multivitamin with iron tablet RxNorm: 1 Tablet(s) PO QD No Sta rt Date 05/16/2018 Inactive Spiriva Respimat inhalation RxNorm: 041656 inhalation No Start Date 1 09/05/2016 Inactive atenolol 25 mg tablet RxNorm: 352451 1 Tablet(s) PO BID No Start Da te 12/31/2016 Inactive Spiriva Respimat 2.5 mcg/actuation solution for inhalation R xNorm: 2947311 2 Puff(s) INH QD No Start Date 05/11/2018 Inactive Zithromax Z-Osman 250 mg tablet RxNorm: 637985 Tablet(s) PO As Di rected No Start Date 08/06/2017 Inactive Zanaflex 4 mg tablet RxNorm: 550782 1 Tablet(s) PO BID as neede d for spasm No Start Date 03/17/2017 Inactive gabapentin 800 mg tablet RxNorm: 222695 1 Tablet(s) PO TID No Start Date 03/17/2016 Inactive losartan 100 mg tablet RxNorm: 233976 1 Tablet(s) PO QD No Start Da te 12/31/2016 Inactive cyclobenzaprine 10 mg tablet RxNorm: 613602 1 Tablet(s) PO TID as needed for muscle spasm No Start Date 05/11/2018 Inactive potassium chloride ER 10 mEq tablet,extended release RxNorm: 501097 Tablet(s) PO as needed No Start Date 01/04/2020 Inactive gabapentin 300 mg capsule RxNorm: 262669 1 Capsule(s) PO TID No Sta rt Date 10/09/2015 Inactive furosemide 40 mg tablet RxNorm: 649408 Tablet(s) PO as needed No St art Date 01/04/2020 Inactive ferrous sulfate 325 mg (65 mg iron) tablet RxNorm: 576974 1 Tab let(s) PO QD No Start Date 09/04/2019 Inactive Dexilant 60 mg capsule, delayed release RxNorm: 689851 1 Capsul e(s) PO QD No Start Date 06/06/2015 Inactive amitriptyline 25 mg tablet RxNorm: 122275 1-2 Tablet(s) PO QHS as needed for sleep --replaces ambien No Start Date 07/20/2016 Inactive hydrocodone 7.5 mg-acetaminophen 325 mg tablet RxNorm: 06907 5 1 Tablet(s) PO TID No Start Date 05/11/2018 Inactive Lyrica 75 mg capsule RxNorm: 539599 1 Capsule(s) PO BID No Start Da te 05/11/2018 Inactive gabapentin 300 mg capsule RxNorm: 890434 1 Capsule(s) PO QHS No Sta rt Date 02/07/2015 Inactive Lyrica 50 mg capsule RxNorm: 889047 1 Capsule(s) PO BID No Start Da te 07/20/2016 Inactive zolpidem 10 mg tablet RxNorm: 358672 1 Tablet(s) PO QHS No Start Da te 02/07/2015 Inactive citalopram 40 mg tablet RxNorm: 501646 1 Tablet(s) PO QD No Start D ate 01/17/2015 Inactive hydrocodone 7.5 mg-acetaminophen 325 mg tablet RxNorm: 22149 5 1 Tablet(s) PO Q6H as needed for pain No Start Date 03/17/2016 Inactive losartan 100 mg tablet RxNorm: 423799 1/2 Tablet(s) PO QD No Start Date 05/18/2017 Inactive cyanocobalamin (vit B-12) 1,000 mcg/mL injection solution Rx Norm: 960951 1 Milliliter(s) IM QW No Start Date 02/15/2019 Inactive ProAir HFA 90 mcg/actuation aerosol inhaler RxNorm: 3787000 2 Pu ff(s) INH TID No Start Date 06/24/2015 Inactive methocarbamol 750 mg tablet RxNorm: 620081 1 Tablet(s) PO TID as needed for [...] Code Result Date S ervice Location [facility] [id number] Neutrophil 27 % 10/11/2019 Unknown [facility] 8637856 BAND 0 % 10/11/2019 Unknown [facility] 3076900 Lymphocyte 59 % 10/11/2019 Unknown [facility] [id number] Monocyte 13 % 10/11/2019 Unknown [facility] 7568408 Eosinophil 1 % 10/11/2019 Unknown [facility] 6485128 Basophil 0 % 10/11/2019 Unknown [facility] [id number] Platelet Est Decreased 10/11/2019 Unkno wn [facility] [id number] Large Plts Present 10/11/2019 Unknown COMPLETE BLOOD COUNT [id number] WBC 2.4 10e9/L 10/10/19 20 Unknown COMPLETE BLOOD COUNT [id number] RBC 3.15 10e12/L 2019 Unknown COMPLETE BLOOD COUNT [id number] HEMOGLOBIN 11.4 g/dL 10/10/19 20 Unknown COMPLETE BLOOD COUNT [id number] HEMATOCRIT 35.0 % 10/10/19 20 Unknown COMPLETE BLOOD COUNT [id number] MCV 111.1 fL 0 Unknown COMPLETE BLOOD COUNT [id number] MCH 36.2 pg 0 Unknown COMPLETE BLOOD COUNT [id number] MCHC 32.6 g/dL 0 Unknown COMPLETE BLOOD COUNT [id number] PLATELET COUNT 18 10e9/L 10/01 Unknown COMPLETE BLOOD COUNT [id number] Mean Plt Volume 11.3 fL 05/2020 Unknown COMPLETE BLOOD COUNT [id number] Neut Auto 27.9 % 0 Unknown COMPLETE BLOOD COUNT [id number] Lymph Auto 58.5 % 10/10/19 20 Unknown COMPLETE BLOOD COUNT [id number] [place] Auto 12.0 % 0 Unknown COMPLETE BLOOD COUNT [id number] RDW 14.0 % 0 Unknown COMPLETE BLOOD COUNT [id number] Eos Auto 0.4 % 0 Unknown COMPLETE BLOOD COUNT [id number] Baso Auto 1.2 % 0 Unknown COMPLETE BLOOD COUNT [id number] Neutrophil Abs 0.67 10e9/L Unknown COMPLETE BLOOD COUNT [id number] Lymphocyte Abs 1.40 10e9/L Unknown COMPLETE BLOOD COUNT [id number] Monocyte Abs 0.29 10e9/L 10/01 Unknown COMPLETE BLOOD COUNT [id number] Eosinophil Abs 0.01 10e9/L Unknown COMPLETE BLOOD COUNT [id number] RDW-SD 54.2 fL 0 Unknown COMPLETE BLOOD COUNT [id number] Basophil Abs 0.03 10e9/L 10/01 Unknown NCDF [id number] Neutrophil 32 % 08/30/2019 Unknown NCDF [id number] BAND 4 % 08/30/2019 Unknown NCDF [id number] Lymphocyte 43 % 08/30/2019 Unknown NCDF 8483925 Monocyte 20 % 08/30/2019 Unknown NCDF 7497499 Eosinophil 1 % 08/30/2019 Unknown NCDF [id number] Basophil 0 % 08/30/2019 Unknown NCDF [id number] Platelet Est Decreased 08/30/2019 Unkno wn VITAMIN B 12 85330 VITAMIN B12 716 pg/mL 08/29/2019 Unkn own COMPLETE BLOOD COUNT [id number] WBC 3.0 10e9/L 08/29/20 19 Unknown COMPLETE BLOOD COUNT [id number] RBC 3.19 10e12/L 2018 Unknown COMPLETE BLOOD COUNT [id number] HEMOGLOBIN 11.5 g/dL 08/29/20 19 Unknown COMPLETE BLOOD COUNT [id number] HEMATOCRIT 35.6 % 08/29/20 19 Unknown COMPLETE BLOOD COUNT [id number] MCV 111.6 fL 9 Unknown COMPLETE BLOOD COUNT [id number] MCH 36.1 pg 9 Unknown COMPLETE BLOOD COUNT [id number] MCHC 32.3 g/dL 9 Unknown COMPLETE BLOOD COUNT [id number] PLATELET COUNT 79 10e9/L 08/02 Unknown COMPLETE BLOOD COUNT [id number] Mean Plt Volume 11.1 fL Unknown COMPLETE BLOOD COUNT [id number] Neut Auto 32.7 % 9 Unknown COMPLETE BLOOD COUNT [id number] Lymph Auto 39.6 % 08/29/20 19 Unknown COMPLETE BLOOD COUNT [id number] [place] Auto 24.4 % 9 Unknown COMPLETE BLOOD COUNT [id number] RDW 14.0 % 9 Unknown COMPLETE BLOOD COUNT 7085745 Eos Auto 2.0 % 9 Unknown COMPLETE BLOOD COUNT [id number] Baso Auto 1.3 % 9 Unknown COMPLETE BLOOD COUNT 7150404 Neutrophil Abs 0.98 10e9/L Unknown COMPLETE BLOOD COUNT [id number] Lymphocyte Abs 1.19 10e9/L Unknown COMPLETE BLOOD COUNT [id number] Monocyte Abs 0.73 10e9/L 08/02 Unknown COMPLETE BLOOD COUNT [id number] Eosinophil Abs 0.06 10e9/L Unknown COMPLETE BLOOD COUNT [id number] RDW-SD 54.5 fL 9 Unknown COMPLETE BLOOD COUNT [id number] Basophil Abs 0.04 10e9/L 08/02 Unknown NCDF 7318067 Neutrophil 37 % 05/24/2019 Unknown NCDF 9006260 BAND 5 % 05/24/2019 Unknown NCDF 7584499 Lymphocyte 34 % 05/24/2019 Unknown NCDF [id number] Monocyte 19 % 05/24/2019 Unknown NCDF 1596320 Eosinophil 3 % 05/24/2019 Unknown NCDF 0954694 Basophil 2 % 05/24/2019 Unknown NCDF [id number] Platelet Est Adequate 05/24/2019 Unknow n VITAMIN B 12 04924 VITAMIN B12 788 pg/mL 05/23/2019 Unkn own IRON 76362 Iron 152 ug/dL 05/23/2019 Unknown COMPLETE BLOOD COUNT [id number] WBC 3.9 10e9/L 05/23/20 19 Unknown COMPLETE BLOOD COUNT [id number] RBC 3.61 10e12/L 2018 Unknown COMPLETE BLOOD COUNT [id number] HEMOGLOBIN 12.5 g/dL 05/23/20 19 Unknown COMPLETE BLOOD COUNT [id number] HEMATOCRIT 38.2 % 05/23/20 19 Unknown COMPLETE BLOOD COUNT [id number] MCV 105.8 fL 9 Unknown COMPLETE BLOOD COUNT [id number] MCH 34.6 pg 9 Unknown COMPLETE BLOOD COUNT 4055076 MCHC 32.7 g/dL 9 Unknown COMPLETE BLOOD COUNT [id number] PLATELET COUNT 157 10e9/L Unknown COMPLETE BLOOD COUNT 3248998 Mean Plt Volume 10.4 fL Unknown COMPLETE BLOOD COUNT [id number] Neut Auto 35.6 % 9 Unknown COMPLETE BLOOD COUNT 7403874 Lymph Auto 33.2 % 05/23/20 19 Unknown COMPLETE BLOOD COUNT [id number] [place] Auto 26.6 % 9 Unknown COMPLETE BLOOD COUNT 8552103 RDW 14.1 % 9 Unknown COMPLETE BLOOD COUNT 1753059 Eos Auto 1.8 % 9 Unknown COMPLETE BLOOD COUNT 6302575 Baso Auto 2.8 % 9 Unknown COMPLETE BLOOD COUNT [id number] Neutrophil Abs 1.39 10e9/L Unknown COMPLETE BLOOD COUNT [id number] Lymphocyte Abs 1.29 10e9/L Unknown COMPLETE BLOOD COUNT [id number] Monocyte Abs 1.04 10e9/L 05/02 Unknown COMPLETE BLOOD COUNT [id number] Eosinophil Abs 0.07 10e9/L Unknown COMPLETE BLOOD COUNT [id number] RDW-SD 53.5 fL 9 Unknown COMPLETE BLOOD COUNT [id number] Basophil Abs 0.11 10e9/L 05/02 Unknown COMPLETE BLOOD COUNT [id number] WBC 5.4 10e9/L 06/11/20 18 Unknown COMPLETE BLOOD COUNT [id number] RBC 4.05 10e12/L 2017 Unknown COMPLETE BLOOD COUNT [id number] HEMOGLOBIN 13.5 g/dL 06/11/20 18 Unknown COMPLETE BLOOD COUNT [id number] HEMATOCRIT 41.3 % 06/11/20 18 Unknown COMPLETE BLOOD COUNT [id number] MCV 102.0 fL 8 Unknown COMPLETE BLOOD COUNT [id number] MCH 33.3 pg 8 Unknown COMPLETE BLOOD COUNT [id number] MCHC 32.7 g/dL 8 Unknown COMPLETE BLOOD COUNT [id number] PLATELET COUNT 210 10e9/L 07/2018 Unknown COMPLETE BLOOD COUNT 0137883 Mean Plt Volume 10.0 fL 07/2018 Unknown COMPLETE BLOOD COUNT [id number] Neut Auto 35.2 % 8 Unknown COMPLETE BLOOD COUNT 6043713 Lymph Auto 29.2 % 06/11/20 18 Unknown COMPLETE BLOOD COUNT [id number] [place] Auto 17.3 % 8 Unknown COMPLETE BLOOD COUNT [id number] RDW 13.8 % 8 Unknown COMPLETE BLOOD COUNT 1249247 Eos Auto 16.4 % 8 Unknown COMPLETE BLOOD COUNT 3531347 Baso Auto 1.9 % 8 Unknown COMPLETE BLOOD COUNT 5634110 Neutrophil Abs 1.90 10e9/L Unknown COMPLETE BLOOD COUNT [id number] Lymphocyte Abs 1.58 10e9/L Unknown COMPLETE BLOOD COUNT [id number] Monocyte Abs 0.93 10e9/L 05/31 Unknown COMPLETE BLOOD COUNT [id number] Eosinophil Abs 0.89 10e9/L Unknown COMPLETE BLOOD COUNT 6560444 RDW-SD 50.2 fL 8 Unknown COMPLETE BLOOD COUNT [id number] Basophil Abs 0.10 10e9/L 05/31 Unknown GFR CALC [id number] GFR Non Afr Amr >60 mL/min 06/11/2018 Un known GFR CALC 8944369 GFR Afr Amr >60 mL/min 06/11/2018 Unknow n COMPREHENSIVE METABOLIC 15791 AST 15 U/L 2017 Unknown COMPREHENSIVE METABOLIC 44110 ALT 18 U/L 2017 Unknown COMPREHENSIVE METABOLIC 08691 BUN 11 mg/dL 2017 Unknown COMPREHENSIVE METABOLIC 31483 ALBUMIN 3.7 g/dL 2017 Unknown COMPREHENSIVE METABOLIC 08930 CHLORIDE 102 mmol/L 06/11 Unknown COMPREHENSIVE METABOLIC 76535 Bili Total 0.6 mg/dL 06/11 Unknown COMPREHENSIVE METABOLIC 02479 ALK PHOS 98 U/L 2017 Unknown COMPREHENSIVE METABOLIC 07390 SODIUM 139 mmol/L 06/11 Unknown COMPREHENSIVE METABOLIC 69730 CREATININE 0.89 mg/dL 05/31 Unknown COMPREHENSIVE METABOLIC 44162 CALCIUM 8.7 mg/dL 2017 Unknown COMPREHENSIVE METABOLIC 98123 POTASSIUM 3.9 mmol/L 06/11 Unknown COMPREHENSIVE METABOLIC 44548 Total Protein 6.7 g/dL Unknown COMPREHENSIVE METABOLIC 97732 Glucose 112 mg/dL 2017 Unknown COMPREHENSIVE METABOLIC 63324 Bicarbonate 35 mmol/L 05/31 Unknown COMPREHENSIVE METABOLIC 51681 AGAP 2 mmol/L 2017 Unknown COMPLETE BLOOD COUNT [id number] WBC 7.4 10e9/L 10/17/19 16 Unknown COMPLETE BLOOD COUNT 1952179 RBC 4.42 10e12/L 2015 Unknown COMPLETE BLOOD COUNT [id number] HGB 13.8 g/dL 6 Unknown COMPLETE BLOOD COUNT [id number] HCT DET 40.8 % 6 Unknown COMPLETE BLOOD COUNT [id number] MCV 92.3 fL 6 Unknown COMPLETE BLOOD COUNT [id number] MCH 31.2 pg 6 Unknown COMPLETE BLOOD COUNT [id number] MCHC 33.8 g/dL 6 Unknown COMPLETE BLOOD COUNT [id number] PLT 247 10e9/L 10/17/19 16 Unknown COMPLETE BLOOD COUNT [id number] MPV 9.3 fL 6 Unknown COMPLETE BLOOD COUNT [id number] YANNICK % 63.0 % 6 Unknown COMPLETE BLOOD COUNT [id number] LY % 19.2 % 6 Unknown COMPLETE BLOOD COUNT [id number] MON % 15.8 % 6 Unknown COMPLETE BLOOD COUNT [id number] EOS % 1.1 % 6 Unknown COMPLETE BLOOD COUNT [id number] BASO % 0.9 % 6 Unknown COMPLETE BLOOD COUNT [id number] RDW 13.7 % 6 Unknown COMPLETE BLOOD COUNT [id number] ABS YANNICK 4.66 10e9/L 016 Unknown COMPLETE BLOOD COUNT [id number] ABS LYMPH 1.42 10e9/L 016 Unknown COMPLETE BLOOD COUNT [id number] ABS MONO 1.17 10e9/L 016 Unknown COMPLETE BLOOD COUNT [id number] ABS EOS 0.08 10e9/L 016 Unknown COMPLETE BLOOD COUNT [id number] ABS BASO 0.07 10e9/L 016 Unknown COMPLETE BLOOD COUNT [id number] RDW-SD 44.9 fL 6 Unknown GFR CALC [id number] GFR AA 46.0L ML/MIN 10/17/2015 Unknow n GFR CALC [id number] GFR NON-AA 37.0L ML/MIN 10/17/2015 Unkno wn C-REACTIVE PROTEIN (CRP) QUANT 27127 CRP 0.5 MG/DL 10/17/2015 Unknown COMPREHENSIVE METABOLIC 87648 AST 18 U/L 2015 Unknown COMPREHENSIVE METABOLIC 45843 ALT 27 U/L 2015 Unknown COMPREHENSIVE METABOLIC 09930 BUN 38 MG/DL 2015 Unknown COMPREHENSIVE METABOLIC 21606 ALBUMIN 3.7 GM/DL 2015 Unknown COMPREHENSIVE METABOLIC 72307 CHLORIDE 100 MMOL/L 10/17 Unknown COMPREHENSIVE METABOLIC 69183 BILI TOT 0.8 MG/DL 2015 Unknown COMPREHENSIVE METABOLIC 81298 ALK PHOS 70 U/L 2015 Unknown COMPREHENSIVE METABOLIC 06400 SODIUM 137 MMOL/L 10/17 Unknown COMPREHENSIVE METABOLIC 06772 CREATININE 1.80 MG/DL 10/01 Unknown COMPREHENSIVE METABOLIC 86645 CALCIUM 8.9 MG/DL 2015 Unknown COMPREHENSIVE METABOLIC 86697 POTASSIUM 5.1 MMOL/L 10/17 Unknown COMPREHENSIVE METABOLIC 50461 PROT TOT 6.6 GM/DL 2015 Unknown COMPREHENSIVE METABOLIC 93079 Glucose 99 MG/DL 2015 Unknown COMPREHENSIVE METABOLIC 88711 BICARB 22 MMOL/L 2015 Unknown COMPREHENSIVE METABOLIC 62459 ANION GAP 15 MMOL/L 2015 Unknown Procedures Procedure Codes Date ROUTINE VENIPUNCTURE CPT-4: 03702 10/10/2019 COMPLETE CBC W/AUTO DIFF WBC CPT-4: 56358 10/10/2019 THER/PROPH/DIAG INJ SC/IM CPT-4: 43985 09/20/2019 TRIAMCINOLONE ACET INJ NOS CPT-4: J3301 09/20/2019 CEFTRIAXONE SODIUM INJECTION CPT-4: J0696 09/20/2019 THER/PROPH/DIAG INJ SC/IM CPT-4: 65953 09/20/2019 THER/PROPH/DIAG INJ SC/IM CPT-4: 74344 09/19/2019 METHYLPREDNISOLONE INJECTION CPT-4: J2930 09/19/2019 CEFTRIAXONE SODIUM INJECTION CPT-4: J0696 09/19/2019 THER/PROPH/DIAG INJ SC/IM CPT-4: 79053 09/19/2019 ROUTINE VENIPUNCTURE CPT-4: 63397 08/29/2019 COMPLETE CBC W/AUTO DIFF WBC CPT-4: 03674 08/29/2019 VITAMIN B-12 CPT-4: 86672 08/29/2019 THER/PROPH/DIAG INJ SC/IM CPT-4: 96482 08/29/2019 THER/PROPH/DIAG INJ SC/IM CPT-4: 31351 08/15/2019 THER/PROPH/DIAG INJ SC/IM CPT-4: 69380 08/01/2019 THER/PROPH/DIAG INJ SC/IM CPT-4: 13966 07/18/2019 THER/PROPH/DIAG INJ SC/IM CPT-4: 44852 07/04/2019 THER/PROPH/DIAG INJ SC/IM CPT-4: 90759 06/20/2019 FLU VACC PRSV FREE INC ANTIG 65 AND OLDER CPT-4: 40244 06/06/2019 THER/PROPH/DIAG INJ SC/IM CPT-4: 41636 06/06/2019 FLU VACC PRSV FREE INC ANTIG 65 AND OLDER CPT-4: 99652 06/06/2019 PNEUMOCOCCAL VACC 23 GAIL IM CPT-4: 26346 06/06/2019 ADMIN INFLUENZA VIRUS VAC CPT-4: G0008 06/06/2019 ADMIN PNEUMOCOCCAL VACCINE CPT-4: G0009 06/06/2019 ROUTINE VENIPUNCTURE CPT-4: 35425 05/23/2019 COMPLETE CBC W/AUTO DIFF WBC CPT-4: 61438 05/23/2019 ASSAY OF IRON CPT-4: 64834 05/23/2019 VITAMIN B-12 CPT-4: 92943 05/23/2019 THER/PROPH/DIAG INJ SC/IM CPT-4: 89639 05/18/2019 THER/PROPH/DIAG INJ SC/IM CPT-4: 43770 05/04/2019 THER/PROPH/DIAG INJ SC/IM CPT-4: 72584 04/27/2019 THER/PROPH/DIAG INJ SC/IM CPT-4: 18195 04/20/2019 THER/PROPH/DIAG INJ SC/IM CPT-4: 58229 04/06/2019 THER/PROPH/DIAG INJ SC/IM CPT-4: 84534 03/23/2019 VITAMIN B12 INJECTION CPT-4: J3420 03/23/2019 THER/PROPH/DIAG INJ SC/IM CPT-4: 66295 03/14/2019 THER/PROPH/DIAG INJ SC/IM CPT-4: 30330 03/07/2019 THER/PROPH/DIAG INJ SC/IM CPT-4: 63352 02/24/2019 THER/PROPH/DIAG INJ SC/IM CPT-4: 78692 02/16/2019 CEFTRIAXONE SODIUM INJECTION CPT-4: J0696 10/29/2018 THER/PROPH/DIAG INJ SC/IM CPT-4: 10561 10/29/2018 THER/PROPH/DIAG INJ SC/IM CPT-4: 21601 10/26/2018 METHYLPREDNISOLONE INJECTION CPT-4: J2930 10/26/2018 THER/PROPH/DIAG INJ SC/IM CPT-4: 60296 06/23/2018 METHYLPREDNISOLONE INJECTION CPT-4: J2930 06/23/2018 COMPLETE CBC W/AUTO DIFF WBC CPT-4: 78615 06/11/2018 COMPREHEN METABOLIC PANEL CPT-4: 22115 06/11/2018 CEFTRIAXONE SODIUM INJECTION CPT-4: J0696 05/18/2018 THER/PROPH/DIAG INJ SC/IM CPT-4: 63139 05/18/2018 CEFTRIAXONE SODIUM INJECTION CPT-4: J0696 05/17/2018 THER/PROPH/DIAG INJ SC/IM CPT-4: 06132 05/17/2018 THER/PROPH/DIAG INJ SC/IM CPT-4: 23753 05/17/2018 METHYLPREDNISOLONE INJECTION CPT-4: J2930 05/17/2018 FLU VACC PRSV FREE INC ANTIG 65 AND OLDER CPT-4: 74110 05/12/2018 PNEUMOCOCCAL VACC 13 GAIL IM CPT-4: 07693 05/12/2018 ADMIN INFLUENZA VIRUS VAC CPT-4: G0008 05/12/2018 ADMIN PNEUMOCOCCAL VACCINE CPT-4: G0009 05/12/2018 FLU VACC PRSV FREE INC ANTIG 65 AND OLDER CPT-4: 92841 06/17/2017 ADMIN INFLUENZA VIRUS VAC CPT-4: G0008 06/17/2017 URINALYSIS NONAUTO W/O SCOPE CPT-4: 49239 05/21/2017 URINE CULTURE/ COLONY COUNT CPT-4: 59307 05/21/2017 CEFTRIAXONE SODIUM INJECTION CPT-4: J0696 12/16/2016 THER/PROPH/DIAG INJ SC/IM CPT-4: 91362 12/16/2016 THER/PROPH/DIAG INJ SC/IM CPT-4: 91589 12/16/2016 METHYLPREDNISOLONE INJECTION CPT-4: J2930 12/16/2016 CEFTRIAXONE SODIUM INJECTION CPT-4: J0696 12/15/2016 THER/PROPH/DIAG INJ SC/IM CPT-4: 88243 12/15/2016 THER/PROPH/DIAG INJ SC/IM CPT-4: 63271 12/15/2016 METHYLPREDNISOLONE INJECTION CPT-4: J2930 12/15/2016 THER/PROPH/DIAG INJ SC/IM CPT-4: 65475 12/10/2016 TRIAMCINOLONE ACET INJ NOS CPT-4: J3301 12/10/2016 DEXAMETHASONE SODIUM PHOS CPT-4: J1100 12/10/2016 FLU VACC PRSV FREE INC ANTIG 65 AND OLDER CPT-4: 50848 07/21/2016 ADMIN INFLUENZA VIRUS VAC CPT-4: G0008 07/21/2016 ROUTINE VENIPUNCTURE CPT-4: 01890 10/17/2015 COMPLETE CBC W/AUTO DIFF WBC CPT-4: 50620 10/17/2015 COMPREHEN METABOLIC PANEL CPT-4: 54710 10/17/2015 C-REACTIVE PROTEIN CPT-4: 00940 10/17/2015 FLU VACC PRSV FREE INC ANTIG 65 AND OLDER CPT-4: 78425 06/25/2015 ADMIN INFLUENZA VIRUS VAC CPT-4: G0008 06/25/2015 PRESCRIP TRANSMIT VIA ERX SY CPT-4: G8553 06/25/2015 PRESCRIP TRANSMIT VIA ERX SY CPT-4: G8553 04/11/2015 URINALYSIS NONAUTO W/O SCOPE CPT-4: 86933 02/08/2015 PRESCRIP TRANSMIT VIA ERX SY CPT-4: [...] 1: 148/74 Code: 8480-6 BMI: 35.2 Code: 51955-1 Heart Rate 1: 64 bpm Height: 5'10" [...] 1: 126/70 Code: 8480-6 BMI: 34.9 Code: 06863-7 Heart Rate 1: 64 bpm Height: 5'10" Respiratory Rate: 20 bpm SpO2: 96% Tempera ture: 36.8 (C) / 98.3 (F) Weight: 243 lbs 07/20/2017 Blood Pressure 1: 136/78 Code: 8480-6 Heart Rate 1: 74 bpm Height: 5'10" Respiratory Rate: 22 bpm SpO2: 98% Temperature: 36.2 (C) / 97.1 (F) Weight: 07/07/2017 Blood Pressure 1: 136/78 Code: 8480-6 BMI: 35.3 Code: 28017-8 Heart Rate 1: 72 bpm Height: 5'10" Respiratory Rate: 20 bpm SpO2: 95% Tempera ture: 36.7 (C) / 98.1 (F) Weight: 246 lbs 06/17/2017 Blood Pressure 1: 128/68 Code: 8480-6 BMI: 34.7 Code: 10752-7 Heart Rate 1: 80 bpm Height: 5'10" Respiratory Rate: 22 bpm SpO2: 94% Tempera ture: 36.7 (C) / 98.0 (F) Weight: 242 lbs 05/19/2017 Blood Pressure 1: 112/68 Code: 8480-6 BMI: 34.9 Code: 46052-8 Heart Rate 1: 84 bpm Height: 5'10" Respiratory Rate: 18 bpm SpO2: 97% Tempera ture: 36.4 (C) / 97.6 (F) Weight: 243 lbs 02/24/2017 Blood Pressure 1: 122/62 Code: 8480-6 Heart Rate 1: 66 bpm Height: 5'10" Respiratory Rate: 18 bpm SpO2: 95% Temperature: 36 .6 (C) / 97.9 (F) 01/01/2017 Blood Pressure 1: 126/58 Code: 8480-6 BMI: 34.9 Code: 98462-3 Heart Rate 1: 72 bpm Height: 5'10" [...] 1: 124/68 Code: 8480-6 BMI: 35.4 Code: 59168-3 Heart Rate 1: 84 bpm Height: 5'10" Respiratory Rate: 20 bpm SpO2: 94% Tempera ture: 37.0 (C) / 98.6 (F) Weight: 247 lbs 05/29/2016 Blood Pressure 1: 112/72 Code: 8480-6 BMI: 36.0 Code: 76181-7 Heart Rate 1: 108 bpm Height: 5'10" Respiratory Rate: 24 bpm SpO2: 91% Tempera ture: 36.4 (C) / 97.6 (F) Weight: 251 lbs 03/18/2016 Blood Pressure 1: 122/64 Code: 8480-6 BMI: 35.6 Code: 54391-8 Heart Rate 1: 64 bpm Height: 5'10" [...] 1: 134/78 Code: 8480-6 BMI: 35.9 Code: 41246-9 Heart Rate 1: 72 bpm Height: 5'10" Respiratory Rate: 20 bpm Temperature: 36 .9 (C) / 98.4 (F) Weight: 250 lbs 08/30/2015 Blood Pressure 1: 128/62 Code: 8480-6 Heart Rate 1: 78 bpm Respiratory Rate: 20 bpm SpO2: 96% Temperature: 35.9 (C) / 96.6 (F) We ight: 252 lbs 06/25/2015 Blood Pressure 1: 126/70 Code: 8480-6 BMI: 36.9 Code: 43194-7 Heart Rate 1: 64 bpm Height: 5'10" Respiratory Rate: 20 bpm Temperature: 36 .6 (C) / 97.9 (F) Weight: 257 lbs 04/25/2015 Blood Pressure 1: 130/80 Code: 8480-6 BMI: 37.3 Code: 70368-2 Heart Rate 1: 64 bpm Height: 5'10" Respiratory Rate: 22 bpm Temperature: 36 .4 (C) / 97.6 (F) Weight: 260 lbs 04/11/2015 Blood Pressure 1: 148/70 Code: 8480-6 BMI: 37.3 Code: 72542-4 Heart Rate 1: 66 bpm Height: 5'10" Respiratory Rate: 18 bpm Temperature: 36 .5 (C) / 97.7 (F) Weight: 260 lbs 02/27/2015 Blood Pressure 1: 122/58 Code: 8480-6 BMI: 36.0 Code: 03951-4 Heart Rate 1: 80 bpm Height: 5'10" Respiratory Rate: 20 bpm Temperature: 36 .7 (C) / 98.1 (F) Weight: 251 lbs 02/08/2015 Blood Pressure 1: 140/68 Code: 8480-6 BMI: 36.7 Code: 94673-2 Heart Rate 1: 64 bpm Height: 5'10" Respiratory Rate: 20 bpm Temperature: 36 .9 (C) / 98.5 (F) Weight: 256 lbs 01/18/2015 Blood Pressure 1: 136/68 Code: 8480-6 BMI: 33.0 Code: 97861-3 Heart Rate 1: 60 bpm Height: 5'10" [...] Diagnosis: Chronic depressive disorder[ICD10: F32.9] Haylee Piper [facility] CPT-4: 88981 01/04/2020 ([id number]) NURSE/OUTPATIENT VISIT EST Diagnosis: Thrombocytopenia[ICD10: D69.6] Haylee Muniz [facility] CPT-4: 60841 10/10/2019 ([id number]) NO CHARGE Diagnosis: Pancytopenia[ICD10: D61.818] [facility]: 76388 10/10/2019 ([id number]) OFFICE/OUTPATIENT VISIT EST Diagnosis: Chronic obstructive pulmonary disease, unspecified[ICD10: J44.9] Diagnosis: Pancytopenia[ICD10: D61.818] [facility] CPT-4: 20423 09/29/2019 ([id number]) NO CHARGE Diagnosis: Chronic obstructive pulmonary disease with (acute) exacerbation[ICD10: J44.1] Haylee PIPER DO [facility] CPT- 4: 70647 09/21/2019 ([id number]) OFFICE/OUTPATIENT VISIT EST Diagnosis: Chronic obstructive pulmonary disease with acute lower respiratory infection[ICD10: J44.0] Diagnosis: Chronic obstructive pulmonary disease with (acute) exacerbation[ICD10: J44.1] Haylee PIPER DO [facility] CPT- 4: 88971 09/20/2019 ([id number]) OFFICE/OUTPATIENT VISIT EST Diagnosis: COPD with lower respiratory infection[ICD10: J44.0] Diagnosis: COPD with exacerbation[ICD10: J44.1] Haylee PIPER DO [facility] CPT-4: 67631 09/19/2019 ([id number]) OFFICE/OUTPATIENT VISIT EST Diagnosis: Other fatigue[ICD10: R53.83] Diagnosis: Pancytopenia[ICD10: D61.818] Diagnosis: Other intervertebral disc degeneration, 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] Haylee PIPER DO [facility] CPT-4: 10242 09/05/2019 ([id number]) OFFICE/OUTPATIENT VISIT EST Diagnosis: Vitamin B12 deficiency anemia, unspecified[ICD10: D51.9] Diagnosis: Other fatigue[ICD10: R53.83] Diagnosis: Unsteadiness[ICD10: R26.81] Haylee ESCOBAR DO [facility] CPT-4: 19144 08/29/2019 ([id number]) NURSE/OUTPATIENT VISIT EST Diagnosis: Vitamin B12 deficiency anemia, unspecified[ICD10: D51.9] Haylee PIPER DO [facility] CPT-4: 98154 08/15/2019 ([id number]) NURSE/OUTPATIENT VISIT EST Diagnosis: Vitamin B12 deficiency anemia, unspecified[ICD10: D51.9] Haylee PIPER DO [facility] CPT-4: 40736 08/01/2019 ([id number]) NURSE/OUTPATIENT VISIT EST Diagnosis: Vitamin B12 deficiency anemia, unspecified[ICD10: D51.9] Haylee PIPER DO [facility] CPT-4: 06286 07/18/2019 ([id number]) NURSE/OUTPATIENT VISIT EST Diagnosis: Vitamin B12 deficiency anemia, unspecified[ICD10: D51.9] Haylee PIPER DO [facility] CPT-4: 94958 07/04/2019 ([id number]) NURSE/OUTPATIENT VISIT EST Diagnosis: Vitamin B12 deficiency anemia, unspecified[ICD10: D51.9] Haylee PIPER DO [facility] CPT-4: 65315 06/20/2019 ([id number]) NURSE/OUTPATIENT VISIT EST Diagnosis: Vitamin B12 deficiency anemia, unspecified[ICD10: D51.9] Diagnosis: FLU VACCINE[ICD10: Z23] Diagnosis: PNEUMOCOCCAL VACCINE[ICD10: Z23] Haylee PIPER DO [facility] CPT-4: 96306 06/06/2019 ([id number]) OFFICE/OUTPATIENT VISIT EST Diagnosis: Other fatigue[ICD10: R53.83] Diagnosis: B12 deficiency[ICD10: E53.8] Diagnosis: Iron deficiency anemia[ICD10: D50.9] Haylee PIPER DO [facility] CPT-4: 25073 05/23/2019 ([id number]) NURSE/OUTPATIENT VISIT EST Diagnosis: Vitamin B12 deficiency anemia, unspecified[ICD10: D51.9] Haylee PIPER DO [facility] CPT-4: 44518 05/18/2019 ([id number]) NURSE/OUTPATIENT VISIT EST Diagnosis: Vitamin B12 deficiency anemia, unspecified[ICD10: D51.9] Haylee PIPER DO [facility] CPT-4: 03502 05/04/2019 ([id number]) NURSE/OUTPATIENT VISIT EST Diagnosis: Vitamin B12 deficiency anemia, unspecified[ICD10: D51.9] Haylee PIPER DO [facility] CPT-4: 24756 04/27/2019 ([id number]) NURSE/OUTPATIENT VISIT EST Diagnosis: Vitamin B12 deficiency anemia, unspecified[ICD10: D51.9] Haylee PIPER DO [facility] CPT-4: 35154 04/20/2019 ([id number]) NURSE/OUTPATIENT VISIT EST Diagnosis: Vitamin B12 deficiency anemia, unspecified[ICD10: D51.9] Haylee PIPER DO [facility] CPT-4: 06444 04/06/2019 ([id number]) NURSE/OUTPATIENT VISIT EST Diagnosis: Vitamin B12 deficiency anemia, unspecified[ICD10: D51.9] Haylee PIPER DO [facility] CPT-4: 64755 03/23/2019 ([id number]) OFFICE/OUTPATIENT VISIT EST Diagnosis: Other intervertebral disc degeneration, 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] Diagnosis: Vitamin B12 deficiency anemia, unspecified[ICD10: D51.9] Diagnosis: Vitamin D deficiency, unspecified[ICD10: E55.9] Haylee PIPER DO [facility] CPT-4: 41078 03/17/2019 ([id number]) NURSE/OUTPATIENT VISIT EST Diagnosis: Vitamin B12 deficiency anemia, unspecified[ICD10: D51.9] Haylee PIPER DO [facility] CPT-4: 82569 03/14/2019 ([id number]) NURSE/OUTPATIENT VISIT EST Diagnosis: Vitamin B12 deficiency anemia, unspecified[ICD10: D51.9] Haylee PIPER DO [facility] CPT-4: 70719 03/07/2019 ([id number]) NURSE/OUTPATIENT VISIT EST Diagnosis: Vitamin B12 deficiency anemia, unspecified[ICD10: D51.9] Haylee PIPER DO [facility] CPT-4: 26200 02/24/2019 ([id number]) NURSE/OUTPATIENT VISIT EST Diagnosis: Vitamin B12 deficiency anemia, unspecified[ICD10: D51.9] Haylee PIPER DO [facility] CPT-4: 39892 02/16/2019 ([id number]) OFFICE/OUTPATIENT VISIT EST Diagnosis: Other fatigue[ICD10: R53.83] Diagnosis: Chronic obstructive pulmonary disease, unspecified[ICD10: J44.9] Diagnosis: Other spondylosis with radiculopathy, 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] Diagnosis: Vitamin D deficiency, unspecified[ICD10: E55.9] Diagnosis: Hyperglycemia, unspecified[ICD10: R73.9] Haylee PIPER DO [facility] CPT-4: 94741 02/14/2019 ([id number]) OFFICE/OUTPATIENT VISIT EST Diagnosis: Chronic obstructive pulmonary disease, unspecified[ICD10: J44.9] Diagnosis: Hypoxemia[ICD10: R09.02] Haylee MATHEWS [facility] CPT-4: 30871 11/11/2018 ([id number]) OFFICE/OUTPATIENT VISIT EST Diagnosis: Acute bronchitis, unspecified[ICD10: J20.9] Diagnosis: Other specified respiratory disorders[ICD10: J98.8] Diagnosis: Chronic obstructive pulmonary disease with (acute) exacerbation[ICD10: J44.1] Chula PIPER DO [facility] CPT- 4: 87498 10/29/2018 OFFICE/OUTPATIENT VISIT EST Diagnosis: Acute bronchitis due to other specified organisms[ICD10: J20.8] Diagnosis: Chronic obstructive pulmonary disease, unspecified[ICD10: J44.9] Chula PIPER DO [facility] CPT-4: 39827 10/26/2018 OFFICE/OUTPATIENT VISIT EST Diagnosis: Cervicalgia[ICD10: M54.2] Diagnosis: Other muscle spasm[ICD10: M62.838] Diagnosis: Chronic obstructive pulmonary disease, unspecified[ICD10: J44.9] Haylee PIPER DO [facility] CPT-4: 97334 08/11/2018 ([id number]) NURSE/OUTPATIENT VISIT EST Diagnosis: Acute bronchitis, unspecified[ICD10: J20.9] Haylee PIPER DO [facility] CPT-4: 14199 06/23/2018 ([id number]) OFFICE/OUTPATIENT VISIT EST Diagnosis: Acute bronchitis, unspecified[ICD10: J20.9] Columba PIPER DO [facility] CPT-4: 84451 06/17/2018 ([id number]) OFFICE/OUTPATIENT VISIT EST Diagnosis: Acute gastritis without bleeding[ICD10: K29.00] Columba PIPER DO [facility] CPT-4: 09920 06/11/2018 ([id number]) OFFICE/OUTPATIENT VISIT EST Diagnosis: Acute bronchitis, unspecified[ICD10: J20.9] Columba PIPER DO [facility] CPT-4: 84848 05/18/2018 ([id number]) OFFICE/OUTPATIENT VISIT EST Diagnosis: Dizziness and giddiness[ICD10: R42] Diagnosis: Acute bronchitis, unspecified[ICD10: J20.9] Diagnosis: Chronic obstructive pulmonary disease with acute lower respiratory infection[ICD10: J44.0] Columba PIPER DO [facility] CPT-4: 43850 05/17/2018 ([id number]) OFFICE/OUTPATIENT VISIT EST Diagnosis: Primary insomnia[ICD10: F51.01] Diagnosis: Other fatigue[ICD10: R53.83] 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] Diagnosis: Other spondylosis with radiculopathy, 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] Diagnosis: PNEUMOCOCCAL VACCINE[ICD10: Z23] Diagnosis: FLU VACCINE[ICD10: Z23] Haylee [facility] CPT-4: 18425 05/12/2018 OFFICE/OUTPATIENT VISIT EST Diagnosis: Candidal stomatitis[ICD10: B37.0] Columba PIPER DO [facility] CPT-4: 59000 07/20/2017 ([id number]) OFFICE/OUTPATIENT VISIT EST Diagnosis: Candidal stomatitis[ICD10: B37.0] Haylee PIPER DO [facility] CPT-4: 79162 07/07/2017 ([id number]) OFFICE/OUTPATIENT VISIT EST Diagnosis: Localized edema[ICD10: R60.0] Diagnosis: Anemia, unspecified[ICD10: D64.9] Diagnosis: Disorder of kidney and ureter, unspecified[ICD10: N28.9] Diagnosis: FLU VACCINE[ICD10: Z23] Haylee [facility] CPT-4: 46657 06/17/2017 ([id number]) OFFICE/OUTPATIENT VISIT EST Diagnosis: Dysuria[ICD10: R30.0] Haylee PIPER DO [facility] CPT-4: 96499 05/21/2017 OFFICE/OUTPATIENT VISIT EST Diagnosis: Encounter for other specified special examinations[ICD10: Z01.89] Diagnosis: Disorder of kidney and ureter, unspecified[ICD10: N28.9] Diagnosis: Anemia, unspecified[ICD10: D64.9] Mayra Arugello TWIN PIPER DO [facility] CPT-4: 17920 05/19/2017 ([id number]) OFFICE/OUTPATIENT VISIT EST Diagnosis: URI, ACUTE[ICD10: J06.9] Haylee MATHEWS [facility] CPT-4: 71407 02/24/2017 ([id number]) OFFICE/OUTPATIENT VISIT EST Diagnosis: Hypotension, unspecified[ICD10: I95.9] Diagnosis: Bradycardia, unspecified[ICD10: R00.1] [facility]: 57611 01/01/2017 ([id number]) NO CHARGE Diagnosis: Chronic obstructive pulmonary disease with (acute) exacerbation[ICD10: J44.1] Diagnosis: Pneumonia, unspecified organism[ICD10: J18.9] [facility]: 84615 12/22/2016 OFFICE/OUTPATIENT VISIT EST Diagnosis: Pneumonia, unspecified organism[ICD10: J18.9] Diagnosis: Chronic obstructive pulmonary disease with (acute) exacerbation[ICD10: J44.1] Haylee PIPER [facility] CPT- 4: 25338 12/17/2016 OFFICE/OUTPATIENT VISIT EST Diagnosis: Pneumonia, unspecified organism[ICD10: J18.9] Diagnosis: Mild intermittent asthma with (acute) exacerbation[ICD10: J45.21] Diagnosis: Chronic obstructive pulmonary disease with (acute) exacerbation[ICD10: J44.1] Haylee PIPRE DO [facility] CPT- 4: 04324 12/16/2016 ([id number]) OFFICE/OUTPATIENT VISIT EST Diagnosis: Mild intermittent asthma with (acute) exacerbation[ICD10: J45.21] Diagnosis: Pneumonia, unspecified organism[ICD10: J18.9] Haylee PIPER [facility] CPT-4: 56628 12/15/2016 ([id number]) OFFICE/OUTPATIENT VISIT EST Diagnosis: Acute bronchitis, unspecified[ICD10: J20.9] Diagnosis: Unspecified asthma with (acute) exacerbation[ICD10: J45.901] Susie STEPHENSONLINE Pro PIPER [facility] CPT-4: 71141 12/11/2016 ([id number]) OFFICE/OUTPATIENT VISIT EST Diagnosis: Acute bronchitis, unspecified[ICD10: J20.9] Diagnosis: Unspecified asthma with (acute) exacerbation[ICD10: J45.901] Susie PIPER [facility] CPT-4: 04435 12/10/2016 ([id number]) OFFICE/OUTPATIENT VISIT EST Diagnosis: Chronic obstructive pulmonary disease with (acute) exacerbation[ICD10: J44.1] Diagnosis: Other spondylosis with radiculopathy, 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] Diagnosis: Other intervertebral disc degeneration, 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] Diagnosis: Mixed hyperlipidemia[ICD10: E78.2] Diagnosis: Other intervertebral disc degeneration, 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] [facility]: 79294 03/18/2016 OFFICE/OUTPATIENT VISIT EST Diagnosis: Hypotension, unspecified[ICD10: I95.9] Diagnosis: Dizziness and giddiness[ICD10: R42] [facility]: 27573 10/18/2015 ([id number]) OFFICE/OUTPATIENT VISIT EST Diagnosis: Hypotension, unspecified[ICD10: I95.9] [facility]: 96615 10/17/2015 ([id number]) OFFICE/OUTPATIENT VISIT EST Diagnosis: Solitary pulmonary nodule[ICD10: R91.1] Diagnosis: Other spondylosis with radiculopathy, 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] Diagnosis: Other amnesia[ICD10: R41.3] Haylee Piper HAYLEE Pro ESCOBAR [facility] CPT-4: 86067 10/10/2015 ([id number]) OFFICE/OUTPATIENT VISIT EST Diagnosis: Pneumonia, unspecified organism[ICD10: J18.9] Diagnosis: Solitary pulmonary nodule[ICD10: R91.1] [facility]: 75989 08/30/2015 ([id number]) OFFICE/OUTPATIENT VISIT EST Diagnosis: Gastro-esophageal reflux disease with esophagitis[ICD10: K21.0] 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 CPT-4: 63379 04/11/2015 ([id number]) OFFICE/OUTPATIENT VISIT EST Diagnosis: MALAISE AND FATIGUE[ICD9: 780.79] Diagnosis: Lumbar degenerative disc disease[ICD9: 722.52] Diagnosis: Leg weakness[ICD9: 729.89] Haylee ROLLINS[facility] [employer] CPT-4: 58433 02/27/2015 ([id number]) OFFICE/OUTPATIENT VISIT EST Diagnosis: Tremor[ICD9: 781.0] Diagnosis: Memory disturbance[ICD9: 780.93] Haylee PIPER [employer] CPT-4: 21510 02/08/2015 ([id number]) OFFICE/OUTPATIENT VISIT NEW Diagnosis: INSOMNIA NOS[ICD9: 780.52] Diagnosis: Lumbar degenerative disc disease[ICD9: 722.52] Diagnosis: Leg weakness[ICD9: 729.89] Diagnosis: DEPRESSIVE DISORDER NEC[ICD9: 311] Diagnosis: Coronary artery disease[ICD9: 414.00] Diagnosis: Peripheral vascular disease[ICD9: 443.9] Haylee PIPER [employer] CPT-4: 94232 01/18/2015 Plan of Care Planned Activity Notes Codes Status Date Visit Diagnosis Plan: Chronic depressive disorder Disc ussion: Change duloxetine to Wellbutrin XL in AM and Escitalopram 10mg q PM Follow Up: 4 weeks ICD-9 : 301.12 ICD-10 : F32.9 01/04/2020 Patient Education: escitalopram oxalate- [employer] Co upon [id number] [email or web address]/Voices/resources/getResource/61/[email or web address] Completed 01/04/2020 Patient Education: Wellbutrin XL- [employer] Coupon [id number] https://www.[employer]/Voices/resources/getResource/61/[email or web address] Completed 01/04/2020 Visit Diagnosis Plan: Pancytopenia Discussion: Discuss ed options including hospice Patient has decided that he wants to proceed with oncology/hematology eval. so will try to arrange for that this week Once again discussed bleeding risks and reasons to seek immediate care ICD-9 : 284.19 ICD-10 : D61.818 10/10/2019 Appointment: Haylee Piperl: [address] [place], [place] [phone] US LAB 10/10/2019 Appointment: Haylee Piper WPtel: [address] [place] [address] US WORK IN 10/10/2019 Patient Education: Dexilant- [employer] Coupon [id number] [email or web address].[employer]/Voices/resources/getResource/61/[email or web address]-cy Completed 10/10/2019 Care Plan: COMPREH[place] METAB[place] : [id number] Pending 10/06/2019 Care Plan: COMPLETE CBC W/AUTO DIFF WBC LOINC : 50221-9 Pending 10/06/2019 Visit Diagnosis Plan: Pancytopenia Discussion: CBC in 1 week Once again discussed hematology consult ICD-9 : 284.19 ICD-10 : D61.818 09/29/2019 Visit Diagnosis Plan: Chronic obstructive pulmonary di sease, unspecified Discussion: Restart Symbicort Start pulmonary rehab Use oxygen q HS and prn Use SVNs with abuterol at least QID ICD-9 : 496 ICD-10 : J44.9 09/29/2019 Appointment: Haylee Piper WPtel: [address] [place] [address] Hospital Follow Up 09/29/2019 Visit Diagnosis Plan: Chronic obstructiv e pulmonary disease with (acute) exacerbation Discussion: Direct admit to hospital ICD-9 : 491.21 ICD-10 : J44.1 09/21/2019 Appointment: Haylee Piper WPtel: [address] [place], [place] [phone] [place] WORK IN 09/21/2019 Visit Diagnosis Plan: Chronic obstructiv e pulmonary disease with (acute) exacerbation Discussion: Continue SVNS with duoneb q4 hrs Kenalog 40mg IM today Fwup tomorrow ICD-9 : 491.21 ICD-10 : J44.1 09/20/2019 Visit Diagnosis Plan: Chronic obstructiv e pulmonary disease with acute lower respiratory infection Discussion: Repeat rocephin 1gm IM Reche ck tomorrow ICD-9 : 496 ICD-10 : J44.0 09/20/2019 Appointment: Haylee Piper WPtel: [address] [place], [place] [phone] [place] WORK IN 09/20/2019 Visit Diagnosis Plan: COPD with exacerbation Discussio n: Solumedrol 125mg IM now SVNs with duoneb q4hrs Recheck tomorrow ICD-9 : 491.21 ICD-10 : J44.1 09/19/2019 Visit Diagnosis Plan: COPD with lower respiratory infe ction Discussion: Rocephin 1gm IM now Recheck tomorrow ICD-9 : 496 ICD-10 : J44.0 09/19/2019 Appointment: Haylee Piper WPtel: [address] [place] [address] [place] FOLLOW UP 09/19/2019 Appointment: Haylee Piper WPtel: [address] [place], [place] [phone] [place] 09/02/19---moved him to a cancellation spot on Thursday09-05-19 (km) CANCELED 09/07/2019 Visit Diagnosis Plan: Other intervertebral disc degene ration, lumbar region Discussion: Decrease lyrica to 100mg po q HS for 3 days then 50mg po q HS for 3 days then stop ICD-9 : 722.52 ICD-10 : M51.36 09/05/2019 Visit Diagnosis Plan: Pancytopenia Discussion: Discuss ed etiologies including recent virus, myelodysplasia, cancer Patient would like blood count rechecked in a couple of weeks and then will decide on hematology/oncology consult Discussed Bone Marrow Biopsy ICD-9 : 284.19 ICD-10 : D61.818 09/05/2019 Appointment: Haylee Piper WPtel: [address] [place], [place] [phone] [place] FOLLOW UP 09/05/2019 Patient Education: Lyrica- OptimizeRX Beccapon [id number] https://www.[employer]/samplemd/resources/getResource/[email or web address].pdf Completed 09/05/2019 Visit Diagnosis Plan: Vitamin B12 [...] ICD-10 : R26.81 08/29/2019 Appointment: Haylee Pipertel: [address] [place], [place] [phone] [place] MEDICATION REVIEW 08/29/2019 Appointment: Haylee Piper WPtel: [address] [place], [place] [phone] [place] INJECTION 08/15/2019 Appointment: Haylee Piper WPtel: [address] [place], [place] [phone] [place] INJECTION 08/01/2019 Appointment: Haylee Piper WPtel: [address] [place], [place] [phone] [place] INJECTION 07/18/2019 Appointment: Haylee Piper WPtel: [address] [place], [place] [phone] [place] INJECTION 07/04/2019 Appointment: Haylee Piper WPtel: [address] [place], [place] [phone] [place] INJECTION 06/20/2019 Appointment: Haylee Piper WPtel: [address] [place], [place] [phone] [place] INJECTION 06/06/2019 Appointment: Haylee Piper WPtel: [address] [place], [place] [phone] [place] 06/02/19 1340---SENT REFILL OF B12 TO [facility], PATIENT WILL BE BACK THURSDAY (KM) CANCELED 06/02/2019 Visit Diagnosis Plan: Iron deficiency anemia Discussio n: Check iron level ICD-9 : 280.9 ICD-10 : D50.9 05/23/2019 Visit Diagnosis Plan: B12 deficiency Discussion: Check B12 level ICD-9 : 266.2 ICD-10 : E53.8 05/23/2019 Visit Diagnosis Plan: Other fatigue Discussion: Check CBC Improving with B12 shots ICD-9 : 780.79 ICD-10 : R53.83 05/23/2019 Appointment: Haylee Piper WPtel: [address] [place] [address] [place] FOLLOW UP 05/23/2019 Appointment: Haylee Piper WPtel: [address] [place], [place] [phone] [place] INJECTION 05/18/2019 Appointment: Haylee Piper WPtel: [address] [place], [place] [phone] [place] INJECTION 05/04/2019 Appointment: Haylee Piper WPtel: [address] [place] [phone] [place] INJECTION 04/27/2019 Appointment: Haylee Piper WPtel: [address] [place] [phone] [place] INJECTION 04/20/2019 Appointment: Haylee Piper WPtel: [address] [place], [place] [phone] [place] INJECTION 04/06/2019 Appointment: Haylee Piper WPtel: [address] [place] [phone] [place] INJECTION 03/23/2019 Visit Diagnosis Plan: Other [...] : D51.9 03/17/2019 Appointment: Haylee Piper WPtel: [address] [place] [address] [place] lm FOLLOW UP 03/17/2019 Care Plan: Referral Order SNOMED-CT : [id number] Pending 03/17/2019 Appointment: Haylee Piper WPtel: [address] [place], [place] [phone] [place] INJECTION 03/14/2019 Appointment: Haylee Piper WPtel: [address] [place], [place] [phone] [place] INJECTION 03/07/2019 Appointment: Haylee Piper WPtel: [address] [place], [place] [phone] [place] INJECTION 02/24/2019 Appointment: Haylee Piper WPtel: [address] [place], [place] [phone] [place] INJECTION 02/16/2019 Visit Diagnosis Plan: Chronic [...] : R53.83 02/14/2019 Appointment: Haylee Piper WPtel: [address] [place], [place] [phone] [place] FOLLOW UP 02/14/2019 Visit Diagnosis Plan: [...] : J44.9 11/11/2018 Appointment: Haylee Piper WPtel: [address] [place], [place] [phone] [place] FOLLOW UP 11/11/2018 Visit Diagnosis Plan: [...] ICD-10 : J20.9 10/29/2018 Appointment: Chula Balbuena [address] [place], [place] [id number] ACUTE ILLNESS 10/29/2018 Patient Education: prednisone- [employer] Coupon [id number] https://www.[employer]/samplemd/resources/getResource/61/760v990g-6y66-9qz4-57 Completed 10/29/2018 Visit Diagnosis Plan: Acute bronchitis [...] ILLNESS 10/26/2018 Patient Education: doxycycline hyclate- [employer] [facility] [id number] https://www.[employer]/samplemd/resources/getResource/61/019898d9-k72a-1192-1g Completed 10/26/2018 Visit Diagnosis Plan: Chronic obstructive [...] : M54.2 08/11/2018 Appointment: Haylee Piper WPtel: [address] [place], [place] [phone] FOLLOW UP 08/11/2018 Appointment: Haylee Piper WPtel: [address] [place], [place] [phone] [place] INJECTION 06/23/2018 Patient Education: Patient Medication [...] ICD-10 : J20.9 06/17/2018 Appointment: Columba Curtis [address] [place] [address] ACUTE ILLNESS 06/17/2018 Patient Education: Patient Medication [...] ICD-10 : K29.00 06/11/2018 Appointment: Columba Curtis [address] [place] [address] ACUTE ILLNESS 06/11/2018 Patient Education: Patient Medication [...] ICD-10 : J20.9 05/18/2018 Appointment: Columba Curtis [address] [place] [address] FOLLOW UP 05/18/2018 Patient Education: Patient Medication [...] ICD-10 : J20.9 05/17/2018 Appointment: Columba Curtis [address] [place] [address] ACUTE ILLNESS 05/17/2018 Patient Education: Patient Medication Summary Completed 05/17/2018 Visit Diagnosis Plan: Other fatigue Discussion: Check CBC, TSH, Free T4 ICD-9 : 780.79 ICD-10 : R53.83 05/12/2018 Visit Diagnosis Plan: 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 Discussion: Following [...] F51.01 05/12/2018 Appointment: Haylee Piper WPtel: [address] [place] [address] FOLLOW UP 05/12/2018 Patient Education: Patient Medication Summary Completed 05/12/2018 Appointment: Haylee Piper WPtel: [address] [place] [address] [place] CANCELED 09/21/2017 Visit Diagnosis Plan: Candidal [...] ICD-10 : B37.0 07/20/2017 Appointment: Columba Curtis [address] [place] [address] ACUTE ILLNESS 07/20/2017 Patient Education: Patient Medication [...] : B37.0 07/07/2017 Appointment: Haylee Piper WPtel: [address] [place] [address] FOLLOW UP 07/07/2017 Patient Education: Patient Medication Summary Completed 07/07/2017 Visit Diagnosis Plan: Localized edema Discussion: Star t lasix 20mg with potassium every other day and check Chem 7 in 2 weeks Flu shot given ICD-9 : 782.3 ICD-10 : R60.0 06/17/2017 Appointment: Haylee Piper WPtel: [address] [place] [address] FOLLOW UP 06/17/2017 Patient Education: Patient Medication Summary Completed 06/17/2017 Appointment: Haylee Piper WPtel: [address] [place] [address] 05/21/2017 Patient Education: Patient Medication Summary Completed 05/21/2017 Appointment: Haylee Piper WPtel: [address] [place] [address] RESCHEDULED 05/20/2017 Visit Plan: Plan labs within the week CB C, CMP to check anemia, kidney status RTC in [address] Piper and for any worsening before that time. 05/19/2017 Appointment: Mayra Arguello WPtel: [address] [place] [address] Hospital Follow Up 05/19/2017 Patient Education: Patient [...] care. Rest, Fluids... 02/24/2017 Appointment: Haylee Pipertel: [address] [place], [place] [phone] WORK IN 02/24/2017 Patient Education: Patient Medication [...] : R00.1 01/01/2017 Appointment: Haylee Piper WPtel: [address] [place], [place] [phone] Hospital Follow Up 01/01/2017 Patient Education: Patient Medication Summary Completed 01/01/2017 Visit Diagnosis Plan: Chronic obstructiv e pulmonary disease with (acute) exacerbation Discussion: Exam, vitals and patient fee ling better is reassuring Finish rxs previously given Continue nebs PRN Follow up PRN ICD-9 : 491.21 ICD-10 : J44.1 12/22/2016 Appointment: Susie Paniagua [address] [facility] FOLLOW UP 12/22/2016 Patient Education: Patient Medication [...] J44.1 12/17/2016 Appointment: Haylee Piper WPtel: [facility]note 3[facility] [place] [facility] [place] 12/17/2016 Patient Education: Patient [...] : J18.9 12/16/2016 Appointment: Haylee Piper WPtel: [address] [place], [place] [id number] [place] WORK IN 12/16/2016 Patient Education: Patient [...] : J45.21 12/15/2016 Appointment: Haylee Piper WPtel: [address] [place], [place] [id number] [place] WORK IN 12/15/2016 Patient Education: Patient [...] ICD-10 : J20.9 12/11/2016 Appointment: Susie Paniagua [address] [place], [place] [id number] FOLLOW UP 12/11/2016 Patient Education: Patient Medication Summary Completed 12/11/2016 Care Plan: CHEST X-RAY 2VW FRONTAL&LATL LOINC : 11687-2 Pending 12/11/2016 Care Plan: CBC Pending 12/11/2016 Visit Diagnosis Plan: Acute bronchitis, unspecified Di scussion: Injection in clinic today Continue proair Rxs as above Vicks, humidifier, etc Recheck tomorrow in clinic Will get CXR and labs if not starting to improve ICD-9 : 466.0 ICD-10 : J20.9 12/10/2016 Appointment: Susie Paniagua [address] [place] [address] ACUTE ILLNESS 12/10/2016 Patient Education: Patient Medication Summary Completed 12/10/2016 Visit Plan: Flu shot given Breo 100mcg 1 p BID for 2weeks with proair prn Notify if worsening or persists Fwup first part of October and sooner with needed 07/21/2016 Appointment: Haylee Piper WPtel: [address] [place] [address] 07/17 confirmed~sl FOLLOW UP 07/21/2016 Patient Education: Patient Medication Summary Completed 07/21/2016 Visit Plan: GAUTAM Paniagua---wear esteban ssing through weekend and then take off to leave open to air 05/30/2016 Appointment: Haylee Piper WPtel: [address] [place] [address] Consult 05/30/2016 Patient Education: Patient Medication Summary [...] after tdap updated 05/29/2016 Appointment: Susie Paniagua [address] [place] [address] ACUTE ILLNESS 05/29/2016 Patient Education: Patient Medication Summary Completed 05/29/2016 Visit Plan: Continue current meds Patien t sees Dr. Eugene next week to see if would be surgical candidate 03/18/2016 Appointment: Haylee Piper WPtel: [facility]note 3[facility] 03/17 confirmed ~sl FOLLOW UP 03/18/2016 Patient Education: Patient Medication Summary Completed 03/18/2016 Visit Plan: Continue to hold atenolol an d monitor BP Take 1/2 of atenolol if BP greater then 150/90 8-10 oz of gatorade daily for next week and hydrate unless develops edema BP check 1week 10/18/2015 Appointment: Haylee Piper WPtel: [address] [place], [place] [phone] [place] FOLLOW UP 10/18/2015 Patient Education: Patient Medication Summary Completed 10/18/2015 Visit Plan: Hold atenolol Hydrate, rest Refuses hospital but agrees will go to [facility] if worsens Recheck tomorrow Check CBC, CMP, CRP now 10/17/2015 Appointment: Haylee Piper WPtel: [address] [place], [place] [phone] WORK IN 10/17/2015 Patient Education: Patient Medication Summary Completed 10/17/2015 Visit Plan: Check CT scan of lungs November 18 Change proair to ventolin Fwup with Dr. Kilgore at end of month 10/10/2015 Appointment: Haylee Piper WPtel: [address] [place], [place] [phone] [place] 10/09 confirmed~lb FOLLOW UP 10/10/2015 Patient Education: Patient Medication Summary Completed 10/10/2015 Visit Plan: Obtain CT scan of chest resu lts Discussed that will likely need repeat scan pending reviewing above results but we will notify him once CT scan results reviewed 08/30/2015 Appointment: Haylee Piper WPtel: [address] [place], [place] [phone] [place] 08/29 appt confirmed cn Hospital Follow Up 08/30 Patient Education: Patient Medication Summary Completed 08/30/2015 Visit Plan: Continue dexilant and add Pe pcid 40mg q HS Discussed may need EGD Update thyroid US Flu shot given 06/25/2015 Appointment: Haylee Piper WPtel: [address] [place], [place] [phone] 06/22 confirmed ~sl FOLLOW UP 06/25/2015 Patient Education: Patient Medication Summary Completed 06/25/2015 Visit Plan: Continue Cymbalta at 120 mg PO daily Follow-up in 6 weeks Encouraged finding interest in a hobbie such as reading 04/25/2015 Appointment: Kat [place] WPtel: [address] [place] [address] FOLLOW UP 04/25/2015 Patient Education: Patient Medication Summary Completed 04/25/2015 Visit Plan: Increase Cymbalta to 120 mg PO daily Follow-up [place] [address] Piper 04/11/2015 Appointment: Kat [place] WPtel: [address] [place] [address] 04/09/2015 spoke with patient to make appointment FOLLOW UP 04/11/2015 Patient Education: Patient Medication Summary Completed 04/11/2015 Visit Plan: Continue Cymbalta, Neurontin Look out for tremor Discussed B12 supplement Given sample of Metanx 02/27/2015 Appointment: Haylee Piper WPtel: [address] [place] [address] 02/26 appt confirmed cn FOLLOW UP 02/28/20 [...] tremors persist 02/08/2015 Appointment: Haylee Piper WPtel: [address] [place] [address] FOLLOW UP 02/08/2015 Patient Education: Patient Medication Summary Completed 02/08/2015 Appointment: Haylee Piper WPtel: [address] [place] [address] [place] NEW PATIENT 01/18/2015 Patient Education: Patient Medication Summary Completed 01/18/2015 Patient Education: [facility] - Saving [employer] - Cymbalta - 18+ - Dynamic Portal ID Completed 01/18/2015 Referral: Atiya Vernon Jesus WPtel: [facility] [address], [id number] [place] Referral Appointment Requested Instructions Comment . [...] Refuses hospital but agrees will go to [facility] if worsens Recheck tomorrow Check CBC, CMP, [...]
--- OUTSIDE RECORDS SUMMARY | 2020-02-05 15:04 | XMS REPORT | CCD ---
Author Author Andrea Piper D.O. [facility] Organization [facility] Address [address] [place] [address] Phone Care Team Providers Care Excel Vba Developer Name Role Phone Haylee Piper D.O. PP Unavailable CCM Unavailable Summary Purpose Interface Exchange Insurance Providers Payer name Policy type / Coverage type Covered green party ID Effective Begin Date Effective End Date WPS MEDICARE PART B [place] Medicare Part B [id number] Unknown Bankers May Medicare Part B [id number] Unknown Family history Mother Diagnosis Age At Onset Breast cancer Unknown Brother Diagnosis Age At Onset Hypertension Unknown Grandfather Diagnosis Age At Onset Myocardial infarction Unknown Social History Social History Element Codes Description Effective Dates Tobacco history SNOMED CT: 943444264 Never smoker 05/18/2015 Marital status Unknown 01/18/2015 Number of children Unknown 3 01/18/2015 Employment Unknown Retired 01/18/[address]: 115549895 Never drinks alcohol 2014 Has the patient [...] R42 10/17/2015 Active 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: [...] Fill Instructions escitalopram 10 mg tablet RxNorm: 678840 1 Tablet(s) Or al QPM for mood--replaces duloxetine 01/04/2020 02/03/2020 Active Zofran 8 mg tablet RxNorm: 059200 1 Tablet(s) Oral as needed fo r nausea 01/04/2020 No Stop Date Active Wellbutrin XL 150 mg 24 hr tablet, extended release RxNorm: 589350 1 Tablet(s) Oral QAM replaces duloxetine 01/04/2020 02/03/2020 Active baclofen 20 mg tablet RxNorm: 332541 TAKE ONE TABLET BY MOUTH EVERY NIGHT AT BEDTIME FOR MUSCLE SPASMS AND TAKE ONE TABLET EVERY MORNING NEEDED 01/02/2020 No Stop Date Active Dexilant 60 mg capsule, delayed release RxNorm: 086647 TAKE ONE CAPSULE BY MOUTH DAILY 12/14/2019 No Stop Date Active Cymbalta 60 mg capsule,delayed release RxNorm: 574118 2 Capsule (s) Oral QD 10/24/2019 01/03/2020 Inactive Dexilant 60 mg capsule, delayed release RxNorm: 956226 TAKE ONE CAPSULE BY MOUTH DAILY 09/19/2019 2019 Inactive Lyrica 50 mg capsule RxNorm: 076611 2 Capsule(s) Oral Q PM for 3 days then 1 po q PM for 3 days then stop 09/05/2019 10/09/2019 Inactive Lyrica 150 mg capsule RxNorm: 342239 1 Capsule(s) Oral every ni ght at bedtime 09/05/2019 09/05/2019 Inactive metoprolol succinate ER 100 mg tablet,extended release 24 hr RxNorm: 511061 1 Tablet(s) Oral QD 08/29/2019 11/27/2019 Inactive hydrocodone 7.5 mg-acetaminophen 325 mg tablet RxNorm: 40731 5 1 Tablet(s) Oral Q4H as needed for pain 08/15/2019 08/21/2019 Inactive Lyrica 150 mg capsule RxNorm: 203263 TAKE ONE CAPSULE BY MOUTH TWICE A DAY 08/11/2019 09/04/2019 Inactive baclofen 20 mg tablet RxNorm: 626858 TAKE ONE TABLET BY MOUTH EVERY NIGHT AT BEDTIME FOR MUSCLE SPASMS AND TAKE ONE TABLET EVERY MORNING NEEDED 08/10/2019 01/01/2020 Inactive Dexilant 60 mg capsule, delayed release RxNorm: 198293 TAKE ONE CAPSULE BY MOUTH DAILY 07/19/2019 09/18/2019 Inactive Cymbalta 60 mg capsule,delayed release RxNorm: 965557 T LASHAUN TWO CAPSULES BY MOUTH DAILY 07/06/2019 10/23/2019 Inactive cyanocobalamin (vit B-12) 1,000 mcg/mL injection solution Rx Norm: 068241 1 Milliliter(s) Intramuscular every two weeks 06/02/2019 06/02/2019 Inac tive cyanocobalamin (vit B-12) 1,000 mcg/mL injection solution Rx Norm: 929570 1 Milliliter(s) Intramuscular every two weeks 05/23/2019 06/01/2019 Inac tive Dexilant 60 mg capsule, delayed release RxNorm: 605561 TAKE ONE CAPSULE BY MOUTH DAILY 05/19/2019 07/17/2019 Inactive Lyrica 150 mg capsule RxNorm: 481516 1 Capsule(s) PO BID 05/11/2019 1 10/09/2018 Inactive Cymbalta 60 mg capsule,delayed release RxNorm: 031761 2 Capsule (s) PO QD 04/04/2019 07/02/2019 Inactive cyanocobalamin (vit B-12) 1,000 mcg/mL injection solution Rx Norm: 013635 1 Milliliter(s) IM QW 03/17/2019 05/22/2019 Inactive Lyrica 150 mg capsule RxNorm: 755635 TAKE ONE CAPSULE BY MOUTH TWICE A DAY 03/08/2019 03/09/2019 Inactive cyanocobalamin (vit B-12) 1,000 mcg/mL injection solution Rx Norm: 667646 1 Milliliter(s) IM QW 02/16/2019 03/16/2019 Inactive Lyrica 150 mg capsule RxNorm: 735527 TAKE ONE CAPSULE BY MOUTH TWICE A DAY 02/08/2019 03/08/2019 Inactive Dexilant 60 mg capsule, delayed release RxNorm: 331718 1 Capsul e(s) PO QD 02/08/2019 05/08/2019 Inactive Dexilant 60 mg capsule, delayed release RxNorm: 622057 TAKE ONE CAPSULE BY MOUTH DAILY 01/03/2019 02/08/2019 Inactive Lyrica 150 mg capsule RxNorm: 409189 1 Capsule(s) PO BID 01/03/2019 0 02/08/2019 Inactive Cymbalta 60 mg capsule,delayed release RxNorm: 212835 T LASHAUN TWO CAPSULES BY MOUTH DAILY 12/27/2018 04/04/2019 Inactive Dexilant 60 mg capsule, delayed release RxNorm: 475152 TAKE ONE CAPSULE BY MOUTH DAILY 12/07/2018 01/02/2019 Inactive prednisone 20 mg tablet RxNorm: 736578 Take 3 tabs by m outh for 3 days, then 2 tabs by mouth for 3 days, then 1 tab by mouth for 3 days Take 2 tabs for 10/29/2018 11/07/2018 Inactive doxycycline hyclate 100 mg tablet RxNorm: 7277435 1 Tablet(s) PO BI D 10/26/2018 11/04/2018 Inactive doxycycline hyclate 100 mg tablet RxNorm: 4003839 1 Tablet(s) PO BI D 10/26/2018 10/25/2018 Inactive Dexilant 60 mg capsule, delayed release RxNorm: 113577 TAKE ONE CAPSULE BY MOUTH DAILY 10/04/2018 12/06/2018 Inactive Lyrica 150 mg capsule RxNorm: 017051 TAKE ONE CAPSULE BY MOUTH TWICE A DAY 10/04/2018 11/02/2018 Inactive baclofen 20 mg tablet RxNorm: 762678 1 Tablet(s) PO QHS for muscle spasm and q AM prn 08/11/2018 08/09/2019 Inactive Lyrica 150 mg capsule RxNorm: 104447 1 Capsule(s) PO BID 08/06/2018 0 10/04/2018 Inactive Dexilant 60 mg capsule, delayed release RxNorm: 876809 TAKE ONE CAPSULE BY MOUTH DAILY 07/07/2018 10/03/2018 Inactive Cymbalta 60 mg capsule,delayed release RxNorm: 082811 T LASHAUN TWO CAPSULES BY MOUTH DAILY 06/28/2018 12/24/2018 Inactive prednisone 20 mg tablet RxNorm: 812808 1 Tablet(s) PO BID 06/17/2018 06/21/2018 Inactive Zithromax Z-Osman 250 mg tablet RxNorm: 552951 Tablet(s) PO take as directed 06/17/2018 08/10/2018 Inactive Flagyl 500 mg tablet RxNorm: 639523 1 Tablet(s) PO BID 06/11/2018 Inactive Cipro 250 mg tablet RxNorm: 292436 1 Tablet(s) PO BID 06/11/201805/31 Inactive atenolol 50 mg tablet RxNorm: 414198 1 Tablet(s) PO BID 05/31/2018 Inactive albuterol sulfate 2.5 mg/3 mL (0.083 %) solution for n ebulization RxNorm: 204865 3 Milliliter(s) INH Q4H as needed 05/17/2018 No Stop Date Active Zithromax Z-Osman 250 mg tablet RxNorm: 431438 Tablet(s) PO take as directed 05/17/2018 06/10/2018 Inactive Lyrica 150 mg capsule RxNorm: 728345 1 Capsule(s) PO BID 05/12/2018 1 10/07/2017 Inactive hydrocodone 7.5 mg-acetaminophen 325 mg tablet RxNorm: 38142 5 1 Tablet(s) PO Q4H as needed for pain 05/12/2018 05/18/2018 Inactive Cymbalta 60 mg capsule,delayed release RxNorm: 975222 T LASHAUN TWO CAPSULES BY MOUTH DAILY 04/01/2018 04/04/2018 Inactive Lyrica 100 mg capsule RxNorm: 094971 Capsule(s) TAKE ON E CAPSULE BY MOUTH TWICE A DAY 03/01/2018 05/11/2018 Inactive Dexilant 60 mg capsule, delayed release RxNorm: 004958 1 Capsul e(s) PO QD 01/06/2018 07/04/2018 Inactive atenolol 50 mg tablet RxNorm: 444898 1 Tablet(s) PO BID 12/30/2017 Inactive Lyrica 100 mg capsule RxNorm: 561028 Capsule(s) TAKE ON E CAPSULE BY MOUTH TWICE A DAY 12/30/2017 02/26/2018 Inactive Cymbalta 60 mg capsule,delayed release RxNorm: 727273 2 Capsule (s) PO QD 12/30/2017 03/29/2018 Inactive ProAir HFA 90 mcg/actuation aerosol inhaler RxNorm: 962657 INHALE 2 PUFFS FOUR TIMES A DAY 11/12/2017 01/25/2018 Inactive Cymbalta 60 mg capsule,delayed release RxNorm: 686274 2 Capsule (s) PO QD 10/06/2017 12/30/2017 Inactive Lyrica 100 mg capsule RxNorm: 969513 TAKE ONE CAPSULE BY MOUTH TWICE A DAY 09/28/2017 10/26/2017 Inactive Lyrica 100 mg capsule RxNorm: 487627 1 Capsule(s) PO BID 08/26/2017 0 09/28/2017 Inactive Zithromax Z-Osman 250 mg tablet RxNorm: 677149 Tablet(s) PO As Di rected 08/07/2017 05/11/2018 Inactive Diflucan 150 mg tablet RxNorm: 222424 1 Tablet(s) PO Q72H 07/20/2017 05/11/2018 Inactive nystatin 100,000 unit/mL oral suspension RxNorm: 961831 5 Milliliter(s) PO QID swish and spit for 2 weeks 07/07/2017 07/20/2017 Inactive fluconazole 100 mg tablet RxNorm: 800497 1 Tablet(s) PO QD 07/07/20 07/13/2017 Inactive Dexilant 60 mg capsule, delayed release RxNorm: 689818 1 Capsul e(s) PO QD 07/01/2017 01/06/2018 Inactive Cymbalta 60 mg capsule,delayed release RxNorm: 102558 2 Capsule (s) PO QD 07/01/2017 09/28/2017 Inactive atenolol 50 mg tablet RxNorm: 758411 1 Tablet(s) PO BID 06/17/2017 Inactive atenolol 50 mg tablet RxNorm: 704798 1 Tablet(s) PO BID 06/17/2017 Inactive atenolol 25 mg tablet RxNorm: 130441 1 Tablet(s) PO QD 06/16/2017 Inactive Cipro 250 mg tablet RxNorm: 315269 1 Tablet(s) PO BID 05/26/201705/02 Inactive Cipro 250 mg tablet RxNorm: 345555 1 Tablet(s) PO BID 05/26/201710/2016 Inactive Cymbalta 60 mg capsule,delayed release RxNorm: 119994 2 Capsule (s) PO QD 04/02/2017 07/01/2017 Inactive Zanaflex 4 mg tablet RxNorm: 868577 1 Tablet(s) PO BID as neede d for spasm 03/18/2017 05/11/2018 Inactive methocarbamol 750 mg tablet RxNorm: 684820 1 Tablet(s) PO TID as needed for muscle spasm 03/17/2017 03/17/2017 Inactive Cymbalta 60 mg capsule,delayed release RxNorm: 617115 T LASHAUN TWO CAPSULES BY MOUTH DAILY 01/01/2017 04/02/2017 Inactive atenolol 25 mg tablet RxNorm: 967633 1 Tablet(s) PO QD 01/01/2017 Inactive Dexilant 60 mg capsule, delayed release RxNorm: 757116 1 Capsul e(s) PO QD 12/24/2016 07/01/2017 Inactive prednisone 20 mg tablet RxNorm: 541703 1 Tablet(s) PO BID 12/17/2016 12/23/2016 Inactive doxycycline hyclate 100 mg capsule RxNorm: 4802015 1 Capsule(s) PO BID 12/11/2016 12/20/2016 Inactive doxycycline hyclate 100 mg capsule RxNorm: 7746421 1 Capsule(s) PO BID 12/11/2016 12/10/2016 Inactive albuterol sulfate 2.5 mg/3 mL (0.083 %) solution for n ebulization RxNorm: 600855 3 Milliliter(s) INH Q4H as needed 12/11/2016 05/16/2018 Inactiv e guaifenesin 400 mg tablet RxNorm: 183865 1 Tablet(s) PO QID 017 05/11/2018 Inactive Tessalon Perles 100 mg capsule RxNorm: 335588 1 Capsule (s) PO TID as needed for cough 12/10/2016 12/31/2016 Inactive ProAir HFA 90 mcg/actuation aerosol inhaler RxNorm: 755539 INHALE 2 PUFFS FOUR TIMES A DAY 08/12/2016 11/12/2017 Inactive Dexilant 60 mg capsule, delayed release RxNorm: 282996 TAKE ONE CAPSULE BY MOUTH DAILY 06/16/2016 12/24/2016 Inactive Cymbalta 60 mg capsule,delayed release RxNorm: 373807 2 Capsule (s) PO QD 06/16/2016 12/12/2016 Inactive zolpidem 10 mg tablet RxNorm: 436412 TAKE ONE TABLET BY MOUTH A T BEDTIME 03/10/2016 05/28/2016 Inactive Dexilant 60 mg capsule, delayed release RxNorm: 190662 TAKE ONE CAPSULE BY MOUTH DAILY 02/06/2016 06/04/2016 Inactive Cymbalta 60 mg capsule,delayed release RxNorm: 552437 2 Capsule (s) PO QD 11/19/2015 05/16/2016 Inactive zolpidem 10 mg tablet RxNorm: 387159 TAKE ONE TABLET BY MOUTH A T BEDTIME 10/02/2015 03/10/2016 Inactive Dexilant 60 mg capsule, delayed release RxNorm: 996436 TAKE ONE CAPSULE BY MOUTH DAILY 08/28/2015 01/24/2016 Inactive ProAir HFA 90 mcg/actuation aerosol inhaler RxNorm: 990553 2 Pu ff(s) INH QID 06/25/2015 10/22/2015 Inactive famotidine 40 mg tablet RxNorm: 928170 1 Tablet(s) PO QHS 06/25/2015 10/09/2015 Inactive Dexilant 60 mg capsule, delayed release RxNorm: 727999 1 Capsul e(s) PO QD 06/07/2015 08/27/2015 Inactive zolpidem 10 mg tablet RxNorm: 781479 TAKE ONE TABLET BY MOUTH EVERY NIGHT AT BEDTIME 06/01/2015 10/03/2015 Inactive Cymbalta 60 mg capsule,delayed release RxNorm: 974011 2 Capsule (s) PO QD 05/10/2015 11/19/2015 Inactive Cymbalta 60 mg capsule,delayed release RxNorm: 864523 2 Capsule (s) PO QD 04/11/2015 05/10/2015 Inactive zolpidem 10 mg tablet RxNorm: 125868 TAKE ONE TABLET BY MOUTH A T BEDTIME 04/06/2015 06/01/2015 Inactive zolpidem 10 mg tablet RxNorm: 441613 TAKE ONE TABLET BY MOUTH A T BEDTIME 03/05/2015 04/06/2015 Inactive zolpidem 10 mg tablet RxNorm: 255330 1 Tablet(s) PO QHS as need ed for sleep 02/27/2015 03/04/2015 Inactive Cymbalta 60 mg capsule,delayed release RxNorm: 006809 1 Capsule (s) PO QD 01/18/2015 04/10/2015 Inactive [AttnRPh: Saving clare ly/adjudicate RxGRP:[id number] RxBIN:[id number] RxPCN: ID#:[id number]] Trazadone 75mg Tablet RxNorm: 1-2 Tablet(s) PO QHS as ne eded for sleep 01/18/2015 02/26/2015 Inactive Singulair 10 mg tablet RxNorm: 282985 1 Tablet(s) PO QD No Start Date Active Tylenol Extra Strength 500 mg tablet RxNorm: 397506 Tablet(s) P O as needed No Start Date Active methocarbamol 750 mg tablet RxNorm: 012269 Tablet(s) PO as needed N o Start Date Active Vitamin D3 1,000 unit capsule RxNorm: 817857 1 Capsule(s) PO BID No Start Date Active aspirin 81 mg tablet RxNorm: 475266 1 Tablet(s) PO QD No Start Date Active Symbicort 160 mcg-4.5 mcg/actuation HFA aerosol inhaler RxNo rm: 6189279 2 Puff(s) INH BID No Start Date Active atorvastatin 40 mg tablet RxNorm: 371532 1 Tablet(s) PO QD No Start D ate Active Trazadone 100 100mg mg Tablet RxNorm: 1-2 Tablet(s) PO QHS No Start Date 01/17/2015 Inactive Fish Oil 1,000 mg capsule RxNorm: 1 Capsule(s) PO QD No Start Date 05/16/2018 Inactive multivitamin with iron tablet RxNorm: 1 Tablet(s) PO QD No Sta rt Date 05/16/2018 Inactive Spiriva Respimat inhalation RxNorm: 053595 inhalation No Start Date 1 09/05/2016 Inactive atenolol 25 mg tablet RxNorm: 051444 1 Tablet(s) PO BID No Start Da te 12/31/2016 Inactive Spiriva Respimat 2.5 mcg/actuation solution for inhalation R xNorm: 6356746 2 Puff(s) INH QD No Start Date 05/11/2018 Inactive Zithromax Z-Osman 250 mg tablet RxNorm: 328313 Tablet(s) PO As Di rected No Start Date 08/06/2017 Inactive Zanaflex 4 mg tablet RxNorm: 364913 1 Tablet(s) PO BID as neede d for spasm No Start Date 03/17/2017 Inactive gabapentin 800 mg tablet RxNorm: 580873 1 Tablet(s) PO TID No Start Date 03/17/2016 Inactive losartan 100 mg tablet RxNorm: 761106 1 Tablet(s) PO QD No Start Da te 12/31/2016 Inactive cyclobenzaprine 10 mg tablet RxNorm: 414509 1 Tablet(s) PO TID as needed for muscle spasm No Start Date 05/11/2018 Inactive potassium chloride ER 10 mEq tablet,extended release RxNorm: 091620 Tablet(s) PO as needed No Start Date 01/04/2020 Inactive gabapentin 300 mg capsule RxNorm: 176425 1 Capsule(s) PO TID No Sta rt Date 10/09/2015 Inactive furosemide 40 mg tablet RxNorm: 303969 Tablet(s) PO as needed No St art Date 01/04/2020 Inactive ferrous sulfate 325 mg (65 mg iron) tablet RxNorm: 608248 1 Tab let(s) PO QD No Start Date 09/04/2019 Inactive Dexilant 60 mg capsule, delayed release RxNorm: 038396 1 Capsul e(s) PO QD No Start Date 06/06/2015 Inactive amitriptyline 25 mg tablet RxNorm: 149071 1-2 Tablet(s) PO QHS as needed for sleep --replaces ambien No Start Date 07/20/2016 Inactive hydrocodone 7.5 mg-acetaminophen 325 mg tablet RxNorm: 62227 5 1 Tablet(s) PO TID No Start Date 05/11/2018 Inactive Lyrica 75 mg capsule RxNorm: 880119 1 Capsule(s) PO BID No Start Da te 05/11/2018 Inactive gabapentin 300 mg capsule RxNorm: 951737 1 Capsule(s) PO QHS No Sta rt Date 02/07/2015 Inactive Lyrica 50 mg capsule RxNorm: 786935 1 Capsule(s) PO BID No Start Da te 07/20/2016 Inactive zolpidem 10 mg tablet RxNorm: 372359 1 Tablet(s) PO QHS No Start Da te 02/07/2015 Inactive citalopram 40 mg tablet RxNorm: 256159 1 Tablet(s) PO QD No Start D ate 01/17/2015 Inactive hydrocodone 7.5 mg-acetaminophen 325 mg tablet RxNorm: 76182 5 1 Tablet(s) PO Q6H as needed for pain No Start Date 03/17/2016 Inactive losartan 100 mg tablet RxNorm: 919105 1/2 Tablet(s) PO QD No Start Date 05/18/2017 Inactive cyanocobalamin (vit B-12) 1,000 mcg/mL injection solution Rx Norm: 137621 1 Milliliter(s) IM QW No Start Date 02/15/2019 Inactive ProAir HFA 90 mcg/actuation aerosol inhaler RxNorm: 6733909 2 Pu ff(s) INH TID No Start Date 06/24/2015 Inactive methocarbamol 750 mg tablet RxNorm: 229405 1 Tablet(s) PO TID as needed for [...] Item Code Result Date S ervice Location [facility] [id number] Neutrophil 27 % 10/11/2019 Unknown [facility] [id number] BAND 0 % 10/11/2019 Unknown [facility] [id number] Lymphocyte 59 % 10/11/2019 Unknown [facility] [id number] Monocyte 13 % 10/11/2019 Unknown [facility] [id number] Eosinophil 1 % 10/11/2019 Unknown [facility] [id number] Basophil 0 % 10/11/2019 Unknown [facility] [id number] Platelet Est Decreased 10/11/2019 Unkno wn [facility] [id number] Large Plts Present 10/11/2019 Unknown COMPLETE BLOOD COUNT [id number] WBC 2.4 10e9/L 10/10/19 20 Unknown COMPLETE BLOOD COUNT [id number] RBC 3.15 10e12/L 2019 Unknown COMPLETE BLOOD COUNT [id number] HEMOGLOBIN 11.4 g/dL 10/10/19 20 Unknown COMPLETE BLOOD COUNT [id number] HEMATOCRIT 35.0 % 10/10/19 20 Unknown COMPLETE BLOOD COUNT [id number] MCV 111.1 fL 0 Unknown COMPLETE BLOOD COUNT [id number] MCH 36.2 pg 0 Unknown COMPLETE BLOOD COUNT [id number] MCHC 32.6 g/dL 0 Unknown COMPLETE BLOOD COUNT [id number] PLATELET COUNT 18 10e9/L 10/01 Unknown COMPLETE BLOOD COUNT [id number] Mean Plt Volume 11.3 fL 05/2020 Unknown COMPLETE BLOOD COUNT [id number] Neut Auto 27.9 % 0 Unknown COMPLETE BLOOD COUNT [id number] Lymph Auto 58.5 % 10/10/19 20 Unknown COMPLETE BLOOD COUNT [id number] [place] Auto 12.0 % 0 Unknown COMPLETE BLOOD COUNT [id number] Eos Auto 0.4 % 0 Unknown COMPLETE BLOOD COUNT [id number] RDW 14.0 % 0 Unknown COMPLETE BLOOD COUNT [id number] Baso Auto 1.2 % 0 Unknown COMPLETE BLOOD COUNT [id number] Neutrophil Abs 0.67 10e9/L Unknown COMPLETE BLOOD COUNT [id number] Lymphocyte Abs 1.40 10e9/L Unknown COMPLETE BLOOD COUNT [id number] Monocyte Abs 0.29 10e9/L 10/01 Unknown COMPLETE BLOOD COUNT [id number] Eosinophil Abs 0.01 10e9/L Unknown COMPLETE BLOOD COUNT [id number] RDW-SD 54.2 fL 0 Unknown COMPLETE BLOOD COUNT [id number] Basophil Abs 0.03 10e9/L 10/01 Unknown NCDF [id number] Neutrophil 32 % 08/30/2019 Unknown NCDF 1065141 BAND 4 % 08/30/2019 Unknown NCDF [id number] Lymphocyte 43 % 08/30/2019 Unknown NCDF [id number] Monocyte 20 % 08/30/2019 Unknown NCDF [id number] Eosinophil 1 % 08/30/2019 Unknown NCDF [id number] Basophil 0 % 08/30/2019 Unknown NCDF [id number] Platelet Est Decreased 08/30/2019 Unkno wn VITAMIN B 12 29604 VITAMIN B12 716 pg/mL 08/29/2019 Unkn own COMPLETE BLOOD COUNT [id number] WBC 3.0 10e9/L 08/29/20 19 Unknown COMPLETE BLOOD COUNT [id number] RBC 3.19 10e12/L 2018 Unknown COMPLETE BLOOD COUNT [id number] HEMOGLOBIN 11.5 g/dL 08/29/20 19 Unknown COMPLETE BLOOD COUNT [id number] HEMATOCRIT 35.6 % 08/29/20 19 Unknown COMPLETE BLOOD COUNT [id number] MCV 111.6 fL 9 Unknown COMPLETE BLOOD COUNT [id number] MCH 36.1 pg 9 Unknown COMPLETE BLOOD COUNT [id number] MCHC 32.3 g/dL 9 Unknown COMPLETE BLOOD COUNT [id number] PLATELET COUNT 79 10e9/L 08/02 Unknown COMPLETE BLOOD COUNT [id number] Mean Plt Volume 11.1 fL Unknown COMPLETE BLOOD COUNT [id number] Neut Auto 32.7 % 9 Unknown COMPLETE BLOOD COUNT [id number] Lymph Auto 39.6 % 08/29/20 19 Unknown COMPLETE BLOOD COUNT [id number] [place] Auto 24.4 % 9 Unknown COMPLETE BLOOD COUNT [id number] RDW 14.0 % 9 Unknown COMPLETE BLOOD COUNT [id number] Eos Auto 2.0 % 9 Unknown COMPLETE BLOOD COUNT [id number] Baso Auto 1.3 % 9 Unknown COMPLETE BLOOD COUNT [id number] Neutrophil Abs 0.98 10e9/L Unknown COMPLETE BLOOD COUNT [id number] Lymphocyte Abs 1.19 10e9/L Unknown COMPLETE BLOOD COUNT [id number] Monocyte Abs 0.73 10e9/L 08/02 Unknown COMPLETE BLOOD COUNT [id number] Eosinophil Abs 0.06 10e9/L Unknown COMPLETE BLOOD COUNT [id number] RDW-SD 54.5 fL 9 Unknown COMPLETE BLOOD COUNT [id number] Basophil Abs 0.04 10e9/L 08/02 Unknown NCDF 9272529 Neutrophil 37 % 05/24/2019 Unknown NCDF 6771449 BAND 5 % 05/24/2019 Unknown NCDF 2964154 Lymphocyte 34 % 05/24/2019 Unknown NCDF 9592902 Monocyte 19 % 05/24/2019 Unknown NCDF 8918246 Eosinophil 3 % 05/24/2019 Unknown NCDF [id number] Basophil 2 % 05/24/2019 Unknown NCDF [id number] Platelet Est Adequate 05/24/2019 Unknow n VITAMIN B 12 84382 VITAMIN B12 788 pg/mL 05/23/2019 Unkn own IRON 80712 Iron 152 ug/dL 05/23/2019 Unknown COMPLETE BLOOD COUNT [id number] WBC 3.9 10e9/L 05/23/20 19 Unknown COMPLETE BLOOD COUNT [id number] RBC 3.61 10e12/L 2018 Unknown COMPLETE BLOOD COUNT [id number] HEMOGLOBIN 12.5 g/dL 05/23/20 19 Unknown COMPLETE BLOOD COUNT [id number] HEMATOCRIT 38.2 % 05/23/20 19 Unknown COMPLETE BLOOD COUNT [id number] MCV 105.8 fL 9 Unknown COMPLETE BLOOD COUNT [id number] MCH 34.6 pg 9 Unknown COMPLETE BLOOD COUNT [id number] MCHC 32.7 g/dL 9 Unknown COMPLETE BLOOD COUNT [id number] PLATELET COUNT 157 10e9/L Unknown COMPLETE BLOOD COUNT [id number] Mean Plt Volume 10.4 fL Unknown COMPLETE BLOOD COUNT [id number] Neut Auto 35.6 % 9 Unknown COMPLETE BLOOD COUNT [id number] Lymph Auto 33.2 % 05/23/20 19 Unknown COMPLETE BLOOD COUNT [id number] [place] Auto 26.6 % 9 Unknown COMPLETE BLOOD COUNT [id number] RDW 14.1 % 9 Unknown COMPLETE BLOOD COUNT [id number] Eos Auto 1.8 % 9 Unknown COMPLETE BLOOD COUNT [id number] Baso Auto 2.8 % 9 Unknown COMPLETE BLOOD COUNT [id number] Neutrophil Abs 1.39 10e9/L Unknown COMPLETE BLOOD COUNT 5000040 Lymphocyte Abs 1.29 10e9/L Unknown COMPLETE BLOOD COUNT [id number] Monocyte Abs 1.04 10e9/L 05/02 Unknown COMPLETE BLOOD COUNT [id number] Eosinophil Abs 0.07 10e9/L Unknown COMPLETE BLOOD COUNT [id number] Basophil Abs 0.11 10e9/L 05/02 Unknown COMPLETE BLOOD COUNT [id number] RDW-SD 53.5 fL 9 Unknown COMPLETE BLOOD COUNT [id number] WBC 5.4 10e9/L 06/11/20 18 Unknown COMPLETE BLOOD COUNT [id number] RBC 4.05 10e12/L 2017 Unknown COMPLETE BLOOD COUNT [id number] HEMOGLOBIN 13.5 g/dL 06/11/20 18 Unknown COMPLETE BLOOD COUNT [id number] HEMATOCRIT 41.3 % 06/11/20 18 Unknown COMPLETE BLOOD COUNT [id number] MCV 102.0 fL 8 Unknown COMPLETE BLOOD COUNT [id number] MCH 33.3 pg 8 Unknown COMPLETE BLOOD COUNT [id number] MCHC 32.7 g/dL 8 Unknown COMPLETE BLOOD COUNT [id number] PLATELET COUNT 210 10e9/L 07/2018 Unknown COMPLETE BLOOD COUNT [id number] Mean Plt Volume 10.0 fL 07/2018 Unknown COMPLETE BLOOD COUNT [id number] Neut Auto 35.2 % 8 Unknown COMPLETE BLOOD COUNT [id number] Lymph Auto 29.2 % 06/11/20 18 Unknown COMPLETE BLOOD COUNT [id number] [place] Auto 17.3 % 8 Unknown COMPLETE BLOOD COUNT 9337349 RDW 13.8 % 8 Unknown COMPLETE BLOOD COUNT 0424419 Eos Auto 16.4 % 8 Unknown COMPLETE BLOOD COUNT [id number] Baso Auto 1.9 % 8 Unknown COMPLETE BLOOD COUNT [id number] Neutrophil Abs 1.90 10e9/L Unknown COMPLETE BLOOD COUNT [id number] Lymphocyte Abs 1.58 10e9/L Unknown COMPLETE BLOOD COUNT [id number] Monocyte Abs 0.93 10e9/L 05/31 Unknown COMPLETE BLOOD COUNT [id number] Eosinophil Abs 0.89 10e9/L Unknown COMPLETE BLOOD COUNT [id number] Basophil Abs 0.10 10e9/L 05/31 Unknown COMPLETE BLOOD COUNT [id number] RDW-SD 50.2 fL 8 Unknown GFR CALC [id number] GFR Non Afr Amr >60 mL/min 06/11/2018 Un known GFR CALC [id number] GFR Afr Amr >60 mL/min 06/11/2018 Unknow n COMPREHENSIVE METABOLIC 91381 AST 15 U/L 2017 Unknown COMPREHENSIVE METABOLIC 39196 ALT 18 U/L 2017 Unknown COMPREHENSIVE METABOLIC 59578 BUN 11 mg/dL 2017 Unknown COMPREHENSIVE METABOLIC 97698 ALBUMIN 3.7 g/dL 2017 Unknown COMPREHENSIVE METABOLIC 72608 CHLORIDE 102 mmol/L 06/11 Unknown COMPREHENSIVE METABOLIC 07810 Bili Total 0.6 mg/dL 06/11 Unknown COMPREHENSIVE METABOLIC 44842 ALK PHOS 98 U/L 2017 Unknown COMPREHENSIVE METABOLIC 49509 SODIUM 139 mmol/L 06/11 Unknown COMPREHENSIVE METABOLIC 98480 CREATININE 0.89 mg/dL 05/31 Unknown COMPREHENSIVE METABOLIC 89680 CALCIUM 8.7 mg/dL 2017 Unknown COMPREHENSIVE METABOLIC 27442 POTASSIUM 3.9 mmol/L 06/11 Unknown COMPREHENSIVE METABOLIC 27457 Total Protein 6.7 g/dL Unknown COMPREHENSIVE METABOLIC 36943 Glucose 112 mg/dL 2017 Unknown COMPREHENSIVE METABOLIC 07036 Bicarbonate 35 mmol/L 05/31 Unknown COMPREHENSIVE METABOLIC 24335 AGAP 2 mmol/L 2017 Unknown COMPLETE BLOOD COUNT [id number] WBC 7.4 10e9/L 10/17/19 16 Unknown COMPLETE BLOOD COUNT [id number] RBC 4.42 10e12/L 2015 Unknown COMPLETE BLOOD COUNT [id number] HGB 13.8 g/dL 6 Unknown COMPLETE BLOOD COUNT [id number] HCT DET 40.8 % 6 Unknown COMPLETE BLOOD COUNT [id number] MCV 92.3 fL 6 Unknown COMPLETE BLOOD COUNT [id number] MCH 31.2 pg 6 Unknown COMPLETE BLOOD COUNT [id number] MCHC 33.8 g/dL 6 Unknown COMPLETE BLOOD COUNT [id number] PLT 247 10e9/L 10/17/19 16 Unknown COMPLETE BLOOD COUNT 7995100 MPV 9.3 fL 6 Unknown COMPLETE BLOOD COUNT [id number] YANNICK % 63.0 % 6 Unknown COMPLETE BLOOD COUNT [id number] LY % 19.2 % 6 Unknown COMPLETE BLOOD COUNT [id number] MON % 15.8 % 6 Unknown COMPLETE BLOOD COUNT [id number] EOS % 1.1 % 6 Unknown COMPLETE BLOOD COUNT [id number] BASO % 0.9 % 6 Unknown COMPLETE BLOOD COUNT [id number] RDW 13.7 % 6 Unknown COMPLETE BLOOD COUNT [id number] ABS YANNICK 4.66 10e9/L 016 Unknown COMPLETE BLOOD COUNT [id number] ABS LYMPH 1.42 10e9/L 016 Unknown COMPLETE BLOOD COUNT [id number] ABS MONO 1.17 10e9/L 016 Unknown COMPLETE BLOOD COUNT [id number] ABS EOS 0.08 10e9/L 016 Unknown COMPLETE BLOOD COUNT [id number] ABS BASO 0.07 10e9/L 016 Unknown COMPLETE BLOOD COUNT [id number] RDW-SD 44.9 fL 6 Unknown GFR CALC [id number] GFR AA 46.0L ML/MIN 10/17/2015 Unknow n GFR CALC [id number] GFR NON-AA 37.0L ML/MIN 10/17/2015 Unkno wn C-REACTIVE PROTEIN (CRP) QUANT 53949 CRP 0.5 MG/DL 10/17/2015 Unknown COMPREHENSIVE METABOLIC 82167 AST 18 U/L 2015 Unknown COMPREHENSIVE METABOLIC 10653 ALT 27 U/L 2015 Unknown COMPREHENSIVE METABOLIC 48475 BUN 38 MG/DL 2015 Unknown COMPREHENSIVE METABOLIC 62897 ALBUMIN 3.7 GM/DL 2015 Unknown COMPREHENSIVE METABOLIC 96206 CHLORIDE 100 MMOL/L 10/17 Unknown COMPREHENSIVE METABOLIC 45116 BILI TOT 0.8 MG/DL 2015 Unknown COMPREHENSIVE METABOLIC 12427 ALK PHOS 70 U/L 2015 Unknown COMPREHENSIVE METABOLIC 49595 SODIUM 137 MMOL/L 10/17 Unknown COMPREHENSIVE METABOLIC 79282 CREATININE 1.80 MG/DL 10/01 Unknown COMPREHENSIVE METABOLIC 99438 CALCIUM 8.9 MG/DL 2015 Unknown COMPREHENSIVE METABOLIC 35245 POTASSIUM 5.1 MMOL/L 10/17 Unknown COMPREHENSIVE METABOLIC 58896 PROT TOT 6.6 GM/DL 2015 Unknown COMPREHENSIVE METABOLIC 35310 Glucose 99 MG/DL 2015 Unknown COMPREHENSIVE METABOLIC 33119 BICARB 22 MMOL/L 2015 Unknown COMPREHENSIVE METABOLIC 84100 ANION GAP 15 MMOL/L 2015 Unknown Procedures Procedure Codes Date ROUTINE VENIPUNCTURE CPT-4: 70109 10/10/2019 COMPLETE CBC W/AUTO DIFF WBC CPT-4: 02264 10/10/2019 THER/PROPH/DIAG INJ SC/IM CPT-4: 12186 09/20/2019 TRIAMCINOLONE ACET INJ NOS CPT-4: J3301 09/20/2019 CEFTRIAXONE SODIUM INJECTION CPT-4: J0696 09/20/2019 THER/PROPH/DIAG INJ SC/IM CPT-4: 10955 09/20/2019 THER/PROPH/DIAG INJ SC/IM CPT-4: 38093 09/19/2019 METHYLPREDNISOLONE INJECTION CPT-4: J2930 09/19/2019 CEFTRIAXONE SODIUM INJECTION CPT-4: J0696 09/19/2019 THER/PROPH/DIAG INJ SC/IM CPT-4: 22281 09/19/2019 ROUTINE VENIPUNCTURE CPT-4: 83773 08/29/2019 COMPLETE CBC W/AUTO DIFF WBC CPT-4: 35986 08/29/2019 VITAMIN B-12 CPT-4: 06232 08/29/2019 THER/PROPH/DIAG INJ SC/IM CPT-4: 92862 08/29/2019 THER/PROPH/DIAG INJ SC/IM CPT-4: 65136 08/15/2019 THER/PROPH/DIAG INJ SC/IM CPT-4: 04998 08/01/2019 THER/PROPH/DIAG INJ SC/IM CPT-4: 43599 07/18/2019 THER/PROPH/DIAG INJ SC/IM CPT-4: 20299 07/04/2019 THER/PROPH/DIAG INJ SC/IM CPT-4: 01088 06/20/2019 FLU VACC PRSV FREE INC ANTIG 65 AND OLDER CPT-4: 67969 06/06/2019 THER/PROPH/DIAG INJ SC/IM CPT-4: 16670 06/06/2019 FLU VACC PRSV FREE INC ANTIG 65 AND OLDER CPT-4: 21032 06/06/2019 PNEUMOCOCCAL VACC 23 GAIL IM CPT-4: 52042 06/06/2019 ADMIN INFLUENZA VIRUS VAC CPT-4: G0008 06/06/2019 ADMIN PNEUMOCOCCAL VACCINE CPT-4: G0009 06/06/2019 ROUTINE VENIPUNCTURE CPT-4: 73791 05/23/2019 COMPLETE CBC W/AUTO DIFF WBC CPT-4: 03038 05/23/2019 ASSAY OF IRON CPT-4: 56117 05/23/2019 VITAMIN B-12 CPT-4: 75604 05/23/2019 THER/PROPH/DIAG INJ SC/IM CPT-4: 13482 05/18/2019 THER/PROPH/DIAG INJ SC/IM CPT-4: 88538 05/04/2019 THER/PROPH/DIAG INJ SC/IM CPT-4: 17670 04/27/2019 THER/PROPH/DIAG INJ SC/IM CPT-4: 96185 04/20/2019 THER/PROPH/DIAG INJ SC/IM CPT-4: 72841 04/06/2019 THER/PROPH/DIAG INJ SC/IM CPT-4: 00268 03/23/2019 VITAMIN B12 INJECTION CPT-4: J3420 03/23/2019 THER/PROPH/DIAG INJ SC/IM CPT-4: 77598 03/14/2019 THER/PROPH/DIAG INJ SC/IM CPT-4: 88776 03/07/2019 THER/PROPH/DIAG INJ SC/IM CPT-4: 73770 02/24/2019 THER/PROPH/DIAG INJ SC/IM CPT-4: 34008 02/16/2019 CEFTRIAXONE SODIUM INJECTION CPT-4: J0696 10/29/2018 THER/PROPH/DIAG INJ SC/IM CPT-4: 41668 10/29/2018 THER/PROPH/DIAG INJ SC/IM CPT-4: 82719 10/26/2018 METHYLPREDNISOLONE INJECTION CPT-4: J2930 10/26/2018 THER/PROPH/DIAG INJ SC/IM CPT-4: 70431 06/23/2018 METHYLPREDNISOLONE INJECTION CPT-4: J2930 06/23/2018 COMPLETE CBC W/AUTO DIFF WBC CPT-4: 05361 06/11/2018 COMPREHEN METABOLIC PANEL CPT-4: 55970 06/11/2018 CEFTRIAXONE SODIUM INJECTION CPT-4: J0696 05/18/2018 THER/PROPH/DIAG INJ SC/IM CPT-4: 31446 05/18/2018 CEFTRIAXONE SODIUM INJECTION CPT-4: J0696 05/17/2018 THER/PROPH/DIAG INJ SC/IM CPT-4: 72814 05/17/2018 THER/PROPH/DIAG INJ SC/IM CPT-4: 16782 05/17/2018 METHYLPREDNISOLONE INJECTION CPT-4: J2930 05/17/2018 FLU VACC PRSV FREE INC ANTIG 65 AND OLDER CPT-4: 32655 05/12/2018 PNEUMOCOCCAL VACC 13 GAIL IM CPT-4: 66809 05/12/2018 ADMIN INFLUENZA VIRUS VAC CPT-4: G0008 05/12/2018 ADMIN PNEUMOCOCCAL VACCINE CPT-4: G0009 05/12/2018 FLU VACC PRSV FREE INC ANTIG 65 AND OLDER CPT-4: 26293 06/17/2017 ADMIN INFLUENZA VIRUS VAC CPT-4: G0008 06/17/2017 URINALYSIS NONAUTO W/O SCOPE CPT-4: 35446 05/21/2017 URINE CULTURE/ COLONY COUNT CPT-4: 52712 05/21/2017 CEFTRIAXONE SODIUM INJECTION CPT-4: J0696 12/16/2016 THER/PROPH/DIAG INJ SC/IM CPT-4: 42576 12/16/2016 THER/PROPH/DIAG INJ SC/IM CPT-4: 00575 12/16/2016 METHYLPREDNISOLONE INJECTION CPT-4: J2930 12/16/2016 CEFTRIAXONE SODIUM INJECTION CPT-4: J0696 12/15/2016 THER/PROPH/DIAG INJ SC/IM CPT-4: 31158 12/15/2016 THER/PROPH/DIAG INJ SC/IM CPT-4: 22924 12/15/2016 METHYLPREDNISOLONE INJECTION CPT-4: J2930 12/15/2016 THER/PROPH/DIAG INJ SC/IM CPT-4: 55367 12/10/2016 TRIAMCINOLONE ACET INJ NOS CPT-4: J3301 12/10/2016 DEXAMETHASONE SODIUM PHOS CPT-4: J1100 12/10/2016 FLU VACC PRSV FREE INC ANTIG 65 AND OLDER CPT-4: 54364 07/21/2016 ADMIN INFLUENZA VIRUS VAC CPT-4: G0008 07/21/2016 ROUTINE VENIPUNCTURE CPT-4: 83338 10/17/2015 COMPLETE CBC W/AUTO DIFF WBC CPT-4: 72719 10/17/2015 COMPREHEN METABOLIC PANEL CPT-4: 39005 10/17/2015 C-REACTIVE PROTEIN CPT-4: 79701 10/17/2015 FLU VACC PRSV FREE INC ANTIG 65 AND OLDER CPT-4: 11661 06/25/2015 ADMIN INFLUENZA VIRUS VAC CPT-4: G0008 06/25/2015 PRESCRIP TRANSMIT VIA ERX SY CPT-4: G8553 06/25/2015 PRESCRIP TRANSMIT VIA ERX SY CPT-4: G8553 04/11/2015 URINALYSIS NONAUTO W/O SCOPE CPT-4: 63985 02/08/2015 PRESCRIP TRANSMIT VIA ERX SY CPT-4: [...] 1: 148/74 Code: 8480-6 BMI: 35.2 Code: 33424-2 Heart Rate 1: 64 bpm Height: 5'10" [...] 1: 126/70 Code: 8480-6 BMI: 34.9 Code: 87570-0 Heart Rate 1: 64 bpm Height: 5'10" Respiratory Rate: 20 bpm SpO2: 96% Tempera ture: 36.8 (C) / 98.3 (F) Weight: 243 lbs 07/20/2017 Blood Pressure 1: 136/78 Code: 8480-6 Heart Rate 1: 74 bpm Height: 5'10" Respiratory Rate: 22 bpm SpO2: 98% Temperature: 36.2 (C) / 97.1 (F) Weight: 07/07/2017 Blood Pressure 1: 136/78 Code: 8480-6 BMI: 35.3 Code: 79057-5 Heart Rate 1: 72 bpm Height: 5'10" Respiratory Rate: 20 bpm SpO2: 95% Tempera ture: 36.7 (C) / 98.1 (F) Weight: 246 lbs 06/17/2017 Blood Pressure 1: 128/68 Code: 8480-6 BMI: 34.7 Code: 88486-3 Heart Rate 1: 80 bpm Height: 5'10" Respiratory Rate: 22 bpm SpO2: 94% Tempera ture: 36.7 (C) / 98.0 (F) Weight: 242 lbs 05/19/2017 Blood Pressure 1: 112/68 Code: 8480-6 BMI: 34.9 Code: 43690-4 Heart Rate 1: 84 bpm Height: 5'10" Respiratory Rate: 18 bpm SpO2: 97% Tempera ture: 36.4 (C) / 97.6 (F) Weight: 243 lbs 02/24/2017 Blood Pressure 1: 122/62 Code: 8480-6 Heart Rate 1: 66 bpm Height: 5'10" Respiratory Rate: 18 bpm SpO2: 95% Temperature: 36 .6 (C) / 97.9 (F) 01/01/2017 Blood Pressure 1: 126/58 Code: 8480-6 BMI: 34.9 Code: 18327-5 Heart Rate 1: 72 bpm Height: 5'10" [...] 1: 124/68 Code: 8480-6 BMI: 35.4 Code: 62687-1 Heart Rate 1: 84 bpm Height: 5'10" Respiratory Rate: 20 bpm SpO2: 94% Tempera ture: 37.0 (C) / 98.6 (F) Weight: 247 lbs 05/29/2016 Blood Pressure 1: 112/72 Code: 8480-6 BMI: 36.0 Code: 43140-1 Heart Rate 1: 108 bpm Height: 5'10" Respiratory Rate: 24 bpm SpO2: 91% Tempera ture: 36.4 (C) / 97.6 (F) Weight: 251 lbs 03/18/2016 Blood Pressure 1: 122/64 Code: 8480-6 BMI: 35.6 Code: 39569-0 Heart Rate 1: 64 bpm Height: 5'10" [...] 1: 134/78 Code: 8480-6 BMI: 35.9 Code: 64446-5 Heart Rate 1: 72 bpm Height: 5'10" Respiratory Rate: 20 bpm Temperature: 36 .9 (C) / 98.4 (F) Weight: 250 lbs 08/30/2015 Blood Pressure 1: 128/62 Code: 8480-6 Heart Rate 1: 78 bpm Respiratory Rate: 20 bpm SpO2: 96% Temperature: 35.9 (C) / 96.6 (F) We ight: 252 lbs 06/25/2015 Blood Pressure 1: 126/70 Code: 8480-6 BMI: 36.9 Code: 07875-6 Heart Rate 1: 64 bpm Height: 5'10" Respiratory Rate: 20 bpm Temperature: 36 .6 (C) / 97.9 (F) Weight: 257 lbs 04/25/2015 Blood Pressure 1: 130/80 Code: 8480-6 BMI: 37.3 Code: 25994-7 Heart Rate 1: 64 bpm Height: 5'10" Respiratory Rate: 22 bpm Temperature: 36 .4 (C) / 97.6 (F) Weight: 260 lbs 04/11/2015 Blood Pressure 1: 148/70 Code: 8480-6 BMI: 37.3 Code: 83377-6 Heart Rate 1: 66 bpm Height: 5'10" Respiratory Rate: 18 bpm Temperature: 36 .5 (C) / 97.7 (F) Weight: 260 lbs 02/27/2015 Blood Pressure 1: 122/58 Code: 8480-6 BMI: 36.0 Code: 96785-5 Heart Rate 1: 80 bpm Height: 5'10" Respiratory Rate: 20 bpm Temperature: 36 .7 (C) / 98.1 (F) Weight: 251 lbs 02/08/2015 Blood Pressure 1: 140/68 Code: 8480-6 BMI: 36.7 Code: 14456-5 Heart Rate 1: 64 bpm Height: 5'10" Respiratory Rate: 20 bpm Temperature: 36 .9 (C) / 98.5 (F) Weight: 256 lbs 01/18/2015 Blood Pressure 1: 136/68 Code: 8480-6 BMI: 33.0 Code: 95535-4 Heart Rate 1: 60 bpm Height: 5'10" [...] Diagnosis: Chronic depressive disorder[ICD10: F32.9] Haylee [facility] CPT-4: 07684 01/04/2020 ([id number]) NURSE/OUTPATIENT VISIT EST Diagnosis: Thrombocytopenia[ICD10: D69.6] Haylee Muniz [facility] CPT-4: 98505 10/10/2019 ([id number]) NO CHARGE Diagnosis: Pancytopenia[ICD10: D61.818] Haylee Mast [facility] CPT-4: 94833 10/10/2019 ([id number]) OFFICE/OUTPATIENT VISIT EST Diagnosis: Chronic obstructive pulmonary disease, unspecified[ICD10: J44.9] Diagnosis: Pancytopenia[ICD10: D61.818] Haylee Mast [employer] CPT-4: 62603 09/29/2019 ([id number]) NO CHARGE Diagnosis: Chronic obstructive pulmonary disease with (acute) exacerbation[ICD10: J44.1] Haylee PIPER DO [facility] CPT- 4: 80573 09/21/2019 ([id number]) OFFICE/OUTPATIENT VISIT EST Diagnosis: Chronic obstructive pulmonary disease with acute lower respiratory infection[ICD10: J44.0] Diagnosis: Chronic obstructive pulmonary disease with (acute) exacerbation[ICD10: J44.1] Haylee PIPER DO [facility] CPT- 4: 98216 09/20/2019 ([id number]) OFFICE/OUTPATIENT VISIT EST Diagnosis: COPD with lower respiratory infection[ICD10: J44.0] Diagnosis: COPD with exacerbation[ICD10: J44.1] Haylee PIPER DO [facility] CPT-4: 58365 09/19/2019 ([id number]) OFFICE/OUTPATIENT VISIT EST Diagnosis: Other fatigue[ICD10: R53.83] Diagnosis: Pancytopenia[ICD10: D61.818] Diagnosis: Other intervertebral disc degeneration, 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] Haylee PIPER DO [facility] CPT-4: 55555 09/05/2019 ([id number]) OFFICE/OUTPATIENT VISIT EST Diagnosis: Vitamin B12 deficiency anemia, unspecified[ICD10: D51.9] Diagnosis: Other fatigue[ICD10: R53.83] Diagnosis: Unsteadiness[ICD10: R26.81] Haylee ESCOBAR DO [facility] CPT-4: 34995 08/29/2019 ([id number]) NURSE/OUTPATIENT VISIT EST Diagnosis: Vitamin B12 deficiency anemia, unspecified[ICD10: D51.9] Haylee PIPER DO [facility] CPT-4: 25535 08/15/2019 ([id number]) NURSE/OUTPATIENT VISIT EST Diagnosis: Vitamin B12 deficiency anemia, unspecified[ICD10: D51.9] Haylee PIPER DO [facility] CPT-4: 15999 08/01/2019 ([id number]) NURSE/OUTPATIENT VISIT EST Diagnosis: Vitamin B12 deficiency anemia, unspecified[ICD10: D51.9] Haylee PIPER DO [facility] CPT-4: 47001 07/18/2019 ([id number]) NURSE/OUTPATIENT VISIT EST Diagnosis: Vitamin B12 deficiency anemia, unspecified[ICD10: D51.9] Haylee PIPER DO [facility] CPT-4: 98952 07/04/2019 ([id number]) NURSE/OUTPATIENT VISIT EST Diagnosis: Vitamin B12 deficiency anemia, unspecified[ICD10: D51.9] Haylee PIPER DO [facility] CPT-4: 23786 06/20/2019 ([id number]) NURSE/OUTPATIENT VISIT EST Diagnosis: Vitamin B12 deficiency anemia, unspecified[ICD10: D51.9] Diagnosis: FLU VACCINE[ICD10: Z23] Diagnosis: PNEUMOCOCCAL VACCINE[ICD10: Z23] Haylee PIPER DO [facility] CPT-4: 82953 06/06/2019 ([id number]) OFFICE/OUTPATIENT VISIT EST Diagnosis: Other fatigue[ICD10: R53.83] Diagnosis: B12 deficiency[ICD10: E53.8] Diagnosis: Iron deficiency anemia[ICD10: D50.9] Haylee PIPER DO [facility] CPT-4: 69043 05/23/2019 ([id number]) NURSE/OUTPATIENT VISIT EST Diagnosis: Vitamin B12 deficiency anemia, unspecified[ICD10: D51.9] Haylee PIPER DO [facility] CPT-4: 05005 05/18/2019 ([id number]) NURSE/OUTPATIENT VISIT EST Diagnosis: Vitamin B12 deficiency anemia, unspecified[ICD10: D51.9] Haylee PIPER DO [facility] CPT-4: 58701 05/04/2019 ([id number]) NURSE/OUTPATIENT VISIT EST Diagnosis: Vitamin B12 deficiency anemia, unspecified[ICD10: D51.9] Haylee PIPER DO [facility] CPT-4: 61347 04/27/2019 ([id number]) NURSE/OUTPATIENT VISIT EST Diagnosis: Vitamin B12 deficiency anemia, unspecified[ICD10: D51.9] Haylee PIPER DO [facility] CPT-4: 73512 04/20/2019 ([id number]) NURSE/OUTPATIENT VISIT EST Diagnosis: Vitamin B12 deficiency anemia, unspecified[ICD10: D51.9] Haylee PIPER DO [facility] CPT-4: 83481 04/06/2019 ([id number]) NURSE/OUTPATIENT VISIT EST Diagnosis: Vitamin B12 deficiency anemia, unspecified[ICD10: D51.9] Haylee PIPER DO [facility] CPT-4: 23314 03/23/2019 ([id number]) OFFICE/OUTPATIENT VISIT EST Diagnosis: Other intervertebral disc degeneration, 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] Diagnosis: Vitamin B12 deficiency anemia, unspecified[ICD10: D51.9] Diagnosis: Vitamin D deficiency, unspecified[ICD10: E55.9] Haylee PIPER DO [facility] CPT-4: 70634 03/17/2019 ([id number]) NURSE/OUTPATIENT VISIT EST Diagnosis: Vitamin B12 deficiency anemia, unspecified[ICD10: D51.9] Haylee PIPER DO [facility] CPT-4: 64104 03/14/2019 ([id number]) NURSE/OUTPATIENT VISIT EST Diagnosis: Vitamin B12 deficiency anemia, unspecified[ICD10: D51.9] Haylee PIPER DO [facility] CPT-4: 40840 03/07/2019 ([id number]) NURSE/OUTPATIENT VISIT EST Diagnosis: Vitamin B12 deficiency anemia, unspecified[ICD10: D51.9] Haylee PIPER DO [facility] CPT-4: 52519 02/24/2019 ([id number]) NURSE/OUTPATIENT VISIT EST Diagnosis: Vitamin B12 deficiency anemia, unspecified[ICD10: D51.9] Haylee PIPER DO [facility] CPT-4: 95687 02/16/2019 ([id number]) OFFICE/OUTPATIENT VISIT EST Diagnosis: Other fatigue[ICD10: R53.83] Diagnosis: Chronic obstructive pulmonary disease, unspecified[ICD10: J44.9] Diagnosis: Other spondylosis with radiculopathy, 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] Diagnosis: Vitamin D deficiency, unspecified[ICD10: E55.9] Diagnosis: Hyperglycemia, unspecified[ICD10: R73.9] Haylee PIPER DO [facility] CPT-4: 04093 02/14/2019 ([id number]) OFFICE/OUTPATIENT VISIT EST Diagnosis: Chronic obstructive pulmonary disease, unspecified[ICD10: J44.9] Diagnosis: Hypoxemia[ICD10: R09.02] Haylee [facility] CPT-4: 87432 11/11/2018 ([id number]) OFFICE/OUTPATIENT VISIT EST Diagnosis: Acute bronchitis, unspecified[ICD10: J20.9] Diagnosis: Other specified respiratory disorders[ICD10: J98.8] Diagnosis: Chronic obstructive pulmonary disease with (acute) exacerbation[ICD10: J44.1] Chula PIPER DO [facility] CPT- 4: 60365 10/29/2018 OFFICE/OUTPATIENT VISIT EST Diagnosis: Acute bronchitis due to other specified organisms[ICD10: J20.8] Diagnosis: Chronic obstructive pulmonary disease, unspecified[ICD10: J44.9] Chula PIPER DO [facility] CPT-4: 27241 10/26/2018 OFFICE/OUTPATIENT VISIT EST Diagnosis: Cervicalgia[ICD10: M54.2] Diagnosis: Other muscle spasm[ICD10: M62.838] Diagnosis: Chronic obstructive pulmonary disease, unspecified[ICD10: J44.9] Haylee PIPER DO [facility] CPT-4: 29885 08/11/2018 ([id number]) NURSE/OUTPATIENT VISIT EST Diagnosis: Acute bronchitis, unspecified[ICD10: J20.9] Haylee PIPER DO [facility] CPT-4: 13683 06/23/2018 ([id number]) OFFICE/OUTPATIENT VISIT EST Diagnosis: Acute bronchitis, unspecified[ICD10: J20.9] Columba PIPER DO [facility] CPT-4: 04576 06/17/2018 ([id number]) OFFICE/OUTPATIENT VISIT EST Diagnosis: Acute gastritis without bleeding[ICD10: K29.00] Columba PIPER DO [facility] CPT-4: 70836 06/11/2018 ([id number]) OFFICE/OUTPATIENT VISIT EST Diagnosis: Acute bronchitis, unspecified[ICD10: J20.9] Columba PIPER DO [facility] CPT-4: 87222 05/18/2018 ([id number]) OFFICE/OUTPATIENT VISIT EST Diagnosis: Dizziness and giddiness[ICD10: R42] Diagnosis: Acute bronchitis, unspecified[ICD10: J20.9] Diagnosis: Chronic obstructive pulmonary disease with acute lower respiratory infection[ICD10: J44.0] Columba PIPER DO [facility] CPT-4: 37223 05/17/2018 ([id number]) OFFICE/OUTPATIENT VISIT EST Diagnosis: Primary insomnia[ICD10: F51.01] Diagnosis: Other fatigue[ICD10: R53.83] 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] Diagnosis: Other spondylosis with radiculopathy, 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] Diagnosis: PNEUMOCOCCAL VACCINE[ICD10: Z23] Diagnosis: FLU VACCINE[ICD10: Z23] Haylee [facility] CPT-4: 12016 05/12/2018 OFFICE/OUTPATIENT VISIT EST Diagnosis: Candidal stomatitis[ICD10: B37.0] Columba PIPER DO [facility] CPT-4: 38704 07/20/2017 ([id number]) OFFICE/OUTPATIENT VISIT EST Diagnosis: Candidal stomatitis[ICD10: B37.0] Haylee PIPER DO [facility] CPT-4: 95464 07/07/2017 ([id number]) OFFICE/OUTPATIENT VISIT EST Diagnosis: Localized edema[ICD10: R60.0] Diagnosis: Anemia, unspecified[ICD10: D64.9] Diagnosis: Disorder of kidney and ureter, unspecified[ICD10: N28.9] Diagnosis: FLU VACCINE[ICD10: Z23] Haylee P[facility]ER [facility] CPT-4: 85248 06/17/2017 ([id number]) OFFICE/OUTPATIENT VISIT EST Diagnosis: Dysuria[ICD10: R30.0] Haylee PIPER DO [facility] CPT-4: 33798 05/21/2017 OFFICE/OUTPATIENT VISIT EST Diagnosis: Encounter for other specified special examinations[ICD10: Z01.89] Diagnosis: Disorder of kidney and ureter, unspecified[ICD10: N28.9] Diagnosis: Anemia, unspecified[ICD10: D64.9] Mayra Arguello TWIN PIPER DO [facility] CPT-4: 18784 05/19/2017 ([id number]) OFFICE/OUTPATIENT VISIT EST Diagnosis: URI, ACUTE[ICD10: J06.9] Haylee [facility] CPT-4: 49272 02/24/2017 ([id number]) OFFICE/OUTPATIENT VISIT EST Diagnosis: Hypotension, unspecified[ICD10: I95.9] Diagnosis: Bradycardia, unspecified[ICD10: R00.1] [facility]: 35804 01/01/2017 ([id number]) NO CHARGE Diagnosis: Chronic obstructive pulmonary disease with (acute) exacerbation[ICD10: J44.1] Diagnosis: Pneumonia, unspecified organism[ICD10: J18.9] [facility] C[facility]: 88077 12/22/2016 OFFICE/OUTPATIENT VISIT EST Diagnosis: Pneumonia, unspecified organism[ICD10: J18.9] Diagnosis: Chronic obstructive pulmonary disease with (acute) exacerbation[ICD10: J44.1] Haylee PIPER [facility] CPT- 4: 51418 12/17/2016 OFFICE/OUTPATIENT VISIT EST Diagnosis: Pneumonia, unspecified organism[ICD10: J18.9] Diagnosis: Mild intermittent asthma with (acute) exacerbation[ICD10: J45.21] Diagnosis: Chronic obstructive pulmonary disease with (acute) exacerbation[ICD10: J44.1] Haylee PIPER DO [facility] CPT- 4: 28769 12/16/2016 ([id number]) OFFICE/OUTPATIENT VISIT EST Diagnosis: Mild intermittent asthma with (acute) exacerbation[ICD10: J45.21] Diagnosis: Pneumonia, unspecified organism[ICD10: J18.9] Haylee PIPER [facility] CPT-4: 29044 12/15/2016 ([id number]) OFFICE/OUTPATIENT VISIT EST Diagnosis: Acute bronchitis, unspecified[ICD10: J20.9] Diagnosis: Unspecified asthma with (acute) exacerbation[ICD10: J45.901] Susie STEPHENSONLINE Pro PIPER [facility] CPT-4: 84626 12/11/2016 ([id number]) OFFICE/OUTPATIENT VISIT EST Diagnosis: Acute bronchitis, unspecified[ICD10: J20.9] Diagnosis: Unspecified asthma with (acute) exacerbation[ICD10: J45.901] Susie PIPER [facility] CPT-4: 36814 12/10/2016 ([id number]) OFFICE/OUTPATIENT VISIT EST Diagnosis: Chronic obstructive pulmonary disease with (acute) exacerbation[ICD10: J44.1] Diagnosis: Other spondylosis with radiculopathy, 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] Diagnosis: Other intervertebral disc degeneration, 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] Diagnosis: FLU VACCINE[ICD10: Z23] Haylee [facility] CPT-4: 32257 07/21/2016 ([id number]) OFFICE/OUTPATIENT VISIT EST Diagnosis: Unspecified open wound of right forearm, initial encounter[ICD10: S51.801A] Haylee PIPER [facility] CPT-4: 81143 05/30/2016 ([id number]) OFFICE/OUTPATIENT VISIT EST Diagnosis: Unspecified open wound of right forearm, initial encounter[ICD10: S51.801A] Susie STEPHENSONLINE Pro PIPER [facility] CPT-4: 88207 ([id number]) OFFICE/OUTPATIENT VISIT EST 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] Diagnosis: Mixed hyperlipidemia[ICD10: E78.2] Diagnosis: Other intervertebral disc degeneration, 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] [facility] C[facility]: 11184 03/18/2016 OFFICE/OUTPATIENT VISIT EST Diagnosis: Hypotension, unspecified[ICD10: I95.9] Diagnosis: Dizziness and giddiness[ICD10: R42] [facility] CPT[facility]: 13695 10/18/2015 ([id number]) OFFICE/OUTPATIENT VISIT EST Diagnosis: Hypotension, unspecified[ICD10: I95.9] [facility] C[facility]: 52084 10/17/2015 ([id number]) OFFICE/OUTPATIENT VISIT EST Diagnosis: Solitary pulmonary nodule[ICD10: R91.1] Diagnosis: Other spondylosis with radiculopathy, 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 CPT-4: 59823 04/11/2015 ([id number]) OFFICE/OUTPATIENT VISIT EST Diagnosis: MALAISE AND FATIGUE[ICD9: 780.79] Diagnosis: Lumbar degenerative disc disease[ICD9: 722.52] Diagnosis: Leg weakness[ICD9: 729.89] Haylee ROLLINSER [employer] CPT-4: 26964 02/27/2015 ([id number]) OFFICE/OUTPATIENT VISIT EST Diagnosis: Tremor[ICD9: 781.0] Diagnosis: Memory disturbance[ICD9: 780.93] Haylee PIPER [employer] CPT-4: 03378 02/08/2015 ([id number]) OFFICE/OUTPATIENT VISIT NEW Diagnosis: INSOMNIA NOS[ICD9: 780.52] Diagnosis: Lumbar degenerative disc disease[ICD9: 722.52] Diagnosis: Leg weakness[ICD9: 729.89] Diagnosis: DEPRESSIVE DISORDER NEC[ICD9: 311] Diagnosis: Coronary artery disease[ICD9: 414.00] Diagnosis: Peripheral vascular disease[ICD9: 443.9] Haylee PIPER [employer] CPT-4: 42506 01/18/2015 Plan of Care Planned Activity Notes Codes Status Date Visit Diagnosis Plan: Chronic depressive disorder Disc ussion: Change duloxetine to Wellbutrin XL in AM and Escitalopram 10mg q PM Follow Up: 4 weeks ICD-9 : 301.12 ICD-10 : F32.9 01/04/2020 Patient Education: escitalopram oxalate- [employer] Co upon [id number] [email or web address] Completed 01/04/2020 Patient Education: Wellbutrin XL- [employer] Coupon [id number] [email or web address]/[email or web address] Completed 01/04/2020 Visit Diagnosis Plan: Pancytopenia Discussion: Discuss ed options including hospice Patient has decided that he wants to proceed with oncology/hematology eval. so will try to arrange for that this week Once again discussed bleeding risks and reasons to seek immediate care ICD-9 : 284.19 ICD-10 : D61.818 10/10/2019 Appointment: Haylee Piperl: [address] [place], [place] [id number] US LAB 10/10/2019 Appointment: Haylee Piper WPtel: [address] [place], [place] [address] WORK IN 10/10/2019 Patient Education: Dexilant- [employer] Coupon [id number] [email or web address] [employer] [place]/[employer]/resources/getResource/[id number] Completed 10/10/2019 Care Plan: COMPREHEN METABOLIC PANEL JAKUB NC : 12779-6 Pending 10/06/2019 Care Plan: COMPLETE CBC W/AUTO DIFF WBC LOINC : 64359-1 Pending 10/06/2019 Visit Diagnosis Plan: Chronic obstructive pulmonary di sease, unspecified Discussion: Restart Symbicort Start pulmonary rehab Use oxygen q HS and prn Use SVNs with abuterol at least QID ICD-9 : 496 ICD-10 : J44.9 09/29/2019 Visit Diagnosis Plan: Pancytopenia Discussion: CBC in 1 week Once again discussed hematology consult ICD-9 : 284.19 ICD-10 : D61.818 09/29/2019 Appointment: Haylee Piper WPtel: [address] [place] [address] Hospital Follow Up 09/29/2019 Visit Diagnosis Plan: Chronic obstructiv e pulmonary disease with (acute) exacerbation Discussion: Direct admit to hospital ICD-9 : 491.21 ICD-10 : J44.1 09/21/2019 Appointment: Haylee Piper WPtel: [address] [place], [place] [phone] [place] WORK IN 09/21/2019 Visit Diagnosis Plan: [...] : J44.1 09/20/2019 Appointment: Haylee Piper WPtel: [address] [place], [place] [phone] [place] WORK IN 09/20/2019 Visit Diagnosis Plan: COPD with exacerbation Discussio n: Solumedrol 125mg IM now SVNs with duoneb q4hrs Recheck tomorrow ICD-9 : 491.21 ICD-10 : J44.1 09/19/2019 Visit Diagnosis Plan: COPD with lower respiratory infe ction Discussion: Rocephin 1gm IM now Recheck tomorrow ICD-9 : 496 ICD-10 : J44.0 09/19/2019 Appointment: Haylee Piper WPtel: [address] [place] [address] [place] FOLLOW UP 09/19/2019 Appointment: Haylee Piper WPtel: [address] [place], [place] [phone] [place] 09/02/19---moved him to a cancellation spot [...] : M51.36 09/05/2019 Appointment: Haylee Piper WPtel: [address] [place], [place] [phone] [place] FOLLOW UP 09/05/2019 Patient Education: Lyrica- OptimizeRX Beccapon [id number] https://www.[employer] [place]/samplemd/resources/getResource/61/[email or web address].pdf Completed 09/05/2019 Visit Diagnosis Plan: Vitamin B12 [...] ICD-10 : R26.81 08/29/2019 Appointment: Haylee Pipertel: [address] [place], [place] [phone] [place] MEDICATION REVIEW 08/29/2019 Appointment: Haylee Piper WPtel: [address] [place], [place] [phone] [place] INJECTION 08/15/2019 Appointment: Haylee Piper WPtel: [address] [place] [phone] [place] INJECTION 08/01/2019 Appointment: Haylee Piper WPtel: [address] [place], [place] [phone] [place] INJECTION 07/18/2019 Appointment: Haylee Piper WPtel: [address] [place] [phone] [place] INJECTION 07/04/2019 Appointment: Haylee Piper WPtel: [address] [place] [phone] [place] INJECTION 06/20/2019 Appointment: Haylee Piper WPtel: [address] [place] [phone] [place] INJECTION 06/06/2019 Appointment: Haylee Piper WPtel: [address] [place] [phone] [place] 06/02/19 1340---SENT REFILL OF B12 TO [...] : E53.8 05/23/2019 Appointment: Haylee Piper WPtel: [address] [place] [address] [place] FOLLOW UP 05/23/2019 Appointment: Haylee Piper WPtel: [address] [place], [place] [phone] [place] INJECTION 05/18/2019 Appointment: Haylee Piper WPtel: [address] [place] [phone] [place] INJECTION 05/04/2019 Appointment: Haylee Piper WPtel: [address] [place] [phone] [place] INJECTION 04/27/2019 Appointment: Haylee Piper WPtel: [address] [place] [phone] [place] INJECTION 04/20/2019 Appointment: Haylee Piper WPtel: [address] [place] [phone] [place] INJECTION 04/06/2019 Appointment: Haylee Piper WPtel: [address] [place] [phone] [place] INJECTION 03/23/2019 Visit Diagnosis Plan: Other [...] : D51.9 03/17/2019 Appointment: Haylee Piper WPtel: [address] [place] [address] [place] lm FOLLOW UP 03/17/2019 Care Plan: Referral Order SNOMED-CT : [id number] Pending 03/17/2019 Appointment: Haylee Piper WPtel: [address] [place] [phone] [place] INJECTION 03/14/2019 Appointment: Haylee Piper WPtel: [address] [place] [phone] [place] INJECTION 03/07/2019 Appointment: Haylee Piper WPtel: [address] [place], [place] [phone] [place] INJECTION 02/24/2019 Appointment: Haylee Piper WPtel: [address] [place] [phone] [place] INJECTION 02/16/2019 Visit Diagnosis Plan: Chronic [...] : R53.83 02/14/2019 Appointment: Haylee Piper WPtel: [address] [place] [phone] [place] FOLLOW UP 02/14/2019 Visit Diagnosis Plan: [...] : J44.9 11/11/2018 Appointment: Haylee Piper WPtel: [address] [place] [phone] [place] FOLLOW UP 11/11/2018 Visit Diagnosis Plan: [...] ICD-10 : J20.9 10/29/2018 Appointment: Chula Balbuena [address] [place], [place] [id number] ACUTE ILLNESS 10/29/2018 Patient Education: prednisone- OptimizeRX Coupon [phone] https://www.[employer].com/samplemd/resources/getResource/61/[email or web address] Completed 10/29/2018 Visit Diagnosis Plan: Acute bronchitis [...] ILLNESS 10/26/2018 Patient Education: doxycycline hyclate- OptimizeRX [facility] [id number] https://www.[employer]oh[employer]/samplemd/resources/getResource/61/[email or web address]-c46h-3965-3w Completed 10/26/2018 Visit Diagnosis Plan: Chronic obstructive [...] : M54.2 08/11/2018 Appointment: Haylee Piper WPtel: [address] [place], [place] [address] FOLLOW UP 08/11/2018 Appointment: Haylee Piper WPtel: [address] [place], [place] [phone] [place] INJECTION 06/23/2018 Patient Education: Patient Medication [...] ICD-10 : J20.9 06/17/2018 Appointment: Columba Curtis [address] [place] [address] ACUTE ILLNESS 06/17/2018 Patient Education: Patient Medication [...] ICD-10 : K29.00 06/11/2018 Appointment: Columba Curtis [address] [place] [address] ACUTE ILLNESS 06/11/2018 Patient Education: Patient Medication [...] ICD-10 : J20.9 05/18/2018 Appointment: Columba Curtis [address] [place] [address] FOLLOW UP 05/18/2018 Patient Education: Patient Medication [...] ICD-10 : J20.9 05/17/2018 Appointment: Columba Curtis [address] [place] [address] ACUTE ILLNESS 05/17/2018 Patient Education: Patient Medication Summary Completed 05/17/2018 Visit Diagnosis Plan: Other fatigue Discussion: Check CBC, TSH, Free T4 ICD-9 : 780.79 ICD-10 : R53.83 05/12/2018 Visit Diagnosis Plan: 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 Discussion: Following [...] : F51.01 05/12/2018 Appointment: Haylee Piper WPtel: [address] [place] [address] FOLLOW UP 05/12/2018 Patient Education: Patient Medication Summary Completed 05/12/2018 Appointment: Haylee Piper WPtel: [address] [place] [address] [place] CANCELED 09/21/2017 Visit Diagnosis Plan: Candidal [...] : B37.0 07/20/2017 Appointment: Columba Curtis [address] [place] [address] ACUTE ILLNESS 07/20/2017 Patient Education: Patient Medication [...] : B37.0 07/07/2017 Appointment: Haylee Piper WPtel: [address] [place] [address] FOLLOW UP 07/07/2017 Patient Education: Patient Medication Summary Completed 07/07/2017 Visit Diagnosis Plan: Localized edema Discussion: Star t lasix 20mg with potassium every other day and check Chem 7 in 2 weeks Flu shot given ICD-9 : 782.3 ICD-10 : R60.0 06/17/2017 Appointment: Haylee Ppier WPtel: [address] [place] [address] FOLLOW UP 06/17/2017 Patient Education: Patient Medication Summary Completed 06/17/2017 Appointment: Haylee Piper WPtel: [address] [place] [address] 05/21/2017 Patient Education: Patient Medication Summary Completed 05/21/2017 Appointment: Haylee Piper WPtel: [address] [place] [address] RESCHEDULED 05/20/2017 Visit Plan: Plan labs within the week CB C, CMP to check anemia, kidney status RTC in [address] Piper and for any worsening before that time. 05/19/2017 Appointment: Mayra Arguello WPtel: [address] [place] [address] Hospital Follow Up 05/19/2017 Patient Education: Patient [...] care. Rest, Fluids... 02/24/2017 Appointment: Haylee Pipertel: [address] [place], [place] [phone] WORK IN 02/24/2017 Patient Education: Patient Medication [...] : R00.1 01/01/2017 Appointment: Haylee Piper WPtel: [address] [place], [place] [phone] Hospital Follow Up 01/01/2017 Patient Education: Patient Medication Summary Completed 01/01/2017 Visit Diagnosis Plan: Chronic obstructiv e pulmonary disease with (acute) exacerbation Discussion: Exam, vitals and patient fee ling better is reassuring Finish rxs previously given Continue nebs PRN Follow up PRN ICD-9 : 491.21 ICD-10 : J44.1 12/22/2016 Appointment: Susie Paniagua [address] [facility] FOLLOW UP 12/22/2016 Patient Education: Patient [...] 12/17/2016 Appointment: Haylee Piper WPtel: [facility] [place] 12/17/2016 Patient Education: Patient [...] : J18.9 12/16/2016 Appointment: Haylee Piper WPtel: [address] [place], [place] [id number] [place] WORK IN 12/16/2016 Patient Education: Patient [...] : J45.21 12/15/2016 Appointment: Haylee Piper WPtel: [address] [place], [place] [id number] [place] WORK IN 12/15/2016 Patient Education: Patient [...] ICD-10 : J20.9 12/11/2016 Appointment: Susie Paniagua [address] [place], [place] [id number] FOLLOW UP 12/11/2016 Patient Education: Patient Medication Summary Completed 12/11/2016 Care Plan: CHEST X-RAY 2VW FRONTAL&LATL LOINC : 87144-8 Pending 12/11/2016 Care Plan: CBC Pending 12/11/2016 Visit Diagnosis Plan: Acute bronchitis, unspecified Di scussion: Injection in clinic today Continue proair Rxs as above Vicks, humidifier, etc Recheck tomorrow in clinic Will get CXR and labs if not starting to improve ICD-9 : 466.0 ICD-10 : J20.9 12/10/2016 Appointment: Susie Paniagua [address] [place] [address] ACUTE ILLNESS 12/10/2016 Patient Education: Patient Medication Summary Completed 12/10/2016 Visit Plan: Flu shot given Breo 100mcg 1 p BID for 2weeks with proair prn Notify if worsening or persists Fwup first part of October and sooner with needed 07/21/2016 Appointment: Haylee Ppier WPtel: [address] [place] [address] 07/17 confirmed~sl FOLLOW UP 07/21/2016 Patient Education: Patient Medication Summary Completed 07/21/2016 Visit Plan: GAUTAM Paniagua---wear esteban ssing through weekend and then take off to leave open to air 05/30/2016 Appointment: Haylee Piper WPtel: [address] [place] [address] Consult 05/30/2016 Patient Education: Patient Medication Summary [...] after tdap updated 05/29/2016 Appointment: Susie Paniagua [address] [place] [address] ACUTE ILLNESS 05/29/2016 Patient Education: Patient Medication Summary Completed 05/29/2016 Visit Plan: Continue current meds Patien t sees Dr. Eugene next week to see if would be surgical candidate 03/18/2016 Appointment: Haylee Piper WPtel: [facility] 03/17 confirmed ~sl FOLLOW UP 03/18/2016 Patient Education: Patient Medication Summary Completed 03/18/2016 Visit Plan: Continue to hold atenolol an d monitor BP Take 1/2 of atenolol if BP greater then 150/90 8-10 oz of gatorade daily for next week and hydrate unless develops edema BP check 1week 10/18/2015 Appointment: Haylee Piper WPtel: [address] [place], [place] [phone] [place] FOLLOW UP 10/18/2015 Patient Education: Patient Medication Summary Completed 10/18/2015 Visit Plan: Hold atenolol Hydrate, rest Refuses hospital but agrees will go to [facility] if worsens Recheck tomorrow Check CBC, CMP, CRP now 10/17/2015 Appointment: Haylee Piper WPtel: [address] [place], [place] [phone] WORK IN 10/17/2015 Patient Education: Patient Medication Summary Completed 10/17/2015 Visit Plan: Check CT scan of lungs November 18 Change proair to ventolin Fwup with Dr. Kilgore at end of month 10/10/2015 Appointment: Haylee Piper WPtel: [address] [place], [place] [phone] [place] 10/09 confirmed~lb FOLLOW UP 10/10/2015 Patient Education: Patient Medication Summary Completed 10/10/2015 Visit Plan: Obtain CT scan of chest resu lts Discussed that will likely need repeat scan pending reviewing above results but we will notify him once CT scan results reviewed 08/30/2015 Appointment: Haylee Piper WPtel: [address] [place], [place] [phone] [place] 08/29 appt confirmed cn Hospital Follow Up 08/30 Patient Education: Patient Medication Summary Completed 08/30/2015 Visit Plan: Continue dexilant and add Pe pcid 40mg q HS Discussed may need EGD Update thyroid US Flu shot given 06/25/2015 Appointment: Haylee Piper WPtel: [address] [place], [place] [phone] 06/22 confirmed ~sl FOLLOW UP 06/25/2015 Patient Education: Patient Medication Summary Completed 06/25/2015 Visit Plan: Continue Cymbalta at 120 mg PO daily Follow-up in 6 weeks Encouraged finding interest in a hobbie such as reading 04/25/2015 Appointment: Kat Carmona WPtel: [address] [place] [address] FOLLOW UP 04/25/2015 Patient Education: Patient Medication Summary Completed 04/25/2015 Visit Plan: Increase Cymbalta to 120 mg PO daily Follow-up in [address] Piper 04/11/2015 Appointment: Kat Carmona WPtel: [address] [place] [address] 04/09/2015 spoke with patient to make appointment FOLLOW UP 04/11/2015 Patient Education: Patient Medication Summary Completed 04/11/2015 Visit Plan: Continue Cymbalta, Neurontin Look out for tremor Discussed B12 supplement Given sample of Metanx 02/27/2015 Appointment: Haylee Piper WPtel: [address] [place] [address] 02/26 appt confirmed cn FOLLOW UP 02/28/20 [...] tremors persist 02/08/2015 Appointment: Haylee Piper WPtel: [address] [place] [address] FOLLOW UP 02/08/2015 Patient Education: Patient Medication Summary Completed 02/08/2015 Appointment: Haylee Piper WPtel: [address] [place] [address] [place] NEW PATIENT 01/18/2015 Patient Education: Patient Medication Summary Completed 01/18/2015 Patient Education: [facility] - Saving [employer] - Cymbalta - 18+ - Dynamic Portal ID Completed 01/18/2015 Referral: Atiya Vernon Jesus WPtel: [facility] [address], [id number] [place] Referral Appointment Requested Instructions Comment . [...] Refuses hospital but agrees will go to [facility] if worsens Recheck tomorrow Check CBC, CMP, [...]
--- OUTSIDE RECORDS SUMMARY | 2020-02-05 15:05 | XMS REPORT | CCD ---
Author Author Andrea Piper D.O. 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 PP Unavailable CCM Unavailable Summary Purpose Interface Exchange Insurance Providers Payer name Policy type / Coverage type Covered libertarian ID Effective Begin Date Effective End Date WPS MEDICARE PART B [place] Medicare Part B [id number] Unknown [employer] [place] Medicare Part B [id number] Unknown Family history Mother Diagnosis Age At Onset Breast cancer Unknown Brother Diagnosis Age At Onset Hypertension Unknown Grandfather Diagnosis Age At Onset Myocardial infarction Unknown Social History Social History Element Codes Description Effective Dates Tobacco history SNOMED CT: 881594540 Never smoker 05/18/2015 Marital status Unknown 01/18/2015 Number of children Unknown 3 01/18/2015 Employment Unknown Retired 01/18/[address]: 541327936 Never drinks alcohol 2014 Has the patient [...] R42 10/17/2015 Active 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: [...] Start Date Stop Date Status Fill Instructions baclofen 20 mg tablet RxNorm: 866435 TAKE ONE TABLET BY MOUTH EVERY NIGHT AT BEDTIME FOR MUSCLE SPASMS AND TAKE ONE TABLET EVERY MORNING NEEDED 01/02/2020 No Stop Date Active Dexilant 60 mg capsule, delayed release RxNorm: 441319 TAKE ONE CAPSULE BY MOUTH DAILY 12/14/2019 No Stop Date Active Cymbalta 60 mg capsule,delayed release RxNorm: 019609 2 Capsule (s) Oral QD 10/24/2019 04/20/2020 Active Dexilant 60 mg capsule, delayed release RxNorm: 390476 TAKE ONE CAPSULE BY MOUTH DAILY 09/19/2019 2019 Inactive Lyrica 50 mg capsule RxNorm: 910938 2 Capsule(s) Oral Q PM for 3 days then 1 po q PM for 3 days then stop 09/05/2019 10/09/2019 Inactive Lyrica 150 mg capsule RxNorm: 714477 1 Capsule(s) Oral every ni ght at bedtime 09/05/2019 09/05/2019 Inactive metoprolol succinate ER 100 mg tablet,extended release 24 hr RxNorm: 164589 1 Tablet(s) Oral QD 08/29/2019 11/27/2019 Inactive hydrocodone 7.5 mg-acetaminophen 325 mg tablet RxNorm: 55798 5 1 Tablet(s) Oral Q4H as needed for pain 08/15/2019 08/21/2019 Inactive Lyrica 150 mg capsule RxNorm: 134896 TAKE ONE CAPSULE BY MOUTH TWICE A DAY 08/11/2019 09/04/2019 Inactive baclofen 20 mg tablet RxNorm: 508197 TAKE ONE TABLET BY MOUTH EVERY NIGHT AT BEDTIME FOR MUSCLE SPASMS AND TAKE ONE TABLET EVERY MORNING NEEDED 08/10/2019 01/01/2020 Inactive Dexilant 60 mg capsule, delayed release RxNorm: 318803 TAKE ONE CAPSULE BY MOUTH DAILY 07/19/2019 09/18/2019 Inactive Cymbalta 60 mg capsule,delayed release RxNorm: 191987 T LASHAUN TWO CAPSULES BY MOUTH DAILY 07/06/2019 10/23/2019 Inactive cyanocobalamin (vit B-12) 1,000 mcg/mL injection solution Rx Norm: 643634 1 Milliliter(s) Intramuscular every two weeks 06/02/2019 06/02/2019 Inac tive cyanocobalamin (vit B-12) 1,000 mcg/mL injection solution Rx Norm: 217558 1 Milliliter(s) Intramuscular every two weeks 05/23/2019 06/01/2019 Inac tive Dexilant 60 mg capsule, delayed release RxNorm: 555897 TAKE ONE CAPSULE BY MOUTH DAILY 05/19/2019 07/17/2019 Inactive Lyrica 150 mg capsule RxNorm: 073861 1 Capsule(s) PO BID 05/11/2019 1 10/09/2018 Inactive Cymbalta 60 mg capsule,delayed release RxNorm: 766497 2 Capsule (s) PO QD 04/04/2019 07/02/2019 Inactive cyanocobalamin (vit B-12) 1,000 mcg/mL injection solution Rx Norm: 968484 1 Milliliter(s) IM QW 03/17/2019 05/22/2019 Inactive Lyrica 150 mg capsule RxNorm: 550145 TAKE ONE CAPSULE BY MOUTH TWICE A DAY 03/08/2019 03/09/2019 Inactive cyanocobalamin (vit B-12) 1,000 mcg/mL injection solution Rx Norm: 854988 1 Milliliter(s) IM QW 02/16/2019 03/16/2019 Inactive Lyrica 150 mg capsule RxNorm: 001714 TAKE ONE CAPSULE BY MOUTH TWICE A DAY 02/08/2019 03/08/2019 Inactive Dexilant 60 mg capsule, delayed release RxNorm: 108999 1 Capsul e(s) PO QD 02/08/2019 05/08/2019 Inactive Dexilant 60 mg capsule, delayed release RxNorm: 592282 TAKE ONE CAPSULE BY MOUTH DAILY 01/03/2019 02/08/2019 Inactive Lyrica 150 mg capsule RxNorm: 668684 1 Capsule(s) PO BID 01/03/2019 0 02/08/2019 Inactive Cymbalta 60 mg capsule,delayed release RxNorm: 728656 T LASHAUN TWO CAPSULES BY MOUTH DAILY 12/27/2018 04/04/2019 Inactive Dexilant 60 mg capsule, delayed release RxNorm: 821685 TAKE ONE CAPSULE BY MOUTH DAILY 12/07/2018 01/02/2019 Inactive prednisone 20 mg tablet RxNorm: 640443 Take 3 tabs by m outh for 3 days, then 2 tabs by mouth for 3 days, then 1 tab by mouth for 3 days Take 2 tabs for 10/29/2018 11/07/2018 Inactive doxycycline hyclate 100 mg tablet RxNorm: 1450886 1 Tablet(s) PO BI D 10/26/2018 11/04/2018 Inactive doxycycline hyclate 100 mg tablet RxNorm: 6902930 1 Tablet(s) PO BI D 10/26/2018 10/25/2018 Inactive Dexilant 60 mg capsule, delayed release RxNorm: 318530 TAKE ONE CAPSULE BY MOUTH DAILY 10/04/2018 12/06/2018 Inactive Lyrica 150 mg capsule RxNorm: 751179 TAKE ONE CAPSULE BY MOUTH TWICE A DAY 10/04/2018 11/02/2018 Inactive baclofen 20 mg tablet RxNorm: 588531 1 Tablet(s) PO QHS for muscle spasm and q AM prn 08/11/2018 08/09/2019 Inactive Lyrica 150 mg capsule RxNorm: 066111 1 Capsule(s) PO BID 08/06/2018 0 10/04/2018 Inactive Dexilant 60 mg capsule, delayed release RxNorm: 012522 TAKE ONE CAPSULE BY MOUTH DAILY 07/07/2018 10/03/2018 Inactive Cymbalta 60 mg capsule,delayed release RxNorm: 028907 T LASHAUN TWO CAPSULES BY MOUTH DAILY 06/28/2018 12/24/2018 Inactive prednisone 20 mg tablet RxNorm: 776816 1 Tablet(s) PO BID 06/17/2018 06/21/2018 Inactive Zithromax Z-Osman 250 mg tablet RxNorm: 675397 Tablet(s) PO take as directed 06/17/2018 08/10/2018 Inactive Flagyl 500 mg tablet RxNorm: 509169 1 Tablet(s) PO BID 06/11/2018 Inactive Cipro 250 mg tablet RxNorm: 801565 1 Tablet(s) PO BID 06/11/201805/31 Inactive atenolol 50 mg tablet RxNorm: 197880 1 Tablet(s) PO BID 05/31/2018 Inactive albuterol sulfate 2.5 mg/3 mL (0.083 %) solution for n ebulization RxNorm: 063199 3 Milliliter(s) INH Q4H as needed 05/17/2018 No Stop Date Active Zithromax Z-Osman 250 mg tablet RxNorm: 441065 Tablet(s) PO take as directed 05/17/2018 06/10/2018 Inactive Lyrica 150 mg capsule RxNorm: 175274 1 Capsule(s) PO BID 05/12/2018 1 10/07/2017 Inactive hydrocodone 7.5 mg-acetaminophen 325 mg tablet RxNorm: 57975 5 1 Tablet(s) PO Q4H as needed for pain 05/12/2018 05/18/2018 Inactive Cymbalta 60 mg capsule,delayed release RxNorm: 968856 T LASHAUN TWO CAPSULES BY MOUTH DAILY 04/01/2018 04/04/2018 Inactive Lyrica 100 mg capsule RxNorm: 895518 Capsule(s) TAKE ON E CAPSULE BY MOUTH TWICE A DAY 03/01/2018 05/11/2018 Inactive Dexilant 60 mg capsule, delayed release RxNorm: 534796 1 Capsul e(s) PO QD 01/06/2018 07/04/2018 Inactive atenolol 50 mg tablet RxNorm: 625602 1 Tablet(s) PO BID 12/30/2017 Inactive Lyrica 100 mg capsule RxNorm: 981002 Capsule(s) TAKE ON E CAPSULE BY MOUTH TWICE A DAY 12/30/2017 02/26/2018 Inactive Cymbalta 60 mg capsule,delayed release RxNorm: 562772 2 Capsule (s) PO QD 12/30/2017 03/29/2018 Inactive ProAir HFA 90 mcg/actuation aerosol inhaler RxNorm: 794302 INHALE 2 PUFFS FOUR TIMES A DAY 11/12/2017 01/25/2018 Inactive Cymbalta 60 mg capsule,delayed release RxNorm: 446322 2 Capsule (s) PO QD 10/06/2017 12/30/2017 Inactive Lyrica 100 mg capsule RxNorm: 540563 TAKE ONE CAPSULE BY MOUTH TWICE A DAY 09/28/2017 10/26/2017 Inactive Lyrica 100 mg capsule RxNorm: 287214 1 Capsule(s) PO BID 08/26/2017 0 09/28/2017 Inactive Zithromax Z-Osman 250 mg tablet RxNorm: 994997 Tablet(s) PO As Di rected 08/07/2017 05/11/2018 Inactive Diflucan 150 mg tablet RxNorm: 623294 1 Tablet(s) PO Q72H 07/20/2017 05/11/2018 Inactive nystatin 100,000 unit/mL oral suspension RxNorm: 309538 5 Milliliter(s) PO QID swish and spit for 2 weeks 07/07/2017 07/20/2017 Inactive fluconazole 100 mg tablet RxNorm: 700077 1 Tablet(s) PO QD 07/07/20 17 07/13/2017 Inactive Dexilant 60 mg capsule, delayed release RxNorm: 112293 1 Capsul e(s) PO QD 07/01/2017 01/06/2018 Inactive Cymbalta 60 mg capsule,delayed release RxNorm: 563204 2 Capsule (s) PO QD 07/01/2017 09/28/2017 Inactive atenolol 50 mg tablet RxNorm: 889261 1 Tablet(s) PO BID 06/17/2017 Inactive atenolol 50 mg tablet RxNorm: 888117 1 Tablet(s) PO BID 06/17/2017 Inactive atenolol 25 mg tablet RxNorm: 076087 1 Tablet(s) PO QD 06/16/2017 Inactive Cipro 250 mg tablet RxNorm: 236577 1 Tablet(s) PO BID 05/26/201705/02 Inactive Cipro 250 mg tablet RxNorm: 708059 1 Tablet(s) PO BID 05/26/201710/2016 Inactive Cymbalta 60 mg capsule,delayed release RxNorm: 011881 2 Capsule (s) PO QD 04/02/2017 07/01/2017 Inactive Zanaflex 4 mg tablet RxNorm: 438492 1 Tablet(s) PO BID as neede d for spasm 03/18/2017 05/11/2018 Inactive methocarbamol 750 mg tablet RxNorm: 495901 1 Tablet(s) PO TID as needed for muscle spasm 03/17/2017 03/17/2017 Inactive Cymbalta 60 mg capsule,delayed release RxNorm: 730581 T LASHAUN TWO CAPSULES BY MOUTH DAILY 01/01/2017 04/02/2017 Inactive atenolol 25 mg tablet RxNorm: 265725 1 Tablet(s) PO QD 01/01/2017 Inactive Dexilant 60 mg capsule, delayed release RxNorm: 666604 1 Capsul e(s) PO QD 12/24/2016 07/01/2017 Inactive prednisone 20 mg tablet RxNorm: 099546 1 Tablet(s) PO BID 12/17/2016 12/23/2016 Inactive doxycycline hyclate 100 mg capsule RxNorm: 0185669 1 Capsule(s) PO BID 12/11/2016 12/20/2016 Inactive doxycycline hyclate 100 mg capsule RxNorm: 0634768 1 Capsule(s) PO BID 12/11/2016 12/10/2016 Inactive albuterol sulfate 2.5 mg/3 mL (0.083 %) solution for n ebulization RxNorm: 996288 3 Milliliter(s) INH Q4H as needed 12/11/2016 05/16/2018 Inactiv e guaifenesin 400 mg tablet RxNorm: 422366 1 Tablet(s) PO QID 017 05/11/2018 Inactive Tessalon Perles 100 mg capsule RxNorm: 624088 1 Capsule (s) PO TID as needed for cough 12/10/2016 12/31/2016 Inactive ProAir HFA 90 mcg/actuation aerosol inhaler RxNorm: 891602 INHALE 2 PUFFS FOUR TIMES A DAY 08/12/2016 11/12/2017 Inactive Dexilant 60 mg capsule, delayed release RxNorm: 281744 TAKE ONE CAPSULE BY MOUTH DAILY 06/16/2016 12/24/2016 Inactive Cymbalta 60 mg capsule,delayed release RxNorm: 953866 2 Capsule (s) PO QD 06/16/2016 12/12/2016 Inactive zolpidem 10 mg tablet RxNorm: 415595 TAKE ONE TABLET BY MOUTH A T BEDTIME 03/10/2016 05/28/2016 Inactive Dexilant 60 mg capsule, delayed release RxNorm: 751300 TAKE ONE CAPSULE BY MOUTH DAILY 02/06/2016 06/04/2016 Inactive Cymbalta 60 mg capsule,delayed release RxNorm: 054147 2 Capsule (s) PO QD 11/19/2015 05/16/2016 Inactive zolpidem 10 mg tablet RxNorm: 797985 TAKE ONE TABLET BY MOUTH A T BEDTIME 10/02/2015 03/10/2016 Inactive Dexilant 60 mg capsule, delayed release RxNorm: 582695 TAKE ONE CAPSULE BY MOUTH DAILY 08/28/2015 01/24/2016 Inactive ProAir HFA 90 mcg/actuation aerosol inhaler RxNorm: 085484 2 Pu ff(s) INH QID 06/25/2015 10/22/2015 Inactive famotidine 40 mg tablet RxNorm: 255585 1 Tablet(s) PO QHS 06/25/2015 10/09/2015 Inactive Dexilant 60 mg capsule, delayed release RxNorm: 943197 1 Capsul e(s) PO QD 06/07/2015 08/27/2015 Inactive zolpidem 10 mg tablet RxNorm: 886089 TAKE ONE TABLET BY MOUTH EVERY NIGHT AT BEDTIME 06/01/2015 10/03/2015 Inactive Cymbalta 60 mg capsule,delayed release RxNorm: 845480 2 Capsule (s) PO QD 05/10/2015 11/19/2015 Inactive Cymbalta 60 mg capsule,delayed release RxNorm: 693347 2 Capsule (s) PO QD 04/11/2015 05/10/2015 Inactive zolpidem 10 mg tablet RxNorm: 657044 TAKE ONE TABLET BY MOUTH A T BEDTIME 04/06/2015 06/01/2015 Inactive zolpidem 10 mg tablet RxNorm: 584085 TAKE ONE TABLET BY MOUTH A T BEDTIME 03/05/2015 04/06/2015 Inactive zolpidem 10 mg tablet RxNorm: 600972 1 Tablet(s) PO QHS as need ed for sleep 02/27/2015 03/04/2015 Inactive Cymbalta 60 mg capsule,delayed release RxNorm: 157827 1 Capsule (s) PO QD 01/18/2015 04/10/2015 Inactive [AttnRPh: Saving clare ly/adjudicate RxGRP:[id number] RxBIN:[id number] RxPCN: ID#:[id number]] Trazadone 75mg Tablet RxNorm: 1-2 Tablet(s) PO QHS as ne eded for sleep 01/18/2015 02/26/2015 Inactive Singulair 10 mg tablet RxNorm: 814106 1 Tablet(s) PO QD No Start Date Active Tylenol Extra Strength 500 mg tablet RxNorm: 009707 Tablet(s) P O as needed No Start Date Active methocarbamol 750 mg tablet RxNorm: 345659 Tablet(s) PO as needed N o Start Date Active Vitamin D3 1,000 unit capsule RxNorm: 433185 1 Capsule(s) PO BID No Start Date Active aspirin 81 mg tablet RxNorm: 926621 1 Tablet(s) PO QD No Start Date Active Symbicort 160 mcg-4.5 mcg/actuation HFA aerosol inhaler RxNo rm: 7980127 2 Puff(s) INH BID No Start Date Active atorvastatin 40 mg tablet RxNorm: 353096 1 Tablet(s) PO QD No Start D ate Active potassium chloride ER 10 mEq tablet,extended release RxNorm: 031913 Tablet(s) PO as needed No Start Date Active furosemide 40 mg tablet RxNorm: 748012 Tablet(s) PO as needed No Star t Date Active Trazadone 100 100mg mg Tablet RxNorm: 1-2 Tablet(s) PO QHS No Start Date 01/17/2015 Inactive Fish Oil 1,000 mg capsule RxNorm: 1 Capsule(s) PO QD No Start Date 05/16/2018 Inactive multivitamin with iron tablet RxNorm: 1 Tablet(s) PO QD No Sta rt Date 05/16/2018 Inactive Spiriva Respimat inhalation RxNorm: 801373 inhalation No Start Date 1 09/05/2016 Inactive atenolol 25 mg tablet RxNorm: 372059 1 Tablet(s) PO BID No Start Da te 12/31/2016 Inactive Spiriva Respimat 2.5 mcg/actuation solution for inhalation R xNorm: 6845517 2 Puff(s) INH QD No Start Date 05/11/2018 Inactive Zithromax Z-Osman 250 mg tablet RxNorm: 488910 Tablet(s) PO As Di rected No Start Date 08/06/2017 Inactive Zanaflex 4 mg tablet RxNorm: 715736 1 Tablet(s) PO BID as neede d for spasm No Start Date 03/17/2017 Inactive gabapentin 800 mg tablet RxNorm: 796911 1 Tablet(s) PO TID No Start Date 03/17/2016 Inactive losartan 100 mg tablet RxNorm: 001296 1 Tablet(s) PO QD No Start Da te 12/31/2016 Inactive cyclobenzaprine 10 mg tablet RxNorm: 154309 1 Tablet(s) PO TID as needed for muscle spasm No Start Date 05/11/2018 Inactive gabapentin 300 mg capsule RxNorm: 153854 1 Capsule(s) PO TID No Sta rt Date 10/09/2015 Inactive ferrous sulfate 325 mg (65 mg iron) tablet RxNorm: 114059 1 Tab let(s) PO QD No Start Date 09/04/2019 Inactive Dexilant 60 mg capsule, delayed release RxNorm: 127610 1 Capsul e(s) PO QD No Start Date 06/06/2015 Inactive amitriptyline 25 mg tablet RxNorm: 675974 1-2 Tablet(s) PO QHS as needed for sleep --replaces ambien No Start Date 07/20/2016 Inactive hydrocodone 7.5 mg-acetaminophen 325 mg tablet RxNorm: 00042 5 1 Tablet(s) PO TID No Start Date 05/11/2018 Inactive Lyrica 75 mg capsule RxNorm: 541802 1 Capsule(s) PO BID No Start Da te 05/11/2018 Inactive gabapentin 300 mg capsule RxNorm: 684398 1 Capsule(s) PO QHS No Sta rt Date 02/07/2015 Inactive Lyrica 50 mg capsule RxNorm: 201846 1 Capsule(s) PO BID No Start Da te 07/20/2016 Inactive zolpidem 10 mg tablet RxNorm: 859300 1 Tablet(s) PO QHS No Start Da te 02/07/2015 Inactive citalopram 40 mg tablet RxNorm: 142567 1 Tablet(s) PO QD No Start D ate 01/17/2015 Inactive hydrocodone 7.5 mg-acetaminophen 325 mg tablet RxNorm: 78992 5 1 Tablet(s) PO Q6H as needed for pain No Start Date 03/17/2016 Inactive losartan 100 mg tablet RxNorm: 439292 1/2 Tablet(s) PO QD No Start Date 05/18/2017 Inactive cyanocobalamin (vit B-12) 1,000 mcg/mL injection solution Rx Norm: 143638 1 Milliliter(s) IM QW No Start Date 02/15/2019 Inactive ProAir HFA 90 mcg/actuation aerosol inhaler RxNorm: 4125217 2 Pu ff(s) INH TID No Start Date 06/24/2015 Inactive methocarbamol 750 mg tablet RxNorm: 613789 1 Tablet(s) PO TID as needed for [...] Code Result Date S ervice Location NCDF [id number] Neutrophil 27 % 10/11/2019 Unknown NCDF 8606462 BAND 0 % 10/11/2019 Unknown NCDF 8185014 Lymphocyte 59 % 10/11/2019 Unknown NCDF 5757961 Monocyte 13 % 10/11/2019 Unknown NCDF 5603990 Eosinophil 1 % 10/11/2019 Unknown NCDF 4574665 Basophil 0 % 10/11/2019 Unknown NCDF 8765803 Platelet Est Decreased 10/11/2019 Unkno wn NCDF [id number] Large Plts Present 10/11/2019 Unknown COMPLETE BLOOD COUNT [id number] WBC 2.4 10e9/L 10/10/19 20 Unknown COMPLETE BLOOD COUNT [id number] RBC 3.15 10e12/L 2019 Unknown COMPLETE BLOOD COUNT [id number] HEMOGLOBIN 11.4 g/dL 10/10/19 20 Unknown COMPLETE BLOOD COUNT [id number] HEMATOCRIT 35.0 % 10/10/19 20 Unknown COMPLETE BLOOD COUNT [id number] MCV 111.1 fL 0 Unknown COMPLETE BLOOD COUNT [id number] MCH 36.2 pg 0 Unknown COMPLETE BLOOD COUNT [id number] MCHC 32.6 g/dL 0 Unknown COMPLETE BLOOD COUNT [id number] PLATELET COUNT 18 10e9/L 10/01 Unknown COMPLETE BLOOD COUNT [id number] Mean Plt Volume 11.3 fL 05/2020 Unknown COMPLETE BLOOD COUNT [id number] Neut Auto 27.9 % 0 Unknown COMPLETE BLOOD COUNT [id number] Lymph Auto 58.5 % 10/10/19 20 Unknown COMPLETE BLOOD COUNT [id number] Sampson Auto 12.0 % 0 Unknown COMPLETE BLOOD COUNT [id number] RDW 14.0 % 0 Unknown COMPLETE BLOOD COUNT [id number] Eos Auto 0.4 % 0 Unknown COMPLETE BLOOD COUNT [id number] Baso Auto 1.2 % 0 Unknown COMPLETE BLOOD COUNT [id number] Neutrophil Abs 0.67 10e9/L Unknown COMPLETE BLOOD COUNT [id number] Lymphocyte Abs 1.40 10e9/L Unknown COMPLETE BLOOD COUNT [id number] Monocyte Abs 0.29 10e9/L 10/01 Unknown COMPLETE BLOOD COUNT [id number] Eosinophil Abs 0.01 10e9/L Unknown COMPLETE BLOOD COUNT [id number] RDW-SD 54.2 fL 0 Unknown COMPLETE BLOOD COUNT [id number] Basophil Abs 0.03 10e9/L 10/01 Unknown NCDF 3668097 Neutrophil 32 % 08/30/2019 Unknown NCDF 3802685 BAND 4 % 08/30/2019 Unknown NCDF 4513940 Lymphocyte 43 % 08/30/2019 Unknown NCDF 3676474 Monocyte 20 % 08/30/2019 Unknown NCDF 1504079 Eosinophil 1 % 08/30/2019 Unknown NCDF 2211605 Basophil 0 % 08/30/2019 Unknown NCDF 4947637 Platelet Est Decreased 08/30/2019 Unkno wn VITAMIN B 12 70637 VITAMIN B12 716 pg/mL 08/29/2019 Unkn own COMPLETE BLOOD COUNT [id number] WBC 3.0 10e9/L 08/29/20 19 Unknown COMPLETE BLOOD COUNT [id number] RBC 3.19 10e12/L 2018 Unknown COMPLETE BLOOD COUNT [id number] HEMOGLOBIN 11.5 g/dL 08/29/20 19 Unknown COMPLETE BLOOD COUNT [id number] HEMATOCRIT 35.6 % 08/29/20 19 Unknown COMPLETE BLOOD COUNT [id number] MCV 111.6 fL 9 Unknown COMPLETE BLOOD COUNT [id number] MCH 36.1 pg 9 Unknown COMPLETE BLOOD COUNT [id number] MCHC 32.3 g/dL 9 Unknown COMPLETE BLOOD COUNT [id number] PLATELET COUNT 79 10e9/L 08/02 Unknown COMPLETE BLOOD COUNT [id number] Mean Plt Volume 11.1 fL Unknown COMPLETE BLOOD COUNT [id number] Neut Auto 32.7 % 9 Unknown COMPLETE BLOOD COUNT [id number] Lymph Auto 39.6 % 08/29/20 19 Unknown COMPLETE BLOOD COUNT [id number] Sampson Auto 24.4 % 9 Unknown COMPLETE BLOOD COUNT 9295329 RDW 14.0 % 9 Unknown COMPLETE BLOOD COUNT 9714921 Eos Auto 2.0 % 9 Unknown COMPLETE BLOOD COUNT 9124994 Baso Auto 1.3 % 9 Unknown COMPLETE BLOOD COUNT [id number] Neutrophil Abs 0.98 10e9/L Unknown COMPLETE BLOOD COUNT [id number] Lymphocyte Abs 1.19 10e9/L Unknown COMPLETE BLOOD COUNT [id number] Monocyte Abs 0.73 10e9/L 08/02 Unknown COMPLETE BLOOD COUNT [id number] Eosinophil Abs 0.06 10e9/L Unknown COMPLETE BLOOD COUNT [id number] RDW-SD 54.5 fL 9 Unknown COMPLETE BLOOD COUNT [id number] Basophil Abs 0.04 10e9/L 08/02 Unknown NCDF 5304879 Neutrophil 37 % 05/24/2019 Unknown NCDF 5467692 BAND 5 % 05/24/2019 Unknown NCDF 9406703 Lymphocyte 34 % 05/24/2019 Unknown NCDF 4352101 Monocyte 19 % 05/24/2019 Unknown NCDF 5280819 Eosinophil 3 % 05/24/2019 Unknown NCDF 5474219 Basophil 2 % 05/24/2019 Unknown NCDF 6042395 Platelet Est Adequate 05/24/2019 Unknow n VITAMIN B 12 12681 VITAMIN B12 788 pg/mL 05/23/2019 Unkn own IRON 06080 Iron 152 ug/dL 05/23/2019 Unknown COMPLETE BLOOD COUNT [id number] WBC 3.9 10e9/L 05/23/20 19 Unknown COMPLETE BLOOD COUNT [id number] RBC 3.61 10e12/L 2018 Unknown COMPLETE BLOOD COUNT [id number] HEMOGLOBIN 12.5 g/dL 05/23/20 19 Unknown COMPLETE BLOOD COUNT [id number] HEMATOCRIT 38.2 % 05/23/20 19 Unknown COMPLETE BLOOD COUNT [id number] MCV 105.8 fL 9 Unknown COMPLETE BLOOD COUNT [id number] MCH 34.6 pg 9 Unknown COMPLETE BLOOD COUNT [id number] MCHC 32.7 g/dL 9 Unknown COMPLETE BLOOD COUNT [id number] PLATELET COUNT 157 10e9/L Unknown COMPLETE BLOOD COUNT [id number] Mean Plt Volume 10.4 fL Unknown COMPLETE BLOOD COUNT 7280616 Neut Auto 35.6 % 9 Unknown COMPLETE BLOOD COUNT [id number] Lymph Auto 33.2 % 05/23/20 19 Unknown COMPLETE BLOOD COUNT [id number] Sampson Auto 26.6 % 9 Unknown COMPLETE BLOOD COUNT [id number] RDW 14.1 % 9 Unknown COMPLETE BLOOD COUNT 4809216 Eos Auto 1.8 % 9 Unknown COMPLETE BLOOD COUNT [id number] Baso Auto 2.8 % 9 Unknown COMPLETE BLOOD COUNT [id number] Neutrophil Abs 1.39 10e9/L Unknown COMPLETE BLOOD COUNT [id number] Lymphocyte Abs 1.29 10e9/L Unknown COMPLETE BLOOD COUNT [id number] Monocyte Abs 1.04 10e9/L 05/02 Unknown COMPLETE BLOOD COUNT [id number] Eosinophil Abs 0.07 10e9/L Unknown COMPLETE BLOOD COUNT [id number] RDW-SD 53.5 fL 9 Unknown COMPLETE BLOOD COUNT [id number] Basophil Abs 0.11 10e9/L 05/02 Unknown COMPLETE BLOOD COUNT [id number] WBC 5.4 10e9/L 06/11/20 18 Unknown COMPLETE BLOOD COUNT [id number] RBC 4.05 10e12/L 2017 Unknown COMPLETE BLOOD COUNT [id number] HEMOGLOBIN 13.5 g/dL 06/11/20 18 Unknown COMPLETE BLOOD COUNT [id number] HEMATOCRIT 41.3 % 06/11/20 18 Unknown COMPLETE BLOOD COUNT [id number] MCV 102.0 fL 8 Unknown COMPLETE BLOOD COUNT [id number] MCH 33.3 pg 8 Unknown COMPLETE BLOOD COUNT [id number] MCHC 32.7 g/dL 8 Unknown COMPLETE BLOOD COUNT [id number] PLATELET COUNT 210 10e9/L 07/2018 Unknown COMPLETE BLOOD COUNT [id number] Mean Plt Volume 10.0 fL 07/2018 Unknown COMPLETE BLOOD COUNT [id number] Neut Auto 35.2 % 8 Unknown COMPLETE BLOOD COUNT [id number] Lymph Auto 29.2 % 06/11/20 18 Unknown COMPLETE BLOOD COUNT [id number] Sampson Auto 17.3 % 8 Unknown COMPLETE BLOOD COUNT [id number] RDW 13.8 % 8 Unknown COMPLETE BLOOD COUNT 0076810 Eos Auto 16.4 % 8 Unknown COMPLETE BLOOD COUNT [id number] Baso Auto 1.9 % 8 Unknown COMPLETE BLOOD COUNT [id number] Neutrophil Abs 1.90 10e9/L Unknown COMPLETE BLOOD COUNT [id number] Lymphocyte Abs 1.58 10e9/L Unknown COMPLETE BLOOD COUNT [id number] Monocyte Abs 0.93 10e9/L 05/31 Unknown COMPLETE BLOOD COUNT [id number] Eosinophil Abs 0.89 10e9/L Unknown COMPLETE BLOOD COUNT [id number] RDW-SD 50.2 fL 8 Unknown COMPLETE BLOOD COUNT [id number] Basophil Abs 0.10 10e9/L 05/31 Unknown GFR CALC [id number] GFR Non Afr Amr >60 mL/min 06/11/2018 Un known GFR CALC [id number] GFR Afr Amr >60 mL/min 06/11/2018 Unknow n COMPREHENSIVE METABOLIC 82509 AST 15 U/L 2017 Unknown COMPREHENSIVE METABOLIC 76903 ALT 18 U/L 2017 Unknown COMPREHENSIVE METABOLIC 23004 BUN 11 mg/dL 2017 Unknown COMPREHENSIVE METABOLIC 51384 ALBUMIN 3.7 g/dL 2017 Unknown COMPREHENSIVE METABOLIC 82390 CHLORIDE 102 mmol/L 06/11 Unknown COMPREHENSIVE METABOLIC 73866 Bili Total 0.6 mg/dL 06/11 Unknown COMPREHENSIVE METABOLIC 77913 ALK PHOS 98 U/L 2017 Unknown COMPREHENSIVE METABOLIC 14139 SODIUM 139 mmol/L 06/11 Unknown COMPREHENSIVE METABOLIC 02969 CREATININE 0.89 mg/dL 05/31 Unknown COMPREHENSIVE METABOLIC 13862 CALCIUM 8.7 mg/dL 2017 Unknown COMPREHENSIVE METABOLIC 98558 POTASSIUM 3.9 mmol/L 06/11 Unknown COMPREHENSIVE METABOLIC 85480 Total Protein 6.7 g/dL Unknown COMPREHENSIVE METABOLIC 37821 Glucose 112 mg/dL 2017 Unknown COMPREHENSIVE METABOLIC 85832 Bicarbonate 35 mmol/L 05/31 Unknown COMPREHENSIVE METABOLIC 36902 AGAP 2 mmol/L 2017 Unknown COMPLETE BLOOD COUNT [id number] WBC 7.4 10e9/L 10/17/19 16 Unknown COMPLETE BLOOD COUNT [id number] RBC 4.42 10e12/L 2015 Unknown COMPLETE BLOOD COUNT 0795962 HGB 13.8 g/dL 6 Unknown COMPLETE BLOOD COUNT [id number] HCT DET 40.8 % 6 Unknown COMPLETE BLOOD COUNT 8634755 MCV 92.3 fL 6 Unknown COMPLETE BLOOD COUNT 5462543 MCH 31.2 pg 6 Unknown COMPLETE BLOOD COUNT 7636941 MCHC 33.8 g/dL 6 Unknown COMPLETE BLOOD COUNT [id number] PLT 247 10e9/L 10/17/19 16 Unknown COMPLETE BLOOD COUNT [id number] MPV 9.3 fL 6 Unknown COMPLETE BLOOD COUNT [id number] YANNICK % 63.0 % 6 Unknown COMPLETE BLOOD COUNT [id number] LY % 19.2 % 6 Unknown COMPLETE BLOOD COUNT [id number] MON % 15.8 % 6 Unknown COMPLETE BLOOD COUNT [id number] EOS % 1.1 % 6 Unknown COMPLETE BLOOD COUNT [id number] BASO % 0.9 % 6 Unknown COMPLETE BLOOD COUNT [id number] RDW 13.7 % 6 Unknown COMPLETE BLOOD COUNT [id number] ABS YANNICK 4.66 10e9/L 016 Unknown COMPLETE BLOOD COUNT [id number] ABS LYMPH 1.42 10e9/L 016 Unknown COMPLETE BLOOD COUNT [id number] ABS MONO 1.17 10e9/L 016 Unknown COMPLETE BLOOD COUNT [id number] ABS EOS 0.08 10e9/L 016 Unknown COMPLETE BLOOD COUNT [id number] ABS BASO 0.07 10e9/L 016 Unknown COMPLETE BLOOD COUNT [id number] RDW-SD 44.9 fL 6 Unknown GFR CALC [id number] GFR AA 46.0L ML/MIN 10/17/2015 Unknow n GFR CALC [id number] GFR NON-AA 37.0L ML/MIN 10/17/2015 Unkno wn C-REACTIVE PROTEIN (CRP) QUANT 97963 CRP 0.5 MG/DL 10/17/2015 Unknown COMPREHENSIVE METABOLIC 80893 AST 18 U/L 2015 Unknown COMPREHENSIVE METABOLIC 51313 ALT 27 U/L 2015 Unknown COMPREHENSIVE METABOLIC 10793 BUN 38 MG/DL 2015 Unknown COMPREHENSIVE METABOLIC 68335 ALBUMIN 3.7 GM/DL 2015 Unknown COMPREHENSIVE METABOLIC 69783 CHLORIDE 100 MMOL/L 10/17 Unknown COMPREHENSIVE METABOLIC 25609 BILI TOT 0.8 MG/DL 2015 Unknown COMPREHENSIVE METABOLIC 80240 ALK PHOS 70 U/L 2015 Unknown COMPREHENSIVE METABOLIC 25533 SODIUM 137 MMOL/L 10/17 Unknown COMPREHENSIVE METABOLIC 86374 CREATININE 1.80 MG/DL 10/01 Unknown COMPREHENSIVE METABOLIC 54257 CALCIUM 8.9 MG/DL 2015 Unknown COMPREHENSIVE METABOLIC 06824 POTASSIUM 5.1 MMOL/L 10/17 Unknown COMPREHENSIVE METABOLIC 80274 PROT TOT 6.6 GM/DL 2015 Unknown COMPREHENSIVE METABOLIC 83514 Glucose 99 MG/DL 2015 Unknown COMPREHENSIVE METABOLIC 99219 BICARB 22 MMOL/L 2015 Unknown COMPREHENSIVE METABOLIC 86568 ANION GAP 15 MMOL/L 2015 Unknown Procedures Procedure Codes Date ROUTINE VENIPUNCTURE CPT-4: 92083 10/10/2019 COMPLETE CBC W/AUTO DIFF WBC CPT-4: 04806 10/10/2019 THER/PROPH/DIAG INJ SC/IM CPT-4: 10580 09/20/2019 TRIAMCINOLONE ACET INJ NOS CPT-4: J3301 09/20/2019 CEFTRIAXONE SODIUM INJECTION CPT-4: J0696 09/20/2019 THER/PROPH/DIAG INJ SC/IM CPT-4: 99949 09/20/2019 THER/PROPH/DIAG INJ SC/IM CPT-4: 59226 09/19/2019 METHYLPREDNISOLONE INJECTION CPT-4: J2930 09/19/2019 CEFTRIAXONE SODIUM INJECTION CPT-4: J0696 09/19/2019 THER/PROPH/DIAG INJ SC/IM CPT-4: 07922 09/19/2019 ROUTINE VENIPUNCTURE CPT-4: 70002 08/29/2019 COMPLETE CBC W/AUTO DIFF WBC CPT-4: 80377 08/29/2019 VITAMIN B-12 CPT-4: 70946 08/29/2019 THER/PROPH/DIAG INJ SC/IM CPT-4: 15677 08/29/2019 THER/PROPH/DIAG INJ SC/IM CPT-4: 62806 08/15/2019 THER/PROPH/DIAG INJ SC/IM CPT-4: 52367 08/01/2019 THER/PROPH/DIAG INJ SC/IM CPT-4: 98852 07/18/2019 THER/PROPH/DIAG INJ SC/IM CPT-4: 97197 07/04/2019 THER/PROPH/DIAG INJ SC/IM CPT-4: 33941 06/20/2019 FLU VACC PRSV FREE INC ANTIG 65 AND OLDER CPT-4: 65733 06/06/2019 THER/PROPH/DIAG INJ SC/IM CPT-4: 87667 06/06/2019 FLU VACC PRSV FREE INC ANTIG 65 AND OLDER CPT-4: 00326 06/06/2019 PNEUMOCOCCAL VACC 23 GAIL IM CPT-4: 25290 06/06/2019 ADMIN INFLUENZA VIRUS VAC CPT-4: G0008 06/06/2019 ADMIN PNEUMOCOCCAL VACCINE CPT-4: G0009 06/06/2019 ROUTINE VENIPUNCTURE CPT-4: 29236 05/23/2019 COMPLETE CBC W/AUTO DIFF WBC CPT-4: 01197 05/23/2019 ASSAY OF IRON CPT-4: 74333 05/23/2019 VITAMIN B-12 CPT-4: 39114 05/23/2019 THER/PROPH/DIAG INJ SC/IM CPT-4: 11130 05/18/2019 THER/PROPH/DIAG INJ SC/IM CPT-4: 27181 05/04/2019 THER/PROPH/DIAG INJ SC/IM CPT-4: 60643 04/27/2019 THER/PROPH/DIAG INJ SC/IM CPT-4: 37095 04/20/2019 THER/PROPH/DIAG INJ SC/IM CPT-4: 08832 04/06/2019 THER/PROPH/DIAG INJ SC/IM CPT-4: 13436 03/23/2019 VITAMIN B12 INJECTION CPT-4: J3420 03/23/2019 THER/PROPH/DIAG INJ SC/IM CPT-4: 01103 03/14/2019 THER/PROPH/DIAG INJ SC/IM CPT-4: 34521 03/07/2019 THER/PROPH/DIAG INJ SC/IM CPT-4: 90885 02/24/2019 THER/PROPH/DIAG INJ SC/IM CPT-4: 53778 02/16/2019 CEFTRIAXONE SODIUM INJECTION CPT-4: J0696 10/29/2018 THER/PROPH/DIAG INJ SC/IM CPT-4: 20278 10/29/2018 THER/PROPH/DIAG INJ SC/IM CPT-4: 05359 10/26/2018 METHYLPREDNISOLONE INJECTION CPT-4: J2930 10/26/2018 THER/PROPH/DIAG INJ SC/IM CPT-4: 80128 06/23/2018 METHYLPREDNISOLONE INJECTION CPT-4: J2930 06/23/2018 COMPLETE CBC W/AUTO DIFF WBC CPT-4: 36412 06/11/2018 COMPREHEN METABOLIC PANEL CPT-4: 35228 06/11/2018 CEFTRIAXONE SODIUM INJECTION CPT-4: J0696 05/18/2018 THER/PROPH/DIAG INJ SC/IM CPT-4: 40950 05/18/2018 CEFTRIAXONE SODIUM INJECTION CPT-4: J0696 05/17/2018 THER/PROPH/DIAG INJ SC/IM CPT-4: 24861 05/17/2018 THER/PROPH/DIAG INJ SC/IM CPT-4: 83297 05/17/2018 METHYLPREDNISOLONE INJECTION CPT-4: J2930 05/17/2018 FLU VACC PRSV FREE INC ANTIG 65 AND OLDER CPT-4: 86225 05/12/2018 PNEUMOCOCCAL VACC 13 GAIL IM CPT-4: 48252 05/12/2018 ADMIN INFLUENZA VIRUS VAC CPT-4: G0008 05/12/2018 ADMIN PNEUMOCOCCAL VACCINE CPT-4: G0009 05/12/2018 FLU VACC PRSV FREE INC ANTIG 65 AND OLDER CPT-4: 40019 06/17/2017 ADMIN INFLUENZA VIRUS VAC CPT-4: G0008 06/17/2017 URINALYSIS NONAUTO W/O SCOPE CPT-4: 19994 05/21/2017 URINE CULTURE/ COLONY COUNT CPT-4: 33865 05/21/2017 CEFTRIAXONE SODIUM INJECTION CPT-4: J0696 12/16/2016 THER/PROPH/DIAG INJ SC/IM CPT-4: 43001 12/16/2016 THER/PROPH/DIAG INJ SC/IM CPT-4: 40766 12/16/2016 METHYLPREDNISOLONE INJECTION CPT-4: J2930 12/16/2016 CEFTRIAXONE SODIUM INJECTION CPT-4: J0696 12/15/2016 THER/PROPH/DIAG INJ SC/IM CPT-4: 82136 12/15/2016 THER/PROPH/DIAG INJ SC/IM CPT-4: 66079 12/15/2016 METHYLPREDNISOLONE INJECTION CPT-4: J2930 12/15/2016 THER/PROPH/DIAG INJ SC/IM CPT-4: 91913 12/10/2016 TRIAMCINOLONE ACET INJ NOS CPT-4: J3301 12/10/2016 DEXAMETHASONE SODIUM PHOS CPT-4: J1100 12/10/2016 FLU VACC PRSV FREE INC ANTIG 65 AND OLDER CPT-4: 03945 07/21/2016 ADMIN INFLUENZA VIRUS VAC CPT-4: G0008 07/21/2016 ROUTINE VENIPUNCTURE CPT-4: 55369 10/17/2015 COMPLETE CBC W/AUTO DIFF WBC CPT-4: 78647 10/17/2015 COMPREHEN METABOLIC PANEL CPT-4: 84914 10/17/2015 C-REACTIVE PROTEIN CPT-4: 32411 10/17/2015 FLU VACC PRSV FREE INC ANTIG 65 AND OLDER CPT-4: 90404 06/25/2015 ADMIN INFLUENZA VIRUS VAC CPT-4: G0008 06/25/2015 PRESCRIP TRANSMIT VIA ERX SY CPT-4: G8553 06/25/2015 PRESCRIP TRANSMIT VIA ERX SY CPT-4: G8553 04/11/2015 URINALYSIS NONAUTO W/O SCOPE CPT-4: 54128 02/08/2015 PRESCRIP TRANSMIT VIA ERX SY CPT-4: [...] 1: 148/74 Code: 8480-6 BMI: 35.2 Code: 61518-0 Heart Rate 1: 64 bpm Height: 5'10" [...] 1: 126/70 Code: 8480-6 BMI: 34.9 Code: 90903-0 Heart Rate 1: 64 bpm Height: 5'10" Respiratory Rate: 20 bpm SpO2: 96% Tempera ture: 36.8 (C) / 98.3 (F) Weight: 243 lbs 07/20/2017 Blood Pressure 1: 136/78 Code: 8480-6 Heart Rate 1: 74 bpm Height: 5'10" Respiratory Rate: 22 bpm SpO2: 98% Temperature: 36.2 (C) / 97.1 (F) Weight: 07/07/2017 Blood Pressure 1: 136/78 Code: 8480-6 BMI: 35.3 Code: 68879-1 Heart Rate 1: 72 bpm Height: 5'10" Respiratory Rate: 20 bpm SpO2: 95% Tempera ture: 36.7 (C) / 98.1 (F) Weight: 246 lbs 06/17/2017 Blood Pressure 1: 128/68 Code: 8480-6 BMI: 34.7 Code: 47660-8 Heart Rate 1: 80 bpm Height: 5'10" Respiratory Rate: 22 bpm SpO2: 94% Tempera ture: 36.7 (C) / 98.0 (F) Weight: 242 lbs 05/19/2017 Blood Pressure 1: 112/68 Code: 8480-6 BMI: 34.9 Code: 49556-5 Heart Rate 1: 84 bpm Height: 5'10" Respiratory Rate: 18 bpm SpO2: 97% Tempera ture: 36.4 (C) / 97.6 (F) Weight: 243 lbs 02/24/2017 Blood Pressure 1: 122/62 Code: 8480-6 Heart Rate 1: 66 bpm Height: 5'10" Respiratory Rate: 18 bpm SpO2: 95% Temperature: 36 .6 (C) / 97.9 (F) 01/01/2017 Blood Pressure 1: 126/58 Code: 8480-6 BMI: 34.9 Code: 84486-9 Heart Rate 1: 72 bpm Height: 5'10" [...] 1: 124/68 Code: 8480-6 BMI: 35.4 Code: 97625-1 Heart Rate 1: 84 bpm Height: 5'10" Respiratory Rate: 20 bpm SpO2: 94% Tempera ture: 37.0 (C) / 98.6 (F) Weight: 247 lbs 05/29/2016 Blood Pressure 1: 112/72 Code: 8480-6 BMI: 36.0 Code: 64922-8 Heart Rate 1: 108 bpm Height: 5'10" Respiratory Rate: 24 bpm SpO2: 91% Tempera ture: 36.4 (C) / 97.6 (F) Weight: 251 lbs 03/18/2016 Blood Pressure 1: 122/64 Code: 8480-6 BMI: 35.6 Code: 93110-1 Heart Rate 1: 64 bpm Height: 5'10" [...] 1: 134/78 Code: 8480-6 BMI: 35.9 Code: 23976-8 Heart Rate 1: 72 bpm Height: 5'10" Respiratory Rate: 20 bpm Temperature: 36 .9 (C) / 98.4 (F) Weight: 250 lbs 08/30/2015 Blood Pressure 1: 128/62 Code: 8480-6 Heart Rate 1: 78 bpm Respiratory Rate: 20 bpm SpO2: 96% Temperature: 35.9 (C) / 96.6 (F) We ight: 252 lbs 06/25/2015 Blood Pressure 1: 126/70 Code: 8480-6 BMI: 36.9 Code: 92066-9 Heart Rate 1: 64 bpm Height: 5'10" Respiratory Rate: 20 bpm Temperature: 36 .6 (C) / 97.9 (F) Weight: 257 lbs 04/25/2015 Blood Pressure 1: 130/80 Code: 8480-6 BMI: 37.3 Code: 12214-8 Heart Rate 1: 64 bpm Height: 5'10" Respiratory Rate: 22 bpm Temperature: 36 .4 (C) / 97.6 (F) Weight: 260 lbs 04/11/2015 Blood Pressure 1: 148/70 Code: 8480-6 BMI: 37.3 Code: 18108-6 Heart Rate 1: 66 bpm Height: 5'10" Respiratory Rate: 18 bpm Temperature: 36 .5 (C) / 97.7 (F) Weight: 260 lbs 02/27/2015 Blood Pressure 1: 122/58 Code: 8480-6 BMI: 36.0 Code: 30294-5 Heart Rate 1: 80 bpm Height: 5'10" Respiratory Rate: 20 bpm Temperature: 36 .7 (C) / 98.1 (F) Weight: 251 lbs 02/08/2015 Blood Pressure 1: 140/68 Code: 8480-6 BMI: 36.7 Code: 03148-9 Heart Rate 1: 64 bpm Height: 5'10" Respiratory Rate: 20 bpm Temperature: 36 .9 (C) / 98.5 (F) Weight: 256 lbs 01/18/2015 Blood Pressure 1: 136/68 Code: 8480-6 BMI: 33.0 Code: 24898-8 Heart Rate 1: 60 bpm Height: 5'10" [...] visit Encounters Encounter Performer Location Codes Date ([id number]) NURSE/OUTPATIENT VISIT EST Diagnosis: Thrombocytopenia[ICD10: D69.6] Haylee PIPER [employer] CPT-4: 72139 10/10/2019 ([id number]) NO CHARGE Diagnosis: Pancytopenia[ICD10: D61.818] Haylee EspinozaCristy NICOLASA [employer] CPT-4: 38665 10/10/2019 ([id number]) OFFICE/OUTPATIENT VISIT EST Diagnosis: Chronic obstructive pulmonary disease, unspecified[ICD10: J44.9] Diagnosis: Pancytopenia[ICD10: D61.818] Haylee KUMARI S. NICOLASA [employer] CPT-4: 19672 09/29/2019 ([id number]) NO CHARGE Diagnosis: Chronic obstructive pulmonary disease with (acute) exacerbation[ICD10: J44.1] Haylee Espinoza. NICOLASA [employer] CPT- 4: 06951 09/21/2019 ([id number]) OFFICE/OUTPATIENT VISIT EST Diagnosis: Chronic obstructive pulmonary disease with acute lower respiratory infection[ICD10: J44.0] Diagnosis: Chronic obstructive pulmonary disease with (acute) exacerbation[ICD10: J44.1] Haylee Espinoza. JUNNDSHAHRZAD [employer] CPT- 4: 99090 09/20/2019 ([id number]) OFFICE/OUTPATIENT VISIT EST Diagnosis: COPD with lower respiratory infection[ICD10: J44.0] Diagnosis: COPD with exacerbation[ICD10: J44.1] Haylee STEPHENSON SELVIN S. 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] Haylee PIPER DO [facility] CPT-4: 89128 09/05/2019 ([id number]) OFFICE/OUTPATIENT VISIT EST Diagnosis: Vitamin B12 deficiency anemia, unspecified[ICD10: D51.9] Diagnosis: Other fatigue[ICD10: R53.83] Diagnosis: Unsteadiness[ICD10: R26.81] Haylee ESCOBAR DO [facility] CPT-4: 67627 08/29/2019 ([id number]) NURSE/OUTPATIENT VISIT EST Diagnosis: Vitamin B12 deficiency anemia, unspecified[ICD10: D51.9] Haylee PIPER DO [facility] CPT-4: 49267 08/15/2019 ([id number]) NURSE/OUTPATIENT VISIT EST Diagnosis: Vitamin B12 deficiency anemia, unspecified[ICD10: D51.9] Haylee PIPER DO [facility] CPT-4: 38593 08/01/2019 ([id number]) NURSE/OUTPATIENT VISIT EST Diagnosis: Vitamin B12 deficiency anemia, unspecified[ICD10: D51.9] Haylee PIPER DO [facility] CPT-4: 09957 07/18/2019 ([id number]) NURSE/OUTPATIENT VISIT EST Diagnosis: Vitamin B12 deficiency anemia, unspecified[ICD10: D51.9] Haylee PIPER DO [facility] CPT-4: 58193 07/04/2019 ([id number]) NURSE/OUTPATIENT VISIT EST Diagnosis: Vitamin B12 deficiency anemia, unspecified[ICD10: D51.9] Haylee PIPER DO [facility] CPT-4: 90461 06/20/2019 ([id number]) NURSE/OUTPATIENT VISIT EST Diagnosis: Vitamin B12 deficiency anemia, unspecified[ICD10: D51.9] Diagnosis: FLU VACCINE[ICD10: Z23] Diagnosis: PNEUMOCOCCAL VACCINE[ICD10: Z23] Haylee PIPER DO [facility] CPT-4: 18378 06/06/2019 ([id number]) OFFICE/OUTPATIENT VISIT EST Diagnosis: Other fatigue[ICD10: R53.83] Diagnosis: B12 deficiency[ICD10: E53.8] Diagnosis: Iron deficiency anemia[ICD10: D50.9] Haylee PIPER DO [facility] CPT-4: 25149 05/23/2019 ([id number]) NURSE/OUTPATIENT VISIT EST Diagnosis: Vitamin B12 deficiency anemia, unspecified[ICD10: D51.9] Haylee PIPER DO [facility] CPT-4: 66786 05/18/2019 ([id number]) NURSE/OUTPATIENT VISIT EST Diagnosis: Vitamin B12 deficiency anemia, unspecified[ICD10: D51.9] Haylee PIPER DO [facility] CPT-4: 21716 05/04/2019 ([id number]) NURSE/OUTPATIENT VISIT EST Diagnosis: Vitamin B12 deficiency anemia, unspecified[ICD10: D51.9] Haylee PIPER DO [facility] CPT-4: 99560 04/27/2019 ([id number]) NURSE/OUTPATIENT VISIT EST Diagnosis: Vitamin B12 deficiency anemia, unspecified[ICD10: D51.9] Haylee PIPER DO [facility] CPT-4: 73918 04/20/2019 ([id number]) NURSE/OUTPATIENT VISIT EST Diagnosis: Vitamin B12 deficiency anemia, unspecified[ICD10: D51.9] Haylee PIPER DO [facility] CPT-4: 42586 04/06/2019 ([id number]) NURSE/OUTPATIENT VISIT EST Diagnosis: Vitamin B12 deficiency anemia, unspecified[ICD10: D51.9] Haylee PIPER DO [facility] CPT-4: 22127 03/23/2019 ([id number]) OFFICE/OUTPATIENT VISIT EST Diagnosis: Other intervertebral disc degeneration, 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] Diagnosis: Vitamin B12 deficiency anemia, unspecified[ICD10: D51.9] Diagnosis: Vitamin D deficiency, unspecified[ICD10: E55.9] Haylee PIPER DO [facility] CPT-4: 68092 03/17/2019 ([id number]) NURSE/OUTPATIENT VISIT EST Diagnosis: Vitamin B12 deficiency anemia, unspecified[ICD10: D51.9] Haylee PIPER DO [facility] CPT-4: 21290 03/14/2019 ([id number]) NURSE/OUTPATIENT VISIT EST Diagnosis: Vitamin B12 deficiency anemia, unspecified[ICD10: D51.9] Haylee PIPER DO [facility] CPT-4: 38375 03/07/2019 ([id number]) NURSE/OUTPATIENT VISIT EST Diagnosis: Vitamin B12 deficiency anemia, unspecified[ICD10: D51.9] Haylee PIEPR DO [facility] CPT-4: 49242 02/24/2019 ([id number]) NURSE/OUTPATIENT VISIT EST Diagnosis: Vitamin B12 deficiency anemia, unspecified[ICD10: D51.9] Haylee PIPER DO [facility] CPT-4: 51061 02/16/2019 ([id number]) OFFICE/OUTPATIENT VISIT EST Diagnosis: Other fatigue[ICD10: R53.83] Diagnosis: Chronic obstructive pulmonary disease, unspecified[ICD10: J44.9] Diagnosis: Other spondylosis with radiculopathy, 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] Diagnosis: Vitamin D deficiency, unspecified[ICD10: E55.9] Diagnosis: Hyperglycemia, unspecified[ICD10: R73.9] Haylee PIPER DO [facility] CPT-4: 36039 02/14/2019 ([id number]) OFFICE/OUTPATIENT VISIT EST Diagnosis: Chronic obstructive pulmonary disease, unspecified[ICD10: J44.9] Diagnosis: Hypoxemia[ICD10: R09.02] Haylee MCCOLLUM [facility] CPT-4: 75452 11/11/2018 ([id number]) OFFICE/OUTPATIENT VISIT EST Diagnosis: Acute bronchitis, unspecified[ICD10: J20.9] Diagnosis: Other specified respiratory disorders[ICD10: J98.8] Diagnosis: Chronic obstructive pulmonary disease with (acute) exacerbation[ICD10: J44.1] Chula Balbuena HAYLEE PIPER DO [facility] CPT- 4: 86223 10/29/2018 OFFICE/OUTPATIENT VISIT EST Diagnosis: Acute bronchitis due to other specified organisms[ICD10: J20.8] Diagnosis: Chronic obstructive pulmonary disease, unspecified[ICD10: J44.9] Chula PIPER DO [facility] CPT-4: 09010 10/26/2018 OFFICE/OUTPATIENT VISIT EST Diagnosis: Cervicalgia[ICD10: M54.2] Diagnosis: Other muscle spasm[ICD10: M62.838] Diagnosis: Chronic obstructive pulmonary disease, unspecified[ICD10: J44.9] Haylee PIPER [facility] CPT-4: 03953 08/11/2018 ([id number]) NURSE/OUTPATIENT VISIT EST Diagnosis: Acute bronchitis, unspecified[ICD10: J20.9] Haylee PIPER [facility] CPT-4: 63014 06/23/2018 ([id number]) OFFICE/OUTPATIENT VISIT EST Diagnosis: Acute bronchitis, unspecified[ICD10: J20.9] Columba PIPER [facility] CPT-4: 88753 06/17/2018 ([id number]) OFFICE/OUTPATIENT VISIT EST Diagnosis: Acute gastritis without bleeding[ICD10: K29.00] Columba PIPER DO [facility] CPT-4: 41053 06/11/2018 ([id number]) OFFICE/OUTPATIENT VISIT EST Diagnosis: Acute bronchitis, unspecified[ICD10: J20.9] Columba PIPER DO [facility] CPT-4: 00761 05/18/2018 ([id number]) OFFICE/OUTPATIENT VISIT EST Diagnosis: Dizziness and giddiness[ICD10: R42] Diagnosis: Acute bronchitis, unspecified[ICD10: J20.9] Diagnosis: Chronic obstructive pulmonary disease with acute lower respiratory infection[ICD10: J44.0] Columba PIPER DO [facility] CPT-4: 17688 05/17/2018 ([id number]) OFFICE/OUTPATIENT VISIT EST Diagnosis: Primary insomnia[ICD10: F51.01] Diagnosis: Other fatigue[ICD10: R53.83] 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] Diagnosis: Other spondylosis with radiculopathy, 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] Diagnosis: PNEUMOCOCCAL VACCINE[ICD10: Z23] Diagnosis: FLU VACCINE[ICD10: Z23] Haylee PARKER [facility] CPT-4: 01082 05/12/2018 OFFICE/OUTPATIENT VISIT EST Diagnosis: Candidal stomatitis[ICD10: B37.0] Columba PIPER DO [facility] CPT-4: 52638 07/20/2017 ([id number]) OFFICE/OUTPATIENT VISIT EST Diagnosis: Candidal stomatitis[ICD10: B37.0] Haylee PIPER DO [facility] CPT-4: 05574 07/07/2017 ([id number]) OFFICE/OUTPATIENT VISIT EST Diagnosis: Localized edema[ICD10: R60.0] Diagnosis: Anemia, unspecified[ICD10: D64.9] Diagnosis: Disorder of kidney and ureter, unspecified[ICD10: N28.9] Diagnosis: FLU VACCINE[ICD10: Z23] Haylee PARKER [facility] CPT-4: 33335 06/17/2017 ([id number]) OFFICE/OUTPATIENT VISIT EST Diagnosis: Dysuria[ICD10: R30.0] Haylee PIPER [facility] CPT-4: 70750 05/21/2017 OFFICE/OUTPATIENT VISIT EST Diagnosis: Encounter for other specified special examinations[ICD10: Z01.89] Diagnosis: Disorder of kidney and ureter, unspecified[ICD10: N28.9] Diagnosis: Anemia, unspecified[ICD10: D64.9] Mayra Arguello TWIN PARK[employer] [facility] CPT-4: 59693 05/19/2017 ([id number]) OFFICE/OUTPATIENT VISIT EST Diagnosis: URI, ACUTE[ICD10: J06.9] Haylee STEPHENSONLINE [facility] CPT-4: 89951 02/24/2017 ([id number]) OFFICE/OUTPATIENT VISIT EST Diagnosis: Hypotension, unspecified[ICD10: I95.9] Diagnosis: Bradycardia, unspecified[ICD10: R00.1] Haylee PIPER DO [facility] CPT-4: 77362 01/01/2017 ([id number]) NO CHARGE Diagnosis: Chronic obstructive pulmonary disease with (acute) exacerbation[ICD10: J44.1] Diagnosis: Pneumonia, unspecified organism[ICD10: J18.9] Susie PIPER DO [facility] CPT-4: 84131 12/22/2016 OFFICE/OUTPATIENT VISIT EST Diagnosis: Pneumonia, unspecified organism[ICD10: J18.9] Diagnosis: Chronic obstructive pulmonary disease with (acute) exacerbation[ICD10: J44.1] Haylee PIPER DO [facility] CPT- 4: 67823 12/17/2016 OFFICE/OUTPATIENT VISIT EST Diagnosis: Pneumonia, unspecified organism[ICD10: J18.9] Diagnosis: Mild intermittent asthma with (acute) exacerbation[ICD10: J45.21] Diagnosis: Chronic obstructive pulmonary disease with (acute) exacerbation[ICD10: J44.1] Haylee PIPER [employer] [facility] CPT- 4: 87969 12/16/2016 ([id number]) OFFICE/OUTPATIENT VISIT EST Diagnosis: Mild intermittent asthma with (acute) exacerbation[ICD10: J45.21] Diagnosis: Pneumonia, unspecified organism[ICD10: J18.9] Haylee PIPER DO [facility] CPT-4: 47411 12/15/2016 ([id number]) OFFICE/OUTPATIENT VISIT EST Diagnosis: Acute bronchitis, unspecified[ICD10: J20.9] Diagnosis: Unspecified asthma with (acute) exacerbation[ICD10: J45.901] Susie PIPER [employer] [facility] CPT-4: 95448 12/11/2016 ([id number]) OFFICE/OUTPATIENT VISIT EST Diagnosis: Acute bronchitis, unspecified[ICD10: J20.9] Diagnosis: Unspecified asthma with (acute) exacerbation[ICD10: J45.901] Susie PIPER [employer] [facility] CPT-4: 32328 12/10/2016 ([id number]) OFFICE/OUTPATIENT VISIT EST Diagnosis: Chronic obstructive pulmonary disease with (acute) exacerbation[ICD10: J44.1] Diagnosis: Other spondylosis with radiculopathy, 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] Diagnosis: Other intervertebral disc degeneration, 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] Diagnosis: FLU VACCINE[ICD10: Z23] Haylee MARKHAM [facility] CPT-4: 25989 07/21/2016 ([id number]) OFFICE/OUTPATIENT VISIT EST Diagnosis: Unspecified open wound of right forearm, initial encounter[ICD10: S51.801A] Haylee Junbasiashahrzad PIPER [facility] CPT-4: 00167 05/30/2016 ([id number]) OFFICE/OUTPATIENT VISIT EST Diagnosis: Unspecified open wound of right forearm, initial encounter[ICD10: S51.801A] Susie Paniagua HAYLEE [employer] [facility] CPT-4: 28485 ([id number]) OFFICE/OUTPATIENT VISIT EST 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] Diagnosis: Mixed hyperlipidemia[ICD10: E78.2] Diagnosis: Other intervertebral disc degeneration, 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] Haylee Junbasiashahrzad [facility]AYLEE [facility]: 61547 03/18/2016 OFFICE/OUTPATIENT VISIT EST Diagnosis: Hypotension, unspecified[ICD10: I95.9] Diagnosis: Dizziness and giddiness[ICD10: R42] Haylee STACY [employer] [facility] CPT-4: 55585 10/18/2015 ([id number]) OFFICE/OUTPATIENT VISIT EST Diagnosis: Hypotension, unspecified[ICD10: I95.9] Haylee MCRAE [employer] [facility] CPT-4: 96733 10/17/2015 ([id number]) OFFICE/OUTPATIENT VISIT EST Diagnosis: Solitary pulmonary nodule[ICD10: R91.1] Diagnosis: Other spondylosis with radiculopathy, 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 [facility] CPT[facility]: 53319 04/25/2015 OFFICE/OUTPATIENT VISIT EST Diagnosis: DEPRESSIVE DISORDER NEC[ICD9: 311] Kat YoungNormatalataida [facility]: 56576 04/11/2015 ([id number]) OFFICE/OUTPATIENT VISIT EST Diagnosis: MALAISE AND FATIGUE[ICD9: 780.79] Diagnosis: Lumbar degenerative disc disease[ICD9: 722.52] Diagnosis: Leg weakness[ICD9: 729.89] Haylee Espinoza. [facility] CPT-4: 49132 02/27/2015 ([id number]) OFFICE/OUTPATIENT VISIT EST Diagnosis: Tremor[ICD9: 781.0] Diagnosis: Memory disturbance[ICD9: 780.93] [facility] CPT[facility]: 22959 02/08/2015 ([id number]) OFFICE/OUTPATIENT VISIT NEW Diagnosis: INSOMNIA NOS[ICD9: 780.52] Diagnosis: Lumbar degenerative disc disease[ICD9: 722.52] Diagnosis: Leg weakness[ICD9: 729.89] Diagnosis: DEPRESSIVE DISORDER NEC[ICD9: 311] Diagnosis: Coronary artery disease[ICD9: 414.00] Diagnosis: Peripheral vascular disease[ICD9: 443.9] Haylee [facility] CPT-4: 59486 01/18/2015 Plan of Care Planned Activity Notes Codes Status Date Visit Diagnosis Plan: Pancytopenia Discussion: Discuss ed options including hospice Patient has decided that he wants to proceed with oncology/hematology eval. so will try to arrange for that this week Once again discussed bleeding risks and reasons to seek immediate care ICD-9 : 284.19 ICD-10 : D61.818 10/10/2019 Appointment: Haylee Piper WPtel: [phone] [facility] LAB 10/10/2019 Appointment: Haylee Piper WPtel: [address] [place], [place] [phone] WORK IN 10/10/2019 Patient Education: [employer]- [employer] Coupon [id number] [email or web address] Completed 10/10/2019 Care Plan: COMPREHEN METABOLIC PANEL JAKUB [place] : 14017-5 Pending 10/06/2019 Care Plan: COMPLETE CBC W/AUTO DIFF WBC LOINC : 75928-4 Pending 10/06/2019 Visit Diagnosis Plan: Pancytopenia Discussion: CBC in 1 week Once again discussed hematology consult ICD-9 : 284.19 ICD-10 : D61.818 09/29/2019 Visit Diagnosis Plan: Chronic obstructive pulmonary di sease, unspecified Discussion: Restart Symbicort Start pulmonary rehab Use oxygen q HS and prn Use SVNs with abuterol at least QID ICD-9 : 496 ICD-10 : J44.9 09/29/2019 Appointment: Haylee Piper WPtel: [facility] Hospital Follow Up 09/29/2019 Visit Diagnosis Plan: Chronic obstructiv e pulmonary disease with (acute) exacerbation Discussion: Direct admit to hospital ICD-9 : 491.21 ICD-10 : J44.1 09/21/2019 Appointment: Haylee Piper WPtel: [address] [place], [place] [id number] [place] WORK IN 09/21/2019 Visit Diagnosis Plan: [...] : J44.0 09/20/2019 Appointment: Haylee Piper WPtel: [address] [place], [place] [phone] [place] WORK IN 09/20/2019 Visit Diagnosis Plan: COPD with exacerbation Discussio n: Solumedrol 125mg IM now SVNs with duoneb q4hrs Recheck tomorrow ICD-9 : 491.21 ICD-10 : J44.1 09/19/2019 Visit Diagnosis Plan: COPD with lower respiratory infe ction Discussion: Rocephin 1gm IM now Recheck tomorrow ICD-9 : 496 ICD-10 : J44.0 09/19/2019 Appointment: Haylee Piper WPtel: [address] [place], [place] [id number] [place] FOLLOW UP 09/19/2019 Appointment: Haylee Piper WPtel: [address] [place], [place] [id number] 09/02/19---moved him to a cancellation spot on [...] : D61.818 09/05/2019 Appointment: Haylee Piper WPtel: [address] [place], [place] [phone] [place] FOLLOW UP 09/05/2019 Patient Education: Lyrica- Optimize[employer] Coupon [id number] [email or web address]/resources/getResource/[email or web address] Completed 09/05/2019 Visit Diagnosis Plan: Vitamin B12 [...] ICD-10 : R26.81 08/29/2019 Appointment: Haylee Pipertel: [address] [place], [place] [phone] [place] MEDICATION REVIEW 08/29/2019 Appointment: Haylee Piper WPtel: [address] [place] [phone] [place] INJECTION 08/15/2019 Appointment: Haylee Piper WPtel: [address] [place] [phone] [place] INJECTION 08/01/2019 Appointment: Haylee Piper WPtel: [address] [place] [phone] [place] INJECTION 07/18/2019 Appointment: Haylee Piper WPtel: [address] [place] [phone] [place] INJECTION 07/04/2019 Appointment: Haylee Piper WPtel: [address] [place] [phone] [place] INJECTION 06/20/2019 Appointment: Haylee Piper WPtel: [address] [place] [phone] [place] INJECTION 06/06/2019 Appointment: Haylee Piper WPtel: [address] [place] [phone] [place] 06/02/19 1340---SENT REFILL OF B12 TO [...] : R53.83 05/23/2019 Appointment: Haylee Piper WPtel: [address] [place] [phone] [place] FOLLOW UP 05/23/2019 Appointment: Haylee Piper WPtel: [address] [place] [id number] [place] INJECTION 05/18/2019 Appointment: Haylee Piper WPtel: [address] [place] [id number] [place] INJECTION 05/04/2019 Appointment: Haylee Piper WPtel: [address] [place] [phone] [place] INJECTION 04/27/2019 Appointment: Haylee Piper WPtel: [address] [place] [phone] [place] INJECTION 04/20/2019 Appointment: Haylee Piper WPtel: [address] [place] [phone] [place] INJECTION 04/06/2019 Appointment: Haylee Piper WPtel: [address] [place] [phone] [place] INJECTION 03/23/2019 Visit Diagnosis Plan: Vitamin B12 deficiency anemia, u nspecified Discussion: Go to B12 every 2 weeks and fwup in 2mos ICD-9 : 281.1 ICD-10 : D51.9 03/17/2019 Visit Diagnosis Plan: Other intervertebral disc degene ration, lumbar region Discussion: Referral to Dr. Rajput for possible injection ICD-9 : 722.52 ICD-10 : M51.36 03/17/2019 Visit Diagnosis Plan: Vitamin D deficiency, unspecifie d Discussion: Continue current higher dose ICD-9 : 268.9 ICD-10 : E55.9 03/17/2019 Appointment: Haylee Piper WPtel: [address] [place] [phone] [place] lm FOLLOW UP 03/17/2019 Care Plan: Referral Order SNOMED-CT : [id number] Pending 03/17/2019 Appointment: Haylee Piper WPtel: [address] [place] [phone] [place] INJECTION 03/14/2019 Appointment: Haylee Piper WPtel: [address] [place] [phone] [place] INJECTION 03/07/2019 Appointment: Haylee Piper WPtel: [address] [place] [phone] [place] INJECTION 02/24/2019 Appointment: Haylee Piper WPtel: [address] [place] [phone] [place] INJECTION 02/16/2019 Visit Diagnosis Plan: Other spondylosis with radiculop athy, lumbosacral region Discussion: Hydrocodone rx given ICD-9 : 722.52 ICD-10 : M47.27 02/14/2019 Visit Diagnosis Plan: Other fatigue Discussion: Check CBC, TSH, Free T4, B12, Testosterone, iron/ferritin ICD-9 : 780.79 ICD-10 : R53.83 02/14/2019 Visit Diagnosis Plan: Vitamin D deficiency, unspecifie d Discussion: Check Vitamin D ICD-9 : 268.9 ICD-10 : E55.9 02/14/2019 Visit Diagnosis Plan: Hyperglycemia, unspecified Discu ssion: Check HbA1C ICD-9 : 790.29 ICD-10 : R73.9 02/14/2019 Visit Diagnosis Plan: Chronic obstructive pulmonary di sease, unspecified Discussion: Stable ICD-9 : 496 ICD-10 : J44.9 02/14/2019 Appointment: Haylee Piper WPtel: [address] [place] [address] FOLLOW UP 02/14/2019 Visit Diagnosis Plan: Hypoxemia [...] : J44.9 11/11/2018 Appointment: Haylee Piper WPtel: [address] [place] [phone] FOLLOW UP 11/11/2018 Visit Diagnosis Plan: Acute [...] ICD-10 : J20.9 10/29/2018 Appointment: Chula Balbuena [address] [place], [place] [id number] ACUTE ILLNESS 10/29/2018 Patient Education: prednisone- OptimizeRX Coupon [id number] [email or web address]://www.[email or web address]/samplemd/resources/getResource/61/[email or web address] Completed 10/29/2018 Visit Diagnosis Plan: Chronic obstructive pulmonary di sease, unspecified Discussion: Continue with Symbicort inhaler and rescue inhaler as needed. RTC with worsening symptoms, including development of fever and increased shortness of breath. Patient states understanding of all instruction. ICD-9 : 496 ICD-10 : J44.9 10/26/2018 Visit Diagnosis Plan: Acute bronchitis due to other sp ecified organisms Discussion: Solu-medrol 125 mg IM administered in clinic. Patient tolerated well. Patient education concerning increase in blood sugars temporarily with steroid injection. Doxycycline 100 mg BID x 10- take with food. Advise using nebulizer for wheezing and shortness of breath. Avoid hot, dry AIR. ICD-9 : 466.0 ICD-10 : J20.8 10/26/2018 Appointment: Chula Balbuena [address] [place] [place] Schedule medicare annual wellness ACUTE ILLNESS 10/26/2018 Patient Education: doxycycline hyclate- OptimizeRX Cou brooke [phone] https://www.[email or web address]/samplemd/resources/getResource/61/[email or web address] Completed 10/26/2018 Visit Diagnosis Plan: Cervicalgia Discussion: Add bacl ofen 20gm q HS routinely with tylenol XS 2po q HS routinely the next month and see how does ICD-9 : 723.1 ICD-10 : M54.2 08/11/2018 Visit Diagnosis Plan: Chronic obstructive pulmonary di sease, unspecified Discussion: Stable Following routinely with Dr. Quiros Using oxygen q HS routinely and getting ongoing benefit Follow Up: 3 months ICD-9 : 496 ICD-10 : J44.9 08/11/2018 Appointment: Haylee Piper WPtel: [address] [place] [id number] FOLLOW UP 08/11/2018 Appointment: Haylee Piper WPtel: [address] [facility] [place] INJECTION 06/23/2018 Patient Education: Patient Medication [...] : J20.9 06/17/2018 Appointment: Columba Curtis [address] [phone] ACUTE ILLNESS 06/17/2018 Patient Education: Patient Medication [...] : K29.00 06/11/2018 Appointment: Columba Curtis 504 [facility] ACUTE ILLNESS 06/11/2018 Patient Education: Patient Medication [...] : J20.9 05/18/2018 Appointment: Columba Curtis [address] [facility] FOLLOW UP 05/18/2018 Patient Education: Patient Medication Summary Completed 05/18/2018 Visit Diagnosis Plan: Acute bronchitis, unspecified Di scussion: rocephin and solumedrol given in office due to clinical s/s. gracie prescribed to start tomorrow. instructed to use albuterol treatments every 4 hours when at home and to wear oxygen at all times. increase fluid intake. follow up tomorrow for recheck of symptoms. ICD-9 : 466.0 ICD-10 : J20.9 05/17/2018 Visit Diagnosis Plan: Dizziness and giddiness Discussi on: discussed with patient that dizziness most likely r/t start of hydrocodone and decreased oxygen to brain. instructed to wear oxygen at all times during the day until feeling better. reduce amount of hydrocodone take to reduce the risk of falls. 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 Discussion: Following [...] 780.52 ICD-10 : F51.01 05/12/2018 Appointment: Haylee Pipertel: [address] [place] [phone] [place] FOLLOW UP 05/12/2018 Patient Education: Patient Medication Summary Completed 05/12/2018 Appointment: Haylee Piper WPtel: [address] [place] [phone] [place] CANCELED 09/21/2017 Visit Diagnosis Plan: Candidal [...] ICD-10 : B37.0 07/20/2017 Appointment: Columba Curtis [address] [place] [address] ACUTE ILLNESS 07/20/2017 Patient Education: Patient Medication [...] : B37.0 07/07/2017 Appointment: Haylee Piper WPtel: [address] [place], [place] [phone] FOLLOW UP 07/07/2017 Patient Education: Patient Medication Summary Completed 07/07/2017 Visit Diagnosis Plan: Localized edema Discussion: Star t lasix 20mg with potassium every other day and check Chem 7 in 2 weeks Flu shot given ICD-9 : 782.3 ICD-10 : R60.0 06/17/2017 Appointment: Haylee Piper WPtel: [address] [place] [phone] FOLLOW UP 06/17/2017 Patient Education: Patient Medication Summary Completed 06/17/2017 Appointment: Haylee Piper WPtel: [address] [place] [phone] UA 05/21/2017 Patient Education: Patient Medication Summary Completed 05/21/2017 Appointment: Haylee Piper WPtel: [address] [place] [phone] RESCHEDULED 05/20/2017 Visit Plan: Plan labs within the week CB C, CMP to check anemia, kidney status RTC in [address] Piper and for any worsening before that time. 05/19/2017 Appointment: Mayra Arguello WPtel: [phone] [facility] Hospital Follow Up 05/19/2017 Patient Education: Patient [...] Rest, Fluids... 02/24/2017 Appointment: Haylee Piper WPtel: [address] [place] [phone] WORK IN 02/24/2017 Patient Education: Patient Medication [...] : R00.1 01/01/2017 Appointment: Haylee Piper WPtel: [address] [place] [phone] Hospital Follow Up 01/01/2017 Patient Education: Patient Medication Summary Completed 01/01/2017 Visit Diagnosis Plan: Chronic obstructiv e pulmonary disease with (acute) exacerbation Discussion: Exam, vitals and patient fee ling better is reassuring Finish rxs previously given Continue nebs PRN Follow up PRN ICD-9 : 491.21 ICD-10 : J44.1 12/22/2016 Appointment: Susie Paniagua [address] [place], [place] [id number] FOLLOW UP 12/22/2016 Patient Education: Patient Medication [...] : J44.1 12/17/2016 Appointment: Haylee Piper WPtel: [address] [place] [address] [place] WORK IN 12/17/2016 Patient Education: Patient [...] : J18.9 12/16/2016 Appointment: Haylee Piper WPtel: [address] [place] [address] [place] WORK IN 12/16/2016 Patient Education: Patient [...] : J45.21 12/15/2016 Appointment: Haylee Piper WPtel: [address] [place] [phone] WORK IN 12/15/2016 Patient Education: Patient Medication [...] ICD-10 : J20.9 12/11/2016 Appointment: Susie Paniagua [address] [place], [place] [phone] FOLLOW UP 12/11/2016 Patient Education: Patient Medication Summary Completed 12/11/2016 Care Plan: CHEST X-RAY 2VW FRONTAL&LATL LOINC : 59353-8 Pending 12/11/2016 Care Plan: CBC Pending 12/11/2016 Visit Diagnosis Plan: Acute bronchitis, unspecified Di scussion: Injection in clinic today Continue proair Rxs as above Vicks, humidifier, etc Recheck tomorrow in clinic Will get CXR and labs if not starting to improve ICD-9 : 466.0 ICD-10 : J20.9 12/10/2016 Appointment: Susie Paniagua [address] [place] [address] ACUTE ILLNESS 12/10/2016 Patient Education: Patient Medication Summary Completed 12/10/2016 Visit Plan: Flu shot given Breo 100mcg 1 p BID for 2weeks with proair prn Notify if worsening or persists Fwup first part of October and sooner with needed 07/21/2016 Appointment: Haylee Piper WPtel: [address] [place] [phone] 07/17 confirmed~sl FOLLOW UP 07/21/2016 Patient Education: Patient Medication Summary Completed 07/21/2016 Visit Plan: GAUTAM Paniagua---wear esteban ssing through weekend and then take off to leave open to air 05/30/2016 Appointment: Haylee Piper WPtel: [address] [place] [phone] [place] Consult 05/30/2016 Patient Education: Patient Medication [...] shot until after tdap updated 05/29/2016 Appointment: Alexandra Paniaguafany [address] [place], [place] [id number] ACUTE ILLNESS 05/29/2016 Patient Education: Patient Medication Summary Completed 05/29/2016 Visit Plan: Continue current meds Patien t sees Dr. Eugene next week to see if would be surgical candidate 03/18/2016 Appointment: Haylee Piper WPtel: [address] [place] [id number] 03/17 confirmed ~sl FOLLOW UP 03/18/2016 Patient Education: Patient Medication Summary Completed 03/18/2016 Visit Plan: Continue to hold atenolol an d monitor BP Take 1/2 of atenolol if BP greater then 150/90 8-10 oz of gatorade daily for next week and hydrate unless develops edema BP check 1week 10/18/2015 Appointment: Haylee Piper WPtel: [address] [place] [id number] FOLLOW UP 10/18/2015 Patient Education: Patient Medication Summary Completed 10/18/2015 Visit Plan: Hold atenolol Hydrate, rest Refuses hospital but agrees will go to [facility] if worsens Recheck tomorrow Check CBC, CMP, CRP now 10/17/2015 Appointment: Haylee Pipertel: [address] [place] [phone] WORK IN 10/17/2015 Patient Education: Patient Medication Summary Completed 10/17/2015 Visit Plan: Check CT scan of lungs November 18 Change proair to ventolin Fw with Dr. Kilgore at end of month 10/10/2015 Appointment: Haylee Pipertel: [address] [place] [phone] [place] 10/09 confirmed~lb FOLLOW UP 10/10/2015 Patient Education: Patient Medication Summary Completed 10/10/2015 Visit Plan: Obtain CT scan of chest resu lts Discussed that will likely need repeat scan pending reviewing above results but we will notify him once CT scan results reviewed 08/30/2015 Appointment: Haylee Piper WPtel: [address] [place], [place] [phone] 08/29 appt confirmed cn Hospital Follow Up 08/30 Patient Education: Patient Medication Summary Completed 08/30/2015 Visit Plan: Continue dexilant and add Pe pcid 40mg q HS Discussed may need EGD Update thyroid US Flu shot given 06/25/2015 Appointment: Haylee Piper WPtel: [address] [place] [address] 06/22 confirmed ~sl FOLLOW UP 06/25/2015 Patient Education: Patient Medication Summary Completed 06/25/2015 Visit Plan: Continue Cymbalta at 120 mg PO daily Follow-up in 6 weeks Encouraged finding interest in a hobbie such as reading 04/25/2015 Appointment: Kat Carmona WPtel: [address] [place] [address] FOLLOW UP 04/25/2015 Patient Education: Patient Medication Summary Completed 04/25/2015 Visit Plan: Increase Cymbalta to 120 mg PO daily Follow-up in [address] Piper 04/11/2015 Appointment: Kat Carmona WPtel: [address] [place], [place] [id number] 04/09/2015 spoke with patient to make appointment FOLLOW UP 04/11/2015 Patient Education: Patient Medication Summary Completed 04/11/2015 Visit Plan: Continue Cymbalta, Neurontin Look out for tremor Discussed B12 supplement Given sample of Metanx 02/27/2015 Appointment: Haylee Piper WPtel: [address] [place], [place] [phone] 02/26 appt confirmed cn FOLLOW UP 02/28/20 [...] persist 02/08/2015 Appointment: Haylee Piper WPtel: [phone] [facility] FOLLOW UP 02/08/2015 Patient Education: Patient Medication Summary Completed 02/08/2015 Appointment: Haylee Piper WPtel: [phone] [facility] [place] NEW PATIENT 01/18/2015 Patient Education: Patient Medication Summary Completed 01/18/2015 Patient Education: [facility] - [employer] - Cymbalta - 18+ - Dynamic Portal ID Completed 01/18/2015 Referral: Vernon Rajput WPtel: [facility] [address] [place] Referral Appointment Requested Instructions Comment [...] [facility]uses hospital [facility] Recheck tomorrow Check CBC, CMP, [...]
[2020-02-05 15:22] LABS: BASOPHILS % (AUTO) 0 % (0-10); EOSINOPHILS # (AUTO) 0.1 10^3/uL (0.0-0.3); EOSINOPHILS % (AUTO) 2 % (0-10); HEMATOCRIT 30 % (40-54); HEMOGLOBIN 9.4 G/DL (13.3-17.7); LYMPHOCYTES # (AUTO) 0.5 X 10^3 (1.0-4.0); LYMPHOCYTES % (AUTO) 10 % (12-44); MEAN CORPUSCULAR HEMOGLOBIN 33 PG (25-34); MEAN CORPUSCULAR HGB CONC 32 G/DL (32-36); MEAN CORPUSCULAR VOLUME 103 FL (80-99); MONOCYTES # (AUTO) 0.6 X 10^3 (0.0-1.0); MONOCYTES % (AUTO) 12 % (0-12); NEUTROPHILS # (AUTO) 3.6 X 10^3 (1.8-7.8); NEUTROPHILS % (AUTO) 76 % (42-75); PLATELET COUNT 99 10^3/uL (130-400); RED CELL DISTRIBUTION WIDTH 20.6 % (10.0-14.5); WHITE BLOOD COUNT 4.7 10^3/uL (4.3-11.0)
[2020-02-05 15:31] LABS: ALBUMIN 3.4 GM/DL (3.2-4.5); CHLORIDE 99 MMOL/L (98-107); POTASSIUM 4.6 MMOL/L (3.6-5.0); SODIUM 133 MMOL/L (135-145)
--- OUTSIDE RECORDS SUMMARY | 2020-02-05 15:31 | XMS REPORT | Continuity of Care Document ---
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 12/25/2011 Ot 401.9 HYPE RTENSION NOS 12/25/2011 Ot 414.01 COR ONARY ATHEROSCLEROSIS OF [place] CORON 12/25/2011 Ot 433.10 CAR OTID ARTERY [...] Ot 455.0 INT HEMORRHOID W/O COMPL 04/27/2013 MERECDES SMART MD Ot 455.3 EXT HEMORRHOID W/O COMPL 04/27/2013 MERCEDES SMART MD Ot 562.10 DIVERTICULOSIS COLON (W/O MENT OF HEMORR 08/05/2013 TRIXIE MAHAJAN, VANDANA Diaz Ot 787.01 NAUSEA WITH VOMITING 08/05/2013 TRIXIE MAHAJAN, VANDANA Diaz Ot 787.91 DIARRHEA 08/05/2013 TRIXIE MAHAJAN, VANDANA Diaz Ot 789.00 ABDOMINAL PAIN, UNSPECIFIED SITE 11/05/2013 TRIXIE MAHAJAN, VANDANA iDaz Ot 787.91 DIARRHEA 01/23/2014 CATINA MAHAJAN, MAGDA S Ot 787.91 DIARRHEA 10/28/2014 Ot 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 10/28/2014 Ot 786.09 RES PIRATORY ABNORM NEC 12/06/2014 MERCEDES SMART MD Ot 211.4 BENIGN NEOPL RECTUM/ANUS 12/06/2014 MERCEDES SMART MD Ot 272.0 PURE HYPERCHOLESTEROLEM 12/06/2014 MERCEDES SMART MD Ot 401.9 HYPERTENSION NOS 12/06/2014 MERCEDES SMART MD Ot 414.01 CORONARY ATHEROSCLEROSIS OF [place] CORON 12/06/2014 MERCEDES SMART MD Ot 455.0 [...] MERCEDES Ot 789.00 12/08/2014 KYARA MAHAJAN [facility], [facility] CCDS Ot 414.01 12/08/2014 KYARA MAHAJAN FAC, [facility] CCDS Ot 786.50 12/08/2014 Ot [...] P Ot 241 .0 03/06/2015 TOYA MAHAJAN, JEROINMO P Ot V72.63 03/06/2015 TOYA MAHAJAN, JERONIMO P Ot V72.81 03/06/2015 TOYA MAHAJAN, JERONIMO Ball Ot V74 .8 03/06/2015 BING MAAHJAN, MERCEDES Ot V72.84 03/06/2015 BING MAHAJAN, MERCEDES Ot 787.91 03/06/2015 BING MAHAJAN, MERCEDES Ot 789.1 03/06/2015 BING MAHAJAN, MERCEDES Ot 787.3 03/06/2015 BING MAHAJAN, MERCEDES Ot 787.91 03/06/2015 BING MAHAJAN, MERCEDES Ot 789.00 03/06/2015 KYARA MAHAJAN [facility], [facility] CCDS Ot 414.01 03/06/2015 KYARA MAHAJAN FAC, [facility] CCDS Ot 786.50 03/06/2015 Ot 787.91 03/06/2015 [...] MERCEDES Ot 789.00 06/12/2015 KYARA MAHAJAN [facility], [facility] CCDS Ot 414.01 06/12/2015 KYARA DENSON, [facility] CCDS Ot 786.50 06/12/2015 Ot 787.91 06/12/2015 [...] MERCEDES Ot 789.00 06/22/2015 KYARA MAHAJAN [facility], ALI FACP CCDS Ot 414.01 06/22/2015 [...] CCDS Ot 414.01 06/27/2015 KYARA MAHAJAN [facility], [facility] CCDS Ot 786.50 06/27/2015 Ot 787.91 06/27/2015 CHENG FATIMA DO Ot 787.91 06/27/2015 Ot 787.91 06/27/2015 MERCEDES SMART MD Ot V72.84 07/02/2015 HAYLEE PIPER DO S Ot E04.1 07/02/2015 BAIMA, ERICK L SAP BPC DEVELOPER Ot E78.5 07/02/2015 BAIMA, ERICK L SAP BPC DEVELOPER Ot I 10 07/02/2015 BAIMA, ERICK L SAP BPC DEVELOPER Ot I25.10 07/02/2015 BAIMA, ERICK L SAP BPC DEVELOPER Ot I73.9 07/02/2015 BAIMA, ERICK L SAP BPC DEVELOPER Ot I77.9 07/02/2015 BAIMA, ERICK L SAP BPC DEVELOPER Ot R07.9 07/18/2015 HAYLEE PIPER DO S Ot E04.1 07/23/2015 BAIMA, ERICK L SAP BPC DEVELOPER Ot E78.5 07/23/2015 BAIMA, ERICK L SAP BPC DEVELOPER Ot I 10 07/23/2015 BAIMA, ERICK L SAP BPC DEVELOPER Ot I25.10 07/23/2015 BAIMA, ERICK L SAP BPC DEVELOPER Ot I73.9 07/23/2015 BAIMA, ERICK L SAP BPC DEVELOPER Ot I77.9 07/23/2015 BAIMA, ERICK L SAP BPC DEVELOPER Ot R07.9 07/30/2015 YAYA MARIE MD Ot M54. 5 07/30/2015 YAYA MARIE MD Ot M54. 6 08/02/2015 HAYLEE PIPER DO S Ot E04.1 08/02/2015 BAIMA, ERICK L SAP BPC DEVELOPER Ot E78.5 08/02/2015 BAIMA, ERICK L SAP BPC DEVELOPER Ot I 10 08/02/2015 BAIMA, ERICK L SAP BPC DEVELOPER Ot I25.10 08/02/2015 BAIMA, ERICK L SAP BPC DEVELOPER Ot I73.9 08/02/2015 BAIMA, ERICK L SAP BPC DEVELOPER Ot I77.9 08/02/2015 BAIMA, ERICK L SAP BPC DEVELOPER Ot R07.9 08/02/2015 BAIMA, ERICK L SAP BPC DEVELOPER Ot E78.5 08/02/2015 BAIMAERICK L SAP BPC DEVELOPER Ot I 10 08/02/2015 BAIMA, ERICK L SAP BPC DEVELOPER Ot I25.10 08/02/2015 BAIMA, ERICK L SAP BPC DEVELOPER Ot I73.9 08/02/2015 BAIMA, ERICK L SAP BPC DEVELOPER Ot I77.9 08/02/2015 BAIMA, ERICK L SAP BPC DEVELOPER Ot R07.9 08/02/2015 BAIMA, ERICK L SAP BPC DEVELOPER Ot E78.5 08/02/2015 BAIMA, ERICK L SAP BPC DEVELOPER Ot I 10 08/02/2015 BAIMA, ERICK L SAP BPC DEVELOPER Ot I25.10 08/02/2015 BAIMA, ERICK L SAP BPC DEVELOPER Ot I73.9 08/02/2015 BAIMA, ERICK L SAP BPC DEVELOPER Ot I77.9 08/02/2015 BAIMA, ERICK Lee SAP BPC DEVELOPER Ot R07.9 08/02/2015 HAYLEE PIPER DO Ot [...] 10/05/2015 YAYA MARIE MD, Ot Z79. 02 CAREERS ADVISER (CURRENT) USE OF ANTITHROMBOTI 10/05/2015 YAYA MARIE MD, Ot Z79.899 OTHER HALFWAY (CURRENT) DRUG THERAPY 10/19/2015 MELISSA LYNCH DO Ot F17.211 NICOTINE DEPENDENCE, CIGARETTES, IN [place] 10/19/2015 MELISSA LYNCH DO Ot I10 ESSENTIAL (PRIMARY) HYPERTENSION 10/19/2015 MELISSA LYNCH DO Ot J44.9 CHRONIC OBSTRUCTIVE PULMONARY DISEASE, U 12/11/2015 ERICK NASH SAP BPC DEVELOPER Ot E78.5 12/11/2015 BAIERICK FORTUNE SAP BPC DEVELOPER Ot I 10 12/11/2015 BAIERICK FORTUNE L SAP BPC DEVELOPER Ot I25.10 12/11/2015 BAIMAFLACOERICK L SAP BPC DEVELOPER Ot I73.9 12/11/2015 BAIMA ERICK L SAP BPC DEVELOPER Ot I77.9 12/11/2015 BAIMA ERICK L SAP BPC DEVELOPER Ot R07.9 12/11/2015 BAIMA ERICK L SAP BPC DEVELOPER Ot E78.5 12/11/2015 BAIMA ERICK L SAP BPC DEVELOPER Ot I 10 12/11/2015 BAIMA ERICK L SAP BPC DEVELOPER Ot I25.10 12/11/2015 BAIMAERICK L SAP BPC DEVELOPER Ot I73.9 12/11/2015 BAIMA ERICK L SAP BPC DEVELOPER Ot I77.9 12/11/2015 BAIMA ERICK L SAP BPC DEVELOPER Ot R07.9 12/11/2015 HAYLEE PIPER DO S Ot E04.1 12/11/2015 YAYA MARIE MD Ot M54. 5 12/11/2015 YAYA MARIE MD Ot M54. 6 12/11/2015 YAYA MARIE MD Ot M47.816 12/11/2015 YAYA MARIE MD Ot M51. 16 12/11/2015 YAYA MARIE MD Ot Z79.899 12/11/2015 LATRICIA ALVARES HOOP RIVETING MACHINE OPERATOR HELPER Ot M47.21 12/11/2015 LATRICIA ALVARES APRN Ot R91.1 12/11/2015 BAIERICK FORTUNE SAP BPC DEVELOPER Ot E78.5 12/11/2015 ERICK NASH SAP BPC DEVELOPER Ot I 10 12/11/2015 BAIERICK FORTUNE SAP BPC DEVELOPER Ot I25.10 12/11/2015 BAIERICK FORTUNE SAP BPC DEVELOPER Ot I73.9 12/11/2015 ERICK NASH SAP BPC DEVELOPER Ot I77.9 12/11/2015 ERICK NASH SAP BPC DEVELOPER Ot R07.9 12/11/2015 HAYLEE PIPER DO S Ot E04.1 12/11/2015 YAYA MARIE MD Ot M54. 5 12/11/2015 YAYA MARIE MD Ot M54. 6 12/11/2015 YAYA MARIE MD Ot M47.816 12/11/2015 YAYA MARIE MD Ot M51. 16 12/11/2015 YAYA MARIE MD Ot Z79.899 12/11/2015 LATRICIA ALVARES HOOP RIVETING MACHINE OPERATOR HELPER Ot M47.21 12/11/2015 LATRICIA ALVARES APRN Ot R91.1 12/11/2015 LATRICIA ALVARES HOOP RIVETING MACHINE OPERATOR HELPER Ot M47.21 12/11/2015 LATRICIA ALVARES APRN Ot R91.1 12/17/2015 YAYA MARIE MD Ot M47.816 SPONDYLOSIS W/O MYELOPATHY OR RADICULOPA 12/17/2015 YAYA MARIE MD Ot M51. 16 INTERVERTEBRAL DISC DISORDERS W RADICULO 12/17/2015 YAYA MARIE MD Ot Z79. 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, OCCIPT- 12/24/2015 ALTRICIA ALVARES Edwin HOOP RIVETING MACHINE OPERATOR HELPER Ot R91.1 SOLITARY PULMONARY NODULE 01/07/2016 LATRICIA [...] EXAMINATION 12/11/2016 JERONIMO PITTMAN MD Ot V72.81 [id number] CARDIOVASCULAR 12/11/2016 JERONIMO PITTMAN MD Ot V74 .8 SCREEN-BACTERIAL DIS NEC 12/11/2016 MERCEDES SMART MD Ot V72.84 EXAM PRE-OPERATIVE NOS 12/11/2016 MERCEDES SMART MD Ot 787.91 DIARRHEA 12/11/2016 MERCEDES SMART MD Ot 789.1 HEPATOMEGALY 12/11/2016 MERCEDES SMART MD Ot 787.3 FLATUL/ERUCTAT/GAS PAIN 12/11/2016 MERCEDES SMART MD Ot 787.91 DIARRHEA 12/11/2016 MERCEDES SMART MD Ot 789.00 ABDOMINAL PAIN, UNSPECIFIED SITE 12/11/2016 KYARA MAHAJAN [facility], [facility] CCDS Ot 414.01 CORONARY ATHEROSCLEROSIS OF [place] CORON 12/11/2016 KYARA MAHAJAN [facility], ALI MARK CCDS Ot 786.50 CHEST PAIN NOS 12/11/2016 Ot 787.91 GODFREY RRHEA 12/11/2016 GELCHENG RG DO Willian Ot 787.91 DIARRHEA 12/11/2016 Ot 787.91 GODFREY RRHEA 12/11/2016 MERCEDES SMART MD Ot V72.84 EXAM PRE-OPERATIVE NOS 12/11/2016 ERICK NASH SAP BPC DEVELOPER Ot E78.5 HYPERLIPIDEMIA, UNSPECIFIED 12/11/2016 ERICK NASH SAP BPC DEVELOPER Ot I 10 ESSENTIAL (PRIMARY) HYPERTENSION 12/11/2016 ERICK NASH SAP BPC DEVELOPER Ot I25.10 ATHSCL HEART DISEASE OF [place] CORONARY 12/11/2016 ERICK NASH SAP BPC DEVELOPER Ot I73.9 PERIPHERAL VASCULAR DISEASE, UNSPECIFIED 12/11/2016 BAIERICK FORTUNE SAP BPC DEVELOPER Ot I77.9 DISORDER OF ARTERIES AND ARTERIOLES, UNS 12/11/2016 ERICK NASH SAP BPC DEVELOPER Ot R07.9 CHEST PAIN, UNSPECIFIED 12/11/2016 HAYLEE [...] 12/11/2016 YAYA MARIE MD Ot Z79.899 OTHER CAREERS ADVISER (CURRENT) DRUG THERAPY 12/11/2016 LATRICIA ALVARES APRN Ot 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, OCCIPT- 12/11/2016 LATRICIA ALVARES APRN Ot R91.1 SOLITARY PULMONARY NODULE 12/16/2016 LATRICIA ALVARES APRN Ot R05 COUGH 12/16/2016 LATRICIA ALVARES HOOP RIVETING MACHINE OPERATOR HELPER Ot R09.89 OTH SYMPTOMS AND SIGNS INVOLVING THE CIR 12/19/2016 KYARA MAHAJAN [facility], [facility] CCDS Ot I25.10 ATHSCL HEART DISEASE OF [place] CORONARY 12/22/2016 KYARA MAHAJAN [facility], [facility] CCDS Ot I25.10 ATHSCL HEART DISEASE OF [place] CORONARY 12/26/2016 ORENDER DO, HAYLEE S Ot [...] EXAMINATION 12/30/2016 JERONIMO PITTMAN MD Ot V72.81 [id number] CARDIOVASCULAR 12/30/2016 JERONIMO PITTMAN MD Ot V74 [...] FACP CCDS Ot 414.01 CORONARY ATHEROSCLEROSIS OF [place] CORON 12/30/2016 KYARA MAHAJAN FAC, ALI FACP CCDS Ot 786.50 CHEST PAIN NOS 12/30/2016 Ot 787.91 GODFREY RRHEA 12/30/2016 CHENG FATIMA DO Ot 787.91 DIARRHEA 12/30/2016 Ot 787.91 GODFREY RRHEA 12/30/2016 MERCEDES SMART MD Ot V72.84 EXAM PRE-OPERATIVE NOS 12/30/2016 ERICK NASH SAP BPC DEVELOPER Ot E78.5 HYPERLIPIDEMIA, UNSPECIFIED 12/30/2016 ERICK NASH SAP BPC DEVELOPER Ot I 10 ESSENTIAL (PRIMARY) HYPERTENSION 12/30/2016 ERICK NASH SAP BPC DEVELOPER Ot I25.10 ATHSCL HEART DISEASE OF [place] CORONARY 12/30/2016 ERICK NASH SAP BPC DEVELOPER Ot I73.9 PERIPHERAL VASCULAR DISEASE, UNSPECIFIED 12/30/2016 ERICK NASH SAP BPC DEVELOPER Ot I77.9 DISORDER OF ARTERIES AND ARTERIOLES, UNS 12/30/2016 ERICK NASH SAP BPC DEVELOPER Ot R07.9 CHEST PAIN, UNSPECIFIED 12/30/2016 KEITHSHAHRZAD [...] 12/30/2016 YAYA MARIE MD Ot Z79.899 OTHER HALFWAY (CURRENT) DRUG THERAPY 12/30/2016 LATRICIA ALVARES HOOP RIVETING MACHINE OPERATOR HELPER Ot 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, OCCIPT- 12/30/2016 LATRICIA ALVARES HOOP RIVETING MACHINE OPERATOR HELPER Ot R91.1 SOLITARY PULMONARY NODULE 12/30/2016 LATRICIA ALVARES HOOP RIVETING MACHINE OPERATOR HELPER Ot R05 COUGH 12/30/2016 LATRICIA ALVARES HOOP RIVETING MACHINE OPERATOR HELPER Ot R09.89 OTH SYMPTOMS AND SIGNS INVOLVING THE CIR 12/30/2016 KYARA MAHAJAN FACC, ALI FACP CCDS Ot I25.10 ATHSCL HEART DISEASE OF [place] CORONARY 12/30/2016 KYARA MAHAJAN FACC, ALI FACP CCDS Ot I25.10 ATHSCL HEART DISEASE OF [place] CORONARY 12/30/2016 KYARA MAHAJAN FACC, ALI FACP CCDS Ot I25.10 ATHSCL HEART DISEASE OF [place] CORONARY 12/30/2016 KYARA MAHAJAN FACC, ALI FACP CCDS Ot I25.10 ATHSCL HEART DISEASE OF [place] CORONARY 12/31/2016 KYARA MAHAJAN FACC, ALI FACP CCDS Ot E78.4 OTHER HYPERLIPIDEMIA 12/31/2016 KYARA MAHAJAN FACC, ALI FACP CCDS Ot I10 ESSENTIAL (PRIMARY) HYPERTENSION 12/31/2016 KYARA MAHAJAN FACC, ALI FACP CCDS Ot I25.10 ATHSCL HEART DISEASE OF [place] CORONARY 12/31/2016 KYARA MAHAJAN FACC, ALI FACP CCDS Ot 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 12/31/2016 KYARA MAHAJAN FACC, ALI FACP CCDS Ot I70.213 ATHSCL [place] ARTERIES OF EXTRM W INTRMT 12/31/2016 KYARA MAHAJAN FACC, ALI FACP CCDS Ot J43.8 OTHER EMPHYSEMA 12/31/2016 KYARA MAHAJAN FACC, ALI FACP CCDS Ot R06.02 SHORTNESS OF BREATH 12/31/2016 KYARA MAHAJAN FACC, ALI FACP CCDS Ot Z87.891 PERSONAL HISTORY OF NICOTINE DEPENDENCE 01/07/2017 LATRICIA ALVARES HOOP RIVETING MACHINE OPERATOR HELPER Ot R05 COUGH 01/07/2017 LATRICIA ALVARES HOOP RIVETING MACHINE OPERATOR HELPER Ot R09.89 OTH SYMPTOMS AND SIGNS INVOLVING THE CIR 01/13/2017 LATRICIA ALVARES HOOP RIVETING MACHINE OPERATOR HELPER Ot R05 COUGH 01/13/2017 LATRICIA ALVARES HOOP RIVETING MACHINE OPERATOR HELPER Ot R09.89 OTH SYMPTOMS AND SIGNS INVOLVING THE CIR 01/16/2017 YAYA MARIE MD, Ot M51. 16 INTERVERTEBRAL DISC DISORDERS W RADICULO 01/16/2017 YAYA MARIE MD Ot M79. 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 01/21/2017 KYARA MAHAJAN FACC, ALI FACP CCDS Ot I70.213 ATHSCL [place] ARTERIES OF EXTRM W INTRMT 01/21/2017 KYARA [...] 01/21/2017 YAYA MARIE MD Ot Z79.899 OTHER HALFWAY (CURRENT) DRUG THERAPY 02/02/2017 KYARA DENSONC, ALI FACP CCDS Ot E78.4 OTHER HYPERLIPIDEMIA 02/02/2017 KYARA MAHAJAN FACC, ALI FACP CCDS Ot I10 ESSENTIAL (PRIMARY) HYPERTENSION 02/02/2017 KYARA MAHAJAN FACC, ALI FACP CCDS Ot I25.10 ATHSCL HEART DISEASE OF [place] CORONARY 02/02/2017 KYARA MAHAJAN FACC, ALI FACP CCDS Ot 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 02/02/2017 KYARA MAHAJAN FACC, ALI FACP CCDS Ot I70.213 ATHSCL [place] ARTERIES OF EXTRM W INTRMT 02/02/2017 KYARA MAHAJAN FAC, ALI [facility] CCDS Ot J43.8 OTHER EMPHYSEMA 02/02/2017 KYARA MAHAJAN FAC, [facility] CCDS Ot R06.02 SHORTNESS OF BREATH 02/02/2017 KYARA MAHAJAN FAC, [facility] Ot Z87.891 PERSONAL HISTORY OF NICOTINE DEPENDENCE 05/02/2017 ORENDER DO, HAYLEE S Ot E66.01 MORBID (SEVERE) OBESITY DUE TO EXCESS CA 05/02/2017 ORENDER DO, HAYLEE S Ot E86.0 DEHYDRATION 05/02/2017 ORENDER DO, HAYLEE S Ot I25.10 ATHSCL HEART DISEASE OF [place] CORONARY 05/02/2017 JUNNDER DO, HAYLEE S Ot [...] (SEVERE) OBESITY DUE TO EXCESS CA 05/02/2017 JUNBASIASHAHRZAD RESENDIZ HAYLEE S Ot E86.0 DEHYDRATION 05/02/2017 FELIZ RESENDIZ HAYLEE S Ot I25.10 ATHSCL HEART DISEASE OF [place] CORONARY 05/02/2017 FELIZ RESENDIZ HAYLEE S Ot [...] Ot R41.82 ALTERED MENTAL STATUS, UNSPECIFIED 05/02/2017 JUNBASIASHAHRZAD RESENDIZ HAYLEE S Ot R53.83 OTHER FATIGUE 05/02/2017 JUNBASIASHAHRZAD RESENDIZ HAYLEE S Ot R57.9 SHOCK, UNSPECIFIED [...] S Ot I25.10 ATHSCL HEART DISEASE OF [place] CORONARY 05/03/2017 FELIZ RESENDIZ HAYLEE S Ot I70.0 ATHEROSCLEROSIS OF [place] 05/03/2017 FELIZ RESENDIZ HAYLEE S Ot K55.1 CHRONIC [...] ADVERSE EFFECT OF OTHER OPIOIDS, INITIAL 05/03/2017 FELIZ RESENDIZ HAYLEE S Ot T40.4X5A ADVERSE EFFECT OF OTHER SYNTHETIC NARCOT 05/03/2017 JUNFRANCISCO RESENDIZ HAYLEE S Ot Z68.42 BODY MASS INDEX (BMI) 45.0-49.9, ADULT 05/03/2017 FELIZ RESENDIZ HAYLEE S Ot Z95.1 PRESENCE OF AORTOCORONARY BYPASS GRAFT 05/03/2017 KIETHSHAHRZAD RESENDIZ HAYLEE S Ot Z95.5 PRESENCE OF CORONARY ANGIOPLASTY IMPLANT 05/03/2017 SEEMA PIPER DOLINE S Ot Z98.890 OTHER SPECIFIED POSTPROCEDURAL STATES 05/04/2017 HAYLEE PIPER DO S Ot E66.01 MORBID (SEVERE) OBESITY DUE TO EXCESS CA 05/04/2017 FELIZ RESENDIZ HAYLEE S Ot E86.0 DEHYDRATION 05/04/2017 SEEMA PIPER DOLINE S Ot I25.10 ATHSCL HEART DISEASE OF [place] CORONARY 05/04/2017 FELIZ RESENDIZ HAYLEE S Ot [...] S Ot I25.10 ATHSCL HEART DISEASE OF [place] CORONARY 05/05/2017 SEEMA PIPER DOLINE S Ot I70.0 ATHEROSCLEROSIS OF [place] 05/05/2017 SEEMA PIPER DOLINE S Ot K55.1 CHRONIC [...] OF AORTOCORONARY BYPASS GRAFT 05/05/2017 FELIZ RESENDIZ HAYLEE S Ot Z95.5 PRESENCE OF CORONARY ANGIOPLASTY IMPLANT 05/05/2017 SEEMA PIPER DOLINE S Ot Z98.890 OTHER SPECIFIED POSTPROCEDURAL STATES 05/06/2017 SEEMA PIPER DOLINE S Ot E66.01 MORBID (SEVERE) OBESITY DUE TO EXCESS CA 05/06/2017 SEEMA PIPER DOLINE S Ot E86.0 DEHYDRATION 05/06/2017 SEEMA PIPER DOLINE S Ot I25.10 ATHSCL HEART DISEASE OF [place] CORONARY 05/06/2017 SEEMA PIPER DOLINE S Ot I70.0 ATHEROSCLEROSIS OF [place] 05/06/2017 SEEMA PIPER DOLINE S Ot K55.1 CHRONIC VASCULAR DISORDERS OF INTESTINE 05/06/2017 JUNNDSHAHRZAD RESENDIZ, HAYLEE S Ot M54.9 DORSALGIA, UNSPECIFIED [...] Ot R53.83 OTHER FATIGUE 05/06/2017 FELIZ RESENDIZ HAYLEE S Ot R57.9 SHOCK, UNSPECIFIED 05/06/2017 FELIZ RESENDIZ HAYLEE S Ot T40.2X5A ADVERSE [...] S Ot I25.10 ATHSCL HEART DISEASE OF [place] CORONARY 05/06/2017 JUNNDER DO, HAYLEE S Ot [...] SLEEP APNEA (ADULT) (PEDIATR 05/23/2017 MYRNA PANDYA HOOP RIVETING MACHINE OPERATOR HELPER Ot G47.33 OBSTRUCTIVE SLEEP APNEA (ADULT) (PEDIATR 05/24/2017 MYRNA PANDYA HOOP RIVETING MACHINE OPERATOR HELPER Ot G47.33 OBSTRUCTIVE SLEEP APNEA (ADULT) (PEDIATR 05/24/2017 MYRNA PANDYA HOOP RIVETING MACHINE OPERATOR HELPER Ot G47.50 PARASOMNIA, UNSPECIFIED 05/24/2017 MYRNA PANDYA HOOP RIVETING MACHINE OPERATOR HELPER Ot R09.02 HYPOXEMIA 05/25/2017 MYRNA PANDYA HOOP RIVETING MACHINE OPERATOR HELPER Ot G47.33 OBSTRUCTIVE SLEEP APNEA (ADULT) (PEDIATR 05/25/2017 MYRNA PANDYA HOOP RIVETING MACHINE OPERATOR HELPER Ot G47.50 PARASOMNIA, UNSPECIFIED 05/25/2017 MYRNA PANDYA APRN Ot R09.02 HYPOXEMIA 05/27/2017 KYARA DENSONC, ALI FACP CCDS Ot E78.4 OTHER HYPERLIPIDEMIA 05/27/2017 KYARA MAHAJAN FACC, ALI FACP CCDS Ot I10 ESSENTIAL (PRIMARY) HYPERTENSION 05/27/2017 KYARA MAHAJAN FACC, ALI FACP CCDS Ot I25.10 ATHSCL HEART DISEASE OF [place] CORONARY 05/27/2017 KYARA MAHAJAN FACC, ALI FACP [...] CCDS Ot I25.10 ATHSCL HEART DISEASE OF [place] CORONARY 05/27/2017 KYARA MAHAJAN FACC, ALI FACP [...] CCDS Ot I25.10 ATHSCL HEART DISEASE OF [place] CORONARY 06/16/2017 KYARA MAHAJAN FACC, ALI FACP [...] CCDS Ot I25.10 ATHSCL HEART DISEASE OF [place] CORONARY 06/29/2017 KYARA MAHAJAN FACC, ALI FACP [...] CCDS Ot I10 ESSENTIAL (PRIMARY) HYPERTENSION 06/29/2017 YKARA MAHAJAN FACC, ALI FACP CCDS Ot I25.10 ATHSCL HEART DISEASE OF [place] CORONARY 06/29/2017 KYARA MAHAJAN FACC, ALI FACP CCDS Ot 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 06/29/2017 KYARA MAHAJAN FACC, ALI FACP CCDS Ot I95.2 HYPOTENSION DUE TO DRUGS 06/29/2017 KYARA MAHAJAN FACC, ALI FACP CCDS Ot J43.8 OTHER EMPHYSEMA 07/08/2017 MYRNA PANDYA HOOP RIVETING MACHINE OPERATOR HELPER Ot J43.8 OTHER EMPHYSEMA 07/08/2017 MYRNA PANDYA HOOP RIVETING MACHINE OPERATOR HELPER Ot R09.02 HYPOXEMIA 07/27/2017 MYRNA PANDYA HOOP RIVETING MACHINE OPERATOR HELPER Ot J43.8 OTHER EMPHYSEMA 07/27/2017 MYRNA PANDYA APRN Ot R09.02 HYPOXEMIA 12/15/2017 Ot 241.0 NONT OX UNINODULAR GOITER 12/15/2017 Ot 719.45 SAIRA NT PAIN-PELVIS 12/15/2017 JERONIMO PITTMAN MD Ot 241 .0 NONTOX UNINODULAR GOITER 12/15/2017 JERONIMO PITTMAN MD Ot 241 .0 NONTOX UNINODULAR GOITER 12/15/2017 JERONIMO PITTMAN MD Ot V72.63 PRE-PROCEDURAL LABORATORY EXAMINATION 12/15/2017 JERONIMO PITTMAN MD Ot V72.81 [id number] CARDIOVASCULAR 12/15/2017 JERONIMO PITTMAN MD Ot V74 .8 SCREEN-BACTERIAL DIS NEC 12/15/2017 MERCEDES SMART MD Ot V72.84 EXAM PRE-OPERATIVE NOS 12/15/2017 BING MAHAJAN, MERCEDES Ot 787.91 DIARRHEA 12/15/2017 MERCEDES SMART MD Ot 789.1 HEPATOMEGALY 12/15/2017 MERCEDES SMART MD Ot 787.3 FLATUL/ERUCTAT/GAS PAIN 12/15/2017 MERCEDES SMART MD Ot 787.91 DIARRHEA 12/15/2017 MERCEDES SMART MD Ot 789.00 ABDOMINAL PAIN, UNSPECIFIED SITE 12/15/2017 KYARA MAHAJAN FAC, ALI FACP CCDS Ot 414.01 CORONARY ATHEROSCLEROSIS OF [place] CORON 12/15/2017 KYARA MAHAJAN FAC, ALI FACP CCDS Ot 786.50 CHEST PAIN NOS 12/15/2017 Ot 787.91 GODFREY RRHEA 12/15/2017 GELCHENG RG DO A Ot 787.91 DIARRHEA 12/15/2017 Ot 787.91 GODFREY RRHEA 12/15/2017 MERCEDES SMART MD Ot V72.84 EXAM PRE-OPERATIVE NOS 12/15/2017 ERICK NASH SAP BPC DEVELOPER Ot E78.5 HYPERLIPIDEMIA, UNSPECIFIED 12/15/2017 ERICK NASH L SAP BPC DEVELOPER Ot I 10 ESSENTIAL (PRIMARY) HYPERTENSION 12/15/2017 ERICK NASH SAP BPC DEVELOPER Ot I25.10 ATHSCL HEART DISEASE OF [place] CORONARY 12/15/2017 ERICK NASH SAP BPC DEVELOPER Ot I73.9 PERIPHERAL VASCULAR DISEASE, UNSPECIFIED 12/15/2017 ERICK NASH L SAP BPC DEVELOPER Ot I77.9 DISORDER OF ARTERIES AND ARTERIOLES, UNS 12/15/2017 ERICK NASH SAP BPC DEVELOPER Ot R07.9 CHEST PAIN, UNSPECIFIED 12/15/2017 KEITHSHAHRZAD [...] 12/15/2017 YAYA MARIE MD Ot Z79.899 OTHER CAREERS ADVISER (CURRENT) DRUG THERAPY 12/15/2017 LATRICIA ALVARES Edwin HOOP RIVETING MACHINE OPERATOR HELPER Ot 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, OCCIPT- 12/15/2017 NICOLASA ALVARESANTONIO Pineda HOOP RIVETING MACHINE OPERATOR HELPER Ot R91.1 SOLITARY PULMONARY NODULE 12/15/2017 LATRICIA ALVARES Edwin HOOP RIVETING MACHINE OPERATOR HELPER Ot R05 COUGH 12/15/2017 LATRICIA ALVARES Edwin HOOP RIVETING MACHINE OPERATOR HELPER Ot R09.89 OTH SYMPTOMS AND SIGNS INVOLVING THE CIR 12/15/2017 KYARA DENSONC, ALI FACP CCDS Ot E78.4 OTHER HYPERLIPIDEMIA 12/15/2017 KYARA DENSONC, ALI FACP CCDS Ot I10 ESSENTIAL (PRIMARY) HYPERTENSION 12/15/2017 KYARA MAHAJAN FACC, ALI FACP CCDS Ot I25.10 ATHSCL HEART DISEASE OF [place] CORONARY 12/15/2017 KYARA MAHAJAN FACC, ALI FACP CCDS Ot 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 12/15/2017 KYARA MAHAJAN FACC, ALI FACP CCDS Ot I70.213 ATHSCL [place] ARTERIES OF EXTRM W INTRMT 12/15/2017 KYARA DENSONC, ALI FACP CCDS Ot J43.8 OTHER EMPHYSEMA 12/15/2017 KYARA MAHAJAN FACC, ALI FACP CCDS Ot R06.02 SHORTNESS OF BREATH 12/15/2017 KYARA MAHAJAN FACC, ALI FACP CCDS Ot Z87.891 PERSONAL HISTORY OF NICOTINE DEPENDENCE 12/15/2017 MYRNA PANDYA HOOP RIVETING MACHINE OPERATOR HELPER Ot J43.8 OTHER EMPHYSEMA 12/15/2017 MYRNA PANDAY APRN Ot R09.02 HYPOXEMIA 12/15/2017 KYARA MAHAJAN FACC, ALI FACP CCDS Ot E78.4 OTHER HYPERLIPIDEMIA 12/15/2017 KYARA MAHAJAN FACC, ALI FACP CCDS Ot I10 ESSENTIAL (PRIMARY) HYPERTENSION 12/15/2017 KYARA MAHAJAN FACC, ALI FACP CCDS Ot I25.10 ATHSCL HEART DISEASE OF [place] CORONARY 12/15/2017 KYARA MAHAJAN FACC, ALI FACP [...] EXAMINATION 05/15/2018 JERONIMO PITTMAN MD Ot V72.81 [id number] CARDIOVASCULAR 05/15/2018 JERONIMO PITTMAN MD Ot V74 [...] FLORES CCDS Ot 414.01 CORONARY ATHEROSCLEROSIS OF [place] CORON 05/15/2018 KYARA MAHAJAN FACC, JIM FLORES CCDS Ot 786.50 CHEST PAIN NOS 05/15/2018 Ot 787.91 GODFREY RRHEA 05/15/2018 GELLENREID DO, CHENG A Ot 787.91 DIARRHEA 05/15/2018 Ot 787.91 GODFREY RRHEA 05/15/2018 MERCEDES SMART MD Ot V72.84 EXAM PRE-OPERATIVE NOS 05/15/2018 ERICK NASH SAP BPC DEVELOPER Ot E78.5 HYPERLIPIDEMIA, UNSPECIFIED 05/15/2018 ERICK NASH SAP BPC DEVELOPER Ot I 10 ESSENTIAL (PRIMARY) HYPERTENSION 05/15/2018 ERICK NASH SAP BPC DEVELOPER Ot I25.10 ATHSCL HEART DISEASE OF [place] CORONARY 05/15/2018 ERICK NASH SAP BPC DEVELOPER Ot I73.9 PERIPHERAL VASCULAR DISEASE, UNSPECIFIED 05/15/2018 ERICK NASH SAP BPC DEVELOPER Ot I77.9 DISORDER OF ARTERIES AND ARTERIOLES, UNS 05/15/2018 ERICK NASH SAP BPC DEVELOPER Ot R07.9 CHEST PAIN, UNSPECIFIED 05/15/2018 HAYLEE [...] 05/15/2018 YAYA MARIE MD Ot Z79.899 OTHER [place] (CURRENT) DRUG THERAPY 05/15/2018 LATRICIA ALVARES HOOP RIVETING MACHINE OPERATOR HELPER Ot 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, OCCIPT- 05/15/2018 LATRICIA ALVARES HOOP RIVETING MACHINE OPERATOR HELPER Ot R91.1 SOLITARY PULMONARY NODULE 05/15/2018 LATRICIA ALVARES HOOP RIVETING MACHINE OPERATOR HELPER Ot R05 COUGH 05/15/2018 LATRICIA ALVARES HOOP RIVETING MACHINE OPERATOR HELPER Ot R09.89 OTH SYMPTOMS AND SIGNS INVOLVING THE CIR 05/15/2018 KYARA MAHAJAN FACC, ALI FACP CCDS Ot E78.4 OTHER HYPERLIPIDEMIA 05/15/2018 KYARA MAHAJAN FACC, ALI FACP CCDS Ot I10 ESSENTIAL (PRIMARY) HYPERTENSION 05/15/2018 KYARA MAHAJAN FACC, ALI FACP CCDS Ot I25.10 ATHSCL HEART DISEASE OF [place] CORONARY 05/15/2018 KYARA MAHAJAN FACC, ALI FACP CCDS Ot 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 05/15/2018 KYARA MAHAJAN FACC, ALI FACP CCDS Ot I70.213 ATHSCL [place] ARTERIES OF EXTRM W INTRMT 05/15/2018 KYARA [...] E78.4 OTHER HYPERLIPIDEMIA 05/15/2018 KYARA MAHAJAN [facility], ALI FACP CCDS Ot I10 ESSENTIAL (PRIMARY) HYPERTENSION 05/15/2018 KYARA MAHAJAN [facility], ALI FACP CCDS Ot I25.10 ATHSCL HEART DISEASE OF [place] CORONARY 05/15/2018 KYARA MAHAJAN [facility], ALI FACP CCDS Ot 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 05/15/2018 KYARA MAHAJAN [facility], ALI FACP CCDS Ot I95.2 HYPOTENSION DUE TO DRUGS 05/15/2018 KYARA MAHAJAN [facility], ALI FACP CCDS Ot J43.8 OTHER EMPHYSEMA 05/15/2018 VANDANA MARCUM MD Ot D72.829 ELEVATED WHITE BLOOD CELL COUNT, UNSPECI 05/15/2018 VANDANA MARCUM MD Ot E78.00 PURE HYPERCHOLESTEROLEMIA, UNSPECIFIED 05/15/2018 VANDANA MARCUM MD Ot F32.9 MAJOR DEPRESSIVE DISORDER, SINGLE EPISOD 05/15/2018 VANDANA MARCUM MD Ot I10 ESSENTIAL (PRIMARY) HYPERTENSION 05/15/2018 VANDANA MARCUM MD Ot I25.10 ATHSCL HEART DISEASE OF [place] CORONARY 05/15/2018 VANDANA MARCUM MD Ot I73.9 PERIPHERAL VASCULAR DISEASE, UNSPECIFIED 05/15/2018 VANDANA MARCUM MD Ot J44.9 CHRONIC OBSTRUCTIVE PULMONARY DISEASE, U 05/15/2018 VANDANA MARCUM MD Ot K21.9 GASTRO-ESOPHAGEAL REFLUX DISEASE WITHOUT 05/15/2018 VANDANA MARCUM MD Ot M79.1 MYALGIA 05/15/2018 VANDANA MARCUM MD Ot R05 COUGH 05/15/2018 VANDANA MARCUM MD Ot R42 DIZZINESS AND GIDDINESS 05/15/2018 VANDANA MARCUM MD Ot Z79.51 CAREERS ADVISER (CURRENT) USE OF INHALED STERO 05/15/2018 VANDANA MARCUM MD Ot Z79.82 HALFWAY (CURRENT) USE OF ASPIRIN 05/15/2018 VANDANA MARCUM [...] MD, Ot I25.10 ATHSCL HEART DISEASE OF [place] CORONARY 05/18/2018 VANDANA MARCUM MD, Ot I73.9 PERIPHERAL VASCULAR DISEASE, UNSPECIFIED 05/18/2018 VANDANA MARCUM MD, Ot J44.9 CHRONIC OBSTRUCTIVE PULMONARY DISEASE, U 05/18/2018 VANDANA MARCUM MD, Ot K21.9 GASTRO-ESOPHAGEAL REFLUX DISEASE WITHOUT 05/18/2018 VANDANA MARCUM MD, Ot M79.1 MYALGIA 05/18/2018 VANDANA MARCUM MD, Ot R05 COUGH 05/18/2018 VANDANA MARCUM MD, Ot R42 DIZZINESS AND GIDDINESS 05/18/2018 VANDANA MARCUM MD, Ot Z79.51 HALFWAY (CURRENT) USE OF INHALED STERO 05/18/2018 VANDANA MARCUM MD, Ot Z79.82 HALFWAY (CURRENT) USE OF ASPIRIN 05/18/2018 VANDANA MARCUM [...] UNCOMPLICATED 03/18/2019 LULU LENZ MD Ot Z79.82 CAREERS ADVISER (CURRENT) USE OF ASPIRIN 03/18/2019 LULU LENZ MD Ot Z79.899 OTHER CAREERS ADVISER (CURRENT) DRUG THERAPY 03/18/2019 LULU LENZ MD [...] UNCOMPLICATED 03/28/2019 LULU LENZ MD Ot Z79.82 CAREERS ADVISER (CURRENT) USE OF ASPIRIN 03/28/2019 LULU LENZ MD Ot Z79.899 OTHER CAREERS ADVISER (CURRENT) DRUG THERAPY 03/28/2019 LULU LENZ MD Ot Z80 .3 FAMILY HISTORY OF MALIGNANT NEOPLASM OF 03/28/2019 LULU LENZ MD Ot Z87.891 PERSONAL HISTORY OF NICOTINE DEPENDENCE 09/24/2019 ORENDER DO, HAYLEE S Ot D61.818 OTHER PANCYTOPENIA 09/24/2019 ORENDER DO, HAYLEE S Ot E78.00 PURE HYPERCHOLESTEROLEMIA, UNSPECIFIED 09/24/2019 ORENDER DO, HAYLEE S Ot F32.9 MAJOR DEPRESSIVE DISORDER, SINGLE EPISOD 09/24/2019 ORENDER DO, HAYLEE S Ot I10 ESSENTIAL (PRIMARY) HYPERTENSION 09/24/2019 ORENDER DO, HAYLEE S Ot I25.10 ATHSCL HEART DISEASE OF [place] CORONARY 09/24/2019 ORENDER DO, HAYLEE S Ot [...] APRN Ot I25.10 ATHSCL HEART DISEASE OF [place] CORONARY 10/07/2019 YULIANA TEJADA APRN Ot J44 .9 CHRONIC OBSTRUCTIVE PULMONARY DISEASE, U 10/07/2019 YULIANA TEJADA APRN Ot K21 .9 GASTRO-ESOPHAGEAL REFLUX DISEASE WITHOUT 10/07/2019 YULIANA TEJADA APRN Ot R53 .1 WEAKNESS 10/07/2019 YULIANA TEJADA APRN Ot Z79.82 HALFWAY (CURRENT) USE OF ASPIRIN 10/07/2019 YULIANA TEJADA APRN Ot Z87.891 PERSONAL HISTORY OF NICOTINE DEPENDENCE 10/07/2019 YULIANA TEJADA APRN Ot Z88 .2 ALLERGY STATUS TO SULFONAMIDES STATUS 10/11/2019 YULIANA TEJADA APRN Ot D61.818 OTHER PANCYTOPENIA 10/11/2019 YULIANA TEJADA APRN Ot E78.00 PURE HYPERCHOLESTEROLEMIA, UNSPECIFIED 10/11/2019 YULIANA TEJADA APRN Ot F32 .9 MAJOR DEPRESSIVE DISORDER, SINGLE EPISOD 10/11/2019 YULIANA TEJADA APRN Ot I10 ESSENTIAL (PRIMARY) HYPERTENSION 10/11/2019 YULIANA TEJADA APRN Ot I25.10 ATHSCL HEART DISEASE OF [place] CORONARY 10/11/2019 YULIANA TEJADA APRN Ot J44 .9 CHRONIC OBSTRUCTIVE PULMONARY DISEASE, U 10/11/2019 YULIANA TEJADA APRN Ot K21 .9 GASTRO-ESOPHAGEAL REFLUX DISEASE WITHOUT 10/11/2019 YULIANA TEJADA APRN Ot R53 .1 WEAKNESS 10/11/2019 YULIANA TEJADA APRN Ot Z79.82 CAREERS ADVISER (CURRENT) USE OF ASPIRIN 10/11/2019 YULIANA TEJADA [...] NAPOLES Ot I25.10 ATHSCL HEART DISEASE OF [place] CORONARY 10/18/2019 CRISTINE NAPOLES Ot I73.9 PERIPHERAL VASCULAR DISEASE, UNSPECIFIED 10/18/2019 CRISTINE [place] Ot J44.9 CHRONIC OBSTRUCTIVE PULMONARY DISEASE, U 10/18/2019 CRISTINE NAP[place]ES Ot M47.9 SPONDYLOSIS, UNSPECIFIED 10/18/2019 CRISTINE NAPOLES Ot Z79.899 OTHER HALFWAY (CURRENT) DRUG THERAPY 10/18/2019 CRISTINE NAPOLES Ot [...] NAPOLES Ot I25.10 ATHSCL HEART DISEASE OF [place] CORONARY 10/26/2019 YESIKACRISTINE Ot I73.9 PERIPHERAL VASCULAR DISEASE, UNSPECIFIED 10/26/2019 CRISTINE [place]AP[place]ES Ot J44.9 CHRONIC OBSTRUCTIVE PULMONARY DISEASE, U 10/26/2019 CRISTINE [place]AP[place]ES Ot M47.9 SPONDYLOSIS, UNSPECIFIED 10/26/2019 YESIKACRISTINE Ot Z79.899 OTHER CAREERS ADVISER (CURRENT) DRUG THERAPY 10/26/2019 CRISTINE NAPOLES Ot [...] Edwin Ot I25.10 ATHSCL HEART DISEASE OF [place] CORONARY 10/27/2019 CRISTINE NAPOLES Edwin Ot I73.9 PERIPHERAL VASCULAR DISEASE, UNSPECIFIED 10/27/2019 CRISTINE NAPOLES Edwin Ot J44.9 CHRONIC OBSTRUCTIVE PULMONARY DISEASE, U 10/27/2019 CRISTINE NAPOLES Edwin Ot M47.9 SPONDYLOSIS, UNSPECIFIED 10/27/2019 CRISTINE NAPOLES Edwin Ot Z79.899 OTHER HALFWAY (CURRENT) DRUG THERAPY 10/27/2019 CRISTINE NAPOLES Edwin [...] hypertension Junnder, Haylee S. 10/28/2019 W J44.9 Yarn Salvager reyna obstructive pulmonary disease, unspecified Orender, Hyalee S. 10/28/2019 W D61.818 Pa ncytopenia Junnder, Haylee S. 10/28/2019 W J44.0 Yarn Salvager reyna obstructive pulmonary disease with acute lower respiratory infection Orendshahrzad Haylee S. 10/28/2019 W J44.1 Yarn Salvager reyna obstructive pulmonary disease with (acute) exacerbation Junnder, Haylee S. 10/28/2019 W J44.0 COPD with lower respiratory infection Seema Piperline S. 10/28/2019 W J44.1 COPD with exacerbation Seema Piperline S. 10/28/2019 W D61.818 Pa ncytopenia Karime Piperqueline S. 10/28/2019 W J44.9 Yarn Salvager reyna obstructive pulmonary disease, unspecified Junnder, Haylee S. 10/28/2019 W J44.1 Yarn Salvager reyna obstructive pulmonary disease with (acute) exacerbation Seema Piperline S. 11/02/2019 YESIKA, BOBAN N Ot D61.818 OTHER PANCYTOPENIA 11/02/2019 YESIKA, BOBAN N Ot E78.00 PURE HYPERCHOLESTEROLEMIA, UNSPECIFIED 11/02/2019 YESIKA, BOBAN N Ot F32.9 MAJOR DEPRESSIVE DISORDER, SINGLE EPISOD 11/02/2019 YESIKA, BOBAN N Ot I10 ESSENTIAL (PRIMARY) HYPERTENSION 11/02/2019 YESIKA, BOBAN N Ot I25.10 ATHSCL HEART DISEASE OF [place] CORONARY 11/02/2019 YESIKA, BOBAN N Ot J44.9 CHRONIC OBSTRUCTIVE PULMONARY DISEASE, U 11/02/2019 YESIKA, BOBAN N Ot Z79.82 CAREERS ADVISER (CURRENT) USE OF ASPIRIN 11/02/2019 YESIKA, BOBAN N Ot Z87.891 PERSONAL HISTORY OF NICOTINE DEPENDENCE 11/09/2019 YESIKA, BOBAN N Ot D61.818 OTHER PANCYTOPENIA 11/09/2019 YESIKA, BOBAN N Ot E78.00 PURE HYPERCHOLESTEROLEMIA, UNSPECIFIED 11/09/2019 YESIKA, BOBAN N Ot F32.9 MAJOR DEPRESSIVE DISORDER, SINGLE EPISOD 11/09/2019 YESIKA, BOBAN N Ot I10 ESSENTIAL (PRIMARY) HYPERTENSION 11/09/2019 YESIKA, BOBAN N Ot I25.10 ATHSCL HEART DISEASE OF [place] CORONARY 11/09/2019 YESIKA, BOBAN N Ot J44.9 CHRONIC OBSTRUCTIVE PULMONARY DISEASE, U 11/09/2019 YESIKA, BOBAN N Ot Z79.82 HALFWAY (CURRENT) USE OF ASPIRIN 11/09/2019 YESIKA, BOBAN N Ot Z87.891 PERSONAL HISTORY OF NICOTINE DEPENDENCE 11/09/2019 MERCEDES SMART MD Ot Z01.81 8 ENCOUNTER FOR OTHER PREPROCEDURAL EXAMIN 11/10/2019 ERICK NASH SAP BPC DEVELOPER Ot E78.5 HYPERLIPIDEMIA, UNSPECIFIED 11/10/2019 ERICK NASH SAP BPC DEVELOPER Ot I 10 ESSENTIAL (PRIMARY) HYPERTENSION 11/10/2019 ERICK NASH SAP BPC DEVELOPER Ot I25.10 ATHSCL HEART DISEASE OF [place] CORONARY 11/10/2019 ERICK NASH SAP BPC DEVELOPER Ot I73.9 PERIPHERAL VASCULAR DISEASE, UNSPECIFIED 11/10/2019 ERICK NASH SAP BPC DEVELOPER Ot I77.9 DISORDER OF ARTERIES AND ARTERIOLES, UNS 11/10/2019 ERICK NASH SAP BPC DEVELOPER Ot R07.9 CHEST PAIN, UNSPECIFIED 11/10/2019 FELIZ [...] 11/10/2019 YAYA MARIE MD Ot Z79.899 OTHER HALFWAY (CURRENT) DRUG THERAPY 11/10/2019 LATRICIA ALVARES APRN Ot 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, OCCIPT- 11/10/2019 LATRICIA ALVARES HOOP RIVETING MACHINE OPERATOR HELPER Ot R91.1 SOLITARY PULMONARY NODULE 11/10/2019 LATRICIA ALVARES HOOP RIVETING MACHINE OPERATOR HELPER Ot R05 COUGH 11/10/2019 LATRICIA ALVARES HOOP RIVETING MACHINE OPERATOR HELPER Ot R09.89 OTH SYMPTOMS AND SIGNS INVOLVING THE CIR 11/10/2019 KYARA MAHAJAN FACC, JIM DENSONP CCDS Ot E78.4 OTHER HYPERLIPIDEMIA 11/10/2019 KYARA MAHAJAN FACC, ALI FACP CCDS Ot I10 ESSENTIAL (PRIMARY) HYPERTENSION 11/10/2019 KYARA MAHAJAN FACC, JIM FACP CCDS Ot I25.10 ATHSCL HEART DISEASE OF [place] CORONARY 11/10/2019 KYARA MAHAJAN FACC, ALI FACP CCDS Ot 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 11/10/2019 KYARA MAHAJAN FACC, ALI FACP CCDS Ot I70.213 ATHSCL [place] ARTERIES OF EXTRM W INTRMT 11/10/2019 KYARA MAHAJAN [facility], ALI FACP CCDS Ot J43.8 OTHER EMPHYSEMA 11/10/2019 KYARA MAHAJAN [facility], ALI FACP CCDS Ot R06.02 SHORTNESS OF BREATH 11/10/2019 KYARA MAHAJAN [facility], ALI FACP CCDS Ot Z87.891 PERSONAL HISTORY OF NICOTINE DEPENDENCE 11/10/2019 MYRNA PANDYA APRN Ot J43.8 OTHER EMPHYSEMA 11/10/2019 MYRNA PANDYA HOOP RIVETING MACHINE OPERATOR HELPER Ot R09.02 HYPOXEMIA 11/10/2019 KYARA MAHAJAN [facility], ALI FACP CCDS Ot E78.4 OTHER HYPERLIPIDEMIA 11/10/2019 KYARA MAHAJAN [facility], ALI FACP CCDS Ot I10 ESSENTIAL (PRIMARY) HYPERTENSION 11/10/2019 KYARA MAHAJAN [facility], ALI FACP CCDS Ot I25.10 ATHSCL HEART DISEASE OF [place] CORONARY 11/10/2019 KYARA MAHAJAN [facility], ALI FACP CCDS Ot 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 11/10/2019 KYARA MAHAJAN [facility], ALI FACP CCDS Ot I95.2 HYPOTENSION DUE TO DRUGS 11/10/2019 KYARA MAHAJAN [facility], ALI FACP CCDS Ot J43.8 OTHER EMPHYSEMA 11/10/2019 CRISTINE NAPOLES Ot D61.818 OTHER PANCYTOPENIA 11/10/2019 CRISTINE NAPOLES Ot E78.00 PURE HYPERCHOLESTEROLEMIA, UNSPECIFIED 11/10/2019 CRISTINE NAPOLES Ot F32.9 MAJOR DEPRESSIVE DISORDER, SINGLE EPISOD 11/10/2019 CRISTINE NAPOLES Ot I10 ESSENTIAL (PRIMARY) HYPERTENSION 11/10/2019 CRISTINE NAPOLES Ot I25.10 ATHSCL HEART DISEASE OF [place] CORONARY 11/10/2019 CRISTINE NAPOLES Ot J44.9 CHRONIC OBSTRUCTIVE PULMONARY DISEASE, U 11/10/2019 CRISTINE NAPOLES Ot Z79.82 CAREERS ADVISER (CURRENT) USE OF ASPIRIN 11/10/2019 CRISTINE NAPOLES [...] MD Ot I25.10 ATHSCL HEART DISEASE OF [place] CORONARY 11/10/2019 MERCEDES SMART MD Ot J43.9 [...] 11/10/2019 MERCEDES SMART MD Ot Z79.89 1 CAREERS ADVISER (CURRENT) USE OF OPIATE ANALGE 11/10/2019 MERCEDES SMART MD Ot Z79.89 9 OTHER HALFWAY (CURRENT) DRUG THERAPY 11/10/2019 MERCEDES SMART MD [...] MD Ot I25.10 ATHSCL HEART DISEASE OF [place] CORONARY 11/16/2019 MERCEDES SMART MD, Ot J43.9 [...] 11/16/2019 MERCEDES SMART MD, Ot Z79.89 1 CAREERS ADVISER (CURRENT) USE OF OPIATE ANALGE 11/16/2019 MERCEDES SMART MD, Ot Z79.89 9 OTHER HALFWAY (CURRENT) DRUG THERAPY 11/16/2019 MERCEDES SMART MD, [...] NAPOLES Ot I25.10 ATHSCL HEART DISEASE OF [place] CORONARY 11/26/2019 CRISTINE NAPOLES Ot J44.9 CHRONIC OBSTRUCTIVE PULMONARY DISEASE, U 11/26/2019 CRISTINE NAPOLES Ot Z79.82 CAREERS ADVISER (CURRENT) USE OF ASPIRIN 11/26/2019 CRISTINE NAPOLES Ot Z87.891 PERSONAL HISTORY OF NICOTINE DEPENDENCE 2019 ORENDER DO, HAYLEE S Ot 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, UNSPECIFIED 2019 ORENDER DO, HAYLEE S Ot D61.818 OTHER PANCYTOPENIA 2019 ORENDER DO, HAYLEE S Ot E78.00 PURE HYPERCHOLESTEROLEMIA, UNSPECIFIED 2019 ORENDER DO, HAYLEE S Ot E86.0 [facility]DRATION [facility] S Ot F32.9 MAJOR DEPRESSIVE DISORDER, SINGLE EPISOD 2019 [facility], HAYLEE S Ot G89.29 OTHER CHRONIC PAIN 2019 [facility], HAYLEE S Ot I10 ESSENTIAL (PRIMARY) HYPERTENSION 2019 [facility] HAY[facility]E S Ot I25.10 ATHSCL HEART DISEASE OF [place] CORONARY 2019 [facility], HAYLEE S Ot I95.9 HYPOTENSION, UNSPECIFIED 2019 [facility], HAYLEE S Ot J44.9 CHRONIC OBSTRUCTIVE PULMONARY DISEASE, U 2019 OREND DO, HAYLEE S Ot K21.9 GASTRO-ESOPHAGEAL REFLUX DISEASE WITHOUT 2019 OREND DO, HAYLEE S Ot K59.00 CONSTIPATION, UNSPECIFIED 2019 [facility], HAYLEE S Ot M19.90 UNSPECIFIED OSTEOARTHRITIS, UNSPECIFIED 2019 [facility], HAYLEE S Ot 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, UNSP C 2019 [facility], HAYLEE S Ot M51.36 OTHER INTERVERTEBRAL DISC DEGENERATION, 2019 [facility], HAYLEE S Ot M54.9 DORSALGIA, UNSPECIFIED 2019 [facility], HAYLEE S Ot R55 SYNCOPE AND COLLAPSE 2019 [facility], HAYLEE S Ot Z79.891 HALFWAY (CURRENT) USE OF OPIATE ANALGE 2019 [facility] S Ot Z79.899 OTHER CAREERS ADVISER (CURRENT) DRUG THERAPY 2019 [facility], HAYLEE S Ot Z87.891 PERSONAL HISTORY OF NICOTINE DEPENDENCE 2019 [facility], HAYLEE S Ot Z88.2 ALLERGY STATUS TO SULFONAMIDES STATUS 2019 [facility], HAYLEE S Ot 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, UNSPECIFIED 2019 [facility], HALYEE S Ot D61.818 OTHER PANCYTOPENIA 2019 [facility] , HAYLEE S Ot E78.00 PURE HYPERCHOLESTEROLEMIA, UNSPECIFIED 2019 ORENDER DO, HAYLEE S Ot E86.0 DEHYDRATION 2019 ORENDER DO, HAYLEE S Ot F32.9 MAJOR DEPRESSIVE DISORDER, SINGLE EPISOD 2019 ORENDER DO, HAYLEE S Ot G89.29 OTHER CHRONIC PAIN 2019 ORENDER DO, HAYLEE S Ot I10 ESSENTIAL (PRIMARY) HYPERTENSION 2019 ORENDER DO, HAYLEE S Ot I25.10 ATHSCL HEART DISEASE OF [place] CORONARY 2019 ORENDER DO, HAYLEE S Ot I95.9 HYPOTENSION, UNSPECIFIED 2019 ORENDER DO, HAYLEE S Ot J44.9 CHRONIC OBSTRUCTIVE PULMONARY DISEASE, U 2019 ORENDER DO, HAYLEE S Ot K21.9 GASTRO-ESOPHAGEAL REFLUX DISEASE WITHOUT 2019 ORENDER DO, HAYLEE S Ot K59.00 CONSTIPATION, UNSPECIFIED 2019 ORENDER DO, HAYLEE S Ot M19.90 UNSPECIFIED OSTEOARTHRITIS, UNSPECIFIED 2019 ORENDER DO, HAYLEE S Ot 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, UNSP C 2019 ORENDER DO, HAYLEE S Ot M51.36 OTHER INTERVERTEBRAL DISC DEGENERATION, 2019 ORENDER DO, HAYLEE S Ot M54.9 DORSALGIA, UNSPECIFIED 2019 ORENDER DO, HAYLEE S Ot R55 SYNCOPE AND COLLAPSE 2019 ORENDER DO, HAYLEE S Ot Z79.891 HALFWAY (CURRENT) USE OF OPIATE ANALGE 2019 ORENDER DO, HAYLEE S Ot Z79.899 OTHER CAREERS ADVISER (CURRENT) DRUG THERAPY 2019 ORENDER DO, HAYLEE S Ot Z87.891 PERSONAL HISTORY OF NICOTINE DEPENDENCE 2019 ORENDER DO, HAYLEE S Ot Z88.2 ALLERGY STATUS TO SULFONAMIDES STATUS 12/16/2019 TRIXIE MAHAJAN, VANDANA Diaz Ot 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, UNSPECIFIED 12/16/2019 TRIXIE MAHAJAN, VANDANA Diaz Ot E78.00 PURE HYPERCHOLESTEROLEMIA, UNSPECIFIED 12/16/2019 VANDANA MARCUM MD Ot F32.9 MAJOR DEPRESSIVE DISORDER, SINGLE EPISOD 12/16/2019 VANDANA MARCUM MD Ot I10 ESSENTIAL (PRIMARY) HYPERTENSION 12/16/2019 VANDANA MARCUM MD Ot I25.10 ATHSCL HEART DISEASE OF [place] CORONARY 12/16/2019 VANDANA MARCUM MD Ot J44.9 CHRONIC OBSTRUCTIVE PULMONARY DISEASE, U 12/16/2019 VANDANA MARCUM MD Ot K21.9 GASTRO-ESOPHAGEAL REFLUX DISEASE WITHOUT 12/16/2019 VANDANA MARCUM MD Ot R04.0 EPISTAXIS 12/16/2019 VANDANA MARCUM MD Ot Z85.830 PERSONAL HISTORY OF MALIGNANT NEOPLASM O 12/16/2019 VANDANA MARCUM MD Ot Z87.891 PERSONAL HISTORY OF NICOTINE DEPENDENCE 12/16/2019 VANDANA MARCUM MD Ot Z88.2 ALLERGY STATUS TO SULFONAMIDES STATUS 12/16/2019 VANDANA MARCUM MD Ot Z95.5 PRESENCE OF CORONARY ANGIOPLASTY IMPLANT 12/19/2019 VANDANA MARCUM MD Ot 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, UNSPECIFIED 12/19/2019 VANDANA MARCUM MD Ot E78.00 PURE HYPERCHOLESTEROLEMIA, UNSPECIFIED 12/19/2019 VANDANA MARCUM MD Ot F32.9 MAJOR DEPRESSIVE DISORDER, SINGLE EPISOD 12/19/2019 VANDANA MARCUM MD Ot I10 ESSENTIAL (PRIMARY) HYPERTENSION 12/19/2019 VANDANA MARCUM MD Ot I25.10 ATHSCL HEART DISEASE OF [place] CORONARY 12/19/2019 VANDANA MARCUM MD Ot J44.9 CHRONIC OBSTRUCTIVE PULMONARY DISEASE, U 12/19/2019 VANDANA MARCUM MD Ot K21.9 GASTRO-ESOPHAGEAL REFLUX DISEASE WITHOUT 12/19/2019 VANDANA MARCUM MD Ot R04.0 EPISTAXIS 12/19/2019 VANDANA MARCUM MD Ot Z85.830 PERSONAL HISTORY OF MALIGNANT NEOPLASM O 12/19/2019 VANDANA MARCUM MD Ot Z87.891 PERSONAL HISTORY OF NICOTINE DEPENDENCE 12/19/2019 TRIXIE MAHAJAN, VANDANA Diaz Ot Z88.2 ALLERGY STATUS TO SULFONAMIDES STATUS 12/19/2019 TRIXIE MAHAJAN, VANDANA Diaz Ot Z95.5 PRESENCE OF CORONARY ANGIOPLASTY IMPLANT 12/22/2019 CRISTINE NAPOLES N Ot D61.818 OTHER PANCYTOPENIA 12/22/2019 CRISTINE NAPOLES N Ot E78.00 PURE HYPERCHOLESTEROLEMIA, UNSPECIFIED 12/22/2019 YESIKA CRISTINE N Ot F32.9 MAJOR DEPRESSIVE DISORDER, SINGLE EPISOD 12/22/2019 YESIKA BOBBRANDON N Ot I10 ESSENTIAL (PRIMARY) HYPERTENSION 12/22/2019 YESIKA, CRISTINE N Ot I25.10 ATHSCL HEART DISEASE OF [place] CORONARY 12/22/2019 YESIKA CRISTINE N Ot J44.9 CHRONIC OBSTRUCTIVE PULMONARY DISEASE, U 12/22/2019 CRISTINE NAPOLES N Ot Z79.82 CAREERS ADVISER (CURRENT) USE OF ASPIRIN 12/22/2019 CRISTINE NAPOLES N Ot Z87.891 PERSONAL HISTORY OF NICOTINE DEPENDENCE 01/04/2020 W 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 01/10/2020 CRISTINE NAPOLES N Ot D61.818 OTHER PANCYTOPENIA 01/10/2020 YESIKA, CRISTINE N Ot E78.00 PURE HYPERCHOLESTEROLEMIA, UNSPECIFIED 01/10/2020 CRISTINE NAPOLES N Ot F32.9 MAJOR DEPRESSIVE DISORDER, SINGLE EPISOD 01/10/2020 YESIKA BOBBRANDON N Ot I10 ESSENTIAL (PRIMARY) HYPERTENSION 01/10/2020 YESIKA BOBBRANDON N Ot I25.10 ATHSCL HEART DISEASE OF [place] CORONARY 01/10/2020 CRISTINE NAPOLES N Ot J44.9 CHRONIC OBSTRUCTIVE PULMONARY DISEASE, U 01/10/2020 YESIKA BOBBRANDON N Ot Z79.82 CAREERS ADVISER (CURRENT) USE OF ASPIRIN 01/10/2020 YESIKA BOBAN N Ot Z87.891 PERSONAL HISTORY OF NICOTINE DEPENDENCE 01/12/2020 YESIKA, BOBAN N Ot D61.818 OTHER PANCYTOPENIA 01/12/2020 YESIKA, BOBAN N Ot E78.00 PURE HYPERCHOLESTEROLEMIA, UNSPECIFIED 01/12/2020 CRISTINE NAPOLES N Ot F32.9 MAJOR DEPRESSIVE DISORDER, SINGLE EPISOD 01/12/2020 CRISTINE NAPOLES N Ot I10 ESSENTIAL (PRIMARY) HYPERTENSION 01/12/2020 CRISTINE NAPOLES N Ot I25.10 ATHSCL HEART DISEASE OF [place] CORONARY 01/12/2020 CRISTINE NAPOLES N Ot J44.9 CHRONIC OBSTRUCTIVE PULMONARY DISEASE, U 01/12/2020 CRISTINE NAPOLES N Ot Z79.82 CAREERS ADVISER (CURRENT) USE OF ASPIRIN 01/12/2020 CRISTINE NAPOLES N Ot Z87.891 PERSONAL HISTORY OF NICOTINE DEPENDENCE 01/12/2020 CRISTINE NAPOLES N Ot D61.818 OTHER PANCYTOPENIA 01/12/2020 CRISTINE NAPOLES N Ot E78.00 PURE HYPERCHOLESTEROLEMIA, UNSPECIFIED 01/12/2020 CRISTINE NAPOLES N Ot F32.9 MAJOR DEPRESSIVE DISORDER, SINGLE EPISOD 01/12/2020 CRISTINE NAPOLES N Ot I10 ESSENTIAL (PRIMARY) HYPERTENSION 01/12/2020 CRISTINE NAPLOES N Ot I25.10 ATHSCL HEART DISEASE OF [place] CORONARY 01/12/2020 CRISTINE NAPOLES N Ot J44.9 CHRONIC OBSTRUCTIVE PULMONARY DISEASE, U 01/12/2020 CRISTINE NAPOLES N Ot Z79.82 CAREERS ADVISER (CURRENT) USE OF ASPIRIN 01/12/2020 CRISTINE NAPOLES N Ot Z87.891 PERSONAL HISTORY OF NICOTINE DEPENDENCE 01/12/2020 BAIMA, ERICK L SAP BPC DEVELOPER Ot E78.5 HYPERLIPIDEMIA, UNSPECIFIED 01/12/2020 BAIMA, ERICK L SAP BPC DEVELOPER Ot I 10 ESSENTIAL (PRIMARY) HYPERTENSION 01/12/2020 BAIMA, ERICK L SAP BPC DEVELOPER Ot I25.10 ATHSCL HEART DISEASE OF [place] CORONARY 01/12/2020 BAIMA, ERICK L SAP BPC DEVELOPER Ot I73.9 PERIPHERAL VASCULAR DISEASE, UNSPECIFIED 01/12/2020 BAIMA, ERICK L SAP BPC DEVELOPER Ot I77.9 DISORDER OF ARTERIES AND ARTERIOLES, UNS 01/12/2020 BAIMA, ERICK L SAP BPC DEVELOPER Ot R07.9 CHEST PAIN, UNSPECIFIED 01/12/2020 HAYLEE PIPER DO S Ot E04.1 NONTOXIC SINGLE THYROID NODULE 01/12/2020 FRANK MAHAJAN, YAYA Moreno Ot M54. 5 LOW BACK PAIN 01/12/2020 YAYA MARIE MD Ot M54. 6 PAIN IN THORACIC SPINE 01/12/2020 YAYA MARIE MD Ot M47.816 SPONDYLOSIS W/O MYELOPATHY OR RADICULOPA 01/12/2020 YAYA MARIE MD Ot M51. 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, OCCIPT- 01/12/2020 LATRICIA ALVARES HOOP RIVETING MACHINE OPERATOR HELPER Ot R91.1 SOLITARY PULMONARY NODULE 01/12/2020 LATRICIA ALVARES HOOP RIVETING MACHINE OPERATOR HELPER Ot R05 COUGH 01/12/2020 LATRICIA ALVARES HOOP RIVETING MACHINE OPERATOR HELPER Ot R09.89 OTH SYMPTOMS AND SIGNS INVOLVING THE CIR 01/12/2020 KYARA MAHAJAN FACC, ALI FACP CCDS Ot E78.4 OTHER HYPERLIPIDEMIA 01/12/2020 KYARA MAHAJAN FACC, ALI FACP CCDS Ot I10 ESSENTIAL (PRIMARY) HYPERTENSION 01/12/2020 KYARA DENSONC, ALI FACP CCDS Ot I25.10 ATHSCL HEART DISEASE OF [place] CORONARY 01/12/2020 KYARA DENSONC, ALI FACP CCDS Ot 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 01/12/2020 KYARA MAHAJAN FACC, ALI FACP CCDS Ot I70.213 ATHSCL [place] ARTERIES OF EXTRM W INTRMT 01/12/2020 KYARA MAHAJAN FACC, ALI FACP CCDS Ot J43.8 OTHER EMPHYSEMA 01/12/2020 KYARA MAHAJAN FACC, ALI FACP CCDS Ot R06.02 SHORTNESS OF BREATH 01/12/2020 KYARA MAHAJAN FACC, ALI FACP CCDS Ot Z87.891 PERSONAL HISTORY OF NICOTINE DEPENDENCE 01/12/2020 MYRNA PANDYA APRN Ot J43.8 OTHER EMPHYSEMA 01/12/2020 MYRNA PANDYA APRN Ot R09.02 HYPOXEMIA 01/12/2020 KYARA MAHAJAN FACC, ALI FACP CCDS Ot E78.4 OTHER HYPERLIPIDEMIA 01/12/2020 KYARA MAHAJAN FACC, ALI FACP CCDS Ot I10 ESSENTIAL (PRIMARY) HYPERTENSION 01/12/2020 KYARA MAHAJAN FACC, ALI FACP CCDS Ot I25.10 ATHSCL HEART DISEASE OF [place] CORONARY 01/12/2020 KYARA MAHAJAN [facility], ALI FACP CCDS Ot 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 01/12/2020 KYARA MAHAJAN [facility], [facility]I [facility] Ot I95.2 HYPOTENSION DUE TO DRUGS 01/12/2020 KYARA MAHAJAN FACC, ALI [facility] CCD[facility] Ot J43.8 OTHER EMPHYSEMA 01/12/2020 YESIKA, CRISTINE N Ot D61.818 OTHER PANCYTOPENIA 01/12/2020 YESIKA, BOBAN N Ot E78.00 PURE HYPERCHOLESTEROLEMIA, UNSPECIFIED 01/12/2020 YESIKA, BOBAN N Ot F32.9 MAJOR DEPRESSIVE DISORDER, SINGLE EPISOD 01/12/2020 YESIKA, BOBAN N Ot I10 ESSENTIAL (PRIMARY) HYPERTENSION 01/12/2020 YESIKA BOBAN N Ot I25.10 ATHSCL HEART DISEASE OF [place] CORONARY 01/12/2020 CRISTINE NAPOLES N Ot J44.9 CHRONIC OBSTRUCTIVE PULMONARY DISEASE, U 01/12/2020 YESIKACRISTINE N Ot Z79.82 HALFWAY (CURRENT) USE OF ASPIRIN 01/12/2020 YESIKABOGDAN TREVINOAN N Ot Z87.891 PERSONAL HISTORY OF NICOTINE DEPENDENCE 01/17/2020 CRISTINE NAPOLES N Ot 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 01/17/2020 CRISTINE NAPOLES N Ot D61.818 OTHER PANCYTOPENIA 01/17/2020 YESIKA, BOBAN N Ot E78.00 PURE HYPERCHOLESTEROLEMIA, UNSPECIFIED 01/17/2020 YESIKA, BOBAN N Ot F32.9 MAJOR DEPRESSIVE DISORDER, SINGLE EPISOD 01/17/2020 CRISTINE NAPOLES N Ot I10 ESSENTIAL (PRIMARY) HYPERTENSION 01/17/2020 YESIKA BOBAN N Ot I25.10 ATHSCL HEART DISEASE OF [place] CORONARY 01/17/2020 CRISTINE NAPOLES N Ot J44.9 CHRONIC OBSTRUCTIVE PULMONARY DISEASE, U 01/17/2020 CRISTINE NAPOLES N Ot Z45.2 ENCOUNTER FOR ADJUSTMENT AND MANAGEMENT 01/17/2020 CRISTINE NAPOLES N Ot Z79.82 CAREERS ADVISER (CURRENT) USE OF ASPIRIN 01/17/2020 YESIKA BOBAN N Ot Z87.891 PERSONAL HISTORY OF [...] 10/20 12:59 Blood monocytes/100 leukocytes 20 % NRG Manual blood segmented neutrophils/100 leukocytes 51 % NRG Blood band neutrophils/100 leukocytes 1 % NRG Manual blood lymphocytes/100 leukocytes 26 % NRG Manual eosinophils/100 leukocytes in nose 1 % NRG Manual blood basophils/100 leukocytes 0 % NRG Blood lymphocytes variant/100 leukocytes 1 % NRG Blood anisocytosis detection by light microscopy S LIGHT NRG Blood macrocytes detection by light microscopy SLI GHT NR Bacterial blood culture - 09/21/19 12:59 Bacterial blood culture NG NRG Bacterial blood culture - 09/21/19 12:59 Bacterial blood culture NG NRG Influenza virus A and B antigen detectio n - 09/21/19 15:20 FLU RESULT NEGATIVE FOR INFLUENZA A AND B ANTIGENS BY IA NR Sputum Gram stain - 09/21/19 15:55 Sputum Gram stain relevant, interpret with caution . NRG Bacterial sputum culture - 09/21/19 15:5 5 QUANTITY OF GROWTH . [facility] Bacterial sputum culture SEE COMMEN [facility] Complete blood count (CBC) with automate d [...] finding identification by light micr oscopy YES NRG Comprehensive metabolic panel - 10/07/19 13:29 Serum [...] Automated blood platelet mean volume measurement 11.2 [[facility]_] 7.4-10.4 Automated blood neutrophils/100 leukocytes 15 % [...] NRG Manual blood lymphocytes/100 leukocytes 73 % NR Blood polychromasia detection by light microscopy SLIGHT NRG Blood anisocytosis detection by light microscopy M ODERATE NRG Blood macrocytes detection by light microscopy MOD ERATE NR Blood ovalocytes detection by light microscopy [facility] Blood sarahy cells detection by light microscopy [facility] Automated reticulocyte percentage - 10/01 04/19 07:55 [...] in platelet poor plasma bycoagulation assay - 02/18/20 07:55 Activated partial thromboplastin time (a PTT) [...] poor plasma by coag ulation assay - 04/13/20 13:25 Prothrombin time (PT) in platelet poor [...] plasma alkaline phosphatase travis surement (enzymatic activity/volume) 74 U/L 40-136 Serum [...] NRG RED CELLS LEUKO REDUCED AS1 - 04/13/20 1 4:53 RED CELLS LEUKO REDUCED AS1 T RANSFUSED 12/12/19 1750 NRG Blood type T Indirect antibody screen pa adrienne - 12/12/19 14:53 WRISTBAND NUMBER [id number] NRG ABO+Rh group OP NRG Blood group [...] Complaint KSWebIZ 12/06/2014 09:11:16 ACT Document Registration [id number] 02/01/2020 12:49:00 23:59:59 CLS Outpatient CRISTINE NAPOLES [facility] ONC [id number] 01/09/2020 12:59:00 00:01:00 DIS Outpatient CRISTINE NAPOLES [facility] ONC [id number] 12/16/2019 14:03:00 15:08:00 DIS Emergency VANDANA MARCUM MD [facility] ER NOSE BLEED [id number] 12/12/2019 15:00:00 14:01:00 DIS Inpatient HAYLEE PIPER DO [facility] 4TH ANEMIA,WEAKNESS,PANCYTOPENIA,POOR APPETITE [id number] 11/10/2019 11:26:00 15:50:00 DIS Outpatient MERCEDES SMART MD [facility] SDC MYELODYSPLASTIC SYNDROM E [id number] 11/09/2019 09:14:00 10:12:00 DIS Outpatient MERCEDES SMART MD [facility] PREOP MYELODYSPLASTIC SYNDROM E [id number] 10/19/2019 15:30:00 23:59:59 CLS Preadmit ORENDER DO HAYLEE S [facility] PULM COPD [id number] 10/18/2019 07:34:00 12:00:00 DIS Outpatient CRISTINE NAPOLES [facility] SDC THROMBOCYTOPENIA [id number] 10/07/2019 12:42:00 15:23:00 DIS Emergency YULIANA TEJADA APRN [facility] ER ABNORMAL LAB RESULTS;CRYS GUERRA [id number] 09/21/2019 12:14:00 10:55:00 DIS Inpatient JUNNDER DO HAYLEE S [facility] 4TH PNEUMONIA,COPD EXACERBATION [id number] 09/21/2019 11:46:00 23:59:59 CLS Preadmit JUNBASIAER DO HAYLEE S PNEUMONIA,COPD [id number] 03/18/2019 09:27:00 019 11:02:00 DIS Outpatient LULU LENZ MD [facility] RIGHT EYE [id number] 03/16/2019 05:38:00 019 08:54:00 DIS Outpatient LULU LENZ MD [facility] PREOP RIGHT CATARACT [id number] 05/15/2018 11:09:00 018 14:01:00 DIS Emergency VANDANA MARCUM MD [facility] ER WHEEZING,COUGH, HEADACHE [id number] 05/26/2017 07:35:00 017 23:59:59 CLS Outpatient KYRAA MAHAJAN FACC, JIM FLORES CC DS [facility] CARD CAD I25.10 [id number] 05/23/2017 19:54:00 017 06:30:00 DIS Outpatient MYRNA PANDYA APRN [facility] SLEEP ACE G47.33 [id number] 05/18/2017 14:17:00 017 23:59:59 CLS Outpatient MYRNA PANDYA APRN [facility] RT COPD J43.8 [id number] 04/29/2017 22:07:00 017 15:23:00 DIS Inpatient ORENDER SEEMA RESENDIZLINE S [facility] 4TH CHEST PAIN WITH ACUTE ISCHEMIC EKG CHANGES [id number] 01/16/2017 11:01:00 017 12:02:00 DIS Outpatient YAYA MARIE MD [facility] CARD DISC DISORDER [id number] 12/30/2016 10:38:00 017 23:59:59 CLS Outpatient KYARA MAHAJAN FACC, JIM FLORES CC DS [facility] CARD R06.02 I25. 10 I65.23 [id number] 12/25/2016 13:08:00 017 11:18:00 DIS Inpatient JUNSEEMA SINGH DOLINE S [facility] 4TH ORTHOSTATIC HTN [id number] 12/11/2016 14:19:00 017 23:59:59 CLS Outpatient LATRICIA ALVARES APRN [facility] RAD COUGH,CHEST CON GESTION [id number] 12/17/2015 12:28:00 016 13:26:00 DIS Outpatient YAYA MARIE MD [facility] CARD DISC DISORDER W/RADICUL OPATHY [id number] 11/19/2015 10:13:00 016 23:59:59 CLS Outpatient LATRICIA ALVARES APRN [facility] RAD FOLLOW UP FOR L ALBERTO NODULE [id number] 10/19/2015 18:11:00 016 20:07:00 DIS Emergency SYED DOLYNETTEA Albina [facility] ER PULSE;BP [id number] 10/05/2015 07:23:00 016 08:12:00 DIS Outpatient YAYA MARIE MD [facility] CARD DISC DISORDER [id number] 08/21/2015 08:27:00 015 13:24:00 DIS Inpatient CHENG FATIMA DO [facility] 4TH LLL PNEUMONIA L EUKOCYTOSIS [id number] 08/13/2015 13:07:00 015 23:59:59 CLS Outpatient YAYA MARIE MD [facility] CARD DISC DISORDER W/ RADICU LOPATHY LUMBAR [id number] 07/04/2015 08:51:00 23:59:59 CLS Outpatient YAYA MARIE MD [facility] RAD LOW BACK PAIN [id number] 06/28/2015 07:01:00 015 23:59:59 CLS Outpatient ERICK NASH [facility] CARD CAD,CP [id number] 06/27/2015 08:19:00 015 23:59:59 CLS Outpatient HAYLEE PIPER DO [facility] RAD THYROID NODULE [id number] 12/06/2014 09:10:00 015 12:49:00 DIS Outpatient MERCEDES SMART MD [facility] HISTORY OF POLYPS; BLOO D IN STOOLS [id number] 12/05/2014 05:44:00 015 23:59:59 CLS Outpatient MERCEDES SMART MD [facility] PREOP HISTORY OF POLYPS; BLOO D IN STOOLS [id number] 10/25/2013 11:42:00 014 00:01:00 DIS Outpatient MAGDA DOMINIQUE MD [facility] LAB DIARRHEA [id number] 11/15/2013 13:00:00 014 23:59:59 CLS Outpatient CHENG FATIMA DO [facility] LAB DIARRHEA [id number] 08/11/2013 12:00:00 014 00:01:00 DIS Outpatient VANDANA MARCUM MD [facility] LAB CHRONIC DIARRHE A [id number] 08/05/2013 10:55:00 14:55:00 DIS Emergency VANDANA MARCUM MD [facility] ER DIARRHEA/VOMITI NG [id number] 06/20/2013 10:31:00 23:59:59 CLS Outpatient KYARA MAHAJAN FACC, JIM DENSONP CC DS [facility] RAD CP,CAD,HTN, HLP [id number] 04/28/2013 09:29:00 23:59:59 CLS Outpatient MERCEDES SMART MD [facility] RAD ABD PAIN,BLOATING,DIARR HEA [id number] 04/27/2013 08:35:00 13:00:00 DIS Outpatient MERCEDES SMART MD [facility] ABDOMINAL PAIN [id number] 04/22/2013 07:38:00 23:59:59 CLS Outpatient MERCEDES SMART MD [facility] RAD DIARRHEA [id number] 04/20/2013 07:15:00 23:59:59 CLS Outpatient MERCEDES SMART MD [facility] PREOP ABDOMINAL PAIN [id number] 01/28/2013 06:51:00 08:00:00 DIS Outpatient [facility] [id number] 01/25/2013 14:31:00 23:59:59 CLS Outpatient JERONIMO PITTMAN MD [facility] PREOP RIGHT THYROID NODULE [id number] 12/23/2012 10:27:00 23:59:59 CLS Outpatient JERONIMO PITTMAN MD [facility] RAD THYROID NODULE [id number] 12/08/2014 09:56:00 Document Registration [id number] 12/08/2014 09:56:00 Document Registration [id number] 12/08/2014 09:56:00 Document Registration [id number] 12/08/2014 09:56:00 Document Registration [id number] 12/08/2014 09:56:00 Document Registration [id number] 12/08/2014 09:56:00 Document Registration [id number] 12/08/2014 09:56:00 Document Registration [id number] 10/27/2014 20:51:00 Document Registration [id number] 01/24/2014 00:00:00 Document Registration [id number] 11/06/2013 00:00:00 Document Registration [id number] 11/25/2012 09:48:00 Document Registration [id number] 09/09/2012 07:57:00 Document Registration [id number] 05/19/2012 12:16:00 Document Registration [id number] 02/06/2012 08:09:00 Document Registration [id number] 02/05/2012 08:37:00 Document Registration [id number] 01/08/2012 07:20:00 Document Registration [id number] 12/29/2011 13:23:00 Document Registration [id number] 12/24/2011 16:05:00 Document Registration [id number] 06/17/2011 05:31:00 Document Registration [id number] 06/16/2011 09:40:00 Document Registration [id number] 06/05/2011 15:31:00 Document Registration [id number] 11/28/2010 09:37:00 Document Registration [id number] 04/02/2010 06:01:00 Document Registration [id number] 07/19/2009 13:39:00 Document Registration [id number] 07/02/2009 08:41:00 Document Registration 12/201509/02/2019 11:49:49 09/02/2019 23:59 :59 Haylee Gerard [id number] 10/10/2019 11:21:00 Document Registration
[2020-02-05 15:32] LABS: CALCIUM 8.8 MG/DL (8.5-10.1)
[2020-02-05 15:33] LABS: GLUCOSE 129 MG/DL (70-105); TOTAL PROTEIN 6.3 GM/DL (6.4-8.2)
[2020-02-05 15:34] LABS: CARBON DIOXIDE 22 MMOL/L (21-32)
[2020-02-05 15:35] LABS: BILIRUBIN,TOTAL 0.6 MG/DL (0.1-1.0)
[2020-02-05 15:37] LABS: ALKALINE PHOSPHATASE 71 U/L (40-136); CREATININE SERUM 0.76 MG/DL (0.60-1.30); GFR ESTIMATED > 60
--- NOTE | 2020-02-05 15:37 | ED General ---
General Chief Complaint: General Problems/Pain Stated Complaint: CHILLS History of Present Illness Date Seen by Provider: Feb 05, 2020 Time Seen by Provider: 15:20 Initial Comments 79-year-old male presents for tremors. The patient describes it as chills and muscle spasms. He denies being cold or running fevers. He had no cough. He is been staying inside. He has a history of myelodysplastic syndrome with pancytopenia. [facility] is followed at cancer [facility]. 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 He has a port in the left chest wall. Timing/Duration: 2-3 Days Severity: Mild Associated Systoms: Denies Symptoms; No Chest Pain, No Cough, No Diaphoresis, No Fever/Chills, No Headaches, No Loss of Appetite; Malaise; No Nausea/Vomiting, No Rash, No Seizure, No Shortness of Air, No Syncope; Weakness (chronic, no change from baseline) Allergies and Home Medications Allergies Coded Allergies: Sulfa (Sulfonamide Antibiotics) (Verified Allergy, Unknown, 11/09/19) Home Medications Albuterol Sulfate 18 Gm Hfa.aer.ad, 2 PUFF INH Q4H PRN for SHORTNESS OF BREATH, (Reported) Amlodipine Besylate 5 Mg Tablet, 5 MG PO DAILY PRN for IF BP >170, (Reported) Atorvastatin Calcium 40 Mg Tablet, 40 MG PO DAILY, (Reported) Baclofen 20 Mg Tablet, 20 MG PO BID PRN for SPASMS, (Reported) Cholecalciferol (Vitamin D3) 25 Mcg Capsule, 25 MCG PO DAILY, (Reported) Dexlansoprazole 60 Mg Capbp, 60 MG PO DAILY, (Reported) Docusate Sodium 100 Mg Capsule, 100 MG PO BID, (Reported) Duloxetine HCl 60 Mg Capsule.dr, 60 MG PO DAILY Prescribed by: KENYETTA PIPER on 09/23/19 1439 Furosemide 40 Mg Tablet, 40 MG PO PRN, (Reported) Hydrocodone Bit/Acetaminophen 1 Each Tablet, 1 TAB PO Q4H PRN for PAIN-MODERATE (5-7), (Reported) Ipratropium [place] 15 Ml Naspr, 2 SPRAYS NS DAILY, (Reported) Ipratropium [place] 30 Ml [place], 30 ML NS for PRN, (Reported) Metoprolol Succinate 100 Mg Tab.er.24h, 100 MG PO DAILY, (Reported) Montelukast Sodium 10 Mg Tablet, 10 MG PO HS, (Reported) Ondansetron 8 Mg Tab.rapdis, 8 MG PO Q8H PRN for NAUSEA/VOMITING-1ST LINE, (Reported) Potassium Chloride 10 Meq Tablet.er, 10 MEQ PO DAILY PRN for WITH LASIX, (Reported) Patient Home Medication List Home Medication List Reviewed: Yes Review of Systems Review of Systems Constitutional: see HPI, weakness EENTM: see HPI, no symptoms reported Respiratory: no symptoms reported, see HPI Cardiovascular: no symptoms reported, see HPI Gastrointestinal: no symptoms reported, see HPI Genitourinary: no symptoms reported, see HPI Musculoskeletal: see HPI, muscle twitching Skin: no symptoms reported, see HPI Hematologic/Lymphatic: See HPI, Anemia All Other Systems Reviewed Negative Unless Noted: Yes Past Kpegugw-Yjhywa-Hzvmba Hx Past Med/Social Hx: Reviewed Nursing Past Med/Soc Hx Patient Social History Type Used: Cigarettes Former Smoker, Quit: Aug 31, 2012 2nd Hand Smoke Exposure: No Recent Foreign Travel: No Contact w/Someone Who Travel: No Recent Hopitalizations: No Immunizations Up To Date Tetanus Booster (TDap): More than 5yrs PED Vaccines UTD: No Date of Pneumonia Vaccine: Jun 30, 2019 Date of Influenza Vaccine: May 31, 2019 Seasonal Allergies Seasonal Allergies: Yes Past Medical History Surgeries: Yes (CATARACTS) Cardiac, Coronary Stent, Eye Surgery, Orthopedic, Vascular Surgery Respiratory: Yes (COPD) Pneumonia, COPD Currently Using CPAP: No Currently Using BIPAP: No Cardiac: Yes (STENTS IN HEART, CAROTID ARTERY, LEGS) Coronary Artery Disease, High Cholesterol, Hypertension, Peripheral Vascular Neurological: No Reproductive Disorders: No Sexually Transmitted Disease: No HIV/AIDS: No Genitourinary: Yes Prostate Problems Gastrointestinal: Yes (ABDOMINAL PAIN AT TIMES) Gastroesophageal Reflux, Diverticulosis, Hemorrhoids Musculoskeletal: Yes (ARTHRITIS "ALL OVER") Degenerate Disk Disease, Arthritis, Chronic Back Pain Endocrine: No HEENT: No Loss of Vision: Denies Hearing Impairment: Denies Cancer: Yes (bone marrow cancer) Did You Recieve Any Treatments: Yes What Type of Treatment Did You: Chemotherapy Psychosocial: Yes Depression Integumentary: No Blood Disorders: No Adverse Reaction/Blood Tranf: No Family Medical History Patient reports no known family medical history. No Pertinent Family Hx Physical Exam Vital Signs Vital Signs - First Documented 02/05/20 15:33 Temp 36.7 Pulse 83 Resp 21 B/P (MAP) 160/57 (91) Pulse Ox 96 Capillary Refill : Height, Weight, BMI Height: 5'10.00" Weight: 245lbs. 3.0oz. 111.461789tf; 31.00 BMI Method:Stated General Appearance: No Apparent Distress, WD/WN, Chronically ill Eyes: Bilateral Eye Normal Inspection, Bilateral Eye PERRL, Bilateral Eye Abnormal EOM HEENT: PERRL/EOMI, TMs Normal, Normal ENT Inspection, Pharynx Normal Neck: Full Range of Motion, Normal Inspection, Non Tender, Supple Respiratory: Chest Non Tender, Lungs Clear, Normal Breath Sounds Cardiovascular: Regular Rate, Rhythm, No Edema, No Murmur, Normal Peripheral Pulses Gastrointestinal: Normal Bowel Sounds, Non Tender, Soft Back: Normal Inspection, No CVA Tenderness, No Vertebral Tenderness Extremity: Normal Capillary Refill, Normal Inspection, Normal Range of Motion (with intential tremor noted to UEs. ), No Pedal Edema Neurologic/Psychiatric: Alert, Oriented x3, No Motor/Sensory Deficits, Normal Mood/Affect Skin: Normal Color, Warm/Dry Focused Exam Lactate Level 02/05/20 15:10: Lactic Acid Level 2.51*H Lactic Acid Level Progress/Results/Core Measures Suspected Sepsis SIRS Temperature: Pulse: Respiratory Rate: Laboratory Tests 02/05/20 15:10: White Blood Count 4.7 Blood Pressure / Mean: 02/05/20 15:10: Lactic Acid Level 2.51*H Laboratory Tests 02/05/20 15:10: Creatinine 0.76, Platelet Count 99L, Total Bilirubin 0.6 Results/Orders Lab Results Laboratory Tests Test 02/05/20 15:10 02/05/20 16:15 Range/Units White Blood Count 4.7 4.3-11.0 10^3/uL Red Blood Count 2.88 L 4.35-5.85 10^6/uL Hemoglobin 9.4 L 13.3-17.7 G/DL Hematocrit 30 L 40-54 % Mean Corpuscular Volume 103 H 80-99 FL Mean Corpuscular Hemoglobin 33 25-34 PG Mean Corpuscular Hemoglobin Concent 32 32-36 G/DL Red Cell Distribution Width 20.6 H 10.0-14.5 % Platelet Count 99 L 130-400 10^3/uL Mean Platelet Volume 10.0 7.4-10.4 FL Neutrophils (%) (Auto) 76 H 42-75 % Lymphocytes (%) (Auto) 10 L 12-44 % Monocytes (%) (Auto) 12 0-12 % Eosinophils (%) (Auto) 2 0-10 % Basophils (%) (Auto) 0 0-10 % Neutrophils # (Auto) 3.6 1.8-7.8 X 10^3 Lymphocytes # (Auto) 0.5 L 1.0-4.0 X 10^3 Monocytes # (Auto) 0.6 0.0-1.0 X 10^3 Eosinophils # (Auto) 0.1 0.0-0.3 10^3/uL Basophils # (Auto) 0.0 0.0-0.1 10^3/uL Sodium Level 133 L 135-145 MMOL/L Potassium Level 4.6 3.6-5.0 MMOL/L Chloride Level 99 98-107 MMOL/L Carbon Dioxide Level 22 21-32 MMOL/L Anion Gap 12 5-14 MMOL/L Blood Urea Nitrogen 13 7-18 MG/DL Creatinine 0.76 0.60-1.30 MG/DL Estimat Glomerular Filtration Rate > 60 BUN/Creatinine Ratio 17 Glucose Level 129 H 70-105 MG/DL Lactic Acid Level 2.51 *H 0.50-2.00 MMOL/L Calcium Level 8.8 8.5-10.1 MG/DL Corrected Calcium 9.3 8.5-10.1 MG/DL Total Bilirubin 0.6 0.1-1.0 MG/DL Aspartate Amino Transf (AST/SGOT) 15 5-34 U/L Alanine Aminotransferase (ALT/SGPT) 26 0-55 U/L Alkaline Phosphatase 71 40-136 U/L C-Reactive Protein High Sensitivity 10.44 H 0.00-0.50 MG/DL Total Protein 6.3 L 6.4-8.2 GM/DL Albumin 3.4 3.2-4.5 GM/DL Urine Color YELLOW Urine Clarity CLEAR Urine pH 7.5 5-9 Urine Specific [place] 1.015 L 1.016-1.022 Urine Protein NEGATIVE NEGATIVE Urine Glucose (UA) NEGATIVE NEGATIVE Urine Ketones NEGATIVE NEGATIVE Urine Nitrite NEGATIVE NEGATIVE Urine Bilirubin NEGATIVE NEGATIVE Urine Urobilinogen 0.2 < = 1.0 MG/DL Urine Leukocyte Esterase NEGATIVE NEGATIVE Urine RBC (Auto) NEGATIVE NEGATIVE Urine RBC NONE /HPF Urine WBC NONE /HPF Urine Squamous Epithelial Cells RARE /HPF Urine Crystals NONE /LPF Urine Bacteria NEGATIVE /HPF Urine Casts NONE /LPF Urine Mucus NEGATIVE /LPF Urine Culture Indicated NO My Orders Orders - REJI LOPEZ Cbc With Automated Diff (02/05/20 15:04) Comprehensive Metabolic Panel (02/05/20 15:04) Ua Culture If Indicated (02/05/20 15:04) Blood Culture (02/05/20 15:04) Lactic Acid Analyzer (02/05/20 15:04) Chest 1 View, Ap/Pa Only (02/05/20 15:04) Ed Iv/Invasive Line Start (02/05/20 16:17) Ns Iv 500 Ml (Sodium Chloride 0.9%) (02/05/20 16:17) Hs C Reactive Protein (02/05/20 16:18) Ceftriaxone For Iv Use (Rocephin For I (02/05/20 17:00) Medications Given in ED Current Medications Medications Dose Ordered Sig/Zohreh Route Start Time Stop Time Status Last Admin Dose Admin Ceftriaxone Sodium 1000 mg/ Sterile Water 10 ml @ 200 mls/hr ONCE ONCE IV 02/05/20 17:00 02/05/20 17:02 DC 02/05/20 16:55 200 MLS/HR Sodium Chloride 500 ml @ 0 mls/hr Q0M ONCE IV 02/05/20 16:17 02/05/20 16:18 DC 02/05/20 16:24 500 MLS/HR Vital Signs/I&O 02/05/20 02/05/20 15:33 17:10 Temp 36.7 Pulse 83 76 Resp 21 15 B/P (MAP) 160/57 (91) 135/56 (91) Pulse Ox 96 96 Capillary Refill : Progress Note : Time: 15:20 Progress Note Patient seen and evaluated, will obtain labs, Chest x-ray and will re-evaluate. 1600 Tremor only noted when trying to perform fine and gross motor skills, isolated to specific extremity and not generalized shaking. 1615 Family called, concerned because he had fever of 100 last pm, but improved to 97 by HS. Discussed admission vs outpatient management, patient refuses admission. Spoke to Dr. Piper, agreed with plan for outpatient management, after IVF. 1640 Family updated, by phone. IVF infusing. 1700 Discharge instructions and return precautions reviewed. Keep appt for Chemo for tomorrow. Diagnostic Imaging Diagonstic Imaging: Xray Plain Films/CT/US/NM/MRI: chest Comments NAME: STEPHANY TIJERINA [facility] REC#: [id number] PT STATUS: REG ER : 1940 PHYSICIAN: REJI LOPEZ ADMIT DATE: 02/05/20/ER Draft Date of Exam:02/05/20 CHEST 1 VIEW, AP/PA ONLY CLINICAL INDICATION: Patient complains of shakiness and increased thirst. EXAM: Portable chest x-ray upright view. COMPARISONS: Chest x-ray dated 12/12/2019. FINDINGS: Lungs/pleura: Lungs are clear. There is no pneumothorax. There is no pleural effusion. Mediastinum: Unremarkable. Pulmonary vasculature: Unremarkable. Heart: Unremarkable. Bones/extrathoracic soft tissue: There are small degenerative spurs involving the thoracic spine. Neurostimulator electrode paddle is seen overlying the midthoracic spine. IMPRESSION: Stable chest x-ray exam with no interval radiographic evidence of acute cardiopulmonary process. Dictated on workstation # [id number] Dict: 02/05/20 1551 Trans: 02/05/20 1556 [id number] Interpreted by: CHRISSIE PLASCENCIA MD Electronically signed by: Reviewed: Reviewed by Me Departure Impression Primary Impression: Weakness Additional Impression: Tremor observed on examination Disposition: HOME, SELF-CARE Condition: Improved (1630) Departure-Patient Inst. Decision time for Depature: 16:30 Referrals: KENYETTA PIPER DO (PCP/Family) Primary Care Physician Patient Instructions: Fatigue (DC), Generalized Weakness (DC) Add. Discharge Instructions: Increase fluid intake, 16 ounces every 2 hours while awake. Keep appointment for chemotherapy for tomorrow. Return to emergency department for new, urgent health care needs All discharge instructions reviewed with patient and/or family. Voiced understanding. Copy Copies To 1: CRISTINE NAPOLES; KENYETTA PIPER AMY ARNP Feb 05, 2020 15:37
[2020-02-05 15:38] LABS: BUN/CREATININE RATIO 17
[2020-02-05 15:40] LABS: ALANINE AMINOTRANSFERASE 26 U/L (0-55)
--- NOTE | 2020-02-05 15:50 | NUR ---
PT REFUSED 2ND BLOOD CULTURES
--- NOTE | 2020-02-05 15:56 | Diagnostic Imaging Report ---
CLINICAL INDICATION: Patient complains of shakiness and increased thirst. EXAM: Portable chest x-ray upright view. COMPARISONS: Chest x-ray dated 12/12/2019. FINDINGS: Lungs/pleura: Lungs are clear. There is no pneumothorax. There is no pleural effusion. Mediastinum: Unremarkable. Pulmonary vasculature: Unremarkable. Heart: Unremarkable. Bones/extrathoracic soft tissue: There are small degenerative spurs involving the thoracic spine. Neurostimulator electrode paddle is seen overlying the midthoracic spine. IMPRESSION: Stable chest x-ray exam with no interval radiographic evidence of acute cardiopulmonary process. Dictated by: Dictated on workstation # [id number]
[2020-02-05] MEDS ORDERED: NS IV 500 ML 500 ML IV ONE (16:17)
[2020-02-05 16:21] LABS: BILIRUBIN,URINE NEGATIVE (NEGATIVE); CLARITY,URINE CLEAR; COLOR,URINE YELLOW; GLUCOSE, URINE (UA) NEGATIVE (NEGATIVE); KETONES,URINE NEGATIVE (NEGATIVE); LEUKOCYTE ESTERASE ,URINE NEGATIVE (NEGATIVE); NITRITE,URINE NEGATIVE (NEGATIVE); PH,URINE 7.5 (5-9); PROTEIN,URINE NEGATIVE (NEGATIVE)
--- NOTE | 2020-02-05 16:24 | NUR ---
DAUGHTER STATES PT HAS TEMP OF 101 YESTERDAY AND WANTS PT ADMITTED
[2020-02-05 16:28] LABS: BACTERIA,URINE NEGATIVE /HPF; SQUAMOUS EPITHELIAL CELL,UR RARE /HPF
[2020-02-05] MEDS ORDERED: cefTRIAXone FOR IV USE 1,000 MG in WATER (STERILE) FOR INJECTION 10 ML IV ONE (17:00)
[2020-02-05 17:10] VITALS: BP 135/56
== END 2020-02-05 17:10 | disposition home or self-care (01) ==
LOC: EDUNIT# 14:49 → ER 14:50
DX: R25.1 Tremor, unspecified (principal); R53.1 Weakness; I10 Essential (primary) hypertension; E78.00 Pure hypercholesterolemia, unspecified; J44.9 Chronic obstructive pulmonary disease, unspecified; I25.10 Atherosclerotic heart disease of native coronary artery without angina pectoris; K21.9 Gastro-esophageal reflux disease without esophagitis; F32.9 Major depressive disorder, single episode, unspecified; Z88.2 Allergy status to sulfonamides; Z87.891 Personal history of nicotine dependence; Z95.5 Presence of coronary angioplasty implant and graft; Z85.830 Personal history of malignant neoplasm of bone
CPT/HCPCS: 36415; 71045; 80053; 81000; 83605; 85025; 86141; 87040

== ENCOUNTER 2020-02-20 12:45 | Outpatient (RCR) | payer MEDICARE, OTHER ==
[2020-01-12 13:09] LABS: BASOPHILS # (AUTO) 0.1 10^3/uL (0.0-0.1); BASOPHILS % (AUTO) 5 % (0-10); EOSINOPHILS % (AUTO) 1 % (0-10); HEMATOCRIT 25 % (40-54); HEMOGLOBIN 8.1 G/DL (13.3-17.7); LYMPHOCYTES # (AUTO) 0.7 X 10^3 (1.0-4.0); LYMPHOCYTES % (AUTO) 64 % (12-44); MEAN CORPUSCULAR HEMOGLOBIN 34 PG (25-34); MEAN CORPUSCULAR HGB CONC 32 G/DL (32-36); MEAN CORPUSCULAR VOLUME 105 FL (80-99); MONOCYTES # (AUTO) 0.1 X 10^3 (0.0-1.0); MONOCYTES % (AUTO) 6 % (0-12); NEUTROPHILS # (AUTO) 0.3 X 10^3 (1.8-7.8); NEUTROPHILS % (AUTO) 25 % (42-75); PLATELET COUNT 222 10^3/uL (130-400)
[2020-01-16 13:33] LABS: BASOPHILS # (AUTO) 0.1 10^3/uL (0.0-0.1); BASOPHILS % (AUTO) 7 % (0-10); EOSINOPHILS % (AUTO) 0 % (0-10); HEMATOCRIT 27 % (40-54); HEMOGLOBIN 8.7 G/DL (13.3-17.7); LYMPHOCYTES # (AUTO) 0.5 X 10^3 (1.0-4.0); LYMPHOCYTES % (AUTO) 58 % (12-44); MEAN CORPUSCULAR HEMOGLOBIN 34 PG (25-34); MEAN CORPUSCULAR HGB CONC 32 G/DL (32-36); MEAN CORPUSCULAR VOLUME 106 FL (80-99); MEAN PLATELET VOLUME 8.7 FL (7.4-10.4); MONOCYTES # (AUTO) 0.1 X 10^3 (0.0-1.0); MONOCYTES % (AUTO) 11 % (0-12); NEUTROPHILS # (AUTO) 0.2 X 10^3 (1.8-7.8); NEUTROPHILS % (AUTO) 25 % (42-75); PLATELET COUNT 291 10^3/uL (130-400)
[2020-01-16 13:35] LABS: WHITE BLOOD COUNT 0.9 10^3/uL (4.3-11.0)
[2020-01-16 13:54] LABS: ALANINE AMINOTRANSFERASE 11 U/L (0-55); ALBUMIN 3.4 GM/DL (3.2-4.5); ALKALINE PHOSPHATASE 79 U/L (40-136); BILIRUBIN,TOTAL 0.6 MG/DL (0.1-1.0); BUN/CREATININE RATIO 13; CALCIUM 8.5 MG/DL (8.5-10.1); CARBON DIOXIDE 25 MMOL/L (21-32); CHLORIDE 107 MMOL/L (98-107); GFR ESTIMATED > 60; GLUCOSE 140 MG/DL (70-105); POTASSIUM 4.2 MMOL/L (3.6-5.0); SODIUM 141 MMOL/L (135-145); TOTAL PROTEIN 6.2 GM/DL (6.4-8.2)
[2020-01-24 15:04] LABS: BASOPHILS % (AUTO) 2 % (0-10); EOSINOPHILS % (AUTO) 1 % (0-10); HEMATOCRIT 28 % (40-54); HEMOGLOBIN 8.8 G/DL (13.3-17.7); LYMPHOCYTES # (AUTO) 0.6 X 10^3 (1.0-4.0); LYMPHOCYTES % (AUTO) 33 % (12-44); MEAN CORPUSCULAR HEMOGLOBIN 33 PG (25-34); MEAN CORPUSCULAR HGB CONC 32 G/DL (32-36); MEAN CORPUSCULAR VOLUME 103 FL (80-99); MEAN PLATELET VOLUME 8.9 FL (7.4-10.4); MONOCYTES # (AUTO) 0.9 X 10^3 (0.0-1.0); MONOCYTES % (AUTO) 44 % (0-12); NEUTROPHILS # (AUTO) 0.4 X 10^3 (1.8-7.8); NEUTROPHILS % (AUTO) 20 % (42-75); PLATELET COUNT 227 10^3/uL (130-400); RED CELL DISTRIBUTION WIDTH 21.6 % (10.0-14.5); WHITE BLOOD COUNT 1.9 10^3/uL (4.3-11.0)
[2020-01-24 15:21] LABS: BUN/CREATININE RATIO 13; CALCIUM 8.7 MG/DL (8.5-10.1); CARBON DIOXIDE 24 MMOL/L (21-32); CHLORIDE 102 MMOL/L (98-107); CREATININE SERUM 0.82 MG/DL (0.60-1.30); GFR ESTIMATED > 60; GLUCOSE 128 MG/DL (70-105); POTASSIUM 4.2 MMOL/L (3.6-5.0); SODIUM 137 MMOL/L (135-145)
[2020-01-30 13:12] LABS: BASOPHILS % (AUTO) 1 % (0-10); EOSINOPHILS # (AUTO) 0.1 10^3/uL (0.0-0.3); EOSINOPHILS % (AUTO) 3 % (0-10); HEMATOCRIT 30 % (40-54); HEMOGLOBIN 9.4 G/DL (13.3-17.7); LYMPHOCYTES # (AUTO) 0.8 X 10^3 (1.0-4.0); LYMPHOCYTES % (AUTO) 19 % (12-44); MEAN CORPUSCULAR HEMOGLOBIN 33 PG (25-34); MEAN CORPUSCULAR HGB CONC 32 G/DL (32-36); MEAN CORPUSCULAR VOLUME 104 FL (80-99); MEAN PLATELET VOLUME 9.3 FL (7.4-10.4); MONOCYTES # (AUTO) 0.9 X 10^3 (0.0-1.0); MONOCYTES % (AUTO) 21 % (0-12); NEUTROPHILS # (AUTO) 2.2 X 10^3 (1.8-7.8); NEUTROPHILS % (AUTO) 56 % (42-75); PLATELET COUNT 184 10^3/uL (130-400)
[2020-01-30 13:29] LABS: BUN/CREATININE RATIO 19; CALCIUM 9.3 MG/DL (8.5-10.1); CARBON DIOXIDE 27 MMOL/L (21-32); CHLORIDE 103 MMOL/L (98-107); CREATININE SERUM 0.83 MG/DL (0.60-1.30); GFR ESTIMATED > 60; GLUCOSE 122 MG/DL (70-105); POTASSIUM 4.2 MMOL/L (3.6-5.0); SODIUM 138 MMOL/L (135-145)
[2020-01-31 13:08] LABS: BILIRUBIN,URINE NEGATIVE (NEGATIVE); CLARITY,URINE CLEAR; COLOR,URINE YELLOW; GLUCOSE, URINE (UA) NEGATIVE (NEGATIVE); KETONES,URINE NEGATIVE (NEGATIVE); LEUKOCYTE ESTERASE ,URINE NEGATIVE (NEGATIVE); NITRITE,URINE NEGATIVE (NEGATIVE); PROTEIN,URINE NEGATIVE (NEGATIVE)
[2020-01-31 13:30] LABS: BACTERIA,URINE NEGATIVE /HPF; CALCIUM OXALATE CRYSTALS,UR FEW /LPF
[2020-02-13 13:29] LABS: BASOPHILS % (AUTO) 1 % (0-10); EOSINOPHILS % (AUTO) 1 % (0-10); HEMATOCRIT 28 % (40-54); HEMOGLOBIN 8.9 G/DL (13.3-17.7); LYMPHOCYTES # (AUTO) 0.4 X 10^3 (1.0-4.0); LYMPHOCYTES % (AUTO) 12 % (12-44); MEAN CORPUSCULAR HEMOGLOBIN 32 PG (25-34); MEAN CORPUSCULAR HGB CONC 32 G/DL (32-36); MEAN CORPUSCULAR VOLUME 101 FL (80-99); MEAN PLATELET VOLUME 9.7 FL (7.4-10.4); MONOCYTES # (AUTO) 0.3 X 10^3 (0.0-1.0); MONOCYTES % (AUTO) 10 % (0-12); NEUTROPHILS # (AUTO) 2.3 X 10^3 (1.8-7.8); NEUTROPHILS % (AUTO) 76 % (42-75); PLATELET COUNT 193 10^3/uL (130-400); RED CELL DISTRIBUTION WIDTH 19.9 % (10.0-14.5)
[2020-02-13 13:56] LABS: BUN/CREATININE RATIO 23; CARBON DIOXIDE 24 MMOL/L (21-32); CHLORIDE 102 MMOL/L (98-107); CREATININE SERUM 0.82 MG/DL (0.60-1.30); GFR ESTIMATED > 60; GLUCOSE 83 MG/DL (70-105); POTASSIUM 4.5 MMOL/L (3.6-5.0); SODIUM 137 MMOL/L (135-145)
[~2020-02-20 12:45] MED LIST changes: +AZACITIDINE SQ SCH; +NS (IVPB) CANCER CENTER 250 ML IV SCH; +NS IV 500 ML (CANCER CENTER) IV SCH; +NS SQ SCH
[2020-02-20 13:06] LABS: BASOPHILS % (AUTO) 1 % (0-10); EOSINOPHILS % (AUTO) 1 % (0-10); HEMATOCRIT 31 % (40-54); HEMOGLOBIN 9.9 G/DL (13.3-17.7); LYMPHOCYTES # (AUTO) 0.5 X 10^3 (1.0-4.0); LYMPHOCYTES % (AUTO) 12 % (12-44); MEAN CORPUSCULAR HEMOGLOBIN 31 PG (25-34); MEAN CORPUSCULAR HGB CONC 32 G/DL (32-36); MEAN CORPUSCULAR VOLUME 99 FL (80-99); MEAN PLATELET VOLUME 9.4 FL (7.4-10.4); MONOCYTES # (AUTO) 0.4 X 10^3 (0.0-1.0); MONOCYTES % (AUTO) 10 % (0-12); NEUTROPHILS % (AUTO) 77 % (42-75); PLATELET COUNT 340 10^3/uL (130-400); WHITE BLOOD COUNT 3.9 10^3/uL (4.3-11.0)
[2020-02-20 13:09] LABS: SMEAR SCAN COMMENT YES
[2020-02-20 13:24] LABS: BUN/CREATININE RATIO 19; CALCIUM 9.2 MG/DL (8.5-10.1); CARBON DIOXIDE 24 MMOL/L (21-32); CHLORIDE 100 MMOL/L (98-107); CREATININE SERUM 0.84 MG/DL (0.60-1.30); GFR ESTIMATED > 60; GLUCOSE 115 MG/DL (70-105); POTASSIUM 4.2 MMOL/L (3.6-5.0); SODIUM 134 MMOL/L (135-145)
== END 2020-04-11 | disposition home or self-care (01) ==
LOC: ONC 12:45
PROVIDERS: ATTEND Internal Medicine Hematology & Oncology
DX: Z45.2 Encounter for adjustment and management of vascular access device (principal); D61.818 Other pancytopenia; J44.9 Chronic obstructive pulmonary disease, unspecified; I10 Essential (primary) hypertension; E78.00 Pure hypercholesterolemia, unspecified; I25.10 Atherosclerotic heart disease of native coronary artery without angina pectoris; F32.9 Major depressive disorder, single episode, unspecified; D46.22 Refractory anemia with excess of blasts 2; Z79.82 Long term (current) use of aspirin; Z87.891 Personal history of nicotine dependence
CPT/HCPCS: 36591; 80048; 80053; 81000; 83615; 84153; 85025; 96375; 96409